=== PATIENT | male | born 1955 | race Caucasian/White ===

== ENCOUNTER 2017-03-17 09:00 | Outpatient (RCR) | payer OTHER, SELFPAY ==
[2017-02-17 00:57] VITALS: BP 186/82; PULSE 82; RESP 16; TEMP 37.1
[2017-02-19 13:16] VITALS: BP 155/77; PULSE 89; RESP 18; TEMP 37.1
--- NOTE | 2017-02-19 17:09 | PN.PCM_ITS ---
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 Current Visit: No Qualifiers: Laterality: right Qualified Code(s): L97.413 - Non-pressure chronic ulcer of right heel and midfoot with necrosis of muscle Code(s): L97.403 - Non-pressure chronic ulcer of unspecified heel and midfoot with necrosis of muscle (2) Cellulitis of left foot Status: Acute Current Visit: Yes Code(s): L03.116 - Cellulitis of left lower limb (3) Diabetic ulcer of left foot with fat layer exposed Status: Chronic Current Visit: Yes Qualifiers: Diabetes mellitus type: type 2 Code(s): E11.621 - Type 2 diabetes mellitus with foot ulcer; L97.522 - Non- pressure chronic ulcer of other part of left foot with fat layer exposed (4) Venous insufficiency of both lower extremities Status: Chronic Current Visit: Yes Code(s): I87.2 - Venous insufficiency ( chronic) (peripheral) (5) Gait instability Status: Chronic Current Visit: Yes Code(s): R26.81 - Unsteadiness on feet (6) Delayed wound healing Status: Chronic Current Visit: Yes Code(s): T14.8 - Other injury of unspecified body region (7) Vitamin D deficiency Status: Chronic Current Visit: Yes Code(s): E55.9 - Vitamin D deficiency, unspecified (8) Ulcer with necrosis of muscle Status: Chronic Current Visit: Yes (9) Infection of left foot Status: Chronic Current Visit: Yes Code(s): L08.9 - Local infection of the skin and subcutaneous tissue, unspecified (10) Charcot's joint of left foot Status: Chronic Current Visit: Yes Code(s): M14.672 - Charcot's joint, left ankle and foot Type of Wound Date of Service: 02/19/17 Chief Complaint: Left foot ulcer, charcot, cellultiis History of Wound: This is a 61 year old man with type 2 diabetes mellitus with neuropathy and Charcot neuroarthropathy presents with non-healing ulcer of L midfoot. He previously underwent a widespread debridement of his plantar foot located at his rocker-bottom Charcot deformity site with additional drainage of purulent abscess. He continues on a long course of IV antibiotics, vancomycin. He denies pain. He denies fever, chill, nausea, vomiting. He is trying to keep weight off of his foot by using a wheelchair. He resides at home at this time. He still looking into transportation availability for daily hyperbaric oxygen opportunity. Progress of Wound: Improving - Physical Exam Vital Signs Temp Pulse Resp BP 98.7 F 89 18 155/77 H 02/19/17 13:16 02/19/17 13:16 02/19/17 13:16 02/19/17 13:16 General: Alert, Oriented x3, Cooperative Extremities: No cyanosis, Capillary Refill Less than 3 Seconds, No Calf Tenderness, Diminished Peripheral Pulses, Peripheral Pulses Normal Skin: Ulcer/ Wound - No purulence, no erythema, no streaking, no necrosis, no odor left foot. His skin is atrophic. There is no exposed bone noted today Wound Measurements and Assessment - Nurse 1 - General Ulcer Measurement Start: 02/19/17 13:16 Freq: Status: Active Protocol: Activity Type Activity Date Activity User E-Sign Co-Sign Detail Recorded Client Recorded Date Recorded By Document 02/19/17 13:16 [id number] 02/19/17 13:27 MUSTAPHA 02/19/17 13:16 Wound Center Nurse 1 [Ulcer Assessment Protocol: BERNA.WD.LOC] #22 Left Medial Foot (post-op) -Combined with other wound No -Current Size (cm) - Length 7.2 -Current Size (cm) - Width 0.8 -Current Size (cm) - Depth 0.6 -Total Square Cm 5.76 -Tunneling No -Undermining/Tunneling No -Circular Undermining No -Classification - Thickness Full Thickness without Exposed Support Structure -Exudate Amt Large (67-100%) -Exudate Type Serosanguineous -Wound Margin Thickened & Rolled Under -Granulation Amt Large (67-100%) -Granulation Quality Red -Slough/Fibrin Yes -Necrosis Amt Small (1-33%) -Necrotic Tissue Type Adherent Slough -Structure Exposed N/A -Texture (Yael-wound Skin Appearance) Assessed -Moisture (Yael-wound Skin Appearance Maceration ) -Color (Yael-wound Skin Appearance) Assessed -Temperature (Yael-wound Skin No Abnormality Appearance) (Pt Warm) -Tenderness on Palpation (Yael-wound No Skin Appearance) -Ulcer Cleansing Wound Cleanser -Foul Odor after Cleansing No -Anesthetic Used 4% Lidocaine Solution 20 lt lat plantar -Combined with other wound No -Current Size (cm) - Length 4.4 -Current Size (cm) - Width 4.5 -Current Size (cm) - Depth 1.5 -Total Square Cm 19.80 -Photo Taken No -Tunneling Yes -Tunneling Position (O'clock) 6 -Tunneling Distance (cm) 3 -Undermining/Tunneling No -Circular Undermining No -Classification - Thickness Full Thickness without Exposed Support Structure -Exudate Amt Large (67-100%) -Exudate Type Serosanguineous -Wound Margin Thickened & Rolled Under -Granulation Amt Large (67-100%) -Granulation Quality Red -Slough/Fibrin Yes -Necrosis Amt Small (1-33%) -Necrotic Tissue Type Adherent Slough -Structure Exposed N/A -Texture (Yael-wound Skin Appearance) Assessed -Moisture (Yael-wound Skin Appearance Maceration ) -Color (Yael-wound Skin Appearance) Assessed -Temperature (Yael-wound Skin No Abnormality Appearance) (Pt Warm) -Tenderness on Palpation (Yael-wound No Skin Appearance) -Ulcer Cleansing Wound Cleanser -Foul Odor after Cleansing No -Anesthetic Used 4% Lidocaine Solution [Edema Assessment] -Lower Limb Edema Present Yes -Right Calf (cm) 43.3 -Right Ankle (cm) 27.4 WC - Nurse 2 - General Ulcer CM Notes Start: 02/19/17 13:16 Freq: Status: Active Protocol: Activity Type Activity Date Activity User E-Sign Co-Sign Detail Recorded Client Recorded Date Recorded By Document 02/19/17 13:51 [email or web address] [id number] 02/19/17 13:53 MUSTAPHA 02/19/17 13:51 Wound Center Nurse 2 [Procedure/Treatment] #22 Left Medial Foot (post-op) -Time 13:52 -Correct Patient Yes -Correct Side, Site, Position Yes -Correct Procedure Yes -Procedure Performed Yes -Type of Procedure Debridement -Clinical Debridement Subcutaneous -Post Debridement Size (cm) - Length 7.3 -Post Debridement Size (cm) - Width 0.8 -Post Debridement Size (cm) - Depth 0.6 -Total Square Cm 5.84 -Wound/Ulcer Outcome Not Healed -Ulcer Cleansing Rinsed/ Irrigated with Saline -Foul Odor after Cleansing No -Bioengineered Tissue No -Cetacaine Villalba No -Bleeding Controlled with Pressure -Treatment Response Procedure Tolerated Well 20 lt lat plantar -Time 13:52 -Correct Patient Yes -Correct Side, Site, Position Yes -Correct Procedure Yes -Procedure Performed Yes -Type of Procedure Debridement -Clinical Debridement Subcutaneous -Post Debridement Size (cm) - Length 4.5 -Post Debridement Size (cm) - Width 4.5 -Post Debridement Size (cm) - Depth 1.5 -Total Square Cm 20.25 -Wound/Ulcer Outcome Not Healed -Ulcer Cleansing Rinsed/ Irrigated with Saline -Foul Odor after Cleansing No -Bioengineered Tissue No -Cetacaine Villalba No -Bleeding Controlled with Pressure -Treatment Response Procedure Tolerated Well [See Physician Procedure note for Specifics] Pain Scale: 0-10 Numeric [Pain] -Is Patient Pain Free? Yes Musculoskeletal: No Tenderness to Palpation of Joints or Extremities, Muscle Wasting, - - Rocker-bottom foot left lower extremity with no gross laxity, erythema, or calor. Neurological: - - Lack of epicritic sensation to light touch bilateral Psych/Mental Status: Normal Affect, Appropriate Debridement Note Post-Debridement Measurements/Treatment WC - Nurse 2 - General Ulcer CM Notes Start: 02/19/17 13:16 Freq: Status: Active Protocol: Activity Type Activity Date Activity User E-Sign Co-Sign Detail Recorded Client Recorded Date Recorded By Document 02/19/17 13:51 [email or web address] [id number] 02/19/17 13:53 MUSTAPHA 02/19/17 13:51 Wound Center Nurse 2 #22 Left Medial Foot (post-op) -Time 13:52 -Correct Patient Yes -Correct Side, Site, Position Yes -Correct Procedure Yes -Procedure Performed Yes -Type of Procedure Debridement -Clinical Debridement Subcutaneous -Post Debridement Size (cm) - Length 7.3 -Post Debridement Size (cm) - Width 0.8 -Post Debridement Size (cm) - Depth 0.6 -Total Square Cm 5.84 -Wound/Ulcer Outcome Not Healed -Ulcer Cleansing Rinsed/ Irrigated with Saline -Foul Odor after Cleansing No -Bioengineered Tissue No -Cetacaine Villalba No -Bleeding Controlled with Pressure -Treatment Response Procedure Tolerated Well 20 lt lat plantar -Time 13:52 -Correct Patient Yes -Correct Side, Site, Position Yes -Correct Procedure Yes -Procedure Performed Yes -Type of Procedure Debridement -Clinical Debridement Subcutaneous -Post Debridement Size (cm) - Length 4.5 -Post Debridement Size (cm) - Width 4.5 -Post Debridement Size (cm) - Depth 1.5 -Total Square Cm 20.25 -Wound/Ulcer Outcome Not Healed -Ulcer Cleansing Rinsed/ Irrigated with Saline -Foul Odor after Cleansing No -Bioengineered Tissue No -Cetacaine Villalba No -Bleeding Controlled with Pressure -Treatment Response Procedure Tolerated Well Pain Scale: 0-10 Numeric Is Patient Pain Free? Yes Wound debrided: Plantar medial foot Laterality: Left Wound Grade/Stage: Grade 3 Type of Debridement: Excisional debridement Anesthesia Used: 4% Lidocaine Solution Depth: in the subcutaneous layer Percentage of wound debrided: 100 Instrument Used: 7mm curette Tissue Removed: Fibrous, devitalized subcutaneous, biofilm, slough Severity: Fat Layer Exposed Amount of bleeding with debridement: Mild Bleeding Controlled with: Pressure Patient tolerated procedure well - Additional Wound Wound debrided: Plantar central foot Laterality: Left Wound Grade/Stage: Grade 3 Type of Debridement: Excisional debridement Anesthesia Used: 4% Lidocaine Solution Depth: in the subcutaneous layer Percentage of wound debrided: 100 Instrument Used: 7mm curette Tissue Removed: Fibrous, devitalized subcutaneous, biofilm, slough Severity: Fat Layer Exposed Amount of bleeding with debridement: Mild Bleeding Controlled with: Pressure Patient tolerated procedure: Patient tolerated procedure well Assessment/Plan Active Problems (Last Reviewed 02/07/17 @ 13:48 by Renuka Key) Ulcer with necrosis of muscle (Chronic) Infection of left foot (Chronic) Cellulitis of left foot (Acute) Diabetic ulcer of left foot with fat layer exposed (Chronic) Venous insufficiency of both lower extremities (Chronic) Gait instability (Chronic) Chronic ulcer of left foot with fat layer exposed (Chronic) Delayed wound healing (Chronic) Charcot's joint of left foot (Chronic) Vitamin D deficiency (Chronic) Charcot's joint, right ankle and foot (Chronic) Assessment: see diagnoses. Plan: I reviewed and discussed his case at great length today. His surgical debridement site was evaluated. I recommend continuation of the [facility] negative pressure therapy wound VAC; this was applied today. Clinically his infection is clearing well. To continue on IV antibiotics, vancomycin, according to infectious disease recommendations. Strict offloading is necessary for the salvageability of this limb. To continue wheelchair use. Debridement was performed as noted in the clinical panel. I discussed hyperbaric oxygen therapy for him and encouraged that he considers this. This was discussed again today with his friend Lolita and they have not concluded on their decision yet. He underwent hyperbaric oxygen therapy for a different wound in the past and tolerated this well. To continue with proper nutrition to optimize healing including proper glycemic control and Glucerna supplementation. He understands he is high risk for limb loss and has recurrent non-delayed healing wounds with infections and cellulitis including sepsis. He understands a left below the knee amputation is a treatment option and may allow improved function of life and ambulation. He understands serial debridements and potential Charcot reconstruction requires significant compliance and also contributes increased risk due to his poor health. He previously met with Dr. Torres, orthopedic surgeon who reviewed the amputation option with him. He recommended holding off on the surgery unless it becomes absolutely critical. He underwent the surgical drainage and debridement with the goal of infection management this past week and is currently stabilized. I will continue to monitor her very close in the outpatient setting. To improve edema reduction. I recommended a 3M2L pressure dressing to avoid idle sitting or standing. To elevate limb at rest. He does not have home health or help changing his wound VAC and was advised to return for compression dressing and wound VAC change at least every 72 hours. to return to the wound care center 1 week or call sooner if there are any problems or concerns. I answered all of his questions.
[2017-02-21 11:06] VITALS: BP 116/92; PULSE 93; RESP 18; TEMP 36.2
[2017-02-26 13:41] VITALS: BP 157/72; PULSE 85; RESP 16; TEMP 36.3
--- NOTE | 2017-02-26 22:03 | PN.PCM_ITS ---
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 Current Visit: Yes Qualifiers: Laterality: right Qualified Code(s): L97.413 - Non-pressure chronic ulcer of right heel and midfoot with necrosis of muscle Code(s): L97.403 - Non-pressure chronic ulcer of unspecified heel and midfoot with necrosis of muscle (2) Cellulitis of left foot Status: Resolved Current Visit: Yes Code(s): L03.116 - Cellulitis of left lower limb (3) Diabetic ulcer of left foot with fat layer exposed Status: Chronic Current Visit: Yes Qualifiers: Diabetes mellitus type: type 2 Code(s): E11.621 - Type 2 diabetes mellitus with foot ulcer; L97.522 - Non- pressure chronic ulcer of other part of left foot with fat layer exposed (4) Venous insufficiency of both lower extremities Status: Chronic Current Visit: Yes Code(s): I87.2 - Venous insufficiency ( chronic) (peripheral) (5) Gait instability Status: Chronic Current Visit: Yes Code(s): R26.81 - Unsteadiness on feet (6) Delayed wound healing Status: Chronic Current Visit: Yes Code(s): T14.8 - Other injury of unspecified body region (7) Vitamin D deficiency Status: Chronic Current Visit: Yes Code(s): E55.9 - Vitamin D deficiency, unspecified (8) Ulcer with necrosis of muscle Status: Chronic Current Visit: Yes (9) Infection of left foot Status: Resolved Current Visit: Yes Code(s): L08.9 - Local infection of the skin and subcutaneous tissue, unspecified (10) Charcot's joint of left foot Status: Chronic Current Visit: Yes Code(s): M14.672 - Charcot's joint, left ankle and foot Type of Wound Date of Service: 02/27/17 Chief Complaint: Left foot ulcer, charcot History of Wound: This is a 61 year old man with type 2 diabetes mellitus with neuropathy and Charcot neuroarthropathy presents with non-healing ulcer of L midfoot. He previously underwent a widespread debridement of his plantar foot located at his rocker-bottom Charcot deformity site with additional drainage of purulent abscess. He continues on a long course of IV antibiotics, vancomycin which will be completed this upcoming Friday on February 28. He is under the management of infectious disease. He denies pain. He denies fever, chill, nausea, vomiting. He continues to remain nonweightbearing with wheelchair use at home. He resides at home at this time. He is not able to come daily for hyperbaric oxygen therapy and will not move for at this time. Progress of Wound: Improving - Physical Exam Vital Signs Temp Pulse Resp BP 97.3 F L 85 16 157/72 H 02/26/17 13:41 02/26/17 13:41 02/26/17 13:41 02/26/17 13:41 General: Alert, Oriented x3, Cooperative HEENT: Atraumatic Extremities: No cyanosis, Capillary Refill Less than 3 Seconds, No Calf Tenderness - Negative Jennifer and Cruz sign bilateral, Edema - Moderate left and unchanged from recent previous visits, Peripheral Pulses Normal - Palpable DP pulse left Skin: Ulcer/ Wound - No purulence, no erythema, no streaking, no odor, no necrosis, no probe to bone or visualization of bone left heel plantar central wound in the previous plantar medial incision and drainage site., - - There is tunneling proximal to the plantar central wound. His skin is atrophic bilateral Wound Measurements and Assessment - Nurse 1 - General Ulcer Measurement Start: 02/19/17 13:16 Freq: Status: Active Protocol: Activity Type Activity Date Activity User E-Sign Co-Sign Detail Recorded Client Recorded Date Recorded By Document 02/26/17 13:41 [facility] [id number] 02/26/17 13:52 [facility] 02/26/17 13:41 Wound Center Nurse 1 [Ulcer Assessment Protocol: .WD.LOC] #22 Left Medial Foot (post-op) -Combined with other wound No -Current Size (cm) - Length 4.4 -Current Size (cm) - Width 4.3 -Current Size (cm) - Depth 1.6 -Total Square Cm 18.92 -Photo Taken No -Epithelialization None Present -Tunneling Yes -Tunneling Position (O'clock) 6 -Tunneling Distance (cm) 3 -Exudate Amt Medium (34-66%) -Exudate Type Serosanguineous -Wound Margin Distinct, Outline Attached -Granulation Amt Large (67-100%) -Granulation Quality Pale [place] -Slough/Fibrin No -Necrosis Amt None Present (0 %) -Texture (Yael-wound Skin Appearance) Callus -Moisture (Yael-wound Skin Appearance Maceration ) Dry/Scaly -Color (Yael-wound Skin Appearance) Palor -Temperature (Yael-wound Skin No Abnormality Appearance) (Pt Warm) -Tenderness on Palpation (Yael-wound No Skin Appearance) -Ulcer Cleansing Rinsed/ Irrigated with Saline -Foul Odor after Cleansing No -Anesthetic Used 4% Lidocaine Solution 20 lt lat plantar -Combined with other wound No -Current Size (cm) - Length 7.3 -Current Size (cm) - Width 0.8 -Current Size (cm) - Depth 0.7 -Total Square Cm 5.84 -Photo Taken No -Epithelialization None Present -Tunneling No -Undermining/Tunneling No -Exudate Amt Medium (34-66%) -Exudate Type Serosanguineous -Wound Margin Distinct, Outline Attached -Granulation Amt Large (67-100%) -Granulation Quality Pale [place] -Slough/Fibrin No -Necrosis Amt None Present (0 %) -Texture (Yael-wound Skin Appearance) Callus Scarring -Moisture (Yael-wound Skin Appearance Maceration ) Dry/Scaly -Color (Yael-wound Skin Appearance) Palor -Temperature (Yael-wound Skin No Abnormality Appearance) (Pt Warm) -Tenderness on Palpation (Yael-wound No Skin Appearance) -Ulcer Cleansing Rinsed/ Irrigated with Saline -Foul Odor after Cleansing No -Anesthetic Used 4% Lidocaine Solution [Edema Assessment] -Lower Limb Edema Present Yes -Left Calf (cm) 39.4 -Left Ankle (cm) 26.4 WC - Nurse 2 - General Ulcer CM Notes Start: 02/19/17 13:16 Freq: Status: Active Protocol: Activity Type Activity Date Activity User E-Sign Co-Sign Detail Recorded Client Recorded Date Recorded By Document 02/26/17 14:33 [facility] [id number] 02/26/17 14:34 [facility] 02/26/17 14:33 Wound Center Nurse 2 [Procedure/Treatment] #22 Left Medial Foot (post-op) -Time 14:33 -Correct Patient Yes -Correct Side, Site, Position Yes -Correct Procedure Yes -Procedure Performed Yes -Type of Procedure Debridement -Clinical Debridement Subcutaneous -Post Debridement Size (cm) - Length 4.5 -Post Debridement Size (cm) - Width 4.3 -Post Debridement Size (cm) - Depth 1.6 -Total Square Cm 19.35 -Wound/Ulcer Outcome Not Healed -Ulcer Cleansing Rinsed/ Irrigated with Saline -Foul Odor after Cleansing No -Bioengineered Tissue No -Cetacaine [place] No -Bleeding Controlled with Pressure -Treatment Response Procedure Tolerated Well 20 lt lat plantar -Time 14:33 -Correct Patient Yes -Correct Side, Site, Position Yes -Correct Procedure Yes -Procedure Performed Yes -Type of Procedure Debridement -Clinical Debridement Subcutaneous -Post Debridement Size (cm) - Length 7.4 -Post Debridement Size (cm) - Width 0.8 -Post Debridement Size (cm) - Depth 0.7 -Total Square Cm 5.92 -Wound/Ulcer Outcome Not Healed -Ulcer Cleansing Rinsed/ Irrigated with Saline -Foul Odor after Cleansing No -Bioengineered Tissue No -Cetacaine [place] No -Bleeding Controlled with Pressure -Treatment Response Procedure Tolerated Well [See Physician Procedure note for Specifics] Pain Scale: 0-10 Numeric [Pain] -Is Patient Pain Free? Yes Musculoskeletal: No Tenderness to Palpation of Joints or Extremities, Muscle Wasting, - - Right transmetatarsal amputation Neurological: - - Lack of epicritic sensation light touch bilateral lower extremity Psych/Mental Status: Normal Affect, Appropriate Debridement Note Post-Debridement Measurements/Treatment WC - Nurse 2 - General Ulcer CM Notes Start: 02/19/17 13:16 Freq: Status: Active Protocol: Activity Type Activity Date Activity User E-Sign Co-Sign Detail Recorded Client Recorded Date Recorded By Document 02/19/17 13:51 [id number] 02/19/17 13:53 Document 02/26/17 14:33 [id number] 02/26/17 14:34 02/19/17 02/26/17 13:51 14:33 Wound Center Nurse 2 #22 Left Medial Foot (post-op) -Time 13:52 14:33 -Correct Patient Yes Yes -Correct Side, Site, Position Yes Yes -Correct Procedure Yes Yes -Procedure Performed Yes Yes -Type of Procedure Debridement Debridement -Clinical Debridement Subcutaneous Subcutaneous -Post Debridement Size (cm) - Length 7.3 4.5 -Post Debridement Size (cm) - Width 0.8 4.3 -Post Debridement Size (cm) - Depth 0.6 1.6 -Total Square Cm 5.84 19.35 -Wound/Ulcer Outcome Not Healed Not Healed -Ulcer Cleansing Rinsed/ Rinsed/ Irrigated with Irrigated with Saline Saline -Foul Odor after Cleansing No No -Bioengineered Tissue No No -Cetacaine [place] No No -Bleeding Controlled with Pressure Pressure -Treatment Response Procedure Procedure Tolerated Well Tolerated Well 20 lt lat plantar -Time 13:52 14:33 -Correct Patient Yes Yes -Correct Side, Site, Position Yes Yes -Correct Procedure Yes Yes -Procedure Performed Yes Yes -Type of Procedure Debridement Debridement -Clinical Debridement Subcutaneous Subcutaneous -Post Debridement Size (cm) - Length 4.5 7.4 -Post Debridement Size (cm) - Width 4.5 0.8 -Post Debridement Size (cm) - Depth 1.5 0.7 -Total Square Cm 20.25 5.92 -Wound/Ulcer Outcome Not Healed Not Healed -Ulcer Cleansing Rinsed/ Rinsed/ Irrigated with Irrigated with Saline Saline -Foul Odor after Cleansing No No -Bioengineered Tissue No No -Cetacaine [place] No No -Bleeding Controlled with Pressure Pressure -Treatment Response Procedure Procedure Tolerated Well Tolerated Well Pain Scale: 0-10 Numeric Is Patient Pain Free? Yes Yes Wound debrided: Plantar central foot Laterality: Left Wound Grade/Stage: Grade 3 Type of Debridement: Excisional debridement Anesthesia Used: 4% Lidocaine Solution Depth: in the subcutaneous layer Percentage of wound debrided: 100 Instrument Used: 5mm curette Tissue Removed: Fibrous, devitalized subcutaneous, biofilm, slough Severity: Fat Layer Exposed Amount of bleeding with debridement: Mild Bleeding Controlled with: Pressure Patient tolerated procedure well - Additional Wound Wound debrided: Plantar medial foot Laterality: Left Wound Grade/Stage: Grade 3 Type of Debridement: Excisional debridement Anesthesia Used: 4% Lidocaine Solution Depth: in the subcutaneous layer Percentage of wound debrided: 100 Instrument Used: #15 blade Tissue Removed: Fibrous, devitalized subcutaneous, biofilm, slough Severity: Fat Layer Exposed Amount of bleeding with debridement: Mild Bleeding Controlled with: Pressure Patient tolerated procedure: Patient tolerated procedure well Assessment/Plan Active Problems (Last Reviewed 02/27/17 @ 08:18 by Renuka Key) Ulcer with necrosis of muscle (Chronic) 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 Plan: I reviewed and discussed his case at great length today. His surgical debridement site was evaluated. I recommend continuation of the [facility] negative pressure therapy wound VAC; this was applied today. Clinically his infection is clearing well. To continue on IV antibiotics, vancomycin, according to infectious disease recommendations. This is scheduled to stop this upcoming February 28. Strict offloading is necessary for the salvageability of this limb. To continue wheelchair use. Debridement was performed as noted in the clinical panel. I discussed hyperbaric oxygen therapy for him and encouraged that he considers this. To continue with proper nutrition to optimize healing including proper glycemic control and Glucerna supplementation. He understands he is high risk for limb loss and has recurrent non-delayed healing wounds with infections and cellulitis including sepsis. He understands a left below the knee amputation is a treatment option and may allow improved function of life and ambulation. He understands serial debridements and potential Charcot reconstruction requires significant compliance and also contributes increased risk due to his poor health. He is stable at this time and I recommend considering additional application of advanced wound care product,amniofill (amniotic cord and placental tissue cell derived) in the operating room. I will continue to monitor her very close in the outpatient setting. Preauthorization with the insurance will be initiated. He understands I am currently not a provider on his current insurance plan for outpatient treatment and I may need to refer him to another physician for this surgery pending results. To improve edema reduction. I recommended a 3M2L pressure dressing to avoid idle sitting or standing. To elevate limb at rest. He does not have home health or help changing his wound VAC and was advised to return for compression dressing and wound VAC change at least every 72 hours. to return to the wound care center 1 week or call sooner if there are any problems or concerns. I answered all of his questions.
[2017-02-28 09:11] VITALS: BP 151/84; PULSE 82; RESP 16; TEMP 37.2
[2017-03-05 10:59] VITALS: RESP 16; TEMP 37.1
--- NOTE | 2017-03-05 21:17 | PCM.WC.PN ---
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 Qualifiers: Laterality: right Qualified Code(s): L97.413 - Non-pressure chronic ulcer of right heel and midfoot with necrosis of muscle Code(s): L97.403 - Non-pressure chronic ulcer of unspecified heel and midfoot with necrosis of muscle (2) Diabetic ulcer of left foot with fat layer exposed Status: Chronic Qualifiers: Diabetes mellitus type: type 2 Code(s): E11.621 - Type 2 diabetes mellitus with foot ulcer; L97.522 - Non-pressure chronic ulcer of other part of left foot with fat layer exposed (3) Venous insufficiency of both lower extremities Status: Chronic Code(s): I87.2 - Venous insufficiency (chronic) (peripheral) (4) Gait instability Status: Chronic Code(s): R26.81 - Unsteadiness on feet (5) Delayed wound healing Status: Chronic Code(s): T14.8 - Other injury of unspecified body region (6) Vitamin D deficiency Status: Chronic Code(s): E55.9 - Vitamin D deficiency, unspecified (7) Ulcer with necrosis of muscle Status: Chronic (8) Charcot's joint of left foot Status: Chronic Code(s): M14.672 - Charcot's joint, left ankle and foot Type of Wound Date of Service: 03/08/17 Chief Complaint: Left foot ulcer, charcot History of Wound: This is a 61 year old man with type 2 diabetes mellitus with neuropathy and Charcot neuroarthropathy presents with non-healing ulcer of L midfoot. He previously underwent a widespread debridement of his plantar foot located at his rocker-bottom Charcot deformity site with additional drainage of purulent abscess. He recently completed a course of IV antibiotics, vancomycin, which will be completed this upcoming Friday on February 28. He was under the management of infectious disease. He denies pain. He denies fever, chill, nausea, vomiting. He continues to remain nonweightbearing with wheelchair use at home. He resides at home at this time. Progress of Wound: Improving - Physical Exam Vital Signs Temp Pulse Resp BP 98.7 F 82 16 151/84 H 03/05/17 10:59 02/28/17 09:11 03/05/17 10:59 02/28/17 09:11 General: Alert, Oriented x3, Cooperative Extremities: No cyanosis, Capillary Refill Less than 3 Seconds, No Calf Tenderness, Diminished Peripheral Pulses, Edema - Bilateral lower extremities Skin: Ulcer/ Wound - No purulence, no erythema, no streaking, no odor, no exposed bone, - - atrophic skin Wound Measurements and Assessment - Nurse 1 - General Ulcer Measurement Start: 02/19/17 13:16 Freq: Status: Active Protocol: Activity Type Activity Date Activity User E-Sign Co-Sign Detail Recorded Client Recorded Date Recorded By Document 03/05/17 10:59 [facility] [id number] 03/05/17 11:11 [facility] 03/05/17 10:59 Wound Center Nurse 1 [Ulcer Assessment Protocol: BERNA.WD.LOC] #22 Left Medial Foot (post-op) -Combined with other wound No -Current Size (cm) - Length 6.8 -Current Size (cm) - Width 0.6 -Current Size (cm) - Depth 0.5 -Total Square Cm 4.08 -Date of Last Picture (Recall this 03/05/17 field) -Photo Taken Yes -Epithelialization None Present -Tunneling No -Undermining/Tunneling No -Exudate Amt Small (1-33%) -Exudate Type Serosanguineous -Wound Margin Distinct, Outline Attached -Granulation Amt Large (67-100%) -Granulation Quality [place] -Slough/Fibrin No -Necrosis Amt None Present (0 %) -Structure Exposed N/A -Texture (Yael-wound Skin Appearance) Scarring -Moisture (Yael-wound Skin Appearance Maceration ) Dry/Scaly -Color (Yael-wound Skin Appearance) Palor -Temperature (Yael-wound Skin No Abnormality Appearance) (Pt Warm) -Tenderness on Palpation (Yael-wound No Skin Appearance) -Ulcer Cleansing Wound Cleanser -Foul Odor after Cleansing No -Anesthetic Used 4% Lidocaine Solution 20 lt lat plantar -Combined with other wound No -Current Size (cm) - Length 4 -Current Size (cm) - Width 3.8 -Current Size (cm) - Depth 1.2 -Total Square Cm 15.2 -Date of Last Picture (Recall this 03/05/17 field) -Photo Taken Yes -Epithelialization None Present -Tunneling Yes -Tunneling Position (O'clock) 6 -Tunneling Distance (cm) 1.1 -Undermining/Tunneling No -Exudate Amt Small (1-33%) -Exudate Type Serosanguineous -Wound Margin Distinct, Outline Attached -Granulation Amt Large (67-100%) -Granulation Quality [place] -Slough/Fibrin No -Necrosis Amt None Present (0 %) -Texture (Yael-wound Skin Appearance) Scarring -Moisture (Yael-wound Skin Appearance Maceration ) Dry/Scaly -Color (Yael-wound Skin Appearance) [place] -Temperature (Yael-wound Skin No Abnormality Appearance) (Pt Warm) -Tenderness on Palpation (Yael-wound No Skin Appearance) -Ulcer Cleansing Wound Cleanser -Foul Odor after Cleansing No -Anesthetic Used 4% Lidocaine Solution [Edema Assessment] -Lower Limb Edema Present Yes -Left Calf (cm) 39.1 -Left Ankle (cm) 26.7 WC - Nurse 2 - General Ulcer CM Notes Start: 02/19/17 13:16 Freq: Status: Active Protocol: Activity Type Activity Date Activity User E-Sign Co-Sign Detail Recorded Client Recorded Date Recorded By Document 03/05/17 11:28 [id number] 03/05/17 11:30 [email or web address] 03/05/17 11:28 Wound Center Nurse 2 [Procedure/Treatment] #22 Left Medial Foot (post-op) -Time 11:28 -Correct Patient Yes -Correct Side, Site, Position Yes -Correct Procedure Yes -Procedure Performed Yes -Type of Procedure Debridement -Clinical Debridement Subcutaneous -Post Debridement Size (cm) - Length 6.8 -Post Debridement Size (cm) - Width 0.7 -Post Debridement Size (cm) - Depth 0.5 -Total Square Cm 4.76 -Wound/Ulcer Outcome Not Healed -Ulcer Cleansing Rinsed/ Irrigated with Saline -Foul Odor after Cleansing No -Bioengineered Tissue No -Cetacaine Flushing No -Bleeding Controlled with Pressure -Treatment Response Procedure Tolerated Well 20 lt lat plantar -Time 11:29 -Correct Patient Yes -Correct Side, Site, Position Yes -Correct Procedure Yes -Procedure Performed Yes -Type of Procedure Debridement -Clinical Debridement Subcutaneous -Post Debridement Size (cm) - Length 4 -Post Debridement Size (cm) - Width 3.8 -Post Debridement Size (cm) - Depth 1.3 -Total Square Cm 15.2 -Wound/Ulcer Outcome Not Healed -Ulcer Cleansing Rinsed/ Irrigated with Saline -Foul Odor after Cleansing No -Bioengineered Tissue No -Cetacaine Flushing No -Bleeding Controlled with Pressure -Treatment Response Procedure Tolerated Well [See Physician Procedure note for Specifics] Pain Scale: 0-10 Numeric [Pain] -Is Patient Pain Free? Yes Musculoskeletal: Muscle Wasting, - - Right heel transmetatarsal amputation. Rocker-bottom left foot with no acute laxity, warmth, or new localized edema to the Charcot region Neurological: - - Lack of epicritic sensation light touch bilateral Psych/Mental Status: Normal Affect, Appropriate Debridement Note Post-Debridement Measurements/Treatment WC - Nurse 2 - General Ulcer CM Notes Start: 02/19/17 13:16 Freq: Status: Active Protocol: Activity Type Activity Date Activity User E-Sign Co-Sign Detail Recorded Client Recorded Date Recorded By Document 02/19/17 13:51 [id number] 02/19/17 13:53 Document 02/26/17 14:33 [email or web address] 02/26/17 14:34 Document 03/05/17 11:28 [id number] 03/05/17 11:30 02/19/17 02/26/17 03/05/17 13:51 14:33 11:28 Wound Center Nurse 2 #22 Left Medial Foot (post-op) -Time 13:52 14:33 11:28 -Correct Patient Yes Yes Yes -Correct Side, Site, Position Yes Yes Yes -Correct Procedure Yes Yes Yes -Procedure Performed Yes Yes Yes -Type of Procedure Debridement Debridement Debridement -Clinical Debridement Subcutaneous Subcutaneous Subcutaneous -Post Debridement Size (cm) - Length 7.3 4.5 6.8 -Post Debridement Size (cm) - Width 0.8 4.3 0.7 -Post Debridement Size (cm) - Depth 0.6 1.6 0.5 -Total Square Cm 5.84 19.35 4.76 -Wound/Ulcer Outcome Not Healed Not Healed Not Healed -Ulcer Cleansing Rinsed/ Rinsed/ Rinsed/ Irrigated with Irrigated with Irrigated with Saline Saline Saline -Foul Odor after Cleansing No No No -Bioengineered Tissue No No No -Cetacaine Flushing No No No -Bleeding Controlled with Pressure Pressure Pressure -Treatment Response Procedure Procedure Procedure Tolerated Well Tolerated Well Tolerated Well 20 lt lat plantar -Time 13:52 14:33 11:29 -Correct Patient Yes Yes Yes -Correct Side, Site, Position Yes Yes Yes -Correct Procedure Yes Yes Yes -Procedure Performed Yes Yes Yes -Type of Procedure Debridement Debridement Debridement -Clinical Debridement Subcutaneous Subcutaneous Subcutaneous -Post Debridement Size (cm) - Length 4.5 7.4 4 -Post Debridement Size (cm) - Width 4.5 0.8 3.8 -Post Debridement Size (cm) - Depth 1.5 0.7 1.3 -Total Square Cm 20.25 5.92 15.2 -Wound/Ulcer Outcome Not Healed Not Healed Not Healed -Ulcer Cleansing Rinsed/ Rinsed/ Rinsed/ Irrigated with Irrigated with Irrigated with Saline Saline Saline -Foul Odor after Cleansing No No No -Bioengineered Tissue No No No -Cetacaine Flushing No No No -Bleeding Controlled with Pressure Pressure Pressure -Treatment Response Procedure Procedure Procedure Tolerated Well Tolerated Well Tolerated Well Pain Scale: 0-10 Numeric Is Patient Pain Free? Yes Yes Yes Wound debrided: Plantar foot Laterality: Left Wound Grade/Stage: Grade 3 Type of Debridement: Excisional debridement Anesthesia Used: 4% Lidocaine Solution Depth: in the subcutaneous layer Percentage of wound debrided: 100 Instrument Used: 5mm curette Tissue Removed: Fibrous, devitalized subcutaneous, biofilm, slough Severity: Fat Layer Exposed Amount of bleeding with debridement: Mild Bleeding Controlled with: Pressure Patient tolerated procedure well Assessment/Plan Assessment: see diagnoses. Plan: I reviewed and discussed his case at great length today. I recommend continuation of the [facility] negative pressure therapy wound VAC; this was applied today. Clinically his infection is clearing well and he completed his course of IV antibiotics. Strict offloading is necessary for the salvageability of this limb. To continue wheelchair use. Debridement was performed as noted in the clinical panel. I discussed hyperbaric oxygen therapy for him and encouraged that he considers this. To continue with proper nutrition to optimize healing including proper glycemic control and Glucerna supplementation. He understands he is high risk for limb loss and has recurrent non-delayed healing wounds with infections and cellulitis including sepsis. He understands a left below the knee amputation is a treatment option and may allow improved function of life and ambulation. He understands serial debridements and potential Charcot reconstruction requires significant compliance and also contributes increased risk due to his poor health. He is stable at this time and I recommend considering additional application of advanced wound care product,amniofix (amniotic cord and placental tissue cell derived) in the operating room. Preauthorization for this product will be initiated and upon approval he will be referred to a surgeon that is in his insurance netw To continue to improve edema reduction. I recommended a 3M2L pressure dressing to avoid idle sitting or standing. To elevate limb at rest. He does not have home health or help changing his wound VAC and was advised to return for compression dressing and wound VAC change at least every 72 hours. to return to the wound care center 1 week or call sooner if there are any problems or concerns. I answered all of his questions.
[2017-03-10 11:23] VITALS: RESP 18; TEMP 37
[2017-03-14 11:48] VITALS: BP 161/66; PULSE 78; RESP 16; TEMP 36.6
[2017-03-17 09:21] VITALS: BP 155/75; PULSE 78; RESP 18; TEMP 37.2
--- NOTE | 2017-03-20 21:44 | HP.PCM_ITS ---
History of Present Illness Date of Service: 03/17/17 - WOUND CENTER CONSULT Chief Complaint: Nonhealing diabetic ulcer left plantar foot with Charcot neuropathic osteoarthropathy and nonhealing diabetic ulcer left medial foot. REFERRING PHYSICIAN: Dr. Yanes. SPEED BELT SANDER TENDER: Dr. Rodriguez. 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 He previously underwent a widespread debridement of his plantar foot located at his rocker-bottom Charcot deformity site with additional drainage of purulent abscess on 01/24/17. He recently completed a course of IV antibiotics, vancomycin. He denies pain. He denies fever. He continues to remain nonweightbearing with wheelchair use at home. He resides at home at this time. He states the redness and swelling between the ulcers on the left medial foot and left plantar foot have increased. He had an MRI done on 01/01/17 which showed neuropathic osteoarthroplasty and no evidence of osteomyelitis. He had a Venous Doppler Study on 01/23/17 which was negative for DVT. 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 I was asked to evalaute this patient for surgical options for treatment. It is being contemplated to place an advanced wound care product such as amniofix ( amniotic cord and placental tissue cell derived). His last Prealbumin on was 27.3. Encourage nutritional supplementation with protein to help the healing process. His Hgb A1c on 01/22/17 was 8.5. The ESR on 02/28/17 was 36. The CRP on 01/22/17 was 95.70. Past Medical History Past Medical History: Chronic Problems (Last Reviewed 03/06/17 @ 09:46 by Renuka Key) Ulcer with necrosis of muscle (Chronic) SOB (shortness of breath) (Chronic) Hypersomnia (Chronic) Ulcer of midfoot with necrosis of muscle (Chronic) Diabetic ulcer of left foot with fat layer exposed (Chronic) 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 Venous insufficiency of both lower extremities (Chronic) S/P transmetatarsal amputation of foot (Chronic) 03/04/[address] 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 Hypertension. Venous insufficiency. PETRA. Obesity. Hyperlipidemia. Charcot neuropathic osteoarthropathy. Rocker bottom left foot. Amputation status right foot. Anemia. Chronic pain syndrome. Depression. LVH. PVD. Vitamin D deficiency. Former smoker. MRSA. Surgical History: - - Debridement left foot ulcer with versajet including necrotic muscle and widespread debridement plantar foot and incision and drainage left foot - 01/24/17. Bone biopsy calcaneal cuboid bone left foot and excisional debridement left plantar foot ulceration - 10/18/16. Right foot trans metatarsal amputation - 03/04/16. Partial 4th toe amputation right foot at PIP joint - 12/09/15. Excisional debridement including fascia left great toe - 04/03. Right hallux amputation at MTP joint - 12/29/14. Allergies/Adverse Reactions: Allergies cefepime Allergy (Verified 03/06/17 09:46) Hives lisinopril Allergy (Verified 03/06/17 09:46) cough sulfamethoxazole [From Octra] Allergy (Verified 03/06/17 09:46) turned red trimethoprim [From Octra] Allergy (Verified 03/06/17 09:46) turned red Penicillins Adverse Reaction (Intermediate, Verified 03/06/17 09:46) unknown Home Medications: Ambulatory Orders Medication Instructions Recorded Insulin Detemir [Levemir FlexPen] 100 units SC BID 10/12/14 Citalopram [Celexa] 40 mg PO DAILY 11/15/14 Gabapentin [Neurontin] 800 mg PO 4X/DAY 11/15/14 Metformin HCl [Glucophage] 1,000 mg PO BIDCM 11/15/14 Multivitamins,Therapeutic 1 tab PO DAILY 11/15/14 [Multivitamin] Aspirin [Aspirin, Baby] 81 mg PO DAILY@0800 04/03/15 Omeprazole [Prilosec] 40 mg PO BID PRN 02/11/16 Losartan Potassium [Cozaar] 100 mg PO DAILY 06/05/16 MorphINE [Ms Contin] 15 mg PO BID 10/16/16 Clopidogrel Bisulfate [Plavix] 75 mg PO DAILY 01/01/17 BuPROPion (XL) [Wellbutrin Xl] 150 mg PO DAILY 01/21/17 Insulin Aspart [Novolog Flexpen] 36 units SC TIDCM #0 01/27/17 Magnesium Hydroxide [Milk Of 30 ml PO DAILY PRN PRN udc 01/27/17 Magnesia] clindamycin HCl 300 mg capsule 300 mg PO .QID cap 01/31/17 gemfibrozil 600 mg tablet 600 mg PO BID 01/31/17 glimepiride 4 mg tablet 4 mg PO BID tab 01/31/17 - Family History Maternal Cancer, Heart Disease Paternal Heart Disease Lives: Spouse/ Significant Other Smoking Status: Former smoker Tobacco Use: Non-smoker Alcohol: None Drugs: None Review of Systems Constitutional: Reports: Malaise. Denies: Fever, Fatigue Eyes: Denies: Cataracts HEENT: Denies: Nasal Congestion, Sore Throat Cardiovascular: Denies: Chest Pain Respiratory: Denies: Cough, Shortness of Breath Gastrointestinal: Denies: Constipation, Diarrhea, Nausea, Vomiting Genitourinary: Denies: Frequency, Hematuria Musculoskeletal: Reports: Foot Pain. Denies: Back Pain, Hand Pain, Neck Pain Skin: Reports: Wounds - nonhealing ulcer left plantar foot. Neurological: Denies: Headaches Psychiatric: Reports: Depression. Denies: Anxiety Endocrine: Reports: - - has diabetes melltus.. Denies: Polydipsia, Polyuria Hematologic/ Lymphatic: Reports: Anemia. Denies: Easy Bruising, Hx of blood clot - Physical Exam Vital Signs Temp Pulse Resp BP 98.9 F 78 18 155/75 H 03/17/17 09:21 03/17/17 09:21 03/17/17 09:21 03/17/17 09:21 General: Alert, Oriented x3 HEENT: PERRLA, EOMI Oral: Moist Mucosa Neck: Supple Lungs: Clear to auscultation Cardiovascular: Regular rate, Regular Rhythm Abdomen: Soft, Non-Distended Extremities: No clubbing, No cyanosis, Diminished Peripheral Pulses, Edema - mild edema in lower extremities., - - nonhealing ulcer left plantar foot with Charcot deformity. has right foot TMA. Skin: Ulcer/ Wound - nonhealing ulcer left plantar foot and left medial foot. Intervening redness that the patient states is new since the antibiotics were stopped. Lymphatic: No Cervical, Supraclavicular, or Inguinal Adenopathy Neurological: Cranial nerves II-XII grossly intact Psych/Mental Status: Normal Affect, Appropriate Debridement Note Post-Debridement Measurements/Treatment WC - Nurse 2 - General Ulcer CM Notes Start: 02/19/17 13:16 Freq: Status: Active Protocol: Activity Type Activity Date Activity User E-Sign Co-Sign Detail Recorded Client Recorded Date Recorded By Document 02/19/17 13:51 [id number] 02/19/17 13:53 Document 02/26/17 14:33 [id number] 02/26/17 14:34 Document 03/05/17 11:28 [id number] 03/05/17 11:30 Document 03/17/17 09:50 [id number] 03/17/17 09:55 02/19/17 02/26/17 03/05/17 13:51 14:33 11:28 Wound Center Nurse 2 #22 Left Medial Foot (post-op) -Time 13:52 14:33 11:28 -Correct Patient Yes Yes Yes -Correct Side, Site, Position Yes Yes Yes -Correct Procedure Yes Yes Yes -Procedure Performed Yes Yes Yes -Type of Procedure Debridement Debridement Debridement -Clinical Debridement Subcutaneous Subcutaneous Subcutaneous -Post Debridement Size (cm) - Length 7.3 4.5 6.8 -Post Debridement Size (cm) - Width 0.8 4.3 0.7 -Post Debridement Size (cm) - Depth 0.6 1.6 0.5 -Total Square Cm 5.84 19.35 4.76 -Wound/Ulcer Outcome Not Healed Not Healed Not Healed -Ulcer Cleansing Rinsed/ Rinsed/ Rinsed/ Irrigated with Irrigated with Irrigated with Saline Saline Saline -Foul Odor after Cleansing No No No -Bioengineered Tissue No No No -Cetacaine [place] No No No -Bleeding Controlled with Pressure Pressure Pressure -Treatment Response Procedure Procedure Procedure Tolerated Well Tolerated Well Tolerated Well #20 lt lat plantar -Time 13:52 14:33 11:29 -Correct Patient Yes Yes Yes -Correct Side, Site, Position Yes Yes Yes -Correct Procedure Yes Yes Yes -Procedure Performed Yes Yes Yes -Type of Procedure Debridement Debridement Debridement -Clinical Debridement Subcutaneous Subcutaneous Subcutaneous -Post Debridement Size (cm) - Length 4.5 7.4 4 -Post Debridement Size (cm) - Width 4.5 0.8 3.8 -Post Debridement Size (cm) - Depth 1.5 0.7 1.3 -Total Square Cm 20.25 5.92 15.2 -Wound/Ulcer Outcome Not Healed Not Healed Not Healed -Ulcer Cleansing Rinsed/ Rinsed/ Rinsed/ Irrigated with Irrigated with Irrigated with Saline Saline Saline -Foul Odor after Cleansing No No No -Bioengineered Tissue No No No -Cetacaine [place] No No No -Bleeding Controlled with Pressure Pressure Pressure -Treatment Response Procedure Procedure Procedure Tolerated Well Tolerated Well Tolerated Well Pain Scale: 0-10 Numeric Is Patient Pain Free? Yes Yes Yes 03/17/17 09:50 Wound Center Nurse 2 #22 Left Medial Foot (post-op) -Time 09:50 -Correct Patient Yes -Correct Side, Site, Position Yes -Correct Procedure Yes -Procedure Performed Yes -Type of Procedure Debridement -Clinical Debridement Subcutaneous -Post Debridement Size (cm) - Length 6.5 -Post Debridement Size (cm) - Width 0.4 -Post Debridement Size (cm) - Depth 0.3 -Total Square Cm 2.60 -Wound/Ulcer Outcome Not Healed -Ulcer Cleansing Rinsed/ Irrigated with Saline -Foul Odor after Cleansing No -Bioengineered Tissue No -Cetacaine [place] No -Bleeding Controlled with Pressure -Treatment Response Procedure Tolerated Well #20 lt lat plantar -Time 09:51 -Correct Patient Yes -Correct Side, Site, Position Yes -Correct Procedure Yes -Procedure Performed Yes -Type of Procedure Debridement -Clinical Debridement Subcutaneous -Post Debridement Size (cm) - Length 4.5 -Post Debridement Size (cm) - Width 3.6 -Post Debridement Size (cm) - Depth 1.5 -Total Square Cm 16.20 -Wound/Ulcer Outcome Not Healed -Ulcer Cleansing Rinsed/ Irrigated with Saline -Foul Odor after Cleansing No -Bioengineered Tissue No -Cetacaine [place] No -Bleeding Controlled with Pressure -Treatment Response Procedure Tolerated Well Pain Scale: 0-10 Numeric Is Patient Pain Free? Yes Wound debrided: #20 Left plantar foot. Laterality: Left Wound Grade/Stage: 2. Type of Debridement: Excisional debridement Anesthesia Used: 4% Lidocaine Solution Depth: Down to and including healthy tissue, in the subcutaneous layer Percentage of wound debrided: 100 Instrument Used: 5mm curette Tissue Removed: subcutaneous tissue. Severity: Fat Layer Exposed Amount of bleeding with debridement: Mild Bleeding Controlled with: Pressure Patient tolerated procedure well - Additional Wound Wound debrided: #22 Left medial foot. Laterality: Left Wound Grade/Stage: 2. Type of Debridement: Excisional debridement Anesthesia Used: 4% Lidocaine Solution Depth: Down to and including healthy tissue, in the subcutaneous layer Percentage of wound debrided: 100 Instrument Used: 5mm curette Tissue Removed: subcutaneous tissue. Severity: Fat Layer Exposed Amount of bleeding with debridement: Mild Bleeding Controlled with: Pressure Patient tolerated procedure: Patient tolerated procedure well Assessment/Plan Assessment: 1. Nonhealing diabetic ulcer left plantar foot. 2. Nonhealing diabetic ulcer left medial foot. 3. Diabetes mellitus. 4. History of MRSA. 5. Charcot foot neuropathic osteoarthropathy. 6. Former smoker. Plan: Put the VAC on hold and start Silver dressing changes daily. Continue Spandigrip to help with swelling. Discussed with the patient that he appears to need additional operative debridement prior to considering any placement of placental tissue grafting. With the reoccurrence of redness between the ulcers of the left medial foot and the left plantar foot, we will put the placental tissue grafting on hold at the present time. Will schedule further surgical preparation left plantar foot and left medial foot with incision and drainage and excisional debridement. Any exposed bone after the debridement will be biopsied and sent to Pathology to evaluate for osteomyelitis and to Microbiology for culture. Any soft tissue that is removed will also be sent to Pathology for analysis to rule out carcinoma and to Microbiology for culture. A positive culture may necessitate antibiotic modification. Postop wound care will be with a VAC or with Silver dressing changes daily. Important to keep his left leg elevated as well as to keep his left foot nonweightbearing. A knee walker would be beneficial. Patient has a lot of neuropathy so more complex reconstruction with a microvascular free tissue transfer would have high risk of not being ultimately successful because of the presence of a Charcot foot as well as being neuropathic. So if localized treatment is not successful or if he develops an aggressive infection that starts to progress more proximally toward the ankle and proximally, then the only option would be BKA. Don't want to delay too long and then end up with an AKA if the infection spreads too far proximally. He is aware of that possibility and wishes to proceed. Surgery would be under local anesthesia and IV sedation. He would be admitted for a few days for aggressive IV antibiotic therapy with ID assistance. He may possibly need another PICC line. Patient understands that it is fruitless to continue with indefinite rounds of IV antibiotics and debridements if his foot worsens the moment he stops the IV antibiotics. His last Prealbumin on 01/01/17 was 27.3. Encourage nutritional supplementation with protein to help the healing process. His Hgb A1c on 01/22/17 was 8.5. The ESR on 02/28/17 was 36. The CRP on 01/22/17 was 95.70. Patient was informed of the risks and complications of the procedure including alternatives to surgery. These were discussed with him personally. He voices understanding and wishes to proceed. Will schedule his surgery in the next week. Perioperatively will treat with Vancomycin because of his previous history of MRSA. Followup after his surgery.
== END 2017-03-19 23:59 ==
LOC: WC 09:00
PROVIDERS: Family Provider Internal Medicine; PCP Internal Medicine; Visit Provider Podiatrist
DX: E11.622 Type 2 diabetes mellitus with other skin ulcer (principal); L97.413 Non-pressure chronic ulcer of right heel and midfoot with necrosis of muscle; L03.116 Cellulitis of left lower limb; I87.2 Venous insufficiency (chronic) (peripheral); R26.81 Unsteadiness on feet; E55.9 Vitamin D deficiency, unspecified; M14.672 Charcot's joint, left ankle and foot; E11.40 Type 2 diabetes mellitus with diabetic neuropathy, unspecified
CPT/HCPCS: 11042; 11045; 29581; 97605; 99211; 99213; 99214; G0463

== ENCOUNTER 2017-03-24 11:25 | Inpatient (IN) | payer OTHER, SELFPAY ==
[2017-03-24 09:16] VITALS: BP 154/71; BMI 37.5
[2017-03-24 11:38] VITALS: BMI 40.1
[2017-03-24 11:47] VITALS: BMI 40.2
--- NOTE | 2017-03-24 14:01 | MRI_ITS ---
STUDY: MRI LEFT ANKLE WITH AND WITHOUT CONTRAST REASON FOR EXAM: Male, 61 years old. ULCER,OPEN WOUND PLANTAR SURFACE LEFT HEEL SINCE APPROX 09/2016 TECHNIQUE: Standarized fat and water weighted pulse sequences were obtained in all 3 orthogonal plane pre and post intravenous administration of 10 ml of Gadavist contrast material. Sag T1 FSE SAG FSE STIR AX T1 FSE AX T2 Cor T2, AX T1 FSE C+ FS Sag T1 FSE C+ FS COMPARISON: X-ray January 22, 2017 FINDINGS: There is evidence of Charcot foot with rocker-bottom deformity of the arch of the foot. The navicula appears disintegrated with vertical orientation of the talus and prominent arthritic change at the articulation. There also appears marked osteoarthritic change with osseous erosions and deformity of the calcaneal cuboid articulation. Diffuse arthrosis of the tarsus noted. The tarsal tunnel is obliterated with soft tissue abnormality. Subchondral cystic changes are seen diffusely involving the hindfoot articulations and also of the articulations of the remaining navicula with the medial cuneiform. The cuneiforms are otherwise relatively preserved and the tarsometatarsal articulations are preserved. There is an ulceration seen along the plantar aspect of the foot and this is associated with indurated soft tissue that extends to the plantar fascia and deep to the plantar fascia. There does appear plantar calcaneal spur and plantar fasciitis. There is enhancement diffusely associated with the areas of abnormal inflammation, but there is no evidence of a defined abscess. Though there is prominent degenerative change and soft tissue abnormality, I do not see a focal area that is suggestive of osteomyelitis. MRI/Lower Ext No Joint W/WO Cont IMPRESSION: Charcot foot with rocker-bottom deformity and plantar ulceration as well as induration but I do not see evidence of a defined abscess. See above description. Electronically Signed: Ritu Celestin MD at 22:42 EST Tel , Service support ,
[2017-03-24] MEDS: LORazepam 2 MG/ML Syringe 1 MG IV (14:52)
[2017-03-24] MEDS: 0.9% NaCl PICC Flush 10 ML IV (14:52)
[2017-03-24] MEDS: Lactated Ringers 1,000 ML 60 ML IV (14:52)
[2017-03-24] MEDS: Glucerna Shake 120 ML LIQUID PO ×3 (15:01→22:00)
--- NOTE | 2017-03-24 15:02 | NURSING ---
PT TO MRI VIA BED
--- NOTE | 2017-03-24 15:06 | PCA ---
pt off floor
--- NOTE | 2017-03-24 16:48 | PCM.CONS.GEN ---
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 (12) Ulcer of right lower extremity with fat layer exposed Status: Resolved (13) Venous insufficiency of both lower extremities Status: Chronic (14) S/P transmetatarsal amputation of foot Status: Chronic Comment: 03/04/[address] Yanes (15) Gait instability Status: Chronic (16) Chronic ulcer of left foot with fat layer exposed Status: Chronic (17) Delayed wound healing Status: Chronic (18) Malnutrition Status: Chronic (19) Fracture of left foot Status: Resolved (20) Charcot's joint of left foot Status: Chronic (21) Vitamin D deficiency Status: Chronic (22) Peripheral vascular disease Status: Chronic (23) Charcot's joint, right ankle and foot Status: Chronic (24) Varicose veins of left lower extremity with ulcer of calf Status: Chronic (25) Non-pressure chronic ulcer of other part of right foot with fat layer exposed Status: Resolved (26) Toe osteomyelitis, right Status: Resolved (27) Hypertension Status: Chronic (28) Amputation of right foot with complication Status: Chronic (29) Dehiscence of amputation stump Status: Inactive (30) Type 2 diabetes mellitus with diabetic polyneuropathy Status: Chronic (31) Stasis dermatitis of both legs Status: Chronic (32) Sleep apnea Status: Chronic Qualifiers: Comment: CPAP 15 cm H20, 100% compliant (33) Neuropathy Status: Chronic Comment: secondary to diabetes (34) Morbid obesity Status: Chronic (35) Anemia Status: Chronic (36) Dyslipidemia Status: Chronic (37) Left ventricular hypertrophy Status: Chronic (38) Chronic pain syndrome Status: Chronic (39) Depression Status: Chronic Qualifiers: Reason for Consult Date of Consultation: 03/24/17 Reason for Consultation: Nonhealing left foot wound History of Present Illness: The patient is a 61 year old M who presents as a direct admit through Dr. Rodriguez's office due to nonhealing left plantar foot ulcer. He underwent debridement of chronic left foot ulcer which included necrotic muscle and widespread debridement of plantar foot 01/24/[address] Yanes. Cultures came back positive for MRSA at that time. Infectious disease was consulted during previous admission. Patient states he was on IV vancomycin for over 30 days. He has not been on further antibiotics since that time. He has had a wound VAC on the left foot wound in which she follows up with [facility]. Patient states wound VAC was in place up until today. He denies fever, chills. Complains of mild nausea. Complains of increased pain of the left foot. MRI completed 01/01/2017 showed neuropathic osteoarthropathic D with no evidence of osteomyelitis. Lower extremity arterial study completed 01/22/2017 showed left leg with moderate stenosis in the left popliteal artery and biphasic flow through the tibials into the ankle. 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 Yanes, type 2 diabetes mellitus, hypertension, hyperlipidemia, obstructive sleep apnea, PAD, depression, anemia of chronic disease, obesity, hypoalbuminemia. Hospitalist consulted for medical management. Plan is for patient to undergo further surgical intervention on left foot plantar ulcer. 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 Venous insufficiency of both lower extremities (Chronic) S/P transmetatarsal amputation of foot (Chronic) 03/04/[address] 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) Hypertension (Chronic) Amputation of right foot with complication (Chronic) Type 2 diabetes mellitus with diabetic polyneuropathy (Chronic) Stasis dermatitis of both legs (Chronic) Sleep apnea (Chronic) CPAP 15 cm H20, 100% compliant Neuropathy (Chronic) secondary to diabetes Morbid obesity (Chronic) Anemia (Chronic) Dyslipidemia (Chronic) Left ventricular hypertrophy (Chronic) Chronic pain syndrome (Chronic) Depression (Chronic) Allergies cefepime Allergy (Verified 03/06/17 09:46) Hives lisinopril Allergy (Verified 03/06/17 09:46) cough sulfamethoxazole [From Octra] Allergy (Verified 03/06/17 09:46) turned red trimethoprim [From ] Allergy (Verified 03/06/17 09:46) turned red Penicillins Adverse Reaction (Intermediate, Verified 03/06/17 09:46) unknown Home Medications: Ambulatory Orders Medication Instructions Recorded Insulin Detemir [Levemir FlexPen] 100 units SC BID 10/12/14 Citalopram [Celexa] 40 mg PO BID 11/15/14 Gabapentin [Neurontin] 800 mg PO DAILY 11/15/14 Metformin HCl [Glucophage] 1,000 mg PO BIDCM 11/15/14 Losartan Potassium [Cozaar] 100 mg PO DAILY 06/05/16 MorphINE [Ms Contin] 15 mg PO TID 10/16/16 Clopidogrel Bisulfate [Plavix] 75 mg PO DAILY 01/01/17 BuPROPion (XL) [Wellbutrin Xl] 150 mg PO DAILY 01/21/17 Magnesium Hydroxide [Milk Of 30 ml PO DAILY PRN PRN udc 01/27/17 Magnesia] glimepiride 4 mg tablet 4 mg PO BID tab 01/31/17 Insulin Aspart [Novolog Flexpen] 30 units SC TIDCM 03/24/17 Naproxen 500 mg PO BID 03/24/17 Simvastatin 40 mg PO DAILY 03/24/17 Triamterene/Hydrochlorothiazid 1 each PO DAILY 03/24/17 [Triamterene-Hctz 37.5-25 mg Cp] Vitamin D3 50,000 units PO QWEEK 03/24/17 Surgical History: - - Debridement left foot ulcer with versajet including necrotic muscle and widespread debridement plantar foot and incision and drainage left foot - 01/24/17. Bone biopsy calcaneal cuboid bone left foot and excisional debridement left plantar foot ulceration - 10/18/16. Right foot trans metatarsal amputation - 03/04/16. Partial 4th toe amputation right foot at PIP joint - 12/09/15. Excisional debridement including fascia left great toe - 04/03/15. Right hallux amputation at MTP joint - 12/29/14. Psychiatric History: Depression Lives: Spouse/ Significant Other Smoking Status: Former smoker Alcohol: None Drugs: None - *Family History Maternal History Items: Cancer, Heart Disease Paternal History Items: Heart Disease Review of Systems Constitutional: Denies: Chills, Fever HEENT: Denies: Head Aches, Sinus Congestion, Sinus Drainage Cardiovascular: Denies: Chest Pain, Palpitations Respiratory: Denies: Cough, Shortness of breath at rest, Sputum production Gastrointestinal: Reports: Nausea. Denies: Abdominal Pain, Constipation, Diarrhea, Vomiting Genitourinary: Denies: Dysuria Musculoskeletal: Denies: Joint Pain, Joint Tenderness Skin: Reports: Wounds - Left foot, nonhealing. Denies: Rash Neurological: Reports: Balance problems Psychiatric: Reports: Depression Hematologic/ Lymphatic: Denies: Easy Bruising, Easy Bleeding - Physical Exam General: Alert, Oriented x3, Cooperative, No apparent distress HEENT: Atraumatic, PERRLA, EOMI, Normocephalic Neck: Supple, No JVD, Negative Carotid Bruits Lungs: Clear to auscultation, Diminished Cardiovascular: Regular rate, Regular Rhythm, Normal S1, Normal S2, No murmurs Abdomen: Bowel Sounds Present, Soft, Non Tender, Non-Distended, Obese Extremities: No cyanosis, No Calf Tenderness Skin: - - Left foot nonhealing plantar wound, dressing clean dry and intact. Musculoskeletal: No Tenderness to Palpation of Joints or Extremities Neurological: Cranial nerves II-XII grossly intact Psych/Mental Status: Normal Affect, Appropriate Vital Signs BP 154/71 H 03/24/17 09:16 Weight: 145.773 kg Body Mass Index (BMI) 40.1 Finger Stick Blood Glucose 185 Intake and Output for Last 24 Hours 03/22/17 03/23/17 03/24/17 23:59 23:59 23:59 Intake Total 200 / 200 Balance 200 / 200 Assessment/Plan 1. Nonhealing left diabetic plantar foot ulcer with Charcot neuropathic osteoarthropathy and nonhealing diabetic ulcer left medial foot-patient underwent debridement with Dr. Yanes on 01/24/2017 which included necrotic muscle and widespread debridement of plantar foot. Patient wound culture positive for MRSA at that time and patient received IV vancomycin for over 30 days. Patient has had a wound VAC and followed up with wound clinic. Wound healing is not progressing. Dr. Rodriguez planning on further surgical intervention. MRI of left lower extremity pending. MRI completed 01/01/2017 showed neuropathic osteoarthropathy with no evidence of osteomyelitis. Patient was started on clindamycin IV, IV Levaquin and IV vancomycin. Consult wound RN. Morphine as needed for pain. Zofran for nausea. 2. Type 2 diabetes mellitus with associated peripheral neuropathy-hold oral regimen, ADA diet. Accu-Cheks before meals at bedtime with sliding scale insulin. Continue home insulin regimen of scheduled NovoLog and Levemir. Most recent hemoglobin A1c 8.5%. Repeat A1c pending. 3. Hypertension-stable, continue home regimen. 4. Hyperlipidemia-continue statin. 5. Obstructive sleep apnea-CPAP nightly. Patient follows with Dr. Kent. 6. PAD-status post amputation of the right transmetatarsal amputation. Continue aspirin, statin. 7. Depression-continue home medication regimen. 8. Anemia of chronic disease-stable, monitor CBC. 9. Obesity-encouraged lifestyle dietary modifications. 10. Hypoalbuminemia-continue Greg supplementation. Consult nutrition/dietitian. DVT prophylaxis-Lovenox subcu. This patient was seen by DAMIAN Humphreys under the supervision of Dr. Che.
[2017-03-24] MEDS: Clindamycin 600 MG/50 ML BAG 100 MG IV ×2 (16:53→22:00)
[2017-03-24 17:01] LABS: Bedside Glucose 106 mg/dL (70-110)
[2017-03-24 17:14] LABS: Hematocrit 32.8 % (40-54); Hemoglobin 10.1 g/dl (13.0-16.5); Mean Corp Hgb Conc 30.8 g/gl (32-36); Mean Corpuscular Hgb 26.4 pg (27.0-32.0); Mean Corpuscular Volume 85.6 fL (80-94); Mean Platelet Vol. 8.6 fl (6.2-12.0); Platelet Count 295 K/mm3 (150-450); RBC Distribution Width SD 46.6 fl (35.1-43.9); Red Blood Count 3.83 M/mm3 (4.6-6.2); White Blood Count 6.3 K/mm3 (4.4-11.0)
[2017-03-24 17:16] LABS: Scan Indicated on CBC? Y/N NO
[2017-03-24 17:22] LABS: Erythrocyte Sedimentation Rate 31 mm/hr (0-20)
[2017-03-24 17:39] LABS: AST(SGOT) 21 U/L (15-37); Alanine Aminotransfer ALT/SGPT 30 U/L (16-61); Albumin, Serum 3.4 g/dL (3.2-5.0); Alkaline Phosphatase 97 U/L (45-117); Anion Gap 8 (5-15); BUN 18 mg/dL (7-18); BUN/Creat Ratio 20.9 RATIO (10-20); CRP 7.57 mg/L (0.0-3.0); Calcium,Total 8.7 mg/dL (8.5-10.1); Chloride 100 mmol/L (98-107); Creatinine, Serum 0.86 mg/dL (0.70-1.30); EST Glomerular Filtration Rate 96 mL/min (>60); Est Glom Filt Rate - Afr Amer 116 mL/min (>60); Estimated Creatinine Clearance 109.17 ml/min; Globulin 3.5 g/dL (2.2-4.2); Glucose 108 mg/dL (74-106); Potassium 3.9 mmol/L (3.5-5.1); Prealbumin 32.7 mg/dL (20.0-40.0); Protein, Total 6.9 g/dL (6.4-8.2); Sodium Level 138 mmol/L (136-145)
[2017-03-24 17:41] LABS: Hemoglobin A1c 8.6 % (4.2-6.3)
[2017-03-24] MEDS: oxyCODONE 5 MG Tablet 10 MG PO (17:56)
[2017-03-24 18:55] VITALS: BP 148/71; PULSE 72; RESP 18; TEMP 36.4; O2SAT 93; BMI 40.1
--- NOTE | 2017-03-24 19:13 | PN.PCM_ITS ---
Type of Wound Date of Service: 03/24/17 Chief Complaint: Nonhealing diabetic ulcer left plantar foot with Charcot neuropathic osteoarthropathy and nonhealing diabetic ulcer left medial foot. 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 He previously underwent a widespread debridement of his plantar foot located at his rocker-bottom Charcot deformity site with additional drainage of purulent abscess on 01/24/17. He recently completed a course of IV antibiotics, vancomycin. He denies pain. He denies fever. He continues to remain nonweightbearing with wheelchair use at home. He resides at home at this time. He states the redness and swelling between the ulcers on the left medial foot and left plantar foot have increased. He had an MRI done on 01/01/17 which showed neuropathic osteoarthroplasty and no evidence of osteomyelitis. He had a Venous Doppler Study on 01/23/17 which was negative for DVT. 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 I was asked to evalaute this patient for surgical options for treatment. It was being contemplated to place an advanced wound care product such as amniofix (amniotic cord and placental tissue cell derived). His last Prealbumin on 01/01 was 27.3. Encourage nutritional supplementation with protein to help the healing process. His Hgb A1c on 01/22/17 was 8.5. The ESR on 02/28/17 was 36. The CRP on 01/22/17 was 95.70. When I saw him last week I recommended further operative debridement electively before placing Amniofix. Today the patient comes in complaining of increasing pain and redness and swelling on his left foot. Progress of Wound: Increasing pain and redness and swelling left foot. - Physical Exam Vital Signs BP 154/71 H 03/24/17 09:16 General: Alert, Oriented x3 HEENT: PERRLA, EOMI Neck: Supple Lungs: Clear to auscultation Cardiovascular: Regular rate, Regular Rhythm Abdomen: Soft, Non-Distended Extremities: No clubbing, No cyanosis, Diminished Peripheral Pulses, Edema - increased swelling left foot extending onto distal leg., - - nonhealing ulcer left plantar foot with Charcot deformity. has right foot TMA. Skin: Ulcer/ Wound - nonhealing ulcer left plantar foot and left medial foot. Intervening redness that has worsened. There is increased tenderness and swelling. Lymphatic: - - no inguinal adenopathy. Neurological: Cranial nerves II-XII grossly intact Psych/Mental Status: Normal Affect, Appropriate Debridement Note No debridement was done today because it was recommended to the patient to be admitted to the hospital for IV antibiotics and more aggressive wound care in preparation for operative debridement. Assessment/Plan Active Problems (Last Reviewed 03/06/17 @ 09:46 by Renuka Key) Osteomyelitis (Acute) Assessment: 1. Nonhealing diabetic ulcer left plantar foot with infection. 2. Nonhealing diabetic ulcer left medial foot with infection. 3. Diabetes mellitus. 4. History of MRSA. 5. Charcot foot neuropathic osteoarthropathy. 6. Former smoker. Plan: The patient's left foot is more swollen, more painful and redder with evidence of infection. When I saw him last week I was going to schedule an elecctive debridement of these nonhealing ulcers on his left foot. However, his left foot looks worse today. I recommend to the patient to be admitted to the hospital and start IV antibiotics with Vancomycin. Will proceed with operative debridement while an inpatient. When admitted will obtain an MRI. Will continue Silver dressing changes. After surgery, will apply the VAC. Discussed with the patient that with the sudden worsening of his left foot with infection, he is at increased risk for amputation. He is aware of that risk and wishes to proceed with aggressive surgical debridement and wound care and IV antibiotics. He states his left foot does well on IV antibiotics. However when he stops the IV antibiotics, his foot becomes re-infected pretty consistently. At the time of surgery, if there is any exposed bone, it will be biopsied and sent to Pathology to evaluate for osteomyelitis and to Microbiology for culture. Any soft tissue that is removed will also be sent to Pathology for analysis to rule out carcinoma and to Microbiology for culture. A positive culture may necessitate antibiotic modification. His last Prealbumin on 01/01/17 was 27.3. Encourage nutritional supplementation with protein to help the healing process. His Hgb A1c on 01/22/17 was 8.5. The ESR on 02/28/17 was 36. The CRP on 01/22/17 was 95.70. Will recheck these labs. Patient was informed of the risks and complications of the procedure including alternatives to surgery. These were discussed with him personally. He voices understanding and wishes to proceed. While hospitalized he will need another PICC line placed for care home IV antibiotics. Will consult Hospitalist group for medical management. Will consult ID to help with antibiotic management.
[2017-03-24 21:50] VITALS: BP 142/65; PULSE 73; RESP 18; TEMP 36.8; O2SAT 94
[2017-03-24] MEDS: Citalopram 40 MG TABLET PO (22:00)
[2017-03-24] MEDS: Docusate Sodium 100 MG Capsule PO (22:00)
[2017-03-24 22:16] LABS: Bedside Glucose 160 mg/dL (70-110)
[2017-03-25] VITALS (9 sets, daily range): BP systolic 101–148; BP diastolic 50–76; PULSE 71–80; RESP 14–18; TEMP 36.1–37.2; O2SAT 92–100
[2017-03-25 05:30] LABS: Absolute Lymphocyte Count 1.36 X10^3/ul (0.83-4.51); Absolute Neutrophil Count 3.1 X10^3/uL (2.0-7.7); Basophil# 0.03 X10^3/uL; Basophil% 0.6 % (0-1); Eosinophil# 0.21 X10^3/uL; Eosinophils% 4.1 % (0-5); Hematocrit 33.6 % (40-54); Hemoglobin 10.3 g/dl (13.0-16.5); Lymphocyte # 1.36 X10^3/ul (4.0); Lymphocyte % 26.8 % (19-41); Mean Corp Hgb Conc 30.7 g/gl (32-36); Mean Corpuscular Hgb 26.3 pg (27.0-32.0); Mean Corpuscular Volume 85.9 fL (80-94); Mean Platelet Vol. 8.6 fl (6.2-12.0); Monocyte# 0.34 X10^3/uL; Monocyte% 6.7 % (0-10); Neutrophil # 3.11 X10^3/uL (2.7-7.7); Neutrophil % 61.4 % (47-70); Platelet Count 267 K/mm3 (150-450); RBC Distribution Width CV 15.1 % (11.6-14.6); RBC Distribution Width SD 46.9 fl (35.1-43.9); Red Blood Count 3.91 M/mm3 (4.6-6.2); White Blood Count 5.1 K/mm3 (4.4-11.0)
[2017-03-25] MEDS: Ondansetron 4 MG/2 ML Vial IV ×2 (05:30→20:05)
[2017-03-25 05:37] LABS: POSITIVE COUNT NO; POSITIVE DIFFERENTIAL NO; POSITIVE MORPHOLOGY NO
[2017-03-25 05:43] LABS: Anion Gap 7 (5-15); BUN 17 mg/dL (7-18); BUN/Creat Ratio 19.7 RATIO (10-20); Calcium,Total 8.9 mg/dL (8.5-10.1); Chloride 100 mmol/L (98-107); Creatinine, Serum 0.86 mg/dL (0.70-1.30); EST Glomerular Filtration Rate 96 mL/min (>60); Est Glom Filt Rate - Afr Amer 116 mL/min (>60); Estimated Creatinine Clearance 109.17 ml/min; Glucose 151 mg/dL (74-106); Potassium 4.2 mmol/L (3.5-5.1); Sodium Level 138 mmol/L (136-145)
[2017-03-25] MEDS: oxyCODONE 5 MG Tablet 10 MG PO ×2 (06:03→19:55)
--- NOTE | 2017-03-25 07:30 | UL_PTH ---
PATIENT: BASIL MARRERO LOC: MS2 U#:[id number] AGE/SX: 61/M ROOM: [facility] [place] RE03/24/[address]: Dr. Flor Monreal MD : [id number] BED: 1 DIS: 03/28/2017 SPEC #: [id number] RECD: 03/26/17 11:04 STATUS: DENA MALLY #: [id number] MICAELA: 03/25/17 07:[address]: Lucho Rodriguez DEPT: SURGICAL PATHOLOGY RECD BY: Mavis Hidalgo ENTERED: 03/26/17 12:27 SP TYPE: ULCER OTHR DR: MD Dr. Ryne Doss DO Dr. Sam Ghourbrial, MD Tissues: ULCER Procedures: Special Stain Group I Surgery Specimen Level III AFB Stain (control) Comments: @ Ordering doctor for SUIII edited from to @ by HYUNOD at 03/26/17 1511 @ Submitting doctor edited from to @ by RGOOD at 03/26/17 1511 HEADER OPERATION: Incision and drainage abscess left foot PRE-OP DIAGNOSIS: Nonhealing of diabetic ulcer, left foot TISSUE SUBMITTED: Diabetic ulcer left foot MICROSCOPIC DIAGNOSIS Diabetic ulcer left foot: Skin and underlying tissue with focal ulceration, associated acute and chronic inflammation and granulation tissue reaction. Special stains for acid fast bacilli and fungi are negative for organisms; matched controls are appropriate. INDIRA:negra 03/27/17 MICROSCOPIC DESCRIPTION Slides are reviewed. GROSS DESCRIPTION Received in fixative is one container labeled with the patient's name and designated diabetic ulcer right foot. The specimen consists of two pieces of harris-white skin with underlying tissue measuring 6 x 5 x 1.5 cm and 8 x 2 x 2 cm. The central area shows focal ulceration. Sunglass Clip Attacher sections are submitted in three cassettes. / INDIRA:negra 03/26/17 TC:2 CPT: 33597, 76691
--- NOTE | 2017-03-25 07:33 | PCM.RX.CS ---
Subjective/Objective Date: 03/25/17 Time: 07:33 Antibiotic: Vancomycin Type of Consult: New start Indications for Therapy: Hx MRSA Labs: Sodium 138 mmol/L (136-145) 03/25/17 05:15 Potassium 4.2 mmol/L (3.5-5.1) 03/25/17 05:15 Chloride 100 mmol/L (98-107) 03/25/17 05:15 Carbon Dioxide 31.0 mmol/L (21.0-32.0) 03/25/17 05:15 Anion Gap 7 (5-15) 03/25/17 05:15 BUN 17 mg/dL (7-18) 03/25/17 05:15 Creatinine 0.86 mg/dL (0.70-1.30) 03/25/17 05:15 Est GFR (MDRD) Af Amer 116 mL/min (>60) 03/25/17 05:15 Est GFR (MDRD) Non-Af 96 mL/min (>60) 03/25/17 05:15 BUN/Creatinine Ratio 19.7 RATIO (10-20) 03/25/17 05:15 Glucose 151 mg/dL (74-106) H 03/25/17 05:15 Pharmacy Plan for Drug Dosing: Goal vancomycin trough 10-15 mcg/mL. Patient previously maintained on vancomycin 1750mg IV q12h for same goal. Recommend same regimen, check trough after 72 hours. Pharmacy Service will continue to monitor and adjust dosing as required. Pharmacy to order these labs: Trough - Vancomycin Labs to be done on (date): 03/28/17 Labs to be done (time): 06:00
[2017-03-25] MEDS: Losartan Potassium 100 MG Tablet PO (09:31)
[2017-03-25] MEDS: Citalopram 40 MG TABLET PO ×2 (09:32→22:13)
[2017-03-25] MEDS: Triamterene 37.5MG/Hctz 25MG Capsule 1 CAP PO (09:32)
[2017-03-25] MEDS: Gabapentin 800 MG Tablet PO (09:32)
[2017-03-25] MEDS: Atorvastatin Calcium 20 MG Tablet PO (09:32)
--- NOTE | 2017-03-25 09:34 | NURSING ---
wound photo: left plantar foot
[2017-03-25 09:36] LABS: Bedside Glucose 176 mg/dL (70-110)
--- NOTE | 2017-03-25 09:37 | NURSING ---
wound photo: healing incision left medial foot
--- NOTE | 2017-03-25 09:44 | PCM.PROGNOTE ---
<Abimbola Dhillon - Last Filed: 03/25/17 10:27> Subjective: Patient seen and examined. States he had mild nausea overnight but overall rested well. Pain well controlled on current regimen. Patient is to undergo surgery this afternoon with Dr. Rodriguez for left foot ulcer. He denies fever, chills. Denies other complaints. - Physical Exam General: Alert, Oriented x3, Cooperative, No apparent distress HEENT: Atraumatic, PERRLA, EOMI, Normocephalic Neck: Supple, No JVD, Negative Carotid Bruits Lungs: Clear to auscultation, Diminished Cardiovascular: Regular rate, Regular Rhythm, Normal S1, Normal S2, No murmurs Abdomen: Bowel Sounds Present, Soft, Non Tender, Non-Distended, Obese Extremities: No clubbing, No cyanosis, No edema, Capillary Refill Less than 3 Seconds Skin: No rashes, No breakdown, - - Left foot nonhealing plantar wound, dressing clean dry and intact. Musculoskeletal: No Tenderness to Palpation of Joints or Extremities Neurological: Cranial nerves II-XII grossly intact Psych/Mental Status: Normal Affect, Appropriate Vital Signs Temp Pulse Resp BP Pulse Ox 97.5 F L 72 18 148/71 H 93 03/25/17 08:15 03/25/17 08:15 03/25/17 08:15 03/25/17 08:15 03/25/17 08:15 Oxygen Delivery Method Room Air Weight: 145.773 kg Body Mass Index (BMI) 40.1 Finger Stick Blood Glucose 185 Intake and Output for Last 24 Hours 03/23/17 03/24/17 03/25/17 23:59 23:59 23:59 Intake Total 2734 / 2734 442 / 442 Output Total 1450 / 1450 1000 / 1000 Balance 1284 / 1284 -558 / -558 Laboratory Tests Past 24 Hrs 03/24/17 03/24/17 03/24/17 16:50 16:50 16:50 WBC 6.3 RBC 3.83 L Hgb 10.1 L Hct 32.8 L MCV 85.6 MCH 26.4 L MCHC 30.8 L RDW 15.0 H RDW Differential 46.6 H Plt Count 295 MPV 8.6 Immature Gran % (Auto) Neut % (Auto) Lymph % (Auto) [place] % (Auto) Eos % (Auto) Baso % (Auto) Absolute Neuts (auto) Absolute Lymphs (auto) Total Counted ESR 31 H Sodium 138 Potassium 3.9 Chloride 100 Carbon Dioxide 30.0 Anion Gap 8 BUN 18 Creatinine 0.86 Estim Creat Clear Calc 109.17 Est GFR (MDRD) Af Amer 116 Est GFR (MDRD) Non-Af 96 BUN/Creatinine Ratio 20.9 H Glucose 108 H Hemoglobin A1c 8.6 H Calcium 8.7 Total Bilirubin 0.60 AST 21 ALT 30 Alkaline Phosphatase 97 C-React Prot Ext Range 7.57 H Total Protein 6.9 Albumin 3.4 Globulin 3.5 Albumin/Globulin Ratio 1.0 Prealbumin 32.7 03/25/17 03/25/17 05:15 05:15 WBC 5.1 RBC 3.91 L Hgb 10.3 L Hct 33.6 L MCV 85.9 MCH 26.3 L MCHC 30.7 L RDW 15.1 H RDW Differential 46.9 H Plt Count 267 MPV 8.6 Immature Gran % (Auto) 0.400 Neut % (Auto) 61.4 Lymph % (Auto) 26.8 [place] % (Auto) 6.7 Eos % (Auto) 4.1 Baso % (Auto) 0.6 Absolute Neuts (auto) 3.1 Absolute Lymphs (auto) 1.36 Total Counted Not Reportable ESR Sodium 138 Potassium 4.2 Chloride 100 Carbon Dioxide 31.0 Anion Gap 7 BUN 17 Creatinine 0.86 Estim Creat Clear Calc 109.17 Est GFR (MDRD) Af Amer 116 Est GFR (MDRD) Non-Af 96 BUN/Creatinine Ratio 19.7 Glucose 151 H Hemoglobin A1c Calcium 8.9 Total Bilirubin AST ALT Alkaline Phosphatase C-React Prot Ext Range Total Protein Albumin Globulin Albumin/Globulin Ratio Prealbumin POC Glucose 03/25/17 03/24/17 03/24/17 09:15 21:56 16:44 POC Glucose 176 H 160 H 106 Assessment/Plan Patient is a 61-year-old male admitted 03/24/17 due to nonhealing left foot wound. 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 Yanes, type 2 diabetes mellitus, hypertension, hyperlipidemia, obstructive sleep apnea, PAD, depression, anemia of chronic disease, obesity, hypoalbuminemia. 1. Nonhealing left diabetic plantar foot ulcer with Charcot neuropathic osteoarthropathy and nonhealing diabetic ulcer left medial foot-patient underwent debridement with Dr. Yanes on 01/24/2017 which included necrotic muscle and widespread debridement of plantar foot. Patient wound culture positive for MRSA at that time and patient received IV vancomycin for over 30 days. Patient has had a wound VAC and followed up with wound clinic. Wound healing is not progressing. Dr. Rodriguez planning on further surgical intervention this afternoon. MRI completed 01/01/2017 showed neuropathic osteoarthropathy with no evidence of osteomyelitis. Repeat MRI shows charcot foot with rocker-bottom deformity and plantar ulceration as well as induration, no evidence of abscess. Patient was started on clindamycin IV, IV Levaquin and IV vancomycin. Consult wound RN. Morphine as needed for pain. Zofran for nausea. 2. Type 2 diabetes mellitus with associated peripheral neuropathy-hold oral regimen, ADA diet. Accu-Cheks before meals at bedtime with sliding scale insulin. Continue home insulin regimen of scheduled NovoLog and Levemir. Most recent hemoglobin A1c 8.5%. Repeat A1c 8.6%. 3. Hypertension-stable, continue home regimen. 4. Hyperlipidemia-continue statin. 5. Obstructive sleep apnea-CPAP nightly. Patient follows with Dr. Kent. 6. PAD-status post amputation of the right transmetatarsal amputation. Continue aspirin, statin. 7. Depression-continue home medication regimen. 8. Anemia of chronic disease-stable, monitor CBC. 9. Obesity-encouraged lifestyle dietary modifications. 10. Hypoalbuminemia-continue Greg supplementation. Consult nutrition/dietitian. DVT prophylaxis-Lovenox subcu. This patient was seen by DAMIAN Humphreys under the supervision of Dr. Monreal. <Flor Monreal - Last Filed: 03/25/17 14:46> - Physical Exam Vital Signs Temp Pulse Resp BP Pulse Ox 97.5 F L 72 18 148/71 H 93 03/25/17 08:15 03/25/17 08:15 03/25/17 08:15 03/25/17 08:15 03/25/17 08:15 Oxygen Delivery Method Room Air Weight: 145.773 kg Body Mass Index (BMI) 40.1 Finger Stick Blood Glucose 185 Intake and Output for Last 24 Hours 03/23/17 03/24/17 03/25/17 23:59 23:59 23:59 Intake Total 2734 / 2734 442 / 442 Output Total 1450 / 1450 1000 / 1000 Balance 1284 / 1284 -558 / -558 Laboratory Tests Past 24 Hrs 03/24/17 03/24/17 03/24/17 16:50 16:50 16:50 WBC 6.3 RBC 3.83 L Hgb 10.1 L Hct 32.8 L MCV 85.6 MCH 26.4 L MCHC 30.8 L RDW 15.0 H RDW Differential 46.6 H Plt Count 295 MPV 8.6 Immature Gran % (Auto) Neut % (Auto) Lymph % (Auto) [place] % (Auto) Eos % (Auto) Baso % (Auto) Absolute Neuts (auto) Absolute Lymphs (auto) Total Counted ESR 31 H Sodium 138 Potassium 3.9 Chloride 100 Carbon Dioxide 30.0 Anion Gap 8 BUN 18 Creatinine 0.86 Estim Creat Clear Calc 109.17 Est GFR (MDRD) Af Amer 116 Est GFR (MDRD) Non-Af 96 BUN/Creatinine Ratio 20.9 H Glucose 108 H Hemoglobin A1c 8.6 H Calcium 8.7 Total Bilirubin 0.60 AST 21 ALT 30 Alkaline Phosphatase 97 C-React Prot Ext Range 7.57 H Total Protein 6.9 Albumin 3.4 Globulin 3.5 Albumin/Globulin Ratio 1.0 Prealbumin 32.7 03/25/17 03/25/17 05:15 05:15 WBC 5.1 RBC 3.91 L Hgb 10.3 L Hct 33.6 L MCV 85.9 MCH 26.3 L MCHC 30.7 L RDW 15.1 H RDW Differential 46.9 H Plt Count 267 MPV 8.6 Immature Gran % (Auto) 0.400 Neut % (Auto) 61.4 Lymph % (Auto) 26.8 [place] % (Auto) 6.7 Eos % (Auto) 4.1 Baso % (Auto) 0.6 Absolute Neuts (auto) 3.1 Absolute Lymphs (auto) 1.36 Total Counted Not Reportable ESR Sodium 138 Potassium 4.2 Chloride 100 Carbon Dioxide 31.0 Anion Gap 7 BUN 17 Creatinine 0.86 Estim Creat Clear Calc 109.17 Est GFR (MDRD) Af Amer 116 Est GFR (MDRD) Non-Af 96 BUN/Creatinine Ratio 19.7 Glucose 151 H Hemoglobin A1c Calcium 8.9 Total Bilirubin AST ALT Alkaline Phosphatase C-React Prot Ext Range Total Protein Albumin Globulin Albumin/Globulin Ratio Prealbumin POC Glucose 03/25/17 03/25/17 03/24/17 11:08 09:15 21:56 POC Glucose 187 H 176 H 160 H 03/24/17 16:44 POC Glucose 106 Assessment/Plan Patient was seen and examined. Seen patient's wound with wound nurse. Vitals reviewed, stable, however patient is going for surgery. Interval history and physical exam as above, laboratory investigations reviewed as well as imaging. Medications also reviewed. Continue on the same medications as above. Monitor Blood glucose closely when patient is kept n.p.o. Code Visit Inpatient E&M: 85304 Subs Hosp L2
[2017-03-25 11:36] LABS: Bedside Glucose 187 mg/dL (70-110)
--- NOTE | 2017-03-25 11:41 | NURSING ---
PT TO OR VIA BED
--- NOTE | 2017-03-25 13:00 | PCA ---
pt off floor
--- NOTE | 2017-03-25 13:47 | CASEMGMT ---
MARY CLEMENTE Chart Review: Patient direct admission for infected diabetic foot ulcer. Patient currently undergoing long-term IV abx, Vanco, followed by Dr. Schwartz from [facility] and following [facility]. Patient with strict off-loading precautions. Patient has been using a wheel chair per physician documentation. Per notes, patient's diabetes not controlled, A1C 8.6. Patient will need case management follow-up. MARY CLEMENTE attempted to meet with patient, but he is off unit at this time for surgery.
[2017-03-25] MEDS: Clindamycin 600 MG/50 ML BAG 100 MG IV ×2 (14:10→22:08)
--- NOTE | 2017-03-25 16:29 | OP.PN_ITS ---
Immediate Post-Op Note Date of Procedure: 03/25/17 Primary Surgeon/Physician: Lucho Rodriguez certifed refrigeration operator: None Pre-Operative Diagnosis: 1. Nonhealing infected diabetic ulcer left plantar foot. 2. Nonhealing infected diabetic ulcer left medial foot. 3. Diabetes mellitus. 4. History of MRSA. 5. Charcot foot neuropathic osteoarthropathy. 6. Former smoker. Post-Operative Diagnosis: 1. Nonhealing infected diabetic ulcer with fasciitis left plantar foot. 2. Nonhealing infected diabetic ulcer with fasciitis left medial foot. 3. Diabetes mellitus. 4. History of MRSA. 5. Charcot foot neuropathic osteoarthropathy. 6. Former smoker. Surgery/Procedure Performed:: 1. Surgical preparation left plantar foot with incision and drainage and excisional debridement nonhealing infected diabetic ulcer with fasciitis (30 cm2). 2. Surgical preparation left medial foot with incision and drainage and excisional debridement nonhealing infected diabetic ulcer with fasciitis (24 cm2). Description of Surgical Findings:: This is a 61 year old man with type 2 diabetes mellitus with neuropathy and Charcot neuroarthropathy presents with non-healing ulcer left plantar foot in the midfoot area. He previously underwent a widespread debridement of his plantar foot located at his rocker-bottom Charcot deformity site with additional drainage of purulent abscess on 01/24/17. He recently completed a course of IV antibiotics, vancomycin. He denies pain. He denies fever. He continues to remain nonweightbearing with wheelchair use at home. He resides at home at this time. He states the redness and swelling between the ulcers on the left medial foot and left plantar foot have increased. He had an MRI done on 01/01/17 which showed neuropathic osteoarthropathy and no evidence of osteomyelitis. He had a Venous Doppler Study on 01/23/17 which was negative for DVT. 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 Further wound care with amniofix (amniotic cord and placental tissue cell derived) was contemplated. However once the IV antibiotics were stopped, he started developing increasing pain and redness and swelling in the area of his ulcers. Further operative debridement was recommended prior to any placement of amniofix. His Prealbumin was 32.7. Encourage nutritional supplementation with protein to help the healing process. His Hgb A1c on admission was 8.6. The ESR on admission was 31. The CRP on admission was much decreased to 7.57. Today the patient underwent surgical preparation left plantar foot with incision and drainage and excisional debridement nonhealing infected diabetic ulcer with fasciitis (30 cm2) and surgical preparation left medial foot with incision and drainage and excisional debridement nonhealing infected diabetic ulcer with fasciitis (24 cm2). Size of defect left plantar foot - 6 x 5 x 2.5 cm. Size of defect left medial foot - 8 x 3 x 2 cm. Estimated Blood Loss: 100 ml. Specimen's removed: 1. Nonhealing infected diabetic ulcers left foot to Pathology. 2. Nonhealing infected diabetic ulcer left plantar foot to Microbiology. 3. Nonhealing infected diabetic ulcer left medial foot to Microbiology. Drains: None. Type of Anesthesia:: General - Admit VTE Documentation VTE Present on Admission: No VTE Mechan Device Prophylaxis: None - The surgery was on the lower extremity. So will use chemoprophylaxis. VTE Pharm Prophylaxis ordered?: Yes
[2017-03-25 16:46] LABS: Bedside Glucose 129 mg/dL (70-110)
[2017-03-25] MEDS: Lactated Ringers 1,000 ML 60 ML IV (17:31)
[2017-03-25] MEDS: Glucerna Shake 120 ML LIQUID PO ×2 (17:35→22:12)
[2017-03-25 22:25] LABS: Bedside Glucose 183 mg/dL (70-110)
[2017-03-26 03:59] VITALS: BP 138/78; PULSE 74; RESP 16; TEMP 36; O2SAT 97
[2017-03-26] MEDS: Clindamycin 600 MG/50 ML BAG 100 MG IV ×3 (06:04→21:17)
[2017-03-26] MEDS: Enoxaparin 40 MG/0.4 ML Syringe SC (06:04)
[2017-03-26] MEDS: Famotidine 20 MG Tablet PO ×2 (06:06→21:17)
[2017-03-26 06:16] LABS: Hematocrit 32.2 % (40-54); Hemoglobin 9.8 g/dl (13.0-16.5); Mean Corp Hgb Conc 30.4 g/gl (32-36); Mean Corpuscular Hgb 26.6 pg (27.0-32.0); Mean Corpuscular Volume 87.3 fL (80-94); Mean Platelet Vol. 8.6 fl (6.2-12.0); Platelet Count 275 K/mm3 (150-450); RBC Distribution Width CV 15.3 % (11.6-14.6); RBC Distribution Width SD 48.7 fl (35.1-43.9); Red Blood Count 3.69 M/mm3 (4.6-6.2); White Blood Count 6.3 K/mm3 (4.4-11.0)
[2017-03-26 06:18] LABS: Scan Indicated on CBC? Y/N NO
[2017-03-26 06:38] LABS: Anion Gap 8 (5-15); BUN 19 mg/dL (7-18); BUN/Creat Ratio 20.9 RATIO (10-20); Calcium,Total 8.7 mg/dL (8.5-10.1); Chloride 100 mmol/L (98-107); Creatinine, Serum 0.91 mg/dL (0.70-1.30); EST Glomerular Filtration Rate 90 mL/min (>60); Est Glom Filt Rate - Afr Amer 109 mL/min (>60); Estimated Creatinine Clearance 103.17 ml/min; Glucose 210 mg/dL (74-106); Potassium 4.4 mmol/L (3.5-5.1); Sodium Level 137 mmol/L (136-145)
[2017-03-26 07:06] LABS: Bedside Glucose 234 mg/dL (70-110)
[2017-03-26] MEDS: oxyCODONE 5 MG Tablet 10 MG PO ×3 (08:35→22:56)
[2017-03-26 10:16] VITALS: BP 152/77; PULSE 79; RESP 16; TEMP 36.6; O2SAT 99
[2017-03-26] MEDS: Glucerna Shake 120 ML LIQUID PO ×4 (10:20→22:23)
[2017-03-26] MEDS: Triamterene 37.5MG/Hctz 25MG Capsule 1 CAP PO (10:24)
[2017-03-26] MEDS: Gabapentin 800 MG Tablet PO (10:24)
[2017-03-26] MEDS: Losartan Potassium 100 MG Tablet PO (10:25)
[2017-03-26] MEDS: Atorvastatin Calcium 20 MG Tablet PO (10:25)
[2017-03-26] MEDS: Citalopram 40 MG TABLET PO ×2 (10:25→21:17)
[2017-03-26] MEDS: Lactated Ringers 1,000 ML 60 ML IV (11:32)
--- NOTE | 2017-03-26 12:01 | PN_ITS ---
<Abimbola Dhillon - Last Filed: 03/26/17 12:01> Subjective: Patient seen and examined. Sitting on edge of bed eating breakfast. States his pain is been well controlled overnight. Denies nausea, vomiting. Denies fever, chills. Patient underwent left foot wounds debridement yesterday with Dr. Rodriguez. He denies current complaints. - Physical Exam General: Alert, Oriented x3, Cooperative, No apparent distress HEENT: Atraumatic, PERRLA, EOMI, Normocephalic Neck: Supple, No JVD, Negative Carotid Bruits Lungs: Clear to auscultation, Diminished Cardiovascular: Regular rate, Regular Rhythm, Normal S1, Normal S2, No murmurs Abdomen: Bowel Sounds Present, Soft, Non Tender, Non-Distended, Obese Extremities: No clubbing, No cyanosis, No edema, Capillary Refill Less than 3 Seconds Skin: No rashes, No breakdown, - - Left foot nonhealing plantar wound, dressing clean dry and intact. Musculoskeletal: No Tenderness to Palpation of Joints or Extremities, - - Status post transmetatarsal amputation of the right foot Neurological: Cranial nerves II-XII grossly intact, Neuro grossly intact Psych/Mental Status: Normal Affect, Appropriate Vital Signs Temp Pulse Resp BP Pulse Ox 97.8 F 79 16 152/77 H 99 03/26/17 10:16 03/26/17 10:16 03/26/17 10:16 03/26/17 10:16 03/26/17 10:16 Oxygen Flow Rate 2 Oxygen Delivery Method Nasal Cannula Weight: 145.773 kg Body Mass Index (BMI) 40.1 Finger Stick Blood Glucose 129 Intake and Output for Last 24 Hours 03/24/17 03/25/17 03/26/17 23:59 23:59 23:59 Intake Total 2734 / 2734 2482 / 2482 1784 / 1784 Output Total 1450 / 1450 1974 / 1974 1825 / 1825 Balance 1284 / 1284 507 / 507 -41 / -41 Microbiology Past 72 Hours 03/25/17 16:00 Gram Stain - Final Tissue - Left Foot Wound Culture - Preliminary Beta hemolytic organism 03/25/17 16:00 Gram Stain - Final Tissue - Left Foot Wound Culture - Preliminary No growth-Final to follow Laboratory Tests Past 24 Hrs 02/07/18 02/07/18 05:50 05:50 WBC 6.3 RBC 3.69 L Hgb 9.8 L Hct 32.2 L MCV 87.3 MCH 26.6 L MCHC 30.4 L RDW 15.3 H RDW Differential 48.7 H Plt Count 275 MPV 8.6 Sodium 137 Potassium 4.4 Chloride 100 Carbon Dioxide 29.0 Anion Gap 8 BUN 19 H Creatinine 0.91 Estim Creat Clear Calc 103.17 Est GFR (MDRD) Af Amer 109 Est GFR (MDRD) Non-Af 90 BUN/Creatinine Ratio 20.9 H Glucose 210 H Calcium 8.7 POC Glucose 03/26/17 03/25/17 03/25/17 06:57 22:12 16:41 POC Glucose 234 H 183 H 129 H Assessment/Plan Patient is a 61-year-old male admitted 03/24/17 due to nonhealing left foot wound. 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 Yanes, type 2 diabetes mellitus, hypertension , hyperlipidemia, obstructive sleep apnea, PAD, depression, anemia of chronic disease, obesity, hypoalbuminemia. 1. Nonhealing left diabetic plantar foot ulcer with Charcot neuropathic osteoarthropathy and nonhealing diabetic ulcer left medial foot-patient underwent debridement with Dr. Yanes on 01/24/2017 which included necrotic muscle and widespread debridement of plantar foot. Patient wound culture positive for MRSA at that time and patient received IV vancomycin for over 30 days. Patient has had a wound VAC and followed up with wound clinic. Wound healing is not progressing. MRI completed 01/01/2017 showed neuropathic osteoarthropathy with no evidence of osteomyelitis. Repeat MRI shows charcot foot with rocker-bottom deformity and plantar ulceration as well as induration, no evidence of abscess. Patient underwent incision and drainage and excisional debridement of nonhealing infected diabetic ulcer with fasciitis of the left foot 03/25/[address] Rodriguez. Patient's pain is well controlled on morphine and OxyIR as needed. Continue IV clindamycin, IV Levaquin, and IV vancomycin. Wound cultures showing preliminary beta-hemolytic organism, final cultures pending. Wound RN consulted. Continue dressing changes. Plan is for patient to have wound VAC placed prior to discharge. His is bringing his wound VAC from home. Nonweightbearing on the left foot. Keep left foot elevated as much as possible. 2. Type 2 diabetes mellitus with associated peripheral neuropathy-hold oral regimen, ADA diet. Accu-Cheks before meals at bedtime with sliding scale insulin. Continue home insulin regimen of scheduled NovoLog and Levemir. Most recent hemoglobin A1c 8.5%. Repeat A1c 8.6%. 3. Hypertension-stable, continue home regimen. 4. Hyperlipidemia-continue statin. 5. Obstructive sleep apnea-CPAP nightly. Patient follows with Dr. Kent. 6. PAD-status post amputation of the right transmetatarsal amputation. Continue aspirin, statin. 7. Depression-continue home medication regimen. 8. Anemia of chronic disease-stable, monitor CBC. 9. Obesity-encouraged lifestyle dietary modifications. 10. Hypoalbuminemia-continue Greg supplementation. Consult nutrition/ dietitian. DVT prophylaxis-Lovenox subcu. This patient was seen by DAMIAN Humphreys under the supervision of Dr. Monreal. <Flor Monreal - Last Filed: 03/26/17 15:43> - Physical Exam Vital Signs Temp Pulse Resp BP Pulse Ox 97.8 F 79 16 152/77 H 99 03/26/17 10:16 03/26/17 10:16 03/26/17 10:16 03/26/17 10:16 03/26/17 10:16 Oxygen Flow Rate 2 Oxygen Delivery Method Nasal Cannula Weight: 145.773 kg Body Mass Index (BMI) 40.1 Finger Stick Blood Glucose 129 Intake and Output for Last 24 Hours 03/24/17 03/25/17 03/26/17 23:59 23:59 23:59 Intake Total 2734 / 2734 2482 / 2482 3330 / 3330 Output Total 1450 / 1450 1974 / 1974 2125 / 2125 Balance 1284 / 1284 507 / 507 1205 / 1205 Microbiology Past 72 Hours 03/25/17 16:00 Gram Stain - Final Tissue - Left Foot Wound Culture - Preliminary Beta hemolytic organism 03/25/17 16:00 Gram Stain - Final Tissue - Left Foot Wound Culture - Preliminary No growth-Final to follow Laboratory Tests Past 24 Hrs 03/26/17 03/26/17 05:50 05:50 WBC 6.3 RBC 3.69 L Hgb 9.8 L Hct 32.2 L MCV 87.3 MCH 26.6 L MCHC 30.4 L RDW 15.3 H RDW Differential 48.7 H Plt Count 275 MPV 8.6 Sodium 137 Potassium 4.4 Chloride 100 Carbon Dioxide 29.0 Anion Gap 8 BUN 19 H Creatinine 0.91 Estim Creat Clear Calc 103.17 Est GFR (MDRD) Af Amer 109 Est GFR (MDRD) Non-Af 90 BUN/Creatinine Ratio 20.9 H Glucose 210 H Calcium 8.7 POC Glucose 03/26/17 03/26/17 03/25/17 12:05 06:57 22:12 POC Glucose 171 H 234 H 183 H 03/25/17 16:41 POC Glucose 129 H Assessment/Plan This patient was seen in conjunction with Abimbola Dhillon, nurse practitioner, I have independently interviewed and examined the patient and reviewed pertinent historical, laboratory, and other data. Please refer to Abimbola Dhillon NP note for details of this patient's presentation, findings, and recommendations. I have reviewed Abimbola Dhillon NP note and concur with documented. Patient has bleeding from surgical site, soaking through the dressing. Denies pain in the foot, dizziness or palpitations. Aware that surgeon and wound team will be in to change dressing. Wound cultures are growing beta-hemolytic organism. Continue on Clindamycin, levofloxacin and vancomycin for now. Will check Staph aureus PCR and follow cultures to assist in scaling down antibiotics. Blood sugars are fairly controlled. Code Visit Inpatient E&M: 47922 Subs Hosp L2
[2017-03-26 12:15] LABS: Bedside Glucose 171 mg/dL (70-110)
[2017-03-26] MEDS: Ondansetron 4 MG/2 ML Vial IV (14:57)
--- NOTE | 2017-03-26 14:57 | NURSING ---
Pt. requests medication for nausea.
--- NOTE | 2017-03-26 15:39 | CASEMGMT ---
MARY CLEMENTE met with patient and friend at bedside to discuss transition planning. Patient reports he cannot get HHC due to his insurance which is [employer]. The patient reports he goes to the wound center for dressing changes and he has support at home with his friends who provide assistance with ADLs and transportation. Patient reports he has all DME and denies any further transition needs or care coordination needs. MARY CLEMENTE requested patient let staff know if any needs arise and MARY CLEMENTE will remain available to assist as needed with case management interventions.
[2017-03-26 16:56] LABS: Bedside Glucose 165 mg/dL (70-110)
[2017-03-26 17:04] VITALS: BP 165/91; PULSE 82; RESP 16; TEMP 36.8; O2SAT 99
--- NOTE | 2017-03-26 18:49 | PN.SURG_ITS ---
Subjective: Postop #1 Patient is resting comfortably. - Physical Exam General: Alert, Oriented x3 HEENT: PERRLA, EOMI Neck: Supple Lungs: Clear to auscultation Cardiovascular: Regular rate, Regular Rhythm Abdomen: Soft, Non-Distended Extremities: Edema - less swelling noted left foot. Skin: Ulcer/ Wound - wounds left foot are stable. No bleeding noted with the dressing change. The dressing change was done late so the VAC will be placed tomorrow. The wounds were dressed with a saline dressing with a compression linus wrap. Neurological: Cranial nerves II-XII grossly intact Psych/Mental Status: Normal Affect, Appropriate Vital Signs Temp Pulse Resp BP Pulse Ox 98.3 F 82 16 165/91 H 99 03/26/17 17:04 03/26/17 17:04 03/26/17 17:04 03/26/17 17:04 03/26/17 17:04 Oxygen Flow Rate 2 Oxygen Delivery Method Room Air Weight: 321 lb 5.991 oz Body Mass Index (BMI) 40.1 Finger Stick Blood Glucose 129 Intake and Output for Last 24 Hours 03/24/17 03/25/17 03/26/17 23:59 23:59 23:59 Intake Total 2734 / 2734 2482 / 2482 4041 / 4041 Output Total 1450 / 1450 1974 / 1974 3400 / 3400 Balance 1284 / 1284 507 / 507 641 / 641 Microbiology Past 72 Hours 03/25/17 16:00 Gram Stain - Final Tissue - Left Foot Wound Culture - Preliminary Beta hemolytic organism 03/25/17 16:00 Gram Stain - Final Tissue - Left Foot Wound Culture - Preliminary No growth-Final to follow Laboratory Tests Past 24 Hrs 03/26/17 03/26/17 05:50 05:50 WBC 6.3 RBC 3.69 L Hgb 9.8 L Hct 32.2 L MCV 87.3 MCH 26.6 L MCHC 30.4 L RDW 15.3 H RDW Differential 48.7 H Plt Count 275 MPV 8.6 Sodium 137 Potassium 4.4 Chloride 100 Carbon Dioxide 29.0 Anion Gap 8 BUN 19 H Creatinine 0.91 Estim Creat Clear Calc 103.17 Est GFR (MDRD) Af Amer 109 Est GFR (MDRD) Non-Af 90 BUN/Creatinine Ratio 20.9 H Glucose 210 H Calcium 8.7 POC Glucose 03/26/17 03/26/17 03/26/17 16:42 12:05 06:57 POC Glucose 165 H 171 H 234 H 03/25/17 22:12 POC Glucose 183 H Assessment/Plan :1. Nonhealing infected diabetic ulcer with fasciitis left plantar foot. 2. Nonhealing infected diabetic ulcer with fasciitis left medial foot. 3. Diabetes mellitus. 4. History of MRSA. 5. Charcot foot neuropathic osteoarthropathy. 6. Former smoker. 7. s/p surgical preparation left plantar foot with incision and drainage and excisional debridement nonhealing infected diabetic ulcer with fasciitis (30 cm2 ) and surgical preparation left medial foot with incision and drainage and excisional debridement nonhealing infected diabetic ulcer with fasciitis (24 cm2 ). Continue IV antibiotics (Vancomycin, Cleocin, Levaquin). Plan to narrow it down for discharge. Operative cultures thus far show Beta hemolytic oranism. Wounds are clean with no bleeding. Saline dressings applied with a compression linus wrap. VAC will be placed tomorrow because the dressing change was done late today. Prealbumin was 32.7. encourage nutritional supplementation with protein to help the healing process. Hgb A1c was 8.6. He states he will followup with his PCP to help to get his blood glucoses under more consistent control to get the A1c level down which minimizes the complication rate of diabetics. After discharge, followup at [facility]. Have discussed eventual amputation with the patient. He is leaning toward that eventuality. Will discuss further at the [facility]ound Center as we manage the healing of (or lack thereof) these diabetic ulcers.
--- NOTE | 2017-03-26 19:31 | OP.PCM_ITS ---
Report of Operation Date of Procedure: 03/25/17 Pre-Operative Diagnosis: 1. Nonhealing infected diabetic ulcer left plantar foot. 2. Nonhealing infected diabetic ulcer left medial foot. 3. Diabetes mellitus. 4. History of MRSA. 5. Charcot foot neuropathic osteoarthropathy. 6. Former smoker. Post-Operative Diagnosis: 1. Nonhealing infected diabetic ulcer with fasciitis left plantar foot. 2. Nonhealing infected diabetic ulcer with fasciitis left medial foot. 3. Diabetes mellitus. 4. History of MRSA. 5. Charcot foot neuropathic osteoarthropathy. 6. Former smoker. Surgery/Procedure Performed:: 1. Surgical preparation left plantar foot with incision and drainage and excisional debridement nonhealing infected diabetic ulcer with fasciitis (30 cm2). 2. Surgical preparation left medial foot with incision and drainage and excisional debridement nonhealing infected diabetic ulcer with fasciitis (24 cm2). Description of Surgical Findings:: This is a 61 year old man with type 2 diabetes mellitus with neuropathy and Charcot neuroarthropathy presents with non-healing ulcer left plantar foot in the midfoot area. He previously underwent a widespread debridement of his plantar foot located at his rocker-bottom Charcot deformity site with additional drainage of purulent abscess on 01/24/17. He recently completed a course of IV antibiotics, vancomycin. He denies pain. He denies fever. He continues to remain nonweightbearing with wheelchair use at home. He resides at home at this time. He states the redness and swelling between the ulcers on the left medial foot and left plantar foot have increased. He had an MRI done on 01/01/17 which showed neuropathic osteoarthropathy and no evidence of osteomyelitis. He had a Venous Doppler Study on 01/23/17 which was negative for DVT. 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 Further wound care with amniofix (amniotic cord and placental tissue cell derived) was contemplated. However once the IV antibiotics were stopped, he started developing increasing pain and redness and swelling in the area of his ulcers. Further operative debridement was recommended prior to any placement of amniofix. His Prealbumin on admission was 32.7. Encourage nutritional supplementation with protein to help the healing process. His Hgb A1c on admission was 8.6. The ESR on admission was 31. The CRP on admission was much decreased to 7.57. Patient was informed of the risks and complications of the procedure including alternatives to surgery. These were discussed with him personally. He voices understanding and wishes to proceed. Patient understands that eventually he may need an amputation. He is aware of that possibility and wishes to proceed. Size of defect left plantar foot - 6 x 5 x 2.5 cm. Size of defect left medial foot - 8 x 3 x 2 cm. 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 Nonhealing infected diabetic ulcers left foot to Pathology. 2. Nonhealing infected diabetic ulcer left plantar foot to Microbiology. 3. Nonhealing infected diabetic ulcer left medial foot to Microbiology. Drains: None. Estimated Blood Loss (mL): 100 ml. Description of Procedure: Patient was taken to OR in supine position and was placed under general anesthesia. His left foot and lower leg were prepped and draped in the usual fashion. No SCD's were placed as the surgery was on the lower extremity and foot. So chemoprophylaxis with Lovenox will be used for DVT prophylaxis. Perioperative antibiotics were given intravenously. A tourniquet was placed on the leg in case it is needed to be inflated for control of bleeding. Using xylocaine with epinephrine, the diabetic ulcers on his left medial foot and left plantar foot were infiltrated. After waiting 5 minutes for the anesthetic to take effect, I proceeded with incision and drainage of these diabetic ulcers with a scalpel. I incised into the subcutaneous tissue. There was a lot of fat necrosis present that was starting to liquefy. No gross pus was seen. In the left medial foot, the muscular fascia appeared very inflamed with fasciitis. I could not appreciate a necrotizing process at this time. Some of the inflamed fascia on the abductor hallucis muscle was debrided. The muscle initially looked grayish with questionable viability. After exposing it to air and after irrigation with saline it became more pink and viable. I did digital palpation to see if there were any areas of tunnelling either laterally or deeper into the foot. No tunnelling was palpable especially in the area of the skin bridge between both ulcers. In the left plantar foot, there was involvement of some of the flexor digitorum brevis. The muscle and fascia were very inflamed and thickened. The muscle appeared viable after irrigation and after exposing it to air. Some of the inflamed fascia was debrided with the muscle. I could not appreciate a necrotizing process at this time. The underlying quadratus muscle did not appear involved. The edges of the muscle that were bleeding from muscular branches from the lateral plantar artery were cauterized for hemostasis. Once again the wounds were irrigated with saline. Once again, with digital palpation, I could not palpate any tunnelling either laterally in the area of the intervening skin bridge between both ulcers or deeper into the foot. The underlying bone was palpable but was not exposed. Tissue from both ulcers was sent to Pathology for analysis to rule out carcinoma. Tissue was also sent individually from each ulcer to Microbiology for culture. A positive culture may necessitate antibiotic modification. He had MRSA before and is currently on Vancomycin, Levaquin, and Cleocin. The intervening skin bridge that was inflamed and firm and red and painful preoperatively was soft and the erythema had resolved. Any remaining of areas of bleeding were electrocauterized. I did not have to inflate the tourniquet. The size of the wounds after incision and drainage and excisional debridement was 6 x 5 x 2.5 cm for the left plantar foot and 8 x 3 x 2 cm for the left medial foot. The wounds were packed with Mepitel nonadherent dressing followed by Kerlix gauze and Betadine followed by dry Kerlix gauze and ABD pads and a compression CONCHIS wrap. He tolerated the procedure well and was sent to PACU in satisfactory condition. He will be sent back upstairs for continued postop care. The VAC will be placed tomorrow. Will continue IV antibiotics. Grafts/Implants Used: None. - Complications None. - Admit VTE Documentation VTE Present on Admission: No VTE Mechan Device Prophylaxis: None - The surgery was on the lower extremity. So will use chemoprophylaxis. VTE Pharm Prophylaxis ordered?: Yes Code Visit Surgery Charges CPT - 49510 ICD-10 - L97.425, E11.621, L02.612, M72.9, A49.02, E11.610, Z87.891 27567 M72.9, L97.425, E11.621, L02.612, A49.02, E11.610, Z87.891
[2017-03-26 22:22] VITALS: BP 140/69; PULSE 79; RESP 18; TEMP 36.1; O2SAT 96
[2017-03-26 22:41] LABS: Bedside Glucose 135 mg/dL (70-110)
[2017-03-27] MEDS: Ondansetron 4 MG/2 ML Vial IV ×3 (01:11→18:39)
[2017-03-27 04:20] VITALS: BP 149/68; PULSE 71; RESP 18; TEMP 36.6; O2SAT 96
[2017-03-27] MEDS: oxyCODONE 5 MG Tablet 10 MG PO ×4 (04:32→23:10)
[2017-03-27] MEDS: 0.9% NaCl PICC Flush 10 ML IV ×2 (04:33→04:34)
[2017-03-27] MEDS: Lactated Ringers 1,000 ML 60 ML IV ×2 (04:34→22:11)
[2017-03-27 04:48] LABS: Hematocrit 27.7 % (40-54); Hemoglobin 8.6 g/dl (13.0-16.5); Mean Corpuscular Hgb 26.6 pg (27.0-32.0); Mean Corpuscular Volume 85.8 fL (80-94); Mean Platelet Vol. 8.2 fl (6.2-12.0); Platelet Count 229 K/mm3 (150-450); RBC Distribution Width SD 47.4 fl (35.1-43.9); Red Blood Count 3.23 M/mm3 (4.6-6.2); White Blood Count 4.7 K/mm3 (4.4-11.0)
[2017-03-27 04:56] LABS: Scan Indicated on CBC? Y/N NO
[2017-03-27 05:53] LABS: Anion Gap 8 (5-15); BUN 15 mg/dL (7-18); BUN/Creat Ratio 27.3 RATIO (10-20); Calcium,Total 6.6 mg/dL (8.5-10.1); Chloride 112 mmol/L (98-107); Creatinine, Serum 0.55 mg/dL (0.70-1.30); EST Glomerular Filtration Rate 161 mL/min (>60); Est Glom Filt Rate - Afr Amer 195 mL/min (>60); Estimated Creatinine Clearance 170.71 ml/min; Glucose 97 mg/dL (74-106); Potassium 3.2 mmol/L (3.5-5.1); Sodium Level 144 mmol/L (136-145)
[2017-03-27] MEDS: Enoxaparin 40 MG/0.4 ML Syringe SC (06:19)
[2017-03-27] MEDS: Clindamycin 600 MG/50 ML BAG 100 MG IV ×3 (06:22→22:13)
[2017-03-27 07:50] VITALS: BP 130/70; PULSE 71; RESP 18; TEMP 35.9; O2SAT 97
[2017-03-27] MEDS: Glucerna Shake 120 ML LIQUID PO ×4 (07:58→20:09)
[2017-03-27] MEDS: Gabapentin 800 MG Tablet PO (08:00)
[2017-03-27] MEDS: Citalopram 40 MG TABLET PO ×2 (08:00→20:09)
[2017-03-27] MEDS: Famotidine 20 MG Tablet PO ×2 (08:00→20:09)
[2017-03-27] MEDS: Docusate Sodium 100 MG Capsule PO (08:00)
[2017-03-27] MEDS: Atorvastatin Calcium 20 MG Tablet PO (08:00)
[2017-03-27] MEDS: Triamterene 37.5MG/Hctz 25MG Capsule 1 CAP PO (08:00)
[2017-03-27] MEDS: Losartan Potassium 100 MG Tablet PO (08:00)
[2017-03-27 08:11] LABS: Bedside Glucose 140 mg/dL (70-110)
--- NOTE | 2017-03-27 09:43 | PCM.PN.HOSP ---
Subjective: Patient was seen and examined. No more bleeding from his leg. Denies fever, chills, SOB, dizziness, palpitations. Objective: Physical Exam General: Alert, Oriented x3, Cooperative, No apparent distress HEENT: Atraumatic, PERRLA, EOMI, Normocephalic Neck: Supple, No JVD, Negative Carotid Bruits Lungs: Clear to auscultation, Diminished Cardiovascular: Regular rate, Regular Rhythm, Normal S1, Normal S2, No murmurs Abdomen: Bowel Sounds Present, Soft, Non Tender, Non-Distended, Obese Extremities: No clubbing, bilateral leg edema, worse on the left with erythema to the lower leg, right transmetatarsal amputation. CONCHIS wrap to right lower leg and foot. Skin: No rashes, - - Left foot nonhealing plantar wound, dressing clean dry and intact. Musculoskeletal: No Tenderness to Palpation of Joints or Extremities, - - Status post transmetatarsal amputation of the right foot Neurological: Cranial nerves II-XII grossly intact, Neuro grossly intact Psych/Mental Status: Normal Affect, Appropriate Vitals/I&O's: Vital Signs Temp Pulse Resp BP Pulse Ox 96.7 F L 71 18 130/70 H 97 03/27/17 07:50 03/27/17 07:50 03/27/17 07:50 03/27/17 07:50 03/27/17 07:50 Oxygen Flow Rate 2 Oxygen Delivery Method Room Air Weight: 145.773 kg Body Mass Index (BMI) 40.1 Finger Stick Blood Glucose 129 Intake and Output for Last 24 Hours 03/25/17 03/26/17 03/27/17 23:59 23:59 23:59 Intake Total 2482 / 2482 5427 / 5427 698 / 698 Output Total 1974 5275 / 5275 900 / 900 Balance 507 / 507 152 / 152 -202 / -202 Microbiology Past 72 Hours 03/25/17 16:00 Tissue - Left Foot Gram Stain - Final 03/25/17 16:00 Tissue - Left Foot Wound Culture - Preliminary Staphylococcus aureus 03/25/17 16:00 Tissue - Left Foot Anaerobic Culture - Preliminary No growth in 48 hours. 03/25/17 16:00 Tissue - Left Foot Gram Stain - Final 03/25/17 16:00 Tissue - Left Foot Wound Culture - Preliminary No growth-Final to follow 03/25/17 16:00 Tissue - Left Foot Anaerobic Culture - Preliminary No growth in 48 hours. Laboratory Results 03/26/17 12:05: POC Glucose 171 H 03/26/17 16:42: POC Glucose 165 H 03/26/17 22:18: POC Glucose 135 H 03/27/17 04:38: WBC 4.7, RBC 3.23 L, Hgb 8.6 L, Hct 27.7 L, MCV 85.8, MCH 26.6 L, MCHC 31.0 L, RDW 15.0 H, RDW Differential 47.4 H, Plt Count 229, MPV 8.2 03/27/17 04:38: Sodium 144, Potassium 3.2 L, Chloride 112 H, Carbon Dioxide 24.0, Anion Gap 8, BUN 15, Creatinine 0.55 L, Estim Creat Clear Calc 170.71, Est GFR (MDRD) Af Amer 195, Est GFR (MDRD) Non-Af 161, BUN/Creatinine Ratio 27.3 H, Glucose 97, Calcium 6.6 L 03/27/17 07:55: POC Glucose 140 H Current Medications Atorvastatin Calcium (Lipitor) 20 mg PO DAILY [facility] Last Admin: 03/27/17 08:00 Dose: 20 mg Bupropion HCl (Wellbutrin Xl) 150 mg PO DAILY [facility] Last Admin: 03/27/17 08:00 Dose: 150 mg Citalopram Hydrobromide (Celexa) 40 mg PO BID [facility] Last Admin: 03/27/17 08:00 Dose: 40 mg Diazepam (Valium) 5 mg PO 4X/DAY PRN PRN PRN Reason: SPASMS Docusate Sodium (Colace) 100 mg PO BID [facility] Last Admin: 03/27/17 08:00 Dose: 100 mg Enoxaparin Sodium (Lovenox) 40 mg SC DAILY@0600 [facility] Last Admin: 03/27/17 06:19 Dose: 40 mg Ergocalciferol (Vitamin D) 50,000 unit PO QWEEK [facility] Last Admin: 03/26/17 10:24 Dose: 50,000 unit Famotidine (Pepcid) 20 mg PO BID [facility] Last Admin: 03/27/17 08:00 Dose: 20 mg Gabapentin (Neurontin) 800 mg PO DAILY [facility] Last Admin: 03/27/17 08:00 Dose: 800 mg Clindamycin Phosphate (Cleocin) 600 mg in 50 mls @ 100 mls/hr IV Q8 [facility] Last Admin: 03/27/17 06:22 Dose: 100 mls/hr Levofloxacin (Levaquin) 500 mg in 100 mls @ 100 mls/hr IV Q24 [facility] Last Admin: 03/27/17 09:40 Dose: 100 mls/hr Lactated Ringer's () 1,000 mls @ 60 mls/hr IV .[id number] [facility] Last Admin: 03/27/17 04:34 Dose: 60 mls/hr Vancomycin HCl 1,750 mg/ (Sodium Chloride) 535 mls @ 260 mls/hr IV Q12H [facility] Last Admin: 03/27/17 06:22 Dose: 260 mls/hr Insulin Aspart (Novolog Flexpen (Bkc)) 0 units SC ACHS [facility] PRN Reason: Protocol Last Admin: 03/27/17 07:58 Dose: Not Given Insulin Aspart (Novolog Flexpen (Bkc)) 30 units SC TIDCM [facility] PRN Reason: Protocol Last Admin: 03/27/17 08:22 Dose: 30 units Insulin Detemir (Levemir (Bkc)) 100 units SC BID [facility] Last Admin: 03/27/17 09:41 Dose: 100 u Losartan Potassium (Cozaar) 100 mg PO DAILY [facility] Last Admin: 03/27/17 08:00 Dose: 100 mg Magnesium Hydroxide (Milk Of Magnesia) 30 ml PO DAILY PRN PRN PRN Reason: Constipation Morphine Sulfate (Morphine) 4 mg IV Q4H PRN PRN PRN Reason: SEVERE PAIN (6-10/10) Last Admin: 03/26/17 17:07 Dose: 4 mg Nutritional Formula (Greg - [place] Flavor) 1 packet PO BIDCM [facility] Last Admin: 03/27/17 07:59 Dose: 1 packet Nutritional Formula (Lactose Free) (Glucerna Shake) 120 ml PO 4X/DAY [facility] Last Admin: 03/27/17 07:58 Dose: 120 ml Ondansetron HCl (Zofran) 4 mg IV Q6H PRN PRN PRN Reason: NAUSEA Last Admin: 03/27/17 01:11 Dose: 4 mg Oxycodone HCl (Oxyir) 10 mg PO Q4H PRN PRN PRN Reason: SEVERE PAIN (6-10/10) Last Admin: 03/27/17 04:32 Dose: 10 mg Potassium Chloride (K-Dur) 40 meq PO X1 ONE Stop: 03/27/17 09:43 Promethazine HCl (Phenergan) 25 mg PO Q4H PRN PRN PRN Reason: NAUSEA/VOMITING Last Admin: 03/24/17 14:50 Dose: 25 mg Sodium Chloride () 10 ml IV UD PRN PRN Reason: PICC FLUSH Last Admin: 03/27/17 04:34 Dose: 10 ml Triamterene/HCTZ (Dyazide (G)) 1 cap PO DAILY [facility] Last Admin: 03/27/17 08:00 Dose: 1 cap Assessment/Plan 61-year-old male with PMHx of type 2DM, complicated by Charcot arthropathy, peripheral neuropathy, status post transmetatarsal amputation of right foot 03/04/[address] Yanes, type 2 diabetes mellitus, hypertension, hyperlipidemia admitted 03/24/17 due to nonhealing left foot wound. 1. Nonhealing left diabetic plantar foot ulcer/Charcot neuropathic osteoarthropathy, s/p wound debridement which showed fatty tissue necrosis, fasciitis Wound cultures growing staph aureus, clinically stable, no leucocytosis, was on IV clindamycin, vancomycina and levaquin. s/p wound vac, will continue Valtrex. Discussed with Dr. Rodriguez, patient will require amputation later when his insurance issues are sorted out. he is nonweightbearing on the left foot. Advised to keep left foot elevated as much as possible. 2. Type 2 diabetes mellitus with associated peripheral neuropathy, HbA1c 8.6, BS are stable, continue on scheduled NovoLog and Levemir. 3. Hypokalemia, replaced, recheck in am 4. Hypertension, stable, continue home regimen. 5. Hyperlipidemia, on statin. 6. Obstructive sleep apnea, on CPAP nightly. Patient follows with Dr. Kent. 7. PAD, status post amputation of the right transmetatarsal amputation. Continue on aspirin, statin. 8. Depression, continue home medication regimen. 9. Acute on chronic anemia of chronic disease, recent drop in Hb secondary to surgery and blood loss in wound. Will check for iron stores 10. Obesity-encouraged lifestyle dietary modifications. 11. DVT prophylaxis-Lovenox subcu. Code Visit Inpatient E&M: 17785 Subs Hosp L2
--- NOTE | 2017-03-27 10:19 | NURSING ---
Let MARY Boothe CM know that patient will be going home with a wound VAC. states that patient may need to go to the wound center for VAC dressing changes d/t insurance not covering Home Health services.
--- NOTE | 2017-03-27 10:29 | NURSING ---
wound photo: left medial foot
--- NOTE | 2017-03-27 10:30 | NURSING ---
wound photo: left plantar foot
[2017-03-27 11:15] VITALS: O2SAT 97
--- NOTE | 2017-03-27 11:19 | CON.PCM_ITS ---
Problem List (1) Infection of left foot Status: Chronic (2) Type 2 diabetes mellitus with Charcot's joint arthropathy Status: Chronic Reason for Consult: L heel infection Consulted by: Dr. Monreal History of Present Illness: The patient is a 61 year old M with DM charcot foot and recurrent osteo. S/p R foot TMA. Had admission 01/2017 for MRSA L foot osteo, s/p debridement, discharged on iv vanc, completed 02/28/17. After stopping abx, picc was removed , and foot developed progressive pain, swelling, and redness. Drainage never stopped even while on abx, was purulent/bloody prior to admit. No fever or chills, no po abx prior to admission. Taken to OR 03/[address] Rodriguez and necrotic fasciitis was seen. Pain now resolved. On vanc/clinda/levaquin. Full ROS performed and neg except as noted above. - Medical History Past Medical History (Chronic Problems): Chronic Problems (Last Reviewed 03/06/17 @ 09:46 by Renuka Key) Infection of left foot (Chronic) Hypersomnia (Chronic) Ulcer of midfoot with necrosis of muscle (Chronic) Nocturnal hypoxemia (Chronic) Abscess of left foot (Chronic) Diabetic ulcer of left foot with fat layer exposed (Chronic) Non-pressure chronic ulcer of left heel and midfoot with fat layer exposed ( Chronic) 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 Venous insufficiency of both lower extremities (Chronic) S/P transmetatarsal amputation of foot (Chronic) 03/04/[address] 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) Hypertension (Chronic) Amputation of right foot with complication (Chronic) Type 2 diabetes mellitus with diabetic polyneuropathy (Chronic) Stasis dermatitis of both legs (Chronic) Sleep apnea (Chronic) CPAP 15 cm H20, 100% compliant Neuropathy (Chronic) secondary to diabetes Morbid obesity (Chronic) Anemia (Chronic) Dyslipidemia (Chronic) Left ventricular hypertrophy (Chronic) Chronic pain syndrome (Chronic) Depression (Chronic) Allergies/Adverse Reactions: Allergies cefepime Allergy (Verified 03/06/17 09:46) Hives lisinopril Allergy (Verified 03/06/17 09:46) cough sulfamethoxazole [From Octra] Allergy (Verified 03/06/17 09:46) turned red trimethoprim [From Octra] Allergy (Verified 03/06/17 09:46) turned red Penicillins Adverse Reaction (Intermediate, Verified 03/06/17 09:46) unknown Home Medications: Ambulatory Orders Medication Instructions Recorded Insulin Detemir [Levemir FlexPen] 100 units SC BID 10/12/14 Citalopram [Celexa] 40 mg PO BID 11/15/14 Gabapentin [Neurontin] 800 mg PO DAILY 11/15/14 Metformin HCl [Glucophage] 1,000 mg PO BIDCM 11/15/14 Losartan Potassium [Cozaar] 100 mg PO DAILY 06/05/16 MorphINE [Ms Contin] 15 mg PO TID 10/16/16 Clopidogrel Bisulfate [Plavix] 75 mg PO DAILY 01/01/17 BuPROPion (XL) [Wellbutrin Xl] 150 mg PO DAILY 01/21/17 Magnesium Hydroxide [Milk Of 30 ml PO DAILY PRN PRN udc 01/27/17 Magnesia] glimepiride 4 mg tablet 4 mg PO BID tab 01/31/17 Insulin Aspart [Novolog Flexpen] 30 units SC TIDCM 03/24/17 Naproxen 500 mg PO BID 03/24/17 Simvastatin 40 mg PO DAILY 03/24/17 Triamterene/Hydrochlorothiazid 1 each PO DAILY 03/24/17 [Triamterene-Hctz 37.5-25 mg Cp] Vitamin D3 50,000 units PO QWEEK 03/24/17 Vancomycin 1,750 mg IV Q12H 54 Days #108 vial 03/27/17 - Social History SMOKING STATUS:: Former smoker Vital Signs Temp Pulse Resp BP Pulse Ox 96.7 F L 71 18 130/70 H 97 03/27/17 07:50 03/27/17 07:50 03/27/17 07:50 03/27/17 07:50 03/27/17 07:50 Oxygen Flow Rate 2 Oxygen Delivery Method Room Air Weight: 145.773 kg Body Mass Index (BMI) 40.1 Finger Stick Blood Glucose 129 Microbiology Past 72 Hours 03/25/17 16:00 Gram Stain - Final Tissue - Left Foot Wound Culture - Preliminary Staphylococcus aureus Anaerobic Culture - Preliminary No growth in 48 hours. 03/25/17 16:00 Gram Stain - Final Tissue - Left Foot Wound Culture - Preliminary No growth-Final to follow Anaerobic Culture - Preliminary No growth in 48 hours. Laboratory Tests Past 24 Hrs 03/27/17 03/27/17 04:38 04:38 WBC 4.7 RBC 3.23 L Hgb 8.6 L Hct 27.7 L MCV 85.8 MCH 26.6 L MCHC 31.0 L RDW 15.0 H RDW Differential 47.4 H Plt Count 229 MPV 8.2 Sodium 144 Potassium 3.2 L Chloride 112 H Carbon Dioxide 24.0 Anion Gap 8 BUN 15 Creatinine 0.55 L Estim Creat Clear Calc 170.71 Est GFR (MDRD) Af Amer 195 Est GFR (MDRD) Non-Af 161 BUN/Creatinine Ratio 27.3 H Glucose 97 Calcium 6.6 L - Other Studies Radiology: [] Other Studies: [] reviewed Route of nutrition/ use of supplements: [] Nutritional Intake: [] IV Site: [] Tam Catheter: [] - Physical Exam General: Alert, Oriented x3, Cooperative, No apparent distress HEENT: Atraumatic, PERRLA, EOMI, Normocephalic Neck: Supple, No Nodes Lungs: Clear to auscultation, Normal air movement Cardiovascular: Regular rate, Regular Rhythm, No murmurs Abdomen: Bowel Sounds Present, Soft, Non Tender, Non-Distended Extremities: Edema, - - R foot sp TMA Skin: Ulcer/ Wound - L foot wrapped, reviewed photos from today IV Site: PICC, without redness Musculoskeletal: No Tenderness to Palpation of Joints or Extremities Neurological: Cranial nerves II-XII grossly intact - Assessment/Plan Antibiotics: [] Assessment/Plan: [] L heel/midfoot MRSA osteo with new necrotizing fasciitis seen in OR 03/25/[address] Rodriguez. Improving on vanc/clinda/levaquin. Cx with staph aureus. ESR at 31. Wbc normal, no fever. Picc in place. Plan on 8 week course of iv vanc, stop date 05/20/17. Weekly bmp, cbc, vanc trough, and ESR. May need additional abx depending on further cx data. Wrote rx for labs and iv vanc. At risk for amputation given severe recurrent infection. Will follow, d/w Dr. Monreal and disease case manager. Thank you.
--- NOTE | 2017-03-27 11:45 | CASEMGMT ---
Rounding with Dr. Sanders. Pt will need IV antibiotic, script received. Attempted to discuss w/pt, nursing in room.
--- NOTE | 2017-03-27 12:08 | PN.SURG_ITS ---
Subjective: Postop #2 Patient is resting comfortably. VAC applied today. - Physical Exam General: Alert, Oriented x3 HEENT: PERRLA, EOMI Neck: Supple Lungs: Clear to auscultation Cardiovascular: Regular rate, Regular Rhythm Abdomen: Soft, Non-Distended Extremities: Edema - less swelling noted left foot and distal leg. Skin: Ulcer/ Wound - wounds left foot ar stable. No bleeding noted in the wound. The VAC was applied today without difficulty. This was followed by a compression CONCHIS wrap. Neurological: Cranial nerves II-XII grossly intact Psych/Mental Status: Normal Affect, Appropriate Vital Signs Temp Pulse Resp BP Pulse Ox 96.7 F L 71 18 130/70 H 97 03/27/17 07:50 03/27/17 07:50 03/27/17 07:50 03/27/17 07:50 03/27/17 11:15 Oxygen Flow Rate 2 Oxygen Delivery Method Room Air Weight: 321 lb 5.991 oz Body Mass Index (BMI) 40.1 Finger Stick Blood Glucose 129 Intake and Output for Last 24 Hours 03/25/17 03/26/17 03/27/17 23:59 23:59 23:59 Intake Total 2482 / 2482 5427 / 5427 1966 / 1966 Output Total 1974 / 1974 5275 / 5275 900 / 900 Balance 507 / 507 152 / 152 1067 / 1067 Microbiology Past 72 Hours 03/25/17 16:00 Gram Stain - Final Tissue - Left Foot Wound Culture - Preliminary Staphylococcus aureus Anaerobic Culture - Preliminary No growth in 48 hours. 03/25/17 16:00 Gram Stain - Final Tissue - Left Foot Wound Culture - Preliminary No growth-Final to follow Anaerobic Culture - Preliminary No growth in 48 hours. Laboratory Tests Past 24 Hrs 03/27/17 03/27/17 04:38 04:38 WBC 4.7 RBC 3.23 L Hgb 8.6 L Hct 27.7 L MCV 85.8 MCH 26.6 L MCHC 31.0 L RDW 15.0 H RDW Differential 47.4 H Plt Count 229 MPV 8.2 Sodium 144 Potassium 3.2 L Chloride 112 H Carbon Dioxide 24.0 Anion Gap 8 BUN 15 Creatinine 0.55 L Estim Creat Clear Calc 170.71 Est GFR (MDRD) Af Amer 195 Est GFR (MDRD) Non-Af 161 BUN/Creatinine Ratio 27.3 H Glucose 97 Calcium 6.6 L POC Glucose 03/27/17 03/26/17 03/26/17 07:55 22:18 16:42 POC Glucose 140 H 135 H 165 H 03/26/17 12:05 POC Glucose 171 H Assessment/Plan 1. Nonhealing infected diabetic ulcer with fasciitis left plantar foot. 2. Nonhealing infected diabetic ulcer with fasciitis left medial foot. 3. Diabetes mellitus. 4. History of MRSA. 5. Charcot foot neuropathic osteoarthropathy. 6. Former smoker. 7. s/p surgical preparation left plantar foot with incision and drainage and excisional debridement nonhealing infected diabetic ulcer with fasciitis (30 cm2 ) and surgical preparation left medial foot with incision and drainage and excisional debridement nonhealing infected diabetic ulcer with fasciitis (24 cm2 ). Continue IV antibiotics (Vancomycin, Cleocin, Levaquin). Plan to narrow it down for discharge. Operative cultures thus far show Staphylococcus aureus. I suspect MRSA. Wounds are clean with no bleeding. VAC was applied today without difficulty. Will be changed three times per week at 150 mmHg continuous suction. Prealbumin was 32.7. encourage nutritional supplementation with protein to help the healing process. Hgb A1c was 8.6. He states he will followup with his PCP to help to get his blood glucoses under more consistent control to get the A1c level down which minimizes the complication rate of diabetics. After discharge, followup at Wound Center. Have discussed eventual amputation with the patient. He is leaning toward that eventuality. Will discuss further at the Wound Center as we manage the healing of (or lack thereof) these diabetic ulcers.
[2017-03-27 12:26] LABS: Bedside Glucose 169 mg/dL (70-110)
--- NOTE | 2017-03-27 12:49 | CASEMGMT ---
Interview with patient re: Home dc planning. Pt is aware Home Health will be difficult to set up. PT has appt @ [facility] wound healing center Friday for wound vac changes, and he will go to Infusion center for PICC line dressing changes. Pt is alert, oriented, sitting @ side of bed. His friend Lolita is in room. She is able to assist pt with transportation and care @ home if needed. Pt has WC, Walker, walking boot. -Discussed need for IV antibiotics. Pt has had twice in past, most recent in February 2017. He is comfortable with routine of IV antibiotics @ home. -Pt brought up that he may need amputation in future. Active listening and support given. Pt was able to identify positives re: will not need continued wound care, IV antibiotics, etc. 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 He sees being more active as a positive if this wound need to be done. Support given, questions re: dc planning given. Viky ARMENTAN RN ACM
[2017-03-27 13:50] VITALS: BP 140/74; PULSE 76; RESP 18; TEMP 36.1; O2SAT 94
[2017-03-27 17:11] LABS: Bedside Glucose 189 mg/dL (70-110)
[2017-03-27 20:15] VITALS: BP 160/78; PULSE 82; RESP 18; TEMP 37; O2SAT 96
[2017-03-27 22:25] LABS: Bedside Glucose 169 mg/dL (70-110)
[2017-03-28 02:15] VITALS: BP 138/67; PULSE 72; RESP 18; TEMP 36.2; O2SAT 95
[2017-03-28] MEDS: oxyCODONE 5 MG Tablet 10 MG PO ×2 (03:19→10:31)
[2017-03-28 05:49] LABS: Absolute Lymphocyte Count 1.55 X10^3/ul (0.83-4.51); Absolute Neutrophil Count 3.1 X10^3/uL (2.0-7.7); Basophil# 0.02 X10^3/uL; Basophil% 0.4 % (0-1); Eosinophil# 0.26 X10^3/uL; Eosinophils% 4.9 % (0-5); Hemoglobin 9.9 g/dl (13.0-16.5); Lymphocyte # 1.55 X10^3/ul (4.0); Lymphocyte % 29.1 % (19-41); Mean Corp Hgb Conc 30.9 g/gl (32-36); Mean Corpuscular Hgb 26.6 pg (27.0-32.0); Mean Platelet Vol. 8.5 fl (6.2-12.0); Monocyte# 0.36 X10^3/uL; Monocyte% 6.8 % (0-10); Neutrophil # 3.12 X10^3/uL (2.7-7.7); Neutrophil % 58.6 % (47-70); Platelet Count 271 K/mm3 (150-450); RBC Distribution Width CV 15.1 % (11.6-14.6); RBC Distribution Width SD 47.4 fl (35.1-43.9); Red Blood Count 3.72 M/mm3 (4.6-6.2); White Blood Count 5.3 K/mm3 (4.4-11.0)
[2017-03-28 05:52] LABS: POSITIVE COUNT NO; POSITIVE DIFFERENTIAL NO; POSITIVE MORPHOLOGY NO
[2017-03-28] MEDS: Clindamycin 600 MG/50 ML BAG 100 MG IV (06:04)
[2017-03-28] MEDS: Enoxaparin 40 MG/0.4 ML Syringe SC (06:04)
[2017-03-28 06:14] LABS: Vancomycin, Trough Level 15.5 ug/mL (5.0-15.0)
[2017-03-28 06:45] LABS: Anion Gap 9 (5-15); BUN 19 mg/dL (7-18); BUN/Creat Ratio 20.9 RATIO (10-20); Calcium,Total 8.7 mg/dL (8.5-10.1); Chloride 100 mmol/L (98-107); Creatinine, Serum 0.91 mg/dL (0.70-1.30); EST Glomerular Filtration Rate 90 mL/min (>60); Est Glom Filt Rate - Afr Amer 109 mL/min (>60); Estimated Creatinine Clearance 103.17 ml/min; Glucose 134 mg/dL (74-106); Iron 49 ug/dL (65-175); Iron Binding Capacity,Total 354 ug/dL (250-450); PERCENT IRON SATURATION 13.8 % (15.0-55.0); Potassium 4.3 mmol/L (3.5-5.1); Sodium Level 137 mmol/L (136-145)
--- NOTE | 2017-03-28 07:26 | PCM.RX.CS ---
Subjective/Objective Date: 03/28/17 Time: 07:26 Antibiotic: Vancomycin Type of Consult: Follow-up Current Antibiotic Regimen: Medications Vancomycin HCl 1,750 mg/ (Sodium Chloride) 535 mls @ 260 mls/hr IV Q12H SWATI Last Admin: 03/28/17 06:04 Dose: 260 mls/hr Labs: Sodium 137 mmol/L (136-145) 03/28/17 05:24 Potassium 4.3 mmol/L (3.5-5.1) 03/28/17 05:24 Chloride 100 mmol/L (98-107) 03/28/17 05:24 Carbon Dioxide 28.0 mmol/L (21.0-32.0) 03/28/17 05:24 Anion Gap 9 (5-15) 03/28/17 05:24 BUN 19 mg/dL (7-18) H 03/28/17 05:24 Creatinine 0.91 mg/dL (0.70-1.30) 03/28/17 05:24 Est GFR (MDRD) Af Amer 109 mL/min (>60) 03/28/17 05:24 Est GFR (MDRD) Non-Af 90 mL/min (>60) 03/28/17 05:24 BUN/Creatinine Ratio 20.9 RATIO (10-20) H 03/28/17 05:24 Glucose 134 mg/dL (74-106) H 03/28/17 05:24 Vancomycin Trough 15.5 ug/mL (5.0-15.0) H 03/28/17 05:24 Pharmacy Plan for Drug Dosing: Vancomycin trough slightly above goal range, recommend to reduce to 1250mg IV q12h, recheck Friday. Pharmacy Service will continue to monitor and adjust dosing as required. Pharmacy to order these labs: Trough - Vancomycin Labs to be done on (date): 03/31/17 Labs to be done (time): 06:00
[2017-03-28 07:45] VITALS: BP 141/72; PULSE 70; RESP 18; TEMP 36.2; O2SAT 93
[2017-03-28] MEDS: Famotidine 20 MG Tablet PO (07:51)
[2017-03-28] MEDS: Triamterene 37.5MG/Hctz 25MG Capsule 1 CAP PO (07:51)
[2017-03-28] MEDS: Atorvastatin Calcium 20 MG Tablet PO (07:51)
[2017-03-28] MEDS: Glucerna Shake 120 ML LIQUID PO (07:51)
[2017-03-28] MEDS: Losartan Potassium 100 MG Tablet PO (07:51)
[2017-03-28] MEDS: Gabapentin 800 MG Tablet PO (07:51)
[2017-03-28] MEDS: Docusate Sodium 100 MG Capsule PO (07:52)
[2017-03-28] MEDS: Citalopram 40 MG TABLET PO (07:52)
[2017-03-28 08:00] LABS: Bedside Glucose 135 mg/dL (70-110)
[2017-03-28] MEDS: Ondansetron 4 MG/2 ML Vial IV (10:32)
--- NOTE | 2017-03-28 10:33 | PCM.PN.ID ---
Subjective: Feeling ok, but having some pain and nausea. No fever, no diarrhea. No issues with picc. - Physical Exam General: Alert, Cooperative, No apparent distress Lungs: Clear to auscultation, Normal air movement Cardiovascular: Regular rate, Regular Rhythm Abdomen: Soft, Non Tender, Non-Distended Skin: Ulcer/ Wound - Foot wrapped Vital Signs Temp Pulse Resp BP Pulse Ox 97.1 F L 70 18 141/72 H 93 03/28/17 07:45 03/28/17 07:45 03/28/17 07:45 03/28/17 07:45 03/28/17 07:45 Oxygen Flow Rate 2 Oxygen Delivery Method Room Air Weight: 145.773 kg Body Mass Index (BMI) 40.1 Finger Stick Blood Glucose 129 Intake and Output for Last 24 Hours 03/26/17 03/27/17 03/28/17 23:59 23:59 23:59 Intake Total 5427 / 5427 2905 / 2905 2870 / 2870 Output Total 5275 / 5275 2100 / 2100 1925 / 1925 Balance 152 / 152 805 / 805 945 / 945 Microbiology Past 72 Hours 03/25/17 16:00 Gram Stain - Final Tissue - Left Foot Wound Culture - Final Meth. resistant Staph. aureus Anaerobic Culture - Preliminary No growth in 48 hours. 03/25/17 16:00 Gram Stain - Final Tissue - Left Foot Wound Culture - Final No growth aerobically. Anaerobic Culture - Preliminary No growth in 48 hours. Laboratory Tests Past 24 Hrs 03/28/17 03/28/17 03/28/17 05:24 05:24 05:24 WBC 5.3 RBC 3.72 L Hgb 9.9 L Hct 32.0 L MCV 86.0 MCH 26.6 L MCHC 30.9 L RDW 15.1 H RDW Differential 47.4 H Plt Count 271 MPV 8.5 Immature Gran % (Auto) 0.200 Neut % (Auto) 58.6 Lymph % (Auto) 29.1 Sebastian % (Auto) 6.8 Eos % (Auto) 4.9 Baso % (Auto) 0.4 Absolute Neuts (auto) 3.1 Absolute Lymphs (auto) 1.55 Total Counted Not Reportable Sodium 137 Potassium 4.3 Chloride 100 Carbon Dioxide 28.0 Anion Gap 9 BUN 19 H Creatinine 0.91 Estim Creat Clear Calc 103.17 Est GFR (MDRD) Af Amer 109 Est GFR (MDRD) Non-Af 90 BUN/Creatinine Ratio 20.9 H Glucose 134 H Calcium 8.7 Iron 49 L TIBC 354 Iron Saturation 13.8 L Vancomycin Trough 15.5 H POC Glucose 03/28/17 03/27/17 03/27/17 07:48 22:07 17:00 POC Glucose 135 H 169 H 189 H 03/27/17 11:47 POC Glucose 169 H Route of nutrition/ use of supplements: [] Nutritional Intake: [] IV Site: [] Tam Catheter: [] - Assessment/Plan Antibiotics: [] Assessment/Plan: [] L heel/midfoot MRSA osteo with new necrotizing fasciitis seen in OR 03/25/[address] Rodriguez. Improving on vanc/clinda/levaquin. Cx with MRSA. ESR at 31. Wbc normal, no fever. Picc in place. Plan on 8 week course of iv vanc, stop date 05/20/17. Weekly bmp, cbc, vanc trough, and ESR. Will stop levaquin and change clinda to 450mg po tid for 4 more days. Wrote rx for labs and iv vanc. At risk for amputation given severe recurrent infection. Will follow, d/w Dr. Monreal and skilled nursing case manager. I can see him in wound care center in follow-up.
[2017-03-28 11:03] VITALS: BP 147/81; PULSE 81; RESP 18; O2SAT 96
--- NOTE | 2017-03-28 11:04 | DCINST_ITS ---
- Discharge Diagnoses Reason(s) for Visit for Discharge Instructions: Nonhealing left foot wound You will use the following diet at home:: Calorie/Carbohydrate Controlled ( specify 1200, 1400, etc), Cardiac Your food should be the consistency of: Regular Your liquids should be the consistency of: Regular/Thin Discharge Activity: Return to Normal Activity Additional Instructions: Continue on IV antibiotics via your PICC line. Labs need to be drawn every week. Follow-up closely with the wound center, Dr. Rodriguez and Infectious disease. Continue on wound vac. Allergies/Adverse Reactions: Allergies cefepime Allergy (Verified 03/06/17 09:46) Hives lisinopril Allergy (Verified 03/06/17 09:46) cough sulfamethoxazole [From Octra] Allergy (Verified 03/06/17 09:46) turned red trimethoprim [From Octra] Allergy (Verified 03/06/17 09:46) turned red Penicillins Adverse Reaction (Intermediate, Verified 03/06/17 09:46) unknown Medications to take at Discharge Insulin Detemir [Levemir FlexPen] 100 units SC BID 10/12/14 Citalopram [Celexa] 40 mg PO BID 11/15/14 Gabapentin [Neurontin] 800 mg PO DAILY 11/15/14 Metformin HCl [Glucophage] 1,000 mg PO BIDCM 11/15/14 Losartan Potassium [Cozaar] 100 mg PO DAILY 06/05/16 MorphINE [Ms Contin] 15 mg PO TID 10/16/16 Clopidogrel Bisulfate [Plavix] 75 mg PO DAILY 01/01/17 BuPROPion (XL) [Wellbutrin Xl] 150 mg PO DAILY 01/21/17 Magnesium Hydroxide [Milk Of Magnesia] 30 ml PO DAILY PRN PRN udc 01/27/17 glimepiride 4 mg tablet 4 mg PO BID tab 01/31/17 Insulin Aspart [Novolog Flexpen] 30 units SC TIDCM 03/24/17 Simvastatin 40 mg PO DAILY 03/24/17 Triamterene/Hydrochlorothiazid [Triamterene-Hctz 37.5-25 mg Cp] 1 each PO DAILY 03/24/17 Vitamin D3 50,000 units PO QWEEK 03/24/17 Clindamycin [Cleocin] 450 mg PO TID #12 cap 03/28/17 Glucerna Shake 120 ml PO 4X/DAY #30 liquid 03/28/17 Vancomycin 1,250 mg IV Q12H #112 vial 03/28/17 The following prescriptions were given: Vancomycin 1,250 mg IV Q12H #112 vial Clindamycin [Cleocin] 450 mg PO TID #12 cap Glucerna Shake 120 ml PO 4X/DAY #30 liquid Primary Care Physician: Henry Rasheed [Primary Care Provider] - Please follow up with your Primary Care Physician in: within 2 weeks of discharge Please Follow Up With: Lucho Rodriguez MD When: within a week in the wound center as scheduled Please Follow Up With: Yariel Sanders MD When: within a week in the wound center. Proposed Discharge Date: 03/28/17
--- NOTE | 2017-03-28 11:04 | DS.PCM_ITS ---
Discharge Date and Diagnosis Date of Admission: 03/28/17 Date of Discharge: 03/28/17 - Primary Discharge Diagnosis Nonhealing left diabetic plantar foot ulcer/Charcot neuropathic osteoarthropathy - Secondary Discharge Diagnosis Chronic Problems (Last Reviewed 03/06/17 @ 09:46 by Renuka Key) Infection of left foot (Chronic) Hypersomnia (Chronic) Ulcer of midfoot with necrosis of muscle (Chronic) Nocturnal hypoxemia (Chronic) Abscess of left foot (Chronic) Diabetic ulcer of left foot with fat layer exposed (Chronic) Non-pressure chronic ulcer of left heel and midfoot with fat layer exposed ( Chronic) 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 Venous insufficiency of both lower extremities (Chronic) S/P transmetatarsal amputation of foot (Chronic) 03/04/[address] 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) Hypertension (Chronic) Amputation of right foot with complication (Chronic) Type 2 diabetes mellitus with diabetic polyneuropathy (Chronic) Stasis dermatitis of both legs (Chronic) Sleep apnea (Chronic) CPAP 15 cm H20, 100% compliant Neuropathy (Chronic) secondary to diabetes Morbid obesity (Chronic) Anemia (Chronic) Dyslipidemia (Chronic) Left ventricular hypertrophy (Chronic) Chronic pain syndrome (Chronic) Depression (Chronic) Hospital Course and Treatment Imaging Results: Clinical Impression(s) from Imaging Studies Lower Extremity MRI 03/24/17 14:01 IMPRESSION: Charcot foot with rocker-bottom deformity and plantar ulceration as well as induration but I do not see evidence of a defined abscess. See above description. Electronically Signed: Ritu Celestin MD at 22:42 EST Tel , Service support , ADDENDUM: 03/24/17 1670 ADDENDUM: 03/25/17 1624 Consultations 03/25/17 06:55 Consult: Onc/Wound/wound treatment rn Routine Comment: Reason for Consult:: left foot Operations: - - wound debridement Procedures: Wound vac placement Summary of Care Provided: 61-year-old male with PMHx of type 2DM, complicated by Charcot arthropathy, peripheral neuropathy, status post transmetatarsal amputation of right foot 03/[address] Yanes, type 2 diabetes mellitus, hypertension, hyperlipidemia admitted 03/24/17 due to nonhealing left foot wound. 1. Nonhealing left diabetic plantar foot ulcer/Charcot neuropathic osteoarthropathy, s/p wound debridement on 03/25/17 which showed fatty tissue necrosis, fasciitis. Wound cultures growing staph aureus, clinically stable, no leucocytosis, was on IV clindamycin, vancomycina and levaquin. ID consulted, continued on IV vancomycin, s/p wound vac. Per Dr. Rodriguez, patient will require amputation later when his insurance issues are sorted out. He is nonweightbearing on the left foot. Advised to keep left foot elevated as much as possible. 2. Type 2 diabetes mellitus with associated peripheral neuropathy, HbA1c 8.6, BS are stable, continue on scheduled NovoLog and Levemir. 3. Hypokalemia, replaced 4. Hypertension, stable 5. Hyperlipidemia, on statin. 6. Obstructive sleep apnea, on CPAP nightly. Patient follows with Dr. Kent. 7. PAD,status post amputation of the right transmetatarsal amputation. Continue on aspirin, statin. 8. Depression 9. Acute on chronic anemia of chronic disease, recent drop in Hb secondary to surgery and blood loss in wound. 10. Obesity, encouraged lifestyle dietary modifications. Discharge Diet: No Restrictions Discharge Activity: Return to Normal Activity Home Medications: Medications to take at Discharge Insulin Detemir [Levemir FlexPen] 100 units SC BID 10/12/14 Citalopram [Celexa] 40 mg PO BID 11/15/14 Gabapentin [Neurontin] 800 mg PO DAILY 11/15/14 Metformin HCl [Glucophage] 1,000 mg PO BIDCM 11/15/14 Losartan Potassium [Cozaar] 100 mg PO DAILY 06/05/16 MorphINE [Ms Contin] 15 mg PO TID 10/16/16 Clopidogrel Bisulfate [Plavix] 75 mg PO DAILY 01/01/17 BuPROPion (XL) [Wellbutrin Xl] 150 mg PO DAILY 01/21/17 Magnesium Hydroxide [Milk Of Magnesia] 30 ml PO DAILY PRN PRN udc 01/27/17 glimepiride 4 mg tablet 4 mg PO BID tab 01/31/17 Insulin Aspart [Novolog Flexpen] 30 units SC TIDCM 03/24/17 Simvastatin 40 mg PO DAILY 03/24/17 Triamterene/Hydrochlorothiazid [Triamterene-Hctz 37.5-25 mg Cp] 1 each PO DAILY 03/24/17 Vitamin D3 50,000 units PO QWEEK 03/24/17 Clindamycin [Cleocin] 450 mg PO TID #12 cap 03/28/17 Glucerna Shake 120 ml PO 4X/DAY #30 liquid 03/28/17 Vancomycin 1,500 mg IV Q12H 53 Days #106 vial 03/28/17 Following Prescrptions Were Given to Patient: Vancomycin 1,500 mg IV Q12H 53 Days #106 vial Clindamycin [Cleocin] 450 mg PO TID #12 cap Glucerna Shake 120 ml PO 4X/DAY #30 liquid Primary Care Physician: Henry Rasheed [Primary Care Provider] - Please follow up with your Primary Care Physician in: within 2 weeks of discharge Please Follow Up With: Lucho Rodriguez MD When: within a week in the wound center as scheduled Please Follow Up With: Yariel Sanders MD When: within a week in the wound center. Disposition: Home Minutes spent on discharge:: 25 Patient Condition:: Stable Meaningful Use Info Meaningful Use Diagnoses (Choose all that apply): None applicable Code Visit Inpatient E&M: 82977 Disch Hosp
--- NOTE | 2017-03-28 11:27 | CASEMGMT ---
Calls to [facility], Kalyani @ [facility]. Pt financials reviewed: if annual deductible not met, pt will owe $160.83/day until deductible met, then approx $32/day once deductible is met. Vancomycin dosing had changed. MARY CLEMENTE called to Dr. Sanders, reviewed need for new script. Dosing will be 1.5 gm IV Q 12 hours on dc. Script and PICC line information faxed to [facility]. -Reviewed financials with pt. He is aware of above. Per I, their financial person will call him. Questions answered. -DC plan reviewed with Dr. Salas and nursing. -Awaiting for [facility] pharmacy to notify when delivery will be to let pt know dc time today. Viky ARMENTAN RN ACM
--- NOTE | 2017-03-28 12:27 | CASEMGMT ---
Current labs faxed to [facility] and lab script. Call to [facility]- IV delivery will be around 6 pm tonight, so pt can discharge and receive evening dose @ home. Pt address and phone verified on facesheet. No further dc needs identified. Nurse and charge nurse nicole. Viky ARMENTAN RN ACM
[2017-03-28 13:19] VITALS: BP 147/81; PULSE 81; RESP 18; TEMP 36.6; O2SAT 96
[2017-03-28] MEDS: Clindamycin HCl 150 MG Capsule 450 MG PO (13:44)
[2017-03-28] MEDS: 0.9% NaCl PICC Flush 10 ML IV (13:57)
[2017-03-28 14:09] VITALS: O2SAT 96
== END 2017-03-28 14:25 | disposition home or self-care (01) | DRG 622 ==
PROVIDERS: Anesthesiology; Nurse Practitioner Family; Admitting Provider Surgery; Family Provider Internal Medicine; PCP Internal Medicine; Visit Provider Internal Medicine
PROC: 0JBR0ZZ Excision of Left Foot Subcutaneous Tissue and Fascia, Open Approach (ICD-10-PCS; principal; 2017-03-25 07:20)
DX: E11.621 Type 2 diabetes mellitus with foot ulcer (principal); M72.6 Necrotizing fasciitis; L97.522 Non-pressure chronic ulcer of other part of left foot with fat layer exposed; L97.423 Non-pressure chronic ulcer of left heel and midfoot with necrosis of muscle; E11.42 Type 2 diabetes mellitus with diabetic polyneuropathy; D62 Acute posthemorrhagic anemia; E11.610 Type 2 diabetes mellitus with diabetic neuropathic arthropathy; E11.65 Type 2 diabetes mellitus with hyperglycemia; Z68.41 Body mass index [BMI] 40.0-44.9, adult; E11.622 Type 2 diabetes mellitus with other skin ulcer; B95.62 Methicillin resistant Staphylococcus aureus infection as the cause of diseases classified elsewhere; E87.6 Hypokalemia; M14.672 Charcot's joint, left ankle and foot; I73.9 Peripheral vascular disease, unspecified; I10 Essential (primary) hypertension; G47.33 Obstructive sleep apnea (adult) (pediatric); E88.09 Other disorders of plasma-protein metabolism, not elsewhere classified; E78.5 Hyperlipidemia, unspecified; E55.9 Vitamin D deficiency, unspecified; E66.01 Morbid (severe) obesity due to excess calories; G89.4 Chronic pain syndrome; F32.9 Major depressive disorder, single episode, unspecified; Z91.19 Patient's noncompliance with other medical treatment and regimen; Z79.02 Long term (current) use of antithrombotics/antiplatelets; Z79.4 Long term (current) use of insulin; Z79.899 Other long term (current) drug therapy; Z86.14 Personal history of Methicillin resistant Staphylococcus aureus infection; Z87.891 Personal history of nicotine dependence; Z89.431 Acquired absence of right foot
CPT/HCPCS: 36415; 36569; 73720; 80048; 80053; 80202; 82962; 83036; 83540; 83550; 84134; 85025; 85027; 85652; 86140; 87070; 87075; 87077; 87102; 87186; 87205; 87206; 88304; 88312; 97802; A9585; J7040; J7120; A4216; J2405

== ENCOUNTER → 2017-04-02 08:00 | Outpatient (CLI) | payer OTHER, SELFPAY ==
[2017-04-02 08:33] LABS: Erythrocyte Sedimentation Rate 44 mm/hr (0-20)
[2017-04-02 08:34] LABS: Hematocrit 31.3 % (40-54); Hemoglobin 9.7 g/dl (13.0-16.5); Mean Corpuscular Hgb 26.8 pg (27.0-32.0); Mean Corpuscular Volume 86.5 fL (80-94); Mean Platelet Vol. 8.8 fl (6.2-12.0); Platelet Count 353 K/mm3 (150-450); RBC Distribution Width CV 15.6 % (11.6-14.6); RBC Distribution Width SD 47.2 fl (35.1-43.9); Red Blood Count 3.62 M/mm3 (4.6-6.2); White Blood Count 5.6 K/mm3 (4.4-11.0)
[2017-04-02 08:36] LABS: Scan Indicated on CBC? Y/N NO
[2017-04-02 08:51] LABS: Anion Gap 7 (5-15); BUN 15 mg/dL (7-18); BUN/Creat Ratio 16.5 RATIO (10-20); Calcium,Total 8.7 mg/dL (8.5-10.1); Chloride 99 mmol/L (98-107); Creatinine, Serum 0.91 mg/dL (0.70-1.30); EST Glomerular Filtration Rate 90 mL/min (>60); Est Glom Filt Rate - Afr Amer 109 mL/min (>60); Glucose 175 mg/dL (74-106); Potassium 4.2 mmol/L (3.5-5.1); Sodium Level 136 mmol/L (136-145)
[2017-04-02 09:02] LABS: Vancomycin, Trough Level 10.3 ug/mL (5.0-15.0)
== END ==
PROVIDERS: Family Provider Internal Medicine; PCP Internal Medicine; Visit Provider Internal Medicine Infectious Disease
DX: M86.8X7 Other osteomyelitis, ankle and foot (principal); B95.62 Methicillin resistant Staphylococcus aureus infection as the cause of diseases classified elsewhere; M72.6 Necrotizing fasciitis
CPT/HCPCS: 80048; 80202; 85027; 85652; 99211; J7050; A4216; G0463

== ENCOUNTER → 2017-04-09 07:52 | Outpatient (CLI) | payer OTHER, SELFPAY ==
[2017-04-09 08:47] LABS: Anion Gap 7 (5-15); BUN 18 mg/dL (7-18); Calcium,Total 8.7 mg/dL (8.5-10.1); Chloride 101 mmol/L (98-107); EST Glomerular Filtration Rate 91 mL/min (>60); Est Glom Filt Rate - Afr Amer 110 mL/min (>60); Glucose 135 mg/dL (74-106); Potassium 4.3 mmol/L (3.5-5.1); Sodium Level 139 mmol/L (136-145)
[2017-04-09 08:50] LABS: Hematocrit 33.3 % (40-54); Hemoglobin 10.4 g/dl (13.0-16.5); Mean Corp Hgb Conc 31.2 g/gl (32-36); Mean Corpuscular Hgb 26.7 pg (27.0-32.0); Mean Corpuscular Volume 85.4 fL (80-94); Mean Platelet Vol. 8.4 fl (6.2-12.0); Platelet Count 291 K/mm3 (150-450); RBC Distribution Width CV 15.5 % (11.6-14.6); RBC Distribution Width SD 47.9 fl (35.1-43.9)
[2017-04-09 08:52] LABS: Scan Indicated on CBC? Y/N NO
[2017-04-09 09:01] LABS: Erythrocyte Sedimentation Rate 46 mm/hr (0-20)
[2017-04-09 09:18] LABS: Vancomycin, Trough Level 13.4 ug/mL (5.0-15.0)
== END ==
PROVIDERS: Family Provider Internal Medicine; PCP Internal Medicine; Visit Provider Internal Medicine Infectious Disease
DX: M86.8X7 Other osteomyelitis, ankle and foot (principal); M72.6 Necrotizing fasciitis; B95.62 Methicillin resistant Staphylococcus aureus infection as the cause of diseases classified elsewhere
CPT/HCPCS: 80048; 80202; 85027; 85652; 99211; G0463

== ENCOUNTER 2017-04-14 09:30 | Outpatient (RCR) | payer OTHER, SELFPAY ==
[2017-03-06 09:45] VITALS: BMI 37.5
[2017-03-17 09:21] VITALS: BP 155/75
[2017-03-20 00:40] VITALS: PULSE 78; RESP 18; TEMP 37.2
[2017-03-24 09:16] VITALS: BP 154/71; PULSE 80; RESP 18; TEMP 36.9
[2017-03-31 12:27] VITALS: BP 153/66; PULSE 80; RESP 18; TEMP 37.3; BMI 37.5
[2017-04-02 11:48] VITALS: BP 156/84; PULSE 87; RESP 18; TEMP 37.3; BMI 37.5
[2017-04-04 11:30] VITALS: BP 160/90; PULSE 88; RESP 20; TEMP 37.1; BMI 37.5
[2017-04-07 09:31] VITALS: BMI 37.5
--- NOTE | 2017-04-07 19:19 | PN.PCM_ITS ---
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 History of Wound: Surgery 03/25/17 - 1. Surgical preparation left plantar foot with incision and drainage and excisional debridement nonhealing infected diabetic ulcer with fasciitis (30 cm2). 2. Surgical preparation left medial foot with incision and drainage and excisional debridement nonhealing infected diabetic ulcer with fasciitis (24 cm2). Wound care - VAC. Operative culture - MRSA. He is on Vancomycin. Prealbumin on 03/24/17 was 32.7. Patient takes nutritional supplementation with protein to help the healing process. Also on 03.24.17, Hgb A1c was 8.6, CRP was 7.57, and ESR was 31. MRI on 03/24/17 showed the Charcot deformity and plantar fasciitis. No abscess was seen and no definitive evidence of. Today he denies any fever. His appetite is good. Progress of Wound: Recent surgery 03/25/17. - Physical Exam Vital Signs Temp Pulse Resp BP 98.7 F 88 20 H 160/90 H 04/04/17 11:30 04/04/17 11:30 04/04/17 11:30 04/04/17 11:30 Wound Measurements and Assessment WC - Nurse 1 - General Ulcer Measurement Start: 03/24/17 09:15 Freq: Status: Active Protocol: Activity Type Activity Date Activity User E-Sign Co-Sign Detail Recorded Client Recorded Date Recorded By Document 04/07/17 09:31 [id number] 04/07/17 09:37 04/07/17 09:31 Wound Center Nurse 1 [Ulcer Assessment] #22 Left Medial Foot (post-op) -Combined with other wound No -Current Size (cm) - Length 8.0 -Current Size (cm) - Width 2.8 -Current Size (cm) - Depth 1.8 -Total Square Cm 22.40 -Photo Taken No -Epithelialization None Present -Tunneling No -Undermining/Tunneling No -Circular Undermining No -Classification - Thickness Full Thickness without Exposed Support Structure -Exudate Amt Medium (34-66%) -Exudate Type Serosanguineous -Wound Margin Distinct, Outline Attached -Granulation Amt Large (67-100%) -Granulation Quality [place] Red -Slough/Fibrin Yes -Necrosis Amt Small (1-33%) -Necrotic Tissue Type Adherent Slough -Structure Exposed Fascia Fat Layer Exposed -Texture (Yael-wound Skin Appearance) Localized Edema Scarring -Moisture (Yael-wound Skin Appearance Maceration ) -Color (Yael-wound Skin Appearance) Erythema -Temperature (Yael-wound Skin No Abnormality Appearance) (Pt Warm) -Tenderness on Palpation (Yael-wound No Skin Appearance) -Ulcer Cleansing crescencio hex -Foul Odor after Cleansing No -Anesthetic Used 4% Lidocaine Solution #20 lt lat plantar -Combined with other wound No -Current Size (cm) - Length 6.0 -Current Size (cm) - Width 6.4 -Current Size (cm) - Depth 2.0 -Total Square Cm 38.40 -Photo Taken No -Epithelialization None Present -Tunneling No -Undermining/Tunneling No -Circular Undermining No -Classification - Thickness Full Thickness with Exposed Support Structure -Exudate Amt Large (67-100%) -Exudate Type Serosanguineous -Wound Margin Distinct, Outline Attached -Granulation Amt Medium (34-66%) -Granulation Quality [place] Red -Slough/Fibrin Yes -Necrosis Amt Medium (34-66%) -Necrotic Tissue Type Adherent Slough -Structure Exposed Fascia Bone Fat Layer Exposed -Texture (Yael-wound Skin Appearance) Localized Edema Scarring -Moisture (Yael-wound Skin Appearance Maceration ) -Color (Yael-wound Skin Appearance) Erythema -Temperature (Yael-wound Skin No Abnormality Appearance) (Pt Warm) -Ulcer Cleansing crescencio hex -Foul Odor after Cleansing No -Anesthetic Used 4% Lidocaine Solution [Edema Assessment] -Lower Limb Edema Present Yes -Left Calf (cm) 41.8 -Left Ankle (cm) 23.4 WC - Nurse 2 - General Ulcer CM Notes Start: 03/24/17 09:15 Freq: Status: Active Protocol: Activity Type Activity Date Activity User E-Sign Co-Sign Detail Recorded Client Recorded Date Recorded By Document 04/07/17 09:49 MUSTAPHA [id number] 04/07/17 09:54 MUSTAPHA 04/07/17 09:49 Wound Center Nurse 2 [Procedure/Treatment] #22 Left Medial Foot (post-op) -Time 09:50 -Correct Patient Yes -Correct Side, Site, Position Yes -Correct Procedure Yes -Procedure Performed Yes -Type of Procedure Debridement -Clinical Debridement Muscle -Post Debridement Size (cm) - Length 8 -Post Debridement Size (cm) - Width 3 -Post Debridement Size (cm) - Depth 1.8 -Total Square Cm 24 -Wound/Ulcer Outcome Not Healed -Ulcer Cleansing Rinsed/ Irrigated with Saline -Foul Odor after Cleansing No -Bioengineered Tissue No -Bleeding Controlled with Pressure -Treatment Response Procedure Tolerated Well #20 lt lat plantar -Time 09:53 -Correct Patient Yes -Correct Side, Site, Position Yes -Correct Procedure Yes -Procedure Performed Yes -Type of Procedure Debridement -Clinical Debridement Muscle -Post Debridement Size (cm) - Length 6 -Post Debridement Size (cm) - Width 6.5 -Post Debridement Size (cm) - Depth 2.1 -Total Square Cm 39.0 -Wound/Ulcer Outcome Not Healed -Ulcer Cleansing Rinsed/ Irrigated with Saline -Foul Odor after Cleansing No -Bioengineered Tissue No -Bleeding Controlled with Pressure -Treatment Response Procedure Tolerated Well [See Physician Procedure note for Specifics] Pain Scale: 0-10 Numeric [Pain] -Is Patient Pain Free? Yes Debridement Note Post-Debridement Measurements/Treatment WC - Nurse 2 - General Ulcer CM Notes Start: 03/24/17 09:15 Freq: Status: Active Protocol: Activity Type Activity Date Activity User E-Sign Co-Sign Detail Recorded Client Recorded Date Recorded By Document 03/24/17 09:40 [id number] 03/24/17 09:41 Document 04/07/17 09:49 [id number] 04/07/17 09:54 03/24/17 04/07/17 09:40 09:49 Wound Center Nurse 2 #22 Left Medial Foot (post-op) -Time 09:50 -Correct Patient No Yes -Correct Side, Site, Position No Yes -Correct Procedure No Yes -Procedure Performed No Yes -Type of Procedure Debridement -Clinical Debridement Muscle -Post Debridement Size (cm) - Length 8 -Post Debridement Size (cm) - Width 3 -Post Debridement Size (cm) - Depth 1.8 -Total Square Cm 24 -Wound/Ulcer Outcome Not Healed -Ulcer Cleansing Rinsed/ Irrigated with Saline -Foul Odor after Cleansing No -Bioengineered Tissue No -Bleeding Controlled with Pressure -Treatment Response Procedure Tolerated Well #20 lt lat plantar -Time 09:53 -Correct Patient No Yes -Correct Side, Site, Position No Yes -Correct Procedure No Yes -Procedure Performed No Yes -Type of Procedure Debridement -Clinical Debridement Muscle -Post Debridement Size (cm) - Length 6 -Post Debridement Size (cm) - Width 6.5 -Post Debridement Size (cm) - Depth 2.1 -Total Square Cm 39.0 -Wound/Ulcer Outcome Not Healed -Ulcer Cleansing Rinsed/ Irrigated with Saline -Foul Odor after Cleansing No -Bioengineered Tissue No -Bleeding Controlled with Pressure -Treatment Response Procedure Tolerated Well Pain Scale: 0-10 Numeric Is Patient Pain Free? Yes Yes Wound debrided: #20 Left plantar foot. Laterality: Left Wound Grade/Stage: 3. Type of Debridement: Excisional debridement Anesthesia Used: 4% Lidocaine Solution Depth: Down to and including healthy tissue, in the subcutaneous layer, to muscle Percentage of wound debrided: 100 Instrument Used: 7mm curette, 3-12 blade Tissue Removed: subcutaneous tissue and muscle. Severity: Fat Layer Exposed - muscle is exposed. Amount of bleeding with debridement: Mild Bleeding Controlled with: Pressure Patient tolerated procedure well - Additional Wound Wound debrided: #22 Left medial foot. Laterality: Left Wound Grade/Stage: 3. Type of Debridement: Excisional debridement Anesthesia Used: 4% Lidocaine Solution Depth: Down to and including healthy tissue, in the subcutaneous layer, to muscle Percentage of wound debrided: 100 Instrument Used: 7mm curette Tissue Removed: subcutaneous tissue and muscle. Severity: Fat Layer Exposed - muscle is exposed. Amount of bleeding with debridement: Mild Bleeding Controlled with: Pressure Patient tolerated procedure: Patient tolerated procedure well Assessment/Plan Active Problems (Last Reviewed 03/06/17 @ 09:46 by Renuka Key) Osteomyelitis (Acute) Assessment: 1. Nonhealing infected diabetic ulcer with fasciitis left plantar foot. 2. Nonhealing infected diabetic ulcer with fasciitis left medial foot. 3. Diabetes mellitus. 4. MRSA. 5. Charcot foot neuropathic osteoarthropathy. 6. Former smoker. 7. s/p surgical preparation left plantar foot with incision and drainage and excisional debridement nonhealing infected diabetic ulcer with fasciitis (30 cm2) and surgical preparation left medial foot with incision and drainage and excisional debridement nonhealing infected diabetic ulcer with fasciitis (24 cm2). Plan: Continue the VAC. Continue IV Vancomycin. Prealbumin on 03/24/17 was 32.7. Continue nutritional supplementation with protein to help the healing process. Continue left leg elevation and compression. Followup one week. After the IV Vancomycin is completed, if he continues to develop infections he is considering proceeding with an amputation. Will discuss further at future visits as needed.
[2017-04-09 08:41] VITALS: BP 162/78; PULSE 91; RESP 18; TEMP 36.9; BMI 37.5
[2017-04-11 12:09] VITALS: BP 148/79; PULSE 88; RESP 20; TEMP 37; BMI 37.5
[2017-04-14 09:45] VITALS: BP 163/76; PULSE 84; RESP 20; TEMP 36.8; BMI 37.5
--- NOTE | 2017-04-14 18:01 | PCM.WC.PN ---
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 History of Wound: Surgery 03/25/17 - 1. Surgical preparation left plantar foot with incision and drainage and excisional debridement nonhealing infected diabetic ulcer with fasciitis (30 cm2). 2. Surgical preparation left medial foot with incision and drainage and excisional debridement nonhealing infected diabetic ulcer with fasciitis (24 cm2). Wound care - VAC. Operative culture - MRSA. He is on Vancomycin. Prealbumin on 03/24/17 was 32.7. Patient takes nutritional supplementation with protein to help the healing process. Also on 03.24.17, Hgb A1c was 8.6, CRP was 7.57, and ESR was 31. MRI on 03/24/17 showed the Charcot deformity and plantar fasciitis. No abscess was seen and no definitive evidence of osteomyelitis. Today he denies any fever. His appetite is good. Progress of Wound: Recent surgery 03/25/17. - Physical Exam Vital Signs Temp Pulse Resp BP 98.2 F 84 20 H 163/76 H 04/14/17 09:45 04/14/17 09:45 04/14/17 09:45 04/14/17 09:45 Wound Measurements and Assessment WC - Nurse 1 - General Ulcer Measurement Start: 03/24/17 09:15 Freq: Status: Active Protocol: Activity Type Activity Date Activity User E-Sign Co-Sign Detail Recorded Client Recorded Date Recorded By Document 04/14/17 09:45 DL [id number] 04/14/17 09:57 DL 04/14/17 09:45 Wound Center Nurse 1 [Ulcer Assessment] #22 Left Medial Foot (post-op) -Current Size (cm) - Length 8.7 -Current Size (cm) - Width 2.8 -Current Size (cm) - Depth 1.8 -Total Square Cm 24.36 -Photo Taken No -Exudate Amt Large (67-100%) -Exudate Type Serosanguineous -Wound Margin Distinct, Outline Attached -Granulation Amt Large (67-100%) -Granulation Quality Red -Necrosis Amt Small (1-33%) -Necrotic Tissue Type Adherent Slough -Structure Exposed N/A -Texture (Yael-wound Skin Appearance) Localized Edema -Moisture (Yael-wound Skin Appearance Maceration ) -Color (Yael-wound Skin Appearance) Hemosiderin Staining -Temperature (Yael-wound Skin No Abnormality Appearance) (Pt Warm) -Ulcer Cleansing Wound Cleanser -Foul Odor after Cleansing No -Anesthetic Used 4% Lidocaine Solution #20 lt lat plantar -Current Size (cm) - Length 6 -Current Size (cm) - Width 5.8 -Current Size (cm) - Depth 1.6 -Total Square Cm 34.8 -Photo Taken No -Exudate Amt Large (67-100%) -Exudate Type Serosanguineous -Wound Margin Distinct, Outline Attached -Granulation Amt Large (67-100%) -Granulation Quality Red -Necrosis Amt None Present (0 %) -Necrotic Tissue Type Adherent Slough -Structure Exposed Bone -Texture (Yael-wound Skin Appearance) Localized Edema -Moisture (Yael-wound Skin Appearance Maceration ) -Color (Yael-wound Skin Appearance) Hemosiderin Staining -Temperature (Yael-wound Skin No Abnormality Appearance) (Pt Warm) -Ulcer Cleansing Wound Cleanser -Foul Odor after Cleansing No -Anesthetic Used 4% Lidocaine Solution [Edema Assessment] -Left Calf (cm) 41.5 -Point of Measurement (cm from the 23.5 medial instep) WC - Nurse 2 - General Ulcer CM Notes Start: 03/24/17 09:15 Freq: Status: Active Protocol: Activity Type Activity Date Activity User E-Sign Co-Sign Detail Recorded Client Recorded Date Recorded By Document 04/14/17 10:07 [email or web address] [id number] 04/14/17 10:09 [email or web address] 04/14/17 10:07 Wound Center Nurse 2 [Procedure/Treatment] #22 Left Medial Foot (post-op) -Time 10:08 -Correct Patient Yes -Correct Side, Site, Position Yes -Correct Procedure Yes -Procedure Performed Yes -Type of Procedure Debridement -Clinical Debridement Muscle -Post Debridement Size (cm) - Length 8.8 -Post Debridement Size (cm) - Width 2.8 -Post Debridement Size (cm) - Depth 1.8 -Total Square Cm 24.64 -Wound/Ulcer Outcome Not Healed -Ulcer Cleansing Rinsed/ Irrigated with Saline -Foul Odor after Cleansing No -Bioengineered Tissue No -Bleeding Controlled with Pressure -Treatment Response Procedure Tolerated Well #20 lt lat plantar -Time 10:08 -Correct Patient Yes -Correct Side, Site, Position Yes -Correct Procedure Yes -Procedure Performed Yes -Type of Procedure Debridement -Clinical Debridement Muscle -Post Debridement Size (cm) - Length 6.1 -Post Debridement Size (cm) - Width 5.8 -Post Debridement Size (cm) - Depth 1.7 -Total Square Cm 35.38 -Wound/Ulcer Outcome Not Healed -Ulcer Cleansing Rinsed/ Irrigated with Saline -Foul Odor after Cleansing No -Bioengineered Tissue No -Bleeding Controlled with Pressure -Treatment Response Procedure Tolerated Well [See Physician Procedure note for Specifics] Pain Scale: 0-10 Numeric [Pain] -Is Patient Pain Free? Yes Debridement Note Post-Debridement Measurements/Treatment WC - Nurse 2 - General Ulcer CM Notes Start: 03/24/17 09:15 Freq: Status: Active Protocol: Activity Type Activity Date Activity User E-Sign Co-Sign Detail Recorded Client Recorded Date Recorded By Document 03/24/17 09:40 [id number] 03/24/17 09:41 Document 04/07/17 09:49 [id number] 04/07/17 09:54 Document 04/14/17 10:07 [id number] 04/14/17 10:09 03/24/17 04/07/17 04/14/17 09:40 09:49 10:07 Wound Center Nurse 2 #22 Left Medial Foot (post-op) -Time 09:50 10:08 -Correct Patient No Yes Yes -Correct Side, Site, Position No Yes Yes -Correct Procedure No Yes Yes -Procedure Performed No Yes Yes -Type of Procedure Debridement Debridement -Clinical Debridement Muscle Muscle -Post Debridement Size (cm) - Length 8 8.8 -Post Debridement Size (cm) - Width 3 2.8 -Post Debridement Size (cm) - Depth 1.8 1.8 -Total Square Cm 24 24.64 -Wound/Ulcer Outcome Not Healed Not Healed -Ulcer Cleansing Rinsed/ Rinsed/ Irrigated with Irrigated with Saline Saline -Foul Odor after Cleansing No No -Bioengineered Tissue No No -Bleeding Controlled with Pressure Pressure -Treatment Response Procedure Procedure Tolerated Well Tolerated Well #20 lt lat plantar -Time 09:53 10:08 -Correct Patient No Yes Yes -Correct Side, Site, Position No Yes Yes -Correct Procedure No Yes Yes -Procedure Performed No Yes Yes -Type of Procedure Debridement Debridement -Clinical Debridement Muscle Muscle -Post Debridement Size (cm) - Length 6 6.1 -Post Debridement Size (cm) - Width 6.5 5.8 -Post Debridement Size (cm) - Depth 2.1 1.7 -Total Square Cm 39.0 35.38 -Wound/Ulcer Outcome Not Healed Not Healed -Ulcer Cleansing Rinsed/ Rinsed/ Irrigated with Irrigated with Saline Saline -Foul Odor after Cleansing No No -Bioengineered Tissue No No -Bleeding Controlled with Pressure Pressure -Treatment Response Procedure Procedure Tolerated Well Tolerated Well Pain Scale: 0-10 Numeric Is Patient Pain Free? Yes Yes Yes Wound debrided: #20 Left plantar foot. Laterality: Left Wound Grade/Stage: 3. Type of Debridement: Excisional debridement Anesthesia Used: 4% Lidocaine Solution Depth: Down to and including healthy tissue, in the subcutaneous layer, to muscle Percentage of wound debrided: 100 Instrument Used: 7mm curette Tissue Removed: subcutaneous tissue and muscle. Severity: Fat Layer Exposed - muscle is exposed. Amount of bleeding with debridement: Mild Bleeding Controlled with: Pressure Patient tolerated procedure well - Additional Wound Wound debrided: #22 Left medial foot. Laterality: Left Wound Grade/Stage: 3. Type of Debridement: Excisional debridement Anesthesia Used: 4% Lidocaine Solution Depth: Down to and including healthy tissue, in the subcutaneous layer, to muscle Percentage of wound debrided: 100 Instrument Used: 7mm curette Tissue Removed: subcutaneous tissue and muscle. Severity: Fat Layer Exposed - muscle is exposed. Amount of bleeding with debridement: Mild Bleeding Controlled with: Pressure Patient tolerated procedure: Patient tolerated procedure well Assessment/Plan Assessment: 1. Nonhealing infected diabetic ulcer with fasciitis left plantar foot. 2. Nonhealing infected diabetic ulcer with fasciitis left medial foot. 3. Diabetes mellitus. 4. MRSA. 5. Charcot foot neuropathic osteoarthropathy. 6. Former smoker. 7. s/p surgical preparation left plantar foot with incision and drainage and excisional debridement nonhealing infected diabetic ulcer with fasciitis (30 cm2) and surgical preparation left medial foot with incision and drainage and excisional debridement nonhealing infected diabetic ulcer with fasciitis (24 cm2). Plan: Continue the VAC. Continue IV Vancomycin. Prealbumin on 03/24/17 was 32.7. Continue nutritional supplementation with protein to help the healing process. Continue left leg elevation and compression. Followup one week. After the IV Vancomycin is completed, if he continues to develop infections he is considering proceeding with an amputation. Will discuss further at future visits as needed.
== END 2017-04-16 23:59 ==
LOC: WC 09:30
PROVIDERS: Family Provider Internal Medicine; PCP Internal Medicine; Visit Provider Surgery
DX: E11.621 Type 2 diabetes mellitus with foot ulcer (principal); E11.40 Type 2 diabetes mellitus with diabetic neuropathy, unspecified; E11.610 Type 2 diabetes mellitus with diabetic neuropathic arthropathy; L97.422 Non-pressure chronic ulcer of left heel and midfoot with fat layer exposed
CPT/HCPCS: 11043; 11046; 97605; 97606; 97608; 99211; 99214; G0463

== ENCOUNTER → 2017-04-16 07:58 | Outpatient (CLI) | payer OTHER, SELFPAY ==
[2017-04-16 08:18] LABS: Hematocrit 31.2 % (40-54); Hemoglobin 9.8 g/dl (13.0-16.5); Mean Corp Hgb Conc 31.4 g/gl (32-36); Mean Corpuscular Hgb 26.8 pg (27.0-32.0); Mean Corpuscular Volume 85.2 fL (80-94); Mean Platelet Vol. 8.2 fl (6.2-12.0); Platelet Count 260 K/mm3 (150-450); RBC Distribution Width CV 15.6 % (11.6-14.6); RBC Distribution Width SD 48.6 fl (35.1-43.9); Red Blood Count 3.66 M/mm3 (4.6-6.2); White Blood Count 7.3 K/mm3 (4.4-11.0)
[2017-04-16 08:22] LABS: Scan Indicated on CBC? Y/N NO
[2017-04-16 08:27] LABS: Erythrocyte Sedimentation Rate 36 mm/hr (0-20)
[2017-04-16 08:42] LABS: Vancomycin, Trough Level 13.7 ug/mL (5.0-15.0)
[2017-04-16 08:46] LABS: Anion Gap 11 (5-15); BUN 21 mg/dL (7-18); BUN/Creat Ratio 22.8 RATIO (10-20); Calcium,Total 8.5 mg/dL (8.5-10.1); Chloride 100 mmol/L (98-107); Creatinine, Serum 0.92 mg/dL (0.70-1.30); EST Glomerular Filtration Rate 89 mL/min (>60); Est Glom Filt Rate - Afr Amer 108 mL/min (>60); Glucose 256 mg/dL (74-106); Potassium 4.7 mmol/L (3.5-5.1); Sodium Level 138 mmol/L (136-145)
== END ==
PROVIDERS: Family Provider Internal Medicine; PCP Internal Medicine; Visit Provider Internal Medicine Infectious Disease
DX: M86.8X7 Other osteomyelitis, ankle and foot (principal); B95.62 Methicillin resistant Staphylococcus aureus infection as the cause of diseases classified elsewhere; M72.6 Necrotizing fasciitis
CPT/HCPCS: 36415; 80048; 80202; 85027; 85652; 99211; A4216; G0463

== ENCOUNTER → 2017-04-23 08:04 | Outpatient (CLI) | payer OTHER, SELFPAY ==
[2017-04-23 08:22] LABS: Hematocrit 29.2 % (40-54); Hemoglobin 9.1 g/dl (13.0-16.5); Mean Corp Hgb Conc 31.2 g/gl (32-36); Mean Corpuscular Hgb 26.6 pg (27.0-32.0); Mean Corpuscular Volume 85.4 fL (80-94); Mean Platelet Vol. 8.4 fl (6.2-12.0); Platelet Count 330 K/mm3 (150-450); RBC Distribution Width CV 15.4 % (11.6-14.6); Red Blood Count 3.42 M/mm3 (4.6-6.2); White Blood Count 5.7 K/mm3 (4.4-11.0)
[2017-04-23 08:23] LABS: Scan Indicated on CBC? Y/N NO
[2017-04-23 08:30] LABS: Erythrocyte Sedimentation Rate 40 mm/hr (0-20)
[2017-04-23 08:46] LABS: Anion Gap 6 (5-15); BUN 18 mg/dL (7-18); BUN/Creat Ratio 19.3 RATIO (10-20); Calcium,Total 8.5 mg/dL (8.5-10.1); Chloride 101 mmol/L (98-107); Creatinine, Serum 0.94 mg/dL (0.70-1.30); EST Glomerular Filtration Rate 87 mL/min (>60); Est Glom Filt Rate - Afr Amer 106 mL/min (>60); Glucose 220 mg/dL (74-106); Potassium 4.1 mmol/L (3.5-5.1); Sodium Level 136 mmol/L (136-145)
[2017-04-23 08:58] LABS: Vancomycin, Trough Level 11.6 ug/mL (5.0-15.0)
== END ==
PROVIDERS: Family Provider Internal Medicine; PCP Internal Medicine; Visit Provider Internal Medicine Infectious Disease
DX: M86.8X7 Other osteomyelitis, ankle and foot (principal); B95.62 Methicillin resistant Staphylococcus aureus infection as the cause of diseases classified elsewhere
CPT/HCPCS: 80048; 80202; 85027; 85652; 99211; A4216; G0463

== ENCOUNTER → 2017-04-30 08:10 | Outpatient (CLI) | payer OTHER, SELFPAY ==
[2017-04-30 08:54] LABS: Absolute Lymphocyte Count 1.39 X10^3/ul (0.83-4.51); Absolute Neutrophil Count 4.6 X10^3/uL (2.0-7.7); Basophil# 0.01 X10^3/uL; Basophil% 0.1 % (0-1); Eosinophil# 0.21 X10^3/uL; Eosinophils% 3.1 % (0-5); Hematocrit 30.3 % (40-54); Hemoglobin 9.3 g/dl (13.0-16.5); Lymphocyte # 1.39 X10^3/ul (4.0); Lymphocyte % 20.8 % (19-41); Mean Corp Hgb Conc 30.7 g/gl (32-36); Mean Corpuscular Hgb 26.3 pg (27.0-32.0); Mean Corpuscular Volume 85.8 fL (80-94); Mean Platelet Vol. 8.4 fl (6.2-12.0); Monocyte# 0.42 X10^3/uL; Monocyte% 6.3 % (0-10); Neutrophil # 4.63 X10^3/uL (2.7-7.7); Neutrophil % 69.4 % (47-70); Platelet Count 376 K/mm3 (150-450); RBC Distribution Width CV 15.2 % (11.6-14.6); RBC Distribution Width SD 47.7 fl (35.1-43.9); Red Blood Count 3.53 M/mm3 (4.6-6.2); White Blood Count 6.7 K/mm3 (4.4-11.0)
[2017-04-30 08:55] LABS: POSITIVE COUNT NO; POSITIVE DIFFERENTIAL NO; POSITIVE MORPHOLOGY NO
[2017-04-30 08:56] LABS: Erythrocyte Sedimentation Rate 58 mm/hr (0-20)
--- NOTE | 2017-04-30 09:00 | RAD_ITS ---
STUDY: X-RAY CHEST REASON FOR EXAM: Male, 61 years old. PICC line placement. TECHNIQUE: Single AP portable view of the chest. COMPARISON: Comparison is made with prior study dated September 18, 2016. FINDINGS: A right-sided PICC line catheter is seen. The tip is in the right internal jugular vein. The lungs are clear and expanded. There is no demonstrated pleural abnormality. Normal size heart. Normal mediastinum and valencia. Normal visualized pulmonary arteries. Normal visualized aortic arch and descending thoracic aorta. There are diffuse degenerative changes of the visualized thoracic spine. Normal visualized ribs, clavicles, and shoulders. There is no demonstrated abnormality of the visualized soft tissue structures of the upper abdomen. RAD/CXR for Line Placement IMPRESSION: The tip of the right PICC line catheter is in the right internal jugular vein. Electronically Signed: Alexander Arrington MD at 9:52 EDT Tel [phone], Service support ,
--- NOTE | 2017-04-30 09:15 | RAD_ITS ---
STUDY: X-RAY CHEST REASON FOR EXAM: Male, 61 years old. PICC line placement. TECHNIQUE: Single AP portable view of the chest. COMPARISON: Comparison is made with prior examination done earlier in the day at 8:11 AM. FINDINGS: The tip of the right PICC line catheter is in the right internal jugular vein. The lungs are clear and expanded. There is no demonstrated pleural abnormality. Normal size heart. Normal mediastinum and valencia. Normal visualized pulmonary arteries. Normal visualized aortic arch and descending thoracic aorta. Normal visualized thoracic spine. Normal visualized ribs, clavicles, and shoulders. There is no demonstrated abnormality of the visualized soft tissue structures of the upper abdomen. RAD/CXR for Line Placement IMPRESSION: The tip of the right PICC line catheter is in the right internal jugular vein. Electronically Signed: Alexander Arrington MD at 9:52 EDT Tel [phone], Service support ,
[2017-04-30 09:21] LABS: Anion Gap 8 (5-15); BUN 20 mg/dL (7-18); BUN/Creat Ratio 23.9 RATIO (10-20); Calcium,Total 8.7 mg/dL (8.5-10.1); Chloride 101 mmol/L (98-107); Creatinine, Serum 0.84 mg/dL (0.70-1.30); EST Glomerular Filtration Rate 99 mL/min (>60); Est Glom Filt Rate - Afr Amer 120 mL/min (>60); Glucose 197 mg/dL (74-106); Potassium 4.5 mmol/L (3.5-5.1); Sodium Level 137 mmol/L (136-145)
[2017-04-30 09:24] LABS: Vancomycin, Trough Level 13.9 ug/mL (5.0-15.0)
== END ==
PROVIDERS: Family Provider Internal Medicine; PCP Internal Medicine; Visit Provider Internal Medicine Infectious Disease
DX: M86.8X7 Other osteomyelitis, ankle and foot (principal); B95.62 Methicillin resistant Staphylococcus aureus infection as the cause of diseases classified elsewhere; M72.6 Necrotizing fasciitis
CPT/HCPCS: 36415; 36569; 71045; 80048; 80202; 85025; 85652; 99211; A4216; G0463

== ENCOUNTER → 2017-05-01 12:39 | Outpatient (CLI) | payer OTHER, SELFPAY ==
[2017-05-01 16:32] LABS: Amphetamine Urine VISTA NEGATIVE (<1000 ng/mL); Barbiturate Urine VISTA NEGATIVE (< 200 ng/mL); Benzodiazepine Urine VISTA NEGATIVE (< 200 ng/mL); Cocaine Urine VISTA NEGATIVE (< 300 ng/mL); Ecstacy Urine VISTA POSITIVE (< 500 ng/mL); Methadone Urine VISTA NEGATIVE (< 300 ng/mL); PCP Urine VISTA NEGATIVE (< 25 ng/mL); THC Urine VISTA NEGATIVE (< 50 ng/mL); Vista UDS pH Range 7
== END ==
PROVIDERS: Family Provider Internal Medicine; PCP Internal Medicine; Visit Provider Internal Medicine Infectious Disease
DX: Z45.2 Encounter for adjustment and management of vascular access device (principal); F11.20 Opioid dependence, uncomplicated
CPT/HCPCS: 80307; 99211; A4216; G0463

== ENCOUNTER → 2017-05-07 07:54 | Outpatient (CLI) | payer OTHER, SELFPAY ==
[2017-05-07 08:35] LABS: Absolute Lymphocyte Count 1.58 X10^3/ul (0.83-4.51); Absolute Neutrophil Count 4.5 X10^3/uL (2.0-7.7); Basophil# 0.03 X10^3/uL; Basophil% 0.4 % (0-1); Eosinophil# 0.26 X10^3/uL; Eosinophils% 3.7 % (0-5); Hematocrit 31.4 % (40-54); Hemoglobin 9.8 g/dl (13.0-16.5); Lymphocyte # 1.58 X10^3/ul (4.0); Lymphocyte % 22.4 % (19-41); Mean Corp Hgb Conc 31.2 g/gl (32-36); Mean Corpuscular Hgb 26.5 pg (27.0-32.0); Mean Corpuscular Volume 84.9 fL (80-94); Mean Platelet Vol. 8.5 fl (6.2-12.0); Monocyte# 0.63 X10^3/uL; Monocyte% 8.9 % (0-10); Neutrophil # 4.51 X10^3/uL (2.7-7.7); Platelet Count 402 K/mm3 (150-450); RBC Distribution Width CV 14.8 % (11.6-14.6); RBC Distribution Width SD 44.1 fl (35.1-43.9); White Blood Count 7.1 K/mm3 (4.4-11.0)
[2017-05-07 08:41] LABS: POSITIVE COUNT NO; POSITIVE DIFFERENTIAL NO; POSITIVE MORPHOLOGY NO
[2017-05-07 08:43] LABS: Erythrocyte Sedimentation Rate 43 mm/hr (0-20)
[2017-05-07 09:04] LABS: Anion Gap 8 (5-15); BUN 19 mg/dL (7-18); BUN/Creat Ratio 20.4 RATIO (10-20); Calcium,Total 8.7 mg/dL (8.5-10.1); Chloride 100 mmol/L (98-107); Creatinine, Serum 0.93 mg/dL (0.70-1.30); EST Glomerular Filtration Rate 88 mL/min (>60); Est Glom Filt Rate - Afr Amer 106 mL/min (>60); Glucose 191 mg/dL (74-106); Potassium 4.5 mmol/L (3.5-5.1); Sodium Level 137 mmol/L (136-145)
== END ==
PROVIDERS: Family Provider Internal Medicine; PCP Internal Medicine; Visit Provider Internal Medicine Infectious Disease
DX: M86.8X7 Other osteomyelitis, ankle and foot (principal); M72.6 Necrotizing fasciitis; B95.62 Methicillin resistant Staphylococcus aureus infection as the cause of diseases classified elsewhere
CPT/HCPCS: 80048; 80202; 85025; 85652; 99211; A4216; G0463

== ENCOUNTER → 2017-05-14 08:04 | Outpatient (CLI) | payer OTHER, SELFPAY ==
[2017-05-14 08:30] LABS: Erythrocyte Sedimentation Rate 29 mm/hr (0-20)
[2017-05-14 08:33] LABS: Absolute Lymphocyte Count 1.26 X10^3/ul (0.83-4.51); Absolute Neutrophil Count 4.1 X10^3/uL (2.0-7.7); Basophil# 0.01 X10^3/uL; Basophil% 0.2 % (0-1); Eosinophil# 0.27 X10^3/uL; Eosinophils% 4.3 % (0-5); Hematocrit 31.4 % (40-54); Hemoglobin 9.7 g/dl (13.0-16.5); Lymphocyte # 1.26 X10^3/ul (4.0); Lymphocyte % 20.3 % (19-41); Mean Corp Hgb Conc 30.9 g/gl (32-36); Mean Corpuscular Hgb 26.1 pg (27.0-32.0); Mean Corpuscular Volume 84.4 fL (80-94); Mean Platelet Vol. 8.5 fl (6.2-12.0); Monocyte# 0.61 X10^3/uL; Monocyte% 9.8 % (0-10); Neutrophil # 4.05 X10^3/uL (2.7-7.7); Neutrophil % 65.1 % (47-70); POSITIVE COUNT NO; POSITIVE DIFFERENTIAL NO; POSITIVE MORPHOLOGY NO; Platelet Count 316 K/mm3 (150-450); RBC Distribution Width SD 46.4 fl (35.1-43.9); Red Blood Count 3.72 M/mm3 (4.6-6.2); White Blood Count 6.2 K/mm3 (4.4-11.0)
[2017-05-14 08:39] LABS: Anion Gap 7 (5-15); BUN 19 mg/dL (7-18); BUN/Creat Ratio 20.7 RATIO (10-20); Calcium,Total 8.6 mg/dL (8.5-10.1); Chloride 102 mmol/L (98-107); Creatinine, Serum 0.92 mg/dL (0.70-1.30); EST Glomerular Filtration Rate 89 mL/min (>60); Est Glom Filt Rate - Afr Amer 108 mL/min (>60); Glucose 194 mg/dL (74-106); Potassium 4.2 mmol/L (3.5-5.1); Sodium Level 137 mmol/L (136-145)
[2017-05-14 09:14] LABS: Vancomycin, Trough Level 12.4 ug/mL (5.0-15.0)
[2017-05-14] MEDS: Alteplase 2 MG/2 ML Vial IV (10:56)
== END ==
PROVIDERS: Family Provider Internal Medicine; PCP Internal Medicine; Visit Provider Internal Medicine Infectious Disease
DX: Z45.2 Encounter for adjustment and management of vascular access device (principal); M86.8X7 Other osteomyelitis, ankle and foot; B95.62 Methicillin resistant Staphylococcus aureus infection as the cause of diseases classified elsewhere; M72.6 Necrotizing fasciitis
CPT/HCPCS: 36415; 36593; 80048; 80202; 85025; 85652; J2997; A4216

== ENCOUNTER 2017-05-16 11:30 | Outpatient (RCR) | payer OTHER, SELFPAY ==
[2017-04-17 00:34] VITALS: BP 154/71; PULSE 84; RESP 20; TEMP 36.8; BMI 37.5
[2017-04-17 15:24] VITALS: BP 153/81; PULSE 91; RESP 18; TEMP 36.7; BMI 37.5
[2017-04-21 09:57] VITALS: BP 151/94; PULSE 92; RESP 16; TEMP 36.9; BMI 37.5
--- NOTE | 2017-04-21 22:18 | PN.PCM_ITS ---
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 History of Wound: Surgery 03/25/17 - 1. Surgical preparation left plantar foot with incision and drainage and excisional debridement nonhealing infected diabetic ulcer with fasciitis (30 cm2). 2. Surgical preparation left medial foot with incision and drainage and excisional debridement nonhealing infected diabetic ulcer with fasciitis (24 cm2). Wound care - VAC. Operative culture - MRSA. He is on Vancomycin. Prealbumin on 03/24/17 was 32.7. Patient takes nutritional supplementation with protein to help the healing process. Also on 03.24.17, Hgb A1c was 8.6, CRP was 7.57, and ESR was 31. MRI on 03/24/17 showed the Charcot deformity and plantar fasciitis. No abscess was seen and no definitive evidence of osteomyelitis. Today he denies any fever. His appetite is good. It was noted he has a small abrasion left distal anterior leg probably from the compression wrap. Progress of Wound: Slightly improved. - Physical Exam Vital Signs Temp Pulse Resp BP 98.4 F 92 16 151/94 H 04/21/17 09:57 04/21/17 09:57 04/21/17 09:57 04/21/17 09:57 Wound Measurements and Assessment WC - Nurse 1 - General Ulcer Measurement Start: 04/17/17 15:24 Freq: Status: Active Protocol: Activity Type Activity Date Activity User E-Sign Co-Sign Detail Recorded Client Recorded Date Recorded By Document 04/21/17 09:57 [facility] [id number] 04/21/17 10:13 [facility] 04/21/17 09:57 Wound Center Nurse 1 [Ulcer Assessment] #22 Left Medial Foot (post-op) -Combined with other wound No -Current Size (cm) - Length 8 -Current Size (cm) - Width 2.9 -Current Size (cm) - Depth 1.5 -Total Square Cm 23.2 -Photo Taken No -Epithelialization None Present -Tunneling No -Undermining/Tunneling No -Circular Undermining No -Exudate Amt Large (67-100%) -Exudate Type Serosanguineous -Wound Margin Distinct, Outline Attached -Granulation Amt Large (67-100%) -Granulation Quality Hyper- granulation Red -Slough/Fibrin No -Necrosis Amt None Present (0 %) -Texture (Yael-wound Skin Appearance) Scarring -Moisture (Yael-wound Skin Appearance Maceration ) -Color (Yael-wound Skin Appearance) Palor -Temperature (Yael-wound Skin No Abnormality Appearance) (Pt Warm) -Tenderness on Palpation (Yael-wound No Skin Appearance) -Ulcer Cleansing Wound Cleanser -Foul Odor after Cleansing No -Anesthetic Used 4% Lidocaine Solution #20 lt lat plantar -Combined with other wound No -Current Size (cm) - Length 5.8 -Current Size (cm) - Width 6.4 -Current Size (cm) - Depth 1 -Total Square Cm 37.12 -Photo Taken No -Epithelialization None Present -Tunneling No -Undermining/Tunneling Yes -Undermining/Tunneling Starts (O' 12 clock) -Undermining/Tunneling Ends (O'clock) 12 -Maximum Distance (cm) 0.9 -Circular Undermining Yes -Exudate Amt Large (67-100%) -Exudate Type Serosanguineous -Wound Margin Distinct, Outline Attached -Granulation Amt Large (67-100%) -Granulation Quality Red -Slough/Fibrin Yes -Necrosis Amt Small (1-33%) -Necrotic Tissue Type Adherent Slough -Structure Exposed Tendon -Texture (Yael-wound Skin Appearance) Scarring -Moisture (Yael-wound Skin Appearance Maceration ) -Color (Yael-wound Skin Appearance) Palor -Temperature (Yael-wound Skin No Abnormality Appearance) (Pt Warm) -Tenderness on Palpation (Yael-wound No Skin Appearance) -Ulcer Cleansing Wound Cleanser -Anesthetic Used 4% Lidocaine Solution [Edema Assessment] -Lower Limb Edema Present Yes -Left Calf (cm) 45.1 -Left Ankle (cm) 28.7 WC - Nurse 2 - General Ulcer CM Notes Start: 04/17/17 15:24 Freq: Status: Active Protocol: Activity Type Activity Date Activity User E-Sign Co-Sign Detail Recorded Client Recorded Date Recorded By Document 04/21/17 10:58 MUSTAPHA [id number] 04/21/17 11:00 MUSTAPHA 04/21/17 10:58 Wound Center Nurse 2 [Procedure/Treatment] #22 Left Medial Foot (post-op) -Time 10:58 -Correct Patient Yes -Correct Side, Site, Position Yes -Correct Procedure Yes -Procedure Performed Yes -Type of Procedure Debridement -Clinical Debridement Muscle -Post Debridement Size (cm) - Length 8 -Post Debridement Size (cm) - Width 3 -Post Debridement Size (cm) - Depth 1.5 -Total Square Cm 24 -Wound/Ulcer Outcome Not Healed -Ulcer Cleansing Rinsed/ Irrigated with Saline -Foul Odor after Cleansing No -Bioengineered Tissue No -Bleeding Controlled with Pressure Silver Nitrate -Treatment Response Procedure Tolerated Well #20 lt lat plantar -Time 10:59 -Correct Patient Yes -Correct Side, Site, Position Yes -Correct Procedure Yes -Procedure Performed Yes -Type of Procedure Debridement -Clinical Debridement Muscle -Post Debridement Size (cm) - Length 5.8 -Post Debridement Size (cm) - Width 6.5 -Post Debridement Size (cm) - Depth 1.0 -Total Square Cm 37.70 -Wound/Ulcer Outcome Not Healed -Ulcer Cleansing Rinsed/ Irrigated with Saline -Foul Odor after Cleansing No -Bioengineered Tissue No -Bleeding Controlled with Pressure Silver Nitrate -Treatment Response Procedure Tolerated Well [See Physician Procedure note for Specifics] Pain Scale: 0-10 Numeric [Pain] -Is Patient Pain Free? Yes Debridement Note Post-Debridement Measurements/Treatment WC - Nurse 2 - General Ulcer CM Notes Start: 04/17/17 15:24 Freq: Status: Active Protocol: Activity Type Activity Date Activity User E-Sign Co-Sign Detail Recorded Client Recorded Date Recorded By Document 04/21/17 10:58 MUSTAPHA [id number] 04/21/17 11:00 MUSTAPHA 04/21/17 10:58 Wound Center Nurse 2 #22 Left Medial Foot (post-op) -Time 10:58 -Correct Patient Yes -Correct Side, Site, Position Yes -Correct Procedure Yes -Procedure Performed Yes -Type of Procedure Debridement -Clinical Debridement Muscle -Post Debridement Size (cm) - Length 8 -Post Debridement Size (cm) - Width 3 -Post Debridement Size (cm) - Depth 1.5 -Total Square Cm 24 -Wound/Ulcer Outcome Not Healed -Ulcer Cleansing Rinsed/ Irrigated with Saline -Foul Odor after Cleansing No -Bioengineered Tissue No -Bleeding Controlled with Pressure Silver Nitrate -Treatment Response Procedure Tolerated Well #20 lt lat plantar -Time 10:59 -Correct Patient Yes -Correct Side, Site, Position Yes -Correct Procedure Yes -Procedure Performed Yes -Type of Procedure Debridement -Clinical Debridement Muscle -Post Debridement Size (cm) - Length 5.8 -Post Debridement Size (cm) - Width 6.5 -Post Debridement Size (cm) - Depth 1.0 -Total Square Cm 37.70 -Wound/Ulcer Outcome Not Healed -Ulcer Cleansing Rinsed/ Irrigated with Saline -Foul Odor after Cleansing No -Bioengineered Tissue No -Bleeding Controlled with Pressure Silver Nitrate -Treatment Response Procedure Tolerated Well Pain Scale: 0-10 Numeric Is Patient Pain Free? Yes Wound debrided: #20 Left plantar foot. Laterality: Left Wound Grade/Stage: 3. Type of Debridement: Excisional debridement Anesthesia Used: 4% Lidocaine Solution Depth: Down to and including healthy tissue, in the subcutaneous layer, to muscle Percentage of wound debrided: 100 Instrument Used: 7mm curette Tissue Removed: subcutaneous tissue and muscle. Severity: Fat Layer Exposed - muscle is exposed. Amount of bleeding with debridement: Mild Bleeding Controlled with: Pressure, Silver Nitrate Patient tolerated procedure well - Additional Wound Wound debrided: #22 Left medial foot. Laterality: Left Wound Grade/Stage: 3. Type of Debridement: Excisional debridement Anesthesia Used: 4% Lidocaine Solution Depth: Down to and including healthy tissue, in the subcutaneous layer, to muscle Percentage of wound debrided: 100 Instrument Used: 7mm curette Tissue Removed: subcutaneous tissue and muscle. Severity: Fat Layer Exposed - muscle is exposed. Amount of bleeding with debridement: Mild Bleeding Controlled with: Pressure, Silver Nitrate Patient tolerated procedure: Patient tolerated procedure well Assessment/Plan Assessment: 1. Nonhealing infected diabetic ulcer with fasciitis left plantar foot. 2. Nonhealing infected diabetic ulcer with fasciitis left medial foot. 3. Diabetes mellitus. 4. MRSA. 5. Charcot foot neuropathic osteoarthropathy. 6. Former smoker. 7. s/p surgical preparation left plantar foot with incision and drainage and excisional debridement nonhealing infected diabetic ulcer with fasciitis (30 cm2) and surgical preparation left medial foot with incision and drainage and excisional debridement nonhealing infected diabetic ulcer with fasciitis (24 cm2). 8. Small abrasion left distal anterior leg. Plan: Continue the VAC. Continue IV Vancomycin. Prealbumin on 03/24/17 was 32.7. Continue nutritional supplementation with protein to help the healing process. Continue left leg elevation and compression. Followup one week. After the IV Vancomycin is completed, if he continues to develop infections he is considering proceeding with an amputation. Will discuss further at future visits as needed. Has small abrasion left distal anterior leg probably from the compression wrap. Will observe.
[2017-04-23 08:44] VITALS: BP 155/83; PULSE 83; RESP 24; TEMP 36.2; BMI 37.5
[2017-04-25 14:49] VITALS: BP 153/67; PULSE 90; RESP 16; TEMP 37.1; BMI 37.5
[2017-04-29 13:16] VITALS: BP 162/74; PULSE 93; RESP 18; TEMP 36.3; BMI 37.5
--- NOTE | 2017-04-29 22:09 | PCM.WC.PN ---
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 History of Wound: Surgery 03/25/17 - 1. Surgical preparation left plantar foot with incision and drainage and excisional debridement nonhealing infected diabetic ulcer with fasciitis (30 cm2). 2. Surgical preparation left medial foot with incision and drainage and excisional debridement nonhealing infected diabetic ulcer with fasciitis (24 cm2). Wound care - VAC. Operative culture - MRSA. He is on Vancomycin. Prealbumin on 03/24/17 was 32.7. Patient takes nutritional supplementation with protein to help the healing process. Also on 03/24/17, Hgb A1c was 8.6, CRP was 7.57, and ESR was 31. MRI on 03/24/17 showed the Charcot deformity and plantar fasciitis. No abscess was seen and no definitive evidence of osteomyelitis. Today he denies any fever. His appetite is good. It was noted he has a small abrasion left distal anterior leg probably from the compression wrap that has resolved. He states he has had his foot down a little bit recently and he comes in today with increasing redness yet not as bad when he needed to be admitted in early March. Progress of Wound: Increasing redness and swelling from dependency. - Physical Exam Vital Signs Temp Pulse Resp BP 97.3 F L 93 18 162/74 H 04/29/17 13:16 04/29/17 13:16 04/29/17 13:16 04/29/17 13:16 Wound Measurements and Assessment WC - Nurse 1 - General Ulcer Measurement Start: 04/17/17 15:24 Freq: Status: Active Protocol: Activity Type Activity Date Activity User E-Sign Co-Sign Detail Recorded Client Recorded Date Recorded By Document 04/29/17 13:16 TM [id number] 04/29/17 13:21 TM 04/29/17 13:16 Wound Center Nurse 1 [Ulcer Assessment] #22 Left Medial Foot (post-op) -Combined with other wound No -Current Size (cm) - Length 3.2 -Current Size (cm) - Width 9.0 -Current Size (cm) - Depth 0.7 -Total Square Cm 28.80 -Date of Last Picture (Recall this 04/29/17 field) -Photo Taken Yes -Epithelialization None Present -Tunneling No -Undermining/Tunneling Yes -Undermining/Tunneling Starts (O' 1 clock) -Undermining/Tunneling Ends (O'clock) 3 -Maximum Distance (cm) 0.8 -Circular Undermining No -Classification - Thickness Full Thickness without Exposed Support Structure -Exudate Amt Large (67-100%) -Exudate Type Serosanguineous -Wound Margin Thickened & Rolled Under -Granulation Amt Large (67-100%) -Granulation Quality Hyper- granulation Red -Slough/Fibrin Yes -Necrosis Amt Small (1-33%) -Necrotic Tissue Type Adherent Slough -Structure Exposed Fascia Fat Layer Exposed -Texture (Yael-wound Skin Appearance) Localized Edema Scarring -Moisture (Yael-wound Skin Appearance Maceration ) -Color (Yael-wound Skin Appearance) No Abnormality -Temperature (Yael-wound Skin No Abnormality Appearance) (Pt Warm) -Tenderness on Palpation (Yael-wound No Skin Appearance) -Ulcer Cleansing hibicleanse -Foul Odor after Cleansing No -Anesthetic Used 4% Lidocaine Solution #20 lt lat plantar -Combined with other wound No -Current Size (cm) - Length 6.0 -Current Size (cm) - Width 6.5 -Current Size (cm) - Depth 1.0 -Total Square Cm 39.00 -Date of Last Picture (Recall this 04/29/17 field) -Photo Taken Yes -Epithelialization None Present -Tunneling No -Undermining/Tunneling Yes -Undermining/Tunneling Starts (O' 4 clock) -Undermining/Tunneling Ends (O'clock) 2 -Maximum Distance (cm) 0.4 -Circular Undermining Yes -Classification - Thickness Full Thickness without Exposed Support Structure -Exudate Amt Large (67-100%) -Exudate Type Serosanguineous -Wound Margin Thickened & Rolled Under -Granulation Amt Large (67-100%) -Granulation Quality Hyper- granulation Red -Slough/Fibrin Yes -Necrosis Amt Small (1-33%) -Necrotic Tissue Type Adherent Slough -Structure Exposed Fascia Fat Layer Exposed -Texture (Yael-wound Skin Appearance) Localized Edema Scarring -Moisture (Yael-wound Skin Appearance Maceration ) -Color (Yael-wound Skin Appearance) No Abnormality -Temperature (Yael-wound Skin No Abnormality Appearance) (Pt Warm) -Tenderness on Palpation (Yael-wound No Skin Appearance) -Ulcer Cleansing hibicleanse -Foul Odor after Cleansing No -Anesthetic Used 4% Lidocaine Solution [Edema Assessment] -Lower Limb Edema Present Yes -Left Calf (cm) 44.0 -Left Ankle (cm) 31.5 BERNA - Nurse 2 - General Ulcer CM Notes Start: 04/17/17 15:24 Freq: Status: Active Protocol: Activity Type Activity Date Activity User E-Sign Co-Sign Detail Recorded Client Recorded Date Recorded By Document 04/29/17 13:38 [id number] 04/29/17 13:41 04/29/17 13:38 Wound Center Nurse 2 [Procedure/Treatment] #22 Left Medial Foot (post-op) -Time 13:39 -Correct Patient Yes -Correct Side, Site, Position Yes -Correct Procedure Yes -Procedure Performed Yes -Type of Procedure Debridement -Clinical Debridement Muscle -Post Debridement Size (cm) - Length 3.3 -Post Debridement Size (cm) - Width 9 -Post Debridement Size (cm) - Depth 0.7 -Total Square Cm 29.7 -Wound/Ulcer Outcome Not Healed -Ulcer Cleansing Rinsed/ Irrigated with Saline -Foul Odor after Cleansing No -Bioengineered Tissue No -Bleeding Controlled with Pressure -Treatment Response Procedure Tolerated Well #20 lt lat plantar -Time 13:39 -Correct Patient Yes -Correct Side, Site, Position Yes -Correct Procedure Yes -Procedure Performed Yes -Type of Procedure Debridement -Clinical Debridement Muscle -Post Debridement Size (cm) - Length 6 -Post Debridement Size (cm) - Width 6.6 -Post Debridement Size (cm) - Depth 1.0 -Total Square Cm 39.6 -Wound/Ulcer Outcome Not Healed -Ulcer Cleansing Rinsed/ Irrigated with Saline -Foul Odor after Cleansing No -Bioengineered Tissue No -Bleeding Controlled with Pressure Silver Nitrate -Treatment Response Procedure Tolerated Well [See Physician Procedure note for Specifics] Pain Scale: 0-10 Numeric [Pain] -Is Patient Pain Free? Yes Debridement Note Post-Debridement Measurements/Treatment BERNA - Nurse 2 - General Ulcer CM Notes Start: 04/17/17 15:24 Freq: Status: Active Protocol: Activity Type Activity Date Activity User E-Sign Co-Sign Detail Recorded Client Recorded Date Recorded By Document 04/21/17 10:58 [id number] 04/21/17 11:00 JF Document 04/29/17 13:38 [id number] 04/29/17 13:41 JF 04/21/17 04/29/17 10:58 13:38 Wound Center Nurse 2 #22 Left Medial Foot (post-op) -Time 10:58 13:39 -Correct Patient Yes Yes -Correct Side, Site, Position Yes Yes -Correct Procedure Yes Yes -Procedure Performed Yes Yes -Type of Procedure Debridement Debridement -Clinical Debridement Muscle Muscle -Post Debridement Size (cm) - Length 8 3.3 -Post Debridement Size (cm) - Width 3 9 -Post Debridement Size (cm) - Depth 1.5 0.7 -Total Square Cm 24 29.7 -Wound/Ulcer Outcome Not Healed Not Healed -Ulcer Cleansing Rinsed/ Rinsed/ Irrigated with Irrigated with Saline Saline -Foul Odor after Cleansing No No -Bioengineered Tissue No No -Bleeding Controlled with Pressure Pressure Silver Nitrate -Treatment Response Procedure Procedure Tolerated Well Tolerated Well #20 lt lat plantar -Time 10:59 13:39 -Correct Patient Yes Yes -Correct Side, Site, Position Yes Yes -Correct Procedure Yes Yes -Procedure Performed Yes Yes -Type of Procedure Debridement Debridement -Clinical Debridement Muscle Muscle -Post Debridement Size (cm) - Length 5.8 6 -Post Debridement Size (cm) - Width 6.5 6.6 -Post Debridement Size (cm) - Depth 1.0 1.0 -Total Square Cm 37.70 39.6 -Wound/Ulcer Outcome Not Healed Not Healed -Ulcer Cleansing Rinsed/ Rinsed/ Irrigated with Irrigated with Saline Saline -Foul Odor after Cleansing No No -Bioengineered Tissue No No -Bleeding Controlled with Pressure Pressure Silver Nitrate Silver Nitrate -Treatment Response Procedure Procedure Tolerated Well Tolerated Well Pain Scale: 0-10 Numeric Is Patient Pain Free? Yes Yes Wound debrided: #20 Left plantar foot. Laterality: Left Wound Grade/Stage: 3. Type of Debridement: Excisional debridement Anesthesia Used: 4% Lidocaine Solution Depth: Down to and including healthy tissue, in the subcutaneous layer, to muscle Percentage of wound debrided: 100 Instrument Used: 7mm curette Tissue Removed: subcutaneous tissue and muscle. Severity: Fat Layer Exposed - muscle is exposed. Amount of bleeding with debridement: Mild Bleeding Controlled with: Pressure, Silver Nitrate Patient tolerated procedure well - Additional Wound Wound debrided: #22 Left medial foot. Laterality: Left Wound Grade/Stage: 3. Type of Debridement: Excisional debridement Anesthesia Used: 4% Lidocaine Solution Depth: Down to and including healthy tissue, in the subcutaneous layer, to muscle Percentage of wound debrided: 100 Instrument Used: 7mm curette Tissue Removed: subcutaneous tissue and muscle. Severity: Fat Layer Exposed - muscle is exposed. Amount of bleeding with debridement: Mild Bleeding Controlled with: Pressure Patient tolerated procedure: Patient tolerated procedure well Assessment/Plan Assessment: 1. Nonhealing infected diabetic ulcer with fasciitis left plantar foot. 2. Nonhealing infected diabetic ulcer with fasciitis left medial foot. 3. Diabetes mellitus. 4. MRSA. 5. Charcot foot neuropathic osteoarthropathy. 6. Former smoker. 7. s/p surgical preparation left plantar foot with incision and drainage and excisional debridement nonhealing infected diabetic ulcer with fasciitis (30 cm2) and surgical preparation left medial foot with incision and drainage and excisional debridement nonhealing infected diabetic ulcer with fasciitis (24 cm2). 8. Small abrasion left distal anterior leg, resolved. Plan: Continue the VAC. Continue IV Vancomycin. Prealbumin on 03/24/17 was 32.7. Continue nutritional supplementation with protein to help the healing process. He needs better compression. Will start 3M two layer compression wrap that will be changed when the VAC is changed. If the redness and swelling worsen, then he would need additional IV antibiotics beside the Vancomycin and further operative debridement. Followup one week. After the IV Vancomycin is completed, if he continues to develop infections he is considering proceeding with an amputation. Will discuss further at future visits as needed.
[2017-05-02 14:44] VITALS: BP 156/69; PULSE 83; RESP 16; TEMP 36.9; BMI 37.5
[2017-05-05 10:02] VITALS: BP 151/81; PULSE 88; RESP 20; TEMP 36.7; BMI 37.5
--- NOTE | 2017-05-05 18:33 | PCM.WC.PN ---
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 History of Wound: Surgery 03/25/17 - 1. Surgical preparation left plantar foot with incision and drainage and excisional debridement nonhealing infected diabetic ulcer with fasciitis (30 cm2). 2. Surgical preparation left medial foot with incision and drainage and excisional debridement nonhealing infected diabetic ulcer with fasciitis (24 cm2). Wound care - VAC. Operative culture - MRSA. He is on Vancomycin. Prealbumin on 03/24/17 was 32.7. Patient takes nutritional supplementation with protein to help the healing process. Also on 03/24/17, Hgb A1c was 8.6, CRP was 7.57, and ESR was 31. MRI on 03/24/17 showed the Charcot deformity and plantar fasciitis. No abscess was seen and no definitive evidence of osteomyelitis. Today he denies any fever. His appetite is good. His redness and swelling have improved a lot after starting the 3M two layer compression wrap. Progress of Wound: Improved with the 3M two layer compression wrap. - Physical Exam Vital Signs Temp Pulse Resp BP 98.1 F 88 20 H 151/81 H 05/05/17 10:02 05/05/17 10:02 05/05/17 10:02 05/05/17 10:02 Wound Measurements and Assessment WC - Nurse 1 - General Ulcer Measurement Start: 04/17/17 15:24 Freq: Status: Active Protocol: Activity Type Activity Date Activity User E-Sign Co-Sign Detail Recorded Client Recorded Date Recorded By Document 05/05/17 10:02 DL [id number] 05/05/17 10:16 DL 05/05/17 10:02 Wound Center Nurse 1 [Ulcer Assessment] #22 Left Medial Foot (post-op) -Current Size (cm) - Length 3 -Current Size (cm) - Width 8.8 -Current Size (cm) - Depth 1 -Total Square Cm 26.4 -Photo Taken No -Exudate Amt Large (67-100%) -Exudate Type Serosanguineous -Wound Margin Thickened & Rolled Under -Granulation Amt Large (67-100%) -Granulation Quality Red -Necrosis Amt Small (1-33%) -Necrotic Tissue Type Adherent Slough -Structure Exposed N/A -Texture (Yael-wound Skin Appearance) Scarring -Moisture (Yael-wound Skin Appearance Maceration ) -Color (Yael-wound Skin Appearance) Erythema Hemosiderin Staining -Temperature (Yael-wound Skin No Abnormality Appearance) (Pt Warm) -Tenderness on Palpation (Yael-wound No Skin Appearance) -Ulcer Cleansing Wound Cleanser -Foul Odor after Cleansing No -Anesthetic Used 4% Lidocaine Solution #20 lt lat plantar -Current Size (cm) - Length 6 -Current Size (cm) - Width 6.1 -Current Size (cm) - Depth 1.7 -Total Square Cm 36.6 -Undermining/Tunneling Starts (O' 5 clock) -Undermining/Tunneling Ends (O'clock) 7 -Maximum Distance (cm) 0.8 -Exudate Amt Large (67-100%) -Exudate Type Serosanguineous -Wound Margin Thickened & Rolled Under -Granulation Amt Large (67-100%) -Granulation Quality [place] -Necrosis Amt Small (1-33%) -Necrotic Tissue Type Adherent Slough -Structure Exposed N/A -Texture (Yael-wound Skin Appearance) Scarring -Moisture (Yael-wound Skin Appearance Maceration ) -Color (Yael-wound Skin Appearance) Erythema Hemosiderin Staining -Tenderness on Palpation (Yael-wound No Skin Appearance) -Ulcer Cleansing Rinsed/ Irrigated with Saline -Foul Odor after Cleansing No -Anesthetic Used 4% Lidocaine Solution [Edema Assessment] -Left Calf (cm) 41.1 -Left Ankle (cm) 29.3 WC - Nurse 2 - General Ulcer CM Notes Start: 04/17/17 15:24 Freq: Status: Active Protocol: Activity Type Activity Date Activity User E-Sign Co-Sign Detail Recorded Client Recorded Date Recorded By Document 05/05/17 10:43 MUSTAPHA [id number] 05/05/17 10:44 MUSTAPHA 05/05/17 10:43 Wound Center Nurse 2 [Procedure/Treatment] #22 Left Medial Foot (post-op) -Time 10:44 -Correct Patient Yes -Correct Side, Site, Position Yes -Correct Procedure Yes -Procedure Performed Yes -Type of Procedure Debridement -Clinical Debridement Muscle -Post Debridement Size (cm) - Length 3.1 -Post Debridement Size (cm) - Width 8.8 -Post Debridement Size (cm) - Depth 1.0 -Total Square Cm 27.28 -Wound/Ulcer Outcome Not Healed -Ulcer Cleansing Rinsed/ Irrigated with Saline -Foul Odor after Cleansing No -Bioengineered Tissue No -Bleeding Controlled with Pressure -Treatment Response Procedure Tolerated Well #20 lt lat plantar -Time 10:44 -Correct Patient Yes -Correct Side, Site, Position Yes -Correct Procedure Yes -Procedure Performed Yes -Type of Procedure Debridement -Clinical Debridement Muscle -Post Debridement Size (cm) - Length 6.1 -Post Debridement Size (cm) - Width 6.1 -Post Debridement Size (cm) - Depth 1.7 -Total Square Cm 37.21 -Wound/Ulcer Outcome Not Healed -Ulcer Cleansing Rinsed/ Irrigated with Saline -Foul Odor after Cleansing No -Bioengineered Tissue No -Bleeding Controlled with Pressure -Treatment Response Procedure Tolerated Well [See Physician Procedure note for Specifics] Pain Scale: 0-10 Numeric [Pain] -Is Patient Pain Free? Yes Debridement Note Post-Debridement Measurements/Treatment WC - Nurse 2 - General Ulcer CM Notes Start: 04/17/17 15:24 Freq: Status: Active Protocol: Activity Type Activity Date Activity User E-Sign Co-Sign Detail Recorded Client Recorded Date Recorded By Document 04/21/17 10:58 [id number] 04/21/17 11:00 Document 04/29/17 13:38 [id number] 04/29/17 13:41 Document 05/05/17 10:43 [id number] 05/05/17 10:44 04/21/17 04/29/17 05/05/17 10:58 13:38 10:43 Wound Center Nurse 2 #22 Left Medial Foot (post-op) -Time 10:58 13:39 10:44 -Correct Patient Yes Yes Yes -Correct Side, Site, Position Yes Yes Yes -Correct Procedure Yes Yes Yes -Procedure Performed Yes Yes Yes -Type of Procedure Debridement Debridement Debridement -Clinical Debridement Muscle Muscle Muscle -Post Debridement Size (cm) - Length 8 3.3 3.1 -Post Debridement Size (cm) - Width 3 9 8.8 -Post Debridement Size (cm) - Depth 1.5 0.7 1.0 -Total Square Cm 24 29.7 27.28 -Wound/Ulcer Outcome Not Healed Not Healed Not Healed -Ulcer Cleansing Rinsed/ Rinsed/ Rinsed/ Irrigated with Irrigated with Irrigated with Saline Saline Saline -Foul Odor after Cleansing No No No -Bioengineered Tissue No No No -Bleeding Controlled with Pressure Pressure Pressure Silver Nitrate -Treatment Response Procedure Procedure Procedure Tolerated Well Tolerated Well Tolerated Well #20 lt lat plantar -Time 10:59 13:39 10:44 -Correct Patient Yes Yes Yes -Correct Side, Site, Position Yes Yes Yes -Correct Procedure Yes Yes Yes -Procedure Performed Yes Yes Yes -Type of Procedure Debridement Debridement Debridement -Clinical Debridement Muscle Muscle Muscle -Post Debridement Size (cm) - Length 5.8 6 6.1 -Post Debridement Size (cm) - Width 6.5 6.6 6.1 -Post Debridement Size (cm) - Depth 1.0 1.0 1.7 -Total Square Cm 37.70 39.6 37.21 -Wound/Ulcer Outcome Not Healed Not Healed Not Healed -Ulcer Cleansing Rinsed/ Rinsed/ Rinsed/ Irrigated with Irrigated with Irrigated with Saline Saline Saline -Foul Odor after Cleansing No No No -Bioengineered Tissue No No No -Bleeding Controlled with Pressure Pressure Pressure Silver Nitrate Silver Nitrate -Treatment Response Procedure Procedure Procedure Tolerated Well Tolerated Well Tolerated Well Pain Scale: 0-10 Numeric Is Patient Pain Free? Yes Yes Yes Wound debrided: #20 Left plantar foot. Laterality: Left Wound Grade/Stage: 3. Type of Debridement: Excisional debridement Anesthesia Used: 4% Lidocaine Solution Depth: Down to and including healthy tissue, in the subcutaneous layer, to muscle Percentage of wound debrided: 100 Instrument Used: 7mm curette Tissue Removed: subcutaneous tissue and muscle. Severity: Fat Layer Exposed - muscle is exposed. Amount of bleeding with debridement: Mild Bleeding Controlled with: Pressure Patient tolerated procedure well - Additional Wound Wound debrided: #22 Left medial foot. Laterality: Left Wound Grade/Stage: 3. Type of Debridement: Excisional debridement Anesthesia Used: 4% Lidocaine Solution Depth: Down to and including healthy tissue, in the subcutaneous layer, to muscle Percentage of wound debrided: 100 Instrument Used: 7mm curette Tissue Removed: subcutaneous tissue and muscle. Severity: Fat Layer Exposed - muscle is exposed. Amount of bleeding with debridement: Mild Bleeding Controlled with: Pressure Patient tolerated procedure: Patient tolerated procedure well Assessment/Plan Assessment: 1. Nonhealing infected diabetic ulcer with fasciitis left plantar foot. 2. Nonhealing infected diabetic ulcer with fasciitis left medial foot. 3. Diabetes mellitus. 4. MRSA. 5. Charcot foot neuropathic osteoarthropathy. 6. Former smoker. 7. s/p surgical preparation left plantar foot with incision and drainage and excisional debridement nonhealing infected diabetic ulcer with fasciitis (30 cm2) and surgical preparation left medial foot with incision and drainage and excisional debridement nonhealing infected diabetic ulcer with fasciitis (24 cm2). Plan: Continue the VAC. Continue IV Vancomycin. Prealbumin on 03/24/17 was 32.7. Continue nutritional supplementation with protein to help the healing process. The 3M two layer compression wrap has improved with decreased redness and swelling. It will be changed when the VAC is changed. Followup one week. After the IV Vancomycin is completed, if he continues to develop infections he is considering proceeding with an amputation. Will discuss further at future visits as needed.
[2017-05-07 09:06] VITALS: BP 136/70; PULSE 86; RESP 18; TEMP 37.7; BMI 37.5
[2017-05-09 13:26] VITALS: BMI 37.5
[2017-05-09 13:29] VITALS: BP 163/90; PULSE 92; RESP 20; TEMP 36.9; O2SAT 92; BMI 37.5
[2017-05-14 09:33] VITALS: BP 142/82; PULSE 92; RESP 18; TEMP 37.1; BMI 37.5
[2017-05-16 13:00] VITALS: BP 163/86; PULSE 68; RESP 18; TEMP 37; BMI 37.5
== END 2017-05-17 23:59 ==
LOC: WC 11:30
PROVIDERS: Family Provider Internal Medicine; PCP Internal Medicine; Visit Provider Surgery
DX: E11.621 Type 2 diabetes mellitus with foot ulcer (principal); E11.610 Type 2 diabetes mellitus with diabetic neuropathic arthropathy; E11.40 Type 2 diabetes mellitus with diabetic neuropathy, unspecified; L97.422 Non-pressure chronic ulcer of left heel and midfoot with fat layer exposed
CPT/HCPCS: 11043; 11046; 29581; 97605; 97606; 99211; 99212; 99213; G0463

== ENCOUNTER → 2017-05-21 13:45 | Outpatient (CLI) | payer MEDICARE, OTHER, SELFPAY | PROVIDERS: Family Provider Internal Medicine; PCP Internal Medicine; Visit Provider Internal Medicine Infectious Disease | DX: Z45.2 Encounter for adjustment and management of vascular access device (principal) | CPT/HCPCS: A4216 ==

== ENCOUNTER → 2017-05-23 12:23 | Outpatient (CLI) | payer MEDICARE, SELFPAY ==
--- NOTE | 2017-05-23 14:29 | PFTCOMP ---
COMPLETE PULMONARY FUNCTION TEST INTERPRETATION Brief HPI: Patient is a 61 year old male, currently under the care of myself, who presents to [facility] for complete pulmonary function tests secondary to diagnosis of shortness of breath. Respiratory therapist reports good effort and reproducible results. Interpretation: Forced expiration spirometry shows no large airways obstructive ventilatory defect with an FEV1 of 80% predicted. There is no significant bronchodilator response by ATS criteria. Spirograms are of good quality and plateau normally. The respiratory flow volume loop shows a normal pattern. Lung volumes by body plethysmography show a decreased total lung capacity at 6.22 L, 79% predicted. All other lung volumes are reduced symmetrically. Diffusion capacity by carbon monoxide is at the lower limit of normal at 77 % predicted. The airway resistance is elevated. No previous pulmonary function tests were available for review. Impression: Mild restrictive ventilatory defect with a symmetric reduction diffusing capacity.
== END ==
PROVIDERS: Family Provider Internal Medicine; PCP Internal Medicine; Visit Provider Nurse Practitioner Acute Care
DX: R06.02 Shortness of breath (principal)
CPT/HCPCS: 94060; 94726; 94729

== ENCOUNTER 2017-05-28 14:20 | Inpatient (IN) | payer MEDICARE, SELFPAY ==
[2017-05-28 14:21] VITALS: BP 158/72; PULSE 91; RESP 18; TEMP 36.9; O2SAT 98; BMI 40.6
--- NOTE | 2017-05-28 15:29 | RAD_ITS ---
STUDY: X-RAY - LEFT FOOT CLINICAL: Male, 62 years old. Nonhealing wounds. TECHNIQUE: 3 view(s) of the foot. COMPARISON: 01/22/2017. FINDINGS: There is a huge soft tissue defect 7 cm in size in the plantar midfoot, which should be clinically obvious. This appears to extend down to the bone of the mid foot. Marked destruction of the distal talus and navicular is seen much worse than prior exam. Findings could represent a combination of neuropathic joint and extensive osteomyelitis. Grossly normal metatarsals and digits. Loss of plantar arch. Prominent dorsal soft tissue swelling. There is soft tissue air in the plantar foot. IMPRESSION: Huge plantar soft tissue defect that extends down to the bones of the mid foot. There is extensive and progressive destruction of the osseous structures since previous exam. Findings may represent combination of neuropathic joint and osteomyelitis. Electronically Signed: Noe Ruth MD at 17:08 EDT , Service support , RAD/Foot min 3 Views
[2017-05-28] MEDS: Ondansetron 4 MG/2 ML Vial IV (15:55)
[2017-05-28] MEDS: Morphine 4 MG/ML Syringe IV (15:55)
[2017-05-28 16:00] LABS: Absolute Lymphocyte Count 1.56 X10^3/ul (0.83-4.51); Absolute Neutrophil Count 5.2 X10^3/uL (2.0-7.7); Basophil# 0.02 X10^3/uL; Basophil% 0.3 % (0-1); Eosinophil# 0.27 X10^3/uL; Eosinophils% 3.5 % (0-5); Hematocrit 28.7 % (40-54); Hemoglobin 8.9 g/dl (13.0-16.5); Lymphocyte # 1.56 X10^3/ul (4.0); Lymphocyte % 20.4 % (19-41); Mean Corpuscular Hgb 25.7 pg (27.0-32.0); Mean Corpuscular Volume 82.9 fL (80-94); Mean Platelet Vol. 8.6 fl (6.2-12.0); Monocyte# 0.57 X10^3/uL; Monocyte% 7.5 % (0-10); Neutrophil # 5.21 X10^3/uL (2.7-7.7); Neutrophil % 68.2 % (47-70); Platelet Count 323 K/mm3 (150-450); RBC Distribution Width CV 15.3 % (11.6-14.6); RBC Distribution Width SD 45.9 fl (35.1-43.9); Red Blood Count 3.46 M/mm3 (4.6-6.2); White Blood Count 7.6 K/mm3 (4.4-11.0)
[2017-05-28 16:02] LABS: POSITIVE COUNT NO; POSITIVE DIFFERENTIAL NO; POSITIVE MORPHOLOGY NO
[2017-05-28 16:17] LABS: Anion Gap 6 (5-15); BUN 21 mg/dL (7-18); BUN/Creat Ratio 22.6 RATIO (10-20); Calcium,Total 9.2 mg/dL (8.5-10.1); Chloride 102 mmol/L (98-107); Creatinine, Serum 0.93 mg/dL (0.70-1.30); EST Glomerular Filtration Rate 88 mL/min (>60); Est Glom Filt Rate - Afr Amer 107 mL/min (>60); Estimated Creatinine Clearance 99.69 ml/min; Glucose 168 mg/dL (74-106); Potassium 4.2 mmol/L (3.5-5.1); Sodium Level 137 mmol/L (136-145)
[2017-05-28 16:20] LABS: Lactic Acid 1.4 mmol/L (0.4-2.0)
--- NOTE | 2017-05-28 16:29 | RAD_ITS ---
STUDY: X-RAY CHEST REASON FOR EXAM: Male, 62 years old. Fever TECHNIQUE: Single AP portable view of the chest. COMPARISON: 04/30/2017. FINDINGS: The lungs are clear and expanded. There is no demonstrated pleural abnormality. Normal size heart. Normal mediastinum and valencia. Normal visualized pulmonary arteries. Normal visualized aortic arch and descending thoracic aorta. Normal visualized thoracic spine. Normal visualized ribs, clavicles, and shoulders. There is no demonstrated abnormality of the visualized soft tissue structures of the upper abdomen. RAD/Chest PA and Lateral IMPRESSION: Normal x-ray examination of the chest. Electronically Signed: Noe Ruth MD at 16:55 EDT , Service support ,
[2017-05-28 17:32] VITALS: BP 180/88; PULSE 55; RESP 16; O2SAT 94
--- NOTE | 2017-05-28 17:48 | HP.PCM_ITS ---
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 Yanes (4) Charcot's joint of left foot Status: Chronic (5) Vitamin D deficiency Status: Chronic (6) Peripheral vascular disease Status: Chronic (7) Hypertension Status: Chronic (8) Amputation of right foot with complication Status: Chronic (9) Type 2 diabetes mellitus with diabetic polyneuropathy Status: Chronic (10) Sleep apnea Status: Chronic Comment: CPAP 15 cm H20, 100% compliant (11) Neuropathy Status: Chronic Comment: secondary to diabetes (12) Morbid obesity Status: Chronic (13) Anemia Status: Chronic (14) Dyslipidemia Status: Chronic (15) Depression Status: Chronic History of Present Illness Date of Admission: 05/28/17 Chief Complaint: non healing left foot wound The patient is a 62 year old M with a hx of charcot foot BL, T2DM, right foot s/ p TMA, left foot with nonhealing wounds and osteomyelitis, PETRA, HTN, HLD, anxiety and depression, morbid obesity, who presents to the ER from the wound care center as his nonhealing left foot wound that has worsened over the past week. He has been following with infectious disease, Dr. Yanes, and Dr. Rodriguez for this wound since last admission. He was admitted in March for this wound which at the time grew MRSA and he was treated with IV vanc, clinda, and levaquin, transitioned to home IV vancomycin. He was also on home IV antibiotics in January and February after which the wound came back leading to that admission. It is noted on the discharge summary in March that an amputation was being considered however there were insurance issues. The patient states he was doing well until the IV vancomycin was completed 1 week ago. At that point he began having more erythema, foul odor, swelling, and much more pain in the left foot. He had a wound vac on that was being changed 3 x per week and he saw the wound nurse in the wound center to have this changed today, prompting him to be sent over. He states he has felt feverish for about 1 week off and on as well, however does not have a fever here in the ER. He also has noticed increased cough with sputum production and mild SOB for the last week. He has a negative CXR. Foot xray today shows osteomyelitis. 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 Venous insufficiency of both lower extremities (Chronic) S/P transmetatarsal amputation of foot (Chronic) 03/04/[address] 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) Hypertension (Chronic) Amputation of right foot with complication (Chronic) Type 2 diabetes mellitus with diabetic polyneuropathy (Chronic) Stasis dermatitis of both legs (Chronic) Sleep apnea (Chronic) CPAP 15 cm H20, 100% compliant Neuropathy (Chronic) secondary to diabetes Morbid obesity (Chronic) Anemia (Chronic) Dyslipidemia (Chronic) Left ventricular hypertrophy (Chronic) Chronic pain syndrome (Chronic) Depression (Chronic) Allergies cefepime Allergy (Verified 03/06/17 09:46) Hives lisinopril Allergy (Verified 03/06/17 09:46) cough sulfamethoxazole [From Octra] Allergy (Verified 03/06/17 09:46) turned red trimethoprim [From Septra] Allergy (Verified 03/06/17 09:46) turned red Home Medications: Ambulatory Orders Medication Instructions Recorded Insulin Detemir [Levemir FlexPen] 100 units SC BID 10/12/14 Citalopram [Celexa] 40 mg PO DAILY 11/15/14 Metformin HCl [Glucophage] 1,000 mg PO BIDCM 11/15/14 Losartan Potassium [Cozaar] 100 mg PO DAILY 06/05/16 morphine SR tablet [Ms Contin] 15 mg PO TID 10/16/16 buPROPion XL [Wellbutrin Xl] 150 mg PO DAILY 01/21/17 glimepiride 4 mg tablet 4 mg PO BID tab 01/31/17 Insulin Aspart [Novolog Flexpen] 40 units SC TIDCM 03/24/17 Simvastatin 40 mg PO QHS 03/24/17 Triamterene/Hydrochlorothiazid 1 each PO DAILY 03/24/17 [Triamterene-Hctz 37.5-25 mg Cp] Glucerna Shake 120 ml PO 4X/DAY #30 liquid 03/28/17 Gabapentin [Neurontin] 800 mg PO 4X/DAY 05/28/17 Naproxen [Naprosyn] 500 mg PO BID 05/28/17 Vancomycin HCl in 5 % Dextrose 1.75 gm IV BID 05/28/17 [Vancomycin 1.75 Gram/500Ml-D5w] Surgical History: cholecystectomy, - - Debridement left foot ulcer with versajet including necrotic muscle and widespread debridement plantar foot and incision and drainage left foot - 01/24/17. Bone biopsy calcaneal cuboid bone left foot and excisional debridement left plantar foot ulceration - 10/18/16. Right foot trans metatarsal amputation - 03/04/16. Partial 4th toe amputation right foot at PIP joint - 12/09/15. Excisional debridement including fascia left great toe - 04/03/15. Right hallux amputation at MTP joint - 12/29/14. Psychiatric History: Depression Lives: Roommate Smoking Status: Former smoker Tobacco Use: Non-smoker Alcohol: None Drugs: None - *Family History Maternal History Items: Cancer, Heart Disease Paternal History Items: Heart Disease Review of Systems Constitutional: Reports: Fever. Denies: Chills, Weight Change Eyes: Denies: Blurred vision, Vision Change HEENT: Reports: Sore Throat. Denies: Difficulty Hearing, Hard of Hearing, Head Aches, Nasal Congestion, Sinus Congestion, Sinus Drainage Cardiovascular: Reports: Edema - chronic. Denies: Chest Pain, Chest Tightness, Light Headedness, Palpitations Respiratory: Reports: Cough, Shortness of Breath, Sputum production. Denies: Shortness of breath at rest Gastrointestinal: Denies: Abdominal Pain, Nausea, Vomiting Genitourinary: Denies: Dysuria Musculoskeletal: Reports: - - s/p R TMA. Denies: Joint Pain, Joint Tenderness Skin: Reports: Wounds - LE wound.. Denies: Rash Neurological: Denies: Numbness, Tingling, Focal weakness Psychiatric: Denies: Anxiety, Depression, Homicidal Ideations, Suicidal Ideations Hematologic/ Lymphatic: Denies: Easy Bruising, Easy Bleeding VTE Information - Inpt Only VTE Present on Admission: No VTE Mechan Device Prophylaxis: SCD's VTE Pharm Prophylaxis ordered?: Yes Patient Problems: Active and Suspected Problems (Last Reviewed 03/06/17 @ 09:46 by Renuka Key) Osteomyelitis (Acute) - Physical Exam General: Alert, Oriented x3, Cooperative HEENT: Atraumatic, PERRLA, EOMI, Normocephalic Neck: Supple, No JVD, Negative Carotid Bruits Lungs: Clear to auscultation, Normal air movement Cardiovascular: Regular rate, No murmurs Abdomen: Bowel Sounds Present, Soft, Non Tender Extremities: No edema, Capillary Refill Less than 3 Seconds, - - the right TMA site appears well healed. Skin: No rashes, No breakdown Musculoskeletal: No Tenderness to Palpation of Joints or Extremities, - - large open left foot wound in plantar area seeming to extend into the bone. Warmth, erythema, tenderness. no mucopurulent discharge Neurological: Cranial nerves II-XII grossly intact Psych/Mental Status: Normal Affect, Appropriate, Alert and oriented to time, place, person, mood and affect Vital Signs Temp Pulse Resp BP Pulse Ox 98.5 F 91 18 158/72 H 98 05/28/17 14:21 05/28/17 14:21 05/28/17 14:21 05/28/17 14:21 05/28/17 14:21 Oxygen Delivery Method Room Air Weight: 147.418 kg Body Mass Index (BMI) 40.6 Finger Stick Blood Glucose 129 Laboratory Tests Past 24 Hrs 05/28/17 05/28/17 05/28/17 15:43 15:43 15:43 WBC 7.6 RBC 3.46 L Hgb 8.9 L Hct 28.7 L MCV 82.9 MCH 25.7 L MCHC 31.0 L RDW 15.3 H RDW Differential 45.9 H Plt Count 323 MPV 8.6 Immature Gran % (Auto) 0.100 Neut % (Auto) 68.2 Lymph % (Auto) 20.4 Mercer % (Auto) 7.5 Eos % (Auto) 3.5 Baso % (Auto) 0.3 Absolute Neuts (auto) 5.2 Absolute Lymphs (auto) 1.56 Total Counted Not Reportable Sodium 137 Potassium 4.2 Chloride 102 Carbon Dioxide 29.0 Anion Gap 6 BUN 21 H Creatinine 0.93 Estim Creat Clear Calc 99.69 Est GFR (MDRD) Af Amer 107 Est GFR (MDRD) Non-Af 88 BUN/Creatinine Ratio 22.6 H Glucose 168 H Lactic Acid 1.4 Calcium 9.2 Assessment/Plan Active and Suspected Problems (Last Reviewed 03/06/17 @ 09:46 by Renuka Key) Osteomyelitis (Acute) 1. Acute non healing diabetic left foot wound with acute osteomyelitis and charcot foot - consult to ID, Dr. Rodriguez, and Dr. Yanes who have been following him. Completed vanc about 1 week ago. Foot XRay with osteo. Wound became worse when vanc DC'd. Likely needs amputation. Start Vancomycin, and start zosyn until seen by ID. Get new wound cultures. Blood cultures drawn. No fever or WBC elevation, and neg lactate at this time. Wound nurse consult. 2. Charcot foot RLE s/p TMA. Appears well healed. 3. Chronic iron deficiency anemia - see iron studies from mar. Start PO iron. Will recheck iron panel + retic panel. 4. T2DM with peripheral neuropathy, obesity - hold orals. Continue insulin as ordered at home + SSI. Acute Care Physical Therapist eval. 5. HTN - continue losartan, hold diuretics. 6. Anx/Dep - home meds 7. PETRA - continue CPAP 8. HLD - statin 9. CPS - on home morphine PO. Will continue. DVT ppx: lovenox DC planning: PTOT evals. This patient was seen by Paul Ellsworth PA-C under the supervision of Doctor Johan. <Rangel Prado - Last Filed: 05/28/17 18:21> History of Present Illness Seen and examined. Patient has left foot chronic deep ulcer, bone visible, progressively increasing in size and depth since September 2016. Patient has low-grade fever, measured at wound center for last 3 weeks. Previous blood cultures reviewed and shows multiple occasions of MRSA. Agree with the above note that patient has moist cough for last 1 week. Patient is mainly bedbound. [] Past Medical History Allergies cefepime Allergy (Verified 03/06/17 09:46) Hives lisinopril Allergy (Verified 03/06/17 09:46) cough sulfamethoxazole [From ] Allergy (Verified 03/06/17 09:46) turned red trimethoprim [From Octra] Allergy (Verified 03/06/17 09:46) turned red Review of Systems Constitutional: Reports: Fever - Physical Exam Lungs: Clear to auscultation, Normal air movement Cardiovascular: Regular rate, Regular Rhythm, Normal S1, Normal S2, No murmurs Abdomen: Non Tender Musculoskeletal: - - large open left foot wound in plantar area seeming to extend into the bone. Warmth, erythema, tenderness. no mucopurulent discharge. Foot bone is visible and is tender on palpation with Q-tip. Vital Signs Temp Pulse Resp BP Pulse Ox 98.5 F 55 L 16 180/88 H 94 05/28/17 14:21 05/28/17 17:32 05/28/17 17:32 05/28/17 17:32 05/28/17 17:32 Oxygen Delivery Method Room Air Weight: 325 lb Body Mass Index (BMI) 40.6 Finger Stick Blood Glucose 129 Laboratory Tests Past 24 Hrs 05/28/17 05/28/17 05/28/17 15:43 15:43 15:43 WBC 7.6 RBC 3.46 L Hgb 8.9 L Hct 28.7 L MCV 82.9 MCH 25.7 L MCHC 31.0 L RDW 15.3 H RDW Differential 45.9 H Plt Count 323 MPV 8.6 Immature Gran % (Auto) 0.100 Neut % (Auto) 68.2 Lymph % (Auto) 20.4 Mercer % (Auto) 7.5 Eos % (Auto) 3.5 Baso % (Auto) 0.3 Absolute Neuts (auto) 5.2 Absolute Lymphs (auto) 1.56 Total Counted Not Reportable Sodium 137 Potassium 4.2 Chloride 102 Carbon Dioxide 29.0 Anion Gap 6 BUN 21 H Creatinine 0.93 Estim Creat Clear Calc 99.69 Est GFR (MDRD) Af Amer 107 Est GFR (MDRD) Non-Af 88 BUN/Creatinine Ratio 22.6 H Glucose 168 H Lactic Acid 1.4 Calcium 9.2 Assessment/Plan This patient was seen in conjunction with Paul AUSTIN. I have independently interviewed and examined the patient and reviewed pertinent history, examination findings, laboratory and plan of management. I have reviewed the note and agree with the documented findings with the few additional points. In brief, patient is admitted for acute on chronic deep nonhealing diabetic left foot ulcer with osteomyelitis with neuropathy and Charcot joint. Started on vancomycin and Zosyn. Chest x-ray reviewed and shows chronic bronchovascular markings but no obvious consolidation. Foot x-ray reviewed and shows large defect over plantar aspect of left heel. A1c tomorrow a.m. Patient also has chronic anemia most probably iron deficiency. Iron studies ordered as mentioned above. I have discussed my assessment with Paul AUSTIN and orders have been reviewed. Laboratory Results 05/28/17 15:43: WBC 7.6, RBC 3.46 L, Hgb 8.9 L, Hct 28.7 L, MCV 82.9, MCH 25.7 L , MCHC 31.0 L, RDW 15.3 H, RDW Differential 45.9 H, Plt Count 323, MPV 8.6, Immature Gran % (Auto) 0.100, Neut % (Auto) 68.2, Lymph % (Auto) 20.4, Mercer % ( Auto) 7.5, Eos % (Auto) 3.5, Baso % (Auto) 0.3, Absolute Neuts (auto) 5.2, Absolute Lymphs (auto) 1.56, Total Counted Not Reportable 05/28/17 15:43: Sodium 137, Potassium 4.2, Chloride 102, Carbon Dioxide 29.0, Anion Gap 6, BUN 21 H, Creatinine 0.93, Estim Creat Clear Calc 99.69, Est GFR ( MDRD) Af Amer 107, Est GFR (MDRD) Non-Af 88, BUN/Creatinine Ratio 22.6 H, Glucose 168 H, Calcium 9.2 05/28/17 15:43: Lactic Acid 1.4 Chest X-Ray 05/28/17 16:29 IMPRESSION: Normal x-ray examination of the chest. Electronically Signed: Noe Ruth MD at 16:55 EDT , Service support , Code Visit Inpatient E&M: 27796 Init Hosp L3
--- NOTE | 2017-05-28 17:49 | ED.VISSUMM ---
- ER Visit Summary Date of Service: 05/28/17 Chief Complaint: Infected ulcer left foot History of Present Illness: The patient is a [address] Rodriguez, Dr. Sanders, and Dr. Cordova. He has a long-standing ulcer on his left foot. He reports that he finished an 8 week course of vancomycin 1 week ago. He was seen in the wound clinic 2 days ago and had the wound debrided and a wound VAC was placed. States that he went back today and when they removed it the area was hot and very malodorous. Reports that he has had subjective fever, chills, and sweats. Also reports that he has had a cough for the past week this productive cream-colored sputum without blood. Physical Examination: Vitals: Stable. Afebrile. General: Well-nourished and well-developed. Head: Normocephalic atraumatic. Neck: Supple, no lymphadenopathy. No JVD. Nontender. Cardiovascular: Regular rate and rhythm. No murmurs. Respiratory: No respiratory distress. Clear to auscultation bilaterally. Abdominal: Soft, nontender, nondistended, normal bowel sounds. No guarding, rebound, or peritoneal signs. Back: Nontender. Extremities: Large deep ulcer on the plantar surface of his left foot that appears to extend to bone. There is also an ulcer on the medial side of his foot. There is erythema surrounding this. I do not appreciate an odor.. Skin: Normal color, no rash. Neurologic: Alert and oriented ?3. Cranial nerves II through XII are intact. Normal strength and sensation. Psych: Normal affect. Test Results: CBC is marked for an H&H of 8.9 28.7. Chem-7 is more for BUN of 21 glucose 168. Lactic acid is 1.4. Chest x-ray shows no acute disease. Foot x-ray shows: Huge plantar soft tissue defect that extends down to the bones of the mid foot. There is extensive and progressive destruction of the osseous structures since previous exam. Findings may represent combination of neuropathic joint and osteomyelitis. Emergency Department Course and Treatment: Patient had an IV placed. He was given a dose of vancomycin and Dilaudid IV. He is resting comfortably. Treatment Plan: The patient was discussed with Dr. Galvez. He will be admitted to the hospital for further evaluation and treatment. Disposition: Admitted in stable condition. Impression: 1. Infected ulcer left foot. 2. Type 2 diabetes mellitus. 3. Anemia. This note was generated with [employer] dictation software. It may contain incorrect words, spelling, and punctuation that were not noted in review of the chart prior to signing ED Disposition - Plan for ED Patient: Chief Complaint: Wound Referrals: Orion Cordova [Primary Care Provider] -
[2017-05-28] MEDS: HYDROmorphone 1 MG/ML Syringe IV (18:00)
[2017-05-28 18:02] VITALS: BMI 40.6
--- NOTE | 2017-05-28 18:11 | NURSING ---
321 LEFT FOOT DIABETIC DEEP ULCER WITH OSTEO DEMETRIUS
[2017-05-28 18:29] VITALS: BMI 41.9
[2017-05-28 18:39] LABS: Probe Check PASS; Staph aureus DNA By PCR POSITIVE (Negative)
[2017-05-28 18:43] LABS: M R Staph aureus DNA By PCR POSITIVE (Negative)
[2017-05-28 19:51] VITALS: O2SAT 94
[2017-05-28 19:56] VITALS: BP 150/64; PULSE 80; RESP 16; TEMP 36.8; O2SAT 93
--- NOTE | 2017-05-28 19:59 | PCM.RX.CS ---
Consult Pharmacy has been consulted to manage selected antiobiotic: Vancomycin Type of Consult: New start Suspected Infection: Osteomyelitis Prior Doses of Antibiotics Received/Current Regimen: VANCOMYCIN 2000MG IV X1 IN ED 05/28/17 @1659 Labs: Sodium 137 mmol/L (136-145) 05/28/17 15:43 Potassium 4.2 mmol/L (3.5-5.1) 05/28/17 15:43 Chloride 102 mmol/L (98-107) 05/28/17 15:43 Carbon Dioxide 29.0 mmol/L (21.0-32.0) 05/28/17 15:43 Anion Gap 6 (5-15) 05/28/17 15:43 BUN 21 mg/dL (7-18) H 05/28/17 15:43 Creatinine 0.93 mg/dL (0.70-1.30) 05/28/17 15:43 Est GFR (MDRD) Af Amer 107 mL/min (>60) 05/28/17 15:43 Est GFR (MDRD) Non-Af 88 mL/min (>60) 05/28/17 15:43 BUN/Creatinine Ratio 22.6 RATIO (10-20) H 05/28/17 15:43 Glucose 168 mg/dL (74-106) H 05/28/17 15:43 Weight used for dosin.1 kg Estimated Creatinine Clearance: 99ML/MIN Goal Trough: 15-20 mcg/mL Pharmacy Plan for Drug Dosing: Pharmacy Service will continue to monitor and adjust dosing as required. Pharmacy to manage vancomycin per consult for the treatment of suspected osteomyelitis. Per H/P, the patient had possible osteo on imaging upon admission. 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 The patient was on vancomycin 1750mg IV Q12hrs per [facility], as well as prior visits to [facility]. Based on previous trough values, the patient was stable on this regimen. Per H/P, the patient has not gotten vanco for about a week, then symptoms started. Will tentatively plan on starting the patient on the previous regimen, as this was adequate based on previous lab values. Will draw a trough prior to the 4th dose of scheduled regimen. PLAN/RECOMMENDATIONS 1. Vancomycin 1750mg IV Q12hrs to start 05/29/17 @0500 (12hrs from ED loading dose) 2. Trough scheduled 05/30/17 @1630 (Prior to 4th scheduled dose of vanco) 3. Pharmacy will continue to monitor and make changes as appropriate
[2017-05-28] MEDS: Glucerna Shake 120 ML LIQUID PO (21:52)
[2017-05-28] MEDS: Atorvastatin Calcium 20 MG Tablet PO (21:52)
[2017-05-28] MEDS: Gabapentin 400 MG Capsule 800 MG PO (21:52)
[2017-05-28] MEDS: morphine SR 15 MG Tablet PO (21:52)
[2017-05-28 21:56] LABS: Bedside Glucose 158 mg/dL (70-110)
[2017-05-28] MEDS: oxyCODONE 5 MG Tablet PO (22:19)
[2017-05-29 02:00] VITALS: BP 131/79; PULSE 78; RESP 18; TEMP 36.5; O2SAT 100
[2017-05-29 05:53] LABS: Anion Gap 7 (5-15); BUN 22 mg/dL (7-18); BUN/Creat Ratio 22.2 RATIO (10-20); Calcium,Total 8.5 mg/dL (8.5-10.1); Chloride 101 mmol/L (98-107); Creatinine, Serum 0.99 mg/dL (0.70-1.30); EST Glomerular Filtration Rate 82 mL/min (>60); Est Glom Filt Rate - Afr Amer 99 mL/min (>60); Estimated Creatinine Clearance 93.65 ml/min; Ferritin 21 ng/mL (26-388); Glucose 233 mg/dL (74-106); Iron 27 ug/dL (65-175); Iron Binding Capacity,Total 351 ug/dL (250-450); PERCENT IRON SATURATION 7.7 % (15.0-55.0); Potassium 4.7 mmol/L (3.5-5.1); Sodium Level 138 mmol/L (136-145)
[2017-05-29 06:19] LABS: Absolute Lymphocyte Count 1.21 X10^3/ul (0.83-4.51); Basophil# 0.02 X10^3/uL; Basophil% 0.3 % (0-1); Eosinophil# 0.23 X10^3/uL; Eosinophils% 3.8 % (0-5); Hematocrit 28.9 % (40-54); Hemoglobin 8.7 g/dl (13.0-16.5); Immature Platelet Fraction 1.2 % (1.0-7.9); Lymphocyte # 1.21 X10^3/ul (4.0); Lymphocyte % 20.2 % (19-41); Mean Corp Hgb Conc 30.1 g/gl (32-36); Mean Corpuscular Hgb 25.6 pg (27.0-32.0); Mean Platelet Vol. 8.5 fl (6.2-12.0); Monocyte# 0.54 X10^3/uL; Neutrophil # 3.96 X10^3/uL (2.7-7.7); Neutrophil % 66.2 % (47-70); Platelet Count 316 K/mm3 (150-450); RBC Distribution Width CV 15.3 % (11.6-14.6); RBC Distribution Width SD 47.4 fl (35.1-43.9); RET-HE 22.8 pg (30-35); Reticulocyte Count 2.54 % (0.5-1.5)
[2017-05-29 06:21] LABS: POSITIVE COUNT NO; POSITIVE DIFFERENTIAL NO; POSITIVE MORPHOLOGY NO
[2017-05-29] MEDS: morphine SR 15 MG Tablet PO ×3 (06:34→22:46)
[2017-05-29] MEDS: Enoxaparin 40 MG/0.4 ML Syringe SC (06:34)
[2017-05-29 07:51] LABS: Hemoglobin A1c 9.6 % (4.2-6.3)
[2017-05-29 08:43] VITALS: BP 167/71; PULSE 73; RESP 14; TEMP 36.5; O2SAT 97
[2017-05-29] MEDS: Ferrous Sulfate 325 MG Tablet PO ×2 (08:48→17:33)
[2017-05-29 08:56] LABS: Bedside Glucose 257 mg/dL (70-110)
--- NOTE | 2017-05-29 09:53 | PCM.PN.SRG ---
Subjective: HISTORY OF PRESENT ILLNESS Patient is known to me. [facility] have [facility]. He had operative debridement of these nonhealing ulcers on 03/25/17. He had just finished his IV Vancomycin last week and the PICC line was pulled. I started him on PO Doxycycline as a preventative antibiotic for the next several months. However at the [facility] yesterday, it was noted he was having increasing redness and swelling and pain in his left foot in the area of the nonhealing ulcers. His WBC was normal at 7.6 in the ED. He was admitted and started on IV Vancomycin and Zosyn. Xray was suspicious for osteomyelitis. PAST MEDICAL HISTORY Diabetes mellitus with neuropathy. Hypertension. Venous insufficiency. PETRA. Obesity. Hyperlipidemia. Charcot neuropathic osteoarthropathy. Rocker bottom left foot. Amputation status right foot. Anemia. Chronic pain syndrome. Depression. LVH. PVD. Vitamin D deficiency. Former smoker. MRSA. PAST SURGICAL HISTORY Right hallux amputation at MTP joint - 12/29/14. Excisional debridement including fascia left great toe - 04/03/15. Partial 4th toe amputation right foot at PIP joint - 12/09/15. Bone biopsy calcaneal cuboid bone left foot and excisional debridement left plantar foot ulceration - 10/18/16. Right foot trans metatarsal amputation - 03/04/16. Debridement left foot ulcer with versajet including necrotic muscle and widespread debridement plantar foot and incision and drainage left foot - 01/24/17. Surgical preparation left plantar foot with incision and drainage and excisional debridement nonhealing infected diabetic ulcer with fasciitis (30 cm2) and surgical preparation left medial foot with incision and drainage and excisional debridement nonhealing infected diabetic ulcer with fasciitis (24 cm2) - 03/25/17. MEDICATIONS Wellbutrin. Celexa. Neurontin. Glimepiride. Glucerna Shake. Novolog Flexpen. Levemir. Cozaar. Glucophage. MS Contin. Naprosyn. Simvastatin. Triamterene-HCTZ. Vancomycin - just finished last week. Doxycycline. ALLERGIES cefepime - Hives. lisinopril - cough. sulfa - turned red. Penicillins - unknown. FAMILY HISTORY Maternal - Cancer, Heart Disease. Paternal - Heart Disease. SOCIAL HISTORY Lives: Spouse/ Significant Other Smoking Status: Former smoker Tobacco Use: Non-smoker Alcohol: None Drugs: None REVIEW OF SYSTEMS Constitutional: Reports: Malaise. Denies: Fever, Fatigue Eyes: Denies: Cataracts HEENT: Denies: Nasal Congestion, Sore Throat Cardiovascular: Denies: Chest Pain Respiratory: Denies: Cough, Shortness of Breath Gastrointestinal: Denies: Constipation, Diarrhea, Nausea, Vomiting Genitourinary: Denies: Frequency, Hematuria Musculoskeletal: Reports: Foot Pain. Denies: Back Pain, Hand Pain, Neck Pain Skin: Reports: Wounds - nonhealing ulcer left plantar foot. Neurological: Denies: Headaches Psychiatric: Reports: Depression. Denies: Anxiety Endocrine: Reports: - - has diabetes melltus.. Denies: Polydipsia, Polyuria Hematologic/ Lymphatic: Reports: Anemia. Denies: Easy Bruising, Hx of blood clot - Physical Exam General: Alert, Oriented x3 HEENT: Atraumatic, PERRLA Neck: Supple Lungs: Clear to auscultation Cardiovascular: Regular rate, Regular Rhythm Abdomen: Soft, Non-Distended Extremities: No clubbing, No cyanosis, Diminished Peripheral Pulses, Edema - moderate edema in left foot in the area of the ulcers. Distal leg is mildly swollen. The redness is limited to the ulcerations. No redness seen in the distal leg., - - nonhealing ulcer left plantar foot with Charcot deformity. has right foot TMA. Skin: Ulcer/ Wound - nonhealing ulcers left plantar foot and left medial foot. Increased swelling and redness in the area of the nonhealing ulcers left foot. Exudate present in the ulcers. Bone is palpable in the plantar foot ulcer. No purulent drainage noted. Neurological: Cranial nerves II-XII grossly intact Psych/Mental Status: Normal Affect, Appropriate Vital Signs Temp Pulse Resp BP Pulse Ox 97.7 F L 73 14 167/71 H 97 05/29/17 08:43 05/29/17 08:43 05/29/17 08:43 05/29/17 08:43 05/29/17 08:43 Oxygen Flow Rate (L/min) 2 Oxygen Delivery Method Nasal Cannula Weight: 335 lb 5.169 oz Body Mass Index (BMI) 41.9 Intake and Output for Last 24 Hours 05/27/17 05/28/17 05/29/17 23:59 23:59 23:59 Intake Total 923 / 923 Output Total 1000 / 1000 Balance -77 / -77 Laboratory Tests Past 24 Hrs 05/29/17 05/29/17 05/29/17 05:05 05:05 05:05 WBC 6.0 RBC 3.40 L Hgb 8.7 L Hct 28.9 L MCV 85.0 MCH 25.6 L MCHC 30.1 L RDW 15.3 H RDW Differential 47.4 H Plt Count 316 MPV 8.5 Immature Gran % (Auto) 0.500 Neut % (Auto) 66.2 Lymph % (Auto) 20.2 [place] % (Auto) 9.0 Eos % (Auto) 3.8 Baso % (Auto) 0.3 Absolute Neuts (auto) 4.0 Absolute Lymphs (auto) 1.21 Total Counted Not Reportable Immature Plt Fraction 1.2 Retic Count 2.54 H Immature Retic Fraction 19.10 H Retic Hgb Equivalent 22.8 L Sodium 138 Potassium 4.7 Chloride 101 Carbon Dioxide 30.0 Anion Gap 7 BUN 22 H Creatinine 0.99 Estim Creat Clear Calc 93.65 Est GFR (MDRD) Af Amer 99 Est GFR (MDRD) Non-Af 82 BUN/Creatinine Ratio 22.2 H Glucose 233 H Hemoglobin A1c 9.6 H Calcium 8.5 Iron 27 L TIBC 351 Iron Saturation 7.7 L Ferritin 21 L POC Glucose 05/29/17 05/28/17 08:47 21:51 POC Glucose 257 H 158 H Medical Necessity - Tobacco Use Smoking Status: Former smoker Tobacco Use: Non-smoker Assessment/Plan ASSESSMENT 1. Nonhealing diabetic ulcer left plantar foot with infection. 2. Nonhealing diabetic ulcer left medial foot with infection. 3. Suspected osteomyelitis. 4. Diabetes mellitus. 5. MRSA. 6. Charcot foot neuropathic osteoarthropathy. 7. Former smoker. PLAN Patient was progressing slowly and his ulcers were stable when on the IV Vancomycin. It was stopped last week and the PICC line was pulled. I saw him at [facility] on 05/26/17, and started him on Doxycycline. He was admitted yesterday because of increasing redness and pain and swelling in his ulcers left foot. His WBC has been normal. His Hgb A1c was 9.6. Xray was suspicious for osteomyelitis. Will order an MRI today. Unless the foot dramatically improves with IV antibiotics, will need further operative debridement and will also biopsy the bone with a partial ostectomy to evaluate for osteomyelitis. Will resume the VAC tomorrow if surgery done. In the meantime, will begin Dakin's dressing changes twice a day to the left foot ulcers. Patient was informed of the risks and complications of the procedure including alternatives to surgery. These were discussed with him personally. He voices understanding and wishes to proceed. Patient understands that eventual amputation is probable. He recently stated he wants to discuss his surgical options for his Charcot deformity after which he will decide if he wants to proceed with that or if he wants to proceed with amputation. He had an appointment to discuss these surgical options next week with Dr. Yanes. Since he has been admitted, she was consulted to see him here for further recommendations.
[2017-05-29] MEDS: Glucerna Shake 120 ML LIQUID PO ×4 (10:31→22:46)
[2017-05-29] MEDS: oxyCODONE 5 MG Tablet PO ×2 (10:31→20:55)
[2017-05-29] MEDS: Losartan Potassium 100 MG Tablet PO (10:32)
[2017-05-29] MEDS: Citalopram 40 MG TABLET PO (10:32)
[2017-05-29] MEDS: Gabapentin 400 MG Capsule 800 MG PO ×4 (10:32→22:46)
[2017-05-29] MEDS: buPROPion (XL) 150 MG TABLET.XL PO (10:32)
--- NOTE | 2017-05-29 11:04 | MRI_ITS ---
STUDY: MRI LEFT HINDFOOT/ANKLE WITH AND WITHOUT CONTRAST REASON FOR EXAM: Male, 62 years old. Ulcers on the plantar and medial left heel. Previous debridement and bone biopsy of the cuboid TECHNIQUE: Standarized fat and water weighted pulse sequences were obtained in all 3 orthogonal plane pre and post intravenous administration of 10 ml of Gadavist contrast material. COMPARISON: MRI March 24, 2017. X-ray May 28, 2017. FINDINGS: There is a large soft tissue defect on the plantar aspect of the foot. There is skin thickening and subcutaneous edema. There is increased marrow edema with T2 signal hyperintensity of the adjacent inferior calcaneus and cuboid consistent with osteomyelitis, series 11 and 12 images 10/16 through .. There is increased deformity with destruction of the anterior talus and the navicular. There is mild edema of the talus and navicular. Normal posterior tibialis tendon. Normal flexor digitorum longus tendon. Normal flexor hallucis longus tendon. Normal peroneus longus and brevis tendons. Normal tibialis anterior tendon. Normal extensor hallucis longus tendon. Normal extensor digitorum longus tendons. Normal Achilles tendon and teno-osseous insertion. Soft tissue defect on the plantar aspect involves the plantar fascia. There is a plantar calcaneal spur, but without cancellous marrow edema. Atrophy of the intrinsic muscles of the foot. Normal distal tibiofibular syndesmotic ligamentous complex. Normal lateral ligamentous complex. Normal subtalar ligaments and sinus tarsi. Normal deltoid ligamentous complexes. Normal plantar calcaneonavicular (spring) ligament. Arthrosis with cystic change at the tibiotalar articulation. Cystic regions of the talar dome. Mild degenerative change of the subtalar articulations. Severe arthrosis of the talonavicular articulation. Severe arthrosis of the calcaneocuboid articulation. Severe arthrosis of the navicular-cuneiform articulations. MRI/Lower Ext No Joint W/WO Cont IMPRESSION: Increasing marrow edema with enhancement of the calcaneus and cuboid in region of large soft tissue defect consistent with osteomyelitis. Advanced arthrosis of the foot and ankle consistent with Charcot arthropathy. Electronically Signed: Morgan Gonzalez MD at 16:36 EDT , Service support ,
--- NOTE | 2017-05-29 11:04 | CASEMGMT ---
RN CM Face to Face with patient for initial transition planning/care coordination assessment. RN CM introduced self and role at [facility]. Patient sitting in chair, alert and oriented. Patient willing to participate in assessment and is able to answer all questions appropriately. Care providers, pharmacy, and demographics verified. See link attached. Patient wishes to discharge home but is willing to go to SNF if necessary. Patient states he has no further needs or concerns at this time. RN CM will continue to monitor coarse of treatment to assist with discharge disposition. CM to follow for discharge planning needs that may arise. Disposition Plan: TBD by coarse of treatment.
--- NOTE | 2017-05-29 11:16 | CON.PCM_ITS ---
Problem List (1) Osteomyelitis Status: Acute Reason for Consult: osteo Consulted by: Dr. Lara History of Present Illness: The patient is a 62 year old M with admission in March for L heel osteo and fasciitis, debridement 03/25/17, cx with MRSA, discharged on iv vanc for 8 week course. Had done well with abx, following for routine debridement and wound care. Vanc completed last week, and after had progressive redness, swelling, drainage, pain. Changed to po doxy, picc removed, but foot worsened over next few days, developed some chills. Seen in wound care, sent to hospital for admission. Had redness going up his leg, now improved on vanc/zosyn. Full ROS performed and neg except as noted above. - Medical History Past Medical History (Chronic Problems): Chronic Problems (Last Reviewed 03/06/17 @ 09:46 by Renuka Key) Non-pressure chronic ulcer of left heel and midfoot with muscle involvement without evidence of necrosis (Chronic) Infection of left foot (Chronic) Hypersomnia (Chronic) Ulcer of midfoot with necrosis of muscle (Chronic) Nocturnal hypoxemia (Chronic) Abscess of left foot (Chronic) Diabetic ulcer of left foot with fat layer exposed (Chronic) Non-pressure chronic ulcer of left heel and midfoot with fat layer exposed ( Chronic) 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 Venous insufficiency of both lower extremities (Chronic) S/P transmetatarsal amputation of foot (Chronic) 03/04/[address] 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) Hypertension (Chronic) Amputation of right foot with complication (Chronic) Type 2 diabetes mellitus with diabetic polyneuropathy (Chronic) Stasis dermatitis of both legs (Chronic) Sleep apnea (Chronic) CPAP 15 cm H20, 100% compliant Neuropathy (Chronic) secondary to diabetes Morbid obesity (Chronic) Anemia (Chronic) Dyslipidemia (Chronic) Left ventricular hypertrophy (Chronic) Chronic pain syndrome (Chronic) Depression (Chronic) Allergies/Adverse Reactions: Allergies cefepime Allergy (Verified 03/06/17 09:46) Hives lisinopril Allergy (Verified 03/06/17 09:46) cough sulfamethoxazole [From Septra] Allergy (Verified 03/06/17 09:46) turned red trimethoprim [From Septra] Allergy (Verified 03/06/17 09:46) turned red Home Medications: Ambulatory Orders Medication Instructions Recorded Insulin Detemir [Levemir FlexPen] 100 units SC BID 10/12/14 Citalopram [Celexa] 40 mg PO DAILY 11/15/14 Metformin HCl [Glucophage] 1,000 mg PO BIDCM 11/15/14 Losartan Potassium [Cozaar] 100 mg PO DAILY 06/05/16 morphine SR tablet [Ms Contin] 15 mg PO TID 10/16/16 buPROPion XL [Wellbutrin Xl] 150 mg PO DAILY 01/21/17 glimepiride 4 mg tablet 4 mg PO BID tab 01/31/17 Insulin Aspart [Novolog Flexpen] 40 units SC TIDCM 03/24/17 Simvastatin 40 mg PO QHS 03/24/17 Triamterene/Hydrochlorothiazid 1 each PO DAILY 03/24/17 [Triamterene-Hctz 37.5-25 mg Cp] Glucerna Shake 120 ml PO 4X/DAY #30 liquid 03/28/17 Gabapentin [Neurontin] 800 mg PO 4X/DAY 05/28/17 Naproxen [Naprosyn] 500 mg PO BID 05/28/17 Vancomycin HCl in 5 % Dextrose 1.75 gm IV BID 05/28/17 [Vancomycin 1.75 Gram/500Ml-D5w] - Social History SMOKING STATUS:: Former smoker Vital Signs Temp Pulse Resp BP Pulse Ox 97.7 F L 73 14 167/71 H 97 05/29/17 08:43 05/29/17 08:43 05/29/17 08:43 05/29/17 08:43 05/29/17 08:43 Oxygen Flow Rate (L/min) 2 Oxygen Delivery Method Nasal Cannula Weight: 152.1 kg Body Mass Index (BMI) 41.9 Laboratory Tests Past 24 Hrs 05/29/17 05/29/17 05/29/17 05:05 05:05 05:05 WBC 6.0 RBC 3.40 L Hgb 8.7 L Hct 28.9 L MCV 85.0 MCH 25.6 L MCHC 30.1 L RDW 15.3 H RDW Differential 47.4 H Plt Count 316 MPV 8.5 Immature Gran % (Auto) 0.500 Neut % (Auto) 66.2 Lymph % (Auto) 20.2 [place] % (Auto) 9.0 Eos % (Auto) 3.8 Baso % (Auto) 0.3 Absolute Neuts (auto) 4.0 Absolute Lymphs (auto) 1.21 Total Counted Not Reportable Immature Plt Fraction 1.2 Retic Count 2.54 H Immature Retic Fraction 19.10 H Retic Hgb Equivalent 22.8 L Sodium 138 Potassium 4.7 Chloride 101 Carbon Dioxide 30.0 Anion Gap 7 BUN 22 H Creatinine 0.99 Estim Creat Clear Calc 93.65 Est GFR (MDRD) Af Amer 99 Est GFR (MDRD) Non-Af 82 BUN/Creatinine Ratio 22.2 H Glucose 233 H Hemoglobin A1c 9.6 H Calcium 8.5 Iron 27 L TIBC 351 Iron Saturation 7.7 L Ferritin 21 L - Other Studies Radiology: [] reviewed Other Studies: [] Route of nutrition/ use of supplements: [] Nutritional Intake: [] IV Site: [] Tam Catheter: [] - Physical Exam General: Alert, Oriented x3, Cooperative, No apparent distress HEENT: Atraumatic, PERRLA, EOMI Neck: Supple, No Nodes Lungs: Clear to auscultation, Normal air movement Cardiovascular: Regular rate, Regular Rhythm Abdomen: Bowel Sounds Present, Soft, Non Tender, Non-Distended Extremities: Edema Skin: Ulcer/ Wound - L heel, wrapped IV Site: Peripheral, without redness Musculoskeletal: No Tenderness to Palpation of Joints or Extremities Neurological: Cranial nerves II-XII grossly intact - Assessment/Plan Antibiotics: [] Assessment/Plan: [] L heel MRSA osteo - xray showed worsened bone in the area. Surgery and podiatry consulted. Cont vanc/zosyn. May end up needing amputation. Will follow, thank you.
[2017-05-29 11:17] VITALS: O2SAT 95
[2017-05-29 12:05] LABS: Bedside Glucose 184 mg/dL (70-110)
[2017-05-29 12:38] VITALS: BP 155/74; PULSE 81; RESP 16; TEMP 36.8; O2SAT 100
[2017-05-29] MEDS: HYDROmorphone 1 MG/ML Syringe IV (13:47)
--- NOTE | 2017-05-29 14:15 | NURSING ---
wound photo: left medial foot
--- NOTE | 2017-05-29 14:16 | NURSING ---
wound photo: left plantar foot
[2017-05-29 14:28] VITALS: BP 134/63; PULSE 81; RESP 16; TEMP 36.6; O2SAT 100
[2017-05-29] MEDS: 0.9% NaCl Peripheral Flush Adult/Peds IV (16:12)
[2017-05-29 17:40] LABS: Bedside Glucose 165 mg/dL (70-110)
--- NOTE | 2017-05-29 18:10 | PN_ITS ---
Subjective: This 62 year old diabetic male was consulted to Dr. Yanes to discuss the patient's potential for charcot surgery of the left foot/ankle. I came to see the patient as it is my call week, but discussed the patient and his situation with Dr. Yanes. Patient is under the care of Dr. Rodriguez currently for an extensive ulcer to the plantar left foot. The patient has been on IV antibiotics and her recently finished a course and his foot/leg became infected again. The patient says he felt a deep pain this time in his foot. He currently denies any feelings of nausea, vomiting, fever, or chills. - Physical Exam General: Alert, Oriented x3, Cooperative Skin: Ulcer/ Wound - Since the patient is under the direction of Dr. Rodriguez and the patient had recently had a dressing change, I did not take the patients dressing down to his left foot. The patient did show me a picture on his phone of a quite extensive left plantar foot ulcer with surrounding cellulitis as well as a medial foot/ankle ulcer. Psych/Mental Status: Normal Affect, Appropriate Vital Signs Temp Pulse Resp BP Pulse Ox 98 F 81 16 134/63 H 100 05/29/17 14:28 05/29/17 14:28 05/29/17 14:28 05/29/17 14:28 05/29/17 14:28 Oxygen Flow Rate (L/min) 2 Oxygen Delivery Method Nasal Cannula Weight: 152.1 kg Body Mass Index (BMI) 41.9 Intake and Output for Last 24 Hours 05/27/17 05/28/17 05/29/17 23:59 23:59 23:59 Intake Total 1541 / 1541 Output Total 1450 / 1450 Balance 91 / 91 Laboratory Tests Past 24 Hrs 05/29/17 05/29/17 05/29/17 05:05 05:05 05:05 WBC 6.0 RBC 3.40 L Hgb 8.7 L Hct 28.9 L MCV 85.0 MCH 25.6 L MCHC 30.1 L RDW 15.3 H RDW Differential 47.4 H Plt Count 316 MPV 8.5 Immature Gran % (Auto) 0.500 Neut % (Auto) 66.2 Lymph % (Auto) 20.2 [place] % (Auto) 9.0 Eos % (Auto) 3.8 Baso % (Auto) 0.3 Absolute Neuts (auto) 4.0 Absolute Lymphs (auto) 1.21 Total Counted Not Reportable Immature Plt Fraction 1.2 Retic Count 2.54 H Immature Retic Fraction 19.10 H Retic Hgb Equivalent 22.8 L Sodium 138 Potassium 4.7 Chloride 101 Carbon Dioxide 30.0 Anion Gap 7 BUN 22 H Creatinine 0.99 Estim Creat Clear Calc 93.65 Est GFR (MDRD) Af Amer 99 Est GFR (MDRD) Non-Af 82 BUN/Creatinine Ratio 22.2 H Glucose 233 H Hemoglobin A1c 9.6 H Calcium 8.5 Iron 27 L TIBC 351 Iron Saturation 7.7 L Ferritin 21 L POC Glucose 05/29/17 05/29/17 05/29/17 16:32 11:51 08:47 POC Glucose 165 H 184 H 257 H 05/28/17 21:51 POC Glucose 158 H Medical Necessity - Tobacco Use Smoking Status: Former smoker Tobacco Use: Non-smoker Assessment/Plan Charcot foot left Osteomyelitis cellulitis DMII Patient was seen bedside this evening to discuss his current condition and case. Dr. Rodriguez had consulted Dr. Yanes since the patient had mentioned a possible charcot surgery he and Dr. Yanes had talked about a possibility of in the past. His dressing was not taken down today, as he is under the direction of Dr. Rodriguez, however, the patient did show me a picture of his ulcers and I also saw the pictures taken by the wound nurse. The patient is currently having dakins wet to dry dressing per Dr. Rodriguez. X rays as well as an MRI were taken of the foot. The results of both were read as osseous destruction and signs consistent with both osteomyelitis as well as charcot. The MRI showed increasing marrow edema with enhancement of the calcaneus and cuboid in the region of the ulcer consistent with osteomyelitis. The patient is currently on IV antibiotics and infectious disease is also on the case. Dr. Rodriguez's note states that unless the foot dramatically improves with IV antibiotics, that Dr. Rodriguez will take the patient for further operative debridement and will also biopsy the bone with a partial ostectomy to evaluate for osteomyelitis. I discussed with the patient this evening that there is a significant possibility that the patient could end up losing his lower leg and he understands this. I discussed in length, the charcot reconstruction procedures with the patient after speaking with Dr. Yanes as Dr. Rodriguez recommended. In the patient's current state, this is not an option for this patient. At this time it is hard to say what the success rate of the reconstruction procedure would be down the road should he heal from his current situation. I also discussed with the patient, that should he heal up currently, and down the road he decides to opt for a reconstruction procedure, there is still a chance that the surgery could break down and the patient could get another infection and end up ultimately with a below knee amputation. The patient says he is aware of this and was just wondering what his options were. I answered all of the patient's questions to the best of my ability. I agree with the patient's current treatment plan and his planned surgical debridement and bone biopsy by Dr. Rodriguez. Since Dr. Rodriguez is currently treating the patient , and we were consulted to discuss charcot recon procedure with the patient, podiatry can just follow on an as needed basis at this point. Please contact if there are any other questions or concerns.
--- NOTE | 2017-05-29 19:23 | PCM.PROGNOTE ---
Subjective: He feels fair. He is afebrile, no chills, WBC normal. - Physical Exam General: Alert, Oriented x3, Cooperative, Well developed, Well nourished HEENT: Atraumatic, PERRLA Oral: Moist Mucosa, No Gingival or Mucosal Lesions/ Ulcerations Neck: Supple, No JVD, Negative Carotid Bruits Lungs: Clear to auscultation, Normal air movement, No rhonchi, No wheeze, No rales Cardiovascular: Regular rate, Regular Rhythm, Normal S1, Normal S2, No murmurs, No Ectopic Activity Abdomen: Bowel Sounds Present, Soft, Non Tender, Non-Distended, Obese Extremities: No clubbing, No cyanosis, No edema, - - Left foot dressed, clan and dry. H/o right metatarsal amputation. Skin: No rashes, No breakdown Lymphatic: No Cervical, Supraclavicular, or Inguinal Adenopathy Neurological: Cranial nerves II-XII grossly intact, Neuro grossly intact Psych/Mental Status: Normal Affect Vital Signs Temp Pulse Resp BP Pulse Ox 98 F 81 16 134/63 H 100 05/29/17 14:28 05/29/17 14:28 05/29/17 14:28 05/29/17 14:28 05/29/17 14:28 Oxygen Flow Rate (L/min) 2 Oxygen Delivery Method Nasal Cannula Weight: 335 lb 5.169 oz Body Mass Index (BMI) 41.9 Intake and Output for Last 24 Hours 05/27/17 05/28/17 05/29/17 23:59 23:59 23:59 Intake Total 2002 Output Total 1450 / 1450 Balance 553 / 553 Laboratory Tests Past 24 Hrs 05/29/17 05/29/17 05/29/17 05:05 05:05 05:05 WBC 6.0 RBC 3.40 L Hgb 8.7 L Hct 28.9 L MCV 85.0 MCH 25.6 L MCHC 30.1 L RDW 15.3 H RDW Differential 47.4 H Plt Count 316 MPV 8.5 Immature Gran % (Auto) 0.500 Neut % (Auto) 66.2 Lymph % (Auto) 20.2 Sac % (Auto) 9.0 Eos % (Auto) 3.8 Baso % (Auto) 0.3 Absolute Neuts (auto) 4.0 Absolute Lymphs (auto) 1.21 Total Counted Not Reportable Immature Plt Fraction 1.2 Retic Count 2.54 H Immature Retic Fraction 19.10 H Retic Hgb Equivalent 22.8 L Sodium 138 Potassium 4.7 Chloride 101 Carbon Dioxide 30.0 Anion Gap 7 BUN 22 H Creatinine 0.99 Estim Creat Clear Calc 93.65 Est GFR (MDRD) Af Amer 99 Est GFR (MDRD) Non-Af 82 BUN/Creatinine Ratio 22.2 H Glucose 233 H Hemoglobin A1c 9.6 H Calcium 8.5 Iron 27 L TIBC 351 Iron Saturation 7.7 L Ferritin 21 L POC Glucose 05/29/17 05/29/17 05/29/17 16:32 11:51 08:47 POC Glucose 165 H 184 H 257 H 05/28/17 21:51 POC Glucose 158 H Diagnostic Data Foot X-Ray 05/28/17 15:29 Chest X-Ray 05/28/17 16:29 IMPRESSION: Normal x-ray examination of the chest. Electronically Signed: Noe Ruth MD at 16:55 EDT , Service support , Lower Extremity MRI 05/29/17 11:04 IMPRESSION: Increasing marrow edema with enhancement of the calcaneus and cuboid in region of large soft tissue defect consistent with osteomyelitis. Advanced arthrosis of the foot and ankle consistent with Charcot arthropathy. Electronically Signed: Morgan Gonzalez MD at 16:36 EDT , Service support , Medical Necessity - Tobacco Use Smoking Status: Former smoker Tobacco Use: Non-smoker Assessment/Plan The patient is a 62 year old M with a hx of charcot foot BL, T2DM, right foot s/p TMA, left foot with nonhealing wounds and osteomyelitis, PETRA, HTN, HLD, anxiety and depression, morbid obesity, who presents to the ER from the wound care center as his nonhealing left foot wound that has worsened over the past week. He has been following with infectious disease, Dr. Yanes, and Dr. Rodriguez for this wound since last admission. He was admitted in March for this wound which at the time grew MRSA and he was treated with IV vanc, clinda, and levaquin, transitioned to home IV vancomycin. He was also on home IV antibiotics in January and February after which the wound came back leading to that admission. It is noted on the discharge summary in March that an amputation was being considered however there were insurance issues. The patient states he was doing well until the IV vancomycin was completed 1 week ago. At that point he began having more erythema, foul odor, swelling, and much more pain in the left foot. He had a wound vac on that was being changed 3 x per week and he saw the wound nurse in the wound center to have this changed today, prompting him to be sent over. He states he has felt feverish for about 1 week off and on as well, however does not have a fever here in the ER. He also has noticed increased cough with sputum production and mild SOB for the last week. He has a negative CXR. Foot xray today shows osteomyelitis. 1. Non-healing diabetic left foot wound with chronic osteomyelitis with underling Charcot foot - consult to ID, Dr. Rodriguez, and Dr. Yanes who have been following him. Completed vanc about 1 week ago. Foot XRay with osteo. Wound became worse when vancomycin DC'd. MRI is also suggestive of osteomyelitis. He may be heading to below knee amputation with persisting osteomyelitis. ID, plastic surgery, and podiatry consultation appreciated. Continue vancomycin and Zosyn for now, as he had previous MRSA and wound culture is showing gram negative jon. He may benefit from bone biopsy / surgical debridement. 2. Charcot foot RLE s/p TMA. Appears well healed. 3. Chronic iron deficiency anemia - see iron studies from [facility]. Start PO iron. Will recheck iron panel + retic panel. 4. T2DM with peripheral neuropathy, obesity - hold orals. Continue insulin as ordered at home + SSI. Vegetable Buncher eval. 5. HTN - continue losartan, hold diuretics. 6. Anx/Dep - home meds 7. PETRA - continue CPAP 8. HLD - statin 9. CPS - on home morphine PO. Will continue. DVT ppx: lovenox DC planning: PTOT evals. Code Visit Inpatient E&M: 18184 Subs Hosp L2
--- NOTE | 2017-05-29 19:29 | PN_ITS ---
Subjective: He feels fair. He is afebrile, no chills, WBC normal. - Physical Exam General: Alert, Oriented x3, Cooperative, Well developed, Well nourished HEENT: Atraumatic, PERRLA Oral: Moist Mucosa, No Gingival or Mucosal Lesions/ Ulcerations Neck: Supple, No JVD, Negative Carotid Bruits Lungs: Clear to auscultation, Normal air movement, No rhonchi, No wheeze, No rales Cardiovascular: Regular rate, Regular Rhythm, Normal S1, Normal S2, No murmurs, No Ectopic Activity Abdomen: Bowel Sounds Present, Soft, Non Tender, Non-Distended, Obese Extremities: No clubbing, No cyanosis, No edema, - - Left foot dressed, clan and dry. H/o right metatarsal amputation. Skin: No rashes, No breakdown Lymphatic: No Cervical, Supraclavicular, or Inguinal Adenopathy Neurological: Cranial nerves II-XII grossly intact, Neuro grossly intact Psych/Mental Status: Normal Affect Vital Signs Temp Pulse Resp BP Pulse Ox 98 F 81 16 134/63 H 100 05/29/17 14:28 05/29/17 14:28 05/29/17 14:28 05/29/17 14:28 05/29/17 14:28 Oxygen Flow Rate (L/min) 2 Oxygen Delivery Method Nasal Cannula Weight: 335 lb 5.169 oz Body Mass Index (BMI) 41.9 Intake and Output for Last 24 Hours 05/27/17 05/28/17 05/29/17 23:59 23:59 23:59 Intake Total 2002 Output Total 1450 / 1450 Balance 553 / 553 Laboratory Tests Past 24 Hrs 05/29/17 05/29/17 05/29/17 05:05 05:05 05:05 WBC 6.0 RBC 3.40 L Hgb 8.7 L Hct 28.9 L MCV 85.0 MCH 25.6 L MCHC 30.1 L RDW 15.3 H RDW Differential 47.4 H Plt Count 316 MPV 8.5 Immature Gran % (Auto) 0.500 Neut % (Auto) 66.2 Lymph % (Auto) 20.2 [place] % (Auto) 9.0 Eos % (Auto) 3.8 Baso % (Auto) 0.3 Absolute Neuts (auto) 4.0 Absolute Lymphs (auto) 1.21 Total Counted Not Reportable Immature Plt Fraction 1.2 Retic Count 2.54 H Immature Retic Fraction 19.10 H Retic Hgb Equivalent 22.8 L Sodium 138 Potassium 4.7 Chloride 101 Carbon Dioxide 30.0 Anion Gap 7 BUN 22 H Creatinine 0.99 Estim Creat Clear Calc 93.65 Est GFR (MDRD) Af Amer 99 Est GFR (MDRD) Non-Af 82 BUN/Creatinine Ratio 22.2 H Glucose 233 H Hemoglobin A1c 9.6 H Calcium 8.5 Iron 27 L TIBC 351 Iron Saturation 7.7 L Ferritin 21 L POC Glucose 05/29/17 05/29/17 05/29/17 16:32 11:51 08:47 POC Glucose 165 H 184 H 257 H 05/28/17 21:51 POC Glucose 158 H Diagnostic Data Foot X-Ray 05/28/17 15:29 Chest X-Ray 05/28/17 16:29 IMPRESSION: Normal x-ray examination of the chest. Electronically Signed: Noe Ruth MD at 16:55 EDT , Service support , Lower Extremity MRI 05/29/17 11:04 IMPRESSION: Increasing marrow edema with enhancement of the calcaneus and cuboid in region of large soft tissue defect consistent with osteomyelitis. Advanced arthrosis of the foot and ankle consistent with Charcot arthropathy. Electronically Signed: Morgan Gonzalez MD at 16:36 EDT , Service support , Medical Necessity - Tobacco Use Smoking Status: Former smoker Tobacco Use: Non-smoker Assessment/Plan The patient is a 62 year old M with a hx of charcot foot BL, T2DM, right foot s/ p TMA, left foot with nonhealing wounds and osteomyelitis, PETRA, HTN, HLD, anxiety and depression, morbid obesity, who presents to the ER from the wound care center as his nonhealing left foot wound that has worsened over the past week. He has been following with infectious disease, Dr. Yanes, and Dr. Rodriguez for this wound since last admission. He was admitted in March for this wound which at the time grew MRSA and he was treated with IV vanc, clinda, and levaquin, transitioned to home IV vancomycin. He was also on home IV antibiotics in January and February after which the wound came back leading to that admission. It is noted on the discharge summary in March that an amputation was being considered however there were insurance issues. The patient states he was doing well until the IV vancomycin was completed 1 week ago. At that point he began having more erythema, foul odor, swelling, and much more pain in the left foot. He had a wound vac on that was being changed 3 x per week and he saw the wound nurse in the wound center to have this changed today, prompting him to be sent over. He states he has felt feverish for about 1 week off and on as well, however does not have a fever here in the ER. He also has noticed increased cough with sputum production and mild SOB for the last week. He has a negative CXR. Foot xray today shows osteomyelitis. 1. Non-healing diabetic left foot wound with chronic osteomyelitis with underling Charcot foot - consult to ID, Dr. Rodriugez, and Dr. Yanes who have been following him. Completed vanc about 1 week ago. Foot XRay with osteo. Wound became worse when vancomycin DC'd. MRI is also suggestive of osteomyelitis. He may be heading to below knee amputation with persisting osteomyelitis. ID, plastic surgery, and podiatry consultation appreciated. Continue vancomycin and Zosyn for now, as he had previous MRSA and wound culture is showing gram negative jon. He may benefit from bone biopsy / surgical debridement. 2. Charcot foot RLE s/p TMA. Appears well healed. 3. Chronic iron deficiency anemia - see iron studies from [facility]. Start PO iron. Will recheck iron panel + retic panel. 4. T2DM with peripheral neuropathy, obesity - hold orals. Continue insulin as ordered at home + SSI. Arcade Game Technician eval. 5. HTN - continue losartan, hold diuretics. 6. Anx/Dep - home meds 7. PETRA - continue CPAP 8. HLD - statin 9. CPS - on home morphine PO. Will continue. DVT ppx: lovenox DC planning: PTOT evals. Code Visit Inpatient E&M: 66828 Subs Hosp L2
[2017-05-29] MEDS: Atorvastatin Calcium 20 MG Tablet PO (22:46)
[2017-05-29 22:56] VITALS: BP 170/79; PULSE 78; RESP 14; TEMP 36.5; O2SAT 100
[2017-05-29 23:20] LABS: Bedside Glucose 195 mg/dL (70-110)
[2017-05-30] VITALS (10 sets, daily range): BP systolic 133–185; BP diastolic 56–80; PULSE 73–84; RESP 16–20; TEMP 36.3–36.9; O2SAT 91–100; BMI 42.3
--- NOTE | 2017-05-30 05:00 | EKG12_ITS ---
Test Reason : AM EKG Blood Pressure : / mmHG Vent. Rate : 082 BPM Atrial Rate : 082 BPM P-R Int : 164 ms QRS Dur : 088 ms QT Int : 390 ms P-R-T Axes : 048 -17 067 degrees QTc Int : 455 ms Sinus rhythm with Premature atrial complexes Otherwise normal ECG Confirmed by ANITA MADSEN, NATALY ([id number]), purchasing expeditor MALGORZATA ZHU ([id number]) on 06/10/2017 3:51:09 PM Referred By: NAHID Confirmed By:NATALY HOWARD MD
[2017-05-30] MEDS: morphine SR 15 MG Tablet PO ×3 (05:16→21:39)
[2017-05-30 07:29] LABS: Erythrocyte Sedimentation Rate 53 mm/hr (0-20)
[2017-05-30 07:30] LABS: Anion Gap 6 (5-15); BUN 22 mg/dL (7-18); BUN/Creat Ratio 22.8 RATIO (10-20); Calcium,Total 8.8 mg/dL (8.5-10.1); Chloride 102 mmol/L (98-107); Creatinine, Serum 0.97 mg/dL (0.70-1.30); EST Glomerular Filtration Rate 84 mL/min (>60); Est Glom Filt Rate - Afr Amer 102 mL/min (>60); Estimated Creatinine Clearance 95.58 ml/min; Glucose 216 mg/dL (74-106); Potassium 4.6 mmol/L (3.5-5.1); Sodium Level 138 mmol/L (136-145)
[2017-05-30 07:36] LABS: Absolute Lymphocyte Count 1.11 X10^3/ul (0.83-4.51); Absolute Neutrophil Count 3.9 X10^3/uL (2.0-7.7); Basophil# 0.02 X10^3/uL; Basophil% 0.3 % (0-1); Eosinophil# 0.26 X10^3/uL; Eosinophils% 4.5 % (0-5); Hemoglobin 8.5 g/dl (13.0-16.5); Lymphocyte # 1.11 X10^3/ul (4.0); Lymphocyte % 19.3 % (19-41); Mean Corp Hgb Conc 30.4 g/gl (32-36); Mean Corpuscular Hgb 25.8 pg (27.0-32.0); Mean Corpuscular Volume 84.8 fL (80-94); Mean Platelet Vol. 8.6 fl (6.2-12.0); Monocyte# 0.39 X10^3/uL; Monocyte% 6.8 % (0-10); Neutrophil # 3.94 X10^3/uL (2.7-7.7); Neutrophil % 68.8 % (47-70); POSITIVE COUNT NO; POSITIVE DIFFERENTIAL NO; POSITIVE MORPHOLOGY NO; Platelet Count 322 K/mm3 (150-450); RBC Distribution Width CV 15.1 % (11.6-14.6); White Blood Count 5.7 K/mm3 (4.4-11.0)
[2017-05-30 07:42] LABS: Prealbumin 18.4 mg/dL (20.0-40.0)
--- NOTE | 2017-05-30 08:21 | NURSING ---
Dressing is D&I to the left foot. pt heading down to surgery around 9am for debridement of the foot wounds per Dr Rodriguez.
[2017-05-30 08:56] LABS: Bedside Glucose 212 mg/dL (70-110)
--- NOTE | 2017-05-30 10:15 | BON_PTH ---
PATIENT: BASIL MARRERO LOC: [facility] U#:[id number] AGE/SX: 62/M ROOM: OR321 RE05/28/[address]: Dr. Josselin May MD : [id number] BED: 1 DIS: 06/04/2017 SPEC #: [id number] RECD: 05/30/17 13:47 STATUS: DENA REQ #: [id number] MICAELA: 05/30/17 10:[address]: Lucho Rodriguez DEPT: SURGICAL PATHOLOGY RECD BY: Chuy Belcher ENTERED: 05/30/17 13:48 SP TYPE: Bone OTHR DR: Dr. Cynthia Yanes, DPM MD Dr. Rangel Copeland MD Dr. Paul Fracasso, DO Dr. Robert Leininger, MD Yoichi Imamura, MD Tissues: A - Bone of foot, NOS B - Soft tissues, NOS Procedures: Decalcification bone/plaque Special Stain Group I Surgery Specimen Level IV AFB Stain (control) GMS Stain (control) Comments: @ Ordering doctor for DEC edited from to @ by BERE at 06/02/17919 @ Ordering doctor for SUIII edited from to DR.JSLABY Babcock by BERE at 06/02/17919 @ Ordering doctor for SUIV edited from to DR.JSLABY Babcock by BERE at 06/02/17 09 @ Submitting doctor edited from to DR.JSLABY Babcock by BERE at 06/02/1720 HEADER OPERATION: Surgical preparation left plantar foot PRE-OP DIAGNOSIS: Osteomyelitis, nonhealing wound left foot TISSUE SUBMITTED: A ? Bone left heel, B ? Soft tissue left heel MICROSCOPIC DIAGNOSIS A. Left heel bone, biopsy: Acute osteomyelitis. B. Soft tissue of left heel, biopsy: Skin and soft tissue with ulceration, associated acute and chronic inflammation and granulation. Negative for acid-fast bacilli and fungal organisms. AM:negra 06/04/17 COMMENT B. AFB and GMS stains with matched controls are negative for micro-organisms. MICROSCOPIC DESCRIPTION Slides are reviewed. GROSS DESCRIPTION A - Received in fixative is one container labeled with the patient's name and designated bone left heel. The specimen consists of multiple pieces of bone that in aggregate measure 1.5 x 1.5 x 0.3 cm. The entire specimen is submitted in one cassette after decalcification. B - Received in fixative is one container labeled with the patient's name and designated soft tissue left heel. The specimen consists of a ring-shaped piece of harris-white skin measuring 7 x 6 cm and up to 2.5 cm in thickness. Also present in the container are two detached pieces of soft tissue measuring in aggregate 3 x 2.5 x 1 cm. The skin surface shows an extensive area of ulceration. Drawstring Knotter sections are submitted in two cassettes. / SJ:negra 05/30/17 TC:2 CPT: 12764, 92442 x2, 41222 x2
--- NOTE | 2017-05-30 11:05 | OP.PN_ITS ---
Immediate Post-Op Note Date of Procedure: 05/30/17 Primary Surgeon/Physician: Lucho Rodriguez quality system manager: None Pre-Operative Diagnosis: 1. Nonhealing diabetic ulcer left plantar foot with infection. 2. Nonhealing diabetic ulcer left medial foot with infection. 3. Osteomyelitis. 4. Diabetes mellitus. 5. MRSA. 6. Charcot foot neuropathic osteoarthropathy. 7. Former smoker. Post-Operative Diagnosis: Same. Surgery/Procedure Performed:: 1. Surgical preparation left plantar foot with incision and drainage and excisional debridement nonhealing MRSA diabetic ulcer (42 cm2). 2. Partial ostectomy cuboid bone for osteomyelitis. Description of Surgical Findings:: Patient is known to me. I have been seeing him at the Wound Center. He had operative debridement of these nonhealing ulcers on 03/25/17. He had just finished his IV Vancomycin last week and the PICC line was pulled. I started him on PO Doxycycline as a preventative antibiotic for the next several months. However at the Wound Center yesterday, it was noted he was having increasing redness and swelling and pain in his left foot in the area of the nonhealing ulcers. His WBC was normal at 7.6 in the ED. He was admitted and started on IV Vancomycin and Zosyn. Xray was suspicious for osteomyelitis. MRI was also suspicious for osteomyelitis. Today the patient underwent surgical preparation left plantar foot with incision and drainage and excisional debridement nonhealing MRSA diabetic ulcer (42 cm2) and partial ostectomy cuboid bone for osteomyelitis. Size of defect left plantar foot - 7 x 6 x 2.5 cm. Estimated Blood Loss: 250 ml. Specimen's removed: 1. Nonhealing MRSA diabetic ulcer left plantar foot soft tissue to Pathology and Microbiology. 2. Nonhealing MRSA diabetic ulcer left plantar foot cuboid bone to Pathology and Microbiology. Drains: None. Type of Anesthesia:: General - Admit VTE Documentation VTE Present on Admission: No VTE Mechan Device Prophylaxis: SCD's VTE Pharm Prophylaxis ordered?: Yes
[2017-05-30 11:26] LABS: Bedside Glucose 202 mg/dL (70-110)
--- NOTE | 2017-05-30 11:27 | NURSING ---
pulse ox up to 95% when pt awakened by this nurse.
[2017-05-30 12:41] LABS: Bedside Glucose 231 mg/dL (70-110)
[2017-05-30] MEDS: Ferrous Sulfate 325 MG Tablet PO ×2 (13:24→17:08)
[2017-05-30] MEDS: buPROPion (XL) 150 MG TABLET.XL PO (13:24)
[2017-05-30] MEDS: Gabapentin 400 MG Capsule 800 MG PO ×3 (13:25→21:38)
[2017-05-30] MEDS: Citalopram 40 MG TABLET PO (13:25)
[2017-05-30] MEDS: Losartan Potassium 100 MG Tablet PO (13:25)
[2017-05-30] MEDS: Glucerna Shake 120 ML LIQUID PO ×3 (14:16→22:00)
[2017-05-30 17:16] LABS: Bedside Glucose 220 mg/dL (70-110)
[2017-05-30] MEDS: HYDROmorphone 1 MG/ML Syringe IV (18:03)
--- NOTE | 2017-05-30 19:14 | PCM.PROGNOTE ---
Subjective: He had debridement of left heel today. He is feeling fair. - Physical Exam General: Alert, Oriented x3, Cooperative, Well developed, Well nourished HEENT: Atraumatic, PERRLA Oral: Moist Mucosa, No Gingival or Mucosal Lesions/ Ulcerations Neck: Supple, No JVD, Negative Carotid Bruits Lungs: Clear to auscultation, Normal air movement, No rhonchi, No wheeze, No rales Cardiovascular: Regular rate, Regular Rhythm, Normal S1, Normal S2, No murmurs, No Ectopic Activity Abdomen: Bowel Sounds Present, Soft, Non Tender, Non-Distended, Obese Extremities: No clubbing, No cyanosis, No edema, - - Left foot dressed, clan and dry. H/o right metatarsal amputation. Skin: No rashes, No breakdown Lymphatic: No Cervical, Supraclavicular, or Inguinal Adenopathy Neurological: Cranial nerves II-XII grossly intact, Neuro grossly intact Psych/Mental Status: Normal Affect - Physical Exam Vital Signs Temp Pulse Resp BP Pulse Ox 97.9 F 81 16 162/72 H 100 05/30/17 16:15 05/30/17 16:15 05/30/17 16:15 05/30/17 16:15 05/30/17 16:15 Oxygen Flow Rate (L/min) 2 Oxygen Delivery Method Nasal Cannula Weight: 338 lb 13.608 oz Body Mass Index (BMI) 42.3 Intake and Output for Last 24 Hours 05/28/17 05/29/17 05/30/17 23:59 23:59 23:59 Intake Total 2002 1423.4 / 1423.4 Output Total 1450 / 1450 3525 / 3525 Balance 553 / 553 -2101.6 / -2101.6 Microbiology Past 72 Hours 05/30/17 Unknown Gram Stain - Final Tissue - Left Foot 05/30/17 Unknown Gram Stain - Final Bone - Left Foot Laboratory Tests Past 24 Hrs 05/30/17 05/30/17 05/30/17 06:45 06:45 06:45 WBC 5.7 RBC 3.30 L Hgb 8.5 L Hct 28.0 L MCV 84.8 MCH 25.8 L MCHC 30.4 L RDW 15.1 H RDW Differential 47.0 H Plt Count 322 MPV 8.6 Immature Gran % (Auto) 0.300 Neut % (Auto) 68.8 Lymph % (Auto) 19.3 [place] % (Auto) 6.8 Eos % (Auto) 4.5 Baso % (Auto) 0.3 Absolute Neuts (auto) 3.9 Absolute Lymphs (auto) 1.11 Total Counted Not Reportable ESR 53 H Sodium Potassium Chloride Carbon Dioxide Anion Gap BUN Creatinine Estim Creat Clear Calc Est GFR (MDRD) Af Amer Est GFR (MDRD) Non-Af BUN/Creatinine Ratio Glucose Calcium C-React Prot Ext Range 64.90 H Prealbumin 18.4 L 05/30/17 06:45 WBC RBC Hgb Hct MCV MCH MCHC RDW RDW Differential Plt Count MPV Immature Gran % (Auto) Neut % (Auto) Lymph % (Auto) [place] % (Auto) Eos % (Auto) Baso % (Auto) Absolute Neuts (auto) Absolute Lymphs (auto) Total Counted ESR Sodium 138 Potassium 4.6 Chloride 102 Carbon Dioxide 30.0 Anion Gap 6 BUN 22 H Creatinine 0.97 Estim Creat Clear Calc 95.58 Est GFR (MDRD) Af Amer 102 Est GFR (MDRD) Non-Af 84 BUN/Creatinine Ratio 22.8 H Glucose 216 H Calcium 8.8 C-React Prot Ext Range Prealbumin POC Glucose 05/30/17 05/30/17 05/30/17 17:05 12:23 11:21 POC Glucose 220 H 231 H 202 H 05/30/17 05/29/17 08:39 22:50 POC Glucose 212 H 195 H Diagnostic Data Foot X-Ray 05/28/17 15:29 Chest X-Ray 05/28/17 16:29 IMPRESSION: Normal x-ray examination of the chest. Electronically Signed: Noe Ruth MD at 16:55 EDT , Service support , Lower Extremity MRI 05/29/17 11:04 IMPRESSION: Increasing marrow edema with enhancement of the calcaneus and cuboid in region of large soft tissue defect consistent with osteomyelitis. Advanced arthrosis of the foot and ankle consistent with Charcot arthropathy. Electronically Signed: Morgan Gonzalez MD at 16:36 EDT , Service support , Medical Necessity - Tobacco Use Smoking Status: Former smoker Tobacco Use: Non-smoker Assessment/Plan The patient is a 62 year old M with a hx of charcot foot BL, T2DM, right foot s/p TMA, left foot with nonhealing wounds and osteomyelitis, PETRA, HTN, HLD, anxiety and depression, morbid obesity, who presents to the ER from the wound care center as his nonhealing left foot wound that has worsened over the past week. He has been following with infectious disease, Dr. Yanes, and Dr. Rodriguez for this wound since last admission. He was admitted in March for this wound which at the time grew MRSA and he was treated with IV vanc, clinda, and levaquin, transitioned to home IV vancomycin. He was also on home IV antibiotics in January and February after which the wound came back leading to that admission. It is noted on the discharge summary in March that an amputation was being considered however there were insurance issues. The patient states he was doing well until the IV vancomycin was completed 1 week ago. At that point he began having more erythema, foul odor, swelling, and much more pain in the left foot. He had a wound vac on that was being changed 3 x per week and he saw the wound nurse in the wound center to have this changed today, prompting him to be sent over. He states he has felt feverish for about 1 week off and on as well, however does not have a fever here in the ER. He also has noticed increased cough with sputum production and mild SOB for the last week. He has a negative CXR. Foot xray shows osteomyelitis. 1. Non-healing diabetic left foot wound with chronic osteomyelitis with underling Charcot foot - consult to ID, Dr. Rodriguez, and Dr. Yanes who have been following him. Completed vanc about 1 week ago. Foot XRay with osteo. Wound became worse when vancomycin DC'd. MRI is also suggestive of osteomyelitis. He may be heading to below knee amputation with persisting osteomyelitis. S/P debridement of heel per Dr. Rodriguez on 05/30. Continue vancomycin and Zosyn for now, as he had previous MRSA and wound culture is showing gram negative jon. 2. Charcot foot RLE s/p TMA. Appears well healed. 3. Chronic iron deficiency anemia - see iron studies from [facility]. Start PO iron. Will recheck iron panel + retic panel. 4. T2DM with peripheral neuropathy, obesity - hold orals. Continue insulin as ordered at home + SSI. Tube Cleaner marioal. 5. HTN - continue losartan, hold diuretics. 6. Anx/Dep - home meds 7. PETRA - continue CPAP 8. HLD - statin 9. CPS - on home morphine PO. Will continue. DVT ppx: lovenox GI prophylaxis: PPI po. Pt. is full code. DC planning: PTOT dario. Code Visit Inpatient E&M: 42246 Subs Hosp L2
--- NOTE | 2017-05-30 19:18 | PN_ITS ---
Subjective: He had debridement of left heel today. He is feeling fair. - Physical Exam General: Alert, Oriented x3, Cooperative, Well developed, Well nourished HEENT: Atraumatic, PERRLA Oral: Moist Mucosa, No Gingival or Mucosal Lesions/ Ulcerations Neck: Supple, No JVD, Negative Carotid Bruits Lungs: Clear to auscultation, Normal air movement, No rhonchi, No wheeze, No rales Cardiovascular: Regular rate, Regular Rhythm, Normal S1, Normal S2, No murmurs, No Ectopic Activity Abdomen: Bowel Sounds Present, Soft, Non Tender, Non-Distended, Obese Extremities: No clubbing, No cyanosis, No edema, - - Left foot dressed, clan and dry. H/o right metatarsal amputation. Skin: No rashes, No breakdown Lymphatic: No Cervical, Supraclavicular, or Inguinal Adenopathy Neurological: Cranial nerves II-XII grossly intact, Neuro grossly intact Psych/Mental Status: Normal Affect - Physical Exam Vital Signs Temp Pulse Resp BP Pulse Ox 97.9 F 81 16 162/72 H 100 05/30/17 16:15 05/30/17 16:15 05/30/17 16:15 05/30/17 16:15 05/30/17 16:15 Oxygen Flow Rate (L/min) 2 Oxygen Delivery Method Nasal Cannula Weight: 338 lb 13.608 oz Body Mass Index (BMI) 42.3 Intake and Output for Last 24 Hours 05/28/17 05/29/17 05/30/17 23:59 23:59 23:59 Intake Total 2002 1423.4 / 1423.4 Output Total 1450 / 1450 3525 / 3525 Balance 553 / 553 -2101.6 / -2101.6 Microbiology Past 72 Hours 05/30/17 Unknown Gram Stain - Final Tissue - Left Foot 05/30/17 Unknown Gram Stain - Final Bone - Left Foot Laboratory Tests Past 24 Hrs 05/30/17 05/30/17 05/30/17 06:45 06:45 06:45 WBC 5.7 RBC 3.30 L Hgb 8.5 L Hct 28.0 L MCV 84.8 MCH 25.8 L MCHC 30.4 L RDW 15.1 H RDW Differential 47.0 H Plt Count 322 MPV 8.6 Immature Gran % (Auto) 0.300 Neut % (Auto) 68.8 Lymph % (Auto) 19.3 [place] % (Auto) 6.8 Eos % (Auto) 4.5 Baso % (Auto) 0.3 Absolute Neuts (auto) 3.9 Absolute Lymphs (auto) 1.11 Total Counted Not Reportable ESR 53 H Sodium Potassium Chloride Carbon Dioxide Anion Gap BUN Creatinine Estim Creat Clear Calc Est GFR (MDRD) Af Amer Est GFR (MDRD) Non-Af BUN/Creatinine Ratio Glucose Calcium C-React Prot Ext Range 64.90 H Prealbumin 18.4 L 05/30/17 06:45 WBC RBC Hgb Hct MCV MCH MCHC RDW RDW Differential Plt Count MPV Immature Gran % (Auto) Neut % (Auto) Lymph % (Auto) [place] % (Auto) Eos % (Auto) Baso % (Auto) Absolute Neuts (auto) Absolute Lymphs (auto) Total Counted ESR Sodium 138 Potassium 4.6 Chloride 102 Carbon Dioxide 30.0 Anion Gap 6 BUN 22 H Creatinine 0.97 Estim Creat Clear Calc 95.58 Est GFR (MDRD) Af Amer 102 Est GFR (MDRD) Non-Af 84 BUN/Creatinine Ratio 22.8 H Glucose 216 H Calcium 8.8 C-React Prot Ext Range Prealbumin POC Glucose 05/30/17 05/30/17 05/30/17 17:05 12:23 11:21 POC Glucose 220 H 231 H 202 H 05/30/17 05/29/17 08:39 22:50 POC Glucose 212 H 195 H Diagnostic Data Foot X-Ray 05/28/17 15:29 Chest X-Ray 05/28/17 16:29 IMPRESSION: Normal x-ray examination of the chest. Electronically Signed: Noe Ruth MD at 16:55 EDT , Service support , Lower Extremity MRI 05/29/17 11:04 IMPRESSION: Increasing marrow edema with enhancement of the calcaneus and cuboid in region of large soft tissue defect consistent with osteomyelitis. Advanced arthrosis of the foot and ankle consistent with Charcot arthropathy. Electronically Signed: Morgan Gonzalez MD at 16:36 EDT , Service support , Medical Necessity - Tobacco Use Smoking Status: Former smoker Tobacco Use: Non-smoker Assessment/Plan The patient is a 62 year old M with a hx of charcot foot BL, T2DM, right foot s/ p TMA, left foot with nonhealing wounds and osteomyelitis, PETRA, HTN, HLD, anxiety and depression, morbid obesity, who presents to the ER from the wound care center as his nonhealing left foot wound that has worsened over the past week. He has been following with infectious disease, Dr. Yanes, and Dr. Rodriguez for this wound since last admission. He was admitted in March for this wound which at the time grew MRSA and he was treated with IV vanc, clinda, and levaquin, transitioned to home IV vancomycin. He was also on home IV antibiotics in January and February after which the wound came back leading to that admission. It is noted on the discharge summary in March that an amputation was being considered however there were insurance issues. The patient states he was doing well until the IV vancomycin was completed 1 week ago. At that point he began having more erythema, foul odor, swelling, and much more pain in the left foot. He had a wound vac on that was being changed 3 x per week and he saw the wound nurse in the wound center to have this changed today, prompting him to be sent over. He states he has felt feverish for about 1 week off and on as well, however does not have a fever here in the ER. He also has noticed increased cough with sputum production and mild SOB for the last week. He has a negative CXR. Foot xray shows osteomyelitis. 1. Non-healing diabetic left foot wound with chronic osteomyelitis with underling Charcot foot - consult to ID, Dr. Rodriguez, and Dr. Yanes who have been following him. Completed vanc about 1 week ago. Foot XRay with osteo. Wound became worse when vancomycin DC'd. MRI is also suggestive of osteomyelitis. He may be heading to below knee amputation with persisting osteomyelitis. S/P debridement of heel per Dr. Rodriguez on 05/30. Continue vancomycin and Zosyn for now, as he had previous MRSA and wound culture is showing gram negative jon. 2. Charcot foot RLE s/p TMA. Appears well healed. 3. Chronic iron deficiency anemia - see iron studies from [facility]. Start PO iron. Will recheck iron panel + retic panel. 4. T2DM with peripheral neuropathy, obesity - hold orals. Continue insulin as ordered at home + SSI. Rn Circulating marioal. 5. HTN - continue losartan, hold diuretics. 6. Anx/Dep - home meds 7. PETRA - continue CPAP 8. HLD - statin 9. CPS - on home morphine PO. Will continue. DVT ppx: lovenox GI prophylaxis: PPI po. Pt. is full code. DC planning: PTOT dario. Code Visit Inpatient E&M: 36428 Subs Hosp L2
[2017-05-30 21:01] LABS: Vancomycin, Trough Level 14.5 ug/mL (5.0-15.0)
[2017-05-30] MEDS: Atorvastatin Calcium 20 MG Tablet PO (21:38)
[2017-05-30 22:51] LABS: Bedside Glucose 162 mg/dL (70-110)
[2017-05-31 04:00] VITALS: BP 161/72; PULSE 76; RESP 16; TEMP 36.9; O2SAT 94
[2017-05-31] MEDS: HYDROmorphone 1 MG/ML Syringe IV ×2 (06:08→15:37)
[2017-05-31] MEDS: Enoxaparin 40 MG/0.4 ML Syringe SC (06:13)
[2017-05-31] MEDS: morphine SR 15 MG Tablet PO ×3 (07:07→20:58)
[2017-05-31 08:23] LABS: Hematocrit 27.4 % (40-54); Hemoglobin 8.2 g/dl (13.0-16.5); Mean Corp Hgb Conc 29.9 g/gl (32-36); Mean Corpuscular Hgb 25.8 pg (27.0-32.0); Mean Corpuscular Volume 86.2 fL (80-94); Mean Platelet Vol. 8.4 fl (6.2-12.0); Platelet Count 311 K/mm3 (150-450); RBC Distribution Width CV 15.3 % (11.6-14.6); RBC Distribution Width SD 48.2 fl (35.1-43.9); Red Blood Count 3.18 M/mm3 (4.6-6.2); White Blood Count 6.1 K/mm3 (4.4-11.0)
[2017-05-31 08:24] LABS: Scan Indicated on CBC? Y/N NO
[2017-05-31 08:46] LABS: Anion Gap 5 (5-15); BUN 22 mg/dL (7-18); BUN/Creat Ratio 20.4 RATIO (10-20); Calcium,Total 8.6 mg/dL (8.5-10.1); Chloride 104 mmol/L (98-107); Creatinine, Serum 1.08 mg/dL (0.70-1.30); EST Glomerular Filtration Rate 74 mL/min (>60); Est Glom Filt Rate - Afr Amer 89 mL/min (>60); Estimated Creatinine Clearance 85.85 ml/min; Glucose 198 mg/dL (74-106); Potassium 4.7 mmol/L (3.5-5.1); Sodium Level 139 mmol/L (136-145)
[2017-05-31 09:18] VITALS: BP 170/81; PULSE 78; RESP 16; TEMP 36.8; O2SAT 95
[2017-05-31] MEDS: Glucerna Shake 120 ML LIQUID PO ×4 (09:26→21:01)
[2017-05-31] MEDS: Citalopram 40 MG TABLET PO (09:27)
[2017-05-31] MEDS: Ferrous Sulfate 325 MG Tablet PO ×2 (09:27→16:57)
[2017-05-31] MEDS: Gabapentin 400 MG Capsule 800 MG PO ×4 (09:27→21:02)
[2017-05-31] MEDS: Losartan Potassium 100 MG Tablet PO (09:27)
[2017-05-31] MEDS: Pantoprazole Sodium 20 MG Tablet PO (09:27)
[2017-05-31] MEDS: buPROPion (XL) 150 MG TABLET.XL PO (09:27)
[2017-05-31 09:41] LABS: Bedside Glucose 239 mg/dL (70-110)
--- NOTE | 2017-05-31 10:04 | OP.PCM_ITS ---
Report of Operation Date of Procedure: 05/30/17 Pre-Operative Diagnosis: 1. Nonhealing diabetic ulcer left plantar foot with infection. 2. Nonhealing diabetic ulcer left medial foot with infection. 3. Osteomyelitis. 4. Diabetes mellitus. 5. MRSA. 6. Charcot foot neuropathic osteoarthropathy. 7. Former smoker. Post-Operative Diagnosis: Same. Surgery/Procedure Performed:: 1. Surgical preparation left plantar foot with incision and drainage and excisional debridement nonhealing MRSA diabetic ulcer (42 cm2). 2. Partial ostectomy cuboid bone for osteomyelitis. Description of Surgical Findings:: Patient is known to me. I have been seeing him at the Wound Center. He had operative debridement of these nonhealing ulcers on 03/25/17. He had just finished his IV Vancomycin last week and the PICC line was pulled. I started him on PO Doxycycline as a preventative antibiotic for the next several months. However at the Wound Center yesterday, it was noted he was having increasing redness and swelling and pain in his left foot in the area of the nonhealing ulcers. His WBC was normal at 7.6 in the ED. He was admitted and started on IV Vancomycin and Zosyn. Xray was suspicious for osteomyelitis. MRI was also suspicious for osteomyelitis. Patient was informed of the risks and complications of the procedure including alternatives to surgery. These were discussed with him personally. He voices understanding and wishes to proceed. Patient understands that eventual amputation is probable. Size of defect left plantar foot - 7 x 6 x 2.5 cm. medical surgical tech: None Type of Anesthesia:: General Specimen's removed: 1. Nonhealing MRSA diabetic ulcer left plantar foot soft tissue to Pathology and Microbiology. 2. Nonhealing MRSA diabetic ulcer left plantar foot cuboid bone to Pathology and Microbiology. Drains: None. Estimated Blood Loss (mL): 250 ml. Description of Procedure: Patient was taken to OR in supine position and was placed under general anesthesia. His left foot and lower leg were prepped and draped in the usual fashion. SCD's were placed for DVT prophylaxis on his right lower extremity. He is also getting chemoprophylaxis with Lovenox for DVT prophylaxis. Perioperative antibiotics were given intravenously. A tourniquet was placed on the leg in case it is needed to be inflated for control of bleeding. Using xylocaine with epinephrine, the diabetic ulcer on his left plantar foot was infiltrated. After waiting 5 minutes for the anesthetic to take effect, I proceeded with incision and drainage of this diabetic ulcer with a scalpel. I incised into the subcutaneous tissue. There was a lot of fat necrosis present that was starting to liquefy. No gross pus was seen. In the left plantar foot , the muscular fascia appeared very inflamed with fasciitis. I could not appreciate a necrotizing process at this time. The muscle initially looked grayish with questionable viability. After exposing it to air and after irrigation with saline it became more pink and viable. I did digital palpation to see if there were any areas of tunnelling either laterally or deeper into the foot. No tunnelling was palpable especially in the area of the skin bridge between the left plantar foot ulcer and the healing left medial foot ulcer. In the left plantar foot, there was involvement of the deeper muscles (quadratus muscle extending up to the tendinous portion of the flexor digitorum longus. The ulcer had eroded down to the cuboid bone which was suspicious for osteomyelitis on MRI. The muscle appeared viable after irrigation and after exposing it to air. Some of the inflamed fascia was debrided with the muscle. I could not appreciate a necrotizing process at this time. The edges of the muscle that were bleeding from muscular branches from the lateral plantar artery were cauterized for hemostasis. Once again the wounds were irrigated with saline. Once again, with digital palpation, I could not palpate any tunnelling either laterally in the area of the intervening skin bridge between both ulcers or deeper into the foot. After the cuboid bone was more exposed after the excisional debridement, a partial ostectomy for osteomyelitis was performed. I used an osteotome and a mallet in a tangential fashion. Half the bone and half the soft tissue were sent to Pathology for analysis to rule out carcinoma and to evaluate for osteomyelitis. Half the soft tissue and half the bone were sent to Microbiology for culture. A positive culture may necessitate antibiotic modification. He had MRSA before and is currently on Vancomycin and Zosyn perioperatively. The remaining ulcer left medial foot which had been improving and has been debrided with a curette when seen at the Wound Center on a weekly basis, was sharply debrided today down into the subcutaneous tissue as an excisional debridement using a large curette. Good bleeding was seen. Hemostasis obtained with gentle pressure. Any remaining of areas of bleeding were electrocauterized. I did not have to inflate the tourniquet. The size of the wound after incision and drainage and excisional debridement was 7 x 6 x 2.5 cm or 42 cm2 for the left plantar foot. The wound was packed with Mepitel nonadherent dressing followed by Kerlix gauze and Betadine followed by dry Kerlix gauze and ABD pads and a compression CONCHIS wrap. The Betadine dressing was also used to dress the left medial foot ulcer as well. He tolerated the procedure well and was sent to PACU in satisfactory condition. He will be sent back upstairs for continued postop care. The VAC will be placed tomorrow. Will continue IV antibiotics. Grafts/Implants Used: None. - Complications None. - Admit VTE Documentation VTE Present on Admission: No VTE Mechan Device Prophylaxis: SCD's VTE Pharm Prophylaxis ordered?: No Code Visit Surgery Charges CPT - 28637 ICD-10 - M86.172, L97.426, E11.621, L02.612, A49.02, E11.610, Z87.891 [id number] L97.426, E11.621, L02.612, A49.02, M86.172 , E11.610, Z87.891
--- NOTE | 2017-05-31 10:56 | PCM.PN.SRG ---
Subjective: Postop #1 Patient resting comfortably. Didn't wake up for the dressing change. - Physical Exam General: - - patient slept during the dressing change. HEENT: PERRLA, EOMI Neck: Supple Lungs: Clear to auscultation Cardiovascular: Regular rate, Regular Rhythm Abdomen: Soft, Non-Distended Skin: Ulcer/ Wound - wound stable with no bleeding. Less swelling noted. Redressed with a saline dressing in preparation for the VAC later today. Neurological: Cranial nerves II-XII grossly intact Psych/Mental Status: - - patient slept during the dressing change. Vital Signs Temp Pulse Resp BP Pulse Ox 98.3 F 78 16 170/81 H 95 05/31/17 09:18 05/31/17 09:18 05/31/17 09:18 05/31/17 09:18 05/31/17 09:18 Oxygen Flow Rate (L/min) 1 Oxygen Delivery Method Room Air Weight: 338 lb 13.608 oz Body Mass Index (BMI) 42.3 Intake and Output for Last 24 Hours 05/29/17 05/30/17 05/31/17 23:59 23:59 23:59 Intake Total 2002 1423.4 / 1423.4 2170 / 2170 Output Total 1450 / 1450 3525 / 3525 1425 / 1425 Balance 553 / 553 -2101.6 / -2101.6 745 / 745 Microbiology Past 72 Hours 05/30/17 Unknown Gram Stain - Final Tissue - Left Foot 05/30/17 Unknown Gram Stain - Final Bone - Left Foot Pathology - pending. Laboratory Tests Past 24 Hrs 05/30/17 05/31/17 05/31/17 19:42 08:10 08:10 WBC 6.1 RBC 3.18 L Hgb 8.2 L Hct 27.4 L MCV 86.2 MCH 25.8 L MCHC 29.9 L RDW 15.3 H RDW Differential 48.2 H Plt Count 311 MPV 8.4 Sodium 139 Potassium 4.7 Chloride 104 Carbon Dioxide 30.0 Anion Gap 5 BUN 22 H Creatinine 1.08 Estim Creat Clear Calc 85.85 Est GFR (MDRD) Af Amer 89 Est GFR (MDRD) Non-Af 74 BUN/Creatinine Ratio 20.4 H Glucose 198 H Calcium 8.6 Vancomycin Trough 14.5 POC Glucose 05/31/17 05/30/17 05/30/17 09:24 21:15 17:05 POC Glucose 239 H 162 H 220 H 05/30/17 05/30/17 12:23 11:21 POC Glucose 231 H 202 H Medical Necessity - Tobacco Use Smoking Status: Former smoker Tobacco Use: Non-smoker Assessment/Plan ASSESSMENT 1. Nonhealing diabetic ulcer left plantar foot with infection. 2. Nonhealing diabetic ulcer left medial foot with infection. 3. Osteomyelitis. 4. Diabetes mellitus. 5. MRSA. 6. Charcot foot neuropathic osteoarthropathy. 7. Former smoker. 8. Anemia of chronic disease, stable. PLAN Wound is stable. No bleeding. To have VAC placed later today. Continue Vancomycin and Zosyn. Preop culture showed MRSA and Proteus mirabilis. Operative cultures are pending thus far. Pathology is pending. After infection is under control and after swelling has stabilized, will discuss eventual amputation with the patient. Tentatively next month. Hgb stable after surgery to 8.2. Getting Iron supplementation. Would need preop PRBC at the time of the amputation. Prealbumin is 18.4. Encourage nutritional supplementation with protein to help the healing process.
[2017-05-31 11:45] LABS: Bedside Glucose 254 mg/dL (70-110)
--- NOTE | 2017-05-31 12:40 | PCM.RX.CS ---
Consult Pharmacy has been consulted to manage selected antiobiotic: Vancomycin Type of Consult: Follow-up Suspected Infection: Other - Continued from home Labs: Sodium 139 mmol/L (136-145) 05/31/17 08:10 Potassium 4.7 mmol/L (3.5-5.1) 05/31/17 08:10 Chloride 104 mmol/L (98-107) 05/31/17 08:10 Carbon Dioxide 30.0 mmol/L (21.0-32.0) 05/31/17 08:10 Anion Gap 5 (5-15) 05/31/17 08:10 BUN 22 mg/dL (7-18) H 05/31/17 08:10 Creatinine 1.08 mg/dL (0.70-1.30) 05/31/17 08:10 Est GFR (MDRD) Af Amer 89 mL/min (>60) 05/31/17 08:10 Est GFR (MDRD) Non-Af 74 mL/min (>60) 05/31/17 08:10 BUN/Creatinine Ratio 20.4 RATIO (10-20) H 05/31/17 08:10 Glucose 198 mg/dL (74-106) H 05/31/17 08:10 Vancomycin Trough 14.5 ug/mL (5.0-15.0) 05/30/17 19:42 Microbiology: Microbiology 05/30/17 Unknown Tissue - Left Foot Gram Stain - Final 05/30/17 Unknown Tissue - Left Foot Wound Culture - Preliminary Proteus sp. 05/30/17 Unknown Bone - Left Foot Gram Stain - Final 05/30/17 Unknown Bone - Left Foot Wound Culture - Preliminary Proteus sp. Weight used for dosin kg Estimated Creatinine Clearance: 100 mL/min Goal Trough: 15-20 mcg/mL Pharmacy Plan for Drug Dosing: Vancomycin trough within goal range. Continue. Pharmacy Service will continue to monitor and adjust dosing as required.
[2017-05-31] MEDS: oxyCODONE 5 MG Tablet PO (13:31)
--- NOTE | 2017-05-31 13:53 | PCM.PROGNOTE ---
Subjective: Patient feels fair. No complaining today. Moderate discomfort of left foot. - Physical Exam General: Alert, Oriented x3, Cooperative, Well developed, Well nourished HEENT: Atraumatic, PERRLA Oral: Moist Mucosa, No Gingival or Mucosal Lesions/ Ulcerations Neck: Supple, No JVD, Negative Carotid Bruits Lungs: Clear to auscultation, Normal air movement, No rhonchi, No wheeze, No rales Cardiovascular: Regular rate, Regular Rhythm, Normal S1, Normal S2, No murmurs, No Ectopic Activity Abdomen: Bowel Sounds Present, Soft, Non Tender, Non-Distended, Obese Extremities: No clubbing, No cyanosis, No edema, - - Left foot dressed, clan and dry. H/o right metatarsal amputation. Skin: No rashes, No breakdown Lymphatic: No Cervical, Supraclavicular, or Inguinal Adenopathy Neurological: Cranial nerves II-XII grossly intact, Neuro grossly intact Psych/Mental Status: Normal Affect - Physical Exam Vital Signs Temp Pulse Resp BP Pulse Ox 98.3 F 78 16 170/81 H 95 05/31/17 09:18 05/31/17 09:18 05/31/17 09:18 05/31/17 09:18 05/31/17 09:18 Oxygen Flow Rate (L/min) 1 Oxygen Delivery Method Room Air Weight: 338 lb 13.608 oz Body Mass Index (BMI) 42.3 Intake and Output for Last 24 Hours 05/29/17 05/30/17 05/31/17 23:59 23:59 23:59 Intake Total 2002 1423.4 / 1423.4 4150 / 4150 Output Total 1450 / 1450 3525 / 3525 2300 / 2300 Balance 553 / 553 -2101.6 / -2101.6 1850 / 1850 Microbiology Past 72 Hours 05/30/17 Unknown Gram Stain - Final Tissue - Left Foot Wound Culture - Preliminary Proteus sp. 05/30/17 Unknown Gram Stain - Final Bone - Left Foot Wound Culture - Preliminary Proteus sp. Laboratory Tests Past 24 Hrs 05/30/17 05/31/17 05/31/17 19:42 08:10 08:10 WBC 6.1 RBC 3.18 L Hgb 8.2 L Hct 27.4 L MCV 86.2 MCH 25.8 L MCHC 29.9 L RDW 15.3 H RDW Differential 48.2 H Plt Count 311 MPV 8.4 Sodium 139 Potassium 4.7 Chloride 104 Carbon Dioxide 30.0 Anion Gap 5 BUN 22 H Creatinine 1.08 Estim Creat Clear Calc 85.85 Est GFR (MDRD) Af Amer 89 Est GFR (MDRD) Non-Af 74 BUN/Creatinine Ratio 20.4 H Glucose 198 H Calcium 8.6 Vancomycin Trough 14.5 POC Glucose 05/31/17 05/31/17 05/30/17 11:34 09:24 21:15 POC Glucose 254 H 239 H 162 H 05/30/17 17:05 POC Glucose 220 H Diagnostic Data Foot X-Ray 05/28/17 15:29 Chest X-Ray 05/28/17 16:29 IMPRESSION: Normal x-ray examination of the chest. Electronically Signed: Noe Ruth MD at 16:55 EDT , Service support , Lower Extremity MRI 05/29/17 11:04 IMPRESSION: Increasing marrow edema with enhancement of the calcaneus and cuboid in region of large soft tissue defect consistent with osteomyelitis. Advanced arthrosis of the foot and ankle consistent with Charcot arthropathy. Electronically Signed: Morgan Gonzalez MD at 16:36 EDT , Service support , Medical Necessity - Tobacco Use Smoking Status: Former smoker Tobacco Use: Non-smoker Assessment/Plan The patient is a 62 year old M with a hx of charcot foot BL, T2DM, right foot s/p TMA, left foot with nonhealing wounds and osteomyelitis, PETRA, HTN, HLD, anxiety and depression, morbid obesity, who presents to the ER from the wound care center as his nonhealing left foot wound that has worsened over the past week. He has been following with infectious disease, Dr. Yanes, and Dr. Rodriguez for this wound since last admission. He was admitted in March for this wound which at the time grew MRSA and he was treated with IV vanc, clinda, and levaquin, transitioned to home IV vancomycin. He was also on home IV antibiotics in January and February after which the wound came back leading to that admission. It is noted on the discharge summary in March that an amputation was being considered however there were insurance issues. The patient states he was doing well until the IV vancomycin was completed 1 week ago. At that point he began having more erythema, foul odor, swelling, and much more pain in the left foot. He had a wound vac on that was being changed 3 x per week and he saw the wound nurse in the wound center to have this changed today, prompting him to be sent over. He states he has felt feverish for about 1 week off and on as well, however does not have a fever here in the ER. He also has noticed increased cough with sputum production and mild SOB for the last week. He has a negative CXR. Foot xray shows osteomyelitis. 1. Non-healing diabetic left foot wound with chronic osteomyelitis with underling Charcot foot - Consult ID, Dr. Rodriguez (plastic surgery), and Dr. Yanes (podiatry). Patient completed vancomycin treatment, then developed open wound in one week after stopping antibiotics. Foot XRay with osteomyelitis. MRI is also suggestive of osteomyelitis. Started on Vancomycin and Zosyn empirically. S/P debridement of heel per Dr. Rodriguez on 05/30. Wound CX on 05/28/17 (on admission): protesus mirabilis and MRSA. Surgical specimen deep wound: proteus sp. bone specimen: proteus sp. (preliminary). Blood culture no growth to date (from 05/28/17). Plan for abx treatment for about one month, then proceed with BKA per Dr. Rodriguez. Await final culture result for abx plan. 2. Charcot foot RLE s/p TMA. Appears well healed. 3. Chronic iron deficiency anemia - see iron studies from [facility]. Start PO iron. Will recheck iron panel + retic panel. 4. T2DM with peripheral neuropathy, obesity - hold orals. Continue insulin as ordered at home + SSI. 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 5. HTN - continue losartan, hold diuretics. 6. Anx/Dep - home meds 7. PETRA - continue CPAP 8. HLD - statin 9. Chronic pain syndrome. on home morphine PO. Will continue. DVT ppx: lovenox GI prophylaxis: PPI po. Pt. is full code. DC planning: PTOT evals. May need PICC line depending on need for abx. Code Visit Inpatient E&M: 64066 Subs Hosp L2
--- NOTE | 2017-05-31 14:02 | PN_ITS ---
Subjective: Patient feels fair. No complaining today. Moderate discomfort of left foot. - Physical Exam General: Alert, Oriented x3, Cooperative, Well developed, Well nourished HEENT: Atraumatic, PERRLA Oral: Moist Mucosa, No Gingival or Mucosal Lesions/ Ulcerations Neck: Supple, No JVD, Negative Carotid Bruits Lungs: Clear to auscultation, Normal air movement, No rhonchi, No wheeze, No rales Cardiovascular: Regular rate, Regular Rhythm, Normal S1, Normal S2, No murmurs, No Ectopic Activity Abdomen: Bowel Sounds Present, Soft, Non Tender, Non-Distended, Obese Extremities: No clubbing, No cyanosis, No edema, - - Left foot dressed, clan and dry. H/o right metatarsal amputation. Skin: No rashes, No breakdown Lymphatic: No Cervical, Supraclavicular, or Inguinal Adenopathy Neurological: Cranial nerves II-XII grossly intact, Neuro grossly intact Psych/Mental Status: Normal Affect - Physical Exam Vital Signs Temp Pulse Resp BP Pulse Ox 98.3 F 78 16 170/81 H 95 05/31/17 09:18 05/31/17 09:18 05/31/17 09:18 05/31/17 09:18 05/31/17 09:18 Oxygen Flow Rate (L/min) 1 Oxygen Delivery Method Room Air Weight: 338 lb 13.608 oz Body Mass Index (BMI) 42.3 Intake and Output for Last 24 Hours 05/29/17 05/30/17 05/31/17 23:59 23:59 23:59 Intake Total 2002 1423.4 / 1423.4 4150 / 4150 Output Total 1450 / 1450 3525 / 3525 2300 / 2300 Balance 553 / 553 -2101.6 / -2101.6 1850 / 1850 Microbiology Past 72 Hours 05/30/17 Unknown Gram Stain - Final Tissue - Left Foot Wound Culture - Preliminary Proteus sp. 05/30/17 Unknown Gram Stain - Final Bone - Left Foot Wound Culture - Preliminary Proteus sp. Laboratory Tests Past 24 Hrs 05/30/17 05/31/17 05/31/17 19:42 08:10 08:10 WBC 6.1 RBC 3.18 L Hgb 8.2 L Hct 27.4 L MCV 86.2 MCH 25.8 L MCHC 29.9 L RDW 15.3 H RDW Differential 48.2 H Plt Count 311 MPV 8.4 Sodium 139 Potassium 4.7 Chloride 104 Carbon Dioxide 30.0 Anion Gap 5 BUN 22 H Creatinine 1.08 Estim Creat Clear Calc 85.85 Est GFR (MDRD) Af Amer 89 Est GFR (MDRD) Non-Af 74 BUN/Creatinine Ratio 20.4 H Glucose 198 H Calcium 8.6 Vancomycin Trough 14.5 POC Glucose 05/31/17 05/31/17 05/30/17 11:34 09:24 21:15 POC Glucose 254 H 239 H 162 H 05/30/17 17:05 POC Glucose 220 H Diagnostic Data Foot X-Ray 05/28/17 15:29 Chest X-Ray 05/28/17 16:29 IMPRESSION: Normal x-ray examination of the chest. Electronically Signed: Noe Ruth MD at 16:55 EDT , Service support , Lower Extremity MRI 05/29/17 11:04 IMPRESSION: Increasing marrow edema with enhancement of the calcaneus and cuboid in region of large soft tissue defect consistent with osteomyelitis. Advanced arthrosis of the foot and ankle consistent with Charcot arthropathy. Electronically Signed: Morgan Gonzalez MD at 16:36 EDT , Service support , Medical Necessity - Tobacco Use Smoking Status: Former smoker Tobacco Use: Non-smoker Assessment/Plan The patient is a 62 year old M with a hx of charcot foot BL, T2DM, right foot s/ p TMA, left foot with nonhealing wounds and osteomyelitis, PETRA, HTN, HLD, anxiety and depression, morbid obesity, who presents to the ER from the wound care center as his nonhealing left foot wound that has worsened over the past week. He has been following with infectious disease, Dr. Yanes, and Dr. Rodriguez for this wound since last admission. He was admitted in March for this wound which at the time grew MRSA and he was treated with IV vanc, clinda, and levaquin, transitioned to home IV vancomycin. He was also on home IV antibiotics in January and February after which the wound came back leading to that admission. It is noted on the discharge summary in March that an amputation was being considered however there were insurance issues. The patient states he was doing well until the IV vancomycin was completed 1 week ago. At that point he began having more erythema, foul odor, swelling, and much more pain in the left foot. He had a wound vac on that was being changed 3 x per week and he saw the wound nurse in the wound center to have this changed today, prompting him to be sent over. He states he has felt feverish for about 1 week off and on as well, however does not have a fever here in the ER. He also has noticed increased cough with sputum production and mild SOB for the last week. He has a negative CXR. Foot xray shows osteomyelitis. 1. Non-healing diabetic left foot wound with chronic osteomyelitis with underling Charcot foot - Consult ID, Dr. Rodriguez (plastic surgery), and Dr. Yanes (podiatry). Patient completed vancomycin treatment, then developed open wound in one week after stopping antibiotics. Foot XRay with osteomyelitis. MRI is also suggestive of osteomyelitis. Started on Vancomycin and Zosyn empirically. S/P debridement of heel per Dr. Rodriguez on 05/30. Wound CX on 05/28/17 (on admission): protesus mirabilis and MRSA. Surgical specimen deep wound: proteus sp. bone specimen: proteus sp. (preliminary). Blood culture no growth to date (from 05/28/17). Plan for abx treatment for about one month, then proceed with BKA per Dr. Rodriguez. Await final culture result for abx plan. 2. Charcot foot RLE s/p TMA. Appears well healed. 3. Chronic iron deficiency anemia - see iron studies from [facility]. Start PO iron. Will recheck iron panel + retic panel. 4. T2DM with peripheral neuropathy, obesity - hold orals. Continue insulin as ordered at home + SSI. Marble Supervisor eval. 5. HTN - continue losartan, hold diuretics. 6. Anx/Dep - home meds 7. PETRA - continue CPAP 8. HLD - statin 9. Chronic pain syndrome. on home morphine PO. Will continue. DVT ppx: lovenox GI prophylaxis: PPI po. Pt. is full code. DC planning: PTOT evals. May need PICC line depending on need for abx. Code Visit Inpatient E&M: 22569 Subs Hosp L2
[2017-05-31] MEDS: 0.9% NaCl Peripheral Flush Adult/Peds IV (14:59)
[2017-05-31 17:05] VITALS: BP 166/70; PULSE 86; RESP 16; TEMP 36.6; O2SAT 98
[2017-05-31 17:11] LABS: Bedside Glucose 199 mg/dL (70-110)
[2017-05-31 20:40] VITALS: BP 150/63; PULSE 78; RESP 16; TEMP 37; O2SAT 97
[2017-05-31 20:42] VITALS: RESP 16
[2017-05-31] MEDS: Atorvastatin Calcium 20 MG Tablet PO (21:02)
[2017-05-31 21:15] LABS: Bedside Glucose 184 mg/dL (70-110)
[2017-06-01] MEDS: oxyCODONE 5 MG Tablet PO ×2 (02:14→08:34)
[2017-06-01 02:17] VITALS: BP 155/65; PULSE 79; RESP 18; TEMP 36.8; O2SAT 100
[2017-06-01] MEDS: morphine SR 15 MG Tablet PO ×3 (06:01→22:35)
[2017-06-01] MEDS: Enoxaparin 40 MG/0.4 ML Syringe SC (06:03)
[2017-06-01 07:20] VITALS: O2SAT 100
[2017-06-01 07:36] VITALS: O2SAT 96
[2017-06-01 08:20] LABS: Bedside Glucose 131 mg/dL (70-110)
[2017-06-01 08:30] VITALS: BP 189/72; PULSE 88; RESP 20; TEMP 36.6; O2SAT 99
[2017-06-01] MEDS: Losartan Potassium 100 MG Tablet PO (08:33)
[2017-06-01] MEDS: Ferrous Sulfate 325 MG Tablet PO ×2 (08:34→17:13)
[2017-06-01] MEDS: Gabapentin 400 MG Capsule 800 MG PO ×4 (08:34→22:35)
[2017-06-01] MEDS: Acetaminophen 325 MG Tablet 650 MG PO (08:34)
[2017-06-01] MEDS: Citalopram 40 MG TABLET PO (08:34)
[2017-06-01] MEDS: buPROPion (XL) 150 MG TABLET.XL PO (08:34)
[2017-06-01] MEDS: Pantoprazole Sodium 20 MG Tablet PO (08:34)
[2017-06-01] MEDS: Glucerna Shake 120 ML LIQUID PO ×4 (08:35→20:20)
--- NOTE | 2017-06-01 09:53 | NURSING ---
spoke with Baldomero in Pharmacy regarding Vanc and zosyn compatability- per Baldomero, he states that they are NOT compatable. Meds will be off schedule.
[2017-06-01] MEDS: oxyCODONE 5 MG Tablet 10 MG PO ×2 (11:53→20:33)
[2017-06-01 12:15] LABS: Bedside Glucose 242 mg/dL (70-110)
--- NOTE | 2017-06-01 12:46 | PCM.PROGNOTE ---
Subjective: He is having increasing pain in the left foot today. Afebrile. Vital signs are stable except that he is more hypertensive. - Physical Exam General: Alert, Oriented x3, Cooperative, Well developed, Well nourished HEENT: Atraumatic, PERRLA Oral: Moist Mucosa, No Gingival or Mucosal Lesions/ Ulcerations Neck: Supple, No JVD, Negative Carotid Bruits Lungs: Clear to auscultation, Normal air movement, No rhonchi, No wheeze, No rales Cardiovascular: Regular rate, Regular Rhythm, Normal S1, Normal S2, No murmurs, No Ectopic Activity Abdomen: Bowel Sounds Present, Soft, Non Tender, Non-Distended, Obese Extremities: No clubbing, No cyanosis, No edema, - - Left foot dressed, clan and dry. H/o right metatarsal amputation. Skin: No rashes, No breakdown Lymphatic: No Cervical, Supraclavicular, or Inguinal Adenopathy Neurological: Cranial nerves II-XII grossly intact, Neuro grossly intact Psych/Mental Status: Normal Affect - Physical Exam Vital Signs Temp Pulse Resp BP Pulse Ox 97.8 F 88 20 H 189/72 H 99 06/01/17 08:30 06/01/17 08:30 06/01/17 08:30 06/01/17 08:30 06/01/17 08:30 Oxygen Flow Rate (L/min) 2 Oxygen Delivery Method Room Air Weight: 338 lb 13.608 oz Body Mass Index (BMI) 42.3 Intake and Output for Last 24 Hours 05/30/17 05/31/17 06/01/17 23:59 23:59 23:59 Intake Total 1423.4 / 1423.4 5220 / 5220 3290.6 / 3290.6 Output Total 3525 / 3525 2800 / 2800 3125 / 3125 Balance -2101.6 / -2101.6 2420 / 2420 165.6 / 165.6 Microbiology Past 72 Hours 05/30/17 Unknown Gram Stain - Final Tissue - Left Foot Wound Culture - Preliminary Proteus mirabilis Staphylococcus aureus 05/30/17 Unknown Gram Stain - Final Bone - Left Foot Wound Culture - Preliminary Proteus mirabilis Staphylococcus species POC Glucose 06/01/17 06/01/17 05/31/17 11:51 08:08 21:01 POC Glucose 242 H 131 H 184 H 05/31/17 16:56 POC Glucose 199 H Diagnostic Data Foot X-Ray 05/28/17 15:29 Chest X-Ray 05/28/17 16:29 IMPRESSION: Normal x-ray examination of the chest. Electronically Signed: Noe Ruth MD at 16:55 EDT , Service support , Lower Extremity MRI 05/29/17 11:04 IMPRESSION: Increasing marrow edema with enhancement of the calcaneus and cuboid in region of large soft tissue defect consistent with osteomyelitis. Advanced arthrosis of the foot and ankle consistent with Charcot arthropathy. Electronically Signed: Morgan Gonzalez MD at 16:36 EDT , Service support , Medical Necessity - Tobacco Use Smoking Status: Former smoker Tobacco Use: Non-smoker Assessment/Plan The patient is a 62 year old M with a hx of charcot foot BL, T2DM, right foot s/p TMA, left foot with nonhealing wounds and osteomyelitis, PETRA, HTN, HLD, anxiety and depression, morbid obesity, who presents to the ER from the wound care center as his nonhealing left foot wound that has worsened over the past week. He has been following with infectious disease, Dr. Yanes, and Dr. Rodriguez for this wound since last admission. He was admitted in March for this wound which at the time grew MRSA and he was treated with IV vanc, clinda, and levaquin, transitioned to home IV vancomycin. He was also on home IV antibiotics in January and February after which the wound came back leading to that admission. It is noted on the discharge summary in March that an amputation was being considered however there were insurance issues. The patient states he was doing well until the IV vancomycin was completed 1 week ago. At that point he began having more erythema, foul odor, swelling, and much more pain in the left foot. He had a wound vac on that was being changed 3 x per week and he saw the wound nurse in the wound center to have this changed today, prompting him to be sent over. He states he has felt feverish for about 1 week off and on as well, however does not have a fever here in the ER. He also has noticed increased cough with sputum production and mild SOB for the last week. He has a negative CXR. Foot xray shows osteomyelitis. 1. Non-healing diabetic left foot wound with chronic osteomyelitis with underling Charcot foot - Consult ID, Dr. Rodriguez (plastic surgery), and Dr. Yanes (podiatry). Patient completed vancomycin treatment, then developed open wound in one week after stopping antibiotics. Foot XRay with osteomyelitis. MRI is also suggestive of osteomyelitis. Started on Vancomycin and Zosyn empirically. S/P debridement of heel per Dr. Rodriguez on 05/30. Wound CX on 05/28/17 (on admission): protesus mirabilis and MRSA. Surgical specimen deep wound: proteus sp. bone specimen: proteus mirabilis and Staph A. Sensitivity for staph is pending. Blood culture no growth to date (from 05/28/17). Plan for abx treatment for about one month, then proceed with BKA per Dr. Rodriguez. Await final culture result for abx plan. Increase PO oxycodone 5 mg to 10 mg po q6h prn (06/01). 2. Charcot foot RLE s/p TMA. Appears well healed. 3. Chronic iron deficiency anemia - see iron studies from [facility]. Start PO iron. Will recheck iron panel + retic panel. 4. T2DM with peripheral neuropathy, obesity - hold orals. Continue insulin as ordered at home + SSI. Steam Conditioning Operator eval. 5. HTN - continue losartan, hold diuretics. 6. Anx/Dep - home meds 7. PETRA - continue CPAP 8. HLD - statin 9. Chronic pain syndrome. on home morphine PO + oxycodone po. Hydromorphone IV added aslo. DVT ppx: lovenox GI prophylaxis: PPI po. Pt. is full code. DC planning: PTOT evals. May need PICC line depending on need for abx. Code Visit Inpatient E&M: [id number] Subs Hosp L2
--- NOTE | 2017-06-01 12:52 | PN_ITS ---
Subjective: He is having increasing pain in the left foot today. Afebrile. Vital signs are stable except that he is more hypertensive. - Physical Exam General: Alert, Oriented x3, Cooperative, Well developed, Well nourished HEENT: Atraumatic, PERRLA Oral: Moist Mucosa, No Gingival or Mucosal Lesions/ Ulcerations Neck: Supple, No JVD, Negative Carotid Bruits Lungs: Clear to auscultation, Normal air movement, No rhonchi, No wheeze, No rales Cardiovascular: Regular rate, Regular Rhythm, Normal S1, Normal S2, No murmurs, No Ectopic Activity Abdomen: Bowel Sounds Present, Soft, Non Tender, Non-Distended, Obese Extremities: No clubbing, No cyanosis, No edema, - - Left foot dressed, clan and dry. H/o right metatarsal amputation. Skin: No rashes, No breakdown Lymphatic: No Cervical, Supraclavicular, or Inguinal Adenopathy Neurological: Cranial nerves II-XII grossly intact, Neuro grossly intact Psych/Mental Status: Normal Affect - Physical Exam Vital Signs Temp Pulse Resp BP Pulse Ox 97.8 F 88 20 H 189/72 H 99 06/01/17 08:30 06/01/17 08:30 06/01/17 08:30 06/01/17 08:30 06/01/17 08:30 Oxygen Flow Rate (L/min) 2 Oxygen Delivery Method Room Air Weight: 338 lb 13.608 oz Body Mass Index (BMI) 42.3 Intake and Output for Last 24 Hours 05/30/17 05/31/17 06/01/17 23:59 23:59 23:59 Intake Total 1423.4 / 1423.4 5220 / 5220 3290.6 / 3290.6 Output Total 3525 / 3525 2800 / 2800 3125 / 3125 Balance -2101.6 / -2101.6 2420 / 2420 165.6 / 165.6 Microbiology Past 72 Hours 05/30/17 Unknown Gram Stain - Final Tissue - Left Foot Wound Culture - Preliminary Proteus mirabilis Staphylococcus aureus 05/30/17 Unknown Gram Stain - Final Bone - Left Foot Wound Culture - Preliminary Proteus mirabilis Staphylococcus species POC Glucose 06/01/17 06/01/17 05/31/17 11:51 08:08 21:01 POC Glucose 242 H 131 H 184 H 05/31/17 16:56 POC Glucose 199 H Diagnostic Data Foot X-Ray 05/28/17 15:29 Chest X-Ray 05/28/17 16:29 IMPRESSION: Normal x-ray examination of the chest. Electronically Signed: Noe Ruth MD at 16:55 EDT , Service support , Lower Extremity MRI 05/29/17 11:04 IMPRESSION: Increasing marrow edema with enhancement of the calcaneus and cuboid in region of large soft tissue defect consistent with osteomyelitis. Advanced arthrosis of the foot and ankle consistent with Charcot arthropathy. Electronically Signed: Morgan Gonzalez MD at 16:36 EDT , Service support , Medical Necessity - Tobacco Use Smoking Status: Former smoker Tobacco Use: Non-smoker Assessment/Plan The patient is a 62 year old M with a hx of charcot foot BL, T2DM, right foot s/ p TMA, left foot with nonhealing wounds and osteomyelitis, PETRA, HTN, HLD, anxiety and depression, morbid obesity, who presents to the ER from the wound care center as his nonhealing left foot wound that has worsened over the past week. He has been following with infectious disease, Dr. Yanes, and Dr. Rodriguez for this wound since last admission. He was admitted in March for this wound which at the time grew MRSA and he was treated with IV vanc, clinda, and levaquin, transitioned to home IV vancomycin. He was also on home IV antibiotics in January and February after which the wound came back leading to that admission. It is noted on the discharge summary in March that an amputation was being considered however there were insurance issues. The patient states he was doing well until the IV vancomycin was completed 1 week ago. At that point he began having more erythema, foul odor, swelling, and much more pain in the left foot. He had a wound vac on that was being changed 3 x per week and he saw the wound nurse in the wound center to have this changed today, prompting him to be sent over. He states he has felt feverish for about 1 week off and on as well, however does not have a fever here in the ER. He also has noticed increased cough with sputum production and mild SOB for the last week. He has a negative CXR. Foot xray shows osteomyelitis. 1. Non-healing diabetic left foot wound with chronic osteomyelitis with underling Charcot foot - Consult ID, Dr. Rodriguez (plastic surgery), and Dr. Yanes (podiatry). Patient completed vancomycin treatment, then developed open wound in one week after stopping antibiotics. Foot XRay with osteomyelitis. MRI is also suggestive of osteomyelitis. Started on Vancomycin and Zosyn empirically. S/P debridement of heel per Dr. Rodriguez on 05/30. Wound CX on 05/28/17 (on admission): protesus mirabilis and MRSA. Surgical specimen deep wound: proteus sp. bone specimen: proteus mirabilis and Staph A. Sensitivity for staph is pending. Blood culture no growth to date (from 05/28/17). Plan for abx treatment for about one month, then proceed with BKA per Dr. Rodriguez. Await final culture result for abx plan. Increase PO oxycodone 5 mg to 10 mg po q6h prn (06/01). 2. Charcot foot RLE s/p TMA. Appears well healed. 3. Chronic iron deficiency anemia - see iron studies from [facility]. Start PO iron. Will recheck iron panel + retic panel. 4. T2DM with peripheral neuropathy, obesity - hold orals. Continue insulin as ordered at home + SSI. Provider Network Analyst eval. 5. HTN - continue losartan, hold diuretics. 6. Anx/Dep - home meds 7. PETRA - continue CPAP 8. HLD - statin 9. Chronic pain syndrome. on home morphine PO + oxycodone po. Hydromorphone IV added aslo. DVT ppx: lovenox GI prophylaxis: PPI po. Pt. is full code. DC planning: PTOT evals. May need PICC line depending on need for abx. Code Visit Inpatient E&M: 72266 Subs Hosp L2
[2017-06-01 14:53] VITALS: BP 171/63; PULSE 80; RESP 20; TEMP 36.8; O2SAT 98
[2017-06-01 19:10] LABS: Bedside Glucose 186 mg/dL (70-110)
[2017-06-01 20:42] VITALS: BP 176/62; PULSE 76; RESP 18; TEMP 36.9; O2SAT 97
--- NOTE | 2017-06-01 22:24 | PCM.PN.SRG ---
Subjective: Postop #2 Patient is resting comfortably. VAC in place. - Physical Exam General: Alert, Oriented x3 HEENT: PERRLA, EOMI Neck: Supple Lungs: Clear to auscultation Cardiovascular: Regular rate, Regular Rhythm Abdomen: Soft, Non-Distended Extremities: No clubbing, No cyanosis, Diminished Peripheral Pulses, Edema - mild edema left lower extremity. Skin: Ulcer/ Wound - VAC in place left foot. Minimal drainage in the canister. Neurological: Cranial nerves II-XII grossly intact Psych/Mental Status: Normal Affect, Appropriate Vital Signs Temp Pulse Resp BP Pulse Ox 98.4 F 76 18 176/62 H 97 06/01/17 20:42 06/01/17 20:42 06/01/17 20:42 06/01/17 20:42 06/01/17 20:42 Oxygen Flow Rate (L/min) 2 Oxygen Delivery Method Room Air Weight: 338 lb 13.608 oz Body Mass Index (BMI) 42.3 Intake and Output for Last 24 Hours 05/30/17 05/31/17 06/01/17 23:59 23:59 23:59 Intake Total 1423.4 / 1423.4 5220 / 5220 3290.6 / 3290.6 Output Total 3525 / 3525 2800 / 2800 3400 / 3400 Balance -2101.6 / -2101.6 2420 / 2420 -109.4 / -109.4 Microbiology Past 72 Hours 05/30/17 Unknown Gram Stain - Final Tissue - Left Foot Wound Culture - Preliminary Proteus mirabilis Staphylococcus aureus 05/30/17 Unknown Gram Stain - Final Bone - Left Foot Wound Culture - Preliminary Proteus mirabilis Staphylococcus species Pathology - pending. POC Glucose 06/01/17 06/01/17 06/01/17 17:12 11:51 08:08 POC Glucose 186 H 242 H 131 H Medical Necessity - Tobacco Use Smoking Status: Former smoker Tobacco Use: Non-smoker Assessment/Plan ASSESSMENT 1. Nonhealing diabetic ulcer left plantar foot with infection. 2. Nonhealing diabetic ulcer left medial foot with infection. 3. Osteomyelitis. 4. Diabetes mellitus. 5. MRSA. 6. Charcot foot neuropathic osteoarthropathy. 7. Former smoker. 8. Anemia of chronic disease, stable. PLAN Wound is stable. VAC in place. Minimal drainage in the canister. Continue Vancomycin and Zosyn. Operative culture showed MRSA and Proteus mirabilis. Pathology is pending. After infection is under control and after swelling has stabilized, will discuss eventual amputation with the patient. Tentatively next month. Will place PICC line prior to discharge. Hgb stable after surgery to 8.2. Getting Iron supplementation. Would need preop PRBC at the time of the amputation. Prealbumin is 18.4. Encourage nutritional supplementation with protein to help the healing process.
[2017-06-01] MEDS: Atorvastatin Calcium 20 MG Tablet PO (22:35)
[2017-06-01] MEDS: 0.9% NaCl Peripheral Flush Adult/Peds IV (22:36)
[2017-06-01 22:51] LABS: Bedside Glucose 268 mg/dL (70-110)
[2017-06-02 02:32] VITALS: BP 162/70; PULSE 79; RESP 18; TEMP 36.8; O2SAT 95
[2017-06-02] MEDS: oxyCODONE 5 MG Tablet 10 MG PO ×3 (02:38→19:56)
[2017-06-02] MEDS: morphine SR 15 MG Tablet PO ×3 (06:05→22:38)
[2017-06-02] MEDS: Enoxaparin 40 MG/0.4 ML Syringe SC (06:05)
[2017-06-02 06:06] LABS: Hematocrit 27.5 % (40-54); Hemoglobin 8.3 g/dl (13.0-16.5); Mean Corp Hgb Conc 30.2 g/gl (32-36); Mean Corpuscular Hgb 25.5 pg (27.0-32.0); Mean Corpuscular Volume 84.6 fL (80-94); Mean Platelet Vol. 8.5 fl (6.2-12.0); Platelet Count 380 K/mm3 (150-450); RBC Distribution Width CV 15.4 % (11.6-14.6); RBC Distribution Width SD 47.5 fl (35.1-43.9); Red Blood Count 3.25 M/mm3 (4.6-6.2); White Blood Count 6.8 K/mm3 (4.4-11.0)
[2017-06-02 06:17] LABS: Anion Gap 7 (5-15); BUN 23 mg/dL (7-18); BUN/Creat Ratio 20.5 RATIO (10-20); Calcium,Total 8.9 mg/dL (8.5-10.1); Chloride 101 mmol/L (98-107); Creatinine, Serum 1.12 mg/dL (0.70-1.30); EST Glomerular Filtration Rate 71 mL/min (>60); Est Glom Filt Rate - Afr Amer 86 mL/min (>60); Estimated Creatinine Clearance 82.78 ml/min; Glucose 203 mg/dL (74-106); Potassium 4.4 mmol/L (3.5-5.1); Sodium Level 137 mmol/L (136-145)
[2017-06-02 06:32] LABS: Scan Indicated on CBC? Y/N NO
[2017-06-02 07:44] VITALS: BP 143/84; PULSE 80; RESP 16; TEMP 36.9; O2SAT 94
[2017-06-02 07:51] LABS: Bedside Glucose 209 mg/dL (70-110)
[2017-06-02] MEDS: Ferrous Sulfate 325 MG Tablet PO ×2 (07:58→18:15)
--- NOTE | 2017-06-02 08:49 | NURSING ---
[facility] called at this time to notify of order for PICC line.
--- NOTE | 2017-06-02 08:51 | PCA ---
TC received from [facility] RN, regarding ETA for PICC line, stated an RN will be at this facility between 1100 and 1200. Notified primary RN Ovidio and charge nurse Mary Jo.
--- NOTE | 2017-06-02 09:26 | PN_ITS ---
Subjective: Chief complaint: Follow-up after admission for nonhealing diabetic left foot ulcer/wound with chronic osteomyelitis and underlying Charcot foot. Patient seen and examined. No acute events overnight. He complained of right foot pain, 8 out of 10 in severity. This is chronic. He denies any other complaints. Blood pressure slightly elevated, other vital signs are stable. - Physical Exam General: Alert, Oriented x3, Cooperative, No apparent distress HEENT: Atraumatic, PERRLA, EOMI Oral: Moist Mucosa, No Gingival or Mucosal Lesions/ Ulcerations Neck: Supple, No JVD, Negative Carotid Bruits, Trachea Midline, Thyroid Normal Size and Texture Lungs: Clear to auscultation, No rhonchi, No wheeze, No rales, Diminished Cardiovascular: Regular rate, Regular Rhythm, Normal S1, Normal S2, PMI Normal Abdomen: Bowel Sounds Present, Soft, Non Tender, Non-Distended, No Hepato- splenomegaly, Obese Extremities: No clubbing, No cyanosis, No edema Skin: No rashes, Ulcer/ Wound Lymphatic: No Cervical, Supraclavicular, or Inguinal Adenopathy Neurological: Cranial nerves II-XII grossly intact, Motor Exam 5/5 strength throughout Psych/Mental Status: Normal Affect, Appropriate, Alert and oriented to time, place, person, mood and affect Vital Signs Temp Pulse Resp BP Pulse Ox 98.4 F 80 16 143/84 H 94 06/02/17 07:44 06/02/17 07:44 06/02/17 07:44 06/02/17 07:44 06/02/17 07:44 Oxygen Flow Rate (L/min) 2 Oxygen Delivery Method Room Air Weight: 338 lb 13.608 oz Body Mass Index (BMI) 42.3 Intake and Output for Last 24 Hours 05/31/17 06/01/17 06/02/17 23:59 23:59 23:59 Intake Total 5220 / 5220 4467.6 / 4467.6 1087.4 / 1087.4 Output Total 2800 / 2800 4000 / 4000 2600 / 2600 Balance 2420 / 2420 467.6 / 467.6 -1512.6 / -1512.6 Microbiology Past 72 Hours 05/30/17 Unknown Gram Stain - Final Bone - Left Foot Wound Culture - Final Proteus mirabilis Staphylococcus epidermidis 05/30/17 Unknown Gram Stain - Final Tissue - Left Foot Wound Culture - Preliminary Proteus mirabilis Staphylococcus aureus Laboratory Tests Past 24 Hrs 06/02/17 06/02/17 05:23 05:23 WBC 6.8 RBC 3.25 L Hgb 8.3 L Hct 27.5 L MCV 84.6 MCH 25.5 L MCHC 30.2 L RDW 15.4 H RDW Differential 47.5 H Plt Count 380 MPV 8.5 Sodium 137 Potassium 4.4 Chloride 101 Carbon Dioxide 29.0 Anion Gap 7 BUN 23 H Creatinine 1.12 Estim Creat Clear Calc 82.78 Est GFR (MDRD) Af Amer 86 Est GFR (MDRD) Non-Af 71 BUN/Creatinine Ratio 20.5 H Glucose 203 H Calcium 8.9 POC Glucose 06/02/17 06/01/17 06/01/17 07:42 22:31 17:12 POC Glucose 209 H 268 H 186 H 06/01/17 11:51 POC Glucose 242 H Medical Necessity - Tobacco Use Smoking Status: Former smoker Tobacco Use: Non-smoker Assessment/Plan This is a 62 years old male patient admitted because of nonhealing left foot wound, found to have nonhealing diabetic left foot wound/ulcer with chronic osteomyelitis and underlying Charcot foot status post surgery. 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 Postoperative day 3. Today, antibiotic adjusted by infectious disease, started on IV Rocephin and oral Flagyl, continued on IV vancomycin. Vital signs have been stable, afebrile. Wound culture revealed MRSA and Proteus mirabilis, repeat culture from the left foot is pending. Blood culture showed no growth in 48 hours. Infectious disease and plastic surgery on the case. Plan: Continue same treatment. #2 right Charcot foot: Status post transmetatarsal amputation, well-healed. Stable. #3 type 2 diabetes mellitus: He is on Levemir insulin twice daily as well as sliding scale and pre-meal NovoLog. Blood sugar has been under reasonable control. #4 hypertension: Blood pressure has been slightly elevated, fluctuating. Continue losartan. #5 anxiety/depression: Continue Wellbutrin, Celexa. #6 hyperlipidemia: Continue statins. #7 obstructive sleep apnea: Continue CPAP. #8 chronic pain syndrome: Continue OxyIR, MS Contin and IV hydromorphone as needed. #9 chronic anemia: Hemoglobin stable at baseline, no evidence of active bleeding , continue iron supplement. #10 DVT prophylaxis: Subcu Lovenox. This note was generated with [employer] dictation software. It may contain incorrect words, spelling, and punctuation that were not noted in checking the note before signing. Code Visit Inpatient E&M: 82279 Subs Hosp L2
--- NOTE | 2017-06-02 10:48 | NURSING ---
wound photo: left plantar foot
--- NOTE | 2017-06-02 10:49 | NURSING ---
wound photo: left medial foot
[2017-06-02] MEDS: Gabapentin 400 MG Capsule 800 MG PO ×4 (10:51→22:38)
[2017-06-02] MEDS: Citalopram 40 MG TABLET PO (10:51)
[2017-06-02] MEDS: Losartan Potassium 100 MG Tablet PO (10:51)
[2017-06-02] MEDS: buPROPion (XL) 150 MG TABLET.XL PO (10:51)
[2017-06-02] MEDS: Pantoprazole Sodium 20 MG Tablet PO (10:51)
[2017-06-02] MEDS: Glucerna Shake 120 ML LIQUID PO ×4 (10:52→22:38)
[2017-06-02] MEDS: 0.9% NaCl Peripheral Flush Adult/Peds IV (10:52)
--- NOTE | 2017-06-02 11:43 | CASEMGMT ---
Social Work Note Per MARY Lux, pt may need placement at discharge. MARY Lux states that she talked to pt regarding SNF verse home with IV antibiotics and pt may be interested in placement. SW provide pt with list of SNF in network with pt's insurance. This worker will check back with pt as time allows to determine discharge plans. Plan: SNF verse home with IV antibiotics. Conchita Elliott TECHNICAL ARTIST, PROJECT/PRODUCTION MANAGER IMAGING
[2017-06-02 12:00] LABS: Bedside Glucose 222 mg/dL (70-110)
--- NOTE | 2017-06-02 12:12 | PCM.PN.ID ---
Subjective: Feeling ok, no fever, no pain in foot. No n/v/d. - Physical Exam General: Alert, Cooperative Lungs: Clear to auscultation, Normal air movement Cardiovascular: Regular rate, Regular Rhythm Abdomen: Soft, Non Tender, Non-Distended Extremities: Edema Skin: Ulcer/ Wound - foot wrapped, reviewed photos Vital Signs Temp Pulse Resp BP Pulse Ox 98.4 F 80 16 143/84 H 94 06/02/17 07:44 06/02/17 07:44 06/02/17 07:44 06/02/17 07:44 06/02/17 07:44 Oxygen Flow Rate (L/min) 2 Oxygen Delivery Method Room Air Weight: 153.7 kg Body Mass Index (BMI) 42.3 Intake and Output for Last 24 Hours 05/31/17 06/01/17 06/02/17 23:59 23:59 23:59 Intake Total 5220 / 5220 4467.6 / 4467.6 1087.4 / 1087.4 Output Total 2800 / 2800 4000 / 4000 2600 / 2600 Balance 2420 / 2420 467.6 / 467.6 -1512.6 / -1512.6 Microbiology Past 72 Hours 05/30/17 Unknown Gram Stain - Final Tissue - Left Foot Wound Culture - Preliminary Proteus mirabilis Staphylococcus aureus Anaerobic Culture - Preliminary Checking for anaerobes, further studies to follow. 05/30/17 Unknown Gram Stain - Final Bone - Left Foot Wound Culture - Final Proteus mirabilis Staphylococcus epidermidis Anaerobic Culture - Preliminary Checking for anaerobes, further studies to follow. Laboratory Tests Past 24 Hrs 06/02/17 06/02/17 05:23 05:23 WBC 6.8 RBC 3.25 L Hgb 8.3 L Hct 27.5 L MCV 84.6 MCH 25.5 L MCHC 30.2 L RDW 15.4 H RDW Differential 47.5 H Plt Count 380 MPV 8.5 Sodium 137 Potassium 4.4 Chloride 101 Carbon Dioxide 29.0 Anion Gap 7 BUN 23 H Creatinine 1.12 Estim Creat Clear Calc 82.78 Est GFR (MDRD) Af Amer 86 Est GFR (MDRD) Non-Af 71 BUN/Creatinine Ratio 20.5 H Glucose 203 H Calcium 8.9 POC Glucose 06/02/17 06/02/17 06/01/17 11:45 07:42 22:31 POC Glucose 222 H 209 H 268 H 06/01/17 06/01/17 17:12 11:51 POC Glucose 186 H 242 H Medical Necessity - Tobacco Use Smoking Status: Former smoker Tobacco Use: Non-smoker Route of nutrition/ use of supplements: [] Nutritional Intake: [] IV Site: [] Tam Catheter: [] - Assessment/Plan Antibiotics: [] Assessment/Plan: [] L heel MRSA osteo - xray showed worsened bone in the area. Surgery and podiatry consulted. Wound cx and surg cx from Dr. Rodriguez 05/30 with MRSA, proteus, staph epi. Narrow abx to vanc, ceftriaxone, po flagyl. Picc ordered. Plan on 4-6 weeks of iv abx until taken for amputation. Weekly bmp, cbc, esr, and vanc trough while on iv abx. He has tolerated keflex in past, will monitor for issues with ceftriaxone. Will follow, d/w director of casework
[2017-06-02] MEDS: metroNIDAZOLE 500 MG Tablet PO ×2 (14:19→22:38)
[2017-06-02] MEDS: Acetaminophen 325 MG Tablet 650 MG PO ×2 (14:38→22:38)
[2017-06-02 14:41] VITALS: BP 175/74; PULSE 81; RESP 16; TEMP 36.7; O2SAT 97
--- NOTE | 2017-06-02 15:47 | CASEMGMT ---
Social Work Note SW in to see pt to follow up with discharge planning. Per pt he is agreeable to SNF placement at discharge. Pt states he would like to try [facility] first and then [facility]CU second. SW informed pt that this worker will have to make the referral and then wait for pre-cert from insurance for pt before he can discharge. Pt states understanding. SW faxed referral to SW. SW placed call to [facility] and spoke with Lavinia to inform her of referral. SW will continue to follow along and assist with discharge planning. Plan: [facility] pending acceptance from facility Conchita Elliott SENIOR PRINCIPAL, LABORER [employer]INE TER[employer]
[2017-06-02 16:36] LABS: Bedside Glucose 227 mg/dL (70-110)
[2017-06-02 19:47] VITALS: BP 165/79; PULSE 79; RESP 18; TEMP 36.9; O2SAT 100
[2017-06-02] MEDS: Atorvastatin Calcium 20 MG Tablet PO (22:38)
[2017-06-02 22:50] LABS: Bedside Glucose 138 mg/dL (70-110)
[2017-06-03] MEDS: oxyCODONE 5 MG Tablet 10 MG PO ×2 (01:06→17:27)
[2017-06-03] MEDS: 0.9% NaCl Peripheral Flush Adult/Peds IV ×2 (01:07→20:20)
[2017-06-03] MEDS: 0.9% NaCl IVPB Med Flush (250 mL) 15 ML IV (01:07)
[2017-06-03 01:15] VITALS: BP 147/62; PULSE 80; RESP 18; TEMP 36.6; O2SAT 100
[2017-06-03 06:03] LABS: Hematocrit 27.1 % (40-54); Hemoglobin 8.2 g/dl (13.0-16.5); Mean Corp Hgb Conc 30.3 g/gl (32-36); Mean Corpuscular Hgb 26.1 pg (27.0-32.0); Mean Corpuscular Volume 86.3 fL (80-94); Mean Platelet Vol. 8.7 fl (6.2-12.0); Platelet Count 388 K/mm3 (150-450); RBC Distribution Width CV 15.2 % (11.6-14.6); RBC Distribution Width SD 45.3 fl (35.1-43.9); Red Blood Count 3.14 M/mm3 (4.6-6.2); White Blood Count 6.4 K/mm3 (4.4-11.0)
[2017-06-03 06:09] LABS: Scan Indicated on CBC? Y/N NO
[2017-06-03 06:25] LABS: Anion Gap 6 (5-15); BUN 25 mg/dL (7-18); BUN/Creat Ratio 22.3 RATIO (10-20); Calcium,Total 9.1 mg/dL (8.5-10.1); Chloride 103 mmol/L (98-107); Creatinine, Serum 1.12 mg/dL (0.70-1.30); EST Glomerular Filtration Rate 71 mL/min (>60); Est Glom Filt Rate - Afr Amer 86 mL/min (>60); Estimated Creatinine Clearance 82.78 ml/min; Glucose 148 mg/dL (74-106); Potassium 4.1 mmol/L (3.5-5.1); Sodium Level 139 mmol/L (136-145)
[2017-06-03] MEDS: metroNIDAZOLE 500 MG Tablet PO ×3 (06:45→23:09)
[2017-06-03] MEDS: morphine SR 15 MG Tablet PO ×3 (06:46→23:09)
[2017-06-03] MEDS: Enoxaparin 40 MG/0.4 ML Syringe SC (06:46)
[2017-06-03 06:48] VITALS: BP 153/69; PULSE 80; RESP 18; TEMP 36.4; O2SAT 100
[2017-06-03 07:45] VITALS: O2SAT 94
[2017-06-03] MEDS: Ferrous Sulfate 325 MG Tablet PO ×2 (08:13→17:26)
[2017-06-03 08:28] VITALS: BP 155/81; PULSE 79; RESP 16; TEMP 36.6; O2SAT 97
[2017-06-03 08:41] LABS: Bedside Glucose 174 mg/dL (70-110)
--- NOTE | 2017-06-03 08:46 | PCM.PROGNOTE ---
Subjective: Chief complaint: Follow-up after admission for nonhealing diabetic left foot ulcer/wound with chronic osteomyelitis and underlying Charcot foot. Patient seen and examined. No acute events overnight. Right foot pain is manageable with current pain medication regimen. He denies any new complaints. Vital signs are stable, afebrile. - Physical Exam General: Alert, Oriented x3, Cooperative, No apparent distress HEENT: Atraumatic, PERRLA, EOMI Oral: Moist Mucosa, No Gingival or Mucosal Lesions/ Ulcerations Neck: Supple, No JVD, Negative Carotid Bruits, Trachea Midline, Thyroid Normal Size and Texture Lungs: Clear to auscultation, No rhonchi, No wheeze, No rales, Diminished Cardiovascular: Regular rate, Regular Rhythm, Normal S1, Normal S2, PMI Normal Abdomen: Bowel Sounds Present, Soft, Non Tender, Non-Distended, No Hepato-splenomegaly, Obese Extremities: No clubbing, No cyanosis, No edema Skin: No rashes, Ulcer/ Wound Neurological: Cranial nerves II-XII grossly intact, Neuro grossly intact Psych/Mental Status: Normal Affect, Appropriate, Alert and oriented to time, place, person, mood and affect Vital Signs Temp Pulse Resp BP Pulse Ox 97.9 F 79 16 155/81 H 97 06/03/17 08:28 06/03/17 08:28 06/03/17 08:28 06/03/17 08:28 06/03/17 08:28 Oxygen Flow Rate (L/min) 2 Oxygen Delivery Method Room Air Weight: 338 lb 13.608 oz Body Mass Index (BMI) 42.3 Intake and Output for Last 24 Hours 06/01/17 06/02/17 06/03/17 23:59 23:59 23:59 Intake Total 4467.6 / 4467.6 1087.4 / 1087.4 2252 / 2252 Output Total 4000 / 4000 2600 / 2600 1375 / 1375 Balance 467.6 / 467.6 -1512.6 / -1512.6 877 / 877 Microbiology Past 72 Hours 05/30/17 Unknown Gram Stain - Final Tissue - Left Foot Wound Culture - Final Proteus mirabilis Meth. resistant Staph. aureus Anaerobic Culture - Preliminary Checking for anaerobes, further studies to follow. 05/30/17 Unknown Gram Stain - Final Bone - Left Foot Wound Culture - Final Proteus mirabilis Staphylococcus epidermidis Anaerobic Culture - Preliminary Checking for anaerobes, further studies to follow. Laboratory Tests Past 24 Hrs 06/03/17 06/03/17 05:48 05:48 WBC 6.4 RBC 3.14 L Hgb 8.2 L Hct 27.1 L MCV 86.3 MCH 26.1 L MCHC 30.3 L RDW 15.2 H RDW Differential 45.3 H Plt Count 388 MPV 8.7 Sodium 139 Potassium 4.1 Chloride 103 Carbon Dioxide 30.0 Anion Gap 6 BUN 25 H Creatinine 1.12 Estim Creat Clear Calc 82.78 Est GFR (MDRD) Af Amer 86 Est GFR (MDRD) Non-Af 71 BUN/Creatinine Ratio 22.3 H Glucose 148 H Calcium 9.1 POC Glucose 06/03/17 06/02/17 06/02/17 08:09 22:36 16:27 POC Glucose 174 H 138 H 227 H 06/02/17 11:45 POC Glucose 222 H Medical Necessity - Tobacco Use Smoking Status: Former smoker Tobacco Use: Non-smoker Assessment/Plan This is a 62 years old male patient admitted because of nonhealing left foot wound, found to have nonhealing diabetic left foot wound/ulcer with chronic osteomyelitis and underlying Charcot foot status post surgery. 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 Postoperative day 4. He is on IV Rocephin, vancomycin and oral Flagyl. Vital signs have been stable, afebrile. Wound culture revealed MRSA and Proteus mirabilis, repeat culture from the left foot also revealed Proteus mirabilis and MRSA.. Blood culture showed no growth in 5 days. Infectious disease and plastic surgery on the case. Plan: Continue same treatment, awaiting insurance approval for discharge to half-way facility. Plan is to keep patient on IV antibiotics for 4-6 weeks until taken for amputation. #2 right Charcot foot: Status post transmetatarsal amputation, well-healed. Stable. #3 type 2 diabetes mellitus: He is on Levemir insulin twice daily as well as sliding scale and pre-meal NovoLog. Blood sugar has been under reasonable control. #4 hypertension: Blood pressure under better control. Continue losartan. #5 anxiety/depression: Continue Wellbutrin, Celexa. #6 hyperlipidemia: Continue statins. #7 obstructive sleep apnea: Continue CPAP. #8 chronic pain syndrome: Continue OxyIR, MS Contin and IV hydromorphone as needed. #9 chronic anemia: Hemoglobin stable at baseline, no evidence of active bleeding, continue iron supplement. #10 DVT prophylaxis: Subcu Lovenox. This note was generated with [employer] dictation software. It may contain incorrect words, spelling, and punctuation that were not noted in checking the note before signing. Code Visit Inpatient E&M: 48546 Subs Hosp L2
--- NOTE | 2017-06-03 08:50 | PN_ITS ---
Subjective: Chief complaint: Follow-up after admission for nonhealing diabetic left foot ulcer/wound with chronic osteomyelitis and underlying Charcot foot. Patient seen and examined. No acute events overnight. Right foot pain is manageable with current pain medication regimen. He denies any new complaints. Vital signs are stable, afebrile. - Physical Exam General: Alert, Oriented x3, Cooperative, No apparent distress HEENT: Atraumatic, PERRLA, EOMI Oral: Moist Mucosa, No Gingival or Mucosal Lesions/ Ulcerations Neck: Supple, No JVD, Negative Carotid Bruits, Trachea Midline, Thyroid Normal Size and Texture Lungs: Clear to auscultation, No rhonchi, No wheeze, No rales, Diminished Cardiovascular: Regular rate, Regular Rhythm, Normal S1, Normal S2, PMI Normal Abdomen: Bowel Sounds Present, Soft, Non Tender, Non-Distended, No Hepato- splenomegaly, Obese Extremities: No clubbing, No cyanosis, No edema Skin: No rashes, Ulcer/ Wound Neurological: Cranial nerves II-XII grossly intact, Neuro grossly intact Psych/Mental Status: Normal Affect, Appropriate, Alert and oriented to time, place, person, mood and affect Vital Signs Temp Pulse Resp BP Pulse Ox 97.9 F 79 16 155/81 H 97 06/03/17 08:28 06/03/17 08:28 06/03/17 08:28 06/03/17 08:28 06/03/17 08:28 Oxygen Flow Rate (L/min) 2 Oxygen Delivery Method Room Air Weight: 338 lb 13.608 oz Body Mass Index (BMI) 42.3 Intake and Output for Last 24 Hours 06/01/17 06/02/17 06/03/17 23:59 23:59 23:59 Intake Total 4467.6 / 4467.6 1087.4 / 1087.4 2252 / 2252 Output Total 4000 / 4000 2600 / 2600 1375 / 1375 Balance 467.6 / 467.6 -1512.6 / -1512.6 877 / 877 Microbiology Past 72 Hours 05/30/17 Unknown Gram Stain - Final Tissue - Left Foot Wound Culture - Final Proteus mirabilis Meth. resistant Staph. aureus Anaerobic Culture - Preliminary Checking for anaerobes, further studies to follow. 05/30/17 Unknown Gram Stain - Final Bone - Left Foot Wound Culture - Final Proteus mirabilis Staphylococcus epidermidis Anaerobic Culture - Preliminary Checking for anaerobes, further studies to follow. Laboratory Tests Past 24 Hrs 06/03/17 06/03/17 05:48 05:48 WBC 6.4 RBC 3.14 L Hgb 8.2 L Hct 27.1 L MCV 86.3 MCH 26.1 L MCHC 30.3 L RDW 15.2 H RDW Differential 45.3 H Plt Count 388 MPV 8.7 Sodium 139 Potassium 4.1 Chloride 103 Carbon Dioxide 30.0 Anion Gap 6 BUN 25 H Creatinine 1.12 Estim Creat Clear Calc 82.78 Est GFR (MDRD) Af Amer 86 Est GFR (MDRD) Non-Af 71 BUN/Creatinine Ratio 22.3 H Glucose 148 H Calcium 9.1 POC Glucose 06/03/17 06/02/17 06/02/17 08:09 22:36 16:27 POC Glucose 174 H 138 H 227 H 06/02/17 11:45 POC Glucose 222 H Medical Necessity - Tobacco Use Smoking Status: Former smoker Tobacco Use: Non-smoker Assessment/Plan This is a 62 years old male patient admitted because of nonhealing left foot wound, found to have nonhealing diabetic left foot wound/ulcer with chronic osteomyelitis and underlying Charcot foot status post surgery. 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 Postoperative day 4. He is on IV Rocephin, vancomycin and oral Flagyl. Vital signs have been stable, afebrile. Wound culture revealed MRSA and Proteus mirabilis, repeat culture from the left foot also revealed Proteus mirabilis and MRSA.. Blood culture showed no growth in 5 days. Infectious disease and plastic surgery on the case. Plan: Continue same treatment, awaiting insurance approval for discharge to alf facility. Plan is to keep patient on IV antibiotics for 4-6 weeks until taken for amputation. #2 right Charcot foot: Status post transmetatarsal amputation, well-healed. Stable. #3 type 2 diabetes mellitus: He is on Levemir insulin twice daily as well as sliding scale and pre-meal NovoLog. Blood sugar has been under reasonable control. #4 hypertension: Blood pressure under better control. Continue losartan. #5 anxiety/depression: Continue Wellbutrin, Celexa. #6 hyperlipidemia: Continue statins. #7 obstructive sleep apnea: Continue CPAP. #8 chronic pain syndrome: Continue OxyIR, MS Contin and IV hydromorphone as needed. #9 chronic anemia: Hemoglobin stable at baseline, no evidence of active bleeding , continue iron supplement. #10 DVT prophylaxis: Subcu Lovenox. This note was generated with [employer] dictation software. It may contain incorrect words, spelling, and punctuation that were not noted in checking the note before signing. Code Visit Inpatient E&M: 35925 Subs Hosp L2
--- NOTE | 2017-06-03 09:43 | PCM.PN.SRG ---
Subjective: Postop #4 Patient is resting comfortably. - Physical Exam General: Alert, Oriented x3 HEENT: PERRLA, EOMI Neck: Supple Lungs: Clear to auscultation Cardiovascular: Regular rate, Regular Rhythm Abdomen: Soft, Non-Distended Extremities: No clubbing, No cyanosis, Diminished Peripheral Pulses, Edema - mild edema in left lower extremity. Skin: Ulcer/ Wound - VAc in place. Minimal drainage in canister. Neurological: Cranial nerves II-XII grossly intact Psych/Mental Status: Normal Affect, Appropriate Vital Signs Temp Pulse Resp BP Pulse Ox 97.9 F 79 16 155/81 H 97 06/03/17 08:28 06/03/17 08:28 06/03/17 08:28 06/03/17 08:28 06/03/17 08:28 Oxygen Flow Rate (L/min) 2 Oxygen Delivery Method Room Air Weight: 338 lb 13.608 oz Body Mass Index (BMI) 42.3 Intake and Output for Last 24 Hours 06/01/17 06/02/17 06/03/17 23:59 23:59 23:59 Intake Total 4467.6 / 4467.6 1087.4 / 1087.4 2252 / 2252 Output Total 4000 / 4000 2600 / 2600 1375 / 1375 Balance 467.6 / 467.6 -1512.6 / -1512.6 877 / 877 Microbiology Past 72 Hours 05/30/17 Unknown Gram Stain - Final Tissue - Left Foot Wound Culture - Final Proteus mirabilis Meth. resistant Staph. aureus Anaerobic Culture - Preliminary Checking for anaerobes, further studies to follow. 05/30/17 Unknown Gram Stain - Final Bone - Left Foot Wound Culture - Final Proteus mirabilis Staphylococcus epidermidis Anaerobic Culture - Preliminary Checking for anaerobes, further studies to follow. Pathology - pending. Laboratory Tests Past 24 Hrs 06/03/17 06/03/17 05:48 05:48 WBC 6.4 RBC 3.14 L Hgb 8.2 L Hct 27.1 L MCV 86.3 MCH 26.1 L MCHC 30.3 L RDW 15.2 H RDW Differential 45.3 H Plt Count 388 MPV 8.7 Sodium 139 Potassium 4.1 Chloride 103 Carbon Dioxide 30.0 Anion Gap 6 BUN 25 H Creatinine 1.12 Estim Creat Clear Calc 82.78 Est GFR (MDRD) Af Amer 86 Est GFR (MDRD) Non-Af 71 BUN/Creatinine Ratio 22.3 H Glucose 148 H Calcium 9.1 POC Glucose 06/03/17 06/02/17 06/02/17 08:09 22:36 16:27 POC Glucose 174 H 138 H 227 H 06/02/17 11:45 POC Glucose 222 H Medical Necessity - Tobacco Use Smoking Status: Former smoker Tobacco Use: Non-smoker Assessment/Plan ASSESSMENT 1. Nonhealing diabetic ulcer left plantar foot with infection. 2. Nonhealing diabetic ulcer left medial foot with infection. 3. Osteomyelitis. 4. Diabetes mellitus. 5. MRSA. 6. Charcot foot neuropathic osteoarthropathy. 7. Former smoker. 8. Anemia of chronic disease, stable. PLAN Wound is stable. VAC in place. Minimal drainage in the canister. Continue Vancomycin. IV Ceftriaxone has been added as well as Flagyl. Operative culture showed MRSA and Proteus mirabilis in the soft tissue and MRSE and Proteus mirabilis in the bone. Pathology is pending. After infection is under control and after swelling has stabilized, will discuss eventual amputation with the patient. Tentatively next month. PICC line has been placed for the IV antibiotics. With the complexity of the wound care and the need for multiple IV antibiotics, it was felt better to continue treatment at an ECF until the amputation. Hgb stable after surgery to 8.2. Getting Iron supplementation. Would need preop PRBC at the time of the amputation. Prealbumin is 18.4. Encourage nutritional supplementation with protein to help the healing process. If patient goes to [facility], [place], he can followup at the Wound Center in a week for continued management until the amputation. If patient goes to [facility], I can followup with him there periodically with no need to go to Wound Center until after the amputation unless he gets discharged from the facility prior to the amputation.
--- NOTE | 2017-06-03 09:48 | CASEMGMT ---
Social Work Note SW received call from Amaris at [facility] stating that they can accept pt and will begin pre-cert today. SW updated Dr. May of this and updated charge nurse Mary Jo of this. Per, Dr. May pt is ready for d/c when pre-cert is obtained. RANDY will continue to follow along to assist with discharge planning. Plan: [facility] pending pre-cert Conchita Elliott DANCING MASTER, BILINGUAL SALES CONSULTANT
[2017-06-03] MEDS: Citalopram 40 MG TABLET PO (10:37)
[2017-06-03] MEDS: Losartan Potassium 100 MG Tablet PO (10:37)
[2017-06-03] MEDS: Glucerna Shake 120 ML LIQUID PO ×4 (10:37→23:13)
[2017-06-03] MEDS: buPROPion (XL) 150 MG TABLET.XL PO (10:37)
[2017-06-03] MEDS: Pantoprazole Sodium 20 MG Tablet PO (10:37)
[2017-06-03] MEDS: Gabapentin 400 MG Capsule 800 MG PO ×4 (10:37→23:08)
--- NOTE | 2017-06-03 11:18 | PCM.PN.ID ---
Subjective: No fever, no rash with abx. - Physical Exam General: No apparent distress Lungs: Clear to auscultation, Normal air movement Cardiovascular: Regular rate, Regular Rhythm Abdomen: Soft, Non Tender, Non-Distended Skin: No rashes, Incision - foot wrapped Vital Signs Temp Pulse Resp BP Pulse Ox 97.9 F 79 16 155/81 H 97 06/03/17 08:28 06/03/17 08:28 06/03/17 08:28 06/03/17 08:28 06/03/17 08:28 Oxygen Flow Rate (L/min) 2 Oxygen Delivery Method Room Air Weight: 153.7 kg Body Mass Index (BMI) 42.3 Intake and Output for Last 24 Hours 06/01/17 06/02/17 06/03/17 23:59 23:59 23:59 Intake Total 4467.6 / 4467.6 1087.4 / 1087.4 2252 / 2252 Output Total 4000 / 4000 2600 / 2600 1375 / 1375 Balance 467.6 / 467.6 -1512.6 / -1512.6 877 / 877 Microbiology Past 72 Hours 05/30/17 Unknown Gram Stain - Final Tissue - Left Foot Wound Culture - Final Proteus mirabilis Meth. resistant Staph. aureus Anaerobic Culture - Preliminary Checking for anaerobes, further studies to follow. 05/30/17 Unknown Gram Stain - Final Bone - Left Foot Wound Culture - Final Proteus mirabilis Staphylococcus epidermidis Anaerobic Culture - Preliminary Checking for anaerobes, further studies to follow. Laboratory Tests Past 24 Hrs 06/03/17 06/03/17 05:48 05:48 WBC 6.4 RBC 3.14 L Hgb 8.2 L Hct 27.1 L MCV 86.3 MCH 26.1 L MCHC 30.3 L RDW 15.2 H RDW Differential 45.3 H Plt Count 388 MPV 8.7 Sodium 139 Potassium 4.1 Chloride 103 Carbon Dioxide 30.0 Anion Gap 6 BUN 25 H Creatinine 1.12 Estim Creat Clear Calc 82.78 Est GFR (MDRD) Af Amer 86 Est GFR (MDRD) Non-Af 71 BUN/Creatinine Ratio 22.3 H Glucose 148 H Calcium 9.1 POC Glucose 06/03/17 06/02/17 06/02/17 08:09 22:36 16:27 POC Glucose 174 H 138 H 227 H 04/16/18 11:45 POC Glucose 222 H Medical Necessity - Tobacco Use Smoking Status: Former smoker Tobacco Use: Non-smoker Route of nutrition/ use of supplements: [] Nutritional Intake: [] IV Site: [] Tam Catheter: [] - Assessment/Plan Antibiotics: [] Assessment/Plan: [] L heel MRSA osteo - xray showed worsened bone in the area. Wound cx and surg cx from Dr. Rodriguez 05/30 with MRSA, proteus, staph epi. Narrowed abx to vanc, ceftriaxone, po flagyl. Plan on 4-6 weeks of iv abx until taken for amputation. Weekly bmp, cbc, esr, and vanc trough while on iv abx. He has tolerated keflex in past, will monitor for issues with ceftriaxone. Will follow
[2017-06-03 11:56] LABS: Bedside Glucose 232 mg/dL (70-110)
[2017-06-03 14:17] VITALS: BP 157/70; PULSE 82; RESP 16; TEMP 36.9; O2SAT 100
--- NOTE | 2017-06-03 15:56 | CASEMGMT ---
Social Work Note SW received call from [facility] stating that pt's insurance is wanting updated pt/ot notes. SW faxed updated pt/ot, wound care, and progress notes to [facility]. SW will continue to follow along to assist with discharge planning. Plan: [facility] pending pre-cert Conchita Elliott MSW, CHIEF CONTROLLER TOWER
[2017-06-03 16:50] LABS: Bedside Glucose 244 mg/dL (70-110)
[2017-06-03 20:15] VITALS: BP 136/62; PULSE 75; RESP 16; TEMP 37; O2SAT 100
[2017-06-03] MEDS: Atorvastatin Calcium 20 MG Tablet PO (23:09)
[2017-06-03 23:26] LABS: Bedside Glucose 162 mg/dL (70-110)
[2017-06-04 02:00] VITALS: BP 133/70; PULSE 80; RESP 16; TEMP 36.9; O2SAT 97
[2017-06-04] MEDS: morphine SR 15 MG Tablet PO ×2 (05:31→13:16)
[2017-06-04] MEDS: Enoxaparin 40 MG/0.4 ML Syringe SC (05:31)
[2017-06-04] MEDS: metroNIDAZOLE 500 MG Tablet PO ×2 (05:31→13:16)
[2017-06-04 06:12] LABS: Hematocrit 26.5 % (40-54); Hemoglobin 7.9 g/dl (13.0-16.5); Mean Corp Hgb Conc 29.8 g/gl (32-36); Mean Corpuscular Hgb 25.4 pg (27.0-32.0); Mean Corpuscular Volume 85.2 fL (80-94); Mean Platelet Vol. 8.5 fl (6.2-12.0); Platelet Count 336 K/mm3 (150-450); RBC Distribution Width CV 15.7 % (11.6-14.6); RBC Distribution Width SD 48.5 fl (35.1-43.9); Red Blood Count 3.11 M/mm3 (4.6-6.2); White Blood Count 6.3 K/mm3 (4.4-11.0)
[2017-06-04 06:26] LABS: Anion Gap 7 (5-15); BUN 24 mg/dL (7-18); BUN/Creat Ratio 22.6 RATIO (10-20); Chloride 103 mmol/L (98-107); Creatinine, Serum 1.06 mg/dL (0.70-1.30); EST Glomerular Filtration Rate 76 mL/min (>60); Est Glom Filt Rate - Afr Amer 91 mL/min (>60); Estimated Creatinine Clearance 87.47 ml/min; Glucose 148 mg/dL (74-106); Scan Indicated on CBC? Y/N NO; Sodium Level 140 mmol/L (136-145)
[2017-06-04] MEDS: 0.9% NaCl Peripheral Flush Adult/Peds IV ×2 (08:24→12:54)
[2017-06-04] MEDS: Ferrous Sulfate 325 MG Tablet PO (08:24)
[2017-06-04 08:26] LABS: Bedside Glucose 194 mg/dL (70-110)
[2017-06-04 08:29] VITALS: BP 139/62; PULSE 84; RESP 18; TEMP 36.7; O2SAT 96
[2017-06-04] MEDS: oxyCODONE 5 MG Tablet 10 MG PO (08:37)
[2017-06-04] MEDS: Acetaminophen 325 MG Tablet 650 MG PO (08:37)
[2017-06-04] MEDS: Glucerna Shake 120 ML LIQUID PO (10:19)
[2017-06-04] MEDS: Pantoprazole Sodium 20 MG Tablet PO (10:19)
[2017-06-04] MEDS: Citalopram 40 MG TABLET PO (10:19)
[2017-06-04] MEDS: Gabapentin 400 MG Capsule 800 MG PO ×2 (10:19→13:16)
[2017-06-04] MEDS: Losartan Potassium 100 MG Tablet PO (10:19)
[2017-06-04] MEDS: buPROPion (XL) 150 MG TABLET.XL PO (10:19)
[2017-06-04 10:30] VITALS: PULSE 80
--- NOTE | 2017-06-04 11:10 | CASEMGMT ---
Social Work Note SW received call from Lavinia at [facility] stating that they got pre-cert and they are able to accept pt. RANDY informed Lavinia that pt is ready for discharge and will be coming to facility today. Lavinia is requesting that pt not come till afternoon as they need to order a bariatric bed and it is being delivered in the next two hours. RANDY informed Dr. Corley that pt is able to discharge today. RANDY will fax discharge paperwork to facility when available. SW updated pt that he will be discharging to [facility] today. Pt asked about transportation and this worker explained that transportation can be set up via ambulance/ambulate if pt is interested. Pt asked if he could be transported via his own vehicle and this worker informed him that he is able to go via own transportation if he would like. Pt states that he will be calling a friend to come get him around 2:00. RANDY called Lavinia back and asked if 2:00 will be enough time for them and Lavinia is asking if pt could come at either 2:30 or 3:00. Per pt his transportation is coming around 2:00 but states that he will be at [facility] between 2:30 and 3:00. SW placed call back to Lavinia at [facility] to update her of this. Pt denied additional needs or concerns at this time. Plan: [facility] today Conchita Elliott SENIOR WINDOWS SYSTEMS ADMINISTRATOR, FLOORING HELPER
--- NOTE | 2017-06-04 11:14 | PCM.DC ---
You will use the following diet at home:: Calorie/Carbohydrate Controlled (specify 1200, 1400, etc) - 1800 felipe, Cardiac Your food should be the consistency of: Regular Discharge Activity: Return to Normal Activity Weight Bearing Status: No weight bearing - Nonweightbearing to the left lower extremity. Call your doctor if you observe: Fever of 101 or Higher, Shortness of breath, Dizziness, Fainting spells, Chest pain, Increased palpitations (irregular heartbeat), Uncontrolled pain Additional Instructions: #1 continue antibiotics as prescribed. #2 follow-up with wound care center in 1 week. #3 weekly CBC, BMP, ESR and Vanco trough while on IV antibiotics. Allergies/Adverse Reactions: Allergies cefepime Allergy (Verified 03/06/17 09:46) Hives lisinopril Allergy (Verified 03/06/17 09:46) cough sulfamethoxazole [From Octra] Allergy (Verified 03/06/17 09:46) turned red trimethoprim [From ] Allergy (Verified 03/06/17 09:46) turned red Medications to take at Discharge Insulin Detemir [Levemir FlexPen] 100 units SC BID 10/12/14 Citalopram [Celexa] 40 mg PO DAILY 11/15/14 Metformin HCl [Glucophage] 1,000 mg PO BIDCM 11/15/14 Losartan Potassium [Cozaar] 100 mg PO DAILY 06/05/16 buPROPion XL [Wellbutrin Xl] 150 mg PO DAILY 01/21/17 glimepiride 4 mg tablet 4 mg PO BID tab 01/31/17 Insulin Aspart [Novolog Flexpen] 40 units SC TIDCM 03/24/17 Simvastatin 40 mg PO QHS 03/24/17 Triamterene/Hydrochlorothiazid [Triamterene-Hctz 37.5-25 mg Cp] 1 each PO DAILY 03/24/17 Glucerna Shake 120 ml PO 4X/DAY #30 liquid 03/28/17 Gabapentin [Neurontin] 800 mg PO 4X/DAY 05/28/17 Naproxen [Naprosyn] 500 mg PO BID 05/28/17 Ceftriaxone 2 gm IV Q24 #30 vial 06/04/17 Ferrous Sulfate 325 mg PO BIDCM #60 tab 06/04/17 Metronidazole [Flagyl] 500 mg PO TID #60 tab 04/18/18 Oxycodone [Oxyir] 10 mg PO Q6H PRN PRN 4 Days #14 tab 06/04/17 Vancomycin HCl in 5 % Dextrose [Vancomycin 1.75 Gram/500Ml-D5w] 1.75 gm IV BID #60 plast..bag 06/04/17 morphine SR tablet [Ms Contin] 15 mg PO TID 1 Days #3 tab 06/04/17 The following prescriptions were given: Oxycodone [Oxyir] 10 mg PO Q6H PRN PRN 4 Days #14 tab PRN Reason: Severe Pain (-11/26) Ceftriaxone 2 gm IV Q24 #30 vial Ferrous Sulfate 325 mg PO BIDCM #60 tab Vancomycin HCl in 5 % Dextrose [Vancomycin 1.75 Gram/500Ml-D5w] 1.75 gm IV BID #60 plast..bag Metronidazole [Flagyl] 500 mg PO TID #60 tab morphine SR tablet [Ms Contin] 15 mg PO TID 1 Days #3 tab Primary Care Physician: Orion Cordova [Primary Care Provider] - Please follow up with your Primary Care Physician in: 2 weeks. Please Follow Up With: Lucho Rodriguez MD When: please call his office. Please Follow Up With: Yariel Sanders MD When: 1-2 weeks.
--- NOTE | 2017-06-04 11:18 | DCINST_ITS ---
You will use the following diet at home:: Calorie/Carbohydrate Controlled ( specify 1200, 1400, etc) - 1800 felipe, Cardiac Your food should be the consistency of: Regular Discharge Activity: Return to Normal Activity Weight Bearing Status: No weight bearing - Nonweightbearing to the left lower extremity. Call your doctor if you observe: Fever of 101 or Higher, Shortness of breath, Dizziness, Fainting spells, Chest pain, Increased palpitations (irregular heartbeat), Uncontrolled pain Additional Instructions: #1 continue antibiotics as prescribed. #2 follow-up with wound care center in 1 week. #3 weekly CBC, BMP, ESR and Vanco trough while on IV antibiotics. Allergies/Adverse Reactions: Allergies cefepime Allergy (Verified 03/06/17 09:46) Hives lisinopril Allergy (Verified 03/06/17 09:46) cough sulfamethoxazole [From Octra] Allergy (Verified 03/06/17 09:46) turned red trimethoprim [From ] Allergy (Verified 03/06/17 09:46) turned red Medications to take at Discharge Insulin Detemir [Levemir FlexPen] 100 units SC BID 10/12/14 Citalopram [Celexa] 40 mg PO DAILY 11/15/14 Metformin HCl [Glucophage] 1,000 mg PO BIDCM 11/15/14 Losartan Potassium [Cozaar] 100 mg PO DAILY 06/05/16 buPROPion XL [Wellbutrin Xl] 150 mg PO DAILY 01/21/17 glimepiride 4 mg tablet 4 mg PO BID tab 01/31/17 Insulin Aspart [Novolog Flexpen] 40 units SC TIDCM 03/24/17 Simvastatin 40 mg PO QHS 03/24/17 Triamterene/Hydrochlorothiazid [Triamterene-Hctz 37.5-25 mg Cp] 1 each PO DAILY 03/24/17 Glucerna Shake 120 ml PO 4X/DAY #30 liquid 03/28/17 Gabapentin [Neurontin] 800 mg PO 4X/DAY 05/28/17 Naproxen [Naprosyn] 500 mg PO BID 05/28/17 Ceftriaxone 2 gm IV Q24 #30 vial 06/04/17 Ferrous Sulfate 325 mg PO BIDCM #60 tab 06/04/17 Metronidazole [Flagyl] 500 mg PO TID #60 tab 04/18/18 Oxycodone [Oxyir] 10 mg PO Q6H PRN PRN 4 Days #14 tab 06/04/17 Vancomycin HCl in 5 % Dextrose [Vancomycin 1.75 Gram/500Ml-D5w] 1.75 gm IV BID # 60 plast..bag 06/04/17 morphine SR tablet [Ms Contin] 15 mg PO TID 1 Days #3 tab 06/04/17 The following prescriptions were given: Oxycodone [Oxyir] 10 mg PO Q6H PRN PRN 4 Days #14 tab PRN Reason: Severe Pain (-11/26) Ceftriaxone 2 gm IV Q24 #30 vial Ferrous Sulfate 325 mg PO BIDCM #60 tab Vancomycin HCl in 5 % Dextrose [Vancomycin 1.75 Gram/500Ml-D5w] 1.75 gm IV BID # 60 plast..bag Metronidazole [Flagyl] 500 mg PO TID #60 tab morphine SR tablet [Ms Contin] 15 mg PO TID 1 Days #3 tab Primary Care Physician: Orion Cordova [Primary Care Provider] - Please follow up with your Primary Care Physician in: 2 weeks. Please Follow Up With: Lucho Rodriguez MD When: please call his office. Please Follow Up With: Yariel Sanders MD When: 1-2 weeks.
--- NOTE | 2017-06-04 11:51 | PCM.TXEXTCAR ---
- Diet 05/30/17 11:11 Diet: Carbohydrate Controlled Is pt able to select menu?: Yes - Routine Orders/Code Status Routine Lab Work: CBC, BMP, - - Weekly CBC, BMP, ESR, and vancomycin trough. Code Status: Full Code - Wound(s) LEFT FOOT Wound Type: Neuropathic/Diabetic Foot Ulcer Left medial foot Wound Type: Neuropathic/Diabetic Foot Ulcer Dressing Change: KCI wound VAC Left plantar Wound Type: Neuropathic/Diabetic Foot Ulcer Dressing Change: KCI wound VAC - Suggestions for Active Care Change Position every (hours): 3 Hours to sit in a chair: 2 Times a day to sit in chair: 3 - Therapies Weight Bearing: Non weight bearing - Nonweightbearing to the left lower extremity. Physical Therapy: Eval and Treat Occupational Therapy: Eval and Treat - Allergies/Procedures Done in Hospital Allergies/Adverse Reactions: Allergies cefepime Allergy (Verified 03/06/17 09:46) Hives lisinopril Allergy (Verified 03/06/17 09:46) cough sulfamethoxazole [From Octra] Allergy (Verified 03/06/17 09:46) turned red trimethoprim [From Octra] Allergy (Verified 03/06/17 09:46) turned red - Type of Care/Length of Stay Estimated LOS: [facility]valescent Care Less Than 30 days Type of Care Needed: Skilled Rehab Potential: Good Prognosis: Good - Additional Orders/Day of Discharge Additional Orders: #1 continue antibiotics as prescribed. #2 follow-up with wound care center in 1 week. #3 weekly CBC, BMP, ESR and Vanco trough while on IV antibiotics. #4 duration of antibiotic treatment will be determined by Dr. Sanders H&P will serve as current which was dated: 05/28/17 Day of Discharge: 06/04/17 - Dietary and Speech Recommendations Dietitian Recommendations/Changes: Rec diet change to 1999 calorie controlled, cardiac. Continue Glucerna w/ medpass and Greg BID as ordered. - Follow Up Care Primary Care Physician: Orion Cordova [Primary Care Provider] - Please follow up with your Primary Care Physician in: 2 weeks. Please Follow Up With: Lucho Rodriguez MD When: please call his office. Please Follow Up With: Yariel Sanders MD When: 1-2 weeks.
--- NOTE | 2017-06-04 12:08 | CASEMGMT ---
Social Work Note RANDY faxed discharge paperwork including transfer to extended care facility, signed medication list and signed scripts to [facility]. SW completed [facility] in [place]. Original discharge paperwork in SNF folder and copies on chart. Pt's friend will be transporting him to [facility]. RANDY updated Charge Nurse Genny of this and RN Cleo of this as well. Pt denied additional needs or concerns at this time. Plan: [facility] today Conchita Elliott PHARMACY SALES ASSISTANT, FIELD SERVICE SPECIALIST
[2017-06-04 12:56] LABS: Bedside Glucose 240 mg/dL (70-110)
[2017-06-04 13:33] VITALS: BP 152/56; PULSE 78; RESP 18; TEMP 37; O2SAT 97
--- NOTE | 2017-06-04 15:11 | DS.PCM_ITS ---
Discharge Date and Diagnosis Date of Admission: 05/28/17 Date of Discharge: 06/04/17 - Primary Discharge Diagnosis Proteus mirabilis/MRSA infected nonhealing diabetic left foot ulcer/wound with chronic osteomyelitis, status post incision and drainage, excisional debridement of nonhealing diabetic ulcer of the left foot, partial ostectomy of the cuboid bone, status post wound VAC insertion. 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 Venous insufficiency of both lower extremities (Chronic) S/P transmetatarsal amputation of foot (Chronic) 03/04/[address] 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) Hypertension (Chronic) Amputation of right foot with complication (Chronic) Type 2 diabetes mellitus with diabetic polyneuropathy (Chronic) Stasis dermatitis of both legs (Chronic) Sleep apnea (Chronic) CPAP 15 cm H20, 100% compliant Neuropathy (Chronic) secondary to diabetes Morbid obesity (Chronic) Anemia (Chronic) Dyslipidemia (Chronic) Left ventricular hypertrophy (Chronic) Chronic pain syndrome (Chronic) Depression (Chronic) Hospital Course and Treatment Imaging Results: Clinical Impression(s) from Imaging Studies Foot X-Ray 05/28/17 15:29 Chest X-Ray 05/28/17 16:29 IMPRESSION: Normal x-ray examination of the chest. Electronically Signed: Noe Ruth MD at 16:55 EDT , Service support , Lower Extremity MRI 05/29/17 11:04 IMPRESSION: Increasing marrow edema with enhancement of the calcaneus and cuboid in region of large soft tissue defect consistent with osteomyelitis. Advanced arthrosis of the foot and ankle consistent with Charcot arthropathy. Electronically Signed: Morgan Gonzalez MD at 16:36 EDT , Service support , Operations: None, - - Incision and drainage, excisional debridement of nonhealing infected diabetic ulcer of the left foot, with partial ostectomy of the cuboid bone. Insertion of wound VAC. Procedures: None Summary of Care Provided: Patient seen and examined on the day of discharge and appeared to be stable to be discharged home. He continued to complain of intermittent left foot pain which has been up and down and manageable with pain medication. Denies fever or chills. Vital signs are stable. - Physical Exam General: Alert, Oriented x3, Cooperative, No apparent distress HEENT: Atraumatic, PERRLA, EOMI Oral: Moist Mucosa, No Gingival or Mucosal Lesions/ Ulcerations Neck: Supple, No JVD, Negative Carotid Bruits, Trachea Midline, Thyroid Normal Size and Texture Lungs: Clear to auscultation, No rhonchi, No wheeze, No rales, Diminished Cardiovascular: Regular rate, Regular Rhythm, Normal S1, Normal S2, PMI Normal Abdomen: Bowel Sounds Present, Soft, Non Tender, Non-Distended, No Hepato- splenomegaly, Obese Extremities: No clubbing, No cyanosis, No edema Skin: No rashes, Ulcer/ Wound Neurological: Cranial nerves II-XII grossly intact, Neuro grossly intact Psych/Mental Status: Normal Affect, Appropriate, Alert and oriented to time, place, person, mood and affect Vital Signs are stable. Hospital course: The patient is a 62 year old M admitted because of nonhealing left foot wound/ ulcer that was found to be infected with osteomyelitis of the left foot/left cuboid and calcaneus bone. Patient was treated with IV antibiotics including IV vancomycin and Zosyn. He underwent incision and drainage, excisional debridement of the nonhealing left foot ulcer with partial ostectomy of the cuboid bone by Dr. Rodriguez. His wound culture revealed Proteus mirabilis and MRSA. Blood culture showed no growth in 5 days. Remained afebrile throughout admission and he had no leukocytosis. His routine blood work was remarkable for chronic anemia with stable hemoglobin, otherwise normal. After surgery, wound VAC inserted. [facility] discharged to [facility] facility in a stable medical condition, discharged on IV vancomycin, IV Rocephin and oral Flagyl until patient go for amputation of the left foot which probably would happen in the near future and around 3 weeks, continued on his home medication, started on iron supplement, order given to repeat CBC, BMP, ESR and ventilator of every week ?4, plan to follow-up with the wound care center in 1 week, follow-up with infectious disease according to Dr. Sanders recommendation, follow-up with PCP in 2 weeks. Discharge Activity: Return to Normal Activity Weight Bearing Status: No weight bearing - Nonweightbearing to the left lower extremity. Call your doctor if you observe: Fever of 101 or Higher, Shortness of breath, Dizziness, Fainting spells, Chest pain, Increased palpitations (irregular heartbeat), Uncontrolled pain Home Medications: Medications to take at Discharge Insulin Detemir [Levemir FlexPen] 100 units SC BID 10/12/14 Citalopram [Celexa] 40 mg PO DAILY 11/15/14 Metformin HCl [Glucophage] 1,000 mg PO BIDCM 11/15/14 Losartan Potassium [Cozaar] 100 mg PO DAILY 06/05/16 buPROPion XL [Wellbutrin Xl] 150 mg PO DAILY 01/21/17 glimepiride 4 mg tablet 4 mg PO BID tab 01/31/17 Insulin Aspart [Novolog Flexpen] 40 units SC TIDCM 03/24/17 Simvastatin 40 mg PO QHS 03/24/17 Triamterene/Hydrochlorothiazid [Triamterene-Hctz 37.5-25 mg Cp] 1 each PO DAILY 03/24/17 Glucerna Shake 120 ml PO 4X/DAY #30 liquid 03/28/17 Gabapentin [Neurontin] 800 mg PO 4X/DAY 05/28/17 Naproxen [Naprosyn] 500 mg PO BID 05/28/17 Ceftriaxone 2 gm IV Q24 #30 vial 06/04/17 Ferrous Sulfate 325 mg PO BIDCM #60 tab 06/04/17 Metronidazole [Flagyl] 500 mg PO TID #60 tab 06/04/17 Oxycodone [Oxyir] 10 mg PO Q6H PRN PRN 4 Days #14 tab 06/04/17 Vancomycin HCl in 5 % Dextrose [Vancomycin 1.75 Gram/500Ml-D5w] 1.75 gm IV BID # 60 plast..bag 06/04/17 morphine SR tablet [Ms Contin] 15 mg PO TID 1 Days #3 tab 06/04/17 Following Prescrptions Were Given to Patient: Oxycodone [Oxyir] 10 mg PO Q6H PRN PRN 4 Days #14 tab PRN Reason: Severe Pain (-11/26) Ceftriaxone 2 gm IV Q24 #30 vial Ferrous Sulfate 325 mg PO BIDCM #60 tab Vancomycin HCl in 5 % Dextrose [Vancomycin 1.75 Gram/500Ml-D5w] 1.75 gm IV BID # 60 plast..bag Metronidazole [Flagyl] 500 mg PO TID #60 tab morphine SR tablet [Ms Contin] 15 mg PO TID 1 Days #3 tab Primary Care Physician: Orion Cordova [Primary Care Provider] - Please follow up with your Primary Care Physician in: 2 weeks. Please Follow Up With: Lucho Rodriguez MD When: please call his office. Please Follow Up With: Yariel Sanders MD When: 1-2 weeks. Disposition: Home Minutes spent on discharge:: 32 Medical Necessity - Tobacco Use Smoking Status: Former smoker Tobacco Use: Non-smoker Meaningful Use Info Meaningful Use Diagnoses (Choose all that apply): None applicable Code Visit Inpatient E&M: 16884 Disch Hosp
== END 2017-06-04 14:23 | disposition skilled nursing facility (03) | DRG 623 ==
LOC: ED 15:49 → MS3 18:25
PROVIDERS: Anesthesiology; Hospitalist; Physician Assistant; Surgery; Admitting Provider Internal Medicine; Emergency Provider Emergency Medicine; Family Provider Family Medicine; PCP Family Medicine; Visit Provider Hospitalist
PROC: 0QBM0ZZ Excision of Left Tarsal, Open Approach (ICD-10-PCS; principal; 2017-05-30 10:05)
DX: E11.69 Type 2 diabetes mellitus with other specified complication (principal); M86.672 Other chronic osteomyelitis, left ankle and foot; L97.425 Non-pressure chronic ulcer of left heel and midfoot with muscle involvement without evidence of necrosis; Z68.41 Body mass index [BMI] 40.0-44.9, adult; B95.62 Methicillin resistant Staphylococcus aureus infection as the cause of diseases classified elsewhere; B96.4 Proteus (mirabilis) (morganii) as the cause of diseases classified elsewhere; E11.621 Type 2 diabetes mellitus with foot ulcer; E11.51 Type 2 diabetes mellitus with diabetic peripheral angiopathy without gangrene; E11.610 Type 2 diabetes mellitus with diabetic neuropathic arthropathy; D50.9 Iron deficiency anemia, unspecified; D63.8 Anemia in other chronic diseases classified elsewhere; I10 Essential (primary) hypertension; E55.9 Vitamin D deficiency, unspecified; E78.5 Hyperlipidemia, unspecified; E66.01 Morbid (severe) obesity due to excess calories; K21.9 Gastro-esophageal reflux disease without esophagitis; G89.4 Chronic pain syndrome; G47.33 Obstructive sleep apnea (adult) (pediatric); F32.9 Major depressive disorder, single episode, unspecified; F41.9 Anxiety disorder, unspecified; Z91.19 Patient's noncompliance with other medical treatment and regimen; Z79.891 Long term (current) use of opiate analgesic; Z79.4 Long term (current) use of insulin; Z79.899 Other long term (current) drug therapy; Z74.01 Bed confinement status; Z86.14 Personal history of Methicillin resistant Staphylococcus aureus infection; Z89.431 Acquired absence of right foot; Z87.891 Personal history of nicotine dependence
CPT/HCPCS: 36415; 36569; 71046; 73630; 73720; 80048; 80202; 82728; 82962; 83036; 83540; 83550; 83605; 84134; 85025; 85027; 85045; 85652; 86140; 87015; 87040; 87070; 87075; 87077; 87102; 87116; 87186; 87205; 87206; 87640; 88304; 88305; 88311; 88312; 93005; 97110; 97116; 97162; 97165; 97530; 97802; 99282; A9585; J7030; J7040; J7050; A4216; J0696; J2405

== ENCOUNTER 2017-06-09 09:00 | Outpatient (RCR) | payer MEDICARE, SELFPAY ==
[2017-05-18 00:33] VITALS: BP 154/71; PULSE 68; RESP 18; TEMP 37; O2SAT 92; BMI 37.5
[2017-05-19 10:56] VITALS: BP 147/73; PULSE 90; RESP 20; TEMP 36.6; BMI 37.5
--- NOTE | 2017-05-19 17:42 | PCM.WC.PN ---
Type of Wound Date of Service: 05/19/17 Chief Complaint: Nonhealing diabetic ulcer left plantar foot with Charcot neuropathic osteoarthropathy and nonhealing diabetic ulcer left medial foot. History of Wound: Surgery 03/25/17 - 1. Surgical preparation left plantar foot with incision and drainage and excisional debridement nonhealing infected diabetic ulcer with fasciitis (30 cm2). 2. Surgical preparation left medial foot with incision and drainage and excisional debridement nonhealing infected diabetic ulcer with fasciitis (24 cm2). Wound care - VAC. Operative culture - MRSA. He is on Vancomycin. It will finish this week. Prealbumin on 03/24/17 was 32.7. Patient takes nutritional supplementation with protein to help the healing process. Also on 03/24/17, Hgb A1c was 8.6, CRP was 7.57, and ESR was 31. MRI on 03/24/17 showed the Charcot deformity and plantar fasciitis. No abscess was seen and no definitive evidence of osteomyelitis. Today he denies any fever. His appetite is good. His redness and swelling have improved a lot after starting the 3M two layer compression wrap. Progress of Wound: Slightly improved. - Physical Exam Vital Signs Temp Pulse Resp BP Pulse Ox 97.9 F 90 20 H 147/73 H 92 05/19/17 10:56 05/19/17 10:56 05/19/17 10:56 05/19/17 10:56 05/18/17 00:33 Wound Measurements and Assessment WC - Nurse 1 - General Ulcer Measurement Start: 05/19/17 10:56 Freq: Status: Active Protocol: Activity Type Activity Date Activity User E-Sign Co-Sign Detail Recorded Client Recorded Date Recorded By Document 05/19/17 10:56 DL [id number] 05/19/17 11:08 DL 05/19/17 10:56 Wound Center Nurse 1 [Ulcer Assessment] #22 Left Medial Foot (post-op) -Current Size (cm) - Length 2.5 -Current Size (cm) - Width 7.4 -Current Size (cm) - Depth 0.2 -Total Square Cm 18.50 -Photo Taken No -Exudate Amt Large (67-100%) -Exudate Type Serosanguineous -Wound Margin Thickened -Granulation Amt Large (67-100%) -Granulation Quality Red -Necrosis Amt Small (1-33%) -Necrotic Tissue Type Adherent Slough -Structure Exposed N/A -Texture (Yael-wound Skin Appearance) Scarring -Moisture (Yael-wound Skin Appearance Maceration ) -Color (Yael-wound Skin Appearance) No Abnormality -Temperature (Yael-wound Skin No Abnormality Appearance) (Pt Warm) -Ulcer Cleansing Wound Cleanser -Foul Odor after Cleansing No -Anesthetic Used 4% Lidocaine Solution #20 lt lat plantar -Current Size (cm) - Length 5.8 -Current Size (cm) - Width 5.5 -Current Size (cm) - Depth 1.3 -Total Square Cm 31.90 -Photo Taken No -Exudate Amt Large (67-100%) -Exudate Type Serosanguineous -Wound Margin Thickened -Granulation Amt Large (67-100%) -Granulation Quality Red -Necrosis Amt Small (1-33%) -Necrotic Tissue Type Adherent Slough -Structure Exposed Bone -Texture (Yael-wound Skin Appearance) Scarring -Moisture (Yael-wound Skin Appearance Maceration ) -Color (Yael-wound Skin Appearance) No Abnormality -Temperature (Yael-wound Skin No Abnormality Appearance) (Pt Warm) -Ulcer Cleansing Wound Cleanser -Foul Odor after Cleansing No -Anesthetic Used 4% Lidocaine Solution [Edema Assessment] -Left Calf (cm) 38.4 -Left Ankle (cm) 28 WC - Nurse 2 - General Ulcer CM Notes Start: 05/19/17 10:56 Freq: Status: Active Protocol: Activity Type Activity Date Activity User E-Sign Co-Sign Detail Recorded Client Recorded Date Recorded By Document 05/19/17 11:45 [email or web address] [id number] 05/19/17 11:46 MUSTAPHA 05/19/17 11:45 Wound Center Nurse 2 [Procedure/Treatment] #22 Left Medial Foot (post-op) -Time 11:45 -Correct Patient Yes -Correct Side, Site, Position Yes -Correct Procedure Yes -Procedure Performed Yes -Type of Procedure Debridement -Clinical Debridement Muscle -Post Debridement Size (cm) - Length 2.5 -Post Debridement Size (cm) - Width 7.5 -Post Debridement Size (cm) - Depth 0.2 -Total Square Cm 18.75 -Wound/Ulcer Outcome Not Healed -Ulcer Cleansing Rinsed/ Irrigated with Saline -Foul Odor after Cleansing No -Bioengineered Tissue No -Bleeding Controlled with Pressure -Treatment Response Procedure Tolerated Well #20 lt lat plantar -Time 11:45 -Correct Patient Yes -Correct Side, Site, Position Yes -Correct Procedure Yes -Procedure Performed Yes -Type of Procedure Debridement -Clinical Debridement Muscle -Post Debridement Size (cm) - Length 5.8 -Post Debridement Size (cm) - Width 5.6 -Post Debridement Size (cm) - Depth 1.3 -Total Square Cm 32.48 -Wound/Ulcer Outcome Not Healed -Ulcer Cleansing Rinsed/ Irrigated with Saline -Foul Odor after Cleansing No -Bioengineered Tissue No -Bleeding Controlled with Pressure -Treatment Response Procedure Tolerated Well [See Physician Procedure note for Specifics] Pain Scale: 0-10 Numeric [Pain] -Is Patient Pain Free? Yes Debridement Note Post-Debridement Measurements/Treatment WC - Nurse 2 - General Ulcer CM Notes Start: 05/19/17 10:56 Freq: Status: Active Protocol: Activity Type Activity Date Activity User E-Sign Co-Sign Detail Recorded Client Recorded Date Recorded By Document 05/19/17 11:45 [email or web address] [id number] 05/19/17 11:46 MUSTAPHA 05/19/17 11:45 Wound Center Nurse 2 #22 Left Medial Foot (post-op) -Time 11:45 -Correct Patient Yes -Correct Side, Site, Position Yes -Correct Procedure Yes -Procedure Performed Yes -Type of Procedure Debridement -Clinical Debridement Muscle -Post Debridement Size (cm) - Length 2.5 -Post Debridement Size (cm) - Width 7.5 -Post Debridement Size (cm) - Depth 0.2 -Total Square Cm 18.75 -Wound/Ulcer Outcome Not Healed -Ulcer Cleansing Rinsed/ Irrigated with Saline -Foul Odor after Cleansing No -Bioengineered Tissue No -Bleeding Controlled with Pressure and Silver Nitrate -Treatment Response Procedure Tolerated Well #20 lt lat plantar -Time 11:45 -Correct Patient Yes -Correct Side, Site, Position Yes -Correct Procedure Yes -Procedure Performed Yes -Type of Procedure Debridement -Clinical Debridement Muscle -Post Debridement Size (cm) - Length 5.8 -Post Debridement Size (cm) - Width 5.6 -Post Debridement Size (cm) - Depth 1.3 -Total Square Cm 32.48 -Wound/Ulcer Outcome Not Healed -Ulcer Cleansing Rinsed/ Irrigated with Saline -Foul Odor after Cleansing No -Bioengineered Tissue No -Bleeding Controlled with Pressure and Silver Nitrate -Treatment Response Procedure Tolerated Well Pain Scale: 0-10 Numeric Is Patient Pain Free? Yes Wound debrided: #20 Left plantar foot. Laterality: Left Wound Grade/Stage: 3. Type of Debridement: Excisional debridement Anesthesia Used: 4% Lidocaine Solution Depth: Down to and including healthy tissue, in the subcutaneous layer, to muscle Percentage of wound debrided: 100 Instrument Used: 7mm curette Tissue Removed: subcutaneous tissue and muscle. Severity: Fat Layer Exposed - muscle is exposed. Amount of bleeding with debridement: Mild Bleeding Controlled with: Pressure, Silver Nitrate Patient tolerated procedure well - Additional Wound Wound debrided: #22 Left medial foot. Laterality: Left Wound Grade/Stage: 3. Type of Debridement: Excisional debridement Anesthesia Used: 4% Lidocaine Solution Depth: Down to and including healthy tissue, in the subcutaneous layer, to muscle Percentage of wound debrided: 100 Instrument Used: 7mm curette Tissue Removed: subcutaneous tissue and muscle. Severity: Fat Layer Exposed - muscle is exposed. Amount of bleeding with debridement: Mild Bleeding Controlled with: Pressure, Silver Nitrate Patient tolerated procedure: Patient tolerated procedure well Assessment/Plan Assessment: 1. Nonhealing infected diabetic ulcer with fasciitis left plantar foot. 2. Nonhealing infected diabetic ulcer with fasciitis left medial foot. 3. Diabetes mellitus. 4. MRSA. 5. Charcot foot neuropathic osteoarthropathy. 6. Former smoker. 7. s/p surgical preparation left plantar foot with incision and drainage and excisional debridement nonhealing infected diabetic ulcer with fasciitis (30 cm2) and surgical preparation left medial foot with incision and drainage and excisional debridement nonhealing infected diabetic ulcer with fasciitis (24 cm2). Plan: Continue the VAC. Continue IV Vancomycin. It will finish this week. Will leave the PICC line in until next week. If there are no problems with the ulcers, will pull the PICC line next week. Will then start po antibiotics as a preventative measure probably at least for the next 6 months. Prealbumin on 03/24/17 was 32.7. Continue nutritional supplementation with protein to help the healing process. The 3M two layer compression wrap has improved the ulcers with decreased redness and swelling. It will be changed when the VAC is changed. Followup one week. After the IV Vancomycin is completed, if he continues to develop infections he is considering proceeding with an amputation. Will discuss further at future visits as needed.
[2017-05-21 12:41] VITALS: BP 146/59; PULSE 91; RESP 16; TEMP 37.3; BMI 37.5
[2017-05-23 10:02] VITALS: BP 154/96; PULSE 83; RESP 20; TEMP 37.4
[2017-05-26 09:31] VITALS: BP 153/80; PULSE 89; RESP 20; TEMP 37.4; BMI 37.5
--- NOTE | 2017-05-26 20:14 | PCM.WC.PN ---
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 History of Wound: Surgery 03/25/17 - 1. Surgical preparation left plantar foot with incision and drainage and excisional debridement nonhealing infected diabetic ulcer with fasciitis (30 cm2). 2. Surgical preparation left medial foot with incision and drainage and excisional debridement nonhealing infected diabetic ulcer with fasciitis (24 cm2). Wound care - VAC. Operative culture - MRSA. He was started on Vancomycin and has finished it. Will start Doxycycline. Prealbumin on 03/24/17 was 32.7. Patient takes nutritional supplementation with protein to help the healing process. Also on 03/24/17, Hgb A1c was 8.6, CRP was 7.57, and ESR was 31. MRI on 03/24/17 showed the Charcot deformity and plantar fasciitis. No abscess was seen and no definitive evidence of osteomyelitis. Today he denies any fever. His appetite is good. His redness and swelling have improved a lot after starting the 3M two layer compression wrap. Progress of Wound: Improved left medial foot and palpable bone in the left plantar foot. - Physical Exam Vital Signs Temp Pulse Resp BP Pulse Ox 99.3 F H 89 20 H 153/80 H 92 05/26/17 09:31 05/26/17 09:31 05/26/17 09:31 05/26/17 09:31 05/18/17 00:33 Wound Measurements and Assessment WC - Nurse 1 - General Ulcer Measurement Start: 05/19/17 10:56 Freq: Status: Active Protocol: Activity Type Activity Date Activity User E-Sign Co-Sign Detail Recorded Client Recorded Date Recorded By Document 05/26/17 09:31 DL [id number] 05/26/17 09:46 DL 05/26/17 09:31 Wound Center Nurse 1 [Ulcer Assessment] #22 Left Medial Foot (post-op) -Current Size (cm) - Length 8.1 -Current Size (cm) - Width 2.5 -Current Size (cm) - Depth 0.2 -Total Square Cm 20.25 -Photo Taken No -Exudate Amt Medium (34-66%) -Exudate Type Serosanguineous -Wound Margin Thickened -Granulation Amt Large (67-100%) -Granulation Quality Red -Necrosis Amt None Present (0 %) -Structure Exposed N/A -Texture (Yael-wound Skin Appearance) Scarring -Moisture (Yael-wound Skin Appearance Maceration ) -Color (Yael-wound Skin Appearance) Hemosiderin Staining -Temperature (Yael-wound Skin No Abnormality Appearance) (Pt Warm) -Ulcer Cleansing Wound Cleanser -Foul Odor after Cleansing No -Anesthetic Used 4% Lidocaine Solution #20 lt lat plantar -Current Size (cm) - Length 6.4 -Current Size (cm) - Width 5 -Current Size (cm) - Depth 1.1 -Total Square Cm 32.0 -Photo Taken No -Exudate Amt Large (67-100%) -Exudate Type Serosanguineous -Wound Margin Thickened -Granulation Amt Large (67-100%) -Granulation Quality Red -Slough/Fibrin Yes -Necrosis Amt Small (1-33%) -Necrotic Tissue Type Adherent Slough -Structure Exposed Bone -Texture (Yael-wound Skin Appearance) Scarring -Moisture (Yael-wound Skin Appearance Maceration ) -Color (Yael-wound Skin Appearance) Hemosiderin Staining -Temperature (Yael-wound Skin No Abnormality Appearance) (Pt Warm) -Ulcer Cleansing Wound Cleanser -Foul Odor after Cleansing No -Anesthetic Used 4% Lidocaine Solution [Edema Assessment] -Left Calf (cm) 40 -Left Ankle (cm) 26.3 WC - Nurse 2 - General Ulcer CM Notes Start: 05/19/17 10:56 Freq: Status: Active Protocol: Activity Type Activity Date Activity User E-Sign Co-Sign Detail Recorded Client Recorded Date Recorded By Document 05/26/17 10:13 [email or web address] [id number] 05/26/17 10:14 [email or web address] 05/26/17 10:13 Wound Center Nurse 2 [Procedure/Treatment] #22 Left Medial Foot (post-op) -Time 10:13 -Correct Patient Yes -Correct Side, Site, Position Yes -Correct Procedure Yes -Procedure Performed Yes -Type of Procedure Debridement -Clinical Debridement Muscle -Post Debridement Size (cm) - Length 8.2 -Post Debridement Size (cm) - Width 2.5 -Post Debridement Size (cm) - Depth 0.2 -Total Square Cm 20.50 -Wound/Ulcer Outcome Not Healed -Ulcer Cleansing Rinsed/ Irrigated with Saline -Foul Odor after Cleansing No -Bioengineered Tissue No -Bleeding Controlled with Pressure -Treatment Response Procedure Tolerated Well #20 lt lat plantar -Time 10:13 -Correct Patient Yes -Correct Side, Site, Position Yes -Correct Procedure Yes -Procedure Performed Yes -Type of Procedure Debridement -Clinical Debridement Muscle -Post Debridement Size (cm) - Length 6.5 -Post Debridement Size (cm) - Width 5.0 -Post Debridement Size (cm) - Depth 1.2 -Total Square Cm 32.50 -Wound/Ulcer Outcome Not Healed -Ulcer Cleansing Rinsed/ Irrigated with Saline -Foul Odor after Cleansing No -Bioengineered Tissue No -Bleeding Controlled with Pressure -Treatment Response Procedure Tolerated Well [See Physician Procedure note for Specifics] Pain Scale: 0-10 Numeric [Pain] -Is Patient Pain Free? Yes Debridement Note Post-Debridement Measurements/Treatment WC - Nurse 2 - General Ulcer CM Notes Start: 05/19/17 10:56 Freq: Status: Active Protocol: Activity Type Activity Date Activity User E-Sign Co-Sign Detail Recorded Client Recorded Date Recorded By Document 05/19/17 11:45 [id number] 05/19/17 11:46 Document 05/26/17 10:13 [id number] 05/26/17 10:14 05/19/17 05/26/17 11:45 10:13 Wound Center Nurse 2 #22 Left Medial Foot (post-op) -Time 11:45 10:13 -Correct Patient Yes Yes -Correct Side, Site, Position Yes Yes -Correct Procedure Yes Yes -Procedure Performed Yes Yes -Type of Procedure Debridement Debridement -Clinical Debridement Muscle Muscle -Post Debridement Size (cm) - Length 2.5 8.2 -Post Debridement Size (cm) - Width 7.5 2.5 -Post Debridement Size (cm) - Depth 0.2 0.2 -Total Square Cm 18.75 20.50 -Wound/Ulcer Outcome Not Healed Not Healed -Ulcer Cleansing Rinsed/ Rinsed/ Irrigated with Irrigated with Saline Saline -Foul Odor after Cleansing No No -Bioengineered Tissue No No -Bleeding Controlled with Pressure Pressure -Treatment Response Procedure Procedure Tolerated Well Tolerated Well #20 lt lat plantar -Time 11:45 10:13 -Correct Patient Yes Yes -Correct Side, Site, Position Yes Yes -Correct Procedure Yes Yes -Procedure Performed Yes Yes -Type of Procedure Debridement Debridement -Clinical Debridement Muscle Muscle -Post Debridement Size (cm) - Length 5.8 6.5 -Post Debridement Size (cm) - Width 5.6 5.0 -Post Debridement Size (cm) - Depth 1.3 1.2 -Total Square Cm 32.48 32.50 -Wound/Ulcer Outcome Not Healed Not Healed -Ulcer Cleansing Rinsed/ Rinsed/ Irrigated with Irrigated with Saline Saline -Foul Odor after Cleansing No No -Bioengineered Tissue No No -Bleeding Controlled with Pressure Pressure -Treatment Response Procedure Procedure Tolerated Well Tolerated Well Pain Scale: 0-10 Numeric Is Patient Pain Free? Yes Yes Wound debrided: #20 Left plantar foot. Laterality: Left Wound Grade/Stage: 3. Type of Debridement: Excisional debridement Anesthesia Used: 4% Lidocaine Solution Depth: Down to and including healthy tissue, in the subcutaneous layer, to muscle Percentage of wound debrided: 100 Instrument Used: 7mm curette Tissue Removed: subcutaneous tissue and muscle. Severity: Fat Layer Exposed - muscle is exposed. Amount of bleeding with debridement: Mild Bleeding Controlled with: Pressure Patient tolerated procedure well - Additional Wound Wound debrided: #22 Left medial foot. Laterality: Left Wound Grade/Stage: 3. Type of Debridement: Excisional debridement Anesthesia Used: 4% Lidocaine Solution Depth: Down to and including healthy tissue, in the subcutaneous layer, to muscle Percentage of wound debrided: 100 Instrument Used: 7mm curette Tissue Removed: subcutaneous tissue and muscle. Severity: Fat Layer Exposed - muscle is exposed. Amount of bleeding with debridement: Mild Bleeding Controlled with: Pressure Patient tolerated procedure: Patient tolerated procedure well Assessment/Plan Assessment: 1. Nonhealing infected diabetic ulcer with fasciitis left plantar foot. 2. Nonhealing infected diabetic ulcer with fasciitis left medial foot. 3. Diabetes mellitus. 4. MRSA. 5. Charcot foot neuropathic osteoarthropathy. 6. Former smoker. 7. s/p surgical preparation left plantar foot with incision and drainage and excisional debridement nonhealing infected diabetic ulcer with fasciitis (30 cm2) and surgical preparation left medial foot with incision and drainage and excisional debridement nonhealing infected diabetic ulcer with fasciitis (24 cm2). Plan: Continue the VAC. The Vancomycin has been completed. The ulcers are stable so the PICC line was pulled. Will start Doxycycline as a preventative for the next several months. Prealbumin on 03/24/17 was 32.7. Continue nutritional supplementation with protein to help the healing process. The 3M two layer compression wrap has improved the ulcers with decreased redness and swelling. It will be changed when the VAC is changed. After the IV Vancomycin is completed, if he continues to develop infections he is considering proceeding with an amputation. Will discuss further at future visits as needed. Until then the patient states he wants to further discuss the various Charcot procedures available to try and salvage the foot. He may not decide to proceed with any complex reconstructive surgery and ultimately proceed with an amputation. But for now he would like to discuss the options again. Will set him up to discuss these Charcot procedures with Dr. Yanes. After the bones are realigned, any soft tissue reconstruction would necessitate microvascular free tissue transfer and would need to be done at a tertiary center. In the meantime, if the palpable bone in the left plantar foot becomes exposed, he would need operative debridement and partial ostectomy to evaluate for osteomyelitis. Followup one week.
[2017-05-28 18:11] VITALS: BP 139/87; PULSE 97; RESP 16; TEMP 36.4; BMI 37.5
[2017-06-09 09:21] VITALS: BP 150/73; PULSE 76; RESP 18; TEMP 36.3; BMI 37.5
--- NOTE | 2017-06-09 11:19 | PCM.PN.ID ---
Subjective: Worsening LLE redness and swelling despite IV abx at [facility]. Some chills. Some diarrhea, about 5x/day. - Physical Exam General: Alert, Cooperative Lungs: Clear to auscultation, Normal air movement Cardiovascular: Regular rate, Regular Rhythm Abdomen: Soft, Non Tender, Non-Distended Extremities: Edema Skin: Ulcer/ Wound - L foot with large wounds, rednes extending nearly to knee Vital Signs Temp Pulse Resp BP Pulse Ox 97.3 F L 76 18 150/73 H 92 06/09/17 09:21 06/09/17 09:21 06/09/17 09:21 06/09/17 09:21 05/18/17 00:33 Oxygen Delivery Method Room Air Weight: 300 kg Body Mass Index (BMI) 37.5 Finger Stick Blood Glucose 185 Medical Necessity - Tobacco Use Smoking Status: Former smoker Tobacco Use: Non-smoker Route of nutrition/ use of supplements: [] Nutritional Intake: [] IV Site: [] Tam Catheter: [] - Assessment/Plan Antibiotics: [] Assessment/Plan: [] L foot osteomyelitis - worsening cellulitis after recent debridement and discharge on iv abx. Recommend hospital admission now for iv abx and amputation. Recent cxs with proteus and MRSA. Also staph epi and enterobacter in the past few months. Would check bcx x2, wound cx, and start iv vanc/zosyn. diarrhea - pt reports cdiff was just collected at [facility]. Would send here. Will follow, d/w Dr. Rodriguez and Dr. Rubio.
--- NOTE | 2017-06-09 11:28 | PN.ID_ITS ---
Subjective: Worsening LLE redness and swelling despite IV abx at [facility]. Some chills. Some diarrhea, about 5x/day. - Physical Exam General: Alert, Cooperative Lungs: Clear to auscultation, Normal air movement Cardiovascular: Regular rate, Regular Rhythm Abdomen: Soft, Non Tender, Non-Distended Extremities: Edema Skin: Ulcer/ Wound - L foot with large wounds, rednes extending nearly to knee Vital Signs Temp Pulse Resp BP Pulse Ox 97.3 F L 76 18 150/73 H 92 06/09/17 09:21 06/09/17 09:21 06/09/17 09:21 06/09/17 09:21 05/18/17 00:33 Oxygen Delivery Method Room Air Weight: 300 kg Body Mass Index (BMI) 37.5 Finger Stick Blood Glucose 185 Medical Necessity - Tobacco Use Smoking Status: Former smoker Tobacco Use: Non-smoker Route of nutrition/ use of supplements: [] Nutritional Intake: [] IV Site: [] Tam Catheter: [] - Assessment/Plan Antibiotics: [] Assessment/Plan: [] L foot osteomyelitis - worsening cellulitis after recent debridement and discharge on iv abx. Recommend hospital admission now for iv abx and amputation. Recent cxs with proteus and MRSA. Also staph epi and enterobacter in the past few months. Would check bcx x2, wound cx, and start iv vanc/zosyn. diarrhea - pt reports cdiff was just collected at [facility]. Would send here. Will follow, d/w Dr. Rodriguez and Dr. Rubio.
--- NOTE | 2017-06-09 12:40 | PCM.WC.PN ---
Type of Wound Date of Service: 06/09/17 Chief Complaint: Nonhealing diabetic ulcer left plantar foot with Charcot neuropathic osteoarthropathy and nonhealing diabetic ulcer left medial foot. History of Wound: Surgery 05/30/17 - 1. Surgical preparation left plantar foot with incision and drainage and excisional debridement nonhealing MRSA diabetic ulcer (42 cm2). 2. Partial ostectomy cuboid bone for osteomyelitis. Wound care - VAC. Operative culture - MRSA and Proteus mirabilis in the soft tissue and MRSE and Proteus mirabilis in the bone. He was started on Vancomycin, Ceftriaxone, and Flagyl. Pathology - positive for acute osteomyelitis. Prealbumin on 05/30/17 was 18.4. Patient takes nutritional supplementation with protein to help the healing process. Also on 05/29/17, Hgb A1c was 9.6. Today he denies any fever. His appetite is good. His redness and swelling have increased since his recent hospitalization. Progress of Wound: Recent surgery 05/30/17 with increasing swelling and redness. - Physical Exam Vital Signs Temp Pulse Resp BP Pulse Ox 97.3 F L 76 18 150/73 H 92 06/09/17 09:21 06/09/17 09:21 06/09/17 09:21 06/09/17 09:21 05/18/17 00:33 Wound Measurements and Assessment WC - Nurse 1 - General Ulcer Measurement Start: 05/19/17 10:56 Freq: Status: Active Protocol: Activity Type Activity Date Activity User E-Sign Co-Sign Detail Recorded Client Recorded Date Recorded By Document 06/09/17 09:21 DV [id number] 06/09/17 09:24 DV 06/09/17 09:21 Wound Center Nurse 1 [Ulcer Assessment] #22 Left Medial Foot (post-op) -Combined with other wound No -Current Size (cm) - Length 8.5 -Current Size (cm) - Width 3.0 -Current Size (cm) - Depth 0.5 -Total Square Cm 25.50 -Photo Taken No -Epithelialization None Present -Tunneling No -Undermining/Tunneling No -Circular Undermining No -Exudate Amt Large (67-100%) -Exudate Type Serosanguineous -Wound Margin Distinct, Outline Attached -Granulation Amt None Present (0 %) -Granulation Quality N/A -Slough/Fibrin Yes -Necrosis Amt Large (67-100%) -Necrotic Tissue Type Adherent Slough -Structure Exposed None/Limited to Skin Breakdown -Texture (Yael-wound Skin Appearance) Assessed Localized Edema -Moisture (Yael-wound Skin Appearance Assessed ) Maceration Weeping -Color (Yael-wound Skin Appearance) Assessed Erythema -Temperature (Yael-wound Skin No Abnormality Appearance) (Pt Warm) -Tenderness on Palpation (Yael-wound No Skin Appearance) -Ulcer Cleansing Rinsed/ Irrigated with Saline -Foul Odor after Cleansing No -Anesthetic Used 4% Lidocaine Solution #20 lt lat plantar -Combined with other wound No -Current Size (cm) - Length 7.2 -Current Size (cm) - Width 6.3 -Current Size (cm) - Depth 1.9 -Total Square Cm 45.36 -Photo Taken No -Tunneling No -Undermining/Tunneling No -Circular Undermining No -Exudate Amt Large (67-100%) -Exudate Type Serosanguineous -Wound Margin Distinct, Outline Attached -Granulation Amt None Present (0 %) -Granulation Quality N/A -Slough/Fibrin Yes -Necrosis Amt Large (67-100%) -Necrotic Tissue Type Adherent Slough -Structure Exposed Bone None/Limited to Skin Breakdown -Texture (Yael-wound Skin Appearance) Assessed Localized Edema -Moisture (Yael-wound Skin Appearance Assessed ) Maceration Weeping -Color (Yael-wound Skin Appearance) Assessed Erythema -Temperature (Yael-wound Skin No Abnormality Appearance) (Pt Warm) -Tenderness on Palpation (Yael-wound No Skin Appearance) -Ulcer Cleansing Rinsed/ Irrigated with Saline -Foul Odor after Cleansing No -Anesthetic Used 4% Lidocaine Solution [Edema Assessment] -Lower Limb Edema Present Yes -Left Calf (cm) 43.2 -Left Ankle (cm) 28.2 WC - Nurse 2 - General Ulcer CM Notes Start: 05/19/17 10:56 Freq: Status: Active Protocol: Activity Type Activity Date Activity User E-Sign Co-Sign Detail Recorded Client Recorded Date Recorded By Document 06/09/17 09:30 MUSTAPHA [id number] 06/09/17 09:32 [email or web address] 06/09/17 09:30 Wound Center Nurse 2 [Procedure/Treatment] #22 Left Medial Foot (post-op) -Time 09:31 -Correct Patient Yes -Correct Side, Site, Position Yes -Correct Procedure Yes -Procedure Performed Yes -Type of Procedure Debridement -Clinical Debridement Muscle -Post Debridement Size (cm) - Length 8.5 -Post Debridement Size (cm) - Width 3.1 -Post Debridement Size (cm) - Depth 0.5 -Total Square Cm 26.35 -Wound/Ulcer Outcome Not Healed -Ulcer Cleansing Rinsed/ Irrigated with Saline -Foul Odor after Cleansing No -Bioengineered Tissue No -Bleeding Controlled with Pressure -Treatment Response Procedure Tolerated Well #20 lt lat plantar -Time 09:31 -Correct Patient Yes -Correct Side, Site, Position Yes -Correct Procedure Yes -Procedure Performed Yes -Type of Procedure Debridement -Clinical Debridement Muscle -Post Debridement Size (cm) - Length 7.5 -Post Debridement Size (cm) - Width 6.3 -Post Debridement Size (cm) - Depth 2.0 -Total Square Cm 47.25 -Wound/Ulcer Outcome Not Healed -Ulcer Cleansing Rinsed/ Irrigated with Saline -Foul Odor after Cleansing No -Bioengineered Tissue No -Bleeding Controlled with Pressure -Treatment Response Procedure Tolerated Well [See Physician Procedure note for Specifics] Pain Scale: 0-10 Numeric [Pain] -Is Patient Pain Free? Yes Debridement Note Post-Debridement Measurements/Treatment WC - Nurse 2 - General Ulcer CM Notes Start: 05/19/17 10:56 Freq: Status: Active Protocol: Activity Type Activity Date Activity User E-Sign Co-Sign Detail Recorded Client Recorded Date Recorded By Document 05/19/17 11:45 [id number] 05/19/17 11:46 Document 05/26/17 10:13 [id number] 05/26/17 10:14 Document 06/09/17 09:30 [id number] 06/09/17 09:32 05/19/17 05/26/17 06/09/17 11:45 10:13 09:30 Wound Center Nurse 2 #22 Left Medial Foot (post-op) -Time 11:45 10:13 09:31 -Correct Patient Yes Yes Yes -Correct Side, Site, Position Yes Yes Yes -Correct Procedure Yes Yes Yes -Procedure Performed Yes Yes Yes -Type of Procedure Debridement Debridement Debridement -Clinical Debridement Muscle Muscle Muscle -Post Debridement Size (cm) - Length 2.5 8.2 8.5 -Post Debridement Size (cm) - Width 7.5 2.5 3.1 -Post Debridement Size (cm) - Depth 0.2 0.2 0.5 -Total Square Cm 18.75 20.50 26.35 -Wound/Ulcer Outcome Not Healed Not Healed Not Healed -Ulcer Cleansing Rinsed/ Rinsed/ Rinsed/ Irrigated with Irrigated with Irrigated with Saline Saline Saline -Foul Odor after Cleansing No No No -Bioengineered Tissue No No No -Bleeding Controlled with Pressure Pressure Pressure -Treatment Response Procedure Procedure Procedure Tolerated Well Tolerated Well Tolerated Well #20 lt lat plantar -Time 11:45 10:13 09:31 -Correct Patient Yes Yes Yes -Correct Side, Site, Position Yes Yes Yes -Correct Procedure Yes Yes Yes -Procedure Performed Yes Yes Yes -Type of Procedure Debridement Debridement Debridement -Clinical Debridement Muscle Muscle Muscle -Post Debridement Size (cm) - Length 5.8 6.5 7.5 -Post Debridement Size (cm) - Width 5.6 5.0 6.3 -Post Debridement Size (cm) - Depth 1.3 1.2 2.0 -Total Square Cm 32.48 32.50 47.25 -Wound/Ulcer Outcome Not Healed Not Healed Not Healed -Ulcer Cleansing Rinsed/ Rinsed/ Rinsed/ Irrigated with Irrigated with Irrigated with Saline Saline Saline -Foul Odor after Cleansing No No No -Bioengineered Tissue No No No -Bleeding Controlled with Pressure Pressure Pressure -Treatment Response Procedure Procedure Procedure Tolerated Well Tolerated Well Tolerated Well Pain Scale: 0-10 Numeric Is Patient Pain Free? Yes Yes Yes Wound debrided: #20 Left plantar foot. Laterality: Left Wound Grade/Stage: 3. Type of Debridement: Excisional debridement Anesthesia Used: 4% Lidocaine Solution Depth: Down to and including healthy tissue, in the subcutaneous layer, to muscle, to bone - bone is exposed but not debrided. Percentage of wound debrided: 100 Instrument Used: 7mm curette Tissue Removed: subcutaneous tissue and muscle. Severity: Fat Layer Exposed - muscle is exposed. bone is exposed but not debrided. Amount of bleeding with debridement: Mild Bleeding Controlled with: Pressure Patient tolerated procedure well - Additional Wound Wound debrided: #22 Left medial foot. Laterality: Left Wound Grade/Stage: 3. Type of Debridement: Excisional debridement Anesthesia Used: 4% Lidocaine Solution Depth: Down to and including healthy tissue, in the subcutaneous layer, to muscle Percentage of wound debrided: 100 Instrument Used: 7mm curette Tissue Removed: subcutaneous tissue and muscle. Severity: Fat Layer Exposed - muscle is exposed. Amount of bleeding with debridement: Mild Bleeding Controlled with: Pressure Patient tolerated procedure: Patient tolerated procedure well Assessment/Plan Assessment: 1. Nonhealing infected diabetic ulcer with fasciitis left plantar foot. 2. Nonhealing infected diabetic ulcer with fasciitis left medial foot. 3. Diabetes mellitus. 4. MRSA. 5. Osteomyelitis. 6. Charcot foot neuropathic osteoarthropathy. 7. Former smoker. 8. s/p surgical preparation left plantar foot with incision and drainage and excisional debridement nonhealing MRSA diabetic ulcer (42 cm2) and partial ostectomy cuboid bone for osteomyelitis. Plan: Continue the VAC. He was discharged on Vancomycin, Ceftriaxone, and Flagyl for MRSA and Proteus mirabilis in the soft tissue and MRSE and Proteus mirabilis in the bone. Pathology was positive for acute osteomyelitis. Despite these IV antibiotics, he has increasing redness and swelling. Recommend admission to the hospital and increasing the IV antibiotics. Prealbumin on 05/30/17 was 18.4. Continue nutritional supplementation with protein to help the healing process. swelling. Since the infection is worsening despite recent operative debridement and IV antibiotics, it was discussed with the patient to proceed with amputation after the infection has stabilized with some resolution of the swelling. He voiced understanding and wishes to proceed. Followup after discharge from hospital.
== END 2017-06-16 23:59 ==
LOC: WC 09:00
PROVIDERS: Family Provider Internal Medicine; PCP Internal Medicine; Visit Provider Surgery
DX: E11.621 Type 2 diabetes mellitus with foot ulcer (principal); E11.610 Type 2 diabetes mellitus with diabetic neuropathic arthropathy; L97.422 Non-pressure chronic ulcer of left heel and midfoot with fat layer exposed; Z87.891 Personal history of nicotine dependence
CPT/HCPCS: 11043; 11046; 29581; 97606; 99212; 99213; G0463

== ENCOUNTER 2017-06-09 11:29 | Inpatient (IN) | payer MEDICARE, SELFPAY ==
[2017-06-09 11:57] VITALS: BP 147/70; PULSE 73; RESP 16; TEMP 36.5; O2SAT 99; BMI 42.7; BMI 42.8
--- NOTE | 2017-06-09 12:03 | NURSING ---
Pt. reports that he hasn't eaten since this morning and received thirty units of insulin. Nurse provides low calorie snack including chicken noodle soup, sugar-free jello, and sprite zero.
[2017-06-09 12:16] LABS: Bedside Glucose 73 mg/dL (70-110)
--- NOTE | 2017-06-09 12:30 | PCM.HP.STD ---
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 (11) Sleep apnea Status: Chronic Qualifiers: Comment: CPAP 15 cm H20, 100% compliant (12) Neuropathy Status: Chronic Comment: secondary to diabetes (13) Morbid obesity Status: Chronic (14) Anemia Status: Chronic Qualifiers: Anemia type: unspecified type Qualified Code(s): D64.9 - Anemia, unspecified (15) Dyslipidemia Status: Chronic (16) Chronic pain syndrome Status: Chronic (17) Depression Status: Chronic Qualifiers: Depression Type: unspecified Qualified Code(s): F32.9 - Major depressive disorder, single episode, unspecified History of Present Illness Date of Admission: 06/09/17 Chief Complaint: L foot infection, erythema, edema. The patient is a 62 y/o M w/ PMHx: Chronic normocytic anemia (Hgb baseline 10-11), Diabetes mellitus type II with Neuropathy/Uncontrolled, HTN, HLD, Obesity, GERD, Chronic pain syndrome, Morbid Obesity, Recent 05/28-06/04/17 admission w/ treatment and evaluation for Proteus mirabilis/MRSA infected non-healing diabetic left foot ulcer/wound with chronic osteomyelitis w/ I+D performed w/ excisional debridement and partial ostectomy of the cuboid bone w/ VAC placement who now re-presents to the [facility] on 06/09/17 as direct admission per Dr. Rodriguez request secondary to erythema, left lower extremity discomfort and pain, edema since discharge from hospital and transition to assisted facility despite ongoing VAC therapy and IV abx with oral Flagyl and IV vancomycin as well as IV Rocephin per ID direction in addition to several month history of intermittent substernal chest pressure independent of activity with associated dyspnea and occasional nausea without emesis. He additionally noted loose stools for the last week while at SNF with 4-6 loose stools per day without abdominal pain but noted nausea intermittently. 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 Venous insufficiency of both lower extremities (Chronic) S/P transmetatarsal amputation of foot (Chronic) 03/04/[address] 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) Hypertension (Chronic) Amputation of right foot with complication (Chronic) Type 2 diabetes mellitus with diabetic polyneuropathy (Chronic) Stasis dermatitis of both legs (Chronic) Sleep apnea (Chronic) CPAP 15 cm H20, 100% compliant Neuropathy (Chronic) secondary to diabetes Morbid obesity (Chronic) Anemia (Chronic) Dyslipidemia (Chronic) Left ventricular hypertrophy (Chronic) Chronic pain syndrome (Chronic) Depression (Chronic) Allergies cefepime Allergy (Verified 03/06/17 09:46) Hives lisinopril Allergy (Verified 03/06/17 09:46) cough sulfamethoxazole [From ] Allergy (Verified 03/06/17 09:46) turned red trimethoprim [From ] Allergy (Verified 03/06/17 09:46) turned red Home Medications: Ambulatory Orders Medication Instructions Recorded Insulin Detemir [Levemir FlexPen] 100 units SC BID 10/12/14 Citalopram [Celexa] 40 mg PO DAILY 11/15/14 Metformin HCl [Glucophage] 1,000 mg PO BIDCM 11/15/14 Losartan Potassium [Cozaar] 100 mg PO DAILY 06/05/16 buPROPion XL [Wellbutrin Xl] 150 mg PO DAILY 01/21/17 glimepiride 4 mg tablet 4 mg PO BID tab 01/31/17 Insulin Aspart [Novolog Flexpen] 40 units SC TIDCM 03/24/17 Simvastatin 40 mg PO QHS 03/24/17 Triamterene/Hydrochlorothiazid 1 each PO DAILY 03/24/17 [Triamterene-Hctz 37.5-25 mg Cp] Glucerna Shake 120 ml PO 4X/DAY #30 liquid 03/28/17 Gabapentin [Neurontin] 800 mg PO 4X/DAY 05/28/17 Naproxen [Naprosyn] 500 mg PO BID 05/28/17 Ceftriaxone 2 gm IV Q24 #30 vial 06/04/17 Ferrous Sulfate 325 mg PO BIDCM #60 tab 06/04/17 Metronidazole [Flagyl] 500 mg PO TID #60 tab 06/04/17 Oxycodone [Oxyir] 10 mg PO Q6H PRN PRN 4 Days #14 tab 06/04/17 Vancomycin HCl in 5 % Dextrose 1.75 gm IV BID #60 plast..bag 06/04/17 [Vancomycin 1.75 Gram/500Ml-D5w] morphine SR tablet [Ms Contin] 15 mg PO TID 1 Days #3 tab 06/04/17 Acetaminophen 650 mg PO Q4H PRN PRN 06/09/17 Albuterol Aerosols [Ventolin 2.5 mg INHALATION Q4H PRN PRN 06/09/17 Aerosols] Insulin Aspart [Novolog Flexpen] See Protocol SC ACHS 06/09/17 Surgical History: - - Debridement left foot ulcer with versajet including necrotic muscle and widespread debridement plantar foot and incision and drainage left foot 01/24/17, Bone biopsy calcaneal cuboid bone left foot and excisional debridement left plantar foot ulceration 10/18/16, Right foot trans metatarsal amputation 03/04/16, Partial 4th toe amputation right foot at PIP joint 12/09/15, Excisional debridement including fascia left great toe 04/03/15, Right hallux amputation at MTP joint 12/29/14, microdiscectomy ?2, deviated septal repair, ulnar nerve repair, cholecystectomy. Psychiatric History: Depression Lives: Fdc Smoking Status: Former smoker Tobacco Use: Non-smoker Alcohol: None Drugs: None - *Family History Maternal History Items: Cancer, Heart Disease Paternal History Items: Heart Disease Review of Systems Constitutional: Reports: Anorexia, Malaise, Weakness, Fatigue. Denies: Chills, Fever, Weight Change HEENT: Denies: Head Aches, Sinus Congestion, Sinus Drainage Cardiovascular: Reports: Chest Pain, Chest Pressure, Heaviness. Denies: Light Headedness, Orthopnea, Palpitations, Paroxysmal Noc. Dyspnea, Syncope Respiratory: Reports: Shortness of Breath. Denies: Cough, Shortness of breath at rest, Sputum production Gastrointestinal: Reports: Diarrhea, Nausea, Vomiting. Denies: Abdominal Pain Genitourinary: Denies: Dysuria Musculoskeletal: Reports: Foot Pain. Denies: Joint Pain, Joint Tenderness Skin: Reports: Skin Changes. Denies: Rash, Wounds Neurological: Denies: Numbness, Tingling, Focal weakness Psychiatric: Reports: Anxiety, Depression. Denies: Homicidal Ideations, Suicidal Ideations Hematologic/ Lymphatic: Reports: Anemia. Denies: Easy Bruising, Easy Bleeding VTE Information - Inpt Only VTE Present on Admission: No VTE Mechan Device Prophylaxis: SCD's VTE Pharm Prophylaxis ordered?: Yes Subjective: Seated upright in the bedside chair, currently NAD, notes no current chest pressure. Objective: Physical Examination: General: awake, alert, oriented x 3 and cooperative, seated upright in the bedside chair, in no apparent distress. Skin: normal color, turgor, no icterus, cyanosis except LLE w/ noted wound bed of approximately 3 cm x 9 cm x 0.2 cm with periwound erythema, serosanguineous drainage, mild granulation appearance, edematous tissue, tenderness palpation (medial) and additional wound bed of approximately 7.5 cm x 6.5 cm x 2 cm with periwound erythema, serosanguineous drainage, edematous tissue, noted mild yellow slough with some granulation tissue with bone visible (plantar). HEENT: AT/NC, EOMI, PERRLA, mildly dry MM, no carotid bruits or JVD noted. Lungs: CTA bilaterally, moderate effort, moderate decrease BL bases, no rales, ronchi or wheezing. Heart: Regular rate and rhythm; no gallop, rub audible. Abdomen: soft, morbidly obese, NTTP, ND, normal BS, no HSM however habitus makes examination difficult. Extremities: no cyanosis, clubbing, s/p R TMA, see skin above. Neurological: patient awake, alert, oriented x 3; cognitive function intact; pupils equally reactive to light and accomodation; cranial nerves II-XII grossly normal, moving all 4 extremities, no focal deficits, strength moderately to severely globally decreased secondary to acute presentation. Psychiatric: affect appears normal, no acute evidence of depressive or anxiety feelings. - Physical Exam Vital Signs Temp Pulse Resp BP Pulse Ox 97.7 F L 73 16 147/70 H 99 06/09/17 11:57 06/09/17 11:57 06/09/17 11:57 06/09/17 11:57 06/09/17 11:57 Oxygen Delivery Method Room Air Finger Stick Blood Glucose 129 POC Glucose 06/09/17 12:09 POC Glucose 73 Assessment/Plan The patient is a 62 y/o M w/ PMHx: Chronic normocytic anemia (Hgb baseline 10-11), Diabetes mellitus type II with Neuropathy/Uncontrolled, HTN, HLD, Obesity, GERD, Chronic pain syndrome, Morbid Obesity w/ acute infected non-healing diabetic left foot ulcer/wound with chronic osteomyelitis despite recent surgery per Podiatry w/ concerns upon evaluation at [facility] per Dr. Rodriguez in addition to intermittent chest pain history, midsternal pressure with dyspnea associated as well as ongoing intermittent loose stools. (1) Recurrent LLE Infected Non-healing Diabetic Wound w/ Cellulitis w/ Chronic Osteomyelitis w/ Recent Infection Would w/ Proteus mirabilis/MRSA s/p OR recently: Recent as noted admission, s/p I+D w/ excisional debridement and partial ostectomy of the cuboid bone w/ VAC placement, worsened status noted at [facility] per Dr. Rodriguez. Will admit to [facility], maintain on IV vanc and zosyn per discussion w/ ID who evaluated patient at [facility], will obtain repeat Wound Cx and Wound MRSA PCR, obtain admission CBC with differential as well as CRP and ESR, plan repeat CBC in AM, continue affected extremity elevation above heart when seated and in bed, monitor erythema outline with VS checks, transition to dressing changes from VAC, wound RN consultation/evaluation, Podiatry consultation, continue ID consultation, PRN pain regimen, PRN anti-emetic. Discussed with Dr. Rodriguez who is out of town, at this time plan for amputation given serial re-admission and ongoing infection which was also discussed with Dr. Yanes. Given chest discomfort history will perform cardiac evaluation prior. (2) N/V/D, Suspect secondary to Abx Therapy and Acute Infection as noted #1: Will continue to gently hydration, will obtain c diff, stool cx, likely abx therapy, maintain as noted on IV vanc and zosyn for #1, Anti-emetics, pain regimen PRN. If c-diff negative will plan re-addition PPI, add lactobacillus and also add loperamide. (3) Chest Pain: EKG obtained with no acute evidence of ischemia upon presentation, will place on a monitored bed to assure no acute myocardial infarction with serial cardiac enzymes and EKGs. If enzymes remain unremarkable will obtain AM nuclear stress testing given activity limitations. FLP in AM. Mag pending. ASA, NG, morphine. (4) Hypertension: Continue home regimen including losartan, triamterene, hydrochlorothiazide, PRN hydralazine. (5) Hyperlipidemia: Continue home statin regimen. (6) Fe Deficiency Anemia: Maintain on home Fe supplementation, trend CBC, admission CBC pending. (7) Diabetes mellitus type II w/ Neuropathy, Poorly controlled: Hold oral home regimen, continue home insulin regimen, ADA diet, accu checks w/ ISS. Recent HgbA1c>9%, nutrition consulted for education, continue neurontin. (8) Morbid Obesity: Weight loss and lifestyle changes encouraged, nutrition consulted. (9) Anxiety and Depression: Maintain on home regimen Celexa and Wellbutrin. (10) Chronic Pain Syndrome: Maintain on fall precautions, position changes, therapies, home morphine SR and PRN oxycodone w/ breakthrough IV regimen. (11) PETRA: CPAP q HS. (12) GERD: PPI if c-diff negative. (13) DVT Prophylaxis: SCDs, lovenox. (14) CODE status: Discussed CODE status at length including difference between FULL code, DNR-CCA and DNR-CC status. Following discussions about the differences in these status, requested FULL CODE status. Advanced Care Planning Face to Face Time: 16 minutes. (15) Disposition: Notes intention for TCU, refuses to return to prior SNF as displeased with their care. Code Visit Inpatient E&M: 01257 Init Hosp L3 Procedures: 55230 Advncd Care Plan 30 Min
--- NOTE | 2017-06-09 12:31 | EKG12_ITS ---
Test Reason : DIRECT ADMIT Blood Pressure : / mmHG Vent. Rate : 077 BPM Atrial Rate : 077 BPM P-R Int : 168 ms QRS Dur : 084 ms QT Int : 398 ms P-R-T Axes : 039 -16 039 degrees QTc Int : 450 ms Normal sinus rhythm Normal ECG When compared with ECG of 30-MAY-2017 05:14, MANUAL COMPARISON REQUIRED, DATA IS UNCONFIRMED Confirmed by ADOLFO MADSEN, MAC ([id number]), city editor MALGORZATA ZHU ([id number] on 06/20/2017 3:54:30 PM Referred By: Jewell Rubio Confirmed By:MAC MATA MD
--- NOTE | 2017-06-09 12:47 | HP.PCM_ITS ---
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 Qualified Code( s): E11.42 - Type 2 diabetes mellitus with diabetic polyneuropathy; Z79.4 - intermediate designer (current) use of insulin (11) Sleep apnea Status: Chronic Qualifiers: Comment: CPAP 15 cm H20, 100% compliant (12) Neuropathy Status: Chronic Comment: secondary to diabetes (13) Morbid obesity Status: Chronic (14) Anemia Status: Chronic Qualifiers: Anemia type: unspecified type Qualified Code(s): D64.9 - Anemia, unspecified (15) Dyslipidemia Status: Chronic (16) Chronic pain syndrome Status: Chronic (17) Depression Status: Chronic Qualifiers: Depression Type: unspecified Qualified Code(s): F32.9 - Major depressive disorder, single episode, unspecified History of Present Illness Date of Admission: 06/09/17 Chief Complaint: L foot infection, erythema, edema. The patient is a 62 y/o M w/ PMHx: Chronic normocytic anemia (Hgb baseline 10-11 ), Diabetes mellitus type II with Neuropathy/Uncontrolled, HTN, HLD, Obesity, GERD, Chronic pain syndrome, Morbid Obesity, Recent 05/28-06/04/17 admission w/ treatment and evaluation for Proteus mirabilis/MRSA infected non-healing diabetic left foot ulcer/wound with chronic osteomyelitis w/ I+D performed w/ excisional debridement and partial ostectomy of the cuboid bone w/ VAC placement who now re-presents to the [facility] on 06/09/17 as direct admission per Dr. Rodriguez request secondary to erythema, left lower extremity discomfort and pain, edema since discharge from hospital and transition to intermediate facility despite ongoing VAC therapy and IV abx with oral Flagyl and IV vancomycin as well as IV Rocephin per ID direction in addition to several month history of intermittent substernal chest pressure independent of activity with associated dyspnea and occasional nausea without emesis. He additionally noted loose stools for the last week while at SNF with 4-6 loose stools per day without abdominal pain but noted nausea intermittently. 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 Venous insufficiency of both lower extremities (Chronic) S/P transmetatarsal amputation of foot (Chronic) 03/04/[address] 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) Hypertension (Chronic) Amputation of right foot with complication (Chronic) Type 2 diabetes mellitus with diabetic polyneuropathy (Chronic) Stasis dermatitis of both legs (Chronic) Sleep apnea (Chronic) CPAP 15 cm H20, 100% compliant Neuropathy (Chronic) secondary to diabetes Morbid obesity (Chronic) Anemia (Chronic) Dyslipidemia (Chronic) Left ventricular hypertrophy (Chronic) Chronic pain syndrome (Chronic) Depression (Chronic) Allergies cefepime Allergy (Verified 03/06/17 09:46) Hives lisinopril Allergy (Verified 03/06/17 09:46) cough sulfamethoxazole [From ] Allergy (Verified 03/06/17 09:46) turned red trimethoprim [From ] Allergy (Verified 03/06/17 09:46) turned red Home Medications: Ambulatory Orders Medication Instructions Recorded Insulin Detemir [Levemir FlexPen] 100 units SC BID 10/12/14 Citalopram [Celexa] 40 mg PO DAILY 11/15/14 Metformin HCl [Glucophage] 1,000 mg PO BIDCM 11/15/14 Losartan Potassium [Cozaar] 100 mg PO DAILY 06/05/16 buPROPion XL [Wellbutrin Xl] 150 mg PO DAILY 01/21/17 glimepiride 4 mg tablet 4 mg PO BID tab 01/31/17 Insulin Aspart [Novolog Flexpen] 40 units SC TIDCM 03/24/17 Simvastatin 40 mg PO QHS 03/24/17 Triamterene/Hydrochlorothiazid 1 each PO DAILY 03/24/17 [Triamterene-Hctz 37.5-25 mg Cp] Glucerna Shake 120 ml PO 4X/DAY #30 liquid 03/28/17 Gabapentin [Neurontin] 800 mg PO 4X/DAY 05/28/17 Naproxen [Naprosyn] 500 mg PO BID 05/28/17 Ceftriaxone 2 gm IV Q24 #30 vial 06/04/17 Ferrous Sulfate 325 mg PO BIDCM #60 tab 06/04/17 Metronidazole [Flagyl] 500 mg PO TID #60 tab 06/04/17 Oxycodone [Oxyir] 10 mg PO Q6H PRN PRN 4 Days #14 tab 06/04/17 Vancomycin HCl in 5 % Dextrose 1.75 gm IV BID #60 plast..bag 06/04/17 [Vancomycin 1.75 Gram/500Ml-D5w] morphine SR tablet [Ms Contin] 15 mg PO TID 1 Days #3 tab 06/04/17 Acetaminophen 650 mg PO Q4H PRN PRN 06/09/17 Albuterol Aerosols [Ventolin 2.5 mg INHALATION Q4H PRN PRN 06/09/17 Aerosols] Insulin Aspart [Novolog Flexpen] See Protocol SC ACHS 06/09/17 Surgical History: - - Debridement left foot ulcer with versajet including necrotic muscle and widespread debridement plantar foot and incision and drainage left foot 01/24/17, Bone biopsy calcaneal cuboid bone left foot and excisional debridement left plantar foot ulceration 10/18/16, Right foot trans metatarsal amputation 03/04/16, Partial 4th toe amputation right foot at PIP joint 12/09/15, Excisional debridement including fascia left great toe 04/03/15, Right hallux amputation at MTP joint 12/29/14, microdiscectomy ?2, deviated septal repair, ulnar nerve repair, cholecystectomy. Psychiatric History: Depression Lives: Residential Smoking Status: Former smoker Tobacco Use: Non-smoker Alcohol: None Drugs: None - *Family History Maternal History Items: Cancer, Heart Disease Paternal History Items: Heart Disease Review of Systems Constitutional: Reports: Anorexia, Malaise, Weakness, Fatigue. Denies: Chills, Fever, Weight Change HEENT: Denies: Head Aches, Sinus Congestion, Sinus Drainage Cardiovascular: Reports: Chest Pain, Chest Pressure, Heaviness. Denies: Light Headedness, Orthopnea, Palpitations, Paroxysmal Noc. Dyspnea, Syncope Respiratory: Reports: Shortness of Breath. Denies: Cough, Shortness of breath at rest, Sputum production Gastrointestinal: Reports: Diarrhea, Nausea, Vomiting. Denies: Abdominal Pain Genitourinary: Denies: Dysuria Musculoskeletal: Reports: Foot Pain. Denies: Joint Pain, Joint Tenderness Skin: Reports: Skin Changes. Denies: Rash, Wounds Neurological: Denies: Numbness, Tingling, Focal weakness Psychiatric: Reports: Anxiety, Depression. Denies: Homicidal Ideations, Suicidal Ideations Hematologic/ Lymphatic: Reports: Anemia. Denies: Easy Bruising, Easy Bleeding VTE Information - Inpt Only VTE Present on Admission: No VTE Mechan Device Prophylaxis: SCD's VTE Pharm Prophylaxis ordered?: Yes Subjective: Seated upright in the bedside chair, currently NAD, notes no current chest pressure. Objective: Physical Examination: General: awake, alert, oriented x 3 and cooperative, seated upright in the bedside chair, in no apparent distress. Skin: normal color, turgor, no icterus, cyanosis except LLE w/ noted wound bed of approximately 3 cm x 9 cm x 0.2 cm with periwound erythema, serosanguineous drainage, mild granulation appearance, edematous tissue, tenderness palpation ( medial) and additional wound bed of approximately 7.5 cm x 6.5 cm x 2 cm with periwound erythema, serosanguineous drainage, edematous tissue, noted mild yellow slough with some granulation tissue with bone visible (plantar). HEENT: AT/NC, EOMI, PERRLA, mildly dry MM, no carotid bruits or JVD noted. Lungs: CTA bilaterally, moderate effort, moderate decrease BL bases, no rales, ronchi or wheezing. Heart: Regular rate and rhythm; no gallop, rub audible. Abdomen: soft, morbidly obese, NTTP, ND, normal BS, no HSM however habitus makes examination difficult. Extremities: no cyanosis, clubbing, s/p R TMA, see skin above. Neurological: patient awake, alert, oriented x 3; cognitive function intact; pupils equally reactive to light and accomodation; cranial nerves II-XII grossly normal, moving all 4 extremities, no focal deficits, strength moderately to severely globally decreased secondary to acute presentation. Psychiatric: affect appears normal, no acute evidence of depressive or anxiety feelings. - Physical Exam Vital Signs Temp Pulse Resp BP Pulse Ox 97.7 F L 73 16 147/70 H 99 06/09/17 11:57 06/09/17 11:57 06/09/17 11:57 06/09/17 11:57 06/09/17 11:57 Oxygen Delivery Method Room Air Finger Stick Blood Glucose 129 POC Glucose 06/09/17 12:09 POC Glucose 73 Assessment/Plan The patient is a 62 y/o M w/ PMHx: Chronic normocytic anemia (Hgb baseline 10-11 ), Diabetes mellitus type II with Neuropathy/Uncontrolled, HTN, HLD, Obesity, GERD, Chronic pain syndrome, Morbid Obesity w/ acute infected non-healing diabetic left foot ulcer/wound with chronic osteomyelitis despite recent surgery per Podiatry w/ concerns upon evaluation at [facility] per Dr. Rodriguez in addition to intermittent chest pain history, midsternal pressure with dyspnea associated as well as ongoing intermittent loose stools. (1) Recurrent LLE Infected Non-healing Diabetic Wound w/ Cellulitis w/ Chronic Osteomyelitis w/ Recent Infection Would w/ Proteus mirabilis/MRSA s/p OR recently: Recent as noted admission, s/p I+D w/ excisional debridement and partial ostectomy of the cuboid bone w/ VAC placement, worsened status noted at [facility] per Dr. Rodriguez. Will admit to [facility], maintain on IV vanc and zosyn per discussion w/ ID who evaluated patient at [facility], will obtain repeat Wound Cx and Wound MRSA PCR, obtain admission CBC with differential as well as CRP and ESR, plan repeat CBC in AM, continue affected extremity elevation above heart when seated and in bed, monitor erythema outline with VS checks, transition to dressing changes from VAC, wound RN consultation/evaluation, Podiatry consultation, continue ID consultation, PRN pain regimen, PRN anti-emetic. Discussed with Dr. Rodriguez who is out of town, at this time plan for amputation given serial re-admission and ongoing infection which was also discussed with Dr. Yanes. Given chest discomfort history will perform cardiac evaluation prior. (2) N/V/D, Suspect secondary to Abx Therapy and Acute Infection as noted #1: Will continue to gently hydration, will obtain c diff, stool cx, likely abx therapy, maintain as noted on IV vanc and zosyn for #1, Anti-emetics, pain regimen PRN. If c-diff negative will plan re-addition PPI, add lactobacillus and also add loperamide. (3) Chest Pain: EKG obtained with no acute evidence of ischemia upon presentation, will place on a monitored bed to assure no acute myocardial infarction with serial cardiac enzymes and EKGs. If enzymes remain unremarkable will obtain AM nuclear stress testing given activity limitations. FLP in AM. Mag pending. ASA, NG, morphine. (4) Hypertension: Continue home regimen including losartan, triamterene, hydrochlorothiazide, PRN hydralazine. (5) Hyperlipidemia: Continue home statin regimen. (6) Fe Deficiency Anemia: Maintain on home Fe supplementation, trend CBC, admission CBC pending. (7) Diabetes mellitus type II w/ Neuropathy, Poorly controlled: Hold oral home regimen, continue home insulin regimen, ADA diet, accu checks w/ ISS. Recent HgbA1c>9%, nutrition consulted for education, continue neurontin. (8) Morbid Obesity: Weight loss and lifestyle changes encouraged, nutrition consulted. (9) Anxiety and Depression: Maintain on home regimen Celexa and Wellbutrin. (10) Chronic Pain Syndrome: Maintain on fall precautions, position changes, therapies, home morphine SR and PRN oxycodone w/ breakthrough IV regimen. (11) PETRA: CPAP q HS. (12) GERD: PPI if c-diff negative. (13) DVT Prophylaxis: SCDs, lovenox. (14) CODE status: Discussed CODE status at length including difference between FULL code, DNR-CCA and DNR-CC status. Following discussions about the differences in these status, requested FULL CODE status. Advanced Care Planning Face to Face Time: 16 minutes. (15) Disposition: Notes intention for TCU, refuses to return to prior SNF as displeased with their care. Code Visit Inpatient E&M: 48577 Init Hosp L3 Procedures: 11391 Advncd Care Plan 30 Min
--- NOTE | 2017-06-09 13:11 | RAD_ITS ---
STUDY: X-RAY CHEST REASON FOR EXAM: Male, 62 years old. Chest pain, nonhealing left foot wound ulcer. TECHNIQUE: Frontal and lateral views of the chest. COMPARISON: May 28, 2017. FINDINGS: There is a right PICC line with tip in the distal superior vena cava versus within the proximal right atrium. The lungs are clear and expanded. There is no demonstrated pleural abnormality. Normal size heart. Normal mediastinum and valencia. Normal visualized pulmonary arteries. Normal visualized aortic arch and descending thoracic aorta. Normal visualized thoracic spine. Normal visualized ribs, clavicles, and shoulders. There is no demonstrated abnormality of the visualized soft tissue structures of the upper abdomen. RAD/Chest PA and Lateral IMPRESSION: Stable exam. No evident acute cardiopulmonary disease. Electronically Signed: Solis Lemon MD at 16:25 EDT , Service support ,
--- NOTE | 2017-06-09 13:17 | NURSING ---
Pt. off the floor to radiology.
[2017-06-09] MEDS: Morphine 2 MG/ML Syringe IV (13:45)
[2017-06-09] MEDS: morphine SR 15 MG Tablet PO ×2 (13:47→21:57)
[2017-06-09 13:53] LABS: Absolute Lymphocyte Count 1.84 X10^3/ul (0.83-4.51); Absolute Neutrophil Count 5.4 X10^3/uL (2.0-7.7); Basophil# 0.02 X10^3/uL; Basophil% 0.2 % (0-1); Eosinophil# 0.35 X10^3/uL; Eosinophils% 4.3 % (0-5); Hemoglobin 8.4 g/dl (13.0-16.5); Lymphocyte # 1.84 X10^3/ul (4.0); Lymphocyte % 22.5 % (19-41); Mean Corpuscular Hgb 25.7 pg (27.0-32.0); Mean Corpuscular Volume 85.6 fL (80-94); Mean Platelet Vol. 8.4 fl (6.2-12.0); Monocyte# 0.57 X10^3/uL; Neutrophil # 5.37 X10^3/uL (2.7-7.7); Neutrophil % 65.9 % (47-70); Platelet Count 345 K/mm3 (150-450); RBC Distribution Width CV 15.9 % (11.6-14.6); RBC Distribution Width SD 49.4 fl (35.1-43.9); Red Blood Count 3.27 M/mm3 (4.6-6.2); White Blood Count 8.2 K/mm3 (4.4-11.0)
[2017-06-09 13:54] LABS: POSITIVE COUNT NO; POSITIVE DIFFERENTIAL NO; POSITIVE MORPHOLOGY NO
[2017-06-09 13:56] LABS: Erythrocyte Sedimentation Rate 52 mm/hr (0-20)
[2017-06-09 14:12] LABS: Anion Gap 7 (5-15); BUN 18 mg/dL (7-18); Calcium,Total 8.9 mg/dL (8.5-10.1); Chloride 104 mmol/L (98-107); EST Glomerular Filtration Rate 81 mL/min (>60); Est Glom Filt Rate - Afr Amer 98 mL/min (>60); Estimated Creatinine Clearance 92.72 ml/min; Glucose 81 mg/dL (74-106); Magnesium 2.3 mg/dL (1.6-2.6); Potassium 4.3 mmol/L (3.5-5.1); Sodium Level 139 mmol/L (136-145)
[2017-06-09] MEDS: Piperacil/Tazobactam 3.375 GM/50 ML ML IV ×2 (14:29→21:58)
--- NOTE | 2017-06-09 14:34 | NURSING ---
Charge nurse, Stacia, notified of need for home med list from [facility]. Stacia to call and request from [facility]CF.
--- NOTE | 2017-06-09 14:51 | NURSING ---
This RN called [facility] and spoke with admissions regarding patient that is currently residing there. Notified them that patient was admitted to [facility] today as a direct admission from Dr. Rodriguez's office for his infected wound. Requested home med list, and last vancomycin trough- fax number given for unit. Notified that same will be sent by nurse from [facility].
--- NOTE | 2017-06-09 15:51 | CASEMGMT ---
Social Work Note SW met with pt as pt is from [facility]. SW met with pt to discuss discharge plans. SW introduced self and role at [facility]. Per pt he is interested in going to TCU at discharge and doesn't want to go back to [facility]. RANDY placed a call to Libby who is covering for Angélica in TCU to inform her of referral. Libby states that TCU has beds available and she will put pt on TCU list and follow along with him. Pt denied additional needs or concerns at this time. RANDY will update Chelita MELENDEZ who will be following pt on MS2. Plan: TCU [facility] Elliott [employer], [employer]OX [employer]
[2017-06-09 15:53] VITALS: O2SAT 94
[2017-06-09] MEDS: Enoxaparin 40 MG/0.4 ML Syringe SC (15:58)
[2017-06-09] MEDS: Gabapentin 800 MG Tablet PO ×2 (15:58→21:57)
[2017-06-09] MEDS: Ferrous Sulfate 325 MG Tablet PO (15:58)
--- NOTE | 2017-06-09 15:58 | NURSING ---
wound photo: left plantar foot
--- NOTE | 2017-06-09 15:59 | NURSING ---
wound photo: left medial foot
[2017-06-09] MEDS: Glucerna Shake 120 ML LIQUID PO ×2 (16:07→21:58)
[2017-06-09 16:16] LABS: Bedside Glucose 112 mg/dL (70-110)
--- NOTE | 2017-06-09 16:19 | NURSING ---
a second call was placed to [facility] regarding patient's medication list- notified that it would be sent over at this time. Fax number given again. Notified that they are still awaiting vanc trough from last draw.
[2017-06-09 16:30] LABS: M R Staph aureus DNA By PCR POSITIVE (Negative); Probe Check PASS; Staph aureus DNA By PCR POSITIVE (Negative)
--- NOTE | 2017-06-09 16:49 | PCM.RX.CS ---
Consult Pharmacy has been consulted to manage selected antiobiotic: Vancomycin Type of Consult: New start Suspected Infection: Osteomyelitis Prior Doses of Antibiotics Received/Current Regimen: Vancomycin 1750mg IV Q12hrs at [facility]- last admin 06/09/17 @0600 per nurse at facility Labs: Sodium 139 mmol/L (136-145) 06/09/17 13:45 Potassium 4.3 mmol/L (3.5-5.1) 06/09/17 13:45 Chloride 104 mmol/L (98-107) 06/09/17 13:45 Carbon Dioxide 28.0 mmol/L (21.0-32.0) 06/09/17 13:45 Anion Gap 7 (5-15) 06/09/17 13:45 BUN 18 mg/dL (7-18) 06/09/17 13:45 Creatinine 1.00 mg/dL (0.70-1.30) 06/09/17 13:45 Est GFR (MDRD) Af Amer 98 mL/min (>60) 06/09/17 13:45 Est GFR (MDRD) Non-Af 81 mL/min (>60) 06/09/17 13:45 BUN/Creatinine Ratio 18.0 RATIO (10-20) 06/09/17 13:45 Glucose 81 mg/dL (74-106) 06/09/17 13:45 Microbiology: Microbiology 06/09/17 13:35 Stool C. difficile DNA Amplification - Final Weight used for dosin.2 kg Estimated Creatinine Clearance: 92ml/min Goal Trough: 15-20 mcg/mL Pharmacy Plan for Drug Dosing: Pharmacy to manage vancomycin per consult for the treatment of osteomyelitis. The patient was previously admitted to [facility] and received antibiotics for an osteo infection. At that time, the patient was stable on Vancomycin 1750mg IV Q12hrs, and had a therapeutic trough prior to discharge on this regimen. the patient was also on this regimen at the [facility] where he was, prior to admission. Pharmacy contacted the SNF to see about the last trough drawn, and one was drawn 06/09/17 @0600, but the results have not been reported. In order to not delay antibiotic therapy, will give the dose this evening, then get a trough tomorrow AM prior to the next dose. the patient's renal function has been stable based on admitting labs comparing them to the previous admission. Pharmacy will evaluate the patient tomorrow, and make changes to the regimen if needed based on the trough result. PLAN/RECOMMENDATIONS 1. Vancomycin 1750mg IV Q12hrs 2. Trough 06/10/17 @0530 (Prior to 0600 dose) 3. Pharmacy will continue to monitor daily and make changes as appropriate
--- NOTE | 2017-06-09 16:56 | PHA.PHARE_ITS ---
Consult Pharmacy has been consulted to manage selected antiobiotic: Vancomycin Type of Consult: New start Suspected Infection: Osteomyelitis Prior Doses of Antibiotics Received/Current Regimen: Vancomycin 1750mg IV Q12hrs at [facility]- last admin 06/09/17 @ 0600 per nurse at facility Labs: Sodium 139 mmol/L (136-145) 06/09/17 13:45 Potassium 4.3 mmol/L (3.5-5.1) 06/09/17 13:45 Chloride 104 mmol/L (98-107) 06/09/17 13:45 Carbon Dioxide 28.0 mmol/L (21.0-32.0) 06/09/17 13:45 Anion Gap 7 (5-15) 06/09/17 13:45 BUN 18 mg/dL (7-18) 06/09/17 13:45 Creatinine 1.00 mg/dL (0.70-1.30) 06/09/17 13:45 Est GFR (MDRD) Af Amer 98 mL/min (>60) 06/09/17 13:45 Est GFR (MDRD) Non-Af 81 mL/min (>60) 06/09/17 13:45 BUN/Creatinine Ratio 18.0 RATIO (10-20) 06/09/17 13:45 Glucose 81 mg/dL (74-106) 06/09/17 13:45 Microbiology: Microbiology 06/09/17 13:35 Stool C. difficile DNA Amplification - Final Weight used for dosin.2 kg Estimated Creatinine Clearance: 92ml/min Goal Trough: 15-20 mcg/mL Pharmacy Plan for Drug Dosing: Pharmacy to manage vancomycin per consult for the treatment of osteomyelitis. The patient was previously admitted to [facility] and received antibiotics for an osteo infection. At that time, the patient was stable on Vancomycin 1750mg IV Q12hrs, and had a therapeutic trough prior to discharge on this regimen. the patient was also on this regimen at the [facility] where he was, prior to admission. Pharmacy contacted the SNF to see about the last trough drawn, and one was drawn 06/09/17 @0600, but the results have not been reported. In order to not delay antibiotic therapy, will give the dose this evening, then get a trough tomorrow AM prior to the next dose. the patient's renal function has been stable based on admitting labs comparing them to the previous admission. Pharmacy will evaluate the patient tomorrow, and make changes to the regimen if needed based on the trough result. PLAN/RECOMMENDATIONS 1. Vancomycin 1750mg IV Q12hrs 2. Trough 06/10/17 @0530 (Prior to 0600 dose) 3. Pharmacy will continue to monitor daily and make changes as appropriate
[2017-06-09] MEDS: Pantoprazole Sodium 40 MG Tablet PO (17:34)
[2017-06-09 17:39] VITALS: BP 148/74; PULSE 75; RESP 16; TEMP 36.6; O2SAT 95
[2017-06-09 19:00] VITALS: PULSE 77
--- NOTE | 2017-06-09 20:23 | CON.PCM_ITS ---
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 (7) Gait instability Status: Chronic (8) Delayed wound healing Status: Chronic (9) Malnutrition Status: Chronic (10) Charcot's joint of left foot Status: Chronic (11) Morbid obesity Status: Chronic Reason for Consult Date of Consultation: 06/09/17 Reason for Consultation: chronic left foot ulcer with bone and soft tissue infection History of Present Illness: The patient is a 62 year old M was seen bedside for left chronic foot ulcer with recent exacerbation. He underwent a recent bone biopsy and debridement with Dr. Rodriguez about 1-1/2 weeks ago he continues on IV vancomycin he denies fever, chill, vomiting. He does have some diarrhea and is being worked up for c -diff. He denies foot pain. He is previously known to me for complicated foot ulcers and Charcot complicated by diabetes. His children are bedside. 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) Acute osteomyelitis of left foot (Chronic) Osteomyelitis (Chronic) Non-pressure chronic ulcer of left heel and midfoot with muscle involvement without evidence of necrosis (Chronic) Infection of left foot (Chronic) Hypersomnia (Chronic) Ulcer of midfoot with necrosis of muscle (Chronic) Nocturnal hypoxemia (Chronic) Abscess of left foot (Chronic) Diabetic ulcer of left foot with fat layer exposed (Chronic) Non-pressure chronic ulcer of left heel and midfoot with fat layer exposed ( Chronic) 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 Venous insufficiency of both lower extremities (Chronic) S/P transmetatarsal amputation of foot (Chronic) 03/04/[address] 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) Hypertension (Chronic) Amputation of right foot with complication (Chronic) Type 2 diabetes mellitus with diabetic polyneuropathy (Chronic) Stasis dermatitis of both legs (Chronic) Sleep apnea (Chronic) CPAP 15 cm H20, 100% compliant Neuropathy (Chronic) secondary to diabetes Morbid obesity (Chronic) Anemia (Chronic) Dyslipidemia (Chronic) Left ventricular hypertrophy (Chronic) Chronic pain syndrome (Chronic) Depression (Chronic) Allergies cefepime Allergy (Verified 03/06/17 09:46) Hives lisinopril Allergy (Verified 03/06/17 09:46) cough sulfamethoxazole [From Septra] Allergy (Verified 03/06/17 09:46) turned red trimethoprim [From Octra] Allergy (Verified 03/06/17 09:46) turned red Home Medications: Ambulatory Orders Medication Instructions Recorded Insulin Detemir [Levemir FlexPen] 100 units SC BID 10/12/14 Citalopram [Celexa] 40 mg PO DAILY 11/15/14 Metformin HCl [Glucophage] 1,000 mg PO BIDCM 11/15/14 Losartan Potassium [Cozaar] 100 mg PO DAILY 06/05/16 buPROPion XL [Wellbutrin Xl] 150 mg PO DAILY 01/21/17 glimepiride 4 mg tablet 4 mg PO BID tab 01/31/17 Insulin Aspart [Novolog Flexpen] 30 units SC TIDCM 03/24/17 Simvastatin 40 mg PO QHS 03/24/17 Triamterene/Hydrochlorothiazid 1 each PO DAILY 03/24/17 [Triamterene-Hctz 37.5-25 mg Cp] Glucerna Shake 120 ml PO 4X/DAY #30 liquid 03/28/17 Gabapentin [Neurontin] 800 mg PO 4X/DAY 05/28/17 Naproxen [Naprosyn] 500 mg PO BID 05/28/17 Ceftriaxone 2 gm IV Q24 #30 vial 06/04/17 Ferrous Sulfate 325 mg PO BIDCM #60 tab 06/04/17 Metronidazole [Flagyl] 500 mg PO TID #60 tab 06/04/17 Oxycodone [Oxyir] 10 mg PO Q6H PRN PRN 4 Days #14 tab 06/04/17 Vancomycin HCl in 5 % Dextrose 1.75 gm IV BID #60 plast..bag 06/04/17 [Vancomycin 1.75 Gram/[id number]] morphine SR tablet [Ms Contin] 15 mg PO TID 1 Days #3 tab 06/04/17 Acetaminophen 650 mg PO Q4H PRN PRN 06/09/17 Albuterol Aerosols [Ventolin 2.5 mg INHALATION Q4H PRN PRN 06/09/17 Aerosols] Insulin Aspart [Novolog Flexpen] See Protocol SC ACHS 06/09/17 Surgical History: - - Debridement left foot ulcer with versajet including necrotic muscle and widespread debridement plantar foot and incision and drainage left foot 01/24/17, Bone biopsy calcaneal cuboid bone left foot and excisional debridement left plantar foot ulceration 10/18/16, Right foot trans metatarsal amputation 03/04/16, Partial 4th toe amputation right foot at PIP joint 12/09/15, Excisional debridement including fascia left great toe 04/03/15, Right hallux amputation at MTP joint 12/29/14, microdiscectomy ?2, deviated septal repair, ulnar nerve repair, cholecystectomy. Psychiatric History: Depression Lives: Group Home Smoking Status: Former smoker Tobacco Use: Non-smoker Alcohol: None Drugs: None - *Family History Maternal History Items: Cancer, Heart Disease Paternal History Items: Heart Disease Review of Systems Constitutional: Reports: Fatigue. Denies: Chills, Fever, Weakness Cardiovascular: Denies: Chest Pain, Claudication Gastrointestinal: Denies: Nausea, Vomiting Musculoskeletal: Denies: Foot Pain, Joint Tenderness Skin: Reports: Skin Changes, Wounds - increased swelling and redness Neurological: Reports: Balance problems, Numbness, Tingling - Physical Exam General: Alert, Oriented x3, Cooperative HEENT: Atraumatic Extremities: No cyanosis, Capillary Refill Less than 3 Seconds - all digits left foot and transmetatarsal amputation stump site right foot, No Calf Tenderness - negative andrzej and richmond signs bilateral, Edema - bilateral lower extremities, Peripheral Pulses Normal Skin: Ulcer/ Wound - plantar left foot with exposed bone and muscle with devitalized center. peripheral edema noted.there is also a medial left foot ulcer that is granular and fibrous base with delayed healing. there is no odor or sebastien purulence. these ulcers are chronic. there is serous joint fluid expressed from the plantar left foot Musculoskeletal: No Tenderness to Palpation of Joints or Extremities, Muscle Wasting, - - right healed transmetatarsal amputation stump site. no rearfoot or ankle laxity with passive manipulation compared to previous visits at this time Neurological: - - lack of epicritic sensation via light touch bilateral lower extremity Psych/Mental Status: Normal Affect, Appropriate Vital Signs Temp Pulse Resp BP Pulse Ox 97.8 F 75 16 148/74 H 95 06/09/17 17:39 06/09/17 17:39 06/09/17 17:39 06/09/17 17:39 06/09/17 17:39 Oxygen Delivery Method Room Air Weight: 155.2 kg Body Mass Index (BMI) 42.7 Finger Stick Blood Glucose 129 Intake and Output for Last 24 Hours 06/07/17 06/08/17 06/09/17 23:59 23:59 23:59 Intake Total 595 / 595 Output Total 600 / 600 Balance -5 / -5 Microbiology Past 72 Hours 06/09/17 13:35 C. difficile DNA Amplification - Final Stool Laboratory Tests Past 24 Hrs 06/09/17 06/09/17 06/09/17 13:45 13:45 14:15 WBC 8.2 RBC 3.27 L Hgb 8.4 L Hct 28.0 L MCV 85.6 MCH 25.7 L MCHC 30.0 L RDW 15.9 H RDW Differential 49.4 H Plt Count 345 MPV 8.4 Immature Gran % (Auto) 0.100 Neut % (Auto) 65.9 Lymph % (Auto) 22.5 Sabine % (Auto) 7.0 Eos % (Auto) 4.3 Baso % (Auto) 0.2 Absolute Neuts (auto) 5.4 Absolute Lymphs (auto) 1.84 Total Counted Not Reportable ESR 52 H Sodium 139 Potassium 4.3 Chloride 104 Carbon Dioxide 28.0 Anion Gap 7 BUN 18 Creatinine 1.00 Estim Creat Clear Calc 92.72 Est GFR (MDRD) Af Amer 98 Est GFR (MDRD) Non-Af 81 BUN/Creatinine Ratio 18.0 Glucose 81 Calcium 8.9 Magnesium 2.3 Troponin I < 0.02 C-React Prot Ext Range 22.20 H S.aureus Protein A PCR POSITIVE H MRSA (PCR) POSITIVE H 06/09/17 16:50 WBC RBC Hgb Hct MCV MCH MCHC RDW RDW Differential Plt Count MPV Immature Gran % (Auto) Neut % (Auto) Lymph % (Auto) Sabine % (Auto) Eos % (Auto) Baso % (Auto) Absolute Neuts (auto) Absolute Lymphs (auto) Total Counted ESR Sodium Potassium Chloride Carbon Dioxide Anion Gap BUN Creatinine Estim Creat Clear Calc Est GFR (MDRD) Af Amer Est GFR (MDRD) Non-Af BUN/Creatinine Ratio Glucose Calcium Magnesium Troponin I < 0.02 C-React Prot Ext Range S.aureus Protein A PCR MRSA (PCR) POC Glucose 06/09/17 06/09/17 16:01 12:09 POC Glucose 112 H 73 Assessment/Plan left ulcer with infection and acute osteomyelitis charcot left foot diabetes with neuropathy delayed healing diarrhea; rule out c-diff other comorbidities healed right transmetatarsal amputation I reviewed and discussed his case this evening. I reviewed his diagnostic data including his white blood cell count is at 8.2 ESR is around 50. His most recent MRI of the left foot was also reviewed. This is a chronic condition and his healing has been significantly impaired by his medical comorbidities and medical noncompliance. I reviewed his most recent biopsy results of the plantar cuboid in which both pathology and microbiology speciments demonstrated acute osteomyelitis. We discussed his initial goal of treatment is to confine and control his infection to his foot. We also discussed his future definitive surgery to allow improve functionality and quality of life. We discussed a below -knee amputation versus Charcot reconstruction. I am concerned of the amount of infection and inability to remain noninfected each time he is taken off of the antibiotics. At this time I do not recommend placing additional hardware at this site or proceeding forward with the charcot reconstruction surgery. It is also noted he has had difficulties at the care home facility. I recommend a below-knee amputation at this time and he is amenable. We discussed the goals of the procedure and his anticipated postoperative course and progression to prosthetic use. This opportunity will provide him with a more functional limb, medical stability, and improve his quality of life. He plans to have the surgery with Dr. Rodriguez when he returns next week. Cardiac clearance is pending. He is amendable to recover in the transitional care unit if this option is available. In the meantime I recommend continued dressing changes with Aquacel, gauze, abdominal pad, Kerlix, Terry wrap. He will continue on antibiotics at this time. His C. difficile workup is pending. Medical management and DVT prophylaxis per primary team is appreciated. His right lower extremity was evaluated and brief in intact. Thank you for the consultation. Please do not hesitate to call if you have any questions. Cynthia Yanes, [facility] [phone]
[2017-06-09 21:52] VITALS: BP 146/56; PULSE 70; RESP 16; TEMP 36.9; O2SAT 96
[2017-06-09] MEDS: Atorvastatin Calcium 20 MG Tablet PO (21:57)
[2017-06-09] MEDS: Naproxen 500 MG Tablet PO (21:58)
[2017-06-09 22:15] LABS: Bedside Glucose 68 mg/dL (70-110)
--- NOTE | 2017-06-09 22:16 | NURSING ---
blood glucose 68, gave snack will recheck and page hospitalist.
[2017-06-09 22:50] LABS: Bedside Glucose 99 mg/dL (70-110)
[2017-06-10] VITALS (14 sets, daily range): BP systolic 121–158; BP diastolic 63–78; PULSE 65–75; RESP 16–18; TEMP 36.4–36.8; O2SAT 96–100
[2017-06-10] MEDS: oxyCODONE 5 MG Tablet 10 MG PO ×3 (02:02→19:44)
[2017-06-10] MEDS: Acetaminophen 325 MG Tablet 650 MG PO ×2 (02:02→19:45)
[2017-06-10 02:16] LABS: Bedside Glucose 159 mg/dL (70-110)
[2017-06-10 03:25] LABS: Absolute Lymphocyte Count 1.52 X10^3/ul (0.83-4.51); Basophil# 0.04 X10^3/uL; Basophil% 0.6 % (0-1); Eosinophil# 0.34 X10^3/uL; Eosinophils% 5.1 % (0-5); Hematocrit 24.2 % (40-54); Hemoglobin 7.3 g/dl (13.0-16.5); Lymphocyte # 1.52 X10^3/ul (4.0); Lymphocyte % 22.8 % (19-41); Mean Corp Hgb Conc 30.2 g/gl (32-36); Mean Corpuscular Hgb 26.4 pg (27.0-32.0); Mean Corpuscular Volume 87.7 fL (80-94); Mean Platelet Vol. 9.1 fl (6.2-12.0); Monocyte# 0.71 X10^3/uL; Monocyte% 10.6 % (0-10); Neutrophil # 4.04 X10^3/uL (2.7-7.7); Neutrophil % 60.6 % (47-70); Platelet Count 335 K/mm3 (150-450); RBC Distribution Width CV 15.7 % (11.6-14.6); RBC Distribution Width SD 47.2 fl (35.1-43.9); Red Blood Count 2.76 M/mm3 (4.6-6.2); White Blood Count 6.7 K/mm3 (4.4-11.0)
[2017-06-10 03:26] LABS: POSITIVE COUNT NO; POSITIVE DIFFERENTIAL NO; POSITIVE MORPHOLOGY NO
--- NOTE | 2017-06-10 03:51 | NURSING ---
patient has vancomycin and zosyn due at 0600. Spoke with Gilson in pharmacy who verified that the vancomycin and the PREMIXED bag of zosyn was compatible and it is okay to infuse at 0600 through the same PICC line.
[2017-06-10 03:59] LABS: Anion Gap 8 (5-15); BUN 17 mg/dL (7-18); BUN/Creat Ratio 16.5 RATIO (10-20); Chloride 106 mmol/L (98-107); Cholesterol 60 mg/dL (200); Creatinine, Serum 1.03 mg/dL (0.70-1.30); EST Glomerular Filtration Rate 78 mL/min (>60); Est Glom Filt Rate - Afr Amer 94 mL/min (>60); Estimated Creatinine Clearance 90.01 ml/min; Glucose 144 mg/dL (74-106); High Density Lipoprotein 24 mg/dL; Potassium 4.1 mmol/L (3.5-5.1); Sodium Level 142 mmol/L (136-145); Triglycerides 126 mg/dL; Very Low Density Lipoprotein 25 mg/dL (5-40)
[2017-06-10] MEDS: morphine SR 15 MG Tablet PO ×3 (05:35→22:18)
[2017-06-10] MEDS: Piperacil/Tazobactam 3.375 GM/50 ML ML IV ×3 (05:36→22:17)
[2017-06-10] MEDS: 0.9% Normal Saline 1,000 ML 100 ML IV ×2 (05:40→22:17)
--- NOTE | 2017-06-10 05:55 | EKG12_ITS ---
Test Reason : AM EKG Blood Pressure : / mmHG Vent. Rate : 062 BPM Atrial Rate : 062 BPM P-R Int : 184 ms QRS Dur : 094 ms QT Int : 424 ms P-R-T Axes : 049 -11 050 degrees QTc Int : 430 ms Normal sinus rhythm Normal ECG Confirmed by ANITA MADSEN, NATALY ([id number]), magazine editor MALGORZATA ZHU ([id number] on 06/12/2017 1:51:16 PM Referred By: Jewell Rubio Confirmed By:NATALY HOWARD MD
[2017-06-10 06:38] LABS: Vancomycin, Trough Level 18.4 ug/mL (5.0-15.0)
--- NOTE | 2017-06-10 06:44 | PCM.RX.CS ---
Consult Pharmacy has been consulted to manage selected antiobiotic: Vancomycin Type of Consult: Follow-up Suspected Infection: Osteomyelitis Prior Doses of Antibiotics Received/Current Regimen: Vanocmyin 1750mg IV Q12H starting 06/09/17 at 1858 at [facility] (since 06/04/17 at [facility]). Labs: Sodium 142 mmol/L (136-145) 06/10/17 03:03 Potassium 4.1 mmol/L (3.5-5.1) 06/10/17 03:03 Chloride 106 mmol/L (98-107) 06/10/17 03:03 Carbon Dioxide 28.0 mmol/L (21.0-32.0) 06/10/17 03:03 Anion Gap 8 (5-15) 06/10/17 03:03 BUN 17 mg/dL (7-18) 06/10/17 03:03 Creatinine 1.03 mg/dL (0.70-1.30) 06/10/17 03:03 Est GFR (MDRD) Af Amer 94 mL/min (>60) 06/10/17 03:03 Est GFR (MDRD) Non-Af 78 mL/min (>60) 06/10/17 03:03 BUN/Creatinine Ratio 16.5 RATIO (10-20) 06/10/17 03:03 Glucose 144 mg/dL (74-106) H 06/10/17 03:03 Vancomycin Trough 18.4 ug/mL (5.0-15.0) H 06/10/17 05:20 Microbiology: Microbiology 06/09/17 13:35 Stool C. difficile DNA Amplification - Final Weight used for dosin.2 kg Estimated Creatinine Clearance: 92 ml/min Goal Trough: 15-20 mcg/mL Pharmacy Plan for Drug Dosing: Pts scheduled trough on 06/10/17 at 0530 came back at 18.4. Goal range of 15-20. Plan is to continue current dose and get another trough 06/13/17 at 0530. Pharmacy Service will continue to monitor and adjust dosing as required. Follow-Up Labs: Trough Vancomycin - 06/13/17 at 0530 Labs to be done on [date and time ordered]: trough on 06/13/17 at 0530
--- NOTE | 2017-06-10 06:53 | PHA.PHARE_ITS ---
Consult Pharmacy has been consulted to manage selected antiobiotic: Vancomycin Type of Consult: Follow-up Suspected Infection: Osteomyelitis Prior Doses of Antibiotics Received/Current Regimen: Vanocmyin 1750mg IV Q12H starting 06/09/17 at 1858 at [facility] (since 06/04/17 at ) . Labs: Sodium 142 mmol/L (136-145) 06/10/17 03:03 Potassium 4.1 mmol/L (3.5-5.1) 06/10/17 03:03 Chloride 106 mmol/L (98-107) 06/10/17 03:03 Carbon Dioxide 28.0 mmol/L (21.0-32.0) 06/10/17 03:03 Anion Gap 8 (5-15) 06/10/17 03:03 BUN 17 mg/dL (7-18) 06/10/17 03:03 Creatinine 1.03 mg/dL (0.70-1.30) 06/10/17 03:03 Est GFR (MDRD) Af Amer 94 mL/min (>60) 06/10/17 03:03 Est GFR (MDRD) Non-Af 78 mL/min (>60) 06/10/17 03:03 BUN/Creatinine Ratio 16.5 RATIO (10-20) 06/10/17 03:03 Glucose 144 mg/dL (74-106) H 06/10/17 03:03 Vancomycin Trough 18.4 ug/mL (5.0-15.0) H 06/10/17 05:20 Microbiology: Microbiology 06/09/17 13:35 Stool C. difficile DNA Amplification - Final Weight used for dosin.2 kg Estimated Creatinine Clearance: 92 ml/min Goal Trough: 15-20 mcg/mL Pharmacy Plan for Drug Dosing: Pts scheduled trough on 06/10/17 at 0530 came back at 18.4. Goal range of 15- 20. Plan is to continue current dose and get another trough 06/13/17 at 0530. Pharmacy Service will continue to monitor and adjust dosing as required. Follow-Up Labs: Trough Vancomycin - 06/13/17 at 0530 Labs to be done on [date and time ordered]: trough on 06/13/17 at 0530
--- NOTE | 2017-06-10 07:05 | PCM.PN.HOSP ---
Subjective: Patient overnight notes pain controlled, no nausea or emesis and slept well on his CPAP therapy ?5 hours which is improved since prior but still having loose stools. Urged patient to notify nurse for loperamide given unremarkable C. difficile assay. He denies any associated abdominal cramping or pain with the diarrhea. Denies any chest discomfort overnight. Patient denies fevers, chills, nausea, emesis, abdominal pain, recurrent or worsened chest pain or dyspnea. Objective: Physical Examination: General: awake, alert, oriented x 3 and cooperative, seated upright at the bedside, in no apparent distress. Skin: normal color, turgor, no icterus, cyanosis except dressed BL LE, LLE w/ wounds, dressing changes upon admission w/ noted wound bed of approximately 3 cm x 9 cm x 0.2 cm with periwound erythema, serosanguineous drainage, mild granulation appearance, edematous tissue, tenderness palpation (medial) and additional wound bed of approximately 7.5 cm x 6.5 cm x 2 cm with periwound erythema, serosanguineous drainage, edematous tissue, noted mild yellow slough with some granulation tissue with bone visible (plantar). HEENT: AT/NC, EOMI, PERRLA, improved MMM. Lungs: CTA bilaterally, moderate effort, moderate decrease BL bases, no rales, ronchi or wheezing. Heart: Regular rate and rhythm; no gallop, rub audible. Abdomen: soft, morbidly obese, NTTP, ND, normal BS. Extremities: no cyanosis, clubbing, s/p R TMA, see skin above. Neurological: patient awake, alert, oriented x 3; cognitive function intact; pupils equally reactive to light and accomodation; cranial nerves II-XII grossly normal, moving all 4 extremities, no focal deficits, strength improved, moderately globally decreased secondary to acute presentation. Psychiatric: affect appears normal, no acute evidence of depressive or anxiety feelings. Vitals/I&O's: Vital Signs Temp Pulse Resp BP Pulse Ox 97.7 F L 67 16 156/78 H 100 06/10/17 02:00 06/10/17 02:08 06/10/17 02:00 06/10/17 02:00 06/10/17 02:00 Oxygen Delivery Method Room Air Weight: 342 lb 2.519 oz Body Mass Index (BMI) 42.7 Finger Stick Blood Glucose 129 Intake and Output for Last 24 Hours 06/08/17 06/09/17 06/10/17 23:59 23:59 23:59 Intake Total 595 / 595 2030 Output Total 600 / 600 1000 / 1000 Balance -5 / -5 1031 / 1031 Microbiology Past 72 Hours 06/09/17 13:35 Stool C. difficile DNA Amplification - Final Laboratory Results 06/09/17 12:09: POC Glucose 73 06/09/17 13:45: WBC 8.2, RBC 3.27 L, Hgb 8.4 L, Hct 28.0 L, MCV 85.6, MCH 25.7 L, MCHC 30.0 L, RDW 15.9 H, RDW Differential 49.4 H, Plt Count 345, MPV 8.4, Immature Gran % (Auto) 0.100, Neut % (Auto) 65.9, Lymph % (Auto) 22.5, Yancey % (Auto) 7.0, Eos % (Auto) 4.3, Baso % (Auto) 0.2, Absolute Neuts (auto) 5.4, Absolute Lymphs (auto) 1.84, Total Counted Not Reportable, ESR 52 H 06/09/17 13:45: Sodium 139, Potassium 4.3, Chloride 104, Carbon Dioxide 28.0, Anion Gap 7, BUN 18, Creatinine 1.00, Estim Creat Clear Calc 92.72, Est GFR (MDRD) Af Amer 98, Est GFR (MDRD) Non-Af 81, BUN/Creatinine Ratio 18.0, Glucose 81, Calcium 8.9, Magnesium 2.3, Troponin I < 0.02, C-React Prot Ext Range 22.20 H 06/09/17 14:15: S.aureus Protein A PCR POSITIVE H, MRSA (PCR) POSITIVE H 06/09/17 16:01: POC Glucose 112 H 06/09/17 16:50: Troponin I < 0.02 06/09/17 20:58: Troponin I < 0.02 06/09/17 22:00: POC Glucose 68 L 06/09/17 22:48: POC Glucose 99 06/10/17 02:08: POC Glucose 159 H 06/10/17 03:03: WBC 6.7, RBC 2.76 L, Hgb 7.3 L, Hct 24.2 L, MCV 87.7, MCH 26.4 L, MCHC 30.2 L, RDW 15.7 H, RDW Differential 47.2 H, Plt Count 335, MPV 9.1, Immature Gran % (Auto) 0.300, Neut % (Auto) 60.6, Lymph % (Auto) 22.8, Yancey % (Auto) 10.6 H, Eos % (Auto) 5.1 H, Baso % (Auto) 0.6, Absolute Neuts (auto) 4.0, Absolute Lymphs (auto) 1.52, Total Counted Not Reportable 06/10/17 03:03: Sodium 142, Potassium 4.1, Chloride 106, Carbon Dioxide 28.0, Anion Gap 8, BUN 17, Creatinine 1.03, Estim Creat Clear Calc 90.01, Est GFR (MDRD) Af Amer 94, Est GFR (MDRD) Non-Af 78, BUN/Creatinine Ratio 16.5, Glucose 144 H, Calcium 8.0 L, Triglycerides 126, Cholesterol 60, LDL Cholesterol 11, VLDL Cholesterol 25, HDL Cholesterol 24 L 06/10/17 03:03: Troponin I < 0.02 06/10/17 05:20: Vancomycin Trough 18.4 H Current Medications Acetaminophen (Tylenol) 650 mg PO Q6H PRN PRN PRN Reason: Mild Pain (scale 0-3)/T>100.7 Last Admin: 06/10/17 02:02 Dose: 650 mg Al Hydroxide/Mg Hydroxide (Mylanta Ii) 30 ml PO Q6H PRN PRN PRN Reason: Gastric burning Atorvastatin Calcium (Lipitor) 20 mg PO QHS [facility] Last Admin: 06/09/17 21:57 Dose: 20 mg Bupropion HCl (Wellbutrin Xl) 150 mg PO DAILY [facility] Citalopram Hydrobromide (Celexa) 40 mg PO DAILY [facility] Dextrose (D50w Syringe) 0 gm IV X1 PRN; Protocol PRN Reason: Hypoglycemia Enoxaparin Sodium (Lovenox) 40 mg SC DAILY@1000 [facility] Last Admin: 06/09/17 15:58 Dose: 40 mg Ferrous Sulfate (Ferrous Sulfate) 325 mg PO BIDCM [facility] Last Admin: 06/09/17 15:58 Dose: 325 mg Gabapentin (Neurontin) 800 mg PO 4X/DAY [facility] Last Admin: 06/09/17 21:57 Dose: 800 mg Glucagon () 1 mg IM .X1 PRN PRN Reason: Hypoglycemia Heparin Sodium (Beef Lung) (Heparin 500 Unit/5 Ml (100/Ml)) 500 unit IV UD PRN PRN Reason: HEPARIN FLUSH Hydralazine HCl (Apresoline Iv) 10 mg IV Q4H PRN PRN PRN Reason: SBP > 160 Sodium Chloride () 1,000 mls @ 100 mls/hr IV .Q10H [facility] Last Admin: 06/10/17 05:40 Dose: 100 mls/hr Piperacillin Sod/Tazobactam Sod (Zosyn) 3.375 gm in 50 mls @ 12.5 mls/hr IV Q8 [facility] Last Admin: 06/10/17 05:36 Dose: 12.5 mls/hr Vancomycin HCl 1,750 mg/ (Sodium Chloride) 535 mls @ 260 mls/hr IV Q12H [facility] Last Admin: 06/10/17 05:36 Dose: 260 mls/hr Insulin Aspart (Novolog Flexpen (Bkc)) 0 units SC ACHS [facility] PRN Reason: Protocol Last Admin: 06/09/17 22:15 Dose: Not Given Insulin Aspart (Novolog Flexpen (Bkc)) 40 units SC TIDCM [facility] PRN Reason: Protocol Last Admin: 06/09/17 17:29 Dose: 40 u Insulin Detemir (Levemir (Bkc)) 100 units SC BID [facility] Last Admin: 06/09/17 22:15 Dose: Not Given Lactobacillus Acidophilus (Acidophilus) 1 tablet PO 4X/DAY [facility] Last Admin: 06/09/17 21:58 Dose: 1 tablet Losartan Potassium (Cozaar) 100 mg PO DAILY [facility] Magnesium Hydroxide (Milk Of Magnesia) 30 ml PO DAILY PRN PRN PRN Reason: Constipation Morphine Sulfate () 2 - 4 mg IV Q3H PRN PRN PRN Reason: moderate to severe pain Last Admin: 06/09/17 13:45 Dose: 4 mg Morphine Sulfate (Ms Contin) 15 mg PO TID [facility] Last Admin: 06/10/17 05:35 Dose: 15 mg Naproxen (Naprosyn) 500 mg PO BID [facility] Last Admin: 06/09/17 21:58 Dose: 500 mg Nitroglycerin (Nitrostat) 0.4 mg SUBLINGUAL Q5M PRN PRN Reason: Angina pain Nutritional Formula (Lactose Free) (Glucerna Shake) 120 ml PO 4X/DAY [facility] Last Admin: 06/09/17 21:58 Dose: 120 mls Ondansetron HCl (Zofran) 4 mg IV Q8H PRN PRN PRN Reason: NAUSEA Oxycodone HCl (Oxyir) 10 mg PO Q4H PRN PRN PRN Reason: Moderate Pain (pain scale 4-5) Last Admin: 06/10/17 02:02 Dose: 10 mg Pantoprazole Sodium (Protonix) 40 mg PO BID [facility] Last Admin: 06/09/17 17:34 Dose: 40 mg Promethazine HCl (Phenergan) 12.5 mg IV Q6H PRN PRN PRN Reason: NAUSEA/VOMITING Sodium Chloride () 10 - 20 ml IV UD PRN PRN Reason: PICC FLUSH Triamterene/HCTZ (Dyazide (G)) 1 cap PO DAILY [facility] Medical Necessity - Tobacco Use Smoking Status: Former smoker Tobacco Use: Non-smoker Assessment/Plan The patient is a 62 y/o M w/ PMHx: Chronic normocytic anemia (Hgb baseline 10-11), Diabetes mellitus type II with Neuropathy/Uncontrolled, HTN, HLD, Obesity, GERD, Chronic pain syndrome, Morbid Obesity w/ acute infected non-healing diabetic left foot ulcer/wound with chronic osteomyelitis despite recent surgery per Podiatry w/ concerns upon evaluation at [facility] per Dr. Rodriguez in addition to intermittent chest pain history, midsternal pressure with dyspnea associated as well as ongoing intermittent loose stools. (1) Recurrent LLE Infected Non-healing Diabetic Wound w/ Cellulitis w/ Chronic Osteomyelitis w/ Recent Infection Would w/ Proteus mirabilis/MRSA s/p OR recently: Recent as noted admission, s/p I+D w/ excisional debridement and partial ostectomy of the cuboid bone w/ VAC placement, worsened status noted at [facility] per Dr. Rodriguez. Admitted to [place], maintained on IV vanc and zosyn per discussion w/ ID who evaluated patient at [facility], pending repeat Wound Cx, as expected + Wound MRSA PCR, admission labs obtained w/ CBC w/ WBC 8.2 without marked shift, 06/10/17 CBC w/ WBC 6.7, ESR 52, CRP 22.20, continue affected extremity elevation above heart when seated and in bed, monitor erythema outline with VS checks, continue dressing changes, Podiatry, ID following, PRN pain regimen, PRN anti-emetic. Plan amputation once Dr. Rodriguez returns once less edematous and ongoing infection. Cardiac evaluation pending for today. (2) N/V/D, Suspect secondary to Abx Therapy and Acute Infection as noted #1: Suspect secondary to abx therapy, c-diff negative, stool cx pending, added lactobacillus in addition to PRN loperamide, anti-emetics, pain regimen PRN. Given c-diff negative, added back PPI. (3) Chest Pain: EKG obtained with no acute evidence of ischemia upon presentation, maintained on a monitored bed to assure no acute myocardial infarction with serial cardiac enzymes and EKGs which remained unremarkable. Pending 06/10/17 AM nuclear stress testing given activity limitations. FLP not marked appearing except HDL 24. Mag normal. ASA, NG, morphine. (4) Acute on Chronic Normocytic/Fe Deficiency Anemia: Admission Hgb 8.4, repeat 06/10/17 7.3, trend, no active bleeding per patient, baseline 8 range. (5) Hypertension: Continue home regimen including losartan, triamterene, hydrochlorothiazide, PRN hydralazine. (6) Hyperlipidemia: Continue home statin regimen. (7) Diabetes mellitus type II w/ Neuropathy, Poorly controlled: Hold oral home regimen, continue home insulin regimen, ADA diet, accu checks w/ ISS. Recent HgbA1c>9%, nutrition consulted for education, continue neurontin. (8) Morbid Obesity: Weight loss and lifestyle changes encouraged, nutrition consulted. (9) Anxiety and Depression: Maintain on home regimen Celexa and Wellbutrin. (10) Chronic Pain Syndrome: Maintain on fall precautions, position changes, therapies, home morphine SR and PRN oxycodone w/ breakthrough IV regimen. (11) PETRA: CPAP q HS. (12) GERD: PPI added back. (13) DVT Prophylaxis: SCDs, lovenox. (14) CODE status: FULL Code. (15) Disposition: Notes intention for TCU once clinically appropriate. Code Visit Inpatient E&M: 14108 Subs Hosp L2
--- NOTE | 2017-06-10 07:14 | PN_ITS ---
Subjective: Patient overnight notes pain controlled, no nausea or emesis and slept well on his CPAP therapy ?5 hours which is improved since prior but still having loose stools. Urged patient to notify nurse for loperamide given unremarkable C. difficile assay. He denies any associated abdominal cramping or pain with the diarrhea. Denies any chest discomfort overnight. Patient denies fevers, chills, nausea, emesis, abdominal pain, recurrent or worsened chest pain or dyspnea. Objective: Physical Examination: General: awake, alert, oriented x 3 and cooperative, seated upright at the bedside, in no apparent distress. Skin: normal color, turgor, no icterus, cyanosis except dressed BL LE, LLE w/ wounds, dressing changes upon admission w/ noted wound bed of approximately 3 cm x 9 cm x 0.2 cm with periwound erythema, serosanguineous drainage, mild granulation appearance, edematous tissue, tenderness palpation (medial) and additional wound bed of approximately 7.5 cm x 6.5 cm x 2 cm with periwound erythema, serosanguineous drainage, edematous tissue, noted mild yellow slough with some granulation tissue with bone visible (plantar). HEENT: AT/NC, EOMI, PERRLA, improved MMM. Lungs: CTA bilaterally, moderate effort, moderate decrease BL bases, no rales, ronchi or wheezing. Heart: Regular rate and rhythm; no gallop, rub audible. Abdomen: soft, morbidly obese, NTTP, ND, normal BS. Extremities: no cyanosis, clubbing, s/p R TMA, see skin above. Neurological: patient awake, alert, oriented x 3; cognitive function intact; pupils equally reactive to light and accomodation; cranial nerves II-XII grossly normal, moving all 4 extremities, no focal deficits, strength improved, moderately globally decreased secondary to acute presentation. Psychiatric: affect appears normal, no acute evidence of depressive or anxiety feelings. Vitals/I&O's: Vital Signs Temp Pulse Resp BP Pulse Ox 97.7 F L 67 16 156/78 H 100 06/10/17 02:00 06/10/17 02:08 06/10/17 02:00 06/10/17 02:00 06/10/17 02:00 Oxygen Delivery Method Room Air Weight: 342 lb 2.519 oz Body Mass Index (BMI) 42.7 Finger Stick Blood Glucose 129 Intake and Output for Last 24 Hours 06/08/17 06/09/17 06/10/17 23:59 23:59 23:59 Intake Total 595 / 595 2030 Output Total 600 / 600 1000 / 1000 Balance -5 / -5 1031 / 1031 Microbiology Past 72 Hours 06/09/17 13:35 Stool C. difficile DNA Amplification - Final Laboratory Results 06/09/17 12:09: POC Glucose 73 06/09/17 13:45: WBC 8.2, RBC 3.27 L, Hgb 8.4 L, Hct 28.0 L, MCV 85.6, MCH 25.7 L , MCHC 30.0 L, RDW 15.9 H, RDW Differential 49.4 H, Plt Count 345, MPV 8.4, Immature Gran % (Auto) 0.100, Neut % (Auto) 65.9, Lymph % (Auto) 22.5, Bureau % ( Auto) 7.0, Eos % (Auto) 4.3, Baso % (Auto) 0.2, Absolute Neuts (auto) 5.4, Absolute Lymphs (auto) 1.84, Total Counted Not Reportable, ESR 52 H 06/09/17 13:45: Sodium 139, Potassium 4.3, Chloride 104, Carbon Dioxide 28.0, Anion Gap 7, BUN 18, Creatinine 1.00, Estim Creat Clear Calc 92.72, Est GFR ( MDRD) Af Amer 98, Est GFR (MDRD) Non-Af 81, BUN/Creatinine Ratio 18.0, Glucose 81, Calcium 8.9, Magnesium 2.3, Troponin I < 0.02, C-React Prot Ext Range 22.20 H 06/09/17 14:15: S.aureus Protein A PCR POSITIVE H, MRSA (PCR) POSITIVE H 06/09/17 16:01: POC Glucose 112 H 06/09/17 16:50: Troponin I < 0.02 06/09/17 20:58: Troponin I < 0.02 06/09/17 22:00: POC Glucose 68 L 06/09/17 22:48: POC Glucose 99 06/10/17 02:08: POC Glucose 159 H 06/10/17 03:03: WBC 6.7, RBC 2.76 L, Hgb 7.3 L, Hct 24.2 L, MCV 87.7, MCH 26.4 L , MCHC 30.2 L, RDW 15.7 H, RDW Differential 47.2 H, Plt Count 335, MPV 9.1, Immature Gran % (Auto) 0.300, Neut % (Auto) 60.6, Lymph % (Auto) 22.8, Bureau % ( Auto) 10.6 H, Eos % (Auto) 5.1 H, Baso % (Auto) 0.6, Absolute Neuts (auto) 4.0, Absolute Lymphs (auto) 1.52, Total Counted Not Reportable 06/10/17 03:03: Sodium 142, Potassium 4.1, Chloride 106, Carbon Dioxide 28.0, Anion Gap 8, BUN 17, Creatinine 1.03, Estim Creat Clear Calc 90.01, Est GFR ( MDRD) Af Amer 94, Est GFR (MDRD) Non-Af 78, BUN/Creatinine Ratio 16.5, Glucose 144 H, Calcium 8.0 L, Triglycerides 126, Cholesterol 60, LDL Cholesterol 11, VLDL Cholesterol 25, HDL Cholesterol 24 L 06/10/17 03:03: Troponin I < 0.02 06/10/17 05:20: Vancomycin Trough 18.4 H Current Medications Acetaminophen (Tylenol) 650 mg PO Q6H PRN PRN PRN Reason: Mild Pain (scale 0-3)/T>100.7 Last Admin: 06/10/17 02:02 Dose: 650 mg Al Hydroxide/Mg Hydroxide (Mylanta Ii) 30 ml PO Q6H PRN PRN PRN Reason: Gastric burning Atorvastatin Calcium (Lipitor) 20 mg PO QHS [facility] Last Admin: 06/09/17 21:57 Dose: 20 mg Bupropion HCl (Wellbutrin Xl) 150 mg PO DAILY [facility] Citalopram Hydrobromide (Celexa) 40 mg PO DAILY [facility] Dextrose (D50w Syringe) 0 gm IV X1 PRN; Protocol PRN Reason: Hypoglycemia Enoxaparin Sodium (Lovenox) 40 mg SC DAILY@1000 [facility] Last Admin: 06/09/17 15:58 Dose: 40 mg Ferrous Sulfate (Ferrous Sulfate) 325 mg PO BIDCM [facility] Last Admin: 06/09/17 15:58 Dose: 325 mg Gabapentin (Neurontin) 800 mg PO 4X/DAY [facility] Last Admin: 06/09/17 21:57 Dose: 800 mg Glucagon () 1 mg IM .X1 PRN PRN Reason: Hypoglycemia Heparin Sodium (Beef Lung) (Heparin 500 Unit/5 Ml (100/Ml)) 500 unit IV UD PRN PRN Reason: HEPARIN FLUSH Hydralazine HCl (Apresoline Iv) 10 mg IV Q4H PRN PRN PRN Reason: SBP > 160 Sodium Chloride () 1,000 mls @ 100 mls/hr IV .Q10H [facility] Last Admin: 06/10/17 05:40 Dose: 100 mls/hr Piperacillin Sod/Tazobactam Sod (Zosyn) 3.375 gm in 50 mls @ 12.5 mls/hr IV Q8 [facility] Last Admin: 06/10/17 05:36 Dose: 12.5 mls/hr Vancomycin HCl 1,750 mg/ (Sodium Chloride) 535 mls @ 260 mls/hr IV Q12H [facility] Last Admin: 06/10/17 05:36 Dose: 260 mls/hr Insulin Aspart (Novolog Flexpen (Bkc)) 0 units SC ACHS [facility] PRN Reason: Protocol Last Admin: 06/09/17 22:15 Dose: Not Given Insulin Aspart (Novolog Flexpen (Bkc)) 40 units SC TIDCM [facility] PRN Reason: Protocol Last Admin: 06/09/17 17:29 Dose: 40 u Insulin Detemir (Levemir (Bkc)) 100 units SC BID [facility] Last Admin: 06/09/17 22:15 Dose: Not Given Lactobacillus Acidophilus (Acidophilus) 1 tablet PO 4X/DAY [facility] Last Admin: 06/09/17 21:58 Dose: 1 tablet Losartan Potassium (Cozaar) 100 mg PO DAILY [facility] Magnesium Hydroxide (Milk Of Magnesia) 30 ml PO DAILY PRN PRN PRN Reason: Constipation Morphine Sulfate () 2 - 4 mg IV Q3H PRN PRN PRN Reason: moderate to severe pain Last Admin: 06/09/17 13:45 Dose: 4 mg Morphine Sulfate (Ms Contin) 15 mg PO TID [facility] Last Admin: 06/10/17 05:35 Dose: 15 mg Naproxen (Naprosyn) 500 mg PO BID [facility] Last Admin: 06/09/17 21:58 Dose: 500 mg Nitroglycerin (Nitrostat) 0.4 mg SUBLINGUAL Q5M PRN PRN Reason: Angina pain Nutritional Formula (Lactose Free) (Glucerna Shake) 120 ml PO 4X/DAY [facility] Last Admin: 06/09/17 21:58 Dose: 120 mls Ondansetron HCl (Zofran) 4 mg IV Q8H PRN PRN PRN Reason: NAUSEA Oxycodone HCl (Oxyir) 10 mg PO Q4H PRN PRN PRN Reason: Moderate Pain (pain scale 4-5) Last Admin: 06/10/17 02:02 Dose: 10 mg Pantoprazole Sodium (Protonix) 40 mg PO BID [facility] Last Admin: 06/09/17 17:34 Dose: 40 mg Promethazine HCl (Phenergan) 12.5 mg IV Q6H PRN PRN PRN Reason: NAUSEA/VOMITING Sodium Chloride () 10 - 20 ml IV UD PRN PRN Reason: PICC FLUSH Triamterene/HCTZ (Dyazide (G)) 1 cap PO DAILY [facility] Medical Necessity - Tobacco Use Smoking Status: Former smoker Tobacco Use: Non-smoker Assessment/Plan The patient is a 62 y/o M w/ PMHx: Chronic normocytic anemia (Hgb baseline 10-11 ), Diabetes mellitus type II with Neuropathy/Uncontrolled, HTN, HLD, Obesity, GERD, Chronic pain syndrome, Morbid Obesity w/ acute infected non-healing diabetic left foot ulcer/wound with chronic osteomyelitis despite recent surgery per Podiatry w/ concerns upon evaluation at [facility] per Dr. Rodriguez in addition to intermittent chest pain history, midsternal pressure with dyspnea associated as well as ongoing intermittent loose stools. (1) Recurrent LLE Infected Non-healing Diabetic Wound w/ Cellulitis w/ Chronic Osteomyelitis w/ Recent Infection Would w/ Proteus mirabilis/MRSA s/p OR recently: Recent as noted admission, s/p I+D w/ excisional debridement and partial ostectomy of the cuboid bone w/ VAC placement, worsened status noted at [facility] per Dr. Rodriguez. Admitted to [place], maintained on IV vanc and zosyn per discussion w/ ID who evaluated patient at [facility], pending repeat Wound Cx, as expected + Wound MRSA PCR, admission labs obtained w/ CBC w/ WBC 8.2 without marked shift, 06/10/17 CBC w/ WBC 6.7, ESR 52, CRP 22.20, continue affected extremity elevation above heart when seated and in bed, monitor erythema outline with VS checks, continue dressing changes, Podiatry, ID following, PRN pain regimen, PRN anti-emetic. Plan amputation once Dr. Rodriguez returns once less edematous and ongoing infection. Cardiac evaluation pending for today. (2) N/V/D, Suspect secondary to Abx Therapy and Acute Infection as noted #1: Suspect secondary to abx therapy, c-diff negative, stool cx pending, added lactobacillus in addition to PRN loperamide, anti-emetics, pain regimen PRN. Given c-diff negative, added back PPI. (3) Chest Pain: EKG obtained with no acute evidence of ischemia upon presentation, maintained on a monitored bed to assure no acute myocardial infarction with serial cardiac enzymes and EKGs which remained unremarkable. Pending 06/10/17 AM nuclear stress testing given activity limitations. FLP not marked appearing except HDL 24. Mag normal. ASA, NG, morphine. (4) Acute on Chronic Normocytic/Fe Deficiency Anemia: Admission Hgb 8.4, repeat 06/10/17 7.3, trend, no active bleeding per patient, baseline 8 range. (5) Hypertension: Continue home regimen including losartan, triamterene, hydrochlorothiazide, PRN hydralazine. (6) Hyperlipidemia: Continue home statin regimen. (7) Diabetes mellitus type II w/ Neuropathy, Poorly controlled: Hold oral home regimen, continue home insulin regimen, ADA diet, accu checks w/ ISS. Recent HgbA1c>9%, nutrition consulted for education, continue neurontin. (8) Morbid Obesity: Weight loss and lifestyle changes encouraged, nutrition consulted. (9) Anxiety and Depression: Maintain on home regimen Celexa and Wellbutrin. (10) Chronic Pain Syndrome: Maintain on fall precautions, position changes, therapies, home morphine SR and PRN oxycodone w/ breakthrough IV regimen. (11) PETRA: CPAP q HS. (12) GERD: PPI added back. (13) DVT Prophylaxis: SCDs, lovenox. (14) CODE status: FULL Code. (15) Disposition: Notes intention for TCU once clinically appropriate. Code Visit Inpatient E&M: 91427 Subs Hosp L2
[2017-06-10] MEDS: buPROPion (XL) 150 MG TABLET.XL PO (09:19)
[2017-06-10] MEDS: Losartan Potassium 100 MG Tablet PO (09:19)
[2017-06-10] MEDS: Glucerna Shake 120 ML LIQUID PO ×4 (09:19→22:20)
[2017-06-10] MEDS: Gabapentin 800 MG Tablet PO ×4 (09:19→22:18)
[2017-06-10] MEDS: Pantoprazole Sodium 40 MG Tablet PO ×2 (09:19→22:21)
[2017-06-10] MEDS: Ferrous Sulfate 325 MG Tablet PO ×2 (09:20→16:10)
[2017-06-10] MEDS: Naproxen 500 MG Tablet PO ×2 (09:20→22:18)
[2017-06-10] MEDS: Citalopram 40 MG TABLET PO (09:20)
[2017-06-10] MEDS: Enoxaparin 40 MG/0.4 ML Syringe SC (09:20)
[2017-06-10] MEDS: Triamterene 37.5MG/Hctz 25MG Capsule 1 CAP PO (09:20)
[2017-06-10 09:36] LABS: Bedside Glucose 156 mg/dL (70-110)
--- NOTE | 2017-06-10 10:20 | CASEMGMT ---
Pt will not be able to have surgery until early next week, pt would like to go to TCU. SW called Libby in TCU, inquired if they can work on getting precert for pt to go to TCU while waiting for his surgery time, get the IV antibiotics he needs while waiting for surgery. Libby states she will load it w/pt's [place] insurance to attain a precert. SW spoke w/pt about this plan, pt in full agreement with this. SW will continue to follow. AL Cancino, [employer]
--- NOTE | 2017-06-10 10:44 | CON.PCM_ITS ---
Problem List (1) Chronic ulcer of left foot with necrosis of bone Status: Chronic Reason for Consult: osteo Consulted by: Dr. Rubio History of Present Illness: The patient is a 62 year old M with DM neuropathy, recent admit with 05/30/[address] Rodriguez. Surg cx grew MRSA, staph epi, proteus. Discharged on iv vanc, ceftriaxone, flagyl. Came to wound care center yesterday with acute worsening leg redness, swelling, and associated diarrhea. No abd pain. Mild chills, nausea. Sent to hospital for admission, now on iv vanc/zosyn, reports leg swelling is better. Still some diarrhea. Cdiff neg. Full ROS Performed and neg except as noted above. - Medical History Past Medical History (Chronic Problems): Chronic Problems (Last Reviewed 03/06/17 @ 09:46 by Renuka Key) 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) Acute osteomyelitis of left foot (Chronic) Osteomyelitis (Chronic) Non-pressure chronic ulcer of left heel and midfoot with muscle involvement without evidence of necrosis (Chronic) Infection of left foot (Chronic) Hypersomnia (Chronic) Ulcer of midfoot with necrosis of muscle (Chronic) Nocturnal hypoxemia (Chronic) Abscess of left foot (Chronic) Diabetic ulcer of left foot with fat layer exposed (Chronic) Non-pressure chronic ulcer of left heel and midfoot with fat layer exposed ( Chronic) 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 Venous insufficiency of both lower extremities (Chronic) S/P transmetatarsal amputation of foot (Chronic) 03/04/[address] 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) Hypertension (Chronic) Amputation of right foot with complication (Chronic) Type 2 diabetes mellitus with diabetic polyneuropathy (Chronic) Stasis dermatitis of both legs (Chronic) Sleep apnea (Chronic) CPAP 15 cm H20, 100% compliant Neuropathy (Chronic) secondary to diabetes Morbid obesity (Chronic) Anemia (Chronic) Dyslipidemia (Chronic) Left ventricular hypertrophy (Chronic) Chronic pain syndrome (Chronic) Depression (Chronic) Allergies/Adverse Reactions: Allergies cefepime Allergy (Verified 03/06/17 09:46) Hives lisinopril Allergy (Verified 03/06/17 09:46) cough sulfamethoxazole [From Octra] Allergy (Verified 03/06/17 09:46) turned red trimethoprim [From Octra] Allergy (Verified 03/06/17 09:46) turned red Home Medications: Ambulatory Orders Medication Instructions Recorded Insulin Detemir [Levemir FlexPen] 100 units SC BID 10/12/14 Citalopram [Celexa] 40 mg PO DAILY 11/15/14 Metformin HCl [Glucophage] 1,000 mg PO BIDCM 11/15/14 Losartan Potassium [Cozaar] 100 mg PO DAILY 06/05/16 buPROPion XL [Wellbutrin Xl] 150 mg PO DAILY 01/21/17 glimepiride 4 mg tablet 4 mg PO BID tab 01/31/17 Insulin Aspart [Novolog Flexpen] 30 units SC TIDCM 03/24/17 Simvastatin 40 mg PO QHS 03/24/17 Triamterene/Hydrochlorothiazid 1 each PO DAILY 03/24/17 [Triamterene-Hctz 37.5-25 mg Cp] Glucerna Shake 120 ml PO 4X/DAY #30 liquid 03/28/17 Gabapentin [Neurontin] 800 mg PO 4X/DAY 05/28/17 Naproxen [Naprosyn] 500 mg PO BID 05/28/17 Ceftriaxone 2 gm IV Q24 #30 vial 06/04/17 Ferrous Sulfate 325 mg PO BIDCM #60 tab 06/04/17 Metronidazole [Flagyl] 500 mg PO TID #60 tab 06/04/17 Oxycodone [Oxyir] 10 mg PO Q6H PRN PRN 4 Days #14 tab 06/04/17 Vancomycin HCl in 5 % Dextrose 1.75 gm IV BID #60 plast..bag 06/04/17 [Vancomycin 1.75 Gram/500Ml-D5w] morphine SR tablet [Ms Contin] 15 mg PO TID 1 Days #3 tab 06/04/17 Acetaminophen 650 mg PO Q4H PRN PRN 06/09/17 Albuterol Aerosols [Ventolin 2.5 mg INHALATION Q4H PRN PRN 06/09/17 Aerosols] Insulin Aspart [Novolog Flexpen] See Protocol SC ACHS 06/09/17 - Social History SMOKING STATUS:: Former smoker Vital Signs Temp Pulse Resp BP Pulse Ox 97.8 F 67 18 143/77 H 96 06/10/17 09:17 06/10/17 09:17 06/10/17 09:17 06/10/17 09:17 06/10/17 09:17 Oxygen Delivery Method Room Air Weight: 155.2 kg Body Mass Index (BMI) 42.7 Finger Stick Blood Glucose 129 Microbiology Past 72 Hours 06/09/17 14:15 Gram Stain - Final Wound - Left Foot 06/09/17 13:35 C. difficile DNA Amplification - Final Stool Laboratory Tests Past 24 Hrs 06/09/17 06/09/17 06/09/17 13:45 13:45 14:15 WBC 8.2 RBC 3.27 L Hgb 8.4 L Hct 28.0 L MCV 85.6 MCH 25.7 L MCHC 30.0 L RDW 15.9 H RDW Differential 49.4 H Plt Count 345 MPV 8.4 Immature Gran % (Auto) 0.100 Neut % (Auto) 65.9 Lymph % (Auto) 22.5 [place] % (Auto) 7.0 Eos % (Auto) 4.3 Baso % (Auto) 0.2 Absolute Neuts (auto) 5.4 Absolute Lymphs (auto) 1.84 Total Counted Not Reportable ESR 52 H Sodium 139 Potassium 4.3 Chloride 104 Carbon Dioxide 28.0 Anion Gap 7 BUN 18 Creatinine 1.00 Estim Creat Clear Calc 92.72 Est GFR (MDRD) Af Amer 98 Est GFR (MDRD) Non-Af 81 BUN/Creatinine Ratio 18.0 Glucose 81 Calcium 8.9 Magnesium 2.3 Troponin I < 0.02 C-React Prot Ext Range 22.20 H Triglycerides Cholesterol LDL Cholesterol VLDL Cholesterol HDL Cholesterol Vancomycin Trough S.aureus Protein A PCR POSITIVE H MRSA (PCR) POSITIVE H 06/09/17 06/09/17 06/10/17 16:50 20:58 03:03 WBC 6.7 RBC 2.76 L Hgb 7.3 L Hct 24.2 L MCV 87.7 MCH 26.4 L MCHC 30.2 L RDW 15.7 H RDW Differential 47.2 H Plt Count 335 MPV 9.1 Immature Gran % (Auto) 0.300 Neut % (Auto) 60.6 Lymph % (Auto) 22.8 [place] % (Auto) 10.6 H Eos % (Auto) 5.1 H Baso % (Auto) 0.6 Absolute Neuts (auto) 4.0 Absolute Lymphs (auto) 1.52 Total Counted Not Reportable ESR Sodium Potassium Chloride Carbon Dioxide Anion Gap BUN Creatinine Estim Creat Clear Calc Est GFR (MDRD) Af Amer Est GFR (MDRD) Non-Af BUN/Creatinine Ratio Glucose Calcium Magnesium Troponin I < 0.02 < 0.02 C-React Prot Ext Range Triglycerides Cholesterol LDL Cholesterol VLDL Cholesterol HDL Cholesterol Vancomycin Trough S.aureus Protein A PCR MRSA (PCR) 06/10/17 06/10/17 06/10/17 03:03 03:03 05:20 WBC RBC Hgb Hct MCV MCH MCHC RDW RDW Differential Plt Count MPV Immature Gran % (Auto) Neut % (Auto) Lymph % (Auto) [place] % (Auto) Eos % (Auto) Baso % (Auto) Absolute Neuts (auto) Absolute Lymphs (auto) Total Counted ESR Sodium 142 Potassium 4.1 Chloride 106 Carbon Dioxide 28.0 Anion Gap 8 BUN 17 Creatinine 1.03 Estim Creat Clear Calc 90.01 Est GFR (MDRD) Af Amer 94 Est GFR (MDRD) Non-Af 78 BUN/Creatinine Ratio 16.5 Glucose 144 H Calcium 8.0 L Magnesium Troponin I < 0.02 C-React Prot Ext Range Triglycerides 126 Cholesterol 60 LDL Cholesterol 11 VLDL Cholesterol 25 HDL Cholesterol 24 L Vancomycin Trough 18.4 H S.aureus Protein A PCR MRSA (PCR) - Other Studies Radiology: [] reviewed Other Studies: [] Route of nutrition/ use of supplements: [] Nutritional Intake: [] IV Site: [] Tam Catheter: [] - Physical Exam General: Alert, Oriented x3, Cooperative, No apparent distress HEENT: Atraumatic, PERRLA, EOMI Neck: Supple, No Nodes Lungs: Clear to auscultation, Normal air movement Cardiovascular: Regular rate, Regular Rhythm Abdomen: Bowel Sounds Present, Soft, Non Tender, Non-Distended Extremities: Edema Skin: Ulcer/ Wound - L foot IV Site: PICC, without redness Musculoskeletal: No Tenderness to Palpation of Joints or Extremities - Assessment/Plan Antibiotics: [] Assessment/Plan: [] L foot osteo - worsened while on iv abx at [facility]. Recommend source control with BKA. Cont vanc/zosyn. Leg slightly improved today. diarrhea - cdiff neg, but had been on flagyl. Will monitor.. Will follow, thank you. D/w Dr. Rubio yesterday.
[2017-06-10] MEDS: Loperamide 2 MG Capsule PO (11:23)
[2017-06-10 11:46] LABS: Bedside Glucose 163 mg/dL (70-110)
[2017-06-10 17:15] LABS: Bedside Glucose 159 mg/dL (70-110)
[2017-06-10] MEDS: Atorvastatin Calcium 20 MG Tablet PO (22:20)
[2017-06-10 22:41] LABS: Bedside Glucose 219 mg/dL (70-110)
[2017-06-11] VITALS (14 sets, daily range): BP systolic 141–162; BP diastolic 64–84; PULSE 64–79; RESP 16–18; TEMP 36.3–36.8; O2SAT 97–100
[2017-06-11] MEDS: Acetaminophen 325 MG Tablet 650 MG PO ×2 (02:07→18:03)
[2017-06-11] MEDS: oxyCODONE 5 MG Tablet 10 MG PO ×3 (02:08→18:02)
[2017-06-11] MEDS: morphine SR 15 MG Tablet PO ×3 (05:39→22:15)
[2017-06-11] MEDS: Piperacil/Tazobactam 3.375 GM/50 ML ML IV ×3 (05:40→22:10)
[2017-06-11 05:43] LABS: Absolute Lymphocyte Count 1.32 X10^3/ul (0.83-4.51); Absolute Neutrophil Count 3.4 X10^3/uL (2.0-7.7); Basophil# 0.04 X10^3/uL; Basophil% 0.7 % (0-1); Eosinophil# 0.39 X10^3/uL; Eosinophils% 6.8 % (0-5); Hematocrit 28.9 % (40-54); Hemoglobin 8.6 g/dl (13.0-16.5); Lymphocyte # 1.32 X10^3/ul (4.0); Mean Corp Hgb Conc 29.8 g/gl (32-36); Mean Corpuscular Hgb 26.1 pg (27.0-32.0); Mean Corpuscular Volume 87.6 fL (80-94); Mean Platelet Vol. 9.2 fl (6.2-12.0); Monocyte# 0.57 X10^3/uL; Monocyte% 9.9 % (0-10); Neutrophil # 3.38 X10^3/uL (2.7-7.7); Neutrophil % 59.1 % (47-70); Platelet Count 363 K/mm3 (150-450); RBC Distribution Width CV 15.7 % (11.6-14.6); RBC Distribution Width SD 48.2 fl (35.1-43.9); White Blood Count 5.7 K/mm3 (4.4-11.0)
[2017-06-11 05:47] LABS: POSITIVE COUNT NO; POSITIVE DIFFERENTIAL NO; POSITIVE MORPHOLOGY NO
[2017-06-11 05:55] LABS: Anion Gap 6 (5-15); BUN 18 mg/dL (7-18); Calcium,Total 8.5 mg/dL (8.5-10.1); Chloride 107 mmol/L (98-107); Creatinine, Serum 1.06 mg/dL (0.70-1.30); EST Glomerular Filtration Rate 76 mL/min (>60); Est Glom Filt Rate - Afr Amer 91 mL/min (>60); Estimated Creatinine Clearance 87.47 ml/min; Glucose 99 mg/dL (74-106); Potassium 4.4 mmol/L (3.5-5.1); Sodium Level 142 mmol/L (136-145)
[2017-06-11 08:20] LABS: Bedside Glucose 85 mg/dL (70-110)
--- NOTE | 2017-06-11 08:55 | PCM.PN.HOSP ---
Subjective: Patient with no acute events overnight per self and per nursing report. This morning patient does admit to more pain in the right knee and ongoing chronic left foot pain with plan for as needed pain medication administration this morning. Prior patient stress testing was deferred secondary to his anemia and per request cardiology 1 unit PRBC was administered with improvement of hemoglobin to baseline chronic anemic status with pending stress test this morning. Discussed plan of care with patient which includes continuation of IV antibiotics, stress testing today and if unremarkable once appropriate transition to TCU with return once Dr. Rodriguez available to perform amputation. Patient denies fevers, chills, nausea, emesis, abdominal pain, chest pain or dyspnea. Objective: Physical Examination: General: awake, alert, oriented x 3 and cooperative, seated upright in bed, does not pain to BL LE currently. Skin: normal color, turgor, no icterus, cyanosis except dressed BL LE [admit LLE w/ wounds, dressing changes upon admission w/ noted wound bed of approximately 3 cm x 9 cm x 0.2 cm with periwound erythema, serosanguineous drainage, mild granulation appearance, edematous tissue, tenderness palpation (medial) and additional wound bed of approximately 7.5 cm x 6.5 cm x 2 cm with periwound erythema, serosanguineous drainage, edematous tissue, noted mild yellow slough with some granulation tissue with bone visible (plantar)] HEENT: AT/NC, EOMI, PERRLA, improved MMM. Lungs: CTA bilaterally, moderate effort, moderate decrease BL bases, no rales, ronchi or wheezing. Heart: Regular rate and rhythm; no gallop, rub audible. Abdomen: soft, morbidly obese, NTTP, ND, normal BS. Extremities: no cyanosis, clubbing, s/p R TMA, see skin above. Neurological: patient awake, alert, oriented x 3; cognitive function intact; pupils equally reactive to light and accomodation; cranial nerves II-XII grossly normal, moving all 4 extremities, no focal deficits, strength improved, moderately globally decreased. Psychiatric: affect appears more fatigued this AM, no acute evidence of depressive or anxiety feelings. Vitals/I&O's: Vital Signs Temp Pulse Resp BP Pulse Ox 97.4 F L 64 16 160/84 H 98 06/11/17 08:08 06/11/17 08:08 06/11/17 08:08 06/11/17 08:08 06/11/17 08:17 Oxygen Delivery Method Room Air Weight: 342 lb 2.519 oz Body Mass Index (BMI) 42.7 Finger Stick Blood Glucose 129 Intake and Output for Last 24 Hours 06/09/17 06/10/17 06/11/17 23:59 23:59 23:59 Intake Total 595 / 595 4598 / 4598 2532.9 / 2532.9 Output Total 600 / 600 1900 / 1900 1100 / 1100 Balance -5 / -5 2698 / 2698 1432.9 / 1432.9 Microbiology Past 72 Hours 06/09/17 14:15 Wound - Left Foot Gram Stain - Final 06/09/17 14:15 Wound - Left Foot Wound Culture - Preliminary Staphylococcus aureus 06/09/17 13:35 Stool Enteric Bacteriology - Final 06/09/17 13:35 Stool C. difficile DNA Amplification - Final Laboratory Results 06/10/17 09:24: POC Glucose 156 H 06/10/17 11:03: Blood Type O POSITIVE, Antibody Screen NEGATIVE, Crossmatch See Detail 06/10/17 11:31: POC Glucose 163 H 06/10/17 16:06: POC Glucose 159 H 06/10/17 22:15: POC Glucose 219 H 06/11/17 05:30: WBC 5.7, RBC 3.30 L, Hgb 8.6 L, Hct 28.9 L, MCV 87.6, MCH 26.1 L, MCHC 29.8 L, RDW 15.7 H, RDW Differential 48.2 H, Plt Count 363, MPV 9.2, Immature Gran % (Auto) 0.500, Neut % (Auto) 59.1, Lymph % (Auto) 23.0, [place] % (Auto) 9.9, Eos % (Auto) 6.8 H, Baso % (Auto) 0.7, Absolute Neuts (auto) 3.4, Absolute Lymphs (auto) 1.32, Total Counted Not Reportable 06/11/17 05:30: Sodium 142, Potassium 4.4, Chloride 107, Carbon Dioxide 29.0, Anion Gap 6, BUN 18, Creatinine 1.06, Estim Creat Clear Calc 87.47, Est GFR (MDRD) Af Amer 91, Est GFR (MDRD) Non-Af 76, BUN/Creatinine Ratio 17.0, Glucose 99, Calcium 8.5 06/11/17 08:03: POC Glucose 85 Current Medications Acetaminophen (Tylenol) 650 mg PO Q6H PRN PRN PRN Reason: Mild Pain (scale 0-3)/T>100.7 Last Admin: 06/11/17 02:07 Dose: 650 mg Al Hydroxide/Mg Hydroxide (Mylanta Ii) 30 ml PO Q6H PRN PRN PRN Reason: Gastric burning Atorvastatin Calcium (Lipitor) 20 mg PO QHS [facility] Last Admin: 06/10/17 22:20 Dose: 20 mg Bupropion HCl (Wellbutrin Xl) 150 mg PO DAILY [facility] Last Admin: 06/10/17 09:19 Dose: 150 mg Citalopram Hydrobromide (Celexa) 40 mg PO DAILY [facility] Last Admin: 06/10/17 09:20 Dose: 40 mg Dextrose (D50w Syringe) 0 gm IV X1 PRN; Protocol PRN Reason: Hypoglycemia Enoxaparin Sodium (Lovenox) 40 mg SC DAILY@1000 [facility] Last Admin: 06/10/17 09:20 Dose: 40 mg Ferrous Sulfate (Ferrous Sulfate) 325 mg PO BIDCM [facility] Last Admin: 06/11/17 08:14 Dose: Not Given Gabapentin (Neurontin) 800 mg PO 4X/DAY [facility] Last Admin: 06/10/17 22:18 Dose: 800 mg Glucagon () 1 mg IM .X1 PRN PRN Reason: Hypoglycemia Heparin Sodium (Beef Lung) (Heparin 500 Unit/5 Ml (100/Ml)) 500 unit IV UD PRN PRN Reason: HEPARIN FLUSH Hydralazine HCl (Apresoline Iv) 10 mg IV Q4H PRN PRN PRN Reason: SBP > 160 Sodium Chloride () 1,000 mls @ 100 mls/hr IV .Q10H [facility] Last Admin: 06/10/17 22:17 Dose: 100 mls/hr Piperacillin Sod/Tazobactam Sod (Zosyn) 3.375 gm in 50 mls @ 12.5 mls/hr IV Q8 [facility] Last Admin: 06/11/17 05:40 Dose: 12.5 mls/hr Vancomycin HCl 1,750 mg/ (Sodium Chloride) 535 mls @ 260 mls/hr IV Q12H [facility] Last Admin: 06/11/17 05:40 Dose: 260 mls/hr Insulin Aspart (Novolog Flexpen (Bkc)) 0 units SC ACHS [facility] PRN Reason: Protocol Last Admin: 06/11/17 08:13 Dose: Not Given Insulin Aspart (Novolog Flexpen (Bkc)) 40 units SC TIDCM [facility] PRN Reason: Protocol Last Admin: 06/11/17 08:34 Dose: Not Given Insulin Detemir (Levemir (Bk)) 100 units SC BID [facility] Last Admin: 06/10/17 22:20 Dose: 100 u Lactobacillus Acidophilus (Acidophilus) 1 tablet PO 4X/DAY [facility] Last Admin: 06/10/17 22:18 Dose: 1 tablet Loperamide HCl (Imodium) 2 mg PO Q2H PRN PRN PRN Reason: LOOSE STOOLS Last Admin: 06/10/17 11:23 Dose: 2 mg Losartan Potassium (Cozaar) 100 mg PO DAILY [facility] Last Admin: 06/10/17 09:19 Dose: 100 mg Magnesium Hydroxide (Milk Of Magnesia) 30 ml PO DAILY PRN PRN PRN Reason: Constipation Morphine Sulfate () 2 - 4 mg IV Q3H PRN PRN PRN Reason: moderate to severe pain Last Admin: 06/09/17 13:45 Dose: 4 mg Morphine Sulfate (Ms Contin) 15 mg PO TID [facility] Last Admin: 06/11/17 05:39 Dose: 15 mg Naproxen (Naprosyn) 500 mg PO BID [facility] Last Admin: 06/10/17 22:18 Dose: 500 mg Nitroglycerin (Nitrostat) 0.4 mg SUBLINGUAL Q5M PRN PRN Reason: Angina pain Nutritional Formula (Lactose Free) (Glucerna Shake) 120 ml PO 4X/DAY [facility] Last Admin: 06/10/17 22:20 Dose: 120 mls Ondansetron HCl (Zofran) 4 mg IV Q8H PRN PRN PRN Reason: NAUSEA Oxycodone HCl (Oxyir) 10 mg PO Q4H PRN PRN PRN Reason: Moderate Pain (pain scale 4-5) Last Admin: 06/11/17 08:22 Dose: 10 mg Pantoprazole Sodium (Protonix) 40 mg PO BID [facility] Last Admin: 04/24/18 22:21 Dose: 40 mg Promethazine HCl (Phenergan) 12.5 mg IV Q6H PRN PRN PRN Reason: NAUSEA/VOMITING Sodium Chloride () 10 - 20 ml IV UD PRN PRN Reason: PICC FLUSH Triamterene/HCTZ (Dyazide (G)) 1 cap PO DAILY [facility] Last Admin: 06/10/17 09:20 Dose: 1 cap Medical Necessity - Tobacco Use Smoking Status: Former smoker Tobacco Use: Non-smoker Assessment/Plan The patient is a 62 y/o M w/ PMHx: Chronic normocytic anemia (Hgb baseline 10-11), Diabetes mellitus type II with Neuropathy/Uncontrolled, HTN, HLD, Obesity, GERD, Chronic pain syndrome, Morbid Obesity w/ acute infected non-healing diabetic left foot ulcer/wound with chronic osteomyelitis despite recent surgery per Podiatry w/ concerns upon evaluation at [facility] per Dr. Rodriguez in addition to intermittent chest pain history, midsternal pressure with dyspnea associated as well as ongoing intermittent loose stools. (1) Recurrent LLE Infected Non-healing Diabetic Wound w/ Cellulitis w/ Chronic Osteomyelitis w/ Recent Infection Would w/ Proteus mirabilis/MRSA s/p OR recently: Recent as noted admission, s/p I+D w/ excisional debridement and partial ostectomy of the cuboid bone w/ VAC placement, worsened status noted at [facility] per Dr. Rodriguez. Admitted to [place], maintained on IV vanc and zosyn per discussion w/ ID who evaluated patient at [facility], pending repeat final Wound Cx w/ preliminary noting staph aureus, MRSA PCR positive as expected given recent culture prior, admission labs obtained w/ CBC w/ WBC 8.2 without marked shift, ESR 52, CRP 22.20, continue affected extremity elevation above heart when seated and in bed, monitor erythema outline with VS checks, continue dressing changes per Wound RN to which Dr. Weinstein was amenable. Both Podiatry and ID following. PRN pain regimen, PRN anti-emetic. Plan amputation once Dr. Rodriguez returns, once less edematous. Cardiac evaluation as noted pending given outpatient complaint of chest pain. 06/11/17 nuclear stress testing requested. (2) N/V/D, Suspect secondary to Abx Therapy and Acute Infection as noted #1: Resolving. Suspect secondary to abx therapy, c-diff negative, stool cx negative, added lactobacillus in addition to PRN loperamide, anti-emetics, pain regimen PRN. Given c-diff negative, added back PPI. (3) Chest Pain: EKG obtained with no acute evidence of ischemia upon presentation, maintained on a monitored bed to assure no acute myocardial infarction with serial cardiac enzymes and EKGs which remained unremarkable. 06/11/17 nuclear stress testing pending as had been cancelled 06/10/17 secondary to low Hgb w/ 1 u PRBC administered and repeat currently baseline. FLP not marked appearing except HDL 24. Mag normal. ASA, NG, morphine. (4) Acute on Chronic Normocytic/Fe Deficiency Anemia: Admission Hgb 8.4, repeat 06/10/17 7.3, trend, no active bleeding per patient, baseline 8 range, stress testing noted need for improved Hgb prior to allowance, thus 06/10/17 1 u PRBC administered, 06/11/17 Hgb 8.6, stable to baseline, trend. (5) Hypertension: Continue home regimen including losartan, triamterene, hydrochlorothiazide, PRN hydralazine. (6) Hyperlipidemia: Continue home statin regimen. (7) Diabetes mellitus type II w/ Neuropathy, Poorly controlled: Hold oral home regimen, continue home insulin regimen, ADA diet, accu checks w/ ISS. Recent HgbA1c>9%, nutrition consulted for education, continue neurontin. (8) Morbid Obesity: Weight loss and lifestyle changes encouraged, nutrition consulted and performing education and teaching. (9) Anxiety and Depression: Maintain on home regimen Celexa and Wellbutrin. (10) Chronic Pain Syndrome: Maintain on fall precautions, position changes, therapies, home morphine SR and PRN oxycodone w/ breakthrough IV regimen. (11) PETRA: CPAP q HS. (12) GERD: PPI. (13) DVT Prophylaxis: SCDs, lovenox. (14) CODE status: FULL Code. (15) Disposition: Intention for TCU once clinically appropriate with return once scheduled for amputation per Dr. Rodriguez. Discussed with Dr. Rodriguez and given short timeline and doing well with local care and dressing changes, will defer VAC usage. Code Visit Inpatient E&M: 87507 Subs Hosp L2
--- NOTE | 2017-06-11 08:59 | PN_ITS ---
Subjective: Patient with no acute events overnight per self and per nursing report. This morning patient does admit to more pain in the right knee and ongoing chronic left foot pain with plan for as needed pain medication administration this morning. Prior patient stress testing was deferred secondary to his anemia and per request cardiology 1 unit PRBC was administered with improvement of hemoglobin to baseline chronic anemic status with pending stress test this morning. Discussed plan of care with patient which includes continuation of IV antibiotics, stress testing today and if unremarkable once appropriate transition to TCU with return once Dr. Rodriguez available to perform amputation. Patient denies fevers, chills, nausea, emesis, abdominal pain, chest pain or dyspnea. Objective: Physical Examination: General: awake, alert, oriented x 3 and cooperative, seated upright in bed, does not pain to BL LE currently. Skin: normal color, turgor, no icterus, cyanosis except dressed BL LE [admit LLE w/ wounds, dressing changes upon admission w/ noted wound bed of approximately 3 cm x 9 cm x 0.2 cm with periwound erythema, serosanguineous drainage, mild granulation appearance, edematous tissue, tenderness palpation ( medial) and additional wound bed of approximately 7.5 cm x 6.5 cm x 2 cm with periwound erythema, serosanguineous drainage, edematous tissue, noted mild yellow slough with some granulation tissue with bone visible (plantar)] HEENT: AT/NC, EOMI, PERRLA, improved MMM. Lungs: CTA bilaterally, moderate effort, moderate decrease BL bases, no rales, ronchi or wheezing. Heart: Regular rate and rhythm; no gallop, rub audible. Abdomen: soft, morbidly obese, NTTP, ND, normal BS. Extremities: no cyanosis, clubbing, s/p R TMA, see skin above. Neurological: patient awake, alert, oriented x 3; cognitive function intact; pupils equally reactive to light and accomodation; cranial nerves II-XII grossly normal, moving all 4 extremities, no focal deficits, strength improved, moderately globally decreased. Psychiatric: affect appears more fatigued this AM, no acute evidence of depressive or anxiety feelings. Vitals/I&O's: Vital Signs Temp Pulse Resp BP Pulse Ox 97.4 F L 64 16 160/84 H 98 06/11/17 08:08 06/11/17 08:08 06/11/17 08:08 06/11/17 08:08 06/11/17 08:17 Oxygen Delivery Method Room Air Weight: 342 lb 2.519 oz Body Mass Index (BMI) 42.7 Finger Stick Blood Glucose 129 Intake and Output for Last 24 Hours 06/09/17 06/10/17 06/11/17 23:59 23:59 23:59 Intake Total 595 / 595 4598 / 4598 2532.9 / 2532.9 Output Total 600 / 600 1900 / 1900 1100 / 1100 Balance -5 / -5 2698 / 2698 1432.9 / 1432.9 Microbiology Past 72 Hours 06/09/17 14:15 Wound - Left Foot Gram Stain - Final 06/09/17 14:15 Wound - Left Foot Wound Culture - Preliminary Staphylococcus aureus 06/09/17 13:35 Stool Enteric Bacteriology - Final 06/09/17 13:35 Stool C. difficile DNA Amplification - Final Laboratory Results 06/10/17 09:24: POC Glucose 156 H 06/10/17 11:03: Blood Type O POSITIVE, Antibody Screen NEGATIVE, Crossmatch See Detail 06/10/17 11:31: POC Glucose 163 H 06/10/17 16:06: POC Glucose 159 H 06/10/17 22:15: POC Glucose 219 H 06/11/17 05:30: WBC 5.7, RBC 3.30 L, Hgb 8.6 L, Hct 28.9 L, MCV 87.6, MCH 26.1 L , MCHC 29.8 L, RDW 15.7 H, RDW Differential 48.2 H, Plt Count 363, MPV 9.2, Immature Gran % (Auto) 0.500, Neut % (Auto) 59.1, Lymph % (Auto) 23.0, Patrick % ( Auto) 9.9, Eos % (Auto) 6.8 H, Baso % (Auto) 0.7, Absolute Neuts (auto) 3.4, Absolute Lymphs (auto) 1.32, Total Counted Not Reportable 06/11/17 05:30: Sodium 142, Potassium 4.4, Chloride 107, Carbon Dioxide 29.0, Anion Gap 6, BUN 18, Creatinine 1.06, Estim Creat Clear Calc 87.47, Est GFR ( MDRD) Af Amer 91, Est GFR (MDRD) Non-Af 76, BUN/Creatinine Ratio 17.0, Glucose 99, Calcium 8.5 06/11/17 08:03: POC Glucose 85 Current Medications Acetaminophen (Tylenol) 650 mg PO Q6H PRN PRN PRN Reason: Mild Pain (scale 0-3)/T>100.7 Last Admin: 06/11/17 02:07 Dose: 650 mg Al Hydroxide/Mg Hydroxide (Mylanta Ii) 30 ml PO Q6H PRN PRN PRN Reason: Gastric burning Atorvastatin Calcium (Lipitor) 20 mg PO QHS [facility] Last Admin: 06/10/17 22:20 Dose: 20 mg Bupropion HCl (Wellbutrin Xl) 150 mg PO DAILY [facility] Last Admin: 06/10/17 09:19 Dose: 150 mg Citalopram Hydrobromide (Celexa) 40 mg PO DAILY [facility] Last Admin: 06/10/17 09:20 Dose: 40 mg Dextrose (D50w Syringe) 0 gm IV X1 PRN; Protocol PRN Reason: Hypoglycemia Enoxaparin Sodium (Lovenox) 40 mg SC DAILY@1000 [facility] Last Admin: 06/10/17 09:20 Dose: 40 mg Ferrous Sulfate (Ferrous Sulfate) 325 mg PO BIDCM [facility] Last Admin: 06/11/17 08:14 Dose: Not Given Gabapentin (Neurontin) 800 mg PO 4X/DAY [facility] Last Admin: 06/10/17 22:18 Dose: 800 mg Glucagon () 1 mg IM .X1 PRN PRN Reason: Hypoglycemia Heparin Sodium (Beef Lung) (Heparin 500 Unit/5 Ml (100/Ml)) 500 unit IV UD PRN PRN Reason: HEPARIN FLUSH Hydralazine HCl (Apresoline Iv) 10 mg IV Q4H PRN PRN PRN Reason: SBP > 160 Sodium Chloride () 1,000 mls @ 100 mls/hr IV .Q10H [facility] Last Admin: 06/10/17 22:17 Dose: 100 mls/hr Piperacillin Sod/Tazobactam Sod (Zosyn) 3.375 gm in 50 mls @ 12.5 mls/hr IV Q8 [facility] Last Admin: 06/11/17 05:40 Dose: 12.5 mls/hr Vancomycin HCl 1,750 mg/ (Sodium Chloride) 535 mls @ 260 mls/hr IV Q12H [facility] Last Admin: 06/11/17 05:40 Dose: 260 mls/hr Insulin Aspart (Novolog Flexpen (Bkc)) 0 units SC ACHS [facility] PRN Reason: Protocol Last Admin: 06/11/17 08:13 Dose: Not Given Insulin Aspart (Novolog Flexpen (Bkc)) 40 units SC TIDCM [facility] PRN Reason: Protocol Last Admin: 06/11/17 08:34 Dose: Not Given Insulin Detemir (Levemir (Bk)) 100 units SC BID [facility] Last Admin: 06/10/17 22:20 Dose: 100 u Lactobacillus Acidophilus (Acidophilus) 1 tablet PO 4X/DAY [facility] Last Admin: 06/10/17 22:18 Dose: 1 tablet Loperamide HCl (Imodium) 2 mg PO Q2H PRN PRN PRN Reason: LOOSE STOOLS Last Admin: 06/10/17 11:23 Dose: 2 mg Losartan Potassium (Cozaar) 100 mg PO DAILY [facility] Last Admin: 06/10/17 09:19 Dose: 100 mg Magnesium Hydroxide (Milk Of Magnesia) 30 ml PO DAILY PRN PRN PRN Reason: Constipation Morphine Sulfate () 2 - 4 mg IV Q3H PRN PRN PRN Reason: moderate to severe pain Last Admin: 06/09/17 13:45 Dose: 4 mg Morphine Sulfate (Ms Contin) 15 mg PO TID [facility] Last Admin: 06/11/17 05:39 Dose: 15 mg Naproxen (Naprosyn) 500 mg PO BID [facility] Last Admin: 06/10/17 22:18 Dose: 500 mg Nitroglycerin (Nitrostat) 0.4 mg SUBLINGUAL Q5M PRN PRN Reason: Angina pain Nutritional Formula (Lactose Free) (Glucerna Shake) 120 ml PO 4X/DAY [facility] Last Admin: 06/10/17 22:20 Dose: 120 mls Ondansetron HCl (Zofran) 4 mg IV Q8H PRN PRN PRN Reason: NAUSEA Oxycodone HCl (Oxyir) 10 mg PO Q4H PRN PRN PRN Reason: Moderate Pain (pain scale 4-5) Last Admin: 06/11/17 08:22 Dose: 10 mg Pantoprazole Sodium (Protonix) 40 mg PO BID [facility] Last Admin: 04/24/18 22:21 Dose: 40 mg Promethazine HCl (Phenergan) 12.5 mg IV Q6H PRN PRN PRN Reason: NAUSEA/VOMITING Sodium Chloride () 10 - 20 ml IV UD PRN PRN Reason: PICC FLUSH Triamterene/HCTZ (Dyazide (G)) 1 cap PO DAILY [facility] Last Admin: 06/10/17 09:20 Dose: 1 cap Medical Necessity - Tobacco Use Smoking Status: Former smoker Tobacco Use: Non-smoker Assessment/Plan The patient is a 62 y/o M w/ PMHx: Chronic normocytic anemia (Hgb baseline 10-11 ), Diabetes mellitus type II with Neuropathy/Uncontrolled, HTN, HLD, Obesity, GERD, Chronic pain syndrome, Morbid Obesity w/ acute infected non-healing diabetic left foot ulcer/wound with chronic osteomyelitis despite recent surgery per Podiatry w/ concerns upon evaluation at [facility] per Dr. Rodriguez in addition to intermittent chest pain history, midsternal pressure with dyspnea associated as well as ongoing intermittent loose stools. (1) Recurrent LLE Infected Non-healing Diabetic Wound w/ Cellulitis w/ Chronic Osteomyelitis w/ Recent Infection Would w/ Proteus mirabilis/MRSA s/p OR recently: Recent as noted admission, s/p I+D w/ excisional debridement and partial ostectomy of the cuboid bone w/ VAC placement, worsened status noted at [facility] per Dr. Rodriguez. Admitted to MD, maintained on IV vanc and zosyn per discussion w/ ID who evaluated patient at [facility], pending repeat final Wound Cx w/ preliminary noting staph aureus, MRSA PCR positive as expected given recent culture prior, admission labs obtained w/ CBC w/ WBC 8.2 without marked shift, ESR 52, CRP 22.20, continue affected extremity elevation above heart when seated and in bed, monitor erythema outline with VS checks, continue dressing changes per Wound RN to which Dr. Weinstein was amenable. Both Podiatry and ID following. PRN pain regimen, PRN anti-emetic. Plan amputation once Dr. Rodriguez returns, once less edematous. Cardiac evaluation as noted pending given outpatient complaint of chest pain. 06/11/17 nuclear stress testing requested. (2) N/V/D, Suspect secondary to Abx Therapy and Acute Infection as noted #1: Resolving. Suspect secondary to abx therapy, c-diff negative, stool cx negative , added lactobacillus in addition to PRN loperamide, anti-emetics, pain regimen PRN. Given c-diff negative, added back PPI. (3) Chest Pain: EKG obtained with no acute evidence of ischemia upon presentation, maintained on a monitored bed to assure no acute myocardial infarction with serial cardiac enzymes and EKGs which remained unremarkable. nuclear stress testing pending as had been cancelled 06/10/17 secondary to low Hgb w/ 1 u PRBC administered and repeat currently baseline. FLP not marked appearing except HDL 24. Mag normal. ASA, NG, morphine. (4) Acute on Chronic Normocytic/Fe Deficiency Anemia: Admission Hgb 8.4, repeat 06/10/17 7.3, trend, no active bleeding per patient, baseline 8 range, stress testing noted need for improved Hgb prior to allowance, thus 06/10/17 1 u PRBC administered, 06/11/17 Hgb 8.6, stable to baseline, trend. (5) Hypertension: Continue home regimen including losartan, triamterene, hydrochlorothiazide, PRN hydralazine. (6) Hyperlipidemia: Continue home statin regimen. (7) Diabetes mellitus type II w/ Neuropathy, Poorly controlled: Hold oral home regimen, continue home insulin regimen, ADA diet, accu checks w/ ISS. Recent HgbA1c>9%, nutrition consulted for education, continue neurontin. (8) Morbid Obesity: Weight loss and lifestyle changes encouraged, nutrition consulted and performing education and teaching. (9) Anxiety and Depression: Maintain on home regimen Celexa and Wellbutrin. (10) Chronic Pain Syndrome: Maintain on fall precautions, position changes, therapies, home morphine SR and PRN oxycodone w/ breakthrough IV regimen. (11) PETRA: CPAP q HS. (12) GERD: PPI. (13) DVT Prophylaxis: SCDs, lovenox. (14) CODE status: FULL Code. (15) Disposition: Intention for TCU once clinically appropriate with return once scheduled for amputation per Dr. Rodriguez. Discussed with Dr. Rodriguez and given short timeline and doing well with local care and dressing changes, will defer VAC usage. Code Visit Inpatient E&M: 04016 Subs Hosp L2
--- NOTE | 2017-06-11 09:24 | PCA ---
pt off the floor for stress test
--- NOTE | 2017-06-11 10:59 | CASEMGMT ---
Addendum entered by Chelita Horne 06/11/17 14:16: SW called Libby in TCU, she has not heard from pt's insurance, will let SW know is she hears back from insurance today. AL Cancino, MARKET[employer]P Original Note: Addendum entered by Chelita Horne 06/11/17 11:44: SW let Sissy at [facility] know pt will not be returning. She states pt has items there, inquired if she should call family. SW checked w/pt, he states his family picked up his belongings yesterday. If there is anything still at [facility] of his, he is fine w/Sissy calling his family. SW called Sissy back, message left letting her know as per pt, family got his belongings yesterday, and if that did not happen or there are more items there, to go ahead and call family. AL Cancino, MARKETING REP Original Note: Libby started precert yesterday, she will let this SW know when she hears from pt's insurance regarding precert for TCU. AL Cancino, MORIAH
--- NOTE | 2017-06-11 11:16 | STRESSREP ---
Stress Test Report Pharmacologic myocardial perfusion stress test. 62-year-old man for preoperative testing with a history of diabetes mellitus. Stress protocol: Resting EKG demonstrates sinus rhythm with a rate of 64 bpm normal intervals and noted resting blood pressure is 140/68 mmHg. 0.4 mg of regadenoson was infused per usual protocol followed by rapid intravenous saline flush injection. Continuous EKG monitoring was performed. At rest there were no ST or T-wave changes noted suggest abnormal flow reserve at peak infusion no ST or T-wave changes were noted suggest abnormal flow reserve the maximum heart rate was 76 bpm which was 47% maximum predicted heart rate the maximum workload was 1 metabolic equivalent. Myocardial perfusion protocol. 14.9 millicuries of technetium 99m sestamibi was injected at rest. 0.4 mg regadenoson was infused per usual protocol. At peak infusion 44.6 millicuries of technetium 99m sestamibi was injected stress images were obtained stress and rest images were reconstructed and compared in the short axis vertical long and horizontal long axis. Gated images were also obtained pre- Perfusion SPECT analysis: Review of the stress images demonstrate significant GI as well as anterior breast wall attenuation artifact. The above makes the images difficult to interpret. However there appears to be fairly uniform uptake of tracer noted. Resting images demonstrate mild reduction in the anterior wall towards the apex which appears to be present on the stress images as well. There is significant GI inferior attenuation artifact noted. No obvious ischemia can be noted. Gated SPECT analysis: The gated ejection fraction is 60%. Conclusion: Probably normal pharmacologic myocardial perfusion stress test. The quality of the study cannot allow for definitive exclusion of ischemia. Preserved ejection fraction.
[2017-06-11 11:55] LABS: Bedside Glucose 119 mg/dL (70-110)
[2017-06-11] MEDS: Pantoprazole Sodium 40 MG Tablet PO ×2 (12:09→22:15)
[2017-06-11] MEDS: 0.9% NaCl PICC Flush IV ×2 (12:09→14:42)
[2017-06-11] MEDS: buPROPion (XL) 150 MG TABLET.XL PO (12:10)
[2017-06-11] MEDS: Naproxen 500 MG Tablet PO ×2 (12:10→22:15)
[2017-06-11] MEDS: Gabapentin 800 MG Tablet PO ×4 (12:10→22:15)
[2017-06-11] MEDS: Losartan Potassium 100 MG Tablet PO (12:10)
[2017-06-11] MEDS: Citalopram 40 MG TABLET PO (12:10)
[2017-06-11] MEDS: Triamterene 37.5MG/Hctz 25MG Capsule 1 CAP PO (12:10)
[2017-06-11] MEDS: Loperamide 2 MG Capsule PO (12:17)
[2017-06-11] MEDS: hydrALAZINE 20 MG/ML Vial 10 MG IV (14:42)
[2017-06-11] MEDS: Enoxaparin 40 MG/0.4 ML Syringe SC (16:09)
[2017-06-11 16:10] LABS: Bedside Glucose 82 mg/dL (70-110)
[2017-06-11] MEDS: 0.9% Normal Saline 1,000 ML 100 ML IV (17:49)
[2017-06-11] MEDS: Ferrous Sulfate 325 MG Tablet PO (18:00)
[2017-06-11] MEDS: Glucerna Shake 120 ML LIQUID PO ×2 (18:02→22:15)
[2017-06-11] MEDS: Atorvastatin Calcium 20 MG Tablet PO (22:15)
[2017-06-11 22:30] LABS: Bedside Glucose 266 mg/dL (70-110)
[2017-06-12 02:42] VITALS: BP 152/77; PULSE 67; RESP 18; TEMP 36.6; O2SAT 97
[2017-06-12 04:00] VITALS: PULSE 63
[2017-06-12 05:32] LABS: Absolute Neutrophil Count 3.5 X10^3/uL (2.0-7.7); Basophil# 0.03 X10^3/uL; Basophil% 0.5 % (0-1); Eosinophil# 0.34 X10^3/uL; Eosinophils% 6.1 % (0-5); Hematocrit 26.5 % (40-54); Hemoglobin 7.9 g/dl (13.0-16.5); Lymphocyte % 19.9 % (19-41); Mean Corp Hgb Conc 29.8 g/gl (32-36); Mean Corpuscular Hgb 26.2 pg (27.0-32.0); Mean Corpuscular Volume 87.7 fL (80-94); Mean Platelet Vol. 8.9 fl (6.2-12.0); Monocyte# 0.52 X10^3/uL; Monocyte% 9.4 % (0-10); Neutrophil # 3.52 X10^3/uL (2.7-7.7); Neutrophil % 63.7 % (47-70); Platelet Count 351 K/mm3 (150-450); RBC Distribution Width CV 15.7 % (11.6-14.6); RBC Distribution Width SD 48.2 fl (35.1-43.9); Red Blood Count 3.02 M/mm3 (4.6-6.2); White Blood Count 5.5 K/mm3 (4.4-11.0)
[2017-06-12] MEDS: morphine SR 15 MG Tablet PO ×2 (05:41→15:01)
[2017-06-12] MEDS: Piperacil/Tazobactam 3.375 GM/50 ML ML IV (05:42)
[2017-06-12] MEDS: 0.9% Normal Saline 1,000 ML 100 ML IV (05:43)
[2017-06-12 05:52] LABS: POSITIVE COUNT NO; POSITIVE DIFFERENTIAL NO; POSITIVE MORPHOLOGY NO
[2017-06-12 06:01] LABS: BUN 14 mg/dL (7-18); Creatinine, Serum 0.97 mg/dL (0.70-1.30); EST Glomerular Filtration Rate 84 mL/min (>60); Estimated Creatinine Clearance 95.58 ml/min; Glucose 148 mg/dL (74-106)
[2017-06-12 06:02] LABS: Anion Gap 6 (5-15); BUN/Creat Ratio 14.5 RATIO (10-20); Calcium,Total 7.7 mg/dL (8.5-10.1); Chloride 110 mmol/L (98-107); Est Glom Filt Rate - Afr Amer 102 mL/min (>60); Potassium 3.8 mmol/L (3.5-5.1); Sodium Level 143 mmol/L (136-145)
[2017-06-12] MEDS: Ferrous Sulfate 325 MG Tablet PO (08:27)
[2017-06-12] MEDS: Gabapentin 800 MG Tablet PO ×2 (08:28→15:01)
[2017-06-12] MEDS: Losartan Potassium 100 MG Tablet PO (08:28)
[2017-06-12] MEDS: Citalopram 40 MG TABLET PO (08:28)
[2017-06-12] MEDS: buPROPion (XL) 150 MG TABLET.XL PO (08:28)
[2017-06-12] MEDS: Naproxen 500 MG Tablet PO (08:28)
[2017-06-12] MEDS: Pantoprazole Sodium 40 MG Tablet PO (08:29)
[2017-06-12] MEDS: Triamterene 37.5MG/Hctz 25MG Capsule 1 CAP PO (08:29)
[2017-06-12 08:31] LABS: Bedside Glucose 206 mg/dL (70-110)
[2017-06-12 08:42] VITALS: BP 160/74; PULSE 75; RESP 18; TEMP 36.7; O2SAT 99
--- NOTE | 2017-06-12 08:55 | CASEMGMT ---
Addendum entered by Chelita Horne 06/12/17 12:40: SW received a call from Otilia in TCU stating pt can go to TCU today, precert was attained. SW notified pt and his friend Lolita, pt is agreeable. SW also notified pt's RN here, and faxed the discharge instructions. SW notified physician via text precert was attained. No further needs are anticipated. AL Cancino Original Note: RANDY spoke w/RN Otilia in TCU who is working on precerts today. Viraj asked for additional information, Otilia will provide it this morning, will let RANDY know once precert is attained. AL Cancino, [employer]
--- NOTE | 2017-06-12 09:13 | PCM.PN.HOSP ---
Subjective: Patient with no acute events overnight per self and per nursing report. Patient doing well, tolerating antibiotic therapy, pain improved this morning, no further chest discomfort. Patient amenable to transition to TCU for continued antibiotic therapy awaiting Dr. Rodriguez date for surgery for amputation. Patient denies fevers, chills, nausea, emesis, abdominal pain, chest pain or dyspnea. Objective: Physical Examination: General: awake, alert, oriented x 3 and cooperative, seated upright in bed, improved appearance this AM, no pain currently. Skin: normal color, turgor, no icterus, cyanosis except dressed BL LE [admit LLE w/ wounds, dressing changes upon admission w/ noted wound bed of approximately 3 cm x 9 cm x 0.2 cm with periwound erythema, serosanguineous drainage, mild granulation appearance, edematous tissue, tenderness palpation (medial) and additional wound bed of approximately 7.5 cm x 6.5 cm x 2 cm with periwound erythema, serosanguineous drainage, edematous tissue, noted mild yellow slough with some granulation tissue with bone visible (plantar)] HEENT: AT/NC, EOMI, PERRLA, improved MMM. Lungs: CTA bilaterally, moderate effort, moderate decrease BL bases, no rales, ronchi or wheezing. Heart: Regular rate and rhythm; no gallop, rub audible. Abdomen: soft, morbidly obese, NTTP, ND, normal BS. Extremities: no cyanosis, clubbing, s/p R TMA, see skin above. Neurological: patient awake, alert, oriented x 3; cognitive function intact; pupils equally reactive to light and accomodation; cranial nerves II-XII grossly normal, moving all 4 extremities, no focal deficits, strength improved, mildly to moderately globally decreased. Psychiatric: affect appears normal, no acute evidence of depressive or anxiety feelings. Vitals/I&O's: Vital Signs Temp Pulse Resp BP Pulse Ox 98 F 63 18 152/77 H 97 06/12/17 02:42 06/12/17 04:00 06/12/17 02:42 06/12/17 02:42 06/12/17 02:42 Oxygen Delivery Method Room Air Weight: 342 lb 2.519 oz Body Mass Index (BMI) 42.7 Finger Stick Blood Glucose 129 Intake and Output for Last 24 Hours 04/06/11/17 06/12/17 23:59 23:59 23:59 Intake Total 4598 / 4598 5657.9 / 5657.9 1392 / 1392 Output Total 1900 / 1900 3900 / 3900 1800 / 1800 Balance 2698 / 2698 1757.9 / 1757.9 -408 / -408 Microbiology Past 72 Hours 06/09/17 14:15 Wound - Left Foot Gram Stain - Final 06/09/17 14:15 Wound - Left Foot Wound Culture - Preliminary Staphylococcus aureus Enterococcus faecium 06/09/17 14:15 Wound - Left Foot Anaerobic Culture - Final No anaerobic bacteria isolated. 06/09/17 13:35 Stool Enteric Bacteriology - Final 06/09/17 13:35 Stool C. difficile DNA Amplification - Final Laboratory Results 06/11/17 11:46: POC Glucose 119 H 06/11/17 16:06: POC Glucose 82 06/11/17 22:11: POC Glucose 266 H 06/12/17 05:15: WBC 5.5, RBC 3.02 L, Hgb 7.9 L, Hct 26.5 L, MCV 87.7, MCH 26.2 L, MCHC 29.8 L, RDW 15.7 H, RDW Differential 48.2 H, Plt Count 351, MPV 8.9, Immature Gran % (Auto) 0.400, Neut % (Auto) 63.7, Lymph % (Auto) 19.9, [place] % (Auto) 9.4, Eos % (Auto) 6.1 H, Baso % (Auto) 0.5, Absolute Neuts (auto) 3.5, Absolute Lymphs (auto) 1.10, Total Counted Not Reportable 06/12/17 05:15: Sodium 143, Potassium 3.8, Chloride 110 H, Carbon Dioxide 27.0, Anion Gap 6, BUN 14, Creatinine 0.97, Estim Creat Clear Calc 95.58, Est GFR (MDRD) Af Amer 102, Est GFR (MDRD) Non-Af 84, BUN/Creatinine Ratio 14.5, Glucose 148 H, Calcium 7.7 L 06/12/17 08:24: POC Glucose 206 H Current Medications Acetaminophen (Tylenol) 650 mg PO Q6H PRN PRN PRN Reason: Mild Pain (scale 0-3)/T>100.7 Last Admin: 06/11/17 18:03 Dose: 650 mg Al Hydroxide/Mg Hydroxide (Mylanta Ii) 30 ml PO Q6H PRN PRN PRN Reason: Gastric burning Atorvastatin Calcium (Lipitor) 20 mg PO QHS [facility] Last Admin: 06/11/17 22:15 Dose: 20 mg Bupropion HCl (Wellbutrin Xl) 150 mg PO DAILY [facility] Last Admin: 06/12/17 08:28 Dose: 150 mg Citalopram Hydrobromide (Celexa) 40 mg PO DAILY [facility] Last Admin: 06/12/17 08:28 Dose: 40 mg Dextrose (D50w Syringe) 0 gm IV X1 PRN; Protocol PRN Reason: Hypoglycemia Enoxaparin Sodium (Lovenox) 40 mg SC DAILY@1000 [facility] Last Admin: 06/11/17 16:09 Dose: 40 mg Ferrous Sulfate (Ferrous Sulfate) 325 mg PO BIDCM [facility] Last Admin: 06/12/17 08:27 Dose: 325 mg Gabapentin (Neurontin) 800 mg PO 4X/DAY [facility] Last Admin: 06/12/17 08:28 Dose: 800 mg Glucagon () 1 mg IM .X1 PRN PRN Reason: Hypoglycemia Heparin Sodium (Beef Lung) (Heparin 500 Unit/5 Ml (100/Ml)) 500 unit IV UD PRN PRN Reason: HEPARIN FLUSH Hydralazine HCl (Apresoline Iv) 10 mg IV Q4H PRN PRN PRN Reason: SBP > 160 Last Admin: 06/11/17 14:42 Dose: 10 mg Sodium Chloride () 1,000 mls @ 100 mls/hr IV .Q10H [facility] Last Admin: 06/12/17 05:43 Dose: 100 mls/hr Piperacillin Sod/Tazobactam Sod (Zosyn) 3.375 gm in 50 mls @ 12.5 mls/hr IV Q8 [facility] Last Admin: 06/12/17 05:42 Dose: 12.5 mls/hr Vancomycin HCl 1,750 mg/ (Sodium Chloride) 535 mls @ 260 mls/hr IV Q12H [facility] Last Admin: 06/12/17 05:42 Dose: 260 mls/hr Sodium Chloride () 250 mls @ 15 mls/hr IV .[id number] PRN PRN Reason: SALINE FLUSH Insulin Aspart (Novolog Flexpen (Bkc)) 0 units SC ACHS [facility] PRN Reason: Protocol Last Admin: 06/12/17 08:27 Dose: 3 u Insulin Aspart (Novolog Flexpen (Bk)) 40 units SC TIDCM [facility] PRN Reason: Protocol Last Admin: 06/12/17 08:28 Dose: 40 u Insulin Detemir (Levemir ([facility])) 100 units SC BID [facility] Last Admin: 06/12/17 08:29 Dose: 100 u Lactobacillus Acidophilus (Acidophilus) 1 tablet PO 4X/DAY [facility] Last Admin: 06/12/17 08:28 Dose: 1 tablet Loperamide HCl (Imodium) 2 mg PO Q2H PRN PRN PRN Reason: LOOSE STOOLS Last Admin: 06/11/17 12:17 Dose: 2 mg Losartan Potassium (Cozaar) 100 mg PO DAILY [facility] Last Admin: 06/12/17 08:28 Dose: 100 mg Magnesium Hydroxide (Milk Of Magnesia) 30 ml PO DAILY PRN PRN PRN Reason: Constipation Morphine Sulfate () 2 - 4 mg IV Q3H PRN PRN PRN Reason: moderate to severe pain Last Admin: 06/09/17 13:45 Dose: 4 mg Morphine Sulfate (Ms Contin) 15 mg PO TID [facility] Last Admin: 06/12/17 05:41 Dose: 15 mg Naproxen (Naprosyn) 500 mg PO BID [facility] Last Admin: 06/12/17 08:28 Dose: 500 mg Nitroglycerin (Nitrostat) 0.4 mg SUBLINGUAL Q5M PRN PRN Reason: Angina pain Nutritional Formula (Lactose Free) (Glucerna Shake) 120 ml PO 4X/DAY [facility] Last Admin: 06/11/17 22:15 Dose: 120 mls Ondansetron HCl (Zofran) 4 mg IV Q8H PRN PRN PRN Reason: NAUSEA Oxycodone HCl (Oxyir) 10 mg PO Q4H PRN PRN PRN Reason: Moderate Pain (pain scale 4-5) Last Admin: 06/11/17 18:02 Dose: 10 mg Pantoprazole Sodium (Protonix) 40 mg PO BID [facility] Last Admin: 06/12/17 08:29 Dose: 40 mg Promethazine HCl (Phenergan) 12.5 mg IV Q6H PRN PRN PRN Reason: NAUSEA/VOMITING Sodium Chloride () 10 - 20 ml IV UD PRN PRN Reason: PICC FLUSH Last Admin: 06/11/17 14:42 Dose: 10 ml Triamterene/HCTZ (Dyazide (G)) 1 cap PO DAILY [facility] Last Admin: 06/12/17 08:29 Dose: 1 cap Medical Necessity - Tobacco Use Smoking Status: Former smoker Tobacco Use: Non-smoker Assessment/Plan The patient is a 62 y/o M w/ PMHx: Chronic normocytic anemia (Hgb baseline 10-11), Diabetes mellitus type II with Neuropathy/Uncontrolled, HTN, HLD, Obesity, GERD, Chronic pain syndrome, Morbid Obesity w/ acute infected non-healing diabetic left foot ulcer/wound with chronic osteomyelitis despite recent surgery per Podiatry w/ concerns upon evaluation at [facility] per Dr. Rodriguez in addition to intermittent chest pain history, midsternal pressure with dyspnea associated as well as ongoing intermittent loose stools. (1) Recurrent LLE Infected Non-healing Diabetic Wound w/ Cellulitis w/ Chronic Osteomyelitis w/ Recent Infection Would w/ Proteus mirabilis/MRSA s/p OR recently: Recent as noted admission, s/p I+D w/ excisional debridement and partial ostectomy of the cuboid bone w/ VAC placement, worsened status noted at [facility] per Dr. Rodriguez. Admitted to [place], maintained on IV vanc and zosyn per discussion w/ ID who evaluated patient at [facility], pending repeat final Wound Cx w/ preliminary noting staph aureus, MRSA PCR positive as expected given recent culture prior, admission labs obtained w/ CBC w/ WBC 8.2 without marked shift, ESR 52, CRP 22.20, continue affected extremity elevation above heart when seated and in bed, monitor erythema outline with VS checks, continue dressing changes per Wound RN to which Dr. Weinstein was amenable. Both Podiatry and ID following. PRN pain regimen, PRN anti-emetic. Plan transition to TCU, possibly today, 06/12/17 with plan for return for amputation once Dr. Rodriguez returns, once less edematous. Cardiac evaluation complete, negative stress testing. (2) N/V/D, Suspect secondary to Abx Therapy and Acute Infection as noted #1: Resolving. Suspect secondary to abx therapy, c-diff negative, stool cx negative, added lactobacillus in addition to PRN loperamide, anti-emetics, pain regimen PRN. Given c-diff negative, added back PPI. (3) Chest Pain: EKG obtained with no acute evidence of ischemia upon presentation, initially maintained on a monitored bed to assure no acute myocardial infarction with serial cardiac enzymes and EKGs which remained unremarkable. 06/10/17 secondary to low Hgb w/ 1 u PRBC administered and repeat currently baseline. FLP not marked appearing except HDL 24. Mag normal. 06/11/17 nuclear stress testing negative per discussion with Dr. Alvarado. D/C telemetry. (4) Acute on Chronic Normocytic/Fe Deficiency Anemia: Admission Hgb 8.4, repeat 06/10/17 7.3, trend, no active bleeding per patient, baseline 8 range, stress testing noted need for improved Hgb prior to allowance, thus 06/10/17 1 u PRBC administered, 06/11/17 Hgb 8.6-->06/12/17 Hgb 7.9. (5) Hypertension: Continue home regimen including losartan, triamterene, hydrochlorothiazide, PRN hydralazine. (6) Hyperlipidemia: Continue home statin regimen. (7) Diabetes mellitus type II w/ Neuropathy, Poorly controlled: Hold oral home regimen, continue home insulin regimen, ADA diet, accu checks w/ ISS. Recent HgbA1c>9%, nutrition consulted for education, continue neurontin. (8) Morbid Obesity: Weight loss and lifestyle changes encouraged, nutrition consulted and performing education and teaching. (9) Anxiety and Depression: Maintain on home regimen Celexa and Wellbutrin. (10) Chronic Pain Syndrome: Maintain on fall precautions, position changes, therapies, home morphine SR and PRN oxycodone w/ breakthrough IV regimen. (11) PETRA: CPAP q HS. (12) GERD: PPI. (13) DVT Prophylaxis: SCDs, lovenox. (14) CODE status: FULL Code. (15) Disposition: TCU transition possible today, return for amputation per Dr. Rodriguez this upcoming week.
--- NOTE | 2017-06-12 09:19 | PN_ITS ---
Subjective: Patient with no acute events overnight per self and per nursing report. Patient doing well, tolerating antibiotic therapy, pain improved this morning, no further chest discomfort. Patient amenable to transition to TCU for continued antibiotic therapy awaiting Dr. Rodriguez date for surgery for amputation. Patient denies fevers, chills, nausea, emesis, abdominal pain, chest pain or dyspnea. Objective: Physical Examination: General: awake, alert, oriented x 3 and cooperative, seated upright in bed, improved appearance this AM, no pain currently. Skin: normal color, turgor, no icterus, cyanosis except dressed BL LE [admit LLE w/ wounds, dressing changes upon admission w/ noted wound bed of approximately 3 cm x 9 cm x 0.2 cm with periwound erythema, serosanguineous drainage, mild granulation appearance, edematous tissue, tenderness palpation ( medial) and additional wound bed of approximately 7.5 cm x 6.5 cm x 2 cm with periwound erythema, serosanguineous drainage, edematous tissue, noted mild yellow slough with some granulation tissue with bone visible (plantar)] HEENT: AT/NC, EOMI, PERRLA, improved MMM. Lungs: CTA bilaterally, moderate effort, moderate decrease BL bases, no rales, ronchi or wheezing. Heart: Regular rate and rhythm; no gallop, rub audible. Abdomen: soft, morbidly obese, NTTP, ND, normal BS. Extremities: no cyanosis, clubbing, s/p R TMA, see skin above. Neurological: patient awake, alert, oriented x 3; cognitive function intact; pupils equally reactive to light and accomodation; cranial nerves II-XII grossly normal, moving all 4 extremities, no focal deficits, strength improved, mildly to moderately globally decreased. Psychiatric: affect appears normal, no acute evidence of depressive or anxiety feelings. Vitals/I&O's: Vital Signs Temp Pulse Resp BP Pulse Ox 98 F 63 18 152/77 H 97 06/12/17 02:42 06/12/17 04:00 06/12/17 02:42 06/12/17 02:42 06/12/17 02:42 Oxygen Delivery Method Room Air Weight: 342 lb 2.519 oz Body Mass Index (BMI) 42.7 Finger Stick Blood Glucose 129 Intake and Output for Last 24 Hours 04/06/11/17 06/12/17 23:59 23:59 23:59 Intake Total 4598 / 4598 5657.9 / 5657.9 1392 / 1392 Output Total 1900 / 1900 3900 / 3900 1800 / 1800 Balance 2698 / 2698 1757.9 / 1757.9 -408 / -408 Microbiology Past 72 Hours 06/09/17 14:15 Wound - Left Foot Gram Stain - Final 06/09/17 14:15 Wound - Left Foot Wound Culture - Preliminary Staphylococcus aureus Enterococcus faecium 06/09/17 14:15 Wound - Left Foot Anaerobic Culture - Final No anaerobic bacteria isolated. 06/09/17 13:35 Stool Enteric Bacteriology - Final 06/09/17 13:35 Stool C. difficile DNA Amplification - Final Laboratory Results 06/11/17 11:46: POC Glucose 119 H 06/11/17 16:06: POC Glucose 82 06/11/17 22:11: POC Glucose 266 H 06/12/17 05:15: WBC 5.5, RBC 3.02 L, Hgb 7.9 L, Hct 26.5 L, MCV 87.7, MCH 26.2 L , MCHC 29.8 L, RDW 15.7 H, RDW Differential 48.2 H, Plt Count 351, MPV 8.9, Immature Gran % (Auto) 0.400, Neut % (Auto) 63.7, Lymph % (Auto) 19.9, [place] % ( Auto) 9.4, Eos % (Auto) 6.1 H, Baso % (Auto) 0.5, Absolute Neuts (auto) 3.5, Absolute Lymphs (auto) 1.10, Total Counted Not Reportable 06/12/17 05:15: Sodium 143, Potassium 3.8, Chloride 110 H, Carbon Dioxide 27.0, Anion Gap 6, BUN 14, Creatinine 0.97, Estim Creat Clear Calc 95.58, Est GFR ( MDRD) Af Amer 102, Est GFR (MDRD) Non-Af 84, BUN/Creatinine Ratio 14.5, Glucose 148 H, Calcium 7.7 L 06/12/17 08:24: POC Glucose 206 H Current Medications Acetaminophen (Tylenol) 650 mg PO Q6H PRN PRN PRN Reason: Mild Pain (scale 0-3)/T>100.7 Last Admin: 06/11/17 18:03 Dose: 650 mg Al Hydroxide/Mg Hydroxide (Mylanta Ii) 30 ml PO Q6H PRN PRN PRN Reason: Gastric burning Atorvastatin Calcium (Lipitor) 20 mg PO QHS [facility] Last Admin: 06/11/17 22:15 Dose: 20 mg Bupropion HCl (Wellbutrin Xl) 150 mg PO DAILY [facility] Last Admin: 06/12/17 08:28 Dose: 150 mg Citalopram Hydrobromide (Celexa) 40 mg PO DAILY [facility] Last Admin: 06/12/17 08:28 Dose: 40 mg Dextrose (D50w Syringe) 0 gm IV X1 PRN; Protocol PRN Reason: Hypoglycemia Enoxaparin Sodium (Lovenox) 40 mg SC DAILY@1000 [facility] Last Admin: 06/11/17 16:09 Dose: 40 mg Ferrous Sulfate (Ferrous Sulfate) 325 mg PO BIDCM [facility] Last Admin: 06/12/17 08:27 Dose: 325 mg Gabapentin (Neurontin) 800 mg PO 4X/DAY [facility] Last Admin: 06/12/17 08:28 Dose: 800 mg Glucagon () 1 mg IM .X1 PRN PRN Reason: Hypoglycemia Heparin Sodium (Beef Lung) (Heparin 500 Unit/5 Ml (100/Ml)) 500 unit IV UD PRN PRN Reason: HEPARIN FLUSH Hydralazine HCl (Apresoline Iv) 10 mg IV Q4H PRN PRN PRN Reason: SBP > 160 Last Admin: 06/11/17 14:42 Dose: 10 mg Sodium Chloride () 1,000 mls @ 100 mls/hr IV .Q10H [facility] Last Admin: 06/12/17 05:43 Dose: 100 mls/hr Piperacillin Sod/Tazobactam Sod (Zosyn) 3.375 gm in 50 mls @ 12.5 mls/hr IV Q8 [facility] Last Admin: 06/12/17 05:42 Dose: 12.5 mls/hr Vancomycin HCl 1,750 mg/ (Sodium Chloride) 535 mls @ 260 mls/hr IV Q12H [facility] Last Admin: 06/12/17 05:42 Dose: 260 mls/hr Sodium Chloride () 250 mls @ 15 mls/hr IV .[id number] PRN PRN Reason: SALINE FLUSH Insulin Aspart (Novolog Flexpen (Bkc)) 0 units SC ACHS [facility] PRN Reason: Protocol Last Admin: 06/12/17 08:27 Dose: 3 u Insulin Aspart (Novolog Flexpen (Bk)) 40 units SC TIDCM [facility] PRN Reason: Protocol Last Admin: 06/12/17 08:28 Dose: 40 u Insulin Detemir (Levemir ([facility])) 100 units SC BID [facility] Last Admin: 06/12/17 08:29 Dose: 100 u Lactobacillus Acidophilus (Acidophilus) 1 tablet PO 4X/DAY [facility] Last Admin: 06/12/17 08:28 Dose: 1 tablet Loperamide HCl (Imodium) 2 mg PO Q2H PRN PRN PRN Reason: LOOSE STOOLS Last Admin: 06/11/17 12:17 Dose: 2 mg Losartan Potassium (Cozaar) 100 mg PO DAILY [facility] Last Admin: 06/12/17 08:28 Dose: 100 mg Magnesium Hydroxide (Milk Of Magnesia) 30 ml PO DAILY PRN PRN PRN Reason: Constipation Morphine Sulfate () 2 - 4 mg IV Q3H PRN PRN PRN Reason: moderate to severe pain Last Admin: 06/09/17 13:45 Dose: 4 mg Morphine Sulfate (Ms Contin) 15 mg PO TID [facility] Last Admin: 06/12/17 05:41 Dose: 15 mg Naproxen (Naprosyn) 500 mg PO BID [facility] Last Admin: 06/12/17 08:28 Dose: 500 mg Nitroglycerin (Nitrostat) 0.4 mg SUBLINGUAL Q5M PRN PRN Reason: Angina pain Nutritional Formula (Lactose Free) (Glucerna Shake) 120 ml PO 4X/DAY [facility] Last Admin: 06/11/17 22:15 Dose: 120 mls Ondansetron HCl (Zofran) 4 mg IV Q8H PRN PRN PRN Reason: NAUSEA Oxycodone HCl (Oxyir) 10 mg PO Q4H PRN PRN PRN Reason: Moderate Pain (pain scale 4-5) Last Admin: 06/11/17 18:02 Dose: 10 mg Pantoprazole Sodium (Protonix) 40 mg PO BID [facility] Last Admin: 06/12/17 08:29 Dose: 40 mg Promethazine HCl (Phenergan) 12.5 mg IV Q6H PRN PRN PRN Reason: NAUSEA/VOMITING Sodium Chloride () 10 - 20 ml IV UD PRN PRN Reason: PICC FLUSH Last Admin: 06/11/17 14:42 Dose: 10 ml Triamterene/HCTZ (Dyazide (G)) 1 cap PO DAILY [facility] Last Admin: 06/12/17 08:29 Dose: 1 cap Medical Necessity - Tobacco Use Smoking Status: Former smoker Tobacco Use: Non-smoker Assessment/Plan The patient is a 62 y/o M w/ PMHx: Chronic normocytic anemia (Hgb baseline 10-11 ), Diabetes mellitus type II with Neuropathy/Uncontrolled, HTN, HLD, Obesity, GERD, Chronic pain syndrome, Morbid Obesity w/ acute infected non-healing diabetic left foot ulcer/wound with chronic osteomyelitis despite recent surgery per Podiatry w/ concerns upon evaluation at [facility] per Dr. Rodriguez in addition to intermittent chest pain history, midsternal pressure with dyspnea associated as well as ongoing intermittent loose stools. (1) Recurrent LLE Infected Non-healing Diabetic Wound w/ Cellulitis w/ Chronic Osteomyelitis w/ Recent Infection Would w/ Proteus mirabilis/MRSA s/p OR recently: Recent as noted admission, s/p I+D w/ excisional debridement and partial ostectomy of the cuboid bone w/ VAC placement, worsened status noted at [facility] per Dr. Rodriguez. Admitted to [place], maintained on IV vanc and zosyn per discussion w/ ID who evaluated patient at [facility], pending repeat final Wound Cx w/ preliminary noting staph aureus, MRSA PCR positive as expected given recent culture prior, admission labs obtained w/ CBC w/ WBC 8.2 without marked shift, ESR 52, CRP 22.20, continue affected extremity elevation above heart when seated and in bed, monitor erythema outline with VS checks, continue dressing changes per Wound RN to which Dr. Weinstein was amenable. Both Podiatry and ID following. PRN pain regimen, PRN anti-emetic. Plan transition to TCU, possibly today, 06/12/17 with plan for return for amputation once Dr. Rodriguez returns, once less edematous. Cardiac evaluation complete, negative stress testing. (2) N/V/D, Suspect secondary to Abx Therapy and Acute Infection as noted #1: Resolving. Suspect secondary to abx therapy, c-diff negative, stool cx negative , added lactobacillus in addition to PRN loperamide, anti-emetics, pain regimen PRN. Given c-diff negative, added back PPI. (3) Chest Pain: EKG obtained with no acute evidence of ischemia upon presentation, initially maintained on a monitored bed to assure no acute myocardial infarction with serial cardiac enzymes and EKGs which remained unremarkable. 06/10/17 secondary to low Hgb w/ 1 u PRBC administered and repeat currently baseline. FLP not marked appearing except HDL 24. Mag normal. 06/11/17 nuclear stress testing negative per discussion with Dr. Alvarado. D/C telemetry. (4) Acute on Chronic Normocytic/Fe Deficiency Anemia: Admission Hgb 8.4, repeat 06/10/17 7.3, trend, no active bleeding per patient, baseline 8 range, stress testing noted need for improved Hgb prior to allowance, thus 06/10/17 1 u PRBC administered, 06/11/17 Hgb 8.6-->06/12/17 Hgb 7.9. (5) Hypertension: Continue home regimen including losartan, triamterene, hydrochlorothiazide, PRN hydralazine. (6) Hyperlipidemia: Continue home statin regimen. (7) Diabetes mellitus type II w/ Neuropathy, Poorly controlled: Hold oral home regimen, continue home insulin regimen, ADA diet, accu checks w/ ISS. Recent HgbA1c>9%, nutrition consulted for education, continue neurontin. (8) Morbid Obesity: Weight loss and lifestyle changes encouraged, nutrition consulted and performing education and teaching. (9) Anxiety and Depression: Maintain on home regimen Celexa and Wellbutrin. (10) Chronic Pain Syndrome: Maintain on fall precautions, position changes, therapies, home morphine SR and PRN oxycodone w/ breakthrough IV regimen. (11) PETRA: CPAP q HS. (12) GERD: PPI. (13) DVT Prophylaxis: SCDs, lovenox. (14) CODE status: FULL Code. (15) Disposition: TCU transition possible today, return for amputation per Dr. Rodriguez this upcoming week.
--- NOTE | 2017-06-12 09:31 | PCM.TXEXTCAR ---
- Diet 06/10/17 11:19 ADA [Diet: Calorie Controlled] Food consistency:: Regular Liquid Consistency:: Regular/Thin Is pt able to select menu?: Yes How many daily calories?: 1800 calorie - Routine Orders/Code Status Enema Type: Fleetz Enema Frequency: Daily PRN Suppository Type: Dulcolax 10mg Suppository Frequency: Daily PRN Keep PO Greater than or Equal to (%): 92 Routine Lab Work: - - CBC, BMP once weekly, fax to Dr. Sanders office. Code Status: Full Code - Wound(s) Left foot (plantar) Wound Type: Neuropathic/Diabetic Foot Ulcer Dressing Change: Aquacel left foot (medial) Wound Type: Neuropathic/Diabetic Foot Ulcer Dressing Change: Aquacel followed by fluffed 4x4's - Suggestions for Active Care Change Position every (hours): 2 Hours to sit in a chair: 6 Times a day to sit in chair: 3 - Therapies Weight Bearing: Non weight bearing Extremity Affected:: Left Lower Physical Therapy: Eval and Treat Occupational Therapy: Eval and Treat - Problem/Diagnosis (1) Acute osteomyelitis of left foot Status: Acute Current Visit: No (2) Non-pressure chronic ulcer of left heel and midfoot with bone involvement without evidence of necrosis Status: Acute Current Visit: No (3) Nocturnal hypoxemia Status: Chronic Current Visit: No (4) 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 Yanes Current Visit: No (7) Gait instability Status: Chronic Current Visit: No (8) Peripheral vascular disease Status: Chronic Current Visit: No (9) Hypertension Status: Chronic Current Visit: No (10) Type 2 diabetes mellitus with diabetic polyneuropathy Status: Chronic Current Visit: No (11) Sleep apnea Status: Chronic Comment: CPAP 15 cm H20, 100% compliant Current Visit: No (12) Neuropathy Status: Chronic Comment: secondary to diabetes Current Visit: No (13) Morbid obesity Status: Chronic Current Visit: No (14) Anemia Status: Chronic Current Visit: No (15) Dyslipidemia Status: Chronic Current Visit: No (16) Chronic pain syndrome Status: Chronic Current Visit: No (17) Depression Status: Chronic Current Visit: No - Allergies/Procedures Done in Hospital Allergies/Adverse Reactions: Allergies cefepime Allergy (Verified 03/06/17 09:46) Hives lisinopril Allergy (Verified 03/06/17 09:46) cough sulfamethoxazole [From Septra] Allergy (Verified 03/06/17 09:46) turned red trimethoprim [From Septra] Allergy (Verified 03/06/17 09:46) turned red Procedures: EKG - Type of Care/Length of Stay Estimated LOS: Convalescent Care Less Than 30 days Type of Care Needed: Skilled Rehab Potential: Good Prognosis: Good - Additional Orders/Day of Discharge Additional Orders: (1) HOB. (2) IS 10x/hr 7a-7p. (3) BP medication parameters: Hold BP regimen for SBP < or = 110, hold any beta-ladi for HR < or = 60. (4) Fall precautions. (5) Nutrition education continuation for uncontrolled DM, HTN, Morbid Obesity. (6) Maintain on q HS CPAP as noted (settings above). (7) Continue PRN lomotil for loose stool associated with antibiotics, c-diff ruled out already. (8) Coordinate return for operative intervention per Dr. Rodriguez for planned amputation. (9) Contact Dr. Sanders with any antibiotic dosing/questions. (10) Continue wound care intervention, dressing changes daily and as needed. H&P will serve as current which was dated: 06/09/17 Day of Discharge: 06/12/17 - Dietary and Speech Recommendations Dietitian Recommendations/Changes: Recommend pt diet advance to 2200 calorie controlled cardiac diet. Recommend Greg 1 packet BID for wound healing. - Follow Up Care Primary Care Physician: Orion Cordova [Primary Care Provider] - Please follow up with your Primary Care Physician in: Follow-up 3-5 days to review plans and upcoming interventions. Please Follow Up With: Yariel Sanders MD When: Continue to follow, contact with Abx questions. Please Follow Up With: Lucho Rodriguez MD When: Plan return to [facility] for operative intervention in ~ [address] Rodriguez.
--- NOTE | 2017-06-12 09:37 | TREXTCAR_ITS ---
- Diet 06/10/17 11:19 ADA [Diet: Calorie Controlled] Food consistency:: Regular Liquid Consistency:: Regular/Thin Is pt able to select menu?: Yes How many daily calories?: 1800 calorie - Routine Orders/Code Status Enema Type: Fleetz Enema Frequency: Daily PRN Suppository Type: Dulcolax 10mg Suppository Frequency: Daily PRN Keep PO Greater than or Equal to (%): 92 Routine Lab Work: - - CBC, BMP once weekly, fax to Dr. Sanders office. Code Status: Full Code - Wound(s) Left foot (plantar) Wound Type: Neuropathic/Diabetic Foot Ulcer Dressing Change: Aquacel left foot (medial) Wound Type: Neuropathic/Diabetic Foot Ulcer Dressing Change: Aquacel followed by fluffed 4x4's - Suggestions for Active Care Change Position every (hours): 2 Hours to sit in a chair: 6 Times a day to sit in chair: 3 - Therapies Weight Bearing: Non weight bearing Extremity Affected:: Left Lower Physical Therapy: Eval and Treat Occupational Therapy: Eval and Treat - Problem/Diagnosis (1) Acute osteomyelitis of left foot Status: Acute Current Visit: No (2) Non-pressure chronic ulcer of left heel and midfoot with bone involvement without evidence of necrosis Status: Acute Current Visit: No (3) Nocturnal hypoxemia Status: Chronic Current Visit: No (4) 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 Yanes Current Visit: No (7) Gait instability Status: Chronic Current Visit: No (8) Peripheral vascular disease Status: Chronic Current Visit: No (9) Hypertension Status: Chronic Current Visit: No (10) Type 2 diabetes mellitus with diabetic polyneuropathy Status: Chronic Current Visit: No (11) Sleep apnea Status: Chronic Comment: CPAP 15 cm H20, 100% compliant Current Visit: No (12) Neuropathy Status: Chronic Comment: secondary to diabetes Current Visit: No (13) Morbid obesity Status: Chronic Current Visit: No (14) Anemia Status: Chronic Current Visit: No (15) Dyslipidemia Status: Chronic Current Visit: No (16) Chronic pain syndrome Status: Chronic Current Visit: No (17) Depression Status: Chronic Current Visit: No - Allergies/Procedures Done in Hospital Allergies/Adverse Reactions: Allergies cefepime Allergy (Verified 03/06/17 09:46) Hives lisinopril Allergy (Verified 03/06/17 09:46) cough sulfamethoxazole [From Septra] Allergy (Verified 03/06/17 09:46) turned red trimethoprim [From Septra] Allergy (Verified 03/06/17 09:46) turned red Procedures: EKG - Type of Care/Length of Stay Estimated LOS: Convalescent Care Less Than 30 days Type of Care Needed: Skilled Rehab Potential: Good Prognosis: Good - Additional Orders/Day of Discharge Additional Orders: (1) HOB. (2) IS 10x/hr 7a-7p. (3) BP medication parameters : Hold BP regimen for SBP < or = 110, hold any beta-ladi for HR < or = 60. ( 4) Fall precautions. (5) Nutrition education continuation for uncontrolled DM, HTN, Morbid Obesity. (6) Maintain on q HS CPAP as noted (settings above). (7) Continue PRN lomotil for loose stool associated with antibiotics, c-diff ruled out already. (8) Coordinate return for operative intervention per Dr. Rodriguez for planned amputation. (9) Contact Dr. Sanders with any antibiotic dosing/ questions. (10) Continue wound care intervention, dressing changes daily and as needed. H&P will serve as current which was dated: 06/09/17 Day of Discharge: 06/12/17 - Dietary and Speech Recommendations Dietitian Recommendations/Changes: Recommend pt diet advance to 2200 calorie controlled cardiac diet. Recommend Greg 1 packet BID for wound healing. - Follow Up Care Primary Care Physician: Orion Cordova [Primary Care Provider] - Please follow up with your Primary Care Physician in: Follow-up 3-5 days to review plans and upcoming interventions. Please Follow Up With: Yariel Sanders MD When: Continue to follow, contact with Abx questions. Please Follow Up With: Lucho Rodriguez MD When: Plan return to [facility] for operative intervention in ~ [address] Rodriguez.
--- NOTE | 2017-06-12 09:43 | PCM.DC.SUM ---
Discharge Date and Diagnosis Date of Admission: 06/09/17 Date of Discharge: 06/12/17 - Primary Discharge Diagnosis (1) Acute Staph Aureus, MRSA and Enterococcus Recurrent LLE Infected Non-healing Diabetic Wound w/ Cellulitis w/ Chronic Osteomyelitis w/ Recent Infection Would w/ Proteus mirabilis/MRSA (2) N/V/D, Suspect secondary to Abx Therapy and Acute Infection as noted #1 (3) Chest Pain, Non-cardiac, Unclear specific etiology, resolved (4) Acute on Chronic Normocytic/Fe Deficiency Anemia (5) Hypertension (6) Hyperlipidemia (7) Diabetes mellitus type II w/ Neuropathy, Poorly controlled (8) Morbid Obesity (9) Anxiety and Depression (10) Chronic Pain Syndrome (11) PETRA (12) GERD (13) CODE status: FULL Code. 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) Osteomyelitis (Chronic) Non-pressure chronic ulcer of left heel and midfoot with muscle involvement without evidence of necrosis (Chronic) Infection of left foot (Chronic) Hypersomnia (Chronic) Ulcer of midfoot with necrosis of muscle (Chronic) Nocturnal hypoxemia (Chronic) Abscess of left foot (Chronic) Diabetic ulcer of left foot with fat layer exposed (Chronic) Non-pressure chronic ulcer of left heel and midfoot with fat layer exposed (Chronic) 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 Venous insufficiency of both lower extremities (Chronic) S/P transmetatarsal amputation of foot (Chronic) 03/04/[address] 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 Sanders Podiatry Dr. Yanes. Operations: None, - - Incision and drainage, excisional debridement of nonhealing infected diabetic ulcer of the left foot, with partial ostectomy of the cuboid bone. Insertion of wound VAC. Procedures: None, EKG, Stress test Summary of Care Provided: The patient is a 62 y/o M w/ PMHx: Chronic normocytic anemia (Hgb baseline 10-11), Diabetes mellitus type II with Neuropathy/Uncontrolled, HTN, HLD, Obesity, GERD, Chronic pain syndrome, Morbid Obesity w/ acutely infected non-healing diabetic left foot ulcer/wound with chronic osteomyelitis despite recent surgery per Podiatry w/ concerns upon evaluation at [facility] per Dr. Rodriguez in addition to intermittent chest pain history, midsternal pressure with dyspnea associated as well as ongoing intermittent loose stools. Recent as noted admission, s/p I+D w/ excisional debridement and partial ostectomy of the cuboid bone w/ VAC placement, worsened status noted at [facility] per Dr. Rodriguez. Admitted to [facility], maintained on IV vanc and zosyn per discussion w/ ID who evaluated patient at [facility], repeat final Wound Cx w/ Acute Staph Aureus, MRSA and Enterococcus, admission labs obtained w/ CBC w/ WBC 8.2 without marked shift, ESR 52, CRP 22.20, continued affected extremity elevation w/ deferred weight bearing, elevation of extremity above heart when seated and in bed, monitored erythema outline with VS checks, continued dressing changes per Wound RN to which Dr. Weinstein was amenable. Both Podiatry and ID followed. Patient clinically improved, thus transitioned to TCU with plan for return for amputation per Dr. Rodriguez discretion and once less edematous. N/V/D, Suspect secondary to Abx Therapy and Acute Infection as noted, resolved, c-diff negative, stool cx negative, added lactobacillus in addition to PRN loperamide. During admission given chest pain complaint, EKG obtained with no acute evidence of ischemia upon presentation, initially maintained on a monitored bed to assure no acute myocardial infarction with serial cardiac enzymes and EKGs which remained unremarkable. FLP not marked appearing except HDL 24. Mag normal. 06/11/17 nuclear stress testing negative per discussion with Dr. Alvarado. D/C telemetry. Patient w/ Acute on Chronic Normocytic/Fe Deficiency Anemia w/ admission Hgb 8.4, repeat 06/10/17 7.3, trend, no active bleeding per patient, baseline 8 range, stress testing held initially until Hgb administration per Cardiology request, thus during admission 06/10/17 1 u PRBC administered, 06/11/17 Hgb 8.6-->06/12/17 Hgb 7.9. Patient otherwise clinically improved, nutrition consulted for ongoing education and teaching given poorly controlled DM and morbid obesity. DAY OF DISCHARGE PROGRESS NOTE: Subjective: Patient without acute event overnight per self and nursing report. Pain improved this AM. No chest pain recurrence. Patient denies fever, chills, nausea, emesis, abdominal pain, chest pain or dyspnea. Patient agreeable to discharge to TCU for planned return for amputation per Dr. Rodriguez in ~ 1 week. Patient will be discharged with follow-up with primary care physician, continued evaluation per ID, Podiatry and Wound RN with planned return to [facility] within ~ [address] Rodriguez discretion. Objective: T 98, heart rate 67, BP 141/74, respiratory rate 16, 97% on room air. Physical Examination: General: awake, alert, oriented x 3 and cooperative, seated upright in bed, improved appearance this AM, no pain currently. Skin: normal color, turgor, no icterus, cyanosis except dressed BL LE [admit LLE w/ wounds, dressing changes upon admission w/ noted wound bed of approximately 3 cm x 9 cm x 0.2 cm with periwound erythema, serosanguineous drainage, mild granulation appearance, edematous tissue, tenderness palpation (medial) and additional wound bed of approximately 7.5 cm x 6.5 cm x 2 cm with periwound erythema, serosanguineous drainage, edematous tissue, noted mild yellow slough with some granulation tissue with bone visible (plantar)] HEENT: AT/NC, EOMI, PERRLA, improved MMM. Lungs: CTA bilaterally, moderate effort, moderate decrease BL bases, no rales, ronchi or wheezing. Heart: Regular rate and rhythm; no gallop, rub audible. Abdomen: soft, morbidly obese, NTTP, ND, normal BS. Extremities: no cyanosis, clubbing, s/p R TMA, see skin above. Neurological: patient awake, alert, oriented x 3; cognitive function intact; pupils equally reactive to light and accomodation; cranial nerves II-XII grossly normal, moving all 4 extremities, no focal deficits, strength improved, mildly to moderately globally decreased. Psychiatric: affect appears normal, no acute evidence of depressive or anxiety feelings. Assessment and Plan: Please see hospital summary above. Home Medications: Medications to take at Discharge Insulin Detemir [Levemir FlexPen] 100 units SC BID 10/12/14 Citalopram [Celexa] 40 mg PO DAILY 11/15/14 Metformin HCl [Glucophage] 1,000 mg PO BIDCM 11/15/14 Losartan Potassium [Cozaar] 100 mg PO DAILY 06/05/16 buPROPion XL [Wellbutrin Xl] 150 mg PO DAILY 01/21/17 glimepiride 4 mg tablet 4 mg PO BID tab 01/31/17 Insulin Aspart [Novolog Flexpen] 30 units SC TIDCM 03/24/17 Simvastatin 40 mg PO QHS 03/24/17 Triamterene/Hydrochlorothiazid [Triamterene-Hctz 37.5-25 mg Cp] 1 each PO DAILY 03/24/17 Gabapentin [Neurontin] 800 mg PO 4X/DAY 05/28/17 Naproxen [Naprosyn] 500 mg PO BID 05/28/17 Ferrous Sulfate 325 mg PO BIDCM #60 tab 06/04/17 Albuterol Aerosols [Ventolin Aerosols] 2.5 mg INHALATION Q4H PRN PRN 06/09/17 Acetaminophen [Tylenol Tablet] 650 mg PO Q6H PRN PRN tablet 06/12/17 Enoxaparin [Lovenox] 40 mg SC DAILY@1000 syringe 06/12/17 Glucerna Shake 120 ml PO 4X/DAY liquid 06/12/17 Insulin Aspart [Novolog Flexpen] See Protocol SC ACHS flexpen 06/12/17 Lactobacillus Acidophilus [Acidophilus] 1 tablet PO 4X/DAY tablet 06/12/17 Loperamide [Imodium] 2 mg PO Q2H PRN PRN capsule 06/12/17 Mag Hydrox/Al Hydrox/Simeth [Mylanta II] 30 ml PO Q6H PRN PRN udc 06/12/17 Magnesium Hydroxide [Milk Of Magnesia] 30 ml PO DAILY PRN PRN udc 06/12/17 Oxycodone [Oxyir] 10 mg PO Q4H PRN PRN 2 Days #10 tab 06/12/17 Piperacil/Tazobactam [Zosyn] 3.375 gm IV Q8 ml 06/12/17 Vancomycin 1,750 mg IV Q12H #0 vial 06/12/17 morphine SR tablet [Ms Contin] 15 mg PO TID 1 Days #3 tab 06/12/17 Following Prescrptions Were Given to Patient: Oxycodone [Oxyir] 10 mg PO Q4H PRN PRN 2 Days #10 tab PRN Reason: Moderate Pain (pain scale 4-5) morphine SR tablet [Ms Contin] 15 mg PO TID 1 Days #3 tab Primary Care Physician: Orion Cordova [Primary Care Provider] - Please follow up with your Primary Care Physician in: Follow-up 3-5 days to review plans and upcoming interventions. Please Follow Up With: Yariel Sanders MD When: Continue to follow, contact with Abx questions. Please Follow Up With: Lucho Rodriguez MD When: Plan return to [facility] for operative intervention in ~ [address] Rodriguez. Disposition: Correction facility Minutes spent on discharge:: 35 Patient Condition:: Fair Medical Necessity - Tobacco Use Smoking Status: Former smoker Tobacco Use: Non-smoker Meaningful Use Info Meaningful Use Diagnoses (Choose all that apply): None applicable Code Visit Inpatient E&M: 27419 Disch Hosp
--- NOTE | 2017-06-12 09:55 | DS.PCM_ITS ---
Discharge Date and Diagnosis Date of Admission: 06/09/17 Date of Discharge: 06/12/17 - Primary Discharge Diagnosis (1) Acute Staph Aureus, MRSA and Enterococcus Recurrent LLE Infected Non- healing Diabetic Wound w/ Cellulitis w/ Chronic Osteomyelitis w/ Recent Infection Would w/ Proteus mirabilis/MRSA (2) N/V/D, Suspect secondary to Abx Therapy and Acute Infection as noted #1 (3) Chest Pain, Non-cardiac, Unclear specific etiology, resolved (4) Acute on Chronic Normocytic/Fe Deficiency Anemia (5) Hypertension (6) Hyperlipidemia (7) Diabetes mellitus type II w/ Neuropathy, Poorly controlled (8) Morbid Obesity (9) Anxiety and Depression (10) Chronic Pain Syndrome (11) PETRA (12) GERD (13) CODE status: FULL Code. 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) Osteomyelitis (Chronic) Non-pressure chronic ulcer of left heel and midfoot with muscle involvement without evidence of necrosis (Chronic) Infection of left foot (Chronic) Hypersomnia (Chronic) Ulcer of midfoot with necrosis of muscle (Chronic) Nocturnal hypoxemia (Chronic) Abscess of left foot (Chronic) Diabetic ulcer of left foot with fat layer exposed (Chronic) Non-pressure chronic ulcer of left heel and midfoot with fat layer exposed ( Chronic) 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 Venous insufficiency of both lower extremities (Chronic) S/P transmetatarsal amputation of foot (Chronic) 03/04/[address] 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 Sanders Podiatry Dr. Yanes. Operations: None, - - Incision and drainage, excisional debridement of nonhealing infected diabetic ulcer of the left foot, with partial ostectomy of the cuboid bone. Insertion of wound VAC. Procedures: None, EKG, Stress test Summary of Care Provided: The patient is a 62 y/o M w/ PMHx: Chronic normocytic anemia (Hgb baseline 10-11 ), Diabetes mellitus type II with Neuropathy/Uncontrolled, HTN, HLD, Obesity, GERD, Chronic pain syndrome, Morbid Obesity w/ acutely infected non-healing diabetic left foot ulcer/wound with chronic osteomyelitis despite recent surgery per Podiatry w/ concerns upon evaluation at [facility] per Dr. Rodriguez in addition to intermittent chest pain history, midsternal pressure with dyspnea associated as well as ongoing intermittent loose stools. Recent as noted admission, s/p I+D w/ excisional debridement and partial ostectomy of the cuboid bone w/ VAC placement, worsened status noted at [facility] per Dr. Rodriguez. Admitted to SC, maintained on IV vanc and zosyn per discussion w/ ID who evaluated patient at [facility], repeat final Wound Cx w/ Acute Staph Aureus, MRSA and Enterococcus, admission labs obtained w/ CBC w/ WBC 8.2 without marked shift, ESR 52, CRP 22.20, continued affected extremity elevation w/ deferred weight bearing, elevation of extremity above heart when seated and in bed, monitored erythema outline with VS checks, continued dressing changes per Wound RN to which Dr. Weinstein was amenable. Both Podiatry and ID followed. Patient clinically improved, thus transitioned to TCU with plan for return for amputation per Dr. Rodriguez discretion and once less edematous. N/V/D, Suspect secondary to Abx Therapy and Acute Infection as noted, resolved, c-diff negative, stool cx negative, added lactobacillus in addition to PRN loperamide. During admission given chest pain complaint, EKG obtained with no acute evidence of ischemia upon presentation, initially maintained on a monitored bed to assure no acute myocardial infarction with serial cardiac enzymes and EKGs which remained unremarkable. FLP not marked appearing except HDL 24. Mag normal. 06/11/17 nuclear stress testing negative per discussion with Dr. Alvarado. D/C telemetry. Patient w/ Acute on Chronic Normocytic/Fe Deficiency Anemia w/ admission Hgb 8.4 , repeat 06/10/17 7.3, trend, no active bleeding per patient, baseline 8 range, stress testing held initially until Hgb administration per Cardiology request, thus during admission 06/10/17 1 u PRBC administered, 06/11/17 Hgb 8.6-->06/12/17 Hgb 7.9. Patient otherwise clinically improved, nutrition consulted for ongoing education and teaching given poorly controlled DM and morbid obesity. DAY OF DISCHARGE PROGRESS NOTE: Subjective: Patient without acute event overnight per self and nursing report. Pain improved this AM. No chest pain recurrence. Patient denies fever, chills, nausea, emesis, abdominal pain, chest pain or dyspnea. Patient agreeable to discharge to TCU for planned return for amputation per Dr. Rodriguez in ~ 1 week. Patient will be discharged with follow-up with primary care physician, continued evaluation per ID, Podiatry and Wound RN with planned return to [facility] within ~ [address] Rodriguez discretion. Objective: T 98, heart rate 67, BP 141/74, respiratory rate 16, 97% on room air. Physical Examination: General: awake, alert, oriented x 3 and cooperative, seated upright in bed, improved appearance this AM, no pain currently. Skin: normal color, turgor, no icterus, cyanosis except dressed BL LE [admit LLE w/ wounds, dressing changes upon admission w/ noted wound bed of approximately 3 cm x 9 cm x 0.2 cm with periwound erythema, serosanguineous drainage, mild granulation appearance, edematous tissue, tenderness palpation ( medial) and additional wound bed of approximately 7.5 cm x 6.5 cm x 2 cm with periwound erythema, serosanguineous drainage, edematous tissue, noted mild yellow slough with some granulation tissue with bone visible (plantar)] HEENT: AT/NC, EOMI, PERRLA, improved MMM. Lungs: CTA bilaterally, moderate effort, moderate decrease BL bases, no rales, ronchi or wheezing. Heart: Regular rate and rhythm; no gallop, rub audible. Abdomen: soft, morbidly obese, NTTP, ND, normal BS. Extremities: no cyanosis, clubbing, s/p R TMA, see skin above. Neurological: patient awake, alert, oriented x 3; cognitive function intact; pupils equally reactive to light and accomodation; cranial nerves II-XII grossly normal, moving all 4 extremities, no focal deficits, strength improved, mildly to moderately globally decreased. Psychiatric: affect appears normal, no acute evidence of depressive or anxiety feelings. Assessment and Plan: Please see hospital summary above. Home Medications: Medications to take at Discharge Insulin Detemir [Levemir FlexPen] 100 units SC BID 10/12/14 Citalopram [Celexa] 40 mg PO DAILY 11/15/14 Metformin HCl [Glucophage] 1,000 mg PO BIDCM 11/15/14 Losartan Potassium [Cozaar] 100 mg PO DAILY 06/05/16 buPROPion XL [Wellbutrin Xl] 150 mg PO DAILY 01/21/17 glimepiride 4 mg tablet 4 mg PO BID tab 01/31/17 Insulin Aspart [Novolog Flexpen] 30 units SC TIDCM 03/24/17 Simvastatin 40 mg PO QHS 03/24/17 Triamterene/Hydrochlorothiazid [Triamterene-Hctz 37.5-25 mg Cp] 1 each PO DAILY 03/24/17 Gabapentin [Neurontin] 800 mg PO 4X/DAY 05/28/17 Naproxen [Naprosyn] 500 mg PO BID 05/28/17 Ferrous Sulfate 325 mg PO BIDCM #60 tab 06/04/17 Albuterol Aerosols [Ventolin Aerosols] 2.5 mg INHALATION Q4H PRN PRN 06/09/17 Acetaminophen [Tylenol Tablet] 650 mg PO Q6H PRN PRN tablet 06/12/17 Enoxaparin [Lovenox] 40 mg SC DAILY@1000 syringe 06/12/17 Glucerna Shake 120 ml PO 4X/DAY liquid 06/12/17 Insulin Aspart [Novolog Flexpen] See Protocol SC ACHS flexpen 06/12/17 Lactobacillus Acidophilus [Acidophilus] 1 tablet PO 4X/DAY tablet 06/12/17 Loperamide [Imodium] 2 mg PO Q2H PRN PRN capsule 06/12/17 Mag Hydrox/Al Hydrox/Simeth [Mylanta II] 30 ml PO Q6H PRN PRN udc 06/12/17 Magnesium Hydroxide [Milk Of Magnesia] 30 ml PO DAILY PRN PRN udc 06/12/17 Oxycodone [Oxyir] 10 mg PO Q4H PRN PRN 2 Days #10 tab 06/12/17 Piperacil/Tazobactam [Zosyn] 3.375 gm IV Q8 ml 06/12/17 Vancomycin 1,750 mg IV Q12H #0 vial 06/12/17 morphine SR tablet [Ms Contin] 15 mg PO TID 1 Days #3 tab 06/12/17 Following Prescrptions Were Given to Patient: Oxycodone [Oxyir] 10 mg PO Q4H PRN PRN 2 Days #10 tab PRN Reason: Moderate Pain (pain scale 4-5) morphine SR tablet [Ms Contin] 15 mg PO TID 1 Days #3 tab Primary Care Physician: Orion Cordova [Primary Care Provider] - Please follow up with your Primary Care Physician in: Follow-up 3-5 days to review plans and upcoming interventions. Please Follow Up With: Yariel Sanders MD When: Continue to follow, contact with Abx questions. Please Follow Up With: Lucho Rodriguez MD When: Plan return to [facility] for operative intervention in ~ [address] Rodriguez. Disposition: Half-Way facility Minutes spent on discharge:: 35 Patient Condition:: Fair Medical Necessity - Tobacco Use Smoking Status: Former smoker Tobacco Use: Non-smoker Meaningful Use Info Meaningful Use Diagnoses (Choose all that apply): None applicable Code Visit Inpatient E&M: 74282 Disch Hosp
--- NOTE | 2017-06-12 10:45 | PCM.PN.ID ---
Subjective: Feeling good, diarrhea much better, leg less swollen, no fever. - Physical Exam General: Alert, Cooperative, No apparent distress Lungs: Clear to auscultation, Normal air movement Cardiovascular: Regular rate, Regular Rhythm Abdomen: Soft, Non Tender, Non-Distended Extremities: Edema Skin: Ulcer/ Wound - L wrapped Vital Signs Temp Pulse Resp BP Pulse Ox 98 F 63 18 152/77 H 97 06/12/17 02:42 06/12/17 04:00 06/12/17 02:42 06/12/17 02:42 06/12/17 02:42 Oxygen Delivery Method Room Air Weight: 155.2 kg Body Mass Index (BMI) 42.7 Finger Stick Blood Glucose 129 Intake and Output for Last 24 Hours 06/10/17 06/11/17 06/12/17 23:59 23:59 23:59 Intake Total 4598 / 4598 5657.9 / 5657.9 1392 / 1392 Output Total 1900 / 1900 3900 / 3900 1800 / 1800 Balance 2698 / 2698 1757.9 / 1757.9 -408 / -408 Microbiology Past 72 Hours 06/09/17 14:15 Gram Stain - Final Wound - Left Foot Wound Culture - Preliminary Staphylococcus aureus Enterococcus faecium Anaerobic Culture - Final No anaerobic bacteria isolated. 06/09/17 13:35 Enteric Bacteriology - Final Stool 06/09/17 13:35 C. difficile DNA Amplification - Final Stool Laboratory Tests Past 24 Hrs 06/12/17 06/12/17 05:15 05:15 WBC 5.5 RBC 3.02 L Hgb 7.9 L Hct 26.5 L MCV 87.7 MCH 26.2 L MCHC 29.8 L RDW 15.7 H RDW Differential 48.2 H Plt Count 351 MPV 8.9 Immature Gran % (Auto) 0.400 Neut % (Auto) 63.7 Lymph % (Auto) 19.9 [place] % (Auto) 9.4 Eos % (Auto) 6.1 H Baso % (Auto) 0.5 Absolute Neuts (auto) 3.5 Absolute Lymphs (auto) 1.10 Total Counted Not Reportable Sodium 143 Potassium 3.8 Chloride 110 H Carbon Dioxide 27.0 Anion Gap 6 BUN 14 Creatinine 0.97 Estim Creat Clear Calc 95.58 Est GFR (MDRD) Af Amer 102 Est GFR (MDRD) Non-Af 84 BUN/Creatinine Ratio 14.5 Glucose 148 H Calcium 7.7 L POC Glucose 06/12/17 06/11/17 06/11/17 08:24 22:11 16:06 POC Glucose 206 H 266 H 82 06/11/17 11:46 POC Glucose 119 H Medical Necessity - Tobacco Use Smoking Status: Former smoker Tobacco Use: Non-smoker Route of nutrition/ use of supplements: [] Nutritional Intake: [] IV Site: [] Tam Catheter: [] - Assessment/Plan Antibiotics: [] Assessment/Plan: [] L foot osteo - worsened while on iv abx at [facility]. Recommend source control with BKA. Cont vanc/zosyn. Leg improved today. Cx with MRSA and enterococcus, will follow susceptibility testing. diarrhea - cdiff neg, now improved Will follow, D/w Dr. Rubio.
--- NOTE | 2017-06-12 10:54 | NURSING ---
wound photo: left medial foot
--- NOTE | 2017-06-12 10:54 | NURSING ---
wound photo: left plantar foot
--- NOTE | 2017-06-12 10:55 | NURSING ---
photo: left lower leg
[2017-06-12 12:25] LABS: Bedside Glucose 204 mg/dL (70-110)
[2017-06-12] MEDS: Glucerna Shake 120 ML LIQUID PO (15:00)
[2017-06-12] MEDS: Enoxaparin 40 MG/0.4 ML Syringe SC (15:01)
[2017-06-12 15:05] VITALS: BP 157/67; PULSE 72; RESP 18; TEMP 36.7; O2SAT 100
[2017-06-12] MEDS: oxyCODONE 5 MG Tablet 10 MG PO (15:13)
[2017-06-12] MEDS: Acetaminophen 325 MG Tablet 650 MG PO (15:14)
== END 2017-06-12 16:35 | disposition skilled nursing facility (03) | DRG 638 ==
PROVIDERS: Admitting Provider Family Medicine; Family Provider Family Medicine; PCP Family Medicine; Visit Provider Family Medicine
DX: E11.69 Type 2 diabetes mellitus with other specified complication (principal); M86.172 Other acute osteomyelitis, left ankle and foot; L03.116 Cellulitis of left lower limb; L97.426 Non-pressure chronic ulcer of left heel and midfoot with bone involvement without evidence of necrosis; Z68.41 Body mass index [BMI] 40.0-44.9, adult; M86.672 Other chronic osteomyelitis, left ankle and foot; E11.621 Type 2 diabetes mellitus with foot ulcer; B95.62 Methicillin resistant Staphylococcus aureus infection as the cause of diseases classified elsewhere; B95.2 Enterococcus as the cause of diseases classified elsewhere; B96.4 Proteus (mirabilis) (morganii) as the cause of diseases classified elsewhere; E11.610 Type 2 diabetes mellitus with diabetic neuropathic arthropathy; E11.42 Type 2 diabetes mellitus with diabetic polyneuropathy; E11.51 Type 2 diabetes mellitus with diabetic peripheral angiopathy without gangrene; E11.65 Type 2 diabetes mellitus with hyperglycemia; R07.89 Other chest pain; I10 Essential (primary) hypertension; E78.5 Hyperlipidemia, unspecified; G89.4 Chronic pain syndrome; M14.672 Charcot's joint, left ankle and foot; M14.671 Charcot's joint, right ankle and foot; R11.2 Nausea with vomiting, unspecified; R19.7 Diarrhea, unspecified; T36.95XA Adverse effect of unspecified systemic antibiotic, initial encounter; Y92.9 Unspecified place or not applicable; R07.9 Chest pain, unspecified; D50.9 Iron deficiency anemia, unspecified; G47.33 Obstructive sleep apnea (adult) (pediatric); E55.9 Vitamin D deficiency, unspecified; F32.9 Major depressive disorder, single episode, unspecified; F41.9 Anxiety disorder, unspecified; K21.9 Gastro-esophageal reflux disease without esophagitis; E66.01 Morbid (severe) obesity due to excess calories; Z89.431 Acquired absence of right foot; Z79.4 Long term (current) use of insulin; Z79.01 Long term (current) use of anticoagulants; Z79.1 Long term (current) use of non-steroidal anti-inflammatories (NSAID); Z79.891 Long term (current) use of opiate analgesic; Z79.899 Other long term (current) drug therapy; Z91.19 Patient's noncompliance with other medical treatment and regimen; Z87.891 Personal history of nicotine dependence
CPT/HCPCS: 36415; 71046; 78452; 80048; 80061; 80202; 82962; 83735; 84484; 85025; 85652; 86140; 86850; 86900; 86920; 86922; 87070; 87075; 87077; 87186; 87205; 87493; 87506; 87640; 93005; 93017; 97110; 97116; 97162; 97165; 97530; 97802; A9500; J7030; J7040; P9016; A4216; J2785

== ENCOUNTER 2017-06-12 16:49 | Inpatient (IN) | payer MEDICARE, SELFPAY ==
[2017-06-12 17:10] LABS: Bedside Glucose 106 mg/dL (70-110)
[2017-06-12] MEDS: Naproxen 500 MG Tablet PO (18:39)
[2017-06-12] MEDS: Gabapentin 800 MG Tablet PO ×2 (18:41→22:43)
[2017-06-12] MEDS: Glimepiride 4 MG Tablet PO (18:42)
[2017-06-12] MEDS: Ferrous Sulfate 325 MG Tablet PO ×2 (18:43)
[2017-06-12] MEDS: metFORMIN HCl 1,000 MG Tablet 1000 MG PO (18:43)
[2017-06-12 19:43] VITALS: BP 174/84; PULSE 72; RESP 18; TEMP 36.2; O2SAT 97; BMI 42.2
--- NOTE | 2017-06-12 20:00 | NURSING ---
Per Shift Change Report Patient arrived to this unit at 1730 from Med surg 2.
[2017-06-12 20:56] LABS: Bedside Glucose 110 mg/dL (70-110)
--- NOTE | 2017-06-12 21:22 | PCM.HP.STD ---
Problem List (1) Obstructive sleep apnea Status: Chronic (2) Hyperlipidemia Status: Chronic (3) Chronic pain Status: Chronic (4) Acute osteomyelitis of left foot Status: Acute (5) Non-pressure chronic ulcer of left heel and midfoot with bone involvement without evidence of necrosis Status: Acute (6) Type 2 diabetes mellitus with Charcot's joint arthropathy Status: Chronic (7) Venous insufficiency of both lower extremities Status: Chronic (8) Gait instability Status: Chronic (9) Peripheral vascular disease Status: Chronic (10) Hypertension Status: Chronic (11) Neuropathy Status: Chronic Comment: secondary to diabetes (12) Morbid obesity Status: Chronic (13) Anemia Status: Chronic Qualifiers: (14) Depression Status: Chronic Qualifiers: History of Present Illness Date of Admission: 06/12/17 Chief Complaint: Here for rehabilitation, strengthening, intravenous antibiotics, prior to amputation with Dr. Rodriguez. The patient is a 62 year old Male with below past medical history admitted to [facility] 06/09/[address] Rodriguez directly admitted patient to hospital. Worsening left foot infection despite VAC dressing, oral Flagyl, IV Vancomycin, IV Rocephin. Intermittent chest pain. IV Vancomycin, IV Zosyn per Infectious Disease. Evaluate chest pain prior to surgery. Wound culture grew S. Aureus, MRSA, Enterococcus. Diarrhea negative for C. Diff, Stool culture negative, maintained on Lactobacillus. Chest pain ruled out for CO. 06/11/2017 Nuclear stress test negative per Dr. Alvarado. Transfused 1 unit PRBC for anemia. 06/12/2017 Admit to TCU for rehabilitation, strengthening, intravenous antibiotics, prior to amputation with Dr. Rodriguez. 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) Obstructive sleep apnea (Chronic) Hyperlipidemia (Chronic) Chronic pain (Chronic) Osteomyelitis (Chronic) Non-pressure chronic ulcer of left heel and midfoot with muscle involvement without evidence of necrosis (Chronic) Infection of left foot (Chronic) Hypersomnia (Chronic) Ulcer of midfoot with necrosis of muscle (Chronic) Nocturnal hypoxemia (Chronic) Abscess of left foot (Chronic) Diabetic ulcer of left foot with fat layer exposed (Chronic) Non-pressure chronic ulcer of left heel and midfoot with fat layer exposed (Chronic) 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 Venous insufficiency of both lower extremities (Chronic) S/P transmetatarsal amputation of foot (Chronic) 03/04/[address] 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) Hypertension (Chronic) Amputation of right foot with complication (Chronic) Type 2 diabetes mellitus with diabetic polyneuropathy (Chronic) Stasis dermatitis of both legs (Chronic) Sleep apnea (Chronic) CPAP 15 cm H20, 100% compliant Neuropathy (Chronic) secondary to diabetes Morbid obesity (Chronic) Anemia (Chronic) Dyslipidemia (Chronic) Left ventricular hypertrophy (Chronic) Chronic pain syndrome (Chronic) Depression (Chronic) Allergies cefepime Allergy (Verified 03/06/17 09:46) Hives lisinopril Allergy (Verified 03/06/17 09:46) cough sulfamethoxazole [From Septra] Allergy (Verified 03/06/17 09:46) turned red trimethoprim [From Octra] Allergy (Verified 03/06/17 09:46) turned red Home Medications: Ambulatory Orders Medication Instructions Recorded Insulin Detemir [Levemir FlexPen] 100 units SC BID 10/12/14 Citalopram [Celexa] 40 mg PO DAILY 11/15/14 Metformin HCl [Glucophage] 1,000 mg PO BIDCM 11/15/14 Losartan Potassium [Cozaar] 100 mg PO DAILY 06/05/16 buPROPion XL [Wellbutrin Xl] 150 mg PO DAILY 01/21/17 glimepiride 4 mg tablet 4 mg PO BID tab 01/31/17 Insulin Aspart [Novolog Flexpen] 30 units SC TIDCM 03/24/17 Simvastatin 40 mg PO QHS 03/24/17 Triamterene/Hydrochlorothiazid 1 each PO DAILY 03/24/17 [Triamterene-Hctz 37.5-25 mg Cp] Gabapentin [Neurontin] 800 mg PO 4X/DAY 05/28/17 Naproxen [Naprosyn] 500 mg PO BID 05/28/17 Ferrous Sulfate 325 mg PO BIDCM #60 tab 06/04/17 Albuterol Aerosols [Ventolin 2.5 mg INHALATION Q4H PRN PRN 06/09/17 Aerosols] Acetaminophen [Tylenol Tablet] 650 mg PO Q6H PRN PRN tablet 06/12/17 Enoxaparin [Lovenox] 40 mg SC DAILY@1000 syringe 06/12/17 Glucerna Shake 120 ml PO 4X/DAY liquid 06/12/17 Insulin Aspart [Novolog Flexpen] See Protocol SC ACHS flexpen 06/12/17 Lactobacillus Acidophilus 1 tablet PO 4X/DAY tablet 06/12/17 [Acidophilus] Loperamide [Imodium] 2 mg PO Q2H PRN PRN capsule 06/12/17 Mag Hydrox/Al Hydrox/Simeth 30 ml PO Q6H PRN PRN udc 06/12/17 [Mylanta II] Magnesium Hydroxide [Milk Of 30 ml PO DAILY PRN PRN udc 06/12/17 Magnesia] Oxycodone [Oxyir] 10 mg PO Q4H PRN PRN 2 Days #10 tab 06/12/17 Piperacil/Tazobactam [Zosyn] 3.375 gm IV Q8 ml 06/12/17 Vancomycin 1,750 mg IV Q12H #0 vial 06/12/17 morphine SR tablet [Ms Contin] 15 mg PO TID 1 Days #3 tab 06/12/17 Surgical History: - - Debridement left foot ulcer with versajet including necrotic muscle and widespread debridement plantar foot and incision and drainage left foot 01/24/17, Bone biopsy calcaneal cuboid bone left foot and excisional debridement left plantar foot ulceration 10/18/16, Right foot trans metatarsal amputation 03/04/16, Partial 4th toe amputation right foot at PIP joint 12/09/15, Excisional debridement including fascia left great toe 04/03/15, Right hallux amputation at MTP joint 12/29/14, microdiscectomy ?2, deviated septal repair, ulnar nerve repair, cholecystectomy. Psychiatric History: Depression Lives: Mcfp Smoking Status: Former smoker Tobacco Use: Non-smoker Alcohol: None Drugs: None - *Family History Maternal History Items: Cancer, Heart Disease Paternal History Items: Heart Disease Review of Systems Constitutional: Denies: Chills, Fever, Weight Change HEENT: Denies: Head Aches, Sinus Congestion, Sinus Drainage Cardiovascular: Denies: Chest Pain, Palpitations Respiratory: Denies: Cough, Shortness of breath at rest, Sputum production Gastrointestinal: Denies: Abdominal Pain, Nausea, Vomiting Genitourinary: Denies: Dysuria Musculoskeletal: Denies: Joint Pain, Joint Tenderness Skin: Denies: Rash, Wounds Neurological: Denies: Numbness, Tingling, Focal weakness Psychiatric: Denies: Anxiety, Depression, Homicidal Ideations, Suicidal Ideations Hematologic/ Lymphatic: Denies: Easy Bruising, Easy Bleeding VTE Information - Inpt Only VTE Present on Admission: No VTE Mechan Device Prophylaxis: Knee High MANUELA Hose VTE Pharm Prophylaxis ordered?: Yes - Physical Exam General: Alert, Oriented x3, Cooperative HEENT: Atraumatic, PERRLA, EOMI, Normocephalic Neck: Supple, No JVD, Negative Carotid Bruits Lungs: Clear to auscultation, Normal air movement Cardiovascular: Regular rate, No murmurs Abdomen: Bowel Sounds Present, Soft, Non Tender Extremities: No edema, Capillary Refill Less than 3 Seconds, - - status post right transmetatarsal amputation, bilateral lower extremity dressed with dressing, CONCHIS wraps. Right upper extremity PICC line. Skin: No rashes, No breakdown Musculoskeletal: No Tenderness to Palpation of Joints or Extremities Neurological: Cranial nerves II-XII grossly intact Psych/Mental Status: Normal Affect, Appropriate Vital Signs Temp Pulse Resp BP Pulse Ox 97.2 F L 72 18 174/84 H 97 06/12/17 19:43 06/12/17 19:43 06/12/17 19:43 06/12/17 19:43 06/12/17 19:43 Oxygen Delivery Method Room Air Weight: 153.484 kg Finger Stick Blood Glucose 129 POC Glucose 06/12/17 06/12/17 20:52 17:08 POC Glucose 110 106 Assessment/Plan 62 year old male with below past medical history significant for Diabetes Mellitus II, hospitalized for left foot osteomyelitis, complicated by chest pain, anemia, admitted to TCU with debility, here for rehabilitation, strengthening, intravenous antibiotics, prior to amputation per Dr. Rodriguez. Debility - PT/OT. Pain - Tylenol 1000MG Q8H PRN mild pain, Naproxen 500MG BID, MS Contin 15MG BID, Oxycodone 10MG Q4H PRN moderate pain. Bowel - Miralax 17GM daily, Senna/colace 2 tablets BID, Dulcolax 10MG PO daily PRN. Pneumonia vaccination - Administer Prevnar 13 and/or Pneumovax 23 as necessary. DVT prophylaxis - Lovenox 40MG SC daily. Shortness of breath - Albuterol 2.5MG Q4H PRN. Hyperlipidemia, High intensity Atorvastatin 40MG QHS. Depression - Bupropion XL 150MG daily, Citalopram 40MG daily. Iron deficiency anemia - Ferrex 150MG BID. Neuropathic pain - Gabapentin 800MG 4x/day. Diabetes Mellitus II - Metformin 1000MG BID, Glimepiride 4MG BID, Levemir 100 units BID, Novolog 30 units TIDCM. Hypertension - Losartan 100MG daily, Dyazide 37.5/25MG daily. Nutrition - Glucerna 120ML 4x/day. C. Diff prophylaxis - Lactobacillus 1 tablet 4x/day. Diarrhea - Loperamide 2MG Q2H PRN. Indigestion - Mylanta II 30ML Q6H PRN. Left foot osteomyelitis - Zosyn 3.375GM IV Q8H, Vancomycin 1.75GM IV Q12H, amputation per Dr. Rodriguez in near future.
--- NOTE | 2017-06-12 21:30 | HP.PCM_ITS ---
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 Rodriguez. The patient is a 62 year old Male with below past medical history admitted to [facility] 06/09/[address] foot infection[address] Rodriguez directly admitted patient to hospital. Worsening left foot infection despite VAC dressing, oral Flagyl, IV Vancomycin, IV Rocephin. Intermittent chest pain. IV Vancomycin, IV Zosyn per Infectious Disease. Evaluate chest pain prior to surgery. Wound culture grew S. Aureus, MRSA, Enterococcus. Diarrhea negative for C. Diff, Stool culture negative, maintained on Lactobacillus. Chest pain ruled out for NE. 06/11/2017 Nuclear stress test negative per Dr. Alvarado. Transfused 1 unit PRBC for anemia. 06/12/2017 Admit to TCU for rehabilitation, strengthening, intravenous antibiotics, prior to amputation with Dr. Rodriguez. 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) Obstructive sleep apnea (Chronic) Hyperlipidemia (Chronic) Chronic pain (Chronic) Osteomyelitis (Chronic) Non-pressure chronic ulcer of left heel and midfoot with muscle involvement without evidence of necrosis (Chronic) Infection of left foot (Chronic) Hypersomnia (Chronic) Ulcer of midfoot with necrosis of muscle (Chronic) Nocturnal hypoxemia (Chronic) Abscess of left foot (Chronic) Diabetic ulcer of left foot with fat layer exposed (Chronic) Non-pressure chronic ulcer of left heel and midfoot with fat layer exposed ( Chronic) 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 Venous insufficiency of both lower extremities (Chronic) S/P transmetatarsal amputation of foot (Chronic) 03/04/[address] 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) Hypertension (Chronic) Amputation of right foot with complication (Chronic) Type 2 diabetes mellitus with diabetic polyneuropathy (Chronic) Stasis dermatitis of both legs (Chronic) Sleep apnea (Chronic) CPAP 15 cm H20, 100% compliant Neuropathy (Chronic) secondary to diabetes Morbid obesity (Chronic) Anemia (Chronic) Dyslipidemia (Chronic) Left ventricular hypertrophy (Chronic) Chronic pain syndrome (Chronic) Depression (Chronic) Allergies cefepime Allergy (Verified 03/06/17 09:46) Hives lisinopril Allergy (Verified 03/06/17 09:46) cough sulfamethoxazole [From Septra] Allergy (Verified 03/06/17 09:46) turned red trimethoprim [From Octra] Allergy (Verified 03/06/17 09:46) turned red Home Medications: Ambulatory Orders Medication Instructions Recorded Insulin Detemir [Levemir FlexPen] 100 units SC BID 10/12/14 Citalopram [Celexa] 40 mg PO DAILY 11/15/14 Metformin HCl [Glucophage] 1,000 mg PO BIDCM 11/15/14 Losartan Potassium [Cozaar] 100 mg PO DAILY 06/05/16 buPROPion XL [Wellbutrin Xl] 150 mg PO DAILY 01/21/17 glimepiride 4 mg tablet 4 mg PO BID tab 01/31/17 Insulin Aspart [Novolog Flexpen] 30 units SC TIDCM 03/24/17 Simvastatin 40 mg PO QHS 03/24/17 Triamterene/Hydrochlorothiazid 1 each PO DAILY 03/24/17 [Triamterene-Hctz 37.5-25 mg Cp] Gabapentin [Neurontin] 800 mg PO 4X/DAY 05/28/17 Naproxen [Naprosyn] 500 mg PO BID 05/28/17 Ferrous Sulfate 325 mg PO BIDCM #60 tab 06/04/17 Albuterol Aerosols [Ventolin 2.5 mg INHALATION Q4H PRN PRN 06/09/17 Aerosols] Acetaminophen [Tylenol Tablet] 650 mg PO Q6H PRN PRN tablet 06/12/17 Enoxaparin [Lovenox] 40 mg SC DAILY@1000 syringe 06/12/17 Glucerna Shake 120 ml PO 4X/DAY liquid 06/12/17 Insulin Aspart [Novolog Flexpen] See Protocol SC ACHS flexpen 06/12/17 Lactobacillus Acidophilus 1 tablet PO 4X/DAY tablet 06/12/17 [Acidophilus] Loperamide [Imodium] 2 mg PO Q2H PRN PRN capsule 06/12/17 Mag Hydrox/Al Hydrox/Simeth 30 ml PO Q6H PRN PRN udc 06/12/17 [Mylanta II] Magnesium Hydroxide [Milk Of 30 ml PO DAILY PRN PRN udc 06/12/17 Magnesia] Oxycodone [Oxyir] 10 mg PO Q4H PRN PRN 2 Days #10 tab 06/12/17 Piperacil/Tazobactam [Zosyn] 3.375 gm IV Q8 ml 06/12/17 Vancomycin 1,750 mg IV Q12H #0 vial 06/12/17 morphine SR tablet [Ms Contin] 15 mg PO TID 1 Days #3 tab 06/12/17 Surgical History: - - Debridement left foot ulcer with versajet including necrotic muscle and widespread debridement plantar foot and incision and drainage left foot 01/24/17, Bone biopsy calcaneal cuboid bone left foot and excisional debridement left plantar foot ulceration 10/18/16, Right foot trans metatarsal amputation 03/04/16, Partial 4th toe amputation right foot at PIP joint 12/09/15, Excisional debridement including fascia left great toe 04/03/15, Right hallux amputation at MTP joint 12/29/14, microdiscectomy ?2, deviated septal repair, ulnar nerve repair, cholecystectomy. Psychiatric History: Depression Lives: Longterm Smoking Status: Former smoker Tobacco Use: Non-smoker Alcohol: None Drugs: None - *Family History Maternal History Items: Cancer, Heart Disease Paternal History Items: Heart Disease Review of Systems Constitutional: Denies: Chills, Fever, Weight Change HEENT: Denies: Head Aches, Sinus Congestion, Sinus Drainage Cardiovascular: Denies: Chest Pain, Palpitations Respiratory: Denies: Cough, Shortness of breath at rest, Sputum production Gastrointestinal: Denies: Abdominal Pain, Nausea, Vomiting Genitourinary: Denies: Dysuria Musculoskeletal: Denies: Joint Pain, Joint Tenderness Skin: Denies: Rash, Wounds Neurological: Denies: Numbness, Tingling, Focal weakness Psychiatric: Denies: Anxiety, Depression, Homicidal Ideations, Suicidal Ideations Hematologic/ Lymphatic: Denies: Easy Bruising, Easy Bleeding VTE Information - Inpt Only VTE Present on Admission: No VTE Mechan Device Prophylaxis: Knee High MANUELA Hose VTE Pharm Prophylaxis ordered?: Yes - Physical Exam General: Alert, Oriented x3, Cooperative HEENT: Atraumatic, PERRLA, EOMI, Normocephalic Neck: Supple, No JVD, Negative Carotid Bruits Lungs: Clear to auscultation, Normal air movement Cardiovascular: Regular rate, No murmurs Abdomen: Bowel Sounds Present, Soft, Non Tender Extremities: No edema, Capillary Refill Less than 3 Seconds, - - status post right transmetatarsal amputation, bilateral lower extremity dressed with dressing, CONCHIS wraps. Right upper extremity PICC line. Skin: No rashes, No breakdown Musculoskeletal: No Tenderness to Palpation of Joints or Extremities Neurological: Cranial nerves II-XII grossly intact Psych/Mental Status: Normal Affect, Appropriate Vital Signs Temp Pulse Resp BP Pulse Ox 97.2 F L 72 18 174/84 H 97 06/12/17 19:43 06/12/17 19:43 06/12/17 19:43 06/12/17 19:43 06/12/17 19:43 Oxygen Delivery Method Room Air Weight: 153.484 kg Finger Stick Blood Glucose 129 POC Glucose 06/12/17 06/12/17 20:52 17:08 POC Glucose 110 106 Assessment/Plan 62 year old male with below past medical history significant for Diabetes Mellitus II, hospitalized for left foot osteomyelitis, complicated by chest pain , anemia, admitted to TCU with debility, here for rehabilitation, strengthening , intravenous antibiotics, prior to amputation per Dr. Rodriguez. * Debility - PT/OT. * Pain - Tylenol 1000MG Q8H PRN mild pain, Naproxen 500MG BID, MS Contin 15MG BID, Oxycodone 10MG Q4H PRN moderate pain. * Bowel - Miralax 17GM daily, Senna/colace 2 tablets BID, Dulcolax 10MG PO daily PRN. * Pneumonia vaccination - Administer Prevnar 13 and/or Pneumovax 23 as necessary. * DVT prophylaxis - Lovenox 40MG SC daily. * Shortness of breath - Albuterol 2.5MG Q4H PRN. * Hyperlipidemia, High intensity Atorvastatin 40MG QHS. * Depression - Bupropion XL 150MG daily, Citalopram 40MG daily. * Iron deficiency anemia - Ferrex 150MG BID. * Neuropathic pain - Gabapentin 800MG 4x/day. * Diabetes Mellitus II - Metformin 1000MG BID, Glimepiride 4MG BID, Levemir 100 units BID, Novolog 30 units TIDCM. * Hypertension - Losartan 100MG daily, Dyazide 37.5/25MG daily. * Nutrition - Glucerna 120ML 4x/day. * C. Diff prophylaxis - Lactobacillus 1 tablet 4x/day. * Diarrhea - Loperamide 2MG Q2H PRN. * Indigestion - Mylanta II 30ML Q6H PRN. * Left foot osteomyelitis - Zosyn 3.375GM IV Q8H, Vancomycin 1.75GM IV Q12H, amputation per Dr. Rodriguez in near future.
[2017-06-12] MEDS: Atorvastatin Calcium 40 MG Tablet PO (22:44)
[2017-06-12] MEDS: morphine SR 15 MG Tablet PO (22:50)
[2017-06-12] MEDS: Glucerna Shake 120 ML LIQUID PO (22:50)
[2017-06-13] MEDS: Alteplase 2 MG/2 ML Vial IV (00:11)
[2017-06-13 00:16] LABS: Bedside Glucose 74 mg/dL (70-110)
[2017-06-13 00:19] VITALS: BMI 42.2
[2017-06-13] MEDS: 0.9% NaCl PICC Flush IV ×7 (00:46→21:45)
[2017-06-13] MEDS: 0.9% NaCl IVPB Med Flush (250 mL) 15 ML IV ×3 (00:47→15:57)
[2017-06-13] MEDS: Piperacil/Tazobactam 3.375 GM/50 ML ML IV ×3 (04:28→21:45)
[2017-06-13 04:51] LABS: Bedside Glucose 48 mg/dL (70-110)
[2017-06-13 05:06] LABS: Bedside Glucose 61 mg/dL (70-110)
[2017-06-13] MEDS: Enoxaparin 40 MG/0.4 ML Syringe SC (05:19)
[2017-06-13] MEDS: Triamterene 37.5MG/Hctz 25MG Capsule 1 CAP PO (05:19)
[2017-06-13] MEDS: Citalopram 40 MG TABLET PO (05:19)
[2017-06-13] MEDS: Polyethylene Glycol 3350 17 GM PACKET PO (05:19)
[2017-06-13] MEDS: Losartan Potassium 100 MG Tablet PO (05:19)
[2017-06-13] MEDS: morphine SR 15 MG Tablet PO ×3 (05:20→21:44)
[2017-06-13] MEDS: Naproxen 500 MG Tablet PO ×2 (05:20→18:31)
[2017-06-13] MEDS: buPROPion (XL) 150 MG TABLET.XL PO (05:21)
[2017-06-13] MEDS: Gabapentin 800 MG Tablet PO ×4 (05:21→21:44)
[2017-06-13 05:24] LABS: Anion Gap 7 (5-15); BUN 16 mg/dL (7-18); BUN/Creat Ratio 15.5 RATIO (10-20); Calcium,Total 8.5 mg/dL (8.5-10.1); Chloride 108 mmol/L (98-107); Creatinine, Serum 1.03 mg/dL (0.70-1.30); EST Glomerular Filtration Rate 78 mL/min (>60); Est Glom Filt Rate - Afr Amer 94 mL/min (>60); Estimated Creatinine Clearance 90.01 ml/min; Glucose 58 mg/dL (74-106); Potassium 3.6 mmol/L (3.5-5.1); Sodium Level 141 mmol/L (136-145)
[2017-06-13 05:41] LABS: Bedside Glucose 98 mg/dL (70-110)
[2017-06-13 06:36] LABS: Bedside Glucose 162 mg/dL (70-110)
[2017-06-13 07:19] LABS: Absolute Lymphocyte Count 2.42 X10^3/ul (0.83-4.51); Absolute Neutrophil Count 3.6 X10^3/uL (2.0-7.7); Basophil# 0.03 X10^3/uL; Basophil% 0.4 % (0-1); Eosinophil# 0.38 X10^3/uL; Eosinophils% 5.3 % (0-5); Hematocrit 29.9 % (40-54); Lymphocyte # 2.42 X10^3/ul (4.0); Lymphocyte % 33.6 % (19-41); Mean Corp Hgb Conc 30.1 g/gl (32-36); Mean Corpuscular Hgb 26.2 pg (27.0-32.0); Mean Corpuscular Volume 86.9 fL (80-94); Mean Platelet Vol. 9.3 fl (6.2-12.0); Monocyte# 0.74 X10^3/uL; Monocyte% 10.3 % (0-10); Neutrophil # 3.62 X10^3/uL (2.7-7.7); Neutrophil % 50.1 % (47-70); Platelet Count 417 K/mm3 (150-450); RBC Distribution Width CV 15.8 % (11.6-14.6); RBC Distribution Width SD 47.9 fl (35.1-43.9); Red Blood Count 3.44 M/mm3 (4.6-6.2); White Blood Count 7.2 K/mm3 (4.4-11.0)
[2017-06-13 07:27] LABS: POSITIVE COUNT NO; POSITIVE DIFFERENTIAL NO; POSITIVE MORPHOLOGY NO
[2017-06-13] MEDS: Iron Polysaccharide Complex 150 MG CAPSULE PO ×2 (09:42→18:27)
[2017-06-13] MEDS: metFORMIN HCl 1,000 MG Tablet 1000 MG PO ×2 (09:42→18:27)
[2017-06-13] MEDS: Glimepiride 4 MG Tablet PO ×2 (09:42→18:27)
[2017-06-13] MEDS: oxyCODONE 5 MG Tablet 10 MG PO (09:47)
[2017-06-13] MEDS: Acetaminophen 500 MG Tablet 1000 MG PO (09:47)
[2017-06-13] MEDS: Tuberculin,Purif.prot.deriv. 50 TU/ML Vial 5 ML ID (10:47)
[2017-06-13] MEDS: Mag Hydrox/Al Hydrox/Simeth 30 ML UDC PO (10:47)
[2017-06-13 11:21] LABS: Bedside Glucose 207 mg/dL (70-110)
[2017-06-13] MEDS: Glucerna Shake 120 ML LIQUID PO ×2 (13:08→21:48)
--- NOTE | 2017-06-13 13:39 | CASEMGMT ---
Brief interview for mental status (BIMS) and resident mood interview (PHQ-9) completed on this day. BIMS score 15. PHQ-9 score 07/13
--- NOTE | 2017-06-13 15:06 | NURSING ---
wound photo: left medial foot
--- NOTE | 2017-06-13 15:06 | NURSING ---
wound photo: left plantar foot
[2017-06-13 15:54] VITALS: BP 118/61; PULSE 66; RESP 18; TEMP 36.7; O2SAT 96
[2017-06-13 17:20] LABS: Bedside Glucose 146 mg/dL (70-110)
[2017-06-13 21:01] LABS: Bedside Glucose 192 mg/dL (70-110)
[2017-06-13] MEDS: Atorvastatin Calcium 40 MG Tablet PO (21:46)
[2017-06-14] MEDS: 0.9% NaCl PICC Flush IV ×3 (02:00→12:23)
[2017-06-14] MEDS: Losartan Potassium 100 MG Tablet PO (04:46)
[2017-06-14] MEDS: Triamterene 37.5MG/Hctz 25MG Capsule 1 CAP PO (04:46)
[2017-06-14] MEDS: Naproxen 500 MG Tablet PO ×2 (04:46→17:19)
[2017-06-14] MEDS: Citalopram 40 MG TABLET PO (04:47)
[2017-06-14] MEDS: Enoxaparin 40 MG/0.4 ML Syringe SC (04:47)
[2017-06-14] MEDS: buPROPion (XL) 150 MG TABLET.XL PO (04:48)
[2017-06-14] MEDS: Gabapentin 800 MG Tablet PO ×4 (04:48→22:14)
[2017-06-14] MEDS: Piperacil/Tazobactam 3.375 GM/50 ML ML IV ×3 (04:51→20:40)
[2017-06-14] MEDS: morphine SR 15 MG Tablet PO ×3 (04:51→22:15)
[2017-06-14 06:50] LABS: Bedside Glucose 116 mg/dL (70-110)
--- NOTE | 2017-06-14 07:24 | NURSING ---
Pt remained in precautions this shift. All care was provided in room.
--- NOTE | 2017-06-14 07:56 | NURSING ---
Pt remained in precautions this shift. All care provided in room.
[2017-06-14] MEDS: metFORMIN HCl 1,000 MG Tablet 1000 MG PO ×2 (08:23→17:19)
[2017-06-14] MEDS: Glimepiride 4 MG Tablet PO ×2 (08:25→17:19)
[2017-06-14] MEDS: Iron Polysaccharide Complex 150 MG CAPSULE PO ×2 (08:25→17:19)
[2017-06-14 11:11] LABS: Bedside Glucose 146 mg/dL (70-110)
[2017-06-14] MEDS: Glucerna Shake 120 ML LIQUID PO ×3 (12:17→22:14)
[2017-06-14 15:37] VITALS: BP 157/62; PULSE 70; RESP 18; TEMP 37.3; O2SAT 95
--- NOTE | 2017-06-14 16:39 | NURSING ---
All nursing treatments and therapies performed in room d/t isolation precautions.
[2017-06-14 16:50] LABS: Bedside Glucose 89 mg/dL (70-110)
[2017-06-14 17:20] LABS: Bedside Glucose 116 mg/dL (70-110)
--- NOTE | 2017-06-14 18:16 | NURSING ---
Dr. Fernández notified of blood sugars, insulin adjusted.
[2017-06-14] MEDS: Acetaminophen 500 MG Tablet 1000 MG PO (20:39)
[2017-06-14] MEDS: oxyCODONE 5 MG Tablet 10 MG PO (20:39)
[2017-06-14 21:01] LABS: Bedside Glucose 179 mg/dL (70-110)
[2017-06-14] MEDS: Atorvastatin Calcium 40 MG Tablet PO (22:14)
[2017-06-15] MEDS: Mag Hydrox/Al Hydrox/Simeth 30 ML UDC PO ×2 (04:03→12:37)
[2017-06-15 05:41] LABS: Bedside Glucose 115 mg/dL (70-110)
[2017-06-15] MEDS: Gabapentin 800 MG Tablet PO ×4 (05:49→21:22)
[2017-06-15] MEDS: Citalopram 40 MG TABLET PO (05:50)
[2017-06-15] MEDS: buPROPion (XL) 150 MG TABLET.XL PO (05:50)
[2017-06-15] MEDS: Enoxaparin 40 MG/0.4 ML Syringe SC (05:50)
[2017-06-15] MEDS: Naproxen 500 MG Tablet PO ×2 (05:50→17:25)
[2017-06-15] MEDS: Piperacil/Tazobactam 3.375 GM/50 ML ML IV ×3 (05:50→21:25)
[2017-06-15] MEDS: Losartan Potassium 100 MG Tablet PO (05:50)
[2017-06-15] MEDS: morphine SR 15 MG Tablet PO ×3 (05:50→21:22)
[2017-06-15] MEDS: Triamterene 37.5MG/Hctz 25MG Capsule 1 CAP PO (05:57)
[2017-06-15] MEDS: Glucerna Shake 120 ML LIQUID PO ×4 (05:58→21:22)
[2017-06-15 06:02] VITALS: BP 150/89; PULSE 71
[2017-06-15 06:56] LABS: Bedside Glucose 123 mg/dL (70-110)
[2017-06-15] MEDS: Glimepiride 4 MG Tablet PO ×2 (08:13→17:25)
[2017-06-15] MEDS: metFORMIN HCl 1,000 MG Tablet 1000 MG PO ×2 (08:13→17:25)
[2017-06-15] MEDS: Iron Polysaccharide Complex 150 MG CAPSULE PO ×2 (08:14→17:25)
[2017-06-15] MEDS: Acetaminophen 500 MG Tablet 1000 MG PO (08:29)
[2017-06-15 11:40] LABS: Bedside Glucose 153 mg/dL (70-110)
[2017-06-15] MEDS: oxyCODONE 5 MG Tablet 10 MG PO (13:15)
[2017-06-15 16:00] VITALS: BP 156/76; PULSE 67; RESP 20; TEMP 36.6; O2SAT 95
[2017-06-15 16:30] VITALS: PULSE 82; RESP 18
[2017-06-15 16:36] LABS: Bedside Glucose 121 mg/dL (70-110)
[2017-06-15] MEDS: Loperamide 2 MG Capsule PO (19:40)
--- NOTE | 2017-06-15 19:47 | NURSING ---
Patient given PRN Immodium per request. Patient looking at pictures and showing this nurse his horse and talking about his animals. Patient does have a flat affect. No other needs noted. Will cont to monitor his mood and behavior. Same reported to MARY Hussein day nurse and MARY Alexandre. night nurse.
--- NOTE | 2017-06-15 20:50 | PCA ---
While in room checking patient blood sugar i noticed him to be more quiet then usual. Patient normally very talkative. I asked him if he was feeling ok. Patient stated he has alot on his mind, with his upcoming surgery. Feels like his head is spinning. Started to get teary eyed. Stated he feels like he has no one to talk to. He also said that two of his brothers came in today and one of the brothers said that it's your fault that your in this situation. I asked if he wanted to talk to someone like a pb. He said No. Offered emotional support. Before i left the room I asked patient if he had thoughts of harming himself. Patient said with what? Told patient to call us if he needed anything. Bettie HERNANDEZ notified
[2017-06-15 20:51] LABS: Bedside Glucose 131 mg/dL (70-110)
--- NOTE | 2017-06-15 21:03 | NURSING ---
This nurse has talked to both patient's friend Lolita and Daughter Eun. They are concerned that patient is major depressed. Lolita states that patient told her that he wishes that he would go into surgery and never wake up. Daughter states that patient is more depressed than normal due to pending surgery and problems with taxes and that she is afraid that he may harm himself. This nurse went into patient's room to discuss families concerns and to see if patient has plans of harming himself. Patient states that I don't plan on hurting myself, I just have a lot on my mind. I am worried about how I am going to live after getting my foot amputated. Patient states that daughter always thinks that I need to go to a home and get help. Patient states that I don't care if I am a zombie until surgery. I just want to go to sleep and wake up and have the surgery done so I don't have to think about the surgery. Patient denies any suicidal thoughts and denies any plan of suicide. Patient denies wanting to talk to a counselor. This nurse offered to talk to patient anytime this evening if patient needs to talk to someone. Patient appreciative of this nurses offer and says that if he needs to talk he will let this nurse know. Dr. Fernández called and made aware of this. No orders given. Will continue to monitor and assess the situation. Will check in on patient more frequently this evening. Room camera turned on so patient can be monitored.
[2017-06-15] MEDS: Atorvastatin Calcium 40 MG Tablet PO (21:22)
[2017-06-16] MEDS: Acetaminophen 500 MG Tablet 1000 MG PO (00:19)
[2017-06-16] MEDS: oxyCODONE 5 MG Tablet 10 MG PO (00:20)
[2017-06-16] MEDS: 0.9% NaCl PICC Flush IV ×4 (00:26→21:27)
[2017-06-16] MEDS: Citalopram 40 MG TABLET PO (06:46)
[2017-06-16] MEDS: buPROPion (XL) 150 MG TABLET.XL PO (06:46)
[2017-06-16] MEDS: Losartan Potassium 100 MG Tablet PO (06:46)
[2017-06-16] MEDS: Triamterene 37.5MG/Hctz 25MG Capsule 1 CAP PO (06:46)
[2017-06-16] MEDS: Piperacil/Tazobactam 3.375 GM/50 ML ML IV ×3 (06:46→21:27)
[2017-06-16] MEDS: Naproxen 500 MG Tablet PO ×2 (06:46→18:21)
[2017-06-16] MEDS: Gabapentin 800 MG Tablet PO ×4 (06:47→21:27)
[2017-06-16] MEDS: Enoxaparin 40 MG/0.4 ML Syringe SC (06:48)
[2017-06-16] MEDS: morphine SR 15 MG Tablet PO ×3 (06:53→21:27)
[2017-06-16 06:56] LABS: Bedside Glucose 137 mg/dL (70-110)
[2017-06-16] MEDS: Glucerna Shake 120 ML LIQUID PO ×3 (07:07→18:24)
[2017-06-16] MEDS: Iron Polysaccharide Complex 150 MG CAPSULE PO ×2 (08:01→18:21)
[2017-06-16] MEDS: metFORMIN HCl 1,000 MG Tablet 1000 MG PO ×2 (08:01→18:20)
[2017-06-16] MEDS: Glimepiride 4 MG Tablet PO ×2 (08:01→18:21)
--- NOTE | 2017-06-16 10:29 | NURSING ---
pt remains in isolation, all therapy and treatments done in room
[2017-06-16 11:35] LABS: Bedside Glucose 167 mg/dL (70-110)
[2017-06-16] MEDS: 0.9% NaCl IVPB Med Flush (250 mL) 15 ML IV (11:47)
--- NOTE | 2017-06-16 11:48 | PCM.PN.ID ---
Subjective: Feeling ok, leg less swollen, still some diarrhea, no fever. - Physical Exam General: Alert Lungs: Clear to auscultation, Normal air movement Cardiovascular: Regular rate, Regular Rhythm Abdomen: Soft, Non Tender, Non-Distended Extremities: Edema Skin: Ulcer/ Wound - reviewed photos Vital Signs Temp Pulse Resp BP Pulse Ox 97.9 F 82 18 156/76 H 95 06/15/17 16:00 06/15/17 16:30 06/15/17 16:30 06/15/17 16:00 06/15/17 16:00 Oxygen Delivery Method Room Air Weight: 153.314 kg Body Mass Index (BMI) 42.2 Finger Stick Blood Glucose 129 Intake and Output for Last 24 Hours 06/14/17 06/15/17 06/16/17 23:59 23:59 23:59 Intake Total 1080 / 1080 810 / 810 340 / 340 Output Total 900 / 900 1700 / 1700 2024 / 2024 Balance 180 / 180 -890 / -890 -1685 / -1685 POC Glucose 06/16/17 06/16/17 06/15/17 11:32 06:25 20:40 POC Glucose 167 H 137 H 131 H 06/15/17 16:29 POC Glucose 121 H Medical Necessity - Tobacco Use Smoking Status: Former smoker Tobacco Use: Non-smoker Route of nutrition/ use of supplements: [] Nutritional Intake: [] IV Site: [] Tam Catheter: [] - Assessment/Plan Antibiotics: [] Assessment/Plan: [] L foot osteo - worsened while on iv abx at [facility]. Recommend source control with BKA. Cont vanc/zosyn. Leg improving. Cx with MRSA and VRE now. Cont zosyn, will change vanc to dapto. diarrhea - cdiff neg, now improved Will follow
[2017-06-16 12:10] VITALS: RESP 18
--- NOTE | 2017-06-16 13:00 | PCM.PN.RX ---
<Jacques Tam D - Last Filed: 06/16/17 13:00> Progress Note - Pharmacy Subjective: TCU Admission Objective: Allergies cefepime Allergy (Verified 03/06/17 09:46) Hives lisinopril Allergy (Verified 03/06/17 09:46) cough sulfamethoxazole [From ] Allergy (Verified 03/06/17 09:46) turned red trimethoprim [From ] Allergy (Verified 03/06/17 09:46) turned red Home Medications Medication Instructions Recorded Insulin Detemir [Levemir FlexPen] 100 units SC BID 10/12/14 Citalopram [Celexa] 40 mg PO DAILY 11/15/14 Metformin HCl [Glucophage] 1,000 mg PO BIDCM 11/15/14 Losartan Potassium [Cozaar] 100 mg PO DAILY 06/05/16 buPROPion XL [Wellbutrin Xl] 150 mg PO DAILY 01/21/17 glimepiride 4 mg tablet 4 mg PO BID tab 01/31/17 Insulin Aspart [Novolog Flexpen] 30 units SC TIDCM 03/24/17 Simvastatin 40 mg PO QHS 03/24/17 Triamterene/Hydrochlorothiazid 1 each PO DAILY 03/24/17 [Triamterene-Hctz 37.5-25 mg Cp] Gabapentin [Neurontin] 800 mg PO 4X/DAY 05/28/17 Naproxen [Naprosyn] 500 mg PO BID 05/28/17 Ferrous Sulfate 325 mg PO BIDCM #60 tab 06/04/17 Albuterol Aerosols [Ventolin 2.5 mg INHALATION Q4H PRN PRN 06/09/17 Aerosols] Acetaminophen [Tylenol Tablet] 650 mg PO Q6H PRN PRN tablet 06/12/17 Enoxaparin [Lovenox] 40 mg SC DAILY@1000 syringe 06/12/17 Glucerna Shake 120 ml PO 4X/DAY liquid 06/12/17 Insulin Aspart [Novolog Flexpen] See Protocol SC ACHS flexpen 06/12/17 Lactobacillus Acidophilus 1 tablet PO 4X/DAY tablet 06/12/17 [Acidophilus] Loperamide [Imodium] 2 mg PO Q2H PRN PRN capsule 06/12/17 Mag Hydrox/Al Hydrox/Simeth 30 ml PO Q6H PRN PRN udc 06/12/17 [Mylanta II] Magnesium Hydroxide [Milk Of 30 ml PO DAILY PRN PRN udc 06/12/17 Magnesia] Oxycodone [Oxyir] 10 mg PO Q4H PRN PRN 2 Days #10 tab 06/12/17 Piperacil/Tazobactam [Zosyn] 3.375 gm IV Q8 ml 06/12/17 Vancomycin 1,750 mg IV Q12H #0 vial 06/12/17 morphine SR tablet [Ms Contin] 15 mg PO TID 1 Days #3 tab 06/12/17 Current Medications Generic Name Dose Route Start Last Admin Trade Name Freq PRN Reason Stop Dose Admin Acetaminophen 1,000 mg 06/12/17 21:47 06/16/17 00:19 Tylenol PO 1,000 mg Q8H PRN PRN Administration MILD PAIN (1-04/26) Al Hydroxide/Mg Hydroxide 30 ml 06/12/17 17:28 06/15/17 12:37 Mylanta Ii PO 30 ml Q6H PRN PRN Administration Gastric burning Albuterol Sulfate 2.5 mg 06/12/17 17:28 Ventolin Aerosols INHALATION Q4H PRN PRN sob/ wheezing Atorvastatin Calcium 40 mg 06/12/17 22:00 06/15/17 21:22 Lipitor PO 40 mg QHS SWATI Administration Bisacodyl 10 mg 06/12/17 21:46 Dulcolax PO DAILY PRN Constipation Bupropion HCl 150 mg 06/13/17 06:00 06/16/17 06:46 Wellbutrin Xl PO 150 mg DAILY SWATI Administration Citalopram Hydrobromide 40 mg 06/13/17 06:00 06/16/17 06:46 Celexa PO 40 mg DAILY SWATI Administration Enoxaparin Sodium 40 mg 06/13/17 06:00 06/16/17 06:48 Lovenox SC 40 mg DAILY@0600 SWATI Administration Gabapentin 800 mg 06/12/17 22:00 06/16/17 11:51 Neurontin PO 800 mg 4X/DAY SWATI Administration Glimepiride 4 mg 06/13/17 08:00 06/16/17 08:01 Amaryl PO 4 mg BIDCM SWATI Administration Heparin Sodium (Beef Lung) 500 unit 06/12/17 22:41 Heparin 500 Unit/5 Ml (100/Ml) IV UD PRN HEPARIN FLUSH Piperacillin Sod/Tazobactam Sod 3.375 gm in 50 mls @ 12.5 mls/hr 06/12/17 22:00 06/16/17 06:46 Zosyn IV 12.5 mls/hr Q8 SWATI Administration Sodium Chloride 250 mls @ 15 mls/hr 06/12/17 22:41 06/16/17 11:47 IV 15 mls/hr .[id number] PRN Administration SALINE FLUSH Daptomycin 1,000 mg/ Sodium 70 mls @ 100 mls/hr 06/16/17 11:00 06/16/17 11:47 Chloride IV 100 mls/hr Q24 SWATI Administration Insulin Aspart 15 units 06/15/17 06:45 06/16/17 11:51 Novolog Flexpen ([facility]) SC 15 units TIDAC SWATI Administration Insulin Detemir 100 units 06/12/17 18:00 06/16/17 07:04 Levemir ([facility]) SC 100 u BID SWATI Administration Lactobacillus Acidophilus 1 tablet 06/12/17 22:00 06/16/17 11:51 Acidophilus PO 1 tablet 4X/DAY SWATI Administration Loperamide HCl 2 mg 06/12/17 17:28 06/15/17 19:40 Imodium PO 2 mg Q2H PRN PRN Administration LOOSE STOOLS Losartan Potassium 100 mg 06/13/17 06:00 06/16/17 06:46 Cozaar PO 100 mg DAILY SWATI Administration Metformin HCl 1,000 mg 06/13/17 08:00 06/16/17 08:01 Glucophage PO 1,000 mg BIDCM SWATI Administration Morphine Sulfate 15 mg 06/12/17 22:00 06/16/17 06:53 Ms Contin PO 15 mg TID SWATI Administration Naproxen 500 mg 06/12/17 18:00 06/16/17 06:46 Naprosyn PO 500 mg BID SWATI Administration Nutritional Formula (Lactose Free) 120 ml 06/12/17 22:00 06/16/17 11:51 Glucerna Shake PO 120 ml 4X/DAY SWATI Administration Oxycodone HCl 10 mg 06/12/17 17:28 06/16/17 00:20 Oxyir PO 10 mg Q4H PRN PRN Administration Moderate Pain (pain scale 4-5) Polyethylene Glycol 17 gm 06/13/17 06:00 06/16/17 07:00 Miralax PO Not Given DAILY [facility] Polysaccharide Iron Complex 150 mg 06/13/17 08:00 06/16/17 08:01 Ferrex 150 PO 150 mg BIDCM SWATI Administration Senna/Docusate Sodium 2 tablet 06/12/17 18:00 06/16/17 07:00 Senokot-S, Yael-Colace PO Not Given BID SWATI Sodium Chloride 10 - 20 ml 06/12/17 22:41 06/16/17 11:47 IV 20 ml UD PRN Administration PICC FLUSH Triamterene/HCTZ 1 cap 06/13/17 06:00 06/16/17 06:46 Dyazide (G) PO 1 cap DAILY SWATI Administration Tuberculin PPD 5 tu 06/20/17 10:00 Tubersol, Aplisol, Ppd ID 06/20/17 10:01 X1 ONE Problem List (Last Reviewed 03/06/17 @ 09:46 by Renuka Key) Obstructive sleep apnea (Chronic) Hyperlipidemia (Chronic) Chronic pain (Chronic) Vital Signs Temp Pulse Resp BP Pulse Ox 97.9 F 82 18 156/76 H 95 06/15/17 16:00 06/15/17 16:30 06/16/17 12:10 06/15/17 16:00 06/15/17 16:00 Oxygen Delivery Method Room Air Weight: 153.314 kg Body Mass Index (BMI) 42.2 Finger Stick Blood Glucose 129 Sodium 141 mmol/L (136-145) 06/13/17 05:55 Potassium 3.6 mmol/L (3.5-5.1) 06/13/17 05:55 Chloride 108 mmol/L (98-107) H 06/13/17 05:55 Carbon Dioxide 26.0 mmol/L (21.0-32.0) 06/13/17 05:55 Anion Gap 7 (5-15) 06/13/17 05:55 BUN 16 mg/dL (7-18) 06/13/17 05:55 Creatinine 1.03 mg/dL (0.70-1.30) 06/13/17 05:55 Est GFR (MDRD) Af Amer 94 mL/min (>60) 06/13/17 05:55 Est GFR (MDRD) Non-Af 78 mL/min (>60) 06/13/17 05:55 BUN/Creatinine Ratio 15.5 RATIO (10-20) 06/13/17 05:55 Glucose 58 mg/dL (74-106) L 06/13/17 05:55 Vancomycin Trough 19.0 ug/mL (5.0-15.0) H 06/14/17 11:25 Assessment/Plan: 1) Pain APAP for mild pain, oxycodone for moderate pain, naproxen, ms contin, gabapentin. Continue to monitor daily pain scores, prn medication use. 2) HTN Triamterene/HCTZ, losartan. Avg BP not within goal range, HR within goal range, K wnl, BUN/SCr at baseline. Continue to monitor BP/HR electrolytes, renal function. * 3) DM2 Metformin, insulin detemir twice daily, insulin aspart with meals, glimepiride. * Patient maintained on insulin, consider d/c glimepiride for lack of additional benefit. 4) ID Daptomycin, piperacillin/tazobactam. ID following. Continue to monitor s/s infection. 5) HLD Atorvastatin at HS. Continue to monitor lipids. 6) GI Maalox as needed lactobacillus. Continue to monitor prn medication use, for s/s GI distress. 7) Nutrition Fe, Glucerna. Continue to monitor clinically. 8) DVT PPx Enoxaparin daily. Continue to monitor s/s bleeding/clot. Psychotropic Medications: 9) Depression Citalopram, bupropion. Continue to monitor s/s depression. Unnecessary Medications: None Bowel Regimen: 10) Senna/s, PEG, prn bisacodyl, loperamide prn for diarrhea. Continue to monitor prn medication use, for constipation/diarrhea. Date of Note:: 06/16/17 - Provider Comments Provider responsibility: Provider responsible to enter orders to implement recommendations <Bharath Fernández Chi - Last Filed: 06/16/17 17:59> Progress Note - Pharmacy Subjective: [] Objective: Allergies cefepime Allergy (Verified 03/06/17 09:46) Hives lisinopril Allergy (Verified 03/06/17 09:46) cough sulfamethoxazole [From Septra] Allergy (Verified 03/06/17 09:46) turned red trimethoprim [From Septra] Allergy (Verified 03/06/17 09:46) turned red Home Medications Medication Instructions Recorded Insulin Detemir [Levemir FlexPen] 100 units SC BID 10/12/14 Citalopram [Celexa] 40 mg PO DAILY 11/15/14 Metformin HCl [Glucophage] 1,000 mg PO BIDCM 11/15/14 Losartan Potassium [Cozaar] 100 mg PO DAILY 06/05/16 buPROPion XL [Wellbutrin Xl] 150 mg PO DAILY 01/21/17 glimepiride 4 mg tablet 4 mg PO BID tab 01/31/17 Insulin Aspart [Novolog Flexpen] 30 units SC TIDCM 03/24/17 Simvastatin 40 mg PO QHS 03/24/17 Triamterene/Hydrochlorothiazid 1 each PO DAILY 03/24/17 [Triamterene-Hctz 37.5-25 mg Cp] Gabapentin [Neurontin] 800 mg PO 4X/DAY 05/28/17 Naproxen [Naprosyn] 500 mg PO BID 05/28/17 Ferrous Sulfate 325 mg PO BIDCM #60 tab 06/04/17 Albuterol Aerosols [Ventolin 2.5 mg INHALATION Q4H PRN PRN 06/09/17 Aerosols] Acetaminophen [Tylenol Tablet] 650 mg PO Q6H PRN PRN tablet 06/12/17 Enoxaparin [Lovenox] 40 mg SC DAILY@1000 syringe 06/12/17 Glucerna Shake 120 ml PO 4X/DAY liquid 06/12/17 Insulin Aspart [Novolog Flexpen] See Protocol SC ACHS flexpen 06/12/17 Lactobacillus Acidophilus 1 tablet PO 4X/DAY tablet 06/12/17 [Acidophilus] Loperamide [Imodium] 2 mg PO Q2H PRN PRN capsule 06/12/17 Mag Hydrox/Al Hydrox/Simeth 30 ml PO Q6H PRN PRN udc 06/12/17 [Mylanta II] Magnesium Hydroxide [Milk Of 30 ml PO DAILY PRN PRN udc 06/12/17 Magnesia] Oxycodone [Oxyir] 10 mg PO Q4H PRN PRN 2 Days #10 tab 06/12/17 Piperacil/Tazobactam [Zosyn] 3.375 gm IV Q8 ml 06/12/17 Vancomycin 1,750 mg IV Q12H #0 vial 06/12/17 morphine SR tablet [Ms Contin] 15 mg PO TID 1 Days #3 tab 06/12/17 Current Medications Generic Name Dose Route Start Last Admin Trade Name Freq PRN Reason Stop Dose Admin Acetaminophen 1,000 mg 06/12/17 21:47 06/16/17 00:19 Tylenol PO 1,000 mg Q8H PRN PRN Administration MILD PAIN (1-04/26) Al Hydroxide/Mg Hydroxide 30 ml 06/12/17 17:28 06/15/17 12:37 Mylanta Ii PO 30 ml Q6H PRN PRN Administration Gastric burning Albuterol Sulfate 2.5 mg 06/12/17 17:28 Ventolin Aerosols INHALATION Q4H PRN PRN sob/ wheezing Atorvastatin Calcium 40 mg 06/12/17 22:00 06/15/17 21:22 Lipitor PO 40 mg QHS SWATI Administration Bisacodyl 10 mg 06/12/17 21:46 Dulcolax PO DAILY PRN Constipation Bupropion HCl 150 mg 06/13/17 06:00 06/16/17 06:46 Wellbutrin Xl PO 150 mg DAILY SWATI Administration Citalopram Hydrobromide 40 mg 06/13/17 06:00 06/16/17 06:46 Celexa PO 40 mg DAILY SWATI Administration Enoxaparin Sodium 40 mg 06/13/17 06:00 06/16/17 06:48 Lovenox SC 40 mg DAILY@0600 SWATI Administration Gabapentin 800 mg 06/12/17 22:00 06/16/17 11:51 Neurontin PO 800 mg 4X/DAY SWATI Administration Glimepiride 4 mg 06/13/17 08:00 06/16/17 08:01 Amaryl PO 4 mg BIDCM SWATI Administration Heparin Sodium (Beef Lung) 500 unit 06/12/17 22:41 Heparin 500 Unit/5 Ml (100/Ml) IV UD PRN HEPARIN FLUSH Piperacillin Sod/Tazobactam Sod 3.375 gm in 50 mls @ 12.5 mls/hr 06/12/17 22:00 06/16/17 14:25 Zosyn IV 12.5 mls/hr Q8 SWATI Administration Sodium Chloride 250 mls @ 15 mls/hr 06/12/17 22:41 06/16/17 11:47 IV 15 mls/hr .[id number] PRN Administration SALINE FLUSH Daptomycin 1,000 mg/ Sodium 70 mls @ 100 mls/hr 06/16/17 11:00 06/16/17 11:47 Chloride IV 100 mls/hr Q24 SWATI Administration Insulin Aspart 15 units 06/15/17 06:45 06/16/17 11:51 Novolog Flexpen ([facility]) SC 15 units TIDAC [facility] Administration Insulin Detemir 100 units 06/12/17 18:00 06/16/17 07:04 Levemir ([facility]) SC 100 u BID [facility] Administration Lactobacillus Acidophilus 1 tablet 06/12/17 22:00 06/16/17 11:51 Acidophilus PO 1 tablet 4X/DAY SWATI Administration Loperamide HCl 2 mg 06/12/17 17:28 06/15/17 19:40 Imodium PO 2 mg Q2H PRN PRN Administration LOOSE STOOLS Losartan Potassium 100 mg 06/13/17 06:00 06/16/17 06:46 Cozaar PO 100 mg DAILY [facility] Administration Metformin HCl 1,000 mg 06/13/17 08:00 06/16/17 08:01 Glucophage PO 1,000 mg BIDCM [facility] Administration Morphine Sulfate 15 mg 06/12/17 22:00 06/16/17 13:28 Ms Contin PO 15 mg TID [facility] Administration Naproxen 500 mg 06/12/17 18:00 06/16/17 06:46 Naprosyn PO 500 mg BID [facility] Administration Nutritional Formula (Lactose Free) 120 ml 06/12/17 22:00 06/16/17 11:51 Glucerna Shake PO 120 ml 4X/DAY [facility] Administration Oxycodone HCl 10 mg 06/12/17 17:28 06/16/17 00:20 Oxyir PO 10 mg Q4H PRN PRN Administration Moderate Pain (pain scale 4-5) Polyethylene Glycol 17 gm 06/13/17 06:00 06/16/17 07:00 Miralax PO Not Given DAILY [facility] Polysaccharide Iron Complex 150 mg 06/13/17 08:00 06/16/17 08:01 Ferrex 150 PO 150 mg BIDCM [facility] Administration Senna/Docusate Sodium 2 tablet 06/12/17 18:00 06/16/17 07:00 Senokot-S, Yael-Colace PO Not Given BID SWATI Sodium Chloride 10 - 20 ml 06/12/17 22:41 06/16/17 14:26 IV 20 ml UD PRN Administration PICC FLUSH Triamterene/HCTZ 1 cap 06/13/17 06:00 06/16/17 06:46 Dyazide (G) PO 1 cap DAILY SWATI Administration Tuberculin PPD 5 tu 06/20/17 10:00 Tubersol, Aplisol, Ppd ID 06/20/17 10:01 X1 ONE Problem List (Last Reviewed 03/06/17 @ 09:46 by Renuka Key) Obstructive sleep apnea (Chronic) Hyperlipidemia (Chronic) Chronic pain (Chronic) Vital Signs Temp Pulse Resp BP Pulse Ox 98.3 F 74 18 151/65 H 93 06/16/17 16:00 06/16/17 16:00 06/16/17 16:00 06/16/17 16:00 06/16/17 16:00 Oxygen Delivery Method Room Air Weight: 153.314 kg Body Mass Index (BMI) 42.2 Finger Stick Blood Glucose 129 Sodium 141 mmol/L (136-145) 06/13/17 05:55 Potassium 3.6 mmol/L (3.5-5.1) 06/13/17 05:55 Chloride 108 mmol/L (98-107) H 06/13/17 05:55 Carbon Dioxide 26.0 mmol/L (21.0-32.0) 06/13/17 05:55 Anion Gap 7 (5-15) 06/13/17 05:55 BUN 16 mg/dL (7-18) 06/13/17 05:55 Creatinine 1.03 mg/dL (0.70-1.30) 06/13/17 05:55 Est GFR (MDRD) Af Amer 94 mL/min (>60) 06/13/17 05:55 Est GFR (MDRD) Non-Af 78 mL/min (>60) 06/13/17 05:55 BUN/Creatinine Ratio 15.5 RATIO (10-20) 06/13/17 05:55 Glucose 58 mg/dL (74-106) L 06/13/17 05:55 Vancomycin Trough 19.0 ug/mL (5.0-15.0) H 06/14/17 11:25 Assessment/Plan: Psychotropic Medications: Unnecessary Medications: Bowel Regimen: - Provider Comments Provider responsibility: Provider responsible to enter orders to implement recommendations Provider Comments to Recommendations by Pharmacy: Agree
--- NOTE | 2017-06-16 13:14 | PHA.CONS_ITS ---
<Jacques Tam D - Last Filed: 06/16/17 13:00> Progress Note - Pharmacy Subjective: TCU Admission Objective: Allergies cefepime Allergy (Verified 03/06/17 09:46) Hives lisinopril Allergy (Verified 03/06/17 09:46) cough sulfamethoxazole [From ] Allergy (Verified 03/06/17 09:46) turned red trimethoprim [From ] Allergy (Verified 03/06/17 09:46) turned red Home Medications Medication Instructions Recorded Insulin Detemir [Levemir FlexPen] 100 units SC BID 10/12/14 Citalopram [Celexa] 40 mg PO DAILY 11/15/14 Metformin HCl [Glucophage] 1,000 mg PO BIDCM 11/15/14 Losartan Potassium [Cozaar] 100 mg PO DAILY 06/05/16 buPROPion XL [Wellbutrin Xl] 150 mg PO DAILY 01/21/17 glimepiride 4 mg tablet 4 mg PO BID tab 01/31/17 Insulin Aspart [Novolog Flexpen] 30 units SC TIDCM 03/24/17 Simvastatin 40 mg PO QHS 03/24/17 Triamterene/Hydrochlorothiazid 1 each PO DAILY 03/24/17 [Triamterene-Hctz 37.5-25 mg Cp] Gabapentin [Neurontin] 800 mg PO 4X/DAY 05/28/17 Naproxen [Naprosyn] 500 mg PO BID 05/28/17 Ferrous Sulfate 325 mg PO BIDCM #60 tab 06/04/17 Albuterol Aerosols [Ventolin 2.5 mg INHALATION Q4H PRN PRN 06/09/17 Aerosols] Acetaminophen [Tylenol Tablet] 650 mg PO Q6H PRN PRN tablet 06/12/17 Enoxaparin [Lovenox] 40 mg SC DAILY@1000 syringe 06/12/17 Glucerna Shake 120 ml PO 4X/DAY liquid 06/12/17 Insulin Aspart [Novolog Flexpen] See Protocol SC ACHS flexpen 06/12/17 Lactobacillus Acidophilus 1 tablet PO 4X/DAY tablet 06/12/17 [Acidophilus] Loperamide [Imodium] 2 mg PO Q2H PRN PRN capsule 06/12/17 Mag Hydrox/Al Hydrox/Simeth 30 ml PO Q6H PRN PRN udc 06/12/17 [Mylanta II] Magnesium Hydroxide [Milk Of 30 ml PO DAILY PRN PRN udc 06/12/17 Magnesia] Oxycodone [Oxyir] 10 mg PO Q4H PRN PRN 2 Days #10 tab 06/12/17 Piperacil/Tazobactam [Zosyn] 3.375 gm IV Q8 ml 06/12/17 Vancomycin 1,750 mg IV Q12H #0 vial 06/12/17 morphine SR tablet [Ms Contin] 15 mg PO TID 1 Days #3 tab 06/12/17 Current Medications Generic Name Dose Route Start Last Admin Trade Name Freq PRN Reason Stop Dose Admin Acetaminophen 1,000 mg 06/12/17 21:47 06/16/17 00:19 Tylenol PO 1,000 mg Q8H PRN PRN Administration MILD PAIN (1-04/26) Al Hydroxide/Mg Hydroxide 30 ml 06/12/17 17:28 06/15/17 12:37 Mylanta Ii PO 30 ml Q6H PRN PRN Administration Gastric burning Albuterol Sulfate 2.5 mg 06/12/17 17:28 Ventolin Aerosols INHALATION Q4H PRN PRN sob/ wheezing Atorvastatin Calcium 40 mg 06/12/17 22:00 06/15/17 21:22 Lipitor PO 40 mg QHS SWATI Administration Bisacodyl 10 mg 06/12/17 21:46 Dulcolax PO DAILY PRN Constipation Bupropion HCl 150 mg 06/13/17 06:00 06/16/17 06:46 Wellbutrin Xl PO 150 mg DAILY SWATI Administration Citalopram Hydrobromide 40 mg 06/13/17 06:00 06/16/17 06:46 Celexa PO 40 mg DAILY SWATI Administration Enoxaparin Sodium 40 mg 06/13/17 06:00 06/16/17 06:48 Lovenox SC 40 mg DAILY@0600 SWATI Administration Gabapentin 800 mg 06/12/17 22:00 06/16/17 11:51 Neurontin PO 800 mg 4X/DAY SWATI Administration Glimepiride 4 mg 06/13/17 08:00 06/16/17 08:01 Amaryl PO 4 mg BIDCM SWATI Administration Heparin Sodium (Beef Lung) 500 unit 06/12/17 22:41 Heparin 500 Unit/5 Ml (100/Ml) IV UD PRN HEPARIN FLUSH Piperacillin Sod/Tazobactam Sod 3.375 gm in 50 mls @ 12.5 mls/hr 06/12/17 22: 00 06/16/17 06:46 Zosyn IV 12.5 mls/hr Q8 SWATI Administration Sodium Chloride 250 mls @ 15 mls/hr 06/12/17 22:41 06/16/17 11:47 IV 15 mls/hr .[id number] PRN Administration SALINE FLUSH Daptomycin 1,000 mg/ Sodium 70 mls @ 100 mls/hr 06/16/17 11:00 06/16/17 11:47 Chloride IV 100 mls/hr Q24 SWATI Administration Insulin Aspart 15 units 06/15/17 06:45 06/16/17 11:51 Novolog Flexpen ([facility]) SC 15 units TIDAC SWATI Administration Insulin Detemir 100 units 06/12/17 18:00 06/16/17 07:04 Levemir ([facility]) SC 100 u BID SWATI Administration Lactobacillus Acidophilus 1 tablet 06/12/17 22:00 06/16/17 11:51 Acidophilus PO 1 tablet 4X/DAY SWATI Administration Loperamide HCl 2 mg 06/12/17 17:28 06/15/17 19:40 Imodium PO 2 mg Q2H PRN PRN Administration LOOSE STOOLS Losartan Potassium 100 mg 06/13/17 06:00 06/16/17 06:46 Cozaar PO 100 mg DAILY SWATI Administration Metformin HCl 1,000 mg 06/13/17 08:00 06/16/17 08:01 Glucophage PO 1,000 mg BIDCM SWATI Administration Morphine Sulfate 15 mg 06/12/17 22:00 06/16/17 06:53 Ms Contin PO 15 mg TID SWATI Administration Naproxen 500 mg 06/12/17 18:00 06/16/17 06:46 Naprosyn PO 500 mg BID SWATI Administration Nutritional Formula (Lactose Free) 120 ml 06/12/17 22:00 06/16/17 11:51 Glucerna Shake PO 120 ml 4X/DAY SWATI Administration Oxycodone HCl 10 mg 06/12/17 17:28 06/16/17 00:20 Oxyir PO 10 mg Q4H PRN PRN Administration Moderate Pain (pain scale 4-5) Polyethylene Glycol 17 gm 06/13/17 06:00 06/16/17 07:00 Miralax PO Not Given DAILY [facility] Polysaccharide Iron Complex 150 mg 06/13/17 08:00 06/16/17 08:01 Ferrex 150 PO 150 mg BIDCM SWATI Administration Senna/Docusate Sodium 2 tablet 06/12/17 18:00 06/16/17 07:00 Senokot-S, Yael-Colace PO Not Given BID SWATI Sodium Chloride 10 - 20 ml 06/12/17 22:41 06/16/17 11:47 IV 20 ml UD PRN Administration PICC FLUSH Triamterene/HCTZ 1 cap 06/13/17 06:00 06/16/17 06:46 Dyazide (G) PO 1 cap DAILY SWATI Administration Tuberculin PPD 5 tu 06/20/17 10:00 Tubersol, Aplisol, Ppd ID 06/20/17 10:01 X1 ONE Problem List (Last Reviewed 03/06/17 @ 09:46 by Renuka Key) Obstructive sleep apnea (Chronic) Hyperlipidemia (Chronic) Chronic pain (Chronic) Vital Signs Temp Pulse Resp BP Pulse Ox 97.9 F 82 18 156/76 H 95 06/15/17 16:00 06/15/17 16:30 06/16/17 12:10 06/15/17 16:00 06/15/17 16:00 Oxygen Delivery Method Room Air Weight: 153.314 kg Body Mass Index (BMI) 42.2 Finger Stick Blood Glucose 129 Sodium 141 mmol/L (136-145) 06/13/17 05:55 Potassium 3.6 mmol/L (3.5-5.1) 06/13/17 05:55 Chloride 108 mmol/L (98-107) H 06/13/17 05:55 Carbon Dioxide 26.0 mmol/L (21.0-32.0) 06/13/17 05:55 Anion Gap 7 (5-15) 06/13/17 05:55 BUN 16 mg/dL (7-18) 06/13/17 05:55 Creatinine 1.03 mg/dL (0.70-1.30) 06/13/17 05:55 Est GFR (MDRD) Af Amer 94 mL/min (>60) 06/13/17 05:55 Est GFR (MDRD) Non-Af 78 mL/min (>60) 06/13/17 05:55 BUN/Creatinine Ratio 15.5 RATIO (10-20) 06/13/17 05:55 Glucose 58 mg/dL (74-106) L 06/13/17 05:55 Vancomycin Trough 19.0 ug/mL (5.0-15.0) H 06/14/17 11:25 Assessment/Plan: 1) Pain APAP for mild pain, oxycodone for moderate pain, naproxen, ms contin, gabapentin. Continue to monitor daily pain scores, prn medication use. 2) HTN Triamterene/HCTZ, losartan. Avg BP not within goal range, HR within goal range, K wnl, BUN/SCr at baseline. Continue to monitor BP/HR electrolytes, renal function. * 3) DM2 Metformin, insulin detemir twice daily, insulin aspart with meals, glimepiride. * Patient maintained on insulin, consider d/c glimepiride for lack of additional benefit. 4) ID Daptomycin, piperacillin/tazobactam. ID following. Continue to monitor s/s infection. 5) HLD Atorvastatin at HS. Continue to monitor lipids. 6) GI Maalox as needed lactobacillus. Continue to monitor prn medication use, for s /s GI distress. 7) Nutrition Fe, Glucerna. Continue to monitor clinically. 8) DVT PPx Enoxaparin daily. Continue to monitor s/s bleeding/clot. Psychotropic Medications: 9) Depression Citalopram, bupropion. Continue to monitor s/s depression. Unnecessary Medications: None Bowel Regimen: 10) Senna/s, PEG, prn bisacodyl, loperamide prn for diarrhea. Continue to monitor prn medication use, for constipation/diarrhea. Date of Note:: 06/16/17 - Provider Comments Provider responsibility: Provider responsible to enter orders to implement recommendations <Bharath Fernández Chi - Last Filed: 06/16/17 17:59> Progress Note - Pharmacy Subjective: [] Objective: Allergies cefepime Allergy (Verified 03/06/17 09:46) Hives lisinopril Allergy (Verified 03/06/17 09:46) cough sulfamethoxazole [From Septra] Allergy (Verified 03/06/17 09:46) turned red trimethoprim [From Septra] Allergy (Verified 03/06/17 09:46) turned red Home Medications Medication Instructions Recorded Insulin Detemir [Levemir FlexPen] 100 units SC BID 10/12/14 Citalopram [Celexa] 40 mg PO DAILY 11/15/14 Metformin HCl [Glucophage] 1,000 mg PO BIDCM 11/15/14 Losartan Potassium [Cozaar] 100 mg PO DAILY 06/05/16 buPROPion XL [Wellbutrin Xl] 150 mg PO DAILY 01/21/17 glimepiride 4 mg tablet 4 mg PO BID tab 01/31/17 Insulin Aspart [Novolog Flexpen] 30 units SC TIDCM 03/24/17 Simvastatin 40 mg PO QHS 03/24/17 Triamterene/Hydrochlorothiazid 1 each PO DAILY 03/24/17 [Triamterene-Hctz 37.5-25 mg Cp] Gabapentin [Neurontin] 800 mg PO 4X/DAY 05/28/17 Naproxen [Naprosyn] 500 mg PO BID 05/28/17 Ferrous Sulfate 325 mg PO BIDCM #60 tab 06/04/17 Albuterol Aerosols [Ventolin 2.5 mg INHALATION Q4H PRN PRN 06/09/17 Aerosols] Acetaminophen [Tylenol Tablet] 650 mg PO Q6H PRN PRN tablet 06/12/17 Enoxaparin [Lovenox] 40 mg SC DAILY@1000 syringe 06/12/17 Glucerna Shake 120 ml PO 4X/DAY liquid 06/12/17 Insulin Aspart [Novolog Flexpen] See Protocol SC ACHS flexpen 06/12/17 Lactobacillus Acidophilus 1 tablet PO 4X/DAY tablet 06/12/17 [Acidophilus] Loperamide [Imodium] 2 mg PO Q2H PRN PRN capsule 06/12/17 Mag Hydrox/Al Hydrox/Simeth 30 ml PO Q6H PRN PRN udc 06/12/17 [Mylanta II] Magnesium Hydroxide [Milk Of 30 ml PO DAILY PRN PRN udc 06/12/17 Magnesia] Oxycodone [Oxyir] 10 mg PO Q4H PRN PRN 2 Days #10 tab 06/12/17 Piperacil/Tazobactam [Zosyn] 3.375 gm IV Q8 ml 06/12/17 Vancomycin 1,750 mg IV Q12H #0 vial 06/12/17 morphine SR tablet [Ms Contin] 15 mg PO TID 1 Days #3 tab 06/12/17 Current Medications Generic Name Dose Route Start Last Admin Trade Name Freq PRN Reason Stop Dose Admin Acetaminophen 1,000 mg 06/12/17 21:47 06/16/17 00:19 Tylenol PO 1,000 mg Q8H PRN PRN Administration MILD PAIN (1-04/26) Al Hydroxide/Mg Hydroxide 30 ml 06/12/17 17:28 06/15/17 12:37 Mylanta Ii PO 30 ml Q6H PRN PRN Administration Gastric burning Albuterol Sulfate 2.5 mg 06/12/17 17:28 Ventolin Aerosols INHALATION Q4H PRN PRN sob/ wheezing Atorvastatin Calcium 40 mg 06/12/17 22:00 06/15/17 21:22 Lipitor PO 40 mg QHS SWATI Administration Bisacodyl 10 mg 06/12/17 21:46 Dulcolax PO DAILY PRN Constipation Bupropion HCl 150 mg 06/13/17 06:00 06/16/17 06:46 Wellbutrin Xl PO 150 mg DAILY SWATI Administration Citalopram Hydrobromide 40 mg 06/13/17 06:00 06/16/17 06:46 Celexa PO 40 mg DAILY SWATI Administration Enoxaparin Sodium 40 mg 06/13/17 06:00 06/16/17 06:48 Lovenox SC 40 mg DAILY@0600 SWATI Administration Gabapentin 800 mg 06/12/17 22:00 06/16/17 11:51 Neurontin PO 800 mg 4X/DAY SWATI Administration Glimepiride 4 mg 06/13/17 08:00 06/16/17 08:01 Amaryl PO 4 mg BIDCM SWATI Administration Heparin Sodium (Beef Lung) 500 unit 06/12/17 22:41 Heparin 500 Unit/5 Ml (100/Ml) IV UD PRN HEPARIN FLUSH Piperacillin Sod/Tazobactam Sod 3.375 gm in 50 mls @ 12.5 mls/hr 06/12/17 22: 00 06/16/17 14:25 Zosyn IV 12.5 mls/hr Q8 SWATI Administration Sodium Chloride 250 mls @ 15 mls/hr 06/12/17 22:41 06/16/17 11:47 IV 15 mls/hr .[id number] PRN Administration SALINE FLUSH Daptomycin 1,000 mg/ Sodium 70 mls @ 100 mls/hr 06/16/17 11:00 06/16/17 11:47 Chloride IV 100 mls/hr Q24 SWATI Administration Insulin Aspart 15 units 06/15/17 06:45 06/16/17 11:51 Novolog Flexpen ([facility]) SC 15 units TIDAC [facility] Administration Insulin Detemir 100 units 06/12/17 18:00 06/16/17 07:04 Levemir ([facility]) SC 100 u BID [facility] Administration Lactobacillus Acidophilus 1 tablet 06/12/17 22:00 06/16/17 11:51 Acidophilus PO 1 tablet 4X/DAY SWATI Administration Loperamide HCl 2 mg 06/12/17 17:28 06/15/17 19:40 Imodium PO 2 mg Q2H PRN PRN Administration LOOSE STOOLS Losartan Potassium 100 mg 06/13/17 06:00 06/16/17 06:46 Cozaar PO 100 mg DAILY [facility] Administration Metformin HCl 1,000 mg 06/13/17 08:00 06/16/17 08:01 Glucophage PO 1,000 mg BIDCM [facility] Administration Morphine Sulfate 15 mg 06/12/17 22:00 06/16/17 13:28 Ms Contin PO 15 mg TID [facility] Administration Naproxen 500 mg 06/12/17 18:00 06/16/17 06:46 Naprosyn PO 500 mg BID [facility] Administration Nutritional Formula (Lactose Free) 120 ml 06/12/17 22:00 06/16/17 11:51 Glucerna Shake PO 120 ml 4X/DAY [facility] Administration Oxycodone HCl 10 mg 06/12/17 17:28 06/16/17 00:20 Oxyir PO 10 mg Q4H PRN PRN Administration Moderate Pain (pain scale 4-5) Polyethylene Glycol 17 gm 06/13/17 06:00 06/16/17 07:00 Miralax PO Not Given DAILY [facility] Polysaccharide Iron Complex 150 mg 06/13/17 08:00 06/16/17 08:01 Ferrex 150 PO 150 mg BIDCM [facility] Administration Senna/Docusate Sodium 2 tablet 06/12/17 18:00 06/16/17 07:00 Senokot-S, Yael-Colace PO Not Given BID SWATI Sodium Chloride 10 - 20 ml 06/12/17 22:41 06/16/17 14:26 IV 20 ml UD PRN Administration PICC FLUSH Triamterene/HCTZ 1 cap 06/13/17 06:00 06/16/17 06:46 Dyazide (G) PO 1 cap DAILY SWATI Administration Tuberculin PPD 5 tu 06/20/17 10:00 Tubersol, Aplisol, Ppd ID 06/20/17 10:01 X1 ONE Problem List (Last Reviewed 03/06/17 @ 09:46 by Renuka Key) Obstructive sleep apnea (Chronic) Hyperlipidemia (Chronic) Chronic pain (Chronic) Vital Signs Temp Pulse Resp BP Pulse Ox 98.3 F 74 18 151/65 H 93 06/16/17 16:00 06/16/17 16:00 06/16/17 16:00 06/16/17 16:00 06/16/17 16:00 Oxygen Delivery Method Room Air Weight: 153.314 kg Body Mass Index (BMI) 42.2 Finger Stick Blood Glucose 129 Sodium 141 mmol/L (136-145) 06/13/17 05:55 Potassium 3.6 mmol/L (3.5-5.1) 06/13/17 05:55 Chloride 108 mmol/L (98-107) H 06/13/17 05:55 Carbon Dioxide 26.0 mmol/L (21.0-32.0) 06/13/17 05:55 Anion Gap 7 (5-15) 06/13/17 05:55 BUN 16 mg/dL (7-18) 06/13/17 05:55 Creatinine 1.03 mg/dL (0.70-1.30) 06/13/17 05:55 Est GFR (MDRD) Af Amer 94 mL/min (>60) 06/13/17 05:55 Est GFR (MDRD) Non-Af 78 mL/min (>60) 06/13/17 05:55 BUN/Creatinine Ratio 15.5 RATIO (10-20) 06/13/17 05:55 Glucose 58 mg/dL (74-106) L 06/13/17 05:55 Vancomycin Trough 19.0 ug/mL (5.0-15.0) H 06/14/17 11:25 Assessment/Plan: Psychotropic Medications: Unnecessary Medications: Bowel Regimen: - Provider Comments Provider responsibility: Provider responsible to enter orders to implement recommendations Provider Comments to Recommendations by Pharmacy: Agree
[2017-06-16 16:00] VITALS: BP 151/65; PULSE 74; RESP 18; TEMP 36.8; O2SAT 93
--- NOTE | 2017-06-16 16:31 | CASEMGMT ---
Social Work Nursing reporting that resident was reporting to want to fall asleep and not wake up. Spoke with resident in room. Suicide assessment completed. Resident denying to have suicidal thoughts or plan. Resident reporting to be nervous about up coming surgery. This social media analyst normalizing resident feelings/thoughts. Support given. Will continue to follow. Ester PEREZ, OTOLARYNGOLOGY REP
[2017-06-16 17:00] LABS: Bedside Glucose 70 mg/dL (70-110)
--- NOTE | 2017-06-16 18:34 | NURSING ---
Dr Fernández notified of Blood sugar 70 tonight, new order to decrease levemir 50 units and hold novolog tonight. Pt assisted from recliner chair to bed per his request. Call light in reach.
[2017-06-16 20:46] LABS: Bedside Glucose 147 mg/dL (70-110)
[2017-06-16] MEDS: Atorvastatin Calcium 40 MG Tablet PO (21:28)
[2017-06-17] MEDS: buPROPion (XL) 150 MG TABLET.XL PO (05:10)
[2017-06-17] MEDS: Triamterene 37.5MG/Hctz 25MG Capsule 1 CAP PO (05:10)
[2017-06-17] MEDS: Losartan Potassium 100 MG Tablet PO (05:10)
[2017-06-17] MEDS: Enoxaparin 40 MG/0.4 ML Syringe SC (05:10)
[2017-06-17] MEDS: Naproxen 500 MG Tablet PO ×2 (05:10→17:55)
[2017-06-17] MEDS: Gabapentin 800 MG Tablet PO ×4 (05:10→21:05)
[2017-06-17] MEDS: Citalopram 40 MG TABLET PO (05:11)
[2017-06-17] MEDS: morphine SR 15 MG Tablet PO ×3 (05:12→21:05)
[2017-06-17] MEDS: Piperacil/Tazobactam 3.375 GM/50 ML ML IV ×3 (05:13→21:05)
[2017-06-17 06:36] LABS: Bedside Glucose 119 mg/dL (70-110)
--- NOTE | 2017-06-17 06:43 | NURSING ---
Pt remained in precautions this shift. All care was provided in room.
[2017-06-17] MEDS: Iron Polysaccharide Complex 150 MG CAPSULE PO ×2 (08:15→17:55)
[2017-06-17] MEDS: Glimepiride 4 MG Tablet PO ×2 (08:15→17:55)
[2017-06-17] MEDS: metFORMIN HCl 1,000 MG Tablet 1000 MG PO ×3 (08:15→17:55)
--- NOTE | 2017-06-17 10:06 | NURSING ---
wound photo: left plantar foot
--- NOTE | 2017-06-17 10:07 | NURSING ---
wound photo: left medial foot
--- NOTE | 2017-06-17 10:49 | PN.ID_ITS ---
Subjective: Feeling ok, no myalgias with dapto, no fever. - Physical Exam General: Alert, Cooperative, No apparent distress Lungs: Clear to auscultation, Normal air movement Cardiovascular: Regular rate, Regular Rhythm Abdomen: Soft, Non Tender, Non-Distended, Obese Extremities: Edema Skin: Incision - wrapped, reviewed photo Vital Signs Temp Pulse Resp BP Pulse Ox 98.3 F 74 18 151/65 H 93 06/16/17 16:00 06/16/17 16:00 06/16/17 16:00 06/16/17 16:00 06/16/17 16:00 Oxygen Delivery Method Room Air Weight: 153.314 kg Body Mass Index (BMI) 42.2 Finger Stick Blood Glucose 129 Intake and Output for Last 24 Hours 06/15/17 06/16/17 06/17/17 23:59 23:59 23:59 Intake Total 810 / 810 760 / 760 480 / 480 Output Total 1700 / 1700 2025 / 2025 3500 / 3500 Balance -890 / -890 -1265 / -1265 -3020 / -3020 POC Glucose 06/17/17 06/16/17 06/16/17 06:18 20:43 16:55 POC Glucose 119 H 147 H 70 06/16/17 11:32 POC Glucose 167 H Medical Necessity - Tobacco Use Smoking Status: Former smoker Tobacco Use: Non-smoker Route of nutrition/ use of supplements: [] Nutritional Intake: [] IV Site: [] Tam Catheter: [] - Assessment/Plan Antibiotics: [] Assessment/Plan: [] L foot osteo - worsened while on iv abx at [facility]. Recommend source control with BKA. Cont dapto/zosyn. Leg improving. Cx with MRSA and VRE now. diarrhea - cdiff neg, now improved Will follow
[2017-06-17 11:56] LABS: Bedside Glucose 177 mg/dL (70-110)
[2017-06-17] MEDS: Glucerna Shake 120 ML LIQUID PO ×3 (12:14→21:06)
[2017-06-17 15:09] VITALS: BP 137/64; PULSE 78; RESP 18; TEMP 37.2; O2SAT 90
[2017-06-17 16:51] LABS: Bedside Glucose 155 mg/dL (70-110)
[2017-06-17] MEDS: Senna/Docusate Sodium 1 Tablet 2 TABLET PO (17:55)
[2017-06-17 21:01] LABS: Bedside Glucose 188 mg/dL (70-110)
[2017-06-17] MEDS: Atorvastatin Calcium 40 MG Tablet PO (21:05)
--- NOTE | 2017-06-17 21:30 | NURSING ---
This nurse into flush pts PICC line and start antibiotics. Proximal lumen was flushed with 10cc NS and had blood return. Distal lumen was unable to be flushed. Repositioned pt several times, hub was changed and pt was asked to cough. Shannan RN also assisted with trying to flush. Pt commenting that he has had to have Cathflo in the past and this happens sometimes. Dr. Fernández updated. NO entered.
[2017-06-17] MEDS: Alteplase 2 MG/2 ML Vial IV (22:40)
[2017-06-18] MEDS: Piperacil/Tazobactam 3.375 GM/50 ML ML IV ×3 (05:07→21:22)
[2017-06-18] MEDS: morphine SR 15 MG Tablet PO ×3 (05:07→21:20)
[2017-06-18] MEDS: 0.9% NaCl IVPB Med Flush (250 mL) 15 ML IV (05:07)
[2017-06-18] MEDS: 0.9% NaCl PICC Flush IV ×3 (05:07→21:26)
[2017-06-18] MEDS: Enoxaparin 40 MG/0.4 ML Syringe SC (05:07)
[2017-06-18] MEDS: Triamterene 37.5MG/Hctz 25MG Capsule 1 CAP PO (05:08)
[2017-06-18] MEDS: Naproxen 500 MG Tablet PO ×2 (05:08→16:57)
[2017-06-18] MEDS: Losartan Potassium 100 MG Tablet PO (05:08)
[2017-06-18] MEDS: Citalopram 40 MG TABLET PO (05:08)
[2017-06-18] MEDS: buPROPion (XL) 150 MG TABLET.XL PO (05:08)
[2017-06-18] MEDS: Glucerna Shake 120 ML LIQUID PO ×4 (05:10→21:19)
[2017-06-18] MEDS: Gabapentin 800 MG Tablet PO ×4 (05:10→21:19)
[2017-06-18 06:26] LABS: Bedside Glucose 159 mg/dL (70-110)
--- NOTE | 2017-06-18 06:29 | NURSING ---
Pt remained in precautions this shift. All care was provided in room.
[2017-06-18] MEDS: Glimepiride 4 MG Tablet PO ×2 (08:15→16:57)
[2017-06-18] MEDS: Iron Polysaccharide Complex 150 MG CAPSULE PO ×2 (08:15→16:57)
[2017-06-18] MEDS: metFORMIN HCl 1,000 MG Tablet 1000 MG PO ×2 (08:15→16:57)
[2017-06-18] MEDS: oxyCODONE 5 MG Tablet 10 MG PO (12:15)
[2017-06-18 12:30] LABS: Bedside Glucose 159 mg/dL (70-110)
--- NOTE | 2017-06-18 13:15 | CASEMGMT ---
Insurance Clinical information sent. Pending continued stay approval. Auth#[id number] Ester PEREZ, COMPUTER TECHNOLOGY INSTRUCTOR
--- NOTE | 2017-06-18 14:26 | CASEMGMT ---
Plan of care meeting held. Resident present as well as resident family. No discharge date at this time, surgery is scheduled for 06/24/17 at this time. Resident to continue with further care and treatment on the Transitional Care Unit until surgery. Resident pending continued stay approval from insurance at this time. Support given. Will continue to follow. Ester PEREZ, CHAIR PAD MAKER
[2017-06-18 15:18] VITALS: BP 171/71; PULSE 81; RESP 16; TEMP 36.9; O2SAT 92
--- NOTE | 2017-06-18 16:31 | NURSING ---
[employer] RECOMMENDATION FOR 2000CAL CONTROL CARDIAC DIET CHANGE. PT UPDATED.
[2017-06-18 17:00] LABS: Bedside Glucose 163 mg/dL (70-110)
[2017-06-18 21:16] LABS: Bedside Glucose 151 mg/dL (70-110)
[2017-06-18] MEDS: Atorvastatin Calcium 40 MG Tablet PO (21:19)
--- NOTE | 2017-06-18 22:15 | NURSING ---
Pt remained in precautions this shift. All care provided in room.
[2017-06-19] MEDS: Citalopram 40 MG TABLET PO (05:18)
[2017-06-19] MEDS: Glucerna Shake 120 ML LIQUID PO ×4 (05:18→21:17)
[2017-06-19] MEDS: Losartan Potassium 100 MG Tablet PO (05:18)
[2017-06-19] MEDS: Triamterene 37.5MG/Hctz 25MG Capsule 1 CAP PO (05:18)
[2017-06-19] MEDS: morphine SR 15 MG Tablet PO ×3 (05:18→21:17)
[2017-06-19] MEDS: buPROPion (XL) 150 MG TABLET.XL PO (05:18)
[2017-06-19] MEDS: Gabapentin 800 MG Tablet PO ×4 (05:18→21:17)
[2017-06-19] MEDS: Naproxen 500 MG Tablet PO ×2 (05:18→16:35)
[2017-06-19] MEDS: Enoxaparin 40 MG/0.4 ML Syringe SC (05:22)
[2017-06-19] MEDS: 0.9% NaCl PICC Flush IV ×4 (05:22→21:17)
[2017-06-19] MEDS: Piperacil/Tazobactam 3.375 GM/50 ML ML IV ×3 (05:22→21:17)
[2017-06-19] MEDS: 0.9% NaCl IVPB Med Flush (250 mL) 15 ML IV ×2 (05:22→10:26)
[2017-06-19 06:51] LABS: Bedside Glucose 220 mg/dL (70-110)
[2017-06-19] MEDS: metFORMIN HCl 1,000 MG Tablet 1000 MG PO ×2 (07:48→16:35)
[2017-06-19] MEDS: Glimepiride 4 MG Tablet PO ×2 (07:48→16:34)
[2017-06-19] MEDS: Iron Polysaccharide Complex 150 MG CAPSULE PO ×2 (07:48→16:35)
[2017-06-19] MEDS: oxyCODONE 5 MG Tablet 10 MG PO ×2 (10:36→16:34)
[2017-06-19 11:06] LABS: Bedside Glucose 190 mg/dL (70-110)
--- NOTE | 2017-06-19 11:17 | CASEMGMT ---
Insurance Continued stay approved with next update due on 06/23/17. Auth#[id number] Ester PEREZ, CONSULTING GROUP ANALYST
--- NOTE | 2017-06-19 11:42 | NURSING ---
ALL PROVIDED IN ROOM T/O THIS SHIFT D/T CONTACT PRECAUTIONS.
--- NOTE | 2017-06-19 11:42 | NURSING ---
Preadmission testing called, requesting med list and labs, Need labs for tomorrow faxed to them. Meds faxed today.
[2017-06-19 12:30] VITALS: PULSE 78
[2017-06-19] MEDS: Mag Hydrox/Al Hydrox/Simeth 30 ML UDC PO ×2 (13:40→23:28)
--- NOTE | 2017-06-19 14:31 | NURSING ---
pt requested protonix per home regimen. dr cespedes notified, new order obtained to restart. pt updated
[2017-06-19 16:00] VITALS: BP 125/57; PULSE 75; RESP 20; TEMP 36.1; O2SAT 94
[2017-06-19] MEDS: Pantoprazole Sodium 40 MG Tablet PO (16:34)
[2017-06-19 17:16] LABS: Bedside Glucose 133 mg/dL (70-110)
[2017-06-19 21:06] LABS: Bedside Glucose 100 mg/dL (70-110)
[2017-06-19] MEDS: Atorvastatin Calcium 40 MG Tablet PO (21:17)
[2017-06-20] MEDS: Enoxaparin 40 MG/0.4 ML Syringe SC (04:57)
[2017-06-20] MEDS: Naproxen 500 MG Tablet PO ×2 (04:57→17:44)
[2017-06-20] MEDS: Losartan Potassium 100 MG Tablet PO (04:57)
[2017-06-20] MEDS: buPROPion (XL) 150 MG TABLET.XL PO (04:57)
[2017-06-20] MEDS: Triamterene 37.5MG/Hctz 25MG Capsule 1 CAP PO (04:57)
[2017-06-20] MEDS: Pantoprazole Sodium 40 MG Tablet PO ×2 (04:58→17:44)
[2017-06-20] MEDS: morphine SR 15 MG Tablet PO ×3 (04:58→22:21)
[2017-06-20] MEDS: Gabapentin 800 MG Tablet PO ×4 (04:58→22:22)
[2017-06-20] MEDS: 0.9% NaCl PICC Flush IV ×3 (04:58→22:22)
[2017-06-20] MEDS: Citalopram 40 MG TABLET PO (04:58)
[2017-06-20] MEDS: Piperacil/Tazobactam 3.375 GM/50 ML ML IV ×3 (05:15→22:22)
[2017-06-20 05:36] LABS: Absolute Lymphocyte Count 1.84 X10^3/ul (0.83-4.51); Absolute Neutrophil Count 3.3 X10^3/uL (2.0-7.7); Basophil# 0.04 X10^3/uL; Basophil% 0.7 % (0-1); Eosinophil# 0.39 X10^3/uL; Eosinophils% 6.4 % (0-5); Hematocrit 32.4 % (40-54); Hemoglobin 9.9 g/dl (13.0-16.5); International Normalized Ratio 1.1; Lymphocyte # 1.84 X10^3/ul (4.0); Lymphocyte % 30.1 % (19-41); Mean Corp Hgb Conc 30.6 g/gl (32-36); Mean Corpuscular Hgb 26.8 pg (27.0-32.0); Mean Corpuscular Volume 87.8 fL (80-94); Mean Platelet Vol. 9.2 fl (6.2-12.0); Monocyte# 0.56 X10^3/uL; Monocyte% 9.2 % (0-10); Neutrophil # 3.27 X10^3/uL (2.7-7.7); Neutrophil % 53.4 % (47-70); Platelet Count 317 K/mm3 (150-450); Prothrombin Time (Protime)PT. 13.9 SECONDS (11.7-14.9); RBC Distribution Width CV 15.9 % (11.6-14.6); Red Blood Count 3.69 M/mm3 (4.6-6.2); White Blood Count 6.1 K/mm3 (4.4-11.0)
[2017-06-20 05:37] LABS: POSITIVE COUNT NO; POSITIVE DIFFERENTIAL NO; POSITIVE MORPHOLOGY NO; Partial Thromboplast Time 35.9 Seconds (24.1-36.2)
[2017-06-20 05:40] LABS: AST(SGOT) 19 U/L (15-37); Alanine Aminotransfer ALT/SGPT 27 U/L (16-61); Albumin, Serum 3.6 g/dL (3.2-5.0); Alkaline Phosphatase 87 U/L (45-117); Anion Gap 7 (5-15); BUN 27 mg/dL (7-18); BUN/Creat Ratio 21.8 RATIO (10-20); Bilirubin, Direct 0.12 mg/dL (0.00-0.30); Calcium,Total 9.4 mg/dL (8.5-10.1); Chloride 102 mmol/L (98-107); Creatinine, Serum 1.24 mg/dL (0.70-1.30); EST Glomerular Filtration Rate 63 mL/min (>60); Est Glom Filt Rate - Afr Amer 76 mL/min (>60); Estimated Creatinine Clearance 74.77 ml/min; Globulin 3.6 g/dL (2.2-4.2); Glucose 138 mg/dL (74-106); Potassium 4.4 mmol/L (3.5-5.1); Protein, Total 7.2 g/dL (6.4-8.2); Sodium Level 139 mmol/L (136-145)
[2017-06-20 05:50] LABS: CPK Total, Creatine Kinase 120 U/L (39-308)
[2017-06-20 06:46] LABS: Bedside Glucose 156 mg/dL (70-110)
--- NOTE | 2017-06-20 08:00 | EKG12_ITS ---
Test Reason : AM EKG Blood Pressure : / mmHG Vent. Rate : 069 BPM Atrial Rate : 069 BPM P-R Int : 172 ms QRS Dur : 098 ms QT Int : 416 ms P-R-T Axes : 039 -23 053 degrees QTc Int : 445 ms Normal sinus rhythm Normal ECG When compared with ECG of 10-JUN-2017 05:39, No significant change was found Confirmed by ADOLFO MADSEN, MAC ([id number]), editor farm journal MALGORZATA ZHU ([id number] on 06/23/2017 2:41:17 PM Referred By: Bharath Fernández Confirmed By:MAC MATA MD
[2017-06-20] MEDS: Iron Polysaccharide Complex 150 MG CAPSULE PO ×2 (08:28→17:45)
[2017-06-20] MEDS: Glimepiride 4 MG Tablet PO ×2 (08:28→17:44)
[2017-06-20] MEDS: metFORMIN HCl 1,000 MG Tablet 1000 MG PO ×2 (08:28→17:44)
[2017-06-20] MEDS: Acetaminophen 500 MG Tablet 1000 MG PO (08:35)
[2017-06-20] MEDS: oxyCODONE 5 MG Tablet 10 MG PO (08:36)
[2017-06-20 10:55] LABS: Bedside Glucose 183 mg/dL (70-110)
--- NOTE | 2017-06-20 11:02 | PCM.PN.ID ---
Subjective: Feeling good, no fever, no myalgias, no n/v/d. Leg less swollen. - Physical Exam General: Alert, Cooperative Lungs: Clear to auscultation, Normal air movement Cardiovascular: Regular rate, Regular Rhythm Abdomen: Soft, Non Tender, Non-Distended Extremities: Edema - much improved Vital Signs Temp Pulse Resp BP Pulse Ox 97.0 F L 75 20 H 125/57 H 94 06/19/17 16:00 06/19/17 16:00 06/19/17 16:00 06/19/17 16:00 06/19/17 16:00 Oxygen Delivery Method Room Air Weight: 147.134 kg Body Mass Index (BMI) 42.2 Finger Stick Blood Glucose 129 Intake and Output for Last 24 Hours 06/18/17 06/19/17 06/20/17 23:59 23:59 23:59 Intake Total 600 / 600 968 / 968 240 / 240 Output Total 700 / 700 Balance 600 / 600 268 / 268 240 / 240 Laboratory Tests Past 24 Hrs 06/20/17 06/20/17 06/20/17 05:10 05:10 05:10 WBC 6.1 RBC 3.69 L Hgb 9.9 L Hct 32.4 L MCV 87.8 MCH 26.8 L MCHC 30.6 L RDW 15.9 H RDW Differential 50.0 H Plt Count 317 MPV 9.2 Immature Gran % (Auto) 0.200 Neut % (Auto) 53.4 Lymph % (Auto) 30.1 [place] % (Auto) 9.2 Eos % (Auto) 6.4 H Baso % (Auto) 0.7 Absolute Neuts (auto) 3.3 Absolute Lymphs (auto) 1.84 Total Counted Not Reportable PT INR APTT Sodium 139 Potassium 4.4 Chloride 102 Carbon Dioxide 30.0 Anion Gap 7 BUN 27 H Creatinine 1.24 Estim Creat Clear Calc 74.77 Est GFR (MDRD) Af Amer 76 Est GFR (MDRD) Non-Af 63 BUN/Creatinine Ratio 21.8 H Glucose 138 H Hemoglobin A1c Calcium 9.4 Total Bilirubin 0.60 Direct Bilirubin 0.12 AST 19 ALT 27 Alkaline Phosphatase 87 Total Creatine Kinase 120 Total Protein 7.2 Albumin 3.6 Globulin 3.6 06/20/17 06/20/17 05:10 05:10 WBC RBC Hgb Hct MCV MCH MCHC RDW RDW Differential Plt Count MPV Immature Gran % (Auto) Neut % (Auto) Lymph % (Auto) [place] % (Auto) Eos % (Auto) Baso % (Auto) Absolute Neuts (auto) Absolute Lymphs (auto) Total Counted PT 13.9 INR 1.1 APTT 35.9 Sodium Potassium Chloride Carbon Dioxide Anion Gap BUN Creatinine Estim Creat Clear Calc Est GFR (MDRD) Af Amer Est GFR (MDRD) Non-Af BUN/Creatinine Ratio Glucose Hemoglobin A1c 8.0 H Calcium Total Bilirubin Direct Bilirubin AST ALT Alkaline Phosphatase Total Creatine Kinase Total Protein Albumin Globulin POC Glucose 06/20/17 06/20/17 06/19/17 10:52 06:37 20:57 POC Glucose 183 H 156 H 100 06/19/17 06/19/17 17:07 10:55 POC Glucose 133 H 190 H Medical Necessity - Tobacco Use Smoking Status: Former smoker Tobacco Use: Non-smoker Route of nutrition/ use of supplements: [] Nutritional Intake: [] IV Site: [] Tam Catheter: [] - Assessment/Plan Antibiotics: [] Assessment/Plan: [] L foot osteo - worsened while on iv abx at [facility]. Recommend source control with BKA. Cont dapto/zosyn. Leg improving. Cx with MRSA and VRE now. OR planned for 06/24/17. CK and LFTs are normal. diarrhea - cdiff neg, now improved Will follow
[2017-06-20] MEDS: Tuberculin,Purif.prot.deriv. 50 TU/ML Vial 5 ML ID (11:28)
[2017-06-20] MEDS: Glucerna Shake 120 ML LIQUID PO ×3 (12:18→22:22)
[2017-06-20 15:48] VITALS: BP 126/69; PULSE 75; RESP 18; TEMP 36.2; O2SAT 92
[2017-06-20 17:05] LABS: Bedside Glucose 167 mg/dL (70-110)
[2017-06-20 20:45] LABS: Bedside Glucose 131 mg/dL (70-110)
[2017-06-20 21:31] LABS: Bedside Glucose 144 mg/dL (70-110)
[2017-06-20] MEDS: Atorvastatin Calcium 40 MG Tablet PO (22:22)
[2017-06-21] MEDS: Pantoprazole Sodium 40 MG Tablet PO ×2 (05:56→17:53)
[2017-06-21] MEDS: Triamterene 37.5MG/Hctz 25MG Capsule 1 CAP PO (05:56)
[2017-06-21] MEDS: Citalopram 40 MG TABLET PO (05:56)
[2017-06-21] MEDS: buPROPion (XL) 150 MG TABLET.XL PO (05:56)
[2017-06-21] MEDS: Gabapentin 800 MG Tablet PO ×4 (05:56→22:34)
[2017-06-21] MEDS: morphine SR 15 MG Tablet PO ×3 (05:56→22:33)
[2017-06-21] MEDS: Losartan Potassium 100 MG Tablet PO (05:56)
[2017-06-21] MEDS: Naproxen 500 MG Tablet PO ×2 (05:56→17:53)
[2017-06-21] MEDS: Enoxaparin 40 MG/0.4 ML Syringe SC (05:57)
[2017-06-21] MEDS: Glucerna Shake 120 ML LIQUID PO ×4 (05:58→22:33)
[2017-06-21] MEDS: Piperacil/Tazobactam 3.375 GM/50 ML ML IV ×3 (05:58→22:34)
[2017-06-21] MEDS: 0.9% NaCl PICC Flush IV (06:03)
[2017-06-21 06:51] LABS: Bedside Glucose 178 mg/dL (70-110)
[2017-06-21] MEDS: Iron Polysaccharide Complex 150 MG CAPSULE PO ×2 (08:53→17:53)
[2017-06-21] MEDS: Glimepiride 4 MG Tablet PO ×2 (08:54→17:53)
[2017-06-21] MEDS: Mag Hydrox/Al Hydrox/Simeth 30 ML UDC PO (09:01)
[2017-06-21] MEDS: 0.9% NaCl IVPB Med Flush (250 mL) 15 ML IV (11:03)
[2017-06-21 11:11] LABS: Bedside Glucose 157 mg/dL (70-110)
[2017-06-21] MEDS: oxyCODONE 5 MG Tablet 10 MG PO (11:19)
[2017-06-21] MEDS: Acetaminophen 500 MG Tablet 1000 MG PO (11:19)
--- NOTE | 2017-06-21 13:58 | RAD_ITS ---
STUDY: X-RAY - ABDOMEN/PELVIS REASON FOR EXAM: Male, 62 years old. Nausea, vomiting TECHNIQUE: 6 views COMPARISON: None. FINDINGS: Normal visualized lung bases. There is an unremarkable bowel gas pattern. There is no demonstrated free abdominal air. The visualized liver, spleen and kidneys are grossly normal in size and morphology. Surgical clips in the right upper quadrant. Normal soft tissue structures. Mild degenerative vertebral changes. RAD/Abd Inc Decub and/or Erect IMPRESSION: No bowel obstruction. Electronically Signed: Gibson Argueta DO at 15:59 EDT Tel [phone], Service support ,
--- NOTE | 2017-06-21 14:05 | NURSING ---
Patient has c/o nausea, mylanta II ineffective. NO for KUB, SC UA and zofran 4mg PO [id number] PRN. Patient refusing to be straight cathed, states he will give a clean catch sample. Patient educated on how to use cleansing wipes prior to giving sample and given sterile urine cup.
[2017-06-21 14:06] VITALS: BP 154/72; PULSE 74; RESP 18; TEMP 36.2; O2SAT 94
[2017-06-21] MEDS: Ondansetron ODT 4 MG Tablet PO (15:01)
[2017-06-21 16:51] LABS: Bedside Glucose 121 mg/dL (70-110)
[2017-06-21 16:54] LABS: Bacteria 0 SEEN /hpf (None Seen); Mucous, Urine 0 SEEN /hpf (<or=2+); Red Blood Cells-Urine 0 SEEN /hpf (0-5); White Blood Cells 0 SEEN /hpf (0-5)
[2017-06-21 17:04] LABS: Color, Urine Yellow (Yellow); Glucose, Dipstick Normal (Normal); Ketone-Dipstick Negative (Negative); Leukocyte Esterase-Dipstick Negative /ul (Negative); Nitrite-Dipstick Negative (Negative); Occult Blood-Urine Negative /ul (Negative); Protein-Dipstick 30 mg/dl (Negative); Urine Bilirubin Dipstick Negative (Negative); Urine Clarity Clear (Clear); Urine Urobilinogen Normal (Normal); Urine pH 6.5 (5.0 - 8.0)
[2017-06-21 17:18] LABS: Squamous Epithelial Cells - UA 0-5 SEEN /hpf (0-5)
[2017-06-21] MEDS: metFORMIN HCl 1,000 MG Tablet 1000 MG PO (17:53)
--- NOTE | 2017-06-21 18:40 | NURSING ---
RIGO reviewed with HARVINDER De Anda.
[2017-06-21 21:06] LABS: Bedside Glucose 83 mg/dL (70-110)
[2017-06-21] MEDS: Atorvastatin Calcium 40 MG Tablet PO (22:33)
[2017-06-22] MEDS: oxyCODONE 5 MG Tablet 10 MG PO ×2 (03:08→22:07)
[2017-06-22] MEDS: Losartan Potassium 100 MG Tablet PO (05:52)
[2017-06-22] MEDS: Gabapentin 800 MG Tablet PO ×4 (05:52→20:59)
[2017-06-22] MEDS: Citalopram 40 MG TABLET PO (05:52)
[2017-06-22] MEDS: buPROPion (XL) 150 MG TABLET.XL PO (05:52)
[2017-06-22] MEDS: Piperacil/Tazobactam 3.375 GM/50 ML ML IV ×3 (05:52→22:02)
[2017-06-22] MEDS: Triamterene 37.5MG/Hctz 25MG Capsule 1 CAP PO (05:52)
[2017-06-22] MEDS: Pantoprazole Sodium 40 MG Tablet PO ×2 (05:52→16:49)
[2017-06-22] MEDS: Enoxaparin 40 MG/0.4 ML Syringe SC (05:53)
[2017-06-22] MEDS: Naproxen 500 MG Tablet PO ×2 (05:53→16:49)
[2017-06-22] MEDS: morphine SR 15 MG Tablet PO ×3 (05:53→20:59)
[2017-06-22] MEDS: Glucerna Shake 120 ML LIQUID PO ×3 (05:58→20:58)
[2017-06-22 06:45] LABS: Bedside Glucose 148 mg/dL (70-110)
[2017-06-22] MEDS: Ondansetron ODT 4 MG Tablet PO (07:05)
[2017-06-22] MEDS: Iron Polysaccharide Complex 150 MG CAPSULE PO ×2 (08:41→16:49)
[2017-06-22] MEDS: metFORMIN HCl 1,000 MG Tablet 1000 MG PO ×2 (08:41→16:49)
[2017-06-22] MEDS: Glimepiride 4 MG Tablet PO ×2 (08:41→16:49)
[2017-06-22] MEDS: Mag Hydrox/Al Hydrox/Simeth 30 ML UDC PO ×2 (08:47→23:10)
[2017-06-22 10:00] VITALS: PULSE 80; RESP 16
[2017-06-22 11:46] LABS: Bedside Glucose 210 mg/dL (70-110)
--- NOTE | 2017-06-22 14:32 | NURSING ---
L foot drsg changed with aquacel AG, gauze, kerlix, tolerated well. Moisturizer applied to bilateral legs at this time per pt request.
--- NOTE | 2017-06-22 14:51 | NURSING ---
patient feeling very anxious about upcoming surgery, requesting anti-anxiety medication. Dr. Fernández made aware, NO for ativan 1mg PO [id number] PRN.
[2017-06-22 15:24] VITALS: BP 119/60; PULSE 73; RESP 18; TEMP 36.7; O2SAT 91
[2017-06-22] MEDS: LORazepam 1 MG Tablet PO ×2 (16:49→23:07)
[2017-06-22 16:56] LABS: Bedside Glucose 115 mg/dL (70-110)
--- NOTE | 2017-06-22 17:05 | NURSING ---
While doing med pass, patient made the comment that he wanted heroin or meth - whatever he could get. I stated that is not appropriate here. He then asked for his PRN Ativan because he was anxious. He declined repositioning, toileting, food, and did not have any suggestions of non-pharmacologic interventions to help his anxiety. While administering PRN Ativan, patient placed pill under tongue. This nurse instructed that it is to be PO not SL. Patient stated that he was anxious and needed the medicine NOW and needed it to absorb faster. I then again educated him the ordered route of the medication and that the medication was not in SL form. He then took a sip of water and swallowed the medication. I then asked him to open his mouth so that I could inspect and verify that he in fact swallowed the pill. I did not visualize a pill under his tongue or along side of his cheeks. MARY Adame notified and stated she would inform Dr Fernández of this behavior.
[2017-06-22] MEDS: Atorvastatin Calcium 40 MG Tablet PO (20:59)
[2017-06-22 21:11] LABS: Bedside Glucose 89 mg/dL (70-110)
[2017-06-22] MEDS: Acetaminophen 500 MG Tablet 1000 MG PO (22:07)
[2017-06-23] MEDS: Triamterene 37.5MG/Hctz 25MG Capsule 1 CAP PO (06:21)
[2017-06-23] MEDS: Gabapentin 800 MG Tablet PO ×4 (06:21→21:13)
[2017-06-23] MEDS: Naproxen 500 MG Tablet PO ×2 (06:21→17:07)
[2017-06-23] MEDS: Losartan Potassium 100 MG Tablet PO (06:21)
[2017-06-23] MEDS: buPROPion (XL) 150 MG TABLET.XL PO (06:21)
[2017-06-23] MEDS: Glucerna Shake 120 ML LIQUID PO ×3 (06:21→21:12)
[2017-06-23] MEDS: Citalopram 40 MG TABLET PO (06:21)
[2017-06-23] MEDS: Pantoprazole Sodium 40 MG Tablet PO ×2 (06:21→17:06)
[2017-06-23] MEDS: morphine SR 15 MG Tablet PO ×2 (06:21→21:12)
[2017-06-23] MEDS: Piperacil/Tazobactam 3.375 GM/50 ML ML IV ×3 (06:22→21:13)
[2017-06-23] MEDS: Enoxaparin 40 MG/0.4 ML Syringe SC (06:22)
[2017-06-23 06:36] LABS: Bedside Glucose 104 mg/dL (70-110)
[2017-06-23] MEDS: Acetaminophen 500 MG Tablet 1000 MG PO (07:13)
[2017-06-23] MEDS: oxyCODONE 5 MG Tablet 10 MG PO (07:14)
[2017-06-23] MEDS: LORazepam 1 MG Tablet PO ×2 (07:17→19:41)
[2017-06-23] MEDS: Glimepiride 4 MG Tablet PO ×2 (08:38→17:07)
--- NOTE | 2017-06-23 08:40 | NURSING ---
all treatments & therapy performed in room d/t remaining in isolation precautions
[2017-06-23] MEDS: metFORMIN HCl 1,000 MG Tablet 1000 MG PO ×2 (09:26→17:07)
[2017-06-23] MEDS: Iron Polysaccharide Complex 150 MG CAPSULE PO ×2 (09:26→17:06)
[2017-06-23 10:00] VITALS: PULSE 72; RESP 16
[2017-06-23 11:06] LABS: Bedside Glucose 161 mg/dL (70-110)
--- NOTE | 2017-06-23 11:39 | CASEMGMT ---
Insurance Clinical information sent. Pending continued stay approval at this time. Auth#[id number] Ester PEREZ, AUTO REFINISHER
[2017-06-23] MEDS: 0.9% NaCl PICC Flush IV ×2 (13:28→21:12)
[2017-06-23] MEDS: 0.9% NaCl IVPB Med Flush (250 mL) 15 ML IV (13:28)
--- NOTE | 2017-06-23 14:51 | NURSING ---
Pt surgery moved up to 12:25 per substation mechanic tomorrow.
[2017-06-23 15:53] VITALS: BP 147/68; PULSE 73; RESP 18; TEMP 36.6; O2SAT 94
[2017-06-23 17:06] LABS: Bedside Glucose 162 mg/dL (70-110)
[2017-06-23] MEDS: Atorvastatin Calcium 40 MG Tablet PO (21:13)
[2017-06-23 21:40] LABS: Bedside Glucose 180 mg/dL (70-110)
--- NOTE | 2017-06-23 22:18 | NURSING ---
Dr. Rodriguez called and stated that patient patient is supposed to continue IV ATB as scheduled. If Cubcin cannot be given here then they can give in OR. Patient is to have no lovenox. Patient is allowed to have pain meds and Ativan per hospital policy.
[2017-06-24] MEDS: 0.9% NaCl PICC Flush IV (05:11)
[2017-06-24] MEDS: Piperacil/Tazobactam 3.375 GM/50 ML ML IV (05:11)
[2017-06-24] MEDS: Losartan Potassium 100 MG Tablet PO (05:11)
[2017-06-24] MEDS: morphine SR 15 MG Tablet PO (05:11)
[2017-06-24 06:46] LABS: Bedside Glucose 205 mg/dL (70-110)
--- NOTE | 2017-06-24 11:06 | CASEMGMT ---
Insurance Notified insurance of resident discharge on 06/24/17 to surgery. Auth#[id number] Ester PEREZ, PAINT PREPPER
--- NOTE | 2017-06-24 15:30 | MDS.RN ---
Information for the mds was obtained from review of the clinical record, interview of resident, staff, and direct observation of resident's care.
--- NOTE | 2017-06-27 14:00 | PCM.DC.SUM ---
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) Obstructive sleep apnea (Chronic) Hyperlipidemia (Chronic) Chronic pain (Chronic) Osteomyelitis (Chronic) Non-pressure chronic ulcer of left heel and midfoot with muscle involvement without evidence of necrosis (Chronic) Infection of left foot (Chronic) Hypersomnia (Chronic) Ulcer of midfoot with necrosis of muscle (Chronic) Nocturnal hypoxemia (Chronic) Abscess of left foot (Chronic) Diabetic ulcer of left foot with fat layer exposed (Chronic) Non-pressure chronic ulcer of left heel and midfoot with fat layer exposed (Chronic) 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 Venous insufficiency of both lower extremities (Chronic) S/P transmetatarsal amputation of foot (Chronic) 03/04/[address] 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) Hypertension (Chronic) Amputation of right foot with complication (Chronic) Type 2 diabetes mellitus with diabetic polyneuropathy (Chronic) Stasis dermatitis of both legs (Chronic) Sleep apnea (Chronic) CPAP 15 cm H20, 100% compliant Neuropathy (Chronic) secondary to diabetes Morbid obesity (Chronic) Anemia (Chronic) Dyslipidemia (Chronic) Left ventricular hypertrophy (Chronic) Chronic pain syndrome (Chronic) Depression (Chronic) Hospital Course and Treatment Consultations 06/12/17 Consult: Onc/Wound/human resources representative Routine Comment: Reason for Consult:: lt foot osteomyelitis Operations: None, - - Incision and drainage, excisional debridement of nonhealing infected diabetic ulcer of the left foot, with partial ostectomy of the cuboid bone. Insertion of wound VAC. Procedures: None Summary of Care Provided: The patient is a 62 year old Male with below past medical history significant for Diabetes Mellitus II, hospitalized for left foot osteomyelitis, complicated by chest pain, anemia, admitted to TCU with debility, here for rehabilitation, strengthening, intravenous antibiotics, prior to amputation per Dr. Rodriguez. Discharge to [facility] for left Below the Knee amputation with Dr. Rodriguez. Discharge Diet: No Restrictions Discharge Activity: Use Walker Weight Bearing Status: No weight bearing - Left lower extremity. Call your doctor if you observe: Fever of 101 or Higher, Change in Color, Inability to urinate, Inability to have a bowel movement, Shortness of breath, Chest pain, Uncontrolled pain Home Medications: Medications to take at Discharge Insulin Detemir [Levemir FlexPen] 50 units SC BID 10/12/14 Citalopram [Celexa] 40 mg PO DAILY 11/15/14 Metformin HCl [Glucophage] 1,000 mg PO BIDCM 11/15/14 Losartan Potassium [Cozaar] 100 mg PO DAILY 06/05/16 buPROPion XL [Wellbutrin Xl] 150 mg PO DAILY 01/21/17 glimepiride 4 mg tablet 4 mg PO BID tab 01/31/17 Insulin Aspart [Novolog Flexpen] 15 units SC TIDCM 03/24/17 Triamterene/Hydrochlorothiazid [Triamterene-Hctz 37.5-25 mg Cp] 1 each PO DAILY 03/24/17 Gabapentin [Neurontin] 800 mg PO 4X/DAY 05/28/17 Naproxen [Naprosyn] 500 mg PO BID 05/28/17 Albuterol Aerosols [Ventolin Aerosols] 2.5 mg INHALATION Q4H PRN PRN 06/09/17 Insulin Aspart [Novolog Flexpen] See Protocol SC ACHS flexpen 06/12/17 Loperamide [Imodium] 2 mg PO Q2H PRN PRN capsule 06/12/17 Oxycodone [Oxyir] 10 mg PO Q4H PRN PRN 2 Days #10 tab 06/12/17 morphine SR tablet [Ms Contin] 15 mg PO TID 1 Days #3 tab 06/12/17 Acetaminophen [Tylenol Tablet] 1,000 mg PO Q8H PRN PRN 06/19/17 Atorvastatin Calcium [Lipitor] 40 mg PO QHS 06/19/17 Bisacodyl [Dulcolax] 10 mg PO DAILY PRN PRN 06/19/17 DAPTOmycin [Cubicin] 1,000 mg IV Q24H 06/19/17 Enoxaparin [Lovenox] 40 mg SC DAILY@1000 06/19/17 Glucerna Shake 120 ml PO 4X/DAY 06/19/17 Heparin Sodium,Porcine/Pf [Heparin 500 Unit/5 ml (100/ml)] 500 unit IV UD PRN 06/19/17 Iron Polysaccharide Complex [Ferrex 150] 150 mg PO DAILYCM 06/19/17 Lactobacillus Acidophilus [Acidophilus] 1 tablet PO 4X/DAY 06/19/17 Mag Hydrox/Al Hydrox/Simeth [Mylanta II] 30 ml PO Q6H PRN PRN 06/19/17 Piperacil/Tazobactam [Zosyn] 3.375 gm IV Q8 06/19/17 Polyethylene Glycol 8000 [Polyethylene Glycol] 17 gm PO DAILY 06/19/17 Senna/Docusate Sodium [Senokot-S, Yael-Colace] 2 tablet PO BID 06/19/17 Tuberculin,Purif.prot.deriv. [Tubersol, Aplisol, Ppd] 5 tu ID X1 06/19/17 Primary Care Physician: Orion Cordova [Primary Care Provider] - Please follow up with your Primary Care Physician in: After Hospitalization. Disposition: Acute care Hospital Minutes spent on discharge:: 30 Patient Condition:: Guarded Medical Necessity - Tobacco Use Smoking Status: Former smoker Tobacco Use: Non-smoker Meaningful Use Info Meaningful Use Diagnoses (Choose all that apply): None applicable
== END 2017-06-24 11:00 | disposition short-term general hospital (02) | DRG 948 ==
PROVIDERS: Internal Medicine Infectious Disease; Admitting Provider Family Medicine Geriatric Medicine; Family Provider Family Medicine; PCP Family Medicine; Visit Provider Family Medicine Geriatric Medicine
DX: R53.81 Other malaise (principal); M86.172 Other acute osteomyelitis, left ankle and foot; L97.425 Non-pressure chronic ulcer of left heel and midfoot with muscle involvement without evidence of necrosis; Z68.41 Body mass index [BMI] 40.0-44.9, adult; E11.69 Type 2 diabetes mellitus with other specified complication; D50.9 Iron deficiency anemia, unspecified; F32.9 Major depressive disorder, single episode, unspecified; E78.5 Hyperlipidemia, unspecified; I10 Essential (primary) hypertension; G47.33 Obstructive sleep apnea (adult) (pediatric); E11.51 Type 2 diabetes mellitus with diabetic peripheral angiopathy without gangrene; E11.622 Type 2 diabetes mellitus with other skin ulcer; E11.42 Type 2 diabetes mellitus with diabetic polyneuropathy; G89.4 Chronic pain syndrome; Z23 Encounter for immunization; Z87.891 Personal history of nicotine dependence; Z79.4 Long term (current) use of insulin; Z79.899 Other long term (current) drug therapy; R19.7 Diarrhea, unspecified; B95.62 Methicillin resistant Staphylococcus aureus infection as the cause of diseases classified elsewhere; E11.610 Type 2 diabetes mellitus with diabetic neuropathic arthropathy; E66.01 Morbid (severe) obesity due to excess calories; Z71.3 Dietary counseling and surveillance
CPT/HCPCS: 36415; 74019; 80048; 80076; 80202; 81001; 82550; 82962; 83036; 85025; 85610; 85730; 93005; 97110; 97116; 97162; 97166; 97530; 97535; 97802; J0878; J2997; J7040; J7050; 90670; A4216; J3490

== ENCOUNTER 2017-06-24 15:42 | Inpatient (IN) | payer MEDICARE, SELFPAY ==
--- NOTE | 2017-06-23 23:44 | PCM.HP.BLA ---
History and Physical Date of Admission: 06/24/17 HISTORY OF PRESENT ILLNESS 62 year old man who I have been caring [facility] with nonhealing diabetic ulcers left foot with underlying osteomyelitis. He has been treated off and on in the past with IV antibiotics. He has had MRSA in the past. When the IV antibiotics stop, he develops a recurrent infection. His left operative debridement was on 05/30/17 where he underwent surgical preparation left plantar foot with incision and drainage and excisional debridement nonhealing MRSA diabetic ulcer (42 cm2) and partial ostectomy cuboid bone for osteomyelitis. Shortly after that surgery he was seen at the [facility] where continued redness and swelling and pain was seen despite being on IV Vancomycin. He was readmitted and is now on Daptomycin and Zosyn. Besides the MRSA, he also has VRE. It was determined after long discussion with the patient to proceed with amputation, below knee. PAST MEDICAL HISTORY Diabetes mellitus with neuropathy. Hypertension. Venous insufficiency. PETRA. Obesity. Hyperlipidemia. Charcot neuropathic osteoarthropathy. Rocker bottom left foot. Amputation status right foot. Anemia. Chronic pain syndrome. Depression. LVH. PVD. Vitamin D deficiency. Former smoker. MRSA. PAST SURGICAL HISTORY Right hallux amputation at MTP joint - 12/29/14. Excisional debridement including fascia left great toe - 04/03/15. Partial 4th toe amputation right foot at PIP joint - 12/09/15. Bone biopsy calcaneal cuboid bone left foot and excisional debridement left plantar foot ulceration - 10/18/16. Right foot trans metatarsal amputation - 03/04/16. Debridement left foot ulcer with versajet including necrotic muscle and widespread debridement plantar foot and incision and drainage left foot - 01/24/17. Surgical preparation left plantar foot with incision and drainage and excisional debridement nonhealing infected diabetic ulcer with fasciitis (30 cm2) and surgical preparation left medial foot with incision and drainage and excisional debridement nonhealing infected diabetic ulcer with fasciitis (24 cm2) - 03/25/17. surgical preparation left plantar foot with incision and drainage and excisional debridement nonhealing MRSA diabetic ulcer (42 cm2) and partial ostectomy cuboid bone for osteomyelitis - 05/30/17. MEDICATIONS Wellbutrin. Celexa. Neurontin. Glimepiride. Glucerna Shake. Novolog Flexpen. Levemir. Cozaar. Glucophage. MS Contin. Naprosyn. Simvastatin. Triamterene-HCTZ. Daptomycin. Zosyn. ALLERGIES cefepime - Hives. lisinopril - cough. sulfa - turned red. Penicillins - unknown. FAMILY HISTORY Maternal - Cancer, Heart Disease. Paternal - Heart Disease. SOCIAL HISTORY Lives: Spouse/ Significant Other Smoking Status: Former smoker Tobacco Use: Non-smoker Alcohol: None Drugs: None REVIEW OF SYSTEMS Constitutional: Reports: Malaise. Denies: Fever, Fatigue Eyes: Denies: Cataracts HEENT: Denies: Nasal Congestion, Sore Throat Cardiovascular: Denies: Chest Pain Respiratory: Denies: Cough, Shortness of Breath Gastrointestinal: Denies: Constipation, Diarrhea, Nausea, Vomiting Genitourinary: Denies: Frequency, Hematuria Musculoskeletal: Reports: Foot Pain. Denies: Back Pain, Hand Pain, Neck Pain Skin: Reports: Wounds - nonhealing ulcer left plantar foot. Neurological: Denies: Headaches Psychiatric: Reports: Depression. Denies: Anxiety Endocrine: Reports: - - has diabetes melltus.. Denies: Polydipsia, Polyuria Hematologic/ Lymphatic: Reports: Anemia. Denies: Easy Bruising, Hx of blood clot - Physical Exam General: Alert, Oriented x3 HEENT: Atraumatic, PERRLA Neck: Supple Lungs: Clear to auscultation Cardiovascular: Regular rate, Regular Rhythm Abdomen: Soft, Non-Distended Extremities: No clubbing, No cyanosis, Diminished Peripheral Pulses, Edema - moderate edema in left foot in the area of the ulcers. Distal leg is mildly swollen. The redness is limited to the ulcerations. No redness seen in the distal leg., - - nonhealing ulcer left plantar foot with Charcot deformity. has right foot TMA. Skin: Ulcer/ Wound - nonhealing ulcers left plantar foot and left medial foot. Increased swelling and redness in the area of the nonhealing ulcers left foot. Exudate present in the ulcers. Bone is palpable in the plantar foot ulcer. No purulent drainage noted. Neurological: Cranial nerves II-XII grossly intact Psych/Mental Status: Normal Affect, Appropriate ASSESSMENT 1. Nonhealing diabetic ulcer left plantar foot with infection. 2. Nonhealing diabetic ulcer left medial foot with infection. 3. Suspected osteomyelitis. 4. Diabetes mellitus. 5. MRSA. 6. Charcot foot neuropathic osteoarthropathy. 7. Former smoker. 8. VRE. PLAN After long discussion with the patient, he has decided to proceed with a BKA. Everytime he stops the IV antibiotics, he develops a recurrent infection. This recurrence, combined with osteomyelitis and an anatomical issue with a Charcot deformity, it is clear the ulcers will not heal totally. The fear is to wait too long with the amputation and the infection spreads more proximally which leads to a more proximal amputation. The prostheses aren't as easy to work with the higher one goes. Generally a BKA gives a better rehab potential because the tribe knee is still present. Surgery will be done under general anesthesia. He will have a compression stump dressing and a drain postop. Sutures will be removed in 3-4 weeks. The drain will be removed in 2-3 weeks. Soft tissue and bone will be sent to Pathology for analysis to rule out carcinoma and to evaluate for osteomyelitis. Soft tissue and bone will be sent to Microbiology for culture. A positive culture may necessitate antibiotic modification. Patient was informed of the risks and complications of the procedure including alternatives to surgery. These were discussed with him personally. He voices understanding and wishes to proceed. Anticipate increase metabolic demands from the infection and from the surgery. Will check a Prealbumin and he will need nutritional supplementation with protein to help the healing process.
[2017-06-24] VITALS (9 sets, daily range): BP systolic 117–159; BP diastolic 60–80; PULSE 68–92; RESP 16–18; TEMP 36–37.1; O2SAT 96–99; BMI 40.5
[2017-06-24] MEDS: LORazepam 2 MG/ML Syringe 1 MG IV (11:49)
--- NOTE | 2017-06-24 12:25 | AMP_PTH ---
PATIENT: BASIL MARRERO LOC: [facility] U#:[id number] AGE/SX: 62/M ROOM: NH324 RE06/24/[address]: Dr. Basil Rangel MD : [id number] BED: 1 DIS: 06/28/2017 SPEC #: [id number] RECD: 06/24/17 15:54 STATUS: DENA REPolly #: [id number] MICAELA: 06/24/17 12:[address]: Lucho Rodriguez DEPT: SURGICAL PATHOLOGY RECD BY: Mavis Hidalgo ENTERED: 06/25/17 11:01 SP TYPE: Amputation OTHR DR: MD Dr. Basil Doss MD Daniel Manz, MD Harriet Jakob, MD Mohamud Mohamed, MD Dr. Paul Fracasso [facility], MD Dr. Yariel Sanders MD Tissues: Left leg Procedures: Decalcification bone/plaque Surgery Specimen Level V HEADER OPERATION: Amputation, left below knee PRE-OP DIAGNOSIS: Nonhealing diabetic ulcer left plantar and medial foot with MRSA infection and osteomyelitis TISSUE SUBMITTED: Left leg BKA stump MICROSCOPIC DIAGNOSIS Left leg, below knee amputation: Focal ulceration, associated inflammation and granulation tissue reaction. Bone underlying the ulcerated area, plantar surface of the foot, negative for acute osteomyelitis. Anterior tibial vessel, posterior tibial vessel, dorsalis pedis vessel with focal medial calcifications. SJ:negra 07/01/17 MICROSCOPIC DESCRIPTION Slides are reviewed. GROSS DESCRIPTION Received labeled with the patient's name and designated left leg below knee amputation. The specimen consists of a below knee amputation of left lower extremity measuring 24 cm from posterior cutaneous resection margin into the heel. The anterior resection margin is 11 cm above the posterior resection margin, 1.5 cm of femur, 0.5 cm of tibia and 6.5 cm of the fibula is projecting beyond the anterior cutaneous resection margin. Also present in the container are two pieces of muscle and adjacent adipose tissue measuring in aggregate 10.5 x 11 x 3 cm. A focal area of ulceration is noted on the medial surface of the leg close to the heel measuring 9 x 2.5 cm. A deep area of ulceration is noted on the plantar surface of the foot 6 cm away from the heel measuring 8 x 5.5 cm. The ulcerated is 2 cm in depth and exposing the underlying bone. Anterior tibial vessel, posterior tibial vessels and dorsalis pedis vessels are dissected and do not reveal significant occlusion. Filbert Grower sections are submitted in seven cassettes as follows: cutaneous and skeletal resection margin, 2 ? ulcerated area, 3 ? bone marrow, 4 ? dorsalis pedis vessel, 5 ? anterior tibial vessel, 6 ? posterior tibial vessel, 7 & 8 ? bone underlying the ulcerated area on the plantar surface of the foot, submitted after decalcification. / SJ:negra 06/25/17 TC:2 CPT: 78404, 25584
[2017-06-24] MEDS: Mupirocin Ointment 22gm Tube 1 APPLIC (15:24)
--- NOTE | 2017-06-24 15:29 | PCM.IMDPSTOP ---
Immediate Post-Op Note Date of Procedure: 06/24/17 Primary Surgeon/Physician: Lucho Rodriguez director of financial reporting: Tiny Mercado. Pre-Operative Diagnosis: 1. Nonhealing diabetic ulcer left plantar foot with infection. 2. Nonhealing diabetic ulcer left medial foot with infection. 3. Osteomyelitis. 4. Diabetes mellitus. 5. MRSA. 6. Charcot foot neuropathic osteoarthropathy. 7. Former smoker. 8. VRE. Post-Operative Diagnosis: Same. Surgery/Procedure Performed:: Left below knee amputation. Description of Surgical Findings:: 62 year old man who I have been caring for at the [facility] with nonhealing diabetic ulcers left foot with underlying osteomyelitis. He has been treated off and on in the past with IV antibiotics. He has had MRSA in the past. When the IV antibiotics stop, he develops a recurrent infection. His left operative debridement was on 05/30/17 where he underwent surgical preparation left plantar foot with incision and drainage and excisional debridement nonhealing MRSA diabetic ulcer (42 cm2) and partial ostectomy cuboid bone for osteomyelitis. Shortly after that surgery he was seen at the [facility] where continued redness and swelling and pain was seen despite being on IV Vancomycin. He was readmitted and is now on Daptomycin and Zosyn. Besides the MRSA, he also has VRE. It was determined after long discussion with the patient to proceed with amputation, below knee. Today the patient underwent left below knee amputation. IV Fluids - 1200 ml. Urine Output - 700 ml. Total tourniquet time - 60 minutes. I used Zenon absorbable hemostat. Reference Number - [id number]. Lot Number - [id number]. Expiration - March 16, 2022. Estimated Blood Loss: 800 ml. Specimen's removed: 1. Left below knee amputation to Pathology. 2. Nonhealing infected MRSA diabetic ulcer soft tissue left plantar foot to Microbiology. 3. Nonhealing infected MRSA diabetic ulcer bone left plantar foot to Microbiology. Drains: Sathya. Type of Anesthesia:: General - Admit VTE Documentation VTE Present on Admission: No VTE Mechan Device Prophylaxis: SCD's VTE Pharm Prophylaxis ordered?: Yes
--- NOTE | 2017-06-24 15:34 | OP.PN_ITS ---
Immediate Post-Op Note Date of Procedure: 06/24/17 Primary Surgeon/Physician: Lucho Rodriguez truant officer: Tiny Mercado. Pre-Operative Diagnosis: 1. Nonhealing diabetic ulcer left plantar foot with infection. 2. Nonhealing diabetic ulcer left medial foot with infection. 3. Osteomyelitis. 4. Diabetes mellitus. 5. MRSA. 6. Charcot foot neuropathic osteoarthropathy. 7. Former smoker. 8. VRE. Post-Operative Diagnosis: Same. Surgery/Procedure Performed:: Left below knee amputation. Description of Surgical Findings:: 62 year old man who I have been caring for at the [facility] with nonhealing diabetic ulcers left foot with underlying osteomyelitis. He has been treated off and on in the past with IV antibiotics. He has had MRSA in the past. When the IV antibiotics stop, he develops a recurrent infection. His left operative debridement was on 05/30/17 where he underwent surgical preparation left plantar foot with incision and drainage and excisional debridement nonhealing MRSA diabetic ulcer (42 cm2) and partial ostectomy cuboid bone for osteomyelitis. Shortly after that surgery he was seen at the [facility] where continued redness and swelling and pain was seen despite being on IV Vancomycin. He was readmitted and is now on Daptomycin and Zosyn. Besides the MRSA, he also has VRE. It was determined after long discussion with the patient to proceed with amputation, below knee. Today the patient underwent left below knee amputation. IV Fluids - 1200 ml. Urine Output - 700 ml. Total tourniquet time - 60 minutes. I used Zenon absorbable hemostat. Reference Number - [id number]. Lot Number - [id number]. Expiration - March 16, 2022. Estimated Blood Loss: 800 ml. Specimen's removed: 1. Left below knee amputation to Pathology. 2. Nonhealing infected MRSA diabetic ulcer soft tissue left plantar foot to Microbiology. 3. Nonhealing infected MRSA diabetic ulcer bone left plantar foot to Microbiology. Drains: Sathya. Type of Anesthesia:: General - Admit VTE Documentation VTE Present on Admission: No VTE Mechan Device Prophylaxis: SCD's VTE Pharm Prophylaxis ordered?: Yes
[2017-06-24] MEDS: HYDROmorphone 1 MG/ML Syringe IV ×3 (16:11→21:58)
[2017-06-24 16:34] LABS: Hemoglobin 9.3 g/dl (13.0-16.5)
[2017-06-24] MEDS: oxyCODONE 5 MG Tablet 10 MG PO ×2 (17:55→21:58)
[2017-06-24] MEDS: Lactated Ringers 1,000 ML 60 ML IV (19:04)
--- NOTE | 2017-06-24 19:59 | PCM.OPRPT ---
Report of Operation Date of Procedure: 06/24/17 Pre-Operative Diagnosis: 1. Nonhealing diabetic ulcer left plantar foot with infection. 2. Nonhealing diabetic ulcer left medial foot with infection. 3. Osteomyelitis. 4. Diabetes mellitus. 5. MRSA. 6. Charcot foot neuropathic osteoarthropathy. 7. Former smoker. 8. VRE. Post-Operative Diagnosis: Same. Surgery/Procedure Performed:: Left below knee amputation. Description of Surgical Findings:: 62 year old man who I have been caring for at the [facility] with nonhealing diabetic ulcers left foot with underlying osteomyelitis. He has been treated off and on in the past with IV antibiotics. He has had MRSA in the past. When the IV antibiotics stop, he develops a recurrent infection. His left operative debridement was on 05/30/17 where he underwent surgical preparation left plantar foot with incision and drainage and excisional debridement nonhealing MRSA diabetic ulcer (42 cm2) and partial ostectomy cuboid bone for osteomyelitis. Shortly after that surgery he was seen at the [facility] where continued redness and swelling and pain was seen despite being on IV Vancomycin. He was readmitted and is now on Daptomycin and Zosyn. Besides the MRSA, he also has VRE. It was determined after long discussion with the patient to proceed with amputation, below knee. Patient was informed of the risks and complications of the procedure including alternatives to surgery. These were discussed with him personally. He voices understanding and wishes to proceed. IV Fluids - 1200 ml. Urine Output - 700 ml. Total tourniquet time - 60 minutes. I used Zenon absorbable hemostat. Reference Number - [id number]. Lot Number - [id number]. Expiration - March 16, 2022. solderer production line: Tiny Mercado. Type of Anesthesia:: General Specimen's removed: 1. Left below knee amputation to Pathology. 2. Nonhealing infected MRSA diabetic ulcer soft tissue left plantar foot to Microbiology. 3. Nonhealing infected MRSA diabetic ulcer bone left plantar foot to Microbiology. Drains: Sathya. Estimated Blood Loss (mL): 800 ml. Fluids Replaced: 1900 ml (IV Fluids 1200 ml, and Urine Output 700 ml). Description of Procedure: Patient was taken to OR in supine position and was placed under general anesthesia. His left leg was prepped and draped in the usual fashion. His left foot dressing was left intact and a sterile stockinette will be placed over it. SCD was placed on the right leg for DVT prophylaxis. Perioperative antibiotics were given intravenously. A mcleod catheter was then placed. The anterior tibial tubercle was marked. A horizontal marking was made 13 cm distally. I then extended this marking posteriorly and created a posterior flap with a length of 13 cm. When the tibia is exposed, I will bhupinder it at 12.5 cm for the osteotomy. The fibula will be remove about 1.5 cm proximal to that. These markings were infiltrated with xylocaine with epinephrine. Prior to prepping the patient, a tourniquet was placed on the proximal thigh. I will use it if necessary to obtain hemostasis if there is a lot of calcification to the arterial system and it becomes difficult to obtain hemostasis without it. I try to minimize the tourniquet to minimize postop swelling pain. Also if I inflate the tourniquet, I elevate the leg and place gauze around the surgical area with my hands for compression. I don't like to use the Esmarch bandage in an infected extremity. When I got to the anterior tibia, a horizontal incision was made down to the bone. This horizontal incision was made at 12.5 cm from the anterior tibial tubercle. I then incised the anterior tibial muscle, the extensor hallucis longus muscle, and the extensor digitorum longus muscle. The anterior tibial vessels were seen and dissected and ligated with Number 2 Silk tie ligatures. The peroneal muscles were then incised laterally. I located the peroneal nerve and placed it on stretch. I incised the nerve and allowed it to retract proximally to minimize neuroma formation. This exposed the fibula. Using a periosteal elevator, I freed up the tibia. I then placed the gigli saw around the tibial at the level of the previous marking at 12.5 cm from the anterior tibial tubercle. The tibia was then incised. This made it a little easier to get exposure to the tibialis posterior muscle which was incised. The flexor digitorum longus muscle medially and the flexor hallucis longus muscle laterally were incised. This exposed the peroneal vessels laterally and the posterior tibial vessels medially. These arteries were dissected and ligated with Number 2 Silk tie ligatures. Because of the severity of the calcifications, it was difficult to get exposure of these vessels without tearing some perforators causing increased bleeding. Because it was difficult, I stopped the procedure and inflated the tourniquet to 300 mmHg. I then continued the case. The posterior tibial nerve was dissected free and placed on stretch and incised. This allowed the proximal end to retract proximally to minimize neuroma formation on the stump. I dissected the fibula with a periosteal elevator superiorly about 1.5 cm proximal to the tibial osteotomy. I used a bone cutter to incise the fibula. I then extended the skin incision posteriorly and created the posterior flap. I the gastrocnemius muscle from the soleus muscle. The remaining muscle fibers from the soleus muscle were incised as the distal leg was removed from the field. Before the end of the case, I will take some soft tissue and bone from the plantar ulcer and send to Microbiology for culture. The rest of the leg will be sent to Pathology. I tried to close the posterior flap and had trouble because the soleus muscle was larger than usual. Therefore the soleus muscle was incised thus exposing the gastrocnemius muscle. This thinned the flap enough that I was able to advance the flap anteriorly to close the stump. A size 15 Sathya drain was placed through a separate stab incision laterally and secured to the skin with 3-0 Nylon suture. The drain was used to drain the deeper wound over the bone and brought out into the subcutaneous tissue. Prior to closure of the stump, I beveled the tibia anteriorly with an osteotome and a mallet to smooth out the bone anteriorly. A rasp was used to smooth out the edges of the bone. I then released the tourniquet after 60 minutes. Hemostasis was obtained with electrocautery. Nothing needed to be ligated at this time. The wound was irrigated with saline. The flaps were viable with no evidence of vascular compromise. The fascia of the gastrocnemius muscle was then approximated to the fascia and periosteum with 2-0 Vicryl figure of eight interrupted sutures. I then sprayed Zenon absorbable hemostat into the wound to minimize seroma formation. The deeper subcutaneous tissue was approximated with 2-0 Vicry figure of eight interrupted sutures. The deep dermis and subcutaneous tissue was approximated with 2-0 Vicryl interrupted sutures. The skin was approximated with 3-0 Nylon vertical mattress interrupted sutures. Antibiotic ointment was applied to the suture line followed by Xeroform gauze and ABD pad followed by Kerlix gauze and a compression CONCHIS wrap. Patient tolerated the procedure well. He was sent to PACU in satisfactory condition. There was a fair amount of blood loss, about 800 ml. Therefore will check a Hgb postop. In anticipation of needing PRBC postop since his preop Hgb was 9.9, I will order a Type and Cross for 2 units. He will be sent upstairs for continued postop care. The drain will be removed in 2-3 weeks. The sutures will be removed in 3-[address] At which time will place a stump hazmat cdl driver in anticipation for the prosthesis. Grafts/Implants Used: None. - Complications None. - Admit VTE Documentation VTE Present on Admission: No VTE Mechan Device Prophylaxis: SCD's VTE Pharm Prophylaxis ordered?: Yes Code Visit Surgery Charges CPT - 94293-25 ICD-10 - L97.426, M86.172, E11.621, L02.612, A49.02, E11.610, Z87.891
[2017-06-24] MEDS: Piperacil/Tazobactam 3.375 GM/50 ML ML IV (22:05)
--- NOTE | 2017-06-24 22:48 | PCM.CONS.GEN ---
Problem List (1) Obstructive sleep apnea Status: Chronic (2) Hyperlipidemia Status: Chronic Qualifiers: Hyperlipidemia type: unspecified Qualified Code(s): E78.5 - Hyperlipidemia, unspecified (3) Chronic pain Status: Chronic Qualifiers: Chronic pain type: chronic pain syndrome Qualified Code(s): G89.4 - Chronic pain syndrome (4) Acute osteomyelitis of left foot Status: Acute (5) Non-pressure chronic ulcer of left heel and midfoot with bone involvement without evidence of necrosis Status: Acute (6) Non-pressure chronic ulcer of left heel and midfoot with muscle involvement without evidence of necrosis Status: Chronic (7) Hypersomnia Status: Chronic (8) Nocturnal hypoxemia Status: Chronic (9) 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 (14) Stasis dermatitis of both legs Status: Chronic (15) Neuropathy Status: Chronic Comment: secondary to diabetes (16) Morbid obesity Status: Chronic (17) Anemia Status: Chronic Qualifiers: Anemia type: unspecified type Qualified Code(s): D64.9 - Anemia, unspecified (18) Dyslipidemia Status: Chronic (19) Depression Status: Chronic Qualifiers: Depression Type: unspecified Qualified Code(s): F32.9 - Major depressive disorder, single episode, unspecified Reason for Consult Date of Consultation: 06/24/17 Reason for Consultation: Medical management History of Present Illness: The patient is a 62 y/o M w/ PMHx: Chronic normocytic anemia (Hgb baseline 10-11), Diabetes mellitus type II with Neuropathy/Uncontrolled, HTN, HLD, Obesity, GERD, Chronic pain syndrome, Morbid Obesity w/ recent history of acutely infected non-healing diabetic left foot ulcer/wound with chronic osteomyelitis despite surgery per Podiatry w/ 06/09/17 noted concerns upon evaluation at [facility] per Dr. Rodriguez thus re-admitted 06/09/17-06/12/17 for evaluation and IV abx therapy with ID evaluation, Podiatry evaluation as well as evaluation intermittent chest pain history, midsternal pressure with dyspnea associated at that time with unremarkable cardiac evaluation and negative stress testing, repeat Wound Cx w/ Acute Staph Aureus, MRSA and Enterococcus, maintained on IV vanc and zosyn-->transitioned per ID following culture sensitivities to Daptomycin and Zosyn with following improvement transition to TCU w/ continued IV abx therapy and planned re-admission for amputation per Dr. Rodriguez who now re-presents to the [facility] for planned L BKA. Patient underwent L BKA on 06/24/[address] Rodriguez. Per staff and patient there were no yael-operative events. Post-operatively he does not ongoing pain to the LLE and per review of records did not receive his baseline oral morphine regimen in the evening following OR. 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) Obstructive sleep apnea (Chronic) Hyperlipidemia (Chronic) Chronic pain (Chronic) Osteomyelitis (Chronic) Non-pressure chronic ulcer of left heel and midfoot with muscle involvement without evidence of necrosis (Chronic) Infection of left foot (Chronic) Hypersomnia (Chronic) Ulcer of midfoot with necrosis of muscle (Chronic) Nocturnal hypoxemia (Chronic) Abscess of left foot (Chronic) Diabetic ulcer of left foot with fat layer exposed (Chronic) Non-pressure chronic ulcer of left heel and midfoot with fat layer exposed (Chronic) 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 Venous insufficiency of both lower extremities (Chronic) S/P transmetatarsal amputation of foot (Chronic) 03/04/[address] 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) Hypertension (Chronic) Amputation of right foot with complication (Chronic) Type 2 diabetes mellitus with diabetic polyneuropathy (Chronic) Stasis dermatitis of both legs (Chronic) Sleep apnea (Chronic) CPAP 15 cm H20, 100% compliant Neuropathy (Chronic) secondary to diabetes Morbid obesity (Chronic) Anemia (Chronic) Dyslipidemia (Chronic) Left ventricular hypertrophy (Chronic) Chronic pain syndrome (Chronic) Depression (Chronic) Allergies cefepime Allergy (Verified 06/19/17 11:36) Hives lisinopril Allergy (Verified 06/19/17 11:36) cough sulfamethoxazole [From ] Allergy (Verified 06/19/17 11:36) turned red trimethoprim [From ] Allergy (Verified 06/19/17 11:36) turned red Home Medications: Ambulatory Orders Medication Instructions Recorded Insulin Detemir [Levemir FlexPen] 50 units SC BID 10/12/14 Citalopram [Celexa] 40 mg PO DAILY 11/15/14 Metformin HCl [Glucophage] 1,000 mg PO BIDCM 11/15/14 Losartan Potassium [Cozaar] 100 mg PO DAILY 06/05/16 buPROPion XL [Wellbutrin Xl] 150 mg PO DAILY 01/21/17 glimepiride 4 mg tablet 4 mg PO BID tab 01/31/17 Insulin Aspart [Novolog Flexpen] 15 units SC TIDCM 03/24/17 Triamterene/Hydrochlorothiazid 1 each PO DAILY 03/24/17 [Triamterene-Hctz 37.5-25 mg Cp] Gabapentin [Neurontin] 800 mg PO 4X/DAY 05/28/17 Naproxen [Naprosyn] 500 mg PO BID 05/28/17 Albuterol Aerosols [Ventolin 2.5 mg INHALATION Q4H PRN PRN 06/09/17 Aerosols] Insulin Aspart [Novolog Flexpen] See Protocol SC ACHS flexpen 06/12/17 Loperamide [Imodium] 2 mg PO Q2H PRN PRN capsule 06/12/17 Oxycodone [Oxyir] 10 mg PO Q4H PRN PRN 2 Days #10 tab 06/12/17 morphine SR tablet [Ms Contin] 15 mg PO TID 1 Days #3 tab 06/12/17 Acetaminophen [Tylenol Tablet] 1,000 mg PO Q8H PRN PRN 06/19/17 Atorvastatin Calcium [Lipitor] 40 mg PO QHS 06/19/17 Bisacodyl [Dulcolax] 10 mg PO DAILY PRN PRN 06/19/17 DAPTOmycin [Cubicin] 1,000 mg IV Q24H 06/19/17 Enoxaparin [Lovenox] 40 mg SC DAILY@1000 06/19/17 Glucerna Shake 120 ml PO 4X/DAY 06/19/17 Heparin Sodium,Porcine/Pf [Heparin 500 unit IV UD PRN 06/19/17 500 Unit/5 ml (100/ml)] Iron Polysaccharide Complex 150 mg PO DAILYCM 06/19/17 [Ferrex 150] Lactobacillus Acidophilus 1 tablet PO 4X/DAY 06/19/17 [Acidophilus] Mag Hydrox/Al Hydrox/Simeth 30 ml PO Q6H PRN PRN 06/19/17 [Mylanta II] Piperacil/Tazobactam [Zosyn] 3.375 gm IV Q8 06/19/17 Polyethylene Glycol 8000 17 gm PO DAILY 06/19/17 [Polyethylene Glycol] Senna/Docusate Sodium [Senokot-S, 2 tablet PO BID 06/19/17 Yael-Colace] Tuberculin,Purif.prot.deriv. 5 tu ID X1 06/19/17 [Tubersol, Aplisol, Ppd] Surgical History: - - Debridement left foot ulcer with versajet including necrotic muscle and widespread debridement plantar foot and incision and drainage left foot 01/24/17, Bone biopsy calcaneal cuboid bone left foot and excisional debridement left plantar foot ulceration 10/18/16, Right foot trans metatarsal amputation 03/04/16, Partial 4th toe amputation right foot at PIP joint 12/09/15, Excisional debridement including fascia left great toe 04/03/15, Right hallux amputation at MTP joint 12/29/14, microdiscectomy ?2, deviated septal repair, ulnar nerve repair, cholecystectomy, now L BKA 06/24/17. Psychiatric History: Depression Lives: Mcfp Smoking Status: Former smoker Tobacco Use: Non-smoker Alcohol: None Drugs: None - *Family History Maternal History Items: Cancer, Heart Disease Paternal History Items: Heart Disease Review of Systems Constitutional: Reports: Malaise, Weakness, Fatigue. Denies: Chills, Fever, Weight Change HEENT: Denies: Head Aches, Sinus Congestion, Sinus Drainage Cardiovascular: Denies: Chest Pain, Palpitations Respiratory: Denies: Cough, Shortness of breath at rest, Sputum production Gastrointestinal: Denies: Abdominal Pain, Nausea, Vomiting Genitourinary: Denies: Dysuria Musculoskeletal: Reports: Back Pain, Leg Pain. Denies: Joint Pain, Joint Tenderness Skin: Reports: Skin Changes. Denies: Rash, Wounds Neurological: Reports: Numbness. Denies: Focal weakness, Tingling Psychiatric: Reports: Anxiety, Depression. Denies: Homicidal Ideations, Suicidal Ideations Hematologic/ Lymphatic: Reports: Anemia. Denies: Easy Bruising, Easy Bleeding Subjective: Patient laying in bed, fatigued, notes ongoing pain. Objective: Physical Examination: General: awake, alert, oriented x 3 and cooperative, seated upright in the bed, fatigued appearing, notes ongoing pain. Skin: normal color, turgor, no icterus, cyanosis except LLE w/ dressing in place, CONCHIS wrap over, no drainage, s/p recent L BKA. HEENT: AT/NC, EOMI, PERRLA, mildly dry MM, no carotid bruits or JVD noted. Lungs: CTA bilaterally, moderate effort, moderate decrease BL bases, no rales, ronchi or wheezing. Heart: Regular rate and rhythm; no gallop, rub audible. Abdomen: soft, morbidly obese, NTTP, ND, normal BS, no HSM; however, habitus makes examination difficult. Extremities: no cyanosis, clubbing, s/p L BKA, see skin. Neurological: patient awake, alert, oriented x 3; cognitive function intact; pupils equally reactive to light and accomodation; cranial nerves II-XII grossly normal, moving all 4 extremities but limited given pain w/ recent OR L BKA, strength moderately to severe globally decreased. Psychiatric: affect appears fatigued, no acute evidence of depressive or anxiety feelings. - Physical Exam Vital Signs Temp Pulse Resp BP Pulse Ox 98.7 F 92 16 136/76 H 98 06/24/17 22:00 06/24/17 22:00 06/24/17 22:00 06/24/17 22:00 06/24/17 19:46 Oxygen Flow Rate (L/min) 2 Oxygen Delivery Method Room Air Weight: 324 lb Body Mass Index (BMI) 40.5 Finger Stick Blood Glucose 205 Intake and Output for Last 24 Hours 06/22/17 06/23/17 06/24/17 23:59 23:59 23:59 Intake Total 1600 / 1600 Output Total 100 / 100 Balance 1500 / 1500 Laboratory Tests Past 24 Hrs 06/24/17 06/24/17 16:15 16:15 Hgb 9.3 L Blood Type O POSITIVE Antibody Screen NEGATIVE Crossmatch See Detail Assessment/Plan The patient is a 62 y/o M w/ PMHx: Chronic normocytic anemia, Diabetes mellitus type II with Neuropathy/Uncontrolled, HTN, HLD, Obesity, GERD, Chronic pain syndrome, Morbid Obesity w/ recent history of acutely infected non-healing diabetic left foot ulcer/wound with chronic osteomyelitis despite surgery who re-presents to the [facility] on 06/24/17 for planned L BKA per Dr. Rodriguez. (1) Recent Staph Aureus, MRSA and Enterococcus Recurrent LLE Infected Non-healing Diabetic Wound w/ Cellulitis w/ Acute on Chronic Osteomyelitis: OR 06/24/[address] Rodriguez, maintained currently on IV daptomycin and zosyn; however, awaiting ID consultation, given BKA would expect discontinuation abx therapy but defer to ID, maintain on PRN pain regimen but add back scheduled oral morphine as otherwise would expect worsened pain given acute situation, bowel regimen, anti-emetic regimen PRN, will add therapies for discharge planning, CM consultation already in place. Fall precautions, position changes, dressing changes per Surgery discretion, Wound RN consulted. (4) Hypertension: Continue home regimen including losartan, triamterene, hydrochlorothiazide w/ hold parameters, PRN hydralazine. (5) Hyperlipidemia: Continue home statin regimen. (6) Fe Deficiency Anemia: Maintain on home Fe supplementation, trend CBC, baseline Hgb 10-11 although did during prior admission receive PRBC administration. (7) Diabetes mellitus type II w/ Neuropathy, Poorly controlled: Recent HgbA1c >9%, hold oral home regimen, continue home insulin regimen, ADA diet, accu checks w/ ISS, nutrition consulted for education, continue neurontin. (8) Morbid Obesity: Weight loss and lifestyle changes encouraged, nutrition consulted for education and teaching. (9) Anxiety and Depression: Maintain on home regimen Celexa and Wellbutrin. (10) Chronic Pain Syndrome: Maintain on fall precautions, position changes, therapies pending as noted above, home morphine SR and PRN oxycodone w/ breakthrough IV regimen. (11) PETRA: CPAP q HS. Will use [facility] one MARY gray notified and notes he will request delivery of his home device tomorrow. (12) GERD: PPI. (13) DVT Prophylaxis: SCDs, chemoprophylaxis lovenox per Surgery discretion given recent BKA. Code Visit Office Visits / Consults: [id number] IP Consult L5
--- NOTE | 2017-06-24 23:03 | CON.PCM_ITS ---
Problem List (1) Obstructive sleep apnea Status: Chronic (2) Hyperlipidemia Status: Chronic Qualifiers: Hyperlipidemia type: unspecified Qualified Code(s): E78.5 - Hyperlipidemia , unspecified (3) Chronic pain Status: Chronic Qualifiers: Chronic pain type: chronic pain syndrome Qualified Code(s): G89.4 - Chronic pain syndrome (4) Acute osteomyelitis of left foot Status: Acute (5) Non-pressure chronic ulcer of left heel and midfoot with bone involvement without evidence of necrosis Status: Acute (6) Non-pressure chronic ulcer of left heel and midfoot with muscle involvement without evidence of necrosis Status: Chronic (7) Hypersomnia Status: Chronic (8) Nocturnal hypoxemia Status: Chronic (9) 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 mellitus intermediate accountant insulin use: with half-way use Qualified Code( s): E11.42 - Type 2 diabetes mellitus with diabetic polyneuropathy; Z79.4 - [facility] (current) use of insulin (14) Stasis dermatitis of both legs Status: Chronic (15) Neuropathy Status: Chronic Comment: secondary to diabetes (16) Morbid obesity Status: Chronic (17) Anemia Status: Chronic Qualifiers: Anemia type: unspecified type Qualified Code(s): D64.9 - Anemia, unspecified (18) Dyslipidemia Status: Chronic (19) Depression Status: Chronic Qualifiers: Depression Type: unspecified Qualified Code(s): F32.9 - Major depressive disorder, single episode, unspecified Reason for Consult Date of Consultation: 06/24/17 Reason for Consultation: Medical management History of Present Illness: The patient is a 62 y/o M w/ PMHx: Chronic normocytic anemia (Hgb baseline 10-11 ), Diabetes mellitus type II with Neuropathy/Uncontrolled, HTN, HLD, Obesity, GERD, Chronic pain syndrome, Morbid Obesity w/ recent history of acutely infected non-healing diabetic left foot ulcer/wound with chronic osteomyelitis despite surgery per Podiatry w/ 06/09/17 noted concerns upon evaluation at [facility] per Dr. Rodriguez thus re-admitted 06/09/17-06/12/17 for evaluation and IV abx therapy with ID evaluation, Podiatry evaluation as well as evaluation intermittent chest pain history, midsternal pressure with dyspnea associated at that time with unremarkable cardiac evaluation and negative stress testing, repeat Wound Cx w/ Acute Staph Aureus, MRSA and Enterococcus, maintained on IV vanc and zosyn-->transitioned per ID following culture sensitivities to Daptomycin and Zosyn with following improvement transition to TCU w/ continued IV abx therapy and planned re-admission for amputation per Dr. Rodriguez who now re- presents to the [facility] for planned L BKA. Patient underwent L BKA on 06/24/[address] Rodriguez. Per staff and patient there were no yael-operative events. Post- operatively he does not ongoing pain to the LLE and per review of records did not receive his baseline oral morphine regimen in the evening following OR. 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) Obstructive sleep apnea (Chronic) Hyperlipidemia (Chronic) Chronic pain (Chronic) Osteomyelitis (Chronic) Non-pressure chronic ulcer of left heel and midfoot with muscle involvement without evidence of necrosis (Chronic) Infection of left foot (Chronic) Hypersomnia (Chronic) Ulcer of midfoot with necrosis of muscle (Chronic) Nocturnal hypoxemia (Chronic) Abscess of left foot (Chronic) Diabetic ulcer of left foot with fat layer exposed (Chronic) Non-pressure chronic ulcer of left heel and midfoot with fat layer exposed ( Chronic) 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 Venous insufficiency of both lower extremities (Chronic) S/P transmetatarsal amputation of foot (Chronic) 03/04/[address] 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) Hypertension (Chronic) Amputation of right foot with complication (Chronic) Type 2 diabetes mellitus with diabetic polyneuropathy (Chronic) Stasis dermatitis of both legs (Chronic) Sleep apnea (Chronic) CPAP 15 cm H20, 100% compliant Neuropathy (Chronic) secondary to diabetes Morbid obesity (Chronic) Anemia (Chronic) Dyslipidemia (Chronic) Left ventricular hypertrophy (Chronic) Chronic pain syndrome (Chronic) Depression (Chronic) Allergies cefepime Allergy (Verified 06/19/17 11:36) Hives lisinopril Allergy (Verified 06/19/17 11:36) cough sulfamethoxazole [From ] Allergy (Verified 06/19/17 11:36) turned red trimethoprim [From ] Allergy (Verified 06/19/17 11:36) turned red Home Medications: Ambulatory Orders Medication Instructions Recorded Insulin Detemir [Levemir FlexPen] 50 units SC BID 10/12/14 Citalopram [Celexa] 40 mg PO DAILY 11/15/14 Metformin HCl [Glucophage] 1,000 mg PO BIDCM 11/15/14 Losartan Potassium [Cozaar] 100 mg PO DAILY 06/05/16 buPROPion XL [Wellbutrin Xl] 150 mg PO DAILY 01/21/17 glimepiride 4 mg tablet 4 mg PO BID tab 01/31/17 Insulin Aspart [Novolog Flexpen] 15 units SC TIDCM 03/24/17 Triamterene/Hydrochlorothiazid 1 each PO DAILY 03/24/17 [Triamterene-Hctz 37.5-25 mg Cp] Gabapentin [Neurontin] 800 mg PO 4X/DAY 05/28/17 Naproxen [Naprosyn] 500 mg PO BID 05/28/17 Albuterol Aerosols [Ventolin 2.5 mg INHALATION Q4H PRN PRN 06/09/17 Aerosols] Insulin Aspart [Novolog Flexpen] See Protocol SC ACHS flexpen 06/12/17 Loperamide [Imodium] 2 mg PO Q2H PRN PRN capsule 06/12/17 Oxycodone [Oxyir] 10 mg PO Q4H PRN PRN 2 Days #10 tab 06/12/17 morphine SR tablet [Ms Contin] 15 mg PO TID 1 Days #3 tab 06/12/17 Acetaminophen [Tylenol Tablet] 1,000 mg PO Q8H PRN PRN 06/19/17 Atorvastatin Calcium [Lipitor] 40 mg PO QHS 06/19/17 Bisacodyl [Dulcolax] 10 mg PO DAILY PRN PRN 06/19/17 DAPTOmycin [Cubicin] 1,000 mg IV Q24H 06/19/17 Enoxaparin [Lovenox] 40 mg SC DAILY@1000 06/19/17 Glucerna Shake 120 ml PO 4X/DAY 06/19/17 Heparin Sodium,Porcine/Pf [Heparin 500 unit IV UD PRN 06/19/17 500 Unit/5 ml (100/ml)] Iron Polysaccharide Complex 150 mg PO DAILYCM 06/19/17 [Ferrex 150] Lactobacillus Acidophilus 1 tablet PO 4X/DAY 06/19/17 [Acidophilus] Mag Hydrox/Al Hydrox/Simeth 30 ml PO Q6H PRN PRN 06/19/17 [Mylanta II] Piperacil/Tazobactam [Zosyn] 3.375 gm IV Q8 06/19/17 Polyethylene Glycol 8000 17 gm PO DAILY 06/19/17 [Polyethylene Glycol] Senna/Docusate Sodium [Senokot-S, 2 tablet PO BID 06/19/17 Yael-Colace] Tuberculin,Purif.prot.deriv. 5 tu ID X1 06/19/17 [Tubersol, Aplisol, Ppd] Surgical History: - - Debridement left foot ulcer with versajet including necrotic muscle and widespread debridement plantar foot and incision and drainage left foot 01/24/17, Bone biopsy calcaneal cuboid bone left foot and excisional debridement left plantar foot ulceration 10/18/16, Right foot trans metatarsal amputation 03/04/16, Partial 4th toe amputation right foot at PIP joint 12/09/15, Excisional debridement including fascia left great toe 04/03/15, Right hallux amputation at MTP joint 12/29/14, microdiscectomy ?2, deviated septal repair, ulnar nerve repair, cholecystectomy, now L BKA 06/24/17. Psychiatric History: Depression Lives: Halfway Smoking Status: Former smoker Tobacco Use: Non-smoker Alcohol: None Drugs: None - *Family History Maternal History Items: Cancer, Heart Disease Paternal History Items: Heart Disease Review of Systems Constitutional: Reports: Malaise, Weakness, Fatigue. Denies: Chills, Fever, Weight Change HEENT: Denies: Head Aches, Sinus Congestion, Sinus Drainage Cardiovascular: Denies: Chest Pain, Palpitations Respiratory: Denies: Cough, Shortness of breath at rest, Sputum production Gastrointestinal: Denies: Abdominal Pain, Nausea, Vomiting Genitourinary: Denies: Dysuria Musculoskeletal: Reports: Back Pain, Leg Pain. Denies: Joint Pain, Joint Tenderness Skin: Reports: Skin Changes. Denies: Rash, Wounds Neurological: Reports: Numbness. Denies: Focal weakness, Tingling Psychiatric: Reports: Anxiety, Depression. Denies: Homicidal Ideations, Suicidal Ideations Hematologic/ Lymphatic: Reports: Anemia. Denies: Easy Bruising, Easy Bleeding Subjective: Patient laying in bed, fatigued, notes ongoing pain. Objective: Physical Examination: General: awake, alert, oriented x 3 and cooperative, seated upright in the bed, fatigued appearing, notes ongoing pain. Skin: normal color, turgor, no icterus, cyanosis except LLE w/ dressing in place , CONCHIS wrap over, no drainage, s/p recent L BKA. HEENT: AT/NC, EOMI, PERRLA, mildly dry MM, no carotid bruits or JVD noted. Lungs: CTA bilaterally, moderate effort, moderate decrease BL bases, no rales, ronchi or wheezing. Heart: Regular rate and rhythm; no gallop, rub audible. Abdomen: soft, morbidly obese, NTTP, ND, normal BS, no HSM; however, habitus makes examination difficult. Extremities: no cyanosis, clubbing, s/p L BKA, see skin. Neurological: patient awake, alert, oriented x 3; cognitive function intact; pupils equally reactive to light and accomodation; cranial nerves II-XII grossly normal, moving all 4 extremities but limited given pain w/ recent OR L BKA, strength moderately to severe globally decreased. Psychiatric: affect appears fatigued, no acute evidence of depressive or anxiety feelings. - Physical Exam Vital Signs Temp Pulse Resp BP Pulse Ox 98.7 F 92 16 136/76 H 98 06/24/17 22:00 06/24/17 22:00 06/24/17 22:00 06/24/17 22:00 06/24/17 19:46 Oxygen Flow Rate (L/min) 2 Oxygen Delivery Method Room Air Weight: 324 lb Body Mass Index (BMI) 40.5 Finger Stick Blood Glucose 205 Intake and Output for Last 24 Hours 06/22/17 06/23/17 06/24/17 23:59 23:59 23:59 Intake Total 1600 / 1600 Output Total 100 / 100 Balance 1500 / 1500 Laboratory Tests Past 24 Hrs 06/24/17 06/24/17 16:15 16:15 Hgb 9.3 L Blood Type O POSITIVE Antibody Screen NEGATIVE Crossmatch See Detail Assessment/Plan The patient is a 62 y/o M w/ PMHx: Chronic normocytic anemia, Diabetes mellitus type II with Neuropathy/Uncontrolled, HTN, HLD, Obesity, GERD, Chronic pain syndrome, Morbid Obesity w/ recent history of acutely infected non-healing diabetic left foot ulcer/wound with chronic osteomyelitis despite surgery who re-presents to the [facility] on 06/24/17 for planned L BKA per Dr. Rodriguez. (1) Recent Staph Aureus, MRSA and Enterococcus Recurrent LLE Infected Non- healing Diabetic Wound w/ Cellulitis w/ Acute on Chronic Osteomyelitis: OR L BKA per Dr. Rodriguez, maintained currently on IV daptomycin and zosyn; however , awaiting ID consultation, given BKA would expect discontinuation abx therapy but defer to ID, maintain on PRN pain regimen but add back scheduled oral morphine as otherwise would expect worsened pain given acute situation, bowel regimen, anti-emetic regimen PRN, will add therapies for discharge planning, CM consultation already in place. Fall precautions, position changes, dressing changes per Surgery discretion, Wound RN consulted. (4) Hypertension: Continue home regimen including losartan, triamterene, hydrochlorothiazide w/ hold parameters, PRN hydralazine. (5) Hyperlipidemia: Continue home statin regimen. (6) Fe Deficiency Anemia: Maintain on home Fe supplementation, trend CBC, baseline Hgb 10-11 although did during prior admission receive PRBC administration. (7) Diabetes mellitus type II w/ Neuropathy, Poorly controlled: Recent HgbA1c >9 %, hold oral home regimen, continue home insulin regimen, ADA diet, accu checks w/ ISS, nutrition consulted for education, continue neurontin. (8) Morbid Obesity: Weight loss and lifestyle changes encouraged, nutrition consulted for education and teaching. (9) Anxiety and Depression: Maintain on home regimen Celexa and Wellbutrin. (10) Chronic Pain Syndrome: Maintain on fall precautions, position changes, therapies pending as noted above, home morphine SR and PRN oxycodone w/ breakthrough IV regimen. (11) PETRA: CPAP q HS. Will use [facility] MARY gray notified and notes he will request delivery of his home device tomorrow. (12) GERD: PPI. (13) DVT Prophylaxis: SCDs, chemoprophylaxis lovenox per Surgery discretion given recent BKA. Code Visit Office Visits / Consults: [id number] IP Consult L5
[2017-06-24 23:28] LABS: Magnesium 2.2 mg/dL (1.6-2.6)
[2017-06-24] MEDS: morphine SR 15 MG Tablet PO (23:32)
[2017-06-25 02:40] VITALS: BP 140/82; PULSE 90; RESP 18; TEMP 36.7
[2017-06-25] MEDS: HYDROmorphone 1 MG/ML Syringe IV ×4 (02:40→20:01)
[2017-06-25] MEDS: 0.9% NaCl Peripheral Flush Adult/Peds IV (05:58)
[2017-06-25] MEDS: morphine SR 15 MG Tablet PO ×3 (05:58→22:19)
[2017-06-25] MEDS: Piperacil/Tazobactam 3.375 GM/50 ML ML IV ×3 (05:59→22:20)
[2017-06-25 06:11] LABS: Hematocrit 28.9 % (40-54); Hemoglobin 8.8 g/dl (13.0-16.5); Mean Corp Hgb Conc 30.4 g/gl (32-36); Mean Corpuscular Volume 88.7 fL (80-94); Mean Platelet Vol. 9.9 fl (6.2-12.0); Platelet Count 261 K/mm3 (150-450); RBC Distribution Width CV 15.7 % (11.6-14.6); RBC Distribution Width SD 49.5 fl (35.1-43.9); Red Blood Count 3.26 M/mm3 (4.6-6.2)
[2017-06-25 06:18] LABS: Scan Indicated on CBC? Y/N NO
[2017-06-25 06:22] LABS: Anion Gap 7 (5-15); BUN 28 mg/dL (7-18); BUN/Creat Ratio 20.6 RATIO (10-20); Calcium,Total 7.8 mg/dL (8.5-10.1); Chloride 103 mmol/L (98-107); Creatinine, Serum 1.36 mg/dL (0.70-1.30); EST Glomerular Filtration Rate 57 mL/min (>60); Est Glom Filt Rate - Afr Amer 69 mL/min (>60); Estimated Creatinine Clearance 68.17 ml/min; Glucose 145 mg/dL (74-106); Potassium 4.2 mmol/L (3.5-5.1); Prealbumin 25.1 mg/dL (20.0-40.0); Sodium Level 140 mmol/L (136-145)
[2017-06-25] MEDS: Enoxaparin 40 MG/0.4 ML Syringe SC (06:22)
[2017-06-25 06:30] LABS: Bedside Glucose 160 mg/dL (70-110)
[2017-06-25 07:50] VITALS: BP 147/93; PULSE 102; RESP 16; TEMP 36.7; O2SAT 98
[2017-06-25] MEDS: Gabapentin 800 MG Tablet PO ×4 (08:16→22:20)
[2017-06-25] MEDS: Pantoprazole Sodium 20 MG Tablet PO ×2 (08:16→22:20)
[2017-06-25] MEDS: Iron Polysaccharide Complex 150 MG CAPSULE PO (08:16)
[2017-06-25] MEDS: Naproxen 500 MG Tablet PO ×2 (08:16→16:46)
[2017-06-25] MEDS: Glucerna Shake 120 ML LIQUID PO ×3 (08:21→18:58)
--- NOTE | 2017-06-25 08:28 | PCM.PN.HOSP ---
Subjective: Patient is a 62-year-old gentleman who underwent left below-knee amputation by Dr. Rodriguez on 06/24/2017 on account of infected nonhealing diabetic wound with cellulitis and chronic osteomyelitis. Admitted to regular nursing floor following her procedure with consultation placed to the hospitalist service Objective: GENERAL: cooperative HEENT: Clear conjunctiva, NECK; supple, no distended JVD. CHEST: Clear to auscultation bilaterally, HEART: Regular S1 S2, no audible murmurs ABDOMEN: soft,normoactive bowel sounds, RECTAL: deferred EXTREMITIES: L BKA in surgical dressing PSYCHOLOGICAL TESTS SALES AGENT: Awake, no lateralizing signs. SKIN: As Described above Vitals/I&O's: Vital Signs Temp Pulse Resp BP Pulse Ox 98.0 F 90 18 140/82 H 98 06/25/17 02:40 06/25/17 02:40 06/25/17 02:40 06/25/17 02:40 06/24/17 19:46 Oxygen Flow Rate (L/min) 2 Oxygen Delivery Method Room Air Weight: 146.964 kg Body Mass Index (BMI) 40.5 Finger Stick Blood Glucose 205 Intake and Output for Last 24 Hours 06/23/17 06/24/17 06/25/17 23:59 23:59 23:59 Intake Total 2820 / 2820 891 / 891 Output Total 350 / 350 670 / 670 Balance 2470 / 2470 221 / 221 Laboratory Results 06/24/17 16:15: Hgb 9.3 L 06/24/17 16:15: Blood Type O POSITIVE, Antibody Screen NEGATIVE, Crossmatch See Detail 06/24/17 16:15: Magnesium 2.2 06/25/17 05:43: WBC 9.0, RBC 3.26 L, Hgb 8.8 L, Hct 28.9 L, MCV 88.7, MCH 27.0, MCHC 30.4 L, RDW 15.7 H, RDW Differential 49.5 H, Plt Count 261, MPV 9.9 06/25/17 05:43: Sodium 140, Potassium 4.2, Chloride 103, Carbon Dioxide 30.0, Anion Gap 7, BUN 28 H, Creatinine 1.36 H, Estim Creat Clear Calc 68.17, Est GFR (MDRD) Af Amer 69, Est GFR (MDRD) Non-Af 57 L, BUN/Creatinine Ratio 20.6 H, Glucose 145 H, Calcium 7.8 L, Prealbumin 25.1 06/25/17 06:24: POC Glucose 160 H Current Medications Al Hydroxide/Mg Hydroxide (Mylanta Ii) 30 ml PO Q6H PRN PRN PRN Reason: GERD Atorvastatin Calcium (Lipitor) 40 mg PO QHS [facility] Bisacodyl (Dulcolax) 10 mg PO DAILY PRN PRN PRN Reason: Constipation Bupropion HCl (Wellbutrin Xl) 150 mg PO DAILY [facility] Citalopram Hydrobromide (Celexa) 40 mg PO DAILY [facility] Diazepam (Valium) 5 mg PO 4X/DAY PRN PRN PRN Reason: SPASMS Docusate Sodium (Colace) 100 mg PO BID [facility] Last Admin: 06/24/17 21:58 Dose: Not Given Enoxaparin Sodium (Lovenox) 40 mg SC DAILY@0600 [facility] Last Admin: 06/25/17 06:22 Dose: 40 mg Gabapentin (Neurontin) 800 mg PO 4X/DAYCM [facility] Last Admin: 06/25/17 08:16 Dose: 800 mg Heparin Sodium (Beef Lung) (Heparin 500 Unit/5 Ml (100/Ml)) 500 unit IV UD PRN PRN Reason: HEPARIN FLUSH Hydralazine HCl (Apresoline Iv) 10 mg IV Q4H PRN PRN PRN Reason: SBP > 160 Hydromorphone HCl (Dilaudid Inj) 1 mg IV Q3H PRN PRN PRN Reason: SEVERE PAIN (6-10/10) Last Admin: 06/25/17 08:09 Dose: 1 mg Piperacillin Sod/Tazobactam Sod (Zosyn) 3.375 gm in 50 mls @ 12.5 mls/hr IV Q8 [facility] Last Admin: 06/25/17 05:59 Dose: 12.5 mls/hr Lactated Ringer's () 1,000 mls @ 60 mls/hr IV .[id number] [facility] Last Admin: 06/24/17 19:04 Dose: 60 mls/hr Daptomycin 1,000 mg/ Sodium (Chloride) 70 mls @ 100 mls/hr IV Q24 [facility] Insulin Aspart (Novolog Flexpen (Bkc)) 15 units SC TIDAC [facility] PRN Reason: Protocol Insulin Aspart (Novolog Flexpen (Bkc)) 0 units SC ACHS [facility] PRN Reason: Protocol Insulin Detemir (Levemir (Bk)) 50 units SC BID [facility] Lactobacillus Acidophilus (Acidophilus) 1 tablet PO 4X/DAY [facility] Loperamide HCl (Imodium) 2 mg PO Q2H PRN PRN PRN Reason: LOOSE STOOLS Losartan Potassium (Cozaar) 100 mg PO DAILY [facility] Morphine Sulfate (Ms Contin) 15 mg PO TID [facility] Last Admin: 06/25/17 05:58 Dose: 15 mg [facility] ([facility]ros[facility]) [facility] Last Admin: 06/25/17 08:16 Dose: 500 mg Nutritional Formula (Greg - [place] Flavor) 1 packet [facility] Last Admin: 06/24/17 17:36 Dose: Not Given Nutritional Formula (Lactose Free) (Glucerna Shake) 120 ml PO 4X/DAY [facility] Last Admin: 06/25/17 08:21 Dose: 120 ml Ondansetron HCl (Zofran) 4 mg IV Q6H PRN PRN PRN Reason: NAUSEA Oxycodone HCl (Oxyir) 10 mg PO Q4H PRN PRN PRN Reason: SEVERE PAIN (6-10/10) Last Admin: 06/24/17 21:58 Dose: 10 mg Pantoprazole Sodium (Protonix) 20 mg PO BID [facility] Last Admin: 06/25/17 08:16 Dose: 20 mg Polyethylene Glycol (Miralax) 17 gm PO DAILY [facility] Polysaccharide Iron Complex (Ferrex 150) 150 [facility] Last Admin: 06/25/17 08:16 Dose: 150 mg Promethazine HCl (Phenergan Tablet) 25 mg PO Q4H PRN PRN PRN Reason: NAUSEA/VOMITING Sodium Chloride () 5 - 30 ml IV UD PRN PRN Reason: SALINE FLUSH Last Admin: 06/25/17 05:58 Dose: 30 ml Sodium Chloride () 10 - 20 ml IV UD PRN PRN Reason: PICC FLUSH Temazepam (Restoril) 15 mg PO QHS PRN PRN PRN Reason: insomnia Triamterene/HCTZ (Dyazide (G)) 1 cap PO DAILY [facility] Medical Necessity - Tobacco Use Smoking Status: Former smoker Tobacco Use: Non-smoker Assessment/Plan Patient is a 62-year-old gentleman who underwent left below-knee amputation by Dr. Rodriguez on 06/24/2017 on account of infected nonhealing diabetic wound with cellulitis and chronic osteomyelitis. Admitted to regular nursing floor following her procedure with consultation placed to the hospitalist service 1. Status post left below-knee amputation by Dr. Rodriguez on 06/24/2017 on account of infected nonhealing diabetic wound with cellulitis and chronic osteomyelitis with MRSA and Enterococcus: Patient is on daptomycin and Zosyn with consultation placed to ID will defer antibiotic therapy to infectious disease 2. Hypertension-blood pressure controlled, home medications continued with dose adjustment as needed 3. 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 Managed with long-acting insulin with Accu-Cheks before meals and at bedtime with sliding scale coverage 4. Chronic pain syndrome 5. Obstructive sleep apnea patient is on CPAP at night 6. Depression with anxiety patient is on SSRI Celexa as well as Wellbutrin 7. Obesity with BMI of 40.5 weight loss advised 8. Anemia; secondary to anemia of chronic disorder monitoring H&H with plans to transfuse if patient becomes symptomatic or hemoglobin falls below 7 9. Dyslipidemia-patient is on statin therapy, continued at home dose 10. GERD on PPI 11. DVT prophylaxis on Lovenox Code Visit Inpatient E&M: 63618 Subs Hosp L3
--- NOTE | 2017-06-25 08:39 | PN_ITS ---
Subjective: Patient is a 62-year-old gentleman who underwent left below-knee amputation by Dr. Rodriguez on 06/24/2017 on account of infected nonhealing diabetic wound with cellulitis and chronic osteomyelitis. Admitted to regular nursing floor following her procedure with consultation placed to the hospitalist service Objective: GENERAL: cooperative HEENT: Clear conjunctiva, NECK; supple, no distended JVD. CHEST: Clear to auscultation bilaterally, HEART: Regular S1 S2, no audible murmurs ABDOMEN: soft,normoactive bowel sounds, RECTAL: deferred EXTREMITIES: L BKA in surgical dressing SALES COUNSELOR: Awake, no lateralizing signs. SKIN: As Described above Vitals/I&O's: Vital Signs Temp Pulse Resp BP Pulse Ox 98.0 F 90 18 140/82 H 98 06/25/17 02:40 06/25/17 02:40 06/25/17 02:40 06/25/17 02:40 06/24/17 19:46 Oxygen Flow Rate (L/min) 2 Oxygen Delivery Method Room Air Weight: 146.964 kg Body Mass Index (BMI) 40.5 Finger Stick Blood Glucose 205 Intake and Output for Last 24 Hours 06/23/17 06/24/17 06/25/17 23:59 23:59 23:59 Intake Total 2820 / 2820 891 / 891 Output Total 350 / 350 670 / 670 Balance 2470 / 2470 221 / 221 Laboratory Results 06/24/17 16:15: Hgb 9.3 L 06/24/17 16:15: Blood Type O POSITIVE, Antibody Screen NEGATIVE, Crossmatch See Detail 06/24/17 16:15: Magnesium 2.2 06/25/17 05:43: WBC 9.0, RBC 3.26 L, Hgb 8.8 L, Hct 28.9 L, MCV 88.7, MCH 27.0, MCHC 30.4 L, RDW 15.7 H, RDW Differential 49.5 H, Plt Count 261, MPV 9.9 06/25/17 05:43: Sodium 140, Potassium 4.2, Chloride 103, Carbon Dioxide 30.0, Anion Gap 7, BUN 28 H, Creatinine 1.36 H, Estim Creat Clear Calc 68.17, Est GFR (MDRD) Af Amer 69, Est GFR (MDRD) Non-Af 57 L, BUN/Creatinine Ratio 20.6 H, Glucose 145 H, Calcium 7.8 L, Prealbumin 25.1 06/25/17 06:24: POC Glucose 160 H Current Medications Al Hydroxide/Mg Hydroxide (Mylanta Ii) 30 ml PO Q6H PRN PRN PRN Reason: GERD Atorvastatin Calcium (Lipitor) 40 mg PO QHS [facility] Bisacodyl (Dulcolax) 10 mg PO DAILY PRN PRN PRN Reason: Constipation Bupropion HCl (Wellbutrin Xl) 150 mg PO DAILY [facility] Citalopram Hydrobromide (Celexa) 40 mg PO DAILY [facility] Diazepam (Valium) 5 mg PO 4X/DAY PRN PRN PRN Reason: SPASMS Docusate Sodium (Colace) 100 mg PO BID [facility] Last Admin: 06/24/17 21:58 Dose: Not Given Enoxaparin Sodium (Lovenox) 40 mg SC DAILY@0600 [facility] Last Admin: 06/25/17 06:22 Dose: 40 mg Gabapentin (Neurontin) 800 mg PO 4X/DAYCM [facility] Last Admin: 06/25/17 08:16 Dose: 800 mg Heparin Sodium (Beef Lung) (Heparin 500 Unit/5 Ml (100/Ml)) 500 unit IV UD PRN PRN Reason: HEPARIN FLUSH Hydralazine HCl (Apresoline Iv) 10 mg IV Q4H PRN PRN PRN Reason: SBP > 160 Hydromorphone HCl (Dilaudid Inj) 1 mg IV Q3H PRN PRN PRN Reason: SEVERE PAIN (6-10/10) Last Admin: 06/25/17 08:09 Dose: 1 mg Piperacillin Sod/Tazobactam Sod (Zosyn) 3.375 gm in 50 mls @ 12.5 mls/hr IV Q8 [facility] Last Admin: 06/25/17 05:59 Dose: 12.5 mls/hr Lactated Ringer's () 1,000 mls @ 60 mls/hr IV .[id number] [facility] Last Admin: 06/24/17 19:04 Dose: 60 mls/hr Daptomycin 1,000 mg/ Sodium (Chloride) 70 mls @ 100 mls/hr IV Q24 [facility] Insulin Aspart (Novolog Flexpen (Bkc)) 15 units SC TIDAC [facility] PRN Reason: Protocol Insulin Aspart (Novolog Flexpen (Bkc)) 0 units SC ACHS [facility] PRN Reason: Protocol Insulin Detemir (Levemir (Bk)) 50 units SC BID [facility] Lactobacillus Acidophilus (Acidophilus) 1 tablet PO 4X/DAY [facility] Loperamide HCl (Imodium) 2 mg PO Q2H PRN PRN PRN Reason: LOOSE STOOLS Losartan Potassium (Cozaar) 100 mg PO DAILY [facility] Morphine Sulfate (Ms Contin) 15 mg PO TID [facility] Last Admin: 06/25/17 05:58 Dose: 15 mg [facility]ros[facility]) [facility] Last Admin: 06/25/17 08:16 Dose: 500 mg Nutritional Formula (Greg - [place] Flavor) [facility] Last Admin: 06/24/17 17:36 Dose: Not Given Nutritional Formula (Lactose Free) (Glucerna Shake) 120 ml PO 4X/DAY [facility] Last Admin: 06/25/17 08:21 Dose: 120 ml Ondansetron HCl (Zofran) 4 mg IV Q6H PRN PRN PRN Reason: NAUSEA Oxycodone HCl (Oxyir) 10 mg PO Q4H PRN PRN PRN Reason: SEVERE PAIN (6-10/10) Last Admin: 06/24/17 21:58 Dose: 10 mg Pantoprazole Sodium (Protonix) 20 mg PO BID [facility] Last Admin: 06/25/17 08:16 Dose: 20 mg Polyethylene Glycol (Miralax) 17 gm PO DAILY [facility] Polysaccharide Iron Complex (Ferrex 150) 150 [facility] Last Admin: 06/25/17 08:16 Dose: 150 mg Promethazine HCl (Phenergan Tablet) 25 mg PO Q4H PRN PRN PRN Reason: NAUSEA/VOMITING Sodium Chloride () 5 - 30 ml IV UD PRN PRN Reason: SALINE FLUSH Last Admin: 06/25/17 05:58 Dose: 30 ml Sodium Chloride () 10 - 20 ml IV UD PRN PRN Reason: PICC FLUSH Temazepam (Restoril) 15 mg PO QHS PRN PRN PRN Reason: insomnia Triamterene/HCTZ (Dyazide (G)) 1 cap PO DAILY [facility] Medical Necessity - Tobacco Use Smoking Status: Former smoker Tobacco Use: Non-smoker Assessment/Plan Patient is a 62-year-old gentleman who underwent left below-knee amputation by Dr. Rodriguez on 06/24/2017 on account of infected nonhealing diabetic wound with cellulitis and chronic osteomyelitis. Admitted to regular nursing floor following her procedure with consultation placed to the hospitalist service 1. Status post left below-knee amputation by Dr. Rodriguez on 06/24/2017 on account of infected nonhealing diabetic wound with cellulitis and chronic osteomyelitis with MRSA and Enterococcus: Patient is on daptomycin and Zosyn with consultation placed to ID will defer antibiotic therapy to infectious disease 2. Hypertension-blood pressure controlled, home medications continued with dose adjustment as needed 3. 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 Managed with long-acting insulin with Accu-Cheks before meals and at bedtime with sliding scale coverage 4. Chronic pain syndrome 5. Obstructive sleep apnea patient is on CPAP at night 6. Depression with anxiety patient is on SSRI Celexa as well as Wellbutrin 7. Obesity with BMI of 40.5 weight loss advised 8. Anemia; secondary to anemia of chronic disorder monitoring H&H with plans to transfuse if patient becomes symptomatic or hemoglobin falls below 7 9. Dyslipidemia-patient is on statin therapy, continued at home dose 10. GERD on PPI 11. DVT prophylaxis on Lovenox Code Visit Inpatient E&M: 18636 Subs Hosp L3
--- NOTE | 2017-06-25 09:20 | NURSING ---
wound photo: left leg s/p BKA
--- NOTE | 2017-06-25 10:13 | CASEMGMT ---
Social Work Note SW met with pt to complete initial assessment and to determine discharge needs. Pt recently discharged from TCU to get amputation. SW introduced self and role at [facility]. Pt states that he would like to go home with home health at discharge. SW explained to pt that home home with senior living and PT/OT could be set up for pt. Pt states that he has been away from home too long and wants to go home. SW informed pt that Dr. Rodriguez put in consult for pt for home health and DME including crutches and wheelchair. Pt states that he also needs a sturdier walker and bigger bedside commode. Pt states that he is interested in [facility]. SW updated RN BRYN Lux of this. Plan: Home at discharge with home health care Conchita Elliott MSW, NETWORK ADMINISTRATOR
[2017-06-25] MEDS: oxyCODONE 5 MG Tablet 10 MG PO ×2 (10:48→16:46)
[2017-06-25] MEDS: buPROPion (XL) 150 MG TABLET.XL PO (10:49)
[2017-06-25] MEDS: Losartan Potassium 100 MG Tablet PO (10:49)
[2017-06-25] MEDS: Triamterene 37.5MG/Hctz 25MG Capsule 1 CAP PO (10:49)
[2017-06-25] MEDS: Citalopram 40 MG TABLET PO (10:49)
[2017-06-25] MEDS: Lactated Ringers 1,000 ML 60 ML IV (11:09)
[2017-06-25 11:15] LABS: Bedside Glucose 324 mg/dL (70-110)
--- NOTE | 2017-06-25 12:11 | PN.ID_ITS ---
Subjective: C/o significant pain in leg post-op. No fever, no n/v. - Physical Exam General: Alert, Cooperative, No apparent distress Lungs: Clear to auscultation, Normal air movement Cardiovascular: Regular rate, Regular Rhythm Abdomen: Soft, Non Tender, Non-Distended Skin: Incision - leg wrapped s/p LLE bka. Vital Signs Temp Pulse Resp BP Pulse Ox 98.0 F 102 H 16 147/93 H 98 06/25/17 07:50 06/25/17 07:50 06/25/17 07:50 06/25/17 07:50 06/25/17 07:50 Oxygen Flow Rate (L/min) 2 Oxygen Delivery Method Room Air Weight: 146.646 kg Body Mass Index (BMI) 40.5 Finger Stick Blood Glucose 205 Intake and Output for Last 24 Hours 06/23/17 06/24/17 06/25/17 23:59 23:59 23:59 Intake Total 2820 / 2820 891 / 891 Output Total 350 / 350 718 / 718 Balance 2470 / 2470 173 / 173 Microbiology Past 72 Hours 06/24/17 15:19 Wound Culture - Preliminary Tissue - Left Foot Gram positive organism 06/24/17 15:19 Wound Culture - Preliminary Tissue - Left Foot Gram positive organism Laboratory Tests Past 24 Hrs 06/24/17 06/24/17 06/24/17 16:15 16:15 16:15 WBC RBC Hgb 9.3 L Hct MCV MCH MCHC RDW RDW Differential Plt Count MPV Sodium Potassium Chloride Carbon Dioxide Anion Gap BUN Creatinine Estim Creat Clear Calc Est GFR (MDRD) Af Amer Est GFR (MDRD) Non-Af BUN/Creatinine Ratio Glucose Calcium Magnesium 2.2 Prealbumin Blood Type O POSITIVE Antibody Screen NEGATIVE Crossmatch See Detail 06/25/17 06/25/17 05:43 05:43 WBC 9.0 RBC 3.26 L Hgb 8.8 L Hct 28.9 L MCV 88.7 MCH 27.0 MCHC 30.4 L RDW 15.7 H RDW Differential 49.5 H Plt Count 261 MPV 9.9 Sodium 140 Potassium 4.2 Chloride 103 Carbon Dioxide 30.0 Anion Gap 7 BUN 28 H Creatinine 1.36 H Estim Creat Clear Calc 68.17 Est GFR (MDRD) Af Amer 69 Est GFR (MDRD) Non-Af 57 L BUN/Creatinine Ratio 20.6 H Glucose 145 H Calcium 7.8 L Magnesium Prealbumin 25.1 Blood Type Antibody Screen Crossmatch POC Glucose 06/25/17 06/25/17 10:55 06:24 POC Glucose 324 H 160 H Medical Necessity - Tobacco Use Smoking Status: Former smoker Tobacco Use: Non-smoker Route of nutrition/ use of supplements: [] Nutritional Intake: [] IV Site: [] Tam Catheter: [] - Assessment/Plan Antibiotics: [] Assessment/Plan: [] 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 Rodriguez. Surg cx of foot showing GPC. Continue dapto/zosyn for short course post -op as long as surgical margins are clear of infection. Will follow.
[2017-06-25] MEDS: diazePAM 5 MG Tablet PO ×3 (12:34→22:19)
--- NOTE | 2017-06-25 13:01 | CASEMGMT ---
Social Work Note RANDY placed a call to Sahra with [facility] to see if they are able to accept pt. Per Sahra they will be able to accept but she has to check about pt's insurance. RANDY will continue to follow to assist with discharge planning. Plan: Home with C Conchita MAJOR, UNDERWRITING MANAGER
[2017-06-25 14:45] VITALS: BP 124/62; PULSE 85; RESP 18; TEMP 37.3; O2SAT 95
[2017-06-25 15:21] LABS: Bedside Glucose 228 mg/dL (70-110)
[2017-06-25 15:21] LABS: Bedside Glucose 206 mg/dL (70-110)
--- NOTE | 2017-06-25 15:33 | NURSING ---
when pt is awake, O2 saturation ranges between 94-98%. after pain medication and when he falls asleep, O2 drops to 88%.
[2017-06-25 17:00] LABS: Bedside Glucose 125 mg/dL (70-110)
--- NOTE | 2017-06-25 19:59 | OP.PCM_ITS ---
Report of Operation Date of Procedure: 06/24/17 Pre-Operative Diagnosis: 1. Nonhealing diabetic ulcer left plantar foot with infection. 2. Nonhealing diabetic ulcer left medial foot with infection. 3. Osteomyelitis. 4. Diabetes mellitus. 5. MRSA. 6. Charcot foot neuropathic osteoarthropathy. 7. Former smoker. 8. VRE. Post-Operative Diagnosis: Same. Surgery/Procedure Performed:: Left below knee amputation. Description of Surgical Findings:: 62 year old man who I have been caring for at the [facility] with nonhealing diabetic ulcers left foot with underlying osteomyelitis. He has been treated off and on in the past with IV antibiotics. He has had MRSA in the past. When the IV antibiotics stop, he develops a recurrent infection. His left operative debridement was on 05/30/17 where he underwent surgical preparation left plantar foot with incision and drainage and excisional debridement nonhealing MRSA diabetic ulcer (42 cm2) and partial ostectomy cuboid bone for osteomyelitis. Shortly after that surgery he was seen at the [facility] where continued redness and swelling and pain was seen despite being on IV Vancomycin. He was readmitted and is now on Daptomycin and Zosyn. Besides the MRSA, he also has VRE. It was determined after long discussion with the patient to proceed with amputation, below knee. Patient was informed of the risks and complications of the procedure including alternatives to surgery. These were discussed with him personally. He voices understanding and wishes to proceed. IV Fluids - 1200 ml. Urine Output - 700 ml. Total tourniquet time - 60 minutes. I used Zenon absorbable hemostat. Reference Number - [id number]. Lot Number - [id number]. Expiration - March 16, 2022. batch tank controller: Tiny Mercado. Type of Anesthesia:: General Specimen's removed: 1. Left below knee amputation to Pathology. 2. Nonhealing infected MRSA diabetic ulcer soft tissue left plantar foot to Microbiology. 3. Nonhealing infected MRSA diabetic ulcer bone left plantar foot to Microbiology. Drains: Sathya. Estimated Blood Loss (mL): 800 ml. Fluids Replaced: 1900 ml (IV Fluids 1200 ml, and Urine Output 700 ml). Description of Procedure: Patient was taken to OR in supine position and was placed under general anesthesia. His left leg was prepped and draped in the usual fashion. His left foot dressing was left intact and a sterile stockinette will be placed over it. SCD was placed on the right leg for DVT prophylaxis. Perioperative antibiotics were given intravenously. A mcleod catheter was then placed. The anterior tibial tubercle was marked. A horizontal marking was made 13 cm distally. I then extended this marking posteriorly and created a posterior flap with a length of 13 cm. When the tibia is exposed, I will bhupinder it at 12.5 cm for the osteotomy. The fibula will be remove about 1.5 cm proximal to that. These markings were infiltrated with xylocaine with epinephrine. Prior to prepping the patient, a tourniquet was placed on the proximal thigh. I will use it if necessary to obtain hemostasis if there is a lot of calcification to the arterial system and it becomes difficult to obtain hemostasis without it. I try to minimize the tourniquet to minimize postop swelling pain. Also if I inflate the tourniquet, I elevate the leg and place gauze around the surgical area with my hands for compression. I don't like to use the Esmarch bandage in an infected extremity. When I got to the anterior tibia, a horizontal incision was made down to the bone. This horizontal incision was made at 12.5 cm from the anterior tibial tubercle. I then incised the anterior tibial muscle, the extensor hallucis longus muscle, and the extensor digitorum longus muscle. The anterior tibial vessels were seen and dissected and ligated with Number 2 Silk tie ligatures. The peroneal muscles were then incised laterally. I located the peroneal nerve and placed it on stretch. I incised the nerve and allowed it to retract proximally to minimize neuroma formation. This exposed the fibula. Using a periosteal elevator, I freed up the tibia. I then placed the gigli saw around the tibial at the level of the previous marking at 12.5 cm from the anterior tibial tubercle. The tibia was then incised. This made it a little easier to get exposure to the tibialis posterior muscle which was incised. The flexor digitorum longus muscle medially and the flexor hallucis longus muscle laterally were incised. This exposed the peroneal vessels laterally and the posterior tibial vessels medially. These arteries were dissected and ligated with Number 2 Silk tie ligatures. Because of the severity of the calcifications , it was difficult to get exposure of these vessels without tearing some perforators causing increased bleeding. Because it was difficult, I stopped the procedure and inflated the tourniquet to 300 mmHg. I then continued the case. The posterior tibial nerve was dissected free and placed on stretch and incised. This allowed the proximal end to retract proximally to minimize neuroma formation on the stump. I dissected the fibula with a periosteal elevator superiorly about 1.5 cm proximal to the tibial osteotomy. I used a bone cutter to incise the fibula. I then extended the skin incision posteriorly and created the posterior flap. I the gastrocnemius muscle from the soleus muscle. The remaining muscle fibers from the soleus muscle were incised as the distal leg was removed from the field. Before the end of the case, I will take some soft tissue and bone from the plantar ulcer and send to Microbiology for culture. The rest of the leg will be sent to Pathology. I tried to close the posterior flap and had trouble because the soleus muscle was larger than usual. Therefore the soleus muscle was incised thus exposing the gastrocnemius muscle. This thinned the flap enough that I was able to advance the flap anteriorly to close the stump. A size 15 Sathya drain was placed through a separate stab incision laterally and secured to the skin with 3 -0 Nylon suture. The drain was used to drain the deeper wound over the bone and brought out into the subcutaneous tissue. Prior to closure of the stump, I beveled the tibia anteriorly with an osteotome and a mallet to smooth out the bone anteriorly. A rasp was used to smooth out the edges of the bone. I then released the tourniquet after 60 minutes. Hemostasis was obtained with electrocautery. Nothing needed to be ligated at this time. The wound was irrigated with saline. The flaps were viable with no evidence of vascular compromise. The fascia of the gastrocnemius muscle was then approximated to the fascia and periosteum with 2-0 Vicryl figure of eight interrupted sutures. I then sprayed Zenon absorbable hemostat into the wound to minimize seroma formation. The deeper subcutaneous tissue was approximated with 2-0 Vicry figure of eight interrupted sutures. The deep dermis and subcutaneous tissue was approximated with 2-0 Vicryl interrupted sutures. The skin was approximated with 3-0 Nylon vertical mattress interrupted sutures. Antibiotic ointment was applied to the suture line followed by Xeroform gauze and ABD pad followed by Kerlix gauze and a compression CONCHIS wrap. Patient tolerated the procedure well. He was sent to PACU in satisfactory condition. There was a fair amount of blood loss, about 800 ml. Therefore will check a Hgb postop. In anticipation of needing PRBC postop since his preop Hgb was 9.9, I will order a Type and Cross for 2 units. He will be sent upstairs for continued postop care. The drain will be removed in 2-3 weeks. The sutures will be removed in 3-[address] At [address] time will place a stump front office associate in anticipation for the prosthesis. Grafts/Implants Used: None. - Complications None. - Admit VTE Documentation VTE Present on Admission: No VTE Mechan Device Prophylaxis: SCD's VTE Pharm Prophylaxis ordered?: Yes Code Visit Surgery Charges CPT - 04479-17 ICD-10 - L97.426, M86.172, E11.621, L02.612, A49.02, E11.610, Z87.891
[2017-06-25 20:00] VITALS: BP 125/60; PULSE 92; RESP 18; TEMP 37.4; O2SAT 97
--- NOTE | 2017-06-25 20:28 | PCM.PN.SRG ---
Subjective: Postop #1 Patient complains of a lot of spasm pain and burning nerve pain. - Physical Exam General: Alert, Oriented x3 HEENT: PERRLA, EOMI Neck: Supple Lungs: Clear to auscultation Cardiovascular: Regular rate, Regular Rhythm Abdomen: Soft, Non-Distended Skin: Incision - stump incision dry and intact. Stump is soft. Mild swelling present. No evidence hematoma. Neurological: Cranial nerves II-XII grossly intact Psych/Mental Status: Normal Affect, Appropriate Vital Signs Temp Pulse Resp BP Pulse Ox 99.2 F H 85 18 124/62 H 95 06/25/17 14:45 06/25/17 14:45 06/25/17 14:45 06/25/17 14:45 06/25/17 14:45 Oxygen Flow Rate (L/min) 2 Oxygen Delivery Method Nasal Cannula Weight: 323 lb 4.785 oz Body Mass Index (BMI) 40.5 Finger Stick Blood Glucose 205 Intake and Output for Last 24 Hours 06/23/17 06/24/17 06/25/17 23:59 23:59 23:59 Intake Total 2820 / 2820 4073 / 4073 Output Total 350 / 350 2828 / 2828 Balance 2470 / 2470 1245 / 1245 Drainage 50 ml yesterday, 178 ml today. Microbiology Past 72 Hours 06/24/17 15:19 Gram Stain - Final Tissue - Left Foot Wound Culture - Preliminary Gram positive organism 06/24/17 15:19 Gram Stain - Final Tissue - Left Foot Wound Culture - Preliminary Gram positive organism Pathology - pending. Laboratory Tests Past 24 Hrs 06/24/17 06/25/17 06/25/17 16:15 05:43 05:43 WBC 9.0 RBC 3.26 L Hgb 8.8 L Hct 28.9 L MCV 88.7 MCH 27.0 MCHC 30.4 L RDW 15.7 H RDW Differential 49.5 H Plt Count 261 MPV 9.9 Sodium 140 Potassium 4.2 Chloride 103 Carbon Dioxide 30.0 Anion Gap 7 BUN 28 H Creatinine 1.36 H Estim Creat Clear Calc 68.17 Est GFR (MDRD) Af Amer 69 Est GFR (MDRD) Non-Af 57 L BUN/Creatinine Ratio 20.6 H Glucose 145 H Calcium 7.8 L Magnesium 2.2 Prealbumin 25.1 POC Glucose 05/11/0406/25/17 06/25/17 16:49 10:55 06:24 POC Glucose 125 H 324 H 160 H 06/24/17 06/24/17 20:00 16:49 POC Glucose 228 H 206 H Medical Necessity - Tobacco Use Smoking Status: Former smoker Tobacco Use: Non-smoker Assessment/Plan 1. Nonhealing diabetic ulcer left plantar foot with infection. 2. Nonhealing diabetic ulcer left medial foot with infection. 3. Osteomyelitis. 4. Diabetes mellitus. 5. MRSA. 6. Charcot foot neuropathic osteoarthropathy. 7. Former smoker. 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 10. Anemia of chronic disease, acute on chronic. Patient complains of a lot of spasm pain and burning nerve pain. Incision is dry and intact. Stump is soft. Increase Valium and Neurontin. Operative cultures are pending. Pathology is pending. On Daptomycin and Zosyn. Prealbumin was 25.1. Encourage nutritional supplementation with protein to help the healing process. Hgb decreased from preop of 9.9 to 9.3 right after surgery to 8.8 this morning. He has anemia of chronic disease, acute on chronic. He had some moderate blood loss during the surgery on 800 ml. He also has IV dilution contributing to the anemia as there is no ongoing evidence of bleeding in the stump. He is positive 3700 ml on his I's/O's. Will continue to monitor. If it dips below 8, will need PRBC. OT/PT is working with him with transferring. He would benefit from going to an ECF. Evaluation TCU at the present time since that is where he came from for the amputation surgery.
[2017-06-25 22:15] VITALS: BP 128/66; PULSE 85; RESP 18; TEMP 37.6; O2SAT 96
[2017-06-25] MEDS: Gabapentin 400 MG Capsule PO (22:20)
[2017-06-25] MEDS: Atorvastatin Calcium 40 MG Tablet PO (22:20)
[2017-06-25 23:10] LABS: Bedside Glucose 161 mg/dL (70-110)
[2017-06-26 02:40] VITALS: BP 131/69; PULSE 81; RESP 18; TEMP 36.3; O2SAT 96
[2017-06-26] MEDS: diazePAM 5 MG Tablet PO ×6 (02:41→22:30)
[2017-06-26] MEDS: Lactated Ringers 1,000 ML 60 ML IV ×2 (02:42→22:28)
[2017-06-26] MEDS: Piperacil/Tazobactam 3.375 GM/50 ML ML IV ×3 (06:35→22:29)
[2017-06-26] MEDS: morphine SR 15 MG Tablet PO ×3 (06:35→22:29)
[2017-06-26] MEDS: Enoxaparin 40 MG/0.4 ML Syringe SC (06:35)
[2017-06-26 08:05] LABS: Bedside Glucose 194 mg/dL (70-110)
--- NOTE | 2017-06-26 08:20 | PN_ITS ---
Subjective: Patient seen complains of significant pain in his stump rating pain at 9 out of 10. Objective: GENERAL: cooperative HEENT: Clear conjunctiva, NECK; supple, no distended JVD. 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 SKIN: As Described above Vitals/I&O's: Vital Signs Temp Pulse Resp BP Pulse Ox 97.4 F L 81 18 131/69 H 96 06/26/17 02:40 06/26/17 02:40 06/26/17 02:40 06/26/17 02:40 06/26/17 02:40 Oxygen Flow Rate (L/min) 2 Oxygen Delivery Method Room Air Weight: 146.646 kg Body Mass Index (BMI) 40.5 Finger Stick Blood Glucose 205 Intake and Output for Last 24 Hours 06/24/17 06/25/17 06/26/17 23:59 23:59 23:59 Intake Total 2820 / 2820 5081 / 5081 492 / 492 Output Total 350 / 350 3503 / 3503 2009 Balance 2470 / 2470 1578 / 1578 -1518 / -1518 Microbiology Past 72 Hours 06/24/17 15:19 Tissue - Left Foot Gram Stain - Final 06/24/17 15:19 Tissue - Left Foot Wound Culture - Preliminary Gram positive organism 06/24/17 15:19 Tissue - Left Foot Gram Stain - Final 06/24/17 15:19 Tissue - Left Foot Wound Culture - Preliminary Gram positive organism Laboratory Results 06/24/17 16:49: POC Glucose 206 H 06/24/17 20:00: POC Glucose 228 H 06/25/17 10:55: POC Glucose 324 H 06/25/17 16:49: POC Glucose 125 H 06/25/17 22:17: POC Glucose 161 H 06/26/17 07:48: POC Glucose 194 H Current Medications Al Hydroxide/Mg Hydroxide (Mylanta Ii) 30 ml PO Q6H PRN PRN PRN Reason: GERD Atorvastatin Calcium (Lipitor) 40 mg PO QHS [facility] Last Admin: 06/25/17 22:20 Dose: 40 mg Bisacodyl (Dulcolax) 10 mg PO DAILY PRN PRN PRN Reason: Constipation Bupropion HCl (Wellbutrin Xl) 150 mg PO DAILY [facility] Last Admin: 06/25/17 10:49 Dose: 150 mg Citalopram Hydrobromide (Celexa) 40 mg PO DAILY [facility] Last Admin: 06/25/17 10:49 Dose: 40 mg Diazepam (Valium) 5 - 10 mg PO Q4 [facility] Last Admin: 06/26/17 06:36 Dose: 5 mg Docusate Sodium (Colace) 100 mg PO BID [facility] Last Admin: 06/25/17 22:20 Dose: Not Given Enoxaparin Sodium (Lovenox) 40 mg SC DAILY@0600 [facility] Last Admin: 06/26/17 06:35 Dose: 40 mg Gabapentin (Neurontin) 800 mg PO 4X/DAYCM [facility] Last Admin: 06/25/17 22:20 Dose: 800 mg Gabapentin (Neurontin) 400 mg PO QHS [facility] Last Admin: 06/25/17 22:20 Dose: 400 mg Heparin Sodium (Beef Lung) (Heparin 500 Unit/5 Ml (100/Ml)) 500 unit IV UD PRN PRN Reason: HEPARIN FLUSH Hydralazine HCl (Apresoline Iv) 10 mg IV Q4H PRN PRN PRN Reason: SBP > 160 Hydromorphone HCl (Dilaudid Inj) 1 mg IV Q3H PRN PRN PRN Reason: SEVERE PAIN (6-1010) Last Admin: 06/25/17 20:01 Dose: 1 mg Piperacillin Sod/Tazobactam Sod (Zosyn) 3.375 gm in 50 mls @ 12.5 mls/hr IV Q8 [facility] Last Admin: 06/26/17 06:35 Dose: 12.5 mls/hr Lactated Ringer's () 1,000 mls @ 60 mls/hr IV .[id number] [facility] Last Admin: 06/26/17 02:42 Dose: 60 mls/hr Daptomycin 1,000 mg/ Sodium (Chloride) 70 mls @ 100 mls/hr IV Q24 [facility] Last Admin: 06/25/17 10:48 Dose: 100 mls/hr Insulin Aspart (Novolog Flexpen (Bkc)) 15 units SC TIDAC [facility] PRN Reason: Protocol Last Admin: 06/26/17 07:50 Dose: 15 u Insulin Aspart (Novolog Flexpen (Bkc)) 0 units SC ACHS [facility] PRN Reason: Protocol Last Admin: 06/26/17 07:51 Dose: 3 units Insulin Detemir (Levemir (Bk)) 50 units SC BID [facility] Last Admin: 06/25/17 22:21 Dose: 50 units Lactobacillus Acidophilus (Acidophilus) 1 tablet PO 4X/DAY [facility] Last Admin: 06/25/17 22:20 Dose: 1 tablet Loperamide HCl (Imodium) 2 mg PO Q2H PRN PRN PRN Reason: LOOSE STOOLS Losartan Potassium (Cozaar) 100 mg PO DAILY [facility] Last Admin: 06/25/17 10:49 Dose: 100 mg Morphine Sulfate (Ms Contin) 15 mg PO TID [facility] Last Admin: 06/26/17 06:35 Dose: 15 mg [facility] Last Admin: 06/25/17 16:46 Dose: 500 mg Nutritional Formula (Greg - [place] Flavor) [facility] Last Admin: 06/26/17 07:52 Dose: 1 packet Nutritional Formula (Lactose Free) (Glucerna Shake) 120 ml PO 4X/DAY [facility] Last Admin: 06/25/17 22:20 Dose: Not Given Ondansetron HCl (Zofran) 4 mg IV Q6H PRN PRN PRN Reason: NAUSEA Pantoprazole Sodium (Protonix) 20 mg PO BID [facility] Last Admin: 06/25/17 22:20 Dose: 20 mg Polyethylene Glycol (Miralax) 17 gm PO DAILY [facility] Last Admin: 06/25/17 11:01 Dose: Not Given Polysaccharide Iron Complex (Ferrex 150) [facility] Last Admin: 06/25/17 08:16 Dose: 150 mg Promethazine HCl (Phenergan Tablet) 25 mg PO Q4H PRN PRN PRN Reason: NAUSEA/VOMITING Sodium Chloride () 5 - 30 ml IV UD PRN PRN Reason: SALINE FLUSH Last Admin: 06/25/17 05:58 Dose: 30 ml Sodium Chloride () 10 - 20 ml IV UD PRN PRN Reason: PICC FLUSH Temazepam (Restoril) 15 mg PO QHS PRN PRN PRN Reason: insomnia Triamterene/HCTZ (Dyazide (G)) 1 cap PO DAILY [facility] Last Admin: 06/25/17 10:49 Dose: 1 cap Medical Necessity - Tobacco Use Smoking Status: Former smoker Tobacco Use: Non-smoker Assessment/Plan Patient is a 62-year-old gentleman who underwent left below-knee amputation by Dr. Rodriguez on 06/24/2017 on account of infected nonhealing diabetic wound with cellulitis and chronic osteomyelitis. Admitted to regular nursing floor following her procedure with consultation placed to the hospitalist service 1. Status post left below-knee amputation by Dr. Rodriguez on 06/24/2017 on account of infected nonhealing diabetic wound with cellulitis and chronic osteomyelitis with MRSA and VRE; Patient is on daptomycin and Zosyn with consultation placed to ID will defer antibiotic therapy to infectious disease 2. Hypertension-blood pressure controlled, home medications continued with dose adjustment as needed 3. 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 Managed with long-acting insulin with Accu-Cheks before meals and at bedtime with sliding scale coverage 4. Chronic pain syndrome 5. Obstructive sleep apnea patient is on CPAP at night 6. Depression with anxiety patient is on SSRI Celexa as well as Wellbutrin 7. Obesity with BMI of 40.5 weight loss advised 8. Anemia; secondary to anemia of chronic disorder monitoring H&H with plans to transfuse if patient becomes symptomatic or hemoglobin falls below 7 9. Dyslipidemia-patient is on statin therapy, continued at home dose 10. GERD on PPI 11. DVT prophylaxis on Lovenox Code Visit Inpatient E&M: 05301 Subs Hosp L2
[2017-06-26] MEDS: Iron Polysaccharide Complex 150 MG CAPSULE PO (08:32)
[2017-06-26] MEDS: Gabapentin 800 MG Tablet PO ×4 (08:32→22:30)
[2017-06-26] MEDS: Naproxen 500 MG Tablet PO ×2 (08:32→16:33)
--- NOTE | 2017-06-26 08:37 | CASEMGMT ---
Social Work Note SW received call from Angélica in TCU that she has read pt's notes and understands that pt's plan is to return home at discharge with home health care. Angélica states that she will take pt off TCU list. Per conversation with RN BRYN Lux [facility] can accept pt. Plan: Home with [facility] Conchita Elliott CASHIER CREDIT, RISK DEVELOPER
[2017-06-26] MEDS: 0.9% NaCl Peripheral Flush Adult/Peds IV ×2 (08:41→15:35)
[2017-06-26] MEDS: HYDROmorphone 1 MG/ML Syringe IV ×2 (08:41→15:35)
--- NOTE | 2017-06-26 10:34 | PCM.PN.ID ---
Subjective: Pain much better this AM. No fever, no n/v/d. - Physical Exam General: Alert, Cooperative Lungs: Clear to auscultation, Normal air movement Cardiovascular: Regular rate, Regular Rhythm Abdomen: Soft, Non Tender, Non-Distended Skin: Ulcer/ Wound - L BKA bandaged. Vital Signs Temp Pulse Resp BP Pulse Ox 97.4 F L 81 18 131/69 H 96 06/26/17 02:40 06/26/17 02:40 06/26/17 02:40 06/26/17 02:40 06/26/17 02:40 Oxygen Flow Rate (L/min) 2 Oxygen Delivery Method Room Air Weight: 146.646 kg Body Mass Index (BMI) 40.5 Finger Stick Blood Glucose 205 Intake and Output for Last 24 Hours 06/24/17 06/25/17 06/26/17 23:59 23:59 23:59 Intake Total 2820 / 2820 5081 / 5081 492 / 492 Output Total 350 / 350 3503 / 3503 2009 Balance 2470 / 2470 1578 / 1578 -1518 / -1518 Microbiology Past 72 Hours 06/24/17 15:19 Gram Stain - Final Tissue - Left Foot Wound Culture - Preliminary Staphylococcus aureus 06/24/17 15:19 Gram Stain - Final Tissue - Left Foot Wound Culture - Preliminary Staphylococcus aureus POC Glucose 06/26/17 06/25/17 06/25/17 07:48 22:17 16:49 POC Glucose 194 H 161 H 125 H 06/25/17 06/24/17 06/24/17 10:55 20:00 16:49 POC Glucose 324 H 228 H 206 H Medical Necessity - Tobacco Use Smoking Status: Former smoker Tobacco Use: Non-smoker Route of nutrition/ use of supplements: [] Nutritional Intake: [] IV Site: [] Tam Catheter: [] - Assessment/Plan Antibiotics: [] Assessment/Plan: [] 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 Rodriguez. Surg cx of foot showing staph aureus. Continue dapto/zosyn for short course post-op as long as surgical margins are clear of infection. May be able to stop tomorrow. Will follow.
[2017-06-26 11:00] VITALS: BP 158/67; PULSE 82; RESP 16; TEMP 37.1; O2SAT 95
[2017-06-26] MEDS: Losartan Potassium 100 MG Tablet PO (11:04)
[2017-06-26] MEDS: Docusate Sodium 100 MG Capsule PO (11:04)
[2017-06-26] MEDS: Pantoprazole Sodium 20 MG Tablet PO ×2 (11:04→22:30)
[2017-06-26] MEDS: buPROPion (XL) 150 MG TABLET.XL PO (11:04)
[2017-06-26] MEDS: Ketorolac 15 MG/ML Vial IV (11:04)
[2017-06-26] MEDS: Triamterene 37.5MG/Hctz 25MG Capsule 1 CAP PO (11:04)
[2017-06-26] MEDS: Citalopram 40 MG TABLET PO (11:04)
[2017-06-26] MEDS: Glucerna Shake 120 ML LIQUID PO ×4 (11:16→22:29)
[2017-06-26 11:40] LABS: Bedside Glucose 284 mg/dL (70-110)
[2017-06-26 12:50] LABS: Hematocrit 25.7 % (40-54); Hemoglobin 7.9 g/dl (13.0-16.5); Mean Corp Hgb Conc 30.7 g/gl (32-36); Mean Corpuscular Hgb 27.2 pg (27.0-32.0); Mean Corpuscular Volume 88.6 fL (80-94); Mean Platelet Vol. 9.6 fl (6.2-12.0); Platelet Count 223 K/mm3 (150-450); RBC Distribution Width CV 15.8 % (11.6-14.6); RBC Distribution Width SD 49.7 fl (35.1-43.9); White Blood Count 6.8 K/mm3 (4.4-11.0)
[2017-06-26 12:54] LABS: Scan Indicated on CBC? Y/N NO
[2017-06-26 13:09] LABS: Anion Gap 4 (5-15); BUN 27 mg/dL (7-18); BUN/Creat Ratio 21.1 RATIO (10-20); Calcium,Total 8.6 mg/dL (8.5-10.1); Chloride 104 mmol/L (98-107); Creatinine, Serum 1.28 mg/dL (0.70-1.30); EST Glomerular Filtration Rate 61 mL/min (>60); Est Glom Filt Rate - Afr Amer 74 mL/min (>60); Estimated Creatinine Clearance 72.43 ml/min; Glucose 245 mg/dL (74-106); Potassium 4.1 mmol/L (3.5-5.1); Sodium Level 138 mmol/L (136-145)
[2017-06-26 16:11] LABS: Bedside Glucose 241 mg/dL (70-110)
[2017-06-26 16:34] VITALS: BP 146/60; PULSE 91; RESP 16; TEMP 36.8; O2SAT 98
--- NOTE | 2017-06-26 17:37 | CASEMGMT ---
Social Work Note RANDY received a call from Sahra with [facility] asking about Home Health Referral and pt's needs for home health. This worker completed Home Health Care Order and ordered detention and PT. RN BRYN Lux states that pt will only need [facility] and PT for Home Health Care. RANDY placed a call back to Sahra and updated her of this. Sahra states understanding. Plan: Discharge home with [facility] and PT Conchita Elliott EXOTIC DANCER, BUYER INTERNSHIP
--- NOTE | 2017-06-26 19:06 | PCM.PN.SRG ---
Subjective: Postop #2 Patient is resting comfortably. The increased Valium has been helpful with his spasms. - Physical Exam General: Alert, Oriented x3 HEENT: PERRLA, EOMI Neck: Supple Lungs: Clear to auscultation Cardiovascular: Regular rate, Regular Rhythm, Rubs Abdomen: Soft Skin: Incision - stump incision is dry and intact. Stump is soft. No evidence of hematoma. Neurological: Cranial nerves II-XII grossly intact Psych/Mental Status: Normal Affect, Appropriate Vital Signs Temp Pulse Resp BP Pulse Ox 98.3 F 91 16 146/60 H 98 06/26/17 16:34 06/26/17 16:34 06/26/17 16:34 06/26/17 16:34 06/26/17 16:34 Oxygen Flow Rate (L/min) 2 Oxygen Delivery Method Room Air Weight: 323 lb 4.785 oz Body Mass Index (BMI) 40.5 Finger Stick Blood Glucose 205 Intake and Output for Last 24 Hours 06/24/17 06/25/17 06/26/17 23:59 23:59 23:59 Intake Total 2820 / 2820 5081 / 5081 2257 / 2257 Output Total 350 / 350 3503 / 3503 2788 / 2788 Balance 2470 / 2470 1578 / 1578 -531 / -531 Drainage 203 ml yesterday, 38 ml today. Microbiology Past 72 Hours 06/24/17 15:19 Gram Stain - Final Tissue - Left Foot Wound Culture - Preliminary Staphylococcus aureus 06/24/17 15:19 Gram Stain - Final Tissue - Left Foot Wound Culture - Preliminary Staphylococcus aureus Pathology - pending. Laboratory Tests Past 24 Hrs 06/26/17 06/26/17 12:37 12:37 WBC 6.8 RBC 2.90 L Hgb 7.9 L Hct 25.7 L MCV 88.6 MCH 27.2 MCHC 30.7 L RDW 15.8 H RDW Differential 49.7 H Plt Count 223 MPV 9.6 Sodium 138 Potassium 4.1 Chloride 104 Carbon Dioxide 30.0 Anion Gap 4 L BUN 27 H Creatinine 1.28 Estim Creat Clear Calc 72.43 Est GFR (MDRD) Af Amer 74 Est GFR (MDRD) Non-Af 61 BUN/Creatinine Ratio 21.1 H Glucose 245 H Calcium 8.6 POC Glucose 06/26/17 06/26/17 06/26/17 16:00 11:31 07:48 POC Glucose 241 H 284 H 194 H 06/25/17 22:17 POC Glucose 161 H Medical Necessity - Tobacco Use Smoking Status: Former smoker Tobacco Use: Non-smoker Assessment/Plan 1. Nonhealing diabetic ulcer left plantar foot with infection. 2. Nonhealing diabetic ulcer left medial foot with infection. 3. Osteomyelitis. 4. Diabetes mellitus. 5. MRSA. 6. Charcot foot neuropathic osteoarthropathy. 7. Former smoker. 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 10. Anemia of chronic disease, acute on chronic. Patient states the spasm pain and burning nerve pain are better with the increased medication. Incision is dry and intact. Stump is soft. Operative cultures are pending. Pathology is pending. On Daptomycin and Zosyn. Prealbumin was 25.1. Encourage nutritional supplementation with protein to help the healing process. Hgb has decreased from 8.8 to 7.9. He has anemia of chronic disease, acute on chronic. He had some moderate blood loss during the surgery on 800 ml. He also has IV dilution contributing to the anemia as there is no ongoing evidence of bleeding in the stump. He is positive 3500 ml on his I's/O's. Will continue to monitor. If it dips below 8, will need PRBC. OT/PT is working with him with transferring. He would benefit from going to an ECF. Evaluation TCU at the present time since that is where he came from for the amputation surgery.
[2017-06-26 22:20] VITALS: BP 152/58; PULSE 73; RESP 16; TEMP 36.5; O2SAT 97
[2017-06-26] MEDS: Gabapentin 400 MG Capsule PO (22:29)
[2017-06-26] MEDS: Atorvastatin Calcium 40 MG Tablet PO (22:30)
[2017-06-26 22:41] LABS: Bedside Glucose 233 mg/dL (70-110)
[2017-06-27] VITALS (10 sets, daily range): BP systolic 142–170; BP diastolic 66–78; PULSE 68–82; RESP 16–18; TEMP 36.4–37; O2SAT 94–98
[2017-06-27] MEDS: 0.9% NaCl Peripheral Flush Adult/Peds IV ×5 (06:08→21:11)
[2017-06-27] MEDS: Enoxaparin 40 MG/0.4 ML Syringe SC (06:08)
[2017-06-27] MEDS: morphine SR 15 MG Tablet PO ×3 (06:08→22:08)
[2017-06-27] MEDS: Piperacil/Tazobactam 3.375 GM/50 ML ML IV (06:08)
[2017-06-27] MEDS: diazePAM 5 MG Tablet PO ×5 (06:09→22:08)
[2017-06-27 06:25] LABS: Hemoglobin 7.5 g/dl (13.0-16.5); Mean Corpuscular Hgb 26.4 pg (27.0-32.0); Mean Platelet Vol. 9.6 fl (6.2-12.0); Platelet Count 214 K/mm3 (150-450); RBC Distribution Width CV 15.4 % (11.6-14.6); RBC Distribution Width SD 48.6 fl (35.1-43.9); Red Blood Count 2.84 M/mm3 (4.6-6.2); Scan Indicated on CBC? Y/N NO; White Blood Count 5.4 K/mm3 (4.4-11.0)
[2017-06-27 06:38] LABS: Anion Gap 8 (5-15); BUN 25 mg/dL (7-18); BUN/Creat Ratio 22.5 RATIO (10-20); Calcium,Total 8.7 mg/dL (8.5-10.1); Chloride 102 mmol/L (98-107); Creatinine, Serum 1.11 mg/dL (0.70-1.30); EST Glomerular Filtration Rate 72 mL/min (>60); Est Glom Filt Rate - Afr Amer 87 mL/min (>60); Estimated Creatinine Clearance 83.53 ml/min; Glucose 283 mg/dL (74-106); Potassium 4.2 mmol/L (3.5-5.1); Sodium Level 138 mmol/L (136-145)
[2017-06-27] MEDS: Glucerna Shake 120 ML LIQUID PO ×4 (08:38→22:08)
[2017-06-27] MEDS: Iron Polysaccharide Complex 150 MG CAPSULE PO (08:39)
[2017-06-27] MEDS: Naproxen 500 MG Tablet PO ×2 (08:39→16:40)
[2017-06-27] MEDS: Citalopram 40 MG TABLET PO (08:39)
[2017-06-27] MEDS: Gabapentin 800 MG Tablet PO ×4 (08:39→21:12)
[2017-06-27] MEDS: buPROPion (XL) 150 MG TABLET.XL PO (08:40)
[2017-06-27] MEDS: Losartan Potassium 100 MG Tablet PO (08:40)
[2017-06-27] MEDS: Triamterene 37.5MG/Hctz 25MG Capsule 1 CAP PO (08:40)
[2017-06-27] MEDS: Pantoprazole Sodium 20 MG Tablet PO ×2 (08:40→21:12)
[2017-06-27 08:51] LABS: Bedside Glucose 295 mg/dL (70-110)
--- NOTE | 2017-06-27 09:47 | CASEMGMT ---
Social Work Note MARY Wade informed this worker that pt is now interested in SNF placement at discharge. Per Sheri pt would like to go to TCU as he was there before. RANDY placed a call to Angélica in TCU and left her a message asking about bed availability. RANDY received a call back from Libby stating that TCU will have a bed available and that she will begin pre-cert. MARY Lux in to meet with pt about his medical equipment that was delivered. Pt had his walker delivered to hospital yesterday and his bedside commode was delivered to pt's home. MARY Lux confirms that pt is agreeable to TCU at discharge. RANDY placed a call to Sahra with [facility] and updated her that pt will be going to TCU at discharge. Plan: TCU pending pre-cert Conchita MAJOR, INSPECTOR HANDBAG FRAMES
--- NOTE | 2017-06-27 10:03 | PCM.PN.HOSP ---
Subjective: Seen pain is tolerable compared to the day prior. Wound cultures came back positive for MRSA Objective: GENERAL: cooperative HEENT: Clear conjunctiva, NECK; supple, no distended JVD. 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 SKIN: As Described above Vitals/I&O's: Vital Signs Temp Pulse Resp BP Pulse Ox 97.9 F 73 18 157/67 H 97 06/27/17 06:05 06/27/17 06:05 06/27/17 06:05 06/27/17 06:05 06/27/17 06:05 Oxygen Flow Rate (L/min) 2 Oxygen Delivery Method Room Air Weight: 146.646 kg Body Mass Index (BMI) 40.5 Finger Stick Blood Glucose 205 Intake and Output for Last 24 Hours 06/25/17 06/26/17 06/27/17 23:59 23:59 23:59 Intake Total 5081 / 5081 3368 / 3368 706 / 706 Output Total 3503 / 3503 3508 / 3508 1045 / 1045 Balance 1578 / 1578 -140 / -140 -339 / -339 Microbiology Past 72 Hours 06/24/17 15:19 Tissue - Left Foot Gram Stain - Final 06/24/17 15:19 Tissue - Left Foot Wound Culture - Final Meth. resistant Staph. aureus 06/24/17 15:19 Tissue - Left Foot Anaerobic Culture - Preliminary Checking for anaerobes, further studies to follow. 06/24/17 15:19 Tissue - Left Foot Gram Stain - Final 06/24/17 15:19 Tissue - Left Foot Wound Culture - Final Meth. resistant Staph. aureus 06/24/17 15:19 Tissue - Left Foot Anaerobic Culture - Preliminary Checking for anaerobes, further studies to follow. Laboratory Results 06/26/17 11:31: POC Glucose 284 H 06/26/17 12:37: WBC 6.8, RBC 2.90 L, Hgb 7.9 L, Hct 25.7 L, MCV 88.6, MCH 27.2, MCHC 30.7 L, RDW 15.8 H, RDW Differential 49.7 H, Plt Count 223, MPV 9.6 06/26/17 12:37: Sodium 138, Potassium 4.1, Chloride 104, Carbon Dioxide 30.0, Anion Gap 4 L, BUN 27 H, Creatinine 1.28, Estim Creat Clear Calc 72.43, Est GFR (MDRD) Af Amer 74, Est GFR (MDRD) Non-Af 61, BUN/Creatinine Ratio 21.1 H, Glucose 245 H, Calcium 8.6 06/26/17 16:00: POC Glucose 241 H 06/26/17 22:26: POC Glucose 233 H 06/27/17 06:12: WBC 5.4, RBC 2.84 L, Hgb 7.5 L, Hct 25.0 L, MCV 88.0, MCH 26.4 L, MCHC 30.0 L, RDW 15.4 H, RDW Differential 48.6 H, Plt Count 214, MPV 9.6 06/27/17 06:12: Sodium 138, Potassium 4.2, Chloride 102, Carbon Dioxide 28.0, Anion Gap 8, BUN 25 H, Creatinine 1.11, Estim Creat Clear Calc 83.53, Est GFR (MDRD) Af Amer 87, Est GFR (MDRD) Non-Af 72, BUN/Creatinine Ratio 22.5 H, Glucose 283 H, Calcium 8.7 06/27/17 08:20: POC Glucose 295 H Current Medications Al Hydroxide/Mg Hydroxide (Mylanta Ii) 30 ml PO Q6H PRN PRN PRN Reason: GERD Atorvastatin Calcium (Lipitor) 40 mg PO QHS [facility] Last Admin: 06/26/17 22:30 Dose: 40 mg Bisacodyl (Dulcolax) 10 mg PO DAILY PRN PRN PRN Reason: Constipation Bupropion HCl (Wellbutrin Xl) 150 mg PO DAILY [facility] Last Admin: 06/27/17 08:40 Dose: 150 mg Citalopram Hydrobromide (Celexa) 40 mg PO DAILY [facility] Last Admin: 06/27/17 08:39 Dose: 40 mg Diazepam (Valium) 5 - 10 mg PO Q4 [facility] Last Admin: 06/27/17 06:09 Dose: 5 mg Docusate Sodium (Colace) 100 mg PO BID [facility] Last Admin: 06/27/17 08:40 Dose: Not Given Enoxaparin Sodium (Lovenox) 40 mg SC DAILY@0600 [facility] Last Admin: 06/27/17 06:08 Dose: 40 mg Gabapentin (Neurontin) 800 mg PO 4X/DAYCM [facility] Last Admin: 06/27/17 08:39 Dose: 800 mg Gabapentin (Neurontin) 400 mg PO QHS [facility] Last Admin: 06/26/17 22:29 Dose: 400 mg Heparin Sodium (Beef Lung) (Heparin 500 Unit/5 Ml (100/Ml)) 500 unit IV UD PRN PRN Reason: HEPARIN FLUSH Hydralazine HCl (Apresoline Iv) 10 mg IV Q4H PRN PRN PRN Reason: SBP > 160 Hydromorphone HCl (Dilaudid Inj) 1 mg IV Q3H PRN PRN PRN Reason: SEVERE PAIN (6-11/26) Last Admin: 06/26/17 15:35 Dose: 1 mg Piperacillin Sod/Tazobactam Sod (Zosyn) 3.375 gm in 50 mls @ 12.5 mls/hr IV Q8 [facility] Last Admin: 06/27/17 06:08 Dose: 12.5 mls/hr Lactated Ringer's () 1,000 mls @ 60 mls/hr IV .[id number] [facility] Last Admin: 06/26/17 22:28 Dose: 60 mls/hr Daptomycin 1,000 mg/ Sodium (Chloride) 70 mls @ 100 mls/hr IV Q24 [facility] Last Admin: 06/26/17 11:02 Dose: 100 mls/hr Insulin Aspart (Novolog Flexpen (Bkc)) 15 units SC TIDAC [facility] PRN Reason: Protocol Last Admin: 06/27/17 08:34 Dose: 15 u Insulin Aspart (Novolog Flexpen (Bkc)) 0 units SC ACHS [facility] PRN Reason: Protocol Last Admin: 06/27/17 08:35 Dose: 9 units Insulin Detemir (Levemir (Bkc)) 50 units SC BID [facility] Last Admin: 06/27/17 08:36 Dose: 50 units Lactobacillus Acidophilus (Acidophilus) 1 tablet PO 4X/DAY [facility] Last Admin: 06/27/17 08:39 Dose: 1 tablet Loperamide HCl (Imodium) 2 mg PO Q2H PRN PRN PRN Reason: LOOSE STOOLS Losartan Potassium (Cozaar) 100 mg PO DAILY [facility] Last Admin: 06/27/17 08:40 Dose: 100 mg Morphine Sulfate (Ms Contin) 15 mg PO TID [facility] Last Admin: 06/27/17 06:08 Dose: 15 mg [facility]) [facility] Last Admin: 06/27/17 08:39 Dose: 500 mg Nutritional Formula (Greg - [place] Flavor) [facility] Last Admin: 06/27/17 08:39 Dose: 1 packet Nutritional Formula (Lactose Free) (Glucerna Shake) 120 ml PO 4X/DAY [facility] Last Admin: 06/27/17 08:38 Dose: 120 ml Ondansetron HCl (Zofran) 4 mg IV Q6H PRN PRN PRN Reason: NAUSEA Pantoprazole Sodium (Protonix) 20 mg PO BID [facility] Last Admin: 06/27/17 08:40 Dose: 20 mg Polyethylene Glycol (Miralax) 17 gm PO DAILY [facility] Last Admin: 06/27/17 08:40 Dose: Not Given Polysaccharide Iron Complex (Ferrex 150) [facility] Last Admin: 06/27/17 08:39 Dose: 150 mg Promethazine HCl (Phenergan Tablet) 25 mg PO Q4H PRN PRN PRN Reason: NAUSEA/VOMITING Sodium Chloride () 5 - 30 ml IV UD PRN PRN Reason: SALINE FLUSH Last Admin: 06/27/17 06:08 Dose: 20 ml Sodium Chloride () 10 - 20 ml IV UD PRN PRN Reason: PICC FLUSH Temazepam (Restoril) 15 mg PO QHS PRN PRN PRN Reason: insomnia Triamterene/HCTZ (Dyazide (G)) 1 cap PO DAILY [facility] Last Admin: 06/27/17 08:40 Dose: 1 cap Medical Necessity - Tobacco Use Smoking Status: Former smoker Tobacco Use: Non-smoker Assessment/Plan Patient is a 62-year-old gentleman who underwent left below-knee amputation by Dr. Rodriguez on 06/24/2017 on account of infected nonhealing diabetic wound with cellulitis and chronic osteomyelitis. Admitted to regular nursing floor following her procedure with consultation placed to the hospitalist service 1. Status post left below-knee amputation by Dr. Rodriguez on 06/24/2017 on account of infected nonhealing diabetic wound with cellulitis and chronic osteomyelitis with MRSA and VRE; Patient is on daptomycin and Zosyn with consultation placed to ID will defer antibiotic therapy to infectious disease 2. Hypertension-blood pressure controlled, home medications continued with dose adjustment as needed 3. 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 Managed with long-acting insulin with Accu-Cheks before meals and at bedtime with sliding scale coverage 4. Chronic pain syndrome 5. Obstructive sleep apnea patient is on CPAP at night 6. Depression with anxiety patient is on SSRI Celexa as well as Wellbutrin 7. Obesity with BMI of 40.5 weight loss advised 8. Anemia; secondary to anemia of chronic disorder monitoring H&H with plans to transfuse if patient becomes symptomatic or hemoglobin falls below 7 9. Dyslipidemia-patient is on statin therapy, continued at home dose 10. GERD on PPI 11. DVT prophylaxis on Lovenox Code Visit Inpatient E&M: 30763 Subs Hosp L2
[2017-06-27 11:11] LABS: Bedside Glucose 275 mg/dL (70-110)
[2017-06-27] MEDS: HYDROmorphone 1 MG/ML Syringe IV ×3 (13:07→21:10)
--- NOTE | 2017-06-27 13:49 | PCM.DC ---
You will use the following diet at home:: No restrictions, Regular Your food should be the consistency of: Regular Your liquids should be the consistency of: Regular/Thin Discharge Activity: Use Walker Weight Bearing Status: No weight bearing - Left lower extremity. Call your doctor if you observe: Fever of 101 or Higher, Inability to urinate, Inability to have a bowel movement, Shortness of breath, Chest pain, Uncontrolled pain Allergies/Adverse Reactions: Allergies cefepime Allergy (Verified 06/19/17 11:36) Hives lisinopril Allergy (Verified 06/19/17 11:36) cough sulfamethoxazole [From ] Allergy (Verified 06/19/17 11:36) turned red trimethoprim [From ] Allergy (Verified 06/19/17 11:36) turned red Medications to take at Discharge Insulin Detemir [Levemir FlexPen] 50 units SC BID 10/12/14 Citalopram [Celexa] 40 mg PO DAILY 11/15/14 Metformin HCl [Glucophage] 1,000 mg PO BIDCM 11/15/14 Losartan Potassium [Cozaar] 100 mg PO DAILY 06/05/16 buPROPion XL [Wellbutrin Xl] 150 mg PO DAILY 01/21/17 glimepiride 4 mg tablet 4 mg PO BID tab 01/31/17 Insulin Aspart [Novolog Flexpen] 15 units SC TIDCM 03/24/17 Triamterene/Hydrochlorothiazid [Triamterene-Hctz 37.5-25 mg Cp] 1 each PO DAILY 03/24/17 Gabapentin [Neurontin] 800 mg PO 4X/DAY 05/28/17 Naproxen [Naprosyn] 500 mg PO BID 05/28/17 Albuterol Aerosols [Ventolin Aerosols] 2.5 mg INHALATION Q4H PRN PRN 06/09/17 Insulin Aspart [Novolog Flexpen] See Protocol SC ACHS flexpen 06/12/17 Loperamide [Imodium] 2 mg PO Q2H PRN PRN capsule 06/12/17 Oxycodone [Oxyir] 10 mg PO Q4H PRN PRN 2 Days #10 tab 06/12/17 morphine SR tablet [Ms Contin] 15 mg PO TID 1 Days #3 tab 06/12/17 Acetaminophen [Tylenol Tablet] 1,000 mg PO Q8H PRN PRN 06/19/17 Atorvastatin Calcium [Lipitor] 40 mg PO QHS 06/19/17 Bisacodyl [Dulcolax] 10 mg PO DAILY PRN PRN 06/19/17 DAPTOmycin [Cubicin] 1,000 mg IV Q24H 06/19/17 Enoxaparin [Lovenox] 40 mg SC DAILY@1000 06/19/17 Glucerna Shake 120 ml PO 4X/DAY 06/19/17 Heparin Sodium,Porcine/Pf [Heparin 500 Unit/5 ml (100/ml)] 500 unit IV UD PRN 06/19/17 Iron Polysaccharide Complex [Ferrex 150] 150 mg PO DAILYCM 06/19/17 Lactobacillus Acidophilus [Acidophilus] 1 tablet PO 4X/DAY 06/19/17 Mag Hydrox/Al Hydrox/Simeth [Mylanta II] 30 ml PO Q6H PRN PRN 06/19/17 Piperacil/Tazobactam [Zosyn] 3.375 gm IV Q8 06/19/17 Polyethylene Glycol 8000 [Polyethylene Glycol] 17 gm PO DAILY 06/19/17 Senna/Docusate Sodium [Senokot-S, Yael-Colace] 2 tablet PO BID 06/19/17 Tuberculin,Purif.prot.deriv. [Tubersol, Aplisol, Ppd] 5 tu ID [id number] 06/19/17 Primary Care Physician: Orion Cordova [Primary Care Provider] - Please follow up with your Primary Care Physician in: After hospitalization. Proposed Discharge Date: 06/24/17
--- NOTE | 2017-06-27 15:15 | CASEMGMT ---
Addendum entered by Conchita Elliott 06/27/17 15:27: Green sheet on chart. Original Note: Addendum entered by Conchita Elliott 06/27/17 15:26: MARY Wade states that she informed pt that he can go to TCU when medically cleared. Original Note: Social Work Note RANDY received call from Libby that pre-cert has been obtained and pt can go to TCU today. RANDY updated MARY Wade, Charge Nurse Argelia, and Dr. Rangel. MARY Wade states that pt is getting blood tonight and she is unsure if pt will be able to go to TCU tonight but if not tonight he can discharge tomorrow. RANDY updated Libby of this. Libby states understanding. Plan: TCU tonight or tomorrow. Conchita Elliott DELPHI PROGRAMMER, [employer]
--- NOTE | 2017-06-27 15:30 | PCM.PN.ID ---
Subjective: Pain controlled, no fever, no n/v/d. - Physical Exam General: Alert, Cooperative, No apparent distress Lungs: Clear to auscultation, Normal air movement Cardiovascular: Regular rate, Regular Rhythm Abdomen: Soft, Non Tender, Non-Distended Skin: Incision - LLE s/p bka Vital Signs Temp Pulse Resp BP Pulse Ox 98.1 F 76 16 170/74 H 98 06/27/17 10:00 06/27/17 10:00 06/27/17 10:00 06/27/17 10:00 06/27/17 10:00 Oxygen Flow Rate (L/min) 2 Oxygen Delivery Method Room Air Weight: 146.646 kg Body Mass Index (BMI) 40.5 Finger Stick Blood Glucose 205 Intake and Output for Last 24 Hours 06/25/17 06/26/17 06/27/17 23:59 23:59 23:59 Intake Total 5081 / 5081 3368 / 3368 706 / 706 Output Total 3503 / 3503 3508 / 3508 1045 / 1045 Balance 1578 / 1578 -140 / -140 -339 / -339 Microbiology Past 72 Hours 06/24/17 15:19 Gram Stain - Final Tissue - Left Foot Wound Culture - Final Meth. resistant Staph. aureus Anaerobic Culture - Preliminary Checking for anaerobes, further studies to follow. 06/24/17 15:19 Gram Stain - Final Tissue - Left Foot Wound Culture - Final Meth. resistant Staph. aureus Anaerobic Culture - Preliminary Checking for anaerobes, further studies to follow. Laboratory Tests Past 24 Hrs 06/27/17 06/27/17 06:12 06:12 WBC 5.4 RBC 2.84 L Hgb 7.5 L Hct 25.0 L MCV 88.0 MCH 26.4 L MCHC 30.0 L RDW 15.4 H RDW Differential 48.6 H Plt Count 214 MPV 9.6 Sodium 138 Potassium 4.2 Chloride 102 Carbon Dioxide 28.0 Anion Gap 8 BUN 25 H Creatinine 1.11 Estim Creat Clear Calc 83.53 Est GFR (MDRD) Af Amer 87 Est GFR (MDRD) Non-Af 72 BUN/Creatinine Ratio 22.5 H Glucose 283 H Calcium 8.7 POC Glucose 06/27/17 06/27/17 06/26/17 11:01 08:20 22:26 POC Glucose 275 H 295 H 233 H 06/26/17 16:00 POC Glucose 241 H Medical Necessity - Tobacco Use Smoking Status: Former smoker Tobacco Use: Non-smoker Route of nutrition/ use of supplements: [] Nutritional Intake: [] IV Site: [] Tam Catheter: [] - Assessment/Plan Antibiotics: [] Assessment/Plan: [] 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 Rodriguez. Surg cx of foot showing staph aureus. Will stop dapto/zosyn today and monitor off abx. Will follow.
[2017-06-27 16:50] LABS: Bedside Glucose 275 mg/dL (70-110)
--- NOTE | 2017-06-27 18:45 | PCM.PN.SRG ---
Subjective: Postop #3 Patient resting comfortably. Feels tired. - Physical Exam General: Alert, Oriented x3 HEENT: PERRLA, EOMI Neck: Supple Lungs: Clear to auscultation Cardiovascular: Regular rate, Regular Rhythm Abdomen: Soft, Non-Distended Skin: Incision - stump incision is dry and intact. Stump is soft. No clinical evidence of hematoma. Neurological: Cranial nerves II-XII grossly intact Psych/Mental Status: Normal Affect, Appropriate Vital Signs Temp Pulse Resp BP Pulse Ox 98.1 F 82 18 150/72 H 98 06/27/17 16:00 06/27/17 16:00 06/27/17 16:00 06/27/17 16:00 06/27/17 16:00 Oxygen Flow Rate (L/min) 2 Oxygen Delivery Method Room Air Weight: 323 lb 4.785 oz Body Mass Index (BMI) 40.5 Finger Stick Blood Glucose 205 Intake and Output for Last 24 Hours 06/25/17 06/26/17 06/27/17 23:59 23:59 23:59 Intake Total 5081 / 5081 3368 / 3368 1186 / 1186 Output Total 3503 / 3503 3508 / 3508 2175 / 2175 Balance 1578 / 1578 -140 / -140 -989 / -989 Drainage 58 ml yesterday, 50 ml today. Microbiology Past 72 Hours 06/24/17 15:19 Gram Stain - Final Tissue - Left Foot Wound Culture - Final Meth. resistant Staph. aureus Anaerobic Culture - Preliminary Checking for anaerobes, further studies to follow. 06/24/17 15:19 Gram Stain - Final Tissue - Left Foot Wound Culture - Final Meth. resistant Staph. aureus Anaerobic Culture - Preliminary Checking for anaerobes, further studies to follow. Pathology - pending. Laboratory Tests Past 24 Hrs 06/24/17 06/27/17 06/27/17 16:15 06:12 06:12 WBC 5.4 RBC 2.84 L Hgb 7.5 L Hct 25.0 L MCV 88.0 MCH 26.4 L MCHC 30.0 L RDW 15.4 H RDW Differential 48.6 H Plt Count 214 MPV 9.6 Sodium 138 Potassium 4.2 Chloride 102 Carbon Dioxide 28.0 Anion Gap 8 BUN 25 H Creatinine 1.11 Estim Creat Clear Calc 83.53 Est GFR (MDRD) Af Amer 87 Est GFR (MDRD) Non-Af 72 BUN/Creatinine Ratio 22.5 H Glucose 283 H Calcium 8.7 Blood Type O POSITIVE Antibody Screen NEGATIVE Crossmatch See Detail POC Glucose 06/27/17 06/27/17 06/27/17 16:38 11:01 08:20 POC Glucose 275 H 275 H 295 H 06/26/17 22:26 POC Glucose 233 H Medical Necessity - Tobacco Use Smoking Status: Former smoker Tobacco Use: Non-smoker Assessment/Plan 1. Nonhealing diabetic ulcer left plantar foot with infection. 2. Nonhealing diabetic ulcer left medial foot with infection. 3. Osteomyelitis. 4. Diabetes mellitus. 5. MRSA. 6. Charcot foot neuropathic osteoarthropathy. 7. Former smoker. 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 10. Anemia of chronic disease, acute on chronic. Patient states the spasm pain and burning nerve pain are better with the increased medication. Incision is dry and intact. Stump is soft. No clinical evidence of hematoma. Operative cultures show MRSA in soft tissue and bone. Pathology is pending. ID has stopped the antibiotics for now. Will see how he does off antibiotics as the MRSA is what he had before and it was in the foot ulcer that was removed with the amputation. Prealbumin was 25.1. Encourage nutritional supplementation with protein to help the healing process. Hgb has decreased from 7.9 to 7.5. He has anemia of chronic disease, acute on chronic. He had some moderate blood loss during the surgery on 800 ml. He also has IV dilution contributing to the anemia as there is no ongoing evidence of bleeding in the stump. He is positive 3000 ml on his I's/O's. Will transfuse PRBC today. OT/PT is working with him with transferring. He would benefit from going to an ECF. Evaluation TCU at the present time since that is where he came from for the amputation surgery.
[2017-06-27] MEDS: Atorvastatin Calcium 40 MG Tablet PO (21:13)
[2017-06-27] MEDS: Docusate Sodium 100 MG Capsule PO (21:13)
[2017-06-27] MEDS: Gabapentin 400 MG Capsule PO (21:13)
[2017-06-27 21:25] LABS: Bedside Glucose 277 mg/dL (70-110)
[2017-06-28 00:13] VITALS: BP 143/60; PULSE 71; RESP 16; TEMP 36.2; O2SAT 97
[2017-06-28] MEDS: HYDROmorphone 1 MG/ML Syringe IV ×4 (00:14→14:10)
[2017-06-28 01:11] VITALS: BP 145/70; PULSE 70; RESP 16; TEMP 36.9; O2SAT 97
[2017-06-28 02:24] VITALS: BP 155/80; PULSE 69; RESP 16; TEMP 36.4; O2SAT 98
[2017-06-28] MEDS: diazePAM 5 MG Tablet PO ×4 (02:29→14:38)
[2017-06-28] MEDS: Lactated Ringers 1,000 ML 60 ML IV (06:06)
[2017-06-28] MEDS: morphine SR 15 MG Tablet PO ×2 (06:06→14:38)
[2017-06-28] MEDS: 0.9% NaCl Peripheral Flush Adult/Peds IV (06:07)
[2017-06-28] MEDS: Enoxaparin 40 MG/0.4 ML Syringe SC (06:07)
[2017-06-28 06:11] LABS: Absolute Lymphocyte Count 1.19 X10^3/ul (0.83-4.51); Absolute Neutrophil Count 3.5 X10^3/uL (2.0-7.7); Basophil# 0.03 X10^3/uL; Basophil% 0.5 % (0-1); Eosinophil# 0.51 X10^3/uL; Eosinophils% 8.9 % (0-5); Hematocrit 28.8 % (40-54); Lymphocyte # 1.19 X10^3/ul (4.0); Lymphocyte % 20.7 % (19-41); Mean Corp Hgb Conc 31.3 g/gl (32-36); Mean Corpuscular Hgb 26.9 pg (27.0-32.0); Mean Platelet Vol. 9.6 fl (6.2-12.0); Monocyte# 0.47 X10^3/uL; Monocyte% 8.2 % (0-10); Neutrophil # 3.51 X10^3/uL (2.7-7.7); Neutrophil % 61.2 % (47-70); Platelet Count 248 K/mm3 (150-450); RBC Distribution Width CV 15.5 % (11.6-14.6); RBC Distribution Width SD 47.3 fl (35.1-43.9); Red Blood Count 3.35 M/mm3 (4.6-6.2); White Blood Count 5.7 K/mm3 (4.4-11.0)
[2017-06-28 06:13] LABS: POSITIVE COUNT NO; POSITIVE DIFFERENTIAL NO; POSITIVE MORPHOLOGY NO
[2017-06-28 06:32] LABS: Anion Gap 8 (5-15); BUN 24 mg/dL (7-18); BUN/Creat Ratio 22.2 RATIO (10-20); Calcium,Total 8.8 mg/dL (8.5-10.1); Chloride 102 mmol/L (98-107); Creatinine, Serum 1.08 mg/dL (0.70-1.30); EST Glomerular Filtration Rate 74 mL/min (>60); Est Glom Filt Rate - Afr Amer 89 mL/min (>60); Estimated Creatinine Clearance 85.85 ml/min; Glucose 261 mg/dL (74-106); Potassium 4.2 mmol/L (3.5-5.1); Sodium Level 138 mmol/L (136-145)
[2017-06-28 07:46] VITALS: BP 151/77; PULSE 68; RESP 20; TEMP 36.4; O2SAT 100
[2017-06-28] MEDS: Glucerna Shake 120 ML LIQUID PO ×2 (07:58→14:38)
[2017-06-28] MEDS: Iron Polysaccharide Complex 150 MG CAPSULE PO (07:58)
[2017-06-28] MEDS: Citalopram 40 MG TABLET PO (07:59)
[2017-06-28] MEDS: Gabapentin 800 MG Tablet PO ×2 (07:59→12:14)
[2017-06-28] MEDS: Naproxen 500 MG Tablet PO (07:59)
[2017-06-28] MEDS: Triamterene 37.5MG/Hctz 25MG Capsule 1 CAP PO (07:59)
[2017-06-28] MEDS: Pantoprazole Sodium 20 MG Tablet PO (07:59)
[2017-06-28] MEDS: buPROPion (XL) 150 MG TABLET.XL PO (08:00)
[2017-06-28] MEDS: Losartan Potassium 100 MG Tablet PO (08:00)
--- NOTE | 2017-06-28 08:23 | PCM.PN.HOSP ---
Subjective: Patient to be discharged to [facility] pending insurance precertification. Did you receive 2 units PRBC blood transfusion on 06/27/2017 Objective: GENERAL: cooperative HEENT: Clear conjunctiva, NECK; supple, no distended JVD. CHEST: Clear to auscultation bilaterally, HEART: Regular S1 S2, no audible murmurs ABDOMEN: soft,normoactive bowel sounds, RECTAL: deferred EXTREMITIES: L BKA in surgical dressing PATTERN DRAFTER: Awake, no lateralizing signs. SKIN: As Described above Vitals/I&O's: Vital Signs Temp Pulse Resp BP Pulse Ox 97.5 F L 68 20 H 151/77 H 100 06/28/17 07:46 06/28/17 07:46 06/28/17 07:46 06/28/17 07:46 06/28/17 07:46 Oxygen Flow Rate (L/min) 2 Oxygen Delivery Method Room Air Weight: 146.646 kg Body Mass Index (BMI) 40.5 Finger Stick Blood Glucose 205 Intake and Output for Last 24 Hours 06/26/17 06/27/17 06/28/17 23:59 23:59 23:59 Intake Total 3368 / 3368 1586 / 1586 1366 / 1366 Output Total 3508 / 3508 2205 / 2205 2049 / 2049 Balance -140 / -140 -619 / -619 -684 / -684 Microbiology Past 72 Hours 06/24/17 15:19 Tissue - Left Foot Gram Stain - Final 06/24/17 15:19 Tissue - Left Foot Wound Culture - Final Meth. resistant Staph. aureus 06/24/17 15:19 Tissue - Left Foot Anaerobic Culture - Preliminary Checking for anaerobes, further studies to follow. 06/24/17 15:19 Tissue - Left Foot Gram Stain - Final 06/24/17 15:19 Tissue - Left Foot Wound Culture - Final Meth. resistant Staph. aureus 06/24/17 15:19 Tissue - Left Foot Anaerobic Culture - Preliminary Checking for anaerobes, further studies to follow. Laboratory Results 06/24/17 16:15: Blood Type O POSITIVE, Antibody Screen NEGATIVE, Crossmatch See Detail 06/27/17 08:20: POC Glucose 295 H 06/27/17 11:01: POC Glucose 275 H 06/27/17 16:38: POC Glucose 275 H 06/27/17 18:35: Blood Type O POSITIVE, Antibody Screen NEGATIVE 06/27/17 18:35: Crossmatch See Detail 06/27/17 21:07: POC Glucose 277 H 06/28/17 05:55: WBC 5.7, RBC 3.35 L, Hgb 9.0 L, Hct 28.8 L, MCV 86.0, MCH 26.9 L, MCHC 31.3 L, RDW 15.5 H, RDW Differential 47.3 H, Plt Count 248, MPV 9.6, Immature Gran % (Auto) 0.500, Neut % (Auto) 61.2, Lymph % (Auto) 20.7, [place] % (Auto) 8.2, Eos % (Auto) 8.9 H, Baso % (Auto) 0.5, Absolute Neuts (auto) 3.5, Absolute Lymphs (auto) 1.19, Total Counted Not Reportable 06/28/17 05:55: Sodium 138, Potassium 4.2, Chloride 102, Carbon Dioxide 28.0, Anion Gap 8, BUN 24 H, Creatinine 1.08, Estim Creat Clear Calc 85.85, Est GFR (MDRD) Af Amer 89, Est GFR (MDRD) Non-Af 74, BUN/Creatinine Ratio 22.2 H, Glucose 261 H, Calcium 8.8 Current Medications Al Hydroxide/Mg Hydroxide (Mylanta Ii) 30 ml PO Q6H PRN PRN PRN Reason: GERD Atorvastatin Calcium (Lipitor) 40 mg PO QHS [facility] Last Admin: 06/27/17 21:13 Dose: 40 mg Bisacodyl (Dulcolax) 10 mg PO DAILY PRN PRN PRN Reason: Constipation Bupropion HCl (Wellbutrin Xl) 150 mg PO DAILY [facility] Last Admin: 06/28/17 08:00 Dose: 150 mg Citalopram Hydrobromide (Celexa) 40 mg PO DAILY [facility] Last Admin: 06/28/17 07:59 Dose: 40 mg Diazepam (Valium) 5 - 10 mg PO Q4 [facility] Last Admin: 06/28/17 06:07 Dose: 5 mg Docusate Sodium (Colace) 100 mg PO BID [facility] Last Admin: 06/28/17 07:50 Dose: Not Given Enoxaparin Sodium (Lovenox) 40 mg SC DAILY@0600 [facility] Last Admin: 06/28/17 06:07 Dose: 40 mg [facility] ([facility]) [facility] Last Admin: 06/28/17 07:59 Dose: 800 mg Gabapentin (Neurontin) 400 mg PO QHS [facility] Last Admin: 06/27/17 21:13 Dose: 400 mg Heparin Sodium (Beef Lung) (Heparin 500 Unit/5 Ml (100/Ml)) 500 unit IV UD PRN PRN Reason: HEPARIN FLUSH Hydralazine HCl (Apresoline Iv) 10 mg IV Q4H PRN PRN PRN Reason: SBP > 160 Hydromorphone HCl (Dilaudid Inj) 1 mg IV Q3H PRN PRN PRN Reason: SEVERE PAIN (6-11/26) Last Admin: 06/28/17 08:01 Dose: 1 mg Lactated Ringer's () 1,000 mls @ 60 mls/hr IV .[id number] [facility] Last Admin: 06/28/17 06:06 Dose: 60 mls/hr Insulin Aspart (Novolog Flexpen (Bkc)) 15 units SC TIDAC [facility] PRN Reason: Protocol Last Admin: 06/28/17 07:56 Dose: 15 u Insulin Aspart (Novolog Flexpen (Bkc)) 0 units SC ACHS [facility] PRN Reason: Protocol Last Admin: 06/28/17 07:57 Dose: 9 units Insulin Detemir (Levemir (Bkc)) 50 units SC BID [facility] Last Admin: 06/27/17 21:09 Dose: 50 units Lactobacillus Acidophilus (Acidophilus) 1 tablet PO 4X/DAY [facility] Last Admin: 06/28/17 07:59 Dose: 1 tablet Loperamide HCl (Imodium) 2 mg PO Q2H PRN PRN PRN Reason: LOOSE STOOLS Losartan Potassium (Cozaar) 100 mg PO DAILY [facility] Last Admin: 06/28/17 08:00 Dose: 100 mg Morphine Sulfate (Ms Contin) 15 mg PO TID [facility] Last Admin: 06/28/17 06:06 Dose: 15 mg [facility]) [facility] Last Admin: 06/28/17 07:59 Dose: 500 mg Nutritional Formula (Greg - [place] Flavor) [facility] Last Admin: 06/28/17 07:57 Dose: 1 packet Nutritional Formula (Lactose Free) (Glucerna Shake) 120 ml PO 4X/DAY [facility] Last Admin: 06/28/17 07:58 Dose: 120 ml Ondansetron HCl (Zofran) 4 mg IV Q6H PRN PRN PRN Reason: NAUSEA Pantoprazole Sodium (Protonix) 20 mg PO BID [facility] Last Admin: 06/28/17 07:59 Dose: 20 mg Polyethylene Glycol (Miralax) 17 gm PO DAILY [facility] Last Admin: 06/28/17 07:51 Dose: Not Given Polysaccharide Iron Complex (Ferrex 150) 150 mg PO DAILYCM [facility] Last Admin: 06/28/17 07:58 Dose: 150 mg Promethazine HCl (Phenergan Tablet) 25 mg PO Q4H PRN PRN PRN Reason: NAUSEA/VOMITING Sodium Chloride () 5 - 30 ml IV UD PRN PRN Reason: SALINE FLUSH Last Admin: 06/28/17 06:07 Dose: 20 ml Sodium Chloride () 10 - 20 ml IV UD PRN PRN Reason: PICC FLUSH Temazepam (Restoril) 15 mg PO QHS PRN PRN PRN Reason: insomnia Triamterene/HCTZ (Dyazide (G)) 1 cap PO DAILY [facility] Last Admin: 06/28/17 07:59 Dose: 1 cap Medical Necessity - Tobacco Use Smoking Status: Former smoker Tobacco Use: Non-smoker Assessment/Plan Patient is a 62-year-old gentleman who underwent left below-knee amputation by Dr. Rodriguez on 06/24/2017 on account of infected nonhealing diabetic wound with cellulitis and chronic osteomyelitis. Admitted to regular nursing floor following her procedure with consultation placed to the hospitalist service 1. Status post left below-knee amputation by Dr. Rodriguez on 06/24/2017 on account of infected nonhealing diabetic wound with cellulitis and chronic osteomyelitis with MRSA and VRE; Patient is on daptomycin and Zosyn with consultation placed to ID will defer antibiotic therapy to infectious disease 2. Hypertension-blood pressure controlled, home medications continued with dose adjustment as needed 3. 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 Managed with long-acting insulin with Accu-Cheks before meals and at bedtime with sliding scale coverage 4. Chronic pain syndrome 5. Obstructive sleep apnea patient is on CPAP at night 6. Depression with anxiety patient is on SSRI Celexa as well as Wellbutrin 7. Obesity with BMI of 40.5 weight loss advised 8. Anemia; secondary to anemia of chronic disorder as well as acute blood loss anemia following surgery patient was transfused with 2 units PRBC on 06/27/2017 9. Dyslipidemia-patient is on statin therapy, continued at home dose 10. GERD on PPI 11. DVT prophylaxis on Lovenox Code Visit Inpatient E&M: 31746 Subs Hosp L2
[2017-06-28 08:31] LABS: Bedside Glucose 294 mg/dL (70-110)
--- NOTE | 2017-06-28 10:25 | PN.SURG_ITS ---
Subjective: Postop #4 Patient is resting comfortably. Feeling less tired after the PRBC. - Physical Exam General: Alert, Oriented x3 HEENT: PERRLA, EOMI Neck: Supple Lungs: Clear to auscultation Cardiovascular: Regular rate, Regular Rhythm Abdomen: Soft, Non-Distended Skin: Incision - stump incision is dry and intact. Stump is soft. No clinical evidence of hematoma. Neurological: Cranial nerves II-XII grossly intact Psych/Mental Status: Normal Affect, Appropriate Vital Signs Temp Pulse Resp BP Pulse Ox 97.5 F L 68 20 H 151/77 H 100 06/28/17 07:46 06/28/17 07:46 06/28/17 07:46 06/28/17 07:46 06/28/17 07:46 Oxygen Flow Rate (L/min) 2 Oxygen Delivery Method Room Air Weight: 323 lb 4.785 oz Body Mass Index (BMI) 40.5 Finger Stick Blood Glucose 205 Intake and Output for Last 24 Hours 06/26/17 06/27/17 06/28/17 23:59 23:59 23:59 Intake Total 3368 / 3368 1586 / 1586 1366 / 1366 Output Total 3508 / 3508 2205 / 2205 2050 / 2050 Balance -140 / -140 -619 / -619 -684 / -684 Drainage 80 ml yesterday, Microbiology Past 72 Hours 06/24/17 15:19 Gram Stain - Final Tissue - Left Foot Wound Culture - Final Meth. resistant Staph. aureus Anaerobic Culture - Final No anaerobic bacteria isolated. 06/24/17 15:19 Gram Stain - Final Tissue - Left Foot Wound Culture - Final Meth. resistant Staph. aureus Anaerobic Culture - Final No anaerobic bacteria isolated. Pathology - pending. Laboratory Tests Past 24 Hrs 06/24/17 06/27/17 06/27/17 16:15 18:35 18:35 WBC RBC Hgb Hct MCV MCH MCHC RDW RDW Differential Plt Count MPV Immature Gran % (Auto) Neut % (Auto) Lymph % (Auto) Roosevelt % (Auto) Eos % (Auto) Baso % (Auto) Absolute Neuts (auto) Absolute Lymphs (auto) Total Counted Sodium Potassium Chloride Carbon Dioxide Anion Gap BUN Creatinine Estim Creat Clear Calc Est GFR (MDRD) Af Amer Est GFR (MDRD) Non-Af BUN/Creatinine Ratio Glucose Calcium Blood Type O POSITIVE O POSITIVE Antibody Screen NEGATIVE NEGATIVE Crossmatch See Detail See Detail 06/28/17 06/28/17 05:55 05:55 WBC 5.7 RBC 3.35 L Hgb 9.0 L Hct 28.8 L MCV 86.0 MCH 26.9 L MCHC 31.3 L RDW 15.5 H RDW Differential 47.3 H Plt Count 248 MPV 9.6 Immature Gran % (Auto) 0.500 Neut % (Auto) 61.2 Lymph % (Auto) 20.7 Roosevelt % (Auto) 8.2 Eos % (Auto) 8.9 H Baso % (Auto) 0.5 Absolute Neuts (auto) 3.5 Absolute Lymphs (auto) 1.19 Total Counted Not Reportable Sodium 138 Potassium 4.2 Chloride 102 Carbon Dioxide 28.0 Anion Gap 8 BUN 24 H Creatinine 1.08 Estim Creat Clear Calc 85.85 Est GFR (MDRD) Af Amer 89 Est GFR (MDRD) Non-Af 74 BUN/Creatinine Ratio 22.2 H Glucose 261 H Calcium 8.8 Blood Type Antibody Screen Crossmatch POC Glucose 06/28/17 06/27/17 06/27/17 07:43 21:07 16:38 POC Glucose 294 H 277 H 275 H 06/27/17 11:01 POC Glucose 275 H Medical Necessity - Tobacco Use Smoking Status: Former smoker Tobacco Use: Non-smoker Assessment/Plan 1. Nonhealing diabetic ulcer left plantar foot with infection. 2. Nonhealing diabetic ulcer left medial foot with infection. 3. Osteomyelitis. 4. Diabetes mellitus. 5. MRSA. 6. Charcot foot neuropathic osteoarthropathy. 7. Former smoker. 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 10. Anemia of chronic disease, acute on chronic, stable after PRBC. Patient states the spasm pain and burning nerve pain are better with the increased medication. Incision is dry and intact. Stump is soft. No clinical evidence of hematoma. Operative cultures show MRSA in soft tissue and bone. Pathology is pending. ID has stopped the antibiotics for now. Will see how he does off antibiotics as the MRSA is what he had before and it was in the foot ulcer that was removed with the amputation. Prealbumin was 25.1. Encourage nutritional supplementation with protein to help the healing process. Hgb has increased from 7.5 to 9.0 after the PRBC. He has anemia of chronic disease, acute on chronic. He had some moderate blood loss during the surgery on 800 ml. He also has IV dilution contributing to the anemia as there is no ongoing evidence of bleeding in the stump. He is positive 2500 ml on his I's/O' s. OT/PT is working with him with transferring. He would benefit from going to an ECF. Evaluation TCU at the present time has been accepted. He will be discharged today. Will followup with him over in TCU to remove the drain at the appropriate time. After discharge from TCU, will followup at the [facility]ound Center.
--- NOTE | 2017-06-28 10:25 | PCM.TXEXTCAR ---
- Diet 06/24/17 15:46 Diet: Carbohydrate Controlled - Routine Orders/Code Status Routine Lab Work: CBC - qMonday, BMP - qMonday Code Status: Full Code - Left below knee amputation - 06/24/17. - Wound(s) left below the knee Wound Type: Surgical Incision Dressing Change: xeroform with dry dressing - nursing to apply antibiotic ointment to suture line daily followed by xeroform gauze and kerlix gauze, ABD pad, and compression linus wrap. To be done daily. - Therapies Weight Bearing: Full weight bearing - on right leg with assist. Extremity Affected:: Left Lower - had left below knee amputation. Physical Therapy: Eval and Treat Occupational Therapy: Eval and Treat - Allergies/Procedures Done in Hospital Allergies/Adverse Reactions: Allergies cefepime Allergy (Verified 06/19/17 11:36) Hives lisinopril Allergy (Verified 06/19/17 11:36) cough sulfamethoxazole [From ] Allergy (Verified 06/19/17 11:36) turned red trimethoprim [From Octra] Allergy (Verified 06/19/17 11:36) turned red Procedures: - - 06/24/17 - Left below knee amputation. - Type of Care/Length of Stay Estimated LOS: Convalescent Care Less Than 30 days Type of Care Needed: Skilled Rehab Potential: Good Prognosis: Good - Additional Orders/Day of Discharge H&P will serve as current which was dated: 06/23/17 Day of Discharge: 06/28/17 - Dietary and Speech Recommendations Dietitian Recommendations/Changes: encourage nutritional supplementation with protein to help the healing process. - Follow Up Care Primary Care Physician: Orion Cordova [Primary Care Provider] - Please follow up with your Primary Care Physician in: After hospitalization. Please Follow Up With: Lucho Rodriguez MD When: after discharge at wound center. call [phone] for appt.
--- NOTE | 2017-06-28 10:37 | DS.PCM_ITS ---
Discharge Date and Diagnosis Date of Admission: 06/24/17 Date of Discharge: 06/28/17 - Primary Discharge Diagnosis Nonhealing diabetic ulcer left plantar foot with infection. Nonhealing diabetic ulcer left medial foot with infection. Osteomyelitis. MRSA. VRE. Anemia of chronic disease, acute on chronic, stable. Head contusion, stable. - Secondary Discharge Diagnosis Diabetes mellitus. Charcot foot neuropathic osteoarthropathy. Former smoker. Obstructive sleep apnea. Hyperlipidemia. Venous insufficiency of both lower extremities. Peripheral vascular disease. Hypertension. Neuropathy. Depression. Hospital Course and Treatment Imaging Results: Diagnostic Data Brain CT 06/28/17 12:54 IMPRESSION: Chronic involutional changes. No acute intracranial abnormality. Electronically Signed: Tl DO Alejo at 14:05 EDT Tel , Service support , Consultations 06/24/17 23:02 Consult: Onc/Wound/distributed energy systems consultant Routine Comment: Hospitalist Group - Dr. Rubio and Dr. Rangel. Infectious Diseases - Dr. Sanders. Operations: - - 06/24/17 - Left below knee amputation. Procedures: Blood transfusion Summary of Care Provided: The patient is a 62 year old M who I have been caring for at the Wound Center with nonhealing diabetic ulcers left foot with underlying osteomyelitis. He has been treated off and on in the past with IV antibiotics. He has had MRSA in the past. When the IV antibiotics stop, he develops a recurrent infection. His left operative debridement was on 05/30/17 where he underwent surgical preparation left plantar foot with incision and drainage and excisional debridement nonhealing MRSA diabetic ulcer (42 cm2) and partial ostectomy cuboid bone for osteomyelitis. Shortly after that surgery he was seen at the Wound Center where continued redness and swelling and pain was seen despite being on IV Vancomycin. He was readmitted and is now on Daptomycin and Zosyn. Besides the MRSA, he also has VRE. It was determined after long discussion with the patient to proceed with amputation, below knee. On June 24, 2017, the patient underwent left below knee amputation. He tolerated the procedure well. There was a fair amount of blood loss during the surgery, about 800 ml. A Hgb postop was stable at 9.3. It then slowly drifted over the next few days to 7.5, and he received PRBC. After the PRBC, his Hgb improved to 9.0 at discharge. Part of the drop was from the operative loss and part of it was IV dilution as the I's/O's were positive of 4000 ml initially and at discharge he was still positive 2500 ml. He was treated perioperatively with Daptomycin and Zosyn. The operative culture showed MRSA in both the soft tissue and the bone. Infectious Diseases was consulted to help with antibiotic management. On the third postop day, the Daptomycin and Zosyn were stopped, as they wanted to see how he does off antibiotics. The Pathology was pending. His Prealbumin was 25.1. Encourage nutritional supplementation with protein to help the healing process. His drainage ranged from 203 ml after surgery to 80 ml at discharge. The stump was soft with the incision dry and intact with no clinical evidence of hematoma. On postop #4, his evaluation to return to TCU was approved. The Hospitalist Group was consulted to assist in medical management during his hospital stay. While waiting to go to TCU, he sat up in bed to void, and he fell and he thinks he may have hit his head. A CT was ordered which was normal. He denied any loss of consciousness. He was alert and oriented without headache. Will monitor at TCU. After discharge from TCU, he will followup at the Wound Center. Anticipate removing the drain in 7-10 days. The sutures will be removed in 2-3 weeks. After the drain is removed, will apply a stump clam sorter in preparation for the below knee prosthesis fitting. He will also need outpatient OT/PT. Discharge Diet: Carb Control Diet, - - encourage nutritional supplementation with protein to help the healing process. Discharge Activity: Use Crutches - with assist., - - use wheelchair with assist. May shower in (days): 7 - may shower after the drains are removed. May resume sexual activity in: 10-14 days Weight Bearing Status: No weight bearing - Left lower extremity. Keep extremity elevated above heart level: Left Leg - elevate left leg amputation stump when sitting. Call your doctor if your incision/area has: Continuous Slow Oozing, Sudden Increased Bleeding, Increased Pain/ Swelling, Increased Redness, Foul Smelling Discharge, Swelling at the incision site Call your doctor if you observe: Fever of 101 or Higher, Coldness, Increased Pain, Inability to urinate, Inability to have a bowel movement, Shortness of breath, Chest pain, Calf discomfort, Uncontrolled pain Suture Line Care: - - apply bactroban ointment to suture line daily. Change Dressing in (Days):: 2 - dry dressing every other day followed by compression linus wrap. Cleanse incision/area with: - - may get the incision wet with soap and water after the drain is removed. Drain: Suction - lopez drain to bulb suction. empty and record output qdaily. Home Medications: Medications to take at Discharge Insulin Detemir [Levemir FlexPen] 50 units SC BID 10/12/14 Citalopram [Celexa] 40 mg PO DAILY 11/15/14 Metformin HCl [Glucophage] 1,000 mg PO BIDCM 11/15/14 Losartan Potassium [Cozaar] 100 mg PO DAILY 06/05/16 buPROPion XL [Wellbutrin Xl] 150 mg PO DAILY 01/21/17 glimepiride 4 mg tablet 4 mg PO BID tab 01/31/17 Insulin Aspart [Novolog Flexpen] 15 units SC TIDCM 03/24/17 Triamterene/Hydrochlorothiazid [Triamterene-Hctz 37.5-25 mg Cp] 1 each PO DAILY 03/24/17 Naproxen [Naprosyn] 500 mg PO BID 05/28/17 Albuterol Aerosols [Ventolin Aerosols] 2.5 mg INHALATION Q4H PRN PRN 06/09/17 Loperamide [Imodium] 2 mg PO Q2H PRN PRN capsule 06/12/17 Acetaminophen [Tylenol Tablet] 1,000 mg PO Q8H PRN PRN 06/19/17 Atorvastatin Calcium [Lipitor] 40 mg PO QHS 06/19/17 Bisacodyl [Dulcolax] 10 mg PO DAILY PRN PRN 06/19/17 Glucerna Shake 120 ml PO 4X/DAY 06/19/17 Heparin Sodium,Porcine/Pf [Heparin 500 Unit/5 ml (100/ml)] 500 unit IV UD PRN Iron Polysaccharide Complex [Ferrex 150] 150 mg PO DAILYCM 06/19/17 Lactobacillus Acidophilus [Acidophilus] 1 tablet PO 4X/DAY 06/19/17 Mag Hydrox/Al Hydrox/Simeth [Mylanta II] 30 ml PO Q6H PRN PRN 06/19/17 Polyethylene Glycol 8000 [Polyethylene Glycol] 17 gm PO DAILY 06/19/17 Senna/Docusate Sodium [Senokot-S] 2 tablet PO BID 06/19/17 Diazepam [Valium] 5 mg PO .[id number] PRN PRN #40 tab 06/28/17 Gabapentin [Neurontin] 400 mg PO QHS 06/28/17 Gabapentin [Neurontin] 800 mg PO 4X/DAY #120 tab 06/28/17 Insulin Aspart [Novolog Flexpen] See Protocol SC ACHS 06/28/17 Nutritional Supplement [Greg - ORANGE FLAVOR] 1 packet PO BIDCM 06/28/17 Oxycodone [Oxyir] 10 mg PO Q4H PRN PRN #60 tab 06/28/17 Pantoprazole Sodium [Protonix] 20 mg PO BID 06/28/17 Temazepam [Restoril] 15 mg PO QHS PRN PRN capsule 06/28/17 morphine SR tablet [Ms Contin] 15 mg PO TID #30 tab 06/28/17 proMETHazine tablet [Phenergan tablet] 25 mg PO Q4H PRN PRN tablet 06/28/17 Following Prescrptions Were Given to Patient: Oxycodone [Oxyir] 10 mg PO Q4H PRN PRN #60 tab PRN Reason: Moderate Pain (pain scale 4-5) Diazepam [Valium] 5 mg PO .[id number] PRN PRN #40 tab PRN Reason: Spasms morphine SR tablet [Ms Contin] 15 mg PO TID #30 tab Gabapentin [Neurontin] 800 mg PO 4X/DAY #120 tab Primary Care Physician: Orion Cordova [Primary Care Provider] - Please follow up with your Primary Care Physician in: After hospitalization. Please Follow Up With: Lucho Rodriguez MD When: after discharge at wound center. call [phone] for appt. Disposition: [facility]CU. Minutes spent on discharge:: 35 Patient Condition:: Stable Medical Necessity - Tobacco Use Smoking Status: Former smoker Tobacco Use: Non-smoker Meaningful Use Info Meaningful Use Diagnoses (Choose all that apply): None applicable
--- NOTE | 2017-06-28 12:05 | NURSING ---
Pt's daughter Eun called this nurse at this time. Eun states that she just got off the phone with her dad and he told her that around 0430am he fell out of bed when he lost his balance using his urinal and landed on the floor on his face. This nurse into pt's room to talk to him about incident. Pt states I told my daughter not to say anything! If I would have been hurt, I would have asked for help. Discussed with pt the importance of his safety and how staff are here to ensure that he is safe. Pt voices understanding. Pt states that around 0430am today, he fell out of bed when attempting to use his urinal. Pt states he landed face-first and positioned himself on his buttocks and moved closer to bed and held onto siderails on bed and used right foot and pulling with arms to assist himself off the floor. Pt denies injuries at this time when asked. Pt states he did not hit anything other than his face. No visible injuries to facial area, PERRLA, face symmetrical. Again discussed with pt the importance of asking staff for assistance with any movement out of bed and we are here to ensure his safety.
[2017-06-28 12:36] LABS: Bedside Glucose 254 mg/dL (70-110)
--- NOTE | 2017-06-28 12:54 | CT_ITS ---
STUDY: CT BRAIN WITHOUT CONTRAST REASON FOR EXAM: Male, 62 years old. Trauma, status post fall RADIATION DOSAGE (If Supplied By Facility): CTDIvol = ( 44.99 ) mGy, DLP = ( 863.60 ) mGycm TECHNIQUE: Transaxial CT imaging of the brain was performed without administration of intravenous contrast material. Sagittal and coronal reconstructed images are provided and reviewed. Individualized dose optimization techniques were used for this CT. COMPARISON: 11/20/2016 FINDINGS: Normal soft tissue structures. Normal calvarium. There is mild cerebral atrophy with widening of the extra-axial spaces and ventricular dilatation. Normal white matter tracts of the cerebral hemispheres. Normal basal ganglia and thalami. Normal brainstem. Normal cerebellum. There is no intracranial hemorrhage. There are no findings of an acute ischemic infarction. Normal visualized paranasal sinuses. CT/Brain/Head without Contrast IMPRESSION: Chronic involutional changes. No acute intracranial abnormality. Electronically Signed: Tl Dhillon DO at 14:05 EDT Tel , Service support ,
[2017-06-28] MEDS: Mupirocin Ointment 22gm Tube 1 APPLIC TOPICAL (14:39)
[2017-06-28 15:45] VITALS: BP 146/62; PULSE 73; RESP 18; TEMP 36.3; O2SAT 99
--- NOTE | 2017-06-28 16:06 | NURSING ---
Report given to May on TCU
== END 2017-06-28 16:28 | disposition skilled nursing facility (03) | DRG 617 ==
LOC: SDC 16:09 → MS3 16:09
PROVIDERS: Family Medicine; Admitting Provider Surgery; Family Provider Family Medicine; PCP Family Medicine; Visit Provider Internal Medicine
PROC: 0Y6J0Z1 Detachment at Left Lower Leg, High, Open Approach (ICD-10-PCS; principal; 2017-06-24 12:10)
DX: E11.621 Type 2 diabetes mellitus with foot ulcer (principal); D62 Acute posthemorrhagic anemia; Z68.41 Body mass index [BMI] 40.0-44.9, adult; M86.672 Other chronic osteomyelitis, left ankle and foot; L03.116 Cellulitis of left lower limb; E66.01 Morbid (severe) obesity due to excess calories; K21.9 Gastro-esophageal reflux disease without esophagitis; E11.42 Type 2 diabetes mellitus with diabetic polyneuropathy; L97.529 Non-pressure chronic ulcer of other part of left foot with unspecified severity; E78.5 Hyperlipidemia, unspecified; G89.4 Chronic pain syndrome; G47.33 Obstructive sleep apnea (adult) (pediatric); B95.62 Methicillin resistant Staphylococcus aureus infection as the cause of diseases classified elsewhere; D63.8 Anemia in other chronic diseases classified elsewhere; Z87.891 Personal history of nicotine dependence; Z79.4 Long term (current) use of insulin; Z89.431 Acquired absence of right foot; E11.69 Type 2 diabetes mellitus with other specified complication; B95.2 Enterococcus as the cause of diseases classified elsewhere; Z16.21 Resistance to vancomycin; S00.93XA Contusion of unspecified part of head, initial encounter; W19.XXXA Unspecified fall, initial encounter; Y92.230 Patient room in hospital as the place of occurrence of the external cause; E11.610 Type 2 diabetes mellitus with diabetic neuropathic arthropathy; I10 Essential (primary) hypertension; I87.2 Venous insufficiency (chronic) (peripheral); I73.9 Peripheral vascular disease, unspecified; E11.628 Type 2 diabetes mellitus with other skin complications
CPT/HCPCS: 36415; 70450; 80048; 82962; 83735; 84134; 85018; 85025; 85027; 86644; 86850; 86900; 86920; 86922; 87070; 87075; 87077; 87102; 87186; 87205; 87206; 88307; 88311; 97162; 97165; 97530; 97802; J0878; J7040; J7120; P9016; A4216; J3490

== ENCOUNTER 2017-06-28 16:29 | Inpatient (IN) | payer MEDICARE, SELFPAY ==
[2017-06-28 16:36] VITALS: BP 170/71; PULSE 73; RESP 18; TEMP 36.3; O2SAT 99
--- NOTE | 2017-06-28 16:38 | NURSING ---
pt arrived [facility] via WC
[2017-06-28 16:54] VITALS: BMI 39.1
[2017-06-28 16:55] LABS: Bedside Glucose 275 mg/dL (70-110)
[2017-06-28 17:00] VITALS: BMI 39.1
[2017-06-28] MEDS: oxyCODONE 5 MG Tablet 10 MG PO (17:38)
[2017-06-28] MEDS: Glucerna Shake 120 ML LIQUID PO ×2 (18:18→22:03)
[2017-06-28] MEDS: Pantoprazole Sodium 20 MG Tablet PO (18:18)
[2017-06-28] MEDS: Glimepiride 4 MG Tablet PO (19:44)
[2017-06-28] MEDS: Naproxen 500 MG Tablet PO (19:44)
--- NOTE | 2017-06-28 20:25 | PCM.HP.STD ---
Problem List (1) Diabetes mellitus Status: Chronic (2) Venous insufficiency Status: Chronic (3) Hypertension Status: Chronic (4) Chronic ulcer of left foot with necrosis of bone Status: Chronic (5) Obstructive sleep apnea Status: Chronic (6) Hyperlipidemia Status: Chronic Qualifiers: (7) Chronic pain Status: Chronic Qualifiers: (8) Acute osteomyelitis of left foot Status: Acute (9) Gait instability Status: Chronic (10) Peripheral vascular disease Status: Chronic (11) Neuropathy Status: Chronic Comment: secondary to diabetes (12) Morbid obesity Status: Chronic (13) Anemia Status: Chronic Qualifiers: (14) Depression Status: Chronic Qualifiers: History of Present Illness Date of Admission: 06/28/17 Chief Complaint: Here for rehabilitation, strengthening, wound care, prior to discharge to nursing facility. The patient is a 62 year old Male with below past medical history, TCU resident on IV Daptomycin, IV Zosyn for osteomyelitis of left foot. MRSA, VRE in cultures. Non-healing left foot ulcer, osteomyelitis. Infection recurs as soon as intravenous antibiotics discontinued. 06/24/2017 Dr. Rodriguez performed left below the knee amputation. 06/26/2017 Dr. Sanders continued daptomycin, Zosyn post-operatively. 06/28/2017 Admit to TCU for rehabilitation, strengthening, wound care, antibiotics, prior to discharge to nursing facility. 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) Obstructive sleep apnea (Chronic) Hyperlipidemia (Chronic) Chronic pain (Chronic) Diabetes mellitus (Chronic) Venous insufficiency (Chronic) Hypertension (Chronic) Osteomyelitis (Chronic) Non-pressure chronic ulcer of left heel and midfoot with muscle involvement without evidence of necrosis (Chronic) Infection of left foot (Chronic) Hypersomnia (Chronic) Ulcer of midfoot with necrosis of muscle (Chronic) Nocturnal hypoxemia (Chronic) Abscess of left foot (Chronic) Diabetic ulcer of left foot with fat layer exposed (Chronic) Non-pressure chronic ulcer of left heel and midfoot with fat layer exposed (Chronic) 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 Venous insufficiency of both lower extremities (Chronic) S/P transmetatarsal amputation of foot (Chronic) 03/04/[address] 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) Hypertension (Chronic) Amputation of right foot with complication (Chronic) Type 2 diabetes mellitus with diabetic polyneuropathy (Chronic) Stasis dermatitis of both legs (Chronic) Sleep apnea (Chronic) CPAP 15 cm H20, 100% compliant Neuropathy (Chronic) secondary to diabetes Morbid obesity (Chronic) Anemia (Chronic) Dyslipidemia (Chronic) Left ventricular hypertrophy (Chronic) Chronic pain syndrome (Chronic) Depression (Chronic) Allergies cefepime Allergy (Verified 06/19/17 11:36) Hives lisinopril Allergy (Verified 06/19/17 11:36) cough sulfamethoxazole [From ] Allergy (Verified 06/19/17 11:36) turned red trimethoprim [From ] Allergy (Verified 06/19/17 11:36) turned red Home Medications: Ambulatory Orders Medication Instructions Recorded Insulin Detemir [Levemir FlexPen] 50 units SC BID 10/12/14 Citalopram [Celexa] 40 mg PO DAILY 11/15/14 Metformin HCl [Glucophage] 1,000 mg PO BIDCM 11/15/14 Losartan Potassium [Cozaar] 100 mg PO DAILY 06/05/16 buPROPion XL [Wellbutrin Xl] 150 mg PO DAILY 01/21/17 glimepiride 4 mg tablet 4 mg PO BID tab 01/31/17 Insulin Aspart [Novolog Flexpen] 15 units SC TIDCM 03/24/17 Triamterene/Hydrochlorothiazid 1 each PO DAILY 03/24/17 [Triamterene-Hctz 37.5-25 mg Cp] Naproxen [Naprosyn] 500 mg PO BID 05/28/17 Albuterol Aerosols [Ventolin 2.5 mg INHALATION Q4H PRN PRN 06/09/17 Aerosols] Loperamide [Imodium] 2 mg PO Q2H PRN PRN capsule 06/12/17 Acetaminophen [Tylenol Tablet] 1,000 mg PO Q8H PRN PRN 06/19/17 Atorvastatin Calcium [Lipitor] 40 mg PO QHS 06/19/17 Bisacodyl [Dulcolax] 10 mg PO DAILY PRN PRN 06/19/17 Glucerna Shake 120 ml PO 4X/DAY 06/19/17 Heparin Sodium,Porcine/Pf [Heparin 500 unit IV UD PRN 06/19/17 500 Unit/5 ml (100/ml)] Iron Polysaccharide Complex 150 mg PO DAILYCM 06/19/17 [Ferrex 150] Lactobacillus Acidophilus 1 tablet PO 4X/DAY 06/19/17 [Acidophilus] Mag Hydrox/Al Hydrox/Simeth 30 ml PO Q6H PRN PRN 06/19/17 [Mylanta II] Polyethylene Glycol 8000 17 gm PO DAILY 06/19/17 [Polyethylene Glycol] Senna/Docusate Sodium [Senokot-S] 2 tablet PO BID 06/19/17 Diazepam [Valium] 5 mg PO [id number] PRN PRN #40 tab 06/28/17 Gabapentin [Neurontin] 400 mg PO QHS 06/28/17 Gabapentin [Neurontin] 800 mg PO 4X/DAY #120 tab 06/28/17 Insulin Aspart [Novolog Flexpen] See Protocol SC ACHS 06/28/17 Nutritional Supplement [Greg - 1 packet PO BIDCM 06/28/17 ORANGE FLAVOR] Oxycodone [Oxyir] 10 mg PO Q4H PRN PRN #60 tab 06/28/17 Pantoprazole Sodium [Protonix] 20 mg PO BID 06/28/17 Temazepam [Restoril] 15 mg PO QHS PRN PRN capsule 06/28/17 morphine SR tablet [Ms Contin] 15 mg PO TID #30 tab 06/28/17 proMETHazine tablet [Phenergan 25 mg PO Q4H PRN PRN tablet 06/28/17 tablet] Surgical History: - - Debridement left foot ulcer with versajet including necrotic muscle and widespread debridement plantar foot and incision and drainage left foot 01/24/17, Bone biopsy calcaneal cuboid bone left foot and excisional debridement left plantar foot ulceration 10/18/16, Right foot trans metatarsal amputation 03/04/16, Partial 4th toe amputation right foot at PIP joint 12/09/15, Excisional debridement including fascia left great toe 04/03/15, Right hallux amputation at MTP joint 12/29/14, microdiscectomy ?2, deviated septal repair, ulnar nerve repair, cholecystectomy, now L BKA 06/24/17. Psychiatric History: Anxiety, Depression Lives: Fdc Smoking Status: Former smoker Tobacco Use: Non-smoker Alcohol: None Drugs: None - *Family History Maternal History Items: Cancer, Heart Disease Paternal History Items: Heart Disease Review of Systems Constitutional: Denies: Chills, Fever, Weight Change HEENT: Denies: Head Aches, Sinus Congestion, Sinus Drainage Cardiovascular: Denies: Chest Pain, Palpitations Respiratory: Denies: Cough, Shortness of breath at rest, Sputum production Gastrointestinal: Denies: Abdominal Pain, Nausea, Vomiting Genitourinary: Denies: Dysuria Musculoskeletal: Denies: Joint Pain, Joint Tenderness Skin: Denies: Rash, Wounds Neurological: Denies: Numbness, Tingling, Focal weakness Psychiatric: Denies: Anxiety, Depression, Homicidal Ideations, Suicidal Ideations Hematologic/ Lymphatic: Denies: Easy Bruising, Easy Bleeding VTE Information - Inpt Only VTE Present on Admission: No VTE Mechan Device Prophylaxis: Knee High MANUELA Hose VTE Pharm Prophylaxis ordered?: Yes - Physical Exam General: Alert, Oriented x3, Cooperative HEENT: Atraumatic, PERRLA, EOMI, Normocephalic Neck: Supple, No JVD, Negative Carotid Bruits Lungs: Clear to auscultation, Normal air movement Cardiovascular: Regular rate, No murmurs Abdomen: Bowel Sounds Present, Soft, Non Tender Extremities: No edema, Capillary Refill Less than 3 Seconds, - - Left below the knee amputation Skin: No rashes, No breakdown Musculoskeletal: No Tenderness to Palpation of Joints or Extremities Neurological: Cranial nerves II-XII grossly intact Psych/Mental Status: Normal Affect, Appropriate Vital Signs Temp Pulse Resp BP Pulse Ox 97.4 F L 73 18 170/71 H 99 06/28/17 16:36 06/28/17 16:36 06/28/17 16:36 06/28/17 16:36 06/28/17 16:36 Oxygen Delivery Method Room Air Weight: 142 kg Body Mass Index (BMI) 39.1 Finger Stick Blood Glucose 205 Intake and Output for Last 24 Hours 05/10/18 05/11/18 05/12/18 23:59 23:59 23:59 Intake Total 300 / 300 Balance 300 / 300 POC Glucose 06/28/17 16:50 POC Glucose 275 H Assessment/Plan 62 year old male with below past medical history hospitalized for left below the knee amputation 06/24/[address] Rodriguez secondary to recurrent chronic osteomyelitis of left foot, non-healing left foot ulcer. Debility - PT/OT. Pain - Tylenol 1000MG Q8H PRN mild pain, MS Contin 15MG BID, Oxycodone 10MG Q4H PRN moderate pain, Naproxen 500MG BID. Bowel - Miralax 17GM daily, Senna/colace 2 tablets BID, Dulcolax 10MG PO daily PRN. Pneumonia vaccination - Administer Prevnar 13 and/or Pneumovax 23 as necessary. DVT prophylaxis - Lovenox 40MG SC daily. Shortness of breath - Albuterol 2.5MG Q4H PRN. Hyperlipidemia - Atorvastatin 40MG QHS. Depression - Wellbutrin XL 150MG daily, Citalopram 40MG daily. Anxiety - Diazepam 5MG Q4H PRN. Neuropathic pain - Gabapentin 800MG 4x/day, 400MG QHS. Diabetes Mellitus II - Metformin 1000MG BID, Glimepiride 4MG BID, Levemir 50 units BID, Novolog 15 units TIDCM, Glucagon 1MG IM x 1 PRN. Nutrition - Greg 1 packet BID, Glucerna 120ML 4x/day. Iron deficiency anemia - Ferrex 150MG daily. C. Diff prophylaxis - Lactobacillus 1 tablet 4x/day. Diarrhea - Loperamide 2MG Q2H PRN. GERD - Pantoprazole 20MG BID, Mylanta II 30ML Q6H PRN. Stump incision - Apply Mupurocin ointment daily. Nausea - Phenergan 25MG Q4H PRN. Insomnia - Temazepam 15MG QHS PRN. Hypertension - Maxzide 37.5/25MG daily.
--- NOTE | 2017-06-28 20:36 | HP.PCM_ITS ---
Problem List (1) Diabetes mellitus Status: Chronic (2) Venous insufficiency Status: Chronic (3) Hypertension Status: Chronic (4) Chronic ulcer of left foot with necrosis of bone Status: Chronic (5) Obstructive sleep apnea Status: Chronic (6) Hyperlipidemia Status: Chronic Qualifiers: (7) Chronic pain Status: Chronic Qualifiers: (8) Acute osteomyelitis of left foot Status: Acute (9) Gait instability Status: Chronic (10) Peripheral vascular disease Status: Chronic (11) Neuropathy Status: Chronic Comment: secondary to diabetes (12) Morbid obesity Status: Chronic (13) Anemia Status: Chronic Qualifiers: (14) Depression Status: Chronic Qualifiers: History of Present Illness Date of Admission: 06/28/17 Chief Complaint: Here for rehabilitation, strengthening, wound care, prior to discharge to nursing facility. The patient is a 62 year old Male with below past medical history, TCU resident on IV Daptomycin, IV Zosyn for osteomyelitis of left foot. MRSA, VRE in cultures. Non-healing left foot ulcer, osteomyelitis. Infection recurs as soon as intravenous antibiotics discontinued. 06/24/2017 Dr. Rodriguez performed left below the knee amputation. 06/26/2017 Dr. Sanders continued daptomycin, Zosyn post-operatively. 06/28/2017 Admit to TCU for rehabilitation, strengthening, wound care, antibiotics, prior to discharge to nursing facility. 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) Obstructive sleep apnea (Chronic) Hyperlipidemia (Chronic) Chronic pain (Chronic) Diabetes mellitus (Chronic) Venous insufficiency (Chronic) Hypertension (Chronic) Osteomyelitis (Chronic) Non-pressure chronic ulcer of left heel and midfoot with muscle involvement without evidence of necrosis (Chronic) Infection of left foot (Chronic) Hypersomnia (Chronic) Ulcer of midfoot with necrosis of muscle (Chronic) Nocturnal hypoxemia (Chronic) Abscess of left foot (Chronic) Diabetic ulcer of left foot with fat layer exposed (Chronic) Non-pressure chronic ulcer of left heel and midfoot with fat layer exposed ( Chronic) 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 Venous insufficiency of both lower extremities (Chronic) S/P transmetatarsal amputation of foot (Chronic) 03/04/[address] 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) Hypertension (Chronic) Amputation of right foot with complication (Chronic) Type 2 diabetes mellitus with diabetic polyneuropathy (Chronic) Stasis dermatitis of both legs (Chronic) Sleep apnea (Chronic) CPAP 15 cm H20, 100% compliant Neuropathy (Chronic) secondary to diabetes Morbid obesity (Chronic) Anemia (Chronic) Dyslipidemia (Chronic) Left ventricular hypertrophy (Chronic) Chronic pain syndrome (Chronic) Depression (Chronic) Allergies cefepime Allergy (Verified 06/19/17 11:36) Hives lisinopril Allergy (Verified 06/19/17 11:36) cough sulfamethoxazole [From ] Allergy (Verified 06/19/17 11:36) turned red trimethoprim [From ] Allergy (Verified 06/19/17 11:36) turned red Home Medications: Ambulatory Orders Medication Instructions Recorded Insulin Detemir [Levemir FlexPen] 50 units SC BID 10/12/14 Citalopram [Celexa] 40 mg PO DAILY 11/15/14 Metformin HCl [Glucophage] 1,000 mg PO BIDCM 11/15/14 Losartan Potassium [Cozaar] 100 mg PO DAILY 06/05/16 buPROPion XL [Wellbutrin Xl] 150 mg PO DAILY 01/21/17 glimepiride 4 mg tablet 4 mg PO BID tab 01/31/17 Insulin Aspart [Novolog Flexpen] 15 units SC TIDCM 03/24/17 Triamterene/Hydrochlorothiazid 1 each PO DAILY 03/24/17 [Triamterene-Hctz 37.5-25 mg Cp] Naproxen [Naprosyn] 500 mg PO BID 05/28/17 Albuterol Aerosols [Ventolin 2.5 mg INHALATION Q4H PRN PRN 06/09/17 Aerosols] Loperamide [Imodium] 2 mg PO Q2H PRN PRN capsule 06/12/17 Acetaminophen [Tylenol Tablet] 1,000 mg PO Q8H PRN PRN 06/19/17 Atorvastatin Calcium [Lipitor] 40 mg PO QHS 06/19/17 Bisacodyl [Dulcolax] 10 mg PO DAILY PRN PRN 06/19/17 Glucerna Shake 120 ml PO 4X/DAY 06/19/17 Heparin Sodium,Porcine/Pf [Heparin 500 unit IV UD PRN 06/19/17 500 Unit/5 ml (100/ml)] Iron Polysaccharide Complex 150 mg PO DAILYCM 06/19/17 [Ferrex 150] Lactobacillus Acidophilus 1 tablet PO 4X/DAY 06/19/17 [Acidophilus] Mag Hydrox/Al Hydrox/Simeth 30 ml PO Q6H PRN PRN 06/19/17 [Mylanta II] Polyethylene Glycol 8000 17 gm PO DAILY 06/19/17 [Polyethylene Glycol] Senna/Docusate Sodium [Senokot-S] 2 tablet PO BID 06/19/17 Diazepam [Valium] 5 mg PO [id number] PRN PRN #40 tab 06/28/17 Gabapentin [Neurontin] 400 mg PO QHS 06/28/17 Gabapentin [Neurontin] 800 mg PO 4X/DAY #120 tab 06/28/17 Insulin Aspart [Novolog Flexpen] See Protocol SC ACHS 06/28/17 Nutritional Supplement [Greg - 1 packet PO BIDCM 06/28/17 ORANGE FLAVOR] Oxycodone [Oxyir] 10 mg PO Q4H PRN PRN #60 tab 06/28/17 Pantoprazole Sodium [Protonix] 20 mg PO BID 06/28/17 Temazepam [Restoril] 15 mg PO QHS PRN PRN capsule 06/28/17 morphine SR tablet [Ms Contin] 15 mg PO TID #30 tab 06/28/17 proMETHazine tablet [Phenergan 25 mg PO Q4H PRN PRN tablet 06/28/17 tablet] Surgical History: - - Debridement left foot ulcer with versajet including necrotic muscle and widespread debridement plantar foot and incision and drainage left foot 01/24/17, Bone biopsy calcaneal cuboid bone left foot and excisional debridement left plantar foot ulceration 10/18/16, Right foot trans metatarsal amputation 03/04/16, Partial 4th toe amputation right foot at PIP joint 12/09/15, Excisional debridement including fascia left great toe 04/03/15, Right hallux amputation at MTP joint 12/29/14, microdiscectomy ?2, deviated septal repair, ulnar nerve repair, cholecystectomy, now L BKA 06/24/17. Psychiatric History: Anxiety, Depression Lives: Alf Smoking Status: Former smoker Tobacco Use: Non-smoker Alcohol: None Drugs: None - *Family History Maternal History Items: Cancer, Heart Disease Paternal History Items: Heart Disease Review of Systems Constitutional: Denies: Chills, Fever, Weight Change HEENT: Denies: Head Aches, Sinus Congestion, Sinus Drainage Cardiovascular: Denies: Chest Pain, Palpitations Respiratory: Denies: Cough, Shortness of breath at rest, Sputum production Gastrointestinal: Denies: Abdominal Pain, Nausea, Vomiting Genitourinary: Denies: Dysuria Musculoskeletal: Denies: Joint Pain, Joint Tenderness Skin: Denies: Rash, Wounds Neurological: Denies: Numbness, Tingling, Focal weakness Psychiatric: Denies: Anxiety, Depression, Homicidal Ideations, Suicidal Ideations Hematologic/ Lymphatic: Denies: Easy Bruising, Easy Bleeding VTE Information - Inpt Only VTE Present on Admission: No VTE Mechan Device Prophylaxis: Knee High MANUELA Hose VTE Pharm Prophylaxis ordered?: Yes - Physical Exam General: Alert, Oriented x3, Cooperative HEENT: Atraumatic, PERRLA, EOMI, Normocephalic Neck: Supple, No JVD, Negative Carotid Bruits Lungs: Clear to auscultation, Normal air movement Cardiovascular: Regular rate, No murmurs Abdomen: Bowel Sounds Present, Soft, Non Tender Extremities: No edema, Capillary Refill Less than 3 Seconds, - - Left below the knee amputation Skin: No rashes, No breakdown Musculoskeletal: No Tenderness to Palpation of Joints or Extremities Neurological: Cranial nerves II-XII grossly intact Psych/Mental Status: Normal Affect, Appropriate Vital Signs Temp Pulse Resp BP Pulse Ox 97.4 F L 73 18 170/71 H 99 06/28/17 16:36 06/28/17 16:36 06/28/17 16:36 06/28/17 16:36 06/28/17 16:36 Oxygen Delivery Method Room Air Weight: 142 kg Body Mass Index (BMI) 39.1 Finger Stick Blood Glucose 205 Intake and Output for Last 24 Hours 05/10/18 05/11/18 05/12/18 23:59 23:59 23:59 Intake Total 300 / 300 Balance 300 / 300 POC Glucose 06/28/17 16:50 POC Glucose 275 H Assessment/Plan 62 year old male with below past medical history hospitalized for left below the knee amputation 06/24/[address] Rodriguez secondary to recurrent chronic osteomyelitis of left foot, non-healing left foot ulcer. * Debility - PT/OT. * Pain - Tylenol 1000MG Q8H PRN mild pain, MS Contin 15MG BID, Oxycodone 10MG Q4H PRN moderate pain, Naproxen 500MG BID. * Bowel - Miralax 17GM daily, Senna/colace 2 tablets BID, Dulcolax 10MG PO daily PRN. * Pneumonia vaccination - Administer Prevnar 13 and/or Pneumovax 23 as necessary. * DVT prophylaxis - Lovenox 40MG SC daily. * Shortness of breath - Albuterol 2.5MG Q4H PRN. * Hyperlipidemia - Atorvastatin 40MG QHS. * Depression - Wellbutrin XL 150MG daily, Citalopram 40MG daily. * Anxiety - Diazepam 5MG Q4H PRN. * Neuropathic pain - Gabapentin 800MG 4x/day, 400MG QHS. * Diabetes Mellitus II - Metformin 1000MG BID, Glimepiride 4MG BID, Levemir 50 units BID, Novolog 15 units TIDCM, Glucagon 1MG IM x 1 PRN. * Nutrition - Greg 1 packet BID, Glucerna 120ML 4x/day. * Iron deficiency anemia - Ferrex 150MG daily. * C. Diff prophylaxis - Lactobacillus 1 tablet 4x/day. * Diarrhea - Loperamide 2MG Q2H PRN. * GERD - Pantoprazole 20MG BID, Mylanta II 30ML Q6H PRN. * Stump incision - Apply Mupurocin ointment daily. * Nausea - Phenergan 25MG Q4H PRN. * Insomnia - Temazepam 15MG QHS PRN. * Hypertension - Maxzide 37.5/25MG daily.
[2017-06-28 21:06] LABS: Bedside Glucose 270 mg/dL (70-110)
[2017-06-28] MEDS: Gabapentin 400 MG Capsule PO (22:03)
[2017-06-28] MEDS: Gabapentin 800 MG Tablet PO (22:03)
[2017-06-28] MEDS: morphine SR 15 MG Tablet PO (22:04)
[2017-06-28] MEDS: Atorvastatin Calcium 40 MG Tablet PO (22:04)
[2017-06-28] MEDS: 0.9% NaCl PICC Flush IV (22:05)
[2017-06-29] MEDS: 0.9% NaCl PICC Flush IV ×2 (05:30→21:42)
[2017-06-29] MEDS: Glucerna Shake 120 ML LIQUID PO ×4 (05:32→21:41)
[2017-06-29] MEDS: morphine SR 15 MG Tablet PO ×3 (05:32→21:41)
[2017-06-29] MEDS: Triamterene 37.5MG/Hctz 25MG Capsule 1 CAP PO (05:33)
[2017-06-29] MEDS: buPROPion (XL) 150 MG TABLET.XL PO (05:33)
[2017-06-29] MEDS: Losartan Potassium 100 MG Tablet PO (05:33)
[2017-06-29] MEDS: Pantoprazole Sodium 20 MG Tablet PO ×2 (05:33→17:29)
[2017-06-29] MEDS: Naproxen 500 MG Tablet PO ×2 (05:33→17:29)
[2017-06-29] MEDS: Citalopram 20 MG Tablet 40 MG PO (05:33)
[2017-06-29] MEDS: Glimepiride 4 MG Tablet PO ×2 (05:33→17:29)
[2017-06-29 05:38] LABS: Absolute Lymphocyte Count 1.26 X10^3/ul (0.83-4.51); Absolute Neutrophil Count 3.2 X10^3/uL (2.0-7.7); Basophil# 0.03 X10^3/uL; Basophil% 0.6 % (0-1); Eosinophil# 0.52 X10^3/uL; Eosinophils% 9.6 % (0-5); Hematocrit 29.7 % (40-54); Hemoglobin 9.2 g/dl (13.0-16.5); Lymphocyte # 1.26 X10^3/ul (4.0); Lymphocyte % 23.3 % (19-41); Mean Corpuscular Hgb 26.7 pg (27.0-32.0); Mean Corpuscular Volume 86.1 fL (80-94); Mean Platelet Vol. 9.4 fl (6.2-12.0); Monocyte# 0.44 X10^3/uL; Monocyte% 8.1 % (0-10); Neutrophil # 3.15 X10^3/uL (2.7-7.7); Neutrophil % 58.2 % (47-70); Platelet Count 280 K/mm3 (150-450); RBC Distribution Width CV 15.6 % (11.6-14.6); RBC Distribution Width SD 47.7 fl (35.1-43.9); Red Blood Count 3.45 M/mm3 (4.6-6.2); White Blood Count 5.4 K/mm3 (4.4-11.0)
[2017-06-29 05:48] LABS: Anion Gap 8 (5-15); BUN 28 mg/dL (7-18); BUN/Creat Ratio 27.5 RATIO (10-20); Calcium,Total 9.4 mg/dL (8.5-10.1); Chloride 103 mmol/L (98-107); Creatinine, Serum 1.02 mg/dL (0.70-1.30); EST Glomerular Filtration Rate 79 mL/min (>60); Est Glom Filt Rate - Afr Amer 96 mL/min (>60); Glucose 222 mg/dL (74-106); Potassium 4.3 mmol/L (3.5-5.1); Sodium Level 140 mmol/L (136-145)
[2017-06-29] MEDS: Mupirocin Ointment 22gm Tube 1 APPLIC TOPICAL (05:54)
[2017-06-29 05:56] VITALS: O2SAT 98
[2017-06-29 06:02] LABS: POSITIVE COUNT NO; POSITIVE DIFFERENTIAL NO; POSITIVE MORPHOLOGY NO
[2017-06-29] MEDS: Enoxaparin 40 MG/0.4 ML Syringe SC (06:50)
[2017-06-29 07:00] LABS: Bedside Glucose 262 mg/dL (70-110)
[2017-06-29] MEDS: Iron Polysaccharide Complex 150 MG CAPSULE PO (08:56)
[2017-06-29] MEDS: metFORMIN HCl 1,000 MG Tablet 1000 MG PO ×2 (08:56→17:29)
[2017-06-29] MEDS: Gabapentin 800 MG Tablet PO ×4 (08:56→21:41)
--- NOTE | 2017-06-29 09:46 | NURSING ---
pt tray just arrived from dietary. pt dozes off easily, awakens easily & denies that he dozes. Pt assisted to side of bed to eat brkfst per his request. Novolog given. Call light in reach. Will monitor.
[2017-06-29 11:20] LABS: Bedside Glucose 272 mg/dL (70-110)
--- NOTE | 2017-06-29 11:50 | NURSING ---
STOPPER FROM [employer] D[employer] OPENED AND SPILLED FLUID ON CONCHIS WRAP WHILE POSITIONING ON SIDE OF BED W/ASSIST FROM BACK SEAM STITCHER. NEW CONCHIS WRAP APPLIED AND NEY DRAIN EMPTIED AND RESECURED TO CONCHIS WRAP.
[2017-06-29 15:22] VITALS: BP 136/83; PULSE 79; RESP 16; TEMP 37.2; O2SAT 99
[2017-06-29 17:01] LABS: Bedside Glucose 209 mg/dL (70-110)
[2017-06-29 20:56] LABS: Bedside Glucose 284 mg/dL (70-110)
[2017-06-29] MEDS: Atorvastatin Calcium 40 MG Tablet PO (21:41)
[2017-06-29] MEDS: Gabapentin 400 MG Capsule PO (21:41)
--- NOTE | 2017-06-29 22:13 | NURSING ---
Addendum entered by Lacie Ray 06/29/17 22:51: PICC line was removed from Rt upper arm without complications. Pt tolerated well. Pressure was held at site until hemostasis was achieved. Vaseline, sterile gauze and an occlusive dressing was applied. Original Note: Both lumen of PICC unable to be flushed or draw blood from. Numerous interventions were attempted. PICC is currently not being used at this time. Dr. Fernández updated. New order to D/C PICC line.
[2017-06-30] MEDS: morphine SR 15 MG Tablet PO ×3 (05:15→22:00)
[2017-06-30] MEDS: Triamterene 37.5MG/Hctz 25MG Capsule 1 CAP PO (05:15)
[2017-06-30] MEDS: Pantoprazole Sodium 20 MG Tablet PO ×2 (05:15→17:12)
[2017-06-30] MEDS: buPROPion (XL) 150 MG TABLET.XL PO (05:15)
[2017-06-30] MEDS: Naproxen 500 MG Tablet PO ×2 (05:15→17:12)
[2017-06-30] MEDS: Glucerna Shake 120 ML LIQUID PO ×4 (05:15→22:02)
[2017-06-30] MEDS: Losartan Potassium 100 MG Tablet PO (05:16)
[2017-06-30] MEDS: Citalopram 20 MG Tablet 40 MG PO (05:16)
[2017-06-30] MEDS: Enoxaparin 40 MG/0.4 ML Syringe SC (05:17)
[2017-06-30] MEDS: Glimepiride 4 MG Tablet PO ×2 (05:17→17:12)
[2017-06-30 06:35] LABS: Bedside Glucose 243 mg/dL (70-110)
[2017-06-30] MEDS: Iron Polysaccharide Complex 150 MG CAPSULE PO (08:23)
[2017-06-30] MEDS: Gabapentin 800 MG Tablet PO ×4 (08:23→22:06)
[2017-06-30] MEDS: metFORMIN HCl 1,000 MG Tablet 1000 MG PO ×2 (08:23→17:12)
--- NOTE | 2017-06-30 09:41 | NURSING ---
Dr. Sanders consulted at this time
[2017-06-30 11:31] LABS: Bedside Glucose 280 mg/dL (70-110)
[2017-06-30] MEDS: Mupirocin Ointment 22gm Tube 1 APPLIC TOPICAL (11:53)
[2017-06-30] MEDS: oxyCODONE 5 MG Tablet 10 MG PO (11:59)
[2017-06-30] MEDS: diazePAM 5 MG Tablet PO (13:14)
--- NOTE | 2017-06-30 13:36 | PCM.PN.ID ---
Subjective: Feeling good, in TCU, no fever, pain improving. - Physical Exam General: Alert, Cooperative, No apparent distress Skin: Incision - L BKA wrapped Vital Signs Temp Pulse Resp BP Pulse Ox 98.9 F 79 16 136/83 H 99 06/29/17 15:22 06/29/17 15:22 06/29/17 15:22 06/29/17 15:22 06/29/17 15:22 Oxygen Delivery Method Room Air Weight: 142 kg Body Mass Index (BMI) 39.1 Finger Stick Blood Glucose 205 Intake and Output for Last 24 Hours 06/28/17 06/29/17 06/30/17 23:59 23:59 23:59 Intake Total 300 / 300 540 / 540 820 / 820 Output Total 937 / 937 1730 / 1730 Balance 300 / 300 -397 / -397 -910 / -910 POC Glucose 06/30/17 06/30/17 06/29/17 11:04 06:27 20:45 POC Glucose 280 H 243 H 284 H 06/29/17 16:52 POC Glucose 209 H Medical Necessity - Tobacco Use Smoking Status: Former smoker Tobacco Use: Non-smoker Route of nutrition/ use of supplements: [] Nutritional Intake: [] IV Site: [] Tam Catheter: [] - Assessment/Plan Antibiotics: [] Assessment/Plan: [] 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 Rodriguez. Surg cx of foot showing staph aureus. Stable off dapto/zosyn since 06/27. Normal wbc and no fever. Cont to monitor off of abx. Will follow as needed, please call with any questions.
--- NOTE | 2017-06-30 14:32 | NURSING ---
Dr. Rodriguez consulted this AM
[2017-06-30 15:07] VITALS: BP 130/64; PULSE 80; RESP 18; TEMP 36.2; O2SAT 91
[2017-06-30 17:01] LABS: Bedside Glucose 335 mg/dL (70-110)
[2017-06-30 21:21] LABS: Bedside Glucose 245 mg/dL (70-110)
[2017-06-30] MEDS: Gabapentin 400 MG Capsule PO (22:00)
[2017-06-30] MEDS: Atorvastatin Calcium 40 MG Tablet PO (22:00)
--- NOTE | 2017-06-30 22:20 | NURSING ---
Pt daughter brought to this nurses attention that she had found insect on floor. EVS and dyehouse worker were called and clarified it to be a bedbug. Pt daughter left the hospital. Pt stated to of had numerous visitors in today. This nurse and MARY Campbell assisted pt with complete bed bath and no bite maya were identified. Pt was placed in a new gown and moved to RM 11. Room 21 was blocked off by EVS and С[place]kin was called. All clothing was double bagged and left in room.
[2017-07-01] MEDS: morphine SR 15 MG Tablet PO ×3 (05:29→21:10)
[2017-07-01] MEDS: Pantoprazole Sodium 20 MG Tablet PO ×2 (05:30→18:17)
[2017-07-01] MEDS: Losartan Potassium 100 MG Tablet PO (05:30)
[2017-07-01] MEDS: Triamterene 37.5MG/Hctz 25MG Capsule 1 CAP PO (05:30)
[2017-07-01] MEDS: Glimepiride 4 MG Tablet PO ×2 (05:30→18:48)
[2017-07-01] MEDS: Naproxen 500 MG Tablet PO ×2 (05:30→18:16)
[2017-07-01] MEDS: Enoxaparin 40 MG/0.4 ML Syringe SC (05:30)
[2017-07-01] MEDS: Citalopram 20 MG Tablet 40 MG PO (05:30)
[2017-07-01] MEDS: buPROPion (XL) 150 MG TABLET.XL PO (05:36)
[2017-07-01] MEDS: Glucerna Shake 120 ML LIQUID PO ×4 (05:36→21:13)
[2017-07-01 06:20] LABS: Bedside Glucose 226 mg/dL (70-110)
[2017-07-01 07:01] LABS: Bedside Glucose 246 mg/dL (70-110)
[2017-07-01] MEDS: Iron Polysaccharide Complex 150 MG CAPSULE PO (08:42)
[2017-07-01] MEDS: Gabapentin 800 MG Tablet PO ×4 (08:42→21:01)
[2017-07-01] MEDS: metFORMIN HCl 1,000 MG Tablet 1000 MG PO ×2 (08:42→18:48)
[2017-07-01] MEDS: oxyCODONE 5 MG Tablet 10 MG PO ×2 (08:45→18:19)
[2017-07-01 12:00] LABS: Bedside Glucose 185 mg/dL (70-110)
[2017-07-01] MEDS: diazePAM 5 MG Tablet PO (13:51)
--- NOTE | 2017-07-01 14:50 | PCM.PN.RX ---
<Jean Tamip D - Last Filed: 07/01/17 14:50> Progress Note - Pharmacy Subjective: [facility] Admission Objective: Allergies cefepime Allergy (Verified 06/19/17 11:36) Hives lisinopril Allergy (Verified 06/19/17 11:36) cough sulfamethoxazole [From ] Allergy (Verified 06/19/17 11:36) turned red trimethoprim [From ] Allergy (Verified 06/19/17 11:36) turned red Home Medications Medication Instructions Recorded Insulin Detemir [Levemir FlexPen] 50 units SC BID 10/12/14 Citalopram [Celexa] 40 mg PO DAILY 11/15/14 Metformin HCl [Glucophage] 1,000 mg PO BIDCM 11/15/14 Losartan Potassium [Cozaar] 100 mg PO DAILY 06/05/16 buPROPion XL [Wellbutrin Xl] 150 mg PO DAILY 01/21/17 glimepiride 4 mg tablet 4 mg PO BID tab 01/31/17 Insulin Aspart [Novolog Flexpen] 15 units SC TIDCM 03/24/17 Triamterene/Hydrochlorothiazid 1 each PO DAILY 03/24/17 [Triamterene-Hctz 37.5-25 mg Cp] Naproxen [Naprosyn] 500 mg PO BID 05/28/17 Albuterol Aerosols [Ventolin 2.5 mg INHALATION Q4H PRN PRN 06/09/17 Aerosols] Loperamide [Imodium] 2 mg PO Q2H PRN PRN capsule 06/12/17 Acetaminophen [Tylenol Tablet] 1,000 mg PO Q8H PRN PRN 06/19/17 Atorvastatin Calcium [Lipitor] 40 mg PO QHS 06/19/17 Bisacodyl [Dulcolax] 10 mg PO DAILY PRN PRN 06/19/17 Glucerna Shake 120 ml PO 4X/DAY 06/19/17 Heparin Sodium,Porcine/Pf [Heparin 500 unit IV UD PRN 06/19/17 500 Unit/5 ml (100/ml)] Iron Polysaccharide Complex 150 mg PO DAILYCM 06/19/17 [Ferrex 150] Lactobacillus Acidophilus 1 tablet PO 4X/DAY 06/19/17 [Acidophilus] Mag Hydrox/Al Hydrox/Simeth 30 ml PO Q6H PRN PRN 06/19/17 [Mylanta II] Polyethylene Glycol 8000 17 gm PO DAILY 06/19/17 [Polyethylene Glycol] Senna/Docusate Sodium [Senokot-S] 2 tablet PO BID 06/19/17 Diazepam [Valium] 5 mg PO .[id number] PRN PRN #40 tab 06/28/17 Gabapentin [Neurontin] 400 mg PO QHS 06/28/17 Gabapentin [Neurontin] 800 mg PO 4X/DAY #120 tab 06/28/17 Insulin Aspart [Novolog Flexpen] See Protocol SC ACHS 06/28/17 Nutritional Supplement [Greg - 1 packet PO BIDCM 06/28/17 ORANGE FLAVOR] Oxycodone [Oxyir] 10 mg PO Q4H PRN PRN #60 tab 06/28/17 Pantoprazole Sodium [Protonix] 20 mg PO BID 06/28/17 Temazepam [Restoril] 15 mg PO QHS PRN PRN capsule 06/28/17 morphine SR tablet [Ms Contin] 15 mg PO TID #30 tab 06/28/17 proMETHazine tablet [Phenergan 25 mg PO Q4H PRN PRN tablet 06/28/17 tablet] Current Medications Generic Name Dose Route Start Last Admin Trade Name Freq PRN Reason Stop Dose Admin Acetaminophen 1,000 mg 06/28/17 16:58 Tylenol PO Q8H PRN PRN Mild Pain (scale 0-3)/T>100.7 Al Hydroxide/Mg Hydroxide 30 ml 06/28/17 16:58 Mylanta Ii PO Q6H PRN PRN GERD Albuterol Sulfate 2.5 mg 06/28/17 16:58 Ventolin Aerosols INHALATION Q4H PRN PRN sob/ wheezing Atorvastatin Calcium 40 mg 06/28/17 22:00 06/30/17 22:00 Lipitor PO 40 mg QHS [facility] Administration Bisacodyl 10 mg 06/28/17 16:58 Dulcolax PO DAILY PRN PRN Constipation Bupropion HCl 150 mg 06/29/17 06:00 07/01/17 05:36 Wellbutrin Xl PO 150 mg DAILY [facility] Administration Citalopram Hydrobromide 40 mg 06/29/17 06:00 07/01/17 05:30 Celexa PO 40 mg DAILY [facility] Administration Dextrose 0 gm 06/28/17 17:00 D50w Syringe IV X1 PRN Hypoglycemia Protocol Diazepam 5 mg 06/28/17 16:58 07/01/17 13:51 Valium PO 5 mg Q4H PRN PRN Administration SPASMS Enoxaparin Sodium 40 mg 06/29/17 06:00 07/01/17 05:30 Lovenox SC 40 mg DAILY@0600 [facility] Administration Gabapentin 400 mg 06/28/17 22:00 06/30/17 22:00 Neurontin PO 400 mg QHS [facility] Administration Gabapentin 800 mg 06/28/17 22:00 07/01/17 12:11 Neurontin PO 800 mg 4X/DAYCM [facility] Administration Glimepiride 4 mg 06/28/17 18:00 07/01/17 05:30 Amaryl PO 4 mg BID [facility] Administration Glucagon 1 mg 06/28/17 17:00 IM .X1 PRN Hypoglycemia Heparin Sodium (Beef Lung) 500 unit 06/28/17 16:58 Heparin 500 Unit/5 Ml (100/Ml) IV UD PRN SALINE FLUSH Heparin Sodium (Beef Lung) 500 unit 06/28/17 19:03 Heparin 500 Unit/5 Ml (100/Ml) IV UD PRN HEPARIN FLUSH Insulin Aspart 33 units 07/01/17 07:37 07/01/17 12:11 Novolog Flexpen ([facility]) SC 33 units TIDCM [facility] Administration Insulin Detemir 50 units 06/28/17 18:00 07/01/17 06:16 Levemir ([facility]) SC 50 u BID [facility] Administration Lactobacillus Acidophilus 1 tablet 06/28/17 22:00 07/01/17 12:11 Acidophilus PO 1 tablet 4X/DAY [facility] Administration Loperamide HCl 2 mg 06/28/17 16:58 Imodium PO Q2H PRN PRN LOOSE STOOLS Losartan Potassium 100 mg 06/29/17 06:00 07/01/17 05:30 Cozaar PO 100 mg DAILY [facility] Administration Metformin HCl 1,000 mg 06/29/17 08:00 07/01/17 08:42 Glucophage PO 1,000 mg BIDCM [facility] Administration Morphine Sulfate 15 mg 06/28/17 22:00 07/01/17 13:48 Ms Contin PO 15 mg TID [facility] Administration Mupirocin 1 applic 07/01/17 03:46 Bactroban TOPICAL DAILY PRN Dressing change Protocol Naproxen 500 mg 06/28/17 18:00 07/01/17 05:30 Naprosyn PO 500 mg BID [facility] Administration Nutritional Formula 1 packet 06/28/17 17:00 07/01/17 12:11 Greg - Seneca Flavor PO 1 packet BIDCM [facility] Administration Nutritional Formula (Lactose Free) 120 ml 06/28/17 18:22 07/01/17 12:10 Glucerna Shake PO 120 ml 4X/DAY [facility] Administration Oxycodone HCl 10 mg 06/28/17 16:58 07/01/17 08:45 Oxyir PO 10 mg Q4H PRN PRN Administration Moderate Pain (pain scale 4-5) Pantoprazole Sodium 20 mg 06/28/17 18:00 07/01/17 05:30 Protonix PO 20 mg BID [facility] Administration Polyethylene Glycol 17 gm 06/29/17 06:00 07/01/17 05:36 Miralax PO Not Given DAILY [facility] Polysaccharide Iron Complex 150 mg 06/29/17 08:00 07/01/17 08:42 Ferrex 150 PO 150 mg DAILYCM [facility] Administration Promethazine HCl 25 mg 06/28/17 16:58 Phenergan Tablet PO Q4H PRN PRN NAUSEA/VOMITING Senna/Docusate Sodium 2 tablet 06/28/17 18:00 07/01/17 05:36 Senokot-S, Yael-Colace PO Not Given BID [facility] Sodium Chloride 10 - 20 ml 06/28/17 19:03 06/29/17 21:42 IV 20 ml UD PRN Administration PICC FLUSH Temazepam 15 mg 06/28/17 16:58 Restoril PO QHS PRN PRN insomnia Triamterene/HCTZ 1 cap 06/29/17 06:00 07/01/17 05:30 Dyazide (G) PO 1 cap DAILY [facility] Administration Problem List (Last Reviewed 03/06/17 @ 09:46 by Renuka Key) Diabetes mellitus (Chronic) Venous insufficiency (Chronic) Hypertension (Chronic) Vital Signs Temp Pulse Resp BP Pulse Ox 97.2 F L 80 18 130/64 H 91 06/30/17 15:07 06/30/17 15:07 06/30/17 15:07 06/30/17 15:07 06/30/17 15:07 Oxygen Delivery Method Room Air Weight: 142 kg Body Mass Index (BMI) 39.1 Finger Stick Blood Glucose 205 Sodium 140 mmol/L (136-145) 06/29/17 05:05 Potassium 4.3 mmol/L (3.5-5.1) 06/29/17 05:05 Chloride 103 mmol/L (98-107) 06/29/17 05:05 Carbon Dioxide 29.0 mmol/L (21.0-32.0) 06/29/17 05:05 Anion Gap 8 (5-15) 06/29/17 05:05 BUN 28 mg/dL (7-18) H 06/29/17 05:05 Creatinine 1.02 mg/dL (0.70-1.30) 06/29/17 05:05 Est GFR (MDRD) Af Amer 96 mL/min (>60) 06/29/17 05:05 Est GFR (MDRD) Non-Af 79 mL/min (>60) 06/29/17 05:05 BUN/Creatinine Ratio 27.5 RATIO (10-20) H 06/29/17 05:05 Glucose 222 mg/dL (74-106) H 06/29/17 05:05 Assessment/Plan: 1) Pain APAP for mild pain, diazepam for spasm, gabapentin, MS Contin, naproxen twice daily, oxycodone for moderate pain. Continue to monitor daily pain scores, prn medication use. * 2) DM2/HLD Glimepiride twice daily, insulin detemir twice daily, insulin aspart 3x daily with meals, metformin, atorvastatin. Avg BGT 200s. Continue to monitor BGT, s/s hyper/hypoglycemia. * Patient on high doses of insulin, likely not receiving any benefit from glimepiride. Recommend to d/c glimepiride and substitute empagliflozin. 3) HTN Triamterene/HCTZ, losartan. BP/HR within goal ranges, BUN/SCr stable, K wnl. Continue to monitor BP/HR, renal function, electrolytes. 4) DVT PPx Enoxaparin daily. Continue to monitor s/s bleeding/clot. 5) Nutrition Glucerna, Fe, Greg. Continue to monitor clinically. 6) GI Lactobacillus 4x daily, Maalox prn, pantoprazole twice daily, promethazine prn. Continue to monitor s/s GI distress. 7) Derm Mupirocin daily. Continue to monitor clinically. Psychotropic Medications: 8) Depression Bupropion, citalopram. Continue to monitor s/s depression. 9) Insomnia Temazepam at HS prn. Continue to monitor prn medication use, for insomnia. Unnecessary Medications: None Bowel Regimen: 10) Senna/s, PEG, loperamide prn, bisacodyl prn. Continue to monitor prn medication use, for constipation/diarrhea. Date of Note:: 07/01/17 - Provider Comments Provider responsibility: Provider responsible to enter orders to implement recommendations <Bharath Fernández Chi - Last Filed: 07/01/17 20:42> Progress Note - Pharmacy Subjective: [] Objective: Allergies cefepime Allergy (Verified 06/19/17 11:36) Hives lisinopril Allergy (Verified 06/19/17 11:36) cough sulfamethoxazole [From ] Allergy (Verified 06/19/17 11:36) turned red trimethoprim [From ] Allergy (Verified 06/19/17 11:36) turned red Home Medications Medication Instructions Recorded Insulin Detemir [Levemir FlexPen] 50 units SC BID 10/12/14 Citalopram [Celexa] 40 mg PO DAILY 11/15/14 Metformin HCl [Glucophage] 1,000 mg PO BIDCM 11/15/14 Losartan Potassium [Cozaar] 100 mg PO DAILY 06/05/16 buPROPion XL [Wellbutrin Xl] 150 mg PO DAILY 01/21/17 glimepiride 4 mg tablet 4 mg PO BID tab 01/31/17 Insulin Aspart [Novolog Flexpen] 15 units SC TIDCM 03/24/17 Triamterene/Hydrochlorothiazid 1 each PO DAILY 03/24/17 [Triamterene-Hctz 37.5-25 mg Cp] Naproxen [Naprosyn] 500 mg PO BID 05/28/17 Albuterol Aerosols [Ventolin 2.5 mg INHALATION Q4H PRN PRN 06/09/17 Aerosols] Loperamide [Imodium] 2 mg PO Q2H PRN PRN capsule 06/12/17 Acetaminophen [Tylenol Tablet] 1,000 mg PO Q8H PRN PRN 06/19/17 Atorvastatin Calcium [Lipitor] 40 mg PO QHS 06/19/17 Bisacodyl [Dulcolax] 10 mg PO DAILY PRN PRN 06/19/17 Glucerna Shake 120 ml PO 4X/DAY 06/19/17 Heparin Sodium,Porcine/Pf [Heparin 500 unit IV UD PRN 06/19/17 500 Unit/5 ml (100/ml)] Iron Polysaccharide Complex 150 mg PO DAILYCM 06/19/17 [Ferrex 150] Lactobacillus Acidophilus 1 tablet PO 4X/DAY 06/19/17 [Acidophilus] Mag Hydrox/Al Hydrox/Simeth 30 ml PO Q6H PRN PRN 06/19/17 [Mylanta II] Polyethylene Glycol 8000 17 gm PO DAILY 06/19/17 [Polyethylene Glycol] Senna/Docusate Sodium [Senokot-S] 2 tablet PO BID 06/19/17 Diazepam [Valium] 5 mg PO .[id number] PRN PRN #40 tab 06/28/17 Gabapentin [Neurontin] 400 mg PO QHS 06/28/17 Gabapentin [Neurontin] 800 mg PO 4X/DAY #120 tab 06/28/17 Insulin Aspart [Novolog Flexpen] See Protocol SC ACHS 06/28/17 Nutritional Supplement [Greg - 1 packet PO BIDCM 06/28/17 ORANGE FLAVOR] Oxycodone [Oxyir] 10 mg PO Q4H PRN PRN #60 tab 06/28/17 Pantoprazole Sodium [Protonix] 20 mg PO BID 06/28/17 Temazepam [Restoril] 15 mg PO QHS PRN PRN capsule 06/28/17 morphine SR tablet [Ms Contin] 15 mg PO TID #30 tab 06/28/17 proMETHazine tablet [Phenergan 25 mg PO Q4H PRN PRN tablet 06/28/17 tablet] Current Medications Generic Name Dose Route Start Last Admin Trade Name Freq PRN Reason Stop Dose Admin Acetaminophen 1,000 mg 06/28/17 16:58 Tylenol PO Q8H PRN PRN Mild Pain (scale 0-3)/T>100.7 Al Hydroxide/Mg Hydroxide 30 ml 06/28/17 16:58 Mylanta Ii PO Q6H PRN PRN GERD Albuterol Sulfate 2.5 mg 06/28/17 16:58 Ventolin Aerosols INHALATION Q4H PRN PRN sob/ wheezing Atorvastatin Calcium 40 mg 06/28/17 22:00 06/30/17 22:00 Lipitor PO 40 mg QHS [facility] Administration Bisacodyl 10 mg 06/28/17 16:58 Dulcolax PO DAILY PRN PRN Constipation Bupropion HCl 150 mg 06/29/17 06:00 07/01/17 05:36 Wellbutrin Xl PO 150 mg DAILY [facility] Administration Citalopram Hydrobromide 40 mg 06/29/17 06:00 07/01/17 05:30 Celexa PO 40 mg DAILY [facility] Administration Dextrose 0 gm 06/28/17 17:00 D50w Syringe IV X1 PRN Hypoglycemia Protocol Diazepam 5 mg 06/28/17 16:58 07/01/17 13:51 Valium PO 5 mg Q4H PRN PRN Administration SPASMS Enoxaparin Sodium 40 mg 06/29/17 06:00 07/01/17 05:30 Lovenox SC 40 mg DAILY@0600 [facility] Administration Gabapentin 400 mg 06/28/17 22:00 06/30/17 22:00 Neurontin PO 400 mg QHS [facility] Administration Gabapentin 800 mg 06/28/17 22:00 07/01/17 18:16 Neurontin PO 800 mg 4X/DAYCM [facility] Administration Glimepiride 4 mg 06/28/17 18:00 07/01/17 18:48 Amaryl PO 4 mg BID [facility] Administration Glucagon 1 mg 06/28/17 17:00 IM .X1 PRN Hypoglycemia Heparin Sodium (Beef Lung) 500 unit 06/28/17 16:58 Heparin 500 Unit/5 Ml (100/Ml) IV UD PRN SALINE FLUSH Heparin Sodium (Beef Lung) 500 unit 06/28/17 19:03 Heparin 500 Unit/5 Ml (100/Ml) IV UD PRN HEPARIN FLUSH Insulin Aspart 33 units 07/01/17 07:37 07/01/17 18:43 Novolog Flexpen ([facility]) SC Not Given TIDCM [facility] Insulin Detemir 50 units 06/28/17 18:00 07/01/17 18:49 Levemir ([facility]) SC 50 u BID [facility] Administration Lactobacillus Acidophilus 1 tablet 06/28/17 22:00 07/01/17 18:16 Acidophilus PO 1 tablet 4X/DAY [facility] Administration Loperamide HCl 2 mg 06/28/17 16:58 Imodium PO Q2H PRN PRN LOOSE STOOLS Losartan Potassium 100 mg 06/29/17 06:00 07/01/17 05:30 Cozaar PO 100 mg DAILY [facility] Administration Metformin HCl 1,000 mg 06/29/17 08:00 07/01/17 18:48 Glucophage PO 1,000 mg BIDCM [facility] Administration Morphine Sulfate 15 mg 06/28/17 22:00 07/01/17 13:48 Ms Contin PO 15 mg TID [facility] Administration Mupirocin 1 applic 07/01/17 03:46 Bactroban TOPICAL DAILY PRN Dressing change Protocol Naproxen 500 mg 06/28/17 18:00 07/01/17 18:16 Naprosyn PO 500 mg BID [facility] Administration Nutritional Formula 1 packet 06/28/17 17:00 07/01/17 18:16 Greg - Seneca Flavor PO 1 packet BIDCM [facility] Administration Nutritional Formula (Lactose Free) 120 ml 06/28/17 18:22 07/01/17 18:16 Glucerna Shake PO 120 ml 4X/DAY [facility] Administration Oxycodone HCl 10 mg 06/28/17 16:58 07/01/17 18:19 Oxyir PO 10 mg Q4H PRN PRN Administration Moderate Pain (pain scale 4-5) Pantoprazole Sodium 20 mg 06/28/17 18:00 07/01/17 18:17 Protonix PO 20 mg BID [facility] Administration Polyethylene Glycol 17 gm 06/29/17 06:00 07/01/17 05:36 Miralax PO Not Given DAILY [facility] Polysaccharide Iron Complex 150 mg 06/29/17 08:00 07/01/17 08:42 [facility] Prometh[facility] HCl 25 mg 06/28/17 16:58 Phenergan Tablet PO Q4H PRN PRN NAUSEA/VOMITING Senna/Docusate Sodium 2 tablet 06/28/17 18:00 07/01/17 18:12 Senokot-S, Yael-Colace PO Not Given BID [facility] Sodium Chloride 10 - 20 ml 06/28/17 19:03 06/29/17 21:42 IV 20 ml UD PRN Administration PICC FLUSH Temazepam 15 mg 06/28/17 16:58 Restoril PO QHS PRN PRN insomnia Triamterene/HCTZ 1 cap 06/29/17 06:00 07/01/17 05:30 Dyazide (G) PO 1 cap DAILY [facility] Administration Problem List (Last Reviewed 03/06/17 @ 09:46 by Renuka Key) Diabetes mellitus (Chronic) Venous insufficiency (Chronic) Hypertension (Chronic) Vital Signs Temp Pulse Resp BP Pulse Ox 97.6 F L 89 20 H 131/65 H 95 07/01/17 16:00 07/01/17 16:00 07/01/17 16:00 07/01/17 16:00 07/01/17 16:00 Oxygen Delivery Method Room Air Weight: 142 kg Body Mass Index (BMI) 39.1 Finger Stick Blood Glucose 205 Sodium 140 mmol/L (136-145) 06/29/17 05:05 Potassium 4.3 mmol/L (3.5-5.1) 06/29/17 05:05 Chloride 103 mmol/L (98-107) 06/29/17 05:05 Carbon Dioxide 29.0 mmol/L (21.0-32.0) 06/29/17 05:05 Anion Gap 8 (5-15) 06/29/17 05:05 BUN 28 mg/dL (7-18) H 06/29/17 05:05 Creatinine 1.02 mg/dL (0.70-1.30) 06/29/17 05:05 Est GFR (MDRD) Af Amer 96 mL/min (>60) 06/29/17 05:05 Est GFR (MDRD) Non-Af 79 mL/min (>60) 06/29/17 05:05 BUN/Creatinine Ratio 27.5 RATIO (10-20) H 06/29/17 05:05 Glucose 222 mg/dL (74-106) H 06/29/17 05:05 Assessment/Plan: Psychotropic Medications: Unnecessary Medications: Bowel Regimen: - Provider Comments Provider responsibility: Provider responsible to enter orders to implement recommendations Provider Comments to Recommendations by Pharmacy: Agree
--- NOTE | 2017-07-01 15:03 | PHA.CONS_ITS ---
<Jean Tamip D - Last Filed: 07/01/17 14:50> Progress Note - Pharmacy Subjective: TCU Admission Objective: Allergies cefepime Allergy (Verified 06/19/17 11:36) Hives lisinopril Allergy (Verified 06/19/17 11:36) cough sulfamethoxazole [From ] Allergy (Verified 06/19/17 11:36) turned red trimethoprim [From ] Allergy (Verified 06/19/17 11:36) turned red Home Medications Medication Instructions Recorded Insulin Detemir [Levemir FlexPen] 50 units SC BID 10/12/14 Citalopram [Celexa] 40 mg PO DAILY 11/15/14 Metformin HCl [Glucophage] 1,000 mg PO BIDCM 11/15/14 Losartan Potassium [Cozaar] 100 mg PO DAILY 06/05/16 buPROPion XL [Wellbutrin Xl] 150 mg PO DAILY 01/21/17 glimepiride 4 mg tablet 4 mg PO BID tab 01/31/17 Insulin Aspart [Novolog Flexpen] 15 units SC TIDCM 03/24/17 Triamterene/Hydrochlorothiazid 1 each PO DAILY 03/24/17 [Triamterene-Hctz 37.5-25 mg Cp] Naproxen [Naprosyn] 500 mg PO BID 05/28/17 Albuterol Aerosols [Ventolin 2.5 mg INHALATION Q4H PRN PRN 06/09/17 Aerosols] Loperamide [Imodium] 2 mg PO Q2H PRN PRN capsule 06/12/17 Acetaminophen [Tylenol Tablet] 1,000 mg PO Q8H PRN PRN 06/19/17 Atorvastatin Calcium [Lipitor] 40 mg PO QHS 06/19/17 Bisacodyl [Dulcolax] 10 mg PO DAILY PRN PRN 06/19/17 Glucerna Shake 120 ml PO 4X/DAY 06/19/17 Heparin Sodium,Porcine/Pf [Heparin 500 unit IV UD PRN 06/19/17 500 Unit/5 ml (100/ml)] Iron Polysaccharide Complex 150 mg PO DAILYCM 06/19/17 [Ferrex 150] Lactobacillus Acidophilus 1 tablet PO 4X/DAY 06/19/17 [Acidophilus] Mag Hydrox/Al Hydrox/Simeth 30 ml PO Q6H PRN PRN 06/19/17 [Mylanta II] Polyethylene Glycol 8000 17 gm PO DAILY 06/19/17 [Polyethylene Glycol] Senna/Docusate Sodium [Senokot-S] 2 tablet PO BID 06/19/17 Diazepam [Valium] 5 mg PO .[id number] PRN PRN #40 tab 06/28/17 Gabapentin [Neurontin] 400 mg PO QHS 06/28/17 Gabapentin [Neurontin] 800 mg PO 4X/DAY #120 tab 06/28/17 Insulin Aspart [Novolog Flexpen] See Protocol SC ACHS 06/28/17 Nutritional Supplement [Greg - 1 packet PO BIDCM 06/28/17 ORANGE FLAVOR] Oxycodone [Oxyir] 10 mg PO Q4H PRN PRN #60 tab 06/28/17 Pantoprazole Sodium [Protonix] 20 mg PO BID 06/28/17 Temazepam [Restoril] 15 mg PO QHS PRN PRN capsule 06/28/17 morphine SR tablet [Ms Contin] 15 mg PO TID #30 tab 06/28/17 proMETHazine tablet [Phenergan 25 mg PO Q4H PRN PRN tablet 06/28/17 tablet] Current Medications Generic Name Dose Route Start Last Admin Trade Name Freq PRN Reason Stop Dose Admin Acetaminophen 1,000 mg 06/28/17 16:58 Tylenol PO Q8H PRN PRN Mild Pain (scale 0-3)/T>100.7 Al Hydroxide/Mg Hydroxide 30 ml 06/28/17 16:58 Mylanta Ii PO Q6H PRN PRN GERD Albuterol Sulfate 2.5 mg 06/28/17 16:58 Ventolin Aerosols INHALATION Q4H PRN PRN sob/ wheezing Atorvastatin Calcium 40 mg 06/28/17 22:00 06/30/17 22:00 Lipitor PO 40 mg QHS SW[facility]I Administration Bisacodyl 10 mg 06/28/17 16:58 Dulcolax PO DAILY PRN PRN Constipation Bupropion HCl 150 mg 06/29/17 06:00 07/01/17 05:36 Wellbutrin Xl PO 150 mg DAILY [facility] Administration Citalopram Hydrobromide 40 mg 06/29/17 06:00 07/01/17 05:30 Celexa PO 40 mg DAILY [facility] Administration Dextrose 0 gm 06/28/17 17:00 D50w Syringe IV X1 PRN Hypoglycemia Protocol Diazepam 5 mg 06/28/17 16:58 07/01/17 13:51 Valium PO 5 mg Q4H PRN PRN Administration SPASMS Enoxaparin Sodium 40 mg 06/29/17 06:00 07/01/17 05:30 Lovenox SC 40 mg DAILY@0600 [facility] Administration Gabapentin 400 mg 06/28/17 22:00 06/30/17 22:00 Neurontin PO 400 mg QHS [facility] Administration Gabapentin 800 mg 06/28/17 22:00 07/01/17 12:11 Neurontin PO 800 mg 4X/DAYCM [facility] Administration Glimepiride 4 mg 06/28/17 18:00 07/01/17 05:30 Amaryl PO 4 mg BID [facility] Administration Glucagon 1 mg 06/28/17 17:00 IM .X1 PRN Hypoglycemia Heparin Sodium (Beef Lung) 500 unit 06/28/17 16:58 Heparin 500 Unit/5 Ml (100/Ml) IV UD PRN SALINE FLUSH Heparin Sodium (Beef Lung) 500 unit 06/28/17 19:03 Heparin 500 Unit/5 Ml (100/Ml) IV UD PRN HEPARIN FLUSH Insulin Aspart 33 units 07/01/17 07:37 07/01/17 12:11 Novolog Flexpen ([facility]) SC 33 units TIDCM [facility] Administration Insulin Detemir 50 units 06/28/17 18:00 07/01/17 06:16 Levemir ([facility]) SC 50 u BID [facility] Administration Lactobacillus Acidophilus 1 tablet 06/28/17 22:00 07/01/17 12:11 Acidophilus PO 1 tablet 4X/DAY [facility] Administration Loperamide HCl 2 mg 06/28/17 16:58 Imodium PO Q2H PRN PRN LOOSE STOOLS Losartan Potassium 100 mg 06/29/17 06:00 07/01/17 05:30 Cozaar PO 100 mg DAILY [facility] Administration Metformin HCl 1,000 mg 06/29/17 08:00 07/01/17 08:42 Glucophage PO 1,000 mg BIDCM [facility] Administration Morphine Sulfate 15 mg 06/28/17 22:00 07/01/17 13:48 Ms Contin PO 15 mg TID [facility] Administration Mupirocin 1 applic 07/01/17 03:46 Bactroban TOPICAL DAILY PRN Dressing change Protocol Naproxen 500 mg 06/28/17 18:00 07/01/17 05:30 Naprosyn PO 500 mg BID [facility] Administration Nutritional Formula 1 packet 06/28/17 17:00 07/01/17 12:11 Greg - Craven Flavor PO 1 packet BIDCM [facility] Administration Nutritional Formula (Lactose Free) 120 ml 06/28/17 18:22 07/01/17 12:10 Glucerna Shake PO 120 ml 4X/DAY [facility] Administration Oxycodone HCl 10 mg 06/28/17 16:58 07/01/17 08:45 Oxyir PO 10 mg Q4H PRN PRN Administration Moderate Pain (pain scale 4-5) Pantoprazole Sodium 20 mg 06/28/17 18:00 07/01/17 05:30 Protonix PO 20 mg BID [facility] Administration Polyethylene Glycol 17 gm 06/29/17 06:00 07/01/17 05:36 Miralax PO Not Given DAILY [facility] Polysaccharide Iron Complex 150 mg 06/29/17 08:00 07/01/17 08:42 Ferrex 150 PO 150 mg DAILYCM [facility] Administration Promethazine HCl 25 mg 06/28/17 16:58 Phenergan Tablet PO Q4H PRN PRN NAUSEA/VOMITING Senna/Docusate Sodium 2 tablet 06/28/17 18:00 07/01/17 05:36 Senokot-S, Yael-Colace PO Not Given BID [facility] Sodium Chloride 10 - 20 ml 06/28/17 19:03 06/29/17 21:42 IV 20 ml UD PRN Administration PICC FLUSH Temazepam 15 mg 06/28/17 16:58 Restoril PO QHS PRN PRN insomnia Triamterene/HCTZ 1 cap 06/29/17 06:00 07/01/17 05:30 Dyazide (G) PO 1 cap DAILY [facility] Administration Problem List (Last Reviewed 03/06/17 @ 09:46 by Renuka Key) Diabetes mellitus (Chronic) Venous insufficiency (Chronic) Hypertension (Chronic) Vital Signs Temp Pulse Resp BP Pulse Ox 97.2 F L 80 18 130/64 H 91 06/30/17 15:07 06/30/17 15:07 06/30/17 15:07 06/30/17 15:07 06/30/17 15:07 Oxygen Delivery Method Room Air Weight: 142 kg Body Mass Index (BMI) 39.1 Finger Stick Blood Glucose 205 Sodium 140 mmol/L (136-145) 06/29/17 05:05 Potassium 4.3 mmol/L (3.5-5.1) 06/29/17 05:05 Chloride 103 mmol/L (98-107) 06/29/17 05:05 Carbon Dioxide 29.0 mmol/L (21.0-32.0) 06/29/17 05:05 Anion Gap 8 (5-15) 06/29/17 05:05 BUN 28 mg/dL (7-18) H 06/29/17 05:05 Creatinine 1.02 mg/dL (0.70-1.30) 06/29/17 05:05 Est GFR (MDRD) Af Amer 96 mL/min (>60) 06/29/17 05:05 Est GFR (MDRD) Non-Af 79 mL/min (>60) 06/29/17 05:05 BUN/Creatinine Ratio 27.5 RATIO (10-20) H 06/29/17 05:05 Glucose 222 mg/dL (74-106) H 06/29/17 05:05 Assessment/Plan: 1) Pain APAP for mild pain, diazepam for spasm, gabapentin, MS Contin, naproxen twice daily, oxycodone for moderate pain. Continue to monitor daily pain scores , prn medication use. * 2) DM2/HLD Glimepiride twice daily, insulin detemir twice daily, insulin aspart 3x daily with meals, metformin, atorvastatin. Avg BGT 200s. Continue to monitor BGT, s/s hyper/hypoglycemia. * Patient on high doses of insulin, likely not receiving any benefit from glimepiride. Recommend to d/c glimepiride and substitute empagliflozin. 3) HTN Triamterene/HCTZ, losartan. BP/HR within goal ranges, BUN/SCr stable, K wnl. Continue to monitor BP/HR, renal function, electrolytes. 4) DVT PPx Enoxaparin daily. Continue to monitor s/s bleeding/clot. 5) Nutrition Glucerna, Fe, Greg. Continue to monitor clinically. 6) GI Lactobacillus 4x daily, Maalox prn, pantoprazole twice daily, promethazine prn. Continue to monitor s/s GI distress. 7) Derm Mupirocin daily. Continue to monitor clinically. Psychotropic Medications: 8) Depression Bupropion, citalopram. Continue to monitor s/s depression. 9) Insomnia Temazepam at HS prn. Continue to monitor prn medication use, for insomnia. Unnecessary Medications: None Bowel Regimen: 10) Senna/s, PEG, loperamide prn, bisacodyl prn. Continue to monitor prn medication use, for constipation/diarrhea. Date of Note:: 07/01/17 - Provider Comments Provider responsibility: Provider responsible to enter orders to implement recommendations <Bharath Fernández Chi - Last Filed: 07/01/17 20:42> Progress Note - Pharmacy Subjective: [] Objective: Allergies cefepime Allergy (Verified 06/19/17 11:36) Hives lisinopril Allergy (Verified 06/19/17 11:36) cough sulfamethoxazole [From ] Allergy (Verified 06/19/17 11:36) turned red trimethoprim [From ] Allergy (Verified 06/19/17 11:36) turned red Home Medications Medication Instructions Recorded Insulin Detemir [Levemir FlexPen] 50 units SC BID 10/12/14 Citalopram [Celexa] 40 mg PO DAILY 11/15/14 Metformin HCl [Glucophage] 1,000 mg PO BIDCM 11/15/14 Losartan Potassium [Cozaar] 100 mg PO DAILY 06/05/16 buPROPion XL [Wellbutrin Xl] 150 mg PO DAILY 01/21/17 glimepiride 4 mg tablet 4 mg PO BID tab 01/31/17 Insulin Aspart [Novolog Flexpen] 15 units SC TIDCM 03/24/17 Triamterene/Hydrochlorothiazid 1 each PO DAILY 03/24/17 [Triamterene-Hctz 37.5-25 mg Cp] Naproxen [Naprosyn] 500 mg PO BID 05/28/17 Albuterol Aerosols [Ventolin 2.5 mg INHALATION Q4H PRN PRN 06/09/17 Aerosols] Loperamide [Imodium] 2 mg PO Q2H PRN PRN capsule 06/12/17 Acetaminophen [Tylenol Tablet] 1,000 mg PO Q8H PRN PRN 06/19/17 Atorvastatin Calcium [Lipitor] 40 mg PO QHS 06/19/17 Bisacodyl [Dulcolax] 10 mg PO DAILY PRN PRN 06/19/17 Glucerna Shake 120 ml PO 4X/DAY 06/19/17 Heparin Sodium,Porcine/Pf [Heparin 500 unit IV UD PRN 06/19/17 500 Unit/5 ml (100/ml)] Iron Polysaccharide Complex 150 mg PO DAILYCM 06/19/17 [Ferrex 150] Lactobacillus Acidophilus 1 tablet PO 4X/DAY 06/19/17 [Acidophilus] Mag Hydrox/Al Hydrox/Simeth 30 ml PO Q6H PRN PRN 06/19/17 [Mylanta II] Polyethylene Glycol 8000 17 gm PO DAILY 06/19/17 [Polyethylene Glycol] Senna/Docusate Sodium [Senokot-S] 2 tablet PO BID 06/19/17 Diazepam [Valium] 5 mg PO .[id number] PRN PRN #40 tab 06/28/17 Gabapentin [Neurontin] 400 mg PO QHS 06/28/17 Gabapentin [Neurontin] 800 mg PO 4X/DAY #120 tab 06/28/17 Insulin Aspart [Novolog Flexpen] See Protocol SC ACHS 06/28/17 Nutritional Supplement [Greg - 1 packet PO BIDCM 06/28/17 ORANGE FLAVOR] Oxycodone [Oxyir] 10 mg PO Q4H PRN PRN #60 tab 06/28/17 Pantoprazole Sodium [Protonix] 20 mg PO BID 06/28/17 Temazepam [Restoril] 15 mg PO QHS PRN PRN capsule 06/28/17 morphine SR tablet [Ms Contin] 15 mg PO TID #30 tab 06/28/17 proMETHazine tablet [Phenergan 25 mg PO Q4H PRN PRN tablet 06/28/17 tablet] Current Medications Generic Name Dose Route Start Last Admin Trade Name Freq PRN Reason Stop Dose Admin Acetaminophen 1,000 mg 06/28/17 16:58 Tylenol PO Q8H PRN PRN Mild Pain (scale 0-3)/T>100.7 Al Hydroxide/Mg Hydroxide 30 ml 06/28/17 16:58 Mylanta Ii PO Q6H PRN PRN GERD Albuterol Sulfate 2.5 mg 06/28/17 16:58 Ventolin Aerosols INHALATION Q4H PRN PRN sob/ wheezing Atorvastatin Calcium 40 mg 06/28/17 22:00 06/30/17 22:00 Lipitor PO 40 mg QHS SW[facility]I Administration Bisacodyl 10 mg 06/28/17 16:58 Dulcolax PO DAILY PRN PRN Constipation Bupropion HCl 150 mg 06/29/17 06:00 07/01/17 05:36 Wellbutrin Xl PO 150 mg DAILY [facility] Administration Citalopram Hydrobromide 40 mg 06/29/17 06:00 07/01/17 05:30 Celexa PO 40 mg DAILY [facility] Administration Dextrose 0 gm 06/28/17 17:00 D50w Syringe IV X1 PRN Hypoglycemia Protocol Diazepam 5 mg 06/28/17 16:58 07/01/17 13:51 Valium PO 5 mg Q4H PRN PRN Administration SPASMS Enoxaparin Sodium 40 mg 06/29/17 06:00 07/01/17 05:30 Lovenox SC 40 mg DAILY@0600 SW[facility]I Administration Gabapentin 400 mg 06/28/17 22:00 06/30/17 22:00 Neurontin PO 400 mg QHS SWATI Administration Gabapentin 800 mg 06/28/17 22:00 07/01/17 18:16 Neurontin PO 800 mg 4X/DAYCM [facility] Administration Glimepiride 4 mg 06/28/17 18:00 07/01/17 18:48 Amaryl PO 4 mg BID [facility] Administration Glucagon 1 mg 06/28/17 17:00 IM .X1 PRN Hypoglycemia Heparin Sodium (Beef Lung) 500 unit 06/28/17 16:58 Heparin 500 Unit/5 Ml (100/Ml) IV UD PRN SALINE FLUSH Heparin Sodium (Beef Lung) 500 unit 06/28/17 19:03 Heparin 500 Unit/5 Ml (100/Ml) IV UD PRN HEPARIN FLUSH Insulin Aspart 33 units 07/01/17 07:37 07/01/17 18:43 Novolog Flexpen ([facility]) SC Not Given TIDCM [facility] Insulin Detemir 50 units 06/28/17 18:00 07/01/17 18:49 Levemir ([facility]) SC 50 u BID [facility] Administration Lactobacillus Acidophilus 1 tablet 06/28/17 22:00 07/01/17 18:16 Acidophilus PO 1 tablet 4X/DAY [facility] Administration Loperamide HCl 2 mg 06/28/17 16:58 Imodium PO Q2H PRN PRN LOOSE STOOLS Losartan Potassium 100 mg 06/29/17 06:00 07/01/17 05:30 Cozaar PO 100 mg DAILY [facility] Administration Metformin HCl 1,000 mg 06/29/17 08:00 07/01/17 18:48 Glucophage PO 1,000 mg BIDCM [facility] Administration Morphine Sulfate 15 mg 06/28/17 22:00 07/01/17 13:48 Ms Contin PO 15 mg TID [facility] Administration Mupirocin 1 applic 07/01/17 03:46 Bactroban TOPICAL DAILY PRN Dressing change Protocol Naproxen 500 mg 06/28/17 18:00 07/01/17 18:16 Naprosyn PO 500 mg BID [facility] Administration Nutritional Formula 1 packet 06/28/17 17:00 07/01/17 18:16 Greg - Craven Flavor PO 1 packet BIDCM [facility] Administration Nutritional Formula (Lactose Free) 120 ml 06/28/17 18:22 07/01/17 18:16 Glucerna Shake PO 120 ml 4X/DAY [facility] Administration Oxycodone HCl 10 mg 06/28/17 16:58 07/01/17 18:19 Oxyir PO 10 mg Q4H PRN PRN Administration Moderate Pain (pain scale 4-5) Pantoprazole Sodium 20 mg 06/28/17 18:00 07/01/17 18:17 Protonix PO 20 mg BID [facility] Administration Polyethylene Glycol 17 gm 06/29/17 06:00 07/01/17 05:36 Miralax PO Not Given DAILY [facility] Polysaccharide Iron Complex 150 mg 06/29/17 08:00 07/01/17 08:42 [facility] Promethazine HCl 25 mg 06/28/17 16:58 Phenergan Tablet PO Q4H PRN PRN NAUSEA/VOMITING Senna/Docusate Sodium 2 tablet 06/28/17 18:00 07/01/17 18:12 Senokot-S, Yael-Colace PO Not Given BID [facility] Sodium Chloride 10 - 20 ml 06/28/17 19:03 06/29/17 21:42 IV 20 ml UD PRN Administration PICC FLUSH Temazepam 15 mg 06/28/17 16:58 Restoril PO QHS PRN PRN insomnia Triamterene/HCTZ 1 cap 06/29/17 06:00 07/01/17 05:30 Dyazide (G) PO 1 cap DAILY [facility] Administration Problem List (Last Reviewed 03/06/17 @ 09:46 by Renuka Key) Diabetes mellitus (Chronic) Venous insufficiency (Chronic) Hypertension (Chronic) Vital Signs Temp Pulse Resp BP Pulse Ox 97.6 F L 89 20 H 131/65 H 95 07/01/17 16:00 07/01/17 16:00 07/01/17 16:00 07/01/17 16:00 07/01/17 16:00 Oxygen Delivery Method Room Air Weight: 142 kg Body Mass Index (BMI) 39.1 Finger Stick Blood Glucose 205 Sodium 140 mmol/L (136-145) 06/29/17 05:05 Potassium 4.3 mmol/L (3.5-5.1) 06/29/17 05:05 Chloride 103 mmol/L (98-107) 06/29/17 05:05 Carbon Dioxide 29.0 mmol/L (21.0-32.0) 06/29/17 05:05 Anion Gap 8 (5-15) 06/29/17 05:05 BUN 28 mg/dL (7-18) H 06/29/17 05:05 Creatinine 1.02 mg/dL (0.70-1.30) 06/29/17 05:05 Est GFR (MDRD) Af Amer 96 mL/min (>60) 06/29/17 05:05 Est GFR (MDRD) Non-Af 79 mL/min (>60) 06/29/17 05:05 BUN/Creatinine Ratio 27.5 RATIO (10-20) H 06/29/17 05:05 Glucose 222 mg/dL (74-106) H 06/29/17 05:05 Assessment/Plan: Psychotropic Medications: Unnecessary Medications: Bowel Regimen: - Provider Comments Provider responsibility: Provider responsible to enter orders to implement recommendations Provider Comments to Recommendations by Pharmacy: Agree
[2017-07-01 16:00] VITALS: BP 131/65; PULSE 89; RESP 20; TEMP 36.4; O2SAT 95
[2017-07-01 17:01] LABS: Bedside Glucose 102 mg/dL (70-110)
--- NOTE | 2017-07-01 20:36 | PCM.PN.SRG ---
Subjective: Postop #7 Had left BKA on 06/24/17. Patient is sleeping at present. - Physical Exam General: - - patient is sleeping. Skin: Incision - left BKA stump incision is dry and intact. Swelling is slowly resolving. Stump is soft. No clinical evidence of hematoma. No vascular compromise noted on the stump. Vital Signs Temp Pulse Resp BP Pulse Ox 97.6 F L 89 20 H 131/65 H 95 07/01/17 16:00 07/01/17 16:00 07/01/17 16:00 07/01/17 16:00 07/01/17 16:00 Oxygen Delivery Method Room Air Weight: 313 lb 0.902 oz Body Mass Index (BMI) 39.1 Finger Stick Blood Glucose 205 Intake and Output for Last 24 Hours 06/29/17 06/30/17 07/01/17 23:59 23:59 23:59 Intake Total 540 / 540 1180 / 1180 600 / 600 Output Total 937 / 937 1730 / 1730 20 / 20 Balance -397 / -397 -550 / -550 580 / 580 Drainage - 30 ml yesterday, 20 ml today. POC Glucose 07/01/17 07/01/17 07/01/17 16:56 11:55 06:43 POC Glucose 102 185 H 246 H 07/01/17 06/30/17 06:02 21:16 POC Glucose 226 H 245 H Pathology - negative for osteomyelitis. Medical Necessity - Tobacco Use Smoking Status: Former smoker Tobacco Use: Non-smoker Assessment/Plan 1. Nonhealing diabetic ulcer left plantar foot with infection. 2. Nonhealing diabetic ulcer left medial foot with infection. 3. Osteomyelitis. 4. Diabetes mellitus. 5. MRSA. 6. Charcot foot neuropathic osteoarthropathy. 7. Former smoker. 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 10. Anemia of chronic disease, acute on chronic, stable after PRBC. Patient sleeping and resting comfortably at present. Incision is dry and intact. Stump is soft. No clinical evidence of hematoma. Operative cultures show MRSA in soft tissue and bone. Pathology is negative for osteomyelitis. ID has stopped the antibiotics for now. Will see how he does off antibiotics as the MRSA is what he had before and it was in the foot ulcer that was removed with the amputation. Prealbumin was 25.1. Encourage nutritional supplementation with protein to help the healing process. Hgb has stabilized to 9.2 from 9.0 after the PRBC. He has anemia of chronic disease, acute on chronic. He had some moderate blood loss during the surgery on 800 ml. He also has IV dilution contributing to the anemia as there was no ongoing evidence of bleeding in the stump. OT/PT is working with him with transferring. After discharge from TCU, will followup [facility].
[2017-07-01] MEDS: Gabapentin 400 MG Capsule PO (21:01)
[2017-07-01] MEDS: Atorvastatin Calcium 40 MG Tablet PO (21:01)
[2017-07-01 21:26] LABS: Bedside Glucose 211 mg/dL (70-110)
[2017-07-02 00:39] VITALS: RESP 16
[2017-07-02] MEDS: Pantoprazole Sodium 20 MG Tablet PO ×2 (05:13→17:09)
[2017-07-02] MEDS: Triamterene 37.5MG/Hctz 25MG Capsule 1 CAP PO (05:13)
[2017-07-02] MEDS: Naproxen 500 MG Tablet PO ×2 (05:13→17:09)
[2017-07-02] MEDS: Citalopram 20 MG Tablet 40 MG PO (05:13)
[2017-07-02] MEDS: buPROPion (XL) 150 MG TABLET.XL PO (05:13)
[2017-07-02] MEDS: Losartan Potassium 100 MG Tablet PO (05:13)
[2017-07-02] MEDS: Enoxaparin 40 MG/0.4 ML Syringe SC (05:15)
[2017-07-02] MEDS: Glucerna Shake 120 ML LIQUID PO ×4 (05:17→21:22)
[2017-07-02] MEDS: morphine SR 15 MG Tablet PO ×3 (05:21→21:26)
[2017-07-02] MEDS: Empagliflozin 25 MG Tablet PO (05:30)
[2017-07-02 06:36] LABS: Bedside Glucose 212 mg/dL (70-110)
[2017-07-02 07:11] LABS: Bedside Glucose 224 mg/dL (70-110)
[2017-07-02] MEDS: metFORMIN HCl 1,000 MG Tablet 1000 MG PO ×2 (09:01→17:09)
[2017-07-02] MEDS: Iron Polysaccharide Complex 150 MG CAPSULE PO (09:02)
[2017-07-02] MEDS: Gabapentin 800 MG Tablet PO ×4 (09:02→21:23)
--- NOTE | 2017-07-02 10:28 | CASEMGMT ---
Plan of care meeting held. Resident present as well as support person. Resident plans to discharge home with friends at time of discharge. No discharge date set at this time. Resident to continue with further care and treatment on the Transitional Care Unit at this time. Resident has an insurance update due on 07/02/17 and resident is aware that continued stay is not guaranteed. Support given. Will continue to follow. Ester PEREZ, EXERCISE MANAGER
--- NOTE | 2017-07-02 11:42 | NURSING ---
wound photo: left BKA
[2017-07-02 11:50] LABS: Bedside Glucose 242 mg/dL (70-110)
--- NOTE | 2017-07-02 15:03 | CASEMGMT ---
Insurance Clinical information sent. Pending continued stay approval at this time. Auth#[id number] Ester PEREZ, EQUIPMENT CLEANER
[2017-07-02 15:50] VITALS: BP 143/63; PULSE 73; RESP 20; TEMP 36.9; O2SAT 92
[2017-07-02 17:16] LABS: Bedside Glucose 162 mg/dL (70-110)
[2017-07-02 21:16] LABS: Bedside Glucose 190 mg/dL (70-110)
[2017-07-02] MEDS: Gabapentin 400 MG Capsule PO (21:22)
[2017-07-02] MEDS: Atorvastatin Calcium 40 MG Tablet PO (21:22)
[2017-07-03] MEDS: Citalopram 20 MG Tablet 40 MG PO (05:15)
[2017-07-03] MEDS: buPROPion (XL) 150 MG TABLET.XL PO (05:15)
[2017-07-03] MEDS: Losartan Potassium 100 MG Tablet PO (05:15)
[2017-07-03] MEDS: Glucerna Shake 120 ML LIQUID PO ×3 (05:15→21:52)
[2017-07-03] MEDS: Pantoprazole Sodium 20 MG Tablet PO ×2 (05:15→18:15)
[2017-07-03] MEDS: Enoxaparin 40 MG/0.4 ML Syringe SC (05:15)
[2017-07-03] MEDS: Empagliflozin 25 MG Tablet PO (05:15)
[2017-07-03] MEDS: Triamterene 37.5MG/Hctz 25MG Capsule 1 CAP PO (05:15)
[2017-07-03] MEDS: Naproxen 500 MG Tablet PO ×2 (05:15→18:15)
[2017-07-03] MEDS: morphine SR 15 MG Tablet PO ×3 (05:27→21:51)
[2017-07-03] MEDS: oxyCODONE 5 MG Tablet 10 MG PO (06:44)
[2017-07-03 06:51] LABS: Bedside Glucose 174 mg/dL (70-110)
[2017-07-03] MEDS: metFORMIN HCl 1,000 MG Tablet 1000 MG PO ×2 (08:35→18:16)
[2017-07-03] MEDS: Gabapentin 800 MG Tablet PO ×4 (08:35→21:53)
[2017-07-03] MEDS: Iron Polysaccharide Complex 150 MG CAPSULE PO (08:36)
[2017-07-03 10:00] VITALS: PULSE 72; RESP 18; O2SAT 96
[2017-07-03 11:20] LABS: Bedside Glucose 200 mg/dL (70-110)
--- NOTE | 2017-07-03 13:35 | CASEMGMT ---
Insurance Continued stay approved with next update due 07/07/17. Auth#[id number] Ester PEREZ, MORIAH
[2017-07-03 15:44] VITALS: BP 129/71; PULSE 73; RESP 20; TEMP 36.1; O2SAT 95
[2017-07-03 17:41] LABS: Bedside Glucose 157 mg/dL (70-110)
[2017-07-03 21:21] LABS: Bedside Glucose 198 mg/dL (70-110)
[2017-07-03] MEDS: Atorvastatin Calcium 40 MG Tablet PO (21:53)
[2017-07-03] MEDS: Gabapentin 400 MG Capsule PO (21:53)
[2017-07-04] MEDS: morphine SR 15 MG Tablet PO ×3 (05:12→22:53)
[2017-07-04] MEDS: Triamterene 37.5MG/Hctz 25MG Capsule 1 CAP PO (05:13)
[2017-07-04] MEDS: Naproxen 500 MG Tablet PO ×2 (05:13→17:40)
[2017-07-04] MEDS: Losartan Potassium 100 MG Tablet PO (05:13)
[2017-07-04] MEDS: Empagliflozin 25 MG Tablet PO (05:13)
[2017-07-04] MEDS: Senna/Docusate Sodium 1 Tablet 2 TABLET PO ×2 (05:13→17:40)
[2017-07-04] MEDS: Citalopram 20 MG Tablet 40 MG PO (05:13)
[2017-07-04] MEDS: Pantoprazole Sodium 20 MG Tablet PO ×2 (05:13→17:40)
[2017-07-04] MEDS: Enoxaparin 40 MG/0.4 ML Syringe SC (05:14)
[2017-07-04] MEDS: Glucerna Shake 120 ML LIQUID PO ×4 (05:14→22:53)
[2017-07-04] MEDS: Polyethylene Glycol 3350 17 GM PACKET PO (05:14)
[2017-07-04] MEDS: buPROPion (XL) 150 MG TABLET.XL PO (05:16)
[2017-07-04 07:06] LABS: Bedside Glucose 193 mg/dL (70-110)
[2017-07-04] MEDS: Gabapentin 800 MG Tablet PO ×3 (08:12→17:40)
[2017-07-04] MEDS: metFORMIN HCl 1,000 MG Tablet 1000 MG PO ×2 (08:12→17:40)
[2017-07-04] MEDS: Iron Polysaccharide Complex 150 MG CAPSULE PO (08:12)
[2017-07-04 11:50] LABS: Bedside Glucose 213 mg/dL (70-110)
--- NOTE | 2017-07-04 11:50 | CASEMGMT ---
Social Work Collaborating with resident and team. Resident will need a sliding board, drop arm bedside commode, and wheelchair with drop arms. Resident requesting for equipment to be set up through [facility]. Support given. Faxed orders to [facility] for above mentioned equipment, Bridgett aware that there is no discharge date at this time and that equipment will be needed at discharge. Will notify [facility] when discharge date is set. Will continue to follow. Ester PEREZ, PLEXIGLAS FORMER
--- NOTE | 2017-07-04 13:18 | CASEMGMT ---
Brief interview for mental status (BIMS) and resident mood interview (PHQ-9) completed on this day. BIMS score 1515. PHQ-9 score 05/13
[2017-07-04] MEDS: Mupirocin Ointment 22gm Tube 1 APPLIC TOPICAL (14:14)
[2017-07-04 15:29] VITALS: BP 137/69; PULSE 71; RESP 18; TEMP 36.4; O2SAT 96
[2017-07-04 17:10] LABS: Bedside Glucose 170 mg/dL (70-110)
[2017-07-04 21:10] LABS: Bedside Glucose 227 mg/dL (70-110)
[2017-07-04] MEDS: Atorvastatin Calcium 40 MG Tablet PO (22:53)
--- NOTE | 2017-07-05 00:39 | NURSING ---
Addendum entered by Shannan Pollard 07/05/17 08:09: government relations director updated. Original Note: BULKING MACHINE OPERATOR reported to nurses at nurses station pt informed BULKING MACHINE OPERATOR he fell on floor and got himself up off the floor and into bed. BULKING MACHINE OPERATOR reported to this nurse, she entered pt's room to find pt sitting on bed, Wheelchair (WC) parallel to bed, WC sitting directly next to bed and slide board at the foot of the bed. Pt reported to this nurse and MARY Anderson he attempted to slide folding chair while sitting in WC away from himself. With the force he used to slide chair across room, he lost balance in WC falling out onto left shoulder and left side. Pt then pressed chest against bed and used right foot to push self onto bed. Pt informed staff he rolled over and sat up. Pt denied yelling for help. Pt denied hitting head. Pt denied pain to left shoulder and/or left side. Pt able to complete free full rotation of left shoulder without pain. Pt denied bumping/hitting Left below the knee amputation. No visible injury noted. Pt currently AOx3. Pt does not recall time fall happened.Pt has consult for speech therapy to address pt's cognition. Pt is noted by therapy to be a two staff member assist with transfers. Pt used personal cellular device to contact daughter while nurses present in room at 2120. Daughter informed this nurse she is concerned with patients cognition. Dr Fernández notified. Dr Fernández informed this nurse he would adjust pt's medications. House supervision notified. Red sign placed outside door. Personal alarm placed for pt safety. Will continue to monitor and asses.
[2017-07-05] MEDS: morphine SR 15 MG Tablet PO ×3 (06:08→21:30)
[2017-07-05] MEDS: Senna/Docusate Sodium 1 Tablet 2 TABLET PO ×2 (06:08→18:11)
[2017-07-05] MEDS: buPROPion (XL) 150 MG TABLET.XL PO (06:08)
[2017-07-05] MEDS: Empagliflozin 25 MG Tablet PO (06:08)
[2017-07-05] MEDS: Pantoprazole Sodium 20 MG Tablet PO ×2 (06:08→18:11)
[2017-07-05] MEDS: Losartan Potassium 100 MG Tablet PO (06:08)
[2017-07-05] MEDS: Citalopram 20 MG Tablet PO (06:09)
[2017-07-05] MEDS: Triamterene 37.5MG/Hctz 25MG Capsule 1 CAP PO (06:09)
[2017-07-05] MEDS: Enoxaparin 40 MG/0.4 ML Syringe SC (06:09)
[2017-07-05] MEDS: Glucerna Shake 120 ML LIQUID PO ×4 (06:10→21:28)
[2017-07-05] MEDS: Polyethylene Glycol 3350 17 GM PACKET PO (06:10)
[2017-07-05 06:31] LABS: Bedside Glucose 185 mg/dL (70-110)
[2017-07-05] MEDS: metFORMIN HCl 1,000 MG Tablet 1000 MG PO ×2 (10:03→18:11)
[2017-07-05] MEDS: Iron Polysaccharide Complex 150 MG CAPSULE PO (10:03)
[2017-07-05] MEDS: Gabapentin 800 MG Tablet PO ×3 (10:04→18:11)
[2017-07-05 11:51] LABS: Bedside Glucose 232 mg/dL (70-110)
[2017-07-05 15:47] VITALS: BP 128/56; PULSE 72; RESP 20; TEMP 36.2; O2SAT 98
--- NOTE | 2017-07-05 15:49 | NURSING ---
Addendum entered by Abimbola Burton 07/05/17 17:30: Dr. Fernández aware, cont to monitor Original Note: This nurse changed dressing to Pt stump, lots of serosanguinous drainage noted on kerlex and ABD which had soaked through linus wrap. Pt also having some drainage around drain site. guaze pads placed around drain site, dressing changed according to order, and new linus wrap applied. Abimbola HERNANDEZ notified.
[2017-07-05 17:01] LABS: Bedside Glucose 146 mg/dL (70-110)
[2017-07-05 20:00] VITALS: PULSE 74; O2SAT 95
[2017-07-05 20:55] LABS: Bedside Glucose 210 mg/dL (70-110)
[2017-07-05] MEDS: Atorvastatin Calcium 40 MG Tablet PO (21:29)
[2017-07-06] MEDS: oxyCODONE 5 MG Tablet PO ×2 (03:00→21:40)
[2017-07-06] MEDS: Polyethylene Glycol 3350 17 GM PACKET PO (06:05)
[2017-07-06] MEDS: Losartan Potassium 100 MG Tablet PO (06:05)
[2017-07-06] MEDS: Senna/Docusate Sodium 1 Tablet 2 TABLET PO ×2 (06:05→17:51)
[2017-07-06] MEDS: Pantoprazole Sodium 20 MG Tablet PO ×2 (06:05→17:51)
[2017-07-06] MEDS: Empagliflozin 25 MG Tablet PO (06:05)
[2017-07-06] MEDS: Triamterene 37.5MG/Hctz 25MG Capsule 1 CAP PO (06:05)
[2017-07-06] MEDS: Citalopram 20 MG Tablet PO (06:05)
[2017-07-06] MEDS: Enoxaparin 40 MG/0.4 ML Syringe SC (06:05)
[2017-07-06] MEDS: buPROPion (XL) 150 MG TABLET.XL PO (06:05)
[2017-07-06] MEDS: Glucerna Shake 120 ML LIQUID PO ×4 (06:05→21:40)
[2017-07-06] MEDS: morphine SR 15 MG Tablet PO ×3 (06:08→21:33)
[2017-07-06 06:56] LABS: Bedside Glucose 191 mg/dL (70-110)
[2017-07-06 07:33] LABS: Absolute Lymphocyte Count 1.92 X10^3/ul (0.83-4.51); Absolute Neutrophil Count 3.3 X10^3/uL (2.0-7.7); Basophil# 0.03 X10^3/uL; Basophil% 0.5 % (0-1); Eosinophil# 0.48 X10^3/uL; Eosinophils% 7.8 % (0-5); Hemoglobin 10.6 g/dl (13.0-16.5); Lymphocyte # 1.92 X10^3/ul (4.0); Lymphocyte % 31.3 % (19-41); Mean Corp Hgb Conc 31.2 g/gl (32-36); Mean Corpuscular Hgb 26.4 pg (27.0-32.0); Mean Corpuscular Volume 84.8 fL (80-94); Mean Platelet Vol. 9.1 fl (6.2-12.0); Monocyte# 0.36 X10^3/uL; Monocyte% 5.9 % (0-10); Neutrophil # 3.33 X10^3/uL (2.7-7.7); Neutrophil % 54.2 % (47-70); POSITIVE COUNT NO; POSITIVE DIFFERENTIAL NO; POSITIVE MORPHOLOGY NO; Platelet Count 375 K/mm3 (150-450); RBC Distribution Width CV 15.8 % (11.6-14.6); RBC Distribution Width SD 48.9 fl (35.1-43.9); Red Blood Count 4.01 M/mm3 (4.6-6.2); White Blood Count 6.1 K/mm3 (4.4-11.0)
[2017-07-06 07:56] LABS: BUN 30 mg/dL (7-18); BUN/Creat Ratio 26.5 RATIO (10-20); Calcium,Total 9.2 mg/dL (8.5-10.1); Chloride 98 mmol/L (98-107); Creatinine, Serum 1.13 mg/dL (0.70-1.30); EST Glomerular Filtration Rate 70 mL/min (>60); Est Glom Filt Rate - Afr Amer 85 mL/min (>60); Estimated Creatinine Clearance 82.05 ml/min; Glucose 195 mg/dL (74-106); Potassium 3.7 mmol/L (3.5-5.1); Sodium Level 134 mmol/L (136-145)
[2017-07-06 07:57] LABS: Anion Gap 6 (5-15)
[2017-07-06] MEDS: Iron Polysaccharide Complex 150 MG CAPSULE PO (08:37)
[2017-07-06] MEDS: Gabapentin 800 MG Tablet PO ×3 (08:37→17:51)
[2017-07-06] MEDS: metFORMIN HCl 1,000 MG Tablet 1000 MG PO ×2 (08:38→17:51)
--- NOTE | 2017-07-06 09:26 | NURSING ---
Dr. Fernández reviewed labs, N.N.O.
[2017-07-06 11:40] LABS: Bedside Glucose 186 mg/dL (70-110)
--- NOTE | 2017-07-06 12:45 | NURSING ---
20 units of novalog given to pt in left lower ab.
--- NOTE | 2017-07-06 13:40 | NURSING ---
Dr. Rodriguez here to see pt, NEY drain removed.
--- NOTE | 2017-07-06 14:14 | PCM.PN.SRG ---
Subjective: Postop #12 Slowly getting stronger. Working on pivoting and balancing on right leg. - Physical Exam General: Alert, Oriented x3 HEENT: PERRLA, EOMI Neck: Supple Lungs: Clear to auscultation Cardiovascular: Regular rate, Regular Rhythm Abdomen: Soft, Non-Distended Skin: Incision - left BKA stump incision dry and intact. Mild swelling present. No evidence of hematoma. Neurological: Cranial nerves II-XII grossly intact Psych/Mental Status: Normal Affect, Appropriate Vital Signs Temp Pulse Resp BP Pulse Ox 97.1 F L 74 20 H 128/56 H 95 07/05/17 15:47 07/05/17 20:00 07/05/17 15:47 07/05/17 15:47 07/05/17 20:00 Oxygen Delivery Method Room Air Weight: 304 lb 0.279 oz Body Mass Index (BMI) 39.1 Finger Stick Blood Glucose 205 Intake and Output for Last 24 Hours 07/04/17 07/05/17 07/06/17 23:59 23:59 23:59 Intake Total 920 / 920 1560 / 1560 770 / 770 Output Total 1085 / 1085 1710 / 1710 Balance 920 / 920 475 / 475 -940 / -940 Laboratory Tests Past 24 Hrs 07/06/17 07/06/17 07:15 07:15 WBC 6.1 RBC 4.01 L Hgb 10.6 L Hct 34.0 L MCV 84.8 MCH 26.4 L MCHC 31.2 L RDW 15.8 H RDW Differential 48.9 H Plt Count 375 MPV 9.1 Immature Gran % (Auto) 0.300 Neut % (Auto) 54.2 Lymph % (Auto) 31.3 [place] % (Auto) 5.9 Eos % (Auto) 7.8 H Baso % (Auto) 0.5 Absolute Neuts (auto) 3.3 Absolute Lymphs (auto) 1.92 Total Counted Not Reportable Sodium 134 L Potassium 3.7 Chloride 98 Carbon Dioxide 30.0 Anion Gap 6 BUN 30 H Creatinine 1.13 Estim Creat Clear Calc 82.05 Est GFR (MDRD) Af Amer 85 Est GFR (MDRD) Non-Af 70 BUN/Creatinine Ratio 26.5 H Glucose 195 H Calcium 9.2 POC Glucose 07/06/17 07/06/17 07/05/17 11:36 06:40 20:46 POC Glucose 186 H 191 H 210 H 07/05/17 16:55 POC Glucose 146 H Drainage 10 ml yesterday, 10 ml today. Medical Necessity - Tobacco Use Smoking Status: Former smoker Tobacco Use: Non-smoker Assessment/Plan 1. Nonhealing diabetic ulcer left plantar foot with infection. 2. Nonhealing diabetic ulcer left medial foot with infection. 3. Osteomyelitis. 4. Diabetes mellitus. 5. MRSA. 6. Charcot foot neuropathic osteoarthropathy. 7. Former smoker. 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 10. Anemia of chronic disease, acute on chronic, stable after PRBC. Patient in better spirits. 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 Incision is dry and intact. Stump is soft. No clinical evidence of hematoma. Mild swelling present. Drain was removed today without difficulty. Operative cultures show MRSA in soft tissue and bone. Pathology is negative for osteomyelitis. ID has stopped the antibiotics for now. Will see how he does off antibiotics as the MRSA is what he had before and it was in the foot ulcer that was removed with the amputation. Prealbumin was 25.1. Encourage nutritional supplementation with protein to help the healing process. Hgb has stabilized to 9.2 from 9.0 after the PRBC. He has anemia of chronic disease, acute on chronic. He had some moderate blood loss during the surgery on 800 ml. He also has IV dilution contributing to the anemia as there was no ongoing evidence of bleeding in the stump. OT/PT is working with him with transferring. After discharge from TCU, will followup at the [facility].
[2017-07-06 16:00] VITALS: BP 122/72; PULSE 59; RESP 16; TEMP 36.4; O2SAT 95
[2017-07-06 17:16] LABS: Bedside Glucose 147 mg/dL (70-110)
[2017-07-06 21:31] LABS: Bedside Glucose 203 mg/dL (70-110)
[2017-07-06] MEDS: Atorvastatin Calcium 40 MG Tablet PO (21:33)
[2017-07-07] MEDS: oxyCODONE 5 MG Tablet PO ×2 (04:52→12:03)
[2017-07-07] MEDS: Losartan Potassium 100 MG Tablet PO (04:53)
[2017-07-07] MEDS: Citalopram 20 MG Tablet PO (04:53)
[2017-07-07] MEDS: Senna/Docusate Sodium 1 Tablet 2 TABLET PO ×2 (04:54→18:02)
[2017-07-07] MEDS: Triamterene 37.5MG/Hctz 25MG Capsule 1 CAP PO (04:54)
[2017-07-07] MEDS: Pantoprazole Sodium 20 MG Tablet PO ×2 (04:54→18:02)
[2017-07-07] MEDS: buPROPion (XL) 150 MG TABLET.XL PO (04:55)
[2017-07-07] MEDS: Polyethylene Glycol 3350 17 GM PACKET PO (04:55)
[2017-07-07] MEDS: Enoxaparin 40 MG/0.4 ML Syringe SC (04:55)
[2017-07-07] MEDS: morphine SR 15 MG Tablet PO ×3 (06:51→21:00)
[2017-07-07] MEDS: Glucerna Shake 120 ML LIQUID PO ×4 (06:51→20:57)
[2017-07-07] MEDS: Empagliflozin 25 MG Tablet PO (06:53)
[2017-07-07 07:01] LABS: Bedside Glucose 185 mg/dL (70-110)
[2017-07-07] MEDS: Iron Polysaccharide Complex 150 MG CAPSULE PO (08:31)
[2017-07-07] MEDS: Acetaminophen 500 MG Tablet 1000 MG PO (08:31)
[2017-07-07] MEDS: metFORMIN HCl 1,000 MG Tablet 1000 MG PO ×2 (08:31→18:01)
[2017-07-07] MEDS: Gabapentin 800 MG Tablet PO ×3 (08:31→18:01)
[2017-07-07 11:01] LABS: Bedside Glucose 243 mg/dL (70-110)
--- NOTE | 2017-07-07 13:14 | NURSING ---
wound photo: left BKA
[2017-07-07 15:55] VITALS: BP 141/77; PULSE 70; RESP 20; TEMP 36.3; O2SAT 97
--- NOTE | 2017-07-07 16:37 | CASEMGMT ---
Insurance Clinical update sent via secured email. Will await continued stay determination. Auth # [id number] CHRIS Levi
[2017-07-07 17:10] LABS: Bedside Glucose 113 mg/dL (70-110)
[2017-07-07] MEDS: Atorvastatin Calcium 40 MG Tablet PO (21:00)
[2017-07-07 21:36] LABS: Bedside Glucose 179 mg/dL (70-110)
[2017-07-08] MEDS: oxyCODONE 5 MG Tablet PO (02:55)
[2017-07-08] MEDS: Glucerna Shake 120 ML LIQUID PO ×4 (04:59→21:13)
[2017-07-08] MEDS: Empagliflozin 25 MG Tablet PO (04:59)
[2017-07-08] MEDS: Citalopram 20 MG Tablet PO (04:59)
[2017-07-08] MEDS: Pantoprazole Sodium 20 MG Tablet PO ×2 (04:59→17:29)
[2017-07-08] MEDS: Enoxaparin 40 MG/0.4 ML Syringe SC (04:59)
[2017-07-08] MEDS: Triamterene 37.5MG/Hctz 25MG Capsule 1 CAP PO (04:59)
[2017-07-08] MEDS: Polyethylene Glycol 3350 17 GM PACKET PO (04:59)
[2017-07-08] MEDS: buPROPion (XL) 150 MG TABLET.XL PO (04:59)
[2017-07-08] MEDS: Senna/Docusate Sodium 1 Tablet 2 TABLET PO ×2 (04:59→17:29)
[2017-07-08] MEDS: Losartan Potassium 100 MG Tablet PO (04:59)
[2017-07-08] MEDS: morphine SR 15 MG Tablet PO ×3 (05:03→21:11)
[2017-07-08] MEDS: Mupirocin Ointment 22gm Tube 1 APPLIC TOPICAL (05:20)
[2017-07-08 06:45] LABS: Bedside Glucose 225 mg/dL (70-110)
[2017-07-08] MEDS: Iron Polysaccharide Complex 150 MG CAPSULE PO (08:57)
[2017-07-08] MEDS: Gabapentin 400 MG Capsule PO (08:57)
[2017-07-08] MEDS: metFORMIN HCl 1,000 MG Tablet 1000 MG PO ×2 (08:57→17:29)
[2017-07-08] MEDS: Gabapentin 800 MG Tablet PO ×3 (08:58→17:29)
[2017-07-08 11:16] LABS: Bedside Glucose 287 mg/dL (70-110)
[2017-07-08 16:00] VITALS: BP 136/74; PULSE 85; RESP 20; TEMP 36; O2SAT 94
[2017-07-08 17:06] LABS: Bedside Glucose 168 mg/dL (70-110)
[2017-07-08 21:06] LABS: Bedside Glucose 210 mg/dL (70-110)
[2017-07-08] MEDS: Atorvastatin Calcium 40 MG Tablet PO (21:11)
[2017-07-09] MEDS: oxyCODONE 5 MG Tablet PO (02:39)
[2017-07-09] MEDS: Triamterene 37.5MG/Hctz 25MG Capsule 1 CAP PO (05:31)
[2017-07-09] MEDS: morphine SR 15 MG Tablet PO ×3 (05:31→21:13)
[2017-07-09] MEDS: buPROPion (XL) 150 MG TABLET.XL PO (05:31)
[2017-07-09] MEDS: Losartan Potassium 100 MG Tablet PO (05:32)
[2017-07-09] MEDS: Enoxaparin 40 MG/0.4 ML Syringe SC (05:32)
[2017-07-09] MEDS: Polyethylene Glycol 3350 17 GM PACKET PO (05:32)
[2017-07-09] MEDS: Glucerna Shake 120 ML LIQUID PO ×4 (05:32→21:05)
[2017-07-09] MEDS: Citalopram 20 MG Tablet PO (05:32)
[2017-07-09] MEDS: Pantoprazole Sodium 20 MG Tablet PO ×2 (05:32→18:14)
[2017-07-09] MEDS: Empagliflozin 25 MG Tablet PO (05:32)
[2017-07-09] MEDS: Senna/Docusate Sodium 1 Tablet 2 TABLET PO (05:32)
[2017-07-09 06:41] LABS: Bedside Glucose 218 mg/dL (70-110)
[2017-07-09] MEDS: Iron Polysaccharide Complex 150 MG CAPSULE PO (08:18)
[2017-07-09] MEDS: metFORMIN HCl 1,000 MG Tablet 1000 MG PO ×2 (08:18→18:14)
--- NOTE | 2017-07-09 08:25 | CASEMGMT ---
Insurance Continued stay approved with next update due on 07/15/17. Auth#[id number] Ester PEREZ, MORIAH
[2017-07-09 10:00] VITALS: PULSE 63; RESP 18; O2SAT 97
[2017-07-09 11:41] LABS: Bedside Glucose 178 mg/dL (70-110)
[2017-07-09] MEDS: Gabapentin 400 MG Capsule PO ×2 (11:42→18:14)
--- NOTE | 2017-07-09 12:46 | NURSING ---
NOVOLOG 20 UNITS GIVEN AFTER EATING, BS 178.
[2017-07-09 15:16] VITALS: BP 108/63; PULSE 84; RESP 20; TEMP 36.3; O2SAT 97
[2017-07-09] MEDS: Acetaminophen 500 MG Tablet 1000 MG PO (15:45)
[2017-07-09 16:55] LABS: Bedside Glucose 162 mg/dL (70-110)
[2017-07-09 21:05] LABS: Bedside Glucose 184 mg/dL (70-110)
[2017-07-09] MEDS: Atorvastatin Calcium 40 MG Tablet PO (21:05)
--- NOTE | 2017-07-09 21:19 | NURSING ---
Pt c/o indigestion this evening. Dr Fernández notified. N.O. entered.
[2017-07-09] MEDS: Mag Hydrox/Al Hydrox/Simeth 30 ML UDC 15 ML PO (21:44)
[2017-07-10] MEDS: oxyCODONE 5 MG Tablet PO (02:29)
[2017-07-10] MEDS: Mag Hydrox/Al Hydrox/Simeth 30 ML UDC 15 ML PO (03:56)
[2017-07-10] MEDS: morphine SR 15 MG Tablet PO ×3 (06:03→20:57)
[2017-07-10] MEDS: Empagliflozin 25 MG Tablet PO (06:04)
[2017-07-10] MEDS: Citalopram 20 MG Tablet PO (06:04)
[2017-07-10] MEDS: buPROPion (XL) 150 MG TABLET.XL PO (06:04)
[2017-07-10] MEDS: Triamterene 37.5MG/Hctz 25MG Capsule 1 CAP PO (06:04)
[2017-07-10] MEDS: Enoxaparin 40 MG/0.4 ML Syringe SC (06:04)
[2017-07-10] MEDS: Glucerna Shake 120 ML LIQUID PO ×3 (06:04→20:58)
[2017-07-10] MEDS: Losartan Potassium 100 MG Tablet PO (06:04)
[2017-07-10] MEDS: Pantoprazole Sodium 20 MG Tablet PO ×2 (06:04→17:44)
[2017-07-10 08:21] LABS: Bedside Glucose 179 mg/dL (70-110)
[2017-07-10] MEDS: metFORMIN HCl 1,000 MG Tablet 1000 MG PO ×2 (09:01→17:44)
[2017-07-10] MEDS: Gabapentin 400 MG Capsule PO ×3 (09:01→17:44)
[2017-07-10] MEDS: Iron Polysaccharide Complex 150 MG CAPSULE PO (09:01)
[2017-07-10 10:00] VITALS: PULSE 82; RESP 16; O2SAT 94
[2017-07-10 11:21] LABS: Bedside Glucose 202 mg/dL (70-110)
--- NOTE | 2017-07-10 15:27 | MDS.RN ---
Information for the mds was obtained from review of the clinical record, interview of resident, staff, and direct observation of resident's care .
[2017-07-10 15:39] VITALS: BP 132/71; PULSE 87; RESP 16; TEMP 36.2; O2SAT 95
[2017-07-10 16:51] LABS: Bedside Glucose 173 mg/dL (70-110)
[2017-07-10] MEDS: Atorvastatin Calcium 40 MG Tablet PO (20:58)
[2017-07-10 21:01] LABS: Bedside Glucose 191 mg/dL (70-110)
[2017-07-11] MEDS: oxyCODONE 5 MG Tablet PO (02:16)
[2017-07-11] MEDS: Citalopram 20 MG Tablet PO (06:20)
[2017-07-11] MEDS: Triamterene 37.5MG/Hctz 25MG Capsule 1 CAP PO (06:20)
[2017-07-11] MEDS: morphine SR 15 MG Tablet PO ×3 (06:20→22:11)
[2017-07-11] MEDS: Pantoprazole Sodium 20 MG Tablet PO ×2 (06:20→18:14)
[2017-07-11] MEDS: buPROPion (XL) 150 MG TABLET.XL PO (06:20)
[2017-07-11] MEDS: Empagliflozin 25 MG Tablet PO (06:21)
[2017-07-11] MEDS: Glucerna Shake 120 ML LIQUID PO ×3 (06:21→22:22)
[2017-07-11] MEDS: Enoxaparin 40 MG/0.4 ML Syringe SC (06:21)
[2017-07-11 06:36] LABS: Bedside Glucose 161 mg/dL (70-110)
[2017-07-11] MEDS: metFORMIN HCl 1,000 MG Tablet 1000 MG PO ×2 (08:28→18:17)
[2017-07-11] MEDS: Losartan Potassium 100 MG Tablet PO (08:29)
[2017-07-11] MEDS: Iron Polysaccharide Complex 150 MG CAPSULE PO (08:29)
[2017-07-11] MEDS: Gabapentin 400 MG Capsule PO ×3 (08:29→18:16)
[2017-07-11 09:11] VITALS: PULSE 84; RESP 18; O2SAT 94
[2017-07-11 11:26] LABS: Bedside Glucose 205 mg/dL (70-110)
--- NOTE | 2017-07-11 12:25 | CASEMGMT ---
Social Work Spoke with resident in room. Resident requesting for discharge date to be set for 07/12/17. Spoke with staff/therapy. Staff agreeable to discharge date as long as all needed equipment is set up within the home. Telephone call to Alia Rojo reporting to have the wheelchair but to be waiting on the sliding board and bedside commode that will be in on FridayJuly 15. This child welfare social worker communicating what Alia stated and that team would be concerned with resident discharging on 07/12/17 and are wondering if resident would be open to staying until 07/15/17. Resident declining to continue with stay and reporting to have family that are able to assist until equipment is delivered to resident on 07/15/17. Resident aware of recommendations and also declining to have continued therapy within the home or community. Resident plans to discharge home on 07/12/17 with friends and significant other. Resident reporting to have transportation at time of discharge. Resident aware that wheelchair will be delivered to resident room prior to resident discharge. Support given. Telephone call to Mary Jo Rojo. Mary Jo to have wheelchair delivered to resident room prior to discharge. Mary Jo to have transfer board and bedside commode delivered to resident room on 07/15/17 (this is the soonest due to the holiday weekend). Proposed discharge date: 07/12/17 PLAN: Discharge home with significant other. Ester PEREZ, RADIOLOGY CLERK
--- NOTE | 2017-07-11 14:14 | CASEMGMT ---
Brief interview for mental status (BIMS) and resident mood interview completed on this day. BIMS score 15/15. PHQ-9 score 03/15.
--- NOTE | 2017-07-11 15:08 | PCM.DC ---
- Discharge Diagnoses Current Active Problems: Current Active and Chronic Problems (Last Reviewed 03/06/17 @ 09:46 by Renuka Key) Diabetes mellitus (Chronic) Venous insufficiency (Chronic) Hypertension (Chronic) You will use the following diet at home:: No restrictions, Regular Your food should be the consistency of: Regular Your liquids should be the consistency of: Regular/Thin Discharge Activity: Return to Normal Activity, May Shower, Use Walker Weight Bearing Status: Partial weight bearing Call your doctor if you observe: Fever of 101 or Higher, Inability to urinate, Inability to have a bowel movement, Shortness of breath, Chest pain, Uncontrolled pain Allergies/Adverse Reactions: Allergies cefepime Allergy (Verified 06/19/17 11:36) Hives lisinopril Allergy (Verified 06/19/17 11:36) cough sulfamethoxazole [From Octra] Allergy (Verified 06/19/17 11:36) turned red trimethoprim [From Octra] Allergy (Verified 06/19/17 11:36) turned red Medications to take at Discharge Metformin HCl [Glucophage] 1,000 mg PO BIDCM 11/15/14 Losartan Potassium [Cozaar] 100 mg PO DAILY 06/05/16 buPROPion XL [Wellbutrin Xl] 150 mg PO DAILY 01/21/17 Triamterene/Hydrochlorothiazid [Triamterene-Hctz 37.5-25 mg Cp] 1 each PO DAILY 03/24/17 Acetaminophen [Tylenol Tablet] 1,000 mg PO Q8H PRN PRN 06/19/17 Glucerna Shake 120 ml PO 4X/DAY 06/19/17 morphine SR tablet [Ms Contin] 15 mg PO TID #30 tab 06/28/17 Atorvastatin Calcium [Lipitor] 40 mg PO QHS #30 tab 07/11/17 Citalopram [Celexa] 20 mg PO DAILY #30 tab 07/11/17 Empagliflozin [Jardiance] 25 mg PO DAILY #30 tab 07/11/17 Gabapentin [Neurontin] 400 mg PO TIDCM #42 cap 07/11/17 Insulin Aspart [Novolog Flexpen] 20 units SC TIDCM #1 flexpen 07/11/17 Insulin Detemir [Levemir FlexPen] 50 units SC BID #1 insuln.pen 07/11/17 Iron Polysaccharide Complex [Ferrex 150] 150 mg PO DAILYCM #30 cap 07/11/17 Lactobacillus Acidophilus [Acidophilus] 1 tab PO 4X/DAY #120 tab 07/11/17 Mupirocin [Bactroban] 1 applic TOPICAL DAILY PRN #1 tube 07/11/17 Nutritional Supplement [Greg - ORANGE FLAVOR] 1 packet PO BIDCM #60 packet 07/11/17 Pantoprazole Sodium [Protonix] 20 mg PO BID #60 tab 07/11/17 Polyethylene Glycol 8000 [Polyethylene Glycol] 17 gm PO DAILY #30 powder 07/11/17 Senna/Docusate Sodium [Senokot-S] 2 tab PO BID #120 tab 07/11/17 The following prescriptions were given: Atorvastatin Calcium [Lipitor] 40 mg PO QHS #30 tab Citalopram [Celexa] 20 mg PO DAILY #30 tab Empagliflozin [Jardiance] 25 mg PO DAILY #30 tab Iron Polysaccharide Complex [Ferrex 150] 150 mg PO DAILYCM #30 cap Mupirocin [Bactroban] 1 applic TOPICAL DAILY PRN #1 tube PRN Reason: Dressing change Polyethylene Glycol 8000 [Polyethylene Glycol] 17 gm PO DAILY #30 powder Insulin Detemir [Levemir FlexPen] 50 units SC BID #1 insuln.pen Nutritional Supplement [Greg - ORANGE FLAVOR] 1 packet PO BIDCM #60 packet Pantoprazole Sodium [Protonix] 20 mg PO BID #60 tab Senna/Docusate Sodium [Senokot-S] 2 tab PO BID #120 tab Gabapentin [Neurontin] 400 mg PO TIDCM #42 cap Insulin Aspart [Novolog Flexpen] 20 units SC TIDCM #1 flexpen Lactobacillus Acidophilus [Acidophilus] 1 tab PO 4X/DAY #120 tab Primary Care Physician: Orion Cordova [Primary Care Provider] - Please follow up with your Primary Care Physician in: 1 week. Please Follow Up With: Lucho Rodriguez MD When: [phone] Please Follow Up With: Orion Cordova Proposed Discharge Date: 07/12/17
--- NOTE | 2017-07-11 15:09 | PCM.DC.SUM ---
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) Obstructive sleep apnea (Chronic) Hyperlipidemia (Chronic) Chronic pain (Chronic) Diabetes mellitus (Chronic) Venous insufficiency (Chronic) Hypertension (Chronic) Osteomyelitis (Chronic) Non-pressure chronic ulcer of left heel and midfoot with muscle involvement without evidence of necrosis (Chronic) Infection of left foot (Chronic) Hypersomnia (Chronic) Ulcer of midfoot with necrosis of muscle (Chronic) Nocturnal hypoxemia (Chronic) Abscess of left foot (Chronic) Diabetic ulcer of left foot with fat layer exposed (Chronic) Non-pressure chronic ulcer of left heel and midfoot with fat layer exposed (Chronic) 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 Venous insufficiency of both lower extremities (Chronic) S/P transmetatarsal amputation of foot (Chronic) 03/04/[address] 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) Hypertension (Chronic) Amputation of right foot with complication (Chronic) Type 2 diabetes mellitus with diabetic polyneuropathy (Chronic) Stasis dermatitis of both legs (Chronic) Sleep apnea (Chronic) CPAP 15 cm H20, 100% compliant Neuropathy (Chronic) secondary to diabetes Morbid obesity (Chronic) Anemia (Chronic) Dyslipidemia (Chronic) Left ventricular hypertrophy (Chronic) Chronic pain syndrome (Chronic) Depression (Chronic) Hospital Course and Treatment Imaging Results: 06/29/17 08:59 Diet: Carbohydrate Controlled Is pt able to select menu?: Yes Labs (Last 48 Hours) 07/09/17 07/09/17 07/10/17 16:50 20:58 06:51 POC Glucose 162 H 184 H 179 H 07/10/17 07/10/17 07/10/17 11:14 16:46 20:52 POC Glucose 202 H 173 H 191 H 07/11/17 07/11/17 06:28 11:21 POC Glucose 161 H 205 H Consultations 06/28/17 Consult: Onc/Wound/labeler Routine Comment: Reason for Consult:: LT BKA Operations: None, - - 06/24/17 - Left below knee amputation. Procedures: None Summary of Care Provided: The patient is a 62 year old Male with below past medical history hospitalized for left below the knee amputation 06/24/[address] Rodriguez secondary to recurrent chronic osteomyelitis of left foot, non-healing left foot ulcer. Discharge home with significant other. Discharge Diet: No Restrictions Discharge Activity: Return to Normal Activity, May Shower, Use Walker Weight Bearing Status: Partial weight bearing Call your doctor if you observe: Fever of 101 or Higher, Inability to urinate, Inability to have a bowel movement, Shortness of breath, Chest pain, Uncontrolled pain Home Medications: Medications to take at Discharge Metformin HCl [Glucophage] 1,000 mg PO BIDCM 11/15/14 Losartan Potassium [Cozaar] 100 mg PO DAILY 06/05/16 buPROPion XL [Wellbutrin Xl] 150 mg PO DAILY 01/21/17 Triamterene/Hydrochlorothiazid [Triamterene-Hctz 37.5-25 mg Cp] 1 each PO DAILY 03/24/17 Acetaminophen [Tylenol Tablet] 1,000 mg PO Q8H PRN PRN 06/19/17 Glucerna Shake 120 ml PO 4X/DAY 06/19/17 morphine SR tablet [Ms Contin] 15 mg PO TID #30 tab 06/28/17 Atorvastatin Calcium [Lipitor] 40 mg PO QHS #30 tab 07/11/17 Citalopram [Celexa] 20 mg PO DAILY #30 tab 07/11/17 Empagliflozin [Jardiance] 25 mg PO DAILY #30 tab 07/11/17 Gabapentin [Neurontin] 400 mg PO TIDCM #42 cap 07/11/17 Insulin Aspart [Novolog Flexpen] 20 units SC TIDCM #1 flexpen 07/11/17 Insulin Detemir [Levemir FlexPen] 50 units SC BID #1 insuln.pen 07/11/17 Iron Polysaccharide Complex [Ferrex 150] 150 mg PO DAILYCM #30 cap 07/11/17 Lactobacillus Acidophilus [Acidophilus] 1 tab PO 4X/DAY #120 tab 07/11/17 Mupirocin [Bactroban] 1 applic TOPICAL DAILY PRN #1 tube 07/11/17 Nutritional Supplement [Greg - ORANGE FLAVOR] 1 packet PO BIDCM #60 packet 07/11/17 Pantoprazole Sodium [Protonix] 20 mg PO BID #60 tab 07/11/17 Polyethylene Glycol 8000 [Polyethylene Glycol] 17 gm PO DAILY #30 powder 07/11/17 Senna/Docusate Sodium [Senokot-S] 2 tab PO BID #120 tab 07/11/17 Following Prescrptions Were Given to Patient: Atorvastatin Calcium [Lipitor] 40 mg PO QHS #30 tab Citalopram [Celexa] 20 mg PO DAILY #30 tab Empagliflozin [Jardiance] 25 mg PO DAILY #30 tab Iron Polysaccharide Complex [Ferrex 150] 150 mg PO DAILYCM #30 cap Mupirocin [Bactroban] 1 applic TOPICAL DAILY PRN #1 tube PRN Reason: Dressing change Polyethylene Glycol 8000 [Polyethylene Glycol] 17 gm PO DAILY #30 powder Insulin Detemir [Levemir FlexPen] 50 units SC BID #1 insuln.pen Nutritional Supplement [Greg - ORANGE FLAVOR] 1 packet PO BIDCM #60 packet Pantoprazole Sodium [Protonix] 20 mg PO BID #60 tab Senna/Docusate Sodium [Senokot-S] 2 tab PO BID #120 tab Gabapentin [Neurontin] 400 mg PO TIDCM #42 cap Insulin Aspart [Novolog Flexpen] 20 units SC TIDCM #1 flexpen Lactobacillus Acidophilus [Acidophilus] 1 tab PO 4X/DAY #120 tab Primary Care Physician: Orion Cordova [Primary Care Provider] - Please follow up with your Primary Care Physician in: 1 week. Please Follow Up With: Lucho Rodriguez MD When: [phone] Please Follow Up With: Orion Cordova Disposition: Home Minutes spent on discharge:: 35 Patient Condition:: Stable Medical Necessity - Tobacco Use Smoking Status: Former smoker Tobacco Use: Non-smoker Meaningful Use Info Meaningful Use Diagnoses (Choose all that apply): None applicable
[2017-07-11 16:00] VITALS: BP 136/61; PULSE 715; RESP 16; TEMP 36.6; O2SAT 94
[2017-07-11 17:07] LABS: Bedside Glucose 135 mg/dL (70-110)
[2017-07-11] MEDS: Gabapentin 100 MG Capsule 200 MG PO (18:14)
[2017-07-11 18:16] LABS: Bedside Glucose 182 mg/dL (70-110)
[2017-07-11 21:15] LABS: Bedside Glucose 216 mg/dL (70-110)
[2017-07-11] MEDS: Atorvastatin Calcium 40 MG Tablet PO (22:11)
[2017-07-12] MEDS: Mag Hydrox/Al Hydrox/Simeth 30 ML UDC 15 ML PO (04:46)
--- NOTE | 2017-07-12 06:51 | NURSING ---
PT C/O NAUSEA THIS AM. WANTS TO TAKE MEDS W/GLUCERNA. NO GLUCERNA AVAILABLE ON FLOOR.
[2017-07-12 07:01] LABS: Bedside Glucose 179 mg/dL (70-110)
[2017-07-12] MEDS: Citalopram 20 MG Tablet PO (09:06)
[2017-07-12] MEDS: Losartan Potassium 100 MG Tablet PO (09:07)
[2017-07-12] MEDS: Triamterene 37.5MG/Hctz 25MG Capsule 1 CAP PO (09:07)
[2017-07-12] MEDS: Glucerna Shake 120 ML LIQUID PO (09:07)
[2017-07-12] MEDS: Empagliflozin 25 MG Tablet PO (09:08)
[2017-07-12] MEDS: Enoxaparin 40 MG/0.4 ML Syringe SC (09:10)
[2017-07-12] MEDS: Pantoprazole Sodium 20 MG Tablet PO (09:11)
[2017-07-12] MEDS: morphine SR 15 MG Tablet PO (09:11)
[2017-07-12] MEDS: buPROPion (XL) 150 MG TABLET.XL PO (09:12)
[2017-07-12] MEDS: Gabapentin 400 MG Capsule PO (09:14)
[2017-07-12] MEDS: metFORMIN HCl 1,000 MG Tablet 1000 MG PO (09:14)
[2017-07-12] MEDS: Iron Polysaccharide Complex 150 MG CAPSULE PO (09:14)
[2017-07-12 12:28] VITALS: BP 164/69; PULSE 91; RESP 18; TEMP 36.6; O2SAT 95
--- NOTE | 2017-07-12 14:34 | CASEMGMT ---
Insurance Notified insurance of resident discharge on 07/12/17 to home with significant other. Auth#[id number] Ester PEREZ, ARCHITECT INTERN
== END 2017-07-12 11:30 | disposition home or self-care (01) | DRG 561 ==
PROVIDERS: Admitting Provider Family Medicine Geriatric Medicine; Family Provider Family Medicine; PCP Family Medicine; Visit Provider Family Medicine Geriatric Medicine
DX: Z47.81 Encounter for orthopedic aftercare following surgical amputation (principal); Z89.512 Acquired absence of left leg below knee; F32.9 Major depressive disorder, single episode, unspecified; F41.9 Anxiety disorder, unspecified; K21.9 Gastro-esophageal reflux disease without esophagitis; D50.9 Iron deficiency anemia, unspecified; I10 Essential (primary) hypertension; E78.5 Hyperlipidemia, unspecified; G47.33 Obstructive sleep apnea (adult) (pediatric); G89.29 Other chronic pain; E11.51 Type 2 diabetes mellitus with diabetic peripheral angiopathy without gangrene; E66.01 Morbid (severe) obesity due to excess calories; Z68.39 Body mass index [BMI] 39.0-39.9, adult; Z71.3 Dietary counseling and surveillance; Z87.891 Personal history of nicotine dependence; E11.610 Type 2 diabetes mellitus with diabetic neuropathic arthropathy; D63.8 Anemia in other chronic diseases classified elsewhere; G89.4 Chronic pain syndrome; E11.42 Type 2 diabetes mellitus with diabetic polyneuropathy
CPT/HCPCS: 80048; 82962; 85025; 92507; 92523; 97110; 97162; 97166; 97530; 97535; 97542; 97802; A4216

== ENCOUNTER → 2017-07-28 18:59 | Outpatient (CLI) | payer MEDICARE, SELFPAY ==
--- NOTE | 2017-07-28 18:59 | DT_ITS ---
This patient was seen during an EMR downtime July 21, 2017 - July 28, 2017. This patient may have a combination of paper and electronic documentation or all paper documentation. All documentation is viewable within the e-chart portion of [employer] for each patient visit.
== END ==
PROVIDERS: Family Provider Family Medicine; PCP Family Medicine; Visit Provider Surgery
DX: Z89.519 Acquired absence of unspecified leg below knee (principal)
CPT/HCPCS: 87070; 87075; 87077; 87186; 87205

== ENCOUNTER 2017-07-31 21:39 | Emergency (ER) | payer MEDICARE, SELFPAY ==
[2017-07-31 21:40] VITALS: BP 151/91; PULSE 83; RESP 18; TEMP 36.8; O2SAT 97; BMI 36.2
--- NOTE | 2017-07-31 22:20 | ED.DCSUM_ITS ---
- ER Visit Summary Date of Service: 07/31/17 Chief Complaint: [] Left knee wound dehiscence History of Present Illness: The patient is a 62 M accidentally fell an hour and a half ago with his walker. He suffered a dehiscence to his left below the knee amputation wound. Surgery was done approximately [address] rodriguez. Came in for further evaluation Physical Examination: [] Vital signs reviewed General: Well-nourished well-developed Head: Normocephalic atraumatic Eyes: Pupils equal round and reactive to light extraocular movements intact ENT: TMs clear no hemotympanum no trauma Neck: Nontender full range of motion Cardiovascular: Regular rate rhythm no murmurs normal S1-S2 Respiratory: No distress clear to auscultation bilaterally chest nontender Abdomen: Soft nontender nondistended normal bowel sounds no masses Back: Nontender no CVA tenderness Extremities: Below the knee amputation wound is dehisced approximately 75%. It measures 5 inches across. The central gap is an inch and a half. There is no bone underneath. Saw soft tissue. Skin: Normal color no trauma Neuro alert oriented cranial nerves II through XII intact normal strength sensation reflexes Test Results: [] Emergency Department Course and Treatment: [] Discussed with Dr. Rodriguez. He stated that the patient can be discharged home and that it will heal by secondary intention. He will set him up for an outpatient wound VAC on Friday at the wound center. He has to be placed him on prophylactic doxycycline. He recently had a wound culture that showed staph epidermidis pansensitive. Wound was dressed and he will follow-up. Treatment Plan: [] Disposition: [] Impression: [] Left [id number] wound dehiscence This note was generated with [employer] dictation software. It may contain incorrect words, spelling, and punctuation that were not noted in review of the chart prior to signing ED Disposition - Plan for ED Patient: Chief Complaint: Wound Check Referrals: Orion Cordova [Primary Care Provider] -
--- NOTE | 2017-07-31 22:25 | ED.DEP ---
ED Disposition - Plan for ED Patient: Disposition: Home or Assisted Living Chief Complaint: Wound Check Instructions: ED Wound Check Post Op Bleeding Prescriptions: Doxycycline Monohydrate 100 mg PO BID #20 cap Referrals: Orion Cordova [Primary Care Provider] - Lucho Rodriguez MD [STAFF PHYSICIAN] -
[2017-07-31 23:03] VITALS: PULSE 97; RESP 16; O2SAT 100
== END 2017-07-31 23:04 | disposition home or self-care (01) ==
PROVIDERS: Emergency Provider Emergency Medicine; Family Provider Family Medicine; PCP Family Medicine
DX: T87.81 Dehiscence of amputation stump (principal); W01.0XXA Fall on same level from slipping, tripping and stumbling without subsequent striking against object, initial encounter; Y93.9 Activity, unspecified; Y92.9 Unspecified place or not applicable; Y99.9 Unspecified external cause status; E11.9 Type 2 diabetes mellitus without complications; I73.9 Peripheral vascular disease, unspecified; E66.9 Obesity, unspecified; Z79.4 Long term (current) use of insulin; Z79.899 Other long term (current) drug therapy; Z86.2 Personal history of diseases of the blood and blood-forming organs and certain disorders involving the immune mechanism
CPT/HCPCS: 99282

== ENCOUNTER 2017-08-04 08:21 | Outpatient (RCR) | payer MEDICARE, SELFPAY ==
[2017-06-17 00:30] VITALS: BP 154/71; PULSE 76; RESP 18; TEMP 36.3; O2SAT 92; BMI 37.5
[2017-06-24 15:25] LABS: Bedside Glucose 181 mg/dL (70-110)
[2017-08-04 08:21] VITALS: BP 164/71; PULSE 89; RESP 20; TEMP 37.1; BMI 37.5
--- NOTE | 2017-08-04 18:09 | PCM.WC.PN ---
Type of Wound Date of Service: 08/04/17 Chief Complaint: Traumatic disruption left BKA stump from falls. History of Wound: Surgery 06/24/17 - Left below knee amputation. Operative culture - MRSA in soft tissue and bone. He was treated perioperatively with Daptomycin and Zosyn. He states he was at home and fell on some steps and he noticed some drainage from the stump and that the stump had opened up. He denies any fever. He takes nutritional supplementation with protein to help the healing process. Progress of Wound: Left BKA with traumatic disruption of stump from falls. - Physical Exam Vital Signs Temp Pulse Resp BP Pulse Ox 98.8 F 89 20 H 164/71 H 92 08/04/17 08:21 08/04/17 08:21 08/04/17 08:21 08/04/17 08:21 06/17/17 00:30 Wound Measurements and Assessment [facility] - Nurse 1 - General Ulcer Measurement Start: 08/04/17 08:21 Freq: Status: Active Protocol: Activity Type Activity Date Activity User E-Sign Co-Sign Detail Recorded Client Recorded Date Recorded By Document 08/04/17 08:21 DL [id number] 08/04/17 08:35 DL 08/04/17 08:21 Wound Center Nurse 1 [Ulcer Assessment] #23 L BKA Dehisced incision -Current Size (cm) - Length 3.3 -Current Size (cm) - Width 10 -Current Size (cm) - Depth 1.9 -Total Square Cm 33.0 -Photo Taken Yes -Classification - Thickness Full Thickness without Exposed Support Structure -Exudate Amt Large (67-100%) -Exudate Type Serosanguineous -Wound Margin Distinct, Outline Attached -Granulation Amt Medium (34-66%) -Granulation Quality [place] Red -Necrosis Amt Medium (34-66%) -Necrotic Tissue Type Adherent Slough -Structure Exposed N/A -Texture (Yael-wound Skin Appearance) No Abnormality -Moisture (Yael-wound Skin Appearance No Abnormality ) -Color (Yael-wound Skin Appearance) No Abnormality -Temperature (Yael-wound Skin No Abnormality Appearance) (Pt Warm) -Tenderness on Palpation (Yael-wound No Skin Appearance) -Ulcer Cleansing Wound Cleanser -Foul Odor after Cleansing No -Anesthetic Used 4% Lidocaine Solution [facility] - Nurse 2 - General Ulcer CM Notes Start: 08/04/17 08:21 Freq: Status: Active Protocol: Activity Type Activity Date Activity User E-Sign Co-Sign Detail Recorded Client Recorded Date Recorded By Document 08/04/17 09:14 [id number] 08/04/17 09:15 08/04/17 09:14 Wound Center Nurse 2 [Procedure/Treatment] -Time 09:15 -Correct Patient Yes -Correct Side, Site, Position Yes -Correct Procedure Yes -Procedure Performed Yes -Type of Procedure Debridement -Clinical Debridement Muscle -Post Debridement Size (cm) - Length 3.4 -Post Debridement Size (cm) - Width 10 -Post Debridement Size (cm) - Depth 2.0 -Total Square Cm 34.0 -Wound/Ulcer Outcome Not Healed -Ulcer Cleansing Rinsed/ Irrigated with Saline -Foul Odor after Cleansing No -Bioengineered Tissue No -Bleeding Controlled with Pressure -Treatment Response Procedure Tolerated Well [See Physician Procedure note for Specifics] Pain Scale: 0-10 Numeric [Pain] -Is Patient Pain Free? Yes Debridement Note Post-Debridement Measurements/Treatment WC - Nurse 2 - General Ulcer CM Notes Start: 08/04/17 08:21 Freq: Status: Active Protocol: Activity Type Activity Date Activity User E-Sign Co-Sign Detail Recorded Client Recorded Date Recorded By Document 08/04/17 09:14 JF [id number] 08/04/17 09:15 08/04/17 09:14 Wound Center Nurse 2 #23 L BKA Dehisced incision -Time 09:15 -Correct Patient Yes -Correct Side, Site, Position Yes -Correct Procedure Yes -Procedure Performed Yes -Type of Procedure Debridement -Clinical Debridement Muscle -Post Debridement Size (cm) - Length 3.4 -Post Debridement Size (cm) - Width 10 -Post Debridement Size (cm) - Depth 2.0 -Total Square Cm 34.0 -Wound/Ulcer Outcome Not Healed -Ulcer Cleansing Rinsed/ Irrigated with Saline -Foul Odor after Cleansing No -Bioengineered Tissue No -Bleeding Controlled with Pressure -Treatment Response Procedure Tolerated Well Pain Scale: 0-10 Numeric Is Patient Pain Free? Yes Wound debrided: #23 Left BKA stump disruption. Laterality: Left Wound Grade/Stage: 3. Type of Debridement: Excisional debridement Anesthesia Used: 4% Lidocaine Solution Depth: Down to and including healthy tissue, in the subcutaneous layer, to muscle, to bone - bone is palpable but not debrided. Percentage of wound debrided: 100 Instrument Used: 7mm curette Tissue Removed: subcutaneous tissue and muscle. Severity: Fat Layer Exposed - muscle is exposed. bone is palpable but not debrided. Amount of bleeding with debridement: Mild Bleeding Controlled with: Pressure Patient tolerated procedure well - A wound culture was obtained today. Assessment/Plan Assessment: 1. Traumatic left BKA stump disruption from falls. 2. Nonhealing infected diabetic ulcer with fasciitis left plantar foot. 3. Nonhealing infected diabetic ulcer with fasciitis left medial foot. 4. Diabetes mellitus. 5. MRSA. 6. Osteomyelitis. 7. Charcot foot neuropathic osteoarthropathy. 8. Former smoker. 9. s/p left below knee amputation. Plan: Will begin Silver dressing changes daily. A wound culture was obtained today. A positive culture will necessitate antibiotic therapy. He may benefit from HBO treatments due to a compromised flap. Continue nutritional supplementation with protein to help the healing process. Followup 2 weeks. Eventually when the inflammation subsides and the infection is under control, can proceed with delayed secondary wound closure revision. Also at that time will biopsy the bone as well.
--- NOTE | 2017-08-06 00:30 | PN.PCM_ITS ---
Type of Wound Date of Service: 08/04/17 Chief Complaint: Traumatic disruption left BKA stump from falls. History of Wound: Surgery 06/24/17 - Left below knee amputation. Operative culture - MRSA in soft tissue and bone. He was treated perioperatively with Daptomycin and Zosyn. He states he was at home and fell on some steps and he noticed some drainage from the stump and that the stump had opened up. He denies any fever. He takes nutritional supplementation with protein to help the healing process. Progress of Wound: Left BKA with traumatic disruption of stump from falls. - Physical Exam Vital Signs Temp Pulse Resp BP Pulse Ox 98.8 F 89 20 H 164/71 H 92 08/04/17 08:21 08/04/17 08:21 08/04/17 08:21 08/04/17 08:21 06/17/17 00:30 Wound Measurements and Assessment [facility] - Nurse 1 - General Ulcer Measurement Start: 08/04/17 08:21 Freq: Status: Active Protocol: Activity Type Activity Date Activity User E-Sign Co-Sign Detail Recorded Client Recorded Date Recorded By Document 08/04/17 08:21 DL [id number] 08/04/17 08:35 DL 08/04/17 08:21 Wound Center Nurse 1 [Ulcer Assessment] #23 L BKA Dehisced incision -Current Size (cm) - Length 3.3 -Current Size (cm) - Width 10 -Current Size (cm) - Depth 1.9 -Total Square Cm 33.0 -Photo Taken Yes -Classification - Thickness Full Thickness without Exposed Support Structure -Exudate Amt Large (67-100%) -Exudate Type Serosanguineous -Wound Margin Distinct, Outline Attached -Granulation Amt Medium (34-66%) -Granulation Quality [place] -Necrosis Amt Medium (34-66%) -Necrotic Tissue Type Adherent Slough -Structure Exposed N/A -Texture (Yael-wound Skin Appearance) No Abnormality -Moisture (Yael-wound Skin Appearance No Abnormality ) -Color (Yael-wound Skin Appearance) No Abnormality -Temperature (Yael-wound Skin No Abnormality Appearance) (Pt Warm) -Tenderness on Palpation (Yael-wound No Skin Appearance) -Ulcer Cleansing Wound Cleanser -Foul Odor after Cleansing No -Anesthetic Used 4% Lidocaine Solution [facility] - Nurse 2 - General Ulcer CM Notes Start: 08/04/17 08:21 Freq: Status: Active Protocol: Activity Type Activity Date Activity User E-Sign Co-Sign Detail Recorded Client Recorded Date Recorded By Document 08/04/17 09:14 [id number] 08/04/17 09:15 08/04/17 09:14 Wound Center Nurse 2 [Procedure/Treatment] -Time 09:15 -Correct Patient Yes -Correct Side, Site, Position Yes -Correct Procedure Yes -Procedure Performed Yes -Type of Procedure Debridement -Clinical Debridement Muscle -Post Debridement Size (cm) - Length 3.4 -Post Debridement Size (cm) - Width 10 -Post Debridement Size (cm) - Depth 2.0 -Total Square Cm 34.0 -Wound/Ulcer Outcome Not Healed -Ulcer Cleansing Rinsed/ Irrigated with Saline -Foul Odor after Cleansing No -Bioengineered Tissue No -Bleeding Controlled with Pressure -Treatment Response Procedure Tolerated Well [See Physician Procedure note for Specifics] Pain Scale: 0-10 Numeric [Pain] -Is Patient Pain Free? Yes Debridement Note Post-Debridement Measurements/Treatment WC - Nurse 2 - General Ulcer CM Notes Start: 08/04/17 08:21 Freq: Status: Active Protocol: Activity Type Activity Date Activity User E-Sign Co-Sign Detail Recorded Client Recorded Date Recorded By Document 08/04/17 09:14 [id number] [id number] 08/04/17 09:15 08/04/17 09:14 Wound Center Nurse 2 #23 L BKA Dehisced incision -Time 09:15 -Correct Patient Yes -Correct Side, Site, Position Yes -Correct Procedure Yes -Procedure Performed Yes -Type of Procedure Debridement -Clinical Debridement Muscle -Post Debridement Size (cm) - Length 3.4 -Post Debridement Size (cm) - Width 10 -Post Debridement Size (cm) - Depth 2.0 -Total Square Cm 34.0 -Wound/Ulcer Outcome Not Healed -Ulcer Cleansing Rinsed/ Irrigated with Saline -Foul Odor after Cleansing No -Bioengineered Tissue No -Bleeding Controlled with Pressure -Treatment Response Procedure Tolerated Well Pain Scale: 0-10 Numeric Is Patient Pain Free? Yes Wound debrided: #23 Left BKA stump disruption. Laterality: Left Wound Grade/Stage: 3. Type of Debridement: Excisional debridement Anesthesia Used: 4% Lidocaine Solution Depth: Down to and including healthy tissue, in the subcutaneous layer, to muscle, to bone - bone is palpable but not debrided. Percentage of wound debrided: 100 Instrument Used: 7mm curette Tissue Removed: subcutaneous tissue and muscle. Severity: Fat Layer Exposed - muscle is exposed. bone is palpable but not debrided. Amount of bleeding with debridement: Mild Bleeding Controlled with: Pressure Patient tolerated procedure well - A wound culture was obtained today. Assessment/Plan Assessment: 1. Traumatic left BKA stump disruption from falls. 2. Nonhealing infected diabetic ulcer with fasciitis left plantar foot. 3. Nonhealing infected diabetic ulcer with fasciitis left medial foot. 4. Diabetes mellitus. 5. MRSA. 6. Osteomyelitis. 7. Charcot foot neuropathic osteoarthropathy. 8. Former smoker. 9. s/p left below knee amputation. Plan: Will begin Silver dressing changes daily. A wound culture was obtained today. A positive culture will necessitate antibiotic therapy. He may benefit from HBO treatments due to a compromised flap. Continue nutritional supplementation with protein to help the healing process. Followup 2 weeks. Eventually when the inflammation subsides and the infection is under control, can proceed with delayed secondary wound closure revision. Also at that time will biopsy the bone as well.
== END 2017-08-16 23:59 ==
LOC: WC 08:21
PROVIDERS: Family Provider Family Medicine; PCP Family Medicine; Visit Provider Surgery
DX: T87.81 Dehiscence of amputation stump (principal); E11.40 Type 2 diabetes mellitus with diabetic neuropathy, unspecified; Y83.8 Other surgical procedures as the cause of abnormal reaction of the patient, or of later complication, without mention of misadventure at the time of the procedure; Z86.14 Personal history of Methicillin resistant Staphylococcus aureus infection; Z87.891 Personal history of nicotine dependence; E11.610 Type 2 diabetes mellitus with diabetic neuropathic arthropathy
CPT/HCPCS: 11042; 11043; 11046; 82962; 87070; 87075; 87077; 87186; 87205

== ENCOUNTER 2017-08-18 13:55 | Inpatient (IN) | payer MEDICARE, SELFPAY ==
[2017-08-18 14:30] VITALS: BMI 35.6
[2017-08-18 14:39] VITALS: BMI 35.6
[2017-08-18 14:41] VITALS: BP 128/69; PULSE 87; RESP 18; TEMP 36.9; O2SAT 99
[2017-08-18 19:07] LABS: Absolute Lymphocyte Count 1.98 X10^3/ul (0.83-4.51); Absolute Neutrophil Count 4.8 X10^3/uL (2.0-7.7); Basophil# 0.03 X10^3/uL; Basophil% 0.4 % (0-1); Eosinophil# 0.28 X10^3/uL; Eosinophils% 3.7 % (0-5); Hemoglobin 11.7 g/dl (13.0-16.5); Lymphocyte # 1.98 X10^3/ul (4.0); Lymphocyte % 26.1 % (19-41); Mean Corp Hgb Conc 30.8 g/gl (32-36); Mean Corpuscular Volume 84.4 fL (80-94); Mean Platelet Vol. 9.1 fl (6.2-12.0); Monocyte# 0.48 X10^3/uL; Monocyte% 6.3 % (0-10); Neutrophil # 4.81 X10^3/uL (2.7-7.7); Neutrophil % 63.4 % (47-70); Platelet Count 302 K/mm3 (150-450); RBC Distribution Width CV 14.9 % (11.6-14.6); White Blood Count 7.6 K/mm3 (4.4-11.0)
[2017-08-18 19:10] LABS: POSITIVE COUNT NO; POSITIVE DIFFERENTIAL NO; POSITIVE MORPHOLOGY NO
[2017-08-18 19:31] LABS: ALB/GLOB Ratio 1.2 RATIO (0.9-2.4); AST(SGOT) 23 U/L (15-37); Alanine Aminotransfer ALT/SGPT 27 U/L (16-61); Albumin, Serum 3.8 g/dL (3.2-5.0); Alkaline Phosphatase 76 U/L (45-117); Anion Gap 6 (5-15); BUN 17 mg/dL (7-18); BUN/Creat Ratio 13.5 RATIO (10-20); Calcium,Total 8.7 mg/dL (8.5-10.1); Chloride 105 mmol/L (98-107); Creatinine, Serum 1.26 mg/dL (0.70-1.30); EST Glomerular Filtration Rate 62 mL/min (>60); Est Glom Filt Rate - Afr Amer 75 mL/min (>60); Estimated Creatinine Clearance 73.58 ml/min; Globulin 3.3 g/dL (2.2-4.2); Glucose 153 mg/dL (74-106); Potassium 4.2 mmol/L (3.5-5.1); Prealbumin 33.9 mg/dL (20.0-40.0); Protein, Total 7.1 g/dL (6.4-8.2); Sodium Level 139 mmol/L (136-145)
--- NOTE | 2017-08-18 19:32 | PCM.HP.BLA ---
History and Physical Date of Admission: 08/18/17 HISTORY OF PRESENT ILLNESS 62 year old man who I have been caring for at the Wound Center with nonhealing diabetic ulcers left foot with underlying osteomyelitis. He has been treated off and on in the past with IV antibiotics. He has had MRSA in the past. When the IV antibiotics stop, he develops a recurrent infection. He underwent left BKA on 06/24/17. Operative culture once again showed MRSA in the soft tissue and bone. He was treated with Daptomycin and Zosyn. He states since the surgery he has fallen a couple of times while trying to balance himself with his walker. He sustained a wound dehiscence. He was started on Levaquin and Doxycycline. Wound culture on 08/04/17 showed Burkholderia cepacia and MRSE and nothing oral was sensitive to both. He was seen at the Wound Center today. The wound looked clean with some exudate that was debrided. Good bleeding was seen. The bone is palpable. A wound culture was obtained today at the Wound Center. With the patient's history or multiple infections in the past, it was recommended to the patient to come back into the hospital for IV antibiotics and placement of a PICC line to stabilize the stump wound infection. Eventually when the inflammation subsides and the infection is under control, can proceed with delayed secondary wound closure revision. Also at that time will biopsy the bone as well. Today he denies any fever. He was amenable to admission. PAST MEDICAL HISTORY Diabetes mellitus with neuropathy. Hypertension. Venous insufficiency. PETRA. Obesity. Hyperlipidemia. Charcot neuropathic osteoarthropathy. Rocker bottom left foot. Amputation status right foot. Anemia. Chronic pain syndrome. Depression. LVH. PVD. Vitamin D deficiency. Former smoker. MRSA. PAST SURGICAL HISTORY Right hallux amputation at MTP joint - 12/29/14. Excisional debridement including fascia left great toe - 04/03/15. Partial 4th toe amputation right foot at PIP joint - 12/09/15. Bone biopsy calcaneal cuboid bone left foot and excisional debridement left plantar foot ulceration - 10/18/16. Right foot trans metatarsal amputation - 03/04/16. Debridement left foot ulcer with versajet including necrotic muscle and widespread debridement plantar foot and incision and drainage left foot - 01/24/17. Surgical preparation left plantar foot with incision and drainage and excisional debridement nonhealing infected diabetic ulcer with fasciitis (30 cm2) and surgical preparation left medial foot with incision and drainage and excisional debridement nonhealing infected diabetic ulcer with fasciitis (24 cm2) - 03/25/17. surgical preparation left plantar foot with incision and drainage and excisional debridement nonhealing MRSA diabetic ulcer (42 cm2) and partial ostectomy cuboid bone for osteomyelitis - 05/30/17. Left below knee amputation - 06/24/17. MEDICATIONS Wellbutrin. Celexa. Neurontin. Glimepiride. Glucerna Shake. Novolog Flexpen. Levemir. Cozaar. Glucophage. MS Contin. Naprosyn. Simvastatin. Triamterene-HCTZ. Levaquin. Doxycycline. ALLERGIES cefepime - Hives. lisinopril - cough. sulfa - turned red. Penicillins - unknown. FAMILY HISTORY Maternal - Cancer, Heart Disease. Paternal - Heart Disease. SOCIAL HISTORY Lives: Spouse/ Significant Other Smoking Status: Former smoker Tobacco Use: Non-smoker Alcohol: None Drugs: None REVIEW OF SYSTEMS Constitutional: Reports: Malaise. Denies: Fever, Fatigue Eyes: Denies: Cataracts HEENT: Denies: Nasal Congestion, Sore Throat Cardiovascular: Denies: Chest Pain Respiratory: Denies: Cough, Shortness of Breath Gastrointestinal: Denies: Constipation, Diarrhea, Nausea, Vomiting Genitourinary: Denies: Frequency, Hematuria Musculoskeletal: Reports: Foot Pain. Denies: Back Pain, Hand Pain, Neck Pain Skin: Reports: Wounds - traumatic wound dehiscence left BKA stump with infection. Neurological: Denies: Headaches Psychiatric: Reports: Depression. Denies: Anxiety Endocrine: Reports: - - has diabetes melltus.. Denies: Polydipsia, Polyuria Hematologic/ Lymphatic: Reports: Anemia. Denies: Easy Bruising, Hx of blood clot - Physical Exam General: Alert, Oriented x3 HEENT: Atraumatic, PERRLA Neck: Supple Lungs: Clear to auscultation Cardiovascular: Regular rate, Regular Rhythm Abdomen: Soft, Non-Distended Extremities: No clubbing, No cyanosis. has right foot TMA. Has left BKA stump traumatic wound dehiscence with infection. Measures Bone is palpable. Neurological: Cranial nerves II-XII grossly intact Psych/Mental Status: Normal Affect, Appropriate ASSESSMENT 1. Left BKA stump traumatic wound dehiscence with infection. 3. History of osteomyelitis. 4. Diabetes mellitus. 5. MRSA. 6. Charcot foot neuropathic osteoarthropathy. 7. Former smoker. 8. VRE. PLAN Recommend admission to the hospital and placement of IV antibiotics since the last wound culture from 08/04/17 showed Burkholderia cepacia and MRSE. Will start Vancomycin and Zosyn. Another wound culture was obtained in the Wound Center earlier today. Will obtain Infectious Diseases consultation to assist with antibiotic management. Has complex history of diabetes. Will have Hospitalist Group consulted to assist with medical management. Will have VAC placed tomorrow. 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 When infection is under control and the inflammation has subsided, can proceed with delayed secondary wound closure revision of the amputation stump. Will biopsy the bone as well as he has history of osteomyelitis. After discharge, followup at the Wound Center. He will also be evaluated for HBO treatments to help salvage the amputation stump. Patient was informed of the risks and complications of the procedure including alternatives to surgery. These were discussed with the patient personally. Patient voices understanding and wishes to proceed with the current plan of aggressive wound care and IV antibiotics to try and salvage the BKA stump and to minimize possible revision to an AKA if not aggressively treated. He voices understanding and wishes to proceed.
[2017-08-18] MEDS: 0.9% NaCl Peripheral Flush Adult/Peds IV (20:30)
--- NOTE | 2017-08-18 20:34 | NURSING ---
Notified log raft worker answering service today at 2032. They will call the nurse and see when PICC can be inserted. They advised me they would be calling me back to notify me of plan.
--- NOTE | 2017-08-18 21:08 | NURSING ---
custom studio coordinator called. They will not be able to get a nurse out here tonight but she will come tomorrow between 9 & 10 am.
[2017-08-18 21:45] VITALS: BP 132/72; PULSE 70; RESP 18; TEMP 36.7; O2SAT 97
[2017-08-18] MEDS: Piperacil/Tazobactam 3.375 GM/50 ML ML IV (22:08)
[2017-08-18] MEDS: Lactated Ringers 1,000 ML 60 ML IV (22:09)
[2017-08-18] MEDS: Gabapentin 800 MG Tablet PO (22:19)
[2017-08-18] MEDS: Docusate Sodium 100 MG Capsule PO (22:20)
[2017-08-18] MEDS: Pantoprazole Sodium 20 MG Tablet PO (22:20)
[2017-08-18] MEDS: Atorvastatin Calcium 40 MG Tablet PO (22:20)
[2017-08-18] MEDS: Insulin Lispro 100 UNIT/ML INSULN.PEN 20 UNIT SC (22:33)
[2017-08-18] MEDS: Insulin NPH Human 100 UNITS/ML PEN 50 UNITS SC (22:34)
[2017-08-18] MEDS: Ibuprofen 400 MG Tablet PO (22:36)
[2017-08-18] MEDS: Glucerna Shake 120 ML LIQUID PO (22:41)
[2017-08-19] MEDS: 0.9% NaCl Peripheral Flush Adult/Peds IV ×3 (00:12→23:20)
[2017-08-19] MEDS: HYDROmorphone 1 MG/ML Syringe IV (00:12)
[2017-08-19 01:46] LABS: Bedside Glucose 173 mg/dL (70-110)
[2017-08-19 04:25] VITALS: BP 123/59; PULSE 61; RESP 18; TEMP 36.4; O2SAT 95
[2017-08-19] MEDS: oxyCODONE 5 MG Tablet 10 MG PO ×2 (04:39→09:22)
[2017-08-19 06:09] LABS: Hematocrit 39.9 % (40-54); Hemoglobin 12.6 g/dl (13.0-16.5); Mean Corp Hgb Conc 31.6 g/gl (32-36); Mean Corpuscular Hgb 26.6 pg (27.0-32.0); Mean Corpuscular Volume 84.4 fL (80-94); Mean Platelet Vol. 9.2 fl (6.2-12.0); Platelet Count 332 K/mm3 (150-450); RBC Distribution Width CV 14.9 % (11.6-14.6); RBC Distribution Width SD 45.1 fl (35.1-43.9); Red Blood Count 4.73 M/mm3 (4.6-6.2); White Blood Count 6.3 K/mm3 (4.4-11.0)
[2017-08-19 06:17] LABS: Scan Indicated on CBC? Y/N NO
[2017-08-19 06:32] LABS: Anion Gap 6 (5-15); BUN 18 mg/dL (7-18); BUN/Creat Ratio 16.1 RATIO (10-20); Calcium,Total 9.2 mg/dL (8.5-10.1); Chloride 102 mmol/L (98-107); Creatinine, Serum 1.12 mg/dL (0.70-1.30); EST Glomerular Filtration Rate 71 mL/min (>60); Est Glom Filt Rate - Afr Amer 86 mL/min (>60); Estimated Creatinine Clearance 82.78 ml/min; Glucose 109 mg/dL (74-106); Potassium 4.1 mmol/L (3.5-5.1); Sodium Level 140 mmol/L (136-145)
[2017-08-19] MEDS: Piperacil/Tazobactam 3.375 GM/50 ML ML IV ×3 (06:32→21:31)
[2017-08-19] MEDS: Iron Polysaccharide Complex 150 MG CAPSULE PO (07:40)
[2017-08-19] MEDS: metFORMIN HCl 1,000 MG Tablet 1000 MG PO ×2 (07:41→17:02)
[2017-08-19] MEDS: Insulin NPH Human 100 UNITS/ML PEN 50 UNITS SC ×2 (07:41→17:03)
[2017-08-19] MEDS: Insulin Lispro 100 UNIT/ML INSULN.PEN 20 UNIT SC ×3 (07:41→17:02)
[2017-08-19] MEDS: Gabapentin 800 MG Tablet PO ×4 (07:44→21:31)
--- NOTE | 2017-08-19 08:51 | NURSING ---
wound photo: left distal stump
[2017-08-19] MEDS: Glucerna Shake 120 ML LIQUID PO ×4 (09:22→21:31)
[2017-08-19] MEDS: diazePAM 5 MG Tablet PO (09:23)
[2017-08-19] MEDS: Docusate Sodium 100 MG Capsule PO ×2 (09:23→21:31)
[2017-08-19] MEDS: Losartan Potassium 100 MG Tablet PO (09:23)
[2017-08-19] MEDS: Pantoprazole Sodium 20 MG Tablet PO ×2 (09:23→21:31)
[2017-08-19] MEDS: Empagliflozin 25 MG Tablet PO (09:23)
[2017-08-19] MEDS: buPROPion (XL) 150 MG TABLET.XL PO (09:23)
[2017-08-19] MEDS: Triamterene 37.5MG/Hctz 25MG Capsule 1 CAP PO (09:24)
[2017-08-19 10:13] VITALS: BP 143/67; PULSE 66; RESP 18; TEMP 36.4; O2SAT 97
--- NOTE | 2017-08-19 10:50 | CON.PCM_ITS ---
Problem List (1) Infection of amputation stump of left lower extremity Status: Acute Reason for Consult: osteo Consulted by: Dr. Rodriguez History of Present Illness: The patient is a 62 year old M with DM neuropathy and recurrent osteo requiring L BKA, now with several weeks of stump dehiscence, worsened after fall in mid June. Having some drainage, no redness or pain. No fever. Recent cx with burkholderia and MRSE. Put on levaquin, took for about 4 days, seen back in wound clinic and admitted to hospital for iv abx. Bone is palpable per wound care nurse. Wound vac in place. Started on vanc/zosyn. Full ROS performed and neg except as noted above. 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) Obstructive sleep apnea (Chronic) Hyperlipidemia (Chronic) Chronic pain (Chronic) Diabetes mellitus (Chronic) Venous insufficiency (Chronic) Hypertension (Chronic) Osteomyelitis (Chronic) Non-pressure chronic ulcer of left heel and midfoot with muscle involvement without evidence of necrosis (Chronic) Infection of left foot (Chronic) Hypersomnia (Chronic) Ulcer of midfoot with necrosis of muscle (Chronic) Nocturnal hypoxemia (Chronic) Abscess of left foot (Chronic) Diabetic ulcer of left foot with fat layer exposed (Chronic) Non-pressure chronic ulcer of left heel and midfoot with fat layer exposed ( Chronic) 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 Venous insufficiency of both lower extremities (Chronic) S/P transmetatarsal amputation of foot (Chronic) 03/04/[address] 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) Hypertension (Chronic) Amputation of right foot with complication (Chronic) Type 2 diabetes mellitus with diabetic polyneuropathy (Chronic) Stasis dermatitis of both legs (Chronic) Sleep apnea (Chronic) CPAP 15 cm H20, 100% compliant Neuropathy (Chronic) secondary to diabetes Morbid obesity (Chronic) Anemia (Chronic) Dyslipidemia (Chronic) Left ventricular hypertrophy (Chronic) Chronic pain syndrome (Chronic) Depression (Chronic) Allergies/Adverse Reactions: Allergies cefepime Allergy (Verified 07/31/17 21:41) Hives sulfamethoxazole [From Octra] Allergy (Verified 07/31/17 21:41) turned red trimethoprim [From Octra] Allergy (Verified 07/31/17 21:41) turned red lisinopril Adverse Reaction (Verified 08/18/17 19:39) cough Home Medications: Ambulatory Orders Medication Instructions Recorded Metformin HCl [Glucophage] 1,000 mg PO BIDCM 11/15/14 Losartan Potassium [Cozaar] 100 mg PO DAILY 06/05/16 buPROPion XL [Wellbutrin Xl] 150 mg PO DAILY 01/21/17 Triamterene/Hydrochlorothiazid 1 each PO DAILY 03/24/17 [Triamterene-Hctz 37.5-25 mg Cp] Glucerna Shake 120 ml PO 4X/DAY 06/19/17 Atorvastatin Calcium [Lipitor] 40 mg PO QHS #30 tab 07/11/17 Iron Polysaccharide Complex 150 mg PO DAILYCM #30 cap 07/11/17 [Ferrex 150] Lactobacillus Acidophilus 1 tab PO 4X/DAY #120 tab 07/11/17 [Acidophilus] Nutritional Supplement [Greg - 1 packet PO BIDCM #60 packet 07/11/17 ORANGE FLAVOR] Pantoprazole Sodium [Protonix] 20 mg PO BID #60 tab 07/11/17 Citalopram [Celexa] 40 mg PO DAILY 08/18/17 Empagliflozin [Jardiance] 25 mg PO DAILY 08/18/17 Gabapentin [Neurontin] 800 mg PO 4X/DAY 08/18/17 Ibuprofen [Motrin] 400 mg PO Q6H PRN PRN 08/18/17 Insulin NPH Human Isophane 50 unit SQ BID 08/18/17 [Novolin N] Insulin Regular, Human [Novolin R] 20 unit SC TIDCM 08/18/17 levoFLOXacin tablet [Levaquin 500 mg PO DAILY 08/18/17 tablet] - Social History SMOKING STATUS:: Former smoker Vital Signs Temp Pulse Resp BP Pulse Ox 97.6 F L 66 18 143/67 H 97 08/19/17 10:13 08/19/17 10:13 08/19/17 10:13 08/19/17 10:13 08/19/17 10:13 Oxygen Delivery Method Room Air Weight: 129.3 kg Body Mass Index (BMI) 35.6 Finger Stick Blood Glucose 205 Laboratory Tests Past 24 Hrs 08/18/17 08/18/17 08/19/17 18:55 18:55 05:50 WBC 7.6 6.3 RBC 4.50 L 4.73 Hgb 11.7 L 12.6 L Hct 38.0 L 39.9 L MCV 84.4 84.4 MCH 26.0 L 26.6 L MCHC 30.8 L 31.6 L RDW 14.9 H 14.9 H RDW Differential 46.0 H 45.1 H Plt Count 302 332 MPV 9.1 9.2 Immature Gran % (Auto) 0.100 Neut % (Auto) 63.4 Lymph % (Auto) 26.1 Clare % (Auto) 6.3 Eos % (Auto) 3.7 Baso % (Auto) 0.4 Absolute Neuts (auto) 4.8 Absolute Lymphs (auto) 1.98 Total Counted Not Reportable Sodium 139 Potassium 4.2 Chloride 105 Carbon Dioxide 28.0 Anion Gap 6 BUN 17 Creatinine 1.26 Estim Creat Clear Calc 73.58 Est GFR (MDRD) Af Amer 75 Est GFR (MDRD) Non-Af 62 BUN/Creatinine Ratio 13.5 Glucose 153 H Calcium 8.7 Total Bilirubin 0.60 AST 23 ALT 27 Alkaline Phosphatase 76 Total Protein 7.1 Albumin 3.8 Globulin 3.3 Albumin/Globulin Ratio 1.2 Prealbumin 33.9 08/19/17 05:50 WBC RBC Hgb Hct MCV MCH MCHC RDW RDW Differential Plt Count MPV Immature Gran % (Auto) Neut % (Auto) Lymph % (Auto) Clare % (Auto) Eos % (Auto) Baso % (Auto) Absolute Neuts (auto) Absolute Lymphs (auto) Total Counted Sodium 140 Potassium 4.1 Chloride 102 Carbon Dioxide 32.0 Anion Gap 6 BUN 18 Creatinine 1.12 Estim Creat Clear Calc 82.78 Est GFR (MDRD) Af Amer 86 Est GFR (MDRD) Non-Af 71 BUN/Creatinine Ratio 16.1 Glucose 109 H Calcium 9.2 Total Bilirubin AST ALT Alkaline Phosphatase Total Protein Albumin Globulin Albumin/Globulin Ratio Prealbumin - Other Studies Radiology: [] reviewed Other Studies: [] Route of nutrition/ use of supplements: [] Nutritional Intake: [] IV Site: [] Tam Catheter: [] - Physical Exam General: Alert, Oriented x3, Cooperative, No apparent distress HEENT: Atraumatic, PERRLA, EOMI Neck: Supple, No Nodes Lungs: Clear to auscultation, Normal air movement Cardiovascular: Regular rate, Regular Rhythm, No murmurs Abdomen: Soft, Non Tender, Non-Distended Extremities: - - L BKA stump with wound vac in place Skin: No rashes IV Site: PICC, without redness Neurological: Cranial nerves II-XII grossly intact - Assessment/Plan Antibiotics: [] Assessment/Plan: [] L BKA stump osteomyelitis with cx (+) burkholderia and MRSE - cont vanc/zosyn. Picc placed. Plan will be for 6 week course of iv abx. Will follow, d/w case resolution specialist.
--- NOTE | 2017-08-19 10:53 | PCM.RX.CS ---
Consult Pharmacy has been consulted to manage selected antiobiotic: Vancomycin Type of Consult: New start Suspected Infection: Skin/Soft tissue Labs: Sodium 140 mmol/L (136-145) 08/19/17 05:50 Potassium 4.1 mmol/L (3.5-5.1) 08/19/17 05:50 Chloride 102 mmol/L (98-107) 08/19/17 05:50 Carbon Dioxide 32.0 mmol/L (21.0-32.0) 08/19/17 05:50 Anion Gap 6 (5-15) 08/19/17 05:50 BUN 18 mg/dL (7-18) 08/19/17 05:50 Creatinine 1.12 mg/dL (0.70-1.30) 08/19/17 05:50 Est GFR (MDRD) Af Amer 86 mL/min (>60) 08/19/17 05:50 Est GFR (MDRD) Non-Af 71 mL/min (>60) 08/19/17 05:50 BUN/Creatinine Ratio 16.1 RATIO (10-20) 08/19/17 05:50 Glucose 109 mg/dL (74-106) H 08/19/17 05:50 Weight used for dosin kg Estimated Creatinine Clearance: 83 mL/min Goal Trough: 10-15 mcg/mL Pharmacy Plan for Drug Dosing: Patient initially started on vancomycin 1000mg IV q12h. Recommend to check trough prior to 4th dose. Pharmacy Service will continue to monitor and adjust dosing as required. Follow-Up Labs: Trough Vancomycin - 08/20/17 @ 2300
[2017-08-19] MEDS: Citalopram 40 MG TABLET PO (11:05)
[2017-08-19 11:50] LABS: Bedside Glucose 177 mg/dL (70-110)
--- NOTE | 2017-08-19 12:30 | CASEMGMT ---
ANDRE CLEMENTE met with patient and family to discuss discharge plans. MARY CLEMENTE explained that per Dr. Sanders, ANUSH[place], patient will need 2 IV ATBs for 6 weeks at discharge. Patient will also have a wound vac. MARY CLEMENTE discussed different options for patient, patient agreeable to TCU at discharge. MARY CLEMENTE updated RANDY Elliott regarding placement.
[2017-08-19] MEDS: Lactated Ringers 1,000 ML 60 ML IV (13:42)
--- NOTE | 2017-08-19 14:01 | CASEMGMT ---
Social Work Note MARY Ventura updated this worker that pt is interested in TCU at discharge. SW placed a call to Libby who is covering TCU and per Libby she won't have a bed until Friday. SW in to update pt of this. Pt states that he would like to go home at discharge. SW informed him that MARY Ventura can check on his IV antiobiotics to determine the cost. Pt states understanding. Pt states I don't want to go anywhere but TCU, I don't trust anywhere. SW states understanding and provided support to pt. Plan: Pt wishes to discharge home Conchita Elliott NATUROPATHIC PHYSICIAN, RN HEMODIALYSIS CHARGE
--- NOTE | 2017-08-19 14:10 | CASEMGMT ---
MARY CLEMENTE updated by Jyothi PADLILA that there are no beds available till Friday for TCU. Per RANDY patient wishes to discharge to home. MARY CLEMENTE sent referral to [facility] for IV ATB pricing for home therapy. MARY CLEMENTE will remain available for discharge planning needs.
--- NOTE | 2017-08-19 14:56 | CASEMGMT ---
Social Work Note RANDY met with pt to discuss inpatient rehab as an option. Pt agreeable to referral to inpatient rehab. RANDY placed a call to Libby with inpatient rehab and informed her of referral. Libby states that she will upload to insurance. RANDY received call from Libby with inpatient rehab. Libby states that pt's current level of function is too high and his insurance will deny him. RANDY will update pt of this . Plan: Pt to discharge home with HHC and IV antibiotics Conchita Elliott [employer]ER, MAIL INSERTER
[2017-08-19 16:12] VITALS: BP 126/66; PULSE 74; RESP 18; TEMP 36.8; O2SAT 97
[2017-08-19 16:30] LABS: Bedside Glucose 96 mg/dL (70-110)
[2017-08-19 21:30] VITALS: BP 152/81; PULSE 72; RESP 18; TEMP 36.5; O2SAT 99
[2017-08-19] MEDS: Atorvastatin Calcium 40 MG Tablet PO (21:31)
[2017-08-19 23:21] LABS: Bedside Glucose 87 mg/dL (70-110)
--- NOTE | 2017-08-19 23:34 | PN.SURG_ITS ---
Subjective: Patient resting comfortably. VAC applied. - Physical Exam General: Alert, Oriented x3 HEENT: PERRLA, EOMI Oral: Moist Mucosa Neck: Supple Lungs: Clear to auscultation Cardiovascular: Regular rate, Regular Rhythm Abdomen: Soft, Non-Distended Skin: Ulcer/ Wound - left BKA stump stable. No pus seen. No bleeding seen. VAC applied without difficulty. Neurological: Cranial nerves II-XII grossly intact Psych/Mental Status: Normal Affect, Appropriate Vital Signs Temp Pulse Resp BP Pulse Ox 98.2 F 74 18 126/66 H 97 08/19/17 16:12 08/19/17 16:12 08/19/17 16:12 08/19/17 16:12 08/19/17 16:12 Oxygen Delivery Method Room Air Weight: 285 lb 0.923 oz Body Mass Index (BMI) 35.6 Finger Stick Blood Glucose 205 Intake and Output for Last 24 Hours 08/17/17 08/18/17 08/19/17 23:59 23:59 23:59 Intake Total 6400 / 6400 Output Total 4325 / 4325 Balance 2074 / 2074 Laboratory Tests Past 24 Hrs 08/19/17 08/19/17 05:50 05:50 WBC 6.3 RBC 4.73 Hgb 12.6 L Hct 39.9 L MCV 84.4 MCH 26.6 L MCHC 31.6 L RDW 14.9 H RDW Differential 45.1 H Plt Count 332 MPV 9.2 Sodium 140 Potassium 4.1 Chloride 102 Carbon Dioxide 32.0 Anion Gap 6 BUN 18 Creatinine 1.12 Estim Creat Clear Calc 82.78 Est GFR (MDRD) Af Amer 86 Est GFR (MDRD) Non-Af 71 BUN/Creatinine Ratio 16.1 Glucose 109 H Calcium 9.2 POC Glucose 08/19/17 08/19/17 08/19/17 21:30 16:03 11:41 POC Glucose 87 96 177 H 08/18/17 22:33 POC Glucose 173 H Medical Necessity - Tobacco Use Smoking Status: Former smoker Assessment/Plan All Active Problems (Last Reviewed 03/06/17 @ 09:46 by Renuka Key) Infection of amputation stump of left lower extremity (Acute) Dehiscence of amputation stump (Acute) History of left below knee amputation (Acute) Acute osteomyelitis of left foot (Acute) Non-pressure chronic ulcer of left heel and midfoot with bone involvement without evidence of necrosis (Acute) Cellulitis (Resolved) Cellulitis and abscess of toe of left foot (Resolved) Cellulitis of great toe, left (Resolved) Cellulitis of leg (Resolved) Cellulitis of right foot (Resolved) Deep venous thrombosis (Resolved) Diabetic toe ulcer (Resolved) Fracture of left foot (Resolved) Hammer toe of right foot (Resolved) Healed ulcer of left foot on examination (Resolved) Lymphangitis (Resolved) MRSA (methicillin resistant Staphylococcus aureus) infection (Resolved) Non-pressure chronic ulcer of other part of right foot with fat layer exposed ( Resolved) Osteomyelitis (Resolved) Right foot infection (Resolved) Sepsis (Resolved) Skin ulcer of left great toe with fat layer exposed (Resolved) Toe osteomyelitis, right (Resolved) Ulcer of right leg (Resolved) Ulcer of right lower extremity with fat layer exposed (Resolved) Ulcer of right lower extremity with fat layer exposed (Resolved) Ulcer of right second toe with fat layer exposed (Resolved) Ulcer of toe of right foot (Resolved) Ulcer with necrosis of muscle (Resolved) Wound of left leg (Resolved) Wound of right leg (Resolved) ASSESSMENT 1. Left BKA stump traumatic wound dehiscence with infection. 3. History of osteomyelitis. 4. Diabetes mellitus. 5. History of MRSA. 6. Charcot foot neuropathic osteoarthropathy. 7. Former smoker. 8. History of VRE. PLAN VAC applied today without difficulty. To be changed three days per week at 150 mmHg continuous suction. Continue IV Vancomycin and Zosyn for recent culture of Burkholderia cepacia and MRSE. Infectious Diseases input appreciated. PICC line was placed for fci IV antibiotics. Wound Center culture day of admission has been negative thus far. Prealbumin was 33.9. Encourage nutritional supplementation with protein to help the healing process. Working on possible placement to TCU or rehab. If not a candidate, patient can go home with Home Health to assist with the VAC and to assist with the IV antibiotics. When infection is under control and the inflammation has subsided, can proceed with delayed secondary wound closure revision of the amputation stump. Will biopsy the bone as well as he has history of osteomyelitis. After discharge, followup at the Wound Center. He will also be evaluated for HBO treatments to help salvage the amputation stump. Patient was informed of the risks and complications of the procedure including alternatives to surgery. These were discussed with the patient personally. Patient voices understanding and wishes to proceed with the current plan of aggressive wound care and IV antibiotics to try and salvage the BKA stump and to minimize possible revision to an AKA if not aggressively treated. He voices understanding and wishes to proceed.
[2017-08-20 02:45] VITALS: BP 146/79; PULSE 74; RESP 18; TEMP 36.8; O2SAT 97
[2017-08-20] MEDS: Piperacil/Tazobactam 3.375 GM/50 ML ML IV ×3 (05:39→21:47)
[2017-08-20] MEDS: 0.9% NaCl Peripheral Flush Adult/Peds IV (05:39)
[2017-08-20 07:05] LABS: Anion Gap 7 (5-15); BUN 22 mg/dL (7-18); BUN/Creat Ratio 21.8 RATIO (10-20); CRP 7.77 mg/L (0.0-3.0); Calcium,Total 9.4 mg/dL (8.5-10.1); Chloride 103 mmol/L (98-107); Creatinine, Serum 1.01 mg/dL (0.70-1.30); EST Glomerular Filtration Rate 80 mL/min (>60); Est Glom Filt Rate - Afr Amer 97 mL/min (>60); Glucose 123 mg/dL (74-106); Sodium Level 140 mmol/L (136-145)
[2017-08-20 07:08] LABS: Hematocrit 38.2 % (40-54); Hemoglobin 11.8 g/dl (13.0-16.5); Mean Corp Hgb Conc 30.9 g/gl (32-36); Mean Corpuscular Volume 84.1 fL (80-94); Mean Platelet Vol. 9.2 fl (6.2-12.0); Platelet Count 271 K/mm3 (150-450); RBC Distribution Width CV 14.8 % (11.6-14.6); RBC Distribution Width SD 45.8 fl (35.1-43.9); Red Blood Count 4.54 M/mm3 (4.6-6.2); White Blood Count 6.9 K/mm3 (4.4-11.0)
[2017-08-20 07:09] LABS: Erythrocyte Sedimentation Rate 27 mm/hr (0-20); Scan Indicated on CBC? Y/N NO
[2017-08-20] MEDS: buPROPion (XL) 150 MG TABLET.XL PO (07:35)
[2017-08-20] MEDS: Losartan Potassium 100 MG Tablet PO (07:35)
[2017-08-20] MEDS: Gabapentin 800 MG Tablet PO ×4 (07:35→21:47)
[2017-08-20] MEDS: Citalopram 40 MG TABLET PO (07:35)
[2017-08-20] MEDS: metFORMIN HCl 1,000 MG Tablet 1000 MG PO ×2 (07:35→17:23)
[2017-08-20] MEDS: Pantoprazole Sodium 20 MG Tablet PO ×2 (07:36→21:49)
[2017-08-20] MEDS: Triamterene 37.5MG/Hctz 25MG Capsule 1 CAP PO (07:36)
[2017-08-20] MEDS: Docusate Sodium 100 MG Capsule PO (07:36)
[2017-08-20] MEDS: Iron Polysaccharide Complex 150 MG CAPSULE PO (07:36)
[2017-08-20] MEDS: Empagliflozin 25 MG Tablet PO (07:37)
[2017-08-20] MEDS: Glucerna Shake 120 ML LIQUID PO ×4 (07:39→21:48)
[2017-08-20 07:40] LABS: Bedside Glucose 134 mg/dL (70-110)
[2017-08-20 07:59] VITALS: BP 145/70; PULSE 80; RESP 16; TEMP 36.5; O2SAT 98
[2017-08-20] MEDS: Insulin Lispro 100 UNIT/ML INSULN.PEN 20 UNIT SC ×3 (08:04→17:21)
[2017-08-20] MEDS: Lactated Ringers 1,000 ML 60 ML IV ×2 (08:05→23:35)
[2017-08-20] MEDS: Insulin NPH Human 100 UNITS/ML PEN 50 UNITS SC ×2 (08:05→17:21)
[2017-08-20 11:13] VITALS: BP 142/91; PULSE 83; RESP 16; TEMP 37; O2SAT 100
[2017-08-20 11:16] LABS: Bedside Glucose 184 mg/dL (70-110)
--- NOTE | 2017-08-20 11:18 | PN.SURG_ITS ---
Subjective: Patient is resting comfortably. VAC in place. - Physical Exam General: Alert, Oriented x3, Non-Cooperative HEENT: PERRLA, EOMI Oral: Moist Mucosa Neck: Supple Lungs: Clear to auscultation Cardiovascular: Regular rate, Regular Rhythm Abdomen: Soft, Non-Distended Skin: Ulcer/ Wound - left BKA stump stable. VAC in place. Minimal drainage in the canister. Neurological: Cranial nerves II-XII grossly intact Psych/Mental Status: Normal Affect, Appropriate Vital Signs Temp Pulse Resp BP Pulse Ox 98.6 F 83 16 142/91 H 100 08/20/17 11:13 08/20/17 11:13 08/20/17 11:13 08/20/17 11:13 08/20/17 11:13 Oxygen Delivery Method Room Air Weight: 285 lb 0.923 oz Body Mass Index (BMI) 35.6 Finger Stick Blood Glucose 205 Intake and Output for Last 24 Hours 08/18/17 08/19/17 08/20/17 23:59 23:59 23:59 Intake Total 7329 / 7329 1238 / 1238 Output Total 5600 / 5600 3400 / 3400 Balance 1729 / 1729 -2162 / -2162 Laboratory Tests Past 24 Hrs 08/20/17 08/20/17 06:30 06:30 WBC 6.9 RBC 4.54 L Hgb 11.8 L Hct 38.2 L MCV 84.1 MCH 26.0 L MCHC 30.9 L RDW 14.8 H RDW Differential 45.8 H Plt Count 271 MPV 9.2 ESR 27 H Sodium 140 Potassium 4.0 Chloride 103 Carbon Dioxide 30.0 Anion Gap 7 BUN 22 H Creatinine 1.01 Estim Creat Clear Calc 91.80 Est GFR (MDRD) Af Amer 97 Est GFR (MDRD) Non-Af 80 BUN/Creatinine Ratio 21.8 H Glucose 123 H Calcium 9.4 C-React Prot Ext Range 7.77 H POC Glucose 08/20/17 08/20/17 08/19/17 10:59 07:30 21:30 POC Glucose 184 H 134 H 87 08/19/17 08/19/17 16:03 11:41 POC Glucose 96 177 H Medical Necessity - Tobacco Use Smoking Status: Former smoker Assessment/Plan All Active Problems (Last Reviewed 03/06/17 @ 09:46 by Renuka Key) Infection of amputation stump of left lower extremity (Acute) Dehiscence of amputation stump (Acute) History of left below knee amputation (Acute) Acute osteomyelitis of left foot (Acute) Non-pressure chronic ulcer of left heel and midfoot with bone involvement without evidence of necrosis (Acute) Cellulitis (Resolved) Cellulitis and abscess of toe of left foot (Resolved) Cellulitis of great toe, left (Resolved) Cellulitis of leg (Resolved) Cellulitis of right foot (Resolved) Deep venous thrombosis (Resolved) Diabetic toe ulcer (Resolved) Fracture of left foot (Resolved) Hammer toe of right foot (Resolved) Healed ulcer of left foot on examination (Resolved) Lymphangitis (Resolved) MRSA (methicillin resistant Staphylococcus aureus) infection (Resolved) Non-pressure chronic ulcer of other part of right foot with fat layer exposed ( Resolved) Osteomyelitis (Resolved) Right foot infection (Resolved) Sepsis (Resolved) Skin ulcer of left great toe with fat layer exposed (Resolved) Toe osteomyelitis, right (Resolved) Ulcer of right leg (Resolved) Ulcer of right lower extremity with fat layer exposed (Resolved) Ulcer of right lower extremity with fat layer exposed (Resolved) Ulcer of right second toe with fat layer exposed (Resolved) Ulcer of toe of right foot (Resolved) Ulcer with necrosis of muscle (Resolved) Wound of left leg (Resolved) Wound of right leg (Resolved) ASSESSMENT 1. Left BKA stump traumatic wound dehiscence with infection. 3. History of osteomyelitis. 4. Diabetes mellitus. 5. History of MRSA. 6. Charcot foot neuropathic osteoarthropathy. 7. Former smoker. 8. History of VRE. PLAN VAC in place. Minimal drainage in the canister. To be changed three days per week at 150 mmHg continuous suction. Continue IV Vancomycin and Zosyn for recent culture of Burkholderia cepacia and MRSE. PICC line was placed for termite control representative IV antibiotics. Wound Center culture day of admission has been negative thus far. Prealbumin was 33.9. Encourage nutritional supplementation with protein to help the healing process. Working on possible placement to TCU or rehab. If not a candidate, patient can go home with Home Health to assist with the VAC and to assist with the IV antibiotics. When infection is under control and the inflammation has subsided, can proceed with delayed secondary wound closure revision of the amputation stump. Will biopsy the bone as well as he has history of osteomyelitis. After discharge, followup at the Wound Center. He will also be evaluated for HBO treatments to help salvage the amputation stump. Patient was informed of the risks and complications of the procedure including alternatives to surgery. These were discussed with the patient personally. Patient voices understanding and wishes to proceed with the current plan of aggressive wound care and IV antibiotics to try and salvage the BKA stump and to minimize possible revision to an AKA if not aggressively treated. He voices understanding and wishes to proceed.
[2017-08-20 14:51] VITALS: BP 142/67; PULSE 82; RESP 16; TEMP 36.6; O2SAT 97
[2017-08-20 16:01] LABS: Bedside Glucose 98 mg/dL (70-110)
[2017-08-20] MEDS: Ibuprofen 400 MG Tablet PO (21:34)
[2017-08-20] MEDS: Atorvastatin Calcium 40 MG Tablet PO (21:49)
[2017-08-20 21:56] VITALS: BP 141/70; PULSE 89; RESP 16; TEMP 37.1; O2SAT 97
[2017-08-20 23:20] LABS: Bedside Glucose 171 mg/dL (70-110)
[2017-08-20] MEDS: HYDROmorphone 1 MG/ML Syringe IV (23:29)
[2017-08-21 03:30] VITALS: BP 156/68; PULSE 73; RESP 16; TEMP 36.9; O2SAT 98
[2017-08-21] MEDS: HYDROmorphone 1 MG/ML Syringe IV ×3 (03:33→20:34)
[2017-08-21] MEDS: Piperacil/Tazobactam 3.375 GM/50 ML ML IV ×3 (05:41→22:25)
[2017-08-21] MEDS: 0.9% NaCl Peripheral Flush Adult/Peds IV (05:46)
[2017-08-21 06:01] LABS: Hematocrit 36.4 % (40-54); Hemoglobin 11.5 g/dl (13.0-16.5); Mean Corp Hgb Conc 31.6 g/gl (32-36); Mean Corpuscular Hgb 26.7 pg (27.0-32.0); Mean Corpuscular Volume 84.7 fL (80-94); Mean Platelet Vol. 9.2 fl (6.2-12.0); Platelet Count 267 K/mm3 (150-450); RBC Distribution Width CV 14.7 % (11.6-14.6); White Blood Count 5.9 K/mm3 (4.4-11.0)
[2017-08-21 06:05] LABS: Scan Indicated on CBC? Y/N NO
[2017-08-21 06:18] LABS: Anion Gap 7 (5-15); BUN 26 mg/dL (7-18); BUN/Creat Ratio 23.2 RATIO (10-20); Calcium,Total 9.2 mg/dL (8.5-10.1); Chloride 101 mmol/L (98-107); Creatinine, Serum 1.12 mg/dL (0.70-1.30); EST Glomerular Filtration Rate 71 mL/min (>60); Est Glom Filt Rate - Afr Amer 86 mL/min (>60); Estimated Creatinine Clearance 82.78 ml/min; Glucose 94 mg/dL (74-106); Potassium 3.7 mmol/L (3.5-5.1); Sodium Level 140 mmol/L (136-145)
[2017-08-21] MEDS: Gabapentin 800 MG Tablet PO ×4 (08:04→22:26)
[2017-08-21] MEDS: Iron Polysaccharide Complex 150 MG CAPSULE PO (08:04)
[2017-08-21] MEDS: metFORMIN HCl 1,000 MG Tablet 1000 MG PO ×2 (08:04→17:08)
[2017-08-21] MEDS: Insulin NPH Human 100 UNITS/ML PEN 50 UNITS SC ×2 (08:05→17:21)
[2017-08-21] MEDS: Insulin Lispro 100 UNIT/ML INSULN.PEN 20 UNIT SC ×3 (08:06→17:08)
[2017-08-21 08:16] LABS: Bedside Glucose 123 mg/dL (70-110)
--- NOTE | 2017-08-21 09:24 | PCM.PN.HOSP ---
Subjective: Medicine consult: Hospitalist team consulted for medical management. 62 y/o male with past medical history of type II DM, history of chronic nonhealing diabetic ulcers of the left foot with underlying MRSA recurrent osteomyelitis, status post repeated IV antibiotic therapy. He is status post left BKA on 06/24/2017. Wound cultures had shown MRSA and he was on daptomycin and Zosyn. Patient was admitted to the hospital after he had fallen a couple of times while trying to balance himself getting into his wheelchair and his walker and he sustained wound dehiscence. He was initially managed in the wound center on Levaquin and doxycycline. Wound cultures showed Burkholderia cepacia, MRSE. Admitted for antibiotic therapy Patient denied any new complaints. He has had a wound VAC to the left stump, he is on IV vancomycin and Zosyn. ID has been consulted. PICC line was placed 2 days ago for long-term IV antibiotics. Repeat wound cultures so far has been negative. This was initially be scheduled for TCU as he did not want to go anywhere. Patient would at the moment go home with home health with the wound VAC and IV antibiotics. Blood Glucose in this admission has been fairly controlled. Remains on NPH insulin as well as pre-meal insulin and insulin sliding scale. Laboratory investigations have been unremarkable with no worsening creatinine or leukocytosis Vitals/I&O's: Vital Signs Temp Pulse Resp BP Pulse Ox 98.5 F 73 16 156/68 H 98 08/21/17 03:30 08/21/17 03:30 08/21/17 03:30 08/21/17 03:30 08/21/17 03:30 Oxygen Delivery Method Room Air Weight: 129.3 kg Body Mass Index (BMI) 35.6 Finger Stick Blood Glucose 205 Intake and Output for Last 24 Hours 08/19/17 08/20/17 08/21/17 23:59 23:59 23:59 Intake Total 7329 / 7329 2412 / 2412 2434 / 2434 Output Total 5600 / 5600 5200 / 5200 1500 / 1500 Balance 1729 / 1729 -2788 / -2788 934 / 934 General: Alert, Oriented x3, Cooperative, No apparent distress HEENT: Atraumatic, PERRLA, EOMI, Normocephalic Oral: Moist Mucosa Neck: Supple Lungs: Clear to auscultation, Normal air movement Cardiovascular: Regular rate, Regular Rhythm, Normal S1, Normal S2, No murmurs Abdomen: Bowel Sounds Present, Soft, Non Tender, Non-Distended, No Hepato-splenomegaly Extremities: Edema - Of the right lower extremity with erythema around the lower one third of the leg with some scabbing of some skin ulcerations. Left BKA with wound VAC in situ and Terry wraps Skin: No rashes, No breakdown Musculoskeletal: No Tenderness to Palpation of Joints or Extremities Lymphatic: No Cervical, Supraclavicular, or Inguinal Adenopathy Neurological: Cranial nerves II-XII grossly intact Psych/Mental Status: Normal Affect, Appropriate Laboratory Results 08/20/17 10:59: POC Glucose 184 H 08/20/17 15:57: POC Glucose 98 08/20/17 21:47: POC Glucose 171 H 08/21/17 05:55: WBC 5.9, RBC 4.30 L, Hgb 11.5 L, Hct 36.4 L, MCV 84.7, MCH 26.7 L, MCHC 31.6 L, RDW 14.7 H, RDW Differential 44.0 H, Plt Count 267, MPV 9.2 08/21/17 05:55: Sodium 140, Potassium 3.7, Chloride 101, Carbon Dioxide 32.0, Anion Gap 7, BUN 26 H, Creatinine 1.12, Estim Creat Clear Calc 82.78, Est GFR (MDRD) Af Amer 86, Est GFR (MDRD) Non-Af 71, BUN/Creatinine Ratio 23.2 H, Glucose 94, Calcium 9.2 08/21/17 08:02: POC Glucose 123 H Current Medications Atorvastatin Calcium (Lipitor) 40 mg PO QHS COUNT INCLUDES THE [facility] Last Admin: 08/20/17 21:49 Dose: 40 mg Bupropion HCl (Wellbutrin Xl) 150 mg PO DAILY COUNT INCLUDES THE [facility] Last Admin: 08/20/17 07:35 Dose: 150 mg Citalopram Hydrobromide (Celexa) 40 mg PO DAILY COUNT INCLUDES THE [facility] Last Admin: 08/20/17 07:35 Dose: 40 mg Diazepam (Valium) 5 mg PO 4X/DAY PRN PRN PRN Reason: SPASMS Last Admin: 08/19/17 09:23 Dose: 5 mg Docusate Sodium (Colace) 100 mg PO BID COUNT INCLUDES THE [facility] Last Admin: 08/20/17 21:48 Dose: Not Given Gabapentin ([facility]urontin) [facility] Last Admin: 08/21/17 08:04 Dose: 800 mg Hydromorphone HCl (Dilaudid Inj) 1 mg IV Q4H PRN PRN PRN Reason: SEVERE PAIN (6-10/10) Last Admin: 08/21/17 03:33 Dose: 1 mg Lactated Ringer's () 1,000 mls @ 60 mls/hr IV .[id number] COUNT INCLUDES THE [facility] Last Admin: 08/20/17 23:35 Dose: 60 mls/hr Piperacillin Sod/Tazobactam Sod (Zosyn) 3.375 gm in 50 mls @ 12.5 mls/hr IV Q8 COUNT INCLUDES THE [facility] Last Admin: 08/21/17 05:41 Dose: 12.5 mls/hr Vancomycin HCl (Vancomycin) 1,000 mg in 200 mls @ 200 mls/hr IV Q12H COUNT INCLUDES THE [facility] Last Admin: 08/20/17 23:30 Dose: 200 mls/hr Vancomycin IV Pharmacy to Dose (1 ea/ Sodium Chloride) 500 mls @ 250 mls/hr IV PRN PRN PRN Reason: Protocol Ibuprofen (Motrin) 400 mg PO Q6H PRN PRN PRN Reason: PAIN Last Admin: 08/20/17 21:34 Dose: 400 mg Insulin Human Lispro (Humalog Kwikpen (Bkc)) 20 unit SC TIDCM COUNT INCLUDES THE [facility] Last Admin: 08/21/17 08:06 Dose: 20 units Insulin Human NPH (Humulin N (Bkc)) 50 units SC BID@0800,1700 COUNT INCLUDES THE [facility] Last Admin: 08/21/17 08:05 Dose: 50 units Lactobacillus Acidophilus (Acidophilus) 1 tablet PO 4X/DAY COUNT INCLUDES THE [facility] Last Admin: 08/20/17 21:47 Dose: 1 tablet Losartan Potassium (Cozaar) 100 mg PO DAILY COUNT INCLUDES THE [facility] Last Admin: 08/20/17 07:35 Dose: 100 mg Metformin [facility] ([facility]) [facility] Last Admin: 08/21/17 08:04 Dose: 1,000 mg Nutritional Formula (Greg - [place] Flavor) [facility] Last Admin: 08/21/17 08:05 Dose: 1 packet Nutritional Formula (Lactose Free) (Glucerna Shake) 120 ml PO 4X/DAY COUNT INCLUDES THE [facility] Last Admin: 08/20/17 21:48 Dose: 120 ml Ondansetron HCl (Zofran) 4 mg IV Q6H PRN PRN PRN Reason: NAUSEA Oxycodone HCl (Oxyir) 10 mg PO Q4H PRN PRN PRN Reason: SEVERE PAIN (6-10/10) Last Admin: 08/19/17 09:22 Dose: 10 mg Pantoprazole Sodium (Protonix) 20 mg PO BID COUNT INCLUDES THE [facility] Last Admin: 08/20/17 21:49 Dose: 20 mg Polysaccharide Iron Complex (Ferrex 150) [facility] Last Admin: 08/21/17 08:04 Dose: 150 mg Promethazine HCl (Phenergan Tablet) 25 mg PO Q4H PRN PRN PRN Reason: NAUSEA/VOMITING Sodium Chloride () 5 - 30 ml IV UD PRN PRN Reason: SALINE FLUSH Last Admin: 08/21/17 05:46 Dose: 30 ml Triamterene/HCTZ (Dyazide (G)) 1 cap PO DAILY COUNT INCLUDES THE [facility] Last Admin: 08/20/17 07:36 Dose: 1 cap Medical Necessity - Tobacco Use Smoking Status: Former smoker Assessment/Plan All Active Problems (Last Reviewed 03/06/17 @ 09:46 by Renuka Key) Infection of amputation stump of left lower extremity (Acute) Dehiscence of amputation stump (Acute) History of left below knee amputation (Acute) Acute osteomyelitis of left foot (Acute) Non-pressure chronic ulcer of left heel and midfoot with bone involvement without evidence of necrosis (Acute) Cellulitis (Resolved) Cellulitis and abscess of toe of left foot (Resolved) Cellulitis of great toe, left (Resolved) Cellulitis of leg (Resolved) Cellulitis of right foot (Resolved) Deep venous thrombosis (Resolved) Diabetic toe ulcer (Resolved) Fracture of left foot (Resolved) Hammer toe of right foot (Resolved) Healed ulcer of left foot on examination (Resolved) Lymphangitis (Resolved) MRSA (methicillin resistant Staphylococcus aureus) infection (Resolved) Non-pressure chronic ulcer of other part of right foot with fat layer exposed (Resolved) Osteomyelitis (Resolved) Right foot infection (Resolved) Sepsis (Resolved) Skin ulcer of left great toe with fat layer exposed (Resolved) Toe osteomyelitis, right (Resolved) Ulcer of right leg (Resolved) Ulcer of right lower extremity with fat layer exposed (Resolved) Ulcer of right lower extremity with fat layer exposed (Resolved) Ulcer of right second toe with fat layer exposed (Resolved) Ulcer of toe of right foot (Resolved) Ulcer with necrosis of muscle (Resolved) Wound of left leg (Resolved) Wound of right leg (Resolved) 62-year-old male type II diabetic with history of recurrent MRSA osteomyelitis, status post left BKA, comes in with worsening wound infection status post wound dehiscence after trauma. 1. Acute Burkholderia/MRSE recurrent osteomyelitis of left BKA in a known diabetic, ID consulted, on vancomycin and Zosyn Status post PICC line, ID planning on IV antibiotics for 6 [place] [address]. Patient will be followed with weekly labs, no fevers, vitals are stable, no leukocytosis, will continue per ID recommendations 2. Type II DM, complicated by peripheral neuropathy on insulin, continue current insulins as blood sugars are controlled, continue on gabapentin, metformin 3. Hyperlipidemia, on statin 4. Hypertension, controlled, on triamterene/HCTZ, losartan, will continue these medications, renal function appears okay 5. PETRA 6. DVT PPx - Lovenox SC Code Visit Inpatient E&M: 60207 Subs Hosp L2
--- NOTE | 2017-08-21 09:34 | PCM.PN.ID ---
Subjective: Feeling ok, no issues with abx, no fever, no n/v/d. Picc in place. - Physical Exam General: Alert, Cooperative, No apparent distress Lungs: Clear to auscultation, Normal air movement Cardiovascular: Regular rate, Regular Rhythm Abdomen: Soft, Non Tender, Non-Distended Skin: Ulcer/ Wound - leg wrapped Vital Signs Temp Pulse Resp BP Pulse Ox 98.5 F 73 16 156/68 H 98 08/21/17 03:30 08/21/17 03:30 08/21/17 03:30 08/21/17 03:30 08/21/17 03:30 Oxygen Delivery Method Room Air Weight: 129.3 kg Body Mass Index (BMI) 35.6 Finger Stick Blood Glucose 205 Intake and Output for Last 24 Hours 08/19/17 08/20/17 08/21/17 23:59 23:59 23:59 Intake Total 7329 / 7329 2412 / 2412 2434 / 2434 Output Total 5600 / 5600 5200 / 5200 1500 / 1500 Balance 1729 / 1729 -2788 / -2788 934 / 934 Laboratory Tests Past 24 Hrs 08/21/17 08/21/17 05:55 05:55 WBC 5.9 RBC 4.30 L Hgb 11.5 L Hct 36.4 L MCV 84.7 MCH 26.7 L MCHC 31.6 L RDW 14.7 H RDW Differential 44.0 H Plt Count 267 MPV 9.2 Sodium 140 Potassium 3.7 Chloride 101 Carbon Dioxide 32.0 Anion Gap 7 BUN 26 H Creatinine 1.12 Estim Creat Clear Calc 82.78 Est GFR (MDRD) Af Amer 86 Est GFR (MDRD) Non-Af 71 BUN/Creatinine Ratio 23.2 H Glucose 94 Calcium 9.2 POC Glucose 08/21/17 08/20/17 08/20/17 08:02 21:47 15:57 POC Glucose 123 H 171 H 98 08/20/17 10:59 POC Glucose 184 H Medical Necessity - Tobacco Use Smoking Status: Former smoker Route of nutrition/ use of supplements: [] Nutritional Intake: [] IV Site: [] Tam Catheter: [] - Assessment/Plan Antibiotics: [] Assessment/Plan: [] L BKA stump osteomyelitis with cx (+) burkholderia and MRSE - cont vanc/zosyn. Picc placed. Plan will be for 6 week course of iv abx, stop date 09/29/17. Weekly bmp, cbc, vanc trough, and esr while on iv abx. . Will follow
[2017-08-21 10:15] VITALS: BP 133/75; PULSE 84; RESP 18; TEMP 36.8; O2SAT 97
[2017-08-21] MEDS: Triamterene 37.5MG/Hctz 25MG Capsule 1 CAP PO (10:19)
[2017-08-21] MEDS: Losartan Potassium 100 MG Tablet PO (10:19)
[2017-08-21] MEDS: Citalopram 40 MG TABLET PO (10:19)
[2017-08-21] MEDS: Pantoprazole Sodium 20 MG Tablet PO ×2 (10:20→22:27)
[2017-08-21] MEDS: Empagliflozin 25 MG Tablet PO (10:20)
[2017-08-21] MEDS: buPROPion (XL) 150 MG TABLET.XL PO (10:21)
[2017-08-21] MEDS: Glucerna Shake 120 ML LIQUID PO ×4 (10:23→22:25)
[2017-08-21 11:16] LABS: Bedside Glucose 184 mg/dL (70-110)
--- NOTE | 2017-08-21 11:36 | PCM.RX.CS ---
Consult Type of Consult: Follow-up Suspected Infection: Skin/Soft tissue Prior Doses of Antibiotics Received/Current Regimen: VANCOMYCIN 1000MG IV Q12HRS: 08/20 @1133, 2330 Labs: Sodium 140 mmol/L (136-145) 08/21/17 05:55 Potassium 3.7 mmol/L (3.5-5.1) 08/21/17 05:55 Chloride 101 mmol/L (98-107) 08/21/17 05:55 Carbon Dioxide 32.0 mmol/L (21.0-32.0) 08/21/17 05:55 Anion Gap 7 (5-15) 08/21/17 05:55 BUN 26 mg/dL (7-18) H 08/21/17 05:55 Creatinine 1.12 mg/dL (0.70-1.30) 08/21/17 05:55 Est GFR (MDRD) Af Amer 86 mL/min (>60) 08/21/17 05:55 Est GFR (MDRD) Non-Af 71 mL/min (>60) 08/21/17 05:55 BUN/Creatinine Ratio 23.2 RATIO (10-20) H 08/21/17 05:55 Glucose 94 mg/dL (74-106) 08/21/17 05:55 Vancomycin Trough 11.0 ug/mL (5.0-15.0) 08/21/17 10:20 Goal Trough: 10-15 mcg/mL Pharmacy Plan for Drug Dosing: A trough was drawn which resulted in a value of 11 (11hrs from last administered dose). Since the patient is within his torugh goal of 10-15, will continue current regimen. Will reorder another trough in 4 days if the patient is still admitted PLAN/RECOMMENDATIONS 1. Continue vancomycin 1000mg IV Q12hrs 2. Will order another trough for 08/25/17 if the patient is still admitted 3. Pharmacy Service will continue to monitor and adjust dosing as required.
[2017-08-21 14:18] VITALS: BP 146/66; PULSE 93; RESP 16; TEMP 36.6; O2SAT 95
[2017-08-21 16:21] LABS: Bedside Glucose 134 mg/dL (70-110)
[2017-08-21] MEDS: Lactated Ringers 1,000 ML 60 ML IV (18:30)
--- NOTE | 2017-08-21 19:54 | PN.SURG_ITS ---
Subjective: Patient is resting comfortably. VAC changed today. He tolerated reasonably well. - Physical Exam General: Alert, Oriented x3 HEENT: PERRLA, EOMI Oral: Moist Mucosa Neck: Supple Lungs: Clear to auscultation Cardiovascular: Regular rate, Regular Rhythm Abdomen: Soft, Non-Distended Skin: Ulcer/ Wound - left BKA stump stable. VAC changed today. Wound is stable. No bleeding noted. Bone is palpable. Neurological: Cranial nerves II-XII grossly intact Psych/Mental Status: Normal Affect, Appropriate Vital Signs Temp Pulse Resp BP Pulse Ox 97.9 F 93 16 146/66 H 95 08/21/17 14:18 08/21/17 14:18 08/21/17 14:18 08/21/17 14:18 08/21/17 14:18 Oxygen Delivery Method Room Air Weight: 285 lb 0.923 oz Body Mass Index (BMI) 35.6 Finger Stick Blood Glucose 205 Intake and Output for Last 24 Hours 08/19/17 08/20/17 08/21/17 23:59 23:59 23:59 Intake Total 7329 / 7329 2412 / 2412 4485 / 4485 Output Total 5600 / 5600 5200 / 5200 2250 / 2250 Balance 1729 / 1729 -2788 / -2788 2235 / 2235 Laboratory Tests Past 24 Hrs 08/21/17 08/21/17 08/21/17 05:55 05:55 10:20 WBC 5.9 RBC 4.30 L Hgb 11.5 L Hct 36.4 L MCV 84.7 MCH 26.7 L MCHC 31.6 L RDW 14.7 H RDW Differential 44.0 H Plt Count 267 MPV 9.2 Sodium 140 Potassium 3.7 Chloride 101 Carbon Dioxide 32.0 Anion Gap 7 BUN 26 H Creatinine 1.12 Estim Creat Clear Calc 82.78 Est GFR (MDRD) Af Amer 86 Est GFR (MDRD) Non-Af 71 BUN/Creatinine Ratio 23.2 H Glucose 94 Calcium 9.2 Vancomycin Trough 11.0 POC Glucose 08/21/17 08/21/17 08/21/17 16:13 11:03 08:02 POC Glucose 134 H 184 H 123 H 08/20/17 21:47 POC Glucose 171 H Medical Necessity - Tobacco Use Smoking Status: Former smoker Assessment/Plan All Active Problems (Last Reviewed 03/06/17 @ 09:46 by Renuka Key) Infection of amputation stump of left lower extremity (Acute) Dehiscence of amputation stump (Acute) History of left below knee amputation (Acute) Acute osteomyelitis of left foot (Acute) Non-pressure chronic ulcer of left heel and midfoot with bone involvement without evidence of necrosis (Acute) Cellulitis (Resolved) Cellulitis and abscess of toe of left foot (Resolved) Cellulitis of great toe, left (Resolved) Cellulitis of leg (Resolved) Cellulitis of right foot (Resolved) Deep venous thrombosis (Resolved) Diabetic toe ulcer (Resolved) Fracture of left foot (Resolved) Hammer toe of right foot (Resolved) Healed ulcer of left foot on examination (Resolved) Lymphangitis (Resolved) MRSA (methicillin resistant Staphylococcus aureus) infection (Resolved) Non-pressure chronic ulcer of other part of right foot with fat layer exposed ( Resolved) Osteomyelitis (Resolved) Right foot infection (Resolved) Sepsis (Resolved) Skin ulcer of left great toe with fat layer exposed (Resolved) Toe osteomyelitis, right (Resolved) Ulcer of right leg (Resolved) Ulcer of right lower extremity with fat layer exposed (Resolved) Ulcer of right lower extremity with fat layer exposed (Resolved) Ulcer of right second toe with fat layer exposed (Resolved) Ulcer of toe of right foot (Resolved) Ulcer with necrosis of muscle (Resolved) Wound of left leg (Resolved) Wound of right leg (Resolved) ASSESSMENT 1. Left BKA stump traumatic wound dehiscence with infection. 3. History of osteomyelitis. 4. Diabetes mellitus. 5. History of MRSA. 6. Charcot foot neuropathic osteoarthropathy. 7. Former smoker. 8. History of VRE. PLAN VAC changed today. Tolerated reasonably well. To be changed three days per week at 150 mmHg continuous suction. Continue IV Vancomycin and Zosyn for recent culture of Burkholderia cepacia and MRSE. PICC line was placed for long term care administrator IV antibiotics - 6 weeks. Wound Center culture day of admission is negative. Prealbumin was 33.9. Encourage nutritional supplementation with protein to help the healing process. He was not able to get into TCU or rehab. Therefore he will be sent home on IV antibiotics and the VAC. Home Health will be set up to assist with the VAC and to assist with the IV antibiotics. When infection is under control and the inflammation has subsided, can proceed with delayed secondary wound closure revision of the amputation stump. Will biopsy the bone as well as he has history of osteomyelitis. After discharge, followup at the Wound Center. He will also be evaluated for HBO treatments to help salvage the amputation stump. Patient was informed of the risks and complications of the procedure including alternatives to surgery. These were discussed with the patient personally. Patient voices understanding and wishes to proceed with the current plan of aggressive wound care and IV antibiotics to try and salvage the BKA stump and to minimize possible revision to an AKA if not aggressively treated. He voices understanding and wishes to proceed. Anticipate discharge tomorrow.
--- NOTE | 2017-08-21 20:09 | PCM.DC ---
You will use the following diet at home:: Calorie/Carbohydrate Controlled (specify 1200, 1400, etc) Discharge Activity: May Not Drive, May Shower - on the days the vac is changed., Use Walker - may use walker with assist., - - may ambulate with wheelchair with left leg extended. May shower in (days): 2 - may shower on the days the vac is changed. May resume sexual activity in: No Restrictions Weight Bearing Status: Weight bearing as tolerated - with assist with walker or wheelchair. Keep extremity elevated above heart level: Left Leg - when sitting. Call your doctor if your incision/area has: Continuous Slow Oozing, Sudden Increased Bleeding, Increased Pain/ Swelling, Increased Redness, Foul Smelling Discharge, Swelling at the incision site Call your doctor if you observe: Fever of 101 or Higher, Coldness, Increased Pain, Shortness of breath, Chest pain, Calf discomfort, Uncontrolled pain Suture Line Care: - - vac changes three times per week at 150 mmHg continuous suction. Change Dressing in (Days):: 2 - vac changes three times per week. Cleanse incision/area with: Soap & Water - may cleanse the wound with soap and water on the days the vac is changed., - - may shower on the days the vac is changed. Additional Dressing/Incision Instructions:: Home Health to assist with vac changes to left BKA stump three times per week at 150 mmHg continuous suction. Additional Instructions: Home Health to draw labs every Friday and send results to Dr. Sanders and the Wound Center. [phone]. CBC, BMP, ESR, and Vanc Trough. Allergies/Adverse Reactions: Allergies cefepime Allergy (Verified 07/31/17 21:41) Hives sulfamethoxazole [From Septra] Allergy (Verified 07/31/17 21:41) turned red trimethoprim [From Octra] Allergy (Verified 07/31/17 21:41) turned red lisinopril Adverse Reaction (Verified 08/18/17 19:39) cough Medications to take at Discharge Metformin HCl [Glucophage] 1,000 mg PO BIDCM 11/15/14 Losartan Potassium [Cozaar] 100 mg PO DAILY 06/05/16 buPROPion XL [Wellbutrin Xl] 150 mg PO DAILY 01/21/17 Triamterene/Hydrochlorothiazid [Triamterene-Hctz 37.5-25 mg Cp] 1 each PO DAILY 03/24/17 Glucerna Shake 120 ml PO 4X/DAY 06/19/17 Atorvastatin Calcium [Lipitor] 40 mg PO QHS #30 tab 07/11/17 Iron Polysaccharide Complex [Ferrex 150] 150 mg PO DAILYCM #30 cap 07/11/17 Lactobacillus Acidophilus [Acidophilus] 1 tab PO 4X/DAY #120 tab 07/11/17 Pantoprazole Sodium [Protonix] 20 mg PO BID #60 tab 07/11/17 Citalopram [Celexa] 40 mg PO DAILY 08/18/17 Empagliflozin [Jardiance] 25 mg PO DAILY 08/18/17 Gabapentin [Neurontin] 800 mg PO 4X/DAY 08/18/17 Ibuprofen [Motrin] 400 mg PO Q6H PRN PRN 08/18/17 Insulin NPH Human Isophane [Novolin N] 50 unit SQ BID 08/18/17 Insulin Regular, Human [Novolin R] 20 unit SC TIDCM 08/18/17 Diazepam [Valium] 5 mg PO 4X/DAY PRN PRN 7 Days #30 tab 08/21/17 Docusate Sodium [Colace] 100 mg PO BID capsule 08/21/17 Gabapentin [Neurontin] 800 mg PO 4X/DAYCM tablet 08/21/17 Glucerna Shake 120 ml PO 4X/DAY liquid 08/21/17 Oxycodone HCl/Acetaminophen [Percocet 5/325] 1 - 2 tab PO 4X/DAY PRN PRN 7 Days #50 tab 08/21/17 Piperacil/Tazobactam [Zosyn] 3.375 gm IV Q8 39 Days #117 bag 08/21/17 Vancomycin - IV other orders [Vancomycin] 1,000 mg IV Q12H 39 Days #78 bag 08/21/17 proMETHazine tablet [Phenergan tablet] 25 mg PO Q4H PRN PRN tablet 08/21/17 The following prescriptions were given: Diazepam [Valium] 5 mg PO 4X/DAY PRN PRN 7 Days #30 tab PRN Reason: Spasms Oxycodone HCl/Acetaminophen [Percocet 5/325] 1 - 2 tab PO 4X/DAY PRN PRN 7 Days #50 tab PRN Reason: Pain Piperacil/Tazobactam [Zosyn] 3.375 gm IV Q8 39 Days #117 bag Vancomycin - IV other orders [Vancomycin] 1,000 mg IV Q12H 39 Days #78 bag Primary Care Physician: Orion Cordova [Primary Care Provider] - Test Results: Test results from this visit will be discussed in further detail at your follow-up appointment, if applicable. Please Follow Up With: Lucho Rodriguez MD When: 1 week at [facility], 09/01/17. call [phone] for appt. Please Follow Up With: Yariel Sanders MD When: 2 weeks to monitor antibiotic therapy. Proposed Discharge Date: 08/22/17
[2017-08-21 20:13] VITALS: BP 133/68; PULSE 79; RESP 16; TEMP 36.6; O2SAT 98
--- NOTE | 2017-08-21 20:16 | DCINST_ITS ---
You will use the following diet at home:: Calorie/Carbohydrate Controlled ( specify 1200, 1400, etc) Discharge Activity: May Not Drive, May Shower - on the days the vac is changed. , Use Walker - may use walker with assist., - - may ambulate with wheelchair with left leg extended. May shower in (days): 2 - may shower on the days the vac is changed. May resume sexual activity in: No Restrictions Weight Bearing Status: Weight bearing as tolerated - with assist with walker or wheelchair. Keep extremity elevated above heart level: Left Leg - when sitting. Call your doctor if your incision/area has: Continuous Slow Oozing, Sudden Increased Bleeding, Increased Pain/ Swelling, Increased Redness, Foul Smelling Discharge, Swelling at the incision site Call your doctor if you observe: Fever of 101 or Higher, Coldness, Increased Pain, Shortness of breath, Chest pain, Calf discomfort, Uncontrolled pain Suture Line Care: - - vac changes three times per week at 150 mmHg continuous suction. Change Dressing in (Days):: 2 - vac changes three times per week. Cleanse incision/area with: Soap & Water - may cleanse the wound with soap and water on the days the vac is changed., - - may shower on the days the vac is changed. Additional Dressing/Incision Instructions:: Home Health to assist with vac changes to left BKA stump three times per week at 150 mmHg continuous suction. Additional Instructions: Home Health to draw labs every Friday and send results to Dr. Sanders and the [facility]. [phone]. CBC, BMP, ESR, and Vanc Trough. Allergies/Adverse Reactions: Allergies cefepime Allergy (Verified 07/31/17 21:41) Hives sulfamethoxazole [From Septra] Allergy (Verified 07/31/17 21:41) turned red trimethoprim [From Octra] Allergy (Verified 07/31/17 21:41) turned red lisinopril Adverse Reaction (Verified 08/18/17 19:39) cough Medications to take at Discharge Metformin HCl [Glucophage] 1,000 mg PO BIDCM 11/15/14 Losartan Potassium [Cozaar] 100 mg PO DAILY 06/05/16 buPROPion XL [Wellbutrin Xl] 150 mg PO DAILY 01/21/17 Triamterene/Hydrochlorothiazid [Triamterene-Hctz 37.5-25 mg Cp] 1 each PO DAILY 03/24/17 Glucerna Shake 120 ml PO 4X/DAY 06/19/17 Atorvastatin Calcium [Lipitor] 40 mg PO QHS #30 tab 07/11/17 Iron Polysaccharide Complex [Ferrex 150] 150 mg PO DAILYCM #30 cap 07/11/17 Lactobacillus Acidophilus [Acidophilus] 1 tab PO 4X/DAY #120 tab 07/11/17 Pantoprazole Sodium [Protonix] 20 mg PO BID #60 tab 07/11/17 Citalopram [Celexa] 40 mg PO DAILY 08/18/17 Empagliflozin [Jardiance] 25 mg PO DAILY 08/18/17 Gabapentin [Neurontin] 800 mg PO 4X/DAY 08/18/17 Ibuprofen [Motrin] 400 mg PO Q6H PRN PRN 08/18/17 Insulin NPH Human Isophane [Novolin N] 50 unit SQ BID 08/18/17 Insulin Regular, Human [Novolin R] 20 unit SC TIDCM 08/18/17 Diazepam [Valium] 5 mg PO 4X/DAY PRN PRN 7 Days #30 tab 08/21/17 Docusate Sodium [Colace] 100 mg PO BID capsule 08/21/17 Gabapentin [Neurontin] 800 mg PO 4X/DAYCM tablet 08/21/17 Glucerna Shake 120 ml PO 4X/DAY liquid 08/21/17 Oxycodone HCl/Acetaminophen [Percocet 5/325] 1 - 2 tab PO 4X/DAY PRN PRN 7 Days #50 tab 08/21/17 Piperacil/Tazobactam [Zosyn] 3.375 gm IV Q8 39 Days #117 bag 08/21/17 Vancomycin - IV other orders [Vancomycin] 1,000 mg IV Q12H 39 Days #78 bag 08/21 proMETHazine tablet [Phenergan tablet] 25 mg PO Q4H PRN PRN tablet 08/21/17 The following prescriptions were given: Diazepam [Valium] 5 mg PO 4X/DAY PRN PRN 7 Days #30 tab PRN Reason: Spasms Oxycodone HCl/Acetaminophen [Percocet 5/325] 1 - 2 tab PO 4X/DAY PRN PRN 7 Days #50 tab PRN Reason: Pain Piperacil/Tazobactam [Zosyn] 3.375 gm IV Q8 39 Days #117 bag Vancomycin - IV other orders [Vancomycin] 1,000 mg IV Q12H 39 Days #78 bag Primary Care Physician: Orion Cordova [Primary Care Provider] - Test Results: Test results from this visit will be discussed in further detail at your follow- up appointment, if applicable. Please Follow Up With: Lucho Rodriguez MD When: [address] [facility], 09/01/17. call [phone] for appt. Please Follow Up With: Yariel Sanders MD When: 2 weeks to monitor antibiotic therapy. Proposed Discharge Date: 08/22/17
[2017-08-21] MEDS: Atorvastatin Calcium 40 MG Tablet PO (22:26)
[2017-08-21 23:00] LABS: Bedside Glucose 149 mg/dL (70-110)
[2017-08-22] MEDS: HYDROmorphone 1 MG/ML Syringe IV (00:37)
[2017-08-22 02:03] VITALS: BP 120/58; PULSE 69; RESP 16; TEMP 36.6; O2SAT 97
[2017-08-22] MEDS: Piperacil/Tazobactam 3.375 GM/50 ML ML IV ×2 (05:24→13:06)
--- NOTE | 2017-08-22 08:24 | NURSING ---
Wound VAC dressing was changed yesterday. dressing intact. Good seal noted at 150mmHg low continuous suction. reapplied the CONCHIS wrap. awaiting home VAC approval. Pt will most likely be discharged home today with home health.
[2017-08-22] MEDS: metFORMIN HCl 1,000 MG Tablet 1000 MG PO (08:41)
[2017-08-22] MEDS: Iron Polysaccharide Complex 150 MG CAPSULE PO (08:41)
[2017-08-22] MEDS: Citalopram 40 MG TABLET PO (08:42)
[2017-08-22] MEDS: Gabapentin 800 MG Tablet PO ×2 (08:42→12:50)
[2017-08-22] MEDS: Docusate Sodium 100 MG Capsule PO (08:43)
[2017-08-22] MEDS: Pantoprazole Sodium 20 MG Tablet PO (08:43)
[2017-08-22] MEDS: buPROPion (XL) 150 MG TABLET.XL PO (08:43)
[2017-08-22] MEDS: Triamterene 37.5MG/Hctz 25MG Capsule 1 CAP PO (08:44)
[2017-08-22] MEDS: Losartan Potassium 100 MG Tablet PO (08:44)
[2017-08-22] MEDS: Enoxaparin 40 MG/0.4 ML Syringe SC (08:44)
[2017-08-22] MEDS: Empagliflozin 25 MG Tablet PO (08:44)
[2017-08-22] MEDS: Insulin Lispro 100 UNIT/ML INSULN.PEN 20 UNIT SC ×2 (08:54→12:48)
[2017-08-22] MEDS: Insulin NPH Human 100 UNITS/ML PEN 50 UNITS SC (08:54)
[2017-08-22] MEDS: Glucerna Shake 120 ML LIQUID PO ×2 (08:55→13:17)
[2017-08-22 09:06] LABS: Bedside Glucose 203 mg/dL (70-110)
--- NOTE | 2017-08-22 10:00 | CASEMGMT ---
MARY CLEMENTE updated by [facility] that ATBs and supplies for 6 week will cost approximately $700. Patient updated and is agreeable to cost of IV ATB and to HHC. MARY CLEMENTE sent script to [facility] and wound vac orders and requested [facility] to setup HHC. MARY CLEMENTE will continue to monitor this patient and plan for a safe discharge.
--- NOTE | 2017-08-22 10:09 | PN_ITS ---
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 Patient has no specific complaints today, white blood cell count yesterday was normal, he is afebrile today. - Physical Exam General: Alert, Oriented x3, Cooperative, No apparent distress, Well developed, Well nourished HEENT: Atraumatic, PERRLA, EOMI, Normocephalic Oral: Moist Mucosa Neck: Supple, No JVD, No Nuchal Rigidity, Trachea Midline, Thyroid Normal Size and Texture Lungs: Clear to auscultation, Normal air movement, No rhonchi, No wheeze, No rales Cardiovascular: Regular rate, Regular Rhythm, Normal S1, Normal S2, No murmurs, No Ectopic Activity, PMI Normal, No rub noted, No Gallop Abdomen: Bowel Sounds Present, Soft, Non Tender, Non-Distended, No hernias noted Extremities: Capillary Refill Less than 3 Seconds, - - Left below the knee amputation site has wound VAC applied Neurological: Cranial nerves II-XII grossly intact, Motor Exam 5/5 strength throughout, Coordination normal Psych/Mental Status: Normal Affect, Appropriate, Alert and oriented to time, place, person, mood and affect Vital Signs Temp Pulse Resp BP Pulse Ox 97.9 F 69 16 120/58 L 97 08/22/17 02:03 08/22/17 02:03 08/22/17 02:03 08/22/17 02:03 08/22/17 02:03 Oxygen Delivery Method Room Air Weight: 129.3 kg Body Mass Index (BMI) 35.6 Finger Stick Blood Glucose 205 Intake and Output for Last 24 Hours 08/20/17 08/21/17 08/22/17 23:59 23:59 23:59 Intake Total 2412 / 2412 4485 / 4485 1680 / 1680 Output Total 5200 / 5200 2250 / 2250 1600 / 1600 Balance -2788 / -2788 2235 / 2235 80 / 80 Laboratory Tests Past 24 Hrs 08/21/17 10:20 Vancomycin Trough 11.0 POC Glucose 08/22/17 08/21/17 08/21/17 08:53 22:22 16:13 POC Glucose 203 H 149 H 134 H 08/21/17 11:03 POC Glucose 184 H Medical Necessity - Tobacco Use Smoking Status: Former smoker Assessment/Plan All Active Problems (Last Reviewed 03/06/17 @ 09:46 by Renuka Key) Infection of amputation stump of left lower extremity (Acute) Dehiscence of amputation stump (Acute) History of left below knee amputation (Acute) Acute osteomyelitis of left foot (Acute) Non-pressure chronic ulcer of left heel and midfoot with bone involvement without evidence of necrosis (Acute) Cellulitis (Resolved) Cellulitis and abscess of toe of left foot (Resolved) Cellulitis of great toe, left (Resolved) Cellulitis of leg (Resolved) Cellulitis of right foot (Resolved) Deep venous thrombosis (Resolved) Diabetic toe ulcer (Resolved) Fracture of left foot (Resolved) Hammer toe of right foot (Resolved) Healed ulcer of left foot on examination (Resolved) Lymphangitis (Resolved) MRSA (methicillin resistant Staphylococcus aureus) infection (Resolved) Non-pressure chronic ulcer of other part of right foot with fat layer exposed ( Resolved) Osteomyelitis (Resolved) Right foot infection (Resolved) Sepsis (Resolved) Skin ulcer of left great toe with fat layer exposed (Resolved) Toe osteomyelitis, right (Resolved) Ulcer of right leg (Resolved) Ulcer of right lower extremity with fat layer exposed (Resolved) Ulcer of right lower extremity with fat layer exposed (Resolved) Ulcer of right second toe with fat layer exposed (Resolved) Ulcer of toe of right foot (Resolved) Ulcer with necrosis of muscle (Resolved) Wound of left leg (Resolved) Wound of right leg (Resolved) #1 below the knee amputation stump infection with Burkholderia and MRSE-patient is set up for home antibiotic treatment, he will be following up with plastic surgery for complete closure of the area and bone biopsy at that time #2 type 2 diabetes #3 neuropathy of diabetes #4 hyperlipidemia #5 hypertension-patient will continue on present blood pressure medicine when discharged #6 obstructive sleep apnea Code Visit Inpatient E&M: [id number] [facility] H[facility] L2
--- NOTE | 2017-08-22 10:35 | NURSING ---
Pt switched over to home VAC. pt denies questions. just awaiting arrangements for home health care.
[2017-08-22 11:00] VITALS: BP 136/64; PULSE 81; RESP 18; TEMP 36.6; O2SAT 97
--- NOTE | 2017-08-22 12:00 | CASEMGMT ---
[facility] confirmed IV ATB delivery for today by 9:00pm when next dose is due. [facility] setup HHC through [facility] and they will see patient tomorrow. MARY CLEMENTE updated patient regarding [facility] AT[facility] setup [facility]. Patient states he feel comfortable completing IV ATB tonight and has done IV ATBs in the past. MARY CLEMENTE will continue to follow this patient and plan for a safe discharge.
[2017-08-22 13:20] LABS: Bedside Glucose 152 mg/dL (70-110)
--- NOTE | 2017-08-22 15:03 | PCM.PN.SRG ---
Patient Problems: Active and Suspected Problems (Last Reviewed 03/06/17 @ 09:46 by Renuka Key) Infection of amputation stump of left lower extremity (Acute) Dehiscence of amputation stump (Acute) History of left below knee amputation (Acute) Subjective: Patient is resting comfortably. He is anxious to go home. - Physical Exam General: Alert, Oriented x3 HEENT: PERRLA, EOMI Oral: Moist Mucosa Neck: Supple Lungs: Clear to auscultation Cardiovascular: Regular rate, Regular Rhythm Abdomen: Soft, Non-Distended Skin: Ulcer/ Wound - left BKA stump stable. VAC in place. Minimial drainage in the canister. Neurological: Cranial nerves II-XII grossly intact Psych/Mental Status: Normal Affect, Appropriate Vital Signs Temp Pulse Resp BP Pulse Ox 97.9 F 81 18 136/64 H 97 08/22/17 11:00 08/22/17 11:00 08/22/17 11:00 08/22/17 11:00 08/22/17 11:00 Oxygen Delivery Method Room Air Weight: 285 lb 0.923 oz Body Mass Index (BMI) 35.6 Finger Stick Blood Glucose 205 Intake and Output for Last 24 Hours 08/20/17 08/21/17 08/22/17 23:59 23:59 23:59 Intake Total 2412 / 2412 4485 / 4485 1680 / 1680 Output Total 5200 / 5200 2250 / 2250 2500 / 2500 Balance -2788 / -2788 2235 / 2235 -820 / -820 POC Glucose 08/22/17 08/22/17 08/21/17 12:47 08:53 22:22 POC Glucose 152 H 203 H 149 H 08/21/17 16:13 POC Glucose 134 H Medical Necessity - Tobacco Use Smoking Status: Former smoker Assessment/Plan All Active Problems (Last Reviewed 03/06/17 @ 09:46 by Renuka Key) Infection of amputation stump of left lower extremity (Acute) Dehiscence of amputation stump (Acute) History of left below knee amputation (Acute) Acute osteomyelitis of left foot (Acute) Non-pressure chronic ulcer of left heel and midfoot with bone involvement without evidence of necrosis (Acute) Cellulitis (Resolved) Cellulitis and abscess of toe of left foot (Resolved) Cellulitis of great toe, left (Resolved) Cellulitis of leg (Resolved) Cellulitis of right foot (Resolved) Deep venous thrombosis (Resolved) Diabetic toe ulcer (Resolved) Fracture of left foot (Resolved) Hammer toe of right foot (Resolved) Healed ulcer of left foot on examination (Resolved) Lymphangitis (Resolved) MRSA (methicillin resistant Staphylococcus aureus) infection (Resolved) Non-pressure chronic ulcer of other part of right foot with fat layer exposed (Resolved) Osteomyelitis (Resolved) Right foot infection (Resolved) Sepsis (Resolved) Skin ulcer of left great toe with fat layer exposed (Resolved) Toe osteomyelitis, right (Resolved) Ulcer of right leg (Resolved) Ulcer of right lower extremity with fat layer exposed (Resolved) Ulcer of right lower extremity with fat layer exposed (Resolved) Ulcer of right second toe with fat layer exposed (Resolved) Ulcer of toe of right foot (Resolved) Ulcer with necrosis of muscle (Resolved) Wound of left leg (Resolved) Wound of right leg (Resolved) ASSESSMENT 1. Left BKA stump traumatic wound dehiscence with infection. 3. Osteomyelitis. 4. Diabetes mellitus. 5. History of MRSA. 6. Charcot foot neuropathic osteoarthropathy. 7. Former smoker. 8. History of VRE. PLAN VAC in place. Minimal drainage in the canister. To be changed three days per week at 150 mmHg continuous suction. Continue IV Vancomycin and Zosyn for recent culture of Burkholderia cepacia and MRSE. 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 Wound Center culture day of admission is negative. Prealbumin was 33.9. Encourage nutritional supplementation with protein to help the healing process. He was not able to get into TCU or rehab. Therefore he will be sent home on IV antibiotics and the VAC. Home Health will be set up to assist with the VAC and to assist with the IV antibiotics. When infection is under control and the inflammation has subsided, can proceed with delayed secondary wound closure revision of the amputation stump. Will biopsy the bone as well because of his osteomyelitis. After discharge, followup at the Wound Center. He will also be evaluated for HBO treatments to help salvage the amputation stump. Patient was informed of the risks and complications of the procedure including alternatives to surgery. These were discussed with the patient personally. Patient voices understanding and wishes to proceed with the current plan of aggressive wound care and IV antibiotics to try and salvage the BKA stump and to minimize possible revision to an AKA if not aggressively treated. He voices understanding and wishes to proceed. Discharge home today. Followup Wound Center in one week on Friday09/01/17.
--- NOTE | 2017-08-22 15:03 | PCM.DC.SUM ---
Discharge Date and Diagnosis - Problem List Patient Problems: Active and Suspected Problems (Last Updated 08/25/17 @ 00:50 by Lucho Rodriguez MD) Infection of amputation stump of left lower extremity (Acute) Dehiscence of amputation stump (Acute) History of left below knee amputation (Acute) Date of Admission: 08/18/17 Date of Discharge: 08/22/17 - Primary Discharge Diagnosis Infection left BKA stump. Dehiscence left BKA stump. Recent history of left BKA. Osteomyelitis left BKA stump. - Secondary Discharge Diagnosis Diabetes mellitus. Charcot foot neuropathic osteoarthropathy. Former smoker. Obstructive sleep apnea. Hyperlipidemia. Venous insufficiency of both lower extremities. Peripheral vascular disease. Hypertension. Neuropathy. Depression. History of MRSA. Hospital Course and Treatment Imaging Results: None. Consultations 08/19/17 06:52 Consult: Onc/Wound/customer experience consultant Routine Comment: Reason for Consult:: VAC placement Hospitalist Group - Dr. Monreal and Dr. Che. Infectious Diseases - Dr. Sanders. Operations: None Procedures: PICC line placement, Wound vac placement Summary of Care Provided: 62 year old man who I have been caring for at the Wound Center with nonhealing diabetic ulcers left foot with underlying osteomyelitis. He has been treated off and on in the past with IV antibiotics. He has had MRSA in the past. When the IV antibiotics stop, he develops a recurrent infection. He underwent left BKA on 06/24/17. Operative culture once again showed MRSA in the soft tissue and bone. He was treated with Daptomycin and Zosyn. He states since the surgery he has fallen a couple of times while trying to balance himself with his walker. He sustained a wound dehiscence. He was started on Levaquin and Doxycycline. Wound culture on 08/04/17 showed Burkholderia cepacia and MRSE and nothing oral was sensitive to both. He was seen at the Wound Center today. The wound looked clean with some exudate that was debrided. Good bleeding was seen. The bone is palpable. A wound culture was obtained today at the Wound Center. The culture was negative. With the patient's history of multiple infections in the past, it was recommended to the patient to come back into the hospital for IV antibiotics and placement of a PICC line to stabilize the stump wound infection. Eventually when the inflammation subsides and the infection is under control, can proceed with delayed secondary wound closure revision. Also at that time will biopsy the bone as well because of his osteomyelitis. Today he denies any fever. He was amenable to admission. Upon admission he was started on Vancomycin and Zosyn because of the open wound with palpable bone and osteomyelitis. Also because the previous cultures from 08/04/17 showed organisms that had no good oral regimen that was sensitive. Hospitalist Group was consulted for medical management. Infectious Diseases was consulted to assist with antibiotic management. 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 A VAC was also applied to stabilize the wound and promote healing. Encouraged nutritional supplementation with protein to help the healing process. His vital signs were stable during the hospitalization. His WBC was normal. He was evaluated for continued care at TCU and Rehab and beds were not available. So Home Health was arranged and he was discharged home on the 4th hospital day in satisfactory condition. Followup at the Wound Center on 09/01/17. He will followup with Infectious Diseases in 2 weeks. Wrote scripts for Percocet for pain (50 tabs) and for Valium for spasm (30 tabs). Discharge Diet: Carb Control Diet, - - encourage nutritional supplementation with protein to help the healing process. Discharge Activity: May Not Drive, May Shower - on the days the vac is changed., Use Walker - may use walker with assist., - - may ambulate with wheelchair with left leg extended. May shower in (days): 2 - may shower on the days the vac is changed. May resume sexual activity in: No Restrictions Weight Bearing Status: Weight bearing as tolerated - with assist with walker or wheelchair. Keep extremity elevated above heart level: Left Leg - when sitting. Call your doctor if your incision/area has: Continuous Slow Oozing, Sudden Increased Bleeding, Increased Pain/ Swelling, Increased Redness, Foul Smelling Discharge, Swelling at the incision site Call your doctor if you observe: Fever of 101 or Higher, Coldness, Increased Pain, Shortness of breath, Chest pain, Calf discomfort, Uncontrolled pain Suture Line Care: - - vac changes three times per week at 150 mmHg continuous suction. Change Dressing in (Days):: 2 - vac changes three times per week. Cleanse incision/area with: Soap & Water - may cleanse the wound with soap and water on the days the vac is changed., - - may shower on the days the vac is changed. Additional Dressing/Incision Instructions:: Home Health to assist with vac changes to left BKA stump three times per week at 150 mmHg continuous suction. Home Medications: Medications to take at Discharge RX: Metformin HCl [Glucophage] 1,000 mg PO BIDCM 11/15/14 RX: Losartan Potassium [Cozaar] 100 mg PO DAILY 06/05/16 RX: buPROPion XL [Wellbutrin Xl] 150 mg PO DAILY 01/21/17 RX: Triamterene/Hydrochlorothiazid [Triamterene-Hctz 37.5-25 mg Cp] 1 each PO DAILY 03/24/17 RX: Glucerna Shake 120 ml PO 4X/DAY 06/19/17 RX: Atorvastatin Calcium [Lipitor] 40 mg PO QHS #30 tab 07/11/17 RX: Iron Polysaccharide Complex [Ferrex 150] 150 mg PO DAILYCM #30 cap 07/11/17 RX: Lactobacillus Acidophilus [Acidophilus] 1 tab PO 4X/DAY #120 tab 07/11/17 RX: Pantoprazole Sodium [Protonix] 20 mg PO BID #60 tab 07/11/17 RX: Citalopram [Celexa] 40 mg PO DAILY 08/18/17 RX: Empagliflozin [Jardiance] 25 mg PO DAILY 08/18/17 RX: Gabapentin [Neurontin] 800 mg PO 4X/DAY 08/18/17 RX: Ibuprofen [Motrin] 400 mg PO Q6H PRN PRN 08/18/17 RX: Insulin NPH Human Isophane [Novolin N] 50 unit SQ BID 08/18/17 RX: Insulin Regular, Human [Novolin R] 20 unit SC TIDCM 08/18/17 Diazepam [Valium] 5 mg PO 4X/DAY PRN PRN 7 Days #30 tab 08/21/17 Oxycodone HCl/Acetaminophen [Percocet 5/325] 1 - 2 tab PO 4X/DAY PRN PRN 7 Days #50 tab 08/21/17 RX: Docusate Sodium [Colace] 100 mg PO BID capsule 08/21/17 RX: Gabapentin [Neurontin] 800 mg PO 4X/DAYCM tablet 08/21/17 RX: Glucerna Shake 120 ml PO 4X/DAY liquid 08/21/17 RX: Piperacil/Tazobactam [Zosyn] 3.375 gm IV Q8 39 Days #117 bag 08/21/17 RX: Vancomycin IV [Vancomycin] 1,000 mg IV Q12H 39 Days #78 bag 08/21/17 RX: proMETHazine tablet [Phenergan tablet] 25 mg PO Q4H PRN PRN tablet 08/21/17 Following Prescrptions Were Given to Patient: Diazepam [Valium] 5 mg PO 4X/DAY PRN PRN 7 Days #30 tab PRN Reason: Spasms Oxycodone HCl/Acetaminophen [Percocet 5/325] 1 - 2 tab PO 4X/DAY PRN PRN 7 Days #50 tab PRN Reason: Pain RX: Piperacil/Tazobactam [Zosyn] 3.375 gm IV Q8 39 Days #117 bag RX: Vancomycin IV [Vancomycin] 1,000 mg IV Q12H 39 Days #78 bag Primary Care Physician: Orion Cordova [Primary Care Provider] - Please Follow Up With: Lucho Rodrigeuz MD When: 1 week at wound center, 09/01/17 at 800am. Call [phone] if questions. Please Follow Up With: Yariel Sanders MD When: 2 weeks to monitor antibiotic therapy. Disposition: Home with Home Health Minutes spent on discharge:: 35 Patient Condition:: Stable Medical Necessity - Tobacco Use Smoking Status: Former smoker Meaningful Use Info Meaningful Use Diagnoses (Choose all that apply): None applicable
--- NOTE | 2017-08-26 16:41 | CASEMGMT ---
MARY CLEMENTE Discharge Follow-up Phone Call: SUSHMABob: Kyung Strata: 3 Call Date: 08/26/17 Discharge Date: 08/22/17 Time of Call: 1640 Duration: 3 min Admitting Diagnosis: Left BKA stump infection MARY CLEMENTE completed follow-up phone call after recent hospitalization. Patient states that he is doing well. Patient states that [facility] has been there to see him and that his IV ATBs got delivered without any issues. Patient states that he has his follow-up appts scheduled.
== END 2017-08-22 14:50 | disposition home health service (06) | DRG 565 ==
PROVIDERS: Admitting Provider Surgery; Family Provider Family Medicine; PCP Family Medicine; Visit Provider Internal Medicine
DX: T87.44 Infection of amputation stump, left lower extremity (principal); M86.18 Other acute osteomyelitis, other site; Y83.5 Amputation of limb(s) as the cause of abnormal reaction of the patient, or of later complication, without mention of misadventure at the time of the procedure; G47.33 Obstructive sleep apnea (adult) (pediatric); E78.5 Hyperlipidemia, unspecified; I87.2 Venous insufficiency (chronic) (peripheral); F32.9 Major depressive disorder, single episode, unspecified; T87.81 Dehiscence of amputation stump; E11.42 Type 2 diabetes mellitus with diabetic polyneuropathy; E11.621 Type 2 diabetes mellitus with foot ulcer; Z89.512 Acquired absence of left leg below knee; Z86.14 Personal history of Methicillin resistant Staphylococcus aureus infection; Z89.431 Acquired absence of right foot; Z79.4 Long term (current) use of insulin; Z87.891 Personal history of nicotine dependence; I10 Essential (primary) hypertension; B96.89 Other specified bacterial agents as the cause of diseases classified elsewhere; B95.7 Other staphylococcus as the cause of diseases classified elsewhere; I73.9 Peripheral vascular disease, unspecified; M14.671 Charcot's joint, right ankle and foot
CPT/HCPCS: 11043; 36415; 36569; 80048; 80053; 80202; 82962; 84134; 85025; 85027; 85652; 86140; 87070; 87075; 87205; 97110; 97162; 97166; 97530; 97802; J7120; A4216

== ENCOUNTER → 2017-08-27 12:09 | Outpatient (CLI) | payer MEDICARE, SELFPAY ==
[2017-08-27] MEDS: Alteplase 2 MG/2 ML Vial IV (12:44)
== END ==
PROVIDERS: Family Provider Family Medicine; PCP Family Medicine; Visit Provider Internal Medicine Infectious Disease
DX: Z45.2 Encounter for adjustment and management of vascular access device (principal)
CPT/HCPCS: 36593; J2997; A4216

== ENCOUNTER 2017-09-08 12:00 | Outpatient (RCR) | payer MEDICARE, SELFPAY ==
[2017-08-17 00:08] VITALS: BP 164/71; PULSE 89; RESP 20; TEMP 37.1; O2SAT 92; BMI 37.5
[2017-08-18 12:26] VITALS: BP 150/83; PULSE 88; RESP 18; TEMP 36.9; BMI 37.5
--- NOTE | 2017-08-18 15:17 | PCM.WC.PN ---
Type of Wound Date of Service: 08/18/17 Chief Complaint: Traumatic disruption left BKA stump from falls. History of Wound: Surgery 06/24/17 - Left below knee amputation. Operative culture - MRSA in soft tissue and bone. He was treated perioperatively with Daptomycin and Zosyn. Pathology - negative for osteomyelitis. He states he was at home and fell on some steps and he noticed some drainage from the stump and that the stump had opened up. He denies any fever. He takes nutritional supplementation with protein to help the healing process. He had a wound culture done on 08/04/17 which showed MRSE, and Burkholderia cepacia. He was started on Doxycycline and Levaquin. However oral antibiotics are not sensitive to both organisms. Progress of Wound: Left BKA with traumatic disruption of stump from falls. - Physical Exam Vital Signs Temp Pulse Resp BP Pulse Ox 98.4 F 88 18 150/83 H 92 08/18/17 12:26 08/18/17 12:26 08/18/17 12:26 08/18/17 12:26 08/17/17 00:08 Wound Measurements and Assessment WC - Nurse 1 - General Ulcer Measurement Start: 08/18/17 12:26 Freq: Status: Active Protocol: Activity Type Activity Date Activity User E-Sign Co-Sign Detail Recorded Client Recorded Date Recorded By Document 08/18/17 12:26 [id number] 08/18/17 12:29 08/18/17 12:26 Wound Center Nurse 1 [Ulcer Assessment] #23 L BKA Dehisced incision -Combined with other wound No -Current Size (cm) - Length 3.0 -Current Size (cm) - Width 9.6 -Current Size (cm) - Depth 3.5 -Total Square Cm 28.80 -Date of Last Picture (Recall this 08/18/17 field) -Photo Taken Yes -Epithelialization Small 1-33% -Tunneling No -Undermining/Tunneling No -Circular Undermining No -Classification - Thickness Full Thickness with Exposed Support Structure -Exudate Amt Large (67-100%) -Exudate Type Serosanguineous -Wound Margin Distinct, Outline Attached -Granulation Amt Medium (34-66%) -Granulation Quality [place] -Slough/Fibrin Yes -Necrosis Amt Medium (34-66%) -Necrotic Tissue Type Adherent Slough -Structure Exposed Fascia Muscle Fat Layer Exposed -Texture (Yael-wound Skin Appearance) Scarring -Moisture (Yael-wound Skin Appearance No Abnormality ) -Color (Yael-wound Skin Appearance) No Abnormality Assessed -Temperature (Yael-wound Skin No Abnormality Appearance) (Pt Warm) -Tenderness on Palpation (Yael-wound No Skin Appearance) -Ulcer Cleansing Rinsed/ Irrigated with Saline -Foul Odor after Cleansing No -Anesthetic Used 4% Lidocaine Solution [Edema Assessment] -Lower Limb Edema Present No WC - Nurse 2 - General Ulcer CM Notes Start: 08/18/17 12:26 Freq: Status: Active Protocol: Activity Type Activity Date Activity User E-Sign Co-Sign Detail Recorded Client Recorded Date Recorded By Document 08/18/17 13:30 [id number] 08/18/17 13:38 08/18/17 13:30 Wound Center Nurse 2 [Procedure/Treatment] #23 L DANTE Dehisced incision -Time 13:30 -Correct Patient Yes -Correct Side, Site, Position Yes -Correct Procedure Yes -Procedure Performed Yes -Type of Procedure Debridement -Clinical Debridement Muscle -Post Debridement Size (cm) - Length 3 -Post Debridement Size (cm) - Width 9.7 -Post Debridement Size (cm) - Depth 3.5 -Total Square Cm 29.1 -Wound/Ulcer Outcome Not Healed -Ulcer Cleansing Rinsed/ Irrigated with Saline -Foul Odor after Cleansing No -Bioengineered Tissue No -Bleeding Controlled with Pressure -Treatment Response Procedure Tolerated Well [See Physician Procedure note for Specifics] Pain Scale: 0-10 Numeric [Pain] -Is Patient Pain Free? Yes Debridement Note Post-Debridement Measurements/Treatment - Nurse 2 - General Ulcer CM Notes Start: 08/18/17 12:26 Freq: Status: Active Protocol: Activity Type Activity Date Activity User E-Sign Co-Sign Detail Recorded Client Recorded Date Recorded By Document 08/18/17 13:30 [id number] [id number] 08/18/17 13:38 08/18/17 13:30 Wound Center Nurse 2 #23 L BKA Dehisced incision -Time 13:30 -Correct Patient Yes -Correct Side, Site, Position Yes -Correct Procedure Yes -Procedure Performed Yes -Type of Procedure Debridement -Clinical Debridement Muscle -Post Debridement Size (cm) - Length 3 -Post Debridement Size (cm) - Width 9.7 -Post Debridement Size (cm) - Depth 3.5 -Total Square Cm 29.1 -Wound/Ulcer Outcome Not Healed -Ulcer Cleansing Rinsed/ Irrigated with Saline -Foul Odor after Cleansing No -Bioengineered Tissue No -Bleeding Controlled with Pressure -Treatment Response Procedure Tolerated Well Pain Scale: 0-10 Numeric Is Patient Pain Free? Yes Wound debrided: #23 Left BKA stump disruption. Laterality: Left Wound Grade/Stage: 3. Type of Debridement: Excisional debridement Anesthesia Used: 4% Lidocaine Solution Depth: Down to and including healthy tissue, in the subcutaneous layer, to muscle, to bone - bone is palpable but not debrided. Percentage of wound debrided: 100 Instrument Used: 7mm curette Tissue Removed: subcutaneous tissue and muscle. Severity: Fat Layer Exposed - muscle is exposed. bone is palpable but not debrided. Amount of bleeding with debridement: Mild Bleeding Controlled with: Pressure Patient tolerated procedure well Assessment/Plan Assessment: 1. Traumatic left BKA stump disruption from falls. 2. Nonhealing infected diabetic ulcer with fasciitis left plantar foot. 3. Nonhealing infected diabetic ulcer with fasciitis left medial foot. 4. Diabetes mellitus. 5. MRSA. 6. Osteomyelitis. 7. Charcot foot neuropathic osteoarthropathy. 8. Former smoker. 9. s/p left below knee amputation. Plan: Continue Silver dressing changes daily. The recent wound culture from 08/04/17 showed MRSE and Burkholderia cepacia and he was started on Doxycycline and Levaquin. Oral antibiotics are not sensitive to both organisms. Recommended admission to the hospital to start IV antibiotics and place a PICC line. Will also start the VAC. He may benefit from HBO treatments due to a compromised flap. Continue nutritional supplementation with protein to help the healing process. Followup after his discharge from the hospital. Eventually when the inflammation subsides and the infection is under control, can proceed with delayed secondary wound closure revision. Also at that time will biopsy the bone as well.
[2017-09-01 12:18] VITALS: BP 142/78; PULSE 100; RESP 16; TEMP 36.2; BMI 37.5
--- NOTE | 2017-09-01 23:59 | PN.PCM_ITS ---
Type of Wound Date of Service: 09/01/17 Chief Complaint: Traumatic disruption left BKA stump from falls. History of Wound: Surgery 06/24/17 - Left below knee amputation. Operative culture - MRSA in soft tissue and bone. He was treated perioperatively with Daptomycin and Zosyn. Pathology - negative for osteomyelitis. He states he was at home and fell on some steps and he noticed some drainage from the stump and that the stump had opened up. He denies any fever. He takes nutritional supplementation with protein to help the healing process. He had a wound culture done on 08/04/17 which showed MRSE, and Burkholderia cepacia. He was started on Doxycycline and Levaquin. However oral antibiotics are not sensitive to both organisms. So he was admitted for IV antibiotics with Vancomycin and Zosyn through a PICC line. Also the VAC was placed. Progress of Wound: Slightly improved. - Physical Exam Vital Signs Temp Pulse Resp BP Pulse Ox 97.1 F L 100 16 142/78 H 92 09/01/17 12:18 09/01/17 12:18 09/01/17 12:18 09/01/17 12:18 08/17/17 00:08 Wound Measurements and Assessment WC - Nurse 1 - General Ulcer Measurement Start: 08/18/17 12:26 Freq: Status: Active Protocol: Activity Type Activity Date Activity User E-Sign Co-Sign Detail Recorded Client Recorded Date Recorded By Document 09/01/17 12:18 [facility] [id number] 09/01/17 12:23 [facility] 09/01/17 12:18 Wound Center Nurse 1 [Ulcer Assessment] #23 L BKA Dehisced incision -Combined with other wound No -Current Size (cm) - Length 2.7 -Current Size (cm) - Width 9.5 -Current Size (cm) - Depth 2.5 -Total Square Cm 25.65 -Photo Taken No -Tunneling No -Undermining/Tunneling No -Circular Undermining No -Exudate Amt Small (1-33%) -Exudate Type Serosanguineous -Wound Margin Distinct, Outline Attached -Granulation Amt Small (1-33%) -Granulation Quality [place] -Slough/Fibrin Yes -Necrosis Amt None Present (0 %) -Necrotic Tissue Type Adherent Slough -Structure Exposed Bone -Texture (Yael-wound Skin Appearance) No Abnormality Assessed Scarring -Moisture (Yael-wound Skin Appearance No Abnormality ) Assessed -Color (Yael-wound Skin Appearance) No Abnormality Assessed -Temperature (Yael-wound Skin No Abnormality Appearance) (Pt Warm) -Tenderness on Palpation (Yael-wound No Skin Appearance) -Ulcer Cleansing Wound Cleanser -Foul Odor after Cleansing No -Anesthetic Used 4% Lidocaine Solution [Edema Assessment] -Lower Limb Edema Present NA WC - Nurse 2 - General Ulcer CM Notes Start: 08/18/17 12:26 Freq: Status: Active Protocol: Activity Type Activity Date Activity User E-Sign Co-Sign Detail Recorded Client Recorded Date Recorded By Document 09/01/17 13:43 [id number] 09/01/17 13:45 09/01/17 13:43 Wound Center Nurse 2 [Procedure/Treatment] #23 L BKA Dehisced incision -Time 13:43 -Correct Patient Yes -Correct Side, Site, Position Yes -Correct Procedure Yes -Procedure Performed Yes -Type of Procedure Debridement -Clinical Debridement Muscle -Post Debridement Size (cm) - Length 2.8 -Post Debridement Size (cm) - Width 9.6 -Post Debridement Size (cm) - Depth 2.5 -Total Square Cm 26.88 -Wound/Ulcer Outcome Not Healed -Ulcer Cleansing Rinsed/ Irrigated with Saline -Foul Odor after Cleansing No -Bioengineered Tissue No -Topical Lidocaine (%) 4 -Bleeding Controlled with Pressure -Treatment Response Procedure Tolerated Well [See Physician Procedure note for Specifics] Pain Scale: 0-10 Numeric [Pain] -Is Patient Pain Free? Yes Debridement Note Post-Debridement Measurements/Treatment - Nurse 2 - General Ulcer CM Notes Start: 08/18/17 12:26 Freq: Status: Active Protocol: Activity Type Activity Date Activity User E-Sign Co-Sign Detail Recorded Client Recorded Date Recorded By Document 08/18/17 13:30 [id number] 08/18/17 13:38 Document 09/01/17 13:43 [id number] 09/01/17 13:45 08/18/17 09/01/17 13:30 13:43 Wound Center Nurse 2 #23 L BKA Dehisced incision -Time 13:30 13:43 -Correct Patient Yes Yes -Correct Side, Site, Position Yes Yes -Correct Procedure Yes Yes -Procedure Performed Yes Yes -Type of Procedure Debridement Debridement -Clinical Debridement Muscle Muscle -Post Debridement Size (cm) - Length 3 2.8 -Post Debridement Size (cm) - Width 9.7 9.6 -Post Debridement Size (cm) - Depth 3.5 2.5 -Total Square Cm 29.1 26.88 -Wound/Ulcer Outcome Not Healed Not Healed -Ulcer Cleansing Rinsed/ Rinsed/ Irrigated with Irrigated with Saline Saline -Foul Odor after Cleansing No No -Bioengineered Tissue No No -Topical Lidocaine (%) 4 -Bleeding Controlled with Pressure Pressure -Treatment Response Procedure Procedure Tolerated Well Tolerated Well Pain Scale: 0-10 Numeric Is Patient Pain Free? Yes Yes Wound debrided: #23 Left BKA stump disruption. Laterality: Left Wound Grade/Stage: 3. Type of Debridement: Excisional debridement Anesthesia Used: 4% Lidocaine Solution Depth: Down to and including healthy tissue, in the subcutaneous layer, to muscle, to bone - bone is palpable but not debrided. Percentage of wound debrided: 100 Instrument Used: 7mm curette Tissue Removed: subcutaneous tissue and muscle. Severity: Fat Layer Exposed - muscle is exposed. bone is palpable but not debrided. Amount of bleeding with debridement: Mild Bleeding Controlled with: Pressure Patient tolerated procedure well Assessment/Plan Assessment: 1. Traumatic left BKA stump disruption from falls. 2. Nonhealing infected diabetic ulcer with fasciitis left plantar foot. 3. Nonhealing infected diabetic ulcer with fasciitis left medial foot. 4. Diabetes mellitus. 5. MRSA. 6. Osteomyelitis. 7. Charcot foot neuropathic osteoarthropathy. 8. Former smoker. 9. s/p left below knee amputation. Plan: Continue the VAC. The recent wound culture from 08/04/17 showed MRSE and Burkholderia cepacia and he was started on Doxycycline and Levaquin. Oral antibiotics are not sensitive to both organisms. He was admitted to the hospital for a PICC line and Vancomycin and Zosyn were started. He may benefit from HBO treatments due to a compromised flap. Continue nutritional supplementation with protein to help the healing process. Followup one week. Eventually when the inflammation subsides and the infection is under control, can proceed with delayed secondary wound closure revision. Also at that time will biopsy the bone as well. Wrote a script for a lightweight transfer wheelchair for doctor appointments and going to the store.
--- NOTE | 2017-09-08 21:58 | PCM.WC.PN ---
Type of Wound Date of Service: 09/08/17 Chief Complaint: Traumatic disruption left BKA stump from falls. History of Wound: Surgery 06/24/17 - Left below knee amputation. Operative culture - MRSA in soft tissue and bone. He was treated perioperatively with Daptomycin and Zosyn. Pathology - negative for osteomyelitis. He states he was at home and fell on some steps and he noticed some drainage from the stump and that the stump had opened up. He denies any fever. He takes nutritional supplementation with protein to help the healing process. He had a wound culture done on 08/04/17 which showed MRSE, and Burkholderia cepacia. He was started on Doxycycline and Levaquin. However oral antibiotics are not sensitive to both organisms. So he was admitted for IV antibiotics with Vancomycin and Zosyn through a PICC line. Also the VAC was placed. Progress of Wound: Improved. - Physical Exam Vital Signs Temp Pulse Resp BP Pulse Ox 97.1 F L 100 16 142/78 H 92 09/01/17 12:18 09/01/17 12:18 09/01/17 12:18 09/01/17 12:18 08/17/17 00:08 Debridement Note Post-Debridement Measurements/Treatment WC - Nurse 2 - General Ulcer CM Notes Start: 08/18/17 12:26 Freq: Status: Active Protocol: Activity Type Activity Date Activity User E-Sign Co-Sign Detail Recorded Client Recorded Date Recorded By Document 08/18/17 13:30 [id number] 08/18/17 13:38 Document 09/01/17 13:43 [id number] 09/01/17 13:45 08/18/17 09/01/17 13:30 13:43 Wound Center Nurse 2 #23 L BKA Dehisced incision -Time 13:30 13:43 -Correct Patient Yes Yes -Correct Side, Site, Position Yes Yes -Correct Procedure Yes Yes -Procedure Performed Yes Yes -Type of Procedure Debridement Debridement -Clinical Debridement Muscle Muscle -Post Debridement Size (cm) - Length 3 2.8 -Post Debridement Size (cm) - Width 9.7 9.6 -Post Debridement Size (cm) - Depth 3.5 2.5 -Total Square Cm 29.1 26.88 -Wound/Ulcer Outcome Not Healed Not Healed -Ulcer Cleansing Rinsed/ Rinsed/ Irrigated with Irrigated with Saline Saline -Foul Odor after Cleansing No No -Bioengineered Tissue No No -Topical Lidocaine (%) 4 -Bleeding Controlled with Pressure Pressure -Treatment Response Procedure Procedure Tolerated Well Tolerated Well Pain Scale: 0-10 Numeric Is Patient Pain Free? Yes Yes Wound debrided: #23 Left BKA stump disruption. Laterality: Left Wound Grade/Stage: 3. Type of Debridement: Excisional debridement Anesthesia Used: 4% Lidocaine Solution Depth: Down to and including healthy tissue, in the subcutaneous layer, to muscle, to bone - bone is palpable but not debrided. Percentage of wound debrided: 100 Instrument Used: 7mm curette Tissue Removed: subcutaneous tissue and muscle. Severity: Fat Layer Exposed - muscle is exposed. bone is palpable but not debrided. Amount of bleeding with debridement: Mild Bleeding Controlled with: Pressure Patient tolerated procedure well Assessment/Plan Assessment: 1. Traumatic left BKA stump disruption from falls. 2. Nonhealing infected diabetic ulcer with fasciitis left plantar foot. 3. Nonhealing infected diabetic ulcer with fasciitis left medial foot. 4. Diabetes mellitus. 5. MRSA. 6. Osteomyelitis. 7. Charcot foot neuropathic osteoarthropathy. 8. Former smoker. 9. s/p left below knee amputation. Plan: Continue the VAC. The recent wound culture from 08/04/17 showed MRSE and Burkholderia cepacia and he was started on Doxycycline and Levaquin. Oral antibiotics are not sensitive to both organisms. He was admitted to the hospital for a PICC line and Vancomycin and Zosyn were started. He may benefit from HBO treatments due to a compromised flap. Continue nutritional supplementation with protein to help the healing process. Followup 2 weeks. Less swelling is noted. Granulation tissue covers the bone. Eventually when the inflammation subsides and the infection is under control, can proceed with delayed secondary wound closure revision. Also at that time will biopsy the bone as well.
== END 2017-09-16 23:59 ==
LOC: WC 12:00
PROVIDERS: Family Provider Family Medicine; PCP Family Medicine; Visit Provider Surgery
DX: T87.81 Dehiscence of amputation stump (principal); E11.621 Type 2 diabetes mellitus with foot ulcer; T87.44 Infection of amputation stump, left lower extremity; M86.9 Osteomyelitis, unspecified; Z86.14 Personal history of Methicillin resistant Staphylococcus aureus infection; Z87.891 Personal history of nicotine dependence; E11.610 Type 2 diabetes mellitus with diabetic neuropathic arthropathy
CPT/HCPCS: 11043; 11046; 85027; 87070; 87075; 87205; 97605

== ENCOUNTER 2017-09-15 12:37 | Outpatient (RCR) | payer MEDICARE, SELFPAY ==
[2017-08-25 12:11] LABS: Erythrocyte Sedimentation Rate 29 mm/hr (0-20)
[2017-08-25 12:19] LABS: Hematocrit 39.6 % (40-54); Hemoglobin 12.6 g/dl (13.0-16.5); Mean Corp Hgb Conc 31.8 g/gl (32-36); Mean Corpuscular Hgb 26.8 pg (27.0-32.0); Mean Corpuscular Volume 84.3 fL (80-94); Mean Platelet Vol. 9.9 fl (6.2-12.0); Platelet Count 293 K/mm3 (150-450); RBC Distribution Width CV 14.9 % (11.6-14.6); RBC Distribution Width SD 44.6 fl (35.1-43.9)
[2017-08-25 12:26] LABS: Anion Gap 11 (5-15); BUN 21 mg/dL (7-18); BUN/Creat Ratio 17.6 RATIO (10-20); Calcium,Total 9.2 mg/dL (8.5-10.1); Chloride 99 mmol/L (98-107); Creatinine, Serum 1.19 mg/dL (0.70-1.30); EST Glomerular Filtration Rate 66 mL/min (>60); Est Glom Filt Rate - Afr Amer 80 mL/min (>60); Glucose 107 mg/dL (74-106); Potassium 4.3 mmol/L (3.5-5.1); Sodium Level 137 mmol/L (136-145)
[2017-08-25 12:27] LABS: Scan Indicated on CBC? Y/N NO
[2017-09-01 13:56] LABS: Anion Gap 10 (5-15); BUN 25 mg/dL (7-18); BUN/Creat Ratio 22.3 RATIO (10-20); Calcium,Total 9.4 mg/dL (8.5-10.1); Chloride 101 mmol/L (98-107); Creatinine, Serum 1.12 mg/dL (0.70-1.30); EST Glomerular Filtration Rate 71 mL/min (>60); Erythrocyte Sedimentation Rate 36 mm/hr (0-20); Est Glom Filt Rate - Afr Amer 86 mL/min (>60); Glucose 154 mg/dL (74-106); Potassium 4.3 mmol/L (3.5-5.1); Sodium Level 139 mmol/L (136-145)
[2017-09-01 13:57] LABS: Hematocrit 39.7 % (40-54); Hemoglobin 12.4 g/dl (13.0-16.5); Mean Corp Hgb Conc 31.2 g/gl (32-36); Mean Corpuscular Hgb 26.3 pg (27.0-32.0); Mean Corpuscular Volume 84.3 fL (80-94); Mean Platelet Vol. 9.6 fl (6.2-12.0); Platelet Count 367 K/mm3 (150-450); RBC Distribution Width CV 14.9 % (11.6-14.6); RBC Distribution Width SD 44.6 fl (35.1-43.9); Red Blood Count 4.71 M/mm3 (4.6-6.2); White Blood Count 8.7 K/mm3 (4.4-11.0)
[2017-09-01 14:01] LABS: Vancomycin, Trough Level 12.1 ug/mL (5.0-15.0)
[2017-09-01 14:10] LABS: Scan Indicated on CBC? Y/N NO
[2017-09-08 14:56] LABS: Anion Gap 6 (5-15); BUN 20 mg/dL (7-18); BUN/Creat Ratio 18.2 RATIO (10-20); Calcium,Total 9.2 mg/dL (8.5-10.1); Chloride 102 mmol/L (98-107); EST Glomerular Filtration Rate 72 mL/min (>60); Est Glom Filt Rate - Afr Amer 87 mL/min (>60); Glucose 155 mg/dL (74-106); Potassium 4.7 mmol/L (3.5-5.1); Sodium Level 137 mmol/L (136-145)
[2017-09-08 14:57] LABS: Vancomycin, Trough Level 11.3 ug/mL (5.0-15.0)
[2017-09-08 14:58] LABS: Erythrocyte Sedimentation Rate 32 mm/hr (0-20)
[2017-09-08 15:00] LABS: Hematocrit 40.1 % (40-54); Hemoglobin 12.3 g/dl (13.0-16.5); Mean Corp Hgb Conc 30.7 g/gl (32-36); Mean Corpuscular Hgb 26.1 pg (27.0-32.0); Mean Platelet Vol. 9.5 fl (6.2-12.0); Platelet Count 351 K/mm3 (150-450); RBC Distribution Width CV 14.9 % (11.6-14.6); RBC Distribution Width SD 46.6 fl (35.1-43.9); Red Blood Count 4.72 M/mm3 (4.6-6.2); White Blood Count 6.8 K/mm3 (4.4-11.0)
[2017-09-08 15:04] LABS: Scan Indicated on CBC? Y/N NO
[2017-09-15 13:18] LABS: Hemoglobin 12.5 g/dl (13.0-16.5); Mean Corp Hgb Conc 30.5 g/gl (32-36); Mean Corpuscular Volume 85.4 fL (80-94); Mean Platelet Vol. 9.2 fl (6.2-12.0); Platelet Count 325 K/mm3 (150-450); RBC Distribution Width CV 14.9 % (11.6-14.6); RBC Distribution Width SD 46.2 fl (35.1-43.9)
[2017-09-15 13:19] LABS: Scan Indicated on CBC? Y/N NO
[2017-09-15 13:25] LABS: Anion Gap 6 (5-15); BUN 18 mg/dL (7-18); BUN/Creat Ratio 16.7 RATIO (10-20); Calcium,Total 9.6 mg/dL (8.5-10.1); Chloride 103 mmol/L (98-107); Creatinine, Serum 1.08 mg/dL (0.70-1.30); EST Glomerular Filtration Rate 74 mL/min (>60); Est Glom Filt Rate - Afr Amer 89 mL/min (>60); Glucose 174 mg/dL (74-106); Potassium 4.2 mmol/L (3.5-5.1); Sodium Level 139 mmol/L (136-145)
[2017-09-15 13:27] LABS: Vancomycin, Trough Level 15.7 ug/mL (5.0-15.0)
== END 2017-09-16 23:59 ==
LOC: HHLAB 12:37
PROVIDERS: Surgery; Family Provider Family Medicine; PCP Family Medicine; Visit Provider Internal Medicine Infectious Disease
DX: T87.44 Infection of amputation stump, left lower extremity (principal); T87.81 Dehiscence of amputation stump; M86.9 Osteomyelitis, unspecified; Z86.14 Personal history of Methicillin resistant Staphylococcus aureus infection
CPT/HCPCS: 80048; 80202; 85027; 85652

== ENCOUNTER 2017-09-22 11:13 | Outpatient (RCR) | payer MEDICARE, SELFPAY ==
[2017-09-22 11:44] LABS: Erythrocyte Sedimentation Rate 36 mm/hr (0-20)
[2017-09-22 11:45] LABS: Absolute Lymphocyte Count 1.47 X10^3/ul (0.83-4.51); Absolute Neutrophil Count 4.4 X10^3/uL (2.0-7.7); Basophil# 0.03 X10^3/uL; Basophil% 0.5 % (0-1); Eosinophil# 0.29 X10^3/uL; Eosinophils% 4.4 % (0-5); Hematocrit 40.8 % (40-54); Hemoglobin 13.1 g/dl (13.0-16.5); Lymphocyte # 1.47 X10^3/ul (4.0); Lymphocyte % 22.1 % (19-41); Mean Corp Hgb Conc 32.1 g/gl (32-36); Mean Corpuscular Hgb 26.9 pg (27.0-32.0); Mean Corpuscular Volume 83.8 fL (80-94); Mean Platelet Vol. 9.6 fl (6.2-12.0); Monocyte% 7.5 % (0-10); Neutrophil # 4.35 X10^3/uL (2.7-7.7); Neutrophil % 65.3 % (47-70); Platelet Count 307 K/mm3 (150-450); RBC Distribution Width CV 15.1 % (11.6-14.6); RBC Distribution Width SD 45.3 fl (35.1-43.9); Red Blood Count 4.87 M/mm3 (4.6-6.2); White Blood Count 6.7 K/mm3 (4.4-11.0)
[2017-09-22 11:46] LABS: POSITIVE COUNT NO; POSITIVE DIFFERENTIAL NO; POSITIVE MORPHOLOGY NO
[2017-09-22 11:48] LABS: Anion Gap 11 (5-15); BUN 19 mg/dL (7-18); BUN/Creat Ratio 16.5 RATIO (10-20); Calcium,Total 9.6 mg/dL (8.5-10.1); Chloride 101 mmol/L (98-107); Creatinine, Serum 1.15 mg/dL (0.70-1.30); EST Glomerular Filtration Rate 69 mL/min (>60); Est Glom Filt Rate - Afr Amer 83 mL/min (>60); Glucose 168 mg/dL (74-106); Sodium Level 142 mmol/L (136-145)
[2017-09-22 11:49] LABS: Vancomycin, Trough Level 16.8 ug/mL (5.0-15.0)
== END 2017-10-17 23:59 ==
LOC: HHLAB 11:13
PROVIDERS: Hospitalist; Family Provider Family Medicine; PCP Family Medicine; Visit Provider Internal Medicine Infectious Disease
DX: T87.44 Infection of amputation stump, left lower extremity (principal); T87.81 Dehiscence of amputation stump; B96.89 Other specified bacterial agents as the cause of diseases classified elsewhere; E11.69 Type 2 diabetes mellitus with other specified complication; M86.9 Osteomyelitis, unspecified; I10 Essential (primary) hypertension; E78.5 Hyperlipidemia, unspecified; G47.33 Obstructive sleep apnea (adult) (pediatric); E11.42 Type 2 diabetes mellitus with diabetic polyneuropathy
CPT/HCPCS: 80048; 80202; 85025; 85652

== ENCOUNTER 2017-09-29 14:49 | Outpatient (RCR) | payer MEDICARE, SELFPAY ==
[2017-09-29 15:14] LABS: Hematocrit 41.3 % (40-54); Hemoglobin 12.9 g/dl (13.0-16.5); Mean Corp Hgb Conc 31.2 g/gl (32-36); Mean Corpuscular Hgb 26.5 pg (27.0-32.0); Mean Platelet Vol. 9.8 fl (6.2-12.0); Platelet Count 343 K/mm3 (150-450); RBC Distribution Width CV 15.1 % (11.6-14.6); RBC Distribution Width SD 46.5 fl (35.1-43.9); Red Blood Count 4.86 M/mm3 (4.6-6.2); White Blood Count 5.8 K/mm3 (4.4-11.0)
[2017-09-29 15:15] LABS: Scan Indicated on CBC? Y/N NO
[2017-09-29 15:24] LABS: Vancomycin, Trough Level 14.4 ug/mL (5.0-15.0)
[2017-09-29 15:46] LABS: Anion Gap 7 (5-15); BUN 17 mg/dL (7-18); BUN/Creat Ratio 15.3 RATIO (10-20); Calcium,Total 9.4 mg/dL (8.5-10.1); Chloride 104 mmol/L (98-107); Creatinine, Serum 1.11 mg/dL (0.70-1.30); EST Glomerular Filtration Rate 72 mL/min (>60); Est Glom Filt Rate - Afr Amer 87 mL/min (>60); Glucose 94 mg/dL (74-106); Potassium 3.8 mmol/L (3.5-5.1); Sodium Level 139 mmol/L (136-145)
[2017-09-29 15:51] LABS: Erythrocyte Sedimentation Rate 33 mm/hr (0-20)
== END 2017-10-17 23:59 ==
LOC: HHLAB 14:49
PROVIDERS: Family Provider Family Medicine; PCP Family Medicine; Visit Provider Internal Medicine Infectious Disease
DX: T87.81 Dehiscence of amputation stump (principal); T87.44 Infection of amputation stump, left lower extremity; B69.89 Cysticercosis of other sites; B95.7 Other staphylococcus as the cause of diseases classified elsewhere; E11.69 Type 2 diabetes mellitus with other specified complication
CPT/HCPCS: 80048; 80202; 85027; 85652

== ENCOUNTER 2017-10-06 11:30 | Outpatient (RCR) | payer MEDICARE, SELFPAY ==
[2017-09-17 00:17] VITALS: BP 142/78; PULSE 100; RESP 16; TEMP 36.2; O2SAT 92; BMI 37.5
[2017-09-22 12:33] VITALS: BP 154/87; PULSE 85; RESP 18; TEMP 36.2; BMI 37.5
--- NOTE | 2017-09-22 17:07 | PCM.WC.PN ---
Type of Wound Date of Service: 09/22/17 Chief Complaint: Traumatic disruption left BKA stump from falls. History of Wound: Surgery 06/24/17 - Left below knee amputation. Operative culture - MRSA in soft tissue and bone. He was treated perioperatively with Daptomycin and Zosyn. Pathology - negative for osteomyelitis. He states he was at home and fell on some steps and he noticed some drainage from the stump and that the stump had opened up. He denies any fever. He takes nutritional supplementation with protein to help the healing process. He had a wound culture done on 08/04/17 which showed MRSE, and Burkholderia cepacia. He was started on Doxycycline and Levaquin. However oral antibiotics are not sensitive to both organisms. So he was admitted for IV antibiotics with Vancomycin and Zosyn through a PICC line. Also the VAC was placed. He will be done with his antibiotics on 09/29/17. Encourage nutritional supplementation with protein to help the healing process. Today he denies fever. He has a good appetite. Progress of Wound: Improved. - Physical Exam Vital Signs Temp Pulse Resp BP Pulse Ox 97.1 F L 85 18 154/87 H 92 09/22/17 12:33 09/22/17 12:33 09/22/17 12:33 09/22/17 12:33 09/17/17 00:17 Wound Measurements and Assessment WC - Nurse 1 - General Ulcer Measurement Start: 09/22/17 12:33 Freq: Status: Active Protocol: Activity Type Activity Date Activity User E-Sign Co-Sign Detail Recorded Client Recorded Date Recorded By Document 09/22/17 12:33 [id number] 09/22/17 12:40 09/22/17 12:33 Wound Center Nurse 1 [Ulcer Assessment] #23 L BKA Dehisced incision -Current Size (cm) - Length 2.8 -Current Size (cm) - Width 5.9 -Current Size (cm) - Depth 1.6 -Total Square Cm 16.52 -Photo Taken No -Exudate Amt Medium (34-66%) -Exudate Type Serosanguineous -Wound Margin Distinct, Outline Attached -Granulation Amt Large (67-100%) -Granulation Quality [place] Red -Necrosis Amt Small (1-33%) -Necrotic Tissue Type Adherent Slough -Structure Exposed N/A -Texture (Yael-wound Skin Appearance) Scarring -Moisture (Yael-wound Skin Appearance No Abnormality ) -Color (Yael-wound Skin Appearance) No Abnormality -Temperature (Yael-wound Skin No Abnormality Appearance) (Pt Warm) -Ulcer Cleansing Wound Cleanser -Foul Odor after Cleansing No -Anesthetic Used 4% Lidocaine Solution - Nurse 2 - General Ulcer CM Notes Start: 09/22/17 12:33 Freq: Status: Active Protocol: Activity Type Activity Date Activity User E-Sign Co-Sign Detail Recorded Client Recorded Date Recorded By Document 09/22/17 13:31 [id number] 09/22/17 13:32 09/22/17 13:31 Wound Center Nurse 2 [Procedure/Treatment] -Time 13:31 -Correct Patient Yes -Correct Side, Site, Position Yes -Correct Procedure Yes -Procedure Performed Yes -Type of Procedure Debridement -Clinical Debridement Muscle -Post Debridement Size (cm) - Length 2.8 -Post Debridement Size (cm) - Width 6 -Post Debridement Size (cm) - Depth 1.6 -Total Square Cm 16.8 -Wound/Ulcer Outcome Not Healed -Ulcer Cleansing Rinsed/ Irrigated with Saline -Foul Odor after Cleansing No -Bioengineered Tissue No -Bleeding Controlled with Pressure -Treatment Response Procedure Tolerated Well [See Physician Procedure note for Specifics] Pain Scale: 0-10 Numeric [Pain] -Is Patient Pain Free? Yes Debridement Note Post-Debridement Measurements/Treatment - Nurse 2 - General Ulcer CM Notes Start: 09/22/17 12:33 Freq: Status: Active Protocol: Activity Type Activity Date Activity User E-Sign Co-Sign Detail Recorded Client Recorded Date Recorded By Document 09/22/17 13:31 [id number] 09/22/17 13:32 09/22/17 13:31 Wound Center Nurse 2 #23 L BKA Dehisced incision -Time 13:31 -Correct Patient Yes -Correct Side, Site, Position Yes -Correct Procedure Yes -Procedure Performed Yes -Type of Procedure Debridement -Clinical Debridement Muscle -Post Debridement Size (cm) - Length 2.8 -Post Debridement Size (cm) - Width 6 -Post Debridement Size (cm) - Depth 1.6 -Total Square Cm 16.8 -Wound/Ulcer Outcome Not Healed -Ulcer Cleansing Rinsed/ Irrigated with Saline -Foul Odor after Cleansing No -Bioengineered Tissue No -Bleeding Controlled with Pressure -Treatment Response Procedure Tolerated Well Pain Scale: 0-10 Numeric Is Patient Pain Free? Yes Wound debrided: #23 Left BKA stump disruption. Laterality: Left Wound Grade/Stage: 3. Type of Debridement: Excisional debridement Anesthesia Used: 4% Lidocaine Solution Depth: Down to and including healthy tissue, in the subcutaneous layer, to muscle, to bone - covered with granulation tissue. Percentage of wound debrided: 100 Instrument Used: 5mm curette Tissue Removed: subcutaneous tissue and muslce. Severity: Fat Layer Exposed - muscle is exposed. bone is palpable and covered with granulation tissue. Amount of bleeding with debridement: Mild Bleeding Controlled with: Pressure Patient tolerated procedure well Assessment/Plan Assessment: 1. Traumatic left BKA stump disruption from falls. 2. Nonhealing infected diabetic ulcer with fasciitis left plantar foot. 3. Nonhealing infected diabetic ulcer with fasciitis left medial foot. 4. Diabetes mellitus. 5. MRSA. 6. Osteomyelitis. 7. Charcot foot neuropathic osteoarthropathy. 8. Former smoker. 9. s/p left below knee amputation. Plan: Continue the VAC. The recent wound culture from 08/04/17 showed MRSE and Burkholderia cepacia and he was started on Doxycycline and Levaquin. Oral antibiotics are not sensitive to both organisms. He was admitted to the hospital for a PICC line and Vancomycin and Zosyn were started. He will be done with his antibiotics on 09/29/17. Will remove the PICC line after that. He may benefit from HBO treatments due to a compromised flap. Continue nutritional supplementation with protein to help the healing process. Less swelling is noted. Granulation tissue covers the bone. Eventually when the inflammation subsides and the infection is under control, can proceed with delayed secondary wound closure revision. Also at that time will biopsy the bone as well. Tentatively may revise the amputation stump witih secondary wound closure with readvancement of the stump flap. Followup 2 weeks.
[2017-10-06 11:49] VITALS: BP 158/73; PULSE 95; RESP 16; TEMP 36.6; BMI 37.5
--- NOTE | 2017-10-06 22:29 | PCM.WC.PN ---
Type of Wound Date of Service: 10/06/17 Chief Complaint: Traumatic disruption left BKA stump from falls. History of Wound: Surgery 06/24/17 - Left below knee amputation. Operative culture - MRSA in soft tissue and bone. He was treated perioperatively with Daptomycin and Zosyn. Pathology - negative for osteomyelitis. He states he was at home and fell on some steps and he noticed some drainage from the stump and that the stump had opened up. He denies any fever. He takes nutritional supplementation with protein to help the healing process. He had a wound culture done on 08/04/17 which showed MRSE, and Burkholderia cepacia. He was started on Doxycycline and Levaquin. However oral antibiotics are not sensitive to both organisms. So he was admitted for IV antibiotics with Vancomycin and Zosyn through a PICC line. Also the VAC was placed. He has finished his antibiotics on 09/29/17. Encourage nutritional supplementation with protein to help the healing process. Today he denies fever. He has a good appetite. Progress of Wound: Improved. - Physical Exam Vital Signs Temp Pulse Resp BP Pulse Ox 97.8 F 95 16 158/73 H 92 10/06/17 11:49 10/06/17 11:49 10/06/17 11:49 10/06/17 11:49 09/17/17 00:17 Wound Measurements and Assessment WC - Nurse 1 - General Ulcer Measurement Start: 09/22/17 12:33 Freq: Status: Active Protocol: Activity Type Activity Date Activity User E-Sign Co-Sign Detail Recorded Client Recorded Date Recorded By Document 10/06/17 11:49 [id number] 10/06/17 11:51 10/06/17 11:49 Wound Center Nurse 1 [Ulcer Assessment] #23 L BKA Dehisced incision -Combined with other wound No -Current Size (cm) - Length 2.7 -Current Size (cm) - Width 6.9 -Current Size (cm) - Depth 2.2 -Total Square Cm 18.63 -Photo Taken No -Tunneling No -Undermining/Tunneling No -Circular Undermining No -Exudate Amt Large (67-100%) -Exudate Type Serosanguineous -Wound Margin Distinct, Outline Attached -Granulation Amt Small (1-33%) -Granulation Quality Red -Slough/Fibrin Yes -Necrosis Amt None Present (0 %) -Necrotic Tissue Type Adherent Slough -Structure Exposed Fat Layer Exposed -Texture (Yael-wound Skin Appearance) Assessed Scarring -Moisture (Yael-wound Skin Appearance No Abnormality ) Assessed -Color (Yael-wound Skin Appearance) No Abnormality Assessed -Temperature (Yael-wound Skin No Abnormality Appearance) (Pt Warm) -Tenderness on Palpation (Yael-wound No Skin Appearance) -Ulcer Cleansing Wound Cleanser -Foul Odor after Cleansing No -Anesthetic Used 5% Lidocaine Gel [Edema Assessment] -Lower Limb Edema Present NA - Nurse 2 - General Ulcer CM Notes Start: 09/22/17 12:33 Freq: Status: Active Protocol: Activity Type Activity Date Activity User E-Sign Co-Sign Detail Recorded Client Recorded Date Recorded By Document 10/06/17 12:24 [id number] 10/06/17 12:26 10/06/17 12:24 Wound Center Nurse 2 [Procedure/Treatment] #23 L BKA Dehisced incision -Time 12:25 -Correct Patient Yes -Correct Side, Site, Position Yes -Correct Procedure Yes -Procedure Performed Yes -Type of Procedure Debridement -Clinical Debridement Muscle -Post Debridement Size (cm) - Length 2.8 -Post Debridement Size (cm) - Width 7 -Post Debridement Size (cm) - Depth 2.2 -Total Square Cm 19.6 -Wound/Ulcer Outcome Not Healed -Ulcer Cleansing Rinsed/ Irrigated with Saline -Foul Odor after Cleansing No -Bioengineered Tissue No -Bleeding Controlled with Pressure -Treatment Response Procedure Tolerated Well [See Physician Procedure note for Specifics] Pain Scale: 0-10 Numeric [Pain] -Is Patient Pain Free? Yes Debridement Note Post-Debridement Measurements/Treatment - Nurse 2 - General Ulcer CM Notes Start: 09/22/17 12:33 Freq: Status: Active Protocol: Activity Type Activity Date Activity User E-Sign Co-Sign Detail Recorded Client Recorded Date Recorded By Document 09/22/17 13:31 [id number] 09/22/17 13:32 Document 10/06/17 12:24 [id number] 10/06/17 12:26 09/22/17 10/06/17 13:31 12:24 Wound Center Nurse 2 #23 L BKA Dehisced incision -Time 13:31 12:25 -Correct Patient Yes Yes -Correct Side, Site, Position Yes Yes -Correct Procedure Yes Yes -Procedure Performed Yes Yes -Type of Procedure Debridement Debridement -Clinical Debridement Muscle Muscle -Post Debridement Size (cm) - Length 2.8 2.8 -Post Debridement Size (cm) - Width 6 7 -Post Debridement Size (cm) - Depth 1.6 2.2 -Total Square Cm 16.8 19.6 -Wound/Ulcer Outcome Not Healed Not Healed -Ulcer Cleansing Rinsed/ Rinsed/ Irrigated with Irrigated with Saline Saline -Foul Odor after Cleansing No No -Bioengineered Tissue No No -Bleeding Controlled with Pressure Pressure -Treatment Response Procedure Procedure Tolerated Well Tolerated Well Pain Scale: 0-10 Numeric Is Patient Pain Free? Yes Yes Wound debrided: #23 Left BKA stump disruption. Laterality: Left Wound Grade/Stage: 3. Type of Debridement: Excisional debridement Anesthesia Used: 4% Lidocaine Solution Depth: Down to and including healthy tissue, in the subcutaneous layer, to muscle, to bone - bone is palpable and covered with granulation tissue. Percentage of wound debrided: 100 Instrument Used: 5mm curette Tissue Removed: subcutaneous tissue and muscle. Severity: Fat Layer Exposed - muscle is exposed. bone is palpable and covered with granulation tissue. Amount of bleeding with debridement: Mild Bleeding Controlled with: Pressure Patient tolerated procedure well Assessment/Plan Assessment: 1. Traumatic left BKA stump disruption from falls. 2. Nonhealing infected diabetic ulcer with fasciitis left plantar foot. 3. Nonhealing infected diabetic ulcer with fasciitis left medial foot. 4. Diabetes mellitus. 5. MRSA. 6. Osteomyelitis. 7. Charcot foot neuropathic osteoarthropathy. 8. Former smoker. 9. s/p left below knee amputation. Plan: Continue the VAC. The recent wound culture from 08/04/17 showed MRSE and Burkholderia cepacia and he was started on Doxycycline and Levaquin. Oral antibiotics are not sensitive to both organisms. He was admitted to the hospital for a PICC line and Vancomycin and Zosyn were started. He finished his antibiotics on 09/29/17. The PICC line was pulled. He may benefit from HBO treatments due to a compromised flap. Continue nutritional supplementation with protein to help the healing process. Less swelling is noted. Granulation tissue covers the bone. The surrounding tissue is softer. Will schedule further operative debridement and revision of the amputation stump with secondary wound closure with readvancement of the stump flap. Will rebiopsy the bone. Discussed with the patient, that wound closure will occur only if I think I can do it without too much tension. If I think there is too much tension, then I will stop at the debridement and continue wound care. At that point, would wait longer until more swelling has resolved before going back to surgery for wound closure. Will tentatively schedule the amputation stump revision in the next week or two. Patient was informed of the risks and complications of the procedure including alternatives to surgery. These were discussed with him personally. He voices understanding and wishes to proceed. Followup 3 weeks.
== END 2017-10-17 23:59 ==
LOC: WC 11:30
PROVIDERS: Family Provider Family Medicine; PCP Family Medicine; Visit Provider Surgery
DX: T87.81 Dehiscence of amputation stump (principal); Y83.8 Other surgical procedures as the cause of abnormal reaction of the patient, or of later complication, without mention of misadventure at the time of the procedure; Z86.14 Personal history of Methicillin resistant Staphylococcus aureus infection; E11.610 Type 2 diabetes mellitus with diabetic neuropathic arthropathy; Z87.891 Personal history of nicotine dependence
CPT/HCPCS: 11043; 80048; 80202; 85025; 85652; 97605

== ENCOUNTER 2017-10-27 10:56 | Outpatient (RCR) | payer MEDICARE, SELFPAY ==
[2017-10-18 00:29] VITALS: BP 158/73; PULSE 95; RESP 16; TEMP 36.6; O2SAT 92; BMI 37.5
[2017-10-27 11:10] VITALS: BP 119/63; PULSE 68; RESP 20; TEMP 36.6; BMI 37.5
--- NOTE | 2017-10-27 21:31 | PCM.WC.PN ---
Type of Wound Date of Service: 10/27/17 Chief Complaint: Traumatic disruption left BKA stump from falls. History of Wound: Surgery 06/24/17 - Left below knee amputation. Operative culture - MRSA in soft tissue and bone. He was treated perioperatively with Daptomycin and Zosyn. Pathology - negative for osteomyelitis. He states he was at home and fell on some steps and he noticed some drainage from the stump and that the stump had opened up. He denies any fever. He takes nutritional supplementation with protein to help the healing process. He had a wound culture done on 08/04/17 which showed MRSE, and Burkholderia cepacia. He was started on Doxycycline and Levaquin. However oral antibiotics are not sensitive to both organisms. So he was admitted for IV antibiotics with Vancomycin and Zosyn through a PICC line. Also the VAC was placed. He has finished his antibiotics on 09/29/17. The PICC line was pulled. Encourage nutritional supplementation with protein to help the healing process. Today he denies fever. He has a good appetite. He is scheduled for operative debridement and amputation stump closure tomorrow 10/28/17. Progress of Wound: Improved. - Physical Exam Vital Signs Temp Pulse Resp BP Pulse Ox 97.8 F 68 20 H 119/63 92 10/27/17 11:10 10/27/17 11:10 10/27/17 11:10 10/27/17 11:10 10/18/17 00:29 Wound Measurements and Assessment WC - Nurse 1 - General Ulcer Measurement Start: 10/27/17 11:10 Freq: Status: Active Protocol: Activity Type Activity Date Activity User E-Sign Co-Sign Detail Recorded Client Recorded Date Recorded By Document 10/27/17 11:10 DL [id number] 10/27/17 11:20 DL 10/27/17 11:10 Wound Center Nurse 1 [Ulcer Assessment] #23 L BKA Dehisced incision -Current Size (cm) - Length 2 -Current Size (cm) - Width 5 -Current Size (cm) - Depth 1.5 -Total Square Cm 10 -Photo Taken No -Exudate Amt Medium (34-66%) -Exudate Type Serosanguineous -Wound Margin Distinct, Outline Attached -Granulation Amt Large (67-100%) -Granulation Quality [place] -Necrosis Amt Small (1-33%) -Necrotic Tissue Type Adherent Slough -Structure Exposed N/A -Texture (Yael-wound Skin Appearance) Scarring -Moisture (Yael-wound Skin Appearance Maceration ) -Color (Yael-wound Skin Appearance) Rubor -Temperature (Yael-wound Skin No Abnormality Appearance) (Pt Warm) -Ulcer Cleansing Wound Cleanser -Foul Odor after Cleansing No -Anesthetic Used 4% Lidocaine Solution - Nurse 2 - General Ulcer Notes Start: 10/27/17 11:10 Freq: Status: Active Protocol: Activity Type Activity Date Activity User E-Sign Co-Sign Detail Recorded Client Recorded Date Recorded By Document 10/27/17 12:00 [id number] [id number] 10/27/17 12:01 10/27/17 12:00 Wound Center Nurse 2 [Procedure/Treatment] -Time 12:01 -Correct Patient Yes -Correct Side, Site, Position Yes -Correct Procedure Yes -Procedure Performed Yes -Type of Procedure Debridement -Clinical Debridement Muscle -Post Debridement Size (cm) - Length 2 -Post Debridement Size (cm) - Width 5 -Post Debridement Size (cm) - Depth 1.5 -Total Square Cm 10 -Wound/Ulcer Outcome Not Healed -Ulcer Cleansing Rinsed/ Irrigated with Saline -Foul Odor after Cleansing No -Bioengineered Tissue No -Bleeding Controlled with Pressure -Treatment Response Procedure Tolerated Well [See Physician Procedure note for Specifics] Pain Scale: 0-10 Numeric [Pain] -Is Patient Pain Free? Yes Debridement Note Post-Debridement Measurements/Treatment - Nurse 2 - General Ulcer CM Notes Start: 10/27/17 11:10 Freq: Status: Active Protocol: Activity Type Activity Date Activity User E-Sign Co-Sign Detail Recorded Client Recorded Date Recorded By Document 10/27/17 12:00 JF [id number] 10/27/17 12:01 10/27/17 12:00 Wound Center Nurse 2 #23 L BKA Dehisced incision -Time 12:01 -Correct Patient Yes -Correct Side, Site, Position Yes -Correct Procedure Yes -Procedure Performed Yes -Type of Procedure Debridement -Clinical Debridement Muscle -Post Debridement Size (cm) - Length 2 -Post Debridement Size (cm) - Width 5 -Post Debridement Size (cm) - Depth 1.5 -Total Square Cm 10 -Wound/Ulcer Outcome Not Healed -Ulcer Cleansing Rinsed/ Irrigated with Saline -Foul Odor after Cleansing No -Bioengineered Tissue No -Bleeding Controlled with Pressure -Treatment Response Procedure Tolerated Well Pain Scale: 0-10 Numeric Is Patient Pain Free? Yes Wound debrided: #23 Left BKA stump disruption. Laterality: Left Wound Grade/Stage: 3. Type of Debridement: Excisional debridement Anesthesia Used: 4% Lidocaine Solution Depth: Down to and including healthy tissue, in the subcutaneous layer, to muscle, to bone - bone is palpable but not debrided. Percentage of wound debrided: 100 Instrument Used: 7mm curette Tissue Removed: subcutaneous tissue and muscle. Severity: Fat Layer Exposed - muscle is exposed. bone is palpable but not debrided. Amount of bleeding with debridement: Mild Bleeding Controlled with: Pressure Patient tolerated procedure well Assessment/Plan Active Problems (Last Reviewed 09/01/17 @ 13:36 by Shanique Martinez) PAOD (peripheral arterial occlusive disease) (Chronic) Assessment: 1. Traumatic left BKA stump disruption from falls. 2. Nonhealing infected diabetic ulcer with fasciitis left plantar foot. 3. Nonhealing infected diabetic ulcer with fasciitis left medial foot. 4. Diabetes mellitus. 5. MRSA. 6. Osteomyelitis. 7. Charcot foot neuropathic osteoarthropathy. 8. Former smoker. 9. s/p left below knee amputation. Plan: Will hold the VAC. He is having surgery tomorrow. The ulcer was redressed with Silver dressing today. The recent wound culture from 08/04/17 showed MRSE and Burkholderia cepacia and he was started on Doxycycline and Levaquin. Oral antibiotics are not sensitive to both organisms. He was admitted to the hospital for a PICC line and Vancomycin and Zosyn were started. He finished his antibiotics on 09/29/17. The PICC line was pulled. He may benefit from HBO treatments due to a compromised flap. He declined the HBO and wants to proceed with the surgery. May consider HBO after the surgery if there is any compromise to the healing flap. Continue nutritional supplementation with protein to help the healing process. Less swelling is noted. Granulation tissue covers the bone. The surrounding tissue is softer. We scheduled further operative debridement and revision of the amputation stump with secondary wound closure with readvancement of the stump flap for tomorrow 10/28/17. Will rebiopsy the bone. Discussed with the patient, that wound closure will occur only if I think I can do it without too much tension. If I think there is too much tension, then I will stop at the debridement and continue wound care. At that point, would wait longer until more swelling has resolved before going back to surgery for wound closure. Patient was informed of the risks and complications of the procedure including alternatives to surgery. These were discussed with him personally. He voices understanding and wishes to proceed. Followup one week.
== END 2017-11-16 23:59 ==
LOC: WC 10:56
PROVIDERS: Family Provider Family Medicine; PCP Family Medicine; Visit Provider Surgery
DX: T87.81 Dehiscence of amputation stump (principal); Y83.8 Other surgical procedures as the cause of abnormal reaction of the patient, or of later complication, without mention of misadventure at the time of the procedure; Z86.14 Personal history of Methicillin resistant Staphylococcus aureus infection; E11.610 Type 2 diabetes mellitus with diabetic neuropathic arthropathy; Z87.891 Personal history of nicotine dependence
CPT/HCPCS: 11043

== ENCOUNTER 2017-10-28 08:59 | Inpatient (IN) | payer MEDICARE, SELFPAY ==
[2017-10-13 13:40] VITALS: BP 135/82; PULSE 78; RESP 18; TEMP 36.1; O2SAT 95; BMI 34.9
--- NOTE | 2017-10-27 21:53 | PCM.HP.BLA ---
History and Physical Date of Admission: 10/28/17 HISTORY OF PRESENT ILLNESS 62 year old man presents with a traumatic disruption left BKA stump. He underwent the left BKA on 06/24/17 because of long standing infections with MRSA along with osteomyelitis and Charcot arthropathy. While he was recovering from the left BKA, he fell on his stump and it broke open. He has been treating the disruption with the VAC. Wound culture from 08/04/17 showed Burkholderia cepacia and MRSE. He was treated with IV Vancomycin and Zosyn for 6 weeks. The wound has stabilized with decreased swelling. He presents today for further operative debridement and partial ostectomy for osteomyelitis and secondary wound closure revision and possible readvancement of the muscle flap. Patient is aware that if the decreased swelling is not enough and any attempts at wound closure at this time would place the flap under too much tension, than I would hold off on trying to close the stump at this time and just proceed with the operative debridement and wait several more weeks before deciding on another attempt at stump wound closure. He is aware of that possibility and voices understanding. PAST MEDICAL HISTORY Diabetes mellitus with neuropathy. Hypertension. Venous insufficiency. PETRA. Obesity. Hyperlipidemia. Charcot neuropathic osteoarthropathy. Rocker bottom left foot. Amputation status right foot. Anemia. Chronic pain syndrome. Depression. LVH. PVD. Vitamin D deficiency. Former smoker. MRSA. PAST SURGICAL HISTORY Right hallux amputation at MTP joint - 12/29/14. Excisional debridement including fascia left great toe - 04/03/15. Partial 4th toe amputation right foot at PIP joint - 12/09/15. Bone biopsy calcaneal cuboid bone left foot and excisional debridement left plantar foot ulceration - 10/18/16. Right foot trans metatarsal amputation - 03/04/16. Debridement left foot ulcer with versajet including necrotic muscle and widespread debridement plantar foot and incision and drainage left foot - 01/24/17. Surgical preparation left plantar foot with incision and drainage and excisional debridement nonhealing infected diabetic ulcer with fasciitis (30 cm2) and surgical preparation left medial foot with incision and drainage and excisional debridement nonhealing infected diabetic ulcer with fasciitis (24 cm2) - 03/25/17. surgical preparation left plantar foot with incision and drainage and excisional debridement nonhealing MRSA diabetic ulcer (42 cm2) and partial ostectomy cuboid bone for osteomyelitis - 05/30/17. Left below knee amputation - 06/24/17 MEDICATIONS Wellbutrin. Celexa. Neurontin. Glimepiride. Glucerna Shake. Novolog Flexpen. Levemir. Cozaar. Glucophage. MS Contin. Naprosyn. Simvastatin. Triamterene-HCTZ. He just finished Vancomycin and Zosyn. ALLERGIES cefepime - Hives. lisinopril - cough. sulfa - turned red. Penicillins - unknown. FAMILY HISTORY Maternal - Cancer, Heart Disease. Paternal - Heart Disease. SOCIAL HISTORY Lives: Spouse/ Significant Other Smoking Status: Former smoker Tobacco Use: Non-smoker Alcohol: None Drugs: None REVIEW OF SYSTEMS Constitutional: Reports: Malaise. Denies: Fever, Fatigue Eyes: Denies: Cataracts HEENT: Denies: Nasal Congestion, Sore Throat Cardiovascular: Denies: Chest Pain Respiratory: Denies: Cough, Shortness of Breath Gastrointestinal: Denies: Constipation, Diarrhea, Nausea, Vomiting Genitourinary: Denies: Frequency, Hematuria Musculoskeletal: Reports: Foot Pain. Denies: Back Pain, Hand Pain, Neck Pain Skin: Reports: Wounds - nonhealing ulcer left plantar foot. Neurological: Denies: Headaches Psychiatric: Reports: Depression. Denies: Anxiety Endocrine: Reports: - - has diabetes mellitus. Denies: Polydipsia, Polyuria Hematologic/ Lymphatic: Reports: Anemia. Denies: Easy Bruising, Hx of blood clot PHYSICAL EXAMINATION General: Alert, Oriented x3 HEENT: Atraumatic, PERRLA Neck: Supple Lungs: Clear to auscultation Cardiovascular: Regular rate, Regular Rhythm Abdomen: Soft, Non-Distended Extremities: No clubbing, No cyanosis. There is a left BKA stump with an anterior wound disruption. Measures 5 x 2 x 1.5 cm. There is palpable bone and granulation tissue over the bone. The surrounding tissue shows good granulation tissue. The stump is soft with decreased swelling. Slight tenderness to palpation. Neurological: Cranial nerves II-XII grossly intact Psych/Mental Status: Normal Affect, Appropriate ASSESSMENT 1. Dehiscence of left BKA stump. 2. Infection of left BKA stump. 3. Osteomyelitis. 4. MRSA. 5. Diabetes mellitus. 6. Former smoker. PLAN After recently finishing Vancomycin and Zosyn for Burkholderia cepacia and MRSE, it was felt the left BKA stump wound disruption was stable with decreased swelling as the stump was soft in order to proceed to the OR for excisional debridement and partial ostectomy for osteomyelitis with an attempt at secondary wound closure revision and possible readvancement of the muscle flap. A drain would be placed. Based on the operative cultures, IV antibiotics may be necessary again. If the wound closure is felt to be too tight under too much tension, than I would just proceed with the debridement at this time and continue wound care with the VAC and wait several more weeks of swelling improvement before considering further operative intervention for stump wound closure. Patient is aware of that possibility and voices understanding and wishes to proceed. Patient was informed of the risks and complications of the procedure including alternatives to surgery. These were discussed with the patient personally. Patient voices understanding and wishes to proceed. Surgery would be done under genera anesthesia and tourniquet control with a surgical observation overnight stay in the hospital. Anticipate increased metabolic demands from the wound and the surgery and will check a Prealbumin. Will encourage nutritional supplementation with protein to help the healing process.
[2017-10-28] VITALS (11 sets, daily range): BP systolic 95–146; BP diastolic 44–87; PULSE 70–96; RESP 14–20; TEMP 36.4–36.9; O2SAT 92–99; BMI 34.9
[2017-10-28] MEDS: Vancomycin IV 1,000 MG/200 ML BAG 200 MG IV (09:50)
[2017-10-28 09:55] LABS: Bedside Glucose 172 mg/dL (70-110)
--- NOTE | 2017-10-28 10:25 | DEB_PTH ---
PATIENT: BASIL MARRERO LOC: [facility]2 U#:[id number] AGE/SX: 62/M ROOM: [facility] [id number] RE10/28/[address]: Dr. Rangel Prado MD : [id number] BED: 1 DIS: 10/31/2017 SPEC #: [id number] RECD: 10/28/17 14:18 STATUS: DENA REQ #: [id number] MICAELA: 10/28/17 10:[address]: Lucho Rodriguez DEPT: SURGICAL PATHOLOGY RECD BY: Chuy Belcher ENTERED: 10/29/17 08:27 SP TYPE: REECE TISS OTHR DR: MD Dr. Basil Thomas MD Dr. James A Slaby, MD Dr. Paul Fracasso, DO Dr. Robert Leininger, MD Tissues: A - Soft tissues, NOS B - Bone of lower extremity, NOS Procedures: Decalcification bone/plaque Surgery Specimen Level III Comments: @ Ordering doctor for DEC edited from to @ by BERE at 10/29/17 1548 @ Ordering doctor for SUIII edited from to @ by RGOOD at 10/29/17 1548 @ Submitting doctor edited from to @ by RGOOD at 10/29/17 1548 HEADER OPERATION: Surgical preparation left below knee amputation stump PRE-OP DIAGNOSIS: Dehiscence of left below knee amputation stump, osteomyelitis, MRSA TISSUE SUBMITTED: A ? Debrided tissue left below knee amputation stump, B - Debrided bone left below knee amputation stump MICROSCOPIC DIAGNOSIS A. Debrided tissue left below knee amputation stump: Pieces of skin and soft tissue with focal ulceration, associated acute and chronic inflammation and granulation tissue reaction. B. Debrided bone left below knee amputation stump: Pieces of bone with reactive changes and mild acute and chronic osteomyelitis. SJ:negra 10/31/17 MICROSCOPIC DESCRIPTION Slides are reviewed. GROSS DESCRIPTION A - Received in fixative is one container labeled with the patient's name and designated debrided tissue left BKA stump. The specimen consists of multiple pieces of harris soft tissue with a fragment showing a portion of skin that in aggregate measure 7 x 5 x 2.5 cm. Meat Counter Clerk sections are submitted in two cassettes. B - Received in fixative is one container labeled with the patient's name and designated debrided bone left BKA stump. The specimen consists of multiple fragments of bone that in aggregate measure 3 x 2.5 x 0.3 cm. The entire specimen is submitted in one cassette after decalcification. / INDIRA:negra 10/29/17 TC:2 CPT: 02231 x2, 21483
[2017-10-28] MEDS: Mupirocin Ointment 22gm Tube 1 APPLIC (12:53)
--- NOTE | 2017-10-28 13:02 | PCM.IMDPSTOP ---
Immediate Post-Op Note Date of Procedure: 10/28/17 Primary Surgeon/Physician: Lucho Rodriguez diesel dinkey operator: Adam Bolaños. Pre-Operative Diagnosis: 1. Dehiscence of left BKA stump. 2. Infection of left BKA stump. 3. Osteomyelitis. 4. MRSA. 5. Diabetes mellitus. 6. Former smoker. Post-Operative Diagnosis: Same. Surgery/Procedure Performed:: 1. Surgical preparation left BKA stump with excision dehiscence amputation stump ulcer and partial ostectomy tibia for osteomyelitis. 2. Reconstruction with re-advancement muscle flap and bipedicle periosteal anterior fascial advancement flap and secondary wound closure revision. Description of Surgical Findings:: 62 year old man presents with a traumatic disruption left BKA stump. He underwent the left BKA on 06/24/17 because of long standing infections with MRSA along with osteomyelitis and Charcot arthropathy. While he was recovering from the left BKA, he fell on his stump and it broke open. He has been treating the disruption with the VAC. Wound culture from 08/04/17 showed Burkholderia cepacia and MRSE. He was treated with IV Vancomycin and Zosyn for 6 weeks. The wound has stabilized with decreased swelling. He presents today for further operative debridement and partial ostectomy for osteomyelitis and secondary wound closure revision and possible readvancement of the muscle flap. Patient is aware that if the decreased swelling is not enough and any attempts at wound closure at this time would place the flap under too much tension, than I would hold off on trying to close the stump at this time and just proceed with the operative debridement and wait several more weeks before deciding on another attempt at stump wound closure. He is aware of that possibility and voices understanding. Today the patient underwent surgical preparation left BKA stump with excision dehiscence amputation stump ulcer and partial ostectomy tibia for osteomyelitis and reconstruction with re-advancement muscle flap and bipedicle periosteal anterior fascial advancement flap and secondary wound closure revision. Total tourniquet time - 69 minutes. I used Zenon absorbable hemostat. Reference Number - [id number]. Lot Number - [id number]. Expiration - December 14, 2021. Estimated Blood Loss: 25 ml. Specimen's removed: 1. Dehiscence left BKA stump tissue to Pathology and Microbiology. 2. Left BKA stump tibial bone to Pathology and Microbiology. Drains: Sathya. Type of Anesthesia:: General - Admit VTE Documentation VTE Present on Admission: No VTE Mechan Device Prophylaxis: SCD's
--- NOTE | 2017-10-28 13:07 | OP.PN_ITS ---
Immediate Post-Op Note Date of Procedure: 10/28/17 Primary Surgeon/Physician: Lucho Rodriguez chaplain resident: Adam Bolaños. Pre-Operative Diagnosis: 1. Dehiscence of left BKA stump. 2. Infection of left BKA stump. 3. Osteomyelitis. 4. MRSA. 5. Diabetes mellitus. 6. Former smoker. Post-Operative Diagnosis: Same. Surgery/Procedure Performed:: 1. Surgical preparation left BKA stump with excision dehiscence amputation stump ulcer and partial ostectomy tibia for osteomyelitis. 2. Reconstruction with re-advancement muscle flap and bipedicle periosteal anterior fascial advancement flap and secondary wound closure revision. Description of Surgical Findings:: 62 year old man presents with a traumatic disruption left BKA stump. He underwent the left BKA on 06/24/17 because of long standing infections with MRSA along with osteomyelitis and Charcot arthropathy. While he was recovering from the left BKA, he fell on his stump and it broke open. He has been treating the disruption with the VAC. Wound culture from 08/04/17 showed Burkholderia cepacia and MRSE. He was treated with IV Vancomycin and Zosyn for 6 weeks. The wound has stabilized with decreased swelling. He presents today for further operative debridement and partial ostectomy for osteomyelitis and secondary wound closure revision and possible readvancement of the muscle flap. Patient is aware that if the decreased swelling is not enough and any attempts at wound closure at this time would place the flap under too much tension, than I would hold off on trying to close the stump at this time and just proceed with the operative debridement and wait several more weeks before deciding on another attempt at stump wound closure. He is aware of that possibility and voices understanding. Today the patient underwent surgical preparation left BKA stump with excision dehiscence amputation stump ulcer and partial ostectomy tibia for osteomyelitis and reconstruction with re-advancement muscle flap and bipedicle periosteal anterior fascial advancement flap and secondary wound closure revision. Total tourniquet time - 69 minutes. I used Zenon absorbable hemostat. Reference Number - [id number]. Lot Number - [id number]. Expiration - December 14, 2021. Estimated Blood Loss: 25 ml. Specimen's removed: 1. Dehiscence left BKA stump tissue to Pathology and Microbiology. 2. Left BKA stump tibial bone to Pathology and Microbiology. Drains: Sathya. Type of Anesthesia:: General - Admit VTE Documentation VTE Present on Admission: No VTE Mechan Device Prophylaxis: SCD's
[2017-10-28 13:35] LABS: Bedside Glucose 168 mg/dL (70-110)
--- NOTE | 2017-10-28 15:00 | PCM.CONS.GEN ---
Problem List (1) Infection of amputation stump of left lower extremity Status: Acute (2) Dehiscence of amputation stump Status: Acute (3) Obesity (BMI 30-39.9) Status: Chronic (4) History of left below knee amputation Status: Chronic (5) Obstructive sleep apnea Status: Chronic (6) Hyperlipidemia Status: Chronic Qualifiers: Hyperlipidemia type: pure hypercholesterolemia Qualified Code(s): E78.00 - Pure hypercholesterolemia, unspecified; E78.0 - Pure hypercholesterolemia (7) Chronic pain Status: Chronic Qualifiers: Chronic pain type: chronic pain syndrome Qualified Code(s): G89.4 - Chronic pain syndrome (8) Diabetes mellitus Status: Chronic Qualifiers: Diabetes mellitus type: type 2 Diabetes mellitus fdc insulin use: with fdc use Diabetes mellitus complication status: with unspecified complications Qualified Code(s): E11.8 - Type 2 diabetes mellitus with unspecified complications; 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 (9) Hypertension Status: Chronic Qualifiers: Hypertension type: essential hypertension Qualified Code(s): I10 - Essential (primary) hypertension (10) Neuropathy Status: Chronic Comment: secondary to diabetes (11) Anemia Status: Chronic Qualifiers: Anemia type: unspecified type Qualified Code(s): D64.9 - Anemia, unspecified (12) Depression Status: Chronic Qualifiers: Depression Type: unspecified Qualified Code(s): F32.9 - Major depressive disorder, single episode, unspecified Reason for Consult Date of Consultation: 10/28/17 Reason for Consultation: Medical consultation History of Present Illness: The patient is a 62 y/o M w/ PMHx: PETRA, HTN, HLD, Diabetes mellitus type II, Anxiety and Depression, Obesity, GERD, Former Tobacco use who presents to the [facility] on 10/28/17 for planned intervention to L BKA stump secondary to traumatic dehiscence with history of L BKA on 06/24/17 secondary to long-standing MRSA osteomyelitis recurrent infections and recent fall, noted to have fallen onto his stump resulting in unfortunate trauma and dehiscence. She had been treated with a wound VAC in addition to IV vancomycin and Zosyn ?6 weeks following wound culture on 08/04/17 with Burkholderia cepacia and MRSE with noted decreased swelling with planned operative debridement, partial ostectomy for osteomyelitis and secondary wound closure revision with possible re-advancement of the muscle flap. Patient on day of hospital presentation was noted to have undergone surgical preparation of the left BKA stump with excision dehiscence amputation stump ulcer and partial ostectomy of the tibia secondary to osteomyelitis as well as reconstruction with re-advancement muscle flap and by pedicle periosteal advancement flap as well as secondary wound closure and revision. Patient notes discomfort ongoing to the stump and also behind the left knee with Terry bandage has bunched up. Patient with recent medication for pain upon visitation to the floor from the PACU requesting additional. Hospitalist service consulted for medical management. 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) Osteomyelitis (Chronic) Personal history of Methicillin resistant Staphylococcus aureus infection (Chronic) History of left below knee amputation (Chronic) 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) Obstructive sleep apnea (Chronic) Hyperlipidemia (Chronic) Chronic pain (Chronic) Diabetes mellitus (Chronic) Venous insufficiency (Chronic) Hypertension (Chronic) Osteomyelitis (Chronic) Non-pressure chronic ulcer of left heel and midfoot with muscle involvement without evidence of necrosis (Chronic) Infection of left foot (Chronic) Hypersomnia (Chronic) Ulcer of midfoot with necrosis of muscle (Chronic) Nocturnal hypoxemia (Chronic) Abscess of left foot (Chronic) Diabetic ulcer of left foot with fat layer exposed (Chronic) Non-pressure chronic ulcer of left heel and midfoot with fat layer exposed (Chronic) 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 Venous insufficiency of both lower extremities (Chronic) S/P transmetatarsal amputation of foot (Chronic) 03/04/[address] 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) Hypertension (Chronic) Amputation of right foot with complication (Chronic) Type 2 diabetes mellitus with diabetic polyneuropathy (Chronic) Stasis dermatitis of both legs (Chronic) Sleep apnea (Chronic) CPAP 15 cm H20, 100% compliant Neuropathy (Chronic) secondary to diabetes Morbid obesity (Chronic) Anemia (Chronic) Dyslipidemia (Chronic) Left ventricular hypertrophy (Chronic) Chronic pain syndrome (Chronic) Depression (Chronic) Medical History: Medical History (Last Reviewed 09/01/17 @ 13:36 by Shanique Martinez) Personal history of Methicillin resistant Staphylococcus aureus infection (Chronic) Z86.14 Fracture of left foot (Resolved) S92.902A Non-pressure chronic ulcer of other part of right foot with fat layer exposed (Resolved) L97.512 Toe osteomyelitis, right (Resolved) M86.9 Ulcer of right lower extremity with fat layer exposed (Resolved) L97.912 Allergies cefepime Allergy (Verified 10/13/17 13:14) Hives sulfamethoxazole [From Septra] Allergy (Verified 10/13/17 13:14) turned red trimethoprim [From Octra] Allergy (Verified 10/13/17 13:14) turned red lisinopril Adverse Reaction (Verified 10/13/17 13:14) cough Home Medications: Ambulatory Orders Medication Instructions Recorded Metformin HCl [Glucophage] 1,000 mg PO BIDCM 11/15/14 Losartan Potassium [Cozaar] 100 mg PO DAILY 06/05/16 buPROPion XL [Wellbutrin Xl] 150 mg PO DAILY 01/21/17 Triamterene/Hydrochlorothiazid 1 each PO DAILY 03/24/17 [Triamterene-Hctz 37.5-25 mg Cp] Glucerna Shake 120 ml PO 4X/DAY 06/19/17 Atorvastatin Calcium [Lipitor] 40 mg PO QHS #30 tab 07/11/17 Iron Polysaccharide Complex 150 mg PO DAILYCM #30 cap 07/11/17 [Ferrex 150] Pantoprazole Sodium [Protonix] 20 mg PO BID #60 tab 07/11/17 Citalopram [Celexa] 40 mg PO DAILY 08/18/17 Empagliflozin [Jardiance] 25 mg PO DAILY 08/18/17 Gabapentin [Neurontin] 800 mg PO 4X/DAY 08/18/17 Ibuprofen [Motrin] 400 mg PO Q6H PRN PRN 08/18/17 Insulin NPH Human Isophane 50 unit SQ BID 08/18/17 [Novolin N] Insulin Regular, Human [Novolin R] 20 unit SC TIDCM 08/18/17 Surgical History: - - Debridement left foot ulcer with versajet including necrotic muscle and widespread debridement plantar foot and incision and drainage left foot 01/24/17, Bone biopsy calcaneal cuboid bone left foot and excisional debridement left plantar foot ulceration 10/18/16, Right foot trans metatarsal amputation 03/04/16, Partial 4th toe amputation right foot at PIP joint 12/09/15, Excisional debridement including fascia left great toe 04/03/15, Right hallux amputation at MTP joint 12/29/14, microdiscectomy ?2, deviated septal repair, ulnar nerve repair, cholecystectomy, L BKA 06/24/17, now 10/28/17 Surgical preparation left BKA stump with excision dehiscence amputation stump ulcer and partial ostectomy tibia for osteomyelitis. 2. Reconstruction with re-advancement muscle flap and bipedicle periosteal advancement flap and secondary wound closure revision. Psychiatric History: Anxiety, Depression Lives: Spouse/ Significant Other Smoking Status: Former smoker Tobacco Use: Non-smoker Alcohol: None Drugs: None - *Family History Maternal History Items: Cancer, Heart Disease Paternal History Items: Heart Disease Review of Systems Constitutional: Reports: Malaise, Weakness, Fatigue. Denies: Chills, Fever, Weight Change HEENT: Denies: Head Aches, Sinus Congestion, Sinus Drainage Cardiovascular: Denies: Chest Pain, Palpitations Respiratory: Denies: Cough, Shortness of breath at rest, Sputum production Gastrointestinal: Denies: Abdominal Pain, Nausea, Vomiting Genitourinary: Denies: Dysuria Musculoskeletal: Reports: Leg Pain. Denies: Joint Pain, Joint Tenderness Skin: Reports: Skin Changes. Denies: Rash, Wounds Neurological: Denies: Numbness, Tingling, Focal weakness Psychiatric: Reports: Anxiety, Depression. Denies: Homicidal Ideations, Suicidal Ideations Hematologic/ Lymphatic: Reports: Anemia. Denies: Easy Bruising, Easy Bleeding Subjective: Seated upright in the bed, notes ongoing discomfort to the left stump, reporting that the Terry bandage has bunched behind the knee and requesting change. Objective: Physical Examination: General: awake, alert, oriented x 3 and cooperative, seated upright in bed, notes ongoing discomfort left stump. Skin: normal color, turgor, no icterus, cyanosis, left stump with tight Terry bandage in place, some Terry bunching behind the knee with patient noted discomfort, JPs in place with serosanguineous drainage noted. HEENT: AT/NC, EOMI, PERRLA, dry MM, no carotid bruits or JVD noted. Lungs: Initial breath sounds, greater bilateral bases, moderate effort, no rales, ronchi or wheezing. Heart: Regular rate and rhythm; no gallop, rub audible. Abdomen: soft, obese, NTTP, ND, normal BS, no HSM; however habitus makes examination difficult. Extremities: no cyanosis, clubbing, that is post left AKA debridement and intervention with Terry wrap in place and NEY drains in place with serosanguineous drainage. Neurological: patient awake, alert, oriented x 3; cognitive function intact; pupils equally reactive to light and accomodation; cranial nerves II-XII grossly normal, moving all 4 extremities including left stump but severely globally decreased strength secondary to recent interventions. Psychiatric: affect appears fatigued, no acute evidence of depressive or anxiety feelings. - Physical Exam Vital Signs Temp Pulse Resp BP Pulse Ox 98.2 F 72 16 122/61 H 97 10/28/17 14:45 10/28/17 14:45 10/28/17 14:45 10/28/17 14:45 10/28/17 14:45 Oxygen Flow Rate (L/min) 3 Oxygen Delivery Method Nasal Cannula Weight: 280 lb Body Mass Index (BMI) 34.9 Finger Stick Blood Glucose 168 Intake and Output for Last 24 Hours 10/26/17 10/27/17 10/28/17 23:59 23:59 23:59 Intake Total 2099 / 2099 Output Total 0 / 0 Balance 2099 POC Glucose 10/28/17 10/28/17 13:29 09:40 POC Glucose 168 H 172 H Assessment/Plan All Active Problems (Last Reviewed 09/01/17 @ 13:36 by Shanique Martinez) Infection of amputation stump of left lower extremity (Acute) Dehiscence of amputation stump (Acute) Acute osteomyelitis of left foot (Acute) Non-pressure chronic ulcer of left heel and midfoot with bone involvement without evidence of necrosis (Acute) Cellulitis (Resolved) Cellulitis and abscess of toe of left foot (Resolved) Cellulitis of great toe, left (Resolved) Cellulitis of leg (Resolved) Cellulitis of right foot (Resolved) Deep venous thrombosis (Resolved) Diabetic toe ulcer (Resolved) Fracture of left foot (Resolved) Hammer toe of right foot (Resolved) Healed ulcer of left foot on examination (Resolved) Lymphangitis (Resolved) Non-pressure chronic ulcer of other part of right foot with fat layer exposed (Resolved) Right foot infection (Resolved) Sepsis (Resolved) Skin ulcer of left great toe with fat layer exposed (Resolved) Toe osteomyelitis, right (Resolved) Ulcer of right leg (Resolved) Ulcer of right lower extremity with fat layer exposed (Resolved) Ulcer of right lower extremity with fat layer exposed (Resolved) Ulcer of right second toe with fat layer exposed (Resolved) Ulcer of toe of right foot (Resolved) Ulcer with necrosis of muscle (Resolved) Wound of left leg (Resolved) Wound of right leg (Resolved) The patient is a 62 y/o M w/ PMHx: PETRA, HTN, HLD, Diabetes mellitus type II, Anxiety and Depression, Obesity, GERD, Former Tobacco use who presents to the [facility] on 10/28/17 for planned intervention to L BKA stump secondary to traumatic dehiscence with history of L BKA on 06/24/17 secondary to long-standing MRSA osteomyelitis recurrent infections and recent fall, noted to have fallen onto his stump resulting in unfortunate trauma and dehiscence. (1) Recent History of MRSA, Burkholderia cepacia and MRSE osteomyelitis w/ Mechanical Fall and Incisional dehiscence: OR 10/28/[address] Rodriguez, s/p surgical preparation of the left BKA stump with excision dehiscence amputation stump ulcer and partial ostectomy of the tibia secondary to osteomyelitis as well as reconstruction with re-advancement muscle flap and by pedicle periosteal advancement flap as well as secondary wound closure and revision. Post-op wound care per Surgery discretion, Wound RN expected, PRN pain regimen, PRN antiemetics, PT/OT/CM for discharge planning. Currently maintained on IV Vanc and Zosyn w/ pending OR cultures. ID consulted per primary service, pending. (2) Hypertension: Continue home regimen including losartan, triamterene, hydrochlorothiazide, PRN hydralazine. (3) Hyperlipidemia: Continue home statin regimen. (4) Diabetes mellitus type II with neuropathy: Hold oral home regimen, continue home insulin regimen, ADA diet, accu checks w/ ISS, continue home Neurontin regimen. HgbA1c repeat pending, last 06/20/17 8%. Nutrition consulted for education and teaching. (5) Obesity: Weight loss and lifestyle changes encouraged. (6) Iron deficiency anemia: Continue home iron supplementation, postop hemoglobin per surgery discretion. (7) Anxiety and depression: Continue home Wellbutrin, Celexa regimen. (8) PETRA: CPAP if able to tolerate. (9) GERD: PPI. (10) DVT prophylaxis: SCD to unaffected extremity, lovenox initiated per surgery discretion given recent operative intervention Code Visit Office Visits / Consults: [id number] IP Consult L4
[2017-10-28] MEDS: HYDROmorphone 1 MG/ML Syringe IV ×2 (15:04→18:59)
[2017-10-28] MEDS: 0.9% NaCl Peripheral Flush Adult/Peds IV (15:04)
--- NOTE | 2017-10-28 15:13 | CON.PCM_ITS ---
Problem List (1) Infection of amputation stump of left lower extremity Status: Acute (2) Dehiscence of amputation stump Status: Acute (3) Obesity (BMI 30-39.9) Status: Chronic (4) History of left below knee amputation Status: Chronic (5) Obstructive sleep apnea Status: Chronic (6) Hyperlipidemia Status: Chronic Qualifiers: Hyperlipidemia type: pure hypercholesterolemia Qualified Code(s): E78.00 - Pure hypercholesterolemia, unspecified; E78.0 - Pure hypercholesterolemia (7) Chronic pain Status: Chronic Qualifiers: Chronic pain type: chronic pain syndrome Qualified Code(s): G89.4 - Chronic pain syndrome (8) Diabetes mellitus Status: Chronic Qualifiers: Diabetes mellitus type: type 2 Diabetes mellitus long-term insulin use: with long-term use Diabetes mellitus complication status: with unspecified complications Qualified Code(s): E11.8 - Type 2 diabetes mellitus with unspecified complications; Z79.4 - watermaster (current) use of insulin (9) Hypertension Status: Chronic Qualifiers: Hypertension type: essential hypertension Qualified Code(s): I10 - Essential (primary) hypertension (10) Neuropathy Status: Chronic Comment: secondary to diabetes (11) Anemia Status: Chronic Qualifiers: Anemia type: unspecified type Qualified Code(s): D64.9 - Anemia, unspecified (12) Depression Status: Chronic Qualifiers: Depression Type: unspecified Qualified Code(s): F32.9 - Major depressive disorder, single episode, unspecified Reason for Consult Date of Consultation: 10/28/17 Reason for Consultation: Medical consultation History of Present Illness: The patient is a 62 y/o M w/ PMHx: PETRA, HTN, HLD, Diabetes mellitus type II, Anxiety and Depression, Obesity, GERD, Former Tobacco use who presents to the [facility] on 10/28/17 for planned intervention to L BKA stump secondary to traumatic dehiscence with history of L BKA on 06/24/17 secondary to long-standing MRSA osteomyelitis recurrent infections and recent fall, noted to have fallen onto his stump resulting in unfortunate trauma and dehiscence. She had been treated with a wound VAC in addition to IV vancomycin and Zosyn ?6 weeks following wound culture on 08/04/17 with Burkholderia cepacia and MRSE with noted decreased swelling with planned operative debridement, partial ostectomy for osteomyelitis and secondary wound closure revision with possible re-advancement of the muscle flap. Patient on day of hospital presentation was noted to have undergone surgical preparation of the left BKA stump with excision dehiscence amputation stump ulcer and partial ostectomy of the tibia secondary to osteomyelitis as well as reconstruction with re-advancement muscle flap and by pedicle periosteal advancement flap as well as secondary wound closure and revision. Patient notes discomfort ongoing to the stump and also behind the left knee with Terry bandage has bunched up. Patient with recent medication for pain upon visitation to the floor from the PACU requesting additional. Hospitalist service consulted for medical management. 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) Osteomyelitis (Chronic) Personal history of Methicillin resistant Staphylococcus aureus infection ( Chronic) History of left below knee amputation (Chronic) 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) Obstructive sleep apnea (Chronic) Hyperlipidemia (Chronic) Chronic pain (Chronic) Diabetes mellitus (Chronic) Venous insufficiency (Chronic) Hypertension (Chronic) Osteomyelitis (Chronic) Non-pressure chronic ulcer of left heel and midfoot with muscle involvement without evidence of necrosis (Chronic) Infection of left foot (Chronic) Hypersomnia (Chronic) Ulcer of midfoot with necrosis of muscle (Chronic) Nocturnal hypoxemia (Chronic) Abscess of left foot (Chronic) Diabetic ulcer of left foot with fat layer exposed (Chronic) Non-pressure chronic ulcer of left heel and midfoot with fat layer exposed ( Chronic) 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 Venous insufficiency of both lower extremities (Chronic) S/P transmetatarsal amputation of foot (Chronic) 03/04/[address] 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) Hypertension (Chronic) Amputation of right foot with complication (Chronic) Type 2 diabetes mellitus with diabetic polyneuropathy (Chronic) Stasis dermatitis of both legs (Chronic) Sleep apnea (Chronic) CPAP 15 cm H20, 100% compliant Neuropathy (Chronic) secondary to diabetes Morbid obesity (Chronic) Anemia (Chronic) Dyslipidemia (Chronic) Left ventricular hypertrophy (Chronic) Chronic pain syndrome (Chronic) Depression (Chronic) Medical History: Medical History (Last Reviewed 09/01/17 @ 13:36 by Shanique Martinez) Personal history of Methicillin resistant Staphylococcus aureus infection ( Chronic) Z86.14 Fracture of left foot (Resolved) S92.902A Non-pressure chronic ulcer of other part of right foot with fat layer exposed ( Resolved) L97.512 Toe osteomyelitis, right (Resolved) M86.9 Ulcer of right lower extremity with fat layer exposed (Resolved) L97.912 Allergies cefepime Allergy (Verified 10/13/17 13:14) Hives sulfamethoxazole [From Septra] Allergy (Verified 10/13/17 13:14) turned red trimethoprim [From Octra] Allergy (Verified 10/13/17 13:14) turned red lisinopril Adverse Reaction (Verified 10/13/17 13:14) cough Home Medications: Ambulatory Orders Medication Instructions Recorded Metformin HCl [Glucophage] 1,000 mg PO BIDCM 11/15/14 Losartan Potassium [Cozaar] 100 mg PO DAILY 06/05/16 buPROPion XL [Wellbutrin Xl] 150 mg PO DAILY 01/21/17 Triamterene/Hydrochlorothiazid 1 each PO DAILY 03/24/17 [Triamterene-Hctz 37.5-25 mg Cp] Glucerna Shake 120 ml PO 4X/DAY 06/19/17 Atorvastatin Calcium [Lipitor] 40 mg PO QHS #30 tab 07/11/17 Iron Polysaccharide Complex 150 mg PO DAILYCM #30 cap 07/11/17 [Ferrex 150] Pantoprazole Sodium [Protonix] 20 mg PO BID #60 tab 07/11/17 Citalopram [Celexa] 40 mg PO DAILY 08/18/17 Empagliflozin [Jardiance] 25 mg PO DAILY 08/18/17 Gabapentin [Neurontin] 800 mg PO 4X/DAY 08/18/17 Ibuprofen [Motrin] 400 mg PO Q6H PRN PRN 08/18/17 Insulin NPH Human Isophane 50 unit SQ BID 08/18/17 [Novolin N] Insulin Regular, Human [Novolin R] 20 unit SC TIDCM 08/18/17 Surgical History: - - Debridement left foot ulcer with versajet including necrotic muscle and widespread debridement plantar foot and incision and drainage left foot 01/24/17, Bone biopsy calcaneal cuboid bone left foot and excisional debridement left plantar foot ulceration 10/18/16, Right foot trans metatarsal amputation 03/04/16, Partial 4th toe amputation right foot at PIP joint 12/09/15, Excisional debridement including fascia left great toe 04/03/15, Right hallux amputation at MTP joint 12/29/14, microdiscectomy ?2, deviated septal repair, ulnar nerve repair, cholecystectomy, L BKA 06/24/17, now 10/28/17 Surgical preparation left BKA stump with excision dehiscence amputation stump ulcer and partial ostectomy tibia for osteomyelitis. 2. Reconstruction with re -advancement muscle flap and bipedicle periosteal advancement flap and secondary wound closure revision. Psychiatric History: Anxiety, Depression Lives: Spouse/ Significant Other Smoking Status: Former smoker Tobacco Use: Non-smoker Alcohol: None Drugs: None - *Family History Maternal History Items: Cancer, Heart Disease Paternal History Items: Heart Disease Review of Systems Constitutional: Reports: Malaise, Weakness, Fatigue. Denies: Chills, Fever, Weight Change HEENT: Denies: Head Aches, Sinus Congestion, Sinus Drainage Cardiovascular: Denies: Chest Pain, Palpitations Respiratory: Denies: Cough, Shortness of breath at rest, Sputum production Gastrointestinal: Denies: Abdominal Pain, Nausea, Vomiting Genitourinary: Denies: Dysuria Musculoskeletal: Reports: Leg Pain. Denies: Joint Pain, Joint Tenderness Skin: Reports: Skin Changes. Denies: Rash, Wounds Neurological: Denies: Numbness, Tingling, Focal weakness Psychiatric: Reports: Anxiety, Depression. Denies: Homicidal Ideations, Suicidal Ideations Hematologic/ Lymphatic: Reports: Anemia. Denies: Easy Bruising, Easy Bleeding Subjective: Seated upright in the bed, notes ongoing discomfort to the left stump, reporting that the Terry bandage has bunched behind the knee and requesting change. Objective: Physical Examination: General: awake, alert, oriented x 3 and cooperative, seated upright in bed, notes ongoing discomfort left stump. Skin: normal color, turgor, no icterus, cyanosis, left stump with tight Terry bandage in place, some Terry bunching behind the knee with patient noted discomfort, JPs in place with serosanguineous drainage noted. HEENT: AT/NC, EOMI, PERRLA, dry MM, no carotid bruits or JVD noted. Lungs: Initial breath sounds, greater bilateral bases, moderate effort, no rales , ronchi or wheezing. Heart: Regular rate and rhythm; no gallop, rub audible. Abdomen: soft, obese, NTTP, ND, normal BS, no HSM; however habitus makes examination difficult. Extremities: no cyanosis, clubbing, that is post left AKA debridement and intervention with Terry wrap in place and NEY drains in place with serosanguineous drainage. Neurological: patient awake, alert, oriented x 3; cognitive function intact; pupils equally reactive to light and accomodation; cranial nerves II-XII grossly normal, moving all 4 extremities including left stump but severely globally decreased strength secondary to recent interventions. Psychiatric: affect appears fatigued, no acute evidence of depressive or anxiety feelings. - Physical Exam Vital Signs Temp Pulse Resp BP Pulse Ox 98.2 F 72 16 122/61 H 97 10/28/17 14:45 10/28/17 14:45 10/28/17 14:45 10/28/17 14:45 10/28/17 14:45 Oxygen Flow Rate (L/min) 3 Oxygen Delivery Method Nasal Cannula Weight: 280 lb Body Mass Index (BMI) 34.9 Finger Stick Blood Glucose 168 Intake and Output for Last 24 Hours 10/26/17 10/27/17 10/28/17 23:59 23:59 23:59 Intake Total 2099 / 2099 Output Total 0 / 0 Balance 2099 POC Glucose 10/28/17 10/28/17 13:29 09:40 POC Glucose 168 H 172 H Assessment/Plan All Active Problems (Last Reviewed 09/01/17 @ 13:36 by Shanique Martinez) Infection of amputation stump of left lower extremity (Acute) Dehiscence of amputation stump (Acute) Acute osteomyelitis of left foot (Acute) Non-pressure chronic ulcer of left heel and midfoot with bone involvement without evidence of necrosis (Acute) Cellulitis (Resolved) Cellulitis and abscess of toe of left foot (Resolved) Cellulitis of great toe, left (Resolved) Cellulitis of leg (Resolved) Cellulitis of right foot (Resolved) Deep venous thrombosis (Resolved) Diabetic toe ulcer (Resolved) Fracture of left foot (Resolved) Hammer toe of right foot (Resolved) Healed ulcer of left foot on examination (Resolved) Lymphangitis (Resolved) Non-pressure chronic ulcer of other part of right foot with fat layer exposed ( Resolved) Right foot infection (Resolved) Sepsis (Resolved) Skin ulcer of left great toe with fat layer exposed (Resolved) Toe osteomyelitis, right (Resolved) Ulcer of right leg (Resolved) Ulcer of right lower extremity with fat layer exposed (Resolved) Ulcer of right lower extremity with fat layer exposed (Resolved) Ulcer of right second toe with fat layer exposed (Resolved) Ulcer of toe of right foot (Resolved) Ulcer with necrosis of muscle (Resolved) Wound of left leg (Resolved) Wound of right leg (Resolved) The patient is a 62 y/o M w/ PMHx: PETRA, HTN, HLD, Diabetes mellitus type II, Anxiety and Depression, Obesity, GERD, Former Tobacco use who presents to the [facility] on 10/28/17 for planned intervention to L BKA stump secondary to traumatic dehiscence with history of L BKA on 06/24/17 secondary to long-standing MRSA osteomyelitis recurrent infections and recent fall, noted to have fallen onto his stump resulting in unfortunate trauma and dehiscence. (1) Recent History of MRSA, Burkholderia cepacia and MRSE osteomyelitis w/ Mechanical Fall and Incisional dehiscence: OR 10/28/[address] Rodriguez, s/p surgical preparation of the left BKA stump with excision dehiscence amputation stump ulcer and partial ostectomy of the tibia secondary to osteomyelitis as well as reconstruction with re-advancement muscle flap and by pedicle periosteal advancement flap as well as secondary wound closure and revision. Post-op wound care per Surgery discretion, Wound RN expected, PRN pain regimen, PRN antiemetics, PT/OT/CM for discharge planning. Currently maintained on IV Vanc and Zosyn w/ pending OR cultures. ID consulted per primary service, pending. (2) Hypertension: Continue home regimen including losartan, triamterene, hydrochlorothiazide, PRN hydralazine. (3) Hyperlipidemia: Continue home statin regimen. (4) Diabetes mellitus type II with neuropathy: Hold oral home regimen, continue home insulin regimen, ADA diet, accu checks w/ ISS, continue home Neurontin regimen. HgbA1c repeat pending, last 06/20/17 8%. Nutrition consulted for education and teaching. (5) Obesity: Weight loss and lifestyle changes encouraged. (6) Iron deficiency anemia: Continue home iron supplementation, postop hemoglobin per surgery discretion. (7) Anxiety and depression: Continue home Wellbutrin, Celexa regimen. (8) PETRA: CPAP if able to tolerate. (9) GERD: PPI. (10) DVT prophylaxis: SCD to unaffected extremity, lovenox initiated per surgery discretion given recent operative intervention Code Visit Office Visits / Consults: [id number] IP Consult L4
[2017-10-28] MEDS: Piperacil/Tazobactam 3.375 GM/50 ML ML IV ×2 (16:24→21:38)
--- NOTE | 2017-10-28 16:40 | PCM.RX.CS ---
Consult Pharmacy has been consulted to manage selected antiobiotic: Vancomycin Type of Consult: New start Suspected Infection: Osteomyelitis Prior Doses of Antibiotics Received/Current Regimen: 1 Labs: TROUGH PRIOR TO 4TH DOSE = 10/30/17 @ 0530 Microbiology: Microbiology 10/28/17 11:18 Bone - Other Gram Stain - Final 10/28/17 11:18 Tissue - Other Gram Stain - Final Weight used for dosin kg Estimated Creatinine Clearance: 82 Goal Trough: 10-15 mcg/mL - 2 GRAM INITIAL DOSE THEN 1250MG Q12H (1GRAM PREOP DOSE ADMIN THIS AM) Pharmacy Plan for Drug Dosing: Pharmacy Service will continue to monitor and adjust dosing as required.
[2017-10-28] MEDS: diazePAM 5 MG Tablet PO (17:04)
[2017-10-28 17:10] LABS: Bedside Glucose 140 mg/dL (70-110)
--- NOTE | 2017-10-28 17:10 | CPS ---
PT OFFERED HOSPITAL PAP TO USE DURING STAY HERE. PT AND REFUSED. TO BRING HOME MACHINE IN TOMORROW MORNING. PT INFORMED IF HE CHANGES HIS MIND TO LET THE NURSE/THERAPIST KNOW AND WE CAN SET HIM UP FOR NIGHTTIME USE. PT AND VERBALIZE UNDERSTANDING.
--- NOTE | 2017-10-28 17:14 | PCM.OPRPT ---
Report of Operation Date of Procedure: 10/28/17 Pre-Operative Diagnosis: 1. Dehiscence of left BKA stump. 2. Infection of left BKA stump. 3. Osteomyelitis. 4. MRSA. 5. Diabetes mellitus. 6. Former smoker. Post-Operative Diagnosis: Same. Surgery/Procedure Performed:: 1. Surgical preparation left BKA stump with excision dehiscence amputation stump ulcer and partial ostectomy tibia for osteomyelitis. 2. Reconstruction with re-advancement muscle flap and bipedicle periosteal anterior fascial advancement flap and secondary wound closure revision. Description of Surgical Findings:: 62 year old man presents with a traumatic disruption left BKA stump. He underwent the left BKA on 06/24/17 because of long standing infections with MRSA along with osteomyelitis and Charcot arthropathy. While he was recovering from the left BKA, he fell on his stump and it broke open. He has been treating the disruption with the VAC. Wound culture from 08/04/17 showed Burkholderia cepacia and MRSE. He was treated with IV Vancomycin and Zosyn for 6 weeks. The wound has stabilized with decreased swelling. He presents today for further operative debridement and partial ostectomy for osteomyelitis and secondary wound closure revision and possible readvancement of the muscle flap. Patient is aware that if the decreased swelling is not enough and any attempts at wound closure at this time would place the flap under too much tension, than I would hold off on trying to close the stump at this time and just proceed with the operative debridement and wait several more weeks before deciding on another attempt at stump wound closure. He is aware of that possibility and voices understanding. Patient was informed of the risks and complications of the procedure including alternatives to surgery. These were discussed with the patient personally. Patient voices understanding and wishes to proceed. Total tourniquet time - 69 minutes. I used Zenon absorbable hemostat. Reference Number - [id number]. Lot Number - [id number]. Expiration - December 14, 2021. resource development director: Adam Bolaños. Type of Anesthesia:: General Specimen's removed: 1. Dehiscence left BKA stump tissue to Pathology and Microbiology. 2. Left BKA stump tibial bone to Pathology and Microbiology. Drains: Sathya. Estimated Blood Loss (mL): 25 ml. Description of Procedure: Patient was taken to OR in supine position and was placed under general anesthesia. The left BKA stump was prepped and draped in the usual fashion. SCD was placed for DVT prophylaxis on the right leg. Perioperative antibiotics were given intravenously. Using xylocaine with epinephrine, the left BKA stump ulcer was infiltrated. The tourniquet was elevated to 300 mmHg. Incision was made through the previous incision, and the ulcer was excised down to the muscle. I freed up the soleus muscle and it from the posterior flap which included the gastrocnemius muscle and fascia. these muscles helped to advance these tissue layers independently. This separation helped to decrease the tension of the closure over the bone as well as the skin closure. I extended the previous incision posteriorly as I dissected more of the muscle flap to aid in re-advancement of the muscle over the tibial bone. I also freed up the anterior fascia and the fascia from the skin to help with closure over the bone as well as the skin closure. I then debrided the granulation tissue over the tibia. Using an osteotome and a mallet, I proceeded with a partial ostectomy for osteomyelitis. I beveled the tibial bone anteriorly to decrease the sharp edge of the bone anteriorly. Using an oscillating lobito, I smoothed out the remaining bony edges which was followed by a rasp. I thought I would have to remove more bone than I actually did, but over the partial ostectomy, I felt I could advance the soft tissue flaps with minimal tension. The periosteal anterior fascia was a little short with regard to soft tissue coverage. I was able to advance the soleus muscle to the periosteal anterior fascia with a small area of exposed bone remaining. Therefore, I mobilized a bipedicle flap in order the advance a periosteal anterior fascial flap to cover the tibial bone over the stump with the soleus muscle. I transferred the exposed bone inferiorly which has the greatest amount of tension in the prosthesis to an area of bone proximally and anteriorly where the tension from the prosthesis is not present. The wound was irrigated with saline. Half the soft tissue and half the bone was sent to Pathology for analysis to rule out carcinoma and to evaluate for osteomyelitis. Half the soft tissue and half the bone was sent to Microbiology for analysis to rule out persistent infection. A positive culture may necessitate antibiotic modification. A size 15 Sathya drain was placed posteromedially and secured to the skin with 3-0 Nylon suture. I then sprayed Zenon absorbable hemostat into the wound to minimize seroma. The tourniquet was released after 69 minutes. A small amount of bleeding was controlled with hemostasis. No vascular compromise was seen on the skin flaps. I then readvanced the muscle flap over the tibial bone and secured it to the anterior fascial flap with 2-0 Vicryl figure of eight interrupted sutures. The deep subcutaneous tissue and fascia was approximated with 2-0 Vicryl figure of eight interrupted sutures. The deep dermis and subcutaneous tissue was approximated with 2-0 Vicryl interrupted sutures. The skin was approximated with 3-0 Nylon vertical mattress interrupted sutures and simple interrupted sutures. Antibiotic ointment was applied to the suture line followed by xeroform gauze and Kerlix gauze and ABD pads followed by a compression CONCHIS wrap.Patient tolerated the procedure well and was sent to PACU in satisfactory condition. Patient tolerated the procedure well and was sent to PACU in satisfactory condition. Patient will be sent upstairs for continued postop care. Grafts/Implants Used: None. - Complications None. - Admit VTE Documentation VTE Present on Admission: No VTE Mechan Device Prophylaxis: SCD's VTE Pharm Prophylaxis ordered?: Yes Code Visit Surgery Charges CPT - 72366 ICD-10 - T87.44, T87.81, A49.02, M86.9, Z89.512, E11.9 45433 M86.9, T87.44, T87.81, A49.02, Z89.512, E11.9 37214 T87.44, T87.81, A49.02, M86.9, Z89.512, E11.9 27659 T87.44, T87.81, A49.02, M86.9, Z89.512, E11.9
[2017-10-28] MEDS: Glucerna Shake 120 ML LIQUID PO ×2 (17:37→21:48)
[2017-10-28] MEDS: Gabapentin 800 MG Tablet PO ×2 (17:38→21:38)
[2017-10-28] MEDS: oxyCODONE 5 MG Tablet 10 MG PO ×2 (17:40→21:37)
[2017-10-28] MEDS: Insulin Lispro 100 UNIT/ML INSULN.PEN 20 UNIT SC (17:43)
[2017-10-28] MEDS: Pantoprazole Sodium 20 MG Tablet PO (21:38)
[2017-10-28] MEDS: Atorvastatin Calcium 40 MG Tablet PO (21:38)
[2017-10-28] MEDS: Docusate Sodium 100 MG Capsule PO (21:38)
[2017-10-28] MEDS: Insulin Lispro 100 UNIT/ML INSULN.PEN SC (21:48)
[2017-10-28] MEDS: Insulin NPH Human 100 UNITS/ML PEN 50 UNITS SC (21:49)
[2017-10-28 23:15] LABS: Bedside Glucose 168 mg/dL (70-110)
[2017-10-29] MEDS: HYDROmorphone 1 MG/ML Syringe IV ×5 (00:28→18:28)
[2017-10-29] MEDS: Ondansetron 4 MG/2 ML Vial IV (00:37)
[2017-10-29] MEDS: diazePAM 5 MG Tablet PO ×3 (02:38→23:45)
[2017-10-29 03:14] VITALS: BP 154/81; PULSE 88; RESP 18; TEMP 36.9; O2SAT 98
[2017-10-29] MEDS: oxyCODONE 5 MG Tablet 10 MG PO ×3 (03:19→23:46)
[2017-10-29] MEDS: Lactated Ringers 1,000 ML 60 ML IV ×2 (05:24→23:47)
[2017-10-29] MEDS: Enoxaparin 40 MG/0.4 ML Syringe SC (05:25)
[2017-10-29 05:43] LABS: Hematocrit 35.7 % (40-54); Mean Corp Hgb Conc 30.8 g/gl (32-36); Mean Corpuscular Hgb 27.2 pg (27.0-32.0); Mean Corpuscular Volume 88.1 fL (80-94); Mean Platelet Vol. 9.2 fl (6.2-12.0); Platelet Count 276 K/mm3 (150-450); RBC Distribution Width CV 14.9 % (11.6-14.6); RBC Distribution Width SD 47.2 fl (35.1-43.9); Red Blood Count 4.05 M/mm3 (4.6-6.2); White Blood Count 8.8 K/mm3 (4.4-11.0)
[2017-10-29 05:47] LABS: Anion Gap 7 (5-15); BUN 25 mg/dL (7-18); BUN/Creat Ratio 21.4 RATIO (10-20); Calcium,Total 8.7 mg/dL (8.5-10.1); Chloride 102 mmol/L (98-107); Creatinine, Serum 1.17 mg/dL (0.70-1.30); EST Glomerular Filtration Rate 67 mL/min (>60); Erythrocyte Sedimentation Rate 22 mm/hr (0-20); Est Glom Filt Rate - Afr Amer 81 mL/min (>60); Estimated Creatinine Clearance 79.24 ml/min; Glucose 175 mg/dL (74-106); Potassium 4.6 mmol/L (3.5-5.1); Prealbumin 28.3 mg/dL (20.0-40.0); Scan Indicated on CBC? Y/N NO; Sodium Level 140 mmol/L (136-145)
[2017-10-29] MEDS: Piperacil/Tazobactam 3.375 GM/50 ML ML IV ×3 (07:13→21:18)
[2017-10-29 07:30] VITALS: O2SAT 98
[2017-10-29 08:09] LABS: Hemoglobin A1c 6.7 % (4.2-6.3)
--- NOTE | 2017-10-29 08:09 | PN_ITS ---
Subjective: Patient is a 62-year-old gentleman with multiple comorbidities including left BKA by Dr. Rodriguez on 06/25/2027. Admitted following dehiscence of his left BKA stump. Patient underwent dehiscence amputation stump ulcer and partial ostectomy tibia for osteomyelitis. 2. Reconstruction with re-advancement muscle flap and bipedicle periosteal advancement flap and secondary wound closure revision on 10/28/[address] Rodriguez Objective: GENERAL: cooperative HEENT: Clear conjunctiva, NECK; supple, no distended JVD. CHEST: Clear to auscultation bilaterally, HEART: Regular S1 S2, no audible murmurs ABDOMEN: soft,normoactive bowel sounds, RECTAL: deferred EXTREMITIES: L BKA stump in surgical dressing BURRER MACHINE: Awake, no lateralizing signs. SKIN: As Described above Vitals/I&O's: Vital Signs Temp Pulse Resp BP Pulse Ox 98.5 F 88 18 154/81 H 98 10/29/17 03:14 10/29/17 03:14 10/29/17 03:14 10/29/17 03:14 10/29/17 07:30 Oxygen Flow Rate (L/min) 2 Oxygen Delivery Method Nasal Cannula Weight: 127.006 kg Body Mass Index (BMI) 34.9 Finger Stick Blood Glucose 168 Intake and Output for Last 24 Hours 10/27/17 10/28/17 10/29/17 23:59 23:59 23:59 Intake Total 3010 / 3010 1740 / 1740 Output Total 65 / 65 1120 / 1120 Balance 2945 / 2945 620 / 620 Microbiology Past 72 Hours 10/28/17 11:18 Bone - Other Gram Stain - Final 10/28/17 11:18 Tissue - Other Gram Stain - Final Laboratory Results 10/28/17 09:40: POC Glucose 172 H 10/28/17 13:29: POC Glucose 168 H 10/28/17 17:02: POC Glucose 140 H 10/28/17 21:43: POC Glucose 168 H 10/29/17 05:05: WBC 8.8, RBC 4.05 L, Hgb 11.0 L, Hct 35.7 L, MCV 88.1, MCH 27.2 , MCHC 30.8 L, RDW 14.9 H, RDW Differential 47.2 H, Plt Count 276, MPV 9.2, ESR 22 H 10/29/17 05:05: Sodium 140, Potassium 4.6, Chloride 102, Carbon Dioxide 31.0, Anion Gap 7, BUN 25 H, Creatinine 1.17, Estim Creat Clear Calc 79.24, Est GFR ( MDRD) Af Amer 81, Est GFR (MDRD) Non-Af 67, BUN/Creatinine Ratio 21.4 H, Glucose 175 H, Calcium 8.7, C-React Prot Ext Range 43.80 H, Prealbumin 28.3 10/29/17 05:05: Hemoglobin A1c Pending Current Medications Atorvastatin Calcium (Lipitor) 40 mg PO QHS [facility] Last Admin: 10/28/17 21:38 Dose: 40 mg Bupropion HCl (Wellbutrin Xl) 150 mg PO DAILY [facility] Citalopram Hydrobromide (Celexa) 40 mg PO DAILY [facility] Diazepam (Valium) 5 mg PO 4X/DAY PRN PRN PRN Reason: SPASMS Last Admin: 10/29/17 02:38 Dose: 5 mg Docusate Sodium (Colace) 100 mg PO BID [facility] Last Admin: 10/28/17 21:38 Dose: 100 mg Enoxaparin Sodium (Lovenox) 40 mg SC DAILY@0600 [facility] Last Admin: 10/29/17 05:25 Dose: 40 mg Gabapentin (Neurontin) 800 mg PO 4X/DAYCM [facility] Last Admin: 10/28/17 21:38 Dose: 800 mg Hydralazine HCl (Apresoline Iv) 10 mg IV Q4H PRN PRN PRN Reason: SBP > 160 Hydromorphone HCl (Dilaudid Inj) 1 - 2 mg IV Q3H PRN PRN PRN Reason: SEVERE PAIN (6-10/10) Last Admin: 10/29/17 06:38 Dose: 2 mg Lactated Ringer's () 1,000 mls @ 60 mls/hr IV .[id number] [facility] Last Admin: 10/29/17 05:24 Dose: 60 mls/hr Piperacillin Sod/Tazobactam Sod (Zosyn) 3.375 gm in 50 mls @ 12.5 mls/hr IV Q8 [facility] Last Admin: 10/29/17 07:13 Dose: 12.5 mls/hr Vancomycin IV Pharmacy to Dose (1 ea/ Sodium Chloride) 500 mls @ 250 mls/hr IV X1 PRN; Protocol PRN Reason: Rx to Dose Vancomycin HCl 1,250 mg/ (Sodium Chloride) 275 mls @ 167 mls/hr IV Q12H [facility] Last Admin: 10/29/17 05:24 Dose: 167 mls/hr Insulin Human Lispro (Humalog Kwikpen (Bkc)) 0 unit SC ACHS SWATI PRN Reason: Protocol Last Admin: 10/28/17 21:48 Dose: 1 u Insulin Human Lispro (Humalog Kwikpen (Bkc)) 20 unit SC TIDCM [facility] Last Admin: 10/28/17 17:43 Dose: 20 units Insulin Human NPH (Humulin N (Bk)) 50 units SC BID [facility] Last Admin: 10/28/17 21:49 Dose: 50 u Losartan Potassium (Cozaar) 100 mg PO DAILY [facility] Nutritional Formula (Greg - Reeves Flavor) 1 packet PO BIDCM [facility] Last Admin: 10/28/17 17:38 Dose: 1 packet Nutritional Formula (Lactose Free) (Glucerna Shake) 120 ml PO 4X/DAY [facility] Last Admin: 10/28/17 21:48 Dose: 120 ml Ondansetron HCl (Zofran) 4 mg IV Q6H PRN PRN PRN Reason: NAUSEA Last Admin: 10/29/17 00:37 Dose: 4 mg Oxycodone HCl (Oxyir) 10 mg PO Q4H PRN PRN PRN Reason: SEVERE PAIN (6-10/10) Last Admin: 10/29/17 03:19 Dose: 10 mg Pantoprazole Sodium (Protonix) 20 mg PO BID [facility] Last Admin: 10/28/17 21:38 Dose: 20 mg Polysaccharide Iron Complex (Ferrex 150) [facility] Promethazine HCl (Phenergan Tablet) 25 mg PO Q4H PRN PRN PRN Reason: NAUSEA/VOMITING Sodium Chloride () 5 - 30 ml IV UD PRN PRN Reason: SALINE FLUSH Last Admin: 10/28/17 15:04 Dose: 10 ml Triamterene/HCTZ (Dyazide (G)) 1 cap PO DAILY [facility] Medical Necessity - Tobacco Use Smoking Status: Former smoker Tobacco Use: Non-smoker Assessment/Plan All Active Problems (Last Reviewed 09/01/17 @ 13:36 by Shanique Michelle) Infection of amputation stump of left lower extremity (Acute) Dehiscence of amputation stump (Acute) Acute osteomyelitis of left foot (Acute) Non-pressure chronic ulcer of left heel and midfoot with bone involvement without evidence of necrosis (Acute) Cellulitis (Resolved) Cellulitis and abscess of toe of left foot (Resolved) Cellulitis of great toe, left (Resolved) Cellulitis of leg (Resolved) Cellulitis of right foot (Resolved) Deep venous thrombosis (Resolved) Diabetic toe ulcer (Resolved) Fracture of left foot (Resolved) Hammer toe of right foot (Resolved) Healed ulcer of left foot on examination (Resolved) Lymphangitis (Resolved) Non-pressure chronic ulcer of other part of right foot with fat layer exposed ( Resolved) Right foot infection (Resolved) Sepsis (Resolved) Skin ulcer of left great toe with fat layer exposed (Resolved) Toe osteomyelitis, right (Resolved) Ulcer of right leg (Resolved) Ulcer of right lower extremity with fat layer exposed (Resolved) Ulcer of right lower extremity with fat layer exposed (Resolved) Ulcer of right second toe with fat layer exposed (Resolved) Ulcer of toe of right foot (Resolved) Ulcer with necrosis of muscle (Resolved) Wound of left leg (Resolved) Wound of right leg (Resolved) Patient is a 62-year-old gentleman with multiple comorbidities including left BKA by Dr. Rodriguez on 06/25/2027. Admitted following traumatic dehiscence of his left BKA stump. Patient underwent excision of his dehiscence amputation stump ulcer and partial ostectomy tibia for osteomyelitis. 2. Reconstruction with re -advancement muscle flap and bipedicle periosteal advancement flap and secondary wound closure revision on 10/28/[address] Rodriguez 1. Status post excision of his dehiscence amputation stump ulcer and partial ostectomy tibia for osteomyelitis. 2. Reconstruction with re-advancement muscle flap and bipedicle periosteal advancement flap and secondary wound closure revision on 10/28/[address] Rodriguez patient initiated on vancomycin as well as Zosyn following his surgery 2. Hypertension-blood pressure controlled, home medications continued with dose adjustment as needed 3. 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 Managed with long-acting insulin with Accu-Cheks before meals and at bedtime with sliding scale coverage 4. Chronic pain syndrome 5. Obstructive sleep apnea patient is on CPAP at night 6. Depression with anxiety patient is on SSRI Celexa as well as Wellbutrin 7. Obesity with BMI of 40.5 weight loss advised 8. Anemia; secondary to anemia of chronic disorder; monitoring H&H 9. Dyslipidemia-patient is on statin therapy, continued at home dose 10. GERD on PPI 11. DVT prophylaxis on Lovenox Active Medications Atorvastatin Calcium (Lipitor) 40 mg PO QHS [facility] Last Admin: 10/28/17 21:38 Dose: 40 mg Bupropion HCl (Wellbutrin Xl) 150 mg PO DAILY [facility] Citalopram Hydrobromide (Celexa) 40 mg PO DAILY [facility] Diazepam (Valium) 5 mg PO 4X/DAY PRN PRN PRN Reason: SPASMS Last Admin: 10/29/17 02:38 Dose: 5 mg Docusate Sodium (Colace) 100 mg PO BID [facility] Last Admin: 10/28/17 21:38 Dose: 100 mg Enoxaparin Sodium (Lovenox) 40 mg SC DAILY@0600 [facility] Last Admin: 10/29/17 05:25 Dose: 40 mg Gabapentin (Neurontin) 800 mg PO 4X/DAYCM [facility] Last Admin: 10/28/17 21:38 Dose: 800 mg Hydralazine HCl (Apresoline Iv) 10 mg IV Q4H PRN PRN PRN Reason: SBP > 160 Hydromorphone HCl (Dilaudid Inj) 1 - 2 mg IV Q3H PRN PRN PRN Reason: SEVERE PAIN (6-10/10) Last Admin: 10/29/17 06:38 Dose: 2 mg Lactated Ringer's () 1,000 mls @ 60 mls/hr IV .[id number] [facility] Last Admin: 10/29/17 05:24 Dose: 60 mls/hr Piperacillin Sod/Tazobactam Sod (Zosyn) 3.375 gm in 50 mls @ 12.5 mls/hr IV Q8 [facility] Last Admin: 10/29/17 07:13 Dose: 12.5 mls/hr Vancomycin IV Pharmacy to Dose (1 ea/ Sodium Chloride) 500 mls @ 250 mls/hr IV X1 PRN; Protocol PRN Reason: Rx to Dose Vancomycin HCl 1,250 mg/ (Sodium Chloride) 275 mls @ 167 mls/hr IV Q12H [facility] Last Admin: 10/29/17 05:24 Dose: 167 mls/hr Insulin Human Lispro (Humalog Kwikpen (Bkc)) 0 unit SC ACHS [facility] PRN Reason: Protocol Last Admin: 10/28/17 21:48 Dose: 1 u Insulin Human Lispro (Humalog Kwikpen (Bkc)) 20 unit SC TIDCM [facility] Last Admin: 10/28/17 17:43 Dose: 20 units Insulin Human NPH (Humulin N (Bk)) 50 units SC BID [facility] Last Admin: 10/28/17 21:49 Dose: 50 u Losartan Potassium (Cozaar) 100 mg PO DAILY [facility] Nutritional Formula (Greg - Reeves Flavor) 1 packet PO BIDCM [facility] Last Admin: 10/28/17 17:38 Dose: 1 packet Nutritional Formula (Lactose Free) (Glucerna Shake) 120 ml PO 4X/DAY [facility] Last Admin: 10/28/17 21:48 Dose: 120 ml Ondansetron HCl (Zofran) 4 mg IV Q6H PRN PRN PRN Reason: NAUSEA Last Admin: 10/29/17 00:37 Dose: 4 mg Oxycodone HCl (Oxyir) 10 mg PO Q4H PRN PRN PRN Reason: SEVERE PAIN (6-10/10) Last Admin: 10/29/17 03:19 Dose: 10 mg Pantoprazole Sodium (Protonix) 20 mg PO BID [facility] Last Admin: 10/28/17 21:38 Dose: 20 mg Polysaccharide Iron Complex (Ferrex 150) [facility] Promethazine HCl (Phenergan Tablet) 25 mg PO Q4H PRN PRN PRN Reason: NAUSEA/VOMITING Sodium Chloride () 5 - 30 ml IV UD PRN PRN Reason: SALINE FLUSH Last Admin: 10/28/17 15:04 Dose: 10 ml Triamterene/HCTZ (Dyazide (G)) 1 cap PO DAILY [facility] Code Visit Inpatient E&M: 48079 Subs Hosp L3
[2017-10-29 08:36] VITALS: BP 150/75; PULSE 101; RESP 18; TEMP 37.1; O2SAT 93
[2017-10-29 08:46] LABS: Bedside Glucose 168 mg/dL (70-110)
[2017-10-29] MEDS: Insulin Lispro 100 UNIT/ML INSULN.PEN SC ×3 (08:51→21:19)
[2017-10-29] MEDS: Iron Polysaccharide Complex 150 MG CAPSULE PO (08:51)
[2017-10-29] MEDS: Gabapentin 800 MG Tablet PO ×4 (08:52→21:18)
[2017-10-29] MEDS: Docusate Sodium 100 MG Capsule PO ×2 (08:52→21:18)
[2017-10-29] MEDS: Insulin Lispro 100 UNIT/ML INSULN.PEN 20 UNIT SC ×3 (08:52→18:20)
[2017-10-29] MEDS: Citalopram 20 MG Tablet 40 MG PO (08:52)
[2017-10-29] MEDS: Losartan Potassium 100 MG Tablet PO (08:53)
[2017-10-29] MEDS: Pantoprazole Sodium 20 MG Tablet PO ×2 (08:53→21:18)
[2017-10-29] MEDS: Triamterene 37.5MG/Hctz 25MG Capsule 1 CAP PO (08:53)
[2017-10-29] MEDS: Glucerna Shake 120 ML LIQUID PO ×4 (08:53→21:18)
[2017-10-29] MEDS: buPROPion (XL) 150 MG TABLET.XL PO (08:56)
[2017-10-29] MEDS: Insulin NPH Human 100 UNITS/ML PEN 50 UNITS SC ×2 (11:34→21:19)
[2017-10-29 11:40] LABS: Bedside Glucose 247 mg/dL (70-110)
[2017-10-29] MEDS: 0.9% NaCl Peripheral Flush Adult/Peds IV ×2 (11:43→14:38)
--- NOTE | 2017-10-29 11:50 | CASEMGMT ---
Face to Face with patient for initial transition planning/care coordination assessment. MARY CLEMENTE introduced self and role at [facility], pt voices understanding and consents to assessment at this time. Pt is sitting up in bed in no distress at this time. Pt is A/Ox4 at this time and answers all questions appropriately at this time. Care providers, pharmacy, and demographics verified. See attached link. Pt voices no further concerns/needs at this time. Advised pt to ask for CM if any further questions/concerns/needs arise, voices understanding. CM to follow for any further discharge planning/needs. Referral to [facility] for possible TCU placement, voices understanding. Viky HERNANDEZ CM updated on all, voices understanding. PLAN: MONI Dean RN, CM
--- NOTE | 2017-10-29 12:15 | PCM.HP.ID ---
Problem List (1) Dehiscence of amputation stump Status: Acute Reason for Consult: wound dehiscence Consulted by: Dr. 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 Course was complicated by fall with wound dehiscence, wound cx 08/04 showed MRSE and burkholderia, so given 6 week course of vanc/zosyn. Has been stable off abx, but had fall again at home. Admitted 10/28 for planned debridement and closure by Dr. Rodriguez. Started on vanc/zosyn post-op while surg cx pending. Feeling ok, no fever, no n/v/d. Full ROS performed and neg except as noted above. 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) Osteomyelitis (Chronic) Personal history of Methicillin resistant Staphylococcus aureus infection (Chronic) History of left below knee amputation (Chronic) 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) Obstructive sleep apnea (Chronic) Hyperlipidemia (Chronic) Chronic pain (Chronic) Diabetes mellitus (Chronic) Venous insufficiency (Chronic) Hypertension (Chronic) Osteomyelitis (Chronic) Non-pressure chronic ulcer of left heel and midfoot with muscle involvement without evidence of necrosis (Chronic) Infection of left foot (Chronic) Hypersomnia (Chronic) Ulcer of midfoot with necrosis of muscle (Chronic) Nocturnal hypoxemia (Chronic) Abscess of left foot (Chronic) Diabetic ulcer of left foot with fat layer exposed (Chronic) Non-pressure chronic ulcer of left heel and midfoot with fat layer exposed (Chronic) 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 Venous insufficiency of both lower extremities (Chronic) S/P transmetatarsal amputation of foot (Chronic) 03/04/[address] 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) Hypertension (Chronic) Amputation of right foot with complication (Chronic) Type 2 diabetes mellitus with diabetic polyneuropathy (Chronic) Stasis dermatitis of both legs (Chronic) Sleep apnea (Chronic) CPAP 15 cm H20, 100% compliant Neuropathy (Chronic) secondary to diabetes Morbid obesity (Chronic) Anemia (Chronic) Dyslipidemia (Chronic) Left ventricular hypertrophy (Chronic) Chronic pain syndrome (Chronic) Depression (Chronic) Allergies/Adverse Reactions: Allergies cefepime Allergy (Verified 10/13/17 13:14) Hives sulfamethoxazole [From Octra] Allergy (Verified 10/13/17 13:14) turned red trimethoprim [From ] Allergy (Verified 10/13/17 13:14) turned red lisinopril Adverse Reaction (Verified 10/13/17 13:14) cough Home Medications: Ambulatory Orders Medication Instructions Recorded Metformin HCl [Glucophage] 1,000 mg PO BIDCM 11/15/14 Losartan Potassium [Cozaar] 100 mg PO DAILY 06/05/16 buPROPion XL [Wellbutrin Xl] 150 mg PO DAILY 01/21/17 Triamterene/Hydrochlorothiazid 1 each PO DAILY 03/24/17 [Triamterene-Hctz 37.5-25 mg Cp] Glucerna Shake 120 ml PO 4X/DAY 06/19/17 Atorvastatin Calcium [Lipitor] 40 mg PO QHS #30 tab 07/11/17 Iron Polysaccharide Complex 150 mg PO DAILYCM #30 cap 07/11/17 [Ferrex 150] Pantoprazole Sodium [Protonix] 20 mg PO BID #60 tab 07/11/17 Citalopram [Celexa] 40 mg PO DAILY 08/18/17 Empagliflozin [Jardiance] 25 mg PO DAILY 08/18/17 Gabapentin [Neurontin] 800 mg PO 4X/DAY 08/18/17 Ibuprofen [Motrin] 400 mg PO Q6H PRN PRN 08/18/17 Insulin NPH Human Isophane 50 unit SQ BID 08/18/17 [Novolin N] Insulin Regular, Human [Novolin R] 20 unit SC TIDCM 08/18/17 - Social History SMOKING STATUS:: Former smoker Vital Signs Temp Pulse Resp BP Pulse Ox 98.7 F 101 H 18 150/75 H 93 10/29/17 08:36 10/29/17 08:36 10/29/17 08:36 10/29/17 08:36 10/29/17 08:36 Oxygen Flow Rate (L/min) 2 Oxygen Delivery Method Room Air Weight: 127 kg Body Mass Index (BMI) 34.9 Finger Stick Blood Glucose 168 Microbiology Past 72 Hours 10/28/17 11:18 Gram Stain - Final Bone - Other Wound Culture - Preliminary GNR lactose boring machine operator horizontal 10/28/17 11:18 Gram Stain - Final Tissue - Other Wound Culture - Preliminary GNR lactose boring machine operator horizontal Laboratory Tests Past 24 Hrs 10/29/17 10/29/17 10/29/17 05:05 05:05 05:05 WBC 8.8 RBC 4.05 L Hgb 11.0 L Hct 35.7 L MCV 88.1 MCH 27.2 MCHC 30.8 L RDW 14.9 H RDW Differential 47.2 H Plt Count 276 MPV 9.2 ESR 22 H Sodium 140 Potassium 4.6 Chloride 102 Carbon Dioxide 31.0 Anion Gap 7 BUN 25 H Creatinine 1.17 Estim Creat Clear Calc 79.24 Est GFR (MDRD) Af Amer 81 Est GFR (MDRD) Non-Af 67 BUN/Creatinine Ratio 21.4 H Glucose 175 H Hemoglobin A1c 6.7 H Calcium 8.7 C-React Prot Ext Range 43.80 H Prealbumin 28.3 - Other Studies Radiology: [] reviewed Other Studies: [] Route of nutrition/ use of supplements: [] Nutritional Intake: [] IV Site: [] Tam Catheter: [] - Physical Exam General: Alert, Oriented x3, Cooperative, No apparent distress HEENT: Atraumatic, PERRLA, EOMI Neck: Supple, No Nodes Lungs: Clear to auscultation, Normal air movement Cardiovascular: Regular rate, Regular Rhythm, No murmurs Abdomen: Bowel Sounds Present, Soft, Non Tender, Non-Distended Extremities: No edema Skin: Incision - LLE wrapped IV Site: Peripheral, without redness Musculoskeletal: No Tenderness to Palpation of Joints or Extremities Neurological: Cranial nerves II-XII grossly intact - Assessment/Plan Antibiotics: [] Assessment/Plan: [] L BKA with wound dehiscence and h/o recurrent osteo, recent cxs with MRSE and burkholderia - now taken back to OR 10/[address] Rodriguez for debridement. Surg cx pending. On empiric vanc/zosyn for now. Will follow, thank you
--- NOTE | 2017-10-29 12:22 | CASEMGMT ---
SW spoke w/CM, pt may want to consider going to TCU at discharge. SW called and left a message inquiring about bed availability. AL Cancino, RN TESTING
[2017-10-29 14:26] VITALS: BP 134/63; PULSE 93; RESP 18; TEMP 37.6; O2SAT 95
[2017-10-29 14:45] VITALS: RESP 18
[2017-10-29 17:01] LABS: Bedside Glucose 138 mg/dL (70-110)
--- NOTE | 2017-10-29 17:15 | OP.PCM_ITS ---
Report of Operation Date of Procedure: 10/28/17 Pre-Operative Diagnosis: 1. Dehiscence of left BKA stump. 2. Infection of left BKA stump. 3. Osteomyelitis. 4. MRSA. 5. Diabetes mellitus. 6. Former smoker. Post-Operative Diagnosis: Same. Surgery/Procedure Performed:: 1. Surgical preparation left BKA stump with excision dehiscence amputation stump ulcer and partial ostectomy tibia for osteomyelitis. 2. Reconstruction with re-advancement muscle flap and bipedicle periosteal anterior fascial advancement flap and secondary wound closure revision. Description of Surgical Findings:: 62 year old man presents with a traumatic disruption left BKA stump. He underwent the left BKA on 06/24/17 because of long standing infections with MRSA along with osteomyelitis and Charcot arthropathy. While he was recovering from the left BKA, he fell on his stump and it broke open. He has been treating the disruption with the VAC. Wound culture from 08/04/17 showed Burkholderia cepacia and MRSE. He was treated with IV Vancomycin and Zosyn for 6 weeks. The wound has stabilized with decreased swelling. He presents today for further operative debridement and partial ostectomy for osteomyelitis and secondary wound closure revision and possible readvancement of the muscle flap. Patient is aware that if the decreased swelling is not enough and any attempts at wound closure at this time would place the flap under too much tension, than I would hold off on trying to close the stump at this time and just proceed with the operative debridement and wait several more weeks before deciding on another attempt at stump wound closure. He is aware of that possibility and voices understanding. Patient was informed of the risks and complications of the procedure including alternatives to surgery. These were discussed with the patient personally. Patient voices understanding and wishes to proceed. Total tourniquet time - 69 minutes. I used Zenon absorbable hemostat. Reference Number - [id number]. Lot Number - [id number]. Expiration - December 14, 2021. financial accounting analyst: Adam Bolaños. Type of Anesthesia:: General Specimen's removed: 1. Dehiscence left BKA stump tissue to Pathology and Microbiology. 2. Left BKA stump tibial bone to Pathology and Microbiology. Drains: Sathya. Estimated Blood Loss (mL): 25 ml. Description of Procedure: Patient was taken to OR in supine position and was placed under general anesthesia. The left BKA stump was prepped and draped in the usual fashion. SCD was placed for DVT prophylaxis on the right leg. Perioperative antibiotics were given intravenously. Using xylocaine with epinephrine, the left BKA stump ulcer was infiltrated. The tourniquet was elevated to 300 mmHg. Incision was made through the previous incision, and the ulcer was excised down to the muscle. I freed up the soleus muscle and it from the posterior flap which included the gastrocnemius muscle and fascia. these muscles helped to advance these tissue layers independently. This separation helped to decrease the tension of the closure over the bone as well as the skin closure. I extended the previous incision posteriorly as I dissected more of the muscle flap to aid in re-advancement of the muscle over the tibial bone. I also freed up the anterior fascia and the fascia from the skin to help with closure over the bone as well as the skin closure. I then debrided the granulation tissue over the tibia. Using an osteotome and a mallet, I proceeded with a partial ostectomy for osteomyelitis. I beveled the tibial bone anteriorly to decrease the sharp edge of the bone anteriorly. Using an oscillating lobito, I smoothed out the remaining bony edges which was followed by a rasp. I thought I would have to remove more bone than I actually did, but over the partial ostectomy, I felt I could advance the soft tissue flaps with minimal tension. The periosteal anterior fascia was a little short with regard to soft tissue coverage. I was able to advance the soleus muscle to the periosteal anterior fascia with a small area of exposed bone remaining. Therefore, I mobilized a bipedicle flap in order the advance a periosteal anterior fascial flap to cover the tibial bone over the stump with the soleus muscle. I transferred the exposed bone inferiorly which has the greatest amount of tension in the prosthesis to an area of bone proximally and anteriorly where the tension from the prosthesis is not present. The wound was irrigated with saline. Half the soft tissue and half the bone was sent to Pathology for analysis to rule out carcinoma and to evaluate for osteomyelitis. Half the soft tissue and half the bone was sent to Microbiology for analysis to rule out persistent infection. A positive culture may necessitate antibiotic modification. A size 15 Sathya drain was placed posteromedially and secured to the skin with 3-0 Nylon suture. I then sprayed Zenon absorbable hemostat into the wound to minimize seroma. The tourniquet was released after 69 minutes. A small amount of bleeding was controlled with hemostasis. No vascular compromise was seen on the skin flaps. I then readvanced the muscle flap over the tibial bone and secured it to the anterior fascial flap with 2-0 Vicryl figure of eight interrupted sutures. The deep subcutaneous tissue and fascia was approximated with 2-0 Vicryl figure of eight interrupted sutures. The deep dermis and subcutaneous tissue was approximated with 2-0 Vicryl interrupted sutures. The skin was approximated with 3-0 Nylon vertical mattress interrupted sutures and simple interrupted sutures. Antibiotic ointment was applied to the suture line followed by xeroform gauze and Kerlix gauze and ABD pads followed by a compression CONCHIS wrap.Patient tolerated the procedure well and was sent to PACU in satisfactory condition. Patient tolerated the procedure well and was sent to PACU in satisfactory condition. Patient will be sent upstairs for continued postop care. Grafts/Implants Used: None. - Complications None. - Admit VTE Documentation VTE Present on Admission: No VTE Mechan Device Prophylaxis: SCD's VTE Pharm Prophylaxis ordered?: Yes Code Visit Surgery Charges CPT - 92573 ICD-10 - T87.44, T87.81, A49.02, M86.9, Z89.512, E11.9 45627 M86.9, T87.44, T87.81, A49.02, Z89.512, E11.9 08728 T87.44, T87.81, A49.02, M86.9, Z89.512, E11.9 98340 T87.44, T87.81, A49.02, M86.9, Z89.512, E11.9
[2017-10-29 21:03] VITALS: BP 140/74; PULSE 99; RESP 18; TEMP 37.6; O2SAT 95
[2017-10-29] MEDS: Atorvastatin Calcium 40 MG Tablet PO (21:18)
[2017-10-29 22:06] LABS: Bedside Glucose 176 mg/dL (70-110)
--- NOTE | 2017-10-29 23:16 | PCM.PN.SRG ---
Subjective: Postop #1 Patient complains of incisional pain. He was sitting at the edge of the bed with his stump dependent. - Physical Exam General: - - patient was a little sleepy. HEENT: PERRLA, EOMI Oral: Moist Mucosa Neck: Supple Skin: Incision - left BKA stump dressing dry. Neurological: Cranial nerves II-XII grossly intact Psych/Mental Status: Normal Affect, Appropriate Vital Signs Temp Pulse Resp BP Pulse Ox 99.6 F H 99 18 140/74 H 95 10/29/17 21:03 10/29/17 21:03 10/29/17 21:03 10/29/17 21:03 10/29/17 21:03 Oxygen Flow Rate (L/min) 2 Oxygen Delivery Method Nasal Cannula Weight: 279 lb 15.793 oz Body Mass Index (BMI) 34.9 Finger Stick Blood Glucose 168 Intake and Output for Last 24 Hours 10/28/17 10/29/17 10/30/17 23:59 23:59 23:59 Intake Total 3010 / 3010 5993 / 5993 Output Total 65 / 65 2370 / 2370 Balance 2945 / 2945 3623 / 3623 Drainage 65 ml yesterday. Microbiology Past 72 Hours 10/28/17 11:18 Gram Stain - Final Bone - Other Wound Culture - Preliminary GNR lactose pharmacologist 10/28/17 11:18 Gram Stain - Final Tissue - Other Wound Culture - Preliminary GNR lactose pharmacologist Laboratory Tests Past 24 Hrs 10/29/17 10/29/17 10/29/17 05:05 05:05 05:05 WBC 8.8 RBC 4.05 L Hgb 11.0 L Hct 35.7 L MCV 88.1 MCH 27.2 MCHC 30.8 L RDW 14.9 H RDW Differential 47.2 H Plt Count 276 MPV 9.2 ESR 22 H Sodium 140 Potassium 4.6 Chloride 102 Carbon Dioxide 31.0 Anion Gap 7 BUN 25 H Creatinine 1.17 Estim Creat Clear Calc 79.24 Est GFR (MDRD) Af Amer 81 Est GFR (MDRD) Non-Af 67 BUN/Creatinine Ratio 21.4 H Glucose 175 H Hemoglobin A1c 6.7 H Calcium 8.7 C-React Prot Ext Range 43.80 H Prealbumin 28.3 POC Glucose 10/29/17 10/29/17 10/29/17 21:17 16:52 11:32 POC Glucose 176 H 138 H 247 H 10/29/17 08:33 POC Glucose 168 H 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 involvement without evidence of necrosis (Acute) Cellulitis (Resolved) Cellulitis and abscess of toe of left foot (Resolved) Cellulitis of great toe, left (Resolved) Cellulitis of leg (Resolved) Cellulitis of right foot (Resolved) Deep venous thrombosis (Resolved) Diabetic toe ulcer (Resolved) Fracture of left foot (Resolved) Hammer toe of right foot (Resolved) Healed ulcer of left foot on examination (Resolved) Lymphangitis (Resolved) Non-pressure chronic ulcer of other part of right foot with fat layer exposed (Resolved) Right foot infection (Resolved) Sepsis (Resolved) Skin ulcer of left great toe with fat layer exposed (Resolved) Toe osteomyelitis, right (Resolved) Ulcer of right leg (Resolved) Ulcer of right lower extremity with fat layer exposed (Resolved) Ulcer of right lower extremity with fat layer exposed (Resolved) Ulcer of right second toe with fat layer exposed (Resolved) Ulcer of toe of right foot (Resolved) Ulcer with necrosis of muscle (Resolved) Wound of left leg (Resolved) Wound of right leg (Resolved) 1. Dehiscence of left BKA stump. 2. Infection of left BKA stump. 3. Osteomyelitis. 4. MRSA. 5. Diabetes mellitus. 6. Former smoker. Dressing is dry. Will change dressing in the morning. Continue IV Vancomycin and Zosyn. Operative culture thus far shows Gram negative jon lactose pharmacologist. Discussed with the patient the importance of keeping his stump elevated. I saw him sitting at the edge of the bed with his stump dependent. It can lead to extra swelling which can compromise healing of the stump. He voiced understanding. HgbA1c is 6.7. Prealbumin was 28.3. Encourage nutritional supplementation with protein to help the healing process.
--- NOTE | 2017-10-29 23:53 | NURSING ---
Patient refused his own cpap for the evening. He just wanted to wear 2L o2 NC.
--- NOTE | 2017-10-30 00:16 | PN.SURG_ITS ---
Subjective: Postop #1 Patient complains of incisional pain. He was sitting at the edge of the bed with his stump dependent. - Physical Exam General: - - patient was a little sleepy. HEENT: PERRLA, EOMI Oral: Moist Mucosa Neck: Supple Skin: Incision - left BKA stump dressing dry. Neurological: Cranial nerves II-XII grossly intact Psych/Mental Status: Normal Affect, Appropriate Vital Signs Temp Pulse Resp BP Pulse Ox 99.6 F H 99 18 140/74 H 95 10/29/17 21:03 10/29/17 21:03 10/29/17 21:03 10/29/17 21:03 10/29/17 21:03 Oxygen Flow Rate (L/min) 2 Oxygen Delivery Method Nasal Cannula Weight: 279 lb 15.793 oz Body Mass Index (BMI) 34.9 Finger Stick Blood Glucose 168 Intake and Output for Last 24 Hours 10/28/17 10/29/17 10/30/17 23:59 23:59 23:59 Intake Total 3010 / 3010 5993 / 5993 Output Total 65 / 65 2370 / 2370 Balance 2945 / 2945 3623 / 3623 Drainage 65 ml yesterday. Microbiology Past 72 Hours 10/28/17 11:18 Gram Stain - Final Bone - Other Wound Culture - Preliminary GNR lactose parole supervisor 10/28/17 11:18 Gram Stain - Final Tissue - Other Wound Culture - Preliminary GNR lactose parole supervisor Laboratory Tests Past 24 Hrs 10/29/17 10/29/17 10/29/17 05:05 05:05 05:05 WBC 8.8 RBC 4.05 L Hgb 11.0 L Hct 35.7 L MCV 88.1 MCH 27.2 MCHC 30.8 L RDW 14.9 H RDW Differential 47.2 H Plt Count 276 MPV 9.2 ESR 22 H Sodium 140 Potassium 4.6 Chloride 102 Carbon Dioxide 31.0 Anion Gap 7 BUN 25 H Creatinine 1.17 Estim Creat Clear Calc 79.24 Est GFR (MDRD) Af Amer 81 Est GFR (MDRD) Non-Af 67 BUN/Creatinine Ratio 21.4 H Glucose 175 H Hemoglobin A1c 6.7 H Calcium 8.7 C-React Prot Ext Range 43.80 H Prealbumin 28.3 POC Glucose 10/29/17 10/29/17 10/29/17 21:17 16:52 11:32 POC Glucose 176 H 138 H 247 H 10/29/17 08:33 POC Glucose 168 H 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 involvement without evidence of necrosis (Acute) Cellulitis (Resolved) Cellulitis and abscess of toe of left foot (Resolved) Cellulitis of great toe, left (Resolved) Cellulitis of leg (Resolved) Cellulitis of right foot (Resolved) Deep venous thrombosis (Resolved) Diabetic toe ulcer (Resolved) Fracture of left foot (Resolved) Hammer toe of right foot (Resolved) Healed ulcer of left foot on examination (Resolved) Lymphangitis (Resolved) Non-pressure chronic ulcer of other part of right foot with fat layer exposed ( Resolved) Right foot infection (Resolved) Sepsis (Resolved) Skin ulcer of left great toe with fat layer exposed (Resolved) Toe osteomyelitis, right (Resolved) Ulcer of right leg (Resolved) Ulcer of right lower extremity with fat layer exposed (Resolved) Ulcer of right lower extremity with fat layer exposed (Resolved) Ulcer of right second toe with fat layer exposed (Resolved) Ulcer of toe of right foot (Resolved) Ulcer with necrosis of muscle (Resolved) Wound of left leg (Resolved) Wound of right leg (Resolved) 1. Dehiscence of left BKA stump. 2. Infection of left BKA stump. 3. Osteomyelitis. 4. MRSA. 5. Diabetes mellitus. 6. Former smoker. Dressing is dry. Will change dressing in the morning. Continue IV Vancomycin and Zosyn. Operative culture thus far shows Gram negative jon lactose parole supervisor. Discussed with the patient the importance of keeping his stump elevated. I saw him sitting at the edge of the bed with his stump dependent. It can lead to extra swelling which can compromise healing of the stump. He voiced understanding. HgbA1c is 6.7. Prealbumin was 28.3. Encourage nutritional supplementation with protein to help the healing process.
[2017-10-30 02:48] VITALS: BP 130/65; PULSE 84; RESP 18; TEMP 37.3; O2SAT 95
[2017-10-30] MEDS: diazePAM 5 MG Tablet PO ×3 (05:37→18:01)
[2017-10-30] MEDS: oxyCODONE 5 MG Tablet 10 MG PO ×4 (05:37→19:19)
[2017-10-30 05:53] LABS: Vancomycin, Trough Level 11.6 ug/mL (5.0-15.0)
[2017-10-30] MEDS: Enoxaparin 40 MG/0.4 ML Syringe SC (06:44)
[2017-10-30 07:42] VITALS: O2SAT 95
[2017-10-30 08:20] VITALS: BP 111/59; PULSE 72; RESP 16; TEMP 36.9; O2SAT 85; O2SAT 96
[2017-10-30] MEDS: Triamterene 37.5MG/Hctz 25MG Capsule 1 CAP PO (08:21)
[2017-10-30] MEDS: Pantoprazole Sodium 20 MG Tablet PO ×2 (08:21→21:28)
[2017-10-30] MEDS: Gabapentin 800 MG Tablet PO ×4 (08:21→21:28)
[2017-10-30] MEDS: HYDROmorphone 1 MG/ML Syringe IV ×2 (08:21→21:37)
[2017-10-30] MEDS: Docusate Sodium 100 MG Capsule PO (08:21)
[2017-10-30] MEDS: Citalopram 20 MG Tablet 40 MG PO (08:21)
[2017-10-30] MEDS: Iron Polysaccharide Complex 150 MG CAPSULE PO (08:21)
[2017-10-30] MEDS: Piperacil/Tazobactam 3.375 GM/50 ML ML IV ×3 (08:21→21:28)
[2017-10-30] MEDS: Losartan Potassium 100 MG Tablet PO (08:21)
[2017-10-30] MEDS: buPROPion (XL) 150 MG TABLET.XL PO (08:22)
[2017-10-30] MEDS: Insulin NPH Human 100 UNITS/ML PEN 50 UNITS SC ×2 (08:23→21:32)
[2017-10-30] MEDS: Glucerna Shake 120 ML LIQUID PO ×4 (08:26→21:28)
[2017-10-30] MEDS: Insulin Lispro 100 UNIT/ML INSULN.PEN 20 UNIT SC ×3 (08:26→17:04)
--- NOTE | 2017-10-30 08:50 | PCM.PN.HOSP ---
Subjective: Post Operative day 2: Seen pain is tolerable. Cultures obtained from surgery positive for gram-negative rods. Objective: GENERAL: cooperative HEENT: Clear conjunctiva, NECK; supple, no distended JVD. CHEST: Clear to auscultation bilaterally, HEART: Regular S1 S2, no audible murmurs ABDOMEN: soft,normoactive bowel sounds, RECTAL: deferred EXTREMITIES: L BKA stump in surgical dressing HISTORY TUTOR: Awake, no lateralizing signs. SKIN: As Described above Vitals/I&O's: Vital Signs Temp Pulse Resp BP Pulse Ox 99.1 F 84 18 130/65 H 95 10/30/17 02:48 10/30/17 02:48 10/30/17 02:48 10/30/17 02:48 10/30/17 02:48 Oxygen Flow Rate (L/min) 2 Oxygen Delivery Method Nasal Cannula Weight: 127 kg Body Mass Index (BMI) 34.9 Finger Stick Blood Glucose 168 Intake and Output for Last 24 Hours 10/28/17 10/29/17 10/30/17 23:59 23:59 23:59 Intake Total 3010 / 3010 5993 / 5993 800 / 800 Output Total 65 / 65 2370 / 2370 1620 / 1620 Balance 2945 / 2945 3623 / 3623 -820 / -820 Microbiology Past 72 Hours 10/28/17 11:18 Bone - Other Gram Stain - Final 10/28/17 11:18 Bone - Other Wound Culture - Preliminary GNR lactose universal grinder tool 10/28/17 11:18 Tissue - Other Gram Stain - Final 10/28/17 11:18 Tissue - Other Wound Culture - Preliminary GNR lactose universal grinder tool Laboratory Results 10/29/17 11:32: POC Glucose 247 H 10/29/17 16:52: POC Glucose 138 H 10/29/17 21:17: POC Glucose 176 H 10/30/17 05:15: Vancomycin Trough 11.6 Current Medications Atorvastatin Calcium (Lipitor) 40 mg PO QHS COUNTS [facility]CLUDE 234 BEDS AT THE [facility] Last Admin: 10/29/17 21:18 Dose: 40 mg Bupropion HCl (Wellbutrin Xl) 150 mg PO DAILY COUNTS INCLUDE 234 BEDS AT THE [facility] Last Admin: 10/30/17 08:22 Dose: 150 mg Citalopram Hydrobromide (Celexa) 40 mg PO DAILY COUNTS INCLUDE 234 BEDS AT THE [facility] Last Admin: 10/30/17 08:21 Dose: 40 mg Diazepam (Valium) 5 mg PO 4X/DAY PRN PRN PRN Reason: SPASMS Last Admin: 10/30/17 05:37 Dose: 5 mg Docusate Sodium (Colace) 100 mg PO BID COUNTS INCLUDE 234 BEDS AT THE [facility] Last Admin: 10/30/17 08:21 Dose: 100 mg Enoxaparin Sodium (Lovenox) 40 mg SC DAILY@0600 COUNTS INCLUDE 234 BEDS AT [facility] Last Admin: 10/30/17 06:44 Dose: 40 mg Gabapentin (Neurontin) 800 mg PO 4X/DAYCM COUNTS INCLUDE 234 BEDS AT THE [facility] Last Admin: 10/30/17 08:21 Dose: 800 mg Hydralazine HCl (Apresoline Iv) 10 mg IV Q4H PRN PRN PRN Reason: SBP > 160 Hydromorphone HCl (Dilaudid Inj) 1 - 2 mg IV Q3H PRN PRN PRN Reason: SEVERE PAIN (6-11/26) Last Admin: 10/30/17 08:21 Dose: 1 mg Lactated Ringer's () 1,000 mls @ 60 mls/hr IV .[id number] COUNTS INCLUDE 234 BEDS AT THE [facility] Last Admin: 10/29/17 23:47 Dose: 60 mls/hr Piperacillin Sod/Tazobactam Sod (Zosyn) 3.375 gm in 50 mls @ 12.5 mls/hr IV Q8 COUNTS INCLUDE 234 BEDS AT THE [facility] Last Admin: 10/30/17 08:21 Dose: 12.5 mls/hr Vancomycin IV Pharmacy to Dose (1 ea/ Sodium Chloride) 500 mls @ 250 mls/hr IV X1 PRN; Protocol PRN Reason: Rx to Dose Vancomycin HCl 1,250 mg/ (Sodium Chloride) 275 mls @ 167 mls/hr IV Q12H COUNTS INCLUDE 234 BEDS AT THE [facility] Last Admin: 10/30/17 05:37 Dose: 167 mls/hr Insulin Human Lispro (Humalog Kwikpen (Bkc)) 0 unit SC ACHS COUNTS INCLUDE 234 BEDS AT THE [facility] PRN Reason: Protocol Last Admin: 10/30/17 08:26 Dose: Not Given Insulin Human Lispro (Humalog Kwikpen (Bkc)) 20 unit SC TIDCM COUNTS INCLUDE 234 BEDS AT THE [facility] Last Admin: 10/30/17 08:26 Dose: 20 units Insulin Human NPH (Humulin N (Bkc)) 50 units SC BID COUNTS INCLUDE 234 BEDS AT THE [facility] Last Admin: 10/30/17 08:23 Dose: 50 u Losartan Potassium (Cozaar) 100 mg PO DAILY COUNTS INCLUDE 234 BEDS AT [facility] Last Admin: 10/30/17 08:21 Dose: 100 mg Nutritional Formula ([facility] - [place] Fl[facility]) [facility] Last Admin: 10/30/17 08:21 Dose: 1 packet Nutritional Formula (Lactose Free) (Glucerna Shake) 120 ml PO 4X/DAY COUNTS INCLUDE 234 BEDS AT [facility] Last Admin: 10/30/17 08:26 Dose: 120 ml Ondansetron HCl (Zofran) 4 mg IV Q6H PRN PRN PRN Reason: NAUSEA Last Admin: 10/29/17 00:37 Dose: 4 mg Oxycodone HCl (Oxyir) 10 mg PO Q4H PRN PRN PRN Reason: SEVERE PAIN (6-10/10) Last Admin: 10/30/17 05:37 Dose: 10 mg Pantoprazole Sodium (Protonix) 20 mg PO BID COUNTS INCLUDE 234 BEDS AT [facility] Last Admin: 10/30/17 08:21 Dose: 20 mg Polysaccharide Iron Complex ([facility]rex 150) [facility] Last Admin: 10/30/17 08:21 Dose: 150 mg Promethazine HCl (Phenergan Tablet) 25 mg PO Q4H PRN PRN PRN Reason: NAUSEA/VOMITING Sodium Chloride () 5 - 30 ml IV UD PRN PRN Reason: SALINE FLUSH Last Admin: 10/29/17 14:38 Dose: 10 ml Triamterene/HCTZ (Dyazide (G)) 1 cap PO DAILY COUNTS INCLUDE 234 BEDS AT THE [facility] Last Admin: 10/30/17 08:21 Dose: 1 cap 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 involvement without evidence of necrosis (Acute) Cellulitis (Resolved) Cellulitis and abscess of toe of left foot (Resolved) Cellulitis of great toe, left (Resolved) Cellulitis of leg (Resolved) Cellulitis of right foot (Resolved) Deep venous thrombosis (Resolved) Diabetic toe ulcer (Resolved) Fracture of left foot (Resolved) Hammer toe of right foot (Resolved) Healed ulcer of left foot on examination (Resolved) Lymphangitis (Resolved) Non-pressure chronic ulcer of other part of right foot with fat layer exposed (Resolved) Right foot infection (Resolved) Sepsis (Resolved) Skin ulcer of left great toe with fat layer exposed (Resolved) Toe osteomyelitis, right (Resolved) Ulcer of right leg (Resolved) Ulcer of right lower extremity with fat layer exposed (Resolved) Ulcer of right lower extremity with fat layer exposed (Resolved) Ulcer of right second toe with fat layer exposed (Resolved) Ulcer of toe of right foot (Resolved) Ulcer with necrosis of muscle (Resolved) Wound of left leg (Resolved) Wound of right leg (Resolved) Patient is a 62-year-old gentleman with multiple comorbidities including left BKA by Dr. Rodriguez on 06/25/2027. Admitted following traumatic dehiscence of his left BKA stump. Patient underwent excision of his dehiscence amputation stump ulcer and partial ostectomy tibia for osteomyelitis. 2. Reconstruction with re-advancement muscle flap and bipedicle periosteal advancement flap and secondary wound closure revision on 10/28/[address] Rodriguez 1. Status post excision of his dehiscence amputation stump ulcer and partial ostectomy tibia for osteomyelitis. 2. Reconstruction with re-advancement muscle flap and bipedicle periosteal advancement flap and secondary wound closure revision on 10/28/[address] Rodriguez patient initiated on vancomycin as well as Zosyn following his surgery cultures obtained from surgery so far positive for gram-negative rods. Consultation was placed to Dr. Sanders with infectious disease antibiotic management subsequently deferred 2. Hypertension-blood pressure controlled, home medications continued with dose adjustment as needed 3. 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 Managed with long-acting insulin with Accu-Cheks before meals and at bedtime with sliding scale coverage 4. Chronic pain syndrome 5. Obstructive sleep apnea patient is on CPAP at night 6. Depression with anxiety patient is on SSRI Celexa as well as Wellbutrin 7. Obesity with BMI of 40.5 weight loss advised 8. Anemia; secondary to anemia of chronic disorder; monitoring H&H 9. Dyslipidemia-patient is on statin therapy, continued at home dose 10. GERD on PPI 11. DVT prophylaxis on Lovenox Active Medications Atorvastatin Calcium (Lipitor) 40 mg PO QHS COUNTS INCLUDE 234 BEDS AT THE [facility] Last Admin: 10/28/17 21:38 Dose: 40 mg Bupropion HCl (Wellbutrin Xl) 150 mg PO DAILY COUNTS INCLUDE 234 BEDS AT [facility] Citalopram Hydrobromide (Celexa) 40 mg PO DAILY COUNTS INCLUDE 234 BEDS AT [facility] Diazepam (Valium) 5 mg PO 4X/DAY PRN PRN PRN Reason: SPASMS Last Admin: 10/29/17 02:38 Dose: 5 mg Docusate Sodium (Colace) 100 mg PO BID COUNTS INCLUDE 234 BEDS AT [facility] Last Admin: 10/28/17 21:38 Dose: 100 mg Enoxaparin Sodium (Lovenox) 40 mg SC DAILY@0600 COUNTS INCLUDE 234 BEDS AT [facility] Last Admin: 10/29/17 05:25 Dose: 40 mg Gabapentin (Neurontin) 800 mg PO 4X/DAYCM COUNTS INCLUDE 234 BEDS AT [facility] Last Admin: 10/28/17 21:38 Dose: 800 mg Hydralazine HCl (Apresoline Iv) 10 mg IV Q4H PRN PRN PRN Reason: SBP > 160 Hydromorphone HCl (Dilaudid Inj) 1 - 2 mg IV Q3H PRN PRN PRN Reason: SEVERE PAIN (6-1010) Last Admin: 10/29/17 06:38 Dose: 2 mg Lactated Ringer's () 1,000 mls @ 60 mls/hr IV .[id number] COUNTS INCLUDE 234 BEDS AT [facility] Last Admin: 10/29/17 05:24 Dose: 60 mls/hr Piperacillin Sod/Tazobactam Sod (Zosyn) 3.375 gm in 50 mls @ 12.5 mls/hr IV Q8 COUNTS INCLUDE 234 BEDS AT [facility] Last Admin: 10/29/17 07:13 Dose: 12.5 mls/hr Vancomycin IV Pharmacy to Dose (1 ea/ Sodium Chloride) 500 mls @ 250 mls/hr IV X1 PRN; Protocol PRN Reason: Rx to Dose Vancomycin HCl 1,250 mg/ (Sodium Chloride) 275 mls @ 167 mls/hr IV Q12H COUNTS INCLUDE 234 BEDS AT [facility] Last Admin: 10/29/17 05:24 Dose: 167 mls/hr Insulin Human Lispro (Humalog Kwikpen (Bkc)) 0 unit SC ACHS COUNTS INCLUDE 234 BEDS AT [facility] PRN Reason: Protocol Last Admin: 10/28/17 21:48 Dose: 1 u Insulin Human Lispro (Humalog Kwikpen (Bkc)) 20 unit SC TIDCM COUNTS INCLUDE 234 BEDS AT THE [facility] Last Admin: 10/28/17 17:43 Dose: 20 units Insulin Human NPH (Humulin N (Bkc)) 50 units SC BID COUNTS INCLUDE 234 BEDS AT [facility] Last Admin: 10/28/17 21:49 Dose: 50 u Losartan Potassium (Cozaar) 100 mg PO DAILY COUNTS INCLUDE 234 BEDS AT [facility] Nutritional Formula (Greg - [place] Flavor) 1 packet PO BIDCM COUNTS INCLUDE 234 BEDS AT [facility] Last Admin: 10/28/17 17:38 Dose: 1 packet Nutritional Formula (Lactose Free) (Glucerna Shake) 120 ml PO 4X/DAY COUNTS INCLUDE 234 BEDS AT [facility] Last Admin: 10/28/17 21:48 Dose: 120 ml Ondansetron HCl (Zofran) 4 mg IV Q6H PRN PRN PRN Reason: NAUSEA Last Admin: 10/29/17 00:37 Dose: 4 mg Oxycodone HCl (Oxyir) 10 mg PO Q4H PRN PRN PRN Reason: SEVERE PAIN (6-11/26) Last Admin: 10/29/17 03:19 Dose: 10 mg Pantoprazole Sodium (Protonix) 20 mg PO BID COUNTS INCLUDE 234 BEDS AT [facility] Last Admin: 10/28/17 21:38 Dose: 20 mg Polysaccharide Iron Complex (Ferrex 150) [facility] Promethazine HCl (Phenergan Tablet) 25 mg PO Q4H PRN PRN PRN Reason: NAUSEA/VOMITING Sodium Chloride () 5 - 30 ml IV UD PRN PRN Reason: SALINE FLUSH Last Admin: 10/28/17 15:04 Dose: 10 ml Triamterene/HCTZ (Dyazide (G)) 1 cap PO DAILY COUNTS INCLUDE 234 BEDS AT THE [facility] Code Visit Inpatient E&M: 34617 Subs Hosp L2
[2017-10-30 08:51] LABS: Bedside Glucose 72 mg/dL (70-110)
--- NOTE | 2017-10-30 08:55 | PN_ITS ---
Subjective: Post Operative day 2: Seen pain is tolerable. Cultures obtained from surgery positive for gram-negative rods. Objective: GENERAL: cooperative HEENT: Clear conjunctiva, NECK; supple, no distended JVD. CHEST: Clear to auscultation bilaterally, HEART: Regular S1 S2, no audible murmurs ABDOMEN: soft,normoactive bowel sounds, RECTAL: deferred EXTREMITIES: L BKA stump in surgical dressing SUPERVISOR PATCHING: Awake, no lateralizing signs. SKIN: As Described above Vitals/I&O's: Vital Signs Temp Pulse Resp BP Pulse Ox 99.1 F 84 18 130/65 H 95 10/30/17 02:48 10/30/17 02:48 10/30/17 02:48 10/30/17 02:48 10/30/17 02:48 Oxygen Flow Rate (L/min) 2 Oxygen Delivery Method Nasal Cannula Weight: 127 kg Body Mass Index (BMI) 34.9 Finger Stick Blood Glucose 168 Intake and Output for Last 24 Hours 10/28/17 10/29/17 10/30/17 23:59 23:59 23:59 Intake Total 3010 / 3010 5993 / 5993 800 / 800 Output Total 65 / 65 2370 / 2370 1620 / 1620 Balance 2945 / 2945 3623 / 3623 -820 / -820 Microbiology Past 72 Hours 10/28/17 11:18 Bone - Other Gram Stain - Final 10/28/17 11:18 Bone - Other Wound Culture - Preliminary GNR lactose general adjuster 10/28/17 11:18 Tissue - Other Gram Stain - Final 10/28/17 11:18 Tissue - Other Wound Culture - Preliminary GNR lactose general adjuster Laboratory Results 10/29/17 11:32: POC Glucose 247 H 10/29/17 16:52: POC Glucose 138 H 10/29/17 21:17: POC Glucose 176 H 10/30/17 05:15: Vancomycin Trough 11.6 Current Medications Atorvastatin Calcium (Lipitor) 40 mg PO QHS [facility] Last Admin: 10/29/17 21:18 Dose: 40 mg Bupropion HCl (Wellbutrin Xl) 150 mg PO DAILY [facility] Last Admin: 10/30/17 08:22 Dose: 150 mg Citalopram Hydrobromide (Celexa) 40 mg PO DAILY [facility] Last Admin: 10/30/17 08:21 Dose: 40 mg Diazepam (Valium) 5 mg PO 4X/DAY PRN PRN PRN Reason: SPASMS Last Admin: 10/30/17 05:37 Dose: 5 mg Docusate Sodium (Colace) 100 mg PO BID [facility] Last Admin: 10/30/17 08:21 Dose: 100 mg Enoxaparin Sodium (Lovenox) 40 mg SC DAILY@0600 [facility] Last Admin: 10/30/17 06:44 Dose: 40 mg Gabapentin (Neurontin) 800 mg PO 4X/DAYCM [facility] Last Admin: 10/30/17 08:21 Dose: 800 mg Hydralazine HCl (Apresoline Iv) 10 mg IV Q4H PRN PRN PRN Reason: SBP > 160 Hydromorphone HCl (Dilaudid Inj) 1 - 2 mg IV Q3H PRN PRN PRN Reason: SEVERE PAIN (6-11/26) Last Admin: 10/30/17 08:21 Dose: 1 mg Lactated Ringer's () 1,000 mls @ 60 mls/hr IV .[id number] [facility] Last Admin: 10/29/17 23:47 Dose: 60 mls/hr Piperacillin Sod/Tazobactam Sod (Zosyn) 3.375 gm in 50 mls @ 12.5 mls/hr IV Q8 [facility] Last Admin: 10/30/17 08:21 Dose: 12.5 mls/hr Vancomycin IV Pharmacy to Dose (1 ea/ Sodium Chloride) 500 mls @ 250 mls/hr IV X1 PRN; Protocol PRN Reason: Rx to Dose Vancomycin HCl 1,250 mg/ (Sodium Chloride) 275 mls @ 167 mls/hr IV Q12H [facility] Last Admin: 10/30/17 05:37 Dose: 167 mls/hr Insulin Human Lispro (Humalog Kwikpen (Bkc)) 0 unit SC ACHS [facility] PRN Reason: Protocol Last Admin: 10/30/17 08:26 Dose: Not Given Insulin Human Lispro (Humalog Kwikpen (Bkc)) 20 unit SC TIDCM [facility] Last Admin: 10/30/17 08:26 Dose: 20 units Insulin Human NPH (Humulin N (Bkc)) 50 units SC BID [facility] Last Admin: 10/30/17 08:23 Dose: 50 u Losartan Potassium (Cozaar) 100 mg PO DAILY [facility] Last Admin: 10/30/17 08:21 Dose: 100 mg Nutritional Formula (Greg - Media Flavor) [facility] Last Admin: 10/30/17 08:21 Dose: 1 packet Nutritional Formula (Lactose Free) (Glucerna Shake) 120 ml PO 4X/DAY [facility] Last Admin: 10/30/17 08:26 Dose: 120 ml Ondansetron HCl (Zofran) 4 mg IV Q6H PRN PRN PRN Reason: NAUSEA Last Admin: 10/29/17 00:37 Dose: 4 mg Oxycodone HCl (Oxyir) 10 mg PO Q4H PRN PRN PRN Reason: SEVERE PAIN (6-10/10) Last Admin: 10/30/17 05:37 Dose: 10 mg Pantoprazole Sodium (Protonix) 20 mg PO BID [facility] Last Admin: 10/30/17 08:21 Dose: 20 mg Polysaccharide Iron Complex (Ferrex 150) [facility] Last Admin: 10/30/17 08:21 Dose: 150 mg Promethazine HCl (Phenergan Tablet) 25 mg PO Q4H PRN PRN PRN Reason: NAUSEA/VOMITING Sodium Chloride () 5 - 30 ml IV UD PRN PRN Reason: SALINE FLUSH Last Admin: 10/29/17 14:38 Dose: 10 ml Triamterene/HCTZ (Dyazide (G)) 1 cap PO DAILY [facility] Last Admin: 10/30/17 08:21 Dose: 1 cap 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 involvement without evidence of necrosis (Acute) Cellulitis (Resolved) Cellulitis and abscess of toe of left foot (Resolved) Cellulitis of great toe, left (Resolved) Cellulitis of leg (Resolved) Cellulitis of right foot (Resolved) Deep venous thrombosis (Resolved) Diabetic toe ulcer (Resolved) Fracture of left foot (Resolved) Hammer toe of right foot (Resolved) Healed ulcer of left foot on examination (Resolved) Lymphangitis (Resolved) Non-pressure chronic ulcer of other part of right foot with fat layer exposed ( Resolved) Right foot infection (Resolved) Sepsis (Resolved) Skin ulcer of left great toe with fat layer exposed (Resolved) Toe osteomyelitis, right (Resolved) Ulcer of right leg (Resolved) Ulcer of right lower extremity with fat layer exposed (Resolved) Ulcer of right lower extremity with fat layer exposed (Resolved) Ulcer of right second toe with fat layer exposed (Resolved) Ulcer of toe of right foot (Resolved) Ulcer with necrosis of muscle (Resolved) Wound of left leg (Resolved) Wound of right leg (Resolved) Patient is a 62-year-old gentleman with multiple comorbidities including left BKA by Dr. Rodriguez on 06/25/2027. Admitted following traumatic dehiscence of his left BKA stump. Patient underwent excision of his dehiscence amputation stump ulcer and partial ostectomy tibia for osteomyelitis. 2. Reconstruction with re -advancement muscle flap and bipedicle periosteal advancement flap and secondary wound closure revision on 10/28/[address] Rodriguez 1. Status post excision of his dehiscence amputation stump ulcer and partial ostectomy tibia for osteomyelitis. 2. Reconstruction with re-advancement muscle flap and bipedicle periosteal advancement flap and secondary wound closure revision on 10/28/[address] Rodriguez patient initiated on vancomycin as well as Zosyn following his surgery cultures obtained from surgery so far positive for gram-negative rods. Consultation was placed to Dr. Sanders with infectious disease antibiotic management subsequently deferred 2. Hypertension-blood pressure controlled, home medications continued with dose adjustment as needed 3. 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 Managed with long-acting insulin with Accu-Cheks before meals and at bedtime with sliding scale coverage 4. Chronic pain syndrome 5. Obstructive sleep apnea patient is on CPAP at night 6. Depression with anxiety patient is on SSRI Celexa as well as Wellbutrin 7. Obesity with BMI of 40.5 weight loss advised 8. Anemia; secondary to anemia of chronic disorder; monitoring H&H 9. Dyslipidemia-patient is on statin therapy, continued at home dose 10. GERD on PPI 11. DVT prophylaxis on Lovenox Active Medications Atorvastatin Calcium (Lipitor) 40 mg PO QHS [facility] Last Admin: 10/28/17 21:38 Dose: 40 mg Bupropion HCl (Wellbutrin Xl) 150 mg PO DAILY [facility] Citalopram Hydrobromide (Celexa) 40 mg PO DAILY [facility] Diazepam (Valium) 5 mg PO 4X/DAY PRN PRN PRN Reason: SPASMS Last Admin: 10/29/17 02:38 Dose: 5 mg Docusate Sodium (Colace) 100 mg PO BID [facility] Last Admin: 10/28/17 21:38 Dose: 100 mg Enoxaparin Sodium (Lovenox) 40 mg SC DAILY@0600 [facility] Last Admin: 10/29/17 05:25 Dose: 40 mg Gabapentin (Neurontin) 800 mg PO 4X/DAYCM [facility] Last Admin: 10/28/17 21:38 Dose: 800 mg Hydralazine HCl (Apresoline Iv) 10 mg IV Q4H PRN PRN PRN Reason: SBP > 160 Hydromorphone HCl (Dilaudid Inj) 1 - 2 mg IV Q3H PRN PRN PRN Reason: SEVERE PAIN (6-1010) Last Admin: 10/29/17 06:38 Dose: 2 mg Lactated Ringer's () 1,000 mls @ 60 mls/hr IV .[id number] [facility] Last Admin: 10/29/17 05:24 Dose: 60 mls/hr Piperacillin Sod/Tazobactam Sod (Zosyn) 3.375 gm in 50 mls @ 12.5 mls/hr IV Q8 [facility] Last Admin: 10/29/17 07:13 Dose: 12.5 mls/hr Vancomycin IV Pharmacy to Dose (1 ea/ Sodium Chloride) 500 mls @ 250 mls/hr IV X1 PRN; Protocol PRN Reason: Rx to Dose Vancomycin HCl 1,250 mg/ (Sodium Chloride) 275 mls @ 167 mls/hr IV Q12H [facility] Last Admin: 10/29/17 05:24 Dose: 167 mls/hr Insulin Human Lispro (Humalog Kwikpen (Bkc)) 0 unit SC ACHS [facility] PRN Reason: Protocol Last Admin: 10/28/17 21:48 Dose: 1 u Insulin Human Lispro (Humalog Kwikpen (Bkc)) 20 unit SC TIDCM [facility] Last Admin: 10/28/17 17:43 Dose: 20 units Insulin Human NPH (Humulin N (Bkc)) 50 units SC BID [facility] Last Admin: 10/28/17 21:49 Dose: 50 u Losartan Potassium (Cozaar) 100 mg PO DAILY [facility] Nutritional Formula (Greg - Media Flavor) 1 packet PO BIDCM [facility] Last Admin: 10/28/17 17:38 Dose: 1 packet Nutritional Formula (Lactose Free) (Glucerna Shake) 120 ml PO 4X/DAY [facility] Last Admin: 10/28/17 21:48 Dose: 120 ml Ondansetron HCl (Zofran) 4 mg IV Q6H PRN PRN PRN Reason: NAUSEA Last Admin: 10/29/17 00:37 Dose: 4 mg Oxycodone HCl (Oxyir) 10 mg PO Q4H PRN PRN PRN Reason: SEVERE PAIN (6-11/26) Last Admin: 10/29/17 03:19 Dose: 10 mg Pantoprazole Sodium (Protonix) 20 mg PO BID [facility] Last Admin: 10/28/17 21:38 Dose: 20 mg Polysaccharide Iron Complex (Ferrex 150) [facility] Promethazine HCl (Phenergan Tablet) 25 mg PO Q4H PRN PRN PRN Reason: NAUSEA/VOMITING Sodium Chloride () 5 - 30 ml IV UD PRN PRN Reason: SALINE FLUSH Last Admin: 10/28/17 15:04 Dose: 10 ml Triamterene/HCTZ (Dyazide (G)) 1 cap PO DAILY [facility] Code Visit Inpatient E&M: [id number] Subs Hosp L2
[2017-10-30 09:48] LABS: Hematocrit 29.9 % (40-54); Hemoglobin 9.3 g/dl (13.0-16.5); Mean Corp Hgb Conc 31.1 g/gl (32-36); Mean Corpuscular Hgb 27.3 pg (27.0-32.0); Mean Corpuscular Volume 87.7 fL (80-94); Mean Platelet Vol. 9.3 fl (6.2-12.0); Platelet Count 224 K/mm3 (150-450); RBC Distribution Width CV 14.7 % (11.6-14.6); RBC Distribution Width SD 45.8 fl (35.1-43.9); Red Blood Count 3.41 M/mm3 (4.6-6.2); Scan Indicated on CBC? Y/N NO; White Blood Count 6.8 K/mm3 (4.4-11.0)
[2017-10-30 09:55] LABS: Anion Gap 8 (5-15); BUN 26 mg/dL (7-18); Calcium,Total 8.5 mg/dL (8.5-10.1); Chloride 101 mmol/L (98-107); Creatinine, Serum 1.04 mg/dL (0.70-1.30); EST Glomerular Filtration Rate 77 mL/min (>60); Est Glom Filt Rate - Afr Amer 93 mL/min (>60); Estimated Creatinine Clearance 89.15 ml/min; Glucose 86 mg/dL (74-106); Potassium 3.7 mmol/L (3.5-5.1); Sodium Level 139 mmol/L (136-145)
--- NOTE | 2017-10-30 10:22 | CASEMGMT ---
SW spoke w/Angélica, TCU can take pt and can start precert when appropriate. SW spoke w/pt in room in regard to discharge plan. Pt states that he wants to go home, states has had IV antibiotics at home in the past. SW let CM know, and left a message for Angélica in TCU letting her know pt would like to go home. AL Cancino, CANCER PROGRAM DIRECTOR
--- NOTE | 2017-10-30 10:30 | NURSING ---
wound photo: left stump
--- NOTE | 2017-10-30 10:31 | NURSING ---
wound photo: left stump (medial view)
--- NOTE | 2017-10-30 10:45 | PCM.PN.ID ---
Subjective: Feeling ok, no fever, no n/v/d. - Physical Exam General: Alert, Cooperative, No apparent distress Lungs: Clear to auscultation, Normal air movement Cardiovascular: Regular rate, Regular Rhythm Abdomen: Soft, Non Tender, Non-Distended Skin: Incision - minimal redness at L BKA stump, drain in place Vital Signs Temp Pulse Resp BP Pulse Ox 98.5 F 72 16 111/59 L 85 10/30/17 08:20 10/30/17 08:20 10/30/17 08:20 10/30/17 08:20 10/30/17 08:20 Oxygen Flow Rate (L/min) 2 Oxygen Delivery Method Room Air Weight: 127 kg Body Mass Index (BMI) 34.9 Finger Stick Blood Glucose 168 Intake and Output for Last 24 Hours 10/28/17 10/29/17 10/30/17 23:59 23:59 23:59 Intake Total 3010 / 3010 5993 / 5993 800 / 800 Output Total 65 / 65 2370 / 2370 1620 / 1620 Balance 2945 / 2945 3623 / 3623 -820 / -820 Microbiology Past 72 Hours 10/28/17 11:18 Gram Stain - Final Bone - Other Wound Culture - Preliminary GNR lactose director enterprise sales 10/28/17 11:18 Gram Stain - Final Tissue - Other Wound Culture - Final Enterobacter cloacae complex Laboratory Tests Past 24 Hrs 10/30/17 10/30/17 10/30/17 05:15 05:15 05:15 WBC 6.8 RBC 3.41 L Hgb 9.3 L Hct 29.9 L MCV 87.7 MCH 27.3 MCHC 31.1 L RDW 14.7 H RDW Differential 45.8 H Plt Count 224 MPV 9.3 Sodium 139 Potassium 3.7 Chloride 101 Carbon Dioxide 30.0 Anion Gap 8 BUN 26 H Creatinine 1.04 Estim Creat Clear Calc 89.15 Est GFR (MDRD) Af Amer 93 Est GFR (MDRD) Non-Af 77 BUN/Creatinine Ratio 25.0 H Glucose 86 Calcium 8.5 Vancomycin Trough 11.6 POC Glucose 10/30/17 10/29/17 10/29/17 08:24 21:17 16:52 POC Glucose 72 176 H 138 H 10/29/17 11:32 POC Glucose 247 H Medical Necessity - Tobacco Use Smoking Status: Former smoker Tobacco Use: Non-smoker Route of nutrition/ use of supplements: [] Nutritional Intake: [] IV Site: [] Tam Catheter: [] - Assessment/Plan Antibiotics: [] Assessment/Plan: [] L BKA with wound dehiscence and GNR osteo, recent cxs with MRSE and burkholderia - now taken back to OR 10/[address] Rodriguez for debridement. Surg cx with enterobacter. On empiric vanc/zosyn for now. Will stop vanc today. Will follow
--- NOTE | 2017-10-30 11:44 | PN.SURG_ITS ---
Subjective: Postop #2 Patient is resting comfortably. His stump is not dependent off the bed this morning. - Physical Exam General: Alert, Oriented x3 HEENT: PERRLA, EOMI Oral: Moist Mucosa Neck: Supple Skin: Incision - Stump incision dry and intact. Mild swelling present. Stump is soft without evidence of hematoma. No vascular compromise noted on the skin flap. Neurological: Cranial nerves II-XII grossly intact Psych/Mental Status: Normal Affect, Appropriate Vital Signs Temp Pulse Resp BP Pulse Ox 98.5 F 72 16 111/59 L 85 10/30/17 08:20 10/30/17 08:20 10/30/17 08:20 10/30/17 08:20 10/30/17 08:20 Oxygen Flow Rate (L/min) 2 Oxygen Delivery Method Room Air Weight: 279 lb 15.793 oz Body Mass Index (BMI) 34.9 Finger Stick Blood Glucose 168 Intake and Output for Last 24 Hours 10/28/17 10/29/17 10/30/17 23:59 23:59 23:59 Intake Total 3010 / 3010 5993 / 5993 800 / 800 Output Total 65 / 65 2370 / 2370 1620 / 1620 Balance 2945 / 2945 3623 / 3623 -820 / -820 Drainage 260 ml yesterday. Microbiology Past 72 Hours 10/28/17 11:18 Gram Stain - Final Bone - Other Wound Culture - Preliminary GNR lactose cellophane worker 10/28/17 11:18 Gram Stain - Final Tissue - Other Wound Culture - Final Enterobacter cloacae complex Pathology - pending. Laboratory Tests Past 24 Hrs 10/30/17 10/30/17 10/30/17 05:15 05:15 05:15 WBC 6.8 RBC 3.41 L Hgb 9.3 L Hct 29.9 L MCV 87.7 MCH 27.3 MCHC 31.1 L RDW 14.7 H RDW Differential 45.8 H Plt Count 224 MPV 9.3 Sodium 139 Potassium 3.7 Chloride 101 Carbon Dioxide 30.0 Anion Gap 8 BUN 26 H Creatinine 1.04 Estim Creat Clear Calc 89.15 Est GFR (MDRD) Af Amer 93 Est GFR (MDRD) Non-Af 77 BUN/Creatinine Ratio 25.0 H Glucose 86 Calcium 8.5 Vancomycin Trough 11.6 POC Glucose 10/30/17 10/29/17 10/29/17 08:24 21:17 16:52 POC Glucose 72 176 H 138 H 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 involvement without evidence of necrosis (Acute) Cellulitis (Resolved) Cellulitis and abscess of toe of left foot (Resolved) Cellulitis of great toe, left (Resolved) Cellulitis of leg (Resolved) Cellulitis of right foot (Resolved) Deep venous thrombosis (Resolved) Diabetic toe ulcer (Resolved) Fracture of left foot (Resolved) Hammer toe of right foot (Resolved) Healed ulcer of left foot on examination (Resolved) Lymphangitis (Resolved) Non-pressure chronic ulcer of other part of right foot with fat layer exposed ( Resolved) Right foot infection (Resolved) Sepsis (Resolved) Skin ulcer of left great toe with fat layer exposed (Resolved) Toe osteomyelitis, right (Resolved) Ulcer of right leg (Resolved) Ulcer of right lower extremity with fat layer exposed (Resolved) Ulcer of right lower extremity with fat layer exposed (Resolved) Ulcer of right second toe with fat layer exposed (Resolved) Ulcer of toe of right foot (Resolved) Ulcer with necrosis of muscle (Resolved) Wound of left leg (Resolved) Wound of right leg (Resolved) 1. Dehiscence of left BKA stump. 2. Infection of left BKA stump. 3. Osteomyelitis. 4. MRSA. 5. Diabetes mellitus. 6. Former smoker. Stump incision dry and intact. Mild swelling present. Stump is soft without evidence of hematoma. No vascular compromise noted on the skin flap. Operative culture shows Enterobacter cloacae. Continue IV Zosyn. Will stop the Vancomycin. HgbA1c is 6.7. Prealbumin was 28.3. Encourage nutritional supplementation with protein to help the healing process. PT to evaluate. He would benefit from a short stay at TCU. Evaluation in process.
[2017-10-30] MEDS: Insulin Lispro 100 UNIT/ML INSULN.PEN SC ×3 (12:22→21:31)
--- NOTE | 2017-10-30 13:57 | CASEMGMT ---
MARY CLEMENTE NOTE: Pt is current w/[facility], receiving fdc services. Pt states when he is discharged that he would like to continue w/[facility]. Josselin LEDBETTER RN CM
--- NOTE | 2017-10-30 14:15 | CASEMGMT ---
Addendum entered by Usman Hager 10/30/17 14:23: Message left w/ELIDA Bocanegra, @ [facility] to notify her plan is for pt to go to TCU now. Original Note: MARY CLEMENTE NOTE: After PT/OT in with pt for evaluation, pt pointed to his and stated, she's not able to take care of me with as weak as I am. I surely don't want to fall and bust open my stump again. See PT/OT evaluation. MARY CLEMENTE had discussion with pt and and pt states he is agreeable to going to TCU now and his voices agreeable to this. RANDY Merlos, notified. Josselin HERNANDEZ BSN CM
--- NOTE | 2017-10-30 14:20 | CASEMGMT ---
Pt would again like to go to TCU, pt had difficulty w/PT/OT. SW called Angélica in TCU, they can take pt and will start precert. BRYN Mary will let pt know. AL Cancino, GROUP LEADER
[2017-10-30 15:05] VITALS: BP 123/55; PULSE 78; RESP 16; TEMP 37.3; O2SAT 94
[2017-10-30 17:00] LABS: Bedside Glucose 175 mg/dL (70-110)
[2017-10-30] MEDS: Lactated Ringers 1,000 ML 60 ML IV (17:07)
[2017-10-30 17:55] LABS: Bedside Glucose 224 mg/dL (70-110)
[2017-10-30 19:20] VITALS: PULSE 77; RESP 16; O2SAT 94
[2017-10-30 20:14] VITALS: BP 127/54; PULSE 73; RESP 18; TEMP 37.3; O2SAT 95
[2017-10-30] MEDS: Atorvastatin Calcium 40 MG Tablet PO (21:28)
[2017-10-30] MEDS: 0.9% NaCl Peripheral Flush Adult/Peds IV (21:37)
[2017-10-30 21:46] LABS: Bedside Glucose 226 mg/dL (70-110)
--- NOTE | 2017-10-31 00:41 | NUR.TO.PHY ---
Patient sitting with leg in dependent position upon rounding. Encouraged patient to elevated leg. Patient not compliant @ this time.
[2017-10-31 03:17] VITALS: BP 147/84; PULSE 69; RESP 16; TEMP 36.4; O2SAT 97
[2017-10-31] MEDS: diazePAM 5 MG Tablet PO (03:17)
[2017-10-31] MEDS: 0.9% NaCl Peripheral Flush Adult/Peds IV ×2 (05:47→12:37)
[2017-10-31] MEDS: Piperacil/Tazobactam 3.375 GM/50 ML ML IV (05:47)
[2017-10-31] MEDS: Enoxaparin 40 MG/0.4 ML Syringe SC (05:47)
[2017-10-31] MEDS: oxyCODONE 5 MG Tablet 10 MG PO (05:52)
[2017-10-31 07:21] VITALS: O2SAT 97
[2017-10-31] MEDS: Glucerna Shake 120 ML LIQUID PO ×2 (08:17→12:31)
[2017-10-31] MEDS: Docusate Sodium 100 MG Capsule PO (08:18)
[2017-10-31] MEDS: Citalopram 20 MG Tablet 40 MG PO (08:18)
[2017-10-31] MEDS: Gabapentin 800 MG Tablet PO ×2 (08:18→11:20)
[2017-10-31] MEDS: Pantoprazole Sodium 20 MG Tablet PO (08:18)
[2017-10-31] MEDS: Mupirocin Ointment 22gm Tube 1 APPLIC TOPICAL (08:18)
[2017-10-31] MEDS: Triamterene 37.5MG/Hctz 25MG Capsule 1 CAP PO (08:18)
[2017-10-31] MEDS: Losartan Potassium 100 MG Tablet PO (08:18)
[2017-10-31] MEDS: buPROPion (XL) 150 MG TABLET.XL PO (08:18)
[2017-10-31] MEDS: Iron Polysaccharide Complex 150 MG CAPSULE PO (08:18)
[2017-10-31] MEDS: Insulin Lispro 100 UNIT/ML INSULN.PEN 20 UNIT SC ×2 (08:19→11:20)
[2017-10-31] MEDS: Insulin NPH Human 100 UNITS/ML PEN 50 UNITS SC (08:19)
[2017-10-31 08:25] VITALS: BP 138/60; PULSE 82; RESP 18; TEMP 36.8; O2SAT 94
[2017-10-31] MEDS: HYDROmorphone 1 MG/ML Syringe IV ×2 (08:33→12:36)
[2017-10-31 08:35] LABS: Bedside Glucose 133 mg/dL (70-110)
--- NOTE | 2017-10-31 08:59 | PN_ITS ---
Subjective: Patient had wound debridement of left BKA stump on 10/28/[address] Rodriguez. Patient had left BKA stump patient's with infection, osteomyelitis. Has JOJO Solis delirium in the past on 08/04/2017. No fever. Patient sitting in the chair. Small serosanguineous collection in NEY drain about 15 mL Vitals/I&O's: Vital Signs Temp Pulse Resp BP Pulse Ox 98.2 F 82 18 138/60 H 94 10/31/17 08:25 10/31/17 08:25 10/31/17 08:25 10/31/17 08:25 10/31/17 08:25 Oxygen Flow Rate (L/min) 2 Oxygen Delivery Method Room Air Weight: 279 lb 15.793 oz Body Mass Index (BMI) 34.9 Finger Stick Blood Glucose 168 Intake and Output for Last 24 Hours 10/29/17 10/30/17 10/31/17 23:59 23:59 23:59 Intake Total 5993 / 5993 3527 / 3527 1901 / 1901 Output Total 2370 / 2370 4110 / 4110 3195 / 3195 Balance 3623 / 3623 -583 / -583 -1294 / -1294 General: Alert, Oriented x3, Cooperative HEENT: Atraumatic, PERRLA, EOMI, Normocephalic Neck: Supple, No JVD, Negative Carotid Bruits Lungs: Clear to auscultation, No rhonchi, No wheeze, No rales, Diminished Cardiovascular: Regular rate, Regular Rhythm, Normal S1, Normal S2, No murmurs Abdomen: Bowel Sounds Present, Soft, Non Tender, Non-Distended Extremities: No edema, Capillary Refill Less than 3 Seconds, Edema, - - Left BKA stump revision. Small NEY drain. Covered with Terry wrap bandage. Skin: No rashes, No breakdown Musculoskeletal: No Tenderness to Palpation of Joints or Extremities Neurological: Cranial nerves II-XII grossly intact Psych/Mental Status: Normal Affect, Appropriate Microbiology Past 72 Hours 10/28/17 11:18 Bone - Other Gram Stain - Final 10/28/17 11:18 Bone - Other Wound Culture - Final Enterobacter cloacae complex 10/28/17 11:18 Tissue - Other Gram Stain - Final 10/28/17 11:18 Tissue - Other Wound Culture - Final Enterobacter cloacae complex Laboratory Results 10/30/17 05:15: WBC 6.8, RBC 3.41 L, Hgb 9.3 L, Hct 29.9 L, MCV 87.7, MCH 27.3, MCHC 31.1 L, RDW 14.7 H, RDW Differential 45.8 H, Plt Count 224, MPV 9.3 10/30/17 05:15: Sodium 139, Potassium 3.7, Chloride 101, Carbon Dioxide 30.0, Anion Gap 8, BUN 26 H, Creatinine 1.04, Estim Creat Clear Calc 89.15, Est GFR ( MDRD) Af Amer 93, Est GFR (MDRD) Non-Af 77, BUN/Creatinine Ratio 25.0 H, Glucose 86, Calcium 8.5 10/30/17 12:13: POC Glucose 175 H 10/30/17 17:03: POC Glucose 224 H 10/30/17 21:30: POC Glucose 226 H 10/31/17 08:15: POC Glucose 133 H Current Medications Atorvastatin Calcium (Lipitor) 40 mg PO QHS [facility] Last Admin: 10/30/17 21:28 Dose: 40 mg Bupropion HCl (Wellbutrin Xl) 150 mg PO DAILY [facility] Last Admin: 10/31/17 08:18 Dose: 150 mg Citalopram Hydrobromide (Celexa) 40 mg PO DAILY [facility] Last Admin: 10/31/17 08:18 Dose: 40 mg Diazepam (Valium) 5 mg PO 4X/DAY PRN PRN PRN Reason: SPASMS Last Admin: 10/31/17 03:17 Dose: 5 mg Docusate Sodium (Colace) 100 mg PO BID [facility] Last Admin: 10/31/17 08:18 Dose: 100 mg Enoxaparin Sodium (Lovenox) 40 mg SC DAILY@0600 [facility] Last Admin: 10/31/17 05:47 Dose: 40 mg Gabapentin (Neurontin) [facility] Last Admin: 10/31/17 08:18 Dose: 800 mg Hydralazine HCl (Apresoline Iv) 10 mg IV Q4H PRN PRN PRN Reason: SBP > 160 Hydromorphone HCl (Dilaudid Inj) 1 - 2 mg IV Q3H PRN PRN PRN Reason: SEVERE PAIN (6-10) Last Admin: 10/31/17 08:33 Dose: 1 mg Lactated Ringer's () 1,000 mls @ 60 mls/hr IV .[id number] [facility] Last Admin: 10/30/17 17:07 Dose: 60 mls/hr Piperacillin Sod/Tazobactam Sod (Zosyn) 3.375 gm in 50 mls @ 12.5 mls/hr IV Q8 [facility] Last Admin: 10/31/17 05:47 Dose: 12.5 mls/hr Insulin Human Lispro (Humalog Kwikpen (Bkc)) 0 unit SC ACHS [facility] PRN Reason: Protocol Last Admin: 10/31/17 08:16 Dose: Not Given Insulin Human Lispro (Humalog Kwikpen (Bkc)) 20 unit SC TIDCM [facility] Last Admin: 10/31/17 08:19 Dose: 20 units Insulin Human NPH (Humulin N (Bk)) 50 units SC BID [facility] Last Admin: 10/31/17 08:19 Dose: 50 u Losartan Potassium (Cozaar) 100 mg PO DAILY [facility] Last Admin: 10/31/17 08:18 Dose: 100 mg Mupirocin (Bactroban) 1 applic TOPICAL DAILY [facility] PRN Reason: Protocol Last Admin: 10/31/17 08:18 Dose: 1 applicatio Nutritional Formula (Greg - Hudspeth Flavor) [facility] Last Admin: 10/31/17 08:18 Dose: 1 packet Nutritional Formula (Lactose Free) (Glucerna Shake) 120 ml PO 4X/DAY [facility] Last Admin: 10/31/17 08:17 Dose: 120 ml Ondansetron HCl (Zofran) 4 mg IV Q6H PRN PRN PRN Reason: NAUSEA Last Admin: 10/29/17 00:37 Dose: 4 mg Oxycodone HCl (Oxyir) 10 mg PO Q4H PRN PRN PRN Reason: SEVERE PAIN (6-10/10) Last Admin: 10/31/17 05:52 Dose: 10 mg Pantoprazole Sodium (Protonix) 20 mg PO BID [facility] Last Admin: 10/31/17 08:18 Dose: 20 mg Polysaccharide Iron Complex (Ferrex 150) [facility] Last Admin: 10/31/17 08:18 Dose: 150 mg Promethazine HCl (Phenergan Tablet) 25 mg PO Q4H PRN PRN PRN Reason: NAUSEA/VOMITING Sodium Chloride () 5 - 30 ml IV UD PRN PRN Reason: SALINE FLUSH Last Admin: 10/31/17 05:47 Dose: 10 ml Triamterene/HCTZ (Dyazide (G)) 1 cap PO DAILY [facility] Last Admin: 10/31/17 08:18 Dose: 1 cap 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 involvement without evidence of necrosis (Acute) Cellulitis (Resolved) Cellulitis and abscess of toe of left foot (Resolved) Cellulitis of great toe, left (Resolved) Cellulitis of leg (Resolved) Cellulitis of right foot (Resolved) Deep venous thrombosis (Resolved) Diabetic toe ulcer (Resolved) Fracture of left foot (Resolved) Hammer toe of right foot (Resolved) Healed ulcer of left foot on examination (Resolved) Lymphangitis (Resolved) Non-pressure chronic ulcer of other part of right foot with fat layer exposed ( Resolved) Right foot infection (Resolved) Sepsis (Resolved) Skin ulcer of left great toe with fat layer exposed (Resolved) Toe osteomyelitis, right (Resolved) Ulcer of right leg (Resolved) Ulcer of right lower extremity with fat layer exposed (Resolved) Ulcer of right lower extremity with fat layer exposed (Resolved) Ulcer of right second toe with fat layer exposed (Resolved) Ulcer of toe of right foot (Resolved) Ulcer with necrosis of muscle (Resolved) Wound of left leg (Resolved) Wound of right leg (Resolved) Patient is a 62-year-old gentleman with multiple comorbidities including left BKA by Dr. Rodriguez on 06/25/2027. Admitted following traumatic dehiscence of his left BKA stump. Patient underwent excision of his dehiscence amputation stump ulcer and partial ostectomy tibia for osteomyelitis. 2. Reconstruction with re -advancement muscle flap and bipedicle periosteal advancement flap and secondary wound closure revision on 10/28/[address] Rodriguez 1. Left knee traumatic disruption/ulcer of left BKA stump with osteomyelitis status post excision of left knee dehiscence amputation stump ulcer and partial ostectomy tibia for osteomyelitis. Postop day third. Reconstruction with re-advancement muscle flap and bipedicle periosteal advancement flap and secondary wound closure revision on 10/28/[address] Rodriguez patient initiated on vancomycin as well as Zosyn following his surgery cultures obtained from surgery so far positive for gram-negative rods. Currently, wound culture is growing. ID consult reviewed and appreciated. 2. Hypertension-blood pressure controlled, home medications continued with dose adjustment as needed 3. 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 Managed with long-acting insulin with Accu-Cheks before meals and at bedtime with sliding scale coverage. Patient on NPH insulin 50 units subcutaneous twice daily. 4. Chronic pain syndrome 5. Obstructive sleep apnea patient is on CPAP at night 6. Depression with anxiety patient is on SSRI Celexa as well as Wellbutrin 7. Obesity with BMI of 40.5 weight loss advised 8. Anemia; secondary to anemia of chronic disorder; monitoring H&H 9. Dyslipidemia-patient is on statin therapy, continued at home dose 10. GERD on PPI 11. DVT prophylaxis on Lovenox Microbiology Past 72 Hours 10/28/17 11:18 Bone - Other Gram Stain - Final 10/28/17 11:18 Bone - Other Wound Culture - Final Enterobacter cloacae complex 10/28/17 11:18 Tissue - Other Gram Stain - Final 10/28/17 11:18 Tissue - Other Wound Culture - Final Enterobacter cloacae complex Laboratory Results 10/31/17 09:20: WBC 5.4, RBC 3.60 L, Hgb 9.5 L, Hct 31.2 L, MCV 86.7, MCH 26.4 L , MCHC 30.4 L, RDW 14.9 H, RDW Differential 47.1 H, Plt Count 229, MPV 8.9, Immature Gran % (Auto) 0.200, Neut % (Auto) 67.7, Lymph % (Auto) 20.3, [place] % ( Auto) 5.7, Eos % (Auto) 5.7 H, Baso % (Auto) 0.4, Absolute Neuts (auto) 3.7, Absolute Lymphs (auto) 1.10, Total Counted Not Reportable 10/31/17 11:17: POC Glucose 194 H Enterobacter clunky and antibiotic changed to Cipro. Code Visit Inpatient E&M: 82437 Subs Hosp L2
[2017-10-31] MEDS: Lactated Ringers 1,000 ML 60 ML IV (09:38)
[2017-10-31 09:42] LABS: Absolute Neutrophil Count 3.7 X10^3/uL (2.0-7.7); Basophil# 0.02 X10^3/uL; Basophil% 0.4 % (0-1); Eosinophil# 0.31 X10^3/uL; Eosinophils% 5.7 % (0-5); Hematocrit 31.2 % (40-54); Hemoglobin 9.5 g/dl (13.0-16.5); Lymphocyte % 20.3 % (19-41); Mean Corp Hgb Conc 30.4 g/gl (32-36); Mean Corpuscular Hgb 26.4 pg (27.0-32.0); Mean Corpuscular Volume 86.7 fL (80-94); Mean Platelet Vol. 8.9 fl (6.2-12.0); Monocyte# 0.31 X10^3/uL; Monocyte% 5.7 % (0-10); Neutrophil # 3.66 X10^3/uL (2.7-7.7); Neutrophil % 67.7 % (47-70); Platelet Count 229 K/mm3 (150-450); RBC Distribution Width CV 14.9 % (11.6-14.6); RBC Distribution Width SD 47.1 fl (35.1-43.9); White Blood Count 5.4 K/mm3 (4.4-11.0)
[2017-10-31 09:43] LABS: POSITIVE COUNT NO; POSITIVE DIFFERENTIAL NO; POSITIVE MORPHOLOGY NO
[2017-10-31] MEDS: Ciprofloxacin 400 MG/200 ML BAG 200 MG IV (10:07)
--- NOTE | 2017-10-31 10:29 | CASEMGMT ---
SW and CM spoke w/ID physician this morning, pt can be discharged on oral antibiotics. SW let Angélica in TCU know. Pt was approved to go to TCU, can come today. SW called Dr. Rodriguez, let him know pt was approved to go to TCU today. Dr. Rodriguez plans to discharge pt today. SW spoke w/pt, let pt know that he was approved to go to TCU and can go today most likely. Pt states understanding and is in agreement with the plan. SW will continue to follow for discharge to TCU later today. AL Cancino, IT HELP DESK ANALYST
--- NOTE | 2017-10-31 10:44 | PN.ID_ITS ---
Subjective: Feeling well, no fever, no n/v/d. - Physical Exam General: Alert, Cooperative, No apparent distress Lungs: Clear to auscultation, Normal air movement Cardiovascular: Regular rate, Regular Rhythm Abdomen: Soft, Non Tender, Non-Distended Skin: Incision - R leg wrapped Vital Signs Temp Pulse Resp BP Pulse Ox 98.2 F 82 18 138/60 H 94 10/31/17 08:25 10/31/17 08:25 10/31/17 08:25 10/31/17 08:25 10/31/17 08:25 Oxygen Flow Rate (L/min) 2 Oxygen Delivery Method Room Air Weight: 127 kg Body Mass Index (BMI) 34.9 Finger Stick Blood Glucose 168 Intake and Output for Last 24 Hours 10/29/17 10/30/17 10/31/17 23:59 23:59 23:59 Intake Total 5993 / 5993 3527 / 3527 1901 / 1901 Output Total 2370 / 2370 4110 / 4110 3195 / 3195 Balance 3623 / 3623 -583 / -583 -1294 / -1294 Microbiology Past 72 Hours 10/28/17 11:18 Gram Stain - Final Bone - Other Wound Culture - Final Enterobacter cloacae complex 10/28/17 11:18 Gram Stain - Final Tissue - Other Wound Culture - Final Enterobacter cloacae complex Laboratory Tests Past 24 Hrs 10/31/17 09:20 WBC 5.4 RBC 3.60 L Hgb 9.5 L Hct 31.2 L MCV 86.7 MCH 26.4 L MCHC 30.4 L RDW 14.9 H RDW Differential 47.1 H Plt Count 229 MPV 8.9 Immature Gran % (Auto) 0.200 Neut % (Auto) 67.7 Lymph % (Auto) 20.3 [place] % (Auto) 5.7 Eos % (Auto) 5.7 H Baso % (Auto) 0.4 Absolute Neuts (auto) 3.7 Absolute Lymphs (auto) 1.10 Total Counted Not Reportable POC Glucose 10/31/17 10/30/17 10/30/17 08:15 21:30 17:03 POC Glucose 133 H 226 H 224 H 10/30/17 12:13 POC Glucose 175 H Medical Necessity - Tobacco Use Smoking Status: Former smoker Tobacco Use: Non-smoker Route of nutrition/ use of supplements: [] Nutritional Intake: [] IV Site: [] Tam Catheter: [] - Assessment/Plan Antibiotics: [] Assessment/Plan: [] L BKA with wound dehiscence and Enterobacter osteo, recent cxs with MRSE and burkholderia - now taken back to OR 10/[address] Rodriguez for debridement. Surg cx with enterobacter. Narrow abx to cipro iv. Plan will be for discharge to TCU on po cipro 500mg bid for 6 weeks today, stop date 12/09/17. Weekly bmp, cbc, and esr while on abx. Will follow, d/w case operator
[2017-10-31] MEDS: Insulin Lispro 100 UNIT/ML INSULN.PEN SC (11:19)
[2017-10-31 11:31] LABS: Bedside Glucose 194 mg/dL (70-110)
--- NOTE | 2017-10-31 11:52 | PCM.PN.SRG ---
Subjective: Postop #3 Patient is resting comfortably. - Physical Exam General: Alert, Oriented x3 HEENT: PERRLA, EOMI Oral: Moist Mucosa Skin: Incision - stump incision dry and intact. Mild swelling slowly resolving. Stump is soft without evidence of hematoma. No vascular compromise noted on the skin flap. Neurological: Cranial nerves II-XII grossly intact Psych/Mental Status: Normal Affect, Appropriate Vital Signs Temp Pulse Resp BP Pulse Ox 98.2 F 82 18 138/60 H 94 10/31/17 08:25 10/31/17 08:25 10/31/17 08:25 10/31/17 08:25 10/31/17 08:25 Oxygen Flow Rate (L/min) 2 Oxygen Delivery Method Room Air Weight: 279 lb 15.793 oz Body Mass Index (BMI) 34.9 Finger Stick Blood Glucose 168 Intake and Output for Last 24 Hours 10/29/17 10/30/17 10/31/17 23:59 23:59 23:59 Intake Total 5993 / 5993 3527 / 3527 2847 / 2847 Output Total 2370 / 2370 4110 / 4110 4070 / 4070 Balance 3623 / 3623 -583 / -583 -1223 / -1223 Drainage 120 ml yesterday, 75 ml today. Microbiology Past 72 Hours 10/28/17 11:18 Gram Stain - Final Bone - Other Wound Culture - Final Enterobacter cloacae complex 10/28/17 11:18 Gram Stain - Final Tissue - Other Wound Culture - Final Enterobacter cloacae complex Pathology - pending. Laboratory Tests Past 24 Hrs 10/31/17 09:20 WBC 5.4 RBC 3.60 L Hgb 9.5 L Hct 31.2 L MCV 86.7 MCH 26.4 L MCHC 30.4 L RDW 14.9 H RDW Differential 47.1 H Plt Count 229 MPV 8.9 Immature Gran % (Auto) 0.200 Neut % (Auto) 67.7 Lymph % (Auto) 20.3 [place] % (Auto) 5.7 Eos % (Auto) 5.7 H Baso % (Auto) 0.4 Absolute Neuts (auto) 3.7 Absolute Lymphs (auto) 1.10 Total Counted Not Reportable POC Glucose 10/31/17 10/31/17 10/30/17 11:17 08:15 21:30 POC Glucose 194 H 133 H 226 H 10/30/17 10/30/17 17:03 12:13 POC Glucose 224 H 175 H 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 involvement without evidence of necrosis (Acute) Cellulitis (Resolved) Cellulitis and abscess of toe of left foot (Resolved) Cellulitis of great toe, left (Resolved) Cellulitis of leg (Resolved) Cellulitis of right foot (Resolved) Deep venous thrombosis (Resolved) Diabetic toe ulcer (Resolved) Fracture of left foot (Resolved) Hammer toe of right foot (Resolved) Healed ulcer of left foot on examination (Resolved) Lymphangitis (Resolved) Non-pressure chronic ulcer of other part of right foot with fat layer exposed (Resolved) Right foot infection (Resolved) Sepsis (Resolved) Skin ulcer of left great toe with fat layer exposed (Resolved) Toe osteomyelitis, right (Resolved) Ulcer of right leg (Resolved) Ulcer of right lower extremity with fat layer exposed (Resolved) Ulcer of right lower extremity with fat layer exposed (Resolved) Ulcer of right second toe with fat layer exposed (Resolved) Ulcer of toe of right foot (Resolved) Ulcer with necrosis of muscle (Resolved) Wound of left leg (Resolved) Wound of right leg (Resolved) 1. Dehiscence of left BKA stump. 2. Infection of left BKA stump. 3. Osteomyelitis. 4. MRSA. 5. Diabetes mellitus. 6. Former smoker. Stump incision dry and intact. Mild swelling slowly resolving. Stump is soft without evidence of hematoma. No vascular compromise noted on the skin flap. Operative culture shows Enterobacter cloacae in both soft tissue and bone. Will stop the Zosyn and begin Cipro for 6 weeks. Pathology is pending. HgbA1c is 6.7. Prealbumin was 28.3. Encourage nutritional supplementation with protein to help the healing process. TCU evaluation has been approved. Discharge to TCU today. [facility]up [facility] after discharge from TCU. Will remove the drain in a couple of weeks.
--- NOTE | 2017-10-31 11:52 | PCM.TXEXTCAR ---
- Diet 10/28/17 13:14 Diet: Carbohydrate Controlled - Routine Orders/Code Status Routine Lab Work: CBC - qMonday, BMP - qMonday, - - ESR qMonday. Code Status: Full Code - Wound(s) left stump Wound Type: Amputation Dressing Change: nursing to empty and record drainage output daily. - Bactroban ointment to suture line daily followed by Kerlix gauze and compression CONCHIS wrap. - Therapies Weight Bearing: weight bearing and transferring with PT and assistance. Extremity Affected:: Left Lower - left BKA. Physical Therapy: Eval and Treat Occupational Therapy: Eval and Treat - Problem/Diagnosis (1) Dehiscence of amputation stump Status: Acute Current Visit: Yes (2) Infection of amputation stump of left lower extremity Status: Acute Current Visit: Yes (3) Diabetes mellitus Status: Chronic Current Visit: Yes (4) Osteomyelitis Status: Chronic Current Visit: Yes (5) Personal history of Methicillin resistant Staphylococcus aureus infection Status: Chronic Current Visit: Yes - Allergies/Procedures Done in Hospital Allergies/Adverse Reactions: Allergies cefepime Allergy (Verified 10/13/17 13:14) Hives sulfamethoxazole [From Septra] Allergy (Verified 10/13/17 13:14) turned red trimethoprim [From Octra] Allergy (Verified 10/13/17 13:14) turned red lisinopril Adverse Reaction (Verified 10/13/17 13:14) cough Procedures: - - 10/28/17 - 1. Surgical preparation left BKA stump with excision dehiscence amputation stump ulcer and partial ostectomy tibia for osteomyelitis. 2. Reconstruction with re-advancement muscle flap and bipedicle periosteal anterior fascial advancement flap and secondary wound closure revision. - Type of Care/Length of Stay Estimated LOS: Convalescent Care Less Than 30 days Type of Care Needed: Skilled Rehab Potential: Good Prognosis: Good - Additional Orders/Day of Discharge H&P will serve as current which was dated: 10/27/17 Day of Discharge: 10/31/17 - Dietary and Speech Recommendations Dietitian Recommendations/Changes: Recommend 2000 felipe controlled-carbohydrate, cardiac/no added salt diet. Continue sridhar and glucerna shake as ordered for additional pro/wound healing. - Follow Up Care Primary Care Physician: Orion Cordova [Primary Care Provider] - Please Follow Up With: Lucho Rodriguez MD When: at wound center after discharge from TCU. call [phone] for appt.
--- NOTE | 2017-10-31 12:09 | DS.PCM_ITS ---
Discharge Date and Diagnosis Date of Admission: 10/28/17 Date of Discharge: 10/31/17 - Primary Discharge Diagnosis Infection of left BKA stump Dehiscence of left BKA stump. - Secondary Discharge Diagnosis Osteomyelitis. MRSA. Diabetes mellitus. Former smoker. 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 CONSULTATIONS Hospitalist Group - Dr. Rangel and Dr. Prado. Infectious Diseases - Dr. Sanders. Operations: - - 10/28/17 - 1. Surgical preparation left BKA stump with excision dehiscence amputation stump ulcer and partial ostectomy tibia for osteomyelitis. 2. Reconstruction with re-advancement muscle flap and bipedicle periosteal anterior fascial advancement flap and secondary wound closure revision. Procedures: None Summary of Care Provided: The patient is a 62 year old M who presents with a traumatic disruption left BKA stump. He underwent the left BKA on 06/24/17 because of long standing infections with MRSA along with osteomyelitis and Charcot arthropathy. While he was recovering from the left BKA, he fell on his stump and it broke open. He has been treating the disruption with the VAC. Wound culture from 08/04/17 showed Burkholderia cepacia and MRSE. He was treated with IV Vancomycin and Zosyn for 6 weeks. The wound has stabilized with decreased swelling. He presents today for further operative debridement and partial ostectomy for osteomyelitis and secondary wound closure revision and possible readvancement of the muscle flap. Patient is aware that if the decreased swelling is not enough and any attempts at wound closure at this time would place the flap under too much tension, than I would hold off on trying to close the stump at this time and just proceed with the operative debridement and wait several more weeks before deciding on another attempt at stump wound closure. He is aware of that possibility and voices understanding. He was taken to surgery on 10/28/17 where he underwent surgical preparation left BKA stump with excision dehiscence amputation stump ulcer and partial ostectomy tibia for osteomyelitis and reconstruction with re-advancement muscle flap and bipedicle periosteal anterior fascial advancement flap and secondary wound closure revision. He tolerated the procedure well. He was afebrile during his hospital stay. His drainage ranged from 260 ml down to 75 ml at discharge. Hospitalist Group was consulted for medical management. Infectious Diseases was consulted for antibiotic management. His soft tissue culture and bone culture showed Enterobacter cloacae. He was initially treated with Vancomycin and Zosyn. He was changed to Cipro at discharge. His stump incision was dry and intact. Mild swelling was seen which was slowly resolving. Stump is soft without evidence of hematoma. No vascular compromise noted on the skin flap. HgbA1c is 6.7. Prealbumin was 28.3. Encouraged nutritional supplementation with protein to help the healing process. PT was ordered to help with transferring for which he had trouble. TCU evaluation was approved. He was discharged to TCU on the third postop day. He will continue Cipro po for 6 weeks. Followup at the Wound Center after discharge from TCU. Will remove the drain in two weeks. Discharge Diet: Carb Control Diet, - - encourage nutritional supplementation with protein to help the healing process. Discharge Activity: May Shower - after the drain is removed. May shower in (days): 14 - may shower after the drain is removed. May resume sexual activity in: 10-14 days Weight Bearing Status: Weight bearing as tolerated - on his right leg., - - will do transferring with PT. Keep extremity elevated above heart level: Left Leg - keep left BKA stump elevated when sitting. Call your doctor if your incision/area has: Continuous Slow Oozing, Sudden Increased Bleeding, Increased Pain/ Swelling, Increased Redness, Foul Smelling Discharge, Swelling at the incision site Call your doctor if you observe: Fever of 101 or Higher, Coldness, Increased Pain, Shortness of breath, Chest pain, Calf discomfort, Uncontrolled pain Suture Line Care: - - apply bactroban ointment to suture line daily. Change Dressing in (Days):: 1 - dry dressing daily followed by compression CONCHIS wrap. Cleanse incision/area with: - - may get incision wet in the shower after the drain is removed. Drain: Suction - lopez drain to bulb suction. Empty and record output daily. Home Medications: Medications to take at Discharge Metformin HCl [Glucophage] 1,000 mg PO BIDCM 11/15/14 Losartan Potassium [Cozaar] 100 mg PO DAILY 06/05/16 buPROPion XL [Wellbutrin Xl] 150 mg PO DAILY 01/21/17 Triamterene/Hydrochlorothiazid [Triamterene-Hctz 37.5-25 mg Cp] 1 each PO DAILY 03/24/17 Glucerna Shake 120 ml PO 4X/DAY 06/19/17 Atorvastatin Calcium [Lipitor] 40 mg PO QHS #30 tab 07/11/17 Iron Polysaccharide Complex [Ferrex 150] 150 mg PO DAILYCM #30 cap 07/11/17 Pantoprazole Sodium [Protonix] 20 mg PO BID #60 tab 07/11/17 Citalopram [Celexa] 40 mg PO DAILY 08/18/17 Gabapentin [Neurontin] 800 mg PO 4X/DAY 08/18/17 Insulin NPH Human Isophane [Novolin N] 50 unit SQ BID 08/18/17 Insulin Regular, Human [Novolin R] 20 unit SC TIDCM 08/18/17 Ciprofloxacin [Cipro IVPB] 500 mg PO Q12 10/31/17 Diazepam [Valium] 5 mg PO 4X/DAY PRN PRN #30 tab 10/31/17 Docusate Sodium [Colace] 100 mg PO BID 10/31/17 Insulin Lispro [Humalog KwikPen] 20 unit SC TIDCM 10/31/17 Insulin Lispro [Humalog KwikPen] See Protocol SC ACHS 10/31/17 Mupirocin [Bactroban] 1 applic TOPICAL DAILY 10/31/17 Nutritional Supplement [Greg - ORANGE FLAVOR] 1 packet PO BIDCM 10/31/17 Oxycodone [Oxyir] 10 mg PO Q4H PRN PRN 7 Days #60 tab 10/31/17 proMETHazine tablet [Phenergan tablet] 25 mg PO Q4H PRN PRN tablet 10/31/17 Following Prescrptions Were Given to Patient: Oxycodone [Oxyir] 10 mg PO Q4H PRN PRN 7 Days #60 tab PRN Reason: Severe Pain (6-11/26) Diazepam [Valium] 5 mg PO 4X/DAY PRN PRN #30 tab PRN Reason: Spasms Primary Care Physician: Orion Cordova [Primary Care Provider] - Please Follow Up With: Lucho Rodriguez MD When: at wound center after discharge from TCU. call [phone] for appt. Disposition: Senior Living facility - TCU. Minutes spent on discharge:: 35 Patient Condition:: Stable Medical Necessity - Tobacco Use Smoking Status: Former smoker Tobacco Use: Non-smoker Meaningful Use Info Meaningful Use Diagnoses (Choose all that apply): None applicable
--- NOTE | 2017-10-31 12:25 | NURSING ---
CALLED REPORT TO NICOLE IN TCU AT THIS TIME. PT WILL BE TRANSFERRED WHEN ROOM IS CLEAN AROUND 1400.
== END 2017-10-31 14:02 | disposition skilled nursing facility (03) | DRG 478 ==
PROVIDERS: Internal Medicine; Admitting Provider Surgery; Family Provider Family Medicine; PCP Family Medicine; Visit Provider Internal Medicine
PROC: 0KXT0ZZ Transfer Left Lower Leg Muscle, Open Approach (ICD-10-PCS; principal; 2017-10-28 10:10)
DX: T87.81 Dehiscence of amputation stump (principal); M86.8X6 Other osteomyelitis, lower leg; L97.829 Non-pressure chronic ulcer of other part of left lower leg with unspecified severity; Y83.8 Other surgical procedures as the cause of abnormal reaction of the patient, or of later complication, without mention of misadventure at the time of the procedure; T87.44 Infection of amputation stump, left lower extremity; E11.42 Type 2 diabetes mellitus with diabetic polyneuropathy; E11.610 Type 2 diabetes mellitus with diabetic neuropathic arthropathy; G89.4 Chronic pain syndrome; E78.5 Hyperlipidemia, unspecified; G47.33 Obstructive sleep apnea (adult) (pediatric); E66.9 Obesity, unspecified; Z68.34 Body mass index [BMI] 34.0-34.9, adult; Z79.4 Long term (current) use of insulin; E11.69 Type 2 diabetes mellitus with other specified complication; Z87.891 Personal history of nicotine dependence; D64.9 Anemia, unspecified; Z86.14 Personal history of Methicillin resistant Staphylococcus aureus infection
CPT/HCPCS: 11043; 36415; 80048; 80202; 82962; 83036; 84134; 85025; 85027; 85652; 86140; 87070; 87075; 87077; 87102; 87186; 87205; 87206; 88304; 88311; 97110; 97162; 97166; 97530; 97802; J7040; J7050; J7120; A4216; J0744; J2405

== ENCOUNTER 2017-10-31 14:20 | Inpatient (IN) | payer MEDICARE, SELFPAY ==
[2017-10-31 14:59] VITALS: BP 121/68; PULSE 75; RESP 18; TEMP 36.1; O2SAT 94
--- NOTE | 2017-10-31 15:11 | NURSING ---
Pt admitted to room 20 from MS2 via wheelchair. Patient oriented to room and call light system explained.
[2017-10-31 15:49] VITALS: BMI 34.9
[2017-10-31 15:58] VITALS: BMI 35.0
[2017-10-31 16:00] VITALS: BP 121/68; PULSE 75; RESP 18; TEMP 36.1; O2SAT 94
[2017-10-31 17:10] LABS: Bedside Glucose 171 mg/dL (70-110)
[2017-10-31] MEDS: Glucerna Shake 120 ML LIQUID PO ×2 (18:12→22:34)
[2017-10-31] MEDS: Ciprofloxacin 500 MG Tablet PO (18:14)
[2017-10-31] MEDS: metFORMIN HCl 1,000 MG Tablet 1000 MG PO (18:14)
[2017-10-31] MEDS: Gabapentin 400 MG Capsule 800 MG PO ×2 (18:14→22:32)
[2017-10-31] MEDS: Pantoprazole Sodium 20 MG Tablet PO (18:15)
[2017-10-31] MEDS: Docusate Sodium 100 MG Capsule PO (18:15)
[2017-10-31] MEDS: Senna/Docusate Sodium 1 Tablet 2 TABLET PO (18:15)
[2017-10-31] MEDS: oxyCODONE 5 MG Tablet 10 MG PO ×2 (18:17→22:33)
[2017-10-31] MEDS: Insulin Lispro 100 UNIT/ML INSULN.PEN 20 UNIT SC (18:20)
[2017-10-31] MEDS: Insulin NPH Human 100 UNITS/ML PEN 50 UNITS SC (18:21)
--- NOTE | 2017-10-31 19:10 | PCM.HP.STD ---
Problem List (1) PAOD (peripheral arterial occlusive disease) Status: Chronic (2) Infection of amputation stump of left lower extremity Status: Acute (3) Dehiscence of amputation stump Status: Acute (4) Hyperlipidemia Status: Chronic Qualifiers: (5) Diabetes mellitus Status: Chronic Qualifiers: (6) Hypertension Status: Chronic Qualifiers: (7) Gait instability Status: Chronic (8) Sleep apnea Status: Chronic Qualifiers: Comment: CPAP 15 cm H20, 100% compliant (9) Neuropathy Status: Chronic Comment: secondary to diabetes (10) Anemia Status: Chronic Qualifiers: (11) Chronic pain syndrome Status: Chronic (12) Depression Status: Chronic Qualifiers: History of Present Illness Date of Admission: 10/31/17 Chief Complaint: Here for rehabilitation, strengthening, prior to discharge home with spouse. The patient is a 62 year old Male with below past medical history admitted to [facility] 10/28/2017. Dehiscence of left BKA stump. Infected left BKA stump. Recent Zosyn, Vancomycin for Burkholderia Cepacia, MRSA. 10/28/2017 Dr. Rodriguez performed flap closure of left BKA dehiscence wound. 10/29/2017 Dr. Sanders noted empiric Vancomycin. Surgical cultures growing Enterobacter. Treated with IV Cipro, then PO Cipro. 10/31/2017 Admit to TCU with debility, here for rehabilitation, strengthening, prior to discharge home with spouse. 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) Osteomyelitis (Chronic) Personal history of Methicillin resistant Staphylococcus aureus infection (Chronic) History of left below knee amputation (Chronic) 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) Obstructive sleep apnea (Chronic) Hyperlipidemia (Chronic) Chronic pain (Chronic) Diabetes mellitus (Chronic) Venous insufficiency (Chronic) Hypertension (Chronic) Osteomyelitis (Chronic) Non-pressure chronic ulcer of left heel and midfoot with muscle involvement without evidence of necrosis (Chronic) Infection of left foot (Chronic) Hypersomnia (Chronic) Ulcer of midfoot with necrosis of muscle (Chronic) Nocturnal hypoxemia (Chronic) Abscess of left foot (Chronic) Diabetic ulcer of left foot with fat layer exposed (Chronic) Non-pressure chronic ulcer of left heel and midfoot with fat layer exposed (Chronic) 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 Venous insufficiency of both lower extremities (Chronic) S/P transmetatarsal amputation of foot (Chronic) 03/04/[address] 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) Hypertension (Chronic) Amputation of right foot with complication (Chronic) Type 2 diabetes mellitus with diabetic polyneuropathy (Chronic) Stasis dermatitis of both legs (Chronic) Sleep apnea (Chronic) CPAP 15 cm H20, 100% compliant Neuropathy (Chronic) secondary to diabetes Morbid obesity (Chronic) Anemia (Chronic) Dyslipidemia (Chronic) Left ventricular hypertrophy (Chronic) Chronic pain syndrome (Chronic) Depression (Chronic) Medical History: Medical History (Last Reviewed 09/01/17 @ 13:36 by Shanique Martinez) Personal history of Methicillin resistant Staphylococcus aureus infection (Chronic) Z86.14 Fracture of left foot (Resolved) S92.902A Non-pressure chronic ulcer of other part of right foot with fat layer exposed (Resolved) L97.512 Toe osteomyelitis, right (Resolved) M86.9 Ulcer of right lower extremity with fat layer exposed (Resolved) L97.912 Allergies cefepime Allergy (Verified 10/13/17 13:14) Hives sulfamethoxazole [From Septra] Allergy (Verified 10/13/17 13:14) turned red trimethoprim [From Septra] Allergy (Verified 10/13/17 13:14) turned red lisinopril Adverse Reaction (Verified 10/13/17 13:14) cough Home Medications: Ambulatory Orders Medication Instructions Recorded Metformin HCl [Glucophage] 1,000 mg PO BIDCM 11/15/14 Losartan Potassium [Cozaar] 100 mg PO DAILY 06/05/16 buPROPion XL [Wellbutrin Xl] 150 mg PO DAILY 01/21/17 Triamterene/Hydrochlorothiazid 1 each PO DAILY 03/24/17 [Triamterene-Hctz 37.5-25 mg Cp] Glucerna Shake 120 ml PO 4X/DAY 06/19/17 Atorvastatin Calcium [Lipitor] 40 mg PO QHS #30 tab 07/11/17 Iron Polysaccharide Complex 150 mg PO DAILYCM #30 cap 07/11/17 [Ferrex 150] Pantoprazole Sodium [Protonix] 20 mg PO BID #60 tab 07/11/17 Citalopram [Celexa] 40 mg PO DAILY 08/18/17 Gabapentin [Neurontin] 800 mg PO 4X/DAY 08/18/17 Insulin NPH Human Isophane 50 unit SQ BID 08/18/17 [Novolin N] Insulin Regular, Human [Novolin R] 20 unit SC TIDCM 08/18/17 Ciprofloxacin [Cipro IVPB] 500 mg PO Q12 10/31/17 Diazepam [Valium] 5 mg PO 4X/DAY PRN PRN #30 tab 10/31/17 Docusate Sodium [Colace] 100 mg PO BID 10/31/17 Insulin Lispro [Humalog KwikPen] 20 unit SC TIDCM 10/31/17 Insulin Lispro [Humalog KwikPen] See Protocol SC ACHS 10/31/17 Mupirocin [Bactroban] 1 applic TOPICAL DAILY 10/31/17 Nutritional Supplement [Greg - 1 packet PO BIDCM 10/31/17 ORANGE FLAVOR] Oxycodone [Oxyir] 10 mg PO Q4H PRN PRN 7 Days #60 tab 10/31/17 proMETHazine tablet [Phenergan 25 mg PO Q4H PRN PRN tablet 10/31/17 tablet] Surgical History: - - Debridement left foot ulcer with versajet including necrotic muscle and widespread debridement plantar foot and incision and drainage left foot 01/24/17, Bone biopsy calcaneal cuboid bone left foot and excisional debridement left plantar foot ulceration 10/18/16, Right foot trans metatarsal amputation 03/04/16, Partial 4th toe amputation right foot at PIP joint 12/09/15, Excisional debridement including fascia left great toe 04/03/15, Right hallux amputation at MTP joint 12/29/14, microdiscectomy ?2, deviated septal repair, ulnar nerve repair, cholecystectomy, L BKA 06/24/17, now 10/28/17 Surgical preparation left BKA stump with excision dehiscence amputation stump ulcer and partial ostectomy tibia for osteomyelitis. 2. Reconstruction with re-advancement muscle flap and bipedicle periosteal advancement flap and secondary wound closure revision. Psychiatric History: Anxiety, Depression Lives: Spouse/ Significant Other Smoking Status: Former smoker Tobacco Use: Non-smoker Alcohol: None Drugs: None - *Family History Maternal History Items: Cancer, Heart Disease Paternal History Items: Heart Disease Review of Systems Constitutional: Denies: Chills, Fever, Weight Change HEENT: Denies: Head Aches, Sinus Congestion, Sinus Drainage Cardiovascular: Denies: Chest Pain, Palpitations Respiratory: Denies: Cough, Shortness of breath at rest, Sputum production Gastrointestinal: Denies: Abdominal Pain, Nausea, Vomiting Genitourinary: Denies: Dysuria Musculoskeletal: Denies: Joint Pain, Joint Tenderness Skin: Denies: Rash, Wounds Neurological: Denies: Numbness, Tingling, Focal weakness Psychiatric: Denies: Anxiety, Depression, Homicidal Ideations, Suicidal Ideations Hematologic/ Lymphatic: Denies: Easy Bruising, Easy Bleeding VTE Information - Inpt Only VTE Present on Admission: No VTE Mechan Device Prophylaxis: Knee High MANUELA Hose VTE Pharm Prophylaxis ordered?: Yes - Physical Exam General: Alert, Oriented x3, Cooperative HEENT: Atraumatic, PERRLA, EOMI, Normocephalic Neck: Supple, No JVD, Negative Carotid Bruits Lungs: Clear to auscultation, Normal air movement Cardiovascular: Regular rate, No murmurs Abdomen: Bowel Sounds Present, Soft, Non Tender Extremities: No edema, Capillary Refill Less than 3 Seconds, - - Left BKA wound dressed, CONCHIS wrap, drain in place. Skin: No rashes, No breakdown Musculoskeletal: No Tenderness to Palpation of Joints or Extremities Neurological: Cranial nerves II-XII grossly intact Psych/Mental Status: Normal Affect, Appropriate Vital Signs Temp Pulse Resp BP Pulse Ox 96.9 F L 75 18 121/68 H 94 10/31/17 14:59 10/31/17 14:59 10/31/17 14:59 10/31/17 14:59 10/31/17 14:59 Oxygen Delivery Method Room Air Weight: 127 kg Body Mass Index (BMI) 34.9 Finger Stick Blood Glucose 168 POC Glucose 10/31/17 17:02 POC Glucose 171 H Assessment/Plan All Active Problems (Last Reviewed 09/01/17 @ 13:36 by Shanique Martinez) Infection of amputation stump of left lower extremity (Acute) Dehiscence of amputation stump (Acute) Acute osteomyelitis of left foot (Acute) Non-pressure chronic ulcer of left heel and midfoot with bone involvement without evidence of necrosis (Acute) Cellulitis (Resolved) Cellulitis and abscess of toe of left foot (Resolved) Cellulitis of great toe, left (Resolved) Cellulitis of leg (Resolved) Cellulitis of right foot (Resolved) Deep venous thrombosis (Resolved) Diabetic toe ulcer (Resolved) Fracture of left foot (Resolved) Hammer toe of right foot (Resolved) Healed ulcer of left foot on examination (Resolved) Lymphangitis (Resolved) Non-pressure chronic ulcer of other part of right foot with fat layer exposed (Resolved) Right foot infection (Resolved) Sepsis (Resolved) Skin ulcer of left great toe with fat layer exposed (Resolved) Toe osteomyelitis, right (Resolved) Ulcer of right leg (Resolved) Ulcer of right lower extremity with fat layer exposed (Resolved) Ulcer of right lower extremity with fat layer exposed (Resolved) Ulcer of right second toe with fat layer exposed (Resolved) Ulcer of toe of right foot (Resolved) Ulcer with necrosis of muscle (Resolved) Wound of left leg (Resolved) Wound of right leg (Resolved) 62 year old male with below past medical history hospitalized for infected dehisced left BKA wound, underwent flap closure with Dr. Rodriguez 10/28/2017, admitted to TCU with debility, here for rehabilitation, strengthening, prior to discharge home with spouse. Debility - PT/OT. Pain - Tylenol 1000MG Q8H PRN mild pain, Oxycodone 10MG Q4H PRN severe pain. Bowel - Miralax 17GM daily, Senna/colace 2 tablets BID, Dulcolax 10MG PO daily PRN. Pneumonia vaccination - Administer Prevnar 13 and/or Pneumovax 23 as necessary. DVT prophylaxis - Lovenox 40MG SC daily. Hyperlipidemia - Atorvastatin 40MG QHS. Depression - Bupropion XL 150MG daily, Citalopram 40MG daily. Enterobacter left BKA wound infection - Cipro 500MG Q12H, stop date per Dr. Sanders, Mupuricin ointment incision BID. Anxiety - Diazepam 5MG 4x/day PRN. Neuropathic pain - Gabapentin 800MG 4x/day. Nutrition - Glucerna Shake 120ML 4x/day, Greg 1 packet BID. Diabetes Mellitus II - Metformin 1000MG BID, NPH 50 units BID, Humalog 20 units TIDCM. Iron deficiency - Ferrex 150MG daily. Hypertension - Losartan 100MG daily, Triamterene HCTZ 37.5/25MG daily. GERD - Pantoprazole 20MG BID. Nausea - Phenergan 25MG Q4H PRN.
--- NOTE | 2017-10-31 19:20 | HP.PCM_ITS ---
Problem List (1) PAOD (peripheral arterial occlusive disease) Status: Chronic (2) Infection of amputation stump of left lower extremity Status: Acute (3) Dehiscence of amputation stump Status: Acute (4) Hyperlipidemia Status: Chronic Qualifiers: (5) Diabetes mellitus Status: Chronic Qualifiers: (6) Hypertension Status: Chronic Qualifiers: (7) Gait instability Status: Chronic (8) Sleep apnea Status: Chronic Qualifiers: Comment: CPAP 15 cm H20, 100% compliant (9) Neuropathy Status: Chronic Comment: secondary to diabetes (10) Anemia Status: Chronic Qualifiers: (11) Chronic pain syndrome Status: Chronic (12) Depression Status: Chronic Qualifiers: History of Present Illness Date of Admission: 10/31/17 Chief Complaint: Here for rehabilitation, strengthening, prior to discharge home with spouse. The patient is a 62 year old Male with below past medical history admitted to [facility] 10/28/2017. Dehiscence of left BKA stump. Infected left BKA stump. Recent Zosyn, Vancomycin for Burkholderia Cepacia, MRSA. 10/28/2017 Dr. Rodriguez performed flap closure of left BKA dehiscence wound. 10/29/2017 Dr. Sanders noted empiric Vancomycin. Surgical cultures growing Enterobacter. Treated with IV Cipro, then PO Cipro. 10/31/2017 Admit to TCU with debility, here for rehabilitation, strengthening, prior to discharge home with spouse. 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) Obstructive sleep apnea (Chronic) Hyperlipidemia (Chronic) Chronic pain (Chronic) Diabetes mellitus (Chronic) Venous insufficiency (Chronic) Hypertension (Chronic) Osteomyelitis (Chronic) Non-pressure chronic ulcer of left heel and midfoot with muscle involvement without evidence of necrosis (Chronic) Infection of left foot (Chronic) Hypersomnia (Chronic) Ulcer of midfoot with necrosis of muscle (Chronic) Nocturnal hypoxemia (Chronic) Abscess of left foot (Chronic) Diabetic ulcer of left foot with fat layer exposed (Chronic) Non-pressure chronic ulcer of left heel and midfoot with fat layer exposed ( Chronic) 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 Venous insufficiency of both lower extremities (Chronic) S/P transmetatarsal amputation of foot (Chronic) 03/04/[address] 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) Hypertension (Chronic) Amputation of right foot with complication (Chronic) Type 2 diabetes mellitus with diabetic polyneuropathy (Chronic) Stasis dermatitis of both legs (Chronic) Sleep apnea (Chronic) CPAP 15 cm H20, 100% compliant Neuropathy (Chronic) secondary to diabetes Morbid obesity (Chronic) Anemia (Chronic) Dyslipidemia (Chronic) Left ventricular hypertrophy (Chronic) Chronic pain syndrome (Chronic) Depression (Chronic) Medical History: Medical History (Last Reviewed 09/01/17 @ 13:36 by Shanique Martinez) Personal history of Methicillin resistant Staphylococcus aureus infection ( Chronic) Z86.14 Fracture of left foot (Resolved) S92.902A Non-pressure chronic ulcer of other part of right foot with fat layer exposed ( Resolved) L97.512 Toe osteomyelitis, right (Resolved) M86.9 Ulcer of right lower extremity with fat layer exposed (Resolved) L97.912 Allergies cefepime Allergy (Verified 10/13/17 13:14) Hives sulfamethoxazole [From Septra] Allergy (Verified 10/13/17 13:14) turned red trimethoprim [From Septra] Allergy (Verified 10/13/17 13:14) turned red lisinopril Adverse Reaction (Verified 10/13/17 13:14) cough Home Medications: Ambulatory Orders Medication Instructions Recorded Metformin HCl [Glucophage] 1,000 mg PO BIDCM 11/15/14 Losartan Potassium [Cozaar] 100 mg PO DAILY 06/05/16 buPROPion XL [Wellbutrin Xl] 150 mg PO DAILY 01/21/17 Triamterene/Hydrochlorothiazid 1 each PO DAILY 03/24/17 [Triamterene-Hctz 37.5-25 mg Cp] Glucerna Shake 120 ml PO 4X/DAY 06/19/17 Atorvastatin Calcium [Lipitor] 40 mg PO QHS #30 tab 07/11/17 Iron Polysaccharide Complex 150 mg PO DAILYCM #30 cap 07/11/17 [Ferrex 150] Pantoprazole Sodium [Protonix] 20 mg PO BID #60 tab 07/11/17 Citalopram [Celexa] 40 mg PO DAILY 08/18/17 Gabapentin [Neurontin] 800 mg PO 4X/DAY 08/18/17 Insulin NPH Human Isophane 50 unit SQ BID 08/18/17 [Novolin N] Insulin Regular, Human [Novolin R] 20 unit SC TIDCM 08/18/17 Ciprofloxacin [Cipro IVPB] 500 mg PO Q12 10/31/17 Diazepam [Valium] 5 mg PO 4X/DAY PRN PRN #30 tab 10/31/17 Docusate Sodium [Colace] 100 mg PO BID 10/31/17 Insulin Lispro [Humalog KwikPen] 20 unit SC TIDCM 10/31/17 Insulin Lispro [Humalog KwikPen] See Protocol SC ACHS 10/31/17 Mupirocin [Bactroban] 1 applic TOPICAL DAILY 10/31/17 Nutritional Supplement [Greg - 1 packet PO BIDCM 10/31/17 [place] FLAVOR] Oxycodone [Oxyir] 10 mg PO Q4H PRN PRN 7 Days #60 tab 10/31/17 proMETHazine tablet [Phenergan 25 mg PO Q4H PRN PRN tablet 10/31/17 tablet] Surgical History: - - Debridement left foot ulcer with versajet including necrotic muscle and widespread debridement plantar foot and incision and drainage left foot 01/24/17, Bone biopsy calcaneal cuboid bone left foot and excisional debridement left plantar foot ulceration 10/18/16, Right foot trans metatarsal amputation 03/04/16, Partial 4th toe amputation right foot at PIP joint 12/09/15, Excisional debridement including fascia left great toe 04/03/15, Right hallux amputation at MTP joint 12/29/14, microdiscectomy ?2, deviated septal repair, ulnar nerve repair, cholecystectomy, L BKA 06/24/17, now 10/28/17 Surgical preparation left BKA stump with excision dehiscence amputation stump ulcer and partial ostectomy tibia for osteomyelitis. 2. Reconstruction with re -advancement muscle flap and bipedicle periosteal advancement flap and secondary wound closure revision. Psychiatric History: Anxiety, Depression Lives: Spouse/ Significant Other Smoking Status: Former smoker Tobacco Use: Non-smoker Alcohol: None Drugs: None - *Family History Maternal History Items: Cancer, Heart Disease Paternal History Items: Heart Disease Review of Systems Constitutional: Denies: Chills, Fever, Weight Change HEENT: Denies: Head Aches, Sinus Congestion, Sinus Drainage Cardiovascular: Denies: Chest Pain, Palpitations Respiratory: Denies: Cough, Shortness of breath at rest, Sputum production Gastrointestinal: Denies: Abdominal Pain, Nausea, Vomiting Genitourinary: Denies: Dysuria Musculoskeletal: Denies: Joint Pain, Joint Tenderness Skin: Denies: Rash, Wounds Neurological: Denies: Numbness, Tingling, Focal weakness Psychiatric: Denies: Anxiety, Depression, Homicidal Ideations, Suicidal Ideations Hematologic/ Lymphatic: Denies: Easy Bruising, Easy Bleeding VTE Information - Inpt Only VTE Present on Admission: No VTE Mechan Device Prophylaxis: Knee High MANUELA Hose VTE Pharm Prophylaxis ordered?: Yes - Physical Exam General: Alert, Oriented x3, Cooperative HEENT: Atraumatic, PERRLA, EOMI, Normocephalic Neck: Supple, No JVD, Negative Carotid Bruits Lungs: Clear to auscultation, Normal air movement Cardiovascular: Regular rate, No murmurs Abdomen: Bowel Sounds Present, Soft, Non Tender Extremities: No edema, Capillary Refill Less than 3 Seconds, - - Left BKA wound dressed, CONCHIS wrap, drain in place. Skin: No rashes, No breakdown Musculoskeletal: No Tenderness to Palpation of Joints or Extremities Neurological: Cranial nerves II-XII grossly intact Psych/Mental Status: Normal Affect, Appropriate Vital Signs Temp Pulse Resp BP Pulse Ox 96.9 F L 75 18 121/68 H 94 10/31/17 14:59 10/31/17 14:59 10/31/17 14:59 10/31/17 14:59 10/31/17 14:59 Oxygen Delivery Method Room Air Weight: 127 kg Body Mass Index (BMI) 34.9 Finger Stick Blood Glucose 168 POC Glucose 10/31/17 17:02 POC Glucose 171 H Assessment/Plan All Active Problems (Last Reviewed 09/01/17 @ 13:36 by Shanique Martinez) Infection of amputation stump of left lower extremity (Acute) Dehiscence of amputation stump (Acute) Acute osteomyelitis of left foot (Acute) Non-pressure chronic ulcer of left heel and midfoot with bone involvement without evidence of necrosis (Acute) Cellulitis (Resolved) Cellulitis and abscess of toe of left foot (Resolved) Cellulitis of great toe, left (Resolved) Cellulitis of leg (Resolved) Cellulitis of right foot (Resolved) Deep venous thrombosis (Resolved) Diabetic toe ulcer (Resolved) Fracture of left foot (Resolved) Hammer toe of right foot (Resolved) Healed ulcer of left foot on examination (Resolved) Lymphangitis (Resolved) Non-pressure chronic ulcer of other part of right foot with fat layer exposed ( Resolved) Right foot infection (Resolved) Sepsis (Resolved) Skin ulcer of left great toe with fat layer exposed (Resolved) Toe osteomyelitis, right (Resolved) Ulcer of right leg (Resolved) Ulcer of right lower extremity with fat layer exposed (Resolved) Ulcer of right lower extremity with fat layer exposed (Resolved) Ulcer of right second toe with fat layer exposed (Resolved) Ulcer of toe of right foot (Resolved) Ulcer with necrosis of muscle (Resolved) Wound of left leg (Resolved) Wound of right leg (Resolved) 62 year old male with below past medical history hospitalized for infected dehisced left BKA wound, underwent flap closure with Dr. Rodriguez 10/28/2017, admitted to TCU with debility, here for rehabilitation, strengthening, prior to discharge home with spouse. * Debility - PT/OT. * Pain - Tylenol 1000MG Q8H PRN mild pain, Oxycodone 10MG Q4H PRN severe pain. * Bowel - Miralax 17GM daily, Senna/colace 2 tablets BID, Dulcolax 10MG PO daily PRN. * Pneumonia vaccination - Administer Prevnar 13 and/or Pneumovax 23 as necessary. * DVT prophylaxis - Lovenox 40MG SC daily. * Hyperlipidemia - Atorvastatin 40MG QHS. * Depression - Bupropion XL 150MG daily, Citalopram 40MG daily. * Enterobacter left BKA wound infection - Cipro 500MG Q12H, stop date per Dr. Sanders, Mupuricin ointment incision BID. * Anxiety - Diazepam 5MG 4x/day PRN. * Neuropathic pain - Gabapentin 800MG 4x/day. * Nutrition - Glucerna Shake 120ML 4x/day, Greg 1 packet BID. * Diabetes Mellitus II - Metformin 1000MG BID, NPH 50 units BID, Humalog 20 units TIDCM. * Iron deficiency - Ferrex 150MG daily. * Hypertension - Losartan 100MG daily, Triamterene HCTZ 37.5/25MG daily. * GERD - Pantoprazole 20MG BID. * Nausea - Phenergan 25MG Q4H PRN.
[2017-10-31 21:21] LABS: Bedside Glucose 250 mg/dL (70-110)
[2017-10-31] MEDS: Atorvastatin Calcium 40 MG Tablet PO (22:32)
[2017-11-01] MEDS: Glucerna Shake 120 ML LIQUID PO ×4 (06:37→22:00)
[2017-11-01] MEDS: Gabapentin 400 MG Capsule 800 MG PO ×4 (06:40→22:00)
[2017-11-01] MEDS: Pantoprazole Sodium 20 MG Tablet PO ×2 (06:40→17:11)
[2017-11-01] MEDS: Senna/Docusate Sodium 1 Tablet 2 TABLET PO ×2 (06:40→17:11)
[2017-11-01] MEDS: buPROPion (XL) 150 MG TABLET.XL PO (06:40)
[2017-11-01] MEDS: Losartan Potassium 100 MG Tablet PO (06:41)
[2017-11-01] MEDS: Ciprofloxacin 500 MG Tablet PO ×2 (06:41→17:11)
[2017-11-01] MEDS: Triamterene 37.5MG/Hctz 25MG Capsule 1 CAP PO (06:41)
[2017-11-01] MEDS: Citalopram 20 MG Tablet 40 MG PO (06:41)
[2017-11-01] MEDS: oxyCODONE 5 MG Tablet 10 MG PO ×3 (06:41→22:08)
[2017-11-01] MEDS: Enoxaparin 40 MG/0.4 ML Syringe SC (06:42)
[2017-11-01] MEDS: Polyethylene Glycol 3350 17 GM PACKET PO (06:45)
[2017-11-01] MEDS: Insulin NPH Human 100 UNITS/ML PEN 50 UNITS SC ×2 (06:46→17:16)
[2017-11-01 07:03] LABS: Absolute Lymphocyte Count 1.03 X10^3/ul (0.83-4.51); Absolute Neutrophil Count 3.7 X10^3/uL (2.0-7.7); Basophil# 0.02 X10^3/uL; Basophil% 0.4 % (0-1); Eosinophil# 0.35 X10^3/uL; Eosinophils% 6.3 % (0-5); Hematocrit 32.9 % (40-54); Hemoglobin 10.2 g/dl (13.0-16.5); Lymphocyte # 1.03 X10^3/ul (4.0); Lymphocyte % 18.6 % (19-41); Mean Platelet Vol. 9.1 fl (6.2-12.0); Monocyte# 0.39 X10^3/uL; Monocyte% 7.1 % (0-10); Neutrophil # 3.73 X10^3/uL (2.7-7.7); Neutrophil % 67.4 % (47-70); Platelet Count 304 K/mm3 (150-450); RBC Distribution Width CV 14.6 % (11.6-14.6); RBC Distribution Width SD 45.1 fl (35.1-43.9); Red Blood Count 3.78 M/mm3 (4.6-6.2); White Blood Count 5.5 K/mm3 (4.4-11.0)
[2017-11-01 07:05] LABS: POSITIVE COUNT NO; POSITIVE DIFFERENTIAL NO; POSITIVE MORPHOLOGY NO
[2017-11-01 07:11] LABS: Bedside Glucose 162 mg/dL (70-110)
[2017-11-01 07:28] LABS: Anion Gap 7 (5-15); BUN 26 mg/dL (7-18); BUN/Creat Ratio 24.1 RATIO (10-20); Calcium,Total 9.1 mg/dL (8.5-10.1); Chloride 99 mmol/L (98-107); Creatinine, Serum 1.08 mg/dL (0.70-1.30); EST Glomerular Filtration Rate 74 mL/min (>60); Est Glom Filt Rate - Afr Amer 89 mL/min (>60); Estimated Creatinine Clearance 85.85 ml/min; Glucose 149 mg/dL (74-106); Potassium 4.3 mmol/L (3.5-5.1); Sodium Level 137 mmol/L (136-145)
[2017-11-01] MEDS: metFORMIN HCl 1,000 MG Tablet 1000 MG PO ×2 (08:21→17:10)
[2017-11-01] MEDS: Insulin Lispro 100 UNIT/ML INSULN.PEN 20 UNIT SC ×3 (08:21→17:16)
[2017-11-01] MEDS: Iron Polysaccharide Complex 150 MG CAPSULE PO (08:22)
[2017-11-01] MEDS: diazePAM 5 MG Tablet PO ×2 (08:26→14:11)
[2017-11-01] MEDS: Mupirocin Ointment 22gm Tube 1 APPLIC TOPICAL (09:47)
[2017-11-01 09:58] VITALS: RESP 18
[2017-11-01 10:55] LABS: Bedside Glucose 165 mg/dL (70-110)
[2017-11-01] MEDS: Tuberculin,Purif.prot.deriv. 50 TU/ML Vial 5 ML ID (12:10)
[2017-11-01 16:00] VITALS: BP 131/74; PULSE 74; RESP 18; TEMP 36.7; O2SAT 100
[2017-11-01 17:21] LABS: Bedside Glucose 120 mg/dL (70-110)
[2017-11-01 20:56] LABS: Bedside Glucose 170 mg/dL (70-110)
[2017-11-01] MEDS: Atorvastatin Calcium 40 MG Tablet PO (22:00)
[2017-11-02] MEDS: oxyCODONE 5 MG Tablet 10 MG PO ×4 (02:11→20:31)
[2017-11-02] MEDS: Gabapentin 400 MG Capsule 800 MG PO ×4 (05:13→20:31)
[2017-11-02] MEDS: Glucerna Shake 120 ML LIQUID PO ×4 (05:13→20:31)
[2017-11-02] MEDS: Enoxaparin 40 MG/0.4 ML Syringe SC (05:14)
[2017-11-02] MEDS: Citalopram 20 MG Tablet 40 MG PO (05:14)
[2017-11-02] MEDS: Senna/Docusate Sodium 1 Tablet 2 TABLET PO ×2 (05:14→17:23)
[2017-11-02] MEDS: Losartan Potassium 100 MG Tablet PO (05:14)
[2017-11-02] MEDS: buPROPion (XL) 150 MG TABLET.XL PO (05:14)
[2017-11-02] MEDS: Pantoprazole Sodium 20 MG Tablet PO ×2 (05:14→17:22)
[2017-11-02] MEDS: Triamterene 37.5MG/Hctz 25MG Capsule 1 CAP PO (05:14)
[2017-11-02] MEDS: Ciprofloxacin 500 MG Tablet PO ×2 (05:14→17:22)
[2017-11-02] MEDS: Mupirocin Ointment 22gm Tube 1 APPLIC TOPICAL ×2 (05:16→20:30)
[2017-11-02] MEDS: Insulin NPH Human 100 UNITS/ML PEN 50 UNITS SC ×2 (06:48→17:32)
[2017-11-02 07:11] LABS: Bedside Glucose 160 mg/dL (70-110)
[2017-11-02] MEDS: metFORMIN HCl 1,000 MG Tablet 1000 MG PO ×2 (08:06→17:22)
[2017-11-02] MEDS: Iron Polysaccharide Complex 150 MG CAPSULE PO (08:06)
[2017-11-02] MEDS: Insulin Lispro 100 UNIT/ML INSULN.PEN 20 UNIT SC ×3 (08:08→17:31)
[2017-11-02 10:50] LABS: Bedside Glucose 232 mg/dL (70-110)
[2017-11-02 15:00] VITALS: BP 145/68; PULSE 79; RESP 18; TEMP 36.8; O2SAT 100
[2017-11-02] MEDS: diazePAM 5 MG Tablet PO (15:24)
[2017-11-02 17:31] LABS: Bedside Glucose 150 mg/dL (70-110)
--- NOTE | 2017-11-02 17:36 | NURSING ---
pt c/o severe pain to stump this evening. Dr Fernández notified, new order for oxyir 10mg x1 now.
[2017-11-02] MEDS: Atorvastatin Calcium 40 MG Tablet PO (20:31)
[2017-11-02 20:55] LABS: Bedside Glucose 234 mg/dL (70-110)
[2017-11-03] MEDS: oxyCODONE 5 MG Tablet 10 MG PO ×4 (01:08→21:57)
[2017-11-03] MEDS: Insulin NPH Human 100 UNITS/ML PEN 50 UNITS SC ×2 (06:27→17:41)
[2017-11-03] MEDS: Enoxaparin 40 MG/0.4 ML Syringe SC (06:28)
[2017-11-03] MEDS: Pantoprazole Sodium 20 MG Tablet PO ×2 (06:29→17:40)
[2017-11-03] MEDS: Triamterene 37.5MG/Hctz 25MG Capsule 1 CAP PO (06:29)
[2017-11-03] MEDS: Losartan Potassium 100 MG Tablet PO (06:29)
[2017-11-03] MEDS: buPROPion (XL) 150 MG TABLET.XL PO (06:29)
[2017-11-03] MEDS: Citalopram 20 MG Tablet 40 MG PO (06:29)
[2017-11-03] MEDS: Ciprofloxacin 500 MG Tablet PO ×2 (06:29→17:39)
[2017-11-03] MEDS: Gabapentin 400 MG Capsule 800 MG PO ×4 (06:30→21:55)
[2017-11-03] MEDS: Glucerna Shake 120 ML LIQUID PO ×4 (06:32→21:55)
[2017-11-03 07:23] LABS: Erythrocyte Sedimentation Rate 51 mm/hr (0-20)
[2017-11-03 08:16] LABS: Bedside Glucose 186 mg/dL (70-110)
[2017-11-03] MEDS: Insulin Lispro 100 UNIT/ML INSULN.PEN 20 UNIT SC ×3 (08:17→17:41)
[2017-11-03] MEDS: metFORMIN HCl 1,000 MG Tablet 1000 MG PO ×2 (08:18→17:40)
[2017-11-03] MEDS: Iron Polysaccharide Complex 150 MG CAPSULE PO (08:18)
[2017-11-03] MEDS: Mupirocin Ointment 22gm Tube 1 APPLIC TOPICAL (08:24)
[2017-11-03] MEDS: diazePAM 5 MG Tablet PO (08:43)
--- NOTE | 2017-11-03 08:45 | NURSING ---
Addendum entered by Wendi Dan 11/03/17 13:08: Message left for clinical staff at Dr. Rodriguez's office regarding change in wound. Original Note: Dressing changed to L stump wound per orders. Stump with 1+ edema and marked erythema surrounding incision. Moderate amount of serosanguinous drainage.
[2017-11-03 11:40] LABS: Bedside Glucose 226 mg/dL (70-110)
--- NOTE | 2017-11-03 14:32 | CASEMGMT ---
SW met with pt and completed psychosocial Assessment. Pt expressing interest in changing HCPOA from dgt to pt friend Claudia Reddy, with whom pt lives. SW will followup to assist with this. CHRIS Levi
--- NOTE | 2017-11-03 15:17 | PCM.PN.RX ---
Progress Note - Pharmacy Subjective: TCU Admission Objective: Allergies cefepime Allergy (Verified 10/13/17 13:14) Hives sulfamethoxazole [From ] Allergy (Verified 10/13/17 13:14) turned red trimethoprim [From Octra] Allergy (Verified 10/13/17 13:14) turned red lisinopril Adverse Reaction (Verified 10/13/17 13:14) cough Current Medications Generic Name Dose Route Start Last Admin Trade Name Freq PRN Reason Stop Dose Admin Acetaminophen 1,000 mg 10/31/17 19:39 Tylenol PO Q8H PRN PRN MILD PAIN (1-310) Atorvastatin Calcium 40 mg 10/31/17 22:00 11/02/17 20:31 Lipitor PO 40 mg QHS SWATI Administration Bisacodyl 10 mg 10/31/17 16:30 Dulcolax PO PRN PRN Constipation Bupropion HCl 150 mg 11/01/17 06:00 11/03/17 06:29 Wellbutrin Xl PO 150 mg DAILY SWATI Administration Ciprofloxacin HCl 500 mg 10/31/17 18:00 11/03/17 06:29 Cipro PO 12/09/17 18:00 500 mg Q12 SWATI Administration Citalopram Hydrobromide 40 mg 11/01/17 06:00 11/03/17 06:29 Celexa PO 40 mg DAILY SWATI Administration Diazepam 5 mg 10/31/17 16:25 11/03/17 08:43 Valium PO 5 mg 4X/DAY PRN PRN Administration SPASMS Enoxaparin Sodium 40 mg 11/01/17 06:00 11/03/17 06:28 Lovenox SC 40 mg DAILY@0600 SWATI Administration Gabapentin 800 mg 10/31/17 17:00 11/03/17 11:06 Neurontin PO 800 mg 4X/DAY SWATI Administration Insulin Human Lispro 20 unit 10/31/17 17:45 11/03/17 12:09 Humalog Kwikpen (Bkc) SC 20 units TIDCM SWATI Administration Insulin Human NPH 50 units 10/31/17 18:00 11/03/17 06:27 Humulin N (Bkc) SC 50 units BID SWATI Administration Losartan Potassium 100 mg 11/01/17 06:00 11/03/17 06:29 Cozaar PO 100 mg DAILY SWATI Administration Metformin HCl 1,000 mg 10/31/17 17:00 11/03/17 08:18 Glucophage PO 1,000 mg BIDCM SWATI Administration Mupirocin 1 applic 11/01/17 06:00 11/03/17 08:24 Bactroban TOPICAL 1 applicatio DAILY SWATI Administration Protocol Nutritional Formula 1 packet 10/31/17 17:00 11/03/17 08:18 Greg - [place] Flavor PO 1 packet BIDCM SWATI Administration Nutritional Formula (Lactose Free) 120 ml 10/31/17 17:00 11/03/17 11:09 Glucerna Shake PO 120 ml 4X/DAY SWATI Administration Oxycodone HCl 10 mg 10/31/17 16:25 11/03/17 11:05 Oxyir PO 10 mg Q4H PRN PRN Administration SEVERE PAIN (6-10/10) Pantoprazole Sodium 20 mg 10/31/17 18:00 11/03/17 06:29 Protonix PO 20 mg BID SWATI Administration Polyethylene Glycol 17 gm 11/01/17 06:00 11/03/17 06:30 Miralax PO Not Given DAILY COUNTS INCLUDE 234 BEDS AT THE [facility] Polysaccharide Iron Complex 150 mg 11/01/17 08:00 11/03/17 08:18 Ferrex 150 PO 150 mg DAILYCM COUNTS INCLUDE 234 BEDS AT THE [facility] Administration Promethazine HCl 25 mg 10/31/17 16:25 Phenergan Tablet PO Q4H PRN PRN NAUSEA/VOMITING Senna/Docusate Sodium 2 tablet 10/31/17 18:00 11/03/17 06:30 Senokot-S, Yael-Colace PO Not Given BID COUNTS INCLUDE 234 BEDS AT THE [facility] Triamterene/HCTZ 1 cap 11/01/17 06:00 11/03/17 06:29 Dyazide (G) PO 1 cap DAILY SWATI Administration Vital Signs Temp Pulse Resp BP Pulse Ox 98.2 F 79 18 145/68 H 100 11/02/17 15:00 11/02/17 15:00 11/02/17 15:00 11/02/17 15:00 11/02/17 15:00 Oxygen Delivery Method Room Air Weight: 127 kg Body Mass Index (BMI) 34.9 Finger Stick Blood Glucose 168 Sodium 137 mmol/L (136-145) 11/01/17 06:46 Potassium 4.3 mmol/L (3.5-5.1) 11/01/17 06:46 Chloride 99 mmol/L (98-107) 11/01/17 06:46 Carbon Dioxide 31.0 mmol/L (21.0-32.0) 11/01/17 06:46 Anion Gap 7 (5-15) 11/01/17 06:46 BUN 26 mg/dL (7-18) H 11/01/17 06:46 Creatinine 1.08 mg/dL (0.70-1.30) 11/01/17 06:46 Est GFR (MDRD) Af Amer 89 mL/min (>60) 11/01/17 06:46 Est GFR (MDRD) Non-Af 74 mL/min (>60) 11/01/17 06:46 BUN/Creatinine Ratio 24.1 RATIO (10-20) H 11/01/17 06:46 Glucose 149 mg/dL (74-106) H 11/01/17 06:46 Assessment/Plan: 1) Pain APAP for mild pain, oxycodone for severe pain, diazepam for spasm, gabapentin. Continue to monitor prn medication use, daily pain scores. 2) HCTZ Triamterene/HCTZ, losartan. Continue to monitor renal function, electrolytes, BP/HR. 3) DM2 Insulin NPH twice daily, lispro with meals, metformin, atorvastatin. Continue to monitor BGT, renal function, lipids, s/s hyper/hypoglycemia. 4) GI Pantoprazole daily, prn promethazine. Continue to monitor prn medication use, for s/s GI distress. 5) DVT PPx Enoxaparin daily. Continue to monitor s/s bleeding/clot. 6) Nutrition Glucerna, Fe, Greg. Continue to monitor clinically. Psychotropic Medications: 7) Depression Bupropion, citalopram. Continue to monitor s/s depression. Unnecessary Medications: None Bowel Regimen: 8) Senna/s, PEG, prn bisacodyl. Continue to monitor prn medication use, for constipation/diarrhea. Date of Note:: 11/03/17 - Provider Comments Provider responsibility: Provider responsible to enter orders to implement recommendations
--- NOTE | 2017-11-03 15:23 | PHA.CONS_ITS ---
Progress Note - Pharmacy Subjective: TCU Admission Objective: Allergies cefepime Allergy (Verified 10/13/17 13:14) Hives sulfamethoxazole [From ] Allergy (Verified 10/13/17 13:14) turned red trimethoprim [From Octra] Allergy (Verified 10/13/17 13:14) turned red lisinopril Adverse Reaction (Verified 10/13/17 13:14) cough Current Medications Generic Name Dose Route Start Last Admin Trade Name Freq PRN Reason Stop Dose Admin Acetaminophen 1,000 mg 10/31/17 19:39 Tylenol PO Q8H PRN PRN MILD PAIN (1-310) Atorvastatin Calcium 40 mg 10/31/17 22:00 11/02/17 20:31 Lipitor PO 40 mg QHS SWATI Administration Bisacodyl 10 mg 10/31/17 16:30 Dulcolax PO PRN PRN Constipation Bupropion HCl 150 mg 11/01/17 06:00 11/03/17 06:29 Wellbutrin Xl PO 150 mg DAILY SWATI Administration Ciprofloxacin HCl 500 mg 10/31/17 18:00 11/03/17 06:29 Cipro PO 12/09/17 18:00 500 mg Q12 SWATI Administration Citalopram Hydrobromide 40 mg 11/01/17 06:00 11/03/17 06:29 Celexa PO 40 mg DAILY SWATI Administration Diazepam 5 mg 10/31/17 16:25 11/03/17 08:43 Valium PO 5 mg 4X/DAY PRN PRN Administration SPASMS Enoxaparin Sodium 40 mg 11/01/17 06:00 11/03/17 06:28 Lovenox SC 40 mg DAILY@0600 SWATI Administration Gabapentin 800 mg 10/31/17 17:00 11/03/17 11:06 Neurontin PO 800 mg 4X/DAY SWATI Administration Insulin Human Lispro 20 unit 10/31/17 17:45 11/03/17 12:09 Humalog Kwikpen (Bkc) SC 20 units TIDCM SWATI Administration Insulin Human NPH 50 units 10/31/17 18:00 11/03/17 06:27 Humulin N (Bkc) SC 50 units BID SWATI Administration Losartan Potassium 100 mg 11/01/17 06:00 11/03/17 06:29 Cozaar PO 100 mg DAILY SWATI Administration Metformin HCl 1,000 mg 10/31/17 17:00 11/03/17 08:18 Glucophage PO 1,000 mg BIDCM SWATI Administration Mupirocin 1 applic 11/01/17 06:00 11/03/17 08:24 Bactroban TOPICAL 1 applicatio DAILY SWATI Administration Protocol Nutritional Formula 1 packet 10/31/17 17:00 11/03/17 08:18 Greg - [place] Flavor PO 1 packet BIDCM SWATI Administration Nutritional Formula (Lactose Free) 120 ml 10/31/17 17:00 11/03/17 11:09 Glucerna Shake PO 120 ml 4X/DAY SWATI Administration Oxycodone HCl 10 mg 10/31/17 16:25 11/03/17 11:05 Oxyir PO 10 mg Q4H PRN PRN Administration SEVERE PAIN (6-10/10) Pantoprazole Sodium 20 mg 10/31/17 18:00 11/03/17 06:29 Protonix PO 20 mg BID SWATI Administration Polyethylene Glycol 17 gm 11/01/17 06:00 11/03/17 06:30 Miralax PO Not Given DAILY [facility] Polysaccharide Iron Complex 150 mg 11/01/17 08:00 11/03/17 08:18 Ferrex 150 PO 150 mg DAILYCM [facility] Administration Promethazine HCl 25 mg 10/31/17 16:25 Phenergan Tablet PO Q4H PRN PRN NAUSEA/VOMITING Senna/Docusate Sodium 2 tablet 10/31/17 18:00 11/03/17 06:30 Senokot-S, Yael-Colace PO Not Given BID [facility] Triamterene/HCTZ 1 cap 11/01/17 06:00 11/03/17 06:29 Dyazide (G) PO 1 cap DAILY SWATI Administration Vital Signs Temp Pulse Resp BP Pulse Ox 98.2 F 79 18 145/68 H 100 11/02/17 15:00 11/02/17 15:00 11/02/17 15:00 11/02/17 15:00 11/02/17 15:00 Oxygen Delivery Method Room Air Weight: 127 kg Body Mass Index (BMI) 34.9 Finger Stick Blood Glucose 168 Sodium 137 mmol/L (136-145) 11/01/17 06:46 Potassium 4.3 mmol/L (3.5-5.1) 11/01/17 06:46 Chloride 99 mmol/L (98-107) 11/01/17 06:46 Carbon Dioxide 31.0 mmol/L (21.0-32.0) 11/01/17 06:46 Anion Gap 7 (5-15) 11/01/17 06:46 BUN 26 mg/dL (7-18) H 11/01/17 06:46 Creatinine 1.08 mg/dL (0.70-1.30) 11/01/17 06:46 Est GFR (MDRD) Af Amer 89 mL/min (>60) 11/01/17 06:46 Est GFR (MDRD) Non-Af 74 mL/min (>60) 11/01/17 06:46 BUN/Creatinine Ratio 24.1 RATIO (10-20) H 11/01/17 06:46 Glucose 149 mg/dL (74-106) H 11/01/17 06:46 Assessment/Plan: 1) Pain APAP for mild pain, oxycodone for severe pain, diazepam for spasm, gabapentin. Continue to monitor prn medication use, daily pain scores. 2) HCTZ Triamterene/HCTZ, losartan. Continue to monitor renal function, electrolytes , BP/HR. 3) DM2 Insulin NPH twice daily, lispro with meals, metformin, atorvastatin. Continue to monitor BGT, renal function, lipids, s/s hyper/hypoglycemia. 4) GI Pantoprazole daily, prn promethazine. Continue to monitor prn medication use , for s/s GI distress. 5) DVT PPx Enoxaparin daily. Continue to monitor s/s bleeding/clot. 6) Nutrition Glucerna, Fe, Greg. Continue to monitor clinically. Psychotropic Medications: 7) Depression Bupropion, citalopram. Continue to monitor s/s depression. Unnecessary Medications: None Bowel Regimen: 8) Senna/s, PEG, prn bisacodyl. Continue to monitor prn medication use, for constipation/diarrhea. Date of Note:: 11/03/17 - Provider Comments Provider responsibility: Provider responsible to enter orders to implement recommendations
[2017-11-03 15:38] VITALS: BP 127/68; PULSE 73; RESP 18; TEMP 36.3; O2SAT 98
[2017-11-03 17:01] LABS: Bedside Glucose 153 mg/dL (70-110)
[2017-11-03] MEDS: Senna/Docusate Sodium 1 Tablet 2 TABLET PO (17:40)
[2017-11-03 21:11] LABS: Bedside Glucose 161 mg/dL (70-110)
[2017-11-03] MEDS: Atorvastatin Calcium 40 MG Tablet PO (21:55)
[2017-11-04] MEDS: oxyCODONE 5 MG Tablet 10 MG PO ×3 (04:10→17:00)
[2017-11-04] MEDS: Mupirocin Ointment 22gm Tube 1 APPLIC TOPICAL (04:28)
[2017-11-04] MEDS: buPROPion (XL) 150 MG TABLET.XL PO (04:29)
[2017-11-04] MEDS: Pantoprazole Sodium 20 MG Tablet PO ×2 (04:29→17:00)
[2017-11-04] MEDS: Triamterene 37.5MG/Hctz 25MG Capsule 1 CAP PO (04:29)
[2017-11-04] MEDS: Citalopram 20 MG Tablet 40 MG PO (04:29)
[2017-11-04] MEDS: Senna/Docusate Sodium 1 Tablet 2 TABLET PO ×2 (04:29→16:59)
[2017-11-04] MEDS: Gabapentin 400 MG Capsule 800 MG PO ×4 (04:30→20:39)
[2017-11-04] MEDS: Glucerna Shake 120 ML LIQUID PO ×4 (04:30→20:39)
[2017-11-04] MEDS: Enoxaparin 40 MG/0.4 ML Syringe SC (04:30)
[2017-11-04] MEDS: Polyethylene Glycol 3350 17 GM PACKET PO (04:30)
[2017-11-04] MEDS: Losartan Potassium 100 MG Tablet PO (04:36)
[2017-11-04] MEDS: Ciprofloxacin 500 MG Tablet PO ×2 (06:34→17:00)
[2017-11-04] MEDS: Insulin NPH Human 100 UNITS/ML PEN 50 UNITS SC ×2 (06:34→17:45)
[2017-11-04 06:55] LABS: Bedside Glucose 153 mg/dL (70-110)
[2017-11-04] MEDS: Insulin Lispro 100 UNIT/ML INSULN.PEN 20 UNIT SC ×3 (08:15→17:46)
[2017-11-04] MEDS: Iron Polysaccharide Complex 150 MG CAPSULE PO (08:16)
[2017-11-04] MEDS: metFORMIN HCl 1,000 MG Tablet 1000 MG PO ×2 (08:16→16:59)
[2017-11-04 11:55] LABS: Bedside Glucose 128 mg/dL (70-110)
[2017-11-04] MEDS: diazePAM 5 MG Tablet PO (12:52)
--- NOTE | 2017-11-04 15:13 | PN.SURG_ITS ---
Subjective: Postop #7 Patient is resting comfortably. He is tired from therapy. - Physical Exam General: Alert, Oriented x3 HEENT: PERRLA, EOMI Oral: Moist Mucosa Skin: Incision - stump incision intact. Some increased swelling present with associated hyperemia. No evidence of fluctuance or purulent drainage. Increased swelling could be from increased activity at therapy. Neurological: Cranial nerves II-XII grossly intact Psych/Mental Status: Normal Affect, Appropriate Vital Signs Temp Pulse Resp BP Pulse Ox 97.3 F L 73 18 127/68 H 98 11/03/17 15:38 11/03/17 15:38 11/03/17 15:38 11/03/17 15:38 11/03/17 15:38 Oxygen Delivery Method Room Air Weight: 287 lb 6 oz Body Mass Index (BMI) 34.9 Finger Stick Blood Glucose 168 Intake and Output for Last 24 Hours 11/02/17 11/03/17 11/04/17 23:59 23:59 23:59 Intake Total 1240 / 1240 1300 / 1300 957 / 957 Output Total 2525 / 2525 1340 / 1340 1405 / 1405 Balance -1285 / -1285 -40 / -40 -448 / -448 POC Glucose 11/04/17 11/04/17 11/03/17 11:52 06:34 21:01 POC Glucose 128 H 153 H 161 H 11/03/17 16:52 POC Glucose 153 H Drainage 40 ml yesterday. 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 involvement without evidence of necrosis (Acute) Cellulitis (Resolved) Cellulitis and abscess of toe of left foot (Resolved) Cellulitis of great toe, left (Resolved) Cellulitis of leg (Resolved) Cellulitis of right foot (Resolved) Deep venous thrombosis (Resolved) Diabetic toe ulcer (Resolved) Fracture of left foot (Resolved) Hammer toe of right foot (Resolved) Healed ulcer of left foot on examination (Resolved) Lymphangitis (Resolved) Non-pressure chronic ulcer of other part of right foot with fat layer exposed ( Resolved) Right foot infection (Resolved) Sepsis (Resolved) Skin ulcer of left great toe with fat layer exposed (Resolved) Toe osteomyelitis, right (Resolved) Ulcer of right leg (Resolved) Ulcer of right lower extremity with fat layer exposed (Resolved) Ulcer of right lower extremity with fat layer exposed (Resolved) Ulcer of right second toe with fat layer exposed (Resolved) Ulcer of toe of right foot (Resolved) Ulcer with necrosis of muscle (Resolved) Wound of left leg (Resolved) Wound of right leg (Resolved) 1. Infection of left BKA stump 2. Dehiscence of left BKA stump. 3. Osteomyelitis. 4. History of MRSA. 5. Diabetes mellitus. 6. Former smoker. His operative culture showed Enterobacter cloacae. He was discharged on Cipro. His amputation stump incision is intact. There is more swelling since he has been here. Some redness present. The stump is still soft. It could be related to his increased therapy or could be the start of another infection. There is no fluctuance or purulent drainage. He has a history of not doing consistently well on oral antibiotics. Will add Zosyn IV to see if that improves the situation. His Pathology from his surgery on 10/28/17 is available. It showed acute and chronic osteomyelitis. Will give the Zosyn for at least 2 weeks. Will reassess at that time. I suspect he will need remote computer terminal operator IV antibiotics. Am considering a PICC line.
[2017-11-04] MEDS: Acetaminophen 500 MG Tablet 1000 MG PO (15:23)
--- NOTE | 2017-11-04 15:24 | NURSING ---
Dr. Rodriguez changed pt dressing. Added Philipp to armando for reddness on stump. This RN updated on increase of drainage around the NEY drain. Staff to monitor dressing and keep as dry as possible.
[2017-11-04 15:49] VITALS: BP 124/63; PULSE 78; RESP 18; TEMP 36.3; O2SAT 96
--- NOTE | 2017-11-04 16:23 | NURSING ---
Eboni called from Dr. Watson office wondering if while pt was getting gallbladder taken out if that surgeon would place the suprapubic cath at the same time, due to pt taking Coumadin and needing to convert to heparin for procedures. call back number for Eboni [phone] ext [phone].
[2017-11-04 16:36] LABS: Bedside Glucose 147 mg/dL (70-110)
[2017-11-04] MEDS: Atorvastatin Calcium 40 MG Tablet PO (20:39)
[2017-11-04 21:21] LABS: Bedside Glucose 214 mg/dL (70-110)
[2017-11-04] MEDS: 0.9% NaCl IVPB Med Flush (250 mL) 15 ML IV (21:56)
[2017-11-04] MEDS: Piperacil/Tazobactam 3.375 GM/50 ML ML IV (21:57)
[2017-11-04] MEDS: 0.9% NaCl Peripheral Flush Adult/Peds IV (21:57)
[2017-11-05] MEDS: Ciprofloxacin 500 MG Tablet PO ×2 (06:10→17:13)
[2017-11-05] MEDS: buPROPion (XL) 150 MG TABLET.XL PO (06:10)
[2017-11-05] MEDS: Triamterene 37.5MG/Hctz 25MG Capsule 1 CAP PO (06:10)
[2017-11-05] MEDS: Gabapentin 400 MG Capsule 800 MG PO ×4 (06:10→20:12)
[2017-11-05] MEDS: Piperacil/Tazobactam 3.375 GM/50 ML ML IV ×3 (06:10→21:52)
[2017-11-05] MEDS: Losartan Potassium 100 MG Tablet PO (06:10)
[2017-11-05] MEDS: Enoxaparin 40 MG/0.4 ML Syringe SC (06:10)
[2017-11-05] MEDS: Pantoprazole Sodium 20 MG Tablet PO ×2 (06:10→17:13)
[2017-11-05] MEDS: Citalopram 20 MG Tablet 40 MG PO (06:10)
[2017-11-05] MEDS: Glucerna Shake 120 ML LIQUID PO ×4 (06:12→20:12)
[2017-11-05] MEDS: oxyCODONE 5 MG Tablet 10 MG PO ×4 (06:12→20:22)
[2017-11-05 07:21] LABS: Bedside Glucose 192 mg/dL (70-110)
[2017-11-05] MEDS: Iron Polysaccharide Complex 150 MG CAPSULE PO (07:59)
[2017-11-05] MEDS: metFORMIN HCl 1,000 MG Tablet 1000 MG PO ×2 (07:59→17:13)
[2017-11-05] MEDS: Insulin Lispro 100 UNIT/ML INSULN.PEN 20 UNIT SC ×2 (08:00→11:43)
[2017-11-05] MEDS: Insulin NPH Human 100 UNITS/ML PEN 50 UNITS SC ×2 (08:00→17:12)
[2017-11-05] MEDS: Mupirocin Ointment 22gm Tube 1 APPLIC TOPICAL (08:08)
[2017-11-05] MEDS: diazePAM 5 MG Tablet PO ×2 (10:29→20:25)
[2017-11-05 11:31] LABS: Bedside Glucose 150 mg/dL (70-110)
--- NOTE | 2017-11-05 12:00 | CASEMGMT ---
Plan of Care meeting held on this date with pt and friend Lolita present. Pt is progressing with therapy. Plan at this time is to continue with treatment plan in TCU. Pt made aware insurance update is due today and continued services is not guaranteed. Pt plans to return home with friend Lolita who confirms she can assist as needed upon d/c. Will continue with services in TCU at this time. CHRIS Levi
--- NOTE | 2017-11-05 12:22 | NURSING ---
Up in Dining Room eating lunch with family, talking and laughing. Asked about pain, pt states meds were not helpful, still at an 8, states the other night they had to call the Dr. and get more oxy. MARY Olvera notified.
[2017-11-05] MEDS: 0.9% NaCl Peripheral Flush Adult/Peds IV ×2 (13:56→21:51)
[2017-11-05 16:00] VITALS: BP 134/76; PULSE 77; RESP 18; TEMP 36.6; O2SAT 96
[2017-11-05 17:01] LABS: Bedside Glucose 116 mg/dL (70-110)
--- NOTE | 2017-11-05 17:26 | NURSING ---
BS 116 isaac, new orders given to hold humalog and give have of NPH, which would be 25 units. pt updated
[2017-11-05] MEDS: Atorvastatin Calcium 40 MG Tablet PO (20:12)
[2017-11-05 21:30] LABS: Bedside Glucose 158 mg/dL (70-110)
[2017-11-05] MEDS: 0.9% NaCl IVPB Med Flush (250 mL) 15 ML IV (21:52)
[2017-11-06] MEDS: oxyCODONE 5 MG Tablet 10 MG PO ×5 (02:47→21:57)
[2017-11-06] MEDS: Ciprofloxacin 500 MG Tablet PO ×2 (06:21→16:50)
[2017-11-06] MEDS: Enoxaparin 40 MG/0.4 ML Syringe SC (06:21)
[2017-11-06] MEDS: Citalopram 20 MG Tablet 40 MG PO (06:21)
[2017-11-06] MEDS: Pantoprazole Sodium 20 MG Tablet PO ×2 (06:21→16:50)
[2017-11-06] MEDS: buPROPion (XL) 150 MG TABLET.XL PO (06:21)
[2017-11-06] MEDS: Losartan Potassium 100 MG Tablet PO (06:21)
[2017-11-06] MEDS: Triamterene 37.5MG/Hctz 25MG Capsule 1 CAP PO (06:21)
[2017-11-06] MEDS: Gabapentin 400 MG Capsule 800 MG PO ×4 (06:21→21:54)
[2017-11-06] MEDS: Glucerna Shake 120 ML LIQUID PO ×4 (06:21→21:54)
[2017-11-06] MEDS: Piperacil/Tazobactam 3.375 GM/50 ML ML IV ×3 (06:22→21:51)
[2017-11-06] MEDS: 0.9% NaCl Peripheral Flush Adult/Peds IV ×2 (06:22→12:32)
[2017-11-06 07:06] LABS: Bedside Glucose 154 mg/dL (70-110)
[2017-11-06] MEDS: Iron Polysaccharide Complex 150 MG CAPSULE PO (07:49)
[2017-11-06] MEDS: metFORMIN HCl 1,000 MG Tablet 1000 MG PO ×2 (07:49→16:50)
[2017-11-06] MEDS: Insulin NPH Human 100 UNITS/ML PEN 20 UNITS SC ×2 (07:53→17:45)
[2017-11-06] MEDS: Insulin Lispro 100 UNIT/ML INSULN.PEN 13 UNIT SC ×3 (07:54→17:45)
[2017-11-06] MEDS: Mupirocin Ointment 22gm Tube 1 APPLIC TOPICAL (08:03)
--- NOTE | 2017-11-06 09:41 | PN.SURG_ITS ---
Subjective: Postop #9 Patient is resting comfortably. Is doing better at therapy. - Physical Exam General: Alert, Oriented x3 HEENT: PERRLA, EOMI Oral: Moist Mucosa Neck: Supple Skin: Incision - stump incision intact. Less swelling noted and less redness noted. No evidence of fluctuance or purulent drainage. Neurological: Cranial nerves II-XII grossly intact Psych/Mental Status: Normal Affect, Appropriate Vital Signs Temp Pulse Resp BP Pulse Ox 98 F 77 18 134/76 H 96 11/05/17 16:00 11/05/17 16:00 11/05/17 16:00 11/05/17 16:00 11/05/17 16:00 Oxygen Delivery Method Room Air Weight: 287 lb 6 oz Body Mass Index (BMI) 34.9 Finger Stick Blood Glucose 168 Intake and Output for Last 24 Hours 11/04/17 11/05/17 11/06/17 23:59 23:59 23:59 Intake Total 1317 / 1317 840 / 840 Output Total 1410 / 1410 1505 / 1505 Balance -93 / -93 820 / 820 -1505 / -1505 Drainage 20 ml yesterday. POC Glucose 11/06/17 11/05/17 11/05/17 06:22 21:23 16:53 POC Glucose 154 H 158 H 116 H 11/05/17 11:22 POC Glucose 150 H Pathology from 10/28/17 surgery - acute and chronic osteomyelitis. 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 involvement without evidence of necrosis (Acute) Cellulitis (Resolved) Cellulitis and abscess of toe of left foot (Resolved) Cellulitis of great toe, left (Resolved) Cellulitis of leg (Resolved) Cellulitis of right foot (Resolved) Deep venous thrombosis (Resolved) Diabetic toe ulcer (Resolved) Fracture of left foot (Resolved) Hammer toe of right foot (Resolved) Healed ulcer of left foot on examination (Resolved) Lymphangitis (Resolved) Non-pressure chronic ulcer of other part of right foot with fat layer exposed ( Resolved) Right foot infection (Resolved) Sepsis (Resolved) Skin ulcer of left great toe with fat layer exposed (Resolved) Toe osteomyelitis, right (Resolved) Ulcer of right leg (Resolved) Ulcer of right lower extremity with fat layer exposed (Resolved) Ulcer of right lower extremity with fat layer exposed (Resolved) Ulcer of right second toe with fat layer exposed (Resolved) Ulcer of toe of right foot (Resolved) Ulcer with necrosis of muscle (Resolved) Wound of left leg (Resolved) Wound of right leg (Resolved) 1. Infection of left BKA stump 2. Dehiscence of left BKA stump. 3. Osteomyelitis. 4. History of MRSA. 5. Diabetes mellitus. 6. Former smoker. Continue Zosyn for the Enterobacter. His operative culture showed Enterobacter cloacae. The Pathology from his surgery on 10/28/17 showed acute and chronic osteomyelitis. With his history of infections, anticipate 6 weeks of IV antibiotics. Will place PICC line today. He has a history of MRSA as well. Will add Vancomycin. His amputation stump incision is intact. There is less swelling and less redness since starting back on the IV antibiotics since he has been here. The stump is still soft. There is no fluctuance or purulent drainage. The stump is certainly at risk for wound healing issues secondary to the osteomyelitis. Will continue to observe. Will remove the drain next week. After discharge, he will need HBO treatments [facility] to treat his osteomyelitis.
--- NOTE | 2017-11-06 10:26 | PCM.RX.CS ---
Consult Pharmacy has been consulted to manage selected antiobiotic: Vancomycin Type of Consult: New start Suspected Infection: Osteomyelitis Labs: Sodium 137 mmol/L (136-145) 11/01/17 06:46 Potassium 4.3 mmol/L (3.5-5.1) 11/01/17 06:46 Chloride 99 mmol/L (98-107) 11/01/17 06:46 Carbon Dioxide 31.0 mmol/L (21.0-32.0) 11/01/17 06:46 Anion Gap 7 (5-15) 11/01/17 06:46 BUN 26 mg/dL (7-18) H 11/01/17 06:46 Creatinine 1.08 mg/dL (0.70-1.30) 11/01/17 06:46 Est GFR (MDRD) Af Amer 89 mL/min (>60) 11/01/17 06:46 Est GFR (MDRD) Non-Af 74 mL/min (>60) 11/01/17 06:46 BUN/Creatinine Ratio 24.1 RATIO (10-20) H 11/01/17 06:46 Glucose 149 mg/dL (74-106) H 11/01/17 06:46 Weight used for dosin kg Estimated Creatinine Clearance: 86 ml/min Goal Trough: 10-15 mcg/mL Pharmacy Plan for Drug Dosing: Per algorithm, recommend vancomycin 2000mg IV x1 followed by 1250mg IV q12h. Check trough prior to 4th dose. Pharmacy Service will continue to monitor and adjust dosing as required. Follow-Up Labs: Trough Vancomycin - 11/07 @ 2200
[2017-11-06 11:01] LABS: Bedside Glucose 183 mg/dL (70-110)
[2017-11-06 11:17] LABS: Erythrocyte Sedimentation Rate 87 mm/hr (0-20)
[2017-11-06 11:19] LABS: Hematocrit 35.5 % (40-54); Hemoglobin 11.2 g/dl (13.0-16.5); Mean Corp Hgb Conc 31.5 g/gl (32-36); Mean Corpuscular Volume 85.5 fL (80-94); Platelet Count 439 K/mm3 (150-450); RBC Distribution Width CV 14.3 % (11.6-14.6); RBC Distribution Width SD 43.6 fl (35.1-43.9); Red Blood Count 4.15 M/mm3 (4.6-6.2); White Blood Count 7.7 K/mm3 (4.4-11.0)
[2017-11-06 11:21] LABS: Scan Indicated on CBC? Y/N NO
[2017-11-06 11:40] LABS: ALB/GLOB Ratio 0.7 RATIO (0.9-2.4); AST(SGOT) 25 U/L (15-37); Alanine Aminotransfer ALT/SGPT 36 U/L (16-61); Albumin, Serum 3.1 g/dL (3.2-5.0); Alkaline Phosphatase 122 U/L (45-117); Anion Gap 9 (5-15); BUN 29 mg/dL (7-18); BUN/Creat Ratio 25.7 RATIO (10-20); Calcium,Total 9.1 mg/dL (8.5-10.1); Chloride 99 mmol/L (98-107); Creatinine, Serum 1.13 mg/dL (0.70-1.30); EST Glomerular Filtration Rate 70 mL/min (>60); Est Glom Filt Rate - Afr Amer 85 mL/min (>60); Estimated Creatinine Clearance 82.05 ml/min; Globulin 4.4 g/dL (2.2-4.2); Glucose 179 mg/dL (74-106); Potassium 4.2 mmol/L (3.5-5.1); Protein, Total 7.5 g/dL (6.4-8.2); Sodium Level 135 mmol/L (136-145)
[2017-11-06] MEDS: diazePAM 5 MG Tablet PO ×2 (12:39→16:48)
--- NOTE | 2017-11-06 13:56 | CASEMGMT ---
Insurance Continued stay approved with update due 11/11/17 AUth# [id number] CHRIS Levi
[2017-11-06 15:54] VITALS: BP 121/62; PULSE 67; RESP 16; TEMP 36.5; O2SAT 96
--- NOTE | 2017-11-06 16:18 | NURSING ---
pt arrived at 1400 via w/ch
[2017-11-06 17:10] LABS: Bedside Glucose 168 mg/dL (70-110)
--- NOTE | 2017-11-06 20:04 | NURSING ---
TRUCK SHOP SUPERVISOR VERIFIED PICC PLACEMENT WITH EKG TECHNOLOGY.
[2017-11-06 21:36] LABS: Bedside Glucose 154 mg/dL (70-110)
[2017-11-06] MEDS: 0.9% NaCl IVPB Med Flush (250 mL) 15 ML IV (21:51)
[2017-11-06] MEDS: Atorvastatin Calcium 40 MG Tablet PO (21:55)
[2017-11-07] MEDS: oxyCODONE 5 MG Tablet 10 MG PO ×2 (03:43→14:57)
[2017-11-07] MEDS: buPROPion (XL) 150 MG TABLET.XL PO (06:04)
[2017-11-07] MEDS: Pantoprazole Sodium 20 MG Tablet PO ×2 (06:04→17:17)
[2017-11-07] MEDS: Citalopram 20 MG Tablet 40 MG PO (06:04)
[2017-11-07] MEDS: Losartan Potassium 100 MG Tablet PO (06:04)
[2017-11-07] MEDS: Piperacil/Tazobactam 3.375 GM/50 ML ML IV ×3 (06:04→21:12)
[2017-11-07] MEDS: Ciprofloxacin 500 MG Tablet PO ×2 (06:04→17:17)
[2017-11-07] MEDS: Triamterene 37.5MG/Hctz 25MG Capsule 1 CAP PO (06:04)
[2017-11-07] MEDS: Enoxaparin 40 MG/0.4 ML Syringe SC (06:04)
[2017-11-07] MEDS: Gabapentin 400 MG Capsule 800 MG PO ×4 (06:06→21:21)
[2017-11-07] MEDS: Glucerna Shake 120 ML LIQUID PO ×4 (06:08→21:19)
[2017-11-07 06:16] LABS: Bedside Glucose 165 mg/dL (70-110)
[2017-11-07] MEDS: Insulin NPH Human 100 UNITS/ML PEN 20 UNITS SC ×2 (10:42→17:13)
[2017-11-07] MEDS: metFORMIN HCl 1,000 MG Tablet 1000 MG PO ×2 (10:43→17:17)
[2017-11-07] MEDS: Iron Polysaccharide Complex 150 MG CAPSULE PO (10:44)
[2017-11-07 11:26] LABS: Bedside Glucose 250 mg/dL (70-110)
[2017-11-07] MEDS: Insulin Lispro 100 UNIT/ML INSULN.PEN 13 UNIT SC ×2 (11:34→17:13)
[2017-11-07] MEDS: Mupirocin Ointment 22gm Tube 1 APPLIC TOPICAL (14:54)
[2017-11-07] MEDS: diazePAM 5 MG Tablet PO (14:57)
[2017-11-07 16:56] LABS: Bedside Glucose 173 mg/dL (70-110)
--- NOTE | 2017-11-07 17:13 | CASEMGMT ---
Social Work Met with pt and friend Lolita in pt room. Pt requesting to change HCPOA. SW assisted pt in making new HCPOA naming Lolita Reddy. Pt states his dgt is aware she is no longer the HCPOA and agreeable. Copy placed in chart and original given to pt with instructions to give copy to Lolita and PCP. CHRIS Levi
[2017-11-07 21:11] LABS: Bedside Glucose 171 mg/dL (70-110)
[2017-11-07] MEDS: Atorvastatin Calcium 40 MG Tablet PO (21:21)
[2017-11-08] MEDS: Mupirocin Ointment 22gm Tube 1 APPLIC TOPICAL (06:33)
[2017-11-08] MEDS: Losartan Potassium 100 MG Tablet PO (06:34)
[2017-11-08] MEDS: Enoxaparin 40 MG/0.4 ML Syringe SC (06:34)
[2017-11-08] MEDS: Pantoprazole Sodium 20 MG Tablet PO ×2 (06:34→17:26)
[2017-11-08] MEDS: Ciprofloxacin 500 MG Tablet PO ×2 (06:34→17:26)
[2017-11-08] MEDS: Triamterene 37.5MG/Hctz 25MG Capsule 1 CAP PO (06:34)
[2017-11-08] MEDS: Citalopram 20 MG Tablet 40 MG PO (06:34)
[2017-11-08] MEDS: Glucerna Shake 120 ML LIQUID PO ×4 (06:35→20:48)
[2017-11-08] MEDS: buPROPion (XL) 150 MG TABLET.XL PO (06:35)
[2017-11-08] MEDS: Insulin Lispro 100 UNIT/ML INSULN.PEN 13 UNIT SC ×3 (06:36→17:38)
[2017-11-08] MEDS: Piperacil/Tazobactam 3.375 GM/50 ML ML IV ×3 (06:36→23:29)
[2017-11-08] MEDS: Insulin NPH Human 100 UNITS/ML PEN 20 UNITS SC ×2 (06:37→17:39)
[2017-11-08] MEDS: Gabapentin 400 MG Capsule 800 MG PO ×4 (06:38→20:49)
[2017-11-08 06:40] LABS: Bedside Glucose 179 mg/dL (70-110)
[2017-11-08 07:51] LABS: Absolute Lymphocyte Count 1.58 X10^3/ul (0.83-4.51); Absolute Neutrophil Count 4.2 X10^3/uL (2.0-7.7); Basophil# 0.02 X10^3/uL; Basophil% 0.3 % (0-1); Eosinophil# 0.29 X10^3/uL; Eosinophils% 4.4 % (0-5); Hematocrit 34.7 % (40-54); Hemoglobin 10.7 g/dl (13.0-16.5); Lymphocyte # 1.58 X10^3/ul (4.0); Mean Corp Hgb Conc 30.8 g/gl (32-36); Mean Corpuscular Hgb 26.2 pg (27.0-32.0); Mean Corpuscular Volume 84.8 fL (80-94); Mean Platelet Vol. 8.7 fl (6.2-12.0); Monocyte# 0.47 X10^3/uL; Monocyte% 7.1 % (0-10); Neutrophil # 4.21 X10^3/uL (2.7-7.7); Neutrophil % 63.9 % (47-70); POSITIVE COUNT NO; POSITIVE DIFFERENTIAL NO; POSITIVE MORPHOLOGY NO; Platelet Count 354 K/mm3 (150-450); RBC Distribution Width CV 14.3 % (11.6-14.6); Red Blood Count 4.09 M/mm3 (4.6-6.2); White Blood Count 6.6 K/mm3 (4.4-11.0)
[2017-11-08 07:56] LABS: Anion Gap 8 (5-15); BUN 21 mg/dL (7-18); BUN/Creat Ratio 23.3 RATIO (10-20); Chloride 102 mmol/L (98-107); EST Glomerular Filtration Rate 91 mL/min (>60); Est Glom Filt Rate - Afr Amer 110 mL/min (>60); Estimated Creatinine Clearance 103.02 ml/min; Glucose 169 mg/dL (74-106); Sodium Level 138 mmol/L (136-145)
[2017-11-08] MEDS: Iron Polysaccharide Complex 150 MG CAPSULE PO (08:16)
[2017-11-08] MEDS: metFORMIN HCl 1,000 MG Tablet 1000 MG PO ×2 (08:16→17:26)
[2017-11-08 10:02] LABS: Vancomycin, Trough Level 13.2 ug/mL (5.0-15.0)
[2017-11-08 11:51] LABS: Bedside Glucose 215 mg/dL (70-110)
[2017-11-08] MEDS: oxyCODONE 5 MG Tablet 10 MG PO ×2 (13:46→20:58)
[2017-11-08] MEDS: diazePAM 5 MG Tablet PO ×2 (13:47→20:58)
--- NOTE | 2017-11-08 14:03 | PCM.RX.CS ---
Consult Pharmacy has been consulted to manage selected antiobiotic: Vancomycin Type of Consult: Follow-up Suspected Infection: Skin/Soft tissue Prior Doses of Antibiotics Received/Current Regimen: VANCOMYCIN 1750MG IV Q12HRS 11/07 @2119, 11/08 @1059 Labs: Sodium 138 mmol/L (136-145) 11/08/17 07:34 Potassium 4.0 mmol/L (3.5-5.1) 11/08/17 07:34 Chloride 102 mmol/L (98-107) 11/08/17 07:34 Carbon Dioxide 28.0 mmol/L (21.0-32.0) 11/08/17 07:34 Anion Gap 8 (5-15) 11/08/17 07:34 BUN 21 mg/dL (7-18) H 11/08/17 07:34 Creatinine 0.90 mg/dL (0.70-1.30) 11/08/17 07:34 Est GFR (MDRD) Af Amer 110 mL/min (>60) 11/08/17 07:34 Est GFR (MDRD) Non-Af 91 mL/min (>60) 11/08/17 07:34 BUN/Creatinine Ratio 23.3 RATIO (10-20) H 11/08/17 07:34 Glucose 169 mg/dL (74-106) H 11/08/17 07:34 Vancomycin Trough 13.2 ug/mL (5.0-15.0) 11/08/17 09:14 Weight used for dosin kg Pharmacy Plan for Drug Dosing: The patient is currently receiving 1750mg IV Q12hrs of vancomycin, which he was on in the past with a therapeutic trough. He had a trough drawn which resulted in a value of 13.2 (12hrs from last administered dose). Since the trough goal is 15-20, will increase the dose and recheck the trough prior to the 4th dose of new regimen. Will continue to monitor. PLAN/RECOMMENDATIONS 1. Vancomycin 2000mg IV Q12hrs to start 11/08 @2200 2. Trough scheduled for 11/10 @0930 3. Pharmacy Service will continue to monitor and adjust dosing as required.
[2017-11-08 15:11] VITALS: BP 157/69; PULSE 76; RESP 18; TEMP 36.2; O2SAT 95
--- NOTE | 2017-11-08 15:39 | NURSING ---
Dr. Fernández reviewed AM labs, NNO
[2017-11-08 17:06] LABS: Bedside Glucose 256 mg/dL (70-110)
[2017-11-08] MEDS: 0.9% NaCl Peripheral Flush Adult/Peds IV (20:47)
[2017-11-08] MEDS: Atorvastatin Calcium 40 MG Tablet PO (20:49)
[2017-11-08 21:30] LABS: Bedside Glucose 184 mg/dL (70-110)
[2017-11-09] MEDS: Enoxaparin 40 MG/0.4 ML Syringe SC (05:14)
[2017-11-09] MEDS: Pantoprazole Sodium 20 MG Tablet PO ×2 (05:15→17:03)
[2017-11-09] MEDS: Triamterene 37.5MG/Hctz 25MG Capsule 1 CAP PO (05:15)
[2017-11-09] MEDS: buPROPion (XL) 150 MG TABLET.XL PO (05:15)
[2017-11-09] MEDS: Losartan Potassium 100 MG Tablet PO (05:15)
[2017-11-09] MEDS: Piperacil/Tazobactam 3.375 GM/50 ML ML IV ×3 (05:15→21:37)
[2017-11-09] MEDS: Gabapentin 400 MG Capsule 800 MG PO ×4 (05:15→21:40)
[2017-11-09] MEDS: Mupirocin Ointment 22gm Tube 1 APPLIC TOPICAL (05:15)
[2017-11-09] MEDS: Ciprofloxacin 500 MG Tablet PO ×2 (05:15→17:02)
[2017-11-09] MEDS: Citalopram 20 MG Tablet 40 MG PO (05:15)
[2017-11-09] MEDS: Glucerna Shake 120 ML LIQUID PO ×4 (05:16→21:38)
[2017-11-09] MEDS: Insulin NPH Human 100 UNITS/ML PEN 20 UNITS SC ×2 (07:25→17:10)
[2017-11-09 07:56] LABS: Bedside Glucose 141 mg/dL (70-110)
[2017-11-09] MEDS: metFORMIN HCl 1,000 MG Tablet 1000 MG PO ×2 (09:04→17:03)
[2017-11-09] MEDS: Iron Polysaccharide Complex 150 MG CAPSULE PO (09:04)
[2017-11-09] MEDS: Insulin Lispro 100 UNIT/ML INSULN.PEN 13 UNIT SC ×3 (09:05→17:08)
[2017-11-09] MEDS: oxyCODONE 5 MG Tablet 10 MG PO ×3 (09:19→21:46)
[2017-11-09] MEDS: diazePAM 5 MG Tablet PO ×3 (09:19→22:49)
--- NOTE | 2017-11-09 11:30 | NURSING ---
Dressing changed to left lower extremity stump. Pt tolerated procedure well. Bactroban ointment applied with adaptic and kerlix, topped with linus bandage. NEY drain site intact.
[2017-11-09 11:46] LABS: Bedside Glucose 208 mg/dL (70-110)
[2017-11-09] MEDS: 0.9% NaCl IVPB Med Flush (250 mL) 15 ML IV ×3 (13:53→21:34)
[2017-11-09 15:13] VITALS: BP 122/67; PULSE 83; RESP 18; TEMP 35.8; O2SAT 96
[2017-11-09 16:56] LABS: Bedside Glucose 161 mg/dL (70-110)
[2017-11-09 20:56] LABS: Bedside Glucose 174 mg/dL (70-110)
[2017-11-09] MEDS: 0.9% NaCl PICC Flush IV ×2 (21:31→21:34)
[2017-11-09] MEDS: Atorvastatin Calcium 40 MG Tablet PO (21:40)
--- NOTE | 2017-11-10 00:20 | NURSING ---
Pt's daughter concerned with pt's mood. Daughter informed this nurse she feels her dad has become very depressed after hearing the results of wound culture. Daughter reported pt wanting to sell his horse. Daughter infomred this nurse she will contact the licensed master social worker ewa (11/10). VM left with SW. Pt laughing this this nurse in room this evening. Will continue to monitor.
[2017-11-10] MEDS: Mupirocin Ointment 22gm Tube 1 APPLIC TOPICAL (06:05)
[2017-11-10] MEDS: Insulin NPH Human 100 UNITS/ML PEN 20 UNITS SC ×2 (06:08→17:24)
[2017-11-10] MEDS: Enoxaparin 40 MG/0.4 ML Syringe SC (06:08)
[2017-11-10] MEDS: Ciprofloxacin 500 MG Tablet PO ×2 (06:10→17:25)
[2017-11-10] MEDS: Citalopram 20 MG Tablet 40 MG PO (06:10)
[2017-11-10] MEDS: buPROPion (XL) 150 MG TABLET.XL PO ×2 (06:10→17:26)
[2017-11-10] MEDS: Losartan Potassium 100 MG Tablet PO (06:10)
[2017-11-10] MEDS: Triamterene 37.5MG/Hctz 25MG Capsule 1 CAP PO (06:10)
[2017-11-10] MEDS: Pantoprazole Sodium 20 MG Tablet PO ×2 (06:10→17:26)
[2017-11-10] MEDS: Gabapentin 400 MG Capsule 800 MG PO ×4 (06:11→21:46)
[2017-11-10] MEDS: Glucerna Shake 120 ML LIQUID PO ×4 (06:12→21:46)
[2017-11-10] MEDS: Piperacil/Tazobactam 3.375 GM/50 ML ML IV ×3 (06:12→21:35)
[2017-11-10] MEDS: oxyCODONE 5 MG Tablet 10 MG PO ×2 (06:22→11:40)
[2017-11-10 06:50] LABS: Bedside Glucose 164 mg/dL (70-110)
[2017-11-10 07:59] LABS: Erythrocyte Sedimentation Rate 43 mm/hr (0-20)
[2017-11-10] MEDS: metFORMIN HCl 1,000 MG Tablet 1000 MG PO ×2 (08:50→17:25)
[2017-11-10] MEDS: Iron Polysaccharide Complex 150 MG CAPSULE PO (08:50)
[2017-11-10] MEDS: Insulin Lispro 100 UNIT/ML INSULN.PEN 13 UNIT SC ×3 (08:50→17:23)
--- NOTE | 2017-11-10 10:38 | NURSING ---
Dr Fernández notified by manufacturing supervisor 2nd shift nurse that pt daughter concerned about her dad being more depressed- talked about selling beloved horse. New order to increase Wellbutrin to BID.
[2017-11-10] MEDS: 0.9% NaCl Peripheral Flush Adult/Peds IV (10:46)
--- NOTE | 2017-11-10 11:36 | PCM.RX.CS ---
Consult Pharmacy has been consulted to manage selected antiobiotic: Vancomycin Type of Consult: Follow-up Suspected Infection: Skin/Soft tissue Prior Doses of Antibiotics Received/Current Regimen: 11 Labs: Sodium 138 mmol/L (136-145) 11/08/17 07:34 Potassium 4.0 mmol/L (3.5-5.1) 11/08/17 07:34 Chloride 102 mmol/L (98-107) 11/08/17 07:34 Carbon Dioxide 28.0 mmol/L (21.0-32.0) 11/08/17 07:34 Anion Gap 8 (5-15) 11/08/17 07:34 BUN 21 mg/dL (7-18) H 11/08/17 07:34 Creatinine 0.90 mg/dL (0.70-1.30) 11/08/17 07:34 Est GFR (MDRD) Af Amer 110 mL/min (>60) 11/08/17 07:34 Est GFR (MDRD) Non-Af 91 mL/min (>60) 11/08/17 07:34 BUN/Creatinine Ratio 23.3 RATIO (10-20) H 11/08/17 07:34 Glucose 169 mg/dL (74-106) H 11/08/17 07:34 Vancomycin Trough 16.0 ug/mL (5.0-15.0) H 11/10/17 09:16 Weight used for dosin kg Estimated Creatinine Clearance: 103 Goal Trough: 15-20 mcg/mL - TROUGH LEVEL = 16. CONTINUE SAME DOSE OF 2 GRAMS Q12H. WILL REPEAT TROUGH IN 4 DAYS. Pharmacy Plan for Drug Dosing: Pharmacy Service will continue to monitor and adjust dosing as required.
[2017-11-10 11:40] LABS: Bedside Glucose 193 mg/dL (70-110)
[2017-11-10] MEDS: diazePAM 5 MG Tablet PO (11:40)
[2017-11-10] MEDS: 0.9% NaCl PICC Flush IV ×2 (14:08→21:37)
[2017-11-10 15:52] VITALS: BP 121/65; PULSE 60; RESP 16; TEMP 36.4; O2SAT 95
--- NOTE | 2017-11-10 16:26 | CHAPLAIN ---
Type of Pastoral Visit _x__ Initial Visit ___ Follow-up Visit ___ On-call Visit ___ General Patient Visit ___ Spiritual Assessment ___ Family Conference ___ Bereavement ___ Rapid Response ___ Code Blue ___ Other (describe below) Pastoral Care Referral From _x__ Patient ___ Family ___ Nurse ___ Physician ___ Vascular Nurse ___ Gathering Worker ___ Other (describe below) Sacrament/Intervention _x__ Active listening ___ Anointing ___ Restorationism ___ Bereavement ___ Communion _x__ Bridgett exploration ___ _x__ Life review _x__ Prayer ___ Reconciliation ___ Sacrament of Sick _x__ Supportive presence ___ Wedding ___ Other (describe below) Pastoral Comments long talk with patient as he describes his current discouragement after hearing of new diagnosis; pt has experienced lots of health set backs in recent years in addition to difficulties in work and family; pt caregiver is with him in the room; caregiver asks for some support in emotional and spiritual areas for patient and says that his daughter has asked for information from SW on support groups; pt continues his own revelation of feelings; areas explored are his support system, times in the day when he notices more discouragement, activities that he finds hopeful and helpful, his bridgett and how that might benefit him; pt welcomes prayer; pt welcomes future visits with jewel grinder for spiritual support and prayer
[2017-11-10 17:11] LABS: Bedside Glucose 187 mg/dL (70-110)
[2017-11-10] MEDS: 0.9% NaCl IVPB Med Flush (250 mL) 15 ML IV ×2 (21:29→21:31)
[2017-11-10 21:41] LABS: Bedside Glucose 197 mg/dL (70-110)
[2017-11-10] MEDS: Atorvastatin Calcium 40 MG Tablet PO (21:46)
[2017-11-11] MEDS: diazePAM 5 MG Tablet PO (04:40)
[2017-11-11] MEDS: oxyCODONE 5 MG Tablet 10 MG PO ×2 (04:40→21:44)
[2017-11-11] MEDS: Gabapentin 400 MG Capsule 800 MG PO ×4 (04:58→21:44)
[2017-11-11] MEDS: buPROPion (XL) 150 MG TABLET.XL PO ×2 (04:58→17:37)
[2017-11-11] MEDS: Triamterene 37.5MG/Hctz 25MG Capsule 1 CAP PO (04:58)
[2017-11-11] MEDS: Citalopram 20 MG Tablet 40 MG PO (04:58)
[2017-11-11] MEDS: Losartan Potassium 100 MG Tablet PO (04:58)
[2017-11-11] MEDS: Glucerna Shake 120 ML LIQUID PO ×4 (04:59→21:44)
[2017-11-11] MEDS: Mupirocin Ointment 22gm Tube 1 APPLIC TOPICAL (04:59)
[2017-11-11] MEDS: Pantoprazole Sodium 20 MG Tablet PO ×2 (04:59→17:37)
[2017-11-11] MEDS: Ciprofloxacin 500 MG Tablet PO ×2 (04:59→17:37)
[2017-11-11] MEDS: Enoxaparin 40 MG/0.4 ML Syringe SC (05:00)
[2017-11-11] MEDS: Piperacil/Tazobactam 3.375 GM/50 ML ML IV ×3 (05:01→21:32)
[2017-11-11] MEDS: Insulin NPH Human 100 UNITS/ML PEN 20 UNITS SC ×2 (06:06→17:41)
[2017-11-11 06:15] LABS: Bedside Glucose 204 mg/dL (70-110)
[2017-11-11] MEDS: Insulin Lispro 100 UNIT/ML INSULN.PEN 13 UNIT SC ×3 (07:56→17:41)
[2017-11-11] MEDS: Iron Polysaccharide Complex 150 MG CAPSULE PO (07:57)
[2017-11-11] MEDS: metFORMIN HCl 1,000 MG Tablet 1000 MG PO ×2 (07:57→17:37)
[2017-11-11] MEDS: 0.9% NaCl Peripheral Flush Adult/Peds IV ×2 (11:02→21:37)
[2017-11-11 11:16] LABS: Bedside Glucose 164 mg/dL (70-110)
--- NOTE | 2017-11-11 11:41 | CASEMGMT ---
Insurance Clinical information sent, pending continued stay approval at this time. Auth#[id number] Ester PEREZ, MEDICAL DOCTOR MD
[2017-11-11 15:50] VITALS: BP 129/77; PULSE 79; RESP 18; TEMP 35.8; O2SAT 99
--- NOTE | 2017-11-11 16:20 | CHAPLAIN ---
Type of Pastoral Visit ___ Initial Visit _x__ Follow-up Visit ___ On-call Visit ___ General Patient Visit ___ Spiritual Assessment ___ Family Conference ___ Bereavement ___ Rapid Response ___ Code Blue ___ Other (describe below) Pastoral Care Referral From _x__ Patient ___ Family ___ Nurse ___ Physician _x__ Air Conditioning Engineer ___ Snuff Packing Machine Operator ___ Other (describe below) Sacrament/Intervention _x__ Active listening ___ Anointing ___ Worship ___ Bereavement ___ Communion _x__ Bridgett exploration ___ _x__ Life review _x__ Prayer ___ Reconciliation ___ Sacrament of Sick _x__ Supportive presence ___ Wedding ___ Other (describe below) Pastoral Comments stopped to give follow up attention to patient; pt first words were I'm having a terrible day; sat with pt to listen to his feelings; pt learned that his sister was taken to ED at another hospital and that a close friend today; heard the pt's thoughts about and eternal life; pt has these life events to deal with in addition to physical needs and other concerns as expressed yesterday; pt did comment that the words of a Gospel song came to him after our visit together yesterday; pt said he found those words helpful to his spirit for encouragement; pt talked about his life, his interest in horses; pt welcomed a prayer;
[2017-11-11 17:05] LABS: Bedside Glucose 120 mg/dL (70-110)
[2017-11-11] MEDS: Senna/Docusate Sodium 1 Tablet 2 TABLET PO (17:37)
[2017-11-11 21:16] LABS: Bedside Glucose 131 mg/dL (70-110)
[2017-11-11] MEDS: 0.9% NaCl IVPB Med Flush (250 mL) 15 ML IV ×2 (21:19→21:26)
[2017-11-11] MEDS: Atorvastatin Calcium 40 MG Tablet PO (21:44)
--- NOTE | 2017-11-11 23:21 | NURSING ---
Pt informed this nurse he wants to go home , Friday at the latest. Pt wants to attend band members on Friday. Pt also requesting to go home d/t sister being recently hospitalized and friend being diagnosed with bladder cancer. Pt repeated to nurse he wants to go home multiple times. VM left with RANDY.
[2017-11-12] MEDS: Mupirocin Ointment 22gm Tube 1 APPLIC TOPICAL (06:31)
[2017-11-12] MEDS: Piperacil/Tazobactam 3.375 GM/50 ML ML IV ×3 (06:32→21:45)
[2017-11-12] MEDS: 0.9% NaCl Peripheral Flush Adult/Peds IV ×2 (06:32→21:56)
[2017-11-12] MEDS: oxyCODONE 5 MG Tablet 10 MG PO ×2 (06:34→13:38)
[2017-11-12] MEDS: Losartan Potassium 100 MG Tablet PO (06:35)
[2017-11-12] MEDS: Ciprofloxacin 500 MG Tablet PO ×2 (06:35→18:31)
[2017-11-12] MEDS: Pantoprazole Sodium 20 MG Tablet PO ×2 (06:35→18:31)
[2017-11-12 06:55] LABS: Bedside Glucose 153 mg/dL (70-110)
[2017-11-12] MEDS: Citalopram 20 MG Tablet 40 MG PO (06:56)
[2017-11-12] MEDS: Gabapentin 400 MG Capsule 800 MG PO ×4 (06:57→21:57)
[2017-11-12] MEDS: Enoxaparin 40 MG/0.4 ML Syringe SC (06:57)
[2017-11-12] MEDS: buPROPion (XL) 150 MG TABLET.XL PO ×2 (06:57→18:32)
[2017-11-12] MEDS: Triamterene 37.5MG/Hctz 25MG Capsule 1 CAP PO (06:57)
[2017-11-12] MEDS: Insulin NPH Human 100 UNITS/ML PEN 20 UNITS SC ×2 (06:58→18:35)
[2017-11-12] MEDS: Glucerna Shake 120 ML LIQUID PO ×4 (07:00→21:56)
[2017-11-12] MEDS: Insulin Lispro 100 UNIT/ML INSULN.PEN 13 UNIT SC ×3 (08:18→18:35)
[2017-11-12] MEDS: Iron Polysaccharide Complex 150 MG CAPSULE PO (08:19)
[2017-11-12] MEDS: metFORMIN HCl 1,000 MG Tablet 1000 MG PO ×2 (08:19→18:30)
--- NOTE | 2017-11-12 08:50 | CASEMGMT ---
Insurance Continued stay approved with next update due on 11/17/17. Auth#[id number] Ester PEREZ, PIZZA DELIVERY
--- NOTE | 2017-11-12 10:21 | CASEMGMT ---
Social Work Nursing reporting that resident is requesting to discharge to home either or Friday due to a recent loss of a friend. Spoke with resident in room. Resident affect pleasant and confirming to have lost a good friend earlier this week and that calling hours are night and is Friday. Emotional support provided. Resident is wanting to see if it would be possible to discharge by night or Friday morning at the latest. Resident currently has a wound and I.V. therapy and has been working with P.T/O.T. on strengthening. Resident reporting to feel strong enough to return home and to have a wheelchair if needed. Resident reporting to have done own wound care in the past along with home I.V. therapy. This social science instructor communicating that Dr. Rodriguez and infection disease will need to clear resident and confirm resident current I.V.'s prior to being able to get I.V. therapy set up within the home. Resident voicing understanding. Collaborating with nursing. Nursing planning to contact Dr. Rodriguez and infection disease and then go from there on establishing a discharge date and setting up I.V. therapy within the home. Support given. Will continue to follow. Ester PEREZ, HYDROTREATER OPERATOR
[2017-11-12] MEDS: 0.9% NaCl IVPB Med Flush (250 mL) 15 ML IV ×2 (10:34→13:05)
[2017-11-12 11:35] LABS: Bedside Glucose 170 mg/dL (70-110)
[2017-11-12] MEDS: diazePAM 5 MG Tablet PO (13:38)
--- NOTE | 2017-11-12 15:00 | NURSING ---
Per Dr. Rodriguez, okay for patient to discharge home, will be in tonight or tomorrow to see patient. Message left for Dr. Sanders's call service regarding patient's request to discharge home.
--- NOTE | 2017-11-12 15:15 | NURSING ---
Dr. Sanders okay with patient discharging home as long as he has antibiotics set up for him to take at home. Will update director of social work.
[2017-11-12 16:00] VITALS: BP 129/78; PULSE 82; RESP 18; TEMP 36.1; O2SAT 96
[2017-11-12 17:21] LABS: Bedside Glucose 151 mg/dL (70-110)
[2017-11-12 21:10] LABS: Bedside Glucose 183 mg/dL (70-110)
[2017-11-12] MEDS: Atorvastatin Calcium 40 MG Tablet PO (21:57)
--- NOTE | 2017-11-13 00:32 | NURSING ---
Dressing to PICC in [place] noted to be peeling off and statlock exposed. Old dressing was removed and line noted to be at 3.5cm. Sterile technique was used and site was cleansed and a new dressing was applied. Line still at 3.5cm. Pt asleep during the procedure. Call light in reach.
[2017-11-13] MEDS: Piperacil/Tazobactam 3.375 GM/50 ML ML IV ×3 (05:24→22:14)
[2017-11-13] MEDS: 0.9% NaCl IVPB Med Flush (250 mL) 15 ML IV ×4 (05:24→21:51)
[2017-11-13] MEDS: Glucerna Shake 120 ML LIQUID PO ×4 (05:24→22:02)
[2017-11-13] MEDS: Citalopram 20 MG Tablet 40 MG PO (05:33)
[2017-11-13] MEDS: buPROPion (XL) 150 MG TABLET.XL PO ×2 (05:34→17:37)
[2017-11-13] MEDS: Pantoprazole Sodium 20 MG Tablet PO ×2 (05:34→17:37)
[2017-11-13] MEDS: Ciprofloxacin 500 MG Tablet PO (05:34)
[2017-11-13] MEDS: Enoxaparin 40 MG/0.4 ML Syringe SC (05:34)
[2017-11-13] MEDS: Triamterene 37.5MG/Hctz 25MG Capsule 1 CAP PO (05:35)
[2017-11-13] MEDS: Gabapentin 400 MG Capsule 800 MG PO ×4 (05:35→22:01)
[2017-11-13] MEDS: Losartan Potassium 100 MG Tablet PO (05:36)
[2017-11-13] MEDS: oxyCODONE 5 MG Tablet 10 MG PO ×2 (05:38→19:51)
[2017-11-13] MEDS: diazePAM 5 MG Tablet PO ×2 (05:38→19:52)
[2017-11-13] MEDS: Mupirocin Ointment 22gm Tube 1 APPLIC TOPICAL (05:51)
[2017-11-13] MEDS: 0.9% NaCl Peripheral Flush Adult/Peds IV ×3 (05:53→22:14)
[2017-11-13 06:51] LABS: Bedside Glucose 174 mg/dL (70-110)
--- NOTE | 2017-11-13 10:29 | PCM.PN.ID ---
Subjective: Feeling fine, leg improving, no fever, no n/v/d, no problems with picc. - Physical Exam General: Alert, Cooperative, No apparent distress Lungs: Clear to auscultation, Normal air movement Cardiovascular: Regular rate, Regular Rhythm Abdomen: Soft, Non Tender, Non-Distended Skin: Ulcer/ Wound - Leg wrapped with drain in place Vital Signs Temp Pulse Resp BP Pulse Ox 96.9 F L 82 18 129/78 H 96 11/12/17 16:00 11/12/17 16:00 11/12/17 16:00 11/12/17 16:00 11/12/17 16:00 Oxygen Delivery Method Room Air Weight: 131.145 kg Body Mass Index (BMI) 34.9 Finger Stick Blood Glucose 168 Intake and Output for Last 24 Hours 11/11/17 11/12/17 11/13/17 23:59 23:59 23:59 Intake Total 1400 / 1400 1100 / 1100 Output Total 1610 / 1610 1610 / 1610 1800 / 1800 Balance -210 / -210 -510 / -510 -1800 / -1800 POC Glucose 11/13/17 11/12/17 11/12/17 06:18 21:00 17:09 POC Glucose 174 H 183 H 151 H 11/12/17 11:20 POC Glucose 170 H Medical Necessity - Tobacco Use Smoking Status: Former smoker Tobacco Use: Non-smoker Route of nutrition/ use of supplements: [] Nutritional Intake: [] IV Site: [] Tam Catheter: [] - Assessment/Plan Antibiotics: [] Assessment/Plan: [] LLE osteomyelitis of BKA site, most recent surg cx with enterobacter. Concern for worsening while on cipro, changed to vanc and zosyn. Will stop cipro. Picc in place. ok for d/c home on iv vanc/zosyn, stop date 12/16/17, weekly bmp, cbc, vanc trough, and esr. Will follow, rx written for labs and abx. D/w assistant case manager.
--- NOTE | 2017-11-13 10:32 | NURSING ---
HUMALOG AND HUMULIN LATE THIS MORNING. CALLED PHARMACY. STATED TO STILL ADMINISTER HUMULIN, BUT AT 1800 GIVE IT LATER. DO NOT GIVE AM HUMALOG AT THIS TIME.
[2017-11-13] MEDS: 0.9% NaCl PICC Flush IV ×2 (10:40→13:57)
[2017-11-13] MEDS: Iron Polysaccharide Complex 150 MG CAPSULE PO (10:41)
[2017-11-13] MEDS: metFORMIN HCl 1,000 MG Tablet 1000 MG PO ×2 (10:41→17:34)
[2017-11-13] MEDS: Insulin NPH Human 100 UNITS/ML PEN 20 UNITS SC ×2 (10:50→21:57)
[2017-11-13] MEDS: Insulin Lispro 100 UNIT/ML INSULN.PEN 13 UNIT SC ×2 (11:17→17:35)
[2017-11-13 11:31] LABS: Bedside Glucose 266 mg/dL (70-110)
--- NOTE | 2017-11-13 14:25 | CASEMGMT ---
Social Work Per nursing doctors have approved resident discharge whenever resident is wanting to return home. Doctor Tommy signing orders for I.V. therapy needs. Spoke with resident, resident is agreeable to checking insurance benefit through [facility]. Clinical information faxed to [facility], Melony - [phone]. Melony checking resident insurance benefits. Resident cost per a dispense of each I.V. antibiotic is $148.21/weekly and $17.61/daily. Notified resident of cost as mentioned by Melony. Resident reporting to not be able to afford home I.V. therapy and is now planning to continue with stay on the skilled unit at this time. Will continue to follow as needed. Ester PEREZ, ECHO TECHNOLOGIST
--- NOTE | 2017-11-13 15:05 | MDS.RN ---
Information for the mds was obtained from review of the clinical record, interview of resident, staff, and direct observation of resident's care.
[2017-11-13 15:07] VITALS: BP 144/71; PULSE 76; RESP 18; TEMP 35.8; O2SAT 98
[2017-11-13 16:36] LABS: Bedside Glucose 204 mg/dL (70-110)
[2017-11-13 21:21] LABS: Bedside Glucose 244 mg/dL (70-110)
[2017-11-13] MEDS: Atorvastatin Calcium 40 MG Tablet PO (22:01)
[2017-11-14] MEDS: Acetaminophen 500 MG Tablet 1000 MG PO (02:34)
[2017-11-14 06:08] VITALS: BP 142/76; PULSE 68; RESP 16; TEMP 36.5; O2SAT 98
[2017-11-14] MEDS: Losartan Potassium 100 MG Tablet PO (06:10)
[2017-11-14] MEDS: Pantoprazole Sodium 20 MG Tablet PO ×2 (06:10→16:58)
[2017-11-14] MEDS: Citalopram 20 MG Tablet 40 MG PO (06:10)
[2017-11-14] MEDS: buPROPion (XL) 150 MG TABLET.XL PO ×2 (06:10→16:58)
[2017-11-14] MEDS: Gabapentin 400 MG Capsule 800 MG PO ×4 (06:10→21:34)
[2017-11-14] MEDS: Triamterene 37.5MG/Hctz 25MG Capsule 1 CAP PO (06:10)
[2017-11-14] MEDS: Enoxaparin 40 MG/0.4 ML Syringe SC (06:11)
[2017-11-14] MEDS: Mupirocin Ointment 22gm Tube 1 APPLIC TOPICAL (06:11)
[2017-11-14] MEDS: Glucerna Shake 120 ML LIQUID PO ×4 (06:11→21:33)
[2017-11-14] MEDS: Piperacil/Tazobactam 3.375 GM/50 ML ML IV ×3 (06:33→21:33)
[2017-11-14 07:31] LABS: Bedside Glucose 199 mg/dL (70-110)
[2017-11-14] MEDS: Iron Polysaccharide Complex 150 MG CAPSULE PO (08:07)
[2017-11-14] MEDS: metFORMIN HCl 1,000 MG Tablet 1000 MG PO ×2 (08:07→16:58)
[2017-11-14] MEDS: Insulin Lispro 100 UNIT/ML INSULN.PEN 13 UNIT SC ×2 (08:08→12:12)
[2017-11-14] MEDS: Insulin NPH Human 100 UNITS/ML PEN 20 UNITS SC (08:08)
--- NOTE | 2017-11-14 09:55 | NURSING ---
pt reported to FARM EQUIPMENT ENGINEER that he hit stump while self-transferring, RN went to assess. Pt reported to this RN that it hit the floor when he fell. pt states he was transferring self to w/. pt denies any pain other than left residual limb, assessment unchanged from previous other than increased sanguineous drainage noted, dressing changed and MD aware, Dr. Fernández notified and Dr. Rodriguez in to see pt, NNO. PICC dislodged, MARY Millan discontinued and order placed for new PICC, PIV to be used in the interim for IV ATB
--- NOTE | 2017-11-14 10:05 | NURSING ---
PICC noted to be almost out after fall, zosyn stopped and PICC pulled. Pet dressing applied after pressure applied [id number]. Pt denies sob, cp.
[2017-11-14] MEDS: diazePAM 5 MG Tablet PO ×2 (10:08→12:14)
[2017-11-14] MEDS: oxyCODONE 5 MG Tablet 10 MG PO ×4 (10:09→19:29)
--- NOTE | 2017-11-14 10:20 | PCM.RX.CS ---
Consult Pharmacy has been consulted to manage selected antiobiotic: Vancomycin Type of Consult: Follow-up Suspected Infection: Osteomyelitis Prior Doses of Antibiotics Received/Current Regimen: 16 Labs: Sodium 138 mmol/L (136-145) 11/08/17 07:34 Potassium 4.0 mmol/L (3.5-5.1) 11/08/17 07:34 Chloride 102 mmol/L (98-107) 11/08/17 07:34 Carbon Dioxide 28.0 mmol/L (21.0-32.0) 11/08/17 07:34 Anion Gap 8 (5-15) 11/08/17 07:34 BUN 21 mg/dL (7-18) H 11/08/17 07:34 Creatinine 0.90 mg/dL (0.70-1.30) 11/08/17 07:34 Est GFR (MDRD) Af Amer 110 mL/min (>60) 11/08/17 07:34 Est GFR (MDRD) Non-Af 91 mL/min (>60) 11/08/17 07:34 BUN/Creatinine Ratio 23.3 RATIO (10-20) H 11/08/17 07:34 Glucose 169 mg/dL (74-106) H 11/08/17 07:34 Vancomycin Trough 16.0 ug/mL (5.0-15.0) H 11/14/17 09:14 Weight used for dosin kg Estimated Creatinine Clearance: 0.9 Goal Trough: 15-20 mcg/mL - Continue same dose for trough = 16. Recheck trough level in 4 days = 11/18/17 @ 0930 Pharmacy Plan for Drug Dosing: Pharmacy Service will continue to monitor and adjust dosing as required.
--- NOTE | 2017-11-14 10:31 | NURSING ---
pt call out to get washed for the day this FIRE DEPARTMENT MARINE ENGINEER unplugged IV from wall and went to get washcloths and towels pt called out and stated that he was transfering into wheel chair while this FIRE DEPARTMENT MARINE ENGINEER was gone from the room states the he hit his stump hard this FIRE DEPARTMENT MARINE ENGINEER reminded this pt not to self transfer w/o assist from staff
[2017-11-14 11:20] LABS: Bedside Glucose 218 mg/dL (70-110)
--- NOTE | 2017-11-14 11:21 | NURSING ---
tissue recovery technician notified, returned call and will be her between 2 or 3p today for new picc insertion. Pt had accidently pulled it out when he was trying to transfer self from toilet to .
--- NOTE | 2017-11-14 11:39 | NURSING ---
attempted to call nursing department chairperson at this time to notify of fall, number unavailable. will notify pt
[2017-11-14] MEDS: 0.9% NaCl Peripheral Flush Adult/Peds IV (15:09)
[2017-11-14 15:43] VITALS: BP 140/83; PULSE 82; RESP 16; TEMP 35.9; O2SAT 97
[2017-11-14 17:11] LABS: Bedside Glucose 125 mg/dL (70-110)
[2017-11-14] MEDS: Insulin NPH Human 100 UNITS/ML PEN 50 UNITS SC (17:35)
[2017-11-14] MEDS: Insulin Lispro 100 UNIT/ML INSULN.PEN 20 UNIT SC (17:36)
--- NOTE | 2017-11-14 18:01 | PCM.PN.SRG ---
Subjective: Postop #17 Patient fell on the floor this morning when trying to maneuver into the wheelchair. He did not hit his head. However, he fell on his stump. And the PICC got snagged and came out. - Physical Exam General: Alert, Oriented x3 HEENT: PERRLA, EOMI Oral: Moist Mucosa Skin: Incision - stump is soft and the incision appears intact at this time. A small amount of oozing was seen on the stump when the dressing was changed. No bruising on the skin noted. No clinical evidence of hematoma at this time. Neurological: Cranial nerves II-XII grossly intact Psych/Mental Status: Normal Affect, Appropriate Vital Signs Temp Pulse Resp BP Pulse Ox 96.6 F L 82 16 140/83 H 97 11/14/17 15:43 11/14/17 15:43 11/14/17 15:43 11/14/17 15:43 11/14/17 15:43 Oxygen Delivery Method Room Air Weight: 289 lb 2 oz Body Mass Index (BMI) 34.9 Finger Stick Blood Glucose 168 Intake and Output for Last 24 Hours 11/12/17 11/13/17 11/14/17 23:59 23:59 23:59 Intake Total 1100 / 1100 2588 / 2588 880 / 880 Output Total 1610 / 1610 1805 / 1805 600 / 600 Balance -510 / -510 783 / 783 280 / 280 Drainage 5 ml yesterday. 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 without evidence of necrosis (Acute) Cellulitis (Resolved) Cellulitis and abscess of toe of left foot (Resolved) Cellulitis of great toe, left (Resolved) Cellulitis of leg (Resolved) Cellulitis of right foot (Resolved) Deep venous thrombosis (Resolved) Diabetic toe ulcer (Resolved) Fracture of left foot (Resolved) Hammer toe of right foot (Resolved) Healed ulcer of left foot on examination (Resolved) Lymphangitis (Resolved) Non-pressure chronic ulcer of other part of right foot with fat layer exposed (Resolved) Right foot infection (Resolved) Sepsis (Resolved) Skin ulcer of left great toe with fat layer exposed (Resolved) Toe osteomyelitis, right (Resolved) Ulcer of right leg (Resolved) Ulcer of right lower extremity with fat layer exposed (Resolved) Ulcer of right lower extremity with fat layer exposed (Resolved) Ulcer of right second toe with fat layer exposed (Resolved) Ulcer of toe of right foot (Resolved) Ulcer with necrosis of muscle (Resolved) Wound of left leg (Resolved) Wound of right leg (Resolved) 1. Infection of left BKA stump 2. Dehiscence of left BKA stump. 3. Osteomyelitis. 4. History of MRSA. 5. Diabetes mellitus. 6. Former smoker. 7. Postop contusion left BKA stump. PICC line will be replaced today. Infectious Diseases agrees with the need for IV antibiotics with Vancomycin and Zosyn. His operative culture showed Enterobacter cloacae. He has a history of recent MRSA. The Pathology from his surgery on 10/28/17 showed acute and chronic osteomyelitis. With his fall today on his stump, there appears no immediate wound issues. However, will observe closely since his suture line is still a little swollen from his recent revision surgery on 10/28/17. The change to IV antibiotics has helped decrease the redness and swelling a lot. The stump is certainly at risk for wound healing issues secondary to the osteomyelitis and also secondary to his recent traumatic contusion to the stump from a fall today. Will continue to observe. I was going to remove the drain today. With the recent fall, I will remove the drain next week. After discharge, he will need [facility] to treat his osteomyelitis. Patient was hoping to go home and continue the IV antibiotics at home. However the cost to the patient was close to $2000 for the remaining 4 weeks of IV antibiotic treatment. He cannot afford that and therefore he will stay here for the time being.
[2017-11-14 21:26] LABS: Bedside Glucose 119 mg/dL (70-110)
[2017-11-14] MEDS: 0.9% NaCl IVPB Med Flush (250 mL) 15 ML IV ×2 (21:33→21:36)
[2017-11-14] MEDS: Atorvastatin Calcium 40 MG Tablet PO (21:35)
[2017-11-15] MEDS: oxyCODONE 5 MG Tablet 10 MG PO ×5 (00:58→22:02)
[2017-11-15] MEDS: diazePAM 5 MG Tablet PO ×4 (04:51→22:02)
[2017-11-15] MEDS: Gabapentin 400 MG Capsule 800 MG PO ×4 (04:52→21:44)
[2017-11-15] MEDS: Losartan Potassium 100 MG Tablet PO (04:52)
[2017-11-15] MEDS: Triamterene 37.5MG/Hctz 25MG Capsule 1 CAP PO (04:52)
[2017-11-15] MEDS: buPROPion (XL) 150 MG TABLET.XL PO ×2 (04:52→17:46)
[2017-11-15] MEDS: Pantoprazole Sodium 20 MG Tablet PO ×2 (04:52→17:47)
[2017-11-15] MEDS: Citalopram 20 MG Tablet 40 MG PO (04:52)
[2017-11-15] MEDS: Glucerna Shake 120 ML LIQUID PO ×4 (04:52→21:42)
[2017-11-15] MEDS: Piperacil/Tazobactam 3.375 GM/50 ML ML IV ×3 (05:01→21:47)
[2017-11-15] MEDS: Enoxaparin 40 MG/0.4 ML Syringe SC (05:02)
[2017-11-15] MEDS: Mupirocin Ointment 22gm Tube 1 APPLIC TOPICAL (05:03)
[2017-11-15] MEDS: 0.9% NaCl Peripheral Flush Adult/Peds IV ×3 (05:06→21:48)
[2017-11-15 05:14] LABS: Absolute Lymphocyte Count 1.92 X10^3/ul (0.83-4.51); Absolute Neutrophil Count 4.1 X10^3/uL (2.0-7.7); Basophil# 0.04 X10^3/uL; Basophil% 0.6 % (0-1); Eosinophil# 0.33 X10^3/uL; Eosinophils% 4.8 % (0-5); Hematocrit 34.4 % (40-54); Hemoglobin 10.9 g/dl (13.0-16.5); Lymphocyte # 1.92 X10^3/ul (4.0); Lymphocyte % 27.9 % (19-41); Mean Corp Hgb Conc 31.7 g/gl (32-36); Mean Corpuscular Hgb 27.1 pg (27.0-32.0); Mean Corpuscular Volume 85.6 fL (80-94); Mean Platelet Vol. 9.1 fl (6.2-12.0); Monocyte# 0.51 X10^3/uL; Monocyte% 7.4 % (0-10); Neutrophil # 4.06 X10^3/uL (2.7-7.7); Neutrophil % 58.9 % (47-70); Platelet Count 374 K/mm3 (150-450); RBC Distribution Width CV 14.4 % (11.6-14.6); Red Blood Count 4.02 M/mm3 (4.6-6.2); White Blood Count 6.9 K/mm3 (4.4-11.0)
[2017-11-15 05:19] LABS: POSITIVE COUNT NO; POSITIVE DIFFERENTIAL NO; POSITIVE MORPHOLOGY NO
[2017-11-15 05:49] LABS: Anion Gap 8 (5-15); BUN 21 mg/dL (7-18); BUN/Creat Ratio 21.6 RATIO (10-20); Chloride 102 mmol/L (98-107); Creatinine, Serum 0.97 mg/dL (0.70-1.30); EST Glomerular Filtration Rate 83 mL/min (>60); Est Glom Filt Rate - Afr Amer 101 mL/min (>60); Estimated Creatinine Clearance 95.58 ml/min; Glucose 99 mg/dL (74-106); Potassium 4.2 mmol/L (3.5-5.1); Sodium Level 142 mmol/L (136-145)
[2017-11-15 07:01] LABS: Bedside Glucose 117 mg/dL (70-110)
[2017-11-15] MEDS: Insulin Lispro 100 UNIT/ML INSULN.PEN 20 UNIT SC ×3 (08:49→17:49)
[2017-11-15] MEDS: metFORMIN HCl 1,000 MG Tablet 1000 MG PO ×2 (08:49→17:47)
[2017-11-15] MEDS: Iron Polysaccharide Complex 150 MG CAPSULE PO (08:49)
[2017-11-15] MEDS: Insulin NPH Human 100 UNITS/ML PEN 50 UNITS SC ×2 (10:49→17:49)
[2017-11-15 11:01] LABS: Bedside Glucose 233 mg/dL (70-110)
[2017-11-15 15:19] VITALS: BP 124/76; PULSE 75; RESP 16; TEMP 36.1; O2SAT 96
[2017-11-15 17:01] LABS: Bedside Glucose 165 mg/dL (70-110)
[2017-11-15] MEDS: Senna/Docusate Sodium 1 Tablet 2 TABLET PO (17:48)
[2017-11-15 21:26] LABS: Bedside Glucose 126 mg/dL (70-110)
[2017-11-15] MEDS: Atorvastatin Calcium 40 MG Tablet PO (21:44)
[2017-11-15] MEDS: 0.9% NaCl IVPB Med Flush (250 mL) 15 ML IV (21:47)
[2017-11-16] MEDS: diazePAM 5 MG Tablet PO ×2 (05:58→20:34)
[2017-11-16] MEDS: oxyCODONE 5 MG Tablet 10 MG PO ×2 (05:59→20:34)
[2017-11-16] MEDS: 0.9% NaCl Peripheral Flush Adult/Peds IV ×3 (06:02→21:23)
[2017-11-16] MEDS: Glucerna Shake 120 ML LIQUID PO ×4 (06:02→20:33)
[2017-11-16] MEDS: Piperacil/Tazobactam 3.375 GM/50 ML ML IV ×3 (06:02→21:23)
[2017-11-16] MEDS: Citalopram 20 MG Tablet 40 MG PO (06:05)
[2017-11-16] MEDS: Triamterene 37.5MG/Hctz 25MG Capsule 1 CAP PO (06:05)
[2017-11-16] MEDS: Losartan Potassium 100 MG Tablet PO (06:05)
[2017-11-16] MEDS: buPROPion (XL) 150 MG TABLET.XL PO ×2 (06:05→16:52)
[2017-11-16] MEDS: Pantoprazole Sodium 20 MG Tablet PO ×2 (06:05→16:52)
[2017-11-16] MEDS: Enoxaparin 40 MG/0.4 ML Syringe SC (06:05)
[2017-11-16] MEDS: Gabapentin 400 MG Capsule 800 MG PO ×4 (06:05→20:34)
[2017-11-16] MEDS: 0.9% NaCl IVPB Med Flush (250 mL) 15 ML IV ×2 (06:14→10:34)
[2017-11-16 07:00] LABS: Bedside Glucose 96 mg/dL (70-110)
[2017-11-16] MEDS: Iron Polysaccharide Complex 150 MG CAPSULE PO (08:25)
[2017-11-16] MEDS: metFORMIN HCl 1,000 MG Tablet 1000 MG PO ×2 (08:25→16:52)
[2017-11-16] MEDS: Insulin NPH Human 100 UNITS/ML PEN 50 UNITS SC ×2 (10:32→21:42)
[2017-11-16] MEDS: Mupirocin Ointment 22gm Tube 1 APPLIC TOPICAL (10:34)
--- NOTE | 2017-11-16 10:53 | NURSING ---
Dressing changed to left stump per order. Patient tolerated well. Moderate amount of serosanguineous drainage to old dressing.
[2017-11-16 11:16] LABS: Bedside Glucose 135 mg/dL (70-110)
[2017-11-16] MEDS: Insulin Lispro 100 UNIT/ML INSULN.PEN 20 UNIT SC ×3 (12:40→17:27)
[2017-11-16 15:25] VITALS: BP 138/76; PULSE 73; RESP 14; TEMP 36.1; O2SAT 97
[2017-11-16 17:00] LABS: Bedside Glucose 141 mg/dL (70-110)
[2017-11-16] MEDS: Atorvastatin Calcium 40 MG Tablet PO (20:34)
[2017-11-16 21:26] LABS: Bedside Glucose 162 mg/dL (70-110)
[2017-11-17] MEDS: oxyCODONE 5 MG Tablet 10 MG PO ×4 (02:06→21:48)
[2017-11-17] MEDS: diazePAM 5 MG Tablet PO ×4 (02:07→21:52)
[2017-11-17] MEDS: Glucerna Shake 120 ML LIQUID PO ×4 (05:18→21:52)
[2017-11-17] MEDS: Acetaminophen 500 MG Tablet 1000 MG PO (05:19)
[2017-11-17] MEDS: 0.9% NaCl IVPB Med Flush (250 mL) 15 ML IV ×3 (05:35→23:48)
[2017-11-17] MEDS: 0.9% NaCl Peripheral Flush Adult/Peds IV ×4 (05:37→21:49)
[2017-11-17] MEDS: Piperacil/Tazobactam 3.375 GM/50 ML ML IV ×3 (05:37→23:48)
[2017-11-17] MEDS: Pantoprazole Sodium 20 MG Tablet PO ×2 (05:42→17:31)
[2017-11-17] MEDS: Triamterene 37.5MG/Hctz 25MG Capsule 1 CAP PO (05:42)
[2017-11-17] MEDS: buPROPion (XL) 150 MG TABLET.XL PO ×2 (05:42→17:30)
[2017-11-17] MEDS: Losartan Potassium 100 MG Tablet PO (05:43)
[2017-11-17] MEDS: Gabapentin 400 MG Capsule 800 MG PO ×4 (05:43→21:50)
[2017-11-17] MEDS: Citalopram 20 MG Tablet 40 MG PO (05:43)
[2017-11-17] MEDS: Enoxaparin 40 MG/0.4 ML Syringe SC (05:43)
[2017-11-17 06:04] LABS: Erythrocyte Sedimentation Rate 50 mm/hr (0-20)
[2017-11-17 07:01] LABS: Bedside Glucose 128 mg/dL (70-110)
[2017-11-17] MEDS: Iron Polysaccharide Complex 150 MG CAPSULE PO (07:50)
[2017-11-17] MEDS: metFORMIN HCl 1,000 MG Tablet 1000 MG PO ×2 (07:50→17:31)
[2017-11-17] MEDS: Insulin Lispro 100 UNIT/ML INSULN.PEN 20 UNIT SC ×3 (07:50→17:33)
[2017-11-17] MEDS: Insulin NPH Human 100 UNITS/ML PEN 50 UNITS SC ×2 (09:34→21:55)
[2017-11-17] MEDS: Mupirocin Ointment 22gm Tube 1 APPLIC TOPICAL (09:38)
--- NOTE | 2017-11-17 09:41 | CASEMGMT ---
Insurance Clinical information sent. Pending continued stay approval. Auth#[id number] Ester PEREZ, FURNITURE UPHOLSTERY MECHANIC
[2017-11-17 11:11] LABS: Bedside Glucose 116 mg/dL (70-110)
--- NOTE | 2017-11-17 13:41 | CASEMGMT ---
Insurance Continued stay approved with next update due on 11/19/17. Auth#[id number] Ester PEREZ, HAND SCREEN PRINTER
--- NOTE | 2017-11-17 13:45 | NURSING ---
Unable to flush dual lumens, Dr Fernández notified, new order for cathflo. RN user support analyst supervisor notified.
[2017-11-17] MEDS: Alteplase 2 MG/2 ML Vial IV (15:02)
[2017-11-17 15:19] VITALS: BP 144/67; PULSE 78; RESP 18; TEMP 36.3; O2SAT 94
--- NOTE | 2017-11-17 15:59 | CHAPLAIN ---
Type of Pastoral Visit ___ Initial Visit _x__ Follow-up Visit ___ On-call Visit ___ General Patient Visit ___ Spiritual Assessment ___ Family Conference ___ Bereavement ___ Rapid Response ___ Code Blue ___ Other (describe below) Pastoral Care Referral From _x__ Patient ___ Family ___ Nurse ___ Physician ___ Outside Plant Field Engineer ___ Foreign Diplomat ___ Other (describe below) Sacrament/Intervention _x__ Active listening ___ Anointing ___ Voodoo ___ Bereavement ___ Communion ___ Bridgett exploration ___ _x__ Life review _x__ Prayer ___ Reconciliation ___ Sacrament of Sick _x__ Supportive presence ___ Wedding ___ Other (describe below) Pastoral Comments
[2017-11-17 17:00] LABS: Bedside Glucose 117 mg/dL (70-110)
[2017-11-17] MEDS: Senna/Docusate Sodium 1 Tablet 2 TABLET PO (17:32)
[2017-11-17 21:01] LABS: Bedside Glucose 124 mg/dL (70-110)
[2017-11-17] MEDS: Atorvastatin Calcium 40 MG Tablet PO (21:50)
--- NOTE | 2017-11-17 22:59 | NURSING ---
Angélica RN tunnel heading supervisor up this evening to try and get Distal red picc line to flush with catheflo. Unable to get red picc line to flush. Purple picc line flushes with good blood return. Per tunnel heading supervisor ok to continue to use proximal purple picc line to administer IV medications.
[2017-11-18] MEDS: Piperacil/Tazobactam 3.375 GM/50 ML ML IV ×3 (06:45→20:59)
[2017-11-18] MEDS: oxyCODONE 5 MG Tablet 10 MG PO ×4 (06:47→21:09)
[2017-11-18] MEDS: diazePAM 5 MG Tablet PO ×3 (06:47→21:01)
[2017-11-18] MEDS: Glucerna Shake 120 ML LIQUID PO ×4 (06:48→21:11)
[2017-11-18] MEDS: buPROPion (XL) 150 MG TABLET.XL PO ×2 (06:49→17:14)
[2017-11-18] MEDS: Losartan Potassium 100 MG Tablet PO (06:49)
[2017-11-18] MEDS: Citalopram 20 MG Tablet 40 MG PO (06:49)
[2017-11-18] MEDS: Pantoprazole Sodium 20 MG Tablet PO ×2 (06:49→17:13)
[2017-11-18] MEDS: Enoxaparin 40 MG/0.4 ML Syringe SC (06:50)
[2017-11-18] MEDS: Triamterene 37.5MG/Hctz 25MG Capsule 1 CAP PO (06:50)
[2017-11-18] MEDS: Gabapentin 400 MG Capsule 800 MG PO ×4 (06:50→21:08)
[2017-11-18 07:01] LABS: Bedside Glucose 76 mg/dL (70-110)
[2017-11-18] MEDS: Mupirocin Ointment 22gm Tube 1 APPLIC TOPICAL (08:03)
[2017-11-18] MEDS: metFORMIN HCl 1,000 MG Tablet 1000 MG PO ×2 (08:03→17:14)
[2017-11-18] MEDS: Iron Polysaccharide Complex 150 MG CAPSULE PO (08:04)
[2017-11-18] MEDS: Insulin Lispro 100 UNIT/ML INSULN.PEN 20 UNIT SC ×3 (08:06→17:16)
[2017-11-18 10:54] LABS: Vancomycin, Trough Level 17.7 ug/mL (5.0-15.0)
--- NOTE | 2017-11-18 11:32 | PCM.RX.CS ---
Consult Pharmacy has been consulted to manage selected antiobiotic: Vancomycin Type of Consult: Follow-up Prior Doses of Antibiotics Received/Current Regimen: VANCOMYCIN 2000MG IV Q12HRS: 11/17 @ 0927, 2146 Labs: Sodium 142 mmol/L (136-145) 11/15/17 05:00 Potassium 4.2 mmol/L (3.5-5.1) 11/15/17 05:00 Chloride 102 mmol/L (98-107) 11/15/17 05:00 Carbon Dioxide 32.0 mmol/L (21.0-32.0) 11/15/17 05:00 Anion Gap 8 (5-15) 11/15/17 05:00 BUN 21 mg/dL (7-18) H 11/15/17 05:00 Creatinine 0.97 mg/dL (0.70-1.30) 11/15/17 05:00 Est GFR (MDRD) Af Amer 101 mL/min (>60) 11/15/17 05:00 Est GFR (MDRD) Non-Af 83 mL/min (>60) 11/15/17 05:00 BUN/Creatinine Ratio 21.6 RATIO (10-20) H 11/15/17 05:00 Glucose 99 mg/dL (74-106) 11/15/17 05:00 Vancomycin Trough 17.7 ug/mL (5.0-15.0) H 11/18/17 10:08 Goal Trough: 15-20 mcg/mL Pharmacy Plan for Drug Dosing: The patient had a trough drawn 11/18/17 @1008 which resulted in a value of 17.7 (~12hrs from previous administered dose). This is within the patient's trough goal of 15-20. Will continue current regimen and check trough in 1 week. PLAN/RECOMMENDATIONS 1. Continue vancomycin 2g IV Q12hrs 2. Trough scheduled for 11/25/17 @0930 3. Pharmacy Service will continue to monitor and adjust dosing as required.
[2017-11-18] MEDS: Insulin NPH Human 100 UNITS/ML PEN 50 UNITS SC ×2 (11:39→20:29)
[2017-11-18 11:45] LABS: Bedside Glucose 217 mg/dL (70-110)
[2017-11-18 15:12] VITALS: BP 135/75; PULSE 80; RESP 18; TEMP 36.1; O2SAT 92
[2017-11-18 17:10] LABS: Bedside Glucose 138 mg/dL (70-110)
--- NOTE | 2017-11-18 18:00 | RAD_ITS ---
STUDY: X-RAY CHEST REASON FOR EXAM: Male, 62 years old. PICC line occlusion. TECHNIQUE: Single AP portable view of the chest. COMPARISON: June 09, 2017 FINDINGS: PICC on the right extends to the mid superior vena cava. The lungs are clear and expanded. There is no demonstrated pleural abnormality. Normal size heart. Normal mediastinum and valencia. Normal visualized pulmonary arteries. Normal visualized aortic arch and descending thoracic aorta. There are diffuse degenerative changes of the visualized thoracic spine. Normal visualized ribs, clavicles, and shoulders. There is no demonstrated abnormality of the visualized soft tissue structures of the upper abdomen. RAD/CXR for Line Placement IMPRESSION: Degenerative changes, as described above. No demonstrated acute cardiopulmonary process. There is PICC on the right. Electronically Signed: Morgan Gonzalez MD at 18:35 EDT , Service support ,
[2017-11-18 20:36] LABS: Bedside Glucose 121 mg/dL (70-110)
[2017-11-18] MEDS: 0.9% NaCl IVPB Med Flush (250 mL) 15 ML IV (21:01)
[2017-11-18] MEDS: 0.9% NaCl Peripheral Flush Adult/Peds IV (21:08)
[2017-11-18] MEDS: Atorvastatin Calcium 40 MG Tablet PO (21:09)
[2017-11-18] MEDS: NYSTATIN 500,000 UNIT/5 ML UDC 500000 UNIT PO (21:11)
[2017-11-19] MEDS: oxyCODONE 5 MG Tablet 10 MG PO ×3 (03:42→20:53)
[2017-11-19] MEDS: diazePAM 5 MG Tablet PO ×3 (03:42→20:53)
[2017-11-19] MEDS: Piperacil/Tazobactam 3.375 GM/50 ML ML IV ×3 (03:43→20:47)
[2017-11-19] MEDS: 0.9% NaCl Peripheral Flush Adult/Peds IV ×3 (03:44→13:18)
[2017-11-19] MEDS: Glucerna Shake 120 ML LIQUID PO ×4 (06:15→20:54)
[2017-11-19] MEDS: Enoxaparin 40 MG/0.4 ML Syringe SC (06:16)
[2017-11-19] MEDS: NYSTATIN 500,000 UNIT/5 ML UDC 500000 UNIT PO ×4 (06:16→20:55)
[2017-11-19] MEDS: Triamterene 37.5MG/Hctz 25MG Capsule 1 CAP PO (06:17)
[2017-11-19] MEDS: Gabapentin 400 MG Capsule 800 MG PO ×4 (06:17→20:55)
[2017-11-19] MEDS: Citalopram 20 MG Tablet 40 MG PO (06:17)
[2017-11-19] MEDS: Pantoprazole Sodium 20 MG Tablet PO ×2 (06:19→17:57)
[2017-11-19] MEDS: Losartan Potassium 100 MG Tablet PO (06:19)
[2017-11-19] MEDS: buPROPion (XL) 150 MG TABLET.XL PO ×2 (06:19→17:58)
[2017-11-19] MEDS: Mupirocin Ointment 22gm Tube 1 APPLIC TOPICAL (06:22)
[2017-11-19 06:31] LABS: Bedside Glucose 63 mg/dL (70-110)
[2017-11-19 06:56] LABS: Bedside Glucose 89 mg/dL (70-110)
[2017-11-19] MEDS: Insulin Lispro 100 UNIT/ML INSULN.PEN 20 UNIT SC ×2 (08:27→11:43)
[2017-11-19] MEDS: Iron Polysaccharide Complex 150 MG CAPSULE PO (08:28)
[2017-11-19] MEDS: metFORMIN HCl 1,000 MG Tablet 1000 MG PO ×2 (08:28→17:56)
[2017-11-19] MEDS: Insulin NPH Human 100 UNITS/ML PEN 50 UNITS SC (10:29)
--- NOTE | 2017-11-19 10:50 | NURSING ---
certified emergency vehicle technician notified to reinsert PICC.
[2017-11-19 10:51] LABS: Bedside Glucose 143 mg/dL (70-110)
[2017-11-19 11:46] LABS: Bedside Glucose 81 mg/dL (70-110)
--- NOTE | 2017-11-19 12:04 | CASEMGMT ---
Insurance Clinical information sent. Pending continued stay approval at this time. Auth#[id number] Ester PEREZ, BALLROOM DANCE INSTRUCTOR
--- NOTE | 2017-11-19 14:00 | NURSING ---
cosmetic account coordinator here, assessed PICC line, was able to flush and get blood return from both lumens.
--- NOTE | 2017-11-19 15:29 | NURSING ---
Pt up for therapy, c/o not feeling right, accucheck 42, orange juice with sugar given, candy given, lab called for back up draw, will recheck in 10 minutes. Therapy to do exercises in room.
[2017-11-19 15:31] VITALS: BP 135/73; PULSE 83; RESP 18; TEMP 35.8; O2SAT 98
[2017-11-19 15:31] LABS: Bedside Glucose 42 mg/dL (70-110)
[2017-11-19 15:41] LABS: Bedside Glucose 57 mg/dL (70-110)
[2017-11-19 15:55] LABS: Bedside Glucose 77 mg/dL (70-110)
[2017-11-19 16:29] LABS: Glucose 78 mg/dL (74-106)
--- NOTE | 2017-11-19 16:44 | CASEMGMT ---
Insurance Continued stay approved with next update due on 11/25/17. Auth#[id number] Ester PEREZ, BOILER RIVETER
[2017-11-19 16:51] LABS: Bedside Glucose 132 mg/dL (70-110)
[2017-11-19] MEDS: Insulin Lispro 100 UNIT/ML INSULN.PEN 15 UNIT SC (18:06)
[2017-11-19] MEDS: 0.9% NaCl IVPB Med Flush (250 mL) 15 ML IV (20:47)
[2017-11-19 20:51] LABS: Bedside Glucose 285 mg/dL (70-110)
[2017-11-19] MEDS: Atorvastatin Calcium 40 MG Tablet PO (20:55)
[2017-11-19] MEDS: Insulin NPH Human 100 UNITS/ML PEN 37 UNITS SC (21:35)
[2017-11-20] MEDS: oxyCODONE 5 MG Tablet 10 MG PO ×3 (01:54→21:46)
[2017-11-20] MEDS: Mupirocin Ointment 22gm Tube 1 APPLIC TOPICAL (01:55)
[2017-11-20] MEDS: diazePAM 5 MG Tablet PO ×3 (01:55→21:46)
[2017-11-20] MEDS: Piperacil/Tazobactam 3.375 GM/50 ML ML IV ×3 (04:48→20:58)
[2017-11-20] MEDS: Pantoprazole Sodium 20 MG Tablet PO ×2 (04:51→17:24)
[2017-11-20] MEDS: buPROPion (XL) 150 MG TABLET.XL PO ×2 (04:52→17:28)
[2017-11-20] MEDS: Gabapentin 400 MG Capsule 800 MG PO ×4 (04:52→21:03)
[2017-11-20] MEDS: Enoxaparin 40 MG/0.4 ML Syringe SC (04:53)
[2017-11-20] MEDS: Triamterene 37.5MG/Hctz 25MG Capsule 1 CAP PO (04:53)
[2017-11-20] MEDS: Citalopram 20 MG Tablet 40 MG PO (04:53)
[2017-11-20] MEDS: Losartan Potassium 100 MG Tablet PO (04:53)
[2017-11-20] MEDS: NYSTATIN 500,000 UNIT/5 ML UDC 500000 UNIT PO ×4 (04:54→21:04)
[2017-11-20] MEDS: 0.9% NaCl Peripheral Flush Adult/Peds IV ×3 (04:54→20:59)
[2017-11-20] MEDS: Glucerna Shake 120 ML LIQUID PO ×4 (04:55→21:02)
[2017-11-20 06:56] LABS: Bedside Glucose 109 mg/dL (70-110)
[2017-11-20] MEDS: Insulin Lispro 100 UNIT/ML INSULN.PEN 15 UNIT SC ×3 (08:27→18:16)
[2017-11-20] MEDS: metFORMIN HCl 1,000 MG Tablet 1000 MG PO ×2 (08:27→17:23)
[2017-11-20] MEDS: Iron Polysaccharide Complex 150 MG CAPSULE PO (08:27)
[2017-11-20] MEDS: Insulin NPH Human 100 UNITS/ML PEN 37 UNITS SC ×2 (10:31→21:06)
[2017-11-20 11:10] LABS: Bedside Glucose 160 mg/dL (70-110)
[2017-11-20 15:14] VITALS: BP 129/68; PULSE 74; RESP 18; TEMP 36.2; O2SAT 95
[2017-11-20 17:01] LABS: Bedside Glucose 117 mg/dL (70-110)
[2017-11-20] MEDS: Senna/Docusate Sodium 1 Tablet 2 TABLET PO (17:24)
[2017-11-20] MEDS: Atorvastatin Calcium 40 MG Tablet PO (21:03)
[2017-11-20 21:11] LABS: Bedside Glucose 167 mg/dL (70-110)
[2017-11-21] MEDS: 0.9% NaCl IVPB Med Flush (250 mL) 15 ML IV (04:35)
[2017-11-21] MEDS: Piperacil/Tazobactam 3.375 GM/50 ML ML IV ×3 (04:35→20:45)
[2017-11-21] MEDS: Glucerna Shake 120 ML LIQUID PO ×4 (04:41→21:22)
[2017-11-21] MEDS: 0.9% NaCl Peripheral Flush Adult/Peds IV ×2 (04:41→10:42)
[2017-11-21] MEDS: buPROPion (XL) 150 MG TABLET.XL PO ×2 (04:43→17:47)
[2017-11-21] MEDS: Citalopram 20 MG Tablet 40 MG PO (04:43)
[2017-11-21] MEDS: Losartan Potassium 100 MG Tablet PO (04:43)
[2017-11-21] MEDS: Enoxaparin 40 MG/0.4 ML Syringe SC (04:44)
[2017-11-21] MEDS: Gabapentin 400 MG Capsule 800 MG PO ×4 (04:46→21:18)
[2017-11-21] MEDS: Triamterene 37.5MG/Hctz 25MG Capsule 1 CAP PO (04:47)
[2017-11-21] MEDS: oxyCODONE 5 MG Tablet 10 MG PO (04:47)
[2017-11-21] MEDS: diazePAM 5 MG Tablet PO (04:47)
[2017-11-21] MEDS: Pantoprazole Sodium 20 MG Tablet PO ×2 (04:48→17:46)
[2017-11-21] MEDS: NYSTATIN 500,000 UNIT/5 ML UDC 500000 UNIT PO ×4 (04:49→21:18)
[2017-11-21] MEDS: Mupirocin Ointment 22gm Tube 1 APPLIC TOPICAL (04:52)
[2017-11-21 07:01] LABS: Bedside Glucose 136 mg/dL (70-110)
[2017-11-21] MEDS: Insulin Lispro 100 UNIT/ML INSULN.PEN 15 UNIT SC ×3 (08:13→17:47)
[2017-11-21] MEDS: metFORMIN HCl 1,000 MG Tablet 1000 MG PO ×2 (08:15→17:46)
[2017-11-21] MEDS: Iron Polysaccharide Complex 150 MG CAPSULE PO (08:16)
[2017-11-21 10:00] VITALS: PULSE 72; RESP 18; O2SAT 94
[2017-11-21] MEDS: Insulin NPH Human 100 UNITS/ML PEN 37 UNITS SC ×2 (10:46→21:20)
[2017-11-21 11:40] LABS: Bedside Glucose 191 mg/dL (70-110)
--- NOTE | 2017-11-21 12:21 | CHAPLAIN ---
Type of Pastoral Visit ___ Initial Visit _x__ Follow-up Visit ___ On-call Visit ___ General Patient Visit ___ Spiritual Assessment ___ Family Conference ___ Bereavement ___ Rapid Response ___ Code Blue ___ Other (describe below) Pastoral Care Referral From _x__ Patient ___ Family ___ Nurse ___ Physician ___ Associate Artistic Director ___ Management Development Specialist ___ Other (describe below) Sacrament/Intervention _x__ Active listening ___ Anointing ___ Gnosticist ___ Bereavement ___ Communion ___ Bridgett exploration ___ ___ Life review ___ Prayer ___ Reconciliation ___ Sacrament of Sick ___ Supportive presence ___ Wedding ___ Other (describe below) Pastoral Comments
--- NOTE | 2017-11-21 13:45 | PCM.PN.SRG ---
Subjective: Postop #24 Patient is resting comfortably. - Physical Exam General: Alert, Oriented x3, No apparent distress HEENT: PERRLA, EOMI Oral: Moist Mucosa Neck: Supple Skin: Incision - stump is soft and the incision appears intact at the edges. Mild swelling present. On the central anterior aspect of the suture line, there is a separation that measures 4 x 1 cm. It is superficial. The underlying dermis shows good granulation tissue. No extension down to the bone is noted at this time. No bruising on the skin noted. No clinical evidence of hematoma at this time. Neurological: Cranial nerves II-XII grossly intact Psych/Mental Status: Normal Affect, Appropriate Vital Signs Temp Pulse Resp BP Pulse Ox 97.1 F L 72 18 129/68 H 94 11/20/17 15:14 11/21/17 10:00 11/21/17 10:00 11/20/17 15:14 11/21/17 10:00 Oxygen Delivery Method Room Air Weight: 290 lb Body Mass Index (BMI) 34.9 Finger Stick Blood Glucose 168 Intake and Output for Last 24 Hours 11/19/17 11/20/17 11/21/17 23:59 23:59 23:59 Intake Total 1720 / 1720 2020 / 2020 960 / 960 Output Total 4125 / 4125 2110 / 2110 1800 / 1800 Balance -2405 / -2405 -90 / -90 -840 / -840 Drainage 10 ml yesterday. POC Glucose 11/21/17 11/21/17 11/20/17 11:21 06:44 21:02 POC Glucose 191 H 136 H 167 H 11/20/17 16:52 POC Glucose 117 H 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 involvement without evidence of necrosis (Acute) Cellulitis (Resolved) Cellulitis and abscess of toe of left foot (Resolved) Cellulitis of great toe, left (Resolved) Cellulitis of leg (Resolved) Cellulitis of right foot (Resolved) Deep venous thrombosis (Resolved) Diabetic toe ulcer (Resolved) Fracture of left foot (Resolved) Hammer toe of right foot (Resolved) Healed ulcer of left foot on examination (Resolved) Lymphangitis (Resolved) Non-pressure chronic ulcer of other part of right foot with fat layer exposed (Resolved) Right foot infection (Resolved) Sepsis (Resolved) Skin ulcer of left great toe with fat layer exposed (Resolved) Toe osteomyelitis, right (Resolved) Ulcer of right leg (Resolved) Ulcer of right lower extremity with fat layer exposed (Resolved) Ulcer of right lower extremity with fat layer exposed (Resolved) Ulcer of right second toe with fat layer exposed (Resolved) Ulcer of toe of right foot (Resolved) Ulcer with necrosis of muscle (Resolved) Wound of left leg (Resolved) Wound of right leg (Resolved) 1. Infection of left BKA stump 2. Dehiscence of left BKA stump. 3. Osteomyelitis. 4. History of MRSA. 5. Diabetes mellitus. 6. Former smoker. 7. Postop contusion left BKA stump. 8. Early compromised left BKA stump flap. Continue IV antibiotics with Vancomycin and Zosyn. His operative culture showed Enterobacter cloacae. He has a history of recent MRSA. The Pathology from his surgery on 10/28/17 showed acute and chronic osteomyelitis. Since his fall on his stump a week ago, there is an area on the central anterior aspect of the incision that has and measures 4 x 1 cm. The underlying subcutaneous tissue is intact with no extension to the bone at this time. Will continue to observe. Will start wound care with Silver dressings daily followed by gauze and compression CONCHIS wrap. The drain was removed today without difficulty. The change to IV antibiotics has helped decrease the redness and swelling a lot. The stump is certainly at risk for wound healing issues secondary to the osteomyelitis and also secondary to his recent traumatic contusion to the stump from a fall today. Will continue to observe. After discharge, he will need [facility] at [facility] to treat his osteomyelitis as well as for his compromised stump flap.
--- NOTE | 2017-11-21 14:36 | PCM.TCUNOT ---
Subjective: Resident sleeping alot, he admits he is depressed, and he would rather sleep, than face the reality of being on the TCU. Vitals/I&O's: Vital Signs Temp Pulse Resp BP Pulse Ox 97.1 F L 72 18 129/68 H 94 11/20/17 15:14 11/21/17 10:00 11/21/17 10:00 11/20/17 15:14 11/21/17 10:00 Oxygen Delivery Method Room Air Weight: 131.542 kg Body Mass Index (BMI) 34.9 Finger Stick Blood Glucose 168 Intake and Output for Last 24 Hours 11/19/17 11/20/17 11/21/17 23:59 23:59 23:59 Intake Total 1720 / 1720 2020 / 2020 960 / 960 Output Total 4125 / 4125 2110 / 2110 1800 / 1800 Balance -2405 / -2405 -90 / -90 -840 / -840 Laboratory Results 11/20/17 16:52: POC Glucose 117 H 11/20/17 21:02: POC Glucose 167 H 11/21/17 06:44: POC Glucose 136 H 11/21/17 11:21: POC Glucose 191 H 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) Osteomyelitis (Chronic) Personal history of Methicillin resistant Staphylococcus aureus infection (Chronic) History of left below knee amputation (Chronic) 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) Obstructive sleep apnea (Chronic) Hyperlipidemia (Chronic) Chronic pain (Chronic) Diabetes mellitus (Chronic) Venous insufficiency (Chronic) Hypertension (Chronic) Osteomyelitis (Chronic) Non-pressure chronic ulcer of left heel and midfoot with muscle involvement without evidence of necrosis (Chronic) Infection of left foot (Chronic) Hypersomnia (Chronic) Ulcer of midfoot with necrosis of muscle (Chronic) Nocturnal hypoxemia (Chronic) Abscess of left foot (Chronic) Diabetic ulcer of left foot with fat layer exposed (Chronic) Non-pressure chronic ulcer of left heel and midfoot with fat layer exposed (Chronic) 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 Venous insufficiency of both lower extremities (Chronic) S/P transmetatarsal amputation of foot (Chronic) 03/04/[address] 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) Hypertension (Chronic) Amputation of right foot with complication (Chronic) Type 2 diabetes mellitus with diabetic polyneuropathy (Chronic) Stasis dermatitis of both legs (Chronic) Sleep apnea (Chronic) CPAP 15 cm H20, 100% compliant Neuropathy (Chronic) secondary to diabetes Morbid obesity (Chronic) Anemia (Chronic) Dyslipidemia (Chronic) Left ventricular hypertrophy (Chronic) Chronic pain syndrome (Chronic) Depression (Chronic) Medical History: Medical History (Last Reviewed 09/01/17 @ 13:36 by Shanique Martinez) Fracture of left foot (Resolved) S92.902A Non-pressure chronic ulcer of other part of right foot with fat layer exposed (Resolved) L97.512 Toe osteomyelitis, right (Resolved) M86.9 Ulcer of right lower extremity with fat layer exposed (Resolved) L97.912 Allergies cefepime Allergy (Verified 10/13/17 13:14) Hives sulfamethoxazole [From Septra] Allergy (Verified 10/13/17 13:14) turned red trimethoprim [From Septra] Allergy (Verified 10/13/17 13:14) turned red lisinopril Adverse Reaction (Verified 10/13/17 13:14) cough Home Medications: Ambulatory Orders Medication Instructions Recorded Metformin HCl [Glucophage] 1,000 mg PO BIDCM 11/15/14 Losartan Potassium [Cozaar] 100 mg PO DAILY 06/05/16 buPROPion XL [Wellbutrin Xl] 150 mg PO DAILY 01/21/17 Triamterene/Hydrochlorothiazid 1 each PO DAILY 03/24/17 [Triamterene-Hctz 37.5-25 mg Cp] Glucerna Shake 120 ml PO 4X/DAY 06/19/17 Atorvastatin Calcium [Lipitor] 40 mg PO QHS #30 tab 07/11/17 Iron Polysaccharide Complex 150 mg PO DAILYCM #30 cap 07/11/17 [Ferrex 150] Pantoprazole Sodium [Protonix] 20 mg PO BID #60 tab 07/11/17 Citalopram [Celexa] 40 mg PO DAILY 08/18/17 Gabapentin [Neurontin] 800 mg PO 4X/DAY 08/18/17 Insulin NPH Human Isophane 50 unit SQ BID 08/18/17 [Novolin N] Insulin Regular, Human [Novolin R] 20 unit SC TIDCM 08/18/17 Docusate Sodium [Colace] 100 mg PO BID 10/31/17 Insulin Lispro [Humalog KwikPen] 20 unit SC TIDCM 10/31/17 Insulin Lispro [Humalog KwikPen] See Protocol SC ACHS 10/31/17 Mupirocin [Bactroban] 1 applic TOPICAL DAILY 10/31/17 Nutritional Supplement [Greg - 1 packet PO BIDCM 10/31/17 ORANGE FLAVOR] Oxycodone [Oxyir] 10 mg PO Q4H PRN PRN 7 Days #60 tab 10/31/17 proMETHazine tablet [Phenergan 25 mg PO Q4H PRN PRN tablet 10/31/17 tablet] Diazepam [Valium] 5 mg PO 4X/DAY PRN PRN #30 tab 11/07/17 Oxycodone HCl/Acetaminophen 1 - 2 tab PO 4X/DAY PRN PRN 7 Days 11/07/17 [Percocet 5/325] #40 tab Piperacil/Tazobactam [Zosyn] 3.375 gm IV Q8 ml 11/13/17 Vancomycin IV 2,000 mg IV Q12H vial 11/13/17 Surgical History: - - Debridement left foot ulcer with versajet including necrotic muscle and widespread debridement plantar foot and incision and drainage left foot 01/24/17, Bone biopsy calcaneal cuboid bone left foot and excisional debridement left plantar foot ulceration 10/18/16, Right foot trans metatarsal amputation 03/04/16, Partial 4th toe amputation right foot at PIP joint 12/09/15, Excisional debridement including fascia left great toe 04/03/15, Right hallux amputation at MTP joint 12/29/14, microdiscectomy ?2, deviated septal repair, ulnar nerve repair, cholecystectomy, L BKA 06/24/17, now 10/28/17 Surgical preparation left BKA stump with excision dehiscence amputation stump ulcer and partial ostectomy tibia for osteomyelitis. 2. Reconstruction with re-advancement muscle flap and bipedicle periosteal advancement flap and secondary wound closure revision. Psychiatric History: Anxiety, Depression Lives: Spouse/ Significant Other Smoking Status: Former smoker Tobacco Use: Non-smoker Alcohol: None Drugs: None - *Family History Maternal History Items: Cancer, Heart Disease Paternal History Items: Heart Disease Review of Systems Constitutional: Denies: Chills, Fever, Weight Change HEENT: Denies: Head Aches, Sinus Congestion, Sinus Drainage Cardiovascular: Denies: Chest Pain, Palpitations Respiratory: Denies: Cough, Shortness of breath at rest, Sputum production Gastrointestinal: Denies: Abdominal Pain, Nausea, Vomiting Genitourinary: Denies: Dysuria Musculoskeletal: Denies: Joint Pain, Joint Tenderness Skin: Denies: Rash, Wounds Neurological: Denies: Numbness, Tingling, Focal weakness Psychiatric: Reports: Depression. Denies: Anxiety, Homicidal Ideations, Suicidal Ideations Hematologic/ Lymphatic: Denies: Easy Bruising, Easy Bleeding - Physical Exam General: Alert, Oriented x3, Cooperative HEENT: Atraumatic, PERRLA, EOMI, Normocephalic Neck: Supple, No JVD, Negative Carotid Bruits Lungs: Clear to auscultation, Normal air movement Cardiovascular: Regular rate, No murmurs Abdomen: Bowel Sounds Present, Soft, Non Tender Extremities: No edema, Capillary Refill Less than 3 Seconds, - - Left below knee amputation. Skin: No rashes, No breakdown Musculoskeletal: No Tenderness to Palpation of Joints or Extremities Neurological: Cranial nerves II-XII grossly intact Psych/Mental Status: Normal Affect, Appropriate Vital Signs Temp Pulse Resp BP Pulse Ox 97.1 F L 72 18 129/68 H 94 11/20/17 15:14 11/21/17 10:00 11/21/17 10:00 11/20/17 15:14 11/21/17 10:00 Oxygen Delivery Method Room Air Weight: 131.542 kg Body Mass Index (BMI) 34.9 Finger Stick Blood Glucose 168 Intake and Output for Last 24 Hours 11/19/17 11/20/17 11/21/17 23:59 23:59 23:59 Intake Total 1720 / 1720 2019 960 / 960 Output Total 4125 / 4125 2110 / 2110 1800 / 1800 Balance -2405 / -2405 -90 / -90 -840 / -840 POC Glucose 11/21/17 11/21/17 11/20/17 11:21 06:44 21:02 POC Glucose 191 H 136 H 167 H 11/20/17 16:52 POC Glucose 117 H Assessment/Plan All Active Problems (Last Reviewed 09/01/17 @ 13:36 by Shanique Martinez) Infection of amputation stump of left lower extremity (Acute) Dehiscence of amputation stump (Acute) Acute osteomyelitis of left foot (Acute) Non-pressure chronic ulcer of left heel and midfoot with bone involvement without evidence of necrosis (Acute) Cellulitis (Resolved) Cellulitis and abscess of toe of left foot (Resolved) Cellulitis of great toe, left (Resolved) Cellulitis of leg (Resolved) Cellulitis of right foot (Resolved) Deep venous thrombosis (Resolved) Diabetic toe ulcer (Resolved) Fracture of left foot (Resolved) Hammer toe of right foot (Resolved) Healed ulcer of left foot on examination (Resolved) Lymphangitis (Resolved) Non-pressure chronic ulcer of other part of right foot with fat layer exposed (Resolved) Right foot infection (Resolved) Sepsis (Resolved) Skin ulcer of left great toe with fat layer exposed (Resolved) Toe osteomyelitis, right (Resolved) Ulcer of right leg (Resolved) Ulcer of right lower extremity with fat layer exposed (Resolved) Ulcer of right lower extremity with fat layer exposed (Resolved) Ulcer of right second toe with fat layer exposed (Resolved) Ulcer of toe of right foot (Resolved) Ulcer with necrosis of muscle (Resolved) Wound of left leg (Resolved) Wound of right leg (Resolved) 62 year old male with below past medical history hospitalized for infected dehisced left BKA wound, underwent flap closure with Dr. Rodriguez 10/28/2017, admitted to TCU with debility, here for rehabilitation, strengthening, prior to discharge home with spouse. Depression - Bupropion 150MG twice daily, change Celexa 40MG to Fluoxetine 60MG daily to see if his depression will improve and he will have more energy, consider adding Cytomel as adjuvant.
--- NOTE | 2017-11-21 14:57 | NURSING ---
Dr. Rodriguez in to see patient, NO to apply Aquacel AG to stump incision and wrap with kerlix and CONCHIS wrap daily. Dr. Fernández in to see patient, NO to d/c celexa and start prozac 60mg daily.
[2017-11-21 16:00] VITALS: BP 130/66; PULSE 76; RESP 16; TEMP 36.6; O2SAT 96
[2017-11-21 16:56] LABS: Bedside Glucose 203 mg/dL (70-110)
[2017-11-21] MEDS: Atorvastatin Calcium 40 MG Tablet PO (21:19)
[2017-11-21 21:20] LABS: Bedside Glucose 244 mg/dL (70-110)
[2017-11-22] MEDS: 0.9% NaCl Peripheral Flush Adult/Peds IV ×2 (04:35→21:55)
[2017-11-22] MEDS: 0.9% NaCl IVPB Med Flush (250 mL) 15 ML IV (04:35)
[2017-11-22] MEDS: Piperacil/Tazobactam 3.375 GM/50 ML ML IV ×3 (04:35→21:49)
[2017-11-22] MEDS: diazePAM 5 MG Tablet PO ×2 (04:53→18:27)
[2017-11-22] MEDS: oxyCODONE 5 MG Tablet 10 MG PO ×2 (04:54→18:26)
[2017-11-22] MEDS: Mupirocin Ointment 22gm Tube 1 APPLIC TOPICAL (04:55)
[2017-11-22] MEDS: Pantoprazole Sodium 20 MG Tablet PO ×2 (04:55→18:12)
[2017-11-22] MEDS: Losartan Potassium 100 MG Tablet PO (04:55)
[2017-11-22] MEDS: buPROPion (XL) 150 MG TABLET.XL PO ×2 (04:56→18:12)
[2017-11-22] MEDS: FLUoxetine 20 MG Capsule 60 MG PO (04:56)
[2017-11-22] MEDS: Enoxaparin 40 MG/0.4 ML Syringe SC (04:56)
[2017-11-22] MEDS: Triamterene 37.5MG/Hctz 25MG Capsule 1 CAP PO (04:56)
[2017-11-22] MEDS: NYSTATIN 500,000 UNIT/5 ML UDC 500000 UNIT PO ×4 (04:57→21:19)
[2017-11-22] MEDS: Gabapentin 400 MG Capsule 800 MG PO ×4 (04:59→21:18)
[2017-11-22 05:09] LABS: Absolute Lymphocyte Count 1.77 X10^3/ul (0.83-4.51); Absolute Neutrophil Count 3.2 X10^3/uL (2.0-7.7); Basophil# 0.02 X10^3/uL; Basophil% 0.3 % (0-1); Eosinophil# 0.33 X10^3/uL; Eosinophils% 5.7 % (0-5); Hemoglobin 10.4 g/dl (13.0-16.5); Lymphocyte # 1.77 X10^3/ul (4.0); Lymphocyte % 30.8 % (19-41); Mean Corp Hgb Conc 31.5 g/gl (32-36); Mean Corpuscular Hgb 26.9 pg (27.0-32.0); Mean Corpuscular Volume 85.5 fL (80-94); Monocyte# 0.45 X10^3/uL; Monocyte% 7.8 % (0-10); Neutrophil # 3.16 X10^3/uL (2.7-7.7); Neutrophil % 55.2 % (47-70); POSITIVE COUNT NO; POSITIVE DIFFERENTIAL NO; POSITIVE MORPHOLOGY NO; Platelet Count 271 K/mm3 (150-450); RBC Distribution Width CV 14.8 % (11.6-14.6); RBC Distribution Width SD 46.2 fl (35.1-43.9); Red Blood Count 3.86 M/mm3 (4.6-6.2); White Blood Count 5.7 K/mm3 (4.4-11.0)
[2017-11-22 05:23] LABS: Anion Gap 9 (5-15); BUN 21 mg/dL (7-18); BUN/Creat Ratio 22.1 RATIO (10-20); Chloride 102 mmol/L (98-107); Creatinine, Serum 0.95 mg/dL (0.70-1.30); EST Glomerular Filtration Rate 85 mL/min (>60); Est Glom Filt Rate - Afr Amer 103 mL/min (>60); Glucose 132 mg/dL (74-106); Potassium 3.9 mmol/L (3.5-5.1); Sodium Level 142 mmol/L (136-145)
[2017-11-22 06:41] LABS: Bedside Glucose 124 mg/dL (70-110)
[2017-11-22] MEDS: Iron Polysaccharide Complex 150 MG CAPSULE PO (08:35)
[2017-11-22] MEDS: metFORMIN HCl 1,000 MG Tablet 1000 MG PO ×2 (08:35→18:11)
[2017-11-22] MEDS: Insulin Lispro 100 UNIT/ML INSULN.PEN 15 UNIT SC ×3 (08:35→18:11)
[2017-11-22] MEDS: Insulin NPH Human 100 UNITS/ML PEN 37 UNITS SC ×2 (10:08→21:29)
[2017-11-22 10:26] LABS: Bedside Glucose 135 mg/dL (70-110)
[2017-11-22 11:40] LABS: Bedside Glucose 110 mg/dL (70-110)
[2017-11-22] MEDS: Glucerna Shake 120 ML LIQUID PO ×3 (12:15→21:28)
[2017-11-22 16:00] VITALS: BP 163/78; PULSE 82; RESP 16; TEMP 36.9; O2SAT 100
[2017-11-22 17:01] LABS: Bedside Glucose 115 mg/dL (70-110)
[2017-11-22 20:50] LABS: Bedside Glucose 148 mg/dL (70-110)
[2017-11-22] MEDS: Atorvastatin Calcium 40 MG Tablet PO (21:19)
[2017-11-23] MEDS: 0.9% NaCl Peripheral Flush Adult/Peds IV ×4 (00:18→20:45)
[2017-11-23] MEDS: Piperacil/Tazobactam 3.375 GM/50 ML ML IV ×3 (04:17→20:37)
[2017-11-23] MEDS: Glucerna Shake 120 ML LIQUID PO ×4 (05:47→21:21)
[2017-11-23] MEDS: NYSTATIN 500,000 UNIT/5 ML UDC 500000 UNIT PO ×4 (05:47→21:19)
[2017-11-23] MEDS: buPROPion (XL) 150 MG TABLET.XL PO ×2 (05:48→17:15)
[2017-11-23] MEDS: Pantoprazole Sodium 20 MG Tablet PO ×2 (05:48→17:15)
[2017-11-23] MEDS: Losartan Potassium 100 MG Tablet PO (05:48)
[2017-11-23] MEDS: Triamterene 37.5MG/Hctz 25MG Capsule 1 CAP PO (05:48)
[2017-11-23] MEDS: FLUoxetine 20 MG Capsule 60 MG PO (05:49)
[2017-11-23] MEDS: Gabapentin 400 MG Capsule 800 MG PO ×4 (05:52→21:19)
[2017-11-23] MEDS: Enoxaparin 40 MG/0.4 ML Syringe SC (05:53)
[2017-11-23] MEDS: Mupirocin Ointment 22gm Tube 1 APPLIC TOPICAL (05:59)
[2017-11-23] MEDS: diazePAM 5 MG Tablet PO ×2 (06:23→21:23)
[2017-11-23] MEDS: oxyCODONE 5 MG Tablet 10 MG PO ×3 (06:24→21:23)
[2017-11-23 07:14] VITALS: RESP 18
[2017-11-23 07:26] LABS: Bedside Glucose 147 mg/dL (70-110)
[2017-11-23] MEDS: metFORMIN HCl 1,000 MG Tablet 1000 MG PO ×2 (08:19→17:15)
[2017-11-23] MEDS: Iron Polysaccharide Complex 150 MG CAPSULE PO (08:19)
[2017-11-23] MEDS: Insulin Lispro 100 UNIT/ML INSULN.PEN 15 UNIT SC ×3 (08:19→17:18)
[2017-11-23] MEDS: Insulin NPH Human 100 UNITS/ML PEN 37 UNITS SC ×2 (10:21→21:25)
[2017-11-23 11:11] LABS: Bedside Glucose 212 mg/dL (70-110)
[2017-11-23] MEDS: 0.9% NaCl IVPB Med Flush (250 mL) 15 ML IV ×2 (12:58→20:37)
[2017-11-23 15:21] VITALS: BP 137/73; PULSE 80; RESP 16; TEMP 36.6; O2SAT 96
[2017-11-23 17:15] LABS: Bedside Glucose 196 mg/dL (70-110)
[2017-11-23 21:16] LABS: Bedside Glucose 156 mg/dL (70-110)
[2017-11-23] MEDS: Atorvastatin Calcium 40 MG Tablet PO (21:19)
[2017-11-24] MEDS: Piperacil/Tazobactam 3.375 GM/50 ML ML IV ×3 (04:37→20:04)
[2017-11-24] MEDS: Glucerna Shake 120 ML LIQUID PO ×4 (04:37→21:15)
[2017-11-24] MEDS: oxyCODONE 5 MG Tablet 10 MG PO ×3 (04:37→21:14)
[2017-11-24] MEDS: NYSTATIN 500,000 UNIT/5 ML UDC 500000 UNIT PO ×4 (04:38→21:15)
[2017-11-24] MEDS: FLUoxetine 20 MG Capsule 60 MG PO (04:38)
[2017-11-24] MEDS: Enoxaparin 40 MG/0.4 ML Syringe SC (04:39)
[2017-11-24] MEDS: Gabapentin 400 MG Capsule 800 MG PO ×4 (04:39→21:15)
[2017-11-24] MEDS: Triamterene 37.5MG/Hctz 25MG Capsule 1 CAP PO (04:40)
[2017-11-24] MEDS: Pantoprazole Sodium 20 MG Tablet PO ×2 (04:40→17:55)
[2017-11-24] MEDS: Losartan Potassium 100 MG Tablet PO (04:40)
[2017-11-24] MEDS: buPROPion (XL) 150 MG TABLET.XL PO ×2 (04:40→17:55)
[2017-11-24] MEDS: 0.9% NaCl Peripheral Flush Adult/Peds IV ×5 (04:42→22:31)
[2017-11-24 05:34] LABS: Erythrocyte Sedimentation Rate 38 mm/hr (0-20)
[2017-11-24 06:30] LABS: Bedside Glucose 136 mg/dL (70-110)
[2017-11-24] MEDS: Iron Polysaccharide Complex 150 MG CAPSULE PO (08:13)
[2017-11-24] MEDS: metFORMIN HCl 1,000 MG Tablet 1000 MG PO ×2 (08:13→18:37)
[2017-11-24] MEDS: Insulin Lispro 100 UNIT/ML INSULN.PEN 15 UNIT SC ×3 (08:14→18:09)
[2017-11-24] MEDS: Insulin NPH Human 100 UNITS/ML PEN 37 UNITS SC ×2 (10:11→21:40)
[2017-11-24 10:21] LABS: Bedside Glucose 206 mg/dL (70-110)
[2017-11-24 11:16] LABS: Bedside Glucose 205 mg/dL (70-110)
[2017-11-24 13:30] LABS: Bedside Glucose 167 mg/dL (70-110)
[2017-11-24 15:16] VITALS: BP 152/79; PULSE 99; RESP 16; TEMP 36.4; O2SAT 97
[2017-11-24] MEDS: diazePAM 5 MG Tablet PO ×2 (15:43→21:14)
[2017-11-24 17:06] LABS: Bedside Glucose 90 mg/dL (70-110)
[2017-11-24] MEDS: 0.9% NaCl IVPB Med Flush (250 mL) 15 ML IV ×2 (20:04→22:33)
[2017-11-24] MEDS: proMETHazine 25 MG Tablet PO (21:14)
[2017-11-24] MEDS: Atorvastatin Calcium 40 MG Tablet PO (21:16)
[2017-11-24 21:21] LABS: Bedside Glucose 128 mg/dL (70-110)
[2017-11-25] MEDS: Piperacil/Tazobactam 3.375 GM/50 ML ML IV ×3 (04:12→20:58)
[2017-11-25] MEDS: 0.9% NaCl Peripheral Flush Adult/Peds IV ×3 (04:13→20:47)
[2017-11-25] MEDS: diazePAM 5 MG Tablet PO ×3 (06:05→20:57)
[2017-11-25] MEDS: oxyCODONE 5 MG Tablet 10 MG PO ×4 (06:06→20:57)
[2017-11-25] MEDS: NYSTATIN 500,000 UNIT/5 ML UDC 500000 UNIT PO ×4 (06:06→21:02)
[2017-11-25] MEDS: Pantoprazole Sodium 20 MG Tablet PO ×2 (06:06→17:52)
[2017-11-25] MEDS: Gabapentin 400 MG Capsule 800 MG PO ×4 (06:06→21:02)
[2017-11-25] MEDS: Glucerna Shake 120 ML LIQUID PO ×4 (06:07→21:15)
[2017-11-25] MEDS: Losartan Potassium 100 MG Tablet PO (06:07)
[2017-11-25] MEDS: Enoxaparin 40 MG/0.4 ML Syringe SC (06:07)
[2017-11-25] MEDS: Triamterene 37.5MG/Hctz 25MG Capsule 1 CAP PO (06:07)
[2017-11-25] MEDS: FLUoxetine 20 MG Capsule 60 MG PO (06:08)
[2017-11-25] MEDS: buPROPion (XL) 150 MG TABLET.XL PO ×2 (06:09→17:52)
[2017-11-25 07:01] LABS: Bedside Glucose 98 mg/dL (70-110)
[2017-11-25] MEDS: metFORMIN HCl 1,000 MG Tablet 1000 MG PO ×2 (08:40→17:52)
[2017-11-25] MEDS: Iron Polysaccharide Complex 150 MG CAPSULE PO (08:40)
[2017-11-25] MEDS: Insulin Lispro 100 UNIT/ML INSULN.PEN 15 UNIT SC ×3 (08:41→17:52)
[2017-11-25] MEDS: Acetaminophen 500 MG Tablet 1000 MG PO (08:47)
[2017-11-25 10:27] LABS: Vancomycin, Trough Level 18.8 ug/mL (5.0-15.0)
--- NOTE | 2017-11-25 10:56 | NURSING ---
Pharmacist reviewed Vanco trough, okay to hang 1000 dose.
[2017-11-25] MEDS: Insulin NPH Human 100 UNITS/ML PEN 37 UNITS SC ×2 (11:05→21:10)
[2017-11-25 11:11] LABS: Bedside Glucose 219 mg/dL (70-110)
--- NOTE | 2017-11-25 11:20 | PCM.RX.CS ---
Consult Pharmacy has been consulted to manage selected antiobiotic: Vancomycin Type of Consult: Follow-up Suspected Infection: Osteomyelitis Prior Doses of Antibiotics Received/Current Regimen: Vancomycin 2000mg IV q12h. Trough level drawn 11/25/17 at 0946, results were 18.8. Recommend keeping dose at Vancomycin 2000mg IV q12h and checking trough in 7 days, on the . Labs: Sodium 142 mmol/L (136-145) 11/22/17 04:45 Potassium 3.9 mmol/L (3.5-5.1) 11/22/17 04:45 Chloride 102 mmol/L (98-107) 11/22/17 04:45 Carbon Dioxide 31.0 mmol/L (21.0-32.0) 11/22/17 04:45 Anion Gap 9 (5-15) 11/22/17 04:45 BUN 21 mg/dL (7-18) H 11/22/17 04:45 Creatinine 0.95 mg/dL (0.70-1.30) 11/22/17 04:45 Est GFR (MDRD) Af Amer 103 mL/min (>60) 11/22/17 04:45 Est GFR (MDRD) Non-Af 85 mL/min (>60) 11/22/17 04:45 BUN/Creatinine Ratio 22.1 RATIO (10-20) H 11/22/17 04:45 Glucose 132 mg/dL (74-106) H 11/22/17 04:45 Vancomycin Trough 18.8 ug/mL (5.0-15.0) H 11/25/17 09:46 Goal Trough: 15-20 mcg/mL Pharmacy Plan for Drug Dosing: Pharmacy Service will continue to monitor and adjust dosing as required. Follow-Up Labs: Trough Vancomycin - 12/02/17 at 0930 Labs to be done on [date and time ordered]: trough level on 12/02/17 at 0930
--- NOTE | 2017-11-25 12:29 | CASEMGMT ---
Insurance Clinical information faxed. Pending continued stay approval at this time. Auth#[id number] Ester PEREZ, PRODUCTION AIDE
--- NOTE | 2017-11-25 14:20 | NURSING ---
ted aguila rn into change dressing to left stump
--- NOTE | 2017-11-25 14:22 | NURSING ---
wound photo: left stump
[2017-11-25 15:27] VITALS: BP 143/74; PULSE 88; RESP 16; TEMP 36.8; O2SAT 94
--- NOTE | 2017-11-25 16:24 | CASEMGMT ---
Insurance Continued stay approved with next update due on 12/01/17. Auth#[id number] Ester PEREZ, DIRECTOR MEDICAL
--- NOTE | 2017-11-25 16:24 | CHAPLAIN ---
Type of Pastoral Visit ___ Initial Visit _x__ Follow-up Visit ___ On-call Visit ___ General Patient Visit ___ Spiritual Assessment ___ Family Conference ___ Bereavement ___ Rapid Response ___ Code Blue ___ Other (describe below) Pastoral Care Referral From _x__ Patient ___ Family ___ Nurse ___ Physician ___ Nursing Director ___ Fire Hose Curer ___ Other (describe below) Sacrament/Intervention _x__ Active listening ___ Anointing ___ Congregation ___ Bereavement ___ Communion ___ Bridgett exploration ___ ___ Life review ___ Prayer ___ Reconciliation ___ Sacrament of Sick ___ Supportive presence ___ Wedding ___ Other (describe below) Pastoral Comments talked with patient and his friends out in activity room; pt gives me updates and is talkative
[2017-11-25 17:00] LABS: Bedside Glucose 109 mg/dL (70-110)
[2017-11-25] MEDS: 0.9% NaCl IVPB Med Flush (250 mL) 15 ML IV ×2 (20:48→21:15)
[2017-11-25] MEDS: Atorvastatin Calcium 40 MG Tablet PO (21:02)
[2017-11-25 21:11] LABS: Bedside Glucose 118 mg/dL (70-110)
[2017-11-26] MEDS: diazePAM 5 MG Tablet PO ×3 (02:45→22:28)
[2017-11-26] MEDS: oxyCODONE 5 MG Tablet 10 MG PO ×3 (02:45→22:29)
[2017-11-26] MEDS: Glucerna Shake 120 ML LIQUID PO ×4 (04:41→22:00)
[2017-11-26] MEDS: Piperacil/Tazobactam 3.375 GM/50 ML ML IV ×3 (04:41→20:04)
[2017-11-26] MEDS: Gabapentin 400 MG Capsule 800 MG PO ×4 (04:45→22:00)
[2017-11-26] MEDS: Triamterene 37.5MG/Hctz 25MG Capsule 1 CAP PO (04:45)
[2017-11-26] MEDS: buPROPion (XL) 150 MG TABLET.XL PO ×2 (04:45→17:49)
[2017-11-26] MEDS: Losartan Potassium 100 MG Tablet PO (04:45)
[2017-11-26] MEDS: NYSTATIN 500,000 UNIT/5 ML UDC 500000 UNIT PO ×4 (04:46→22:01)
[2017-11-26] MEDS: FLUoxetine 20 MG Capsule 60 MG PO (04:46)
[2017-11-26] MEDS: Pantoprazole Sodium 20 MG Tablet PO ×2 (04:46→17:48)
[2017-11-26] MEDS: Enoxaparin 40 MG/0.4 ML Syringe SC (04:47)
[2017-11-26] MEDS: 0.9% NaCl Peripheral Flush Adult/Peds IV ×4 (04:49→21:54)
[2017-11-26 06:56] LABS: Bedside Glucose 129 mg/dL (70-110)
[2017-11-26] MEDS: Iron Polysaccharide Complex 150 MG CAPSULE PO (08:07)
[2017-11-26] MEDS: Insulin Lispro 100 UNIT/ML INSULN.PEN 15 UNIT SC ×3 (08:07→17:51)
[2017-11-26] MEDS: metFORMIN HCl 1,000 MG Tablet 1000 MG PO ×2 (08:07→17:48)
[2017-11-26] MEDS: Insulin NPH Human 100 UNITS/ML PEN 37 UNITS SC ×2 (10:14→22:04)
[2017-11-26 11:01] LABS: Bedside Glucose 176 mg/dL (70-110)
[2017-11-26] MEDS: Acetaminophen 500 MG Tablet 1000 MG PO (13:18)
[2017-11-26 15:39] VITALS: BP 131/75; PULSE 76; RESP 14; TEMP 36.4; O2SAT 97
[2017-11-26 17:01] LABS: Bedside Glucose 111 mg/dL (70-110)
[2017-11-26] MEDS: 0.9% NaCl IVPB Med Flush (250 mL) 15 ML IV (20:03)
[2017-11-26 20:56] LABS: Bedside Glucose 115 mg/dL (70-110)
[2017-11-26] MEDS: Atorvastatin Calcium 40 MG Tablet PO (22:00)
[2017-11-27] MEDS: 0.9% NaCl Peripheral Flush Adult/Peds IV ×2 (04:55→21:31)
[2017-11-27] MEDS: Piperacil/Tazobactam 3.375 GM/50 ML ML IV ×3 (04:55→21:32)
[2017-11-27] MEDS: oxyCODONE 5 MG Tablet 10 MG PO ×2 (04:58→21:41)
[2017-11-27] MEDS: diazePAM 5 MG Tablet PO ×2 (04:59→21:41)
[2017-11-27] MEDS: buPROPion (XL) 150 MG TABLET.XL PO ×2 (05:03→17:04)
[2017-11-27] MEDS: NYSTATIN 500,000 UNIT/5 ML UDC 500000 UNIT PO ×4 (05:03→21:07)
[2017-11-27] MEDS: FLUoxetine 20 MG Capsule 60 MG PO (05:03)
[2017-11-27] MEDS: Glucerna Shake 120 ML LIQUID PO ×4 (05:03→21:06)
[2017-11-27] MEDS: Enoxaparin 40 MG/0.4 ML Syringe SC (05:03)
[2017-11-27] MEDS: Pantoprazole Sodium 20 MG Tablet PO ×2 (05:04→17:04)
[2017-11-27] MEDS: Triamterene 37.5MG/Hctz 25MG Capsule 1 CAP PO (05:04)
[2017-11-27] MEDS: Losartan Potassium 100 MG Tablet PO (05:04)
[2017-11-27] MEDS: Gabapentin 400 MG Capsule 800 MG PO ×4 (05:04→21:06)
[2017-11-27 07:11] LABS: Bedside Glucose 146 mg/dL (70-110)
[2017-11-27] MEDS: metFORMIN HCl 1,000 MG Tablet 1000 MG PO ×2 (08:41→17:04)
[2017-11-27] MEDS: Iron Polysaccharide Complex 150 MG CAPSULE PO (08:41)
[2017-11-27] MEDS: Insulin Lispro 100 UNIT/ML INSULN.PEN 15 UNIT SC ×3 (08:41→17:05)
[2017-11-27] MEDS: 0.9% NaCl PICC Flush IV ×2 (10:46→13:23)
[2017-11-27] MEDS: Insulin NPH Human 100 UNITS/ML PEN 37 UNITS SC ×2 (10:50→21:34)
[2017-11-27 11:05] LABS: Bedside Glucose 228 mg/dL (70-110)
--- NOTE | 2017-11-27 12:07 | NURSING ---
unable to flush purple lumen on picc, changed cap, had pt sit up/lay down, cough, & moved up diff positions w/no success. Dr Fernández notified, new order for cath ora x1. RN picking supervisor notified.
[2017-11-27] MEDS: Alteplase 2 MG/2 ML Vial IV (12:40)
--- NOTE | 2017-11-27 15:09 | NURSING ---
spoke with Otilia, wound nurse regarding suture removal date. She is waiting on Dr Rodriguez return from [facility] & will address it then.
[2017-11-27 15:44] VITALS: BP 142/62; PULSE 82; RESP 16; TEMP 36.9; O2SAT 97
[2017-11-27 17:15] LABS: Bedside Glucose 197 mg/dL (70-110)
[2017-11-27 20:56] LABS: Bedside Glucose 180 mg/dL (70-110)
[2017-11-27] MEDS: Atorvastatin Calcium 40 MG Tablet PO (21:06)
[2017-11-27 21:10] VITALS: PULSE 77; RESP 18
--- NOTE | 2017-11-27 21:30 | NURSING ---
Daughter called into unit with many concerns regarding pt's behavior. Daughter informed nurse, pt was unable to tell her what was wrong because pt was crying so much. Daughter stated, That's not my dad. He does not cry. Daughter feels pt has been very down since hospitalized. VM left with SW regarding daughter's concerns of pt's behavior. Will continue to monitor.
[2017-11-27] MEDS: 0.9% NaCl IVPB Med Flush (250 mL) 15 ML IV (21:32)
[2017-11-28] MEDS: Piperacil/Tazobactam 3.375 GM/50 ML ML IV ×3 (05:01→21:29)
[2017-11-28] MEDS: 0.9% NaCl Peripheral Flush Adult/Peds IV ×3 (05:02→21:33)
[2017-11-28] MEDS: Glucerna Shake 120 ML LIQUID PO ×4 (05:08→20:31)
[2017-11-28] MEDS: oxyCODONE 5 MG Tablet 10 MG PO ×2 (05:09→20:30)
[2017-11-28] MEDS: diazePAM 5 MG Tablet PO ×2 (05:09→20:30)
[2017-11-28] MEDS: buPROPion (XL) 150 MG TABLET.XL PO ×2 (05:10→18:07)
[2017-11-28] MEDS: FLUoxetine 20 MG Capsule 60 MG PO (05:10)
[2017-11-28] MEDS: Triamterene 37.5MG/Hctz 25MG Capsule 1 CAP PO (05:10)
[2017-11-28] MEDS: Losartan Potassium 100 MG Tablet PO (05:11)
[2017-11-28] MEDS: Pantoprazole Sodium 20 MG Tablet PO ×2 (05:11→18:06)
[2017-11-28] MEDS: Gabapentin 400 MG Capsule 800 MG PO ×4 (05:11→20:31)
[2017-11-28] MEDS: NYSTATIN 500,000 UNIT/5 ML UDC 500000 UNIT PO ×4 (05:14→20:31)
[2017-11-28] MEDS: Enoxaparin 40 MG/0.4 ML Syringe SC (05:15)
[2017-11-28 06:50] LABS: Bedside Glucose 141 mg/dL (70-110)
[2017-11-28] MEDS: Iron Polysaccharide Complex 150 MG CAPSULE PO (08:20)
[2017-11-28] MEDS: metFORMIN HCl 1,000 MG Tablet 1000 MG PO ×2 (08:20→18:06)
[2017-11-28] MEDS: Insulin Lispro 100 UNIT/ML INSULN.PEN 15 UNIT SC ×3 (08:20→18:09)
[2017-11-28 10:00] VITALS: PULSE 97; RESP 18; O2SAT 94
[2017-11-28] MEDS: 0.9% NaCl PICC Flush IV ×2 (10:25→21:33)
[2017-11-28] MEDS: Insulin NPH Human 100 UNITS/ML PEN 37 UNITS SC ×2 (10:29→22:03)
[2017-11-28 11:46] LABS: Bedside Glucose 166 mg/dL (70-110)
[2017-11-28] MEDS: 0.9% NaCl IVPB Med Flush (250 mL) 15 ML IV ×2 (11:55→21:33)
--- NOTE | 2017-11-28 13:04 | CASEMGMT ---
Social Work Referral from nursing: Nursing reporting that resident daughter has called in and is requesting for resident to be set up with counseling or to have a psychiatrist evaluate resident. Spoke with resident in room. This secondary social studies teacher broached topic of counseling or a support group for resident. Resident reporting to not be opening to these things are this time and to only have down days when resident knows no one is coming to visit resident on a certain day. This secondary social studies teacher wondering if resident could notify staff/social work when resident does not have visitors coming that this secondary social studies teacher can come and have 1:1 counseling with resident on those day, resident agreeable to this plan. Resident is currently utilizing Prozac to manage anxiety as well. Support given to resident. Telephone call to resident daughter to communicate that this secondary social studies teacher did meet with resident and will continue to follow up with resident throughout stay. Will continue to follow as needed. Ester ROSENBAUMW, DRY FINISHER
[2017-11-28 15:30] VITALS: BP 138/70; PULSE 78; RESP 16; TEMP 36.4; O2SAT 95
[2017-11-28 16:52] LABS: Bedside Glucose 125 mg/dL (70-110)
[2017-11-28] MEDS: Senna/Docusate Sodium 1 Tablet 2 TABLET PO (18:06)
[2017-11-28] MEDS: Atorvastatin Calcium 40 MG Tablet PO (20:32)
--- NOTE | 2017-11-28 20:51 | NURSING ---
No dressing or CONCHIS wrap present to left stump, pt states I've been asking all day for someone to do something. 1:1 effective at redirecting and calming pt down. Left stump cleansed and dressed per orders. Pt pleased by this. Also given prn meds pt asking for at this time. Repositioned for comfort. RN aware, continuing to monitor.
[2017-11-28] MEDS: proMETHazine 25 MG Tablet PO (20:52)
[2017-11-28 21:26] LABS: Bedside Glucose 154 mg/dL (70-110)
[2017-11-29] MEDS: diazePAM 5 MG Tablet PO ×3 (02:46→20:55)
[2017-11-29] MEDS: oxyCODONE 5 MG Tablet 10 MG PO ×4 (02:46→20:54)
[2017-11-29] MEDS: Piperacil/Tazobactam 3.375 GM/50 ML ML IV ×3 (04:54→20:43)
[2017-11-29] MEDS: 0.9% NaCl Peripheral Flush Adult/Peds IV ×4 (04:54→20:48)
[2017-11-29] MEDS: Gabapentin 400 MG Capsule 800 MG PO ×4 (06:07→20:56)
[2017-11-29] MEDS: NYSTATIN 500,000 UNIT/5 ML UDC 500000 UNIT PO ×4 (06:07→21:01)
[2017-11-29] MEDS: Losartan Potassium 100 MG Tablet PO (06:08)
[2017-11-29] MEDS: Pantoprazole Sodium 20 MG Tablet PO ×2 (06:08→17:24)
[2017-11-29] MEDS: Triamterene 37.5MG/Hctz 25MG Capsule 1 CAP PO (06:08)
[2017-11-29] MEDS: Glucerna Shake 120 ML LIQUID PO ×4 (06:08→20:48)
[2017-11-29] MEDS: buPROPion (XL) 150 MG TABLET.XL PO ×2 (06:08→17:24)
[2017-11-29] MEDS: FLUoxetine 20 MG Capsule 60 MG PO (06:09)
[2017-11-29] MEDS: Enoxaparin 40 MG/0.4 ML Syringe SC (06:09)
[2017-11-29] MEDS: proMETHazine 25 MG Tablet PO (06:48)
[2017-11-29 07:11] LABS: Bedside Glucose 136 mg/dL (70-110)
[2017-11-29] MEDS: Iron Polysaccharide Complex 150 MG CAPSULE PO (08:16)
[2017-11-29] MEDS: metFORMIN HCl 1,000 MG Tablet 1000 MG PO ×2 (08:16→17:24)
[2017-11-29] MEDS: Insulin Lispro 100 UNIT/ML INSULN.PEN 15 UNIT SC ×3 (08:16→17:24)
--- NOTE | 2017-11-29 09:55 | NURSING ---
PT STATED TO THIS NURSE THAT HE FEELS LIKE HE IS IN A DEEP HOLE AND CANT GET OUT OF IT. LIKE YOUR UNDER WATER AND CAN SEE THE LIGHT BUT CANT GET TO THE SURFACE. ALSO STATED HIS FAMILY NOT COMING TO SEE HIM AND A FEW BAND MEMBERS ALSO HAVE GOTTEN SICK. TALKED TO PT FOR A WHILE AND ASKED IF THERE WAS SOME WAY I COULD HELP HIM. PT STATED NO. REPORTED TO MARY RUFF
[2017-11-29 10:51] LABS: Bedside Glucose 220 mg/dL (70-110)
[2017-11-29] MEDS: Insulin NPH Human 100 UNITS/ML PEN 37 UNITS SC ×2 (11:47→21:49)
--- NOTE | 2017-11-29 13:15 | NURSING ---
DOUBLE LUMAN, BOTH FLUSHED AND GOOD BLOOD RETURN. NO S/S OF INFECTION OR REDNESS. PT TOLERATED WELL.
[2017-11-29 15:53] VITALS: BP 122/71; PULSE 82; RESP 16; TEMP 36.1; O2SAT 94
[2017-11-29 17:00] LABS: Bedside Glucose 178 mg/dL (70-110)
[2017-11-29] MEDS: Senna/Docusate Sodium 1 Tablet 2 TABLET PO (17:24)
[2017-11-29] MEDS: 0.9% NaCl IVPB Med Flush (250 mL) 15 ML IV (20:43)
[2017-11-29 20:50] VITALS: PULSE 80; RESP 18; O2SAT 94
[2017-11-29] MEDS: Atorvastatin Calcium 40 MG Tablet PO (20:56)
[2017-11-29 21:16] LABS: Bedside Glucose 125 mg/dL (70-110)
[2017-11-30] MEDS: oxyCODONE 5 MG Tablet 10 MG PO ×2 (03:51→21:08)
[2017-11-30] MEDS: diazePAM 5 MG Tablet PO ×2 (03:54→21:08)
[2017-11-30] MEDS: 0.9% NaCl Peripheral Flush Adult/Peds IV ×3 (04:00→21:09)
[2017-11-30] MEDS: Piperacil/Tazobactam 3.375 GM/50 ML ML IV ×3 (04:01→21:04)
[2017-11-30] MEDS: Pantoprazole Sodium 20 MG Tablet PO ×2 (04:05→04:06)
[2017-11-30] MEDS: buPROPion (XL) 150 MG TABLET.XL PO ×2 (04:05→18:06)
[2017-11-30] MEDS: Triamterene 37.5MG/Hctz 25MG Capsule 1 CAP PO (04:05)
[2017-11-30] MEDS: FLUoxetine 20 MG Capsule 60 MG PO (04:05)
[2017-11-30] MEDS: Enoxaparin 40 MG/0.4 ML Syringe SC (04:06)
[2017-11-30] MEDS: Gabapentin 400 MG Capsule 800 MG PO ×4 (04:06→21:09)
[2017-11-30] MEDS: Losartan Potassium 100 MG Tablet PO (04:06)
[2017-11-30] MEDS: NYSTATIN 500,000 UNIT/5 ML UDC 500000 UNIT PO ×4 (04:08→21:10)
[2017-11-30 07:06] LABS: Bedside Glucose 103 mg/dL (70-110)
[2017-11-30] MEDS: Iron Polysaccharide Complex 150 MG CAPSULE PO (08:03)
[2017-11-30] MEDS: metFORMIN HCl 1,000 MG Tablet 1000 MG PO ×2 (08:04→18:05)
[2017-11-30] MEDS: Insulin Lispro 100 UNIT/ML INSULN.PEN 15 UNIT SC ×3 (08:04→18:12)
[2017-11-30] MEDS: Insulin NPH Human 100 UNITS/ML PEN 37 UNITS SC ×2 (10:39→21:16)
[2017-11-30 10:46] LABS: Bedside Glucose 163 mg/dL (70-110)
[2017-11-30] MEDS: Glucerna Shake 120 ML LIQUID PO ×3 (12:12→21:10)
[2017-11-30 13:00] VITALS: PULSE 76; RESP 18; O2SAT 97
[2017-11-30 16:00] VITALS: BP 127/55; PULSE 86; RESP 16; TEMP 36.8; O2SAT 95
--- NOTE | 2017-11-30 16:01 | NURSING ---
DOUBLE LUMEN FLUSHED,GOOD BLOOD RETURN. NO S/S OF INFECTION. PT TOLERATED WELL.
[2017-11-30 17:10] LABS: Bedside Glucose 178 mg/dL (70-110)
[2017-11-30] MEDS: Atorvastatin Calcium 40 MG Tablet PO (21:09)
[2017-11-30] MEDS: 0.9% NaCl IVPB Med Flush (250 mL) 15 ML IV (21:09)
[2017-11-30 21:21] LABS: Bedside Glucose 142 mg/dL (70-110)
[2017-12-01] MEDS: oxyCODONE 5 MG Tablet 10 MG PO ×2 (03:53→23:04)
[2017-12-01] MEDS: Glucerna Shake 120 ML LIQUID PO ×3 (03:53→20:11)
[2017-12-01] MEDS: diazePAM 5 MG Tablet PO ×2 (03:53→23:05)
[2017-12-01] MEDS: Piperacil/Tazobactam 3.375 GM/50 ML ML IV ×3 (03:53→20:00)
[2017-12-01] MEDS: Losartan Potassium 100 MG Tablet PO (03:56)
[2017-12-01] MEDS: FLUoxetine 20 MG Capsule 60 MG PO (03:56)
[2017-12-01] MEDS: Enoxaparin 40 MG/0.4 ML Syringe SC (03:56)
[2017-12-01] MEDS: Triamterene 37.5MG/Hctz 25MG Capsule 1 CAP PO (03:56)
[2017-12-01] MEDS: Pantoprazole Sodium 20 MG Tablet PO ×2 (03:56→18:08)
[2017-12-01] MEDS: buPROPion (XL) 150 MG TABLET.XL PO ×2 (03:56→18:09)
[2017-12-01] MEDS: NYSTATIN 500,000 UNIT/5 ML UDC 500000 UNIT PO ×4 (03:57→20:12)
[2017-12-01] MEDS: Gabapentin 400 MG Capsule 800 MG PO ×4 (03:57→20:10)
[2017-12-01 07:11] LABS: Bedside Glucose 101 mg/dL (70-110)
[2017-12-01] MEDS: Iron Polysaccharide Complex 150 MG CAPSULE PO (09:00)
[2017-12-01] MEDS: metFORMIN HCl 1,000 MG Tablet 1000 MG PO ×2 (09:00→18:06)
[2017-12-01] MEDS: Insulin Lispro 100 UNIT/ML INSULN.PEN 15 UNIT SC ×2 (09:01→18:07)
[2017-12-01 10:00] VITALS: PULSE 94; RESP 18; O2SAT 97
[2017-12-01] MEDS: 0.9% NaCl Peripheral Flush Adult/Peds IV (11:06)
[2017-12-01] MEDS: Insulin NPH Human 100 UNITS/ML PEN 37 UNITS SC ×2 (11:15→23:07)
[2017-12-01 11:20] LABS: Bedside Glucose 200 mg/dL (70-110)
--- NOTE | 2017-12-01 12:14 | CASEMGMT ---
Insurance Clinical information faxed. Pending continued stay approval at this time. Auth#[id number] Ester PEREZ, OFFSET PRESS OPERATOR APPRENTICE
--- NOTE | 2017-12-01 14:01 | NURSING ---
wound photo: left stump
[2017-12-01 15:44] VITALS: BP 131/66; PULSE 80; RESP 14; TEMP 36.7; O2SAT 97
[2017-12-01 16:55] LABS: Bedside Glucose 131 mg/dL (70-110)
[2017-12-01] MEDS: 0.9% NaCl IVPB Med Flush (250 mL) 15 ML IV (20:00)
[2017-12-01] MEDS: Atorvastatin Calcium 40 MG Tablet PO (20:10)
[2017-12-01 21:21] LABS: Bedside Glucose 158 mg/dL (70-110)
[2017-12-02] MEDS: diazePAM 5 MG Tablet PO ×2 (04:27→19:57)
[2017-12-02] MEDS: Glucerna Shake 120 ML LIQUID PO ×4 (04:27→19:50)
[2017-12-02] MEDS: oxyCODONE 5 MG Tablet 10 MG PO ×2 (04:28→19:57)
[2017-12-02] MEDS: Pantoprazole Sodium 20 MG Tablet PO ×2 (04:28→17:27)
[2017-12-02] MEDS: buPROPion (XL) 150 MG TABLET.XL PO ×2 (04:28→17:27)
[2017-12-02] MEDS: Triamterene 37.5MG/Hctz 25MG Capsule 1 CAP PO (04:28)
[2017-12-02] MEDS: Losartan Potassium 100 MG Tablet PO (04:28)
[2017-12-02] MEDS: Gabapentin 400 MG Capsule 800 MG PO ×4 (04:29→19:56)
[2017-12-02] MEDS: FLUoxetine 20 MG Capsule 60 MG PO (04:29)
[2017-12-02] MEDS: Enoxaparin 40 MG/0.4 ML Syringe SC (04:30)
[2017-12-02] MEDS: NYSTATIN 500,000 UNIT/5 ML UDC 500000 UNIT PO ×4 (04:31→19:56)
[2017-12-02] MEDS: Piperacil/Tazobactam 3.375 GM/50 ML ML IV ×3 (04:32→19:51)
[2017-12-02 06:55] LABS: Bedside Glucose 104 mg/dL (70-110)
[2017-12-02] MEDS: Iron Polysaccharide Complex 150 MG CAPSULE PO (08:44)
[2017-12-02] MEDS: metFORMIN HCl 1,000 MG Tablet 1000 MG PO ×2 (08:44→17:27)
[2017-12-02] MEDS: Insulin Lispro 100 UNIT/ML INSULN.PEN 15 UNIT SC ×2 (08:44→12:11)
[2017-12-02] MEDS: Insulin NPH Human 100 UNITS/ML PEN 37 UNITS SC ×2 (10:08→23:02)
[2017-12-02] MEDS: 0.9% NaCl Peripheral Flush Adult/Peds IV ×3 (10:10→19:50)
--- NOTE | 2017-12-02 11:10 | PCM.RX.CS ---
Consult Pharmacy has been consulted to manage selected antiobiotic: Vancomycin Type of Consult: Follow-up Suspected Infection: Osteomyelitis Prior Doses of Antibiotics Received/Current Regimen: Vancomycin 2000mg IV q12h. Labs: Sodium 142 mmol/L (136-145) 11/22/17 04:45 Potassium 3.9 mmol/L (3.5-5.1) 11/22/17 04:45 Chloride 102 mmol/L (98-107) 11/22/17 04:45 Carbon Dioxide 31.0 mmol/L (21.0-32.0) 11/22/17 04:45 Anion Gap 9 (5-15) 11/22/17 04:45 BUN 21 mg/dL (7-18) H 11/22/17 04:45 Creatinine 0.95 mg/dL (0.70-1.30) 11/22/17 04:45 Est GFR (MDRD) Af Amer 103 mL/min (>60) 11/22/17 04:45 Est GFR (MDRD) Non-Af 85 mL/min (>60) 11/22/17 04:45 BUN/Creatinine Ratio 22.1 RATIO (10-20) H 11/22/17 04:45 Glucose 132 mg/dL (74-106) H 11/22/17 04:45 Vancomycin Trough 18.0 ug/mL (5.0-15.0) H 12/02/17 09:33 Goal Trough: 15-20 mcg/mL Pharmacy Plan for Drug Dosing: Recommend continuing current dose of Vancomycin 2000mg IV q12h due to trough level of 18.0. Re-check trough level in 7 days on 12/09/17 at 0930. Pharmacy Service will continue to monitor and adjust dosing as required. Follow-Up Labs: Trough Vancomycin Labs to be done on [date and time ordered]: vancomycin trough on 12/09/17 at 0930
[2017-12-02] MEDS: 0.9% NaCl PICC Flush IV (11:44)
[2017-12-02 11:50] LABS: Bedside Glucose 105 mg/dL (70-110)
[2017-12-02 12:01] LABS: Erythrocyte Sedimentation Rate 28 mm/hr (0-20)
[2017-12-02 12:06] LABS: Absolute Lymphocyte Count 1.77 X10^3/ul (0.83-4.51); Basophil# 0.03 X10^3/uL; Basophil% 0.4 % (0-1); Eosinophil# 0.47 X10^3/uL; Eosinophils% 6.8 % (0-5); Hematocrit 37.2 % (40-54); Hemoglobin 11.8 g/dl (13.0-16.5); Lymphocyte # 1.77 X10^3/ul (4.0); Lymphocyte % 25.6 % (19-41); Mean Corp Hgb Conc 31.7 g/gl (32-36); Mean Corpuscular Hgb 27.3 pg (27.0-32.0); Mean Corpuscular Volume 86.1 fL (80-94); Mean Platelet Vol. 9.6 fl (6.2-12.0); Monocyte# 0.63 X10^3/uL; Monocyte% 9.1 % (0-10); Platelet Count 239 K/mm3 (150-450); RBC Distribution Width CV 15.1 % (11.6-14.6); RBC Distribution Width SD 46.8 fl (35.1-43.9); Red Blood Count 4.32 M/mm3 (4.6-6.2); White Blood Count 6.9 K/mm3 (4.4-11.0)
[2017-12-02 12:12] LABS: Anion Gap 6 (5-15); BUN 22 mg/dL (7-18); BUN/Creat Ratio 20.2 RATIO (10-20); CRP 6.04 mg/L (0.0-3.0); Calcium,Total 9.4 mg/dL (8.5-10.1); Chloride 104 mmol/L (98-107); Creatinine, Serum 1.09 mg/dL (0.70-1.30); EST Glomerular Filtration Rate 73 mL/min (>60); Est Glom Filt Rate - Afr Amer 88 mL/min (>60); Estimated Creatinine Clearance 85.06 ml/min; Glucose 95 mg/dL (74-106); Potassium 4.2 mmol/L (3.5-5.1); Sodium Level 139 mmol/L (136-145)
[2017-12-02 12:27] LABS: POSITIVE COUNT NO; POSITIVE DIFFERENTIAL NO; POSITIVE MORPHOLOGY NO
--- NOTE | 2017-12-02 13:55 | CASEMGMT ---
Insurance Continued stay approved with next update due on 12/08/17. Auth#[id number] Ester PEREZ, CAR WASH ATTENDANT AUTOMATIC
--- NOTE | 2017-12-02 15:23 | CHAPLAIN ---
Type of Pastoral Visit ___ Initial Visit _x__ Follow-up Visit ___ On-call Visit ___ General Patient Visit ___ Spiritual Assessment ___ Family Conference ___ Bereavement ___ Rapid Response ___ Code Blue ___ Other (describe below) Pastoral Care Referral From _x__ Patient ___ Family ___ Nurse ___ Physician ___ Actuarial Consultant ___ Director Product Development ___ Other (describe below) Sacrament/Intervention _x__ Active listening ___ Anointing ___ Nondenominational ___ Bereavement ___ Communion ___ Bridgett exploration ___ ___ Life review ___ Prayer ___ Reconciliation ___ Sacrament of Sick ___ Supportive presence ___ Wedding ___ Other (describe below) Pastoral Comments interaction with patient as he was in the activity area playing games with his friends; pt is upbeat; pt tells of his cooking experience today in OT
[2017-12-02 16:00] VITALS: BP 117/77; PULSE 86; RESP 16; TEMP 37.2; O2SAT 95
[2017-12-02 17:10] LABS: Bedside Glucose 100 mg/dL (70-110)
--- NOTE | 2017-12-02 18:18 | NURSING ---
MARÍA ELENA EDGE FLUDASHA, DR DAVIS NOTIFIED, NEW ORDER FOR CATHFLO. RN AIRPORT DUTY MANAGER NOTIFIED.
--- NOTE | 2017-12-02 18:19 | NURSING ---
PT BLOOD SUGAR 100 TONIGHT, NEW ORDER TO HOLD HUMALOG TONIGHT.
[2017-12-02] MEDS: 0.9% NaCl IVPB Med Flush (250 mL) 15 ML IV (19:51)
[2017-12-02] MEDS: Atorvastatin Calcium 40 MG Tablet PO (19:56)
[2017-12-02 21:21] LABS: Bedside Glucose 163 mg/dL (70-110)
[2017-12-02] MEDS: Alteplase 2 MG/2 ML Vial IV (22:01)
[2017-12-02 23:04] VITALS: PULSE 78; RESP 16; O2SAT 95
--- NOTE | 2017-12-03 00:11 | ED.RN ---
ground wood supervisor Rizwana Lindsay administered cathflo to red lumen during this shift. Rizwana Cortes administered heparin in the purple lumen. This nurse will reassess the lumens in the morning.
[2017-12-03] MEDS: oxyCODONE 5 MG Tablet 10 MG PO ×2 (04:30→19:59)
[2017-12-03] MEDS: Piperacil/Tazobactam 3.375 GM/50 ML ML IV ×3 (04:30→20:40)
[2017-12-03] MEDS: diazePAM 5 MG Tablet PO ×2 (04:30→19:59)
[2017-12-03] MEDS: Glucerna Shake 120 ML LIQUID PO ×4 (04:30→19:57)
[2017-12-03] MEDS: Pantoprazole Sodium 20 MG Tablet PO ×2 (04:35→17:51)
[2017-12-03] MEDS: Triamterene 37.5MG/Hctz 25MG Capsule 1 CAP PO (04:35)
[2017-12-03] MEDS: FLUoxetine 20 MG Capsule 60 MG PO (04:35)
[2017-12-03] MEDS: buPROPion (XL) 150 MG TABLET.XL PO ×2 (04:35→17:51)
[2017-12-03] MEDS: Losartan Potassium 100 MG Tablet PO (04:35)
[2017-12-03] MEDS: Gabapentin 400 MG Capsule 800 MG PO ×4 (04:35→20:01)
[2017-12-03] MEDS: NYSTATIN 500,000 UNIT/5 ML UDC 500000 UNIT PO ×4 (04:37→20:01)
[2017-12-03] MEDS: Enoxaparin 40 MG/0.4 ML Syringe SC (04:37)
[2017-12-03] MEDS: 0.9% NaCl Peripheral Flush Adult/Peds IV ×3 (04:40→20:41)
[2017-12-03 06:41] LABS: Bedside Glucose 170 mg/dL (70-110)
[2017-12-03] MEDS: Iron Polysaccharide Complex 150 MG CAPSULE PO (09:14)
[2017-12-03] MEDS: metFORMIN HCl 1,000 MG Tablet 1000 MG PO ×2 (09:14→17:52)
[2017-12-03] MEDS: Insulin Lispro 100 UNIT/ML INSULN.PEN 15 UNIT SC ×3 (09:15→17:50)
[2017-12-03] MEDS: Insulin NPH Human 100 UNITS/ML PEN 37 UNITS SC ×2 (10:29→22:01)
[2017-12-03 11:41] LABS: Bedside Glucose 172 mg/dL (70-110)
[2017-12-03 13:50] LABS: Bedside Glucose 157 mg/dL (70-110)
[2017-12-03 15:50] VITALS: BP 133/67; PULSE 85; RESP 16; TEMP 36.8; O2SAT 96
[2017-12-03 16:51] LABS: Bedside Glucose 124 mg/dL (70-110)
[2017-12-03] MEDS: Senna/Docusate Sodium 1 Tablet 2 TABLET PO (17:51)
[2017-12-03] MEDS: Atorvastatin Calcium 40 MG Tablet PO (20:01)
[2017-12-03 20:11] VITALS: PULSE 78; RESP 20; O2SAT 96
[2017-12-03] MEDS: 0.9% NaCl IVPB Med Flush (250 mL) 15 ML IV (20:41)
[2017-12-03 20:56] LABS: Bedside Glucose 198 mg/dL (70-110)
[2017-12-03] MEDS: proMETHazine 25 MG Tablet PO (22:04)
[2017-12-04] MEDS: oxyCODONE 5 MG Tablet 10 MG PO ×3 (00:06→21:33)
[2017-12-04] MEDS: Piperacil/Tazobactam 3.375 GM/50 ML ML IV ×3 (04:47→20:36)
[2017-12-04] MEDS: diazePAM 5 MG Tablet PO ×2 (05:00→21:33)
[2017-12-04] MEDS: Losartan Potassium 100 MG Tablet PO (05:00)
[2017-12-04] MEDS: FLUoxetine 20 MG Capsule 60 MG PO (05:00)
[2017-12-04] MEDS: Pantoprazole Sodium 20 MG Tablet PO ×2 (05:00→18:02)
[2017-12-04] MEDS: Glucerna Shake 120 ML LIQUID PO ×4 (05:00→21:19)
[2017-12-04] MEDS: Triamterene 37.5MG/Hctz 25MG Capsule 1 CAP PO (05:00)
[2017-12-04] MEDS: Enoxaparin 40 MG/0.4 ML Syringe SC (05:01)
[2017-12-04] MEDS: buPROPion (XL) 150 MG TABLET.XL PO ×2 (05:01→18:02)
[2017-12-04] MEDS: Gabapentin 400 MG Capsule 800 MG PO ×4 (05:02→21:24)
[2017-12-04] MEDS: NYSTATIN 500,000 UNIT/5 ML UDC 500000 UNIT PO ×4 (05:02→21:23)
[2017-12-04] MEDS: proMETHazine 25 MG Tablet PO (05:41)
[2017-12-04 06:40] LABS: Bedside Glucose 148 mg/dL (70-110)
--- NOTE | 2017-12-04 07:18 | NURSING ---
Dressing to stump changed per orders, while in room pt c/o sore throat. No visual redness or abnormality noted. Temp 97.9 oral. Pt had general complaints during the night, did not feel well. Assured pt this would be passed to oncoming shift. RN aware, continuing to monitor.
[2017-12-04] MEDS: metFORMIN HCl 1,000 MG Tablet 1000 MG PO ×2 (09:30→17:52)
[2017-12-04] MEDS: Iron Polysaccharide Complex 150 MG CAPSULE PO (09:30)
[2017-12-04] MEDS: Insulin Lispro 100 UNIT/ML INSULN.PEN 15 UNIT SC ×3 (09:30→17:54)
[2017-12-04 10:00] VITALS: PULSE 72; RESP 18; O2SAT 94
[2017-12-04 11:31] LABS: Bedside Glucose 238 mg/dL (70-110)
[2017-12-04] MEDS: 0.9% NaCl Peripheral Flush Adult/Peds IV ×3 (11:31→21:29)
[2017-12-04] MEDS: 0.9% NaCl IVPB Med Flush (250 mL) 15 ML IV ×2 (11:31→20:36)
[2017-12-04] MEDS: Insulin NPH Human 100 UNITS/ML PEN 37 UNITS SC ×2 (11:36→21:22)
[2017-12-04 15:42] VITALS: BP 161/81; PULSE 95; RESP 16; TEMP 36.7; O2SAT 98
[2017-12-04 17:01] LABS: Bedside Glucose 171 mg/dL (70-110)
[2017-12-04] MEDS: Atorvastatin Calcium 40 MG Tablet PO (21:23)
[2017-12-04 21:26] LABS: Bedside Glucose 209 mg/dL (70-110)
[2017-12-05] MEDS: oxyCODONE 5 MG Tablet 10 MG PO (04:18)
[2017-12-05] MEDS: Triamterene 37.5MG/Hctz 25MG Capsule 1 CAP PO (04:19)
[2017-12-05] MEDS: Losartan Potassium 100 MG Tablet PO (04:19)
[2017-12-05] MEDS: FLUoxetine 20 MG Capsule 60 MG PO (04:19)
[2017-12-05] MEDS: Gabapentin 400 MG Capsule 800 MG PO ×4 (04:19→21:28)
[2017-12-05] MEDS: Pantoprazole Sodium 20 MG Tablet PO ×2 (04:19→18:12)
[2017-12-05] MEDS: NYSTATIN 500,000 UNIT/5 ML UDC 500000 UNIT PO ×4 (04:20→21:32)
[2017-12-05] MEDS: Glucerna Shake 120 ML LIQUID PO ×4 (04:20→21:37)
[2017-12-05] MEDS: buPROPion (XL) 150 MG TABLET.XL PO ×2 (04:20→18:13)
[2017-12-05] MEDS: Piperacil/Tazobactam 3.375 GM/50 ML ML IV ×3 (04:50→20:25)
[2017-12-05] MEDS: 0.9% NaCl Peripheral Flush Adult/Peds IV ×3 (05:09→13:51)
[2017-12-05] MEDS: Enoxaparin 40 MG/0.4 ML Syringe SC (05:18)
[2017-12-05 07:06] LABS: Bedside Glucose 155 mg/dL (70-110)
[2017-12-05] MEDS: Insulin Lispro 100 UNIT/ML INSULN.PEN 15 UNIT SC ×3 (08:27→18:15)
[2017-12-05] MEDS: metFORMIN HCl 1,000 MG Tablet 1000 MG PO ×2 (08:28→18:11)
[2017-12-05] MEDS: Iron Polysaccharide Complex 150 MG CAPSULE PO (08:29)
[2017-12-05] MEDS: 0.9% NaCl IVPB Med Flush (250 mL) 15 ML IV ×2 (10:38→20:25)
[2017-12-05] MEDS: Insulin NPH Human 100 UNITS/ML PEN 37 UNITS SC ×2 (10:40→21:31)
[2017-12-05 11:50] LABS: Bedside Glucose 152 mg/dL (70-110)
--- NOTE | 2017-12-05 16:05 | PCM.PN.ID ---
Subjective: Feeling well, no fever, no n/v/d, no issues with picc - Physical Exam General: Alert, Cooperative, No apparent distress Lungs: Clear to auscultation, Normal air movement Cardiovascular: Regular rate, Regular Rhythm Abdomen: Soft, Non Tender, Non-Distended Skin: Incision - leg wrapped, reviewed photo of L BKA stump Vital Signs Temp Pulse Resp BP Pulse Ox 98.0 F 95 16 161/81 H 98 12/04/17 15:42 12/04/17 15:42 12/04/17 15:42 12/04/17 15:42 12/04/17 15:42 Oxygen Delivery Method Room Air Weight: 131.202 kg Body Mass Index (BMI) 34.9 Finger Stick Blood Glucose 168 Intake and Output for Last 24 Hours 12/03/17 12/04/17 12/05/17 23:59 23:59 23:59 Intake Total 1620 / 1620 1500 / 1500 1400 / 1400 Output Total 1500 / 1500 1700 / 1700 Balance 120 / 120 -200 / -200 1400 / 1400 POC Glucose 12/05/17 12/05/17 12/04/17 11:47 06:56 21:09 POC Glucose 152 H 155 H 209 H 12/04/17 16:52 POC Glucose 171 H Medical Necessity - Tobacco Use Smoking Status: Former smoker Tobacco Use: Non-smoker Route of nutrition/ use of supplements: [] Nutritional Intake: [] IV Site: [] Tam Catheter: [] - Assessment/Plan Antibiotics: [] Assessment/Plan: [] LLE osteomyelitis of BKA site, most recent surg cx with enterobacter. Improving on iv vanc and zosyn. Picc in place. Stop date 12/16/17, weekly bmp, cbc, vanc trough, and esr. Will follow, d/w wound care nurse.
[2017-12-05 17:00] LABS: Bedside Glucose 113 mg/dL (70-110)
[2017-12-05] MEDS: 0.9% NaCl PICC Flush IV (20:25)
[2017-12-05 21:16] LABS: Bedside Glucose 131 mg/dL (70-110)
[2017-12-05] MEDS: Atorvastatin Calcium 40 MG Tablet PO (21:29)
[2017-12-05 21:30] VITALS: PULSE 66; RESP 16; O2SAT 99
[2017-12-06] MEDS: oxyCODONE 5 MG Tablet 10 MG PO (03:15)
[2017-12-06] MEDS: diazePAM 5 MG Tablet PO (03:19)
[2017-12-06] MEDS: Piperacil/Tazobactam 3.375 GM/50 ML ML IV ×3 (04:22→19:58)
[2017-12-06] MEDS: 0.9% NaCl PICC Flush IV (04:23)
[2017-12-06] MEDS: Losartan Potassium 100 MG Tablet PO (05:44)
[2017-12-06] MEDS: NYSTATIN 500,000 UNIT/5 ML UDC 500000 UNIT PO ×4 (05:44→20:07)
[2017-12-06] MEDS: Gabapentin 400 MG Capsule 800 MG PO ×4 (05:44→20:07)
[2017-12-06] MEDS: FLUoxetine 20 MG Capsule 60 MG PO (05:44)
[2017-12-06] MEDS: Pantoprazole Sodium 20 MG Tablet PO ×2 (05:44→17:07)
[2017-12-06] MEDS: Enoxaparin 40 MG/0.4 ML Syringe SC (05:45)
[2017-12-06] MEDS: Glucerna Shake 120 ML LIQUID PO ×4 (05:45→20:05)
[2017-12-06] MEDS: Triamterene 37.5MG/Hctz 25MG Capsule 1 CAP PO (05:45)
[2017-12-06] MEDS: buPROPion (XL) 150 MG TABLET.XL PO ×2 (05:46→17:08)
[2017-12-06 07:01] LABS: Bedside Glucose 130 mg/dL (70-110)
[2017-12-06] MEDS: Insulin Lispro 100 UNIT/ML INSULN.PEN 15 UNIT SC ×3 (08:39→17:13)
[2017-12-06] MEDS: metFORMIN HCl 1,000 MG Tablet 1000 MG PO ×2 (08:40→17:07)
[2017-12-06] MEDS: Iron Polysaccharide Complex 150 MG CAPSULE PO (08:40)
[2017-12-06] MEDS: 0.9% NaCl Peripheral Flush Adult/Peds IV ×4 (10:05→20:44)
[2017-12-06] MEDS: Insulin NPH Human 100 UNITS/ML PEN 37 UNITS SC ×2 (10:17→21:18)
[2017-12-06 10:26] LABS: Bedside Glucose 179 mg/dL (70-110)
[2017-12-06 11:41] LABS: Bedside Glucose 133 mg/dL (70-110)
[2017-12-06 14:58] VITALS: BP 136/79; PULSE 89; RESP 18; TEMP 36.4; O2SAT 98
[2017-12-06 17:06] LABS: Bedside Glucose 140 mg/dL (70-110)
--- NOTE | 2017-12-06 17:12 | NURSING ---
PICC line dressing changed per sterile technique. Patient tolerated well.
[2017-12-06 17:15] VITALS: O2SAT 99
[2017-12-06] MEDS: 0.9% NaCl IVPB Med Flush (250 mL) 15 ML IV (19:57)
[2017-12-06] MEDS: Atorvastatin Calcium 40 MG Tablet PO (20:10)
[2017-12-06 21:21] LABS: Bedside Glucose 132 mg/dL (70-110)
[2017-12-07] MEDS: Piperacil/Tazobactam 3.375 GM/50 ML ML IV ×3 (04:22→19:41)
[2017-12-07] MEDS: 0.9% NaCl Peripheral Flush Adult/Peds IV ×3 (04:23→19:42)
[2017-12-07] MEDS: Enoxaparin 40 MG/0.4 ML Syringe SC (05:07)
[2017-12-07] MEDS: NYSTATIN 500,000 UNIT/5 ML UDC 500000 UNIT PO ×4 (05:07→19:53)
[2017-12-07] MEDS: Glucerna Shake 120 ML LIQUID PO ×4 (05:08→19:52)
[2017-12-07] MEDS: Pantoprazole Sodium 20 MG Tablet PO ×2 (05:09→18:13)
[2017-12-07] MEDS: buPROPion (XL) 150 MG TABLET.XL PO ×2 (05:09→18:14)
[2017-12-07] MEDS: Losartan Potassium 100 MG Tablet PO (05:09)
[2017-12-07] MEDS: Gabapentin 400 MG Capsule 800 MG PO ×4 (05:09→19:52)
[2017-12-07] MEDS: Triamterene 37.5MG/Hctz 25MG Capsule 1 CAP PO (05:09)
[2017-12-07] MEDS: FLUoxetine 20 MG Capsule 60 MG PO (05:09)
[2017-12-07 06:41] LABS: Bedside Glucose 99 mg/dL (70-110)
[2017-12-07] MEDS: metFORMIN HCl 1,000 MG Tablet 1000 MG PO (08:20)
[2017-12-07] MEDS: Iron Polysaccharide Complex 150 MG CAPSULE PO (08:20)
[2017-12-07] MEDS: Insulin Lispro 100 UNIT/ML INSULN.PEN 15 UNIT SC ×3 (08:23→18:19)
[2017-12-07 10:00] VITALS: PULSE 81; O2SAT 96
[2017-12-07] MEDS: Insulin NPH Human 100 UNITS/ML PEN 37 UNITS SC ×2 (10:10→21:08)
[2017-12-07 10:41] LABS: Bedside Glucose 116 mg/dL (70-110)
[2017-12-07 11:45] LABS: Bedside Glucose 116 mg/dL (70-110)
--- NOTE | 2017-12-07 14:38 | RAD_ITS ---
STUDY: X-RAY - ABDOMEN/PELVIS REASON FOR EXAM: Male, 62 years old. Diarrhea TECHNIQUE: 3 supine views of the abdomen. COMPARISON: 06/21/2017 FINDINGS: There is no bowel obstruction. There is air and stool to the level of the rectum. There are surgical clips in the right upper quadrant from prior cholecystectomy. The visualized osseous structures are within normal limits. RAD/Abdomen Single View IMPRESSION: No bowel obstruction. Electronically Signed: Fabian Marsh, at 22:31 EDT Tel , Service support ,
--- NOTE | 2017-12-07 14:41 | NURSING ---
Addendum entered by May Menard 12/08/17 09:24: Dr fernández reviewed KUB, no new orders. Original Note: Pt has c/o diarrhea and abdominal upset since this morning. Temp 98.3. Abdomen non-tender and bowel sounds active. Dr. Fernández updated, NO to decrease metformin to 500mg PO BID and KUB. Patient updated.
[2017-12-07 15:32] VITALS: BP 157/68; PULSE 91; RESP 16; TEMP 36.8; O2SAT 95
[2017-12-07 16:55] LABS: Bedside Glucose 97 mg/dL (70-110)
--- NOTE | 2017-12-07 17:29 | NURSING ---
NO for imodium 2mg PO w2owabp PRN.
[2017-12-07] MEDS: Loperamide 2 MG Capsule PO (18:18)
[2017-12-07] MEDS: 0.9% NaCl IVPB Med Flush (250 mL) 15 ML IV (19:41)
[2017-12-07] MEDS: Atorvastatin Calcium 40 MG Tablet PO (19:52)
[2017-12-07 21:10] LABS: Bedside Glucose 143 mg/dL (70-110)
[2017-12-08] MEDS: Piperacil/Tazobactam 3.375 GM/50 ML ML IV ×3 (04:06→20:18)
[2017-12-08] MEDS: 0.9% NaCl Peripheral Flush Adult/Peds IV ×3 (04:07→20:19)
[2017-12-08] MEDS: Glucerna Shake 120 ML LIQUID PO ×4 (05:03→21:33)
[2017-12-08] MEDS: diazePAM 5 MG Tablet PO ×2 (05:03→11:25)
[2017-12-08] MEDS: oxyCODONE 5 MG Tablet 10 MG PO ×2 (05:03→11:26)
[2017-12-08] MEDS: NYSTATIN 500,000 UNIT/5 ML UDC 500000 UNIT PO ×4 (05:04→21:34)
[2017-12-08] MEDS: FLUoxetine 20 MG Capsule 60 MG PO (05:05)
[2017-12-08] MEDS: buPROPion (XL) 150 MG TABLET.XL PO ×2 (05:05→17:41)
[2017-12-08] MEDS: Gabapentin 400 MG Capsule 800 MG PO ×4 (05:06→21:36)
[2017-12-08] MEDS: Triamterene 37.5MG/Hctz 25MG Capsule 1 CAP PO (05:07)
[2017-12-08] MEDS: Losartan Potassium 100 MG Tablet PO (05:07)
[2017-12-08] MEDS: Pantoprazole Sodium 20 MG Tablet PO ×2 (05:07→17:40)
[2017-12-08] MEDS: Enoxaparin 40 MG/0.4 ML Syringe SC (05:08)
[2017-12-08 06:56] LABS: Bedside Glucose 119 mg/dL (70-110)
[2017-12-08] MEDS: Insulin Lispro 100 UNIT/ML INSULN.PEN 15 UNIT SC ×2 (08:43→12:14)
[2017-12-08] MEDS: Iron Polysaccharide Complex 150 MG CAPSULE PO (08:45)
[2017-12-08] MEDS: Insulin NPH Human 100 UNITS/ML PEN 37 UNITS SC ×2 (09:02→21:35)
[2017-12-08 11:05] LABS: Bedside Glucose 165 mg/dL (70-110)
--- NOTE | 2017-12-08 11:49 | CASEMGMT ---
Insurance Clinical information sent. Pending continued stay approval at this time. Auth#[id number] Ester PEREZ, HEELER MACHINE
[2017-12-08] MEDS: 0.9% NaCl PICC Flush IV (12:50)
[2017-12-08 14:00] VITALS: PULSE 91; RESP 18; O2SAT 98
[2017-12-08 15:35] VITALS: BP 148/91; PULSE 88; RESP 16; TEMP 36.1; O2SAT 97
[2017-12-08 17:11] LABS: Bedside Glucose 84 mg/dL (70-110)
[2017-12-08 18:01] LABS: Bedside Glucose 100 mg/dL (70-110)
[2017-12-08] MEDS: 0.9% NaCl IVPB Med Flush (250 mL) 15 ML IV (20:18)
[2017-12-08 21:11] LABS: Bedside Glucose 220 mg/dL (70-110)
[2017-12-08] MEDS: Atorvastatin Calcium 40 MG Tablet PO (21:36)
[2017-12-09] MEDS: Piperacil/Tazobactam 3.375 GM/50 ML ML IV ×3 (04:59→20:11)
[2017-12-09] MEDS: 0.9% NaCl Peripheral Flush Adult/Peds IV ×3 (05:00→20:10)
[2017-12-09] MEDS: diazePAM 5 MG Tablet PO (05:29)
[2017-12-09] MEDS: oxyCODONE 5 MG Tablet 10 MG PO (05:30)
[2017-12-09] MEDS: Pantoprazole Sodium 20 MG Tablet PO ×2 (05:31→17:27)
[2017-12-09] MEDS: NYSTATIN 500,000 UNIT/5 ML UDC 500000 UNIT PO ×4 (05:31→20:12)
[2017-12-09] MEDS: Glucerna Shake 120 ML LIQUID PO ×4 (05:31→20:11)
[2017-12-09] MEDS: Gabapentin 400 MG Capsule 800 MG PO ×4 (05:31→20:12)
[2017-12-09] MEDS: Triamterene 37.5MG/Hctz 25MG Capsule 1 CAP PO (05:31)
[2017-12-09] MEDS: buPROPion (XL) 150 MG TABLET.XL PO ×2 (05:32→17:27)
[2017-12-09] MEDS: FLUoxetine 20 MG Capsule 60 MG PO (05:32)
[2017-12-09] MEDS: Enoxaparin 40 MG/0.4 ML Syringe SC (05:33)
[2017-12-09] MEDS: Losartan Potassium 100 MG Tablet PO (05:36)
[2017-12-09 06:46] LABS: Bedside Glucose 165 mg/dL (70-110)
[2017-12-09] MEDS: Insulin Lispro 100 UNIT/ML INSULN.PEN 15 UNIT SC ×3 (08:16→17:27)
[2017-12-09] MEDS: Iron Polysaccharide Complex 150 MG CAPSULE PO (08:17)
--- NOTE | 2017-12-09 08:59 | CASEMGMT ---
Insurance Continued stay approved with next update due on 12/11/17. Auth#[id number] Ester PEREZ, MOTOR ROOM CONTROLLER
[2017-12-09 09:47] LABS: Erythrocyte Sedimentation Rate 27 mm/hr (0-20)
[2017-12-09 09:50] LABS: Absolute Lymphocyte Count 1.23 X10^3/ul (0.83-4.51); Basophil# 0.03 X10^3/uL; Basophil% 0.5 % (0-1); Eosinophils% 6.7 % (0-5); Hematocrit 36.6 % (40-54); Hemoglobin 11.6 g/dl (13.0-16.5); Lymphocyte # 1.23 X10^3/ul (4.0); Lymphocyte % 20.5 % (19-41); Mean Corp Hgb Conc 31.7 g/gl (32-36); Mean Corpuscular Hgb 27.6 pg (27.0-32.0); Mean Corpuscular Volume 86.9 fL (80-94); Mean Platelet Vol. 9.1 fl (6.2-12.0); Monocyte# 0.31 X10^3/uL; Monocyte% 5.2 % (0-10); Neutrophil # 4.03 X10^3/uL (2.7-7.7); Neutrophil % 67.1 % (47-70); Platelet Count 287 K/mm3 (150-450); RBC Distribution Width CV 15.2 % (11.6-14.6); RBC Distribution Width SD 48.8 fl (35.1-43.9); Red Blood Count 4.21 M/mm3 (4.6-6.2)
[2017-12-09 09:53] LABS: POSITIVE COUNT NO; POSITIVE DIFFERENTIAL NO; POSITIVE MORPHOLOGY NO
[2017-12-09] MEDS: Insulin NPH Human 100 UNITS/ML PEN 37 UNITS SC ×2 (09:58→21:34)
[2017-12-09 10:05] LABS: Vancomycin, Trough Level 19.7 ug/mL (5.0-15.0)
[2017-12-09 10:06] LABS: Anion Gap 7 (5-15); BUN 18 mg/dL (7-18); BUN/Creat Ratio 15.9 RATIO (10-20); Calcium,Total 8.9 mg/dL (8.5-10.1); Chloride 103 mmol/L (98-107); Creatinine, Serum 1.13 mg/dL (0.70-1.30); EST Glomerular Filtration Rate 70 mL/min (>60); Est Glom Filt Rate - Afr Amer 85 mL/min (>60); Estimated Creatinine Clearance 82.05 ml/min; Glucose 246 mg/dL (74-106); Potassium 4.4 mmol/L (3.5-5.1); Sodium Level 138 mmol/L (136-145)
--- NOTE | 2017-12-09 10:25 | PCM.RX.CS ---
Consult Pharmacy has been consulted to manage selected antiobiotic: Vancomycin Type of Consult: Follow-up Suspected Infection: Osteomyelitis Prior Doses of Antibiotics Received/Current Regimen: Patient currently still receiving vancomycin 2000mg IV q12h Labs: Sodium 138 mmol/L (136-145) 12/09/17 09:30 Potassium 4.4 mmol/L (3.5-5.1) 12/09/17 09:30 Chloride 103 mmol/L (98-107) 12/09/17 09:30 Carbon Dioxide 28.0 mmol/L (21.0-32.0) 12/09/17 09:30 Anion Gap 7 (5-15) 12/09/17 09:30 BUN 18 mg/dL (7-18) 12/09/17 09:30 Creatinine 1.13 mg/dL (0.70-1.30) 12/09/17 09:30 Est GFR (MDRD) Af Amer 85 mL/min (>60) 12/09/17 09:30 Est GFR (MDRD) Non-Af 70 mL/min (>60) 12/09/17 09:30 BUN/Creatinine Ratio 15.9 RATIO (10-20) 12/09/17 09:30 Glucose 246 mg/dL (74-106) H 12/09/17 09:30 Vancomycin Trough 19.7 ug/mL (5.0-15.0) H 12/09/17 09:30 Goal Trough: 15-20 mcg/mL Pharmacy Plan for Drug Dosing: Trough obtained before this morning's dose was 19.7 (drawn 12 hours after the previous dose), which is within the goal range of 15-20. Since the planned stop date of vancomycin therapy is 7 days from now on 12/16/17, no further trough levels will be entered at this time. Continue with 2000mg IV q12h. Pharmacy Service will continue to monitor and adjust dosing as required.
[2017-12-09 11:36] LABS: Bedside Glucose 191 mg/dL (70-110)
--- NOTE | 2017-12-09 11:42 | NURSING ---
wound photo: left stump
[2017-12-09] MEDS: 0.9% NaCl IVPB Med Flush (250 mL) 15 ML IV ×2 (13:30→20:11)
--- NOTE | 2017-12-09 15:15 | CHAPLAIN ---
Type of Pastoral Visit ___ Initial Visit _x__ Follow-up Visit ___ On-call Visit ___ General Patient Visit ___ Spiritual Assessment ___ Family Conference ___ Bereavement ___ Rapid Response ___ Code Blue ___ Other (describe below) Pastoral Care Referral From _x__ Patient ___ Family ___ Nurse ___ Physician ___ Family Assistant ___ Glove Operator ___ Other (describe below) Sacrament/Intervention _x__ Active listening ___ Anointing ___ Christian ___ Bereavement ___ Communion ___ Bridgett exploration ___ _x__ Life review ___ Prayer ___ Reconciliation ___ Sacrament of Sick ___ Supportive presence ___ Wedding ___ Other (describe below) Pastoral Comments
[2017-12-09 16:00] VITALS: BP 150/60; PULSE 82; RESP 16; TEMP 36.6; O2SAT 96
[2017-12-09 17:00] LABS: Bedside Glucose 204 mg/dL (70-110)
[2017-12-09] MEDS: Atorvastatin Calcium 40 MG Tablet PO (20:15)
[2017-12-09 21:00] LABS: Bedside Glucose 165 mg/dL (70-110)
[2017-12-10] MEDS: Piperacil/Tazobactam 3.375 GM/50 ML ML IV ×3 (04:16→19:55)
[2017-12-10] MEDS: Glucerna Shake 120 ML LIQUID PO ×4 (06:30→20:03)
[2017-12-10] MEDS: FLUoxetine 20 MG Capsule 60 MG PO (06:31)
[2017-12-10] MEDS: Losartan Potassium 100 MG Tablet PO (06:31)
[2017-12-10] MEDS: buPROPion (XL) 150 MG TABLET.XL PO ×2 (06:31→17:36)
[2017-12-10] MEDS: Pantoprazole Sodium 20 MG Tablet PO ×2 (06:31→17:36)
[2017-12-10] MEDS: NYSTATIN 500,000 UNIT/5 ML UDC 500000 UNIT PO ×4 (06:31→19:57)
[2017-12-10] MEDS: Gabapentin 400 MG Capsule 800 MG PO ×4 (06:32→19:56)
[2017-12-10] MEDS: Triamterene 37.5MG/Hctz 25MG Capsule 1 CAP PO (06:32)
[2017-12-10] MEDS: Enoxaparin 40 MG/0.4 ML Syringe SC (06:34)
[2017-12-10 06:56] LABS: Bedside Glucose 91 mg/dL (70-110)
[2017-12-10] MEDS: Insulin Lispro 100 UNIT/ML INSULN.PEN 15 UNIT SC ×2 (08:15→17:36)
[2017-12-10] MEDS: Iron Polysaccharide Complex 150 MG CAPSULE PO (08:15)
[2017-12-10] MEDS: Insulin NPH Human 100 UNITS/ML PEN 37 UNITS SC ×2 (10:40→21:54)
[2017-12-10 11:46] LABS: Bedside Glucose 116 mg/dL (70-110)
[2017-12-10] MEDS: diazePAM 5 MG Tablet PO ×2 (12:16→21:46)
--- NOTE | 2017-12-10 12:25 | NURSING ---
Pt increasingly tearful, states he is having increased anxiety and mixed emotions about returning home. 1:1 given, re-directed, offered activity all with ill effect. PRN valium given at this time. Will continue to give 1:1. Routine insulin held d/t pt refusing to eat lunch stating he is not and hungry. States he will drink coffee and glucerna. Will continue to monitor.
[2017-12-10] MEDS: 0.9% NaCl PICC Flush IV ×3 (13:11→14:10)
[2017-12-10 16:00] VITALS: BP 118/74; PULSE 85; RESP 16; TEMP 36.6; O2SAT 97
[2017-12-10 16:56] LABS: Bedside Glucose 156 mg/dL (70-110)
[2017-12-10] MEDS: 0.9% NaCl IVPB Med Flush (250 mL) 15 ML IV (19:56)
[2017-12-10] MEDS: 0.9% NaCl Peripheral Flush Adult/Peds IV (19:58)
[2017-12-10] MEDS: Atorvastatin Calcium 40 MG Tablet PO (20:05)
[2017-12-10 20:10] VITALS: PULSE 72; RESP 16; O2SAT 97
[2017-12-10 20:51] LABS: Bedside Glucose 186 mg/dL (70-110)
[2017-12-10] MEDS: oxyCODONE 5 MG Tablet 10 MG PO (21:46)
[2017-12-11] MEDS: Piperacil/Tazobactam 3.375 GM/50 ML ML IV ×3 (04:23→21:01)
[2017-12-11] MEDS: Glucerna Shake 120 ML LIQUID PO ×3 (04:24→21:22)
[2017-12-11] MEDS: Enoxaparin 40 MG/0.4 ML Syringe SC (04:27)
[2017-12-11] MEDS: 0.9% NaCl Peripheral Flush Adult/Peds IV ×3 (04:27→10:28)
[2017-12-11] MEDS: Triamterene 37.5MG/Hctz 25MG Capsule 1 CAP PO (04:29)
[2017-12-11] MEDS: Gabapentin 400 MG Capsule 800 MG PO ×4 (04:29→21:08)
[2017-12-11] MEDS: NYSTATIN 500,000 UNIT/5 ML UDC 500000 UNIT PO ×4 (04:29→21:08)
[2017-12-11] MEDS: Losartan Potassium 100 MG Tablet PO (04:29)
[2017-12-11] MEDS: buPROPion (XL) 150 MG TABLET.XL PO ×2 (04:30→18:16)
[2017-12-11] MEDS: Pantoprazole Sodium 20 MG Tablet PO ×2 (04:30→18:15)
[2017-12-11] MEDS: FLUoxetine 20 MG Capsule 60 MG PO (04:30)
[2017-12-11 07:01] LABS: Bedside Glucose 140 mg/dL (70-110)
[2017-12-11] MEDS: diazePAM 5 MG Tablet PO ×2 (07:13→15:25)
[2017-12-11] MEDS: oxyCODONE 5 MG Tablet 10 MG PO (07:13)
[2017-12-11] MEDS: Insulin Lispro 100 UNIT/ML INSULN.PEN 15 UNIT SC ×3 (08:39→18:15)
[2017-12-11] MEDS: Iron Polysaccharide Complex 150 MG CAPSULE PO (08:40)
[2017-12-11 10:00] VITALS: PULSE 68; RESP 16; O2SAT 95
[2017-12-11] MEDS: Insulin NPH Human 100 UNITS/ML PEN 37 UNITS SC ×2 (10:34→21:40)
[2017-12-11 11:16] LABS: Bedside Glucose 259 mg/dL (70-110)
--- NOTE | 2017-12-11 12:23 | CASEMGMT ---
Insurance Clinical information faxed. Pending continued stay approval at this time. Auth#[id number] Ester PEREZ, IT APPLICATION ADMINISTRATOR
[2017-12-11 16:00] VITALS: BP 108/62; PULSE 76; RESP 16; TEMP 36.1; O2SAT 97
[2017-12-11 17:16] LABS: Bedside Glucose 147 mg/dL (70-110)
[2017-12-11] MEDS: Atorvastatin Calcium 40 MG Tablet PO (21:08)
[2017-12-11 21:16] LABS: Bedside Glucose 155 mg/dL (70-110)
[2017-12-12] MEDS: Piperacil/Tazobactam 3.375 GM/50 ML ML IV ×3 (05:11→20:13)
[2017-12-12] MEDS: Triamterene 37.5MG/Hctz 25MG Capsule 1 CAP PO (05:14)
[2017-12-12] MEDS: FLUoxetine 20 MG Capsule 60 MG PO (05:14)
[2017-12-12] MEDS: buPROPion (XL) 150 MG TABLET.XL PO ×2 (05:14→17:46)
[2017-12-12] MEDS: Gabapentin 400 MG Capsule 800 MG PO ×4 (05:15→20:23)
[2017-12-12] MEDS: Enoxaparin 40 MG/0.4 ML Syringe SC (05:15)
[2017-12-12] MEDS: Glucerna Shake 120 ML LIQUID PO ×4 (05:15→20:24)
[2017-12-12] MEDS: Losartan Potassium 100 MG Tablet PO (05:15)
[2017-12-12] MEDS: NYSTATIN 500,000 UNIT/5 ML UDC 500000 UNIT PO ×4 (05:16→20:23)
[2017-12-12] MEDS: Pantoprazole Sodium 20 MG Tablet PO ×2 (05:17→17:46)
[2017-12-12] MEDS: oxyCODONE 5 MG Tablet 10 MG PO ×2 (07:08→20:20)
[2017-12-12] MEDS: diazePAM 5 MG Tablet PO ×2 (07:09→20:19)
[2017-12-12 07:31] LABS: Bedside Glucose 171 mg/dL (70-110)
[2017-12-12] MEDS: Iron Polysaccharide Complex 150 MG CAPSULE PO (08:53)
[2017-12-12] MEDS: Insulin Lispro 100 UNIT/ML INSULN.PEN 15 UNIT SC ×3 (08:54→17:48)
[2017-12-12] MEDS: Insulin NPH Human 100 UNITS/ML PEN 37 UNITS SC ×2 (09:01→22:11)
[2017-12-12] MEDS: 0.9% NaCl Peripheral Flush Adult/Peds IV ×3 (09:51→20:16)
[2017-12-12] MEDS: 0.9% NaCl IVPB Med Flush (250 mL) 15 ML IV (09:54)
[2017-12-12 11:26] LABS: Bedside Glucose 169 mg/dL (70-110)
--- NOTE | 2017-12-12 13:09 | CASEMGMT ---
Insurance Continued stay denied with last cover day being 12/16/17 and resident to discharge of financial responsibility to begin on 12/17/17. Auth#[id number] Ester PEREZ, HUMAN RELATIONS TEACHER
--- NOTE | 2017-12-12 13:10 | CASEMGMT ---
Social Work Spoke with resident in room. This director social communicating that continued stay has been denied by insurance with a last cover day being 12/16/17 and resident to discharge or resident financial responsibility to begin on 12/17/17. Resident choosing to discharge on 12/17/17. Resident plans to discharge to home with spouse at time of discharge. Resident reporting to be able to manage wound care at time of discharge and to have all needed dressing change supplies already set up within the home. Resident reporting to not need continued nursing services within the home. No further therapy is being recommended at this time. Resident reporting that mood has been good and to have only has one bad day this week and to be looking forward to discharging to home. Support given. Proposed discharge date: 12/17/17 PLAN: Discharge to home with spouse.
--- NOTE | 2017-12-12 14:34 | DCINST_ITS ---
You will use the following diet at home:: No restrictions, Regular Your food should be the consistency of: Regular Your liquids should be the consistency of: Regular/Thin Discharge Activity: Return to Normal Activity, May Shower, Use Walker Weight Bearing Status: Weight bearing as tolerated Call your doctor if you observe: Fever of 101 or Higher, Inability to urinate, Inability to have a bowel movement, Shortness of breath, Chest pain, Uncontrolled pain Allergies/Adverse Reactions: Allergies cefepime Allergy (Verified 10/13/17 13:14) Hives sulfamethoxazole [From Octra] Allergy (Verified 10/13/17 13:14) turned red trimethoprim [From ] Allergy (Verified 10/13/17 13:14) turned red lisinopril Adverse Reaction (Verified 10/13/17 13:14) cough Medications to take at Discharge Losartan Potassium [Cozaar] 100 mg PO DAILY 06/05/16 buPROPion XL [Wellbutrin Xl] 150 mg PO DAILY 01/21/17 Triamterene/Hydrochlorothiazid [Triamterene-Hctz 37.5-25 mg Cp] 1 each PO DAILY 03/24/17 Gabapentin [Neurontin] 800 mg PO 4X/DAY 08/18/17 Insulin NPH Human Isophane [Novolin N] 50 unit SQ BID 08/18/17 Insulin Lispro [Humalog KwikPen] 20 unit SC TIDCM 10/31/17 Diazepam [Valium] 5 mg PO 4X/DAY PRN PRN #30 tab 11/07/17 Acetaminophen [Tylenol] 1,000 mg PO Q8H PRN PRN tablet 12/12/17 Atorvastatin Calcium [Lipitor] 40 mg PO QHS #30 tab 12/12/17 Fluoxetine [Prozac] 60 mg PO DAILY #90 capsule 12/12/17 Iron Polysaccharide Complex [Ferrex 150] 150 mg PO DAILYCM #30 cap 12/12/17 Metformin HCl [Glucophage] 500 mg PO BIDCM tablet 12/12/17 Nutritional Supplement [Greg - ORANGE FLAVOR] 1 packet PO BIDCM #60 packet 12/12/17 Oxycodone [Oxyir] 10 mg PO Q4H PRN PRN 7 Days #60 tab 12/12/17 Pantoprazole Sodium [Protonix] 20 mg PO BID #60 tab 12/12/17 Polyethylene Glycol 3350 [Miralax] 17 gm PO DAILY #30 packet 12/12/17 The following prescriptions were given: Oxycodone [Oxyir] 10 mg PO Q4H PRN PRN 7 Days #60 tab PRN Reason: Severe Pain (-11/26) Atorvastatin Calcium [Lipitor] 40 mg PO QHS #30 tab Diazepam [Valium] 5 mg PO 4X/DAY PRN PRN #30 tab PRN Reason: Spasms Fluoxetine [Prozac] 60 mg PO DAILY #90 capsule Iron Polysaccharide Complex [Ferrex 150] 150 mg PO DAILYCM #30 cap Polyethylene Glycol 3350 [Miralax] 17 gm PO DAILY #30 packet Nutritional Supplement [Greg - ORANGE FLAVOR] 1 packet PO BIDCM #60 packet Pantoprazole Sodium [Protonix] 20 mg PO BID #60 tab Primary Care Physician: Orion Cordova [Primary Care Provider] - Please follow up with your Primary Care Physician in: 1 week. Test Results: Test results from this visit will be discussed in further detail at your follow- up appointment, if applicable. Proposed Discharge Date: 12/17/17
--- NOTE | 2017-12-12 14:34 | PCM.DC.SUM ---
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) Obstructive sleep apnea (Chronic) Hyperlipidemia (Chronic) Chronic pain (Chronic) Diabetes mellitus (Chronic) Venous insufficiency (Chronic) Hypertension (Chronic) Osteomyelitis (Chronic) Non-pressure chronic ulcer of left heel and midfoot with muscle involvement without evidence of necrosis (Chronic) Infection of left foot (Chronic) Hypersomnia (Chronic) Ulcer of midfoot with necrosis of muscle (Chronic) Nocturnal hypoxemia (Chronic) Abscess of left foot (Chronic) Diabetic ulcer of left foot with fat layer exposed (Chronic) Non-pressure chronic ulcer of left heel and midfoot with fat layer exposed (Chronic) 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 Venous insufficiency of both lower extremities (Chronic) S/P transmetatarsal amputation of foot (Chronic) 03/04/[address] 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) Hypertension (Chronic) Amputation of right foot with complication (Chronic) Type 2 diabetes mellitus with diabetic polyneuropathy (Chronic) Stasis dermatitis of both legs (Chronic) Sleep apnea (Chronic) CPAP 15 cm H20, 100% compliant Neuropathy (Chronic) secondary to diabetes Morbid obesity (Chronic) Anemia (Chronic) Dyslipidemia (Chronic) Left ventricular hypertrophy (Chronic) Chronic pain syndrome (Chronic) Depression (Chronic) Hospital Course and Treatment Imaging Results: 12/01/17 10:43 Diet: Cardiac/Low Cholesterol Is pt able to select menu?: No Diet Comments: cardiac Clinical Impression(s) from Imaging Studies Chest X-Ray 11/18/17 18:00 IMPRESSION: Degenerative changes, as described above. No demonstrated acute cardiopulmonary process. There is PICC on the right. Electronically Signed: Morgan Gonzalez MD at 18:35 EDT , Service support , KUB X-Ray 12/07/17 14:38 IMPRESSION: No bowel obstruction. Electronically Signed: Fabian Marsh, at 22:31 EDT Tel , Service support , Labs (Last 48 Hours) 12/10/17 12/10/17 12/11/17 16:52 20:42 06:53 POC Glucose 156 H 186 H 140 H 12/11/17 12/11/17 12/11/17 11:11 17:01 21:10 POC Glucose 259 H 147 H 155 H 12/12/17 12/12/17 07:24 11:12 POC Glucose 171 H 169 H Operations: None, - Procedures: None Summary of Care Provided: The patient is a 62 year old Male with below past medical history hospitalized for infected dehisced left BKA wound, underwent flap closure with Dr. Rodriguez 10/28/2017, admitted to TCU with debility, here for rehabilitation, strengthening, prior to discharge home with spouse. On TCU, resident suffered worsening depression, Celexa 40MG changed to Fluoxetine 60MG daily, doing well, will discharge with Fluoxetine 60MG daily. [] Discharge home with spouse. - Physical Exam Vital Signs Temp Pulse Resp BP Pulse Ox 97.0 F L 76 16 108/62 97 12/11/17 16:00 12/11/17 16:00 12/11/17 16:00 12/11/17 16:00 12/11/17 16:00 Oxygen Delivery Method Room Air Weight: 129.444 kg Body Mass Index (BMI) 34.9 Finger Stick Blood Glucose 168 Intake and Output for Last 24 Hours 12/10/17 12/11/17 12/12/17 23:59 23:59 23:59 Intake Total 960 / 960 2059 1000 / 1000 Output Total 2074 3275 / 3275 Balance -1115 / -1115 -1215 / -1215 1000 / 1000 POC Glucose 12/12/17 12/12/17 12/11/17 11:12 07:24 21:10 POC Glucose 169 H 171 H 155 H 12/11/17 17:01 POC Glucose 147 H Discharge Diet: No Restrictions Discharge Activity: Return to Normal Activity, May Shower, Use Walker Weight Bearing Status: Weight bearing as tolerated Call your doctor if you observe: Fever of 101 or Higher, Inability to urinate, Inability to have a bowel movement, Shortness of breath, Chest pain, Uncontrolled pain Home Medications: Medications to take at Discharge Losartan Potassium [Cozaar] 100 mg PO DAILY 06/05/16 buPROPion XL [Wellbutrin Xl] 150 mg PO DAILY 01/21/17 Triamterene/Hydrochlorothiazid [Triamterene-Hctz 37.5-25 mg Cp] 1 each PO DAILY 03/24/17 Gabapentin [Neurontin] 800 mg PO 4X/DAY 08/18/17 Insulin NPH Human Isophane [Novolin N] 50 unit SQ BID 08/18/17 Insulin Lispro [Humalog KwikPen] 20 unit SC TIDCM 10/31/17 Diazepam [Valium] 5 mg PO 4X/DAY PRN PRN #30 tab 11/07/17 Acetaminophen [Tylenol] 1,000 mg PO Q8H PRN PRN tablet 12/12/17 Atorvastatin Calcium [Lipitor] 40 mg PO QHS #30 tab 12/12/17 Fluoxetine [Prozac] 60 mg PO DAILY #90 capsule 12/12/17 Iron Polysaccharide Complex [Ferrex 150] 150 mg PO DAILYCM #30 cap 12/12/17 Metformin HCl [Glucophage] 500 mg PO BIDCM tablet 12/12/17 Nutritional Supplement [Greg - ORANGE FLAVOR] 1 packet PO BIDCM #60 packet 12/12/17 Oxycodone [Oxyir] 10 mg PO Q4H PRN PRN 7 Days #60 tab 12/12/17 Pantoprazole Sodium [Protonix] 20 mg PO BID #60 tab 12/12/17 Polyethylene Glycol 3350 [Miralax] 17 gm PO DAILY #30 packet 12/12/17 Following Prescrptions Were Given to Patient: Oxycodone [Oxyir] 10 mg PO Q4H PRN PRN 7 Days #60 tab PRN Reason: Severe Pain (-11/26) Atorvastatin Calcium [Lipitor] 40 mg PO QHS #30 tab Diazepam [Valium] 5 mg PO 4X/DAY PRN PRN #30 tab PRN Reason: Spasms Fluoxetine [Prozac] 60 mg PO DAILY #90 capsule Iron Polysaccharide Complex [Ferrex 150] 150 mg PO DAILYCM #30 cap Polyethylene Glycol 3350 [Miralax] 17 gm PO DAILY #30 packet Nutritional Supplement [Greg - ORANGE FLAVOR] 1 packet PO BIDCM #60 packet Pantoprazole Sodium [Protonix] 20 mg PO BID #60 tab Primary Care Physician: Orion Cordova [Primary Care Provider] - Please follow up with your Primary Care Physician in: 1 week. Disposition: Home Minutes spent on discharge:: 30 Patient Condition:: Stable Medical Necessity - Tobacco Use Smoking Status: Former smoker Tobacco Use: Non-smoker Meaningful Use Info Meaningful Use Diagnoses (Choose all that apply): None applicable
[2017-12-12 16:00] VITALS: BP 135/76; PULSE 79; RESP 20; TEMP 36.7; O2SAT 97
[2017-12-12 17:11] LABS: Bedside Glucose 142 mg/dL (70-110)
[2017-12-12] MEDS: Atorvastatin Calcium 40 MG Tablet PO (20:23)
[2017-12-12 20:49] VITALS: PULSE 68; RESP 18; O2SAT 96
[2017-12-12 21:56] LABS: Bedside Glucose 214 mg/dL (70-110)
[2017-12-13] MEDS: diazePAM 5 MG Tablet PO ×3 (00:31→20:01)
[2017-12-13] MEDS: oxyCODONE 5 MG Tablet 10 MG PO ×3 (00:31→20:01)
[2017-12-13] MEDS: proMETHazine 25 MG Tablet PO (01:11)
[2017-12-13] MEDS: Piperacil/Tazobactam 3.375 GM/50 ML ML IV ×3 (04:55→20:01)
[2017-12-13] MEDS: 0.9% NaCl Peripheral Flush Adult/Peds IV ×3 (05:01→20:02)
[2017-12-13] MEDS: Enoxaparin 40 MG/0.4 ML Syringe SC (05:52)
[2017-12-13] MEDS: Losartan Potassium 100 MG Tablet PO (05:52)
[2017-12-13] MEDS: Gabapentin 400 MG Capsule 800 MG PO ×4 (05:52→20:53)
[2017-12-13] MEDS: NYSTATIN 500,000 UNIT/5 ML UDC 500000 UNIT PO ×4 (05:52→20:54)
[2017-12-13] MEDS: Pantoprazole Sodium 20 MG Tablet PO ×2 (05:52→17:19)
[2017-12-13] MEDS: Glucerna Shake 120 ML LIQUID PO ×4 (05:52→20:53)
[2017-12-13] MEDS: Triamterene 37.5MG/Hctz 25MG Capsule 1 CAP PO (05:53)
[2017-12-13] MEDS: FLUoxetine 20 MG Capsule 60 MG PO (05:53)
[2017-12-13] MEDS: buPROPion (XL) 150 MG TABLET.XL PO ×2 (05:53→17:19)
--- NOTE | 2017-12-13 06:51 | NURSING ---
Dressing to stump changed, CONCHIS wrap applied per orders. Pt tolerated well with no complaints.
[2017-12-13 07:06] LABS: Bedside Glucose 158 mg/dL (70-110)
[2017-12-13] MEDS: Insulin Lispro 100 UNIT/ML INSULN.PEN 15 UNIT SC ×3 (08:32→17:18)
[2017-12-13] MEDS: Iron Polysaccharide Complex 150 MG CAPSULE PO (08:33)
[2017-12-13 10:00] VITALS: PULSE 84; RESP 18; O2SAT 95
[2017-12-13] MEDS: Insulin NPH Human 100 UNITS/ML PEN 37 UNITS SC ×2 (10:33→20:58)
[2017-12-13 11:21] LABS: Bedside Glucose 169 mg/dL (70-110)
[2017-12-13 15:35] VITALS: BP 151/52; PULSE 86; RESP 16; TEMP 36.8; O2SAT 96
[2017-12-13 16:51] LABS: Bedside Glucose 229 mg/dL (70-110)
[2017-12-13 20:41] LABS: Bedside Glucose 237 mg/dL (70-110)
[2017-12-13] MEDS: Atorvastatin Calcium 40 MG Tablet PO (20:54)
[2017-12-14] MEDS: 0.9% NaCl IVPB Med Flush (250 mL) 15 ML IV ×2 (04:15→20:30)
[2017-12-14] MEDS: 0.9% NaCl PICC Flush IV (04:15)
[2017-12-14] MEDS: Piperacil/Tazobactam 3.375 GM/50 ML ML IV ×3 (04:15→20:30)
[2017-12-14] MEDS: Glucerna Shake 120 ML LIQUID PO ×4 (05:16→20:17)
[2017-12-14] MEDS: FLUoxetine 20 MG Capsule 60 MG PO (05:17)
[2017-12-14] MEDS: Pantoprazole Sodium 20 MG Tablet PO ×2 (05:17→17:43)
[2017-12-14] MEDS: buPROPion (XL) 150 MG TABLET.XL PO ×2 (05:17→17:42)
[2017-12-14] MEDS: Gabapentin 400 MG Capsule 800 MG PO ×4 (05:17→20:18)
[2017-12-14] MEDS: Enoxaparin 40 MG/0.4 ML Syringe SC (05:17)
[2017-12-14] MEDS: NYSTATIN 500,000 UNIT/5 ML UDC 500000 UNIT PO ×4 (05:18→20:16)
[2017-12-14] MEDS: Losartan Potassium 100 MG Tablet PO (05:18)
[2017-12-14] MEDS: Triamterene 37.5MG/Hctz 25MG Capsule 1 CAP PO (05:18)
[2017-12-14 06:55] LABS: Bedside Glucose 93 mg/dL (70-110)
[2017-12-14] MEDS: oxyCODONE 5 MG Tablet 10 MG PO ×2 (07:53→13:54)
[2017-12-14] MEDS: diazePAM 5 MG Tablet PO ×2 (07:53→13:55)
[2017-12-14] MEDS: Iron Polysaccharide Complex 150 MG CAPSULE PO (07:55)
[2017-12-14] MEDS: Insulin Lispro 100 UNIT/ML INSULN.PEN 15 UNIT SC ×3 (07:57→17:43)
[2017-12-14] MEDS: Insulin NPH Human 100 UNITS/ML PEN 37 UNITS SC ×2 (09:34→21:53)
[2017-12-14 09:41] LABS: Bedside Glucose 214 mg/dL (70-110)
[2017-12-14] MEDS: 0.9% NaCl Peripheral Flush Adult/Peds IV ×2 (10:32→20:30)
[2017-12-14 11:10] LABS: Bedside Glucose 194 mg/dL (70-110)
[2017-12-14 15:35] VITALS: BP 153/75; PULSE 75; RESP 20; TEMP 36.7; O2SAT 98
[2017-12-14 16:51] LABS: Bedside Glucose 249 mg/dL (70-110)
[2017-12-14] MEDS: Atorvastatin Calcium 40 MG Tablet PO (20:18)
[2017-12-14 21:21] LABS: Bedside Glucose 229 mg/dL (70-110)
[2017-12-15] MEDS: Piperacil/Tazobactam 3.375 GM/50 ML ML IV ×3 (04:42→20:59)
[2017-12-15] MEDS: 0.9% NaCl PICC Flush IV (04:44)
[2017-12-15] MEDS: FLUoxetine 20 MG Capsule 60 MG PO (05:34)
[2017-12-15] MEDS: Triamterene 37.5MG/Hctz 25MG Capsule 1 CAP PO (05:35)
[2017-12-15] MEDS: buPROPion (XL) 150 MG TABLET.XL PO ×2 (05:35→17:32)
[2017-12-15] MEDS: Glucerna Shake 120 ML LIQUID PO ×4 (05:35→19:36)
[2017-12-15] MEDS: Gabapentin 400 MG Capsule 800 MG PO ×4 (05:35→19:37)
[2017-12-15] MEDS: Losartan Potassium 100 MG Tablet PO (05:35)
[2017-12-15] MEDS: Pantoprazole Sodium 20 MG Tablet PO ×2 (05:35→17:31)
[2017-12-15] MEDS: Enoxaparin 40 MG/0.4 ML Syringe SC (05:36)
[2017-12-15 06:36] LABS: Bedside Glucose 190 mg/dL (70-110)
[2017-12-15] MEDS: Iron Polysaccharide Complex 150 MG CAPSULE PO (08:21)
[2017-12-15] MEDS: Insulin Lispro 100 UNIT/ML INSULN.PEN 15 UNIT SC ×3 (08:22→17:32)
[2017-12-15] MEDS: Insulin NPH Human 100 UNITS/ML PEN 37 UNITS SC ×2 (10:09→21:45)
[2017-12-15] MEDS: 0.9% NaCl Peripheral Flush Adult/Peds IV ×2 (10:11→20:59)
--- NOTE | 2017-12-15 11:22 | NURSING ---
DRESSING DONE BY MARY GARCIA WOUND NURSE.
[2017-12-15 11:25] LABS: Bedside Glucose 162 mg/dL (70-110)
--- NOTE | 2017-12-15 13:39 | NURSING ---
wound photo: left stump
[2017-12-15 14:50] VITALS: PULSE 101; RESP 18; O2SAT 94
[2017-12-15 15:08] VITALS: BP 125/71; PULSE 98; RESP 20; TEMP 36.8; O2SAT 96
--- NOTE | 2017-12-15 15:08 | PCM.PN.ID ---
Subjective: Feeling well, no fever, no n/v/d. Krystina out and incision doing well. - Physical Exam General: Alert, Cooperative, No apparent distress Lungs: Clear to auscultation, Normal air movement Cardiovascular: Regular rate, Regular Rhythm Abdomen: Soft, Non Tender, Non-Distended Skin: Incision - reviewed photos Vital Signs Temp Pulse Resp BP Pulse Ox 98.0 F 101 H 18 153/75 H 94 12/14/17 15:35 12/15/17 14:50 12/15/17 14:50 12/14/17 15:35 12/15/17 14:50 Oxygen Delivery Method Room Air Weight: 129.444 kg Body Mass Index (BMI) 34.9 Finger Stick Blood Glucose 168 Intake and Output for Last 24 Hours 12/13/17 12/14/17 12/15/17 23:59 23:59 23:59 Intake Total 810 / 810 1800 / 1800 1400 / 1400 Output Total 1800 / 1800 3150 / 3150 2550 / 2550 Balance -990 / -990 -1350 / -1350 -1150 / -1150 POC Glucose 12/15/17 12/15/17 12/14/17 11:21 06:28 21:16 POC Glucose 162 H 190 H 229 H 12/14/17 16:45 POC Glucose 249 H Medical Necessity - Tobacco Use Smoking Status: Former smoker Tobacco Use: Non-smoker Route of nutrition/ use of supplements: [] Nutritional Intake: [] IV Site: [] Tam Catheter: [] - Assessment/Plan Antibiotics: [] Assessment/Plan: [] LLE osteomyelitis of BKA site, most recent surg cx with enterobacter. Improving on iv vanc and zosyn. Picc in place. Stop date 12/16/17, weekly bmp, cbc, vanc trough, and esr. ESR has been improving, wound doing well, ok to stop abx and remove picc when course is complete. Will follow
[2017-12-15 16:55] LABS: Bedside Glucose 186 mg/dL (70-110)
[2017-12-15] MEDS: oxyCODONE 5 MG Tablet 10 MG PO (19:36)
[2017-12-15] MEDS: diazePAM 5 MG Tablet PO (19:37)
[2017-12-15] MEDS: Atorvastatin Calcium 40 MG Tablet PO (19:38)
[2017-12-15] MEDS: 0.9% NaCl IVPB Med Flush (250 mL) 15 ML IV (20:59)
[2017-12-15 21:31] LABS: Bedside Glucose 232 mg/dL (70-110)
[2017-12-16] MEDS: oxyCODONE 5 MG Tablet 10 MG PO ×2 (00:15→05:14)
[2017-12-16] MEDS: diazePAM 5 MG Tablet PO ×3 (00:15→21:32)
[2017-12-16] MEDS: Piperacil/Tazobactam 3.375 GM/50 ML ML IV (04:32)
[2017-12-16] MEDS: 0.9% NaCl Peripheral Flush Adult/Peds IV ×2 (04:33→10:06)
[2017-12-16 04:57] LABS: Absolute Lymphocyte Count 1.63 X10^3/ul (0.83-4.51); Absolute Neutrophil Count 3.1 X10^3/uL (2.0-7.7); Basophil# 0.04 X10^3/uL; Basophil% 0.7 % (0-1); Eosinophil# 0.32 X10^3/uL; Eosinophils% 5.6 % (0-5); Hemoglobin 11.6 g/dl (13.0-16.5); Lymphocyte # 1.63 X10^3/ul (4.0); Lymphocyte % 28.5 % (19-41); Mean Corp Hgb Conc 32.2 g/gl (32-36); Mean Corpuscular Hgb 27.9 pg (27.0-32.0); Mean Corpuscular Volume 86.5 fL (80-94); Mean Platelet Vol. 9.3 fl (6.2-12.0); Monocyte% 10.5 % (0-10); Neutrophil # 3.12 X10^3/uL (2.7-7.7); Neutrophil % 54.5 % (47-70); Platelet Count 308 K/mm3 (150-450); RBC Distribution Width CV 14.6 % (11.6-14.6); RBC Distribution Width SD 45.5 fl (35.1-43.9); Red Blood Count 4.16 M/mm3 (4.6-6.2); White Blood Count 5.7 K/mm3 (4.4-11.0)
[2017-12-16 05:03] LABS: POSITIVE COUNT NO; POSITIVE DIFFERENTIAL NO; POSITIVE MORPHOLOGY NO
[2017-12-16] MEDS: Enoxaparin 40 MG/0.4 ML Syringe SC (05:14)
[2017-12-16] MEDS: Triamterene 37.5MG/Hctz 25MG Capsule 1 CAP PO (05:15)
[2017-12-16] MEDS: Gabapentin 400 MG Capsule 800 MG PO ×4 (05:15→21:19)
[2017-12-16] MEDS: buPROPion (XL) 150 MG TABLET.XL PO ×2 (05:15→17:10)
[2017-12-16] MEDS: Losartan Potassium 100 MG Tablet PO (05:15)
[2017-12-16] MEDS: FLUoxetine 20 MG Capsule 60 MG PO (05:16)
[2017-12-16] MEDS: Glucerna Shake 120 ML LIQUID PO ×4 (05:16→21:18)
[2017-12-16] MEDS: Pantoprazole Sodium 20 MG Tablet PO ×2 (05:16→17:09)
[2017-12-16 05:17] LABS: Anion Gap 10 (5-15); BUN 21 mg/dL (7-18); BUN/Creat Ratio 21.1 RATIO (10-20); Calcium,Total 9.2 mg/dL (8.5-10.1); Chloride 102 mmol/L (98-107); EST Glomerular Filtration Rate 81 mL/min (>60); Est Glom Filt Rate - Afr Amer 98 mL/min (>60); Estimated Creatinine Clearance 92.72 ml/min; Glucose 194 mg/dL (74-106); Potassium 3.8 mmol/L (3.5-5.1); Sodium Level 141 mmol/L (136-145)
[2017-12-16 05:18] LABS: Erythrocyte Sedimentation Rate 38 mm/hr (0-20)
[2017-12-16 06:45] LABS: Bedside Glucose 195 mg/dL (70-110)
[2017-12-16] MEDS: Insulin Lispro 100 UNIT/ML INSULN.PEN 15 UNIT SC ×3 (08:09→17:34)
[2017-12-16] MEDS: Iron Polysaccharide Complex 150 MG CAPSULE PO (08:10)
[2017-12-16] MEDS: Insulin NPH Human 100 UNITS/ML PEN 37 UNITS SC ×2 (10:16→21:20)
[2017-12-16 11:31] LABS: Bedside Glucose 187 mg/dL (70-110)
--- NOTE | 2017-12-16 15:07 | CASEMGMT ---
Brief interview for mental status (BIMS) and resident mood interview (PHQ-9) completed on this day. BIMS score 15/15. PHQ-9 score
[2017-12-16 15:37] VITALS: BP 158/80; PULSE 89; RESP 16; TEMP 36.1; O2SAT 98
--- NOTE | 2017-12-16 16:55 | CHAPLAIN ---
Type of Pastoral Visit ___ Initial Visit _x__ Follow-up Visit ___ On-call Visit ___ General Patient Visit ___ Spiritual Assessment ___ Family Conference ___ Bereavement ___ Rapid Response ___ Code Blue ___ Other (describe below) Pastoral Care Referral From _x__ Patient ___ Family ___ Nurse ___ Physician ___ Psychosocial Rehabilitation Counselor ___ Dining Room Host ___ Other (describe below) Sacrament/Intervention _x__ Active listening ___ Anointing ___ Orthodox ___ Bereavement ___ Communion ___ Bridgett exploration ___ _x__ Life review _x__ Prayer ___ Reconciliation ___ Sacrament of Sick ___ Supportive presence ___ Wedding ___ Other (describe below) Pastoral Comments patient is leaving tomorrow after six weeks in TCU; pt expresses both kyle and concern at thought of being home again; pt does have support but says it won't be as good as what he had in TCU; pt has worries about his future with his amputated leg; pt welcomes spiritual care and prayer
[2017-12-16 17:10] LABS: Bedside Glucose 190 mg/dL (70-110)
[2017-12-16 21:01] LABS: Bedside Glucose 149 mg/dL (70-110)
[2017-12-16] MEDS: Atorvastatin Calcium 40 MG Tablet PO (21:19)
[2017-12-16 21:30] VITALS: PULSE 68; RESP 16; O2SAT 96
[2017-12-16] MEDS: 0.9% NaCl PICC Flush IV (21:30)
[2017-12-17 02:20] LABS: Bedside Glucose 160 mg/dL (70-110)
[2017-12-17] MEDS: Glucerna Shake 120 ML LIQUID PO (05:43)
[2017-12-17] MEDS: FLUoxetine 20 MG Capsule 60 MG PO (05:45)
[2017-12-17] MEDS: Losartan Potassium 100 MG Tablet PO (05:46)
[2017-12-17] MEDS: Pantoprazole Sodium 20 MG Tablet PO (05:46)
[2017-12-17] MEDS: Enoxaparin 40 MG/0.4 ML Syringe SC (05:46)
[2017-12-17] MEDS: Gabapentin 400 MG Capsule 800 MG PO (05:46)
[2017-12-17] MEDS: Triamterene 37.5MG/Hctz 25MG Capsule 1 CAP PO (05:46)
[2017-12-17] MEDS: buPROPion (XL) 150 MG TABLET.XL PO (05:46)
[2017-12-17 06:11] LABS: Bedside Glucose 196 mg/dL (70-110)
[2017-12-17 06:30] VITALS: RESP 18; O2SAT 95
[2017-12-17] MEDS: Insulin Lispro 100 UNIT/ML INSULN.PEN 15 UNIT SC (07:50)
[2017-12-17] MEDS: Iron Polysaccharide Complex 150 MG CAPSULE PO (08:09)
[2017-12-17] MEDS: Insulin NPH Human 100 UNITS/ML PEN 37 UNITS SC (10:38)
[2017-12-17 10:55] VITALS: BP 155/72; PULSE 100; RESP 20; TEMP 36.6; O2SAT 96
--- NOTE | 2017-12-19 10:28 | CASEMGMT ---
Insurance Notified insurance of resident discharge on 12/17/17. Auth#[id number] CHRIS Murray, WEBSITE DESIGNER
== END 2017-12-17 11:15 | disposition home or self-care (01) | DRG 948 ==
PROVIDERS: Internal Medicine Infectious Disease; Surgery; Admitting Provider Family Medicine Geriatric Medicine; Family Provider Family Medicine; PCP Family Medicine; Visit Provider Family Medicine Geriatric Medicine
DX: R53.81 Other malaise (principal); T87.44 Infection of amputation stump, left lower extremity; M86.662 Other chronic osteomyelitis, left tibia and fibula; T87.81 Dehiscence of amputation stump; Y83.5 Amputation of limb(s) as the cause of abnormal reaction of the patient, or of later complication, without mention of misadventure at the time of the procedure; F32.9 Major depressive disorder, single episode, unspecified; Z23 Encounter for immunization; K21.9 Gastro-esophageal reflux disease without esophagitis; I10 Essential (primary) hypertension; F41.9 Anxiety disorder, unspecified; E78.5 Hyperlipidemia, unspecified; B95.2 Enterococcus as the cause of diseases classified elsewhere; G89.4 Chronic pain syndrome; E11.51 Type 2 diabetes mellitus with diabetic peripheral angiopathy without gangrene; G47.33 Obstructive sleep apnea (adult) (pediatric); E11.42 Type 2 diabetes mellitus with diabetic polyneuropathy; E66.9 Obesity, unspecified; Z87.891 Personal history of nicotine dependence; Z68.34 Body mass index [BMI] 34.0-34.9, adult; Z71.3 Dietary counseling and surveillance; Z86.14 Personal history of Methicillin resistant Staphylococcus aureus infection; B96.89 Other specified bacterial agents as the cause of diseases classified elsewhere
CPT/HCPCS: 36415; 36569; 71045; 74018; 80048; 80053; 80202; 82947; 82962; 85025; 85027; 85652; 86140; 97110; 97116; 97162; 97166; 97530; 97535; 97802; J2997; J7040; J7050; 90686; A4216

== ENCOUNTER 2018-01-12 10:30 | Outpatient (RCR) | payer MEDICARE, SELFPAY ==
[2017-12-29 11:23] VITALS: BP 153/89; PULSE 93; RESP 20; TEMP 37
--- NOTE | 2017-12-29 17:39 | PCM.WC.PN ---
Type of Wound Date of Service: 12/29/17 Chief Complaint: Nonhealing ulcer left BKA stump after a fall. History of Wound: Surgery 10/28/17 - 1. Surgical preparation left BKA stump with excision dehiscence amputation stump ulcer and partial ostectomy tibia for osteomyelitis. 2. Reconstruction with re-advancement muscle flap and bipedicle periosteal anterior fascial advancement flap and secondary wound closure revision. Wound care - Silver. Operative culture - Enterobacter cloacae in the soft tissue and bone. He was treated with Zosyn perioperatively and was sent to TCU on Cipro. When the Patholoy came back positive for osteomyelitis, a PICC line was placed and he was started on Vancomycin and Zosyn. He finished his IV antibiotics on 12/17/17. He was discharged on Doxycycline and Levaquin. Pathology - acute and chronic osteomyelitis. On 11/14/17, he fell out of bed on his stump when he tried to maneuver into his wheelchair. He sustained a superficial wound dehiscence that is being treated with Aquacel Silver. His Prealbumin on 10/29/17 was 28.3. Encourage nutritional supplementation with protein to help the healing process. Today he denies any fever. His appetite is good. Progress of Wound: Stable left BKA stump ulcer after a fall. - Physical Exam Vital Signs Temp Pulse Resp BP 98.6 F 93 20 H 153/89 H 12/29/17 11:23 12/29/17 11:23 12/29/17 11:23 12/29/17 11:23 Wound Measurements and Assessment WC - Nurse 1 - General Ulcer Measurement Start: 12/29/17 11:22 Freq: Status: Active Protocol: Activity Type Activity Date Activity User E-Sign Co-Sign Detail Recorded Client Recorded Date Recorded By Document 12/29/17 11:23 MW [id number] 12/29/17 11:33 MW 12/29/17 11:23 Wound Center Nurse 1 [Ulcer Assessment] #24 Left BKA dehisced incision -Combined with other wound No -Current Size (cm) - Length 1.3 -Current Size (cm) - Width 3.8 -Current Size (cm) - Depth 0.5 -Total Square Cm 4.94 -Date of Last Picture (Recall this 12/29/17 field) -Photo Taken Yes -Epithelialization None Present -Tunneling No -Undermining/Tunneling No -Circular Undermining No -Classification - Thickness Full Thickness without Exposed Support Structure -Exudate Amt Small (1-33%) -Exudate Type Serosanguineous -Wound Margin Distinct, Outline Attached -Granulation Amt Small (1-33%) -Granulation Quality Pale -Slough/Fibrin Yes -Necrosis Amt Large (67-100%) -Necrotic Tissue Type Adherent Slough -Structure Exposed N/A -Texture (Yael-wound Skin Appearance) Assessed Localized Edema Scarring -Moisture (Yael-wound Skin Appearance No Abnormality ) Assessed -Color (Yael-wound Skin Appearance) Assessed Rubor -Temperature (Yael-wound Skin No Abnormality Appearance) (Pt Warm) -Tenderness on Palpation (Yael-wound No Skin Appearance) -Ulcer Cleansing Rinsed/ Irrigated with Saline -Foul Odor after Cleansing No -Anesthetic Used 4% Lidocaine Solution [Edema Assessment] -Lower Limb Edema Present Yes -Left Calf (cm) 37.5 WC - Nurse 2 - General Ulcer CM Notes Start: 12/29/17 11:22 Freq: Status: Active Protocol: Activity Type Activity Date Activity User E-Sign Co-Sign Detail Recorded Client Recorded Date Recorded By Document 12/29/17 12:07 [id number] 12/29/17 12:10 12/29/17 12:07 Wound Center Nurse 2 [Procedure/Treatment] #24 Left BKA dehisced incision -Time 12:07 -Correct Patient Yes -Correct Side, Site, Position Yes -Correct Procedure Yes -Procedure Performed Yes -Type of Procedure Debridement -Clinical Debridement Subcutaneous -Post Debridement Size (cm) - Length 1.4 -Post Debridement Size (cm) - Width 3.8 -Post Debridement Size (cm) - Depth 0.6 -Total Square Cm 5.32 -Wound/Ulcer Outcome Not Healed -Ulcer Cleansing Rinsed/ Irrigated with Saline -Foul Odor after Cleansing No -Bioengineered Tissue No -Bleeding Controlled with Pressure -Treatment Response Procedure Tolerated Well [See Physician Procedure note for Specifics] Pain Scale: 0-10 Numeric [Pain] -Is Patient Pain Free? Yes Debridement Note Post-Debridement Measurements/Treatment WC - Nurse 2 - General Ulcer CM Notes Start: 12/29/17 11:22 Freq: Status: Active Protocol: Activity Type Activity Date Activity User E-Sign Co-Sign Detail Recorded Client Recorded Date Recorded By Document 12/29/17 12:07 [id number] 12/29/17 12:10 12/29/17 12:07 Wound Center Nurse 2 #24 Left BKA dehisced incision -Time 12:07 -Correct Patient Yes -Correct Side, Site, Position Yes -Correct Procedure Yes -Procedure Performed Yes -Type of Procedure Debridement -Clinical Debridement Subcutaneous -Post Debridement Size (cm) - Length 1.4 -Post Debridement Size (cm) - Width 3.8 -Post Debridement Size (cm) - Depth 0.6 -Total Square Cm 5.32 -Wound/Ulcer Outcome Not Healed -Ulcer Cleansing Rinsed/ Irrigated with Saline -Foul Odor after Cleansing No -Bioengineered Tissue No -Bleeding Controlled with Pressure -Treatment Response Procedure Tolerated Well Pain Scale: 0-10 Numeric Is Patient Pain Free? Yes Wound debrided: #24 Left BKA stump. Laterality: Left Wound Grade/Stage: 4. Type of Debridement: Excisional debridement Anesthesia Used: 4% Lidocaine Solution Depth: Down to and including healthy tissue, in the subcutaneous layer Percentage of wound debrided: 100 Instrument Used: 3mm curette Tissue Removed: subcutaneous tissue. Severity: Fat Layer Exposed Amount of bleeding with debridement: Mild Bleeding Controlled with: Pressure Patient tolerated procedure well Assessment/Plan Assessment: 1. Nonhealing ulcer left BKA stump after a fall. 2. Infection of left BKA stump. 3. Osteomyelitis. 4. MRSA. 5. Diabetes mellitus. 6. Former smoker. 7. s/p surgical preparation left BKA stump with excision dehiscence amputation stump ulcer and partial ostectomy tibia for osteomyelitis. 2. Reconstruction with re-advancement muscle flap and bipedicle periosteal anterior fascial advancement flap and secondary wound closure revision. Plan: Continue Silver dressing changes daily. He is finished with his antibiotics (Vancomycin and Zosyn) for osteomyelitis and for MRSA and Enterobacter cloacae. He was placed on Doxycycline and Levaquin and will continue them. His Prealbumin from 10/29/17 was 28.3. Encourage nutritional supplementation with protein to help the healing process. His HgbA1c is 6.7. He is a candidate for placental connective tissue graft to try and stimulate healing of this nonhealing stump ulcer in a timely fashion before it further erodes down to the bone. Once approved, will apply the placental connective tissue graft. He is also a candidate for HBO treatments. Patient states he will think about it. He states he has done HBO in the past. Before any attempts at wound closure in the future, he would need a partial ostectomy of his tibial bone to evaluate for osteomyelitis. If we cannot eradicate the osteomyelitis in his tibial bone, he may ultimately need an AKA. Patient voices understanding and wants to pursue aggressive treatments in order to salvage the BKA stump. Followup one week.
[2018-01-12 11:08] VITALS: BP 162/71; PULSE 80; RESP 18; TEMP 37.2
--- NOTE | 2018-01-12 21:51 | PN.PCM_ITS ---
Type of Wound Date of Service: 01/12/18 Chief Complaint: Nonhealing ulcer left BKA stump after a fall. History of Wound: Surgery 10/28/17 - 1. Surgical preparation left BKA stump with excision dehiscence amputation stump ulcer and partial ostectomy tibia for osteomyelitis. 2. Reconstruction with re-advancement muscle flap and bipedicle periosteal anterior fascial advancement flap and secondary wound closure revision. Wound care - Silver. Operative culture - Enterobacter cloacae in the soft tissue and bone. He was treated with Zosyn perioperatively and was sent to TCU on Cipro. When the Patholoy came back positive for osteomyelitis, a PICC line was placed and he was started on Vancomycin and Zosyn. He finished his IV antibiotics on 12/17/17. He was discharged on Doxycycline and Levaquin. Pathology - acute and chronic osteomyelitis. On 11/14/17, he fell out of bed on his stump when he tried to maneuver into his wheelchair. He sustained a superficial wound dehiscence that is being treated with Aquacel Silver. His Prealbumin on 10/29/17 was 28.3. Encourage nutritional supplementation with protein to help the healing process. Today he denies any fever. His appetite is good. The ulcer is stable with good granulation tissue and no exposed bone. Will place an Epicord placental connective tissue graft today. Progress of Wound: Slightly improved. - Physical Exam Vital Signs Temp Pulse Resp BP 98.9 F 80 18 162/71 H 01/12/18 11:08 01/12/18 11:08 01/12/18 11:08 01/12/18 11:08 Wound Measurements and Assessment WC - Nurse 1 - General Ulcer Measurement Start: 12/29/17 11:22 Freq: Status: Active Protocol: Activity Type Activity Date Activity User E-Sign Co-Sign Detail Recorded Client Recorded Date Recorded By Document 01/12/18 11:08 [id number] 01/12/18 11:20 01/12/18 11:08 Wound Center Nurse 1 [Ulcer Assessment] #24 Left BKA dehisced incision -Combined with other wound No -Current Size (cm) - Length 4.3 -Current Size (cm) - Width 1.2 -Current Size (cm) - Depth 0.7 -Total Square Cm 5.16 -Photo Taken No -Epithelialization Small 1-33% -Tunneling No -Undermining/Tunneling No -Circular Undermining No -Classification - Thickness Full Thickness without Exposed Support Structure -Exudate Amt Small (1-33%) -Exudate Type Serosanguineous -Wound Margin Distinct, Outline Attached -Granulation Amt Medium (34-66%) -Granulation Quality [place] -Slough/Fibrin Yes -Necrosis Amt Medium (34-66%) -Necrotic Tissue Type Adherent Slough -Structure Exposed Fascia Fat Layer Exposed -Texture (Yael-wound Skin Appearance) Assessed Scarring -Moisture (Yael-wound Skin Appearance No Abnormality ) Assessed -Color (Yael-wound Skin Appearance) No Abnormality Assessed -Temperature (Yael-wound Skin No Abnormality Appearance) (Pt Warm) -Tenderness on Palpation (Yael-wound No Skin Appearance) -Ulcer Cleansing Rinsed/ Irrigated with Saline -Foul Odor after Cleansing No -Anesthetic Used 5% Lidocaine Gel [Edema Assessment] -Lower Limb Edema Present No -Left Calf (cm) 37.0 WC - Nurse 2 - General Ulcer CM Notes Start: 12/29/17 11:22 Freq: Status: Active Protocol: Activity Type Activity Date Activity User E-Sign Co-Sign Detail Recorded Client Recorded Date Recorded By Document 01/12/18 11:58 MUSTAPHA [id number] 01/12/18 12:00 MUSTAPHA 01/12/18 11:58 Wound Center Nurse 2 [Procedure/Treatment] #24 Left BKA dehisced incision -Time 11:59 -Correct Patient Yes -Correct Side, Site, Position Yes -Correct Procedure Yes -Procedure Performed Yes -Type of Procedure Debridement -Clinical Debridement Subcutaneous -Post Debridement Size (cm) - Length 4.3 -Post Debridement Size (cm) - Width 1.3 -Post Debridement Size (cm) - Depth 0.7 -Total Square Cm 5.59 -Wound/Ulcer Outcome Not Healed -Ulcer Cleansing Rinsed/ Irrigated with Saline -Foul Odor after Cleansing No -Bioengineered Tissue Yes -Type of bioengineered Tissue EPICORD -Expiration Date 07/18/22 -Product Lot Number [id number] -Percent Used 100 -Saline Lot Number [id number] -Bleeding Controlled with Pressure -Treatment Response Procedure Tolerated Well [See Physician Procedure note for Specifics] Pain Scale: 0-10 Numeric [Pain] -Is Patient Pain Free? Yes Debridement Note Post-Debridement Measurements/Treatment WC - Nurse 2 - General Ulcer CM Notes Start: 12/29/17 11:22 Freq: Status: Active Protocol: Activity Type Activity Date Activity User E-Sign Co-Sign Detail Recorded Client Recorded Date Recorded By Document 12/29/17 12:07 MUSTAPHA [id number] 12/29/17 12:10 Document 01/12/18 11:58 MUSTAPHA [id number] 01/12/18 12:00 12/29/17 01/12/18 12:07 11:58 Wound Center Nurse 2 #24 Left BKA dehisced incision -Time 12:07 11:59 -Correct Patient Yes Yes -Correct Side, Site, Position Yes Yes -Correct Procedure Yes Yes -Procedure Performed Yes Yes -Type of Procedure Debridement Debridement -Clinical Debridement Subcutaneous Subcutaneous -Post Debridement Size (cm) - Length 1.4 4.3 -Post Debridement Size (cm) - Width 3.8 1.3 -Post Debridement Size (cm) - Depth 0.6 0.7 -Total Square Cm 5.32 5.59 -Wound/Ulcer Outcome Not Healed Not Healed -Ulcer Cleansing Rinsed/ Rinsed/ Irrigated with Irrigated with Saline Saline -Foul Odor after Cleansing No No -Bioengineered Tissue No Yes -Type of bioengineered Tissue EPICORD -Expiration Date 07/18/22 -Product Lot Number [id number] -Percent Used 100 -Saline Lot Number [id number] -Bleeding Controlled with Pressure Pressure -Treatment Response Procedure Procedure Tolerated Well Tolerated Well Pain Scale: 0-10 Numeric Is Patient Pain Free? Yes Yes Wound debrided: #24 Left BKA stump. Laterality: Left Wound Grade/Stage: 4. Type of Debridement: Excisional debridement Anesthesia Used: 4% Lidocaine Solution Depth: Down to and including healthy tissue, in the subcutaneous layer Percentage of wound debrided: 100 Instrument Used: 7mm curette Tissue Removed: subcutaneous tissue. Severity: Fat Layer Exposed Amount of bleeding with debridement: Mild Bleeding Controlled with: Pressure Patient tolerated procedure well, - - Placed Epicord #1 today. Lot Number - [id number]. I used 100% of the graft. Saline Lot Number - [id number]. Expiration - July 182022. This was followed by a wound veil and steristrips. Assessment/Plan Assessment: 1. Nonhealing ulcer left BKA stump after a fall. 2. Infection of left BKA stump. 3. Osteomyelitis. 4. MRSA. 5. Diabetes mellitus. 6. Former smoker. 7. s/p surgical preparation left BKA stump with excision dehiscence amputation stump ulcer and partial ostectomy tibia for osteomyelitis. 2. Reconstruction with re-advancement muscle flap and bipedicle periosteal anterior fascial advancement flap and secondary wound closure revision. Plan: The stump ulcer continues to improve slowly. Has good granulation tissue. No bone is exposed. Epicord placental connective tissue graft was applied today. It was application #1. Will continue placement of Epicord next week. The goal for placement of placental connective tissue graft is to try and stimulate healing of this nonhealing stump ulcer in a timely fashion before it has a chance to further erode down to the bone. He is finished with his antibiotics (Vancomycin and Zosyn) for osteomyelitis and for MRSA and Enterobacter cloacae. He was placed on Doxycycline and Levaquin and will continue them. His Prealbumin from 10/29/17 was 28.3. Encourage nutritional supplementation with protein to help the healing process. His HgbA1c is 6.7. He may also be a candidate for HBO treatments. Patient states he will think about it. He states he has done HBO in the past. Before any attempts at wound closure in the future, he would need a partial ostectomy of his tibial bone to evaluate for osteomyelitis. If we cannot eradicate the osteomyelitis in his tibial bone, he may ultimately need an AKA. Patient voices understanding and wants to pursue aggressive treatments in order to salvage the BKA stump. Followup one week.
== END 2018-01-16 23:59 ==
LOC: WC 10:30
PROVIDERS: Family Provider Family Medicine; PCP Family Medicine; Visit Provider Surgery
DX: T87.81 Dehiscence of amputation stump (principal); Y83.8 Other surgical procedures as the cause of abnormal reaction of the patient, or of later complication, without mention of misadventure at the time of the procedure; M86.68 Other chronic osteomyelitis, other site; Z87.891 Personal history of nicotine dependence; T87.44 Infection of amputation stump, left lower extremity; E11.69 Type 2 diabetes mellitus with other specified complication; Z86.14 Personal history of Methicillin resistant Staphylococcus aureus infection
CPT/HCPCS: 11042; 15271; 99213; Q4131; G0463

== ENCOUNTER 2018-02-16 09:00 | Outpatient (RCR) | payer MEDICARE, SELFPAY ==
[2018-01-17 01:57] VITALS: BP 162/71; PULSE 80; RESP 18; TEMP 37.2; BMI 40.1
[2018-01-19 09:50] VITALS: BP 165/90; PULSE 83; RESP 16; TEMP 36.4; BMI 40.1
--- NOTE | 2018-01-19 11:46 | PCM.WC.PN ---
(1) Nonhealing ulcer of left lower extremity Status: Chronic Current Visit: Yes Code(s): L97.929 - Non-pressure chronic ulcer of unspecified part of left lower leg with unspecified severity (2) Osteomyelitis Status: Chronic Current Visit: Yes Code(s): M86.9 - Osteomyelitis, unspecified (3) Diabetes mellitus Status: Chronic Current Visit: Yes Qualifiers: Code(s): E11.9 - Type 2 diabetes mellitus without complications (4) MRSA (methicillin resistant Staphylococcus aureus) infection Status: Chronic Current Visit: No Code(s): A49.02 - Methicillin resistant Staphylococcus aureus infection, unspecified site Type of Wound Date of Service: 01/19/18 Chief Complaint: Nonhealing ulcer left BKA stump after a fall. History of Wound: Surgery 10/28/17 - 1. Surgical preparation left BKA stump with excision dehiscence amputation stump ulcer and partial ostectomy tibia for osteomyelitis. 2. Reconstruction with re-advancement muscle flap and bipedicle periosteal anterior fascial advancement flap and secondary wound closure revision. Wound care - Silver. Operative culture - Enterobacter cloacae in the soft tissue and bone. He was treated with Zosyn perioperatively and was sent to TCU on Cipro. When the Patholoy came back positive for osteomyelitis, a PICC line was placed and he was started on Vancomycin and Zosyn. He finished his IV antibiotics on 12/17/17. He was discharged on Doxycycline and Levaquin. Pathology - acute and chronic osteomyelitis. On 11/14/17, he fell out of bed on his stump when he tried to maneuver into his wheelchair. He sustained a superficial wound dehiscence that is being treated with Aquacel Silver. His Prealbumin on 10/29/17 was 28.3. Encourage nutritional supplementation with protein to help the healing process. Today he denies any fever. His appetite is good. The ulcer is stable with good granulation tissue and no exposed bone. Will place an Epifix today. Progress of Wound: Slightly improved. - Physical Exam Vital Signs Temp Pulse Resp BP 97.5 F L 83 16 165/90 H 01/19/18 09:50 01/19/18 09:50 01/19/18 09:50 01/19/18 09:50 General: Alert, Oriented x3, Cooperative HEENT: Atraumatic Oral: Moist Mucosa Lungs: Normal air movement Cardiovascular: Regular rate Extremities: No edema, Capillary Refill Less than 3 Seconds Skin: Ulcer/ Wound - Left BKA stent Wound Measurements and Assessment WC - Nurse 1 - General Ulcer Measurement Start: 01/19/18 09:49 Freq: Status: Active Protocol: Activity Type Activity Date Activity User E-Sign Co-Sign Detail Recorded Client Recorded Date Recorded By Document 01/19/18 09:50 DL [id number] 01/19/18 09:55 DL 01/19/18 09:50 Wound Center Nurse 1 [Ulcer Assessment] #24 Left BKA dehisced incision -Combined with other wound No -Current Size (cm) - Length 1 -Current Size (cm) - Width 4 -Current Size (cm) - Depth 1.5 -Total Square Cm 4 -Photo Taken No -Tunneling Yes -Tunneling Position (O'clock) 9 -Tunneling Distance (cm) 2.2 -Tunneling Position #2 (O'clock) 12 -Tunneling Distance #2 (cm) 1.2 -Undermining/Tunneling No -Circular Undermining No -Exudate Amt Medium (34-66%) -Exudate Type Serosanguineous -Wound Margin Distinct, Outline Attached -Granulation Amt Medium (34-66%) -Granulation Quality Red -Slough/Fibrin Yes -Necrosis Amt Medium (34-66%) -Necrotic Tissue Type Adherent Slough -Structure Exposed None/Limited to Skin Breakdown -Texture (Yael-wound Skin Appearance) Assessed Scarring -Moisture (Yael-wound Skin Appearance No Abnormality ) Assessed -Color (Yael-wound Skin Appearance) No Abnormality Assessed -Temperature (Yael-wound Skin No Abnormality Appearance) (Pt Warm) -Tenderness on Palpation (Yael-wound No Skin Appearance) -Ulcer Cleansing soap -Foul Odor after Cleansing No -Anesthetic Used 5% Lidocaine Gel [Edema Assessment] -Lower Limb Edema Present NA WC - Nurse 2 - General Ulcer CM Notes Start: 01/19/18 09:49 Freq: Status: Active Protocol: Activity Type Activity Date Activity User E-Sign Co-Sign Detail Recorded Client Recorded Date Recorded By Document 01/19/18 10:28 MUSTAPHA [id number] 01/19/18 10:34 MUSTAPHA 01/19/18 10:28 Wound Center Nurse 2 [Procedure/Treatment] #24 Left BKA dehisced incision -Time 10:29 -Correct Patient Yes -Correct Side, Site, Position Yes -Correct Procedure Yes -Procedure Performed Yes -Type of Procedure Debridement -Clinical Debridement Subcutaneous -Post Debridement Size (cm) - Length 1.5 -Post Debridement Size (cm) - Width 4.6 -Post Debridement Size (cm) - Depth 1.5 -Total Square Cm 6.90 -Wound/Ulcer Outcome Not Healed -Ulcer Cleansing Rinsed/ Irrigated with Saline -Bioengineered Tissue Yes -Type of bioengineered Tissue EPIFIX -Expiration Date 07/18/22 -Product Lot Number [id number] -Percent Used 100 -Saline Lot Number [id number] -Bleeding Controlled with Pressure -Other 9:00--18.cm 2:00---1.2cm tunneling -Offloading Yes -Treatment Response Procedure Tolerated Well [See Physician Procedure note for Specifics] Pain Scale: 0-10 Numeric [Pain] -Is Patient Pain Free? Yes Musculoskeletal: No Tenderness to Palpation of Joints or Extremities, No Muscle Wasting Neurological: Neuro grossly intact Debridement Note Post-Debridement Measurements/Treatment WC - Nurse 2 - General Ulcer CM Notes Start: 01/19/18 09:49 Freq: Status: Active Protocol: Activity Type Activity Date Activity User E-Sign Co-Sign Detail Recorded Client Recorded Date Recorded By Document 01/19/18 10:28 MUSTAPHA [id number] 01/19/18 10:34 MUSTAPHA 01/19/18 10:28 Wound Center Nurse 2 #24 Left BKA dehisced incision -Time 10:29 -Correct Patient Yes -Correct Side, Site, Position Yes -Correct Procedure Yes -Procedure Performed Yes -Type of Procedure Debridement -Clinical Debridement Subcutaneous -Post Debridement Size (cm) - Length 1.5 -Post Debridement Size (cm) - Width 4.6 -Post Debridement Size (cm) - Depth 1.5 -Total Square Cm 6.90 -Wound/Ulcer Outcome Not Healed -Ulcer Cleansing Rinsed/ Irrigated with Saline -Bioengineered Tissue Yes -Type of bioengineered Tissue EPIFIX -Expiration Date 07/18/22 -Product Lot Number [id number] -Percent Used 100 -Saline Lot Number [id number] -Bleeding Controlled with Pressure -Other 9:00--18.cm 2:00---1.2cm tunneling -Offloading Yes -Treatment Response Procedure Tolerated Well Pain Scale: 0-10 Numeric Is Patient Pain Free? Yes Wound debrided: Left BKA Laterality: Left Type of Debridement: Excisional debridement Anesthesia Used: 4% Lidocaine Solution Depth: Down to and including healthy tissue, in the subcutaneous layer Percentage of wound debrided: 100 Instrument Used: 3mm curette Tissue Removed: Subcutaneous tissue and slough Severity: Fat Layer Exposed Amount of bleeding with debridement: Mild Bleeding Controlled with: Pressure Patient tolerated procedure well Assessment/Plan Active Problems (Last Reviewed 09/01/17 @ 13:36 by Shanique Martinez) Nonhealing ulcer of left lower extremity (Chronic) Osteomyelitis (Chronic) Diabetes mellitus (Chronic) Assessment: 1. Nonhealing ulcer left BKA stump after a fall. 2. Infection of left BKA stump. 3. Osteomyelitis. 4. MRSA. 5. Diabetes mellitus. 6. Former smoker. 7. s/p surgical preparation left BKA stump with excision dehiscence amputation stump ulcer and partial ostectomy tibia for osteomyelitis. 2. Reconstruction with re-advancement muscle flap and bipedicle periosteal anterior fascial advancement flap and secondary wound closure revision. Plan: The stump ulcer continues to improve slowly. Has good granulation tissue. No bone is exposed. Was approved for Epifix which was placed today which is the second week of skin substitute placement. 100% of product was used. The goal for placement of placental connective tissue graft is to try and stimulate healing of this nonhealing stump ulcer in a timely fashion before it has a chance to further erode down to the bone. He is finished with his antibiotics (Vancomycin and Zosyn) for osteomyelitis and for MRSA and Enterobacter cloacae. He was placed on Doxycycline and Levaquin and will continue them. His Prealbumin from 10/29/17 was 28.3. Encourage nutritional supplementation with protein to help the healing process. His HgbA1c is 6.7. He may also be a candidate for HBO treatments. Patient states he will think about it. He states he has done HBO in the past. Before any attempts at wound closure in the future, he would need a partial ostectomy of his tibial bone to evaluate for osteomyelitis. If we cannot eradicate the osteomyelitis in his tibial bone, he may ultimately need an AKA. Patient voices understanding and wants to pursue aggressive treatments in order to salvage the BKA stump. Followup one week with Dr. Slaby. Code Visit [id number]: [id number] Skin sub graft trnk/arm/leg
[2018-01-26 10:39] VITALS: BP 142/76; PULSE 83; RESP 20; TEMP 36.6; BMI 40.1
--- NOTE | 2018-01-26 23:31 | PCM.WC.PN ---
Type of Wound Date of Service: 01/26/18 Chief Complaint: Nonhealing ulcer left BKA stump after a fall. History of Wound: Surgery 10/28/17 - 1. Surgical preparation left BKA stump with excision dehiscence amputation stump ulcer and partial ostectomy tibia for osteomyelitis. 2. Reconstruction with re-advancement muscle flap and bipedicle periosteal anterior fascial advancement flap and secondary wound closure revision. Wound care - Epifix #2. Operative culture - Enterobacter cloacae in the soft tissue and bone. He was treated with Zosyn perioperatively and was sent to TCU on Cipro. When the Patholoy came back positive for osteomyelitis, a PICC line was placed and he was started on Vancomycin and Zosyn. He finished his IV antibiotics on 12/17/17. He was discharged on Doxycycline and Levaquin. Pathology - acute and chronic osteomyelitis. On 11/14/17, he fell out of bed on his stump when he tried to maneuver into his wheelchair. He sustained a superficial wound dehiscence that was treated initially with Aquacel Silver. He has started Epifix placental connective tissue grafts. He has had 2 applications. His Prealbumin on 10/29/17 was 28.3. Encourage nutritional supplementation with protein to help the healing process. Today he denies any fever. His appetite is good. The ulcer is stable with good granulation tissue and no exposed bone. Progress of Wound: Slightly improved. - Physical Exam Vital Signs Temp Pulse Resp BP 98 F 83 20 H 142/76 H 01/26/18 10:39 01/26/18 10:39 01/26/18 10:39 01/26/18 10:39 Wound Measurements and Assessment WC - Nurse 1 - General Ulcer Measurement Start: 01/19/18 09:49 Freq: Status: Active Protocol: Activity Type Activity Date Activity User E-Sign Co-Sign Detail Recorded Client Recorded Date Recorded By Document 01/26/18 10:39 DL [id number] 01/26/18 10:46 DL 01/26/18 10:39 Wound Center Nurse 1 [Ulcer Assessment] #24 Left BKA dehisced incision -Current Size (cm) - Length 1.1 -Current Size (cm) - Width 4.5 -Current Size (cm) - Depth 1.5 -Total Square Cm 4.95 -Photo Taken No -Tunneling Yes -Tunneling Position (O'clock) 1 -Tunneling Distance (cm) 3 -Tunneling Position #2 (O'clock) 9 -Tunneling Distance #2 (cm) 1.7 -Exudate Amt Large (67-100%) -Exudate Type Sanguineous -Wound Margin Thickened & Rolled Under -Granulation Amt Large (67-100%) -Granulation Quality Red -Necrosis Amt Small (1-33%) -Necrotic Tissue Type Adherent Slough -Structure Exposed N/A -Texture (Yael-wound Skin Appearance) No Abnormality Localized Edema Scarring -Moisture (Yael-wound Skin Appearance No Abnormality ) -Color (Yael-wound Skin Appearance) Ecchymosis -Temperature (Yael-wound Skin No Abnormality Appearance) (Pt Warm) -Tenderness on Palpation (Yael-wound No Skin Appearance) -Ulcer Cleansing Wound Cleanser -Foul Odor after Cleansing No -Anesthetic Used 4% Lidocaine Solution WC - Nurse 2 - General Ulcer CM Notes Start: 01/19/18 09:49 Freq: Status: Active Protocol: Activity Type Activity Date Activity User E-Sign Co-Sign Detail Recorded Client Recorded Date Recorded By Document 01/26/18 11:42 [id number] 01/26/18 11:44 01/26/18 11:42 Wound Center Nurse 2 [Procedure/Treatment] -Time 11:43 -Correct Patient Yes -Correct Side, Site, Position Yes -Correct Procedure Yes -Procedure Performed Yes -Type of Procedure Debridement -Clinical Debridement Subcutaneous -Post Debridement Size (cm) - Length 1.2 -Post Debridement Size (cm) - Width 4.5 -Post Debridement Size (cm) - Depth 1.5 -Total Square Cm 5.40 -Wound/Ulcer Outcome Not Healed -Ulcer Cleansing Rinsed/ Irrigated with Saline -Foul Odor after Cleansing No -Bioengineered Tissue Yes -Type of bioengineered Tissue EPIFIX -Expiration Date 09/17/22 -Product Lot Number [id number] -Percent Used 100 -Saline Lot Number [id number] -Bleeding Controlled with Pressure -Offloading No -Treatment Response Procedure Tolerated Well [See Physician Procedure note for Specifics] Pain Scale: 0-10 Numeric [Pain] -Is Patient Pain Free? Yes Debridement Note Post-Debridement Measurements/Treatment WC - Nurse 2 - General Ulcer CM Notes Start: 01/19/18 09:49 Freq: Status: Active Protocol: Activity Type Activity Date Activity User E-Sign Co-Sign Detail Recorded Client Recorded Date Recorded By Document 01/19/18 10:28 [id number] 01/19/18 10:34 Document 01/26/18 11:42 [id number] 01/26/18 11:44 01/19/18 01/26/18 10:28 11:42 Wound Center Nurse 2 #24 Left BKA dehisced incision -Time 10:29 11:43 -Correct Patient Yes Yes -Correct Side, Site, Position Yes Yes -Correct Procedure Yes Yes -Procedure Performed Yes Yes -Type of Procedure Debridement Debridement -Clinical Debridement Subcutaneous Subcutaneous -Post Debridement Size (cm) - Length 1.5 1.2 -Post Debridement Size (cm) - Width 4.6 4.5 -Post Debridement Size (cm) - Depth 1.5 1.5 -Total Square Cm 6.90 5.40 -Wound/Ulcer Outcome Not Healed Not Healed -Ulcer Cleansing Rinsed/ Rinsed/ Irrigated with Irrigated with Saline Saline -Foul Odor after Cleansing No -Bioengineered Tissue Yes Yes -Type of bioengineered Tissue EPIFIX EPIFIX -Expiration Date 07/18/22 09/17/22 -Product Lot Number [id number] -Percent Used 100 100 -Saline Lot Number [id number] -Bleeding Controlled with Pressure Pressure -Other 9:00--18.cm 2:00---1.2cm tunneling -Offloading Yes No -Treatment Response Procedure Procedure Tolerated Well Tolerated Well Pain Scale: 0-10 Numeric Is Patient Pain Free? Yes Yes Wound debrided: #24 Left BKA stump. Laterality: Left Wound Grade/Stage: 4. Type of Debridement: Excisional debridement Anesthesia Used: 4% Lidocaine Solution Depth: Down to and including healthy tissue, in the subcutaneous layer Percentage of wound debrided: 100 Instrument Used: 3mm curette Tissue Removed: subcutaneous tissue. Severity: Fat Layer Exposed Amount of bleeding with debridement: Mild Bleeding Controlled with: Pressure Patient tolerated procedure well - Placed Epifix #3 today. Product Lot Number - [id number]. I used 100% of the graft. Saline Lot Number - [id number]. Expiration - September 17, 2022. This was followed by a wound veil and steristrips. Assessment/Plan Assessment: 1. Nonhealing ulcer left BKA stump after a fall. 2. Infection of left BKA stump. 3. Osteomyelitis. 4. MRSA. 5. Diabetes mellitus. 6. Former smoker. 7. s/p surgical preparation left BKA stump with excision dehiscence amputation stump ulcer and partial ostectomy tibia for osteomyelitis and reconstruction with re-advancement muscle flap and bipedicle periosteal anterior fascial advancement flap and secondary wound closure revision. Plan: The stump ulcer continues to improve slowly. Has good granulation tissue. No bone is exposed. Epifix placental connective tissue graft was applied today. It was application #3. Will continue placement of Epifix next week. The goal for placement of placental connective tissue graft is to try and stimulate healing of this nonhealing stump ulcer in a timely fashion before it has a chance to further erode down to the bone. He is finished with his antibiotics (Vancomycin and Zosyn) for osteomyelitis and for MRSA and Enterobacter cloacae. He was placed on Doxycycline and Levaquin and will continue them. His Prealbumin from 10/29/17 was 28.3. Encourage nutritional supplementation with protein to help the healing process. His HgbA1c is 6.7. He may also be a candidate for HBO treatments. Patient states he will think about it. He states he has done HBO in the past. Before any attempts at wound closure in the future, he would need a partial ostectomy of his tibial bone to evaluate for osteomyelitis. If we cannot eradicate the osteomyelitis in his tibial bone, he may ultimately need an AKA. Patient voices understanding and wants to pursue aggressive treatments in order to salvage the BKA stump. Followup one week.
[2018-02-02 10:45] VITALS: BP 166/76; PULSE 81; RESP 20; TEMP 37.2; BMI 40.1
--- NOTE | 2018-02-02 19:13 | PCM.WC.PN ---
Type of Wound Date of Service: 02/02/18 Chief Complaint: Nonhealing ulcer left BKA stump after a fall. History of Wound: Surgery 10/28/17 - 1. Surgical preparation left BKA stump with excision dehiscence amputation stump ulcer and partial ostectomy tibia for osteomyelitis. 2. Reconstruction with re-advancement muscle flap and bipedicle periosteal anterior fascial advancement flap and secondary wound closure revision. Wound care - Epifix #3. Operative culture - Enterobacter cloacae in the soft tissue and bone. He was treated with Zosyn perioperatively and was sent to TCU on Cipro. When the Patholoy came back positive for osteomyelitis, a PICC line was placed and he was started on Vancomycin and Zosyn. He finished his IV antibiotics on 12/17/17. He was discharged on Doxycycline and Levaquin. Pathology - acute and chronic osteomyelitis. On 11/14/17, he fell out of bed on his stump when he tried to maneuver into his wheelchair. He sustained a superficial wound dehiscence that was treated initially with Aquacel Silver. He has started Epifix placental connective tissue grafts. He has had 3 applications. His Prealbumin on 10/29/17 was 28.3. Encourage nutritional supplementation with protein to help the healing process. Today he denies any fever. His appetite is good. The ulcer is stable with good granulation tissue and no exposed bone. Progress of Wound: Slightly improved. - Physical Exam Vital Signs Temp Pulse Resp BP 98.9 F 81 20 H 166/76 H 02/02/18 10:45 02/02/18 10:45 02/02/18 10:45 02/02/18 10:45 Wound Measurements and Assessment WC - Nurse 1 - General Ulcer Measurement Start: 01/19/18 09:49 Freq: Status: Active Protocol: Activity Type Activity Date Activity User E-Sign Co-Sign Detail Recorded Client Recorded Date Recorded By Document 02/02/18 10:45 DL [id number] 02/02/18 10:53 DL 02/02/18 10:45 Wound Center Nurse 1 [Ulcer Assessment] #24 Left BKA dehisced incision -Current Size (cm) - Length 0.9 -Current Size (cm) - Width 3 -Current Size (cm) - Depth 0.4 -Total Square Cm 2.7 -Photo Taken No -Tunneling Position (O'clock) 1 -Tunneling Distance (cm) 2.7 -Tunneling Position #2 (O'clock) 9 -Tunneling Distance #2 (cm) 2.2 -Exudate Amt Medium (34-66%) -Exudate Type Serosanguineous -Wound Margin Thickened -Granulation Amt Large (67-100%) -Granulation Quality [address] Red -Necrosis Amt Small (1-33%) -Necrotic Tissue Type Adherent Slough -Structure Exposed N/A -Texture (Yael-wound Skin Appearance) Scarring -Moisture (Yael-wound Skin Appearance No Abnormality ) Dry/Scaly -Color (Yael-wound Skin Appearance) No Abnormality -Temperature (Yael-wound Skin No Abnormality Appearance) (Pt Warm) -Tenderness on Palpation (Yael-wound No Skin Appearance) -Ulcer Cleansing Wound Cleanser -Foul Odor after Cleansing No -Anesthetic Used 4% Lidocaine Solution WC - Nurse 2 - General Ulcer CM Notes Start: 01/19/18 09:49 Freq: Status: Active Protocol: Activity Type Activity Date Activity User E-Sign Co-Sign Detail Recorded Client Recorded Date Recorded By Document 02/02/18 11:09 DL [id number] 02/02/18 11:10 DL 02/02/18 11:09 Wound Center Nurse 2 [Procedure/Treatment] -Time 11:09 -Correct Patient Yes -Correct Side, Site, Position Yes -Correct Procedure Yes -Procedure Performed Yes -Type of Procedure Debridement -Clinical Debridement Subcutaneous -Post Debridement Size (cm) - Length 1.6 -Post Debridement Size (cm) - Width 4 -Post Debridement Size (cm) - Depth 0.7 -Total Square Cm 6.4 -Wound/Ulcer Outcome Not Healed -Ulcer Cleansing Rinsed/ Irrigated with Saline -Foul Odor after Cleansing No -Bioengineered Tissue Yes -Type of bioengineered Tissue EPIFIX -Expiration Date 09/17/22 -Product Lot Number [id number] -Percent Used 100 -Saline Lot Number [id number] -Bleeding Controlled with Pressure -Offloading No -Treatment Response Procedure Tolerated Well [See Physician Procedure note for Specifics] Debridement Note Post-Debridement Measurements/Treatment WC - Nurse 2 - General Ulcer CM Notes Start: 01/19/18 09:49 Freq: Status: Active Protocol: Activity Type Activity Date Activity User E-Sign Co-Sign Detail Recorded Client Recorded Date Recorded By Document 01/19/18 10:28 [id number] 01/19/18 10:34 JF Document 01/26/18 11:42 [id number] 01/26/18 11:44 JF Document 02/02/18 11:09 DL [id number] 02/02/18 11:10 DL 01/19/18 01/26/18 02/02/18 10:28 11:42 11:09 Wound Center Nurse 2 #24 Left BKA dehisced incision -Time 10:29 11:43 11:09 -Correct Patient Yes Yes Yes -Correct Side, Site, Position Yes Yes Yes -Correct Procedure Yes Yes Yes -Procedure Performed Yes Yes Yes -Type of Procedure Debridement Debridement Debridement -Clinical Debridement Subcutaneous Subcutaneous Subcutaneous -Post Debridement Size (cm) - Length 1.5 1.2 1.6 -Post Debridement Size (cm) - Width 4.6 4.5 4 -Post Debridement Size (cm) - Depth 1.5 1.5 0.7 -Total Square Cm 6.90 5.40 6.4 -Wound/Ulcer Outcome Not Healed Not Healed Not Healed -Ulcer Cleansing Rinsed/ Rinsed/ Rinsed/ Irrigated with Irrigated with Irrigated with Saline Saline Saline -Foul Odor after Cleansing No No -Bioengineered Tissue Yes Yes Yes -Type of bioengineered Tissue EPIFIX EPIFIX EPIFIX -Expiration Date 07/18/22 09/17/22 09/17/22 -Product Lot Number [id number] -Percent Used 100 100 100 -Saline Lot Number [id number] -Bleeding Controlled with Pressure Pressure Pressure -Other 9:00--18.cm 2:00---1.2cm tunneling -Offloading Yes No No -Treatment Response Procedure Procedure Procedure Tolerated Well Tolerated Well Tolerated Well Pain Scale: 0-10 Numeric Is Patient Pain Free? Yes Yes Wound debrided: #24 Left BKA stump. Laterality: Left Wound Grade/Stage: 4. Type of Debridement: Excisional debridement Anesthesia Used: 4% Lidocaine Solution Depth: Down to and including healthy tissue, in the subcutaneous layer Percentage of wound debrided: 100 Instrument Used: 3mm curette Tissue Removed: subcutaneous tissue. Severity: Fat Layer Exposed Amount of bleeding with debridement: Mild Bleeding Controlled with: Pressure Patient tolerated procedure well, - - Placed Epifix #4 today. Product Lot Number - [id number]. I used 100% of the graft. Saline Lot Number - [id number]. Expiration - September 17, 2022. This was followed by a wound veil and steristrips. Assessment/Plan Assessment: 1. Nonhealing ulcer left BKA stump after a fall. 2. Infection of left BKA stump. 3. Osteomyelitis. 4. MRSA. 5. Diabetes mellitus. 6. Former smoker. 7. s/p surgical preparation left BKA stump with excision dehiscence amputation stump ulcer and partial ostectomy tibia for osteomyelitis and reconstruction with re-advancement muscle flap and bipedicle periosteal anterior fascial advancement flap and secondary wound closure revision. Plan: The stump ulcer continues to improve slowly. Has good granulation tissue. No bone is exposed. Epifix placental connective tissue graft was applied today. It was application #4. Will continue placement of Epifix next visit. The goal for placement of placental connective tissue graft is to try and stimulate healing of this nonhealing stump ulcer in a timely fashion before it has a chance to further erode down to the bone. He is finished with his antibiotics (Vancomycin and Zosyn) for osteomyelitis and for MRSA and Enterobacter cloacae. He was placed on Doxycycline and Levaquin and will continue them. His Prealbumin from 10/29/17 was 28.3. Encourage nutritional supplementation with protein to help the healing process. His HgbA1c is 6.7. He may also be a candidate for HBO treatments. Patient states he will think about it. He states he has done HBO in the past. Before any attempts at wound closure in the future, he would need a partial ostectomy of his tibial bone to evaluate for osteomyelitis. If we cannot eradicate the osteomyelitis in his tibial bone, he may ultimately need an AKA. Patient voices understanding and wants to pursue aggressive treatments in order to salvage the BKA stump. Followup 2 weeks.
[2018-02-16 08:59] VITALS: BP 146/87; PULSE 86; RESP 20; TEMP 36.4; BMI 40.1
--- NOTE | 2018-02-19 10:14 | PCM.WC.PN ---
(1) Nonhealing ulcer of left lower extremity Status: Chronic Code(s): L97.929 - Non-pressure chronic ulcer of unspecified part of left lower leg with unspecified severity (2) Osteomyelitis Status: Chronic Code(s): M86.9 - Osteomyelitis, unspecified (3) Diabetes mellitus Status: Chronic Qualifiers: Code(s): E11.9 - Type 2 diabetes mellitus without complications (4) MRSA (methicillin resistant Staphylococcus aureus) infection Status: Chronic Code(s): A49.02 - Methicillin resistant Staphylococcus aureus infection, unspecified site Type of Wound Date of Service: 02/16/18 Chief Complaint: Nonhealing ulcer left BKA stump after a fall. History of Wound: Surgery 10/28/17 - 1. Surgical preparation left BKA stump with excision dehiscence amputation stump ulcer and partial ostectomy tibia for osteomyelitis. 2. Reconstruction with re-advancement muscle flap and bipedicle periosteal anterior fascial advancement flap and secondary wound closure revision. Wound care - Epifix #4. Operative culture - Enterobacter cloacae in the soft tissue and bone. He was treated with Zosyn perioperatively and was sent to TCU on Cipro. When the Patholoy came back positive for osteomyelitis, a PICC line was placed and he was started on Vancomycin and Zosyn. He finished his IV antibiotics on 12/17/17. He was discharged on Doxycycline and Levaquin. Pathology - acute and chronic osteomyelitis. On 11/14/17, he fell out of bed on his stump when he tried to maneuver into his wheelchair. He sustained a superficial wound dehiscence that was treated initially with Aquacel Silver. He has started Epifix placental connective tissue grafts. He has had 4 applications. His Prealbumin on 10/29/17 was 28.3. Encourage nutritional supplementation with protein to help the healing process. Today he denies any fever. His appetite is good. The ulcer is stable with good granulation tissue and no exposed bone. Progress of Wound: Slightly improved. - Physical Exam Vital Signs Temp Pulse Resp BP 97.5 F L 86 20 H 146/87 H 02/16/18 08:59 02/16/18 08:59 02/16/18 08:59 02/16/18 08:59 General: Alert, Oriented x3, Cooperative HEENT: Atraumatic Oral: Moist Mucosa Cardiovascular: Regular rate Extremities: No edema, Capillary Refill Less than 3 Seconds Skin: Ulcer/ Wound - Left BKA stump Wound Measurements and Assessment - Nurse 2 - General Ulcer CM Notes Start: 01/19/18 09:49 Freq: Status: Active Protocol: Activity Type Activity Date Activity User E-Sign Co-Sign Detail Recorded Client Recorded Date Recorded By Document 02/16/18 09:56 [id number] 02/16/18 09:57 02/16/18 09:56 Wound Center Nurse 2 [Procedure/Treatment] #24 Left BKA dehisced incision -Time 09:56 -Correct Patient Yes -Correct Side, Site, Position Yes -Correct Procedure Yes -Procedure Performed Yes -Type of Procedure Debridement -Clinical Debridement Subcutaneous -Post Debridement Size (cm) - Length 4.0 -Post Debridement Size (cm) - Width 1.8 -Post Debridement Size (cm) - Depth 0.5 -Total Square Cm 7.20 -Wound/Ulcer Outcome Not Healed -Ulcer Cleansing Rinsed/ Irrigated with Saline -Foul Odor after Cleansing No -Bioengineered Tissue Yes -Type of bioengineered Tissue EPIFIX -Expiration Date 09/17/22 -Product Lot Number [id number] -Percent Used 100 -Saline Lot Number [id number] -Bleeding Controlled with Pressure -Offloading No -Treatment Response Procedure Tolerated Well [See Physician Procedure note for Specifics] Pain Scale: 0-10 Numeric [Pain] -Is Patient Pain Free? Yes Musculoskeletal: No Tenderness to Palpation of Joints or Extremities Neurological: Neuro grossly intact Psych/Mental Status: Normal Affect, Appropriate Debridement Note Post-Debridement Measurements/Treatment - Nurse 2 - General Ulcer CM Notes Start: 01/19/18 09:49 Freq: Status: Active Protocol: Activity Type Activity Date Activity User E-Sign Co-Sign Detail Recorded Client Recorded Date Recorded By Document 01/19/18 10:28 [id number] 01/19/18 10:34 JF Document 01/26/18 11:42 [id number] 01/26/18 11:44 JF Document 02/02/18 11:09 DL [id number] 02/02/18 11:10 DL Document 02/16/18 09:56 [id number] 02/16/18 09:57 01/19/18 01/26/18 02/02/18 10:28 11:42 11:09 Wound Center Nurse 2 #24 Left BKA dehisced incision -Time 10:29 11:43 11:09 -Correct Patient Yes Yes Yes -Correct Side, Site, Position Yes Yes Yes -Correct Procedure Yes Yes Yes -Procedure Performed Yes Yes Yes -Type of Procedure Debridement Debridement Debridement -Clinical Debridement Subcutaneous Subcutaneous Subcutaneous -Post Debridement Size (cm) - Length 1.5 1.2 1.6 -Post Debridement Size (cm) - Width 4.6 4.5 4 -Post Debridement Size (cm) - Depth 1.5 1.5 0.7 -Total Square Cm 6.90 5.40 6.4 -Wound/Ulcer Outcome Not Healed Not Healed Not Healed -Ulcer Cleansing Rinsed/ Rinsed/ Rinsed/ Irrigated with Irrigated with Irrigated with Saline Saline Saline -Foul Odor after Cleansing No No -Bioengineered Tissue Yes Yes Yes -Type of bioengineered Tissue EPIFIX EPIFIX EPIFIX -Expiration Date 07/18/22 09/17/22 09/17/22 -Product Lot Number [id number] -Percent Used 100 100 100 -Saline Lot Number [id number] -Bleeding Controlled with Pressure Pressure Pressure -Other 9:00--18.cm 2:00---1.2cm tunneling -Offloading Yes No No -Treatment Response Procedure Procedure Procedure Tolerated Well Tolerated Well Tolerated Well Pain Scale: 0-10 Numeric Is Patient Pain Free? Yes Yes 18 09:56 Wound Center Nurse 2 #24 Left BKA dehisced incision -Time 09:56 -Correct Patient Yes -Correct Side, Site, Position Yes -Correct Procedure Yes -Procedure Performed Yes -Type of Procedure Debridement -Clinical Debridement Subcutaneous -Post Debridement Size (cm) - Length 4.0 -Post Debridement Size (cm) - Width 1.8 -Post Debridement Size (cm) - Depth 0.5 -Total Square Cm 7.20 -Wound/Ulcer Outcome Not Healed -Ulcer Cleansing Rinsed/ Irrigated with Saline -Foul Odor after Cleansing No -Bioengineered Tissue Yes -Type of bioengineered Tissue EPIFIX -Expiration Date 09/17/22 -Product Lot Number [id number] -Percent Used 100 -Saline Lot Number [id number] -Bleeding Controlled with Pressure -Other -Offloading No -Treatment Response Procedure Tolerated Well Pain Scale: 0-10 Numeric Is Patient Pain Free? Yes Wound debrided: Left BKA stump ulcer Laterality: Left Type of Debridement: Excisional debridement Anesthesia Used: 4% Lidocaine Solution Depth: Down to and including healthy tissue, in the subcutaneous layer Percentage of wound debrided: 100 Instrument Used: 7mm curette Tissue Removed: Subcutaneous tissue and slough Severity: Limited To Skin Breakdown Amount of bleeding with debridement: Mild Bleeding Controlled with: Pressure Patient tolerated procedure well Assessment/Plan Assessment: 1. Nonhealing ulcer left BKA stump after a fall. 2. Infection of left BKA stump. 3. Osteomyelitis. 4. MRSA. 5. Diabetes mellitus. 6. Former smoker. 7. s/p surgical preparation left BKA stump with excision dehiscence amputation stump ulcer and partial ostectomy tibia for osteomyelitis and reconstruction with re-advancement muscle flap and bipedicle periosteal anterior fascial advancement flap and secondary wound closure revision. Plan: The stump ulcer continues to improve slowly. Has good granulation tissue. No bone is exposed. Epifix placental connective tissue graft was applied today. It was application #5. Will continue placement of Epifix next visit. The goal for placement of placental connective tissue graft is to try and stimulate healing of this nonhealing stump ulcer in a timely fashion before it has a chance to further erode down to the bone. He is finished with his antibiotics (Vancomycin and Zosyn) for osteomyelitis and for MRSA and Enterobacter cloacae. He was placed on Doxycycline and Levaquin and will continue them. His Prealbumin from 10/29/17 was 28.3. Encourage nutritional supplementation with protein to help the healing process. His HgbA1c is 6.7. He may also be a candidate for HBO treatments. Patient states he will think about it. He states he has done HBO in the past. Before any attempts at wound closure in the future, he would need a partial ostectomy of his tibial bone to evaluate for osteomyelitis. If we cannot eradicate the osteomyelitis in his tibial bone, he may ultimately need an AKA. Patient voices understanding and wants to pursue aggressive treatments in order to salvage the BKA stump. CONCHIS wrap to stump. Followup 1 week. Code Visit [id number]: [id number] Skin sub graft trnk/arm/leg
--- NOTE | 2018-02-19 10:18 | PN.PCM_ITS ---
(1) Nonhealing ulcer of left lower extremity Status: Chronic Code(s): L97.929 - Non-pressure chronic ulcer of unspecified part of left lower leg with unspecified severity (2) Osteomyelitis Status: Chronic Code(s): M86.9 - Osteomyelitis, unspecified (3) Diabetes mellitus Status: Chronic Qualifiers: Code(s): E11.9 - Type 2 diabetes mellitus without complications (4) MRSA (methicillin resistant Staphylococcus aureus) infection Status: Chronic Code(s): A49.02 - Methicillin resistant Staphylococcus aureus infection, unspecified site Type of Wound Date of Service: 02/16/18 Chief Complaint: Nonhealing ulcer left BKA stump after a fall. History of Wound: Surgery 10/28/17 - 1. Surgical preparation left BKA stump with excision dehiscence amputation stump ulcer and partial ostectomy tibia for osteomyelitis. 2. Reconstruction with re-advancement muscle flap and bipedicle periosteal anterior fascial advancement flap and secondary wound closure revision. Wound care - Epifix #4. Operative culture - Enterobacter cloacae in the soft tissue and bone. He was treated with Zosyn perioperatively and was sent to TCU on Cipro. When the Patholoy came back positive for osteomyelitis, a PICC line was placed and he was started on Vancomycin and Zosyn. He finished his IV antibiotics on 12/17/17. He was discharged on Doxycycline and Levaquin. Pathology - acute and chronic osteomyelitis. On 11/14/17, he fell out of bed on his stump when he tried to maneuver into his wheelchair. He sustained a superficial wound dehiscence that was treated initially with Aquacel Silver. He has started Epifix placental connective tissue grafts. He has had 4 applications. His Prealbumin on 10/29/17 was 28.3. Encourage nutritional supplementation with protein to help the healing process. Today he denies any fever. His appetite is good. The ulcer is stable with good granulation tissue and no exposed bone. Progress of Wound: Slightly improved. - Physical Exam Vital Signs Temp Pulse Resp BP 97.5 F L 86 20 H 146/87 H 02/16/18 08:59 02/16/18 08:59 02/16/18 08:59 02/16/18 08:59 General: Alert, Oriented x3, Cooperative HEENT: Atraumatic Oral: Moist Mucosa Cardiovascular: Regular rate Extremities: No edema, Capillary Refill Less than 3 Seconds Skin: Ulcer/ Wound - Left BKA stump Wound Measurements and Assessment - Nurse 2 - General Ulcer CM Notes Start: 01/19/18 09:49 Freq: Status: Active Protocol: Activity Type Activity Date Activity User E-Sign Co-Sign Detail Recorded Client Recorded Date Recorded By Document 02/16/18 09:56 [id number] 02/16/18 09:57 02/16/18 09:56 Wound Center Nurse 2 [Procedure/Treatment] #24 Left BKA dehisced incision -Time 09:56 -Correct Patient Yes -Correct Side, Site, Position Yes -Correct Procedure Yes -Procedure Performed Yes -Type of Procedure Debridement -Clinical Debridement Subcutaneous -Post Debridement Size (cm) - Length 4.0 -Post Debridement Size (cm) - Width 1.8 -Post Debridement Size (cm) - Depth 0.5 -Total Square Cm 7.20 -Wound/Ulcer Outcome Not Healed -Ulcer Cleansing Rinsed/ Irrigated with Saline -Foul Odor after Cleansing No -Bioengineered Tissue Yes -Type of bioengineered Tissue EPIFIX -Expiration Date 09/17/22 -Product Lot Number [id number] -Percent Used 100 -Saline Lot Number [id number] -Bleeding Controlled with Pressure -Offloading No -Treatment Response Procedure Tolerated Well [See Physician Procedure note for Specifics] Pain Scale: 0-10 Numeric [Pain] -Is Patient Pain Free? Yes Musculoskeletal: No Tenderness to Palpation of Joints or Extremities Neurological: Neuro grossly intact Psych/Mental Status: Normal Affect, Appropriate Debridement Note Post-Debridement Measurements/Treatment - Nurse 2 - General Ulcer CM Notes Start: 01/19/18 09:49 Freq: Status: Active Protocol: Activity Type Activity Date Activity User E-Sign Co-Sign Detail Recorded Client Recorded Date Recorded By Document 01/19/18 10:28 [id number] 01/19/18 10:34 JF Document 01/26/18 11:42 [id number] 01/26/18 11:44 JF Document 02/02/18 11:09 DL [id number] 02/02/18 11:10 DL Document 02/16/18 09:56 [id number] 02/16/18 09:57 01/19/18 01/26/18 02/02/18 10:28 11:42 11:09 Wound Center Nurse 2 #24 Left BKA dehisced incision -Time 10:29 11:43 11:09 -Correct Patient Yes Yes Yes -Correct Side, Site, Position Yes Yes Yes -Correct Procedure Yes Yes Yes -Procedure Performed Yes Yes Yes -Type of Procedure Debridement Debridement Debridement -Clinical Debridement Subcutaneous Subcutaneous Subcutaneous -Post Debridement Size (cm) - Length 1.5 1.2 1.6 -Post Debridement Size (cm) - Width 4.6 4.5 4 -Post Debridement Size (cm) - Depth 1.5 1.5 0.7 -Total Square Cm 6.90 5.40 6.4 -Wound/Ulcer Outcome Not Healed Not Healed Not Healed -Ulcer Cleansing Rinsed/ Rinsed/ Rinsed/ Irrigated with Irrigated with Irrigated with Saline Saline Saline -Foul Odor after Cleansing No No -Bioengineered Tissue Yes Yes Yes -Type of bioengineered Tissue EPIFIX EPIFIX EPIFIX -Expiration Date 07/18/22 09/17/22 09/17/22 -Product Lot Number [id number] -Percent Used 100 100 100 -Saline Lot Number [id number] -Bleeding Controlled with Pressure Pressure Pressure -Other 9:00--18.cm 2:00---1.2cm tunneling -Offloading Yes No No -Treatment Response Procedure Procedure Procedure Tolerated Well Tolerated Well Tolerated Well Pain Scale: 0-10 Numeric Is Patient Pain Free? Yes Yes 18 09:56 Wound Center Nurse 2 #24 Left BKA dehisced incision -Time 09:56 -Correct Patient Yes -Correct Side, Site, Position Yes -Correct Procedure Yes -Procedure Performed Yes -Type of Procedure Debridement -Clinical Debridement Subcutaneous -Post Debridement Size (cm) - Length 4.0 -Post Debridement Size (cm) - Width 1.8 -Post Debridement Size (cm) - Depth 0.5 -Total Square Cm 7.20 -Wound/Ulcer Outcome Not Healed -Ulcer Cleansing Rinsed/ Irrigated with Saline -Foul Odor after Cleansing No -Bioengineered Tissue Yes -Type of bioengineered Tissue EPIFIX -Expiration Date 09/17/22 -Product Lot Number [id number] -Percent Used 100 -Saline Lot Number [id number] -Bleeding Controlled with Pressure -Other -Offloading No -Treatment Response Procedure Tolerated Well Pain Scale: 0-10 Numeric Is Patient Pain Free? Yes Wound debrided: Left BKA stump ulcer Laterality: Left Type of Debridement: Excisional debridement Anesthesia Used: 4% Lidocaine Solution Depth: Down to and including healthy tissue, in the subcutaneous layer Percentage of wound debrided: 100 Instrument Used: 7mm curette Tissue Removed: Subcutaneous tissue and slough Severity: Limited To Skin Breakdown Amount of bleeding with debridement: Mild Bleeding Controlled with: Pressure Patient tolerated procedure well Assessment/Plan Assessment: 1. Nonhealing ulcer left BKA stump after a fall. 2. Infection of left BKA stump. 3. Osteomyelitis. 4. MRSA. 5. Diabetes mellitus. 6. Former smoker. 7. s/p surgical preparation left BKA stump with excision dehiscence amputation stump ulcer and partial ostectomy tibia for osteomyelitis and reconstruction with re-advancement muscle flap and bipedicle periosteal anterior fascial advancement flap and secondary wound closure revision. Plan: The stump ulcer continues to improve slowly. Has good granulation tissue. No bone is exposed. Epifix placental connective tissue graft was applied today. It was application #5. Will continue placement of Epifix next visit. The goal for placement of placental connective tissue graft is to try and stimulate healing of this nonhealing stump ulcer in a timely fashion before it has a chance to further erode down to the bone. He is finished with his antibiotics (Vancomycin and Zosyn) for osteomyelitis and for MRSA and Enterobacter cloacae. He was placed on Doxycycline and Levaquin and will continue them. His Prealbumin from 10/29/17 was 28.3. Encourage nutritional supplementation with protein to help the healing process. His HgbA1c is 6.7. He may also be a candidate for HBO treatments. Patient states he will think about it. He states he has done HBO in the past. Before any attempts at wound closure in the future, he would need a partial ostectomy of his tibial bone to evaluate for osteomyelitis. If we cannot eradicate the osteomyelitis in his tibial bone, he may ultimately need an AKA. Patient voices understanding and wants to pursue aggressive treatments in order to salvage the BKA stump. CONCHIS wrap to stump. Followup 1 week. Code Visit [id number]: [id number] Skin sub graft trnk/arm/leg
== END 2018-02-16 23:59 ==
LOC: WC 09:00
PROVIDERS: Family Provider Family Medicine; PCP Family Medicine; Visit Provider Surgery
DX: T87.81 Dehiscence of amputation stump (principal); Y83.8 Other surgical procedures as the cause of abnormal reaction of the patient, or of later complication, without mention of misadventure at the time of the procedure; Z86.14 Personal history of Methicillin resistant Staphylococcus aureus infection; M86.68 Other chronic osteomyelitis, other site; Z87.891 Personal history of nicotine dependence; E11.69 Type 2 diabetes mellitus with other specified complication
CPT/HCPCS: 15271; Q4131

== ENCOUNTER → 2018-03-17 13:09 | Outpatient (CLI) | payer MEDICARE, SELFPAY ==
[2018-03-03 13:45] VITALS: BMI 40.1
--- NOTE | 2018-03-17 13:15 | RAD_ITS ---
STUDY: X-RAY - LEFT SHOULDER REASON FOR EXAM: Male, 62 years old. Pain TECHNIQUE: 4 view(s) of the shoulder. COMPARISON: None. FINDINGS: There is mild degenerative arthrosis of the glenohumeral articulation. There is degenerative arthrosis of the acromioclavicular joint without inferior osseous spur formation. Normal acromion. Normal humeral head and visualized proximal humerus. The soft tissue structures are unremarkable. There is no demonstrated fracture. Normal visualized pulmonary apex. RAD/Shoulder min 2 Views IMPRESSION: Degenerative change. Electronically Signed: Morgan Gonzaelz MD at 17:10 EST , Service support ,
--- NOTE | 2018-03-17 13:15 | RAD_ITS ---
STUDY: X-RAY - RIGHT SHOULDER REASON FOR EXAM: Male, 62 years old. Pain. TECHNIQUE: 4 view(s) of the shoulder. COMPARISON: None. FINDINGS: There is moderate degenerative arthrosis of the glenohumeral articulation. There is hypertrophic osteoarthrosis of the acromioclavicular joint with inferior osseous spur formation. Normal acromion. Normal humeral head and visualized proximal humerus. The soft tissue structures are unremarkable. There is no demonstrated fracture. Normal visualized pulmonary apex. RAD/Shoulder min 2 Views IMPRESSION: Degenerative change. Electronically Signed: Morgan Gonzalez MD at 17:09 EST , Service support ,
== END ==
PROVIDERS: Family Provider Family Medicine; PCP Family Medicine; Referring Provider Family Medicine; Visit Provider Family Medicine
DX: M25.511 Pain in right shoulder (principal); M25.512 Pain in left shoulder; G89.29 Other chronic pain; M86.662 Other chronic osteomyelitis, left tibia and fibula; T87.81 Dehiscence of amputation stump; Y83.8 Other surgical procedures as the cause of abnormal reaction of the patient, or of later complication, without mention of misadventure at the time of the procedure; Z86.14 Personal history of Methicillin resistant Staphylococcus aureus infection; Z87.891 Personal history of nicotine dependence; Z89.512 Acquired absence of left leg below knee
CPT/HCPCS: 11042; 73030; 97607

== ENCOUNTER 2018-03-17 14:45 | Outpatient (RCR) | payer MEDICARE, SELFPAY ==
[2018-02-17 01:17] VITALS: BP 146/87; PULSE 86; RESP 20; TEMP 36.4
[2018-02-24 14:33] VITALS: BP 161/79; PULSE 91; RESP 18; TEMP 36.6; BMI 40.1
--- NOTE | 2018-02-24 15:12 | PCM.WC.PN ---
(1) Nonhealing ulcer of left lower extremity Status: Chronic Code(s): L97.929 - Non-pressure chronic ulcer of unspecified part of left lower leg with unspecified severity (2) Osteomyelitis Status: Chronic Code(s): M86.9 - Osteomyelitis, unspecified (3) History of left below knee amputation Status: Chronic Code(s): Z89.512 - Acquired absence of left leg below knee (4) Personal history of Methicillin resistant Staphylococcus aureus infection Status: Chronic Code(s): Z86.14 - Personal history of Methicillin resistant Staphylococcus aureus infection Type of Wound Date of Service: 02/24/18 Chief Complaint: Nonhealing ulcer left BKA stump after a fall. History of Wound: Surgery 10/28/17 - 1. Surgical preparation left BKA stump with excision dehiscence amputation stump ulcer and partial ostectomy tibia for osteomyelitis. 2. Reconstruction with re-advancement muscle flap and bipedicle periosteal anterior fascial advancement flap and secondary wound closure revision. Wound care - Epifix. Operative culture - Enterobacter cloacae in the soft tissue and bone. He was treated with Zosyn perioperatively and was sent to TCU on Cipro. When the Patholoy came back positive for osteomyelitis, a PICC line was placed and he was started on Vancomycin and Zosyn. He finished his IV antibiotics on 12/17/17. He was discharged on Doxycycline and Levaquin. Pathology - acute and chronic osteomyelitis. On 11/14/17, he fell out of bed on his stump when he tried to maneuver into his wheelchair. He sustained a superficial wound dehiscence that was treated initially with Aquacel Silver. He has started Epifix placental connective tissue grafts. His Prealbumin on 10/29/17 was 28.3. Encourage nutritional supplementation with protein to help the healing process. Today he denies any fever. His appetite is good. The ulcer is stable with good granulation tissue and no exposed bone. Progress of Wound: Slightly improved. - Physical Exam Vital Signs Temp Pulse Resp BP 97.8 F 91 18 161/79 H 02/24/18 14:33 02/24/18 14:33 02/24/18 14:33 02/24/18 14:33 General: Alert, Oriented x3, Cooperative HEENT: Atraumatic Oral: Moist Mucosa Lungs: Normal air movement Extremities: No edema, Capillary Refill Less than 3 Seconds Skin: Ulcer/ Wound - Left BKA stump ulcer Wound Measurements and Assessment - Nurse 1 - General Ulcer Measurement Start: 02/24/18 14:32 Freq: Status: Active Protocol: Activity Type Activity Date Activity User E-Sign Co-Sign Detail Recorded Client Recorded Date Recorded By Document 02/24/18 14:33 CAROLINA [id number] 02/24/18 14:40 DV 02/24/18 14:33 Wound Center Nurse 1 [Ulcer Assessment] #24 Left BKA dehisced incision -Combined with other wound No -Current Size (cm) - Length 1.5 -Current Size (cm) - Width 3.5 -Current Size (cm) - Depth 0.4 -Total Square Cm 5.25 -Date of Last Picture (Recall this 02/24/18 field) -Photo Taken Yes -Epithelialization Small 1-33% -Tunneling No -Undermining/Tunneling No -Circular Undermining No -Exudate Amt Large (67-100%) -Structure Exposed None/Limited to Skin Breakdown -Texture (Yael-wound Skin Appearance) Assessed Scarring -Moisture (Yael-wound Skin Appearance Assessed ) Dry/Scaly -Color (Yael-wound Skin Appearance) No Abnormality Assessed -Temperature (Yael-wound Skin No Abnormality Appearance) (Pt Warm) -Ulcer Cleansing Rinsed/ Irrigated with Saline -Foul Odor after Cleansing No -Anesthetic Used 4% Lidocaine Solution - Nurse 2 - General Ulcer CM Notes Start: 02/24/18 14:32 Freq: Status: Active Protocol: Activity Type Activity Date Activity User E-Sign Co-Sign Detail Recorded Client Recorded Date Recorded By Document 02/24/18 14:53 MUSTAPHA [id number] 02/24/18 14:59 02/24/18 14:53 Wound Center Nurse 2 [Procedure/Treatment] -Time 14:54 -Correct Patient Yes -Correct Side, Site, Position Yes -Correct Procedure Yes -Procedure Performed Yes -Type of Procedure Debridement -Clinical Debridement Subcutaneous -Post Debridement Size (cm) - Length 1.5 -Post Debridement Size (cm) - Width 3.6 -Post Debridement Size (cm) - Depth 2.0 -Total Square Cm 5.40 -Wound/Ulcer Outcome Not Healed -Ulcer Cleansing Rinsed/ Irrigated with Saline -Foul Odor after Cleansing No -Bioengineered Tissue Yes -Type of bioengineered Tissue EPIFIX -Expiration Date 09/17/22 -Product Lot Number [id number] -Percent Used 100 -Saline Lot Number [id number] -Bleeding Controlled with Pressure -Other 9:00-2cm -Offloading No -Treatment Response Procedure Tolerated Well [See Physician Procedure note for Specifics] Pain Scale: 0-10 Numeric [Pain] -Is Patient Pain Free? Yes Debridement Note Post-Debridement Measurements/Treatment WC - Nurse 2 - General Ulcer CM Notes Start: 02/24/18 14:32 Freq: Status: Active Protocol: Activity Type Activity Date Activity User E-Sign Co-Sign Detail Recorded Client Recorded Date Recorded By Document 02/24/18 14:53 [id number] 02/24/18 14:59 MUSTAPHA 02/24/18 14:53 Wound Center Nurse 2 #24 Left BKA dehisced incision -Time 14:54 -Correct Patient Yes -Correct Side, Site, Position Yes -Correct Procedure Yes -Procedure Performed Yes -Type of Procedure Debridement -Clinical Debridement Subcutaneous -Post Debridement Size (cm) - Length 1.5 -Post Debridement Size (cm) - Width 3.6 -Post Debridement Size (cm) - Depth 2.0 -Total Square Cm 5.40 -Wound/Ulcer Outcome Not Healed -Ulcer Cleansing Rinsed/ Irrigated with Saline -Foul Odor after Cleansing No -Bioengineered Tissue Yes -Type of bioengineered Tissue EPIFIX -Expiration Date 09/17/22 -Product Lot Number [id number] -Percent Used 100 -Saline Lot Number [id number] -Bleeding Controlled with Pressure -Other 9:00-2cm -Offloading No -Treatment Response Procedure Tolerated Well Pain Scale: 0-10 Numeric Is Patient Pain Free? Yes Wound debrided: Left stump Laterality: Left Type of Debridement: Excisional debridement Anesthesia Used: 4% Lidocaine Solution Depth: Down to and including healthy tissue, in the subcutaneous layer Percentage of wound debrided: 100 Instrument Used: 3mm curette Tissue Removed: Subcutaneous tissue and slough Severity: Limited To Skin Breakdown Amount of bleeding with debridement: Mild Bleeding Controlled with: Pressure Patient tolerated procedure well Assessment/Plan Assessment: 1. Nonhealing ulcer left BKA stump after a fall. 2. Infection of left BKA stump. 3. Osteomyelitis. 4. MRSA. 5. Diabetes mellitus. 6. Former smoker. 7. s/p surgical preparation left BKA stump with excision dehiscence amputation stump ulcer and partial ostectomy tibia for osteomyelitis and reconstruction with re-advancement muscle flap and bipedicle periosteal anterior fascial advancement flap and secondary wound closure revision. Plan: The stump ulcer continues to improve slowly. Has good granulation tissue. No bone is exposed. Epifix placental connective tissue graft was applied today. Will continue placement of Epifix next visit. The goal for placement of placental connective tissue graft is to try and stimulate healing of this nonhealing stump ulcer in a timely fashion before it has a chance to further erode down to the bone. He is finished with his antibiotics (Vancomycin and Zosyn) for osteomyelitis and for MRSA and Enterobacter cloacae. He was placed on Doxycycline and Levaquin and will continue them. His Prealbumin from 10/29/17 was 28.3. Encourage nutritional supplementation with protein to help the healing process. His HgbA1c is 6.7. He may also be a candidate for HBO treatments. Patient states he will think about it. He states he has done HBO in the past. Before any attempts at wound closure in the future, he would need a partial ostectomy of his tibial bone to evaluate for osteomyelitis. If we cannot eradicate the osteomyelitis in his tibial bone, he may ultimately need an AKA. Patient voices understanding and wants to pursue aggressive treatments in order to salvage the BKA stump. Followup 1 week. Code Visit [id number]: [id number] Skin sub graft trnk/arm/leg
[2018-03-03 13:45] VITALS: BP 158/86; PULSE 94; RESP 18; TEMP 36.2; BMI 40.1
--- NOTE | 2018-03-03 14:24 | PCM.WC.PN ---
(1) Nonhealing ulcer of left lower extremity Status: Chronic Current Visit: Yes Code(s): L97.929 - Non-pressure chronic ulcer of unspecified part of left lower leg with unspecified severity (2) Osteomyelitis Status: Chronic Current Visit: Yes Code(s): M86.9 - Osteomyelitis, unspecified (3) History of left below knee amputation Status: Chronic Current Visit: Yes Code(s): Z89.512 - Acquired absence of left leg below knee (4) Personal history of Methicillin resistant Staphylococcus aureus infection Status: Chronic Current Visit: Yes Code(s): Z86.14 - Personal history of Methicillin resistant Staphylococcus aureus infection Type of Wound Date of Service: 03/02/18 Chief Complaint: Nonhealing ulcer left BKA stump after a fall. History of Wound: Surgery 10/28/17 - 1. Surgical preparation left BKA stump with excision dehiscence amputation stump ulcer and partial ostectomy tibia for osteomyelitis. 2. Reconstruction with re-advancement muscle flap and bipedicle periosteal anterior fascial advancement flap and secondary wound closure revision. Wound care - Epifix. Operative culture - Enterobacter cloacae in the soft tissue and bone. He was treated with Zosyn perioperatively and was sent to TCU on Cipro. When the Patholoy came back positive for osteomyelitis, a PICC line was placed and he was started on Vancomycin and Zosyn. He finished his IV antibiotics on 12/17/17. He was discharged on Doxycycline and Levaquin. Pathology - acute and chronic osteomyelitis. On 11/14/17, he fell out of bed on his stump when he tried to maneuver into his wheelchair. He sustained a superficial wound dehiscence that was treated initially with Aquacel Silver. He has started Epifix placental connective tissue grafts, but with the new year, waiting for approval again from his insurance company. His Prealbumin on 10/29/17 was 28.3. Encourage nutritional supplementation with protein to help the healing process. Today he denies any fever. His appetite is good. The ulcer is stable with good granulation tissue and no exposed bone. Progress of Wound: Slightly improved. - Physical Exam Vital Signs Temp Pulse Resp BP 97.2 F L 94 18 158/86 H 03/03/18 13:45 03/03/18 13:45 03/03/18 13:45 03/03/18 13:45 General: Alert, Oriented x3, Cooperative HEENT: Atraumatic Oral: Moist Mucosa Extremities: No edema, Capillary Refill Less than 3 Seconds Skin: Ulcer/ Wound - Left BKA stump open area with tunnel at 9 o'clock (which is smaller than last week). Wound Measurements and Assessment WC - Nurse 1 - General Ulcer Measurement Start: 02/24/18 14:32 Freq: Status: Active Protocol: Activity Type Activity Date Activity User E-Sign Co-Sign Detail Recorded Client Recorded Date Recorded By Document 03/03/18 13:45 DL [id number] 03/03/18 14:01 DL 03/03/18 13:45 Wound Center Nurse 1 [Ulcer Assessment] #24 Left BKA dehisced incision -Current Size (cm) - Length 1.2 -Current Size (cm) - Width 3.2 -Current Size (cm) - Depth 0.4 -Total Square Cm 3.84 -Photo Taken No -Tunneling Position (O'clock) 9 -Tunneling Distance (cm) 2.1 -Tunneling Position #2 (O'clock) 1 -Tunneling Distance #2 (cm) 0.3 -Exudate Amt Medium -Exudate Type Serosanguineous -Wound Margin Thickened & Rolled Under -Granulation Amt Medium (34-66%) -Granulation Quality [place] -Necrosis Amt Medium (34-66%) -Necrotic Tissue Type Adherent Slough -Structure Exposed N/A -Texture (Yael-wound Skin Appearance) Scarring -Moisture (Yael-wound Skin Appearance Dry/Scaly ) -Color (Yael-wound Skin Appearance) Hemosiderin Staining -Temperature (Yael-wound Skin No Abnormality Appearance) (Pt Warm) -Tenderness on Palpation (Yael-wound No Skin Appearance) -Ulcer Cleansing Wound Cleanser -Foul Odor after Cleansing No -Anesthetic Used 4% Lidocaine Solution WC - Nurse 2 - General Ulcer CM Notes Start: 02/24/18 14:32 Freq: Status: Active Protocol: Activity Type Activity Date Activity User E-Sign Co-Sign Detail Recorded Client Recorded Date Recorded By Document 03/03/18 14:14 MUSTAPHA [id number] 03/03/18 14:15 MUSTAPHA 03/03/18 14:14 Wound Center Nurse 2 [Procedure/Treatment] -Time 14:14 -Correct Patient Yes -Correct Side, Site, Position Yes -Correct Procedure Yes -Procedure Performed Yes -Type of Procedure Debridement -Clinical Debridement Subcutaneous -Post Debridement Size (cm) - Length 1.4 -Post Debridement Size (cm) - Width 3.7 -Post Debridement Size (cm) - Depth 0.5 -Total Square Cm 5.18 -Wound/Ulcer Outcome Not Healed -Ulcer Cleansing Rinsed/ Irrigated with Saline -Foul Odor after Cleansing No -Bioengineered Tissue No -Bleeding Controlled with Pressure -Other 9:00--2.4cm -Offloading No -Treatment Response Procedure Tolerated Well [See Physician Procedure note for Specifics] Pain Scale: 0-10 Numeric [Pain] -Is Patient Pain Free? Yes Musculoskeletal: No Tenderness to Palpation of Joints or Extremities Neurological: Neuro grossly intact Psych/Mental Status: Normal Affect, Appropriate Debridement Note Post-Debridement Measurements/Treatment WC - Nurse 2 - General Ulcer CM Notes Start: 02/24/18 14:32 Freq: Status: Active Protocol: Activity Type Activity Date Activity User E-Sign Co-Sign Detail Recorded Client Recorded Date Recorded By Document 02/24/18 14:53 [email or web address] 02/24/18 14:59 Document 03/03/18 14:14 [id number] 03/03/18 14:15 02/24/18 03/03/18 14:53 14:14 Wound Center Nurse 2 #24 Left BKA dehisced incision -Time 14:54 14:14 -Correct Patient Yes Yes -Correct Side, Site, Position Yes Yes -Correct Procedure Yes Yes -Procedure Performed Yes Yes -Type of Procedure Debridement Debridement -Clinical Debridement Subcutaneous Subcutaneous -Post Debridement Size (cm) - Length 1.5 1.4 -Post Debridement Size (cm) - Width 3.6 3.7 -Post Debridement Size (cm) - Depth 2.0 0.5 -Total Square Cm 5.40 5.18 -Wound/Ulcer Outcome Not Healed Not Healed -Ulcer Cleansing Rinsed/ Rinsed/ Irrigated with Irrigated with Saline Saline -Foul Odor after Cleansing No No -Bioengineered Tissue Yes No -Type of bioengineered Tissue EPIFIX -Expiration Date 09/17/22 -Product Lot Number [id number] -Percent Used 100 -Saline Lot Number [id number] -Bleeding Controlled with Pressure Pressure -Other 9:00-2cm 9:00--2.4cm -Offloading No No -Treatment Response Procedure Procedure Tolerated Well Tolerated Well Pain Scale: 0-10 Numeric Is Patient Pain Free? Yes Yes Wound debrided: Left BKA stump Laterality: Left Type of Debridement: Excisional debridement Anesthesia Used: 4% Lidocaine Solution Depth: Down to and including healthy tissue, in the subcutaneous layer Percentage of wound debrided: 100 Instrument Used: 7mm curette Tissue Removed: Subcutaneous tissue and slough Severity: Fat Layer Exposed Amount of bleeding with debridement: Mild Bleeding Controlled with: Pressure Patient tolerated procedure well Assessment/Plan Active Problems (Last Reviewed 09/01/17 @ 13:36 by Shanique Martinez) Nonhealing ulcer of left lower extremity (Chronic) Osteomyelitis (Chronic) Personal history of Methicillin resistant Staphylococcus aureus infection (Chronic) History of left below knee amputation (Chronic) Assessment: 1. Nonhealing ulcer left BKA stump after a fall. 2. Infection of left BKA stump. 3. Osteomyelitis. 4. MRSA. 5. Diabetes mellitus. 6. Former smoker. 7. s/p surgical preparation left BKA stump with excision dehiscence amputation stump ulcer and partial ostectomy tibia for osteomyelitis and reconstruction with re-advancement muscle flap and bipedicle periosteal anterior fascial advancement flap and secondary wound closure revision. Plan: The stump ulcer continues to improve slowly. Has good granulation tissue. No bone is exposed. Epifix placental connective tissue graft was not applied today due to waiting for insurance approval because of the new year starting. Will use silver dressing daily this week. Will continue placement of Epifix next visit. The goal for placement of placental connective tissue graft is to try and stimulate healing of this nonhealing stump ulcer in a timely fashion before it has a chance to further erode down to the bone. He would also benefit from the use of SNAP negative pressure dressing to help keep keep wound bed dry and help with the tunneling. He is finished with his antibiotics (Vancomycin and Zosyn) for osteomyelitis and for MRSA and Enterobacter cloacae. He was placed on Doxycycline and Levaquin and will continue them. His Prealbumin from 10/29/17 was 28.3. Encourage nutritional supplementation with protein to help the healing process. His HgbA1c is 6.7. He may also be a candidate for HBO treatments. Patient states he will think about it. He states he has done HBO in the past. Before any attempts at wound closure in the future, he would need a partial ostectomy of his tibial bone to evaluate for osteomyelitis. If we cannot eradicate the osteomyelitis in his tibial bone, he may ultimately need an AKA. Patient voices understanding and wants to pursue aggressive treatments in order to salvage the BKA stump. Followup 1 week. Code Visit 111xxx-113xx: [id number] Aimee subq tissue 20 sq cm/<
[2018-03-17 13:55] VITALS: BP 161/77; PULSE 96; RESP 20; TEMP 36.6; BMI 40.1
--- NOTE | 2018-03-17 14:04 | PN.PCM_ITS ---
(1) Nonhealing ulcer of left lower extremity Status: Chronic Current Visit: Yes Code(s): L97.929 - Non-pressure chronic ulcer of unspecified part of left lower leg with unspecified severity (2) Osteomyelitis Status: Chronic Current Visit: Yes Code(s): M86.9 - Osteomyelitis, unspecified (3) History of left below knee amputation Status: Chronic Current Visit: Yes Code(s): Z89.512 - Acquired absence of left leg below knee (4) Personal history of Methicillin resistant Staphylococcus aureus infection Status: Chronic Current Visit: Yes Code(s): Z86.14 - Personal history of Methicillin resistant Staphylococcus aureus infection Type of Wound Date of Service: 03/17/18 Chief Complaint: Nonhealing ulcer left BKA stump after a fall. History of Wound: Surgery 10/28/17 - 1. Surgical preparation left BKA stump with excision dehiscence amputation stump ulcer and partial ostectomy tibia for osteomyelitis. 2. Reconstruction with re-advancement muscle flap and bipedicle periosteal anterior fascial advancement flap and secondary wound closure revision. Wound care - Epifix. Operative culture - Enterobacter cloacae in the soft tissue and bone. He was treated with Zosyn perioperatively and was sent to TCU on Cipro. When the Patholoy came back positive for osteomyelitis, a PICC line was placed and he was started on Vancomycin and Zosyn. He finished his IV antibiotics on 12/17/17. He was discharged on Doxycycline and Levaquin. Pathology - acute and chronic osteomyelitis. On 11/14/17, he fell out of bed on his stump when he tried to maneuver into his wheelchair. He sustained a superficial wound dehiscence that was treated initially with Aquacel Silver. He has started Epifix placental connective tissue grafts, but with the new year, waiting for approval again from his insurance company. His Prealbumin on 10/29/17 was 28.3. Encourage nutritional supplementation with protein to help the healing process. Today he denies any fever. His appetite is good. The ulcer is stable with good granulation tissue and no exposed bone. Progress of Wound: Mild improvement. Continues to have tunneling at 9 o'clock position. - Physical Exam Vital Signs Temp Pulse Resp BP 97.8 F 96 20 H 161/77 H 03/17/18 13:55 03/17/18 13:55 03/17/18 13:55 03/17/18 13:55 General: Alert, Oriented x3, Cooperative HEENT: Atraumatic Oral: Moist Mucosa Lungs: Normal air movement Cardiovascular: Regular rate Extremities: No edema, Capillary Refill Less than 3 Seconds Skin: Ulcer/ Wound - Left stump Wound Measurements and Assessment WC - Nurse 1 - General Ulcer Measurement Start: 02/24/18 14:32 Freq: Status: Active Protocol: Activity Type Activity Date Activity User E-Sign Co-Sign Detail Recorded Client Recorded Date Recorded By Document 03/17/18 13:55 DL [id number] 03/17/18 14:02 DL 03/17/18 13:55 Wound Center Nurse 1 [Ulcer Assessment] #24 Left BKA dehisced incision -Current Size (cm) - Length 0.6 -Current Size (cm) - Width 3 -Current Size (cm) - Depth 0.3 -Total Square Cm 1.8 -Photo Taken No -Tunneling Position (O'clock) 9 -Tunneling Distance (cm) 2.6 -Exudate Amt Small -Exudate Type Serosanguineous -Wound Margin Thickened -Granulation Amt Large (67-100%) -Granulation Quality [place] -Necrosis Amt Small (1-33%) -Necrotic Tissue Type Adherent Slough -Structure Exposed N/A -Texture (Yael-wound Skin Appearance) Scarring -Moisture (Yael-wound Skin Appearance Dry/Scaly ) -Color (Yael-wound Skin Appearance) No Abnormality -Temperature (Yael-wound Skin No Abnormality Appearance) (Pt Warm) -Tenderness on Palpation (Yael-wound No Skin Appearance) -Ulcer Cleansing Rinsed/ Irrigated with Saline -Foul Odor after Cleansing No -Anesthetic Used 4% Lidocaine Solution Musculoskeletal: No Tenderness to Palpation of Joints or Extremities Neurological: Neuro grossly intact Psych/Mental Status: Normal Affect, Appropriate Debridement Note Post-Debridement Measurements/Treatment WC - Nurse 2 - General Ulcer CM Notes Start: 02/24/18 14:32 Freq: Status: Active Protocol: Activity Type Activity Date Activity User E-Sign Co-Sign Detail Recorded Client Recorded Date Recorded By Document 02/24/18 14:53 MUSTAPHA [id number] 02/24/18 14:59 JF Document 03/03/18 14:14 [id number] 03/03/18 14:15 JF 02/24/18 03/03/18 14:53 14:14 Wound Center Nurse 2 #24 Left BKA dehisced incision -Time 14:54 14:14 -Correct Patient Yes Yes -Correct Side, Site, Position Yes Yes -Correct Procedure Yes Yes -Procedure Performed Yes Yes -Type of Procedure Debridement Debridement -Clinical Debridement Subcutaneous Subcutaneous -Post Debridement Size (cm) - Length 1.5 1.4 -Post Debridement Size (cm) - Width 3.6 3.7 -Post Debridement Size (cm) - Depth 2.0 0.5 -Total Square Cm 5.40 5.18 -Wound/Ulcer Outcome Not Healed Not Healed -Ulcer Cleansing Rinsed/ Rinsed/ Irrigated with Irrigated with Saline Saline -Foul Odor after Cleansing No No -Bioengineered Tissue Yes No -Type of bioengineered Tissue EPIFIX -Expiration Date 09/17/22 -Product Lot Number [id number] -Percent Used 100 -Saline Lot Number [id number] -Bleeding Controlled with Pressure Pressure -Other 9:00-2cm 9:00--2.4cm -Offloading No No -Treatment Response Procedure Procedure Tolerated Well Tolerated Well Pain Scale: 0-10 Numeric Is Patient Pain Free? Yes Yes Wound debrided: Left BKA stump ulcer Laterality: Left Type of Debridement: Excisional debridement Anesthesia Used: 4% Lidocaine Solution Depth: Down to and including healthy tissue, in the subcutaneous layer Percentage of wound debrided: 100 Instrument Used: 5mm curette Tissue Removed: Subcutaneous tissue and slough Severity: Limited To Skin Breakdown Amount of bleeding with debridement: Mild Bleeding Controlled with: Pressure Patient tolerated procedure well Tunneling at 9 o'clock position of ulcer. Assessment/Plan Active Problems (Last Reviewed 09/01/17 @ 13:36 by Shanique Martinez) Nonhealing ulcer of left lower extremity (Chronic) Osteomyelitis (Chronic) Personal history of Methicillin resistant Staphylococcus aureus infection (Chronic) History of left below knee amputation (Chronic) Assessment: 1. Nonhealing ulcer left BKA stump after a fall. 2. Infection of left BKA stump. 3. Osteomyelitis. 4. MRSA. 5. Diabetes mellitus. 6. Former smoker. 7. s/p surgical preparation left BKA stump with excision dehiscence amputation stump ulcer and partial ostectomy tibia for osteomyelitis and reconstruction with re-advancement muscle flap and bipedicle periosteal anterior fascial advancement flap and secondary wound closure revision. Plan: The stump ulcer continues to improve slowly. Has good granulation tissue. No bone is exposed. Epifix placental connective tissue graft was not applied today. Patient has not met his deductable and does not want to start the Epifix at this time. He has been approved use of SNAP negative pressure dressing to help keep keep wound bed dry and help with the tunneling, which was applied today. He is finished with his antibiotics (Vancomycin and Zosyn) for osteomyelitis and for MRSA and Enterobacter cloacae. He was placed on Doxycycli ne and Levaquin and will continue them. His Prealbumin from 10/29/17 was 28.3. Encourage nutritional supplementation with protein to help the healing process. His HgbA1c is 6.7. He may also be a candidate for HBO treatments. Patient states he will think about it. He states he has done HBO in the past. Before any attempts at wound closure in the future, he would need a partial ostectomy of his tibial bone to evaluate for osteomyelitis. If we cannot eradicate the osteomyelitis in his tibial bone, he may ultimately need an AKA. Patient voices understanding and wants to pursue aggressive treatments in order to salvage the BKA stump. Followup on Friday for SNAP vac change and in one week. Code Visit [id number]: [id number] Aimee subq tissue 20 sq cm/<
== END 2018-03-19 23:59 ==
LOC: WC 14:45
PROVIDERS: Family Provider Family Medicine; PCP Family Medicine; Visit Provider Surgery
DX: T87.81 Dehiscence of amputation stump (principal); Y83.8 Other surgical procedures as the cause of abnormal reaction of the patient, or of later complication, without mention of misadventure at the time of the procedure; Z86.14 Personal history of Methicillin resistant Staphylococcus aureus infection; M86.662 Other chronic osteomyelitis, left tibia and fibula; Z87.891 Personal history of nicotine dependence; Z89.512 Acquired absence of left leg below knee
CPT/HCPCS: 11042; 15271; 97607; Q4186

== ENCOUNTER 2018-04-14 13:45 | Outpatient (RCR) | payer MEDICARE, SELFPAY ==
[2018-03-20 01:24] VITALS: BP 161/77; PULSE 96; RESP 20; TEMP 36.6
[2018-03-20 13:57] VITALS: BP 162/86; PULSE 96; RESP 20; TEMP 36.1; BMI 40.1
[2018-03-24 14:53] VITALS: BP 160/74; PULSE 91; RESP 18; TEMP 37; BMI 40.1
--- NOTE | 2018-03-24 16:14 | PN.PCM_ITS ---
(1) Nonhealing ulcer of left lower extremity Status: Chronic Current Visit: Yes Code(s): L97.929 - Non-pressure chronic ulcer of unspecified part of left lower leg with unspecified severity (2) MRSA (methicillin resistant Staphylococcus aureus) infection Status: Chronic Current Visit: Yes Code(s): A49.02 - Methicillin resistant Staphylococcus aureus infection, unspecified site (3) Osteomyelitis Status: Chronic Current Visit: Yes Code(s): M86.9 - Osteomyelitis, unspecified Type of Wound Date of Service: 03/24/18 Chief Complaint: Nonhealing ulcer left BKA stump after a fall. History of Wound: Surgery 10/28/17 - 1. Surgical preparation left BKA stump with excision dehiscence amputation stump ulcer and partial ostectomy tibia for osteomyelitis. 2. Reconstruction with re-advancement muscle flap and bipedicle periosteal anterior fascial advancement flap and secondary wound closure revision. Wound care - Stopped Epifix due to cost. Started SNAP VAC last week. Operative culture - Enterobacter cloacae in the soft tissue and bone. He was treated with Zosyn perioperatively and was sent to TCU on Cipro. When the Patholoy came back positive for osteomyelitis, a PICC line was placed and he was started on Vancomycin and Zosyn. He finished his IV antibiotics on 12/17/17. He was discharged on Doxycycline and Levaquin. Pathology - acute and chronic osteomyelitis. On 11/14/17, he fell out of bed on his stump when he tried to maneuver into his wheelchair. He sustained a superficial wound dehiscence that was treated initially with Aquacel Silver. His Prealbumin on 10/29/17 was 28.3. Encourage nutritional supplementation with protein to help the healing process. Today he denies any fever. His appetite is good. The ulcer is stable with good granulation tissue and no exposed bone. Progress of Wound: Improved. Tunneling at 9 o'clock position has decreased significantly with the use of SNAP VAC. - Physical Exam Vital Signs Temp Pulse Resp BP 98.6 F 91 18 160/74 H 03/24/18 14:53 03/24/18 14:53 03/24/18 14:53 03/24/18 14:53 General: Alert, Oriented x3, Cooperative HEENT: Atraumatic Oral: Moist Mucosa Lungs: Normal air movement Cardiovascular: Regular rate Extremities: No edema, Capillary Refill Less than 3 Seconds Skin: Ulcer/ Wound - Left BKA stump ulcer. Improvement in tunneling with SNAP vac Wound Measurements and Assessment WC - Nurse 1 - General Ulcer Measurement Start: 03/20/18 13:57 Freq: Status: Active Protocol: Activity Type Activity Date Activity User E-Sign Co-Sign Detail Recorded Client Recorded Date Recorded By Document 03/24/18 14:53 MW [id number] 03/24/18 14:56 MW 03/24/18 14:53 Wound Center Nurse 1 [Ulcer Assessment] #24 Left BKA dehisced incision -Combined with other wound No -Current Size (cm) - Length 2.9 -Current Size (cm) - Width 2.8 -Current Size (cm) - Depth 0.5 -Total Square Cm 8.12 -Photo Taken No -Epithelialization Small 1-33% -Tunneling No -Undermining/Tunneling No -Circular Undermining No -Exudate Amt Medium -Exudate Type Serosanguineous -Wound Margin Distinct, Outline Attached -Granulation Amt Large (67-100%) -Granulation Quality [place] -Slough/Fibrin Yes -Necrosis Amt Small (1-33%) -Necrotic Tissue Type Adherent Slough -Structure Exposed N/A -Texture (Yael-wound Skin Appearance) Assessed Localized Edema Scarring -Moisture (Yael-wound Skin Appearance No Abnormality ) Assessed -Color (Yael-wound Skin Appearance) No Abnormality Assessed -Temperature (Yael-wound Skin No Abnormality Appearance) (Pt Warm) -Ulcer Cleansing SOAP AND WATER -Foul Odor after Cleansing No -Anesthetic Used 4% Lidocaine Solution [Edema Assessment] -Lower Limb Edema Present No WC - Nurse 2 - General Ulcer CM Notes Start: 03/20/18 13:57 Freq: Status: Active Protocol: Activity Type Activity Date Activity User E-Sign Co-Sign Detail Recorded Client Recorded Date Recorded By Document 03/24/18 15:18 JF [id number] 03/24/18 15:20 JF 03/24/18 15:18 Wound Center Nurse 2 [Procedure/Treatment] #24 Left BKA dehisced incision -Time 15:19 -Correct Patient Yes -Correct Side, Site, Position Yes -Correct Procedure Yes -Procedure Performed Yes -Type of Procedure Debridement -Clinical Debridement Subcutaneous -Post Debridement Size (cm) - Length 1.3 -Post Debridement Size (cm) - Width 3.5 -Post Debridement Size (cm) - Depth 0.7 -Total Square Cm 4.55 -Wound/Ulcer Outcome Not Healed -Ulcer Cleansing Rinsed/ Irrigated with Saline -Foul Odor after Cleansing No -Bioengineered Tissue No -Bleeding Controlled with Pressure -Other 9:00---1.4CM TUNNEL -Offloading No -Treatment Response Procedure Tolerated Well [See Physician Procedure note for Specifics] Pain Scale: 0-10 Numeric [Pain] -Is Patient Pain Free? Yes Musculoskeletal: No Tenderness to Palpation of Joints or Extremities Neurological: Neuro grossly intact Psych/Mental Status: Normal Affect, Appropriate Debridement Note Post-Debridement Measurements/Treatment WC - Nurse 2 - General Ulcer CM Notes Start: 03/20/18 13:57 Freq: Status: Active Protocol: Activity Type Activity Date Activity User E-Sign Co-Sign Detail Recorded Client Recorded Date Recorded By Document 03/24/18 15:18 MUSTAPHA [id number] 03/24/18 15:20 MUSTAPHA 03/24/18 15:18 Wound Center Nurse 2 #24 Left BKA dehisced incision -Time 15:19 -Correct Patient Yes -Correct Side, Site, Position Yes -Correct Procedure Yes -Procedure Performed Yes -Type of Procedure Debridement -Clinical Debridement Subcutaneous -Post Debridement Size (cm) - Length 1.3 -Post Debridement Size (cm) - Width 3.5 -Post Debridement Size (cm) - Depth 0.7 -Total Square Cm 4.55 -Wound/Ulcer Outcome Not Healed -Ulcer Cleansing Rinsed/ Irrigated with Saline -Foul Odor after Cleansing No -Bioengineered Tissue No -Bleeding Controlled with Pressure -Other 9:00---1.4CM TUNNEL -Offloading No -Treatment Response Procedure Tolerated Well Pain Scale: 0-10 Numeric Is Patient Pain Free? Yes Wound debrided: Left BKA stump Laterality: Left Type of Debridement: Excisional debridement Anesthesia Used: 4% Lidocaine Solution Depth: Down to and including healthy tissue, in the subcutaneous layer Percentage of wound debrided: 100 Instrument Used: 5mm curette Tissue Removed: Subcutaneous tissue and slough Severity: Fat Layer Exposed Amount of bleeding with debridement: Mild Bleeding Controlled with: Pressure Patient tolerated procedure well Assessment/Plan Active Problems (Last Reviewed 09/01/17 @ 13:36 by Shanique Martinez) Nonhealing ulcer of left lower extremity (Chronic) 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) Osteomyelitis (Chronic) Assessment: 1. Nonhealing ulcer left BKA stump after a fall. 2. Infection of left BKA stump. 3. Osteomyelitis. 4. MRSA. 5. Diabetes mellitus. 6. F ormer smoker. 7. s/p surgical preparation left BKA stump with excision dehiscence amputation stump ulcer and partial ostectomy tibia for osteomyelitis and reconstruction with re-advancement muscle flap and bipedicle periosteal anterior fascial advancement flap and secondary wound closure revision. Plan: The stump ulcer continues to improve slowly. Has good granulation tissue. No bone is exposed. Patient has not met his deductable and does not want to start the Epifix at this time. He started SNAP negative pressure dressing last week and there has been a decrease in the size of the ulcer and a decrease in the tunneling. He is finished with his antibiotics (Vancomycin and Zosyn) for osteomyelitis and for MRSA and Enterobacter cloacae. He was placed on Doxycyc line and Levaquin and will continue them. His Prealbumin from 10/29/17 was 28.3. Encourage nutritional supplementation with protein to help the healing process. His HgbA1c is 6.7. He may also be a candidate for HBO treatments. Patient states he will think about it. He states he has done HBO in the past. Before any attempts at wound closure in the future, he would need a partial ostectomy of his tibial bone to evaluate for osteomyelitis. If we cannot eradicate the osteomyelitis in his tibial bone, he may ultimately need an AKA. Patient voices understanding and wants to pursue aggressive treatments in order to salvage the BKA stump. Followup on Friday for SNAP vac change and in one week. Code Visit 111xxx-113xx: [id number] Aimee subq tissue 20 sq cm/<
[2018-03-27 14:17] VITALS: BP 159/92; PULSE 89; RESP 16; TEMP 36.3; BMI 40.1
[2018-03-31 13:39] VITALS: BP 172/86; PULSE 92; RESP 18; TEMP 36.2; BMI 40.1
--- NOTE | 2018-03-31 15:51 | PN.PCM_ITS ---
(1) Nonhealing ulcer of left lower extremity Status: Chronic Current Visit: Yes Code(s): L97.929 - Non-pressure chronic ulcer of unspecified part of left lower leg with unspecified severity (2) MRSA (methicillin resistant Staphylococcus aureus) infection Status: Chronic Current Visit: Yes Code(s): A49.02 - Methicillin resistant Staphylococcus aureus infection, unspecified site (3) Osteomyelitis Status: Chronic Current Visit: Yes Code(s): M86.9 - Osteomyelitis, unspecified Type of Wound Date of Service: 03/31/18 Chief Complaint: Nonhealing ulcer left BKA stump after a fall. History of Wound: Surgery 10/28/17 - 1. Surgical preparation left BKA stump with excision dehiscence amputation stump ulcer and partial ostectomy tibia for osteomyelitis. 2. Reconstruction with re-advancement muscle flap and bipedicle periosteal anterior fascial advancement flap and secondary wound closure revision. Wound care - Stopped Epifix due to cost. Started SNAP VAC last week. Operative culture - Enterobacter cloacae in the soft tissue and bone. He was treated with Zosyn perioperatively and was sent to TCU on Cipro. When the Patholoy came back positive for osteomyelitis, a PICC line was placed and he was started on Vancomycin and Zosyn. He finished his IV antibiotics on 12/17/17. He was discharged on Doxycycline and Levaquin. Pathology - acute and chronic osteomyelitis. On 11/14/17, he fell out of bed on his stump when he tried to maneuver into his wheelchair. He sustained a superficial wound dehiscence that was treated initially with Aquacel Silver. His Prealbumin on 10/29/17 was 28.3. Encourage nutritional supplementation with protein to help the healing process. Today he denies any fever. His appetite is good. The ulcer is stable with good granulation tissue and no exposed bone. Progress of Wound: Improved. Continues to have tunneling at 9 o'clock - Physical Exam Vital Signs Temp Pulse Resp BP 97.1 F L 92 18 172/86 H 03/31/18 13:39 03/31/18 13:39 03/31/18 13:39 03/31/18 13:39 General: Alert, Oriented x3, Cooperative HEENT: Atraumatic Oral: Moist Mucosa Lungs: Normal air movement Cardiovascular: Regular rate Extremities: No edema, Capillary Refill Less than 3 Seconds, No Calf Tenderness Skin: Ulcer/ Wound - Left BKA stump with tunneling at 9 o'clock. Wound Measurements and Assessment WC - Nurse 1 - General Ulcer Measurement Start: 03/20/18 13:57 Freq: Status: Active Protocol: Activity Type Activity Date Activity User E-Sign Co-Sign Detail Recorded Client Recorded Date Recorded By Document 03/31/18 13:39 RB [id number] 03/31/18 13:43 RB 03/31/18 13:39 Wound Center Nurse 1 [Ulcer Assessment] #24 Left BKA dehisced incision -Combined with other wound No -Current Size (cm) - Length 1.1 -Current Size (cm) - Width 3 -Current Size (cm) - Depth 0.2 -Total Square Cm 3.3 -Photo Taken No -Tunneling Yes -Tunneling Position (O'clock) 9 -Tunneling Distance (cm) 2.2 -Undermining/Tunneling No -Circular Undermining No -Exudate Amt Small -Exudate Type Serosanguineous -Wound Margin Thickened & Rolled Under -Granulation Amt Large (67-100%) -Granulation Quality [place] Red -Slough/Fibrin Yes -Necrosis Amt Small (1-33%) -Necrotic Tissue Type Adherent Slough -Structure Exposed N/A -Texture (Yael-wound Skin Appearance) Assessed -Moisture (Yael-wound Skin Appearance Assessed ) -Color (Yael-wound Skin Appearance) Assessed -Temperature (Yael-wound Skin No Abnormality Appearance) (Pt Warm) -Tenderness on Palpation (Yael-wound No Skin Appearance) -Ulcer Cleansing Wound Cleanser -Foul Odor after Cleansing No -Anesthetic Used 5% Lidocaine Gel WC - Nurse 2 - General Ulcer CM Notes Start: 03/20/18 13:57 Freq: Status: Active Protocol: Activity Type Activity Date Activity User E-Sign Co-Sign Detail Recorded Client Recorded Date Recorded By Document 03/31/18 13:58 MUSTAPHA [id number] 03/31/18 13:59 MUSTAPHA 03/31/18 13:58 Wound Center Nurse 2 [Procedure/Treatment] -Time 13:58 -Correct Patient Yes -Correct Side, Site, Position Yes -Correct Procedure Yes -Procedure Performed Yes -Type of Procedure Debridement -Clinical Debridement Subcutaneous -Post Debridement Size (cm) - Length 1.5 -Post Debridement Size (cm) - Width 3.3 -Post Debridement Size (cm) - Depth 0.6 -Total Square Cm 4.95 -Wound/Ulcer Outcome Not Healed -Ulcer Cleansing Rinsed/ Irrigated with Saline -Foul Odor after Cleansing No -Bioengineered Tissue No -Bleeding Controlled with Pressure -Other tunnel at 9:00- -2.4cm -Offloading No -Treatment Response Procedure Tolerated Well [See Physician Procedure note for Specifics] Pain Scale: 0-10 Numeric [Pain] -Is Patient Pain Free? Yes Musculoskeletal: No Tenderness to Palpation of Joints or Extremities Neurological: Neuro grossly intact Psych/Mental Status: Normal Affect, Appropriate Debridement Note Post-Debridement Measurements/Treatment WC - Nurse 2 - General Ulcer CM Notes Start: 03/20/18 13:57 Freq: Status: Active Protocol: Activity Type Activity Date Activity User E-Sign Co-Sign Detail Recorded Client Recorded Date Recorded By Document 03/24/18 15:18 [id number] 03/24/18 15:20 Document 03/31/18 13:58 [id number] 03/31/18 13:59 03/24/18 03/31/18 15:18 13:58 Wound Center Nurse 2 #24 Left BKA dehisced incision -Time 15:19 13:58 -Correct Patient Yes Yes -Correct Side, Site, Position Yes Yes -Correct Procedure Yes Yes -Procedure Performed Yes Yes -Type of Procedure Debridement Debridement -Clinical Debridement Subcutaneous Subcutaneous -Post Debridement Size (cm) - Length 1.3 1.5 -Post Debridement Size (cm) - Width 3.5 3.3 -Post Debridement Size (cm) - Depth 0.7 0.6 -Total Square Cm 4.55 4.95 -Wound/Ulcer Outcome Not Healed Not Healed -Ulcer Cleansing Rinsed/ Rinsed/ Irrigated with Irrigated with Saline Saline -Foul Odor after Cleansing No No -Bioengineered Tissue No No -Bleeding Controlled with Pressure Pressure -Other 9:00---1.4CM tunnel at 9:00- TUNNEL -2.4cm -Offloading No No -Treatment Response Procedure Procedure Tolerated Well Tolerated Well Pain Scale: 0-10 Numeric Is Patient Pain Free? Yes Yes Wound debrided: left BKA ulcer Laterality: Left Type of Debridement: Excisional debridement Anesthesia Used: 4% Lidocaine Solution Depth: Down to and including healthy tissue, in the subcutaneous layer Percentage of wound debrided: 100 Instrument Used: 3mm curette Tissue Removed: Subcutaneous tissue and slough Severity: Fat Layer Exposed Amount of bleeding with debridement: Mild Bleeding Controlled with: Pressure Patient tolerated procedure well Assessment/Plan Active Problems (Last Reviewed 09/01/17 @ 13:36 by Shanique Martinez) Nonhealing ulcer of left lower extremity (Chronic) 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) Osteomyelitis (Chronic) Assessment: 1. Nonhealing ulcer left BKA stump after a fall. 2. Infection of left BKA stump. 3. Osteomyelitis. 4. MRSA. 5. Diabetes mellitus. 6. Former smoker. 7. s/p surgical preparation left BKA stump with excision dehiscence amputation stump ulcer and partial ostectomy tibia for osteomyelitis and reconstruction with re-advancement muscle flap and bipedicle periosteal anterior fascial advancement flap and secondary wound closure revision. Plan: The stump ulcer continues to improve slowly. Has good granulation tissue. No bone is exposed. Patient has not met his deductable and does not want to start the Epifix at this time. Will continue SNAP negative pressure dressing. We will make sure there is black foam in the tunneling to help reduce the depth of it. He is finished with his antibiotics (Vancomycin and Zosyn) for osteomyelitis and for MRSA and Enterobacter cloacae. He was placed on Doxycycline and Levaquin and will continue them. His Prealbumin from 10/29/17 was 28.3. Encourage nutritional supplementation with protein to help the healing process. His HgbA1c is 6.7. He may also be a candidate for HBO treatments. Patient states he will think about it. He states he has done HBO in the past. Before any attempts at wound closure in the future, he would need a partial ostectomy of his tibial bone to evaluate for osteomyelitis. If we cannot eradicate the osteomyelitis in his tibial bone, he may ultimately need an AKA. Patient voices understanding and wants to pursue aggressive treatments in order to salvage the BKA stump. Followup on Friday for SNAP vac change and in one week. Code Visit [id number]: [id number] Aimee subq tissue 20 sq cm/<
[2018-04-03 11:21] VITALS: BP 157/82; PULSE 87; RESP 18; TEMP 37.2; BMI 40.1
--- NOTE | 2018-04-03 11:41 | WC ---
PT IN FOR NURSE VISIT, RESULTS OF WOUND CULTURE DISCUSSED WITH HOLLI BUENO CNP. NEW ORDERS FOR ANTIBIOTIC CALLED INTO PATIENT'S PHARMACY WITH ADVISEMENT OF STARTING PROBIOTIC REGIMEN. ORDERS REVIEWED AND DISCUSSED WITH PATIENT AND CAREGIVER BY NURSE.
[2018-04-07 13:12] VITALS: BP 153/82; PULSE 92; RESP 20; TEMP 36.8; BMI 40.1
--- NOTE | 2018-04-07 14:08 | PN.PCM_ITS ---
(1) Nonhealing ulcer of left lower extremity Status: Chronic Current Visit: Yes Code(s): L97.929 - Non-pressure chronic ulcer of unspecified part of left lower leg with unspecified severity (2) MRSA (methicillin resistant Staphylococcus aureus) infection Status: Chronic Current Visit: Yes Code(s): A49.02 - Methicillin resistant Staphylococcus aureus infection, unspecified site (3) Osteomyelitis Status: Chronic Current Visit: Yes Code(s): M86.9 - Osteomyelitis, unspecified Type of Wound Date of Service: 04/07/18 Chief Complaint: Nonhealing ulcer left BKA stump after a fall. History of Wound: Surgery 10/28/17 - 1. Surgical preparation left BKA stump with excision dehiscence amputation stump ulcer and partial ostectomy tibia for osteomyelitis. 2. Reconstruction with re-advancement muscle flap and bipedicle periosteal anterior fascial advancement flap and secondary wound closure revision. Wound care - Stopped Epifix due to cost. Started SNAP VAC last week. Operative culture - Enterobacter cloacae in the soft tissue and bone. He was treated with Zosyn perioperatively and was sent to TCU on Cipro. When the Patholoy came back positive for osteomyelitis, a PICC line was placed and he was started on Vancomycin and Zosyn. He finished his IV antibiotics on 12/17/17. He was discharged on Doxycycline and Levaquin. Pathology - acute and chronic osteomyelitis. On 11/14/17, he fell out of bed on his stump when he tried to maneuver into his wheelchair. He sustained a superficial wound dehiscence that was treated initially with Aquacel Silver. His Prealbumin on 10/29/17 was 28.3. Encourage nutritional supplementation with protein to help the healing process. Today he denies any fever. His appetite is good. The ulcer is stable with good granulation tissue and no exposed bone. Progress of Wound: Improved. Continues to have tunneling at 9 o'clock - Physical Exam Vital Signs Temp Pulse Resp BP 98.3 F 92 20 H 153/82 H 04/07/18 13:12 04/07/18 13:12 04/07/18 13:12 04/07/18 13:12 General: Alert, Oriented x3, Cooperative HEENT: Atraumatic Oral: Moist Mucosa Lungs: Normal air movement Cardiovascular: Regular rate Extremities: Capillary Refill Less than 3 Seconds Skin: Ulcer/ Wound - Left BKA stump Wound Measurements and Assessment - Nurse 1 - General Ulcer Measurement Start: 03/20/18 13:57 Freq: Status: Active Protocol: Activity Type Activity Date Activity User E-Sign Co-Sign Detail Recorded Client Recorded Date Recorded By Document 04/07/18 13:12 CAIO [id number] 04/07/18 13:20 DL 04/07/18 13:12 Wound Center Nurse 1 [Ulcer Assessment] #24 Left BKA dehisced incision -Current Size (cm) - Length 1 -Current Size (cm) - Width 2 -Current Size (cm) - Depth 0.1 -Total Square Cm 2 -Photo Taken No -Tunneling Position (O'clock) 9 -Tunneling Distance (cm) 2.2 -Exudate Amt Small -Exudate Type Serosanguineous -Wound Margin Distinct, Outline Attached -Granulation Amt Large (67-100%) -Granulation Quality [place] -Necrosis Amt None Present (0 %) -Structure Exposed N/A -Texture (Yael-wound Skin Appearance) Scarring -Moisture (Yael-wound Skin Appearance Maceration ) -Color (Yael-wound Skin Appearance) No Abnormality -Temperature (Yael-wound Skin No Abnormality Appearance) (Pt Warm) -Tenderness on Palpation (Yael-wound No Skin Appearance) -Ulcer Cleansing Wound Cleanser -Foul Odor after Cleansing No -Anesthetic Used 4% Lidocaine Solution - Nurse 2 - General Ulcer CM Notes Start: 03/20/18 13:57 Freq: Status: Active Protocol: Activity Type Activity Date Activity User E-Sign Co-Sign Detail Recorded Client Recorded Date Recorded By Document 04/07/18 13:42 MUSTAPHA [id number] 04/07/18 13:46 MUSTAPHA 04/07/18 13:42 Wound Center Nurse 2 [Procedure/Treatment] -Time 13:43 -Correct Patient Yes -Correct Side, Site, Position Yes -Correct Procedure Yes -Procedure Performed Yes -Type of Procedure Debridement -Clinical Debridement Subcutaneous -Post Debridement Size (cm) - Length 1.0 -Post Debridement Size (cm) - Width 2.8 -Post Debridement Size (cm) - Depth 2.3 -Total Square Cm 2.80 -Wound/Ulcer Outcome Not Healed -Ulcer Cleansing Rinsed/ Irrigated with Saline -Foul Odor after Cleansing No -Bioengineered Tissue No -Bleeding Controlled with Pressure -Offloading No -Treatment Response Procedure Tolerated Well [See Physician Procedure note for Specifics] Pain Scale: 0-10 Numeric [Pain] -Is Patient Pain Free? Yes Musculoskeletal: No Tenderness to Palpation of Joints or Extremities Neurological: Neuro grossly intact Psych/Mental Status: Normal Affect, Appropriate Debridement Note Post-Debridement Measurements/Treatment WC - Nurse 2 - General Ulcer CM Notes Start: 03/20/18 13:57 Freq: Status: Active Protocol: Activity Type Activity Date Activity User E-Sign Co-Sign Detail Recorded Client Recorded Date Recorded By Document 03/24/18 15:18 [id number] 03/24/18 15:20 Document 03/31/18 13:58 [id number] 03/31/18 13:59 Document 04/07/18 13:42 [id number] 04/07/18 13:46 03/24/18 03/31/18 04/07/18 15:18 13:58 13:42 Wound Center Nurse 2 #24 Left BKA dehisced incision -Time 15:19 13:58 13:43 -Correct Patient Yes Yes Yes -Correct Side, Site, Position Yes Yes Yes -Correct Procedure Yes Yes Yes -Procedure Performed Yes Yes Yes -Type of Procedure Debridement Debridement Debridement -Clinical Debridement Subcutaneous Subcutaneous Subcutaneous -Post Debridement Size (cm) - Length 1.3 1.5 1.0 -Post Debridement Size (cm) - Width 3.5 3.3 2.8 -Post Debridement Size (cm) - Depth 0.7 0.6 2.3 -Total Square Cm 4.55 4.95 2.80 -Wound/Ulcer Outcome Not Healed Not Healed Not Healed -Ulcer Cleansing Rinsed/ Rinsed/ Rinsed/ Irrigated with Irrigated with Irrigated with Saline Saline Saline -Foul Odor after Cleansing No No No -Bioengineered Tissue No No No -Bleeding Controlled with Pressure Pressure Pressure -Other 9:00---1.4CM tunnel at 9:00- TUNNEL -2.4cm -Offloading No No No -Treatment Response Procedure Procedure Procedure Tolerated Well Tolerated Well Tolerated Well Pain Scale: 0-10 Numeric Is Patient Pain Free? Yes Yes Yes Wound debrided: Left BKA stump Laterality: Left Type of Debridement: Excisional debridement Anesthesia Used: 5% Lidocaine Gel Depth: Down to and including healthy tissue, in the subcutaneous layer Percentage of wound debrided: 100 Instrument Used: 5mm curette Tissue Removed: Subcutaneous tissue and slough Severity: Fat Layer Exposed Amount of bleeding with debridement: Mild Bleeding Controlled with: Pressure Patient tolerated procedure well Assessment/Plan Active Problems (Last Reviewed 09/01/17 @ 13:36 by Shanique Martinez) Nonhealing ulcer of left lower extremity (Chronic) 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) Osteomyelitis (Chronic) Assessment: 1. Nonhealing ulcer left BKA stump after a fall. 2. Infection of left BKA stump. 3. Osteomyelitis. 4. MRSA. 5. Diabetes mellitus. 6. Former smoker. 7. s/p surgical preparation left BKA stump with excision dehiscence amputation stump ulcer and partial ostectomy tibia for osteomyelitis and reconstruction with re-advancement muscle flap and bipedicle periosteal anterior fascial advancement flap and secondary wound closure revision. Plan: The stump ulcer continues to improve slowly. Has good granulation tissue. No bone is exposed. Patient has not met his deductable and does not want to start the Epifix at this time. We will try [employer] wound matrix (Lot [id number]), we have a free sample (enough for 4 weeks), today is week #1. Will continue SNAP negative pressure dressing. He is finished with his antibiotics (Vancomycin and Zosyn) for osteomyelitis and for MRSA and Enterobacter cloacae. He was placed on Doxycycline and Levaquin. Wound culture from 04/01/18 which grew Staphylococcus epidermidis and Anaerobic cocci which is resistant to the Levoquin and Doxycycline. Will stop both of these antibiotics and start him on Clindamycin. His Prealbumin from 10/29/17 was 28.3. Encourage nutritional supplementation with protein to help the healing process. His HgbA1c is 6.7. He may also be a candidate for HBO treatments. Patient states he will think about it. He states he has done HBO in the past. Before any attempts at wound closure in the future, he would need a partial ostectomy of his tibial bone to evaluate for osteomyelitis. If we cannot eradicate the osteomyelitis in his tibial bone, he may ultimately need an AKA. Patient voices understanding and wants to pursue aggressive treatments in order to salvage the BKA stump. Followup on Friday for SNAP vac change and in one week. Code Visit 111xxx-[id number]: [id number] Aimee subq tissue 20 sq cm/<
[2018-04-10 09:53] VITALS: BP 159/80; PULSE 78; RESP 18; TEMP 36.3; BMI 40.1
[2018-04-14 13:43] VITALS: BP 162/88; PULSE 95; RESP 18; TEMP 36.6; BMI 40.1
--- NOTE | 2018-04-14 15:38 | PN.PCM_ITS ---
(1) Nonhealing ulcer of left lower extremity Status: Chronic Current Visit: Yes Code(s): L97.929 - Non-pressure chronic ulcer of unspecified part of left lower leg with unspecified severity (2) MRSA (methicillin resistant Staphylococcus aureus) infection Status: Chronic Current Visit: Yes Code(s): A49.02 - Methicillin resistant Staphylococcus aureus infection, unspecified site (3) Osteomyelitis Status: Chronic Current Visit: Yes Code(s): M86.9 - Osteomyelitis, unspecified Type of Wound Date of Service: 04/14/18 Chief Complaint: Nonhealing ulcer left BKA stump after a fall. History of Wound: Surgery 10/28/17 - 1. Surgical preparation left BKA stump with excision dehiscence amputation stump ulcer and partial ostectomy tibia for osteomyelitis. 2. Reconstruction with re-advancement muscle flap and bipedicle periosteal anterior fascial advancement flap and secondary wound closure revision. Wound care - Stopped Epifix due to cost. Started SNAP VAC. Last week started a 4 week trial of [place] (able to obtain 4 samples) with adaptic wound veil under the SNAP vac. This is week #2. Operative culture - Enterobacter cloacae in the soft tissue and bone. He was treated with Zosyn perioperatively and was sent to TCU on Cipro. When the Patholoy came back positive for osteomyelitis, a PICC line was placed and he was started on Vancomycin and Zosyn. He finished his IV antibiotics on 12/17/17. He was discharged on Doxycycline and Levaquin. Pathology - acute and chronic osteomyelitis. On 11/14/17, he fell out of bed on his stump when he tried to maneuver into his wheelchair. He sustained a superficial wound dehiscence that was treated initially with Aquacel Silver. His Prealbumin on 10/29/17 was 28.3. Encourage nutritional supplementation with protein to help the healing process. Today he denies any fever. His appetite is good. The ulcer is stable with good granulation tissue and no exposed bone. Progress of Wound: Improved. Continues to have tunneling at 9 o'clock - Physical Exam Vital Signs Temp Pulse Resp BP 98 F 95 18 162/88 H 04/14/18 13:43 04/14/18 13:43 04/14/18 13:43 04/14/18 13:43 General: Alert, Oriented x3, Cooperative HEENT: Atraumatic Lungs: Normal air movement Cardiovascular: Regular rate Extremities: No edema, Capillary Refill Less than 3 Seconds Skin: Ulcer/ Wound - Left BKA stump ulcer Wound Measurements and Assessment WC - Nurse 1 - General Ulcer Measurement Start: 03/20/18 13:57 Freq: Status: Active Protocol: Activity Type Activity Date Activity User E-Sign Co-Sign Detail Recorded Client Recorded Date Recorded By Document 04/14/18 13:43 MN [id number] 04/14/18 13:52 MN 04/14/18 13:43 Wound Center Nurse 1 [Ulcer Assessment] #24 Left BKA dehisced incision -Combined with other wound No -Current Size (cm) - Length 2.5 -Current Size (cm) - Width 1.2 -Current Size (cm) - Depth 1.5 -Total Square Cm 3.00 -Date of Last Picture (Recall this 04/14/18 field) -Photo Taken Yes -Tunneling No -Undermining/Tunneling No -Circular Undermining No -Exudate Amt Medium -Exudate Type Purulent -Wound Margin Flat & Intact -Granulation Amt Large (67-100%) -Granulation Quality Pale [place] -Slough/Fibrin No -Texture (Yael-wound Skin Appearance) Assessed -Moisture (Yael-wound Skin Appearance Assessed ) Maceration -Color (Yael-wound Skin Appearance) Assessed -Temperature (Yael-wound Skin No Abnormality Appearance) (Pt Warm) -Tenderness on Palpation (Yael-wound No Skin Appearance) -Ulcer Cleansing Wound Cleanser -Foul Odor after Cleansing No -Anesthetic Used 4% Lidocaine Solution WC - Nurse 2 - General Ulcer CM Notes Start: 03/20/18 13:57 Freq: Status: Active Protocol: Activity Type Activity Date Activity User E-Sign Co-Sign Detail Recorded Client Recorded Date Recorded By Document 04/14/18 14:14 [id number] 04/14/18 14:17 04/14/18 14:14 Wound Center Nurse 2 [Procedure/Treatment] -Time 14:16 -Correct Patient Yes -Correct Side, Site, Position Yes -Correct Procedure Yes -Procedure Performed Yes -Type of Procedure Debridement -Clinical Debridement Subcutaneous -Post Debridement Size (cm) - Length 2.3 -Post Debridement Size (cm) - Width 1.5 -Post Debridement Size (cm) - Depth 1.5 -Total Square Cm 3.45 -Wound/Ulcer Outcome Not Healed -Ulcer Cleansing Rinsed/ Irrigated with Saline -Foul Odor after Cleansing No -Bioengineered Tissue No -Bleeding Controlled with Pressure -Offloading No -Treatment Response Procedure Tolerated Well [See Physician Procedure note for Specifics] Pain Scale: 0-10 Numeric [Pain] -Is Patient Pain Free? Yes Musculoskeletal: No Tenderness to Palpation of Joints or Extremities Neurological: Neuro grossly intact Psych/Mental Status: Normal Affect, Appropriate Debridement Note Post-Debridement Measurements/Treatment WC - Nurse 2 - General Ulcer CM Notes Start: 03/20/18 13:57 Freq: Status: Active Protocol: Activity Type Activity Date Activity User E-Sign Co-Sign Detail Recorded Client Recorded Date Recorded By Document 03/24/18 15:18 [id number] 03/24/18 15:20 Document 03/31/18 13:58 [id number] 03/31/18 13:59 Document 04/07/18 13:42 [id number] 04/07/18 13:46 Document 04/14/18 14:14 [id number] 04/14/18 14:17 03/24/18 03/31/18 04/07/18 15:18 13:58 13:42 Wound Center Nurse 2 #24 Left BKA dehisced incision -Time 15:19 13:58 13:43 -Correct Patient Yes Yes Yes -Correct Side, Site, Position Yes Yes Yes -Correct Procedure Yes Yes Yes -Procedure Performed Yes Yes Yes -Type of Procedure Debridement Debridement Debridement -Clinical Debridement Subcutaneous Subcutaneous Subcutaneous -Post Debridement Size (cm) - Length 1.3 1.5 1.0 -Post Debridement Size (cm) - Width 3.5 3.3 2.8 -Post Debridement Size (cm) - Depth 0.7 0.6 2.3 -Total Square Cm 4.55 4.95 2.80 -Wound/Ulcer Outcome Not Healed Not Healed Not Healed -Ulcer Cleansing Rinsed/ Rinsed/ Rinsed/ Irrigated with Irrigated with Irrigated with Saline Saline Saline -Foul Odor after Cleansing No No No -Bioengineered Tissue No No No -Bleeding Controlled with Pressure Pressure Pressure -Other 9:00---1.4CM tunnel at 9:00- TUNNEL -2.4cm -Offloading No No No -Treatment Response Procedure Procedure Procedure Tolerated Well Tolerated Well Tolerated Well Pain Scale: 0-10 Numeric Is Patient Pain Free? Yes Yes Yes 04/14/18 14:14 Wound Center Nurse 2 #24 Left BKA dehisced incision -Time 14:16 -Correct Patient Yes -Correct Side, Site, Position Yes -Correct Procedure Yes -Procedure Performed Yes -Type of Procedure Debridement -Clinical Debridement Subcutaneous -Post Debridement Size (cm) - Length 2.3 -Post Debridement Size (cm) - Width 1.5 -Post Debridement Size (cm) - Depth 1.5 -Total Square Cm 3.45 -Wound/Ulcer Outcome Not Healed -Ulcer Cleansing Rinsed/ Irrigated with Saline -Foul Odor after Cleansing No -Bioengineered Tissue No -Bleeding Controlled with Pressure -Other -Offloading No -Treatment Response Procedure Tolerated Well Pain Scale: 0-10 Numeric Is Patient Pain Free? Yes Wound debrided: Left BKA stump ulcer Laterality: Left Type of Debridement: Excisional debridement Anesthesia Used: 5% Lidocaine Gel Depth: Down to and including healthy tissue, in the subcutaneous layer Percentage of wound debrided: 100 Instrument Used: 5mm curette Tissue Removed: Subcutaneous tissue and slough Severity: Limited To Skin Breakdown Amount of bleeding with debridement: Mild Bleeding Controlled with: Pressure, Compression and gauze Patient tolerated procedure well Assessment/Plan Active Problems (Last Reviewed 09/01/17 @ 13:36 by Shanique Martinez) Nonhealing ulcer of left lower extremity (Chronic) 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) Osteomyelitis (Chronic) Assessment: 1. Nonhealing ulcer left BKA stump after a fall. 2. Infection of left BKA stump. 3. Osteomyelitis. 4. MRSA. 5. Diabetes mellitus. 6. Former smoker. 7. s/p surgical preparation left BKA stump with excision de hiscence amputation stump ulcer and partial ostectomy tibia for osteomyelitis and reconstruction with re-advancement muscle flap and bipedicle periosteal anterior fascial advancement flap and secondary wound closure revision. Plan: The stump ulcer continues to improve slowly. Has good granulation tissue. No bone is exposed. Patient has not met his deductable and does not want to start the Epifix at this time. We will try [employer] wound matrix (Lot [id number]), we have a free sample (enough for 4 weeks), today is week #2. Will continue SNAP negative pressure dressing. He has improvement in his ulcer today. He states that when he came in for his SNAP vac change last Friday that the nurse removed his wound veil and placed the foam into his wound (meaning that the oasis was most likely removed). Wear CONCHIS wrap for compression. He is finished with his antibiotics (Vancomycin and Zosyn) for osteomyelitis and for MRSA and Enterobacter cloacae. He was placed on Doxycycline and Levaquin. Wound culture from 04/01/18 which grew Staphylococcus epidermidis and Anaerobic cocci which is resistant to the Levoquin and Doxycycline. He continues on Clindamycin. Encouraged him to take a probiotic 1-2 times daily while on the Clindamycin. He currently is not having any bowel issues. His Prealbumin from 10/29/17 was 28.3. Encourage nutritional supplementation with protein to help the healing process. His HgbA1c is 6.7. He may also be a candidate for HBO treatments. Patient states he will think about it. He states he has done HBO in the past. Before any attempts at wound closure in the future, he would need a partial ostectomy of his tibial bone to evaluate for osteomyelitis. If we cannot eradicate the osteomyelitis in his tibial bone, he may ultimately need an AKA. Patient voices understanding and wants to pursue aggressive treatments in order to salvage the BKA stump. Followup on Friday for SNAP vac change and in one week. Code Visit [id number]: [id number] Aimee subq tissue 20 sq cm/<
== END 2018-04-16 23:59 ==
LOC: WC 13:45
PROVIDERS: Family Provider Family Medicine; PCP Family Medicine; Visit Provider Surgery
DX: T87.81 Dehiscence of amputation stump (principal); Y83.8 Other surgical procedures as the cause of abnormal reaction of the patient, or of later complication, without mention of misadventure at the time of the procedure; M86.662 Other chronic osteomyelitis, left tibia and fibula; Z86.14 Personal history of Methicillin resistant Staphylococcus aureus infection; Z87.891 Personal history of nicotine dependence; Z89.512 Acquired absence of left leg below knee
CPT/HCPCS: 11042; 87070; 87075; 87077; 87186; 87205; 97605; 97607; 99212; G0463

== ENCOUNTER 2018-05-15 10:45 | Outpatient (RCR) | payer MEDICARE, SELFPAY ==
[2018-04-17 01:06] VITALS: BP 162/88; PULSE 95; RESP 18; TEMP 36.6
[2018-04-17 11:00] VITALS: BP 157/81; PULSE 96; RESP 18; TEMP 36.1; BMI 40.1
[2018-04-21 13:02] VITALS: BP 152/79; PULSE 90; RESP 22; TEMP 36.2; BMI 40.1
--- NOTE | 2018-04-21 14:00 | PN.PCM_ITS ---
(1) Nonhealing ulcer of left lower extremity Status: Chronic Current Visit: Yes Code(s): L97.929 - Non-pressure chronic ulcer of unspecified part of left lower leg with unspecified severity (2) Dehiscence of amputation stump Status: Acute Current Visit: Yes Code(s): T87.81 - Dehiscence of amputation stump (3) PAOD (peripheral arterial occlusive disease) Status: Chronic Current Visit: Yes Code(s): I77.9 - Disorder of arteries and arterioles, unspecified (4) MRSA (methicillin resistant Staphylococcus aureus) infection Status: Chronic Current Visit: Yes Code(s): A49.02 - Methicillin resistant Staphylococcus aureus infection, unspecified site (5) Osteomyelitis Status: Chronic Current Visit: Yes Code(s): M86.9 - Osteomyelitis, unspecified (6) Obesity (BMI 30-39.9) Status: Chronic Current Visit: Yes Code(s): E66.9 - Obesity, unspecified Type of Wound Date of Service: 04/21/18 Chief Complaint: Nonhealing ulcer left BKA stump after a fall. History of Wound: Surgery 10/28/17 - 1. Surgical preparation left BKA stump with excision dehiscence amputation stump ulcer and partial ostectomy tibia for osteomyelitis. 2. Reconstruction with re-advancement muscle flap and bipedicle periosteal anterior fascial advancement flap and secondary wound closure revision. Wound care - Stopped Epifix due to cost. Started SNAP VAC. Started a 4 week trial of [place] (able to obtain 4 samples) with adaptic wound veil under the SNAP vac. This is week #3. Operative culture - Enterobacter cloacae in the soft tissue and bone. He was treated with Zosyn perioperatively and was sent to TCU on Cipro. When the Patholoy came back positive for osteomyelitis, a PICC line was placed and he was started on Vancomycin and Zosyn. He finished his IV antibiotics on 12/17/17. He was discharged on Doxycycline and Levaquin. Pathology - acute and chronic osteomyelitis. On 11/14/17, he fell out of bed on his stump when he tried to maneuver into his wheelchair. He sustained a superficial wound dehiscence that was treated initially with Aquacel Silver. His Prealbumin on 10/29/17 was 28.3. Encourage nutritional supplementation with protein to help the healing process. Today he denies any fever. His appetite is good. The ulcer is stable with good granulation tissue and no exposed bone. Has tunneling at the 9 o'clock position of the ulcer. Progress of Wound: Improved. Continues to have tunneling at 9 o'clock - Physical Exam Vital Signs Temp Pulse Resp BP 97.2 F L 90 22 H 152/79 H 04/21/18 13:02 04/21/18 13:02 04/21/18 13:02 04/21/18 13:02 General: Alert, Oriented x3, Cooperative HEENT: Atraumatic Oral: Moist Mucosa Lungs: Normal air movement Cardiovascular: Regular rate Extremities: No edema, Capillary Refill Less than 3 Seconds Skin: Ulcer/ Wound - Left BKA stump ulcer Wound Measurements and Assessment WC - Nurse 1 - General Ulcer Measurement Start: 04/17/18 11:00 Freq: Status: Active Protocol: Activity Type Activity Date Activity User E-Sign Co-Sign Detail Recorded Client Recorded Date Recorded By Document 04/21/18 13:02 DL [id number] 04/21/18 13:11 DL 04/21/18 13:02 Wound Center Nurse 1 [Ulcer Assessment] #24 Left BKA dehisced incision -Current Size (cm) - Length 0.7 -Current Size (cm) - Width 2 -Current Size (cm) - Depth 0.1 -Total Square Cm 1.4 -Photo Taken No -Tunneling Position (O'clock) 9 -Tunneling Distance (cm) 1 -Exudate Amt Small -Exudate Type Serosanguineous -Wound Margin Thickened & Rolled Under -Granulation Amt Large (67-100%) -Granulation Quality [place] -Necrosis Amt Small (1-33%) -Necrotic Tissue Type Adherent Slough -Structure Exposed N/A -Texture (Yael-wound Skin Appearance) Scarring -Moisture (Yael-wound Skin Appearance Dry/Scaly ) -Color (Yael-wound Skin Appearance) Rubor -Temperature (Yael-wound Skin No Abnormality Appearance) (Pt Warm) -Tenderness on Palpation (Yael-wound No Skin Appearance) -Ulcer Cleansing Wound Cleanser -Foul Odor after Cleansing No -Anesthetic Used 5% Lidocaine Gel WC - Nurse 2 - General Ulcer CM Notes Start: 04/17/18 11:00 Freq: Status: Active Protocol: Activity Type Activity Date Activity User E-Sign Co-Sign Detail Recorded Client Recorded Date Recorded By Document 04/21/18 13:25 [id number] [id number] 04/21/18 13:31 JF 04/21/18 13:25 Wound Center Nurse 2 [Procedure/Treatment] 25-left lateral stump -Time 13:27 -Correct Patient Yes -Correct Side, Site, Position Yes -Correct Procedure Yes -Procedure Performed Yes -Type of Procedure Debridement -Clinical Debridement Subcutaneous -Post Debridement Size (cm) - Length 0.4 -Post Debridement Size (cm) - Width 0.5 -Post Debridement Size (cm) - Depth 0.2 -Total Square Cm 0.20 -Wound/Ulcer Outcome Not Healed -Ulcer Cleansing Rinsed/ Irrigated with Saline -Foul Odor after Cleansing No -Bioengineered Tissue No -Bleeding Controlled with Pressure -Offloading No -Treatment Response Procedure Tolerated Well #24 Left BKA dehisced incision -Time 13:25 -Correct Patient Yes -Correct Side, Site, Position Yes -Correct Procedure Yes -Procedure Performed Yes -Type of Procedure Debridement -Clinical Debridement Subcutaneous -Post Debridement Size (cm) - Length 1 -Post Debridement Size (cm) - Width 2 -Post Debridement Size (cm) - Depth 2.0 -Total Square Cm 2 -Wound/Ulcer Outcome Not Healed -Ulcer Cleansing Rinsed/ Irrigated with Saline -Foul Odor after Cleansing No -Bioengineered Tissue No -Bleeding Controlled with Pressure -Offloading No -Treatment Response Procedure Tolerated Well [See Physician Procedure note for Specifics] Pain Scale: 0-10 Numeric [Pain] -Is Patient Pain Free? Yes Musculoskeletal: No Tenderness to Palpation of Joints or Extremities Neurological: Neuro grossly intact Psych/Mental Status: Normal Affect, Appropriate Debridement Note Post-Debridement Measurements/Treatment WC - Nurse 2 - General Ulcer CM Notes Start: 04/17/18 11:00 Freq: Status: Active Protocol: Activity Type Activity Date Activity User E-Sign Co-Sign Detail Recorded Client Recorded Date Recorded By Document 04/21/18 13:25 [id number] 04/21/18 13:31 04/21/18 13:25 Wound Center Nurse 2 25-left lateral stump -Time 13:27 -Correct Patient Yes -Correct Side, Site, Position Yes -Correct Procedure Yes -Procedure Performed Yes -Type of Procedure Debridement -Clinical Debridement Subcutaneous -Post Debridement Size (cm) - Length 0.4 -Post Debridement Size (cm) - Width 0.5 -Post Debridement Size (cm) - Depth 0.2 -Total Square Cm 0.20 -Wound/Ulcer Outcome Not Healed -Ulcer Cleansing Rinsed/ Irrigated with Saline -Foul Odor after Cleansing No -Bioengineered Tissue No -Bleeding Controlled with Pressure -Offloading No -Treatment Response Procedure Tolerated Well #24 Left BKA dehisced incision -Time 13:25 -Correct Patient Yes -Correct Side, Site, Position Yes -Correct Procedure Yes -Procedure Performed Yes -Type of Procedure Debridement -Clinical Debridement Subcutaneous -Post Debridement Size (cm) - Length 1 -Post Debridement Size (cm) - Width 2 -Post Debridement Size (cm) - Depth 2.0 -Total Square Cm 2 -Wound/Ulcer Outcome Not Healed -Ulcer Cleansing Rinsed/ Irrigated with Saline -Foul Odor after Cleansing No -Bioengineered Tissue No -Bleeding Controlled with Pressure -Offloading No -Treatment Response Procedure Tolerated Well Pain Scale: 0-10 Numeric Is Patient Pain Free? Yes Wound debrided: Left BKA Laterality: Left Type of Debridement: Excisional debridement Anesthesia Used: 5% Lidocaine Gel Depth: Down to and including healthy tissue, in the subcutaneous layer Percentage of wound debrided: 100 Instrument Used: 5mm curette Tissue Removed: Subcutaneous tissue and slough Severity: Fat Layer Exposed Amount of bleeding with debridement: Mild Bleeding Controlled with: Pressure, Compression and gauze Patient tolerated procedure well Sharply debrided ulcer, including the tunneling at the 9 o'clock area of ulcer. Assessment/Plan Active Problems (Last Reviewed 09/01/17 @ 13:36 by Shanique Martinez) Nonhealing ulcer of left lower extremity (Chronic) Obesity (BMI 30-39.9) (Chronic) PAOD (peripheral arterial occlusive disease) (Chronic) 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) Osteomyelitis (Chronic) Dehiscence of amputation stump (Acute) Assessment: 1. Nonhealing ulcer left BKA stump after a fall. 2. Infection of left BKA stump. 3. Osteomyelitis. 4. MRSA. 5. Diabetes mellitus. 6. F ormer smoker. 7. s/p surgical preparation left BKA stump with excision dehiscence amputation stump ulcer and partial ostectomy tibia for osteomyelitis and reconstruction with re-advancement muscle flap and bipedicle periosteal anterior fascial advancement flap and secondary wound closure revision. Plan: The stump ulcer continues to improve slowly. Has good granulation tissue. No bone is exposed. Patient has not met his deductable and does not want to start the Epifix at this time. We will try [place] wound matrix (Lot [id number]), we have a free sample (enough for 4 weeks), today is week #3. Will continue SNAP negative pressure dressing. He has improvement in his ulcer today. Wear CONCHIS wrap for compression. He is finished with his antibiotics (Vancomycin and Zosyn) for osteomyelitis and for MRSA and Enterobacter cloacae. He was placed on Doxycycline and Levaquin. Wound culture from 04/01/18 which grew Staphylococcus epidermidis and Anaerobic cocci which is resistant to the Levoquin and Doxycycline. He continues on Clindamycin. Encouraged him to take a probiotic 1- 2 times daily while on the Clindamycin. He currently is not having any bowel issues. His Prealbumin from 10/29/17 was 28.3. Encourage nutritional supplementation with protein to help the healing process. His HgbA1c is 6.7. He may also be a candidate for HBO treatments. Patient states he will think about it. He states he has done HBO in the past. Before any attempts at wound closure in the future, he would need a partial ostectomy of his tibial bone to evaluate for osteomyelitis. If we cannot eradicate the osteomyelitis in his tibial bone, he may ultimately need an AKA. Patient voices understanding and wants to pursue aggressive treatments in order to salvage the BKA stump. Followup on Friday for SNAP vac change and in one week. Code Visit 111xxx-113xx: [id number] Aimee subq tissue 20 sq cm/<
[2018-04-24 10:16] VITALS: BP 154/68; PULSE 72; RESP 18; TEMP 36.8; BMI 40.1
[2018-04-28 14:08] VITALS: BP 141/77; PULSE 86; RESP 18; TEMP 36.4; BMI 40.1
--- NOTE | 2018-04-28 15:19 | PCM.WC.PN ---
(1) Nonhealing ulcer of left lower extremity Status: Chronic Current Visit: Yes Code(s): L97.929 - Non-pressure chronic ulcer of unspecified part of left lower leg with unspecified severity (2) Dehiscence of amputation stump Status: Chronic Current Visit: Yes Code(s): T87.81 - Dehiscence of amputation stump (3) PAOD (peripheral arterial occlusive disease) Status: Chronic Current Visit: Yes Code(s): I77.9 - Disorder of arteries and arterioles, unspecified (4) MRSA (methicillin resistant Staphylococcus aureus) infection Status: Chronic Current Visit: Yes Code(s): A49.02 - Methicillin resistant Staphylococcus aureus infection, unspecified site (5) Osteomyelitis Status: Chronic Current Visit: Yes Code(s): M86.9 - Osteomyelitis, unspecified (6) Obesity (BMI 30-39.9) Status: Chronic Current Visit: Yes Code(s): E66.9 - Obesity, unspecified Type of Wound Date of Service: 04/28/18 Chief Complaint: Nonhealing ulcer left BKA stump after a fall. History of Wound: Surgery 10/28/17 - 1. Surgical preparation left BKA stump with excision dehiscence amputation stump ulcer and partial ostectomy tibia for osteomyelitis. 2. Reconstruction with re-advancement muscle flap and bipedicle periosteal anterior fascial advancement flap and secondary wound closure revision. Wound care - Stopped Epifix due to cost. Started SNAP VAC. Started a 4 week trial of Frostproof (able to obtain 4 samples) with adaptic wound veil under the SNAP vac. This is week #4. Operative culture - Enterobacter cloacae in the soft tissue and bone. He was treated with Zosyn perioperatively and was sent to TCU on Cipro. When the Patholoy came back positive for osteomyelitis, a PICC line was placed and he was started on Vancomycin and Zosyn. He finished his IV antibiotics on 12/17/17. He was discharged on Doxycycline and Levaquin. Pathology - acute and chronic osteomyelitis. On 11/14/17, he fell out of bed on his stump when he tried to maneuver into his wheelchair. He sustained a superficial wound dehiscence that was treated initially with Aquacel Silver. His Prealbumin on 10/29/17 was 28.3. Encourage nutritional supplementation with protein to help the healing process. Today he denies any fever. His appetite is good. The ulcer is stable with good granulation tissue and no exposed bone. Has tunneling at the 9 o'clock position of the ulcer. Progress of Wound: Improved. Continues to have tunneling at 9 o'clock - Physical Exam Vital Signs Temp Pulse Resp BP 97.5 F L 86 18 141/77 H 04/28/18 14:08 04/28/18 14:08 04/28/18 14:08 04/28/18 14:08 General: Alert, Oriented x3, Cooperative HEENT: Atraumatic Oral: Moist Mucosa Lungs: Normal air movement Cardiovascular: Regular rate Extremities: Capillary Refill Less than 3 Seconds Skin: Ulcer/ Wound - Left BKA ulcer Wound Measurements and Assessment WC - Nurse 1 - General Ulcer Measurement Start: 04/17/18 11:00 Freq: Status: Active Protocol: Activity Type Activity Date Activity User E-Sign Co-Sign Detail Recorded Client Recorded Date Recorded By Document 04/28/18 14:08 DL [id number] 04/28/18 14:19 DL 04/28/18 14:08 Wound Center Nurse 1 [Ulcer Assessment] 25-left lateral stump -Current Size (cm) - Length 0 -Current Size (cm) - Width 0 -Current Size (cm) - Depth 0 -Total Square Cm 0 -Photo Taken Yes -Exudate Amt Small -Exudate Type Serosanguineous -Wound Margin Distinct, Outline Attached -Granulation Amt Large (67-100%) -Granulation Quality [place] -Necrosis Amt None Present (0 %) -Texture (Yael-wound Skin Appearance) No Abnormality -Moisture (Yael-wound Skin Appearance No Abnormality ) Dry/Scaly -Color (Yael-wound Skin Appearance) No Abnormality Rubor -Temperature (Yael-wound Skin No Abnormality Appearance) (Pt Warm) -Tenderness on Palpation (Yael-wound No Skin Appearance) -Ulcer Cleansing Wound Cleanser -Foul Odor after Cleansing No #24 Left BKA dehisced incision -Current Size (cm) - Length 0.5 -Current Size (cm) - Width 1.5 -Current Size (cm) - Depth 0.2 -Total Square Cm 0.75 -Tunneling Position (O'clock) 9 -Tunneling Distance (cm) 1.6 -Exudate Amt Small -Exudate Type Serosanguineous -Wound Margin Distinct, Outline Attached -Granulation Amt Large (67-100%) -Granulation Quality [place] Red -Necrosis Amt None Present (0 %) -Structure Exposed N/A -Texture (Yael-wound Skin Appearance) Scarring -Moisture (Yael-wound Skin Appearance Dry/Scaly ) -Color (Yael-wound Skin Appearance) Rubor -Temperature (Yael-wound Skin No Abnormality Appearance) (Pt Warm) -Tenderness on Palpation (Yael-wound No Skin Appearance) -Ulcer Cleansing Wound Cleanser -Foul Odor after Cleansing No -Anesthetic Used 5% Lidocaine Gel WC - Nurse 2 - General Ulcer CM Notes Start: 04/17/18 11:00 Freq: Status: Active Protocol: Activity Type Activity Date Activity User E-Sign Co-Sign Detail Recorded Client Recorded Date Recorded By Document 04/28/18 14:54 AN [id number] 04/28/18 15:00 AN Document 04/28/18 14:58 AN [id number] 04/28/18 15:00 AN 04/28/18 04/28/18 14:54 14:58 Wound Center Nurse 2 [Procedure/Treatment] 25-left lateral stump -Time 14:55 -Correct Patient Yes -Correct Side, Site, Position Yes -Correct Procedure Yes -Procedure Performed Yes -Type of Procedure Debridement -Clinical Debridement Subcutaneous -Post Debridement Size (cm) - Length 0.9 -Post Debridement Size (cm) - Width 2.0 -Post Debridement Size (cm) - Depth 0.2 -Total Square Cm 1.80 -Wound/Ulcer Outcome Amputation -Ulcer Cleansing Rinsed/ Irrigated with Saline -Foul Odor after Cleansing No -Bioengineered Tissue No -Bleeding Controlled with Pressure -Offloading No -Treatment Response Procedure Tolerated Well #24 Left BKA dehisced incision -Time 14:57 14:58 -Correct Patient Yes Yes -Correct Side, Site, Position Yes Yes -Correct Procedure Yes Yes -Procedure Performed Yes Yes -Type of Procedure Debridement Debridement -Clinical Debridement Subcutaneous Subcutaneous -Post Debridement Size (cm) - Length 0.9 0.9 -Post Debridement Size (cm) - Width 2.0 2 -Post Debridement Size (cm) - Depth 0.2 0.2 -Total Square Cm 1.80 1.8 -Wound/Ulcer Outcome Amputation -Ulcer Cleansing Rinsed/ Irrigated with Saline -Bleeding Controlled with Pressure -Offloading No -Treatment Response Procedure Tolerated Well [See Physician Procedure note for Specifics] Pain Scale: 0-10 Numeric [Pain] -Is Patient Pain Free? Yes Musculoskeletal: No Tenderness to Palpation of Joints or Extremities Neurological: Neuro grossly intact Psych/Mental Status: Normal Affect, Appropriate Debridement Note Post-Debridement Measurements/Treatment WC - Nurse 2 - General Ulcer CM Notes Start: 04/17/18 11:00 Freq: Status: Active Protocol: Activity Type Activity Date Activity User E-Sign Co-Sign Detail Recorded Client Recorded Date Recorded By Document 04/21/18 13:25 [id number] 04/21/18 13:31 Document 04/28/18 14:54 AN [id number] 04/28/18 15:00 AN Document 04/28/18 14:58 AN [id number] 04/28/18 15:00 AN 04/21/18 04/28/18 04/28/18 13:25 14:54 14:58 Wound Center Nurse 2 25-left lateral stump -Time 13:27 14:55 -Correct Patient Yes Yes -Correct Side, Site, Position Yes Yes -Correct Procedure Yes Yes -Procedure Performed Yes Yes -Type of Procedure Debridement Debridement -Clinical Debridement Subcutaneous Subcutaneous -Post Debridement Size (cm) - Length 0.4 0.9 -Post Debridement Size (cm) - Width 0.5 2.0 -Post Debridement Size (cm) - Depth 0.2 0.2 -Total Square Cm 0.20 1.80 -Wound/Ulcer Outcome Not Healed Amputation -Ulcer Cleansing Rinsed/ Rinsed/ Irrigated with Irrigated with Saline Saline -Foul Odor after Cleansing No No -Bioengineered Tissue No No -Bleeding Controlled with Pressure Pressure -Offloading No No -Treatment Response Procedure Procedure Tolerated Well Tolerated Well #24 Left BKA dehisced incision -Time 13:25 14:57 14:58 -Correct Patient Yes Yes Yes -Correct Side, Site, Position Yes Yes Yes -Correct Procedure Yes Yes Yes -Procedure Performed Yes Yes Yes -Type of Procedure Debridement Debridement Debridement -Clinical Debridement Subcutaneous Subcutaneous Subcutaneous -Post Debridement Size (cm) - Length 1 0.9 0.9 -Post Debridement Size (cm) - Width 2 2.0 2 -Post Debridement Size (cm) - Depth 2.0 0.2 0.2 -Total Square Cm 2 1.80 1.8 -Wound/Ulcer Outcome Not Healed Amputation -Ulcer Cleansing Rinsed/ Rinsed/ Irrigated with Irrigated with Saline Saline -Foul Odor after Cleansing No -Bioengineered Tissue No -Bleeding Controlled with Pressure Pressure -Offloading No No -Treatment Response Procedure Procedure Tolerated Well Tolerated Well Pain Scale: 0-10 Numeric Is Patient Pain Free? Yes Yes Wound debrided: Left BKA stump ulcer Laterality: Left Type of Debridement: Excisional debridement Anesthesia Used: 5% Lidocaine Gel Depth: Down to and including healthy tissue, in the subcutaneous layer Percentage of wound debrided: 100 Instrument Used: 5mm curette Tissue Removed: Subcuataneous tissue and slough Severity: Fat Layer Exposed Amount of bleeding with debridement: Mild Bleeding Controlled with: Pressure Patient tolerated procedure well Assessment/Plan Active Problems (Last Reviewed 09/01/17 @ 13:36 by Shanique Martinez) Nonhealing ulcer of left lower extremity (Chronic) Obesity (BMI 30-39.9) (Chronic) PAOD (peripheral arterial occlusive disease) (Chronic) 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) Osteomyelitis (Chronic) Dehiscence of amputation stump (Chronic) Assessment: 1. Nonhealing ulcer left BKA stump after a fall. 2. Infection of left BKA stump. 3. Osteomyelitis. 4. MRSA. 5. Diabetes mellitus. 6. Former smoker. 7. s/p surgical preparation left BKA stump with excision dehiscence amputation stump ulcer and partial ostectomy tibia for osteomyelitis and reconstruction with re-advancement muscle flap and bipedicle periosteal anterior fascial advancement flap and secondary wound closure revision. Plan: The stump ulcer continues to improve slowly. Has good granulation tissue. No bone is exposed. Patient has not met his deductable and does not want to start the Epifix at this time. We will try Frostproof wound matrix (Lot [id number]), we have a free sample (enough for 4 weeks), today is week #4. Will continue SNAP negative pressure dressing. He has improvement in his ulcer today and the tunnel has decrease this week. Wear CONCHIS wrap for compression. He is finished with his antibiotics (Vancomycin and Zosyn) for osteomyelitis and for MRSA and Enterobacter cloacae. He was placed on Doxycycline and Levaquin. Wound culture from 04/01/18 which grew Staphylococcus epidermidis and Anaerobic cocci which is resistant to the Levoquin and Doxycycline. He continues on Clindamycin. Encouraged him to take a probiotic 1-2 times daily while on the Clindamycin. He currently is not having any bowel issues. His Prealbumin from 10/29/17 was 28.3. Encourage nutritional supplementation with protein to help the healing process. His HgbA1c is 6.7. He may also be a candidate for HBO treatments. Patient states he will think about it. He states he has done HBO in the past. Before any attempts at wound closure in the future, he would need a partial ostectomy of his tibial bone to evaluate for osteomyelitis. If we cannot eradicate the osteomyelitis in his tibial bone, he may ultimately need an AKA. Patient voices understanding and wants to pursue aggressive treatments in order to salvage the BKA stump. Followup on Friday for SNAP vac change and in one week. Code Visit [id number]: [id number] Aimee subq tissue 20 sq cm/<
[2018-05-06 11:06] VITALS: BP 151/97; PULSE 88; RESP 18; TEMP 36.6; BMI 40.1
--- NOTE | 2018-05-06 12:06 | PCM.WC.PN ---
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 History of Wound: Surgery 10/28/17 - 1. Surgical preparation left BKA stump with excision dehiscence amputation stump ulcer and partial ostectomy tibia for osteomyelitis. 2. Reconstruction with re-advancement muscle flap and bipedicle periosteal anterior fascial advancement flap and secondary wound closure revision. Wound care - Stopped Epifix due to cost. Started SNAP VAC. Started a 4 week trial of [place] (able to obtain 4 samples) with adaptic wound veil under the SNAP vac. This is week #4. Operative culture - Enterobacter cloacae in the soft tissue and bone. He was treated with Zosyn perioperatively and was sent to TCU on Cipro. When the Patholoy came back positive for osteomyelitis, a PICC line was placed and he was started on Vancomycin and Zosyn. He finished his IV antibiotics on 12/17/17. He was discharged on Doxycycline and Levaquin. Pathology - acute and chronic osteomyelitis. On 11/14/17, he fell out of bed on his stump when he tried to maneuver into his wheelchair. He sustained a superficial wound dehiscence that was treated initially with Aquacel Silver. His Prealbumin on 10/29/17 was 28.3. Encourage nutritional supplementation with protein to help the healing process. Today he denies any fever. His appetite is good. The ulcer is stable with good granulation tissue and no exposed bone. Has tunneling at the 9 o'clock position of the ulcer. Progress of Wound: Courtesy visit for Dr. Rodriguez / Hanane Michelle NP. Stable. No new concerns at this time. - Physical Exam Vital Signs Temp Pulse Resp BP 97.8 F 88 18 151/97 H 05/06/18 11:06 05/06/18 11:06 05/06/18 11:06 05/06/18 11:06 General: Alert, Oriented x3, Cooperative, No apparent distress HEENT: Atraumatic, Normocephalic Oral: Moist Mucosa Neck: Supple Lungs: Normal air movement Abdomen: Non Tender Extremities: No cyanosis Skin: Ulcer/ Wound Wound Measurements and Assessment WC - Nurse 1 - General Ulcer Measurement Start: 04/17/18 11:00 Freq: Status: Active Protocol: Activity Type Activity Date Activity User E-Sign Co-Sign Detail Recorded Client Recorded Date Recorded By Document 05/06/18 11:06 DL [id number] 05/06/18 11:15 DL 05/06/18 11:06 Wound Center Nurse 1 [Ulcer Assessment] #24 Left BKA dehisced incision -Current Size (cm) - Length 0.5 -Current Size (cm) - Width 1.3 -Current Size (cm) - Depth 0.1 -Total Square Cm 0.65 -Photo Taken No -Tunneling Position (O'clock) 9 -Tunneling Distance (cm) 1 -Exudate Amt Small -Exudate Type Sanguineous -Granulation Amt Large (67-100%) -Granulation Quality [place] -Necrosis Amt Small (1-33%) -Necrotic Tissue Type Adherent Slough -Structure Exposed N/A -Texture (Yael-wound Skin Appearance) Scarring -Moisture (Yael-wound Skin Appearance Dry/Scaly ) -Color (Yael-wound Skin Appearance) No Abnormality -Temperature (Yael-wound Skin No Abnormality Appearance) (Pt Warm) -Tenderness on Palpation (Yael-wound No Skin Appearance) -Ulcer Cleansing Wound Cleanser -Foul Odor after Cleansing No -Anesthetic Used 4% Lidocaine Solution WC - Nurse 2 - General Ulcer CM Notes Start: 04/17/18 11:00 Freq: Status: Active Protocol: Activity Type Activity Date Activity User E-Sign Co-Sign Detail Recorded Client Recorded Date Recorded By Document 05/06/18 11:29 MW [id number] 05/06/18 11:33 MW 05/06/18 11:29 Wound Center Nurse 2 [Procedure/Treatment] -Time 11:30 -Correct Patient Yes -Correct Side, Site, Position Yes -Correct Procedure Yes -Procedure Performed Yes -Type of Procedure Debridement -Clinical Debridement Subcutaneous -Post Debridement Size (cm) - Length 0.7 -Post Debridement Size (cm) - Width 2.0 -Post Debridement Size (cm) - Depth 0.2 -Total Square Cm 1.40 -Wound/Ulcer Outcome Not Healed -Ulcer Cleansing Rinsed/ Irrigated with Saline -Foul Odor after Cleansing No -Bioengineered Tissue No -Bleeding Controlled with Pressure -Other tunnel @9 - 1. 3cm -Offloading No -Treatment Response Procedure Tolerated Well [See Physician Procedure note for Specifics] Pain Scale: 0-10 Numeric [Pain] -Is Patient Pain Free? Yes Musculoskeletal: No Muscle Wasting Neurological: Cranial nerves II-XII grossly intact Psych/Mental Status: Normal Affect Debridement Note Post-Debridement Measurements/Treatment WC - Nurse 2 - General Ulcer CM Notes Start: 04/17/18 11:00 Freq: Status: Active Protocol: Activity Type Activity Date Activity User E-Sign Co-Sign Detail Recorded Client Recorded Date Recorded By Document 04/21/18 13:25 [id number] 04/21/18 13:31 Document 04/28/18 14:54 AN [id number] 04/28/18 15:00 AN Document 04/28/18 14:58 AN [id number] 04/28/18 15:00 AN Document 05/06/18 11:29 MW [id number] 05/06/18 11:33 MW 04/21/18 04/28/18 04/28/18 13:25 14:54 14:58 Wound Center Nurse 2 25-left lateral stump -Time 13:27 14:55 -Correct Patient Yes Yes -Correct Side, Site, Position Yes Yes -Correct Procedure Yes Yes -Procedure Performed Yes Yes -Type of Procedure Debridement Debridement -Clinical Debridement Subcutaneous Subcutaneous -Post Debridement Size (cm) - Length 0.4 0.9 -Post Debridement Size (cm) - Width 0.5 2.0 -Post Debridement Size (cm) - Depth 0.2 0.2 -Total Square Cm 0.20 1.80 -Wound/Ulcer Outcome Not Healed Amputation -Ulcer Cleansing Rinsed/ Rinsed/ Irrigated with Irrigated with Saline Saline -Foul Odor after Cleansing No No -Bioengineered Tissue No No -Bleeding Controlled with Pressure Pressure -Offloading No No -Treatment Response Procedure Procedure Tolerated Well Tolerated Well #24 Left BKA dehisced incision -Time 13:25 14:57 14:58 -Correct Patient Yes Yes Yes -Correct Side, Site, Position Yes Yes Yes -Correct Procedure Yes Yes Yes -Procedure Performed Yes Yes Yes -Type of Procedure Debridement Debridement Debridement -Clinical Debridement Subcutaneous Subcutaneous Subcutaneous -Post Debridement Size (cm) - Length 1 0.9 0.9 -Post Debridement Size (cm) - Width 2 2.0 2 -Post Debridement Size (cm) - Depth 2.0 0.2 0.2 -Total Square Cm 2 1.80 1.8 -Wound/Ulcer Outcome Not Healed Amputation -Ulcer Cleansing Rinsed/ Rinsed/ Irrigated with Irrigated with Saline Saline -Foul Odor after Cleansing No -Bioengineered Tissue No -Bleeding Controlled with Pressure Pressure -Other -Offloading No No -Treatment Response Procedure Procedure Tolerated Well Tolerated Well Pain Scale: 0-10 Numeric Is Patient Pain Free? Yes Yes 05/06/18 11:29 Wound Center Nurse 2 25-left lateral stump -Time -Correct Patient -Correct Side, Site, Position -Correct Procedure -Procedure Performed -Type of Procedure -Clinical Debridement -Post Debridement Size (cm) - Length -Post Debridement Size (cm) - Width -Post Debridement Size (cm) - Depth -Total Square Cm -Wound/Ulcer Outcome -Ulcer Cleansing -Foul Odor after Cleansing -Bioengineered Tissue -Bleeding Controlled with -Offloading -Treatment Response #24 Left BKA dehisced incision -Time 11:30 -Correct Patient Yes -Correct Side, Site, Position Yes -Correct Procedure Yes -Procedure Performed Yes -Type of Procedure Debridement -Clinical Debridement Subcutaneous -Post Debridement Size (cm) - Length 0.7 -Post Debridement Size (cm) - Width 2.0 -Post Debridement Size (cm) - Depth 0.2 -Total Square Cm 1.40 -Wound/Ulcer Outcome Not Healed -Ulcer Cleansing Rinsed/ Irrigated with Saline -Foul Odor after Cleansing No -Bioengineered Tissue No -Bleeding Controlled with Pressure -Other tunnel @9 - 1. 3cm -Offloading No -Treatment Response Procedure Tolerated Well Pain Scale: 0-10 Numeric Is Patient Pain Free? Yes Wound debrided: Left stump Wound Grade/Stage: Stage II Type of Debridement: Excisional debridement Anesthesia Used: 4% Lidocaine Solution Depth: Down to and including healthy tissue, in the subcutaneous layer Percentage of wound debrided: 100 Instrument Used: 3mm curette Tissue Removed: Slough and devitalized tissue Severity: Fat Layer Exposed Amount of bleeding with debridement: Mild Bleeding Controlled with: Pressure Patient tolerated procedure well Assessment/Plan Active Problems (Last Reviewed 09/01/17 @ 13:36 by Shanique Martinez) Nonhealing ulcer of left lower extremity (Chronic) Obesity (BMI 30-39.9) (Chronic) PAOD (peripheral arterial occlusive disease) (Chronic) 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) Osteomyelitis (Chronic) Dehiscence of amputation stump (Chronic) Assessment: 1. Nonhealing ulcer left BKA stump after a fall. 2. Infection of left BKA stump. 3. Osteomyelitis. 4. MRSA. 5. Diabetes mellitus. 6. Former smoker. 7. s/p surgical preparation left BKA stump with excision dehiscence amputation stump ulcer and partial ostectomy tibia for osteomyelitis and reconstruction with re-advancement muscle flap and bipedicle periosteal anterior fascial advancement flap and secondary wound closure revision. Plan: Debridement done as documented above. Procedure was well-tolerated. Resume snap. Follow-up on Friday for change. Patient states that he will consider epi-fix. Will discuss this at his next visit. Continue increased protein intake. Elevate lower extremities when seated and in bed. He was advised to call with any questions or concerns. Follow-up as previously scheduled. This note was generated with [employer] dictation software. It may contain incorrect words, spelling, and punctuation that were not noted in checking the note before signing.
--- NOTE | 2018-05-06 12:10 | PN.PCM_ITS ---
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 History of Wound: Surgery 10/28/17 - 1. Surgical preparation left BKA stump with excision dehiscence amputation stump ulcer and partial ostectomy tibia for osteomyelitis. 2. Reconstruction with re-advancement muscle flap and bipedicle periosteal anterior fascial advancement flap and secondary wound closure revision. Wound care - Stopped Epifix due to cost. Started SNAP VAC. Started a 4 week trial of [place] (able to obtain 4 samples) with adaptic wound veil under the SNAP vac. This is week #4. Operative culture - Enterobacter cloacae in the soft tissue and bone. He was treated with Zosyn perioperatively and was sent to TCU on Cipro. When the Patholoy came back positive for osteomyelitis, a PICC line was placed and he was started on Vancomycin and Zosyn. He finished his IV antibiotics on 12/17/17. He was discharged on Doxycycline and Levaquin. Pathology - acute and chronic osteomyelitis. On 11/14/17, he fell out of bed on his stump when he tried to maneuver into his wheelchair. He sustained a superficial wound dehiscence that was treated initially with Aquacel Silver. His Prealbumin on 10/29/17 was 28.3. Encourage nutritional supplementation with protein to help the healing process. Today he denies any fever. His appetite is good. The ulcer is stable with good granulation tissue and no exposed bone. Has tunneling at the 9 o'clock position of the ulcer. Progress of Wound: Courtesy visit for Dr. Rodriguez / Hanane Michelle NP. Stable. No new concerns at this time. - Physical Exam Vital Signs Temp Pulse Resp BP 97.8 F 88 18 151/97 H 05/06/18 11:06 05/06/18 11:06 05/06/18 11:06 05/06/18 11:06 General: Alert, Oriented x3, Cooperative, No apparent distress HEENT: Atraumatic, Normocephalic Oral: Moist Mucosa Neck: Supple Lungs: Normal air movement Abdomen: Non Tender Extremities: No cyanosis Skin: Ulcer/ Wound Wound Measurements and Assessment WC - Nurse 1 - General Ulcer Measurement Start: 04/17/18 11:00 Freq: Status: Active Protocol: Activity Type Activity Date Activity User E-Sign Co-Sign Detail Recorded Client Recorded Date Recorded By Document 05/06/18 11:06 DL [id number] 05/06/18 11:15 DL 05/06/18 11:06 Wound Center Nurse 1 [Ulcer Assessment] #24 Left BKA dehisced incision -Current Size (cm) - Length 0.5 -Current Size (cm) - Width 1.3 -Current Size (cm) - Depth 0.1 -Total Square Cm 0.65 -Photo Taken No -Tunneling Position (O'clock) 9 -Tunneling Distance (cm) 1 -Exudate Amt Small -Exudate Type Sanguineous -Granulation Amt Large (67-100%) -Granulation Quality [place] -Necrosis Amt Small (1-33%) -Necrotic Tissue Type Adherent Slough -Structure Exposed N/A -Texture (Yael-wound Skin Appearance) Scarring -Moisture (Yael-wound Skin Appearance Dry/Scaly ) -Color (Yael-wound Skin Appearance) No Abnormality -Temperature (Yael-wound Skin No Abnormality Appearance) (Pt Warm) -Tenderness on Palpation (Yael-wound No Skin Appearance) -Ulcer Cleansing Wound Cleanser -Foul Odor after Cleansing No -Anesthetic Used 4% Lidocaine Solution WC - Nurse 2 - General Ulcer CM Notes Start: 04/17/18 11:00 Freq: Status: Active Protocol: Activity Type Activity Date Activity User E-Sign Co-Sign Detail Recorded Client Recorded Date Recorded By Document 05/06/18 11:29 MW [id number] 05/06/18 11:33 MW 05/06/18 11:29 Wound Center Nurse 2 [Procedure/Treatment] -Time 11:30 -Correct Patient Yes -Correct Side, Site, Position Yes -Correct Procedure Yes -Procedure Performed Yes -Type of Procedure Debridement -Clinical Debridement Subcutaneous -Post Debridement Size (cm) - Length 0.7 -Post Debridement Size (cm) - Width 2.0 -Post Debridement Size (cm) - Depth 0.2 -Total Square Cm 1.40 -Wound/Ulcer Outcome Not Healed -Ulcer Cleansing Rinsed/ Irrigated with Saline -Foul Odor after Cleansing No -Bioengineered Tissue No -Bleeding Controlled with Pressure -Other tunnel @9 - 1. 3cm -Offloading No -Treatment Response Procedure Tolerated Well [See Physician Procedure note for Specifics] Pain Scale: 0-10 Numeric [Pain] -Is Patient Pain Free? Yes Musculoskeletal: No Muscle Wasting Neurological: Cranial nerves II-XII grossly intact Psych/Mental Status: Normal Affect Debridement Note Post-Debridement Measurements/Treatment WC - Nurse 2 - General Ulcer CM Notes Start: 04/17/18 11:00 Freq: Status: Active Protocol: Activity Type Activity Date Activity User E-Sign Co-Sign Detail Recorded Client Recorded Date Recorded By Document 04/21/18 13:25 [id number] 04/21/18 13:31 Document 04/28/18 14:54 AN [id number] 04/28/18 15:00 AN Document 04/28/18 14:58 AN [id number] 04/28/18 15:00 AN Document 05/06/18 11:29 MW [id number] 05/06/18 11:33 MW 04/21/18 04/28/18 04/28/18 13:25 14:54 14:58 Wound Center Nurse 2 25-left lateral stump -Time 13:27 14:55 -Correct Patient Yes Yes -Correct Side, Site, Position Yes Yes -Correct Procedure Yes Yes -Procedure Performed Yes Yes -Type of Procedure Debridement Debridement -Clinical Debridement Subcutaneous Subcutaneous -Post Debridement Size (cm) - Length 0.4 0.9 -Post Debridement Size (cm) - Width 0.5 2.0 -Post Debridement Size (cm) - Depth 0.2 0.2 -Total Square Cm 0.20 1.80 -Wound/Ulcer Outcome Not Healed Amputation -Ulcer Cleansing Rinsed/ Rinsed/ Irrigated with Irrigated with Saline Saline -Foul Odor after Cleansing No No -Bioengineered Tissue No No -Bleeding Controlled with Pressure Pressure -Offloading No No -Treatment Response Procedure Procedure Tolerated Well Tolerated Well #24 Left BKA dehisced incision -Time 13:25 14:57 14:58 -Correct Patient Yes Yes Yes -Correct Side, Site, Position Yes Yes Yes -Correct Procedure Yes Yes Yes -Procedure Performed Yes Yes Yes -Type of Procedure Debridement Debridement Debridement -Clinical Debridement Subcutaneous Subcutaneous Subcutaneous -Post Debridement Size (cm) - Length 1 0.9 0.9 -Post Debridement Size (cm) - Width 2 2.0 2 -Post Debridement Size (cm) - Depth 2.0 0.2 0.2 -Total Square Cm 2 1.80 1.8 -Wound/Ulcer Outcome Not Healed Amputation -Ulcer Cleansing Rinsed/ Rinsed/ Irrigated with Irrigated with Saline Saline -Foul Odor after Cleansing No -Bioengineered Tissue No -Bleeding Controlled with Pressure Pressure -Other -Offloading No No -Treatment Response Procedure Procedure Tolerated Well Tolerated Well Pain Scale: 0-10 Numeric Is Patient Pain Free? Yes Yes 05/06/18 11:29 Wound Center Nurse 2 25-left lateral stump -Time -Correct Patient -Correct Side, Site, Position -Correct Procedure -Procedure Performed -Type of Procedure -Clinical Debridement -Post Debridement Size (cm) - Length -Post Debridement Size (cm) - Width -Post Debridement Size (cm) - Depth -Total Square Cm -Wound/Ulcer Outcome -Ulcer Cleansing -Foul Odor after Cleansing -Bioengineered Tissue -Bleeding Controlled with -Offloading -Treatment Response #24 Left BKA dehisced incision -Time 11:30 -Correct Patient Yes -Correct Side, Site, Position Yes -Correct Procedure Yes -Procedure Performed Yes -Type of Procedure Debridement -Clinical Debridement Subcutaneous -Post Debridement Size (cm) - Length 0.7 -Post Debridement Size (cm) - Width 2.0 -Post Debridement Size (cm) - Depth 0.2 -Total Square Cm 1.40 -Wound/Ulcer Outcome Not Healed -Ulcer Cleansing Rinsed/ Irrigated with Saline -Foul Odor after Cleansing No -Bioengineered Tissue No -Bleeding Controlled with Pressure -Other tunnel @9 - 1. 3cm -Offloading No -Treatment Response Procedure Tolerated Well Pain Scale: 0-10 Numeric Is Patient Pain Free? Yes Wound debrided: Left stump Wound Grade/Stage: Stage II Type of Debridement: Excisional debridement Anesthesia Used: 4% Lidocaine Solution Depth: Down to and including healthy tissue, in the subcutaneous layer Percentage of wound debrided: 100 Instrument Used: 3mm curette Tissue Removed: Slough and devitalized tissue Severity: Fat Layer Exposed Amount of bleeding with debridement: Mild Bleeding Controlled with: Pressure Patient tolerated procedure well Assessment/Plan Active Problems (Last Reviewed 09/01/17 @ 13:36 by Shanique Martinez) Nonhealing ulcer of left lower extremity (Chronic) Obesity (BMI 30-39.9) (Chronic) PAOD (peripheral arterial occlusive disease) (Chronic) 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) Osteomyelitis (Chronic) Dehiscence of amputation stump (Chronic) Assessment: 1. Nonhealing ulcer left BKA stump after a fall. 2. Infection of left BKA stump. 3. Osteomyelitis. 4. MRSA. 5. Diabetes mellitus. 6. Former smoker. 7. s/p surgical preparation left BKA stump with excision dehiscence amputation stump ulcer and partial ostectomy tibia for osteomyelitis and reconstruction with re-advancement muscle flap and bipedicle periosteal anterior fascial advancement flap and secondary wound closure revision. Plan: Debridement done as documented above. Procedure was well-tolerated. Resume snap. Follow-up on Friday for change. Patient states that he will consider epi-fix. Will discuss this at his next visit. Continue increased protein intake. Elevate lower extremities when seated and in bed. He was advised to call with any questions or concerns. Follow-up as previously scheduled. This note was generated with [employer] dictation software. It may contain incorrect words, spelling, and punctuation that were not noted in checking the note before signing.
[2018-05-08 09:40] VITALS: BP 140/87; PULSE 90; RESP 18; TEMP 35.6; BMI 40.1
[2018-05-12 13:26] VITALS: BP 154/96; PULSE 93; RESP 16; TEMP 36.8; BMI 40.1
--- NOTE | 2018-05-12 14:24 | PN.PCM_ITS ---
(1) Nonhealing ulcer of left lower extremity Status: Chronic Current Visit: Yes Code(s): L97.929 - Non-pressure chronic ulcer of unspecified part of left lower leg with unspecified severity (2) Dehiscence of amputation stump Status: Chronic Current Visit: Yes Code(s): T87.81 - Dehiscence of amputation stump (3) PAOD (peripheral arterial occlusive disease) Status: Chronic Current Visit: Yes Code(s): I77.9 - Disorder of arteries and arterioles, unspecified (4) MRSA (methicillin resistant Staphylococcus aureus) infection Status: Chronic Current Visit: Yes Code(s): A49.02 - Methicillin resistant Staphylococcus aureus infection, unspecified site (5) Osteomyelitis Status: Chronic Current Visit: Yes Code(s): M86.9 - Osteomyelitis, unspecified (6) Obesity (BMI 30-39.9) Status: Chronic Current Visit: Yes Code(s): E66.9 - Obesity, unspecified Type of Wound Date of Service: 05/12/18 Chief Complaint: Nonhealing ulcer left BKA stump after a fall. History of Wound: Surgery 10/28/17 - 1. Surgical preparation left BKA stump with excision dehiscence amputation stump ulcer and partial ostectomy tibia for osteomyelitis. 2. Reconstruction with re-advancement muscle flap and bipedicle periosteal anterior fascial advancement flap and secondary wound closure revision. Wound care - Stopped Epifix due to cost. Started SNAP VAC. Did a 4 week trial of [place] (able to obtain 4 samples) with adaptic wound veil under the SNAP vac. Operative culture - Enterobacter cloacae in the soft tissue and bone. He was treated with Zosyn perioperatively and was sent to TCU on Cipro. When the Patholoy came back positive for osteomyelitis, a PICC line was placed and he was started on Vancomycin and Zosyn. He finished his IV antibiotics on 12/17/17. He was discharged on Doxycycline and Levaquin. Pathology - acute and chronic osteomyelitis. On 11/14/17, he fell out of bed on his stump when he tried to maneuver into his wheelchair. He sustained a superficial wound dehiscence that was treated initially with Aquacel Silver. His Prealbumin on 10/29/17 was 28.3. Encourage nutritional supplementation with protein to help th e healing process. Today he denies any fever. His appetite is good. The ulcer is stable with good granulation tissue and no exposed bone. Has tunneling at the 9 o'clock position of the ulcer. Progress of Wound: Stable. - Physical Exam Vital Signs Temp Pulse Resp BP 98.2 F 93 16 154/96 H 05/12/18 13:26 05/12/18 13:26 05/12/18 13:26 05/12/18 13:26 General: Alert, Oriented x3, Cooperative HEENT: Atraumatic Oral: Moist Mucosa Lungs: Normal air movement Cardiovascular: Regular rate Extremities: No edema, Capillary Refill Less than 3 Seconds Skin: Ulcer/ Wound - Left BKA stump with tunneling at 9 o'clock Wound Measurements and Assessment WC - Nurse 1 - General Ulcer Measurement Start: 04/17/18 11:00 Freq: Status: Active Protocol: Activity Type Activity Date Activity User E-Sign Co-Sign Detail Recorded Client Recorded Date Recorded By Document 05/12/18 13:26 DV [id number] 05/12/18 13:29 DV 05/12/18 13:26 Wound Center Nurse 1 [Ulcer Assessment] #24 Left BKA dehisced incision -Combined with other wound No -Current Size (cm) - Length 0.5 -Current Size (cm) - Width 2.0 -Current Size (cm) - Depth 0.2 -Total Square Cm 1.00 -Photo Taken No -Epithelialization None Present -Tunneling No -Undermining/Tunneling No -Circular Undermining No -Exudate Amt Medium -Exudate Type Serosanguineous -Wound Margin Distinct, Outline Attached -Granulation Amt Large (67-100%) -Granulation Quality [place] -Slough/Fibrin Yes -Necrosis Amt Small (1-33%) -Necrotic Tissue Type Adherent Slough -Structure Exposed N/A -Texture (Yael-wound Skin Appearance) Assessed Scarring -Moisture (Yael-wound Skin Appearance Maceration ) -Color (Yael-wound Skin Appearance) Assessed -Temperature (Yael-wound Skin No Abnormality Appearance) (Pt Warm) -Tenderness on Palpation (Yael-wound No Skin Appearance) -Ulcer Cleansing soap and water -Foul Odor after Cleansing No -Anesthetic Used 5% Lidocaine Gel [Edema Assessment] -Lower Limb Edema Present Yes -Left Calf (cm) 38.0 WC - Nurse 2 - General Ulcer CM Notes Start: 04/17/18 11:00 Freq: Status: Active Protocol: Activity Type Activity Date Activity User E-Sign Co-Sign Detail Recorded Client Recorded Date Recorded By Document 05/12/18 13:46 [id number] 05/12/18 13:49 05/12/18 13:46 Wound Center Nurse 2 [Procedure/Treatment] #24 Left BKA dehisced incision -Time 13:47 -Correct Patient Yes -Correct Side, Site, Position Yes -Correct Procedure Yes -Procedure Performed Yes -Type of Procedure Debridement -Clinical Debridement Subcutaneous -Post Debridement Size (cm) - Length 0.7 -Post Debridement Size (cm) - Width 1.9 -Post Debridement Size (cm) - Depth 0.3 -Total Square Cm 1.33 -Wound/Ulcer Outcome Not Healed -Ulcer Cleansing Rinsed/ Irrigated with Saline -Foul Odor after Cleansing No -Bioengineered Tissue No -Other tunnel--1.8cm -Offloading No -Treatment Response Procedure Tolerated Well [See Physician Procedure note for Specifics] Pain Scale: 0-10 Numeric [Pain] -Is Patient Pain Free? Yes Musculoskeletal: No Tenderness to Palpation of Joints or Extremities Neurological: Neuro grossly intact Psych/Mental Status: Normal Affect, Appropriate Debridement Note Post-Debridement Measurements/Treatment WC - Nurse 2 - General Ulcer CM Notes Start: 04/17/18 11:00 Freq: Status: Active Protocol: Activity Type Activity Date Activity User E-Sign Co-Sign Detail Recorded Client Recorded Date Recorded By Document 04/21/18 13:25 [id number] 04/21/18 13:31 JF Document 04/28/18 14:54 AN [id number] 04/28/18 15:00 AN Document 04/28/18 14:58 AN [id number] 04/28/18 15:00 AN Document 05/06/18 11:29 MW [id number] 05/06/18 11:33 MW Document 05/12/18 13:46 [id number] 05/12/18 13:49 04/21/18 04/28/18 04/28/18 13:25 14:54 14:58 Wound Center Nurse 2 25-left lateral stump -Time 13:27 14:55 -Correct Patient Yes Yes -Correct Side, Site, Position Yes Yes -Correct Procedure Yes Yes -Procedure Performed Yes Yes -Type of Procedure Debridement Debridement -Clinical Debridement Subcutaneous Subcutaneous -Post Debridement Size (cm) - Length 0.4 0.9 -Post Debridement Size (cm) - Width 0.5 2.0 -Post Debridement Size (cm) - Depth 0.2 0.2 -Total Square Cm 0.20 1.80 -Wound/Ulcer Outcome Not Healed Amputation -Ulcer Cleansing Rinsed/ Rinsed/ Irrigated with Irrigated with Saline Saline -Foul Odor after Cleansing No No -Bioengineered Tissue No No -Bleeding Controlled with Pressure Pressure -Offloading No No -Treatment Response Procedure Procedure Tolerated Well Tolerated Well #24 Left BKA dehisced incision -Time 13:25 14:57 14:58 -Correct Patient Yes Yes Yes -Correct Side, Site, Position Yes Yes Yes -Correct Procedure Yes Yes Yes -Procedure Performed Yes Yes Yes -Type of Procedure Debridement Debridement Debridement -Clinical Debridement Subcutaneous Subcutaneous Subcutaneous -Post Debridement Size (cm) - Length 1 0.9 0.9 -Post Debridement Size (cm) - Width 2 2.0 2 -Post Debridement Size (cm) - Depth 2.0 0.2 0.2 -Total Square Cm 2 1.80 1.8 -Wound/Ulcer Outcome Not Healed Amputation -Ulcer Cleansing Rinsed/ Rinsed/ Irrigated with Irrigated with Saline Saline -Foul Odor after Cleansing No -Bioengineered Tissue No -Bleeding Controlled with Pressure Pressure -Other -Offloading No No -Treatment Response Procedure Procedure Tolerated Well Tolerated Well Pain Scale: 0-10 Numeric Is Patient Pain Free? Yes Yes 05/06/18 05/12/18 11:29 13:46 Wound Center Nurse 2 25-left lateral stump -Time -Correct Patient -Correct Side, Site, Position -Correct Procedure -Procedure Performed -Type of Procedure -Clinical Debridement -Post Debridement Size (cm) - Length -Post Debridement Size (cm) - Width -Post Debridement Size (cm) - Depth -Total Square Cm -Wound/Ulcer Outcome -Ulcer Cleansing -Foul Odor after Cleansing -Bioengineered Tissue -Bleeding Controlled with -Offloading -Treatment Response #24 Left BKA dehisced incision -Time 11:30 13:47 -Correct Patient Yes Yes -Correct Side, Site, Position Yes Yes -Correct Procedure Yes Yes -Procedure Performed Yes Yes -Type of Procedure Debridement Debridement -Clinical Debridement Subcutaneous Subcutaneous -Post Debridement Size (cm) - Length 0.7 0.7 -Post Debridement Size (cm) - Width 2.0 1.9 -Post Debridement Size (cm) - Depth 0.2 0.3 -Total Square Cm 1.40 1.33 -Wound/Ulcer Outcome Not Healed Not Healed -Ulcer Cleansing Rinsed/ Rinsed/ Irrigated with Irrigated with Saline Saline -Foul Odor after Cleansing No No -Bioengineered Tissue No No -Bleeding Controlled with Pressure -Other tunnel @9 - 1. tunnel--1.8cm 3cm -Offloading No No -Treatment Response Procedure Procedure Tolerated Well Tolerated Well Pain Scale: 0-10 Numeric Is Patient Pain Free? Yes Yes Wound debrided: Left BKA stump Laterality: Left Type of Debridement: Excisional debridement Anesthesia Used: 5% Lidocaine Gel Depth: Down to and including healthy tissue, in the subcutaneous layer Percentage of wound debrided: 100 Instrument Used: 5mm curette Tissue Removed: Subcutaneous tissue and slough Severity: Fat Layer Exposed Amount of bleeding with debridement: Mild Bleeding Controlled with: Pressure Patient tolerated procedure well Assessment/Plan Active Problems (Last Reviewed 09/01/17 @ 13:36 by Shanique Martinez) Nonhealing ulcer of left lower extremity (Chronic) Obesity (BMI 30-39.9) (Chronic) PAOD (peripheral arterial occlusive disease) (Chronic) 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) Osteomyelitis (Chronic) Dehiscence of amputation stump (Chronic) Assessment: 1. Nonhealing ulcer left BKA stump after a fall. 2. Infection of left BKA stump. 3. Osteomyelitis. 4. MRSA. 5. Diabetes mellitus. 6. Former smoker. 7. s/p surgical preparation left BKA stump with excision dehiscence amputation stump ulcer and partial ostectomy tibia for osteomyelitis and reconstruction with re-advancement muscle flap and bipedicle periosteal a nterior fascial advancement flap and secondary wound closure revision. Plan: Debridement done as documented above. Procedure was well-tolerated. Resume SNAP vac, make sure to place blue foam in the tunnel to help wick the moisture out of the tunnel. Follow-up on Friday for change. He will think about starting Epifix. Continue increased protein intake. Elevate lower extremities when seated and in bed. He was advised to call with any questions or concerns. Follow-up as previously scheduled. Code Visit [id number]: [id number] Aimee subq tissue 20 sq cm/<
[2018-05-15 11:15] VITALS: BP 154/82; PULSE 87; RESP 18; TEMP 36.7; BMI 40.1
== END 2018-05-17 23:59 ==
LOC: WC 10:45
PROVIDERS: Family Provider Family Medicine; PCP Family Medicine; Visit Provider Surgery
DX: T87.81 Dehiscence of amputation stump (principal); Y83.8 Other surgical procedures as the cause of abnormal reaction of the patient, or of later complication, without mention of misadventure at the time of the procedure; Z86.14 Personal history of Methicillin resistant Staphylococcus aureus infection; M86.662 Other chronic osteomyelitis, left tibia and fibula; Z87.891 Personal history of nicotine dependence; Z89.512 Acquired absence of left leg below knee; E66.9 Obesity, unspecified; Z71.3 Dietary counseling and surveillance
CPT/HCPCS: 11042; 97605; 97607; 99212; 99213; G0463

== ENCOUNTER 2018-06-15 08:00 | Outpatient (RCR) | payer MEDICARE, SELFPAY ==
[2018-05-18 00:55] VITALS: BP 154/82; PULSE 87; RESP 18; TEMP 36.7
[2018-05-19 13:41] VITALS: BP 146/77; PULSE 99; RESP 20; TEMP 36.6; BMI 40.1
--- NOTE | 2018-05-19 14:41 | PN.PCM_ITS ---
(1) Nonhealing ulcer of left lower extremity Status: Chronic Current Visit: Yes Code(s): L97.929 - Non-pressure chronic ulcer of unspecified part of left lower leg with unspecified severity (2) Dehiscence of amputation stump Status: Chronic Current Visit: Yes Code(s): T87.81 - Dehiscence of amputation stump (3) Osteomyelitis Status: Chronic Current Visit: Yes Code(s): M86.9 - Osteomyelitis, unspecified (4) Obesity (BMI 30-39.9) Status: Chronic Current Visit: Yes Code(s): E66.9 - Obesity, unspecified Type of Wound Date of Service: 05/19/18 Chief Complaint: Nonhealing ulcer left BKA stump after a fall. History of Wound: Surgery 10/28/17 - 1. Surgical preparation left BKA stump with excision dehiscence amputation stump ulcer and partial ostectomy tibia for osteomyelitis. 2. Reconstruction with re-advancement muscle flap and bipedicle periosteal anterior fascial advancement flap and secondary wound closure revision. Wound care - DC'd SNAP VAC due to no longer seeing improvement in his ulcer. Will start silver dressing changes. Will apply for Epicord and epifix. Patient would benefit from these products to help with ulcer healing. Would like to start with epicord in the tunneling area to help get it closed. Did a 4 week trial of [place] (able to obtain 4 samples) with adaptic wound veil under the SNAP vac with improvement. This is one of the reasons that Epicord and Epifix would help to improve his ulcer. Operative culture - Enterobacter cloacae in the soft tissue and bone. He was treated with Zosyn perioperatively and was sent to TCU on Cipro. When the Patholoy came back positive for osteomyelitis, a PICC line was placed and he was started on Vancomycin and Zosyn. He finished his IV antibiotics on 12/17/17. He was discharged on Doxycycline and Levaquin. Pathology - acute and chronic osteomyelitis. On 11/14/17, he fell out of bed on his stump when he tried to maneuver into his wheelchair. He sustained a superficial wound dehiscence that was treated initially with Aquacel Silver. His Prealbumin on 10/29/17 was 28.3. Encourage nutritional supplementation with protein to help the healing process. Today he denies any fever. His appetite is good. The ulcer is stable with good granulation tissue and no exposed bone. Has tunneling at the 9 o'clock position of the ulcer. Progress of Wound: Stable. - Physical Exam Vital Signs Temp Pulse Resp BP 97.8 F 99 20 H 146/77 H 05/19/18 13:41 05/19/18 13:41 05/19/18 13:41 05/19/18 13:41 General: Alert, Oriented x3, Cooperative HEENT: Atraumatic, PERRLA Oral: Moist Mucosa Lungs: Clear to auscultation, Normal air movement Cardiovascular: Regular rate Extremities: No edema, Capillary Refill Less than 3 Seconds Skin: Ulcer/ Wound - Left BKA stump ulcer Wound Measurements and Assessment WC - Nurse 1 - General Ulcer Measurement Start: 05/19/18 13:41 Freq: Status: Active Protocol: Activity Type Activity Date Activity User E-Sign Co-Sign Detail Recorded Client Recorded Date Recorded By Document 05/19/18 13:41 DL [id number] 05/19/18 13:50 DL 05/19/18 13:41 Wound Center Nurse 1 [Ulcer Assessment] #24 Left BKA dehisced incision -Current Size (cm) - Length 1.6 -Current Size (cm) - Width 0.8 -Current Size (cm) - Depth 0.1 -Total Square Cm 1.28 -Photo Taken No -Tunneling Position (O'clock) 9 -Tunneling Distance (cm) 2.2 -Exudate Amt Small -Exudate Type Serosanguineous -Wound Margin Distinct, Outline Attached -Granulation Amt Large (67-100%) -Granulation Quality [place] -Necrosis Amt Small (1-33%) -Necrotic Tissue Type Adherent Slough -Structure Exposed N/A -Texture (Yael-wound Skin Appearance) Scarring -Moisture (Yael-wound Skin Appearance Maceration ) -Color (Yael-wound Skin Appearance) Rubor -Temperature (Yael-wound Skin No Abnormality Appearance) (Pt Warm) -Tenderness on Palpation (Yael-wound No Skin Appearance) -Ulcer Cleansing Wound Cleanser -Foul Odor after Cleansing No -Anesthetic Used 4% Lidocaine Solution WC - Nurse 2 - General Ulcer CM Notes Start: 05/19/18 13:41 Freq: Status: Active Protocol: Activity Type Activity Date Activity User E-Sign Co-Sign Detail Recorded Client Recorded Date Recorded By Document 05/19/18 14:03 [email or web address] [id number] 05/19/18 14:06 05/19/18 14:03 Wound Center Nurse 2 [Procedure/Treatment] -Time 14:03 -Correct Patient Yes -Correct Side, Site, Position Yes -Correct Procedure Yes -Procedure Performed Yes -Type of Procedure Debridement -Clinical Debridement Subcutaneous -Post Debridement Size (cm) - Length 0.8 -Post Debridement Size (cm) - Width 2.3 -Post Debridement Size (cm) - Depth 0.4 -Total Square Cm 1.84 -Wound/Ulcer Outcome Not Healed -Ulcer Cleansing Rinsed/ Irrigated with Saline -Foul Odor after Cleansing No -Bioengineered Tissue No -Bleeding Controlled with Pressure -Other tunnel--1.1cm -Offloading No -Treatment Response Procedure Tolerated Well [See Physician Procedure note for Specifics] Pain Scale: 0-10 Numeric [Pain] -Is Patient Pain Free? Yes Musculoskeletal: No Tenderness to Palpation of Joints or Extremities Neurological: Neuro grossly intact Psych/Mental Status: Normal Affect, Appropriate Debridement Note Post-Debridement Measurements/Treatment - Nurse 2 - General Ulcer CM Notes Start: 05/19/18 13:41 Freq: Status: Active Protocol: Activity Type Activity Date Activity User E-Sign Co-Sign Detail Recorded Client Recorded Date Recorded By Document 05/19/18 14:03 [email or web address] [id number] 05/19/18 14:06 05/19/18 14:03 Wound Center Nurse 2 #24 Left BKA dehisced incision -Time 14:03 -Correct Patient Yes -Correct Side, Site, Position Yes -Correct Procedure Yes -Procedure Performed Yes -Type of Procedure Debridement -Clinical Debridement Subcutaneous -Post Debridement Size (cm) - Length 0.8 -Post Debridement Size (cm) - Width 2.3 -Post Debridement Size (cm) - Depth 0.4 -Total Square Cm 1.84 -Wound/Ulcer Outcome Not Healed -Ulcer Cleansing Rinsed/ Irrigated with Saline -Foul Odor after Cleansing No -Bioengineered Tissue No -Bleeding Controlled with Pressure -Other tunnel--1.1cm -Offloading No -Treatment Response Procedure Tolerated Well Pain Scale: 0-10 Numeric Is Patient Pain Free? Yes Wound debrided: Left BKA stump Laterality: Left Anesthesia Used: 5% Lidocaine Gel Depth: Down to and including healthy tissue, in the subcutaneous layer Percentage of wound debrided: 100 Instrument Used: 5mm curette Tissue Removed: Subcutaneous tissue and slough Amount of bleeding with debridement: Mild Bleeding Controlled with: Pressure Patient tolerated procedure well Assessment/Plan Active Problems (Last Reviewed 09/01/17 @ 13:36 by Shanique Martinez) Nonhealing ulcer of left lower extremity (Chronic) Obesity (BMI 30-39.9) (Chronic) Osteomyelitis (Chronic) Dehiscence of amputation stump (Chronic) Assessment: 1. Nonhealing ulcer left BKA stump after a fall. 2. Infection of left BKA stump. 3. Osteomyelitis. 4. MRSA. 5. Diabetes mellitus. 6. Former smoker. 7. s/p surgical preparation left BKA stump with excision dehiscence amputation stump ulcer and partial ostectomy tibia for osteomyelitis and reconstruction with re-advancement muscle flap and bipedicle periosteal anterior fascial advancement flap and secondary wound closure revision. Plan: Debridement done as documented above. Procedure was well-tolerated. Will stop SNAP vac since there has been no improvement in the ulcer for over a week. He is willing to start Epicord or Epifix. Epicord would be my first choice due to the depth of the tunneling at 9 o'clock. Will do silver dressing changes daily with a piece that is placed into the tunnel for a wick to help remove the moisture out of the tunnel. Continue increased protein intake. Elevate lower extremities when seated and in bed. He was advised to call with any questions or concerns. Follow-up as previously scheduled. Code Visit [id number]: [id number] Aimee subq tissue 20 sq cm/<
[2018-06-02 13:03] VITALS: BP 141/74; PULSE 92; RESP 18; TEMP 36.6
--- NOTE | 2018-06-02 15:57 | PCM.WC.PN ---
(1) Nonhealing ulcer of left lower extremity Status: Chronic Current Visit: Yes Code(s): L97.929 - Non-pressure chronic ulcer of unspecified part of left lower leg with unspecified severity (2) Dehiscence of amputation stump Status: Chronic Current Visit: Yes Code(s): T87.81 - Dehiscence of amputation stump (3) Osteomyelitis Status: Chronic Current Visit: Yes Code(s): M86.9 - Osteomyelitis, unspecified (4) Obesity (BMI 30-39.9) Status: Chronic Current Visit: Yes Code(s): E66.9 - Obesity, unspecified Type of Wound Date of Service: 06/02/18 Chief Complaint: Nonhealing ulcer left BKA stump after a fall. History of Wound: Surgery 10/28/17 - 1. Surgical preparation left BKA stump with excision dehiscence amputation stump ulcer and partial ostectomy tibia for osteomyelitis. 2. Reconstruction with re-advancement muscle flap and bipedicle periosteal anterior fascial advancement flap and secondary wound closure revision. Wound care - DC'd SNAP VAC due to no longer seeing improvement in his ulcer. Will start silver dressing changes. Will apply for Epicord and epifix. Patient would benefit from these products to help with ulcer healing. Would like to start with epicord in the tunneling area to help get it closed. Did a 4 week trial of [place] (able to obtain 4 samples) with adaptic wound veil under the SNAP vac with improvement. This is one of the reasons that Epicord and Epifix would help to improve his ulcer. Operative culture - Enterobacter cloacae in the soft tissue and bone. He was treated with Zosyn perioperatively and was sent to TCU on Cipro. When the Patholoy came back positive for osteomyelitis, a PICC line was placed and he was started on Vancomycin and Zosyn. He finished his IV antibiotics on 12/17/17. He was discharged on Doxycycline and Levaquin. Pathology - acute and chronic osteomyelitis. On 11/14/17, he fell out of bed on his stump when he tried to maneuver into his wheelchair. He sustained a superficial wound dehiscence that was treated initially with Aquacel Silver. His Prealbumin on 10/29/17 was 28.3. Encourage nutritional supplementation with protein to help the healing process. Today he denies any fever. His appetite is good. The ulcer is stable with good granulation tissue and no exposed bone. Has tunneling at the 9 o'clock position of the ulcer. Progress of Wound: Stable. - Physical Exam Vital Signs Temp Pulse Resp BP 97.9 F 92 18 141/74 H 06/02/18 13:03 06/02/18 13:03 06/02/18 13:03 06/02/18 13:03 General: Alert, Oriented x3, Cooperative HEENT: Atraumatic Oral: Moist Mucosa Lungs: Normal air movement Cardiovascular: Regular rate Extremities: No edema, Capillary Refill Less than 3 Seconds Skin: Ulcer/ Wound - Left BKA stump ulcer Wound Measurements and Assessment WC - Nurse 1 - General Ulcer Measurement Start: 05/19/18 13:41 Freq: Status: Active Protocol: Activity Type Activity Date Activity User E-Sign Co-Sign Detail Recorded Client Recorded Date Recorded By Document 06/02/18 13:03 DL [id number] 06/02/18 13:10 DL 06/02/18 13:03 Wound Center Nurse 1 [Ulcer Assessment] #24 Left BKA dehisced incision -Combined with other wound No -Current Size (cm) - Length 0.5 -Current Size (cm) - Width 0.8 -Current Size (cm) - Depth 0.3 -Total Square Cm 0.40 -Tunneling Yes -Tunneling Position (O'clock) 9 -Tunneling Distance (cm) 2 -Undermining/Tunneling No -Circular Undermining No -Exudate Amt Medium -Exudate Type Serosanguineous -Wound Margin Distinct, Outline Attached -Granulation Amt Large (67-100%) -Granulation Quality [place] -Slough/Fibrin Yes -Necrosis Amt Small (1-33%) -Necrotic Tissue Type Adherent Slough -Structure Exposed N/A -Texture (Yael-wound Skin Appearance) Assessed -Moisture (Yael-wound Skin Appearance Assessed ) -Color (Yael-wound Skin Appearance) Assessed -Temperature (Yael-wound Skin No Abnormality Appearance) (Pt Warm) -Tenderness on Palpation (Yael-wound No Skin Appearance) -Ulcer Cleansing Rinsed/ Irrigated with Saline -Foul Odor after Cleansing No -Anesthetic Used 4% Lidocaine Solution WC - Nurse 2 - General Ulcer CM Notes Start: 05/19/18 13:41 Freq: Status: Active Protocol: Activity Type Activity Date Activity User E-Sign Co-Sign Detail Recorded Client Recorded Date Recorded By Document 06/02/18 13:41 [id number] 06/02/18 13:43 06/02/18 13:41 Wound Center Nurse 2 [Procedure/Treatment] -Time 13:41 -Correct Patient Yes -Correct Side, Site, Position Yes -Correct Procedure Yes -Procedure Performed Yes -Type of Procedure Debridement -Clinical Debridement Subcutaneous -Post Debridement Size (cm) - Length 0.5 -Post Debridement Size (cm) - Width 1.4 -Post Debridement Size (cm) - Depth 2.4 -Total Square Cm 0.70 -Wound/Ulcer Outcome Not Healed -Ulcer Cleansing Rinsed/ Irrigated with Saline -Foul Odor after Cleansing No -Bioengineered Tissue No -Bleeding Controlled with Pressure -Offloading No -Treatment Response Procedure Tolerated Well [See Physician Procedure note for Specifics] Pain Scale: 0-10 Numeric [Pain] -Is Patient Pain Free? Yes Musculoskeletal: No Tenderness to Palpation of Joints or Extremities Neurological: Neuro grossly intact Psych/Mental Status: Normal Affect, Appropriate Debridement Note Post-Debridement Measurements/Treatment - Nurse 2 - General Ulcer CM Notes Start: 05/19/18 13:41 Freq: Status: Active Protocol: Activity Type Activity Date Activity User E-Sign Co-Sign Detail Recorded Client Recorded Date Recorded By Document 05/19/18 14:03 [id number] 05/19/18 14:06 Document 06/02/18 13:41 [id number] 06/02/18 13:43 05/19/18 06/02/18 14:03 13:41 Wound Center Nurse 2 #24 Left BKA dehisced incision -Time 14:03 13:41 -Correct Patient Yes Yes -Correct Side, Site, Position Yes Yes -Correct Procedure Yes Yes -Procedure Performed Yes Yes -Type of Procedure Debridement Debridement -Clinical Debridement Subcutaneous Subcutaneous -Post Debridement Size (cm) - Length 0.8 0.5 -Post Debridement Size (cm) - Width 2.3 1.4 -Post Debridement Size (cm) - Depth 0.4 2.4 -Total Square Cm 1.84 0.70 -Wound/Ulcer Outcome Not Healed Not Healed -Ulcer Cleansing Rinsed/ Rinsed/ Irrigated with Irrigated with Saline Saline -Foul Odor after Cleansing No No -Bioengineered Tissue No No -Bleeding Controlled with Pressure Pressure -Other tunnel--1.1cm -Offloading No No -Treatment Response Procedure Procedure Tolerated Well Tolerated Well Pain Scale: 0-10 Numeric Is Patient Pain Free? Yes Yes Wound debrided: Left BKA stump Laterality: Left Type of Debridement: Excisional debridement Anesthesia Used: 5% Lidocaine Gel Depth: Down to and including healthy tissue, in the subcutaneous layer Percentage of wound debrided: 100 Instrument Used: 5mm curette Tissue Removed: Subcutaneous tissue and slough Severity: Limited To Skin Breakdown Amount of bleeding with debridement: Mild Bleeding Controlled with: Pressure Patient tolerated procedure well Assessment/Plan Active Problems (Last Reviewed 09/01/17 @ 13:36 by Shanique Martinez) Nonhealing ulcer of left lower extremity (Chronic) Obesity (BMI 30-39.9) (Chronic) Osteomyelitis (Chronic) Dehiscence of amputation stump (Chronic) Assessment: 1. Nonhealing ulcer left BKA stump after a fall. 2. Infection of left BKA stump. 3. Osteomyelitis. 4. MRSA. 5. Diabetes mellitus. 6. Former smoker. 7. s/p surgical preparation left BKA stump with excision dehiscence amputation stump ulcer and partial ostectomy tibia for osteomyelitis and reconstruction with re-advancement muscle flap and bipedicle periosteal anterior fascial advancement flap and secondary wound closure revision. Plan: Debridement done as documented above. Procedure was well-tolerated. The SNAP vac was discontinued due to no improvement in the ulcer for over a week. Will do silver dressing changes daily with a piece that is placed into the tunnel for a wick to help remove the moisture out of the tunnel. There is no improvement to the tunneling area. I would like him to see Dr. Rodriguez to discuss a surgical options due to the depth of the tunnel and there has not been any improvement even with the SNAP vac. Continue increased protein intake. Elevate lower extremities when seated and in bed. He was advised to call with any questions or concerns. Follow up with me next week and he will see Dr. Rodriguez on 06/15. Code Visit 111xxx-113xx: [id number] Aimee subq tissue 20 sq cm/<
[2018-06-15 08:20] VITALS: BP 151/80; PULSE 84; RESP 18; TEMP 36.5; BMI 40.1
--- NOTE | 2018-06-15 17:30 | PCM.WC.PN ---
Type of Wound Date of Service: 06/15/18 Chief Complaint: Nonhealing ulcer left BKA stump after a fall. History of Wound: Surgery 10/28/17 - 1. Surgical preparation left BKA stump with excision dehiscence amputation stump ulcer and partial ostectomy tibia for osteomyelitis. 2. Reconstruction with re-advancement muscle flap and bipedicle periosteal anterior fascial advancement flap and secondary wound closure revision. Wound care - Silver. Operative culture - Enterobacter cloacae in the soft tissue and bone. He was treated with Zosyn perioperatively and was sent to TCU on Cipro. When the Patholoy came back positive for osteomyelitis, a PICC line was placed and he was started on Vancomycin and Zosyn. He finished his IV antibiotics on 12/17/17. He was discharged on Doxycycline and Levaquin. Pathology - acute and chronic osteomyelitis. On 11/14/17, he fell out of bed on his stump when he tried to maneuver into his wheelchair. He sustained a superficial wound dehiscence that was treated initially with Aquacel Silver. His Prealbumin on 10/29/17 was 28.3. Encouraged nutritional supplementation with protein to help the healing process. Today he denies any fever. His appetite is good. Progress of Wound: Stable. - Physical Exam Vital Signs Temp Pulse Resp BP 97.7 F L 84 18 151/80 H 06/15/18 08:20 06/15/18 08:20 06/15/18 08:20 06/15/18 08:20 Wound Measurements and Assessment WC - Nurse 1 - General Ulcer Measurement Start: 05/19/18 13:41 Freq: Status: Active Protocol: Activity Type Activity Date Activity User E-Sign Co-Sign Detail Recorded Client Recorded Date Recorded By Document 06/15/18 08:20 AN [id number] 06/15/18 08:32 AN 06/15/18 08:20 Wound Center Nurse 1 [Ulcer Assessment] #24 Left BKA dehisced incision -Current Size (cm) - Length 0.3 -Current Size (cm) - Width 0.7 -Current Size (cm) - Depth 2.7 -Total Square Cm 0.21 -Classification - Thickness Full Thickness without Exposed Support Structure -Exudate Amt Small -Exudate Type Serosanguineous -Wound Margin Distinct, Outline Attached -Granulation Amt Medium (34-66%) -Granulation Quality Pale [place] -Slough/Fibrin Yes -Necrosis Amt Large (67-100%) -Necrotic Tissue Type Adherent Slough -Structure Exposed Fat Layer Exposed -Texture (Yael-wound Skin Appearance) Assessed -Moisture (Yael-wound Skin Appearance Assessed ) -Color (Yael-wound Skin Appearance) Assessed -Temperature (Yael-wound Skin No Abnormality Appearance) (Pt Warm) -Tenderness on Palpation (Yael-wound No Skin Appearance) -Ulcer Cleansing Rinsed/ Irrigated with Saline -Foul Odor after Cleansing No -Anesthetic Used 4% Lidocaine Solution - Nurse 2 - General Ulcer CM Notes Start: 05/19/18 13:41 Freq: Status: Active Protocol: Activity Type Activity Date Activity User E-Sign Co-Sign Detail Recorded Client Recorded Date Recorded By Document 06/15/18 08:49 [id number] 06/15/18 08:49 06/15/18 08:49 Wound Center Nurse 2 [Procedure/Treatment] -Time 08:49 -Correct Patient Yes -Correct Side, Site, Position Yes -Correct Procedure Yes -Procedure Performed Yes -Type of Procedure Debridement -Clinical Debridement Subcutaneous -Post Debridement Size (cm) - Length 0.3 -Post Debridement Size (cm) - Width 0.8 -Post Debridement Size (cm) - Depth 2.7 -Total Square Cm 0.24 -Wound/Ulcer Outcome Not Healed -Ulcer Cleansing Rinsed/ Irrigated with Saline -Foul Odor after Cleansing No -Bioengineered Tissue No -Bleeding Controlled with Pressure -Offloading No -Treatment Response Procedure Tolerated Well [See Physician Procedure note for Specifics] Pain Scale: 0-10 Numeric [Pain] -Is Patient Pain Free? Yes Debridement Note Post-Debridement Measurements/Treatment - Nurse 2 - General Ulcer CM Notes Start: 05/19/18 13:41 Freq: Status: Active Protocol: Activity Type Activity Date Activity User E-Sign Co-Sign Detail Recorded Client Recorded Date Recorded By Document 05/19/18 14:03 [id number] 05/19/18 14:06 Document 06/02/18 13:41 [id number] 06/02/18 13:43 Document 06/15/18 08:49 [id number] 06/15/18 08:49 05/19/18 06/02/18 06/15/18 14:03 13:41 08:49 Wound Center Nurse 2 #24 Left BKA dehisced incision -Time 14:03 13:41 08:49 -Correct Patient Yes Yes Yes -Correct Side, Site, Position Yes Yes Yes -Correct Procedure Yes Yes Yes -Procedure Performed Yes Yes Yes -Type of Procedure Debridement Debridement Debridement -Clinical Debridement Subcutaneous Subcutaneous Subcutaneous -Post Debridement Size (cm) - Length 0.8 0.5 0.3 -Post Debridement Size (cm) - Width 2.3 1.4 0.8 -Post Debridement Size (cm) - Depth 0.4 2.4 2.7 -Total Square Cm 1.84 0.70 0.24 -Wound/Ulcer Outcome Not Healed Not Healed Not Healed -Ulcer Cleansing Rinsed/ Rinsed/ Rinsed/ Irrigated with Irrigated with Irrigated with Saline Saline Saline -Foul Odor after Cleansing No No No -Bioengineered Tissue No No No -Bleeding Controlled with Pressure Pressure Pressure -Other tunnel--1.1cm -Offloading No No No -Treatment Response Procedure Procedure Procedure Tolerated Well Tolerated Well Tolerated Well Pain Scale: 0-10 Numeric Is Patient Pain Free? Yes Yes Yes Wound debrided: #24 Left BKA stump. Laterality: Left Wound Grade/Stage: 4. Type of Debridement: Excisional debridement Anesthesia Used: 4% Lidocaine Solution Depth: Down to and including healthy tissue, in the subcutaneous layer Percentage of wound debrided: 100 Instrument Used: 3mm curette Tissue Removed: subcutaneous tissue. Severity: Fat Layer Exposed Amount of bleeding with debridement: Mild Bleeding Controlled with: Pressure Patient tolerated procedure well, - - a wound culture was obtained today. Assessment/Plan Assessment: 1. Nonhealing ulcer left BKA stump after a fall. 2. Infection of left BKA stump. 3. Osteomyelitis. 4. MRSA. 5. Diabetes mellitus. 6. Former smoker. 7. s/p surgical preparation left BKA stump with excision dehiscence amputation stump ulcer and partial ostectomy tibia for osteomyelitis and reconstruction with re-advancement muscle flap and bipedicle periosteal anterior fascial advancement flap and secondary wound closure revision. Plan: The stump ulcer continues to improve slowly. There is still a persistent tract medially. I suspect it tracks down to bone since he has osteomyelitis. Right now it is hard to adequately pack the wound because of the depth of the ulcer and the small skin opening. Recommend operative debridement by unroofing this area where the tract is. This should make the wound care a little easier. If it tracks to the bone, then a partial ostectomy for osteomyelitis would also be done. Will apply Amniofill placental connective tissue powder containing stem cells into the wound to help stimulate healing. This will be followed by the VAC. He is finished with his antibiotics (Vancomycin and Zosyn) for osteomyelitis and for MRSA and Enterobacter cloacae. He was placed on Doxycycline and Levaquin and will continue them. His Prealbumin from 10/29/17 was 28.3. Encourage nutritional supplementation with protein to help the healing process. His HgbA1c is 6.7. If osteomyelitis is documented with this next surgery, he would be a candidate for HBO treatments. Before any attempts at wound closure in the future, he would need a partial ostectomy of his tibial bone to evaluate for osteomyelitis. If we cannot eradicate the osteomyelitis in his tibial bone, he may ultimately need an AKA. Patient voices understanding and wants to pursue aggressive treatments in order to salvage the BKA stump. Will schedule the surgery for next week. Followup 2 weeks. Would like to order an xray of the stump. Would also like to get an MRI if it can be done this week. I don't want to postpone the surgery waiting for approval of the MRI. Prior to surgery, a wound culture was obtained today. A positive culture will necessitate antibiotic therapy. It will help me direct which antibiotic I can use perioperatively. Patient was informed of the risks and complications of the procedure including alternatives to surgery. These were discussed with him personally. He voices understanding and wishes to proceed. Surgery will be done under general anesthesia and tourniquet control with a surgical observation overnight stay in the hospital.
== END 2018-06-16 23:59 ==
LOC: WC 08:00
PROVIDERS: Family Provider Family Medicine; PCP Family Medicine; Visit Provider Surgery
DX: T87.81 Dehiscence of amputation stump (principal); Y83.8 Other surgical procedures as the cause of abnormal reaction of the patient, or of later complication, without mention of misadventure at the time of the procedure; M86.662 Other chronic osteomyelitis, left tibia and fibula; E66.9 Obesity, unspecified; Z71.3 Dietary counseling and surveillance; Z89.512 Acquired absence of left leg below knee; Z87.891 Personal history of nicotine dependence; Z86.14 Personal history of Methicillin resistant Staphylococcus aureus infection; T87.44 Infection of amputation stump, left lower extremity
CPT/HCPCS: 11042; 87070; 87075; 87077; 87186; 87205

== ENCOUNTER 2018-06-22 09:15 | Observation (INO) | payer MEDICARE, SELFPAY ==
--- NOTE | 2018-06-21 14:15 | HP.PCM_ITS ---
History and Physical Date of Admission: 06/22/18 HISTORY OF PRESENT ILLNESS 63 year old man presents with a nonhealing ulcer left BKA stump after a fall that he sustained in TCU after his last surgery on 10/28/17 where he underwent surgical preparation left BKA stump with excision dehiscence amputation stump ulcer and partial ostectomy tibia for osteomyelitis and reconstruction with re-advancement muscle flap and bipedicle periosteal anterior fascial advancement flap and secondary wound closure revision. Operative culture showed Enterobacter cloacae in the soft tissue and bone. He was treated with Zosyn perioperatively and was sent to TCU on Cipro. When the Patholoy came back positive for osteomyelitis, a PICC line was placed and he was started on Vancomycin and Zosyn. He finished those IV antibiotics on 12/17/17. He was discharged on Doxycycline and Levaquin. Pathology showed acute and chronic osteomyelitis. On 11/14/17, he fell out of bed on his stump when he tried to maneuver into his wheelchair. He sustained a superficial wound dehiscence that was treated initially with Aquacel Silver. His Prealbumin on 10/29/17 was 28.3. Encouraged nutritional supplementation with protein to help the healing process. He has been coming to the Wound Center for the last several months. The ulcer has closed up nicely except for a persistent tract medially. The skin opening is small and it is getting h harder to pack this ulcer. Also I suspect this persistent tract extends down to bone since he does have a history of osteomyelitis. Today he denies any fever. He presents for further operative debridement with possible bony excision as well. To help the healing process will place Amniofill a placental connective tissue powder with stem cells, into the base of the ulcer. PAST MEDICAL HISTORY Diabetes mellitus with neuropathy. Hypertension. Venous insufficiency. PETRA. Obesity. Hyperlipidemia. Charcot neuropathic osteoarthropathy. Rocker bottom left foot. Amputation status right foot. Anemia. Chronic pain syndrome. Depression. LVH. PVD. Vitamin D deficiency. Former smoker. MRSA. PAST SURGICAL HISTORY Right hallux amputation at MTP joint - 12/29/14. Excisional debridement including fascia left great toe - 04/03/15. Partial 4th toe amputation right foot at PIP joint - 12/09/15. Bone biopsy calcaneal cuboid bone left foot and excisional debridement left plantar foot ulceration - 10/18/16. Right foot trans metatarsal amputation - 03/04/16. Debridement left foot ulcer with versajet including necrotic muscle and widespread debridement plantar foot and incision and drainage left foot - 01/24/17. Surgical preparation left plantar foot with incision and drainage and excisional debridement nonhealing infected diabetic ulcer with fasciitis (30 cm2) and surgical preparation left medial foot with incision and drainage and excisional debridement nonhealing infected diabetic ulcer with fasciitis (24 cm2) - 03/25/17. surgical preparation left plantar foot with incision and drainage and excisional debridement nonhealing MRSA diabetic ulcer (42 cm2) and partial ostectomy cuboid bone for osteomyelitis - 05/30/17. Left below knee amputation - 06/24/17 Surgical preparation left BKA stump with excision dehiscence amputation stump ulcer and partial ostectomy tibia for osteomyelitis and reconstruction with re- advancement muscle flap and bipedicle periosteal anterior fascial advancement flap and secondary wound closure revision - 10/28/17. MEDICATIONS Wellbutrin. Prozac. Neurontin. Humalog. Novolin. Cozaar. Glucophage. Lipitor. Triamterene-HCTZ. Percocet. Pantoprazole. Ferrex. ALLERGIES cefepime - Hives. lisinopril - cough. sulfa - turned red. Penicillins - unknown. FAMILY HISTORY Maternal - Cancer, Heart Disease. Paternal - Heart Disease. SOCIAL HISTORY Lives: Spouse/ Significant Other Smoking Status: Former smoker Tobacco Use: Non-smoker Alcohol: None Drugs: None REVIEW OF SYSTEMS Constitutional: Reports: Malaise. Denies: Fever, Fatigue Eyes: Denies: Cataracts HEENT: Denies: Nasal Congestion, Sore Throat Cardiovascular: Denies: Chest Pain Respiratory: Denies: Cough, Shortness of Breath Gastrointestinal: Denies: Constipation, Diarrhea, Nausea, Vomiting Genitourinary: Denies: Frequency, Hematuria Musculoskeletal: Reports: Foot Pain. Denies: Back Pain, Hand Pain, Neck Pain Skin: Reports: Wounds - nonhealing ulcer left plantar foot. Neurological: Denies: Headaches Psychiatric: Reports: Depression. Denies: Anxiety Endocrine: Reports: - - has diabetes mellitus. Denies: Polydipsia, Polyuria Hematologic/ Lymphatic: Reports: Anemia. Denies: Easy Bruising, Hx of blood clot PHYSICAL EXAMINATION General: Alert, Oriented x3 HEENT: Atraumatic, PERRLA Neck: Supple Lungs: Clear to auscultation Cardiovascular: Regular rate, Regular Rhythm Abdomen: Soft, Non-Distended Extremities: No clubbing, No cyanosis. There is a nonhealing ulcer left BKA stump in the central area of the stump incision. There is medial tracking. Measures 0.3 x 0.7 x 2.7 cm. Can't see the base of the ulcer. The stump is soft with decreased swelling. Slight tenderness to palpation. Neurological: Cranial nerves II-XII grossly intact Psych/Mental Status: Normal Affect, Appropriate ASSESSMENT 1. Nonhealing ulcer left BKA stump. 2. Infection of left BKA stump. 3. Osteomyelitis. 4. History of MRSA. 5. Diabetes mellitus. 6. Former smoker. PLAN The stump ulcer continues to improve slowly. There is still a persistent tract medially. I suspect it tracks down to bone since he has osteomyelitis. Right now it is hard to adequately pack the wound because of the depth of the ulcer and the small skin opening. Recommend operative debridement by unroofing this area where the tract is. This should make the wound care a little easier. If it tracks to the bone, then a partial ostectomy for osteomyelitis would also be done. Will apply Amniofill placental connective tissue powder containing stem cells into the wound to help stimulate healing. This will be followed by the VAC. He is finished with his antibiotics (Vancomycin and Zosyn) for osteomyelitis and for MRSA and Enterobacter cloacae. He was placed on Doxycycline and Levaquin and will continue them. His most recent wound culture from 06/15/18 showed Staphylococcus epidermidis. Perioperatively he will be treated with Vancomycin and Zosyn. His Prealbumin from 10/29/17 was 28.3. Encourage nutritional supplementation with protein to help the healing process. His HgbA1c is 6.7. If osteomyelitis is documented with this next surgery, he would be a candidate for HBO treatments. Before any attempts at wound closure in the future, he would need a partial ostectomy of his tibial bone to evaluate for osteomyelitis. He will also need a repeat HgbA1c which needs to be less than 8 before proceeding. If we cannot eradicate the osteomyelitis in his tibial bone, he may ultimately need an AKA. Patient voices understanding and wants to pursue aggressive treatments in order to salvage the BKA stump. Will schedule the surgery for next week. Followup 2 weeks. An xray of the stump was done last week which was negative for bony abnormalities. I wanted an MRI but could not get it approved in a timely fashion and I wanted to get going on this nonhealing ulcer. Patient was informed of the risks and complications of the procedure including alternatives to surgery. These were discussed with him personally. He voices understanding and wishes to proceed. Surgery will be done under general anesthesia and tourniquet control with a surgical observation overnight stay in the hospital.
[2018-06-22] VITALS (12 sets, daily range): BP systolic 117–142; BP diastolic 54–83; PULSE 72–91; RESP 16–20; TEMP 36.2–36.8; O2SAT 93–100; BMI 35.6; BMI 129.3; BMI 40.6
--- NOTE | 2018-06-22 06:47 | EKG12_ITS ---
Test Reason : PREOP Blood Pressure : / mmHG Vent. Rate : 074 BPM Atrial Rate : 074 BPM P-R Int : 168 ms QRS Dur : 088 ms QT Int : 376 ms P-R-T Axes : 049 -37 067 degrees QTc Int : 417 ms Normal sinus rhythm Left axis deviation Abnormal ECG When compared with ECG of 20-JUN-2017 05:03, No significant change was found Confirmed by ADOLFO MADSEN, MAC ([id number]), editorial director FABIANA WHEELER ([id number]) on 06/23/2018 2:07:52 PM Referred By: Lucho Rodriguez Confirmed By:MAC MATA MD
[2018-06-22 07:05] LABS: Hematocrit 38.6 % (40-54); Hemoglobin 12.9 g/dl (13.0-16.5); Mean Corp Hgb Conc 33.4 g/gl (32-36); Mean Corpuscular Volume 89.8 fL (80-94); Mean Platelet Vol. 8.9 fl (6.2-12.0); Platelet Count 326 K/mm3 (150-450)
[2018-06-22 07:06] LABS: International Normalized Ratio 0.9; Scan Indicated on CBC? Y/N NO
[2018-06-22 07:07] LABS: Partial Thromboplast Time 29.2 Seconds (24.1-36.2)
[2018-06-22 07:08] LABS: Anion Gap 5 (5-15); BUN 19 mg/dL (7-18); BUN/Creat Ratio 19.7 RATIO (10-20); Chloride 103 mmol/L (98-107); Creatinine, Serum 0.96 mg/dL (0.70-1.30); EST Glomerular Filtration Rate 84 mL/min (>60); Est Glom Filt Rate - Afr Amer 101 mL/min (>60); Glucose 189 mg/dL (74-106); Potassium 4.1 mmol/L (3.5-5.1); Sodium Level 138 mmol/L (136-145)
[2018-06-22] MEDS: Vancomycin IV 1,000 MG/200 ML BAG 200 MG IV (07:25)
--- NOTE | 2018-06-22 08:00 | UL_PTH ---
PATIENT: BASIL MARRERO LOC: [facility] U#:[id number] AGE/SX: 63/M ROOM: OR313 RE06/22/[address]: Dr. Lucho Rodriguez MD : [id number] BED: 1 DIS: 06/23/2018 SPEC #: [id number] RECD: 06/22/18 09:32 STATUS: DENA REPolly #: [id number] MICAELA: 06/22/18 08:[address]: Lucho Rodriguez DEPT: SURGICAL PATHOLOGY RECD BY: Sotero Soria ENTERED: 06/22/18 09:40 SP TYPE: ULCER OTHR DR: Dr. Orion Cordova DO Tissues: Left leg Procedures: Surgery Specimen Level III HEADER OPERATION: Surgical prep BKA stump with I & D, excisional debridement PRE-OP DIAGNOSIS: Nonhealing ulcer left BKA stump, infection of left BKA stump; osteomyelitis TISSUE SUBMITTED: Nonhealing ulcer left BKA stump MICROSCOPIC DIAGNOSIS Nonhealing ulcer left BKA stump: Skin with underlying tissue with dense fibrosis, chronic inflammation, foreign body giant cell reaction and granulation tissue reaction. INDIRA:negra 06/23/18 MICROSCOPIC DESCRIPTION Slides are reviewed. GROSS DESCRIPTION Received in fixative is one container labeled with the patient's name and designated nonhealing ulcer left BKA stump. The specimen consists of an ulcerated portion of skin and a separate portion of soft tissue. The skin portion measures 3 x 0.9 cm and is excised to a depth of 2 cm. The skin surface is harris with an eccentrically located deep opened ulcer measuring 0.7 x 0.5 cm. The ulcer depth extends through the tissue portion and involves the tissue base. The specimen is inked and serially cross-sectioned. The second portion of tissue received consists of harris-white to reddish-pink soft tissue measuring 2.4 x 2 x 0.6 cm. An area of possible skin is present measuring 1 x 0.5 cm. The specimen is serially cross-sectioned. Wax Molder sections are submitted in two cassettes. / CE:negra 06/22/18 TC:5 CPT: 54148
[2018-06-22 08:01] LABS: Hemoglobin A1c 8.6 % (4.2-6.3)
[2018-06-22 08:26] LABS: Bedside Glucose 169 mg/dL (70-110)
--- NOTE | 2018-06-22 09:11 | OP.PCM_ITS ---
Report of Operation Date of Procedure: 06/22/18 Pre-Operative Diagnosis: 1. Nonhealing ulcer left BKA stump. 2. Infection of left BKA stump. 3. Osteomyelitis. 4. History of MRSA. 5. Diabetes mellitus. 6. Former smoker. Post-Operative Diagnosis: Same. Surgery/Procedure Performed:: Surgical preparation left BKA stump with incision and drainage and excisional debridement nonhealing infected diabetic stump ulcer (5.25 cm2) and placement Amniofill placental connective tissue powder. Description of Surgical Findings:: 63 year old man presents with a nonhealing ulcer left BKA stump after a fall that he sustained in TCU after his last surgery on 10/28/17 where he underwent surgical preparation left BKA stump with excision dehiscence amputation stump ulcer and partial ostectomy tibia for osteomyelitis and reconstruction with re-advancement muscle flap and bipedicle periosteal anterior fascial advancement flap and secondary wound closure revision. Operative culture showed Enterobacter cloacae in the soft tissue and bone. He was treated with Zosyn perioperatively and was sent to TCU on Cipro. When the Patholoy came back positive for osteomyelitis, a PICC line was placed and he was started on Vancomycin and Zosyn. He finished those IV antibiotics on 12/17/17. He was discharged on Doxycycline and Levaquin. Pathology showed acute and chronic osteomyelitis. On 11/14/17, he fell out of bed on his stump when he tried to maneuver into his wheelchair. He sustained a superficial wound dehiscence that was treated initially with Aquacel Silver. His Prealbumin on 10/29/17 was 28.3. Encouraged nutritional supplementation with protein to help the healing process. He has been coming to the Wound Center for the last several months. The ulcer has closed up nicely except for a persistent tract medially. The skin opening is small and it is getting h harder to pack this ulcer. Also I suspect this persistent tract extends down to bone since he does have a history of osteomyelitis. Today he denies any fever. He presents for further operative debridement with possible bony excision as well. To help the healing process will place Amniofill a placental connective tissue powder with stem cells, into the base of the ulcer. Patient was informed of the risks and complications of the procedure including alternatives to surgery. These were discussed with the patient personally. Patient voices understanding and wishes to proceed. Size of defect left BKA stump - 3.5 x 1.5 x 4 cm. I used AmnioFill Placental Connective Tissue Powder, 500 mg. Reorder Number - [id number]. Lot Number - [id number]. Expiration - February 17, 2023. hat and cap opener: None Type of Anesthesia:: General Specimen's removed: 1. Nonhealing diabetic ulcer left BKA stump to Pathology and Microbiology. 2. MRSA Wound DNA by PCR. Drains: None. Estimated Blood Loss (mL): 25 ml. Description of Procedure: Patient was taken to OR in supine position and was placed under general anesthesia. The left BKA stump was prepped and draped in the usual fashion. SCD was placed on right leg for DVT prophylaxis. Perioperative antibiotics were given intravenously. Using xylocaine with epinephrine, the stump ulcer was infiltrated. After waiting 5 minutes for the anesthetic to take effect, I proceeded with incision and drainage of the infected ulcer down into the subcutaneous tissue. Some yellowish fluid was seen. This pocket of fluid could explain why it didn't heal. A lot of fat necrosis was present. The firmness was excised and debrided until soft tissue was palpated. The bone was palpable but was not exposed. So no partial ostectomy was done today. The nonhealing ulcer did not tract down to the bone as was suspected preoperatively because of his history of osteomyelitis. The wound was copiously irrigated with saline. Hemostasis was obtained with electrocautery. Half the soft tissue was sent to Pathology for analysis to rule out carcinoma and half the soft tissue was sent to Microbiology for culture. A positive culture may necessitate antibiotic modification. His preop culture showed Staphylococcus epidermidis and Anaerobic cocci. An MRSA Wound DNA by PCR was also sent because of his previous history of MRSA. The size of the defect left BKA stump after incision and drainage and excisional debridement is 3.5 x 1.5 x 4 cm or 5.25 cm2. In order to augment the healing process, I placed Amniofill placental connective tissue powder with stem cells into the base of the ulcer. I used 500 mg. I then secured a piece of adaptic to the wound to keep the Amniofill in place with 3-0 Monocryl simple interrupted sutures. I then placed Aquacel Silver over the adaptic followed by 4x4 gauze and Kerlix gauze and a compression CONCHIS wrap. Patient tolerated the procedure well and was sent to PACU in satisfactory condition. Patient will be sent upstairs for continued postop care. I will apply the VAC tomorrow. Grafts/Implants Used: Amniofill placental connective tissue powder. - Complications None. - Admit VTE Documentation VTE Present on Admission: No VTE Mechan Device Prophylaxis: SCD's VTE Pharm Prophylaxis ordered?: No Code Visit Surgery Charges CPT - 30162 ICD-10 - T87.89, T87.44, M86.9, Z86.14, E11.622, Z89.512, Z87.891 40135 T87.44, T87.89, M86.9, Z86.14, E11.622, Z89.512, Z87.891
[2018-06-22 09:31] LABS: Bedside Glucose 174 mg/dL (70-110)
[2018-06-22 11:05] LABS: Bedside Glucose 162 mg/dL (70-110)
--- NOTE | 2018-06-22 11:12 | NURSING ---
PT DIAPORETIC-BLOOD SUGAR CJHECKED AND IS 162, BLANKETS REMOVED, 1 BLANKET LEFT ON-WILL MONITOR
[2018-06-22 11:31] LABS: M R Staph aureus DNA By PCR Negative (Negative); Probe Check PASS; Specimen Processing Control PASS; Staph aureus DNA By PCR NEGATIVE (Negative)
[2018-06-22] MEDS: Lactated Ringers 1,000 ML 60 ML IV (11:42)
[2018-06-22] MEDS: buPROPion (XL) 150 MG TABLET.XL PO (11:42)
[2018-06-22] MEDS: Insulin Lispro 100 UNIT/ML INSULN.PEN 20 UNIT SC ×2 (11:42→17:07)
[2018-06-22] MEDS: Docusate Sodium 100 MG Capsule PO ×2 (11:42→21:52)
[2018-06-22] MEDS: Gabapentin 800 MG Tablet PO ×3 (11:43→21:52)
[2018-06-22] MEDS: Acetaminophen 325 MG Tablet 650 MG PO (11:43)
--- NOTE | 2018-06-22 14:04 | PCM.RX.CS ---
Consult Pharmacy has been consulted to manage selected antiobiotic: Vancomycin Type of Consult: New start Suspected Infection: Osteomyelitis Prior Doses of Antibiotics Received/Current Regimen: Patient received 1gm iv preop Labs: Sodium 138 mmol/L (136-145) 06/22/18 06:50 Potassium 4.1 mmol/L (3.5-5.1) 06/22/18 06:50 Chloride 103 mmol/L (98-107) 06/22/18 06:50 Carbon Dioxide 30.0 mmol/L (21.0-32.0) 06/22/18 06:50 Anion Gap 5 (5-15) 06/22/18 06:50 BUN 19 mg/dL (7-18) H 06/22/18 06:50 Creatinine 0.96 mg/dL (0.70-1.30) 06/22/18 06:50 Est GFR (MDRD) Af Amer 101 mL/min (>60) 06/22/18 06:50 Est GFR (MDRD) Non-Af 84 mL/min (>60) 06/22/18 06:50 BUN/Creatinine Ratio 19.7 RATIO (10-20) 06/22/18 06:50 Glucose 189 mg/dL (74-106) H 06/22/18 06:50 Weight used for dosin kg Estimated Creatinine Clearance: 119 ml/min Goal Trough: 15-20 mcg/mL Pharmacy Plan for Drug Dosing: Will use adjusted body weight for calculation of dosing due to patient's weight. Renal function reviewed and initial dosing determined to be 1750mg iv q12h. Vancomycin trough ordered for 5.8.19 before 4th dose of 1750mg. Will reevaluate dose at that time based on level reported. Pharmacy Service will continue to monitor and adjust dosing as required. Follow-Up Labs: Trough Vancomycin - 5.8.19 @8613
[2018-06-22] MEDS: oxyCODONE 5 MG Tablet 10 MG PO ×2 (17:06→21:58)
[2018-06-22] MEDS: diazePAM 5 MG Tablet PO ×2 (17:06→21:58)
[2018-06-22 17:16] LABS: Bedside Glucose 177 mg/dL (70-110)
[2018-06-22] MEDS: Atorvastatin Calcium 40 MG Tablet PO (21:52)
[2018-06-22] MEDS: Insulin NPH Human 100 UNITS/ML PEN 50 UNITS SC (21:52)
[2018-06-22 23:56] LABS: Bedside Glucose 172 mg/dL (70-110)
[2018-06-23 04:10] VITALS: BP 141/70; PULSE 81; RESP 17; TEMP 36.6; O2SAT 98
[2018-06-23] MEDS: Lactated Ringers 1,000 ML 60 ML IV (05:16)
[2018-06-23] MEDS: diazePAM 5 MG Tablet PO ×2 (05:23→10:40)
[2018-06-23] MEDS: oxyCODONE 5 MG Tablet 10 MG PO ×3 (05:23→15:40)
[2018-06-23 05:33] LABS: Hemoglobin 11.3 g/dl (13.0-16.5); Mean Corp Hgb Conc 32.3 g/gl (32-36); Mean Corpuscular Hgb 29.9 pg (27.0-32.0); Mean Corpuscular Volume 92.6 fL (80-94); Mean Platelet Vol. 9.2 fl (6.2-12.0); Platelet Count 273 K/mm3 (150-450); RBC Distribution Width SD 42.5 fl (35.1-43.9); Red Blood Count 3.78 M/mm3 (4.6-6.2); White Blood Count 6.3 K/mm3 (4.4-11.0)
[2018-06-23 05:35] LABS: Scan Indicated on CBC? Y/N NO
[2018-06-23 05:38] LABS: Erythrocyte Sedimentation Rate 11 mm/hr (0-20)
[2018-06-23 05:57] LABS: ALB/GLOB Ratio 1.1 RATIO (0.9-2.4); AST(SGOT) 25 U/L (15-37); Alanine Aminotransfer ALT/SGPT 30 U/L (16-61); Albumin, Serum 3.2 g/dL (3.2-5.0); Alkaline Phosphatase 83 U/L (45-117); Anion Gap 5 (5-15); BUN 16 mg/dL (7-18); BUN/Creat Ratio 12.9 RATIO (10-20); CRP 9.62 mg/L (0.0-3.0); Calcium,Total 8.6 mg/dL (8.5-10.1); Chloride 103 mmol/L (98-107); Creatinine, Serum 1.24 mg/dL (0.70-1.30); EST Glomerular Filtration Rate 63 mL/min (>60); Est Glom Filt Rate - Afr Amer 76 mL/min (>60); Estimated Creatinine Clearance 73.82 ml/min; Glucose 183 mg/dL (74-106); Potassium 4.7 mmol/L (3.5-5.1); Prealbumin 29.1 mg/dL (20.0-40.0); Protein, Total 6.2 g/dL (6.4-8.2); Sodium Level 140 mmol/L (136-145)
[2018-06-23 07:00] LABS: Bedside Glucose 174 mg/dL (70-110)
[2018-06-23 07:34] VITALS: O2SAT 98
[2018-06-23] MEDS: Insulin NPH Human 100 UNITS/ML PEN 50 UNITS SC (08:15)
[2018-06-23] MEDS: Insulin Lispro 100 UNIT/ML INSULN.PEN 20 UNIT SC ×2 (08:16→11:30)
[2018-06-23] MEDS: Gabapentin 800 MG Tablet PO ×2 (08:20→11:31)
[2018-06-23] MEDS: Pantoprazole Sodium 40 MG Tablet PO (08:20)
[2018-06-23] MEDS: Docusate Sodium 100 MG Capsule PO (08:20)
[2018-06-23] MEDS: buPROPion (XL) 150 MG TABLET.XL PO (08:21)
[2018-06-23] MEDS: FLUoxetine 20 MG Capsule 60 MG PO (08:21)
[2018-06-23 08:54] VITALS: PULSE 83
[2018-06-23 09:00] VITALS: BP 163/74; PULSE 83; RESP 18; TEMP 36.9; O2SAT 98
--- NOTE | 2018-06-23 09:46 | NURSING ---
wound photo: left stump
--- NOTE | 2018-06-23 10:26 | CASEMGMT ---
RN CM Assessment Presentation: I/D L BKA stump nonhealing ulcer. Intro role of CM and purpose of RN CM assessment to pt in room. Demographics, PCP and Pharmacy verified. Pt states he is doing well at home. His friend takes him to his wound center appointments. Per pt, no changes in his home environment. Wound nurse seeing patient. PCP: Dr. Cordova Specialists: Dr. Rodriguez Preferred Pharmacy: [facility] [place] Insurance: [employer] Prescription Benefit: yes. Denies difficulty with obtaining prescriptions. LNOK: Daughter Eun Corona Living Arrangements: Pt lives in one story home with friend, Lolita Reddy. Pt states he is moderately independent in ADL. Uses WC around home. Transportation: pt's friend drives him DME: Wheeled Walker, WC, BSC, ramp into home HHC: [facility] will see on dc for wound vac changes. Pt declined PT/OT through Home Care. Pt will also f/u with wound clinic 06/29/18 @ 0900. Reviewed with pt and he is agreeable to dc planning. Patient DC goals: Home DC PLAN: Home with HHS and f/u with wound clinic. DC appointments filled out and copy to go home with pt. Viky LEDBETTER RN ACM
[2018-06-23] MEDS: Triamterene 37.5MG/Hctz 25MG Capsule 1 CAP PO (10:36)
[2018-06-23] MEDS: Iron Polysaccharide Complex 150 MG CAPSULE PO (10:37)
[2018-06-23] MEDS: Losartan Potassium 100 MG Tablet PO (10:37)
[2018-06-23] MEDS: Acetaminophen 325 MG Tablet 650 MG PO (10:40)
[2018-06-23 11:41] LABS: Bedside Glucose 239 mg/dL (70-110)
--- NOTE | 2018-06-23 14:29 | NURSING ---
Pt switched over to the home VAC. pt has had home VAC in the past and denies questions. Good seal noted at 150mmHg low continuous suction.
[2018-06-23 14:30] VITALS: BP 143/55; PULSE 81; RESP 16; TEMP 36.8; O2SAT 94
--- NOTE | 2018-06-23 14:52 | DCINST_ITS ---
- Discharge Diagnoses Current Active Problems: Surgical preparation left BKA stump with incision and drainage and excisional debridement nonhealing infected diabetic stump ulcer (5.25 cm2) and placement Amniofill placental connective tissue powder. You will use the following diet at home:: Calorie/Carbohydrate Controlled (specify 1200, 1400, etc) - encourage nutritional supplementation with protein to help the healing process Discharge Activity: May Shower - when wound vac is changed May shower in (days): 3 Weight Bearing Status: Weight bearing as tolerated - on right leg Keep extremity elevated above heart level: Left Leg - keep left BKA stump elevated when sitting. Call your doctor if your incision/area has: Continuous Slow Oozing, Sudden Increased Bleeding, Increased Pain/ Swelling, Increased Redness, Foul Smelling Discharge, Swelling at the incision site Call your doctor if you observe: Fever of 101 or Higher, Coldness, Increased Pain, Shortness of breath, Chest pain, Calf discomfort, Uncontrolled pain Change Dressing in (Days):: 3 - wound vac- Friday Cleanse incision/area with: Soap & Water - may shower on days the wound vac is being changed. Additional Dressing/Incision Instructions:: Continue to wear CONCHIS wrap for compression over left BKA Pending Tests on Discharge: Will review cultures at next visit Allergies/Adverse Reactions: Allergies cefepime Allergy (Verified 06/19/18 13:43) Hives sulfamethoxazole [From Octra] Allergy (Verified 06/19/18 13:43) turned red trimethoprim [From Octra] Allergy (Verified 06/19/18 13:43) turned red lisinopril Adverse Reaction (Verified 06/19/18 13:43) cough Medications to take at Discharge Losartan Potassium [Cozaar] 100 mg PO DAILY 06/05/16 buPROPion XL [Wellbutrin Xl] 150 mg PO DAILY 01/21/17 Triamterene/Hydrochlorothiazid [Triamterene-Hctz 37.5-25 mg Cp] 1 each PO DAILY 03/24/17 Gabapentin [Neurontin] 800 mg PO 4X/DAY 08/18/17 Insulin NPH Human Isophane [Novolin N] 50 unit SQ BID 08/18/17 Insulin Lispro [Humalog KwikPen] 20 unit SC TIDCM 10/31/17 Atorvastatin Calcium [Lipitor] 40 mg PO QHS #30 tab 12/12/17 Fluoxetine [Prozac] 60 mg PO DAILY #90 capsule 12/12/17 Iron Polysaccharide Complex [Ferrex 150] 150 mg PO DAILYCM #30 cap 12/12/17 Pantoprazole Sodium 40 mg PO DAILY #30 tablet. 12/22/17 Metformin HCl [Glucophage] 1,000 mg PO BIDCM 06/19/18 Diazepam [Valium] 5 mg PO 4X/DAY PRN #30 tablet 06/23/18 Docusate Sodium [Colace] 100 mg PO BID #60 capsule 06/23/18 Doxycycline 100 mg PO BID #28 capsule 06/23/18 Metronidazole [Flagyl] 500 mg PO Q8 #30 tablet 06/23/18 Oxycodone HCl/Acetaminophen [Percocet 5/325] 1 - 2 tablet PO Q6H PRN PRN 7 Days #56 tablet 06/23/18 The following prescriptions were given: Oxycodone HCl/Acetaminophen [Percocet 5/325] 1 - 2 tablet PO Q6H PRN PRN 7 Days #56 tablet PRN Reason: Pain Metronidazole [Flagyl] 500 mg PO Q8 #30 tablet Docusate Sodium [Colace] 100 mg PO BID #60 capsule Doxycycline 100 mg PO BID #28 capsule Diazepam [Valium] 5 mg PO 4X/DAY PRN #30 tablet PRN Reason: Muscle Spasm Primary Care Physician: Orion Cordova [Primary Care Provider] - Test Results: Test results from this visit will be discussed in further detail at your follow- up appointment, if applicable. Please Follow Up With: Wound Center When: Friday Please Follow Up With: [facility] health When: [phone] Proposed Discharge Date: 06/23/18
--- NOTE | 2018-06-23 15:49 | PCM.PROGNOTE ---
- Physical Exam General: Alert, Oriented x3, Cooperative HEENT: Atraumatic, PERRLA Oral: Moist Mucosa Lungs: Clear to auscultation, Normal air movement, No rhonchi Cardiovascular: Regular rate, Regular Rhythm Abdomen: Bowel Sounds Present, Soft, Non Tender Extremities: Capillary Refill Less than 3 Seconds, Edema - Left BKA stump- CONCHIS wrap on to help with edema Skin: Ulcer/ Wound - Wound VAC in place, CONCHIS wrap on Musculoskeletal: No Tenderness to Palpation of Joints or Extremities Neurological: Neuro grossly intact Psych/Mental Status: Normal Affect, Appropriate Vital Signs Temp Pulse Resp BP Pulse Ox 98.3 F 81 16 143/55 H 94 06/23/18 14:30 06/23/18 14:30 06/23/18 14:30 06/23/18 14:30 06/23/18 14:30 Oxygen Flow Rate (L/min) 2 Oxygen Delivery Method Room Air Weight: 324 lb 11.854 oz Body Mass Index (BMI) 40.6 Finger Stick Blood Glucose 174 Intake and Output for Last 24 Hours 06/21/18 06/22/18 06/23/18 23:59 23:59 23:59 Intake Total 2681 / 2681 2050 / 0 Output Total 400 / 400 1700 / 1700 Balance 2281 / 2281 350 / 350 Microbiology Past 72 Hours 06/22/18 09:23 Gram Stain - Final Tissue - Leg, Left Wound Culture - Preliminary Gram positive organism Laboratory Tests Past 24 Hrs 06/23/18 06/23/18 05:10 05:10 WBC 6.3 RBC 3.78 L Hgb 11.3 L Hct 35.0 L MCV 92.6 MCH 29.9 MCHC 32.3 RDW 13.0 RDW Differential 42.5 Plt Count 273 MPV 9.2 ESR 11 Sodium 140 Potassium 4.7 Chloride 103 Carbon Dioxide 32.0 Anion Gap 5 BUN 16 Creatinine 1.24 Estim Creat Clear Calc 73.82 Est GFR (MDRD) Af Amer 76 Est GFR (MDRD) Non-Af 63 BUN/Creatinine Ratio 12.9 Glucose 183 H Calcium 8.6 Total Bilirubin 0.90 AST 25 ALT 30 Alkaline Phosphatase 83 C-React Prot Ext Range 9.62 H Total Protein 6.2 L Albumin 3.2 Globulin 3.0 Albumin/Globulin Ratio 1.1 Prealbumin 29.1 POC Glucose 06/23/18 06/23/18 06/22/18 11:28 06:53 21:51 POC Glucose 239 H 174 H 172 H 06/22/18 17:03 POC Glucose 177 H Medical Necessity - Tobacco Use Smoking Status: Former smoker Tobacco Use: Non-smoker Assessment/Plan All Active Problems (Last Reviewed 09/01/17 @ 13:36 by Shanique Martinez) Infection of amputation stump of left lower extremity (Acute) Cellulitis (Resolved) Cellulitis and abscess of toe of left foot (Resolved) Cellulitis of great toe, left (Resolved) Cellulitis of leg (Resolved) Cellulitis of right foot (Resolved) Deep venous thrombosis (Resolved) Diabetic toe ulcer (Resolved) Fracture of left foot (Resolved) Hammer toe of right foot (Resolved) Healed ulcer of left foot on examination (Resolved) Lymphangitis (Resolved) Non-pressure chronic ulcer of other part of right foot with fat layer exposed (Resolved) Right foot infection (Resolved) Sepsis (Resolved) Skin ulcer of left great toe with fat layer exposed (Resolved) Toe osteomyelitis, right (Resolved) Ulcer of right leg (Resolved) Ulcer of right lower extremity with fat layer exposed (Resolved) Ulcer of right lower extremity with fat layer exposed (Resolved) Ulcer of right second toe with fat layer exposed (Resolved) Ulcer of toe of right foot (Resolved) Ulcer with necrosis of muscle (Resolved) Wound of left leg (Resolved) Wound of right leg (Resolved) 1. Nonhealing ulcer left BKA stump. Surgical preparation left BKA stump with incision and drainage and excisional debridement nonhealing infected diabetic stump ulcer (5.25 cm2) and placement Amniofill placental connective tissue powder on 06/22/18. -Patient is doing well. He is ready to be discharged home. -Pain is well controlled. Will give him a prescription for Percocet for pain control at home. -Will prescribe Valium for muscle spasm. -Home health has been ordered for wound VAC changes. -He has an appointment Friday06/29/18 at the Wound Center. 2. Infection of left BKA stump. -Awaiting operative cultures. -Will stop IV Vancomycin and Zosyn. Will send him home on Doxycycline and Flagyl. 3. Osteomyelitis 4. History of MRSA 5. Diabetes Mellitus. 6. Former smoker.
== END 2018-06-23 16:05 | disposition home health service (06) ==
LOC: SDC 09:43
PROVIDERS: Anesthesiology; Admitting Provider Surgery; Family Provider Family Medicine; PCP Family Medicine; Referring Provider Surgery; Visit Provider Surgery
PROC: (CPT 15002; principal; 2018-06-22 07:50)
DX: T87.44 Infection of amputation stump, left lower extremity (principal); Y83.8 Other surgical procedures as the cause of abnormal reaction of the patient, or of later complication, without mention of misadventure at the time of the procedure; E11.40 Type 2 diabetes mellitus with diabetic neuropathy, unspecified; E11.610 Type 2 diabetes mellitus with diabetic neuropathic arthropathy; E66.9 Obesity, unspecified; F32.9 Major depressive disorder, single episode, unspecified; G47.33 Obstructive sleep apnea (adult) (pediatric); E11.51 Type 2 diabetes mellitus with diabetic peripheral angiopathy without gangrene; G89.4 Chronic pain syndrome; E78.5 Hyperlipidemia, unspecified; R94.31 Abnormal electrocardiogram [ECG] [EKG]; F41.9 Anxiety disorder, unspecified; K21.9 Gastro-esophageal reflux disease without esophagitis; D64.9 Anemia, unspecified; I10 Essential (primary) hypertension; Z79.899 Other long term (current) drug therapy; Z86.14 Personal history of Methicillin resistant Staphylococcus aureus infection; Z87.891 Personal history of nicotine dependence; Z68.41 Body mass index [BMI] 40.0-44.9, adult; Z71.3 Dietary counseling and surveillance; Z79.4 Long term (current) use of insulin
CPT/HCPCS: 15002; 27603; 36415; 80048; 80053; 82962; 83036; 84134; 85027; 85610; 85652; 85730; 86140; 87070; 87075; 87077; 87102; 87176; 87205; 87206; 87640; 88304; 93005; 96365; 96366; 96367; 99218; J7040; J7120; A4216; G0378; G0379

== ENCOUNTER 2018-06-29 09:06 | Outpatient (RCR) | payer MEDICARE, SELFPAY ==
[2018-06-17 01:04] VITALS: BP 151/80; PULSE 84; RESP 18; TEMP 36.5
[2018-06-22 10:21] VITALS: BMI 40.6
[2018-06-29 09:09] VITALS: BP 166/95; PULSE 80; RESP 20; TEMP 36.9; BMI 40.6
--- NOTE | 2018-06-29 12:47 | PCM.WC.PN ---
Type of Wound Date of Service: 06/29/18 Chief Complaint: Nonhealing ulcer left BKA stump after a fall. History of Wound: Surgery 06/22/18 - Surgical preparation left BKA stump with incision and drainage and excisional debridement nonhealing infected diabetic stump ulcer (5.25 cm2) and placement Amniofill placental connective tissue powder. Wound care - VAC. Operative culture - Corynebacterium minutissimum. Preop culture showed Staphylococcus epidermidis and Anaerobic cocci. He was placed on Doxycycline and Flagyl and is finishing the Flagyl. Prealbumin from 06/23/18 was 29.1. Encourage nutritional supplementation with protein to help the healing process. Today he denies fever. His appetite is good. His initial surgery was on 10/28/17 - 1. Surgical preparation left BKA stump with excision dehiscence amputation stump ulcer and partial ostectomy tibia for osteomyelitis. 2. Reconstruction with re-advancement muscle flap and bipedicle periosteal anterior fascial advancement flap and secondary wound closure revision. Operative culture - Enterobacter cloacae in the soft tissue and bone. He was treated with Zosyn perioperatively and was sent to TCU on Cipro. When the Patholoy came back positive for osteomyelitis, a PICC line was placed and he was started on Vancomycin and Zosyn. He finished his IV antibiotics on 12/17/17. He was discharged on Doxycycline and Levaquin. Pathology - acute and chronic osteomyelitis. On 11/14/17, he fell out of bed on his stump when he tried to maneuver into his wheelchair. He sustained a superficial wound dehiscence that was treated initially with Aquacel Silver. Progress of Wound: Recent surgery 06/22/18. - Physical Exam Vital Signs Temp Pulse Resp BP 98.4 F 80 20 H 166/95 H 06/29/18 09:09 06/29/18 09:09 06/29/18 09:09 06/29/18 09:09 Wound Measurements and Assessment WC - Nurse 1 - General Ulcer Measurement Start: 06/29/18 09:09 Freq: Status: Active Protocol: Activity Type Activity Date Activity User E-Sign Co-Sign Detail Recorded Client Recorded Date Recorded By Document 06/29/18 09:09 DL [id number] 06/29/18 09:22 DL 06/29/18 09:09 Wound Center Nurse 1 [Ulcer Assessment] #26 L BKA post op incision -Current Size (cm) - Length 1.3 -Current Size (cm) - Width 2.8 -Current Size (cm) - Depth 3 -Total Square Cm 3.64 -Photo Taken Yes -Exudate Amt Small -Exudate Type Serosanguineous -Wound Margin Distinct, Outline Attached -Granulation Amt Large (67-100%) -Granulation Quality [place] -Necrosis Amt Small (1-33%) -Necrotic Tissue Type Adherent Slough -Structure Exposed N/A -Texture (Yael-wound Skin Appearance) Scarring -Moisture (Yael-wound Skin Appearance Maceration ) -Color (Yael-wound Skin Appearance) No Abnormality -Temperature (Yael-wound Skin No Abnormality Appearance) (Pt Warm) -Tenderness on Palpation (Yael-wound No Skin Appearance) -Ulcer Cleansing Wound Cleanser -Foul Odor after Cleansing No -Anesthetic Used 4% Lidocaine Solution WC - Nurse 2 - General Ulcer CM Notes Start: 06/29/18 09:09 Freq: Status: Active Protocol: Activity Type Activity Date Activity User E-Sign Co-Sign Detail Recorded Client Recorded Date Recorded By Document 06/29/18 09:56 [email or web address] [id number] 06/29/18 09:57 06/29/18 09:56 Wound Center Nurse 2 [Procedure/Treatment] -Time 09:57 -Correct Patient Yes -Correct Side, Site, Position Yes -Correct Procedure Yes -Procedure Performed Yes -Type of Procedure Debridement -Clinical Debridement Subcutaneous -Post Debridement Size (cm) - Length 3.5 -Post Debridement Size (cm) - Width 1.6 -Post Debridement Size (cm) - Depth 3.0 -Total Square Cm 5.60 -Wound/Ulcer Outcome Not Healed -Ulcer Cleansing Rinsed/ Irrigated with Saline -Foul Odor after Cleansing No -Bioengineered Tissue No -Bleeding Controlled with Pressure -Offloading No -Treatment Response Procedure Tolerated Well [See Physician Procedure note for Specifics] Pain Scale: 0-10 Numeric [Pain] -Is Patient Pain Free? Yes Debridement Note Post-Debridement Measurements/Treatment WC - Nurse 2 - General Ulcer CM Notes Start: 06/29/18 09:09 Freq: Status: Active Protocol: Activity Type Activity Date Activity User E-Sign Co-Sign Detail Recorded Client Recorded Date Recorded By Document 06/29/18 09:56 [email or web address] [id number] 06/29/18 09:57 JF 06/29/18 09:56 Wound Center Nurse 2 #26 L BKA post op incision -Time 09:57 -Correct Patient Yes -Correct Side, Site, Position Yes -Correct Procedure Yes -Procedure Performed Yes -Type of Procedure Debridement -Clinical Debridement Subcutaneous -Post Debridement Size (cm) - Length 3.5 -Post Debridement Size (cm) - Width 1.6 -Post Debridement Size (cm) - Depth 3.0 -Total Square Cm 5.60 -Wound/Ulcer Outcome Not Healed -Ulcer Cleansing Rinsed/ Irrigated with Saline -Foul Odor after Cleansing No -Bioengineered Tissue No -Bleeding Controlled with Pressure -Offloading No -Treatment Response Procedure Tolerated Well Pain Scale: 0-10 Numeric Is Patient Pain Free? Yes Wound debrided: #26 Left BKA stump. Laterality: Left Wound Grade/Stage: 4. Type of Debridement: Excisional debridement Anesthesia Used: 4% Lidocaine Solution Depth: Down to and including healthy tissue, in the subcutaneous layer Percentage of wound debrided: 50 - the superficial subcutaneous tissue. The deeper base where the Amniofill is located was left alone today. Instrument Used: 5mm curette Tissue Removed: subcutaneous tissue. Severity: Fat Layer Exposed Amount of bleeding with debridement: Mild Bleeding Controlled with: Pressure Patient tolerated procedure well Assessment/Plan Assessment: 1. Nonhealing ulcer left BKA stump after a fall. 2. Infection of left BKA stump. 3. Osteomyelitis. 4. MRSA. 5. Diabetes mellitus. 6. Former smoker. 7. s/p surgical preparation left BKA stump with incision and drainage and excisional debridement nonhealing infected diabetic stump ulcer (5.25 cm2) and placement Amniofill placental connective tissue powder Plan: The stump ulcer appears clean. Some granulation tissue seen at the edges. Amniofill is in the base. The VAC was reapplied at 125 mmHg continuous suction. To be done twice per week for another week or two and then can go to 3 times per week. Operative culture showed Corynebacterium minutissimum. His preop culture showed Staphylococcus epidermidis and Anaerobic cocci. He was placed on Doxycycline and Flagyl and is finishing the Flagyl. Prealbumin from 06/23/18 was 29.1. Encourage nutritional supplementation with protein to help the healing process. His HgbA1c is 6.7. Before any attempts at wound closure in the future, he would need a partial ostectomy of his tibial bone to evaluate for osteomyelitis. If we cannot eradicate the osteomyelitis in his tibial bone, he may ultimately need an AKA. Patient voices understanding and wants to pursue aggressive treatments in order to salvage the BKA stump. Followup one week.
== END 2018-07-17 23:59 ==
LOC: WC 09:06
PROVIDERS: Family Provider Family Medicine; PCP Family Medicine; Visit Provider Surgery
DX: T87.81 Dehiscence of amputation stump (principal); Y83.8 Other surgical procedures as the cause of abnormal reaction of the patient, or of later complication, without mention of misadventure at the time of the procedure; Z86.14 Personal history of Methicillin resistant Staphylococcus aureus infection; Z87.891 Personal history of nicotine dependence; Z89.512 Acquired absence of left leg below knee; E66.9 Obesity, unspecified; M86.662 Other chronic osteomyelitis, left tibia and fibula; T87.44 Infection of amputation stump, left lower extremity; E11.69 Type 2 diabetes mellitus with other specified complication
CPT/HCPCS: 11042; 97605

== ENCOUNTER 2018-07-27 08:45 | Outpatient (RCR) | payer MEDICARE, SELFPAY ==
[2018-07-18 00:47] VITALS: BP 166/95; PULSE 80; RESP 20; TEMP 36.9
[2018-07-20 09:05] VITALS: BP 142/89; PULSE 86; RESP 16; TEMP 37.3; BMI 40.6
--- NOTE | 2018-07-20 13:08 | PCM.WC.PN ---
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 History of Wound: Surgery 06/22/18 - Surgical preparation left BKA stump with incision and drainage and excisional debridement nonhealing infected diabetic stump ulcer (5.25 cm2) and placement Amniofill placental connective tissue powder. Wound care - VAC. Operative culture - Corynebacterium minutissimum. Preop culture showed Staphylococcus epidermidis and Anaerobic cocci. He was placed on Doxycycline and Flagyl and is finishing the Flagyl. Prealbumin from 06/23/18 was 29.1. Encourage nutritional supplementation with protein to help the healing process. Today he denies fever. His appetite is good. His initial surgery was on 10/28/17 - 1. Surgical preparation left BKA stump with excision dehiscence amputation stump ulcer and partial ostectomy tibia for osteomyelitis. 2. Reconstruction with re-advancement muscle flap and bipedicle periosteal anterior fascial advancement flap and secondary wound closure revision. Operative culture - Enterobacter cloacae in the soft tissue and bone. He was treated with Zosyn perioperatively and was sent to TCU on Cipro. When the Patholoy came back positive for osteomyelitis, a PICC line was placed and he was started on Vancomycin and Zosyn. He finished his IV antibiotics on 12/17/17. He was discharged on Doxycycline and Levaquin. Pathology - acute and chronic osteomyelitis. On 11/14/17, he fell out of bed on his stump when he tried to maneuver into his wheelchair. He sustained a superficial wound dehiscence that was treated initially with Aquacel Silver. Progress of Wound: Recent surgery 06/22/18. - Physical Exam Vital Signs Temp Pulse Resp BP 99.1 F 86 16 142/89 H 07/20/18 09:05 07/20/18 09:05 07/20/18 09:05 07/20/18 09:05 General: Alert, Oriented x3, Cooperative HEENT: Atraumatic Oral: Moist Mucosa Lungs: Normal air movement Cardiovascular: Regular rate Extremities: No cyanosis, Capillary Refill Less than 3 Seconds, Tenderness Skin: Ulcer/ Wound - Left BKA stump ulcer Wound Measurements and Assessment WC - Nurse 1 - General Ulcer Measurement Start: 07/20/18 09:05 Freq: Status: Active Protocol: Activity Type Activity Date Activity User E-Sign Co-Sign Detail Recorded Client Recorded Date Recorded By Document 07/20/18 09:05 [facility] [email or web address] 07/20/18 09:12 BM 07/20/18 09:05 Wound Center Nurse 1 [Ulcer Assessment] #26 L BKA post op incision -Combined with other wound No -Current Size (cm) - Length 1.5 -Current Size (cm) - Width 2.5 -Current Size (cm) - Depth 3.6 -Total Square Cm 3.75 -Photo Taken No -Epithelialization None Present -Tunneling No -Undermining/Tunneling No -Circular Undermining No -Exudate Amt Small -Exudate Type Serosanguineous -Wound Margin Distinct, Outline Attached -Granulation Amt Large (67-100%) -Granulation Quality Pale Red -Slough/Fibrin No -Necrosis Amt None Present (0 %) -Texture (Yael-wound Skin Appearance) Assessed Scarring -Moisture (Yael-wound Skin Appearance Assessed ) Maceration -Color (Yael-wound Skin Appearance) Assessed Palor -Temperature (Yael-wound Skin No Abnormality Appearance) (Pt Warm) -Tenderness on Palpation (Yael-wound No Skin Appearance) -Ulcer Cleansing Wound Cleanser -Foul Odor after Cleansing No -Anesthetic Used 5% Lidocaine Gel WC - Nurse 2 - General Ulcer CM Notes Start: 07/20/18 09:05 Freq: Status: Active Protocol: Activity Type Activity Date Activity User E-Sign Co-Sign Detail Recorded Client Recorded Date Recorded By Document 07/20/18 09:50 AN [id number] 07/20/18 10:01 AN 06/03/19 09:50 Wound Center Nurse 2 [Procedure/Treatment] -Time 09:53 -Correct Patient Yes -Correct Side, Site, Position Yes -Correct Procedure Yes -Procedure Performed Yes -Type of Procedure Debridement -Clinical Debridement Subcutaneous -Post Debridement Size (cm) - Length 1.8 -Post Debridement Size (cm) - Width 2.6 -Post Debridement Size (cm) - Depth 4.8 -Total Square Cm 4.68 -Wound/Ulcer Outcome Not Healed -Ulcer Cleansing Rinsed/ Irrigated with Saline -Foul Odor after Cleansing No -Bioengineered Tissue No -Bleeding Controlled with Pressure -Offloading No -Treatment Response Procedure Tolerated Well [See Physician Procedure note for Specifics] Pain Scale: 0-10 Numeric [Pain] -Is Patient Pain Free? Yes Musculoskeletal: Tenderness - tenderness of left BKA stump ulcer area with bone sensitivity Neurological: Neuro grossly intact Psych/Mental Status: Normal Affect, Depressed - He is having some depression issues today. He is frustrated because he can't wear his prostethisis and he has a horse that is being trained by someone else. He denies wanting to hurt himself or anyone else. He states it's more frustration than depression Debridement Note Post-Debridement Measurements/Treatment WC - Nurse 2 - General Ulcer CM Notes Start: 07/20/18 09:05 Freq: Status: Active Protocol: Activity Type Activity Date Activity User E-Sign Co-Sign Detail Recorded Client Recorded Date Recorded By Document 07/20/18 09:50 AN [id number] 07/20/18 10:01 AN 07/20/18 09:50 Wound Center Nurse 2 #26 L BKA post op incision -Time 09:53 -Correct Patient Yes -Correct Side, Site, Position Yes -Correct Procedure Yes -Procedure Performed Yes -Type of Procedure Debridement -Clinical Debridement Subcutaneous -Post Debridement Size (cm) - Length 1.8 -Post Debridement Size (cm) - Width 2.6 -Post Debridement Size (cm) - Depth 4.8 -Total Square Cm 4.68 -Wound/Ulcer Outcome Not Healed -Ulcer Cleansing Rinsed/ Irrigated with Saline -Foul Odor after Cleansing No -Bioengineered Tissue No -Bleeding Controlled with Pressure -Offloading No -Treatment Response Procedure Tolerated Well Pain Scale: 0-10 Numeric Is Patient Pain Free? Yes Wound debrided: Left BKA Laterality: Left Type of Debridement: Excisional debridement Anesthesia Used: 5% Lidocaine Gel Depth: Down to and including healthy tissue, in the subcutaneous layer Percentage of wound debrided: 100 Instrument Used: 5mm curette Tissue Removed: Subcutaneous tissue and slough Severity: Fat Layer Exposed Amount of bleeding with debridement: Moderate Bleeding Controlled with: Pressure, Compression and gauze Patient tolerated procedure well Assessment/Plan Assessment: 1. Nonhealing ulcer left BKA stump after a fall. 2. Infection of left BKA stump. 3. Osteomyelitis. 4. MRSA. 5. Diabetes mellitus. 6. Former smoker. 7. s/p surgical preparation left BKA stump with incision and drainage and excisional debridement nonhealing infected diabetic stump ulcer (5.25 cm2) and placement Amniofill placental connective tissue powder Plan: The stump ulcer appears clean. Some granulation tissue seen at the edges. The VAC was reapplied, will increase suction to 150 mmHg continuous suction. Will increase to three times per week for vac changes. Hopefully this will help with his continued depth of 5 cm. Operative culture showed Corynebacterium minutissimum. His preop culture showed Staphylococcus epidermidis and Anaerobic cocci. He was placed on Doxycycline and Flagyl and is finishing the Flagyl. Prealbumin from 06/23/18 was 29.1. Encourage nutritional supplementation with protein to help the healing process. His HgbA1c is 6.7. Before any attempts at wound closure in the future, he would need a partial ostectomy of his tibial bone to evaluate for osteomyelitis. If we cannot eradicate the osteomyelitis in his tibial bone, he may ultimately need an AKA. Patient voices understanding and wants to pursue aggressive treatments in order to salvage the BKA stump. Followup one week. Code Visit [id number]
[2018-07-27 09:17] VITALS: BP 150/96; PULSE 78; RESP 16; TEMP 36.8; BMI 40.6
--- NOTE | 2018-07-27 22:32 | PCM.WC.PN ---
Type of Wound Date of Service: 07/27/18 Chief Complaint: Nonhealing ulcer left BKA stump after a fall. History of Wound: Surgery 06/22/18 - Surgical preparation left BKA stump with incision and drainage and excisional debridement nonhealing infected diabetic stump ulcer (5.25 cm2) and placement Amniofill placental connective tissue powder. Wound care - VAC. Operative culture - Corynebacterium minutissimum. Preop culture showed Staphylococcus epidermidis and Anaerobic cocci. He was placed on Doxycycline and Flagyl and finished the Flagyl. Prealbumin from 06/23/18 was 29.1. Encourage nutritional supplementation with protein to help the healing process. Today he denies fever. His appetite is good. Progress of Wound: Improved. - Physical Exam Vital Signs Temp Pulse Resp BP 98.2 F 78 16 150/96 H 07/27/18 09:17 07/27/18 09:17 07/27/18 09:17 07/27/18 09:17 Wound Measurements and Assessment WC - Nurse 1 - General Ulcer Measurement Start: 07/20/18 09:05 Freq: Status: Active Protocol: Activity Type Activity Date Activity User E-Sign Co-Sign Detail Recorded Client Recorded Date Recorded By Document 07/27/18 09:17 DL [id number] 07/27/18 09:23 DL 07/27/18 09:17 Wound Center Nurse 1 [Ulcer Assessment] #26 L BKA post op incision -Current Size (cm) - Length 1.8 -Current Size (cm) - Width 2.6 -Current Size (cm) - Depth 4.2 -Total Square Cm 4.68 -Photo Taken No -Exudate Amt Medium -Exudate Type Serosanguineous -Wound Margin Distinct, Outline Attached -Granulation Amt Large (67-100%) -Necrosis Amt Small (1-33%) -Necrotic Tissue Type Adherent Slough -Structure Exposed N/A -Texture (Yael-wound Skin Appearance) Scarring -Moisture (Yael-wound Skin Appearance Maceration ) -Color (Yael-wound Skin Appearance) Rubor -Temperature (Yael-wound Skin No Abnormality Appearance) (Pt Warm) -Tenderness on Palpation (Yael-wound No Skin Appearance) -Ulcer Cleansing Wound Cleanser -Foul Odor after Cleansing No -Anesthetic Used 4% Lidocaine Solution WC - Nurse 2 - General Ulcer CM Notes Start: 07/20/18 09:05 Freq: Status: Active Protocol: Activity Type Activity Date Activity User E-Sign Co-Sign Detail Recorded Client Recorded Date Recorded By Document 07/27/18 09:39 [id number] 07/27/18 09:42 07/27/18 09:39 Wound Center Nurse 2 [Procedure/Treatment] -Time 09:39 -Correct Patient Yes -Correct Side, Site, Position Yes -Correct Procedure Yes -Procedure Performed Yes -Type of Procedure Debridement -Clinical Debridement Subcutaneous -Post Debridement Size (cm) - Length 1.7 -Post Debridement Size (cm) - Width 3 -Post Debridement Size (cm) - Depth 5.1 -Total Square Cm 5.1 -Wound/Ulcer Outcome Not Healed -Ulcer Cleansing Rinsed/ Irrigated with Saline -Foul Odor after Cleansing No -Bioengineered Tissue No -Bleeding Controlled with Pressure -Offloading No -Treatment Response Procedure Tolerated Well [See Physician Procedure note for Specifics] Pain Scale: 0-10 Numeric [Pain] -Is Patient Pain Free? Yes Debridement Note Post-Debridement Measurements/Treatment WC - Nurse 2 - General Ulcer CM Notes Start: 07/20/18 09:05 Freq: Status: Active Protocol: Activity Type Activity Date Activity User E-Sign Co-Sign Detail Recorded Client Recorded Date Recorded By Document 07/20/18 09:50 [id number] 07/20/18 10:01 AN Document 07/27/18 09:39 [email or web address] 07/27/18 09:42 07/20/18 07/27/18 09:50 09:39 Wound Center Nurse 2 #26 L BKA post op incision -Time 09:53 09:39 -Correct Patient Yes Yes -Correct Side, Site, Position Yes Yes -Correct Procedure Yes Yes -Procedure Performed Yes Yes -Type of Procedure Debridement Debridement -Clinical Debridement Subcutaneous Subcutaneous -Post Debridement Size (cm) - Length 1.8 1.7 -Post Debridement Size (cm) - Width 2.6 3 -Post Debridement Size (cm) - Depth 4.8 5.1 -Total Square Cm 4.68 5.1 -Wound/Ulcer Outcome Not Healed Not Healed -Ulcer Cleansing Rinsed/ Rinsed/ Irrigated with Irrigated with Saline Saline -Foul Odor after Cleansing No No -Bioengineered Tissue No No -Bleeding Controlled with Pressure Pressure -Offloading No No -Treatment Response Procedure Procedure Tolerated Well Tolerated Well Pain Scale: 0-10 Numeric Is Patient Pain Free? Yes Yes Wound debrided: #26 Left BKA stump. Laterality: Left Wound Grade/Stage: 4. Type of Debridement: Excisional debridement Anesthesia Used: 4% Lidocaine Solution Depth: Down to and including healthy tissue, in the subcutaneous layer Percentage of wound debrided: 100 Instrument Used: 5mm curette Tissue Removed: subcutaneous tissue. Severity: Fat Layer Exposed Amount of bleeding with debridement: Mild Bleeding Controlled with: Pressure Patient tolerated procedure well Assessment/Plan Assessment: 1. Nonhealing ulcer left BKA stump after a fall. 2. Infection of left BKA stump. 3. Osteomyelitis. 4. MRSA. 5. Diabetes mellitus. 6. Former smoker. 7. s/p surgical preparation left BKA stump with incision and drainage and excisional debridement nonhealing infected diabetic stump ulcer (5.25 cm2) and placement Amniofill placental connective tissue powder. Plan: The stump ulcer appears clean. Some granulation tissue seen at the edges. Amniofill is in the base. Continue the VAC. Operative culture showed Corynebacterium minutissimum. His preop culture showed Staphylococcus epidermidis and Anaerobic cocci. He was placed on Doxycycline and Flagyl and finished the Flagyl. Prealbumin from 06/23/18 was 29.1. Encourage nutritional supplementation with protein to help the healing process. His HgbA1c is 6.7. Before any attempts at wound closure in the future depending on the status of the ulcer, he may need a partial ostectomy of his tibial bone to evaluate for osteomyelitis. If we cannot eradicate the osteomyelitis in his tibial bone, he may ultimately need an AKA. Patient voices understanding and wants to pursue aggressive treatments in order to salvage the BKA stump. Followup 2 weeks. He has out of town family activities to attend to next week.
== END 2018-08-16 23:59 ==
LOC: WC 08:45
PROVIDERS: Family Provider Family Medicine; PCP Family Medicine; Visit Provider Surgery
DX: T87.81 Dehiscence of amputation stump (principal); E11.622 Type 2 diabetes mellitus with other skin ulcer; L97.822 Non-pressure chronic ulcer of other part of left lower leg with fat layer exposed; Y83.8 Other surgical procedures as the cause of abnormal reaction of the patient, or of later complication, without mention of misadventure at the time of the procedure; Z87.891 Personal history of nicotine dependence; Z86.14 Personal history of Methicillin resistant Staphylococcus aureus infection
CPT/HCPCS: 11042; 97605

== ENCOUNTER 2018-09-14 10:45 | Outpatient (RCR) | payer MEDICARE, SELFPAY ==
[2018-08-17 00:33] VITALS: BP 150/96; PULSE 78; RESP 16; TEMP 36.8
[2018-08-17 09:29] VITALS: BP 153/83; PULSE 78; RESP 18; TEMP 36.6; BMI 40.6
--- NOTE | 2018-08-17 12:13 | PCM.WC.PN ---
Type of Wound Date of Service: 08/17/18 Chief Complaint: Nonhealing ulcer left BKA stump after a fall. History of Wound: Surgery 06/22/18 - Surgical preparation left BKA stump with incision and drainage and excisional debridement nonhealing infected diabetic stump ulcer (5.25 cm2) and placement Amniofill placental connective tissue powder. Wound care - VAC. Operative culture - Corynebacterium minutissimum. Preop culture showed Staphylococcus epidermidis and Anaerobic cocci. He was placed on Doxycycline and Flagyl and has finished them. Prealbumin from 06/23/18 was 29.1. Encourage nutritional supplementation with protein to help the healing process. Today he denies fever. His appetite is good. Progress of Wound: Improved. - Physical Exam Vital Signs Temp Pulse Resp BP 97.8 F 78 18 153/83 H 08/17/18 09:29 08/17/18 09:29 08/17/18 09:29 08/17/18 09:29 Debridement Note Post-Debridement Measurements/Treatment WC - Nurse 2 - General Ulcer CM Notes Start: 08/17/18 09:28 Freq: Status: Active Protocol: Activity Type Activity Date Activity User E-Sign Co-Sign Detail Recorded Client Recorded Date Recorded By Document 08/17/18 10:06 [id number] 08/17/18 10:09 [email or web address] 08/17/18 10:06 Wound Center Nurse 2 #26 L BKA post op incision -Time 10:08 -Correct Patient Yes -Correct Side, Site, Position Yes -Correct Procedure Yes -Procedure Performed Yes -Type of Procedure Debridement -Clinical Debridement Subcutaneous -Post Debridement Size (cm) - Length 1.8 -Post Debridement Size (cm) - Width 2.7 -Post Debridement Size (cm) - Depth 3.4 -Total Square Cm 4.86 -Wound/Ulcer Outcome Not Healed -Ulcer Cleansing Rinsed/ Irrigated with Saline -Foul Odor after Cleansing No -Bioengineered Tissue No -Bleeding Controlled with Pressure -Offloading No -Treatment Response Procedure Tolerated Well Pain Scale: 0-10 Numeric Is Patient Pain Free? Yes Wound debrided: #26 Left BKA stump. Laterality: Left Wound Grade/Stage: 4. Type of Debridement: Excisional debridement Anesthesia Used: 4% Lidocaine Solution Depth: Down to and including healthy tissue, in the subcutaneous layer Percentage of wound debrided: 100 Instrument Used: 5mm curette Tissue Removed: subcutaneous tissue. Severity: Fat Layer Exposed Amount of bleeding with debridement: Mild Bleeding Controlled with: Pressure Patient tolerated procedure well Assessment/Plan Assessment: 1. Nonhealing ulcer left BKA stump after a fall. 2. Infection of left BKA stump. 3. Osteomyelitis. 4. MRSA. 5. Diabetes mellitus. 6. Former smoker. 7. s/p surgical preparation left BKA stump with incision and drainage and excisional debridement nonhealing infected diabetic stump ulcer (5.25 cm2) and placement Amniofill placental connective tissue powder. Plan: The stump ulcer appears clean. Some granulation tissue seen at the edges. Amniofill is in the base. Continue the VAC. Operative culture showed Corynebacterium minutissimum. His preop culture showed Staphylococcus epidermidis and Anaerobic cocci. He was placed on Doxycycline and Flagyl and has finished them. Prealbumin from 06/23/18 was 29.1. Encourage nutritional supplementation with protein to help the healing process. His HgbA1c is 6.7. Before any attempts at wound closure in the future depending on the status of the ulcer, he may need a partial ostectomy of his tibial bone to evaluate for osteomyelitis. If we cannot eradicate the osteomyelitis in his tibial bone, he may ultimately need an AKA. Patient voices understanding and wants to pursue aggressive treatments in order to salvage the BKA stump. Followup one week. When the ulcer becomes more superficial, may consider a placental connective tissue graft.
[2018-08-24 10:50] VITALS: BP 176/81; PULSE 86; RESP 16; TEMP 36.6; BMI 40.6
--- NOTE | 2018-08-24 12:49 | PN.PCM_ITS ---
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 Status: Chronic Code(s): E11.622 - Type 2 diabetes mellitus with other skin ulcer; L97.909 - Non-pressure chronic ulcer of unspecified part of unspecified lower leg with unspecified severity (4) Osteomyelitis Status: Chronic Code(s): M86.9 - Osteomyelitis, unspecified (5) Personal history of Methicillin resistant Staphylococcus aureus infection Status: Chronic Code(s): Z86.14 - Personal history of Methicillin resistant Staphylococcus aureus infection (6) History of left below knee amputation Status: Chronic Code(s): Z89.512 - Acquired absence of left leg below knee Type of Wound Date of Service: 08/24/18 Chief Complaint: Nonhealing ulcer left BKA stump after a fall. History of Wound: Surgery 06/22/18 - Surgical preparation left BKA stump with incision and drainage and excisional debridement nonhealing infected diabetic stump ulcer (5.25 cm2) and placement Amniofill placental connective tissue powder. Wound care - VAC. Operative culture - Corynebacterium minutissimum. Preop culture showed Staphylococcus epidermidis and Anaerobic cocci. He was placed on Doxycycline and Flagyl and is finishing the Flagyl. Prealbumin from 06/23/18 was 29.1. Encourage nutritional supplementation with protein to help the healing process. Today he denies fever. His appetite is good. His initial surgery was on 10/28/17 - 1. Surgical preparation left BKA stump with excision dehiscence amputation stump ulcer and partial ostectomy tibia for osteomyelitis. 2. Reconstruction with re-advancement muscle flap and bipedicle periosteal anterior fascial advancement flap and secondary wound closure revision. Operative culture - Enterobacter cloacae in the soft tissue and bone. He was treated with Zosyn perioperatively and was sent to TCU on Cipro. When the Patholoy came back positive for osteomyelitis, a PICC line was placed and he was started on Vancomycin and Zosyn. He finished his IV antibiotics on 12/17/17. He was discharged on Doxycycline and Levaquin. Pathology - acute and chronic osteomyelitis. On 11/14/17, he fell out of bed on his stump when he tried to maneuver into his wheelchair. He sustained a superficial wound dehiscence that was treated initially with Aquacel Silver. Progress of Wound: Recent surgery 06/22/18. Improvement. - Physical Exam Vital Signs Temp Pulse Resp BP 97.8 F 86 16 176/81 H 08/24/18 10:50 08/24/18 10:50 08/24/18 10:50 08/24/18 10:50 General: Alert, Oriented x3, Cooperative HEENT: Atraumatic Oral: Moist Mucosa Lungs: Normal air movement Cardiovascular: Regular rate Abdomen: Obese Extremities: Capillary Refill Less than 3 Seconds Skin: Ulcer/ Wound - Left stump ulcer Wound Measurements and Assessment WC - Nurse 1 - General Ulcer Measurement Start: 08/17/18 09:28 Freq: Status: Active Protocol: Activity Type Activity Date Activity User E-Sign Co-Sign Detail Recorded Client Recorded Date Recorded By Document 08/24/18 10:50 MW [id number] 08/24/18 11:02 MW 08/24/18 10:50 Wound Center Nurse 1 [Ulcer Assessment] #26 L BKA post op incision -Combined with other wound No -Current Size (cm) - Length 1.3 -Current Size (cm) - Width 1.5 -Current Size (cm) - Depth 1.3 -Total Square Cm 1.95 -Date of Last Picture (Recall this 08/24/18 field) -Photo Taken Yes -Epithelialization Small 1-33% -Tunneling No -Undermining/Tunneling No -Circular Undermining No -Exudate Amt Small -Exudate Type Serosanguineous -Wound Margin Flat & Intact -Granulation Amt Medium (34-66%) -Granulation Quality [place] -Slough/Fibrin Yes -Necrosis Amt Small (1-33%) -Necrotic Tissue Type Adherent Slough -Structure Exposed N/A -Texture (Yael-wound Skin Appearance) Assessed, Scarring -Moisture (Yael-wound Skin Appearance No Abnormality, ) Assessed -Color (Yael-wound Skin Appearance) No Abnormality, Assessed -Temperature (Yael-wound Skin No Abnormality Appearance) (Pt Warm) -Tenderness on Palpation (Yael-wound No Skin Appearance) -Ulcer Cleansing Rinsed/ Irrigated with Saline -Foul Odor after Cleansing No -Anesthetic Used 4% Lidocaine Solution [Edema Assessment] -Lower Limb Edema Present No - Nurse 2 - General Ulcer CM Notes Start: 08/17/18 09:28 Freq: Status: Active Protocol: Activity Type Activity Date Activity User E-Sign Co-Sign Detail Recorded Client Recorded Date Recorded By Document 08/24/18 11:33 [id number] 08/24/18 11:35 08/24/18 11:33 Wound Center Nurse 2 [Procedure/Treatment] #26 L BKA post op incision -Time 11:34 -Correct Patient Yes -Correct Side, Site, Position Yes -Correct Procedure Yes -Procedure Performed Yes -Type of Procedure Debridement -Clinical Debridement Subcutaneous -Post Debridement Size (cm) - Length 1.4 -Post Debridement Size (cm) - Width 2.7 -Post Debridement Size (cm) - Depth 2.5 -Total Square Cm 3.78 -Wound/Ulcer Outcome Not Healed -Ulcer Cleansing Rinsed/ Irrigated with Saline -Foul Odor after Cleansing No -Bioengineered Tissue No -Bleeding Controlled with Pressure -Offloading No -Treatment Response Procedure Tolerated Well [See Physician Procedure note for Specifics] Pain Scale: 0-10 Numeric [Pain] -Is Patient Pain Free? Yes Debridement Note Post-Debridement Measurements/Treatment - Nurse 2 - General Ulcer CM Notes Start: 08/17/18 09:28 Freq: Status: Active Protocol: Activity Type Activity Date Activity User E-Sign Co-Sign Detail Recorded Client Recorded Date Recorded By Document 08/17/18 10:06 [id number] 08/17/18 10:09 Document 08/24/18 11:33 [id number] 08/24/18 11:35 08/17/18 08/24/18 10:06 11:33 Wound Center Nurse 2 #26 L BKA post op incision -Time 10:08 11:34 -Correct Patient Yes Yes -Correct Side, Site, Position Yes Yes -Correct Procedure Yes Yes -Procedure Performed Yes Yes -Type of Procedure Debridement Debridement -Clinical Debridement Subcutaneous Subcutaneous -Post Debridement Size (cm) - Length 1.8 1.4 -Post Debridement Size (cm) - Width 2.7 2.7 -Post Debridement Size (cm) - Depth 3.4 2.5 -Total Square Cm 4.86 3.78 -Wound/Ulcer Outcome Not Healed Not Healed -Ulcer Cleansing Rinsed/ Rinsed/ Irrigated with Irrigated with Saline Saline -Foul Odor after Cleansing No No -Bioengineered Tissue No No -Bleeding Controlled with Pressure Pressure -Offloading No No -Treatment Response Procedure Procedure Tolerated Well Tolerated Well Pain Scale: 0-10 Numeric Is Patient Pain Free? Yes Yes Wound debrided: left BKA stump ulcer Laterality: Left Type of Debridement: Excisional debridement Anesthesia Used: 5% Lidocaine Gel Depth: Down to and including healthy tissue, in the subcutaneous layer Percentage of wound debrided: 100 Instrument Used: 5mm curette Tissue Removed: Subcutaneous tissue and slough Severity: Fat Layer Exposed Amount of bleeding with debridement: Mild Bleeding Controlled with: Compression and gauze Patient tolerated procedure well Assessment/Plan Assessment: 1. Nonhealing ulcer left BKA stump after a fall. 2. Infection of left BKA stump. 3. Osteomyelitis. 4. MRSA. 5. Diabetes mellitus. 6. Former smoker. 7. s/p surgical preparation left BKA stump with incision and drainage and excisional debridement nonhealing infected diabetic stump ulcer (5.25 cm2) and placement Amniofill placental connective tissue powder Plan: The stump ulcer appears clean. Some granulation tissue seen at the edges. Continue the wound VAC, will keep suction at 150 mmHg continuous suction. Will increase to three times per week for vac changes. Apply CONCHIS wrap for compression. He is running out of home health visits for the year. Will order to have Home health teach him and his friend whom he lives with how to do the wound VAC dressing changes. They feel they will be able to do them so he can stay on the VAC. Operative culture showed Corynebacterium minutissimum. His preop culture showed Staphylococcus epidermidis and Anaerobic cocci. He was placed on Doxycycline and Flagyl and is finishing the Flagyl. Prealbumin from 06/23/18 was 29.1. Encourage nutritional supplementation with protein to help the healing process. His HgbA1c is 6.7. Before any attempts at wound closure in the future, he would need a partial ostectomy of his tibial bone to evaluate for osteomyelitis. If we cannot eradicate the osteomyelitis in his tibial bone, he may ultimately need an AKA. Patient voices understanding and wants to pursue aggressive treatments in order to salvage the BKA stump. Followup one week. Code Visit [id number]
[2018-08-31 11:51] VITALS: BP 164/61; PULSE 80; RESP 18; TEMP 36.6; BMI 40.6
--- NOTE | 2018-08-31 12:49 | PN.PCM_ITS ---
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 Status: Chronic Current Visit: Yes Code(s): E11.622 - Type 2 diabetes mellitus with other skin ulcer; L97.909 - Non-pressure chronic ulcer of unspecified part of unspecified lower leg with unspecified severity (4) Osteomyelitis Status: Chronic Current Visit: Yes Code(s): M86.9 - Osteomyelitis, unspecified (5) Personal history of Methicillin resistant Staphylococcus aureus infection Status: Chronic Current Visit: Yes Code(s): Z86.14 - Personal history of Methicillin resistant Staphylococcus aureus infection (6) History of left below knee amputation Status: Chronic Current Visit: Yes Code(s): Z89.512 - Acquired absence of left leg below knee Type of Wound Date of Service: 09/01/18 Chief Complaint: Nonhealing ulcer left BKA stump after a fall. History of Wound: Surgery 06/22/18 - Surgical preparation left BKA stump with incision and drainage and excisional debridement nonhealing infected diabetic stump ulcer (5.25 cm2) and placement Amniofill placental connective tissue powder. Wound care - VAC. Operative culture - Corynebacterium minutissimum. Preop culture showed Staphylococcus epidermidis and Anaerobic cocci. He was placed on Doxycycline and Flagyl and is finishing the Flagyl. Prealbumin from 06/23/18 was 29.1. Encourage nutritional supplementation with protein to help the healing process. Today he denies fever. His appetite is good. His initial surgery was on 10/28/17 - 1. Surgical preparation left BKA stump with excision dehiscence amputation stump ulcer and partial ostectomy tibia for osteomyelitis. 2. Reconstruction with re-advancement muscle flap and bipedicle periosteal anterior fascial advancement flap and secondary wound closure revision. Operative culture - Enterobacter cloacae in the soft tissue and bone. He was treated with Zosyn perioperatively and was sent to [facility] on Cipro. When the Johnny cortes came back positive for osteomyelitis, a PICC line was placed and he was started on Vancomycin and Zosyn. He finished his IV antibiotics on 12/17/17. He was discharged on Doxycycline and Levaquin. Pathology - acute and chronic osteomyelitis. On 11/14/17, he fell out of bed on his stump when he tried to maneuver into his wheelchair. Progress of Wound: Recent surgery 06/22/18. Improvement. - Physical Exam Vital Signs Temp Pulse Resp BP 97.9 F 80 18 164/61 H 08/31/18 11:51 08/31/18 11:51 08/31/18 11:51 08/31/18 11:51 General: Alert, Oriented x3, Cooperative HEENT: Atraumatic Oral: Moist Mucosa Lungs: Normal air movement Cardiovascular: Regular rate Extremities: Capillary Refill Less than 3 Seconds, Edema, Tenderness Skin: Ulcer/ Wound - Left BKA ulcer Wound Measurements and Assessment WC - Nurse 1 - General Ulcer Measurement Start: 08/17/18 09:28 Freq: Status: Active Protocol: Activity Type Activity Date Activity User E-Sign Co-Sign Detail Recorded Client Recorded Date Recorded By Document 08/31/18 11:51 DL [id number] 08/31/18 11:53 DL 08/31/18 11:51 Wound Center Nurse 1 [Ulcer Assessment] #26 L BKA post op incision -Current Size (cm) - Length 1 -Current Size (cm) - Width 1.5 -Current Size (cm) - Depth 2 -Total Square Cm 1.5 -Photo Taken No -Exudate Amt Small -Exudate Type Serosanguineous -Wound Margin Distinct, Outline Attached -Granulation Amt Large (67-100%) -Granulation Quality Red -Necrosis Amt None Present (0 %) -Structure Exposed N/A -Texture (Yael-wound Skin Appearance) Scarring -Moisture (Yael-wound Skin Appearance Dry/Scaly ) -Color (Yael-wound Skin Appearance) No Abnormality -Temperature (Yael-wound Skin No Abnormality Appearance) (Pt Warm) -Tenderness on Palpation (Yael-wound No Skin Appearance) -Ulcer Cleansing Rinsed/ Irrigated with Saline -Foul Odor after Cleansing No -Anesthetic Used 5% Lidocaine Gel WC - Nurse 2 - General Ulcer CM Notes Start: 08/17/18 09:28 Freq: Status: Active Protocol: Activity Type Activity Date Activity User E-Sign Co-Sign Detail Recorded Client Recorded Date Recorded By Document 08/31/18 12:37 [id number] 08/31/18 12:39 08/31/18 12:37 Wound Center Nurse 2 [Procedure/Treatment] -Time 12:38 -Correct Patient Yes -Correct Side, Site, Position Yes -Correct Procedure Yes -Procedure Performed Yes -Type of Procedure Debridement -Clinical Debridement Subcutaneous -Post Debridement Size (cm) - Length 1.4 -Post Debridement Size (cm) - Width 1.8 -Post Debridement Size (cm) - Depth 1.4 -Total Square Cm 2.52 -Wound/Ulcer Outcome Not Healed -Ulcer Cleansing Rinsed/ Irrigated with Saline -Foul Odor after Cleansing No -Bioengineered Tissue No -Bleeding Controlled with Pressure -Offloading No -Treatment Response Procedure Tolerated Well [See Physician Procedure note for Specifics] Pain Scale: 0-10 Numeric [Pain] -Is Patient Pain Free? Yes Musculoskeletal: Tenderness Neurological: Neuro grossly intact Psych/Mental Status: Normal Affect, Appropriate Debridement Note Post-Debridement Measurements/Treatment WC - Nurse 2 - General Ulcer CM Notes Start: 08/17/18 09:28 Freq: Status: Active Protocol: Activity Type Activity Date Activity User E-Sign Co-Sign Detail Recorded Client Recorded Date Recorded By Document 08/17/18 10:06 [id number] 08/17/18 10:09 Document 08/24/18 11:33 [id number] 08/24/18 11:35 Document 08/31/18 12:37 [id number] 08/31/18 12:39 08/17/18 08/24/18 08/31/18 10:06 11:33 12:37 Wound Center Nurse 2 #26 L BKA post op incision -Time 10:08 11:34 12:38 -Correct Patient Yes Yes Yes -Correct Side, Site, Position Yes Yes Yes -Correct Procedure Yes Yes Yes -Procedure Performed Yes Yes Yes -Type of Procedure Debridement Debridement Debridement -Clinical Debridement Subcutaneous Subcutaneous Subcutaneous -Post Debridement Size (cm) - Length 1.8 1.4 1.4 -Post Debridement Size (cm) - Width 2.7 2.7 1.8 -Post Debridement Size (cm) - Depth 3.4 2.5 1.4 -Total Square Cm 4.86 3.78 2.52 -Wound/Ulcer Outcome Not Healed Not Healed Not Healed -Ulcer Cleansing Rinsed/ Rinsed/ Rinsed/ Irrigated with Irrigated with Irrigated with Saline Saline Saline -Foul Odor after Cleansing No No No -Bioengineered Tissue No No No -Bleeding Controlled with Pressure Pressure Pressure -Offloading No No No -Treatment Response Procedure Procedure Procedure Tolerated Well Tolerated Well Tolerated Well Pain Scale: 0-10 Numeric Is Patient Pain Free? Yes Yes Yes Wound debrided: Left stump ulcer Laterality: Left Type of Debridement: Excisional debridement Anesthesia Used: 5% Lidocaine Gel Depth: Down to and including healthy tissue, in the subcutaneous layer Percentage of wound debrided: 100 Instrument Used: 5mm curette Tissue Removed: Subcutaneous tissue and slough Severity: Fat Layer Exposed Amount of bleeding with debridement: Mild Bleeding Controlled with: Compression and gauze Patient tolerated procedure well Assessment/Plan Active Problems (Last Reviewed 09/01/17 @ 13:36 by Shanique Martinez) Ulceration of below knee amputation stump (Chronic) Diabetes mellitus with ulcer of lower extremity (Chronic) Nonhealing ulcer of left lower extremity (Chronic) Osteomyelitis (Chronic) Personal history of Methicillin resistant Staphylococcus aureus infection (Chronic) History of left below knee amputation (Chronic) Assessment: 1. Nonhealing ulcer left BKA stump after a fall. 2. Infection of left BKA stump. 3. Osteomyelitis. 4. MRSA. 5. Diabetes mellitus. 6. Former smoker. 7. s/p surgical preparation left BKA stump with incision and drainage and excisional debridement nonhealing infected diabetic stump ulcer (5.25 cm2) and placement Amniofill placental connective tissue powder Plan: The stump ulcer appears clean. Some granulation tissue seen at the edges. Continue the wound VAC, will keep suction at 150 mmHg continuous suction. Will increase to three times per week for vac changes. Patient and family are now applying the wound VAC three times per week. He ran out of home health visits for the year. They deny having issues applying the VAC. Apply CONCHIS wrap for compression. Operative culture showed Corynebacterium minutissimum. His preop culture showed Staphylococcus epidermidis and Anaerobic cocci. He was placed on Doxycycline and Flagyl and has finished the Flagyl. He finishes the Doxycycline at the end of the week, which we will refill. Prealbumin from 06/23/18 was 29.1. Encourage nutritional supplementation with protein to help the healing process. His HgbA1c is 6.7. Before any attempts at wound closure in the future, he would need a partial ostectomy of his tibial bone to evaluate for osteomyelitis. If we cannot eradicate the osteomyelitis in his tibial bone, he may ultimately need an AKA. Patient voices understanding and wants to pursue aggressive treatments in order to salvage the BKA stump. Followup one week. Code Visit [id number]
[2018-09-14 11:20] VITALS: BP 155/95; PULSE 97; RESP 22; TEMP 36.4; BMI 40.6
--- NOTE | 2018-09-14 18:17 | PCM.WC.PN ---
Type of Wound Date of Service: 09/14/18 Chief Complaint: Nonhealing ulcer left BKA stump after a fall. History of Wound: Surgery 06/22/18 - Surgical preparation left BKA stump with incision and drainage and excisional debridement nonhealing infected diabetic stump ulcer (5.25 cm2) and placement Amniofill placental connective tissue powder. Wound care - VAC. Operative culture - Corynebacterium minutissimum. Preop culture showed Staphylococcus epidermidis and Anaerobic cocci. He was placed on Doxycycline and Flagyl and has finished them. Prealbumin from 06/23/18 was 29.1. Encourage nutritional supplementation with protein to help the healing process. Today he denies fever. His appetite is good. Progress of Wound: Improved. - Physical Exam Vital Signs Temp Pulse Resp BP 97.6 F L 97 22 H 155/95 H 09/14/18 11:20 09/14/18 11:20 09/14/18 11:20 09/14/18 11:20 Debridement Note Post-Debridement Measurements/Treatment WC - Nurse 2 - General Ulcer CM Notes Start: 08/17/18 09:28 Freq: Status: Active Protocol: Activity Type Activity Date Activity User E-Sign Co-Sign Detail Recorded Client Recorded Date Recorded By Document 08/17/18 10:06 [id number] 08/17/18 10:09 Document 08/24/18 11:33 [id number] 08/24/18 11:35 Document 08/31/18 12:37 MW [id number] 08/31/18 12:39 MW Document 09/14/18 12:09 MW [id number] 09/14/18 12:13 MW 08/17/18 08/24/18 08/31/18 10:06 11:33 12:37 Wound Center Nurse 2 #26 L BKA post op incision -Time 10:08 11:34 12:38 -Correct Patient Yes Yes Yes -Correct Side, Site, Position Yes Yes Yes -Correct Procedure Yes Yes Yes -Procedure Performed Yes Yes Yes -Type of Procedure Debridement Debridement Debridement -Clinical Debridement Subcutaneous Subcutaneous Subcutaneous -Post Debridement Size (cm) - Length 1.8 1.4 1.4 -Post Debridement Size (cm) - Width 2.7 2.7 1.8 -Post Debridement Size (cm) - Depth 3.4 2.5 1.4 -Total Square Cm 4.86 3.78 2.52 -Wound/Ulcer Outcome Not Healed Not Healed Not Healed -Ulcer Cleansing Rinsed/ Rinsed/ Rinsed/ Irrigated with Irrigated with Irrigated with Saline Saline Saline -Foul Odor after Cleansing No No No -Bioengineered Tissue No No No -Bleeding Controlled with Pressure Pressure Pressure -Offloading No No No -Treatment Response Procedure Procedure Procedure Tolerated Well Tolerated Well Tolerated Well Pain Scale: 0-10 Numeric Is Patient Pain Free? Yes Yes Yes 09/14/18 12:09 Wound Center Nurse 2 #26 L BKA post op incision -Time 12:10 -Correct Patient Yes -Correct Side, Site, Position Yes -Correct Procedure Yes -Procedure Performed Yes -Type of Procedure Debridement -Clinical Debridement Subcutaneous -Post Debridement Size (cm) - Length 0.7 -Post Debridement Size (cm) - Width 1.5 -Post Debridement Size (cm) - Depth 0.7 -Total Square Cm 1.05 -Wound/Ulcer Outcome Not Healed -Ulcer Cleansing Rinsed/ Irrigated with Saline -Foul Odor after Cleansing No -Bioengineered Tissue No -Bleeding Controlled with Pressure -Offloading No -Treatment Response Procedure Tolerated Well Pain Scale: 0-10 Numeric Is Patient Pain Free? Yes Wound debrided: #26 Left BKA stump. Laterality: Left Wound Grade/Stage: 4. Type of Debridement: Excisional debridement Anesthesia Used: 4% Lidocaine Solution Depth: Down to and including healthy tissue, in the subcutaneous layer Percentage of wound debrided: 100 Instrument Used: 5mm curette Tissue Removed: subcutaneous tissue. Severity: Fat Layer Exposed Amount of bleeding with debridement: Mild Bleeding Controlled with: Pressure Patient tolerated procedure well Assessment/Plan Assessment: 1. Nonhealing ulcer left BKA stump after a fall. 2. Infection of left BKA stump. 3. Osteomyelitis. 4. MRSA. 5. Diabetes mellitus. 6. Former smoker. 7. s/p surgical preparation left BKA stump with incision and drainage and excisional debridement nonhealing infected diabetic stump ulcer (5.25 cm2) and placement Amniofill placental connective tissue powder. Plan: The stump ulcer appears clean. Some granulation tissue seen at the edges. Amniofill is in the base. Continue the VAC. Operative culture showed Corynebacterium minutissimum. His preop culture showed Staphylococcus epidermidis and Anaerobic cocci. He was placed on Doxycycline and Flagyl and has finished them. Prealbumin from 06/23/18 was 29.1. Encourage nutritional supplementation with protein to help the healing process. His HgbA1c is 6.7. Before any attempts at wound closure in the future depending on the status of the ulcer, he may need a partial ostectomy of his tibial bone to evaluate for osteomyelitis. If we cannot eradicate the osteomyelitis in his tibial bone, he may ultimately need an AKA. Patient voices understanding and wants to pursue aggressive treatments in order to salvage the BKA stump. Followup one week. When the ulcer becomes more superficial, may consider a placental connective tissue graft.
== END 2018-09-16 23:59 ==
LOC: WC 10:45
PROVIDERS: Family Provider Family Medicine; PCP Family Medicine; Visit Provider Surgery
DX: T87.81 Dehiscence of amputation stump (principal); E11.622 Type 2 diabetes mellitus with other skin ulcer; Y83.8 Other surgical procedures as the cause of abnormal reaction of the patient, or of later complication, without mention of misadventure at the time of the procedure; L97.822 Non-pressure chronic ulcer of other part of left lower leg with fat layer exposed; Z87.891 Personal history of nicotine dependence; Z86.14 Personal history of Methicillin resistant Staphylococcus aureus infection; T87.44 Infection of amputation stump, left lower extremity
CPT/HCPCS: 11042; 97605

== ENCOUNTER 2018-10-12 09:45 | Outpatient (RCR) | payer MEDICARE, SELFPAY ==
[2018-09-17 00:38] VITALS: BP 155/95; PULSE 97; RESP 22; TEMP 36.4
[2018-09-21 12:22] VITALS: BP 148/76; PULSE 97; RESP 18; TEMP 37.1; BMI 40.6
--- NOTE | 2018-09-21 13:44 | PN.PCM_ITS ---
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 History of Wound: Surgery 06/22/18 - Surgical preparation left BKA stump with incision and drainage and excisional debridement nonhealing infected diabetic stump ulcer (5.25 cm2) and placement Amniofill placental connective tissue powder. Wound care - will take a wound VAC holiday today and do daily silver dressing changes this week. Operative culture - Corynebacterium minutissimum. Preop culture showed Staphylococcus epidermidis and Anaerobic cocci. He was placed on Doxycycline and Flagyl and has finished them. Prealbumin from 06/23/18 was 29.1. Encourage nutritional supplementation with protein to help the healing process. Today he denies fever. His appetite is good. Progress of Wound: Improved. - Physical Exam Vital Signs Temp Pulse Resp BP 98.8 F 97 18 148/76 H 09/21/18 12:22 09/21/18 12:22 09/21/18 12:22 09/21/18 12:22 General: Alert, Oriented x3, Cooperative HEENT: Atraumatic Oral: Moist Mucosa Lungs: Normal air movement Cardiovascular: Regular rate Extremities: No edema, Capillary Refill Less than 3 Seconds Skin: Ulcer/ Wound - Left BKA ulcer Wound Measurements and Assessment WC - Nurse 1 - General Ulcer Measurement Start: 09/21/18 12:22 Freq: Status: Active Protocol: Activity Type Activity Date Activity User E-Sign Co-Sign Detail Recorded Client Recorded Date Recorded By Document 09/21/18 12:22 CAIO [id number] 09/21/18 12:30 DL 09/21/18 12:22 Wound Center Nurse 1 [Ulcer Assessment] #26 L BKA post op incision -Current Size (cm) - Length 0.5 -Current Size (cm) - Width 0.9 -Current Size (cm) - Depth 0.6 -Total Square Cm 0.45 -Photo Taken No -Exudate Amt None Present -Wound Margin Distinct, Outline Attached -Granulation Amt Large (67-100%) -Granulation Quality Red -Necrosis Amt None Present (0 %) -Structure Exposed N/A -Texture (Yael-wound Skin Appearance) Scarring -Moisture (Yael-wound Skin Appearance Maceration ) -Color (Yael-wound Skin Appearance) Rubor -Temperature (Yael-wound Skin No Abnormality Appearance) (Pt Warm) -Tenderness on Palpation (Yael-wound No Skin Appearance) -Ulcer Cleansing Rinsed/ Irrigated with Saline -Foul Odor after Cleansing No -Anesthetic Used 5% Lidocaine Gel WC - Nurse 2 - General Ulcer CM Notes Start: 09/21/18 12:22 Freq: Status: Active Protocol: Activity Type Activity Date Activity User E-Sign Co-Sign Detail Recorded Client Recorded Date Recorded By Document 09/21/18 13:16 [email or web address] [id number] 09/21/18 13:19 09/21/18 13:16 Wound Center Nurse 2 [Procedure/Treatment] -Time 13:18 -Correct Patient Yes -Correct Side, Site, Position Yes -Correct Procedure Yes -Procedure Performed Yes -Type of Procedure Debridement -Clinical Debridement Subcutaneous -Post Debridement Size (cm) - Length 0.7 -Post Debridement Size (cm) - Width 1.5 -Post Debridement Size (cm) - Depth 1.0 -Total Square Cm 1.05 -Wound/Ulcer Outcome Not Healed -Ulcer Cleansing Rinsed/ Irrigated with Saline -Foul Odor after Cleansing No -Bioengineered Tissue No -Bleeding Controlled with Pressure -Offloading No -Treatment Response Procedure Tolerated Well [See Physician Procedure note for Specifics] Pain Scale: 0-10 Numeric [Pain] -Is Patient Pain Free? Yes Musculoskeletal: No Tenderness to Palpation of Joints or Extremities Neurological: Neuro grossly intact Psych/Mental Status: Normal Affect, Appropriate Debridement Note Post-Debridement Measurements/Treatment WC - Nurse 2 - General Ulcer CM Notes Start: 09/21/18 12:22 Freq: Status: Active Protocol: Activity Type Activity Date Activity User E-Sign Co-Sign Detail Recorded Client Recorded Date Recorded By Document 09/21/18 13:16 [id number] 09/21/18 13:19 [email or web address] 09/21/18 13:16 Wound Center Nurse 2 #26 L BKA post op incision -Time 13:18 -Correct Patient Yes -Correct Side, Site, Position Yes -Correct Procedure Yes -Procedure Performed Yes -Type of Procedure Debridement -Clinical Debridement Subcutaneous -Post Debridement Size (cm) - Length 0.7 -Post Debridement Size (cm) - Width 1.5 -Post Debridement Size (cm) - Depth 1.0 -Total Square Cm 1.05 -Wound/Ulcer Outcome Not Healed -Ulcer Cleansing Rinsed/ Irrigated with Saline -Foul Odor after Cleansing No -Bioengineered Tissue No -Bleeding Controlled with Pressure -Offloading No -Treatment Response Procedure Tolerated Well Pain Scale: 0-10 Numeric Is Patient Pain Free? Yes Wound debrided: Left BKA ulcer Laterality: Left Type of Debridement: Excisional debridement Anesthesia Used: 4% Lidocaine Solution, 5% Lidocaine Gel Depth: Down to and including healthy tissue, in the subcutaneous layer Percentage of wound debrided: 100 Instrument Used: 3mm curette Tissue Removed: Subcutaneous tissue and slough Severity: Fat Layer Exposed Amount of bleeding with debridement: Mild Bleeding Controlled with: Compression and gauze Patient tolerated procedure well Assessment/Plan Assessment: 1. Nonhealing ulcer left BKA stump after a fall. 2. Infection of left BKA stump. 3. Osteomyelitis. 4. MRSA. 5. Diabetes mellitus. 6. Former smoker. 7. s/p surgical preparation left BKA stump with incision and drainage and excisional debridement nonhealing infected diabetic stump ulcer (5.25 cm2) and placement Amniofill placental connective tissue powder. Plan: The stump ulcer appears clean. Some granulation tissue seen at the edges. Will take a VAC holiday this week. He will do daily silver dressing changes and use CONCHIS wrap for compression. Operative culture showed Corynebacterium minutissimum. His preop culture showed Staphylococcus epidermidis and Anaerobic cocci. He was placed on Doxycycline and Flagyl and has finished them. Prealbumin from 06/23/18 was 29.1. Encourage nutritional supplementation with protein to help the healing process. His HgbA1c is 6.7. Before any attempts at wound closure in the future depending on the status of the ulcer, he may need a partial ostectomy of his tibial bone to evaluate for osteomyelitis. If we cannot eradicate the osteomyelitis in his tibial bone, he may ultimately need an AKA. Patient voices understanding and wants to pursue aggressive treatments in order to salvage the BKA stump. Followup one week. When the ulcer becomes more superficial, may consider a placental connective tissue graft. Code Visit 38255
[2018-09-28 11:15] VITALS: BMI 40.6
--- NOTE | 2018-09-28 23:44 | PCM.WC.PN ---
Type of Wound Date of Service: 09/28/18 Chief Complaint: Nonhealing ulcer left BKA stump after a fall. History of Wound: Surgery 06/22/18 - Surgical preparation left BKA stump with incision and drainage and excisional debridement nonhealing infected diabetic stump ulcer (5.25 cm2) and placement Amniofill placental connective tissue powder. Wound care - Silver with VAC holiday. Operative culture - Corynebacterium minutissimum. Preop culture showed Staphylococcus epidermidis and Anaerobic cocci. He was placed on Doxycycline and Flagyl and has finished them. Prealbumin from 06/23/18 was 29.1. Encourage nutritional supplementation with protein to help the healing process. Today he denies fever. His appetite is good. Progress of Wound: Improved. - Physical Exam Vital Signs Temp Pulse Resp BP 98.8 F 97 18 148/76 H 09/21/18 12:22 09/21/18 12:22 09/21/18 12:22 09/21/18 12:22 Wound Measurements and Assessment WC - Nurse 1 - General Ulcer Measurement Start: 09/21/18 12:22 Freq: Status: Active Protocol: Activity Type Activity Date Activity User E-Sign Co-Sign Detail Recorded Client Recorded Date Recorded By Document 09/28/18 11:15 DV [id number] 09/28/18 11:19 DV 09/28/18 11:15 Wound Center Nurse 1 [Ulcer Assessment] #26 L BKA post op incision -Combined with other wound No -Current Size (cm) - Length 0.6 -Current Size (cm) - Width 0.3 -Current Size (cm) - Depth 1.1 -Total Square Cm 0.18 -Date of Last Picture (Recall this 09/28/18 field) -Photo Taken Yes -Epithelialization Small 1-33% -Tunneling No -Undermining/Tunneling No -Circular Undermining No -Exudate Amt Small -Exudate Type Serous -Wound Margin Indistinct, Non -Visible -Granulation Amt Small (1-33%) -Granulation Quality Pale,[place] -Slough/Fibrin Yes -Necrosis Amt Small (1-33%) -Necrotic Tissue Type Adherent Slough -Structure Exposed None/Limited to Skin Breakdown -Texture (Yael-wound Skin Appearance) Assessed, Scarring -Moisture (Yael-wound Skin Appearance Assessed, ) Weeping -Color (Yael-wound Skin Appearance) No Abnormality, Assessed -Temperature (Yael-wound Skin No Abnormality Appearance) (Pt Warm) -Tenderness on Palpation (Yael-wound No Skin Appearance) -Foul Odor after Cleansing No -Anesthetic Used 4% Lidocaine Solution - Nurse 2 - General Ulcer CM Notes Start: 09/21/18 12:22 Freq: Status: Active Protocol: Activity Type Activity Date Activity User E-Sign Co-Sign Detail Recorded Client Recorded Date Recorded By Document 09/28/18 11:42 [id number] 09/28/18 11:44 09/28/18 11:42 Wound Center Nurse 2 [Procedure/Treatment] -Time 11:42 -Correct Patient Yes -Correct Side, Site, Position Yes -Correct Procedure Yes -Procedure Performed Yes -Type of Procedure Debridement -Clinical Debridement Subcutaneous -Post Debridement Size (cm) - Length 0.8 -Post Debridement Size (cm) - Width 1.4 -Post Debridement Size (cm) - Depth 1.1 -Total Square Cm 1.12 -Wound/Ulcer Outcome Not Healed -Ulcer Cleansing Rinsed/ Irrigated with Saline -Foul Odor after Cleansing No -Bioengineered Tissue No -Bleeding Controlled with Pressure -Offloading No -Treatment Response Procedure Tolerated Well [See Physician Procedure note for Specifics] Pain Scale: 0-10 Numeric [Pain] -Is Patient Pain Free? Yes Debridement Note Post-Debridement Measurements/Treatment - Nurse 2 - General Ulcer CM Notes Start: 09/21/18 12:22 Freq: Status: Active Protocol: Activity Type Activity Date Activity User E-Sign Co-Sign Detail Recorded Client Recorded Date Recorded By Document 09/21/18 13:16 [id number] 09/21/18 13:19 Document 09/28/18 11:42 [id number] 09/28/18 11:44 09/21/18 09/28/18 13:16 11:42 Wound Center Nurse 2 #26 L BKA post op incision -Time 13:18 11:42 -Correct Patient Yes Yes -Correct Side, Site, Position Yes Yes -Correct Procedure Yes Yes -Procedure Performed Yes Yes -Type of Procedure Debridement Debridement -Clinical Debridement Subcutaneous Subcutaneous -Post Debridement Size (cm) - Length 0.7 0.8 -Post Debridement Size (cm) - Width 1.5 1.4 -Post Debridement Size (cm) - Depth 1.0 1.1 -Total Square Cm 1.05 1.12 -Wound/Ulcer Outcome Not Healed Not Healed -Ulcer Cleansing Rinsed/ Rinsed/ Irrigated with Irrigated with Saline Saline -Foul Odor after Cleansing No No -Bioengineered Tissue No No -Bleeding Controlled with Pressure Pressure -Offloading No No -Treatment Response Procedure Procedure Tolerated Well Tolerated Well Pain Scale: 0-10 Numeric Is Patient Pain Free? Yes Yes Wound debrided: #26 Left BKA stump. Laterality: Left Wound Grade/Stage: 4. Type of Debridement: Excisional debridement Anesthesia Used: 4% Lidocaine Solution Depth: Down to and including healthy tissue, in the subcutaneous layer Percentage of wound debrided: 100 Instrument Used: 5mm curette Tissue Removed: subcutaneous tissue. Severity: Fat Layer Exposed Amount of bleeding with debridement: Mild Bleeding Controlled with: Pressure Patient tolerated procedure well Assessment/Plan Assessment: 1. Nonhealing ulcer left BKA stump after a fall. 2. Infection of left BKA stump. 3. Osteomyelitis. 4. MRSA. 5. Diabetes mellitus. 6. Former smoker. 7. s/p surgical preparation left BKA stump with incision and drainage and excisional debridement nonhealing infected diabetic stump ulcer (5.25 cm2) and placement Amniofill placental connective tissue powder. Plan: The stump ulcer appears clean. Some granulation tissue seen at the edges. Amniofill is in the base. The ulcer is getting more superficial. Will stop the VAC. Continue Silver dressing changes daily. Operative culture showed Corynebacterium minutissimum. His preop culture showed Staphylococcus epidermidis and Anaerobic cocci. He was placed on Doxycycline and Flagyl and has finished them. Prealbumin from 06/23/18 was 29.1. Encourage nutritional supplementation with protein to help the healing process. His HgbA1c is 6.7. Before any attempts at wound closure in the future depending on the status of the ulcer, he may need a partial ostectomy of his tibial bone to evaluate for osteomyelitis. If we cannot eradicate the osteomyelitis in his tibial bone, he may ultimately need an AKA. Patient voices understanding and wants to pursue aggressive treatments in order to salvage the BKA stump. Followup one week. Since the ulcer is more superficial, will consider placement Epifix placental connective tissue graft next week.
[2018-10-05 11:12] VITALS: BP 149/85; PULSE 92; RESP 18; TEMP 36.2; BMI 40.6
--- NOTE | 2018-10-05 21:42 | PCM.WC.PN ---
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 History of Wound: Surgery 06/22/18 - Surgical preparation left BKA stump with incision and drainage and excisional debridement nonhealing infected diabetic stump ulcer (5.25 cm2) and placement Amniofill placental connective tissue powder. Wound care - Stop silver and start Olivia. Operative culture - Corynebacterium minutissimum. Preop culture showed Staphylococcus epidermidis and Anaerobic cocci. He was placed on Doxycycline and Flagyl and has finished them. Prealbumin from 06/23/18 was 29.1. Encourage nutritional supplementation with protein to help the healing process. Today he denies fever. His appetite is good. Progress of Wound: Stable. Would benefit from an advanced wound healing product such as Epifix. - Physical Exam Vital Signs Temp Pulse Resp BP 97.1 F L 92 18 149/85 H 10/05/18 11:12 10/05/18 11:12 10/05/18 11:12 10/05/18 11:12 General: Alert, Oriented x3, Cooperative HEENT: Atraumatic Oral: Moist Mucosa Lungs: Normal air movement Cardiovascular: Regular rate Extremities: No edema, Capillary Refill Less than 3 Seconds Skin: Ulcer/ Wound - Right BKA ulcer Wound Measurements and Assessment WC - Nurse 1 - General Ulcer Measurement Start: 09/21/18 12:22 Freq: Status: Active Protocol: Activity Type Activity Date Activity User E-Sign Co-Sign Detail Recorded Client Recorded Date Recorded By Document 10/05/18 11:12 IA [id number] 10/05/18 11:17 IA 10/05/18 11:12 Wound Center Nurse 1 [Ulcer Assessment] #26 L BKA post op incision -Current Size (cm) - Length 0.6 -Current Size (cm) - Width 1.5 -Current Size (cm) - Depth 0.6 -Total Square Cm 0.90 -Exudate Amt Small -Exudate Type Yellow/Green -Wound Margin Thickened & Rolled Under -Granulation Amt Large (67-100%) -Granulation Quality Pale,[place] -Necrosis Amt Small (1-33%) -Necrotic Tissue Type Adherent Slough -Texture (Yael-wound Skin Appearance) Assessed, Scarring -Moisture (Yael-wound Skin Appearance Assessed, ) Maceration -Color (Yael-wound Skin Appearance) Assessed -Temperature (Yael-wound Skin No Abnormality Appearance) (Pt Warm) -Tenderness on Palpation (Yael-wound No Skin Appearance) -Ulcer Cleansing Rinsed/ Irrigated with Saline -Foul Odor after Cleansing No -Anesthetic Used 4% Lidocaine Solution [Edema Assessment] -Lower Limb Edema Present No WC - Nurse 2 - General Ulcer CM Notes Start: 09/21/18 12:22 Freq: Status: Active Protocol: Activity Type Activity Date Activity User E-Sign Co-Sign Detail Recorded Client Recorded Date Recorded By Document 10/05/18 11:43 [id number] 10/05/18 11:46 10/05/18 11:43 Wound Center Nurse 2 [Procedure/Treatment] #26 L BKA post op incision -Time 11:45 -Correct Patient Yes -Correct Side, Site, Position Yes -Correct Procedure Yes -Procedure Performed Yes -Type of Procedure Debridement -Clinical Debridement Subcutaneous -Post Debridement Size (cm) - Length 0.5 -Post Debridement Size (cm) - Width 1.5 -Post Debridement Size (cm) - Depth 0.5 -Total Square Cm 0.75 -Wound/Ulcer Outcome Not Healed -Ulcer Cleansing Rinsed/ Irrigated with Saline -Foul Odor after Cleansing No -Bioengineered Tissue No -Bleeding Controlled with Pressure -Offloading Yes -Type of Offloading Knee Walker -Treatment Response Procedure Tolerated Well [See Physician Procedure note for Specifics] Pain Scale: 0-10 Numeric [Pain] -Is Patient Pain Free? Yes Musculoskeletal: No Tenderness to Palpation of Joints or Extremities Neurological: Neuro grossly intact Psych/Mental Status: Normal Affect, Appropriate Debridement Note Post-Debridement Measurements/Treatment WC - Nurse 2 - General Ulcer CM Notes Start: 09/21/18 12:22 Freq: Status: Active Protocol: Activity Type Activity Date Activity User E-Sign Co-Sign Detail Recorded Client Recorded Date Recorded By Document 09/21/18 13:16 [id number] 09/21/18 13:19 Document 09/28/18 11:42 [id number] 09/28/18 11:44 Document 10/05/18 11:43 [id number] 10/05/18 11:46 09/21/18 09/28/18 10/05/18 13:16 11:42 11:43 Wound Center Nurse 2 #26 L BKA post op incision -Time 13:18 11:42 11:45 -Correct Patient Yes Yes Yes -Correct Side, Site, Position Yes Yes Yes -Correct Procedure Yes Yes Yes -Procedure Performed Yes Yes Yes -Type of Procedure Debridement Debridement Debridement -Clinical Debridement Subcutaneous Subcutaneous Subcutaneous -Post Debridement Size (cm) - Length 0.7 0.8 0.5 -Post Debridement Size (cm) - Width 1.5 1.4 1.5 -Post Debridement Size (cm) - Depth 1.0 1.1 0.5 -Total Square Cm 1.05 1.12 0.75 -Wound/Ulcer Outcome Not Healed Not Healed Not Healed -Ulcer Cleansing Rinsed/ Rinsed/ Rinsed/ Irrigated with Irrigated with Irrigated with Saline Saline Saline -Foul Odor after Cleansing No No No -Bioengineered Tissue No No No -Bleeding Controlled with Pressure Pressure Pressure -Offloading No No Yes -Type of Offloading Knee Walker -Treatment Response Procedure Procedure Procedure Tolerated Well Tolerated Well Tolerated Well Pain Scale: 0-10 Numeric Is Patient Pain Free? Yes Yes Yes Wound debrided: Right BKA stump ulcer Laterality: Right Type of Debridement: Excisional debridement Anesthesia Used: 4% Lidocaine Solution, 5% Lidocaine Gel Depth: Down to and including healthy tissue, in the subcutaneous layer Percentage of wound debrided: 100 Instrument Used: 3mm curette Tissue Removed: Subcutaneous tissue and slough Severity: Limited To Skin Breakdown Amount of bleeding with debridement: Mild Bleeding Controlled with: Pressure, Compression and gauze Patient tolerated procedure well Assessment/Plan Assessment: 1. Nonhealing ulcer left BKA stump after a fall. 2. Infection of left BKA stump. 3. Osteomyelitis. 4. MRSA. 5. Diabetes mellitus. 6. Former smoker. 7. s/p surgical preparation left BKA stump with incision and drainage and excisional debridement nonhealing infected diabetic stump ulcer (5.25 cm2) and placement Amniofill placental connective tissue powder. Plan: The stump ulcer appears clean. Some granulation tissue seen at the edges. Amniofill is in the base. The ulcer is getting more superficial. Will stop the VAC. Stop Silver dressing changes and start Olivia daily. Operative culture showed Corynebacterium minutissimum. His preop culture showed Staphylococcus epidermidis and Anaerobic cocci. He was placed on Doxycycline and Flagyl and has finished them. Prealbumin from 06/23/18 was 29.1. Encourage nutritional supplementation with protein to help the healing process. His HgbA1c is 6.7. Before any attempts at wound closure in the future depending on the status of the ulcer, he may need a partial ostectomy of his tibial bone to evaluate for osteomyelitis. If we cannot eradicate the osteomyelitis in his tibial bone, he may ultimately need an AKA. Patient voices understanding and wants to pursue aggressive treatments in order to salvage the BKA stump. Followup one week. Since the ulcer is more superficial, will consider placement Epifix placental connective tissue graft next week. Code Visit [id number]: 80370 Aimee subq tissue 20 sq cm/<
[2018-10-12 09:54] VITALS: BP 164/78; PULSE 76; RESP 20; TEMP 36.4; BMI 40.6
--- NOTE | 2018-10-12 17:05 | PN.PCM_ITS ---
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 History of Wound: Surgery 06/22/18 - Surgical preparation left BKA stump with incision and drainage and excisional debridement nonhealing infected diabetic stump ulcer (5.25 cm2) and placement Amniofill placental connective tissue powder. Wound care - Stop silver and start Oilvia. Operative culture - Corynebacterium minutissimum. Preop culture showed Staphylococcus epidermidis and Anaerobic cocci. He was placed on Doxycycline and Flagyl and has finished them. Prealbumin from 06/23/18 was 29.1. Encourage nutritional supplementation with protein to help the healing process. Today he denies fever. His appetite is good. Progress of Wound: Stable. Would benefit from an advanced wound healing product such as Epifix. Waiting for approval for epifix - Physical Exam Vital Signs Temp Pulse Resp BP 97.6 F L 76 20 H 164/78 H 10/12/18 09:54 10/12/18 09:54 10/12/18 09:54 10/12/18 09:54 General: Alert, Oriented x3, Cooperative HEENT: Atraumatic Oral: Moist Mucosa Lungs: Normal air movement Cardiovascular: Regular rate Extremities: No edema, Capillary Refill Less than 3 Seconds Skin: Ulcer/ Wound - Left BKA ulcer Wound Measurements and Assessment WC - Nurse 1 - General Ulcer Measurement Start: 09/21/18 12:22 Freq: Status: Active Protocol: Activity Type Activity Date Activity User E-Sign Co-Sign Detail Recorded Client Recorded Date Recorded By Document 10/12/18 09:54 DL [id number] 10/12/18 09:59 DL 10/12/18 09:54 Wound Center Nurse 1 [Ulcer Assessment] #26 L BKA post op incision -Current Size (cm) - Length 0.3 -Current Size (cm) - Width 1 -Current Size (cm) - Depth 0.3 -Total Square Cm 0.3 -Photo Taken No -Exudate Amt None Present -Exudate Type Serosanguineous -Wound Margin Distinct, Outline Attached -Granulation Amt Small (1-33%) -Granulation Quality [place] -Necrosis Amt Small (1-33%) -Necrotic Tissue Type Adherent Slough -Structure Exposed N/A -Texture (Yael-wound Skin Appearance) Scarring -Moisture (Yael-wound Skin Appearance Dry/Scaly ) -Color (Yael-wound Skin Appearance) No Abnormality -Temperature (Yael-wound Skin No Abnormality Appearance) (Pt Warm) -Tenderness on Palpation (Yael-wound No Skin Appearance) -Ulcer Cleansing Wound Cleanser -Foul Odor after Cleansing No -Anesthetic Used 4% Lidocaine Solution - Nurse 2 - General Ulcer CM Notes Start: 09/21/18 12:22 Freq: Status: Active Protocol: Activity Type Activity Date Activity User E-Sign Co-Sign Detail Recorded Client Recorded Date Recorded By Document 10/12/18 10:34 [email or web address] [id number] 10/12/18 10:35 [email or web address] 10/12/18 10:34 Wound Center Nurse 2 [Procedure/Treatment] -Time 10:34 -Correct Patient Yes -Correct Side, Site, Position Yes -Correct Procedure Yes -Procedure Performed Yes -Type of Procedure Debridement -Clinical Debridement Subcutaneous -Post Debridement Size (cm) - Length 0.4 -Post Debridement Size (cm) - Width 1.2 -Post Debridement Size (cm) - Depth 0.3 -Total Square Cm 0.48 -Wound/Ulcer Outcome Not Healed -Ulcer Cleansing Rinsed/ Irrigated with Saline -Foul Odor after Cleansing No -Bioengineered Tissue No -Bleeding Controlled with Pressure -Offloading No -Treatment Response Procedure Tolerated Well [See Physician Procedure note for Specifics] Pain Scale: 0-10 Numeric [Pain] -Is Patient Pain Free? Yes Musculoskeletal: No Tenderness to Palpation of Joints or Extremities Neurological: Neuro grossly intact Psych/Mental Status: Normal Affect, Appropriate Debridement Note Post-Debridement Measurements/Treatment WC - Nurse 2 - General Ulcer CM Notes Start: 09/21/18 12:22 Freq: Status: Active Protocol: Activity Type Activity Date Activity User E-Sign Co-Sign Detail Recorded Client Recorded Date Recorded By Document 09/21/18 13:16 [id number] 09/21/18 13:19 Document 09/28/18 11:42 [id number] 09/28/18 11:44 Document 10/05/18 11:43 [id number] 10/05/18 11:46 Document 10/12/18 10:34 [id number] 10/12/18 10:35 09/21/18 09/28/18 10/05/18 13:16 11:42 11:43 Wound Center Nurse 2 #26 L BKA post op incision -Time 13:18 11:42 11:45 -Correct Patient Yes Yes Yes -Correct Side, Site, Position Yes Yes Yes -Correct Procedure Yes Yes Yes -Procedure Performed Yes Yes Yes -Type of Procedure Debridement Debridement Debridement -Clinical Debridement Subcutaneous Subcutaneous Subcutaneous -Post Debridement Size (cm) - Length 0.7 0.8 0.5 -Post Debridement Size (cm) - Width 1.5 1.4 1.5 -Post Debridement Size (cm) - Depth 1.0 1.1 0.5 -Total Square Cm 1.05 1.12 0.75 -Wound/Ulcer Outcome Not Healed Not Healed Not Healed -Ulcer Cleansing Rinsed/ Rinsed/ Rinsed/ Irrigated with Irrigated with Irrigated with Saline Saline Saline -Foul Odor after Cleansing No No No -Bioengineered Tissue No No No -Bleeding Controlled with Pressure Pressure Pressure -Offloading No No Yes -Type of Offloading Knee Walker -Treatment Response Procedure Procedure Procedure Tolerated Well Tolerated Well Tolerated Well Pain Scale: 0-10 Numeric Is Patient Pain Free? Yes Yes Yes 10/12/18 10:34 Wound Center Nurse 2 #26 L BKA post op incision -Time 10:34 -Correct Patient Yes -Correct Side, Site, Position Yes -Correct Procedure Yes -Procedure Performed Yes -Type of Procedure Debridement -Clinical Debridement Subcutaneous -Post Debridement Size (cm) - Length 0.4 -Post Debridement Size (cm) - Width 1.2 -Post Debridement Size (cm) - Depth 0.3 -Total Square Cm 0.48 -Wound/Ulcer Outcome Not Healed -Ulcer Cleansing Rinsed/ Irrigated with Saline -Foul Odor after Cleansing No -Bioengineered Tissue No -Bleeding Controlled with Pressure -Offloading No -Type of Offloading -Treatment Response Procedure Tolerated Well Pain Scale: 0-10 Numeric Is Patient Pain Free? Yes Wound debrided: Left BKA ulcer Type of Debridement: Excisional debridement Anesthesia Used: 4% Lidocaine Solution, 5% Lidocaine Gel Depth: Down to and including healthy tissue, in the subcutaneous layer Percentage of wound debrided: 100 Instrument Used: 3mm curette Tissue Removed: Subcutaneous tissue and slough Severity: Fat Layer Exposed Amount of bleeding with debridement: Mild Bleeding Controlled with: Compression and gauze Patient tolerated procedure well Assessment/Plan Assessment: 1. Nonhealing ulcer left BKA stump after a fall. 2. Infection of left BKA stump. 3. Osteomyelitis. 4. MRSA. 5. Diabetes mellitus. 6. Former smoker. 7. s/p surgical preparation left BKA stump with incision and drainage and excisional debridement nonhealing infected diabetic stump ulcer (5.25 cm2) and placement Amniofill placental connective tissue powder. Plan: The stump ulcer appears clean. Some granulation tissue seen at the edges. Amniofill is in the base. The ulcer is getting more superficial. Continue moistened Olivia dressing daily. Operative culture showed Corynebacterium minutissimum. His preop culture showed Staphylococcus epidermidis and Anaerobic cocci. He was placed on Doxycycline and Flagyl and has finished them. Prealbumin from 06/23/18 was 29.1. Encourage nutritional supplementation with protein to help the healing process. His HgbA1c is 6.7. Before any attempts at wound closure in the future depending on the status of the ulcer, he may need a partial ostectomy of his tibial bone to evaluate for osteomyelitis. If we cannot eradicate the osteomyelitis in his tibial bone, he may ultimately need an AKA. Patient voices understanding and wants to pursue aggressive treatments in order to salvage the BKA stump. Followup one week. Since the ulcer is more superficial, will consider placement Epifix placental connective tissue graft when it is approved. Follow up 2 weeks due to the holiday. Code Visit [id number]: [id number] Aimee subq tissue 20 sq cm/<
== END 2018-10-17 23:59 ==
LOC: WC 09:45
PROVIDERS: Family Provider Family Medicine; PCP Family Medicine; Visit Provider Surgery
DX: T87.81 Dehiscence of amputation stump (principal); E11.622 Type 2 diabetes mellitus with other skin ulcer; L97.822 Non-pressure chronic ulcer of other part of left lower leg with fat layer exposed; Y83.8 Other surgical procedures as the cause of abnormal reaction of the patient, or of later complication, without mention of misadventure at the time of the procedure; Z86.14 Personal history of Methicillin resistant Staphylococcus aureus infection; E66.9 Obesity, unspecified; T87.44 Infection of amputation stump, left lower extremity; Z87.891 Personal history of nicotine dependence
CPT/HCPCS: 11042

== ENCOUNTER 2018-11-09 08:00 | Outpatient (RCR) | payer MEDICARE, SELFPAY ==
[2018-10-18 00:32] VITALS: BP 164/78; PULSE 76; RESP 20; TEMP 36.4
[2018-10-26 10:55] VITALS: BP 150/78; PULSE 81; RESP 18; TEMP 36.9; BMI 40.6
--- NOTE | 2018-10-26 22:34 | PN.PCM_ITS ---
Type of Wound Date of Service: 10/26/18 Chief Complaint: Nonhealing ulcer left BKA stump after a fall. History of Wound: Surgery 06/22/18 - Surgical preparation left BKA stump with incision and drainage and excisional debridement nonhealing infected diabetic stump ulcer (5.25 cm2) and placement Amniofill placental connective tissue powder. Wound care - Olivia. Operative culture - Corynebacterium minutissimum. Preop culture showed Staphylococcus epidermidis and Anaerobic cocci. He was placed on Doxycycline and Flagyl and has finished them. Prealbumin from 06/23/18 was 29.1. Encourage nutritional supplementation with protein to help the healing process. Today he denies fever. His appetite is good. He has been approved for EpiCord placental connective tissue graft, to be placed today. Progress of Wound: Improved. - Physical Exam Vital Signs Temp Pulse Resp BP 98.4 F 81 18 150/78 H 10/26/18 10:55 10/26/18 10:55 10/26/18 10:55 10/26/18 10:55 Wound Measurements and Assessment WC - Nurse 1 - General Ulcer Measurement Start: 10/26/18 10:55 Freq: Status: Active Protocol: Activity Type Activity Date Activity User E-Sign Co-Sign Detail Recorded Client Recorded Date Recorded By Document 10/26/18 10:55 MW [id number] 10/26/18 11:03 MW 10/26/18 10:55 Wound Center Nurse 1 [Ulcer Assessment] #26 L BKA post op incision -Combined with other wound No -Current Size (cm) - Length 0.2 -Current Size (cm) - Width 0.3 -Current Size (cm) - Depth 0.3 -Total Square Cm 0.06 -Photo Taken No -Epithelialization Small 1-33% -Tunneling No -Undermining/Tunneling No -Circular Undermining No -Exudate Amt None Present -Wound Margin Flat & Intact -Granulation Amt Small (1-33%) -Granulation Quality [facility] -Slough/Fibrin Yes -Necrosis Amt Small (1-33%) -Necrotic Tissue Type Adherent Slough -Structure Exposed N/A -Texture (Yael-wound Skin Appearance) Assessed, Localized Edema ,Scarring -Moisture (Yael-wound Skin Appearance Assessed,Dry/ ) Scaly -Color (Yael-wound Skin Appearance) No Abnormality, Assessed -Temperature (Yael-wound Skin No Abnormality Appearance) (Pt Warm) -Tenderness on Palpation (Yael-wound Yes Skin Appearance) -Ulcer Cleansing Rinsed/ Irrigated with Saline -Foul Odor after Cleansing No -Anesthetic Used 4% Lidocaine Solution [Edema Assessment] -Lower Limb Edema Present Yes -Left Calf (cm) 36.9 - Nurse 2 - General Ulcer CM Notes Start: 10/26/18 10:55 Freq: Status: Active Protocol: Activity Type Activity Date Activity User E-Sign Co-Sign Detail Recorded Client Recorded Date Recorded By Document 10/26/18 11:45 [id number] 10/26/18 11:48 10/26/18 11:45 Wound Center Nurse 2 [Procedure/Treatment] #26 L BKA post op incision -Time 11:46 -Correct Patient Yes -Correct Side, Site, Position Yes -Correct Procedure Yes -Procedure Performed Yes -Type of Procedure Debridement -Clinical Debridement Subcutaneous -Post Debridement Size (cm) - Length 0.3 -Post Debridement Size (cm) - Width 0.4 -Post Debridement Size (cm) - Depth 0.3 -Total Square Cm 0.12 -Wound/Ulcer Outcome Not Healed -Ulcer Cleansing Rinsed/ Irrigated with Saline -Foul Odor after Cleansing No -Bioengineered Tissue Yes -Type of bioengineered Tissue EPICORD -Expiration Date 06/18/23 -Product Lot Number [id number] -Percent Used 100 -Saline Lot Number [id number] -Bleeding Controlled with Pressure -Offloading No -Treatment Response Procedure Tolerated Well [See Physician Procedure note for Specifics] Pain Scale: 0-10 Numeric [Pain] -Is Patient Pain Free? Yes Debridement Note Post-Debridement Measurements/Treatment - Nurse 2 - General Ulcer CM Notes Start: 10/26/18 10:55 Freq: Status: Active Protocol: Activity Type Activity Date Activity User E-Sign Co-Sign Detail Recorded Client Recorded Date Recorded By Document 10/26/18 11:45 [id number] 10/26/18 11:48 10/26/18 11:45 Wound Center Nurse 2 #26 L BKA post op incision -Time 11:46 -Correct Patient Yes -Correct Side, Site, Position Yes -Correct Procedure Yes -Procedure Performed Yes -Type of Procedure Debridement -Clinical Debridement Subcutaneous -Post Debridement Size (cm) - Length 0.3 -Post Debridement Size (cm) - Width 0.4 -Post Debridement Size (cm) - Depth 0.3 -Total Square Cm 0.12 -Wound/Ulcer Outcome Not Healed -Ulcer Cleansing Rinsed/ Irrigated with Saline -Foul Odor after Cleansing No -Bioengineered Tissue Yes -Type of bioengineered Tissue EPICORD -Expiration Date 06/18/23 -Product Lot Number [id number] -Percent Used 100 -Saline Lot Number [id number] -Bleeding Controlled with Pressure -Offloading No -Treatment Response Procedure Tolerated Well Pain Scale: 0-10 Numeric Is Patient Pain Free? Yes Wound debrided: #26 Left BKA stump. Laterality: Left Wound Grade/Stage: 4. Type of Debridement: Excisional debridement Anesthesia Used: 4% Lidocaine Solution Depth: Down to and including healthy tissue, in the subcutaneous layer Percentage of wound debrided: 100 Instrument Used: 5mm curette Tissue Removed: subcutaneous tissue. Severity: Fat Layer Exposed Amount of bleeding with debridement: Mild Bleeding Controlled with: Pressure Patient tolerated procedure well, - - I placed application #1 of EpiCord today. Expiration date - 06/18/23. Lot Number - [id number]. Percent used - 100%. Saline Lot Number - [id number]. Assessment/Plan Assessment: 1. Nonhealing ulcer left BKA stump after a fall. 2. Infection of left BKA stump. 3. Osteomyelitis. 4. MRSA. 5. Diabetes mellitus. 6. Former smoker. 7. s/p surgical preparation left BKA stump with incision and drainage and excisional debridement nonhealing infected diabetic stump ulcer (5.25 cm2) and placement Amniofill placental connective tissue powder. Plan: The stump ulcer appears clean. Some granulation tissue seen at the edges. The ulcer is more superficial. We placed EpiCord placental connective tissue graft today, #1. Operative culture showed Corynebacterium minutissimum. His preop culture showed Staphylococcus epidermidis and Anaerobic cocci. He was p laced on Doxycycline and Flagyl and has finished them. Prealbumin from 06/23/18 was 29.1. Encourage nutritional supplementation with protein to help the healing process. His HgbA1c is 6.7. Followup one week for additional placement of EpiCord. He states he has a Prosthetics evaluation on 11/05/18.
[2018-11-02 10:47] VITALS: BP 159/82; PULSE 76; RESP 16; TEMP 36; BMI 40.6
--- NOTE | 2018-11-02 14:12 | PCM.WC.PN ---
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 Status: Chronic Code(s): E11.622 - Type 2 diabetes mellitus with other skin ulcer; L97.909 - Non-pressure chronic ulcer of unspecified part of unspecified lower leg with unspecified severity (3) Obesity (BMI 30-39.9) Status: Chronic Code(s): E66.9 - Obesity, unspecified (4) Personal history of Methicillin resistant Staphylococcus aureus infection Status: Chronic Code(s): Z86.14 - Personal history of Methicillin resistant Staphylococcus aureus infection (5) History of left below knee amputation Status: Chronic Code(s): Z89.512 - Acquired absence of left leg below knee Type of Wound Date of Service: 11/02/18 Chief Complaint: Nonhealing ulcer left BKA stump after a fall. History of Wound: Surgery 06/22/18 - Surgical preparation left BKA stump with incision and drainage and excisional debridement nonhealing infected diabetic stump ulcer (5.25 cm2) and placement Amniofill placental connective tissue powder. Wound care - Will leave Amnio fill in for another week. Will apply hydrogel to help moisten area and cover with adaptic. Operative culture - Corynebacterium minutissimum. Preop culture showed Staphylococcus epidermidis and Anaerobic cocci. He was placed on Doxycycline and Flagyl and has finished them. Prealbumin from 06/23/18 was 29.1. Encourage nutritional supplementation with protein to help the healing process. Today he denies fever. His appetite is good. Progress of Wound: Stable. - Physical Exam Vital Signs Temp Pulse Resp BP 96.8 F L 76 16 159/82 H 11/02/18 10:47 11/02/18 10:47 11/02/18 10:47 11/02/18 10:47 General: Alert, Oriented x3, Cooperative HEENT: Atraumatic Oral: Moist Mucosa Lungs: Normal air movement Cardiovascular: Regular rate Extremities: No edema, Capillary Refill Less than 3 Seconds Skin: Ulcer/ Wound - Left BKA stump ulcer Wound Measurements and Assessment WC - Nurse 1 - General Ulcer Measurement Start: 10/26/18 10:55 Freq: Status: Active Protocol: Activity Type Activity Date Activity User E-Sign Co-Sign Detail Recorded Client Recorded Date Recorded By Document 11/02/18 10:47 DL [id number] 11/02/18 10:48 DL 11/02/18 10:47 Wound Center Nurse 1 [Ulcer Assessment] #26 L BKA post op incision -Combined with other wound No -Ulcer Cleansing soap and water -Foul Odor after Cleansing No - Nurse 2 - General Ulcer CM Notes Start: 10/26/18 10:55 Freq: Status: Active Protocol: Activity Type Activity Date Activity User E-Sign Co-Sign Detail Recorded Client Recorded Date Recorded By Document 11/02/18 11:55 [id number] 11/02/18 11:57 11/02/18 11:55 Wound Center Nurse 2 [Procedure/Treatment] -Correct Patient No -Correct Side, Site, Position No -Correct Procedure No -Procedure Performed No -Wound/Ulcer Outcome Not Healed -Offloading Yes -Treatment Response Procedure Tolerated Well [See Physician Procedure note for Specifics] Pain Scale: 0-10 Numeric [Pain] -Is Patient Pain Free? Yes Musculoskeletal: No Tenderness to Palpation of Joints or Extremities Neurological: Neuro grossly intact Psych/Mental Status: Normal Affect, Appropriate Debridement Note Post-Debridement Measurements/Treatment WC - Nurse 2 - General Ulcer CM Notes Start: 10/26/18 10:55 Freq: Status: Active Protocol: Activity Type Activity Date Activity User E-Sign Co-Sign Detail Recorded Client Recorded Date Recorded By Document 10/26/18 11:45 [id number] 10/26/18 11:48 Document 11/02/18 11:55 [id number] 11/02/18 11:57 10/26/18 11/02/18 11:45 11:55 Wound Center Nurse 2 #26 L BKA post op incision -Time 11:46 -Correct Patient Yes No -Correct Side, Site, Position Yes No -Correct Procedure Yes No -Procedure Performed Yes No -Type of Procedure Debridement -Clinical Debridement Subcutaneous -Post Debridement Size (cm) - Length 0.3 -Post Debridement Size (cm) - Width 0.4 -Post Debridement Size (cm) - Depth 0.3 -Total Square Cm 0.12 -Wound/Ulcer Outcome Not Healed Not Healed -Ulcer Cleansing Rinsed/ Irrigated with Saline -Foul Odor after Cleansing No -Bioengineered Tissue Yes -Type of bioengineered Tissue EPICORD -Expiration Date 06/18/23 -Product Lot Number [id number] -Percent Used 100 -Saline Lot Number [id number] -Bleeding Controlled with Pressure -Offloading No Yes -Treatment Response Procedure Procedure Tolerated Well Tolerated Well Pain Scale: 0-10 Numeric Is Patient Pain Free? Yes Yes No debridement was completed today Assessment/Plan Assessment: 1. Nonhealing ulcer left BKA stump after a fall. 2. Infection of left BKA stump. 3. Osteomyelitis. 4. MRSA. 5. Diabetes mellitus. 6. Former smoker. 7. s/p surgical preparation left BKA stump with incision and drainage and excisional debridement nonhealing infected diabetic stump ulcer (5.25 cm2) and placement Amniofill placental connective tissue powder. Plan: The stump ulcer appears clean. Some granulation tissue seen at the edges. Amniofill is in the base. The ulcer is getting more superficial. Amniofill applied last week. Will leave in for another week. Will apply collagen hydrogel and cover with adaptic to help with moisture level. Operative culture showed Corynebacterium minutissimum. His preop culture showed Staphylococcus epidermidis and Anaerobic cocci. He was placed on Doxycycline and Flagyl and has finished them. Prealbumin from 06/23/18 was 29.1. Encourage nutritional supplementation with protein to help the healing process. His HgbA1c is 6.7. Before any attempts at wound closure in the future depending on the status of the ulcer, he may need a partial ostectomy of his tibial bone to evaluate for osteomyelitis. If we cannot eradicate the osteomyelitis in his tibial bone, he may ultimately need an AKA. Patient voices understanding and wants to pursue aggressive treatments in order to salvage the BKA stump. Followup one week. Code Visit Office Visits / Consults: [id number] OV L3 Est
[2018-11-09 08:13] VITALS: BP 134/77; PULSE 74; RESP 16; TEMP 37.1; BMI 40.6
--- NOTE | 2018-11-09 23:01 | PN.PCM_ITS ---
Type of Wound Date of Service: 11/09/18 Chief Complaint: Nonhealing ulcer left BKA stump after a fall. History of Wound: Surgery 06/22/18 - Surgical preparation left BKA stump with incision and drainage and excisional debridement nonhealing infected diabetic stump ulcer (5.25 cm2) and placement Amniofill placental connective tissue powder. Wound care - EpiCord #1. Operative culture - Corynebacterium minutissimum. Preop culture showed Staphylococcus epidermidis and Anaerobic cocci. He was placed on Doxycycline and Flagyl and has finished them. Prealbumin from 06/23/18 was 29.1. Encourage nutritional supplementation with protein to help the healing process. Today he denies fever. His appetite is good. He had placement EpiCord placental connective tissue graft #1 on 10/26/18. Progress of Wound: Healed. - Physical Exam Vital Signs Temp Pulse Resp BP 98.8 F 74 16 134/77 H 11/09/18 08:13 11/09/18 08:13 11/09/18 08:13 11/09/18 08:13 General: Alert, Oriented x3 HEENT: PERRLA, EOMI Oral: Moist Mucosa Neck: Supple Lungs: Clear to auscultation Cardiovascular: Regular rate, Regular Rhythm Abdomen: Soft, Non-Distended Skin: Ulcer/ Wound - Left BKA stump ulcer has healed. Wound Measurements and Assessment WC - Nurse 1 - General Ulcer Measurement Start: 10/26/18 10:55 Freq: Status: Active Protocol: Activity Type Activity Date Activity User E-Sign Co-Sign Detail Recorded Client Recorded Date Recorded By Document 11/09/18 08:13 [id number] 11/09/18 08:26 11/09/18 08:13 Wound Center Nurse 1 [Ulcer Assessment] #26 L BKA post op incision -Combined with other wound No -Photo Taken No -Epithelialization None Present -Tunneling No -Undermining/Tunneling No -Circular Undermining No -Classification - Thickness Partial Thickness -Exudate Amt None Present -Wound Margin Distinct, Outline Attached -Necrosis Amt Medium (34-66%) -Necrotic Tissue Type Eschar -Structure Exposed None/Limited to Skin Breakdown -Texture (Yael-wound Skin Appearance) No Abnormality, Assessed -Moisture (Yael-wound Skin Appearance Assessed,Dry/ ) Scaly -Color (Yael-wound Skin Appearance) Assessed, Erythema -Temperature (Yael-wound Skin No Abnormality Appearance) (Pt Warm) -Tenderness on Palpation (Yael-wound No Skin Appearance) -Ulcer Cleansing soap & water - Nurse 2 - General Ulcer CM Notes Start: 10/26/18 10:55 Freq: Status: Active Protocol: Activity Type Activity Date Activity User E-Sign Co-Sign Detail Recorded Client Recorded Date Recorded By Document 11/09/18 09:00 [id number] 11/09/18 09:01 11/09/18 09:00 Wound Center Nurse 2 [Procedure/Treatment] -Correct Patient No -Correct Side, Site, Position No -Correct Procedure No -Procedure Performed No -Post Debridement Size (cm) - Length 0 -Post Debridement Size (cm) - Width 0 -Post Debridement Size (cm) - Depth 0 -Total Square Cm 0 -Wound/Ulcer Outcome Healed- Epithelialized [See Physician Procedure note for Specifics] Pain Scale: 0-10 Numeric [Pain] -Is Patient Pain Free? Yes Neurological: Cranial nerves II-XII grossly intact Psych/Mental Status: Normal Affect, Appropriate Debridement Note Post-Debridement Measurements/Treatment - Nurse 2 - General Ulcer CM Notes Start: 10/26/18 10:55 Freq: Status: Active Protocol: Activity Type Activity Date Activity User E-Sign Co-Sign Detail Recorded Client Recorded Date Recorded By Document 10/26/18 11:45 [id number] 10/26/18 11:48 Document 11/02/18 11:55 [id number] 11/02/18 11:57 Document 11/09/18 09:00 [id number] 11/09/18 09:01 10/26/18 11/02/18 11/09/18 11:45 11:55 09:00 Wound Center Nurse 2 #26 L BKA post op incision -Time 11:46 -Correct Patient Yes No No -Correct Side, Site, Position Yes No No -Correct Procedure Yes No No -Procedure Performed Yes No No -Type of Procedure Debridement -Clinical Debridement Subcutaneous -Post Debridement Size (cm) - Length 0.3 0 -Post Debridement Size (cm) - Width 0.4 0 -Post Debridement Size (cm) - Depth 0.3 0 -Total Square Cm 0.12 0 -Wound/Ulcer Outcome Not Healed Not Healed Healed- Epithelialized -Ulcer Cleansing Rinsed/ Irrigated with Saline -Foul Odor after Cleansing No -Bioengineered Tissue Yes -Type of bioengineered Tissue EPICORD -Expiration Date 06/18/23 -Product Lot Number [id number] -Percent Used 100 -Saline Lot Number [id number] -Bleeding Controlled with Pressure -Offloading No Yes -Treatment Response Procedure Procedure Tolerated Well Tolerated Well Pain Scale: 0-10 Numeric Is Patient Pain Free? Yes Yes Yes Wound debrided: #26 Left BKA stump. Laterality: Left Wound Grade/Stage: 4. No debridement was completed today - the ulcer has healed. Assessment/Plan Assessment: 1. Ulcer left BKA stump after a fall, healed. 2. Infection of left BKA stump. 3. Osteomyelitis. 4. MRSA. 5. Diabetes mellitus. 6. Former smoker. 7. s/p surgical preparation left BKA stump with incision and drainage and excisional debridement nonhealing infected diabetic stump ulcer (5.25 cm2) and placement Amniofill placental connective tissue powder. Plan: The stump ulcer has healed. There is no need for placement of another EpiCord placental connective tissue graft at this time. He only had one application of the Epicord. Operative culture from 07/05 showed Cor ynebacterium minutissimum. His preop culture showed Staphylococcus epidermidis and Anaerobic cocci. He was placed on Doxycycline and Flagyl and has finished them. Prealbumin from 06/23/18 was 29.1. Encourage nutritional supplementation with protein to help the healing process. His HgbA1c is 6.7. He will continue his Prosthetics evaluation. Followup 2 weeks to make sure the ulcer remains healed. It takes time for the healed scar to strengthen and toughen.
== END 2018-11-16 23:59 ==
LOC: WC 08:00
PROVIDERS: Family Provider Family Medicine; PCP Family Medicine; Visit Provider Surgery
DX: T87.81 Dehiscence of amputation stump (principal); E11.622 Type 2 diabetes mellitus with other skin ulcer; L97.822 Non-pressure chronic ulcer of other part of left lower leg with fat layer exposed; Y83.8 Other surgical procedures as the cause of abnormal reaction of the patient, or of later complication, without mention of misadventure at the time of the procedure; Z86.14 Personal history of Methicillin resistant Staphylococcus aureus infection; T87.44 Infection of amputation stump, left lower extremity; Z87.891 Personal history of nicotine dependence
CPT/HCPCS: 15271; 99213; Q4187; G0463

== ENCOUNTER 2018-11-23 08:23 | Outpatient (RCR) | payer MEDICARE, SELFPAY ==
[2018-11-17 00:35] VITALS: BP 134/77; PULSE 74; RESP 16; TEMP 37.1
[2018-11-23 09:21] VITALS: BP 145/83; PULSE 102; RESP 18; BMI 40.6
--- NOTE | 2018-11-23 23:05 | PCM.WC.PN ---
Type of Wound Date of Service: 11/23/18 Chief Complaint: Healed ulcer left BKA stump after a fall. History of Wound: Surgery 06/22/18 - Surgical preparation left BKA stump with incision and drainage and excisional debridement nonhealing infected diabetic stump ulcer (5.25 cm2) and placement Amniofill placental connective tissue powder. Wound care - EpiCord #1. Operative culture - Corynebacterium minutissimum. Preop culture showed Staphylococcus epidermidis and Anaerobic cocci. He was placed on Doxycycline and Flagyl and has finished them. Prealbumin from 06/23/18 was 29.1. Encourage nutritional supplementation with protein to help the healing process. Today he denies fever. His appetite is good. He had placement EpiCord placental connective tissue graft #1 on 10/26/18. He was healed at his last visit. Progress of Wound: Remains healed. - Physical Exam Vital Signs Temp Pulse Resp BP 98.8 F 102 H 18 145/83 H 11/17/18 00:35 11/23/18 09:21 11/23/18 09:21 11/23/18 09:21 General: Alert, Oriented x3 HEENT: PERRLA, EOMI Oral: Moist Mucosa Neck: Supple Lungs: Clear to auscultation Cardiovascular: Regular rate, Regular Rhythm Abdomen: Soft, Non-Distended Skin: Ulcer/ Wound - right BKA ulcer remains healed. Wound Measurements and Assessment WC - Nurse 2 - General Ulcer CM Notes Start: 11/23/18 09:21 Freq: Status: Active Protocol: Activity Type Activity Date Activity User E-Sign Co-Sign Detail Recorded Client Recorded Date Recorded By Document 11/23/18 09:49 [id number] 11/23/18 09:51 11/23/18 09:49 Pain Scale: 0-10 Numeric [Pain] -Is Patient Pain Free? Yes Neurological: Cranial nerves II-XII grossly intact Psych/Mental Status: Normal Affect, Appropriate Debridement Note Post-Debridement Measurements/Treatment WC - Nurse 2 - General Ulcer CM Notes Start: 11/23/18 09:21 Freq: Status: Active Protocol: Activity Type Activity Date Activity User E-Sign Co-Sign Detail Recorded Client Recorded Date Recorded By Document 11/23/18 09:49 [email or web address] [id number] 11/23/18 09:51 11/23/18 09:49 Pain Scale: 0-10 Numeric Is Patient Pain Free? Yes Assessment/Plan Assessment: 1. Ulcer left BKA stump after a fall, healed. 2. Infection of left BKA stump. 3. Osteomyelitis. 4. MRSA. 5. Diabetes mellitus. 6. Former smoker. 7. s/p surgical preparation left BKA stump with incision and drainage and excisional debridement nonhealing infected diabetic stump ulcer (5.25 cm2) and placement Amniofill placental connective tissue powder. Plan: The stump ulcer remains healed. There is no need for placement of another EpiCord placental connective tissue graft at this time. He only had one application of the Epicord. Operative culture from 07/05 showed Corynebacterium minutissimum. His preop culture showed Staphylococcus epidermidis and Anaerobic cocci. He was placed on Doxycycline and Flagyl and has finished them. Prealbumin from 06/23/18 was 29.1. Encourage nutritional supplementation with protein to help the healing process. His HgbA1c is 6.7. He will continue his Prosthetics evaluation. Followup on an as needed basis. The healed scar continues to toughen and strengthen.
== END 2018-12-17 23:59 ==
LOC: WC 08:23
PROVIDERS: Family Provider Family Medicine; PCP Family Medicine; Visit Provider Surgery
DX: Z09 Encounter for follow-up examination after completed treatment for conditions other than malignant neoplasm (principal); Z87.891 Personal history of nicotine dependence; E11.9 Type 2 diabetes mellitus without complications; Z86.14 Personal history of Methicillin resistant Staphylococcus aureus infection
CPT/HCPCS: 99212; G0463

== ENCOUNTER 2019-02-12 10:00 | Outpatient (RCR) | payer MEDICARE, SELFPAY ==
--- NOTE | 2019-01-20 15:22 | HP.PTEVAL ---
Patient's Visit Information BASIL MARRERO is a 63 year old M referred to Physical Therapy by Lucho Rodriguez MD with a diagnosis of Left BKA. Date of Evaluation: 01/20/19 Physical Therapist: Freya Ovalle DPT - Visit Plan Frequency: 2x /Week Duration: 6 Weeks Plan: Focus on LE and core strength/stabilization, gait pattern, balance and endurance. - Subjective Findings: Patient has a history of osteomyelitis in bilateral LE. He has a partial foot amputation and wears a noodle on the right LE. He has a below knee amputation on the left LE. His left leg was amputated [address] Rodriguez. He has had wound problems and has only has his prosthesis for approx 2 weeks. He was wearing it an hour at a time as per [facility] recommendations and when they took it off he had a part of his incision open. He was told me [place] to stop wearing it until the wound had closed and they put in extra padding in the area. He reports no falls at home but did have some in the hospital. 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 He is able to stand pivot transfer- his primary mode of transportation is w/c, power [employer] and standard walker. He reports pain on/off when it comes its a 7/10 and it comes and goes quickly- happens approx 1 x a week. Nothing aggravates the pain. Goals are to get moving more and be more indep. He is also here for shouler pain. PMHx/Meds: in chart - Objective Posture: Fh, RS- guards his right UE- can correct posture but does not maintain. Transfers sit to stand:supervsion, Stand-pivot: supervision. Ambulation: step to gait pattern with FWW- CGA x 1 with w/c follow- decreased knee extension on the left LE. SLS: WS but unable to SLS without UE A. ROM: WFL in all planes in LE. Strength: 5/5 in all planes of bilateral LE - Goals Goal 1:: Patient will be I with HEP and progression Goal Time Frame: 4-6 Weeks Goal 2:: Patient will SLS for 5 seconds without loss of balance Goal Time Frame: 4-6 Weeks Goal 3:: Patient will ambualte >500 feet with LRD and a normalized gait pattern Goal Time Frame: 4-6 Weeks - Rehabilitation Potential Physical Therapy Diagnosis: Patient presents with hypomobility- he has decreased endurance and balance leading to abnormal gait pattern. Rehabilitation Potential: Fair - Anticipated Interventions Patient/Client Instruction: Educate patient on: Benefits of Fitness Program Therapeutic Exercise to Include: Strength training, Endurance training, Balance training, Coordination, Agility training, Body mechanics, Postural training, Flexibilty training, Gait and locomotor training, Passive ROM, Active ROM, Dynamic Lumbar Stabilization, Scapular Strength/Stabilization For the Purpose of:: To improve muscle performance and motor function Thank you for the opportunity to evaluate your patient. For Medicare and Medicare HMO plans, please review the plan of care and approve it. It will need to be FAXED BACK to us at [phone] for Medicare purposes. For Medicare only, by signing this I certify the plan of care. Please let me know if there are questions or concerns regarding this plan of care. Physician Signature: Date:
--- NOTE | 2019-01-21 10:27 | HP.PTEVAL2_ITS ---
Patient's Visit Information BASIL MARRERO is a 63 year old M referred to Physical Therapy by Lucho Rodriguez MD with a diagnosis of Adhesive Capsulitis. Date of Evaluation: 01/20/19 Physical Therapist: Freya Ovalle DPT - Visit Plan Frequency: 1x/Week Duration: 4 Weeks Plan: Focus on ROM - Subjective Findings: Right shoulder pain-has been bothering him for 40 years. This episode of pain started 2 months- reached down pulled a T out on his w/c and felt a pop. The pain has now not stopped- pain is located in the anterior shoulder and radiates to the wrist and into the cervical spine. Sleep is disturbed- unable to lay on either side. Worst: 10 Agg: moving- lifting his arm, resistance pulling, can?t hold a coffee cup. Best: 10 Eases: stop moving- bring in towards his side. Reports always dull and achy- sharp when he moves it a lot. Went to see pain mgmt sent him for cortisone injection which did nothing. Sent to Dr. Castillo who took an x-ray and told him he had frozen shoulder and come to PT. There is a knot in the shoulders that are really tender. Had full mobility of his shoulder until the injury. Has not had an MRI of the shoulder. Does have N/T in hands- neuropathy. Right hand dominate. Places his right side towards where he is transferring. - Objective Objective: Posture: Fh, RS, increased kyphosis- guards right UE. Palpation: tender along bicipital groove, upper trap from the occiput to the tip of the acromion and down the deltoid. ROM: Active: flexion: 20 degrees, Abd: 30 degrees, IR: to greater troch ER: neutral. PROM: flexion: 95 degrees, Abd: 100 degrees, IR: 30 degrees ER: 20 degrees- empty end feel. Strength: isometric at neutral: 4+/5 with pain - Goals Goal 1:: Patient will be I with HEP and progression Goal Time Frame: 4-6 Weeks Goal 2:: Patient will demo 20 degrees of increased AROM of the right shoulder in all planes Goal Time Frame: 4-6 Weeks Goal 3:: Patient will report 2/10 pain in the right shoulder Goal Time Frame: 4-6 Weeks - Rehabilitation Potential Physical Therapy Diagnosis: Patient presents with hypomobility- he has decreased ROM, strength and muscular endurance leading to increased pain with ADL's. Rehabilitation Potential: Fair - Anticipated Interventions Patient/Client Instruction: Educate patient on: Benefits of Fitness Program Therapeutic Exercise to Include: Strength training, Body mechanics, Postural training, Flexibilty training, Passive ROM, Active ROM, Scapular Strength/Stabilization For the Purpose of:: To improve muscle performance and motor function TENS: Yes Cryotherapy (ice pack, ice massage): Yes Thermo therapy (hot pack): Yes Ultrasound (thermal/non thermal): Yes Thank you for the opportunity to evaluate your patient. For Medicare and Medicare HMO plans, please review the plan of care and approve it. It will need to be FAXED BACK to us at [phone] for Medicare purposes. For Medicare only, by signing this I certify the plan of care. Please let me know if there are questions or concerns regarding this plan of care. Physician Signature: Date:
== END 2019-02-12 19:00 | disposition home or self-care (01) ==
LOC: PT 10:00
PROVIDERS: Family Provider Family Medicine; PCP Family Medicine; Referring Provider Surgery; Visit Provider Surgery
DX: M75.01 Adhesive capsulitis of right shoulder (principal); Z89.512 Acquired absence of left leg below knee
CPT/HCPCS: 97110; 97162

== ENCOUNTER 2019-04-19 19:49 | Observation (INO) | payer MEDICARE, SELFPAY ==
[2019-04-19 19:49] VITALS: BP 144/77; PULSE 81; RESP 18; TEMP 36.8; O2SAT 96; BMI 41.2
[2019-04-19 19:56] LABS: Bedside Glucose 393 mg/dL (70-110)
--- NOTE | 2019-04-19 20:42 | EKG12_ITS ---
Test Reason : DYSRHYTHMIA Blood Pressure : / mmHG Vent. Rate : 080 BPM Atrial Rate : 080 BPM P-R Int : 168 ms QRS Dur : 090 ms QT Int : 372 ms P-R-T Axes : 050 -36 073 degrees QTc Int : 429 ms Normal sinus rhythm Left axis deviation Abnormal ECG Confirmed by ANITA MADSEN, NATALY ([id number]), supervising editor news reel HIRA SIFUENTES ([id number]) on 04/21/2019 1:35:17 PM Referred By: ARTUR Confirmed By:NATALY HOWARD MD
--- NOTE | 2019-04-19 20:42 | CT_ITS ---
STUDY: CT BRAIN WITHOUT CONTRAST REASON FOR EXAM: Male, 63 years old. HYPERGLYCEMIA, SLURRED SPEECH, N/T TO RT SIDE OF FACE RADIATION DOSAGE (If Supplied By Facility): CTDIvol = ( 44.99 ) mGy, DLP = ( 796.11 ) mGycm TECHNIQUE: Transaxial CT imaging of the brain was performed without administration of intravenous contrast material. Individualized dose optimization techniques were used for this CT. COMPARISON: 2017 CT head FINDINGS: Normal soft tissue structures. Normal calvarium. There is mild cerebral atrophy with widening of the extra-axial spaces and ventricular dilatation. Normal white matter tracts of the cerebral hemispheres. Normal basal ganglia and thalami. Normal brainstem. There is mild cerebellar atrophy. There is no intracranial hemorrhage. There are no findings of an acute ischemic infarction. Normal visualized paranasal sinuses. There is visualized partial calcification of the right greater than left cavernous carotid arteries. CT/Brain/Head without Contrast IMPRESSION: Atrophy no evidence of acute hemorrhage infarct or edema. Electronically Signed: Margarita Soliz MD at 21:32 EST Tel , Service support ,
[2019-04-19 20:46] VITALS: BP 158/51; PULSE 80; RESP 14; O2SAT 97
--- NOTE | 2019-04-19 20:54 | RAD_ITS ---
STUDY: X-RAY CHEST REASON FOR EXAM: Male, 63 years old. WEAKNESS TECHNIQUE: Single AP portable view of the chest. COMPARISON: 06/09/2017 FINDINGS: The lungs are clear and expanded. There is no demonstrated pleural abnormality. Normal size heart. Normal mediastinum and valencia. Normal visualized pulmonary arteries. Normal visualized aortic arch and descending thoracic aorta. Normal visualized thoracic spine. Normal visualized ribs, clavicles, and shoulders. There is no demonstrated abnormality of the visualized soft tissue structures of the upper abdomen. RAD/Chest 1 View (Portable) IMPRESSION: Normal x-ray examination of the chest. Electronically Signed: Eliud Parish MD at 21:43 EST Tel , Service support ,
[2019-04-19 21:01] LABS: Bacteria 0 SEEN /hpf (None Seen); Mucous, Urine 0 SEEN /hpf (<or=2+); Red Blood Cells-Urine 0 SEEN /hpf (0-5); Squamous Epithelial Cells - UA 0 SEEN /hpf (0-5); White Blood Cells 0 SEEN /hpf (0-5)
[2019-04-19 21:05] LABS: Absolute Lymphocyte Count 1.51 X10^3/uL (0.83-4.51); Basophil# 0.04 X10^3/uL; Basophil% 0.8 % (0-1); Eosinophil# 0.24 X10^3/uL; Eosinophils% 4.6 % (0-5); Hematocrit 37.9 % (40-54); Hemoglobin 12.8 g/dL (13.0-16.5); Lymphocyte # 1.51 X10^3/ul (4.0); Lymphocyte % 28.8 % (19-41); Mean Corp Hgb Conc 33.8 g/dL (32-36); Mean Corpuscular Hgb 30.7 pg (27.0-32.0); Mean Corpuscular Volume 90.9 fL (80-94); Mean Platelet Vol. 9.3 fl (6.2-12.0); Monocyte# 0.46 X10^3/uL; Monocyte% 8.8 % (0-10); NRBC Flagged by Analyzer 0 % (0-5); Neutrophil # 2.99 X10^3/uL (2.7-7.7); Neutrophil % 56.8 % (47-70); Platelet Count 280 K/mm3 (150-450); RBC Distribution Width CV 12.6 % (11.6-14.6); RBC Distribution Width SD 41.6 fl (35.1-43.9); Red Blood Count 4.17 M/mm3 (4.6-6.2); White Blood Count 5.3 K/mm3 (4.4-11.0)
[2019-04-19 21:14] LABS: Color, Urine Yellow (Yellow); Glucose, Dipstick 1000 mg/dl (Normal); Ketone-Dipstick 5 mg/dl (Negative); Leukocyte Esterase-Dipstick Negative /ul (Negative); Nitrite-Dipstick Negative (Negative); Occult Blood-Urine Negative /ul (Negative); Protein-Dipstick 30 mg/dl (Negative); Urine Bilirubin Dipstick Negative (Negative); Urine Clarity Clear (Clear); Urine Urobilinogen Normal (Normal)
--- NOTE | 2019-04-19 21:20 | ED.VIS.GEN ---
History of Present Illness Chief Complaint: Hyperglycemia Informant: Patient Onset: Today Context: Sudden Onset Current Severity: Mild Maximum Severity: Moderate Narrative: The patient is a 63-year-old male with multiple comorbidities that presents to the emergency department with change in mental status. Patient states that he recently was started on trazodone. He states that it was making him too sleepy so he stopped this. This was 2 days ago. Today, his daughter got a call because the patient was very hard to awaken. He does live with friends. She states that he just seemed much more lethargic. He became much more alert and was complaining of some numbness of his right face. He also had difficulty speaking. That is since resolved. He also had a mild headache. He states over the past 2 days, he has had myalgias and arthralgias. He has had a scant cough but has not had fever or chills. He denies any urinary symptoms. He recently stopped his metformin at the direction of his physician. Prior similar symptoms: No Recent Illness/Hospitalization: No Past Medical History - Allergies and Home Meds Allergies/Adverse Reactions: Allergies cefepime Allergy (Verified 04/19/19 19:55) Hives sulfamethoxazole [From Octra] Allergy (Verified 04/19/19 19:55) turned red trimethoprim [From Octra] Allergy (Verified 04/19/19 19:55) turned red lisinopril Adverse Reaction (Verified 04/19/19 19:55) cough Primary Care Physician: Orion Cordova [Primary Care Provider] - Prior records reviewed: Yes Past Medical History: - - Diabetes, hypertension, hyperlipidemia, sleep apnea Surgical History: - - Debridement left foot ulcer with versajet including necrotic muscle and widespread debridement plantar foot and incision and drainage left foot 01/24/17, Bone biopsy calcaneal cuboid bone left foot and excisional debridement left plantar foot ulceration 10/18/16, Right foot trans metatarsal amputation 03/04/16, Partial 4th toe amputation right foot at PIP joint 12/09/15, Excisional debridement including fascia left great toe 04/03/15, Right hallux amputation at MTP joint 12/29/14, microdiscectomy ?2, deviated septal repair, ulnar nerve repair, cholecystectomy, L BKA 06/24/17, now 10/28/17 Surgical preparation left BKA stump with excision dehiscence amputation stump ulcer and partial ostectomy tibia for osteomyelitis. 2. Reconstruction with re-advancement muscle flap and bipedicle periosteal advancement flap and secondary wound closure revision. Smoking Status: Former smoker - Family History Maternal Family History: Reports: Cancer, Heart Disease Paternal Family History: Reports: Heart Disease Review of Systems General: Reports: Chills. Denies: Fever, Sweats Eyes: Denies: Visual changes - bilaterally, Diplopia ENT: Denies: Rhinorrhea, Sore throat Cardiovascular: Denies: Chest pain, Palpitations Respiratory: Denies: Dyspnea, Cough, Dyspnea on exertion Gastrointestinal: Reports: Nausea. Denies: Abdominal pain, Vomiting, Diarrhea, Melena, Hematochezia Genitourinary: Denies: Dysuria, Hematuria, Frequency Musculoskeletal: Reports: Myalgias, Arthralgias. Denies: Back pain, Extremity Pain Skin: Denies: Rash, Wounds Neurological: Reports: Headache. Denies: Weakness, Numbness Physical Exam Vital Signs/Narrative: Vital Signs Temp Pulse Resp BP Pulse Ox 04/19/19 20:46 80 14 158/51 H 97 04/19/19 19:49 98.3 F 81 18 144/77 H 96 Inital Vital Signs reviewed: Yes General: Well nourished, Well developed, No Acute Distress Head: Normocephalic, Atraumatic Eyes: Perrl, EOMI ENT: Moist mucous membranes, No rhinorrhea Neck: Supple, Nontender Cardiovascular: Regular rate, Regular rhythm, No murmurs Respiratory: No distress, CTA bilaterally, Chest nontender Abdomen: Soft, Nontender, Nondistended, Normal bowel sounds Back: Nontender, Normal Inspection Extremities: Nontender, No edema Skin: Normal color, No rash Neurological: Alert, Oriented x3, Cranial nerves II-XII grossly intact, Normal Strength, Normal Sensation Psychological: Normal affect, Normal Mood Diagnostic/Tx/Re-eval Clinical Impression(s) from Imaging Studies Brain CT 04/19/19 20:42 IMPRESSION: Atrophy no evidence of acute hemorrhage infarct or edema. Electronically Signed: Margarita Soliz MD at 21:32 EST Tel , Service support , Chest X-Ray 04/19/19 20:54 IMPRESSION: Normal x-ray examination of the chest. Electronically Signed: Eliud Parish MD at 21:43 EST Tel , Service support , Abnormal Lab Results 04/19/19 04/19/19 04/19/19 19:52 20:50 20:50 WBC 5.3 RBC 4.17 L Hgb 12.8 L Hct 37.9 L MCV 90.9 MCH 30.7 MCHC 33.8 RDW Std Deviation 41.6 RDW Coeff of Gloria 12.6 Plt Count 280 MPV 9.3 Immature Gran % (Auto) 0.200 Neut % (Auto) 56.8 Lymph % (Auto) 28.8 [place] % (Auto) 8.8 Eos % (Auto) 4.6 Baso % (Auto) 0.8 Absolute Neuts (auto) 3.0 Absolute Lymphs (auto) 1.51 Nucleated RBC % 0 Sodium 132 L Potassium 4.4 Chloride 99 Carbon Dioxide 27.0 Anion Gap 6 BUN 19 H Creatinine 1.26 Estim Creat Clear Calc 72.65 Est GFR (MDRD) Af Amer 74 Est GFR (MDRD) Non-Af 62 BUN/Creatinine Ratio 15.1 Glucose 373 H Lactic Acid Calcium 8.4 L Total Bilirubin 0.50 AST 26 ALT 34 Alkaline Phosphatase 177 H Troponin I < 0.015 Total Protein 6.8 Albumin 3.5 Globulin 3.3 Albumin/Globulin Ratio 1.1 Urine Color Urine Clarity Urine pH Ur Specific [place] Urine Protein Urine Glucose (UA) Urine Ketones Urine Occult Blood Urine Nitrite Urine Bilirubin Urine Urobilinogen Ur Leukocyte Esterase Urine RBC Urine WBC Ur Squamous Epith Cells Urine Bacteria Urine Mucus POC Glucose 393 H 04/19/19 04/19/19 04/19/19 20:50 20:50 21:38 WBC RBC Hgb Hct MCV MCH MCHC RDW Std Deviation RDW Coeff of Gloria Plt Count MPV Immature Gran % (Auto) Neut % (Auto) Lymph % (Auto) [place] % (Auto) Eos % (Auto) Baso % (Auto) Absolute Neuts (auto) Absolute Lymphs (auto) Nucleated RBC % Sodium Potassium Chloride Carbon Dioxide Anion Gap BUN Creatinine Estim Creat Clear Calc Est GFR (MDRD) Af Amer Est GFR (MDRD) Non-Af BUN/Creatinine Ratio Glucose Lactic Acid 2.0 Calcium Total Bilirubin AST ALT Alkaline Phosphatase Troponin I Total Protein Albumin Globulin Albumin/Globulin Ratio Urine Color Yellow Urine Clarity Clear Urine pH 6.0 Ur Specific [place] 1.010 Urine Protein 30 H Urine Glucose (UA) 1000 H Urine Ketones 5 H Urine Occult Blood Negative Urine Nitrite Negative Urine Bilirubin Negative Urine Urobilinogen Normal Ur Leukocyte Esterase Negative Urine RBC 0 SEEN Urine WBC 0 SEEN Ur Squamous Epith Cells 0 SEEN Urine Bacteria 0 SEEN Urine Mucus 0 SEEN POC Glucose 312 H - Rhythm Strip Rhythm Strip: Sinus Rhythm Rate: 90 Ectopy: None - EKG Initial EKG Interpretation: Sinus Rhythm, No Acute Injury Pattern Prior: Unchanged - Medical Decision Making The patient presents with change in mental status, difficulty speaking, and facial numbness. By the time he arrived here, his symptoms have totally resolved. He has an NIH of 0. The patient has had prior [id number] amputation of his left leg. He is also had toe removal on his right leg. There is no evidence of acute infectious process. Metabolic work-up was pursued. CT of the head shows chronic change without acute abnormality. Chest x-ray was unremarkable. Influenza testing was negative, which was done because of his myalgias. Screening labs are relatively unremarkable except for hyperglycemia. With the patient symptoms, I do feel that he would benefit from observation for TIA work-up. The patient was discussed with the hospitalist. Impression 1. TIA ED Disposition - Plan for ED Patient: Referrals: Orion Cordova [Primary Care Provider] -
[2019-04-19 21:26] LABS: ALB/GLOB Ratio 1.1 RATIO (0.9-2.4); AST(SGOT) 26 U/L (15-37); Alanine Aminotransfer ALT/SGPT 34 U/L (16-61); Albumin, Serum 3.5 g/dL (3.2-5.0); Alkaline Phosphatase 177 U/L (45-117); Anion Gap 6 (5-15); BUN 19 mg/dL (7-18); BUN/Creat Ratio 15.1 RATIO (10-20); Calcium,Total 8.4 mg/dL (8.5-10.1); Chloride 99 mmol/L (98-107); Creatinine, Serum 1.26 mg/dL (0.70-1.30); EST Glomerular Filtration Rate 62 mL/min (>60); Est Glom Filt Rate - Afr Amer 74 mL/min (>60); Estimated Creatinine Clearance 72.65 ml/min; Globulin 3.3 g/dL (2.2-4.2); Glucose 373 mg/dL (74-106); Potassium 4.4 mmol/L (3.5-5.1); Protein, Total 6.8 g/dL (6.4-8.2); Sodium Level 132 mmol/L (136-145)
[2019-04-19 21:46] VITALS: BP 148/65; PULSE 83; RESP 14; O2SAT 96
[2019-04-19 21:56] LABS: Bedside Glucose 312 mg/dL (70-110)
--- NOTE | 2019-04-19 22:08 | HP.PCM_ITS ---
Problem List (1) Stroke-like symptoms Status: Acute (2) Obesity (BMI 30-39.9) Status: Chronic (3) PAOD (peripheral arterial occlusive disease) Status: Chronic (4) MRSA (methicillin resistant Staphylococcus aureus) infection Status: Chronic (5) Osteomyelitis Status: Chronic (6) Personal history of Methicillin resistant Staphylococcus aureus infection Status: Chronic (7) History of left below knee amputation Status: Chronic (8) Chronic ulcer of left foot with necrosis of bone Status: Chronic (9) Obstructive sleep apnea Status: Chronic (10) Hyperlipidemia Status: Chronic Qualifiers: (11) Chronic pain Status: Chronic Qualifiers: Chronic pain type: chronic pain syndrome Qualified Code(s): G89.4 - Chronic pain syndrome (12) Diabetes mellitus Status: Chronic (13) Venous insufficiency Status: Chronic (14) Hypertension Status: Chronic Qualifiers: (15) Osteomyelitis Status: Chronic (16) Hypersomnia Status: Chronic (17) Ulcer of midfoot with necrosis of muscle Status: Chronic Qualifiers: (18) Nocturnal hypoxemia Status: Chronic (19) Diabetic ulcer of left foot with fat layer exposed Status: Chronic (20) Non-pressure chronic ulcer of left heel and midfoot with fat layer exposed Status: Chronic (21) 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 (23) Venous insufficiency of both lower extremities Status: Chronic (24) S/P transmetatarsal amputation of foot Status: Chronic Qualifiers: Laterality: right Qualified Code(s): Z89.431 - Acquired absence of right foot Comment: 03/04/[address] Yanes (25) Gait instability Status: Chronic (26) Charcot's joint of left foot Status: Chronic (27) Vitamin D deficiency Status: Chronic (28) Peripheral vascular disease Status: Chronic (29) Charcot's joint, right ankle and foot Status: Chronic (30) Varicose veins of left lower extremity with ulcer of calf Status: Chronic (31) Hypertension Status: Chronic (32) Amputation of right foot with complication Status: Chronic (33) Type 2 diabetes mellitus with diabetic polyneuropathy Status: Chronic Qualifiers: Diabetes mellitus adjunct faculty for medical terminology insulin use: with adjunct faculty for medical terminology use Qualified Code(s): E11.42 - Type 2 diabetes mellitus with diabetic polyneuropathy; Z79.4 - detention (current) use of insulin (34) Stasis dermatitis of both legs Status: Chronic (35) Sleep apnea Status: Chronic Qualifiers: Comment: CPAP 15 cm H20, 100% compliant (36) Neuropathy Status: Chronic Comment: secondary to diabetes (37) Morbid obesity Status: Chronic (38) Anemia Status: Chronic Qualifiers: (39) Dyslipidemia Status: Chronic (40) Left ventricular hypertrophy Status: Chronic (41) Chronic pain syndrome Status: Chronic (42) Depression Status: Chronic Qualifiers: History of Present Illness Date of Admission: 04/19/19 Chief Complaint: slurred speech The patient is a 63 year old M with a significant history of diabetes mellitus with nephropathy; left below the knee amputation; and amputation of toes of right feet who presents at emergency department with slurred speech. Associated for symptoms is severe lethargy. Reportedly patient could not be woken up. Also he reported a swelling feeling of the right side of his face. At the Emergency department patient's slurry speech had resolved. However he still felt like the right side of his face was swollen; although he feels like the swelling has gone down. Reported at home his blood glucose was in the 400s. Past Medical History Past Medical History (Chronic Problems): Chronic Problems (Last Reviewed 04/19/19 @ 23:[address] 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) Obstructive sleep apnea (Chronic) Hyperlipidemia (Chronic) Chronic pain (Chronic) Diabetes mellitus (Chronic) Venous insufficiency (Chronic) Hypertension (Chronic) Osteomyelitis (Chronic) Hypersomnia (Chronic) Ulcer of midfoot with necrosis of muscle (Chronic) Nocturnal hypoxemia (Chronic) Diabetic ulcer of left foot with fat layer exposed (Chronic) Non-pressure chronic ulcer of left heel and midfoot with fat layer exposed (Chronic) 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 Venous insufficiency of both lower extremities (Chronic) S/P transmetatarsal amputation of foot (Chronic) 03/04/[address] 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) Hypertension (Chronic) Amputation of right foot with complication (Chronic) Type 2 diabetes mellitus with diabetic polyneuropathy (Chronic) Stasis dermatitis of both legs (Chronic) Sleep apnea (Chronic) CPAP 15 cm H20, 100% compliant Neuropathy (Chronic) secondary to diabetes Morbid obesity (Chronic) Anemia (Chronic) Dyslipidemia (Chronic) Left ventricular hypertrophy (Chronic) Chronic pain syndrome (Chronic) Depression (Chronic) Medical History: Medical History (Last Reviewed 04/19/19 @ 23:[address] Joe Block MD) Fracture of left foot (Resolved) S92.902A Non-pressure chronic ulcer of other part of right foot with fat layer exposed (Resolved) L97.512 Toe osteomyelitis, right (Resolved) M86.9 Ulcer of right lower extremity with fat layer exposed (Resolved) L97.912 Allergies cefepime Allergy (Verified 04/19/19 19:55) Hives sulfamethoxazole [From Octra] Allergy (Verified 04/19/19 19:55) turned red trimethoprim [From Octra] Allergy (Verified 04/19/19 19:55) turned red lisinopril Adverse Reaction (Verified 04/19/19 19:55) cough Home Medications: Ambulatory Orders Medication Instructions Recorded Losartan Potassium [Cozaar] 100 mg PO DAILY 06/05/16 Triamterene/Hydrochlorothiazid 1 each PO DAILY 03/24/17 [Triamterene-Hctz 37.5-25 mg Cp] Gabapentin [Neurontin] 800 mg PO 4X/DAY 08/18/17 Insulin NPH Human Isophane 52 unit SQ BID 08/18/17 [Novolin N] Insulin Lispro [Humalog KwikPen] 30 unit SC TIDCM 10/31/17 Atorvastatin Calcium [Lipitor] 40 mg PO QHS #30 tab 12/12/17 Fluoxetine [Prozac] 60 mg PO DAILY #90 capsule 12/12/17 Pantoprazole Sodium 40 mg PO DAILY #30 tablet. 12/22/17 Naproxen 500 mg PO BID 04/19/19 Oxycodone HCl/Acetaminophen 1 ea PO TID 04/19/19 [Oxycodone-Acetaminophen 10-325] Surgical History: - - Debridement left foot ulcer with versajet including necrotic muscle and widespread debridement plantar foot and incision and drainage left foot 01/24/17, Bone biopsy calcaneal cuboid bone left foot and excisional debridement left plantar foot ulceration 10/18/16, Right foot trans metatarsal amputation 03/04/16, Partial 4th toe amputation right foot at PIP joint 12/09/15, Excisional debridement including fascia left great toe 04/03/15, Right hallux amputation at MTP joint 12/29/14, microdiscectomy ?2, deviated septal repair, ulnar nerve repair, cholecystectomy, L BKA 06/24/17, now 10/28/17 Surgical preparation left BKA stump with excision dehiscence amputation stump ulcer and partial ostectomy tibia for osteomyelitis. 2. Reconstruction with re-advancement muscle flap and bipedicle periosteal advancement flap and secondary wound closure revision. Psychiatric History: Anxiety, Depression Smoking Status: Former smoker Alcohol: None - *Family History Maternal History Items: Cancer, Heart Disease, - - Melanoma Paternal History Items: Cancer - throat and bladder cancer, Diabetes, Heart Disease Review of Systems Constitutional: Reports: Fatigue. Denies: Chills, Fever, Weight Change HEENT: Reports: Head Aches. Denies: Sinus Congestion, Sinus Drainage Cardiovascular: Denies: Chest Pain, Palpitations Respiratory: Denies: Cough, Shortness of breath at rest, Sputum production Gastrointestinal: Denies: Abdominal Pain, Nausea, Vomiting Genitourinary: Denies: Dysuria Musculoskeletal: Denies: Joint Pain, Joint Tenderness Skin: Denies: Rash, Wounds Neurological: Reports: Slurred speech, Focal weakness - Chronic to right arm., Headaches, Numbness. Denies: Tingling Psychiatric: Denies: Anxiety, Depression, Homicidal Ideations, Suicidal Ideations Hematologic/ Lymphatic: Denies: Easy Bruising, Easy Bleeding VTE Information - Inpt Only VTE Present on Admission: No VTE Mechan Device Prophylaxis: None VTE Pharm Prophylaxis ordered?: Yes Patient Problems: Active and Suspected Problems (Last Reviewed 03/02/20 @ 23:[address] Joe Block MD) Stroke-like symptoms (Acute) - Physical Exam Vitals/I&O's: Vital Signs Temp Pulse Resp BP Pulse Ox 98.3 F 83 14 148/65 H 96 04/19/19 19:49 04/19/19 21:46 04/19/19 21:46 04/19/19 21:46 04/19/19 21:46 Oxygen Delivery Method Room Air Weight: 149.685 kg Body Mass Index (BMI) 41.2 Finger Stick Blood Glucose 312 General: Alert, Oriented x3, Cooperative HEENT: Atraumatic, PERRLA, EOMI, Normocephalic Neck: Supple, Trachea Midline Lungs: Clear to auscultation, Normal air movement, No rhonchi, No wheeze, No ra les Cardiovascular: Regular rate, Normal S1, Normal S2, No murmurs Abdomen: Bowel Sounds Present, Soft, Non Tender Extremities: No edema, Capillary Refill Less than 3 Seconds, - - Stump of left leg below the knee. Stump of right foot. Skin: No rashes, No breakdown, - - Erythema of right leg Musculoskeletal: No Tenderness to Palpation of Joints or Extremities Neurological: Cranial nerves II-XII grossly intact, Deep Tendon Reflexes 2+/4 and Symmetrical, Coordination normal, - - Motor strength of right arm 3/5 (patient attributed to chronic shoulder pain). Strength of left 5 out of 5. Sensation changes to right side of face Psych/Mental Status: Normal Affect, Appropriate Microbiology Past 72 Hours 04/19/19 21:00 Mucosa - Nose Influenza Types A,B Direct FA (THIAGO) - Final Laboratory Results 04/19/19 19:52: POC Glucose 393 H 04/19/19 20:50: WBC 5.3, RBC 4.17 L, Hgb 12.8 L, Hct 37.9 L, MCV 90.9, MCH 30.7, MCHC 33.8, RDW Std Deviation 41.6, RDW Coeff of Gloria 12.6, Plt Count 280, MPV 9.3, Immature Gran % (Auto) 0.200, Neut % (Auto) 56.8, Lymph % (Auto) 28.8, [place] % (Auto) 8.8, Eos % (Auto) 4.6, Baso % (Auto) 0.8, Absolute Neuts (auto) 3.0, Absolute Lymphs (auto) 1.51, Nucleated RBC % 0 04/19/19 20:50: Sodium 132 L, Potassium 4.4, Chloride 99, Carbon Dioxide 27.0, Anion Gap 6, BUN 19 H, Creatinine 1.26, Estim Creat Clear Calc 72.65, Est GFR (MDRD) Af Amer 74, Est GFR (MDRD) Non-Af 62, BUN/Creatinine Ratio 15.1, Glucose 373 H, Calcium 8.4 L, Total Bilirubin 0.50, AST 26, ALT 34, Alkaline Phosphatase 177 H, Troponin I < 0.015, Total Protein 6.8, Albumin 3.5, Globulin 3.3, Albumin/Globulin Ratio 1.1 04/19/19 20:50: Lactic Acid 2.0 04/19/19 20:50: Urine Color Yellow, Urine Clarity Clear, Urine pH 6.0, Ur Specific [place] 1.010, Urine Protein 30 H, Urine Glucose (UA) 1000 H, Urine Ketones 5 H, Urine Occult Blood Negative, Urine Nitrite Negative, Urine Bilirubin Negative, Urine Urobilinogen Normal, Ur Leukocyte Esterase Negative, Urine RBC 0 SEEN, Urine WBC 0 SEEN, Ur Squamous Epith Cells 0 SEEN, Urine Bacteria 0 SEEN, Urine Mucus 0 SEEN 04/19/19 21:38: POC Glucose 312 H Assessment/Plan All Active Problems (Last Reviewed 04/19/19 @ 23:[address] Joe Block MD) Stroke-like symptoms (Acute) Cellulitis (Resolved) Cellulitis and abscess of toe of left foot (Resolved) Cellulitis of great toe, left (Resolved) Cellulitis of leg (Resolved) Cellulitis of right foot (Resolved) Deep venous thrombosis (Resolved) Diabetic toe ulcer (Resolved) Fracture of left foot (Resolved) Hammer toe of right foot (Resolved) Healed ulcer of left foot on examination (Resolved) Lymphangitis (Resolved) Non-pressure chronic ulcer of other part of right foot with fat layer exposed (Resolved) Right foot infection (Resolved) Sepsis (Resolved) Skin ulcer of left great toe with fat layer exposed (Resolved) Toe osteomyelitis, right (Resolved) Ulcer of right leg (Resolved) Ulcer of right lower extremity with fat layer exposed (Resolved) Ulcer of right lower extremity with fat layer exposed (Resolved) Ulcer of right second toe with fat layer exposed (Resolved) Ulcer of toe of right foot (Resolved) Ulcer with necrosis of muscle (Resolved) Wound of left leg (Resolved) Wound of right leg (Resolved) The patient is a 63 year old M with a significant history of diabetes mellitus with nephropathy; left below the knee amputation; and amputation of toes of ri ght feet who presents emergency department with slurred speech; lethargy; headache and a feeling of swelling on the right side of his face consistent with strokelike symptoms. Strokelike symptoms Impression of brain CT: Atrophy no evidence of acute hemorrhagic infarct or edema. -Lipid level a.m. and A1c ordered Physical therapy, occupational therapy and speech therapy to work with patient. N.p.o. until bedside swallow eval. Daily aspirin. High intensity statin Permissive hypertension. Control blood pressure with labetalol for systolic blood pressure of more than 220 or diastolic blood pressure of more than 120. -Permissive HTN for 24 hrs, mcfp goal BP < 120/80 mmHg and goal Hba1c < 7% MRI of brain ordered. CT a of head and neck ordered. Echocardiogram ordered. Initial troponin was negative. Diabetes mellitus with hyperglycemia and neuropathy Continue home NPH and prandial short acting insulin. Short acting insulin x1. Add correction scale insulin. Hypertension On presentation blood pressure was not within goal. However because of permissive hypertension will hold home blood pressure medication. Labetalol as needed as above. Trend blood pressures. Neuropathy Gabapentin continued Chronic pain Oxycodone continued. Naproxen continued GERD Protonix continued. DVT prophylaxis Subcutaneous Lovenox. Code Visit OBSV E&M: 64064 Initial observation care L3
--- NOTE | 2019-04-19 23:02 | CT_ITS ---
STUDY: CTA HEAD AND NECK WITH CONTRAST REASON FOR EXAM: Male, 63 years old. TIA, HYPERGLYCEMIA, LETHARGIC, LUTZ, NUMBNESS TO RIGHT FACE, JUST STOPPED TAKING METFORMIN RADIATION DOSAGE (If Supplied By Facility): CTDIvol = ( 22.96 ) mGy, DLP = ( 839.41 ) mGycm TECHNIQUE: CT angiography was performed with a multi-detector CT scanner. Data acquisition was obtained from the skull base through the vertex following intravenous administration of IV 100mL Isovue-370. MIP images were reconstructed from the axial data set. Post-processing of the angiographic images was performed, with multiplanar reformation and 3D reconstruction. Individualized dose optimization techniques were used for this CT. COMPARISON: CT head April 19, 2019 FINDINGS: Normal bilateral petrous carotid arteries. There is calcified plaque formation of the right cavernous carotid artery, without a cross-sectional luminal stenosis. There is calcified plaque formation of the left cavernous carotid artery, without a cross-sectional luminal stenosis. Normal right A1 segments of the anterior cerebral artery. Normal left A1 segments of the anterior cerebral artery. Normal intact anterior communicating artery (ACOM). Normal bilateral A2 segments of the anterior cerebral arteries. Normal right M1 and M2 segments of the middle cerebral arteries, with a normal M1 bifurcation. Normal left M1 and M2 segments of the middle cerebral arteries, with a normal M1 bifurcation. There is a persistent origin of the right posterior cerebral artery with absence of the posterior communicating artery (PCOM). Normal left posterior communicating artery (PCOM). Normal bilateral vertebral arteries. Normal basilar artery with a normal basilar bifurcation. The visualized bilateral superior cerebellar (SCA) arteries are normal. Normal bilateral P1, P2 and visualized P3 segments of the posterior cerebral arteries. There is no demonstrated aneurysm of the [place] of [place]. There is no demonstrated abnormality of the visualized brain. AORTIC ARCH: Ureter is partially calcified. Normal origins of the brachiocephalic, left common carotid, and left subclavian arteries. RIGHT CAROTID ARTERIES: There is atherosclerotic tortuous elongation of the right common carotid artery. There is mild atherosclerotic plaque formation with minimal narrowing of the right carotid bulb. Normal origin of the right internal carotid (ICA) artery without a hemodynamically significant stenosis. Normal visualized cervical portion of the right internal carotid artery. Normal origin of the right external carotid artery (ECA). LEFT CAROTID ARTERIES: There is atherosclerotic tortuous elongation of the left common carotid artery. There is mild atherosclerotic plaque formation with minimal narrowing of the left carotid bulb. There is mild atherosclerotic plaque formation of the origin of the left internal carotid artery with less than 50% cross sectional diameter stenosis. There is atherosclerotic tortuous elongation of the cervical portion of the left internal carotid artery. Normal origin of the left external carotid artery (ECA). VERTEBRAL ARTERIES: Normal bilateral vertebral arteries. There is visualized multilevel degenerative change in the cervical spine with multilevel disc space narrowing and at least mild neural foraminal narrowing. CT/CTA Head AND Neck W/ Contrast IMPRESSION: No significant stenosis. Trace calcification of the left side takeoff of the internal carotid artery less than 50% stenosis of the left internal carotid artery. No significant stenosis right internal carotid artery. No evidence of significant stenosis of the cerebral vessels or aneurysmal dilatation. Electronically Signed: Margarita Soliz MD at 0:56 EST Tel , Service support ,
--- NOTE | 2019-04-19 23:02 | ECHOCS_ITS ---
Reason For Study: TIA/CVA Procedure This was a 2D Doppler, Color Flow transthoracic echocardiogram. The study was technically difficult. Contrast injection was performed. Exam performed portable in patient room. Left Ventricle Normal LV size. Left ventricular systolic function is normal. The estimated ejection fraction is 60 %. Diastolic function is indeterminate. No regional wall motion abnormalities noted. Right Ventricle Normal RV size. Normal systolic function. Atria The left atrium is mildly enlarged. Normal right atrium. No doppler evidence for ASD. Bubble contrast study negative for right to left interatrial shunt. Mitral Valve There is moderate mitral annular calcification. Extension of the mitral annular calcification onto the posterior mitral valve leaflet. Trivial mitral valve insufficiency. Tricuspid Valve Normal tricuspid valve. Trivial tricuspid valve insufficiency. Unable to estimate RV systolic pressure/pulmonary artery pressure due to technically difficult study. Aortic Valve Trisinus/trileaflet aortic valve. Moderate focal aortic valve calcification. Pulmonic Valve The pulmonic valve is not well visualized. Great Vessels Normal sized aortic root. Pericardium/Pleural No pericardial effusion. Medication Diluted definity 3ml given slow IV push to enhance endocardial definition. Performed a rapid injection of agitated mix of 9 cc saline and 1cc air to assess for atrial septal defect. MMode/2D Measurements & Calculations LVIDd: 4.2 cm IVSd: 1.6 cm Ao root diam: 3.6 cm LVIDs: 2.5 cm LVPWd: 1.3 cm LA dimension: 3.9 cm FS: 40.4 % LAV(MOD-bp): 62.1 ml LA A4 area: 21.1 cm2 RA A4 area: 12.3 cm2 LAV(MOD-bp) Indexed: 23.0 ml/m2 LAV(MOD-sp2): 62.8 ml LAV(MOD-sp4): 60.4 ml Time Measurements MV dec time: 0.28 sec Doppler Measurements & Calculations MV E max carter: 102.0 cm/sec Lat Peak E' Carter: 6.1 cm/sec Med Peak E' Carter: 5.9 cm/sec MV A max carter: 124.2 cm/sec E/E' lat: 16.8 E/E' med: 17.2 MV E/A: 0.82 MV V2 max: 145.4 cm/sec MV P1/2t max carter: 133.9 cm/sec Ao V2 max: 156.0 cm/sec MV max P.5 mmHg MV P1/2t: 88.1 msec Ao max P.7 mmHg MV V2 mean: 78.7 cm/sec MV dec slope: 445.1 cm/sec2 MV mean P.0 mmHg MV V2 VTI: 47.0 cm MVA(P1/2t): 2.5 cm2 LV V1 max: 127.1 cm/sec PA V2 max: 156.0 cm/sec LV V1 max P.5 mmHg Interpretation Summary The study was technically difficult. Contrast injection was performed. Left ventricular systolic function is normal. The estimated ejection fraction is 60 %. The left atrium is mildly enlarged. There is moderate mitral annular calcification. Extension of the mitral annular calcification onto the posterior mitral valve leaflet. Trivial mitral valve insufficiency. Trivial tricuspid valve insufficiency. Moderate focal aortic valve calcification. Unable to estimate RV systolic pressure/pulmonary artery pressure due to technically difficult study. Diastolic function is indeterminate. Bubble contrast study negative for right to left interatrial shunt. Ordering Physician: Joe Block Referring Physician: Orion Cordova Performed By: Rodriguez Nelson RCS
[2019-04-19 23:04] VITALS: PULSE 84
[2019-04-19 23:06] VITALS: BP 170/64; PULSE 81; RESP 18; TEMP 36.7; O2SAT 95; BMI 40.8
[2019-04-19 23:26] LABS: Bedside Glucose 262 mg/dL (70-110)
[2019-04-19] MEDS: oxyCODONE 5 MG Tablet PO (23:45)
[2019-04-19] MEDS: Insulin Lispro 100 UNIT/ML INSULN.PEN SC (23:45)
[2019-04-19 23:55] VITALS: BP 146/71; PULSE 87; RESP 18; TEMP 36.8; O2SAT 96
[2019-04-20 00:01] VITALS: BMI 40.8
[2019-04-20] MEDS: Insulin NPH Human 100 UNITS/ML PEN 52 UNITS SC ×2 (00:14→09:05)
[2019-04-20 01:08] LABS: Reflex Lactate? Y
[2019-04-20 02:25] LABS: Lactic Acid 2.3 mmol/L (0.4-1.9)
[2019-04-20 02:38] LABS: Anion Gap 5 (5-15); BUN 18 mg/dL (7-18); BUN/Creat Ratio 15.4 RATIO (10-20); Calcium,Total 8.6 mg/dL (8.5-10.1); Chloride 101 mmol/L (98-107); Cholesterol 121 mg/dL (200); Creatinine, Serum 1.17 mg/dL (0.70-1.30); EST Glomerular Filtration Rate 67 mL/min (>60); Est Glom Filt Rate - Afr Amer 81 mL/min (>60); Estimated Creatinine Clearance 78.24 ml/min; Glucose 244 mg/dL (74-106); High Density Lipoprotein 26 mg/dL; Sodium Level 134 mmol/L (136-145); Triglycerides 486 mg/dL
[2019-04-20 03:14] VITALS: PULSE 73
[2019-04-20 03:45] VITALS: BP 141/74; PULSE 74; RESP 18; TEMP 36.8; O2SAT 100
[2019-04-20 04:30] VITALS: BMI 40.8
[2019-04-20 05:52] VITALS: BP 142/67; PULSE 77; RESP 18; TEMP 36.8; O2SAT 98
[2019-04-20] MEDS: oxyCODONE 5 MG Tablet PO (05:54)
[2019-04-20 06:58] LABS: Absolute Lymphocyte Count 1.72 X10^3/uL (0.83-4.51); Absolute Neutrophil Count 2.7 X10^3/uL (2.0-7.7); Basophil# 0.04 X10^3/uL; Basophil% 0.8 % (0-1); Eosinophil# 0.31 X10^3/uL; Eosinophils% 5.9 % (0-5); Hematocrit 36.1 % (40-54); Hemoglobin 12.1 g/dL (13.0-16.5); Lymphocyte # 1.72 X10^3/ul (4.0); Lymphocyte % 32.9 % (19-41); Mean Corp Hgb Conc 33.5 g/dL (32-36); Mean Corpuscular Hgb 30.7 pg (27.0-32.0); Mean Corpuscular Volume 91.6 fL (80-94); Mean Platelet Vol. 9.2 fl (6.2-12.0); Monocyte# 0.45 X10^3/uL; Monocyte% 8.6 % (0-10); NRBC Flagged by Analyzer 0 % (0-5); Neutrophil # 2.68 X10^3/uL (2.7-7.7); Neutrophil % 51.2 % (47-70); Platelet Count 232 K/mm3 (150-450); RBC Distribution Width CV 12.8 % (11.6-14.6); Red Blood Count 3.94 M/mm3 (4.6-6.2); White Blood Count 5.2 K/mm3 (4.4-11.0)
[2019-04-20 07:00] VITALS: PULSE 72
[2019-04-20 07:45] VITALS: O2SAT 98
--- NOTE | 2019-04-20 08:30 | MRI_ITS ---
STUDY: MRI BRAIN WITHOUT CONTRAST REASON FOR EXAM: Male, 63 years old. Limited scan d/t claustrophobiaPt refused to continue -- Episode yesterday of slurred speech, H/A, N/T right face TECHNIQUE: Standardized multiplanar fat and water weighted pulse sequences were obtained. COMPARISON: CT 04/19/2019 FINDINGS: Normal size of the ventricles and extra-axial spaces for the patient''s age. Normal white matter tracts of the supratentorial brain. There is no evidence for recent intracranial ischemia or other cause of cytotoxic edema on diffusion weighted imaging (DWI). Normal bilateral basal ganglia. Normal thalami. There is no extra-axial fluid accumulation. Normal flow voids within the major intracranial circulation suggesting patency by spin echo criteria. Normal sella turcica, pituitary gland, infundibular stalk, optic chiasm and hypothalamus. Normal tectal plate and pineal gland. Normal midbrain, khanh and medulla. Normal cerebellum. Normal basal cisterns. Normal bilateral temporal bones. Normal bilateral internal auditory canals. No demonstrated orbital abnormality, within the constraints of a routine brain study. Normal visualized paranasal sinuses. Normal calvarium and skull base. Normal visualized soft tissue structures. Normal visualized upper cervical spine. MRI/Brain without Contrast IMPRESSION: Normal unenhanced MRI of the brain. Electronically Signed: Eliud Parish MD at 10:40 EST Tel , Service support ,
[2019-04-20 08:31] LABS: Bedside Glucose 190 mg/dL (70-110)
[2019-04-20] MEDS: Insulin Lispro 100 UNIT/ML INSULN.PEN SC (09:05)
[2019-04-20] MEDS: Aspirin 81 MG TAB.CHEW PO (09:06)
[2019-04-20] MEDS: Gabapentin 800 MG Tablet PO (09:06)
[2019-04-20] MEDS: Naproxen 500 MG Tablet PO (09:06)
[2019-04-20] MEDS: Insulin Lispro 100 UNIT/ML INSULN.PEN 30 UNIT SC (09:06)
[2019-04-20] MEDS: Pantoprazole Sodium 40 MG Tablet PO (09:07)
[2019-04-20] MEDS: FLUoxetine 20 MG Capsule 60 MG PO (09:07)
[2019-04-20] MEDS: Enoxaparin 40 MG/0.4 ML Syringe SC (09:07)
[2019-04-20 09:23] VITALS: BP 144/80; PULSE 76; RESP 14; TEMP 36.7; O2SAT 97
[2019-04-20 09:46] LABS: Hemoglobin A1c 9.2 % (4.2-6.3)
[2019-04-20 11:35] LABS: Bedside Glucose 226 mg/dL (70-110)
[2019-04-20] MEDS: Ondansetron 4 MG/2 ML Vial IV (11:36)
[2019-04-20] MEDS: 0.9% Saline Lock 10 ML Syringe IV (11:36)
--- NOTE | 2019-04-20 12:01 | DCINST_ITS ---
- Discharge Diagnoses Current Active Problems: Current Active and Chronic Problems (Last Reviewed 04/19/19 @ 23:[address] Joe Block MD) Stroke-like symptoms (Acute) You will use the following diet at home:: Calorie/Carbohydrate Controlled (specify 1200, 1400, etc) - 1800 Your food should be the consistency of: Regular Your liquids should be the consistency of: Regular/Thin Discharge Activity: Return to Normal Activity Call your doctor if you observe: - - slurred speech. unilateral weakness. Allergies/Adverse Reactions: Allergies cefepime Allergy (Verified 04/19/19 19:55) Hives sulfamethoxazole [From Octra] Allergy (Verified 04/19/19 19:55) turned red trimethoprim [From Octra] Allergy (Verified 04/19/19 19:55) turned red lisinopril Adverse Reaction (Verified 04/19/19 19:55) cough Medications to take at Discharge Losartan Potassium [Cozaar] 100 mg PO DAILY 06/05/16 Triamterene/Hydrochlorothiazid [Triamterene-Hctz 37.5-25 mg Cp] 1 each PO DAILY 03/24/17 Gabapentin [Neurontin] 800 mg PO 4X/DAY 08/18/17 Insulin NPH Human Isophane [Novolin N] 52 unit SQ BID 08/18/17 Insulin Lispro [Humalog KwikPen] 30 unit SC TIDCM 10/31/17 Atorvastatin Calcium [Lipitor] 40 mg PO QHS #30 tab 12/12/17 Fluoxetine [Prozac] 60 mg PO DAILY #90 capsule 12/12/17 Pantoprazole Sodium 40 mg PO DAILY #30 tablet. 12/22/17 Naproxen 500 mg PO BID 04/19/19 Oxycodone HCl/Acetaminophen [Oxycodone-Acetaminophen 10-325] 1 ea PO TID 04/19/19 Primary Care Physician: Orion Cordova [Primary Care Provider] - Within 2 Weeks Test Results: Test results from this visit will be discussed in further detail at your follow- up appointment, if applicable. Please Follow Up With: Oziel Kent MD - Pulmonary for sleep study When: 1-2 months Proposed Discharge Date: 04/20/19
--- NOTE | 2019-04-20 12:04 | PCM.DC.SUM ---
Discharge Date and Diagnosis - Problem List Patient Problems: Active and Suspected Problems (Last Reviewed 04/19/19 @ 23:[address] Joe Block MD) Stroke-like symptoms (Acute) Date of Admission: 04/19/19 Date of Discharge: 04/20/19 - Primary Discharge Diagnosis Active and Suspected Problems (Last Reviewed 04/19/19 @ 23:[address] Joe Block MD) change in mental status - Secondary Discharge Diagnosis Chronic Problems (Last Reviewed 04/19/19 @ 23:[address] 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) Obstructive sleep apnea (Chronic) Hyperlipidemia (Chronic) Chronic pain (Chronic) Diabetes mellitus (Chronic) Venous insufficiency (Chronic) Hypertension (Chronic) Osteomyelitis (Chronic) Hypersomnia (Chronic) Ulcer of midfoot with necrosis of muscle (Chronic) Nocturnal hypoxemia (Chronic) Diabetic ulcer of left foot with fat layer exposed (Chronic) Non-pressure chronic ulcer of left heel and midfoot with fat layer exposed (Chronic) 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 Venous insufficiency of both lower extremities (Chronic) S/P transmetatarsal amputation of foot (Chronic) 03/04/[address] 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) Hypertension (Chronic) Amputation of right foot with complication (Chronic) Type 2 diabetes mellitus with diabetic polyneuropathy (Chronic) Stasis dermatitis of both legs (Chronic) Sleep apnea (Chronic) CPAP 15 cm H20, 100% compliant Neuropathy (Chronic) secondary to diabetes Morbid obesity (Chronic) Anemia (Chronic) Dyslipidemia (Chronic) Left ventricular hypertrophy (Chronic) Chronic pain syndrome (Chronic) Depression (Chronic) Hospital Course and Treatment Imaging Results: 04/20/19 08:30 Brain without Contrast [MRI] Routine Clinical Impression(s) from Imaging Studies Brain CT 04/19/19 20:42 IMPRESSION: Atrophy no evidence of acute hemorrhage infarct or edema. Electronically Signed: Margarita Soliz MD at 21:32 EST Tel , Service support , Chest X-Ray 04/19/19 20:54 IMPRESSION: Normal x-ray examination of the chest. Electronically Signed: Eliud Parish MD at 21:43 EST Tel , Service support , Head/Neck CTA 04/19/19 23:02 IMPRESSION: No significant stenosis. Trace calcification of the left side takeoff of the internal carotid artery less than 50% stenosis of the left internal carotid artery. No significant stenosis right internal carotid artery. No evidence of significant stenosis of the cerebral vessels or aneurysmal dilatation. Electronically Signed: Margarita Soliz MD at 0:56 EST Tel , Service support , Brain MRI 04/20/19 08:30 IMPRESSION: Normal unenhanced MRI of the brain. Electronically Signed: Eliud Parish MD at 10:40 EST Tel , Service support , Operations: None, - Procedures: None Summary of Care Provided: The patient is a 63 year old M presents with grogginess and slurred speech. Patient initially had some sensation of swelling on the right side of his face. Concern was for stroke so patient underwent a stroke work-up. Patient underwent an MRI that was unremarkable. CTA of his head and neck showed no significant stenosis. Less than 50% stenosis of the left internal carotid. When patient presented, he was diaphoretic and his blood sugar was 400. Patient states that normally his blood sugar is well controlled. Is my feeling, after discussing with the patient that his grogginess and slurred speech was likely multifactorial, due to poor sleep hygiene: Patient states that he sleeps maybe 1 to 2 hours per night and the quality of that sleep may be very poor as patient has obstructive sleep apnea but is not currently on a CPAP given a history of dermatitis that he had with a CPAP mask. And a complicating that is the fact that he is taking gabapentin as well as Percocet. Advised patient if he is feeling groggy to not take his Percocet nor gabapentin. Patient states that he takes his Percocet when he starts having withdrawal symptoms. I told him to work with his pain management doctor up in [place] in regards to potential being weaned off of that. I did advise patient to follow-up with pulmonology to get reestablished with a CPAP. Patient's last use of CPAP was over a year ago so he may need to have a repeat sleep study and titration. Patient does have a dermatitis which is been ongoing even though he has not used a CPAP mask in over a year. States that he uses an antibiotic ointment that seems to alleviate his dermatitis. I recommend patient hold off on the use Aquaphor instead. If he still has ongoing issues that he can follow-up with dermatology. I do not feel his symptoms are attributable to his hyperglycemia as he is a type II diabetic. I do not recommend changing any of his insulin at this time given the state that he has fairly well-controlled blood sugars at home. Most recent A1c, according to the patient, was 7.2. Patient follow-up with his primary care physician to see if further modifications may be necessary. [] Patient Problems: Active and Suspected Problems (Last Reviewed 04/19/19 @ 23:[address] Joe Block MD) Stroke-like symptoms (Acute) - Physical Exam Vitals/I&O's: Vital Signs Temp Pulse Resp BP Pulse Ox 36.7 C 76 14 144/80 H 97 04/20/19 09:23 04/20/19 09:23 04/20/19 09:23 04/20/19 09:23 04/20/19 09:23 Oxygen Flow Rate (L/min) 2 Oxygen Delivery Method Room Air Weight: 148 kg Body Mass Index (BMI) 40.8 Finger Stick Blood Glucose 312 Intake and Output for Last 24 Hours 04/18/19 04/19/19 04/20/19 23:59 23:59 23:59 Intake Total 500 / 500 690 / 690 Output Total 1300 / 1300 Balance 500 / 500 -610 / -610 General: Alert, No apparent distress HEENT: Atraumatic, EOMI, Normocephalic Oral: Moist Mucosa, No Gingival or Mucosal Lesions/ Ulcerations Neck: No Nodes, Trachea Midline Lungs: Clear to auscultation, Normal air movement, No rhonchi, No wheeze, No rales Cardiovascular: Regular rate, Regular Rhythm, Normal S1, Normal S2, No murmurs Abdomen: Bowel Sounds Present, Soft, Non Tender, Non-Distended Extremities: No edema, No Calf Tenderness Neurological: Cranial nerves II-XII grossly intact, Deep Tendon Reflexes 2+/4 and Symmetrical Psych/Mental Status: Normal Affect, Appropriate Microbiology Past 72 Hours 04/19/19 21:00 Mucosa - Nose Influenza Types A,B Direct FA ([place]) - Final Laboratory Results 04/19/19 19:52: POC Glucose 393 H 04/19/19 20:50: WBC 5.3, RBC 4.17 L, Hgb 12.8 L, Hct 37.9 L, MCV 90.9, MCH 30.7, MCHC 33.8, RDW Std Deviation 41.6, RDW Coeff of Gloria 12.6, Plt Count 280, MPV 9.3, Immature Gran % (Auto) 0.200, Neut % (Auto) 56.8, Lymph % (Auto) 28.8, [place] % (Auto) 8.8, Eos % (Auto) 4.6, Baso % (Auto) 0.8, Absolute Neuts (auto) 3.0, Absolute Lymphs (auto) 1.51, Nucleated RBC % 0 04/19/19 20:50: Sodium 132 L, Potassium 4.4, Chloride 99, Carbon Dioxide 27.0, Anion Gap 6, BUN 19 H, Creatinine 1.26, Estim Creat Clear Calc 72.65, Est GFR (MDRD) Af Amer 74, Est GFR (MDRD) Non-Af 62, BUN/Creatinine Ratio 15.1, Glucose 373 H, Calcium 8.4 L, Total Bilirubin 0.50, AST 26, ALT 34, Alkaline Phosphatase 177 H, Troponin I < 0.015, Total Protein 6.8, Albumin 3.5, Globulin 3.3, Albumin/Globulin Ratio 1.1 03/02/20 20:50: Lactic Acid 2.0 04/19/19 20:50: Urine Color Yellow, Urine Clarity Clear, Urine pH 6.0, Ur Specific [place] 1.010, Urine Protein 30 H, Urine Glucose (UA) 1000 H, Urine Ketones 5 H, Urine Occult Blood Negative, Urine Nitrite Negative, Urine Bilirubin Negative, Urine Urobilinogen Normal, Ur Leukocyte Esterase Negative, Urine RBC 0 SEEN, Urine WBC 0 SEEN, Ur Squamous Epith Cells 0 SEEN, Urine Bacteria 0 SEEN, Urine Mucus 0 SEEN 04/19/19 21:38: POC Glucose 312 H 04/19/19 23:15: POC Glucose 262 H 04/20/19 01:46: Sodium 134 L, Potassium 4.0, Chloride 101, Carbon Dioxide 28.0, Anion Gap 5, BUN 18, Creatinine 1.17, Estim Creat Clear Calc 78.24, Est GFR (MDRD) Af Amer 81, Est GFR (MDRD) Non-Af 67, BUN/Creatinine Ratio 15.4, Glucose 244 H, Calcium 8.6, Triglycerides 486 H, Cholesterol 121, LDL Cholesterol TNP, VLDL Cholesterol TNP, HDL Cholesterol 26 L 04/20/19 01:46: Lactic Acid 2.3 H* 04/20/19 06:40: WBC 5.2, RBC 3.94 L, Hgb 12.1 L, Hct 36.1 L, MCV 91.6, MCH 30.7, MCHC 33.5, RDW Std Deviation 42.0, RDW Coeff of Gloria 12.8, Plt Count 232, MPV 9.2, Immature Gran % (Auto) 0.600, Neut % (Auto) 51.2, Lymph % (Auto) 32.9, [place] % (Auto) 8.6, Eos % (Auto) 5.9 H, Baso % (Auto) 0.8, Absolute Neuts (auto) 2.7, Absolute Lymphs (auto) 1.72, Nucleated RBC % 0 04/20/19 06:40: Hemoglobin A1c 9.2 H 04/20/19 08:25: POC Glucose 190 H 04/20/19 11:31: POC Glucose 226 H Current Medications Aspirin (Aspirin, Baby) 81 mg PO DAILY@0800 SWATI Last Admin: 04/20/19 09:06 Dose: 81 mg Documented by: Atorvastatin Calcium (Lipitor) 40 mg PO QHS [facility] Enoxaparin Sodium (Lovenox) 40 mg SC DAILY [facility] Last Admin: 04/20/19 09:07 Dose: 40 mg Documented by: Fluoxetine HCl (Prozac) 60 mg PO DAILY [facility] Last Admin: 04/20/19 09:07 Dose: 60 mg Documented by: Gabapentin (Neurontin) 800 mg PO 4X/DAY [facility] Last Admin: 04/20/19 09:06 Dose: 800 mg Documented by: Glucagon () 1 mg IM .X1 PRN PRN Reason: Hypoglycemia Dextrose (Dextrose 10%-Water) 250 mls @ 999 mls/hr IV .Q16M PRN; Protocol PRN Reason: HYPOGLYCEMIA Sodium Chloride () 250 mls @ 15 mls/hr IV .[id number] PRN PRN Reason: Saline Flush Sodium Chloride () 250 mls @ 15 mls/hr IV .[id number] PRN PRN Reason: Additional IVPB Infusion Insulin Human Lispro (Humalog Kwikpen (Bkc)) 0 unit SC ACHS [facility]; Protocol Last Admin: 04/20/19 11:37 Dose: Not Given Documented by: Insulin Human Lispro (Humalog Kwikpen (Bkc)) 30 unit SC TIDCM [facility] Last Admin: 04/20/19 11:38 Dose: Not Given Documented by: Insulin Human NPH (Humulin N (Bkc)) 52 units SC BID [facility] Last Admin: 04/20/19 09:05 Dose: 52 units Documented by: Labetalol HCl (Trandate) 10 mg IV Q10M PRN PRN Reason: MAINTAIN BP < 220/120 Naproxen (Naprosyn) 500 mg PO BID [facility] Last Admin: 04/20/19 09:06 Dose: 500 mg Documented by: Ondansetron HCl (Zofran) 4 mg IV Q8H PRN PRN PRN Reason: NAUSEA/VOMITING Last Admin: 04/20/19 11:36 Dose: 4 mg Documented by: Oxycodone HCl (Oxyir) 5 mg PO TID [facility] Last Admin: 04/20/19 05:54 Dose: 5 mg Documented by: Pantoprazole Sodium (Protonix) 40 mg PO DAILY [facility] Last Admin: 04/20/19 09:07 Dose: 40 mg Documented by: Sodium Chloride () 10 - 40 ml IV UD PRN PRN Reason: SALINE FLUSH Last Admin: 04/20/19 11:36 Dose: 10 ml Documented by: Discharge Diet: 1800 Calorie Control Diet Discharge Activity: Return to Normal Activity Call your doctor if you observe: - - slurred speech. unilateral weakness. Home Medications: Medications to take at Discharge Losartan Potassium [Cozaar] 100 mg PO DAILY 06/05/16 Triamterene/Hydrochlorothiazid [Triamterene-Hctz 37.5-25 mg Cp] 1 each PO DAILY 03/24/17 Gabapentin [Neurontin] 800 mg PO 4X/DAY 08/18/17 Insulin NPH Human Isophane [Novolin N] 52 unit SQ BID 08/18/17 Insulin Lispro [Humalog KwikPen] 30 unit SC TIDCM 10/31/17 Atorvastatin Calcium [Lipitor] 40 mg PO QHS #30 tab 12/12/17 Fluoxetine [Prozac] 60 mg PO DAILY #90 capsule 12/12/17 Pantoprazole Sodium 40 mg PO DAILY #30 tablet. 12/22/17 Naproxen 500 mg PO BID 04/19/19 Oxycodone HCl/Acetaminophen [Oxycodone-Acetaminophen 10-325] 1 ea PO TID 04/19/19 Mineral Oil/Petrolatum Cr [Aquaphor] 1 applic TOPICAL DAILY PRN #1 bottle 04/20/19 Following Prescrptions Were Given to Patient: Mineral Oil/Petrolatum Cr [Aquaphor] 1 applic TOPICAL DAILY PRN #1 bottle PRN Reason: dermatitis Primary Care Physician: Orion Cordova [Primary Care Provider] - Within 2 Weeks Please Follow Up With: Oziel Kent MD - Pulmonary for sleep study When: 1-2 months Disposition: Home Medical Necessity - Tobacco Use Smoking Status: Former smoker Meaningful Use Info Meaningful Use Diagnoses (Choose all that apply): None applicable Code Visit OBSV E&M: 02552 Observation care discharge
--- NOTE | 2019-04-20 12:44 | CASEMGMT ---
SW did not complete a PHQ 9 with patient as per physician he did not have a Stroke or TIA. Julia BUTTERFIELD MSW
== END 2019-04-20 12:03 | disposition home or self-care (01) ==
LOC: ED 21:16 → PCU 22:23
PROVIDERS: Admitting Provider Hospitalist; Emergency Provider Emergency Medicine; PCP Family Medicine
DX: R41.82 Altered mental status, unspecified (principal); R20.0 Anesthesia of skin; E11.65 Type 2 diabetes mellitus with hyperglycemia; I10 Essential (primary) hypertension; E78.5 Hyperlipidemia, unspecified; E11.51 Type 2 diabetes mellitus with diabetic peripheral angiopathy without gangrene; E11.69 Type 2 diabetes mellitus with other specified complication; M86.60 Other chronic osteomyelitis, unspecified site; E11.610 Type 2 diabetes mellitus with diabetic neuropathic arthropathy; E11.42 Type 2 diabetes mellitus with diabetic polyneuropathy; R47.81 Slurred speech; E66.01 Morbid (severe) obesity due to excess calories; G47.33 Obstructive sleep apnea (adult) (pediatric); G89.4 Chronic pain syndrome; F32.9 Major depressive disorder, single episode, unspecified; Z68.41 Body mass index [BMI] 40.0-44.9, adult; Z71.3 Dietary counseling and surveillance; Z79.4 Long term (current) use of insulin; Z79.899 Other long term (current) drug therapy; Z87.891 Personal history of nicotine dependence; Z86.14 Personal history of Methicillin resistant Staphylococcus aureus infection; Z91.14 Patient's other noncompliance with medication regimen; Z89.431 Acquired absence of right foot; Z89.512 Acquired absence of left leg below knee
CPT/HCPCS: 36415; 70450; 70496; 70498; 70551; 71045; 80048; 80053; 80061; 81001; 82962; 83036; 83605; 84484; 85025; 87804; 93005; 93306; 96361; 96372; 96374; 97162; 97166; 99218; 99285; J7030; Q9957; Q9967; A4216; C8929; G0378; J2405

== ENCOUNTER → 2021-02-15 | Outpatient (CLI) | payer MEDICARE, SELFPAY | END | disposition home or self-care (01) | PROVIDERS: PCP Family Medicine; Visit Provider Physician Assistant Medical | DX: Z11.52 Encounter for screening for COVID-19 (principal) | CPT/HCPCS: 87635; U0003; U0005 ==

== ENCOUNTER → 2023-06-02 06:20 | Outpatient (REF) | payer MEDICARE, SELFPAY ==
[2023-06-02 09:49] LABS: Absolute Lymphocyte Count 1.75 X10^3/uL (0.83-4.51); Absolute Neutrophil Count 3.5 X10^3/uL (2.0-7.7); Basophil# 0.05 X10^3/uL; Basophil% 0.8 % (0-1); Eosinophil# 0.27 X10^3/uL; Eosinophils% 4.4 % (0-5); Hematocrit 35.4 % (40-54); Hemoglobin 11.6 g/dL (13.0-16.5); Lymphocyte # 1.75 X10^3/ul (0.83-4.51); Lymphocyte % 28.4 % (19-41); Mean Corp Hgb Conc 32.8 g/dL (32-36); Mean Corpuscular Hgb 29.6 pg (27.0-32.0); Mean Corpuscular Volume 90.3 fL (80-94); Mean Platelet Vol. 9.4 fl (6.2-12.0); Monocyte% 9.7 % (0-10); NRBC Flagged by Analyzer 0 % (0-5); Neutrophil # 3.47 X10^3/uL (2.7-7.7); Neutrophil % 56.4 % (47-70); Platelet Count 292 K/mm3 (150-450); RBC Distribution Width SD 42.1 fl (35.1-43.9); Red Blood Count 3.92 M/mm3 (4.6-6.2); White Blood Count 6.2 K/mm3 (4.4-11.0)
[2023-06-02 10:01] LABS: ALB/GLOB Ratio 1.1 RATIO (0.9-2.4); AST(SGOT) 26 U/L (15-37); Alanine Aminotransfer ALT/SGPT 28 U/L (16-61); Albumin, Serum 3.5 g/dL (3.2-5.0); Alkaline Phosphatase 75 U/L (45-117); Anion Gap 6 (5-15); BUN 17 mg/dL (7-18); BUN/Creat Ratio 14.8 RATIO (10-20); Chloride 103 mmol/L (98-107); Creatinine, Serum 1.15 mg/dL (0.70-1.30); EST Glomerular Filtration Rate 67 mL/min (>60); Est Glom Filt Rate - Afr Amer 82 mL/min (>60); Globulin 3.3 g/dL (2.2-4.2); Glucose 152 mg/dL (74-106); Potassium 3.5 mmol/L (3.5-5.1); Protein, Total 6.8 g/dL (6.4-8.2); Sodium Level 137 mmol/L (136-145)
== END ==
LOC: OLS.SANC 06:20
PROVIDERS: PCP Family Medicine; Visit Provider Internal Medicine
DX: Z79.899 Other long term (current) drug therapy (principal); E11.9 Type 2 diabetes mellitus without complications
CPT/HCPCS: 36415; 80053; 85025

== ENCOUNTER → 2024-12-13 05:40 | Outpatient (REF) | payer MEDICARE, SELFPAY ==
[2024-12-13 08:28] LABS: Mucous, Urine 0 SEEN /hpf (<or=2+); Red Blood Cells-Urine 0 SEEN /hpf (0-5)
[2024-12-13 08:46] LABS: Color, Urine Yellow (Yellow); Glucose, Dipstick Normal (Normal); Ketone-Dipstick Negative (Negative); Leukocyte Esterase-Dipstick Negative /ul (Negative); Nitrite-Dipstick Negative (Negative); Occult Blood-Urine Negative /ul (Negative); Protein-Dipstick 15 mg/dl (Negative); Specific Gravity, Urine 1.010 (1.002-1.030); Urine Bilirubin Dipstick Negative (Negative)
[2024-12-13 08:52] LABS: Squamous Epithelial Cells - UA 0-5 SEEN /hpf (0-5)
[2024-12-13 08:56] LABS: Hematocrit 25.5 % (40-54); Hemoglobin 8.4 g/dL (13.0-16.5); Mean Corp Hgb Conc 32.9 g/dL (32-36); Mean Corpuscular Volume 92.4 fL (80-94); Mean Platelet Vol. 9.0 fl (6.2-12.0); Platelet Count 278 K/mm3 (150-450); RBC Distribution Width CV 12.6 % (11.6-14.6); RBC Distribution Width SD 42.5 fl (35.1-43.9); Red Blood Count 2.76 M/mm3 (4.6-6.2); White Blood Count 6.9 K/mm3 (4.4-11.0)
[2024-12-13 09:11] LABS: AST(SGOT) 34 U/L (<=37); Alanine Aminotransfer ALT/SGPT 15 U/L (<=46); Albumin, Serum 3.5 g/dL (3.4-4.8); Alkaline Phosphatase 70 U/L (40-129); Anion Gap 10 (5-15); BUN 19 mg/dL (4-19); BUN/Creat Ratio 19.4 RATIO (10-20); Calcium,Total 9.1 mg/dL (7.6-11.0); Carbon Dioxide 27.5 mmol/L (21.0-32.0); Chloride 100 mmol/L (98-108); Globulin 2.6 g/dL (2.2-4.2); Glucose 147 mg/dL (70-99); Potassium 4.0 mmol/L (3.3-5.1)
== END ==
LOC: OLS.SANC 05:40
PROVIDERS: PCP Family Medicine; Visit Provider Internal Medicine
DX: N39.0 Urinary tract infection, site not specified (principal); E11.9 Type 2 diabetes mellitus without complications; E78.5 Hyperlipidemia, unspecified
CPT/HCPCS: 80053; 81001; 85027; 87086

== ENCOUNTER → 2024-12-16 05:00 | Outpatient (REF) | payer MEDICARE, SELFPAY ==
[2024-12-16 09:18] LABS: Hematocrit 27.7 % (40-54); Hemoglobin 9.0 g/dL (13.0-16.5); Mean Corp Hgb Conc 32.5 g/dL (32-36); Mean Corpuscular Volume 92.3 fL (80-94); Mean Platelet Vol. 8.7 fl (6.2-12.0); Platelet Count 348 K/mm3 (150-450); RBC Distribution Width CV 12.6 % (11.6-14.6); RBC Distribution Width SD 42.3 fl (35.1-43.9); Red Blood Count 3.00 M/mm3 (4.6-6.2); White Blood Count 7.1 K/mm3 (4.4-11.0)
[2024-12-16 09:32] LABS: Anion Gap 11 (5-15); BUN 23 mg/dL (4-19); BUN/Creat Ratio 16.0 RATIO (10-20); Calcium,Total 9.3 mg/dL (7.6-11.0); Carbon Dioxide 28.1 mmol/L (21.0-32.0); Chloride 96 mmol/L (98-108); Glucose 103 mg/dL (70-99); Potassium 4.0 mmol/L (3.3-5.1)
== END ==
LOC: OLS.SANC 05:00
PROVIDERS: PCP Family Medicine; Visit Provider Internal Medicine
DX: E11.9 Type 2 diabetes mellitus without complications (principal); E78.5 Hyperlipidemia, unspecified
CPT/HCPCS: 36415; 80048; 85027

== ENCOUNTER → 2024-12-16 20:20 | Outpatient (REF) | payer MEDICARE, SELFPAY ==
[2024-12-17 07:24] LABS: Mucous, Urine 0 SEEN /hpf (<or=2+); Red Blood Cells-Urine 0 SEEN /hpf (0-5)
[2024-12-17 07:43] LABS: Color, Urine Yellow (Yellow); Glucose, Dipstick Normal (Normal); Ketone-Dipstick Negative (Negative); Leukocyte Esterase-Dipstick Negative /ul (Negative); Nitrite-Dipstick Negative (Negative); Occult Blood-Urine Negative /ul (Negative); Protein-Dipstick 15 mg/dl (Negative); Specific Gravity, Urine 1.015 (1.002-1.030); Urine Bilirubin Dipstick Negative (Negative)
[2024-12-17 07:58] LABS: Squamous Epithelial Cells - UA 0-5 SEEN /hpf (0-5)
== END ==
LOC: OLS.SANC 20:20
PROVIDERS: PCP Family Medicine; Visit Provider Internal Medicine
DX: N39.0 Urinary tract infection, site not specified (principal)
CPT/HCPCS: 81001; 87086

== ENCOUNTER → 2024-12-20 04:00 | Outpatient (REF) | payer MEDICARE, SELFPAY ==
[2024-12-20 08:46] LABS: Hematocrit 27.3 % (40-54); Hemoglobin 9.0 g/dL (13.0-16.5); Mean Corp Hgb Conc 33.0 g/dL (32-36); Mean Corpuscular Volume 92.2 fL (80-94); Mean Platelet Vol. 9.1 fl (6.2-12.0); Platelet Count 401 K/mm3 (150-450); RBC Distribution Width CV 12.7 % (11.6-14.6); RBC Distribution Width SD 42.3 fl (35.1-43.9); Red Blood Count 2.96 M/mm3 (4.6-6.2); White Blood Count 8.2 K/mm3 (4.4-11.0)
[2024-12-20 09:05] LABS: Anion Gap 13 (5-15); BUN 43 mg/dL (4-19); BUN/Creat Ratio 25.6 RATIO (10-20); Calcium,Total 9.5 mg/dL (7.6-11.0); Carbon Dioxide 24.5 mmol/L (21.0-32.0); Chloride 96 mmol/L (98-108); Glucose 127 mg/dL (70-99); Potassium 4.3 mmol/L (3.3-5.1)
== END ==
LOC: OLS.SANC 04:00
PROVIDERS: PCP Family Medicine; Referring Provider Internal Medicine; Visit Provider Internal Medicine
DX: I12.9 Hypertensive chronic kidney disease with stage 1 through stage 4 chronic kidney disease, or unspecified chronic kidney disease (principal); E11.22 Type 2 diabetes mellitus with diabetic chronic kidney disease; N18.31 Chronic kidney disease, stage 3a; E78.5 Hyperlipidemia, unspecified
CPT/HCPCS: 36415; 80048; 85027

== ENCOUNTER → 2024-12-27 | Outpatient (REF) | payer MEDICARE, SELFPAY ==
[2024-12-27 07:41] LABS: Hematocrit 31.1 % (40-54); Hemoglobin 9.9 g/dL (13.0-16.5); Mean Corp Hgb Conc 31.8 g/dL (32-36); Mean Corpuscular Volume 94.2 fL (80-94); Mean Platelet Vol. 9.1 fl (6.2-12.0); Platelet Count 447 K/mm3 (150-450); RBC Distribution Width CV 12.7 % (11.6-14.6); RBC Distribution Width SD 43.7 fl (35.1-43.9); Red Blood Count 3.30 M/mm3 (4.6-6.2); White Blood Count 7.3 K/mm3 (4.4-11.0)
[2024-12-27 08:04] LABS: Anion Gap 11 (5-15); BUN 24 mg/dL (4-19); BUN/Creat Ratio 21.9 RATIO (10-20); Calcium,Total 9.6 mg/dL (7.6-11.0); Carbon Dioxide 26.7 mmol/L (21.0-32.0); Chloride 100 mmol/L (98-108); Glucose 99 mg/dL (70-99); PSA,Total - Annual Screen 2.64 ng/mL (0.02-4.00); Potassium 4.4 mmol/L (3.3-5.1)
== END ==
LOC: OLS.SANC 05:00
PROVIDERS: PCP Family Medicine; Visit Provider Internal Medicine
DX: E11.22 Type 2 diabetes mellitus with diabetic chronic kidney disease (principal); E78.5 Hyperlipidemia, unspecified; N18.31 Chronic kidney disease, stage 3a; Z12.5 Encounter for screening for malignant neoplasm of prostate
CPT/HCPCS: 36415; 80048; 84153; 85027; G0103